=== PATIENT | female | born 1965 | race Caucasian/White ===

== ENCOUNTER 2020-07-30 09:06 | Observation (INO) | payer MEDICAID, SELFPAY ==
[2020-07-30] VITALS (8 sets, daily range): BP systolic 132–158; BP diastolic 55–71; PULSE 69–84; RESP 14–18; TEMP 36.7–36.9; O2SAT 92–98; BMI 31.3; BMI 30.4; BMI 30.5
--- NOTE | 2020-07-30 09:15 | RAD_ITS ---
STUDY: X-RAY - LEFT FOOT CLINICAL: Female, 55 years old. LEFT ANKLE INJURY FROM LAST NIGHT. TECHNIQUE: 3 view(s) of the foot. COMPARISON: None. FINDINGS: Normal talus, calcaneus, and tarsal bones. Normal visualized subtalar, talonavicular, calcaneocuboid, tarsal and tarsometatarsal articulations. Normal metatarsi. Normal metatarsophalangeal joint of the great toe. Normal tibial and fibular sesamoid bones. Normal interphalangeal joint of the great toe. Normal phalanges of the great toe. Normal second through fifth metatarsophalangeal joints. Normal interphalangeal joints and phalanges of the lesser toes. The soft tissue structures are unremarkable. RAD/Foot min 3 Views IMPRESSION: Normal x-ray examination of the foot. Electronically Signed: Esteban Ellison MD at 10:34 EDT Tel , Service support ,
--- NOTE | 2020-07-30 09:15 | RAD_ITS ---
STUDY: X-RAY - LEFT ANKLE REASON FOR EXAM: Female, 55 years old. LEFT ANKLE INJURY FROM LAST NIGHT. TECHNIQUE: 3 view(s) of the ankle. COMPARISON: None. FINDINGS: Acute nondisplaced oblique fracture the distal left fibula the level tibial plafond with surrounding soft tissue swelling. Acute distracted fracture of the medial malleolus the tibia. Normal tibiotalar articulation and ankle mortise. Normal visualized talus and calcaneus. The visualized subtalar, talonavicular, calcaneocuboid and tarsal articulations are normal. The soft tissue structures are unremarkable. RAD/Ankle min 3 Views IMPRESSION: Acute fractures of the distal left fibula the tibial plafond and the medial malleolus the tibia. Electronically Signed: Esteban Ellison MD at 10:35 EDT Tel , Service support ,
--- NOTE | 2020-07-30 10:47 | ED.VISSUMM ---
"- ER Visit Summary Date of Service: 07/30/20 Chief Complaint: [] History of Present Illness: The patient is a 55 F [] Physical Examination: [] Test Results: [] Emergency Department Course and Treatment: [] Treatment Plan: [] Disposition: [] Impression: [] This note was generated with [employer] dictation software. It may contain incorrect words, spelling, and punctuation that were not noted in review of the chart prior to signing ED Disposition - Plan for ED Patient: Referrals: Geovani Mancia MD [Primary Care Provider] -"
[2020-07-30] MEDS: Morphine 4 MG/ML Syringe IV (11:14)
[2020-07-30] MEDS: Ondansetron 4 MG/2 ML Vial IV (11:15)
--- NOTE | 2020-07-30 11:54 | PCM.HP.STD ---
Problem List (1) COPD Status: Chronic (2) Anxiety and depression Status: Chronic (3) Dyslipidemia Status: Chronic (4) Hypertension Status: Chronic (5) Acute left ankle fracture Status: Acute History of Present Illness Date of Admission: 07/30/20 Chief Complaint: Fall and left ankle fracture The patient is a 55 year old F with history of multiple comorbidities as mentioned above was brought in to ER after she fell down last night and had left ankle injury. She felt her legs gave out and she fell down. She does not remember exact position of her leg or ankle at the time of injury. Complained of severe pain and was given 100 mg IV fentanyl by EMS. In ER she had 4 mg of IV morphine. X-ray shows of left ankle shows acute fracture of distal left fibula and the medial malleolus of ankle but ankle mortise and tibiotalar articulation is intact and normal. Normal x-ray of the foot. Triage her blood pressure was noted high 158/65 but heart rate controlled. Blood work in the ED shows hyponatremia 131 which is chronic as per the patient. She is on carbamazepine and Keppra which can likely cause hyponatremia and SIADH. She was also tested negative for COVID-19 recently in [place] ER when she was evaluated for nausea and mild vomiting and hyponatremia. [] Past Medical History Past Medical History (Chronic Problems): Chronic Problems COPD (Chronic) Anxiety and depression (Chronic) Dyslipidemia (Chronic) Hypertension (Chronic) Allergies cefuroxime [From Ceftin] Allergy (Verified 07/30/20 09:11) Hives bupropion [From Wellbutrin] Adverse Reaction (Verified 07/30/20 09:11) NEEDS FOLLOW-UP SEIZURES codeine Adverse Reaction (Verified 07/30/20 09:11) Upset Stomach cyclobenzaprine [From Flexeril] Adverse Reaction (Verified 07/30/20 09:11) NEEDS FOLLOW-UP SEIZURES risperidone [From Risperdal] Adverse Reaction (Verified 07/30/20 09:11) NEEDS FOLLOW-UP SEIZURES Home Medications: Ambulatory Orders Medication Instructions Recorded Albuterol IH (ProAir) [Proair Hfa] 2 puff INHALATION Q6H PRN PRN 07/30/20 Amlodipine [Norvasc] 10 mg PO DAILY 07/30/20 Atorvastatin Calcium [Lipitor] 80 mg PO DAILY 07/30/20 Carbamazepine [Tegretol] 200 mg PO BID 07/30/20 Cyanocobalamin (Vitamin B-12) 1,000 mcg PO DAILY 07/30/20 [Vitamin B-12] Ergocalciferol [Vitamin D] 50,000 unit PO QWEEK 07/30/20 Escitalopram Oxalate [Lexapro] 20 mg PO DAILY 07/30/20 Fluticasone/Salmeterol [Advair 1 puff INHALATION BID 07/30/20 250-50 Diskus] Hydroxyzine Pamoate 25 mg PO DAILY 07/30/20 Ipratropium/Albuterol Sulfate 3 ml INHALATION Q6H PRN PRN 07/30/20 [Duoneb] Levetiracetam [Keppra] 1,000 mg PO BID 07/30/20 Lisinopril [Zestril] 10 mg PO BID 07/30/20 Omeprazole 40 mg PO BID 07/30/20 Perphenazine 2 mg PO QHS 07/30/20 Smoking Status: Current every day smoker - since teen age, 12 years of age. - *Family History Paternal History Items: No pertinent history Review of Systems Constitutional: Denies: Chills, Fever, Weight Change HEENT: Denies: Head Aches, Sinus Congestion, Sinus Drainage Cardiovascular: Denies: Chest Pain, Palpitations Respiratory: Denies: Cough, Shortness of breath at rest, Sputum production Gastrointestinal: Denies: Abdominal Pain, Nausea, Vomiting Genitourinary: Denies: Dysuria Musculoskeletal: Reports: Back Pain, Joint Pain. Denies: Joint Tenderness Skin: Denies: Rash, Wounds Neurological: Reports: Balance problems - Chronic balance problem after back surgery, Incoordination. Denies: Focal weakness, Numbness, Tingling Psychiatric: Denies: Anxiety, Depression, Homicidal Ideations, Suicidal Ideations Hematologic/ Lymphatic: Denies: Easy Bruising, Easy Bleeding VTE Information - Inpt Only VTE Present on Admission: No VTE Mechan Device Prophylaxis: None VTE Pharm Prophylaxis ordered?: Yes Patient Problems: Active and Suspected Problems Acute left ankle fracture (Acute) - Physical Exam Vitals/I&O's: Vital Signs Temp Pulse Resp BP Pulse Ox 98.5 F 73 18 158/65 H 98 07/30/20 09:07 07/30/20 09:07 07/30/20 09:07 07/30/20 09:07 07/30/20 09:07 Weight: 160 lb 7.944 oz Body Mass Index (BMI) 31.3 General: Alert, Oriented x3, Cooperative HEENT: Atraumatic, PERRLA, EOMI, Normocephalic Neck: Supple, No JVD, Negative Carotid Bruits Lungs: Clear to auscultation, Normal air movement Cardiovascular: Regular rate, Regular Rhythm, Normal S1, Normal S2, No murmurs Abdomen: Bowel Sounds Present, Soft, Non Tender, Non-Distended, - - : No suprapubic or bilateral renal angle tenderness. Denies dysuria or new lower urinary tract symptoms. Chronic stress incontinence Extremities: No edema, Capillary Refill Less than 3 Seconds Skin: No rashes, No breakdown Musculoskeletal: Arthritic Changes, Tenderness - Tenderness and swelling of left ankle region. Jimmy wrap bandage applied, - - Status post 3 lumbar spine surgery with a spinal fusion Neurological: Cranial nerves II-XII grossly intact Psych/Mental Status: Normal Affect, Appropriate Assessment/Plan All Active Problems Acute left ankle fracture (Acute) The patient is a 55 year old F with history of multiple comorbidities as mentioned above was brought in to ER after she fell down last night and had left ankle injury and diagnosed acute fracture left distal fibula as per the x-ray. 1. Acute fracture of left distal fibula and medial malleolus of ankle most likely pathological from osteoporosis with trivial fall: Patient is being admitted on MedSurg floor. IV fluid normal saline. Pain control. ER physician talked to Dr. Nelson and he said she will be seen by animal control specialist Dr. Jose Chopra. Further care as per animal control specialist. 2. Hypertension: Blood pressure was elevated in ER probably secondary to pain but currently is controlled at 132/66. Continue lisinopril 3. Dyslipidemia: On atorvastatin 80 mg daily. 4. COPD: Patient never had PFT but carries a diagnosis of COPD from PCP. She is on Advair and DuoNeb nebulization at home. Does not use oxygen or BiPAP machine. 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 5. 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 Fluid restriction to 1500 mL. 6. Chronic seizure disorder, exact type, severity and duration unclear: Continue carbamazepine and Keppra. 7. Anxiety/depression, bipolar disorder: Patient is on perphenazine, hydroxyzine VTE prophylaxis: Lovenox 40 mg subcu daily Living will/advanced directive/end of life care: Patient does not have living will or advanced directive. After discussion of procedures involved with full code, DNR CC arrest and DNR CC, the patient opted for full code. Patient does want artificial life support including intubation, tube feed, ventilator and/chest compression, central venous catheter, vasopressor and DC shock if needed Full code. Total time spent in [id number] encounter in discussion of advanced directive 16 minutes. Clinical Impression(s) from Imaging Studies Ankle X-Ray 07/30/20 09:15 IMPRESSION: Acute fractures of the distal left fibula the tibial plafond and the medial malleolus the tibia. Foot X-Ray 07/30/20 09:15 IMPRESSION: Normal x-ray examination of the foot. Inpatient E&M: 50283 Init Hosp L3 Procedures: 15838 Advncd Care Plan 30 Min
[2020-07-30 12:16] LABS: Absolute Lymphocyte Count 2.37 X10^3/uL (0.83-4.51); Absolute Neutrophil Count 6.4 X10^3/uL (2.0-7.7); Basophil# 0.03 X10^3/uL; Basophil% 0.3 % (0-1); Eosinophil# 0.05 X10^3/uL; Eosinophils% 0.5 % (0-5); Hematocrit 36.1 % (37-47); Hemoglobin 12.4 g/dL (12.0-15.0); Lymphocyte # 2.37 X10^3/ul (4.0); Lymphocyte % 25.1 % (19-41); Mean Corp Hgb Conc 34.3 g/dL (32-36); Mean Corpuscular Hgb 34.4 pg (27.0-32.0); Mean Corpuscular Volume 100.3 fL (81-99); Mean Platelet Vol. 8.9 fl (6.2-12.0); Monocyte# 0.54 X10^3/uL; Monocyte% 5.7 % (0-10); NRBC Flagged by Analyzer 0 % (0-5); Neutrophil # 6.42 X10^3/uL (2.7-7.7); Platelet Count 220 K/mm3 (150-450); RBC Distribution Width CV 11.8 % (11.6-14.6); RBC Distribution Width SD 43.5 fl (35.1-43.9); White Blood Count 9.5 K/mm3 (4.4-11.0)
[2020-07-30 12:30] LABS: Anion Gap 5 (5-15); BUN 8 mg/dL (7-18); BUN/Creat Ratio 16.2 RATIO (10-20); Calcium,Total 8.5 mg/dL (8.5-10.1); Chloride 100 mmol/L (98-107); EST Glomerular Filtration Rate 137 mL/min (>60); Est Glom Filt Rate - Afr Amer 165 mL/min (>60); Estimated Creatinine Clearance 89.17 ml/min; Glucose 87 mg/dL (74-106); Magnesium 1.8 mg/dL (1.6-2.6); Potassium 3.8 mmol/L (3.5-5.1); Sodium Level 131 mmol/L (136-145)
[2020-07-30] MEDS: oxyCODONE 5 MG Tablet PO ×2 (13:09→17:00)
[2020-07-30] MEDS: 0.9% Normal Saline 1,000 ML 75 ML IV (13:39)
[2020-07-30] MEDS: Enoxaparin 40 MG/0.4 ML Syringe SC (13:42)
[2020-07-30] MEDS: 0.9% Saline Lock 10 ML Syringe IV (13:43)
--- NOTE | 2020-07-30 15:11 | CT_ITS ---
CT of the left ankle without contrast INDICATION: Ankle injury, ankle pain, trimalleolar fracture. COMPARISON: X-ray 07/30/2020 TECHNIQUE: Multiple thin section axial CT images of the left ankle were obtained without the ministration of intravenous contrast and filmed in soft tissue and bone windows. Furthermore, multiple sagittal and coronal reconstructions were performed. Dose limiting techniques were utilized. No abnormal soft tissue mass, lymphadenopathy, fluid collection. Lateral soft tissue swelling. Slight lateral subluxation of the tibiotalar joint with an acute slightly laterally displaced oblique fracture of the distal fibula at the level tibial plafond and an acute slightly laterally displaced transverse fractures of the medial malleolus the tibia. Associated nondisplaced oblique fracture through the posterior malleolus the tibia. IMPRESSION: Trimalleolar fracture as described above. Electronically Signed: Esteban Ellison MD at 17:04 EDT Tel , Service support , CT/Extremity Lower without Contra
--- NOTE | 2020-07-30 15:14 | PCM.CONS.GEN ---
Reason for Consult Date of Consultation: 07/30/20 Reason for Consultation: Left ankle trimalleolar fracture History of Present Illness: The patient is a 55 year old F with past medical history significant of COPD, hypertension, hyperlipidemia, anxiety, who was at home on the evening of July 29, 2020. Unfortunately, patient states that she does have a history of losing her balance and falling. Patient did lose her balance and fall, twisting her left ankle. Patient states that while she was on the ground, she did not notice any pain in her left ankle. Patient did not lose consciousness, and did not hit her head. As patient was attempting to get up, she placed weight on her left ankle. At that time, she heard a crack , and felt immediate pain in her left ankle. Patient did not notice a deformity of her left ankle at that time. Patient was unable to bear weight due to the pain. Patient remained nonweightbearing, but stayed home to see if her symptoms would improve. Upon waking up in the morning today, July 30, 2020, patient noticed increased pain of her left ankle, and was unable to bear weight. She was then brought to the emergency department by her . At that time, x-rays were taken, revealing a left ankle fracture. A reduction was performed in the emergency department at that time, patient was placed in a posterior splint. Patient was then admitted for further evaluation. I was then consulted for evaluation of the left ankle and furthering of treatment plan. [] Past Medical History Past Medical History (Chronic Problems): Chronic Problems COPD (Chronic) Anxiety and depression (Chronic) Dyslipidemia (Chronic) Hypertension (Chronic) Allergies cefuroxime [From Ceftin] Allergy (Verified 07/30/20 09:11) Hives bupropion [From Wellbutrin] Adverse Reaction (Verified 07/30/20 09:11) NEEDS FOLLOW-UP SEIZURES codeine Adverse Reaction (Verified 07/30/20 09:11) Upset Stomach cyclobenzaprine [From Flexeril] Adverse Reaction (Verified 07/30/20 09:11) NEEDS FOLLOW-UP SEIZURES risperidone [From Risperdal] Adverse Reaction (Verified 07/30/20 09:11) NEEDS FOLLOW-UP SEIZURES Home Medications: Ambulatory Orders Medication Instructions Recorded Albuterol IH (ProAir) [Proair Hfa] 2 puff INHALATION Q6H PRN PRN 07/30/20 Amlodipine [Norvasc] 10 mg PO DAILY 07/30/20 Atorvastatin Calcium [Lipitor] 80 mg PO DAILY 07/30/20 Carbamazepine [Tegretol] 200 mg PO BID 07/30/20 Cyanocobalamin (Vitamin B-12) 1,000 mcg PO DAILY 07/30/20 [Vitamin B-12] Ergocalciferol [Vitamin D] 50,000 unit PO QWEEK 07/30/20 Escitalopram Oxalate [Lexapro] 20 mg PO DAILY 07/30/20 Fluticasone/Salmeterol [Advair 1 puff INHALATION BID 07/30/20 250-50 Diskus] Hydroxyzine Pamoate 25 mg PO DAILY 07/30/20 Ipratropium/Albuterol Sulfate 3 ml INHALATION Q6H PRN PRN 07/30/20 [Duoneb] Levetiracetam [Keppra] 1,000 mg PO BID 07/30/20 Lisinopril [Zestril] 10 mg PO BID 07/30/20 Omeprazole 40 mg PO BID 07/30/20 Perphenazine 2 mg PO QHS 07/30/20 Psychiatric History: Anxiety Lives: Spouse/ Significant Other Smoking Status: Heavy Smoker (>10/day) - smokes 1 pack per day for 43 years Alcohol: Occasional Drugs: None Review of Systems Constitutional: Denies: Anorexia, Chills, Fever, Night Sweats Eyes: Denies: Blurred vision, Cataracts HEENT: Denies: Difficulty Hearing, Difficulty Swallowing Cardiovascular: Denies: Chest Pain, Chest Pressure Respiratory: Reports: Cough, Shortness of breath upon exertion. Denies: Hemoptysis, Shortness of Breath, Shortness of breath at rest Gastrointestinal: Denies: Abdominal Pain, Constipation Genitourinary: Denies: Dysuria, Frequency Musculoskeletal: Reports: Joint Pain - admits to left ankle pain and swelling Skin: Denies: Dryness, Jaundice Neurological: Reports: Balance problems Psychiatric: Reports: Anxiety Endocrine: Denies: Change in Body Habitus, Heat/ Cold Intolerance, Polydipsia, Polyuria Patient Problems: Active and Suspected Problems Acute left ankle fracture (Acute) Subjective: Patient seen at bedside at this time. Patient admits to pain in left ankle, controlled by medications. Patient denies any other acute complaints at this time. Patient denies any other areas of bodily injury. Currently, patient denies fever, chills, nausea, vomiting, shortness of breath, chest pain. Patient denies left calf pain. Objective: Lower extremity physical exam: Dressing and splint are clean, dry, intact to the left lower extremity. Foot and ankle appear in a rectus position underneath the tibia at this time. Vascular: A weakly palpable dorsalis pedis and posterior tibial pulse was present of the left lower extremity. Capillary fill time is less than 3 seconds all digits of the left foot. Temperature gradient is within normal limits and comparable to the contralateral side. Significant nonpitting edema noted in the medial lateral aspects of the left ankle starting at the level of the ankle joint extending distally to the dorsal aspect of the midfoot. Loss of skin lines noted. No other areas of edema noted. Dermatological: Skin envelope is intact at this time to the left lower extremity. No evidence of open lesions noted. No evidence of fracture blisters noted. Significant nonpitting edema present. Ecchymosis noted on the medial and lateral aspects of the left ankle. Neurological: Gross and protective sensation is intact to the left lower extremity at this time. Musculoskeletal: Muscle strength was deferred at this time. Foot and ankle appear in a rectus position at this time and underneath the tibia. Negative Homans sign of the left lower extremity. Negative Acosta sign of the left lower extremity. Positive tenderness upon palpation and compression of the lateral aspect of the left ankle in the area of the lateral malleolus. Positive tenderness to palpation and compression of the medial aspect the left ankle near the medial malleolus. Positive tenderness upon palpation and compression of the posterior aspect of the left ankle in the area of the posterior malleolus. Achilles tendon feels intact at this time with no evidence of gapping noted. All tendon groups feel intact at this time. No pain upon palpation and compression of the proximal fibular head and neck. Proximal tibia fibular squeeze test does not elicit pain in the left ankle joint. Positive pain upon palpation and compression of the syndesmosis of the left ankle. No pain upon palpation and compression of the tarsometatarsal joint of the left foot. No pain upon palpation or compression of the styloid process of the fifth metatarsal left foot. Metatarsal phalangeal joint range of motion is intact and pain-free. No pain upon palpation or compression of the left calcaneus. Negative lateral squeeze test of the left calcaneus. No other areas of tenderness noted of the left lower extremity besides the left ankle. - Physical Exam Vitals/I&O's: Vital Signs Temp Pulse Resp BP Pulse Ox 98.5 F 70 16 132/66 H 96 07/30/20 12:35 07/30/20 12:35 07/30/20 13:00 07/30/20 12:35 07/30/20 13:00 Oxygen Delivery Method Room Air Weight: 70.8 kg Body Mass Index (BMI) 30.4 General: Alert, Oriented x3, Cooperative HEENT: Atraumatic, PERRLA Oral: Moist Mucosa Neck: Supple, No JVD Lungs: Clear to auscultation, Normal air movement, No rhonchi, No rales, Wheezes Cardiovascular: Regular rate, Regular Rhythm, Normal S1, Normal S2 Abdomen: Bowel Sounds Present, Soft, Non Tender, Non-Distended Extremities: No Calf Tenderness, Diminished Peripheral Pulses Skin: - - Globe is intact at this time the left lower extremity Musculoskeletal: Tenderness - Upon palpation and compression of the left ankle. Neurological: Sensory exam intact to light touch and pain Psych/Mental Status: Alert and oriented to time, place, person, mood and affect Laboratory Results 07/30/20 12:06: WBC 9.5, RBC 3.60 L, Hgb 12.4, Hct 36.1 L, MCV 100.3 H, MCH 34.4 H, MCHC 34.3, RDW Std Deviation 43.5, RDW Coeff of Sanju 11.8, Plt Count 220, MPV 8.9, Immature Gran % (Auto) 0.400, Neut % (Auto) 68.0, Lymph % (Auto) 25.1, [place] % (Auto) 5.7, Eos % (Auto) 0.5, Baso % (Auto) 0.3, Absolute Neuts (auto) 6.4, Absolute Lymphs (auto) 2.37, Nucleated RBC % 0 07/30/20 12:06: Sodium 131 L, Potassium 3.8, Chloride 100, Carbon Dioxide 26.0, Anion Gap 5, BUN 8, Creatinine 0.50 L, Estim Creat Clear Calc 89.17, Est GFR (MDRD) Af Amer 165, Est GFR (MDRD) Non-Af 137, BUN/Creatinine Ratio 16.2, Glucose 87, Calcium 8.5, Magnesium 1.8 TUDY: X-RAY - LEFT FOOT CLINICAL: Female, 55 years old. LEFT ANKLE INJURY FROM LAST NIGHT. TECHNIQUE: 3 view(s) of the foot. COMPARISON: None. FINDINGS: Normal talus, calcaneus, and tarsal bones. Normal visualized subtalar, talonavicular, calcaneocuboid, tarsal and tarsometatarsal articulations. Normal metatarsi. Normal metatarsophalangeal joint of the great toe. Normal tibial and fibular sesamoid bones. Normal interphalangeal joint of the great toe. Normal phalanges of the great toe. Normal second through fifth metatarsophalangeal joints. Normal interphalangeal joints and phalanges of the lesser toes. The soft tissue structures are unremarkable. RAD/Foot min 3 Views IMPRESSION: Normal x-ray examination of the foot. Electronically Signed: Esteban Ellison MD at 10:34 EDT Tel , Service support , STUDY: X-RAY - LEFT ANKLE REASON FOR EXAM: Female, 55 years old. LEFT ANKLE INJURY FROM LAST NIGHT. TECHNIQUE: 3 view(s) of the ankle. COMPARISON: None. FINDINGS: Acute nondisplaced oblique fracture the distal left fibula the level tibial plafond with surrounding soft tissue swelling. Acute distracted fracture of the medial malleolus the tibia. Normal tibiotalar articulation and ankle mortise. Normal visualized talus and calcaneus. The visualized subtalar, talonavicular, calcaneocuboid and tarsal articulations are normal. The soft tissue structures are unremarkable. RAD/Ankle min 3 Views IMPRESSION: Acute fractures of the distal left fibula the tibial plafond and the medial malleolus the tibia. Electronically Signed: Esteban Ellison MD at 10:35 EDT Tel , Service support , Current Medications Acetaminophen (Tylenol) 650 mg PO Q6H PRN PRN PRN Reason: HEADACHE/FEVER (T>102.5) Al Hydroxide/Mg Hydroxide (Mylanta Ii) 30 ml PO Q6H PRN PRN PRN Reason: Gastric Burning Albuterol Sulfate (Ventolin Aerosols) 2.5 mg INHALATION Q2H PRN PRN PRN Reason: Shortness of Breath/Wheezing Atorvastatin Calcium (Lipitor) 80 mg PO QHS [facility] Enoxaparin Sodium (Lovenox) 40 mg SC DAILY [facility] Last Admin: 07/30/20 13:42 Dose: 40 mg Documented by: Famotidine (Pepcid) 20 mg PO BID [facility] Hydromorphone HCl (Dilaudid Inj) 0.5 mg IV Q4H PRN PRN PRN Reason: Pain Score 6-10 Hydroxyzine Pamoate (Vistaril Pamoate Capsule) 25 mg PO DAILY [facility] Sodium Chloride () 1,000 mls @ 75 mls/hr IV .[id number] [facility] Stop: 07/31/20 01:45 Last Admin: 07/30/20 13:39 Dose: 75 mls/hr Documented by: Ibuprofen (Motrin) 400 mg PO Q4H PRN PRN PRN Reason: Pain Score 1-10/Temp > 100.7 F Nitroglycerin (Nitrostat) 0.4 mg SUBLINGUAL Q5M PRN PRN Reason: CARDIAC/CHEST PAIN Ondansetron HCl (Zofran) 4 mg IV Q8H PRN PRN PRN Reason: NAUSEA/VOMITING Oxycodone HCl (Oxyir) 5 mg PO Q4H PRN PRN PRN Reason: Pain Score 4-5 Last Admin: 07/30/20 13:09 Dose: 5 mg Documented by: Perphenazine (Perphenazine) 2 mg PO DAILY [facility] Prochlorperazine Edisylate (Compazine Iv) 5 mg IV Q4H PRN PRN PRN Reason: Breakthrough nausea/vomiting Sodium Chloride () 10 - 40 ml IV UD PRN PRN Reason: SALINE FLUSH Last Admin: 07/30/20 13:43 Dose: 10 ml Documented by: Assessment/Plan All Active Problems Acute left ankle fracture (Acute) This patient is a 55-year-old female with past medical history significant of COPD, hypertension, hyperlipidemia, anxiety, who presents today with a left ankle trimalleolar fracture. Plan: Patient chart reviewed and patient evaluated. Full discussion had with the patient about the patient's current clinical condition. Radiographs described to the patient in detail. I did discuss with the patient that she does have a significant left ankle injury, including a trimalleolar ankle fracture and likely syndesmosis injury. I discussed these terms in detail along with the nature of her condition. I did discuss to treatment options at this time. Conservative therapy would include nonweightbearing and a below the knee cast. The cast would likely be changed every 2 weeks, for a total of 12 weeks. I discussed the risks and benefits of conservative therapy, including but not limited to delayed or nonhealing bone, DVT, malunion, delayed union, decreased function of limb, continued pain, early onset arthritis. I discussed surgical intervention, which would include an open reduction with internal fixation of the left ankle trimalleolar fracture and left ankle syndesmosis. I discussed the risks and benefits of surgical intervention, including but not limited to delayed or nonhealing wounds, delayed or nonhealing bone, DVT, infection, decreased function of limb, continued pain, damage to surrounding structures, loss of limb, loss of life. All the patient's questions were answered to her satisfaction and all of her concerns were addressed. No guarantees were made as to the outcome of either conservative or surgical interventions. Patient understood all aspects of the treatment options. At this time, due to the injury that is present, I do recommend surgical intervention. I did discuss with the patient that since she is a heavy smoker, she will be an even higher risk of postoperative complications. Patient displayed verbal understanding. At this time, patient is agreeable to surgical intervention. I instructed the patient on smoking cessation and discussed this with her in detail. I did discuss with the patient that she does have significant swelling in her left ankle joint. Due to this, we would have to delay any surgical intervention for up to 2 weeks. Patient displayed verbal understanding. At this time, a CT scan was ordered of her left ankle for preoperative planning. After verbal consent was obtained, a multilayer compressive dressing was placed over the left lower extremity. The posterior splint was reapplied to the left lower extremity and was held utilizing Jimmy bandages. Neurovascular status was assessed at the end of the application and deemed intact to left lower extremity. I would recommend that the patient remain nonweightbearing to the left lower extremity. I do recommend a physical therapy evaluation to assist her in using the walker and crutches. I also discussed with the patient that she may purchase a knee scooter to help her ambulate. I do recommend continued pain medications at this time. I do recommend DVT prophylaxis, which is at the hospitalist's discretion. I usually recommend aspirin 81 mg twice a day when the patient leaves the hospital. I recommend that the dressing to the left lower extremity remain clean, dry, intact and the follow-up with me in the office. I recommend that ice be placed around the left knee 30 minutes every hour as needed and that the patient continue to elevate her left foot above the level of heart heart. I do recommend the patient follow-up with me in the [place] office on August 04. Preoperative EKG and chest x-ray were ordered for the patient to assess her ability to tolerate the anesthesia. I would ask if the hospitalist would assess her blood work, preoperative EKG, and preoperative chest xray, and comment on medical clearance for surgical intervention that would be performed in approximately 2 weeks. Thank you very much to the medical team for managing this patient. No immediate operative intervention is planned at this time. Surgery will be planned when patient visits me in the office if she is discharged by then. If patient is still admitted next week, I will assess her left ankle and decide on the date of operative intervention then. I will continue to follow the patient closely and update accordingly. Thank you very much for the consultation and allowing me to take part in the care of your patient. Multi Select Codes - Visit Charges Office Visit/Consults: [id number] IP Consult L3
--- NOTE | 2020-07-30 17:40 | RAD_ITS ---
STUDY: X-RAY CHEST REASON FOR EXAM: Female, 55 years old. preoperative eval, patient has fractured ankle from fall, to have surgery TECHNIQUE: 2 views COMPARISON: None. FINDINGS: The lungs are clear and expanded. There is no demonstrated pleural abnormality. Normal size heart. Normal mediastinum and michelle. Normal visualized pulmonary arteries. Normal visualized aortic arch and descending thoracic aorta. There are diffuse degenerative changes of the visualized thoracic spine. Anterior spinal fusion hardware at the C7-T1 level. There is no demonstrated abnormality of the visualized soft tissue structures of the upper abdomen. RAD/Chest PA and Lateral IMPRESSION: No acute cardiopulmonary findings. Negative for consolidation, focal atelectasis, pleural effusion or cardiomegaly. Electronically Signed: Saundra Stark MD at 17:58 EDT , Service support ,
[2020-07-30] MEDS: Morphine 2 MG/ML Syringe IV (19:25)
--- NOTE | 2020-07-30 21:05 | CCHN_ITS ---
Hospitalist Note Pain uncontrolled per patient report. 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 Given tolerance history, will increase morphine and oxycodone regimen, add scheduled toradol, add scheduled low dose gabapentin.
--- NOTE | 2020-07-30 21:05 | PCM.HOSP.N ---
Hospitalist Note Pain uncontrolled per patient report. 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 Given tolerance history, will increase morphine and oxycodone regimen, add scheduled toradol, add scheduled low dose gabapentin.
[2020-07-30] MEDS: oxyCODONE 5 MG Tablet 10 MG PO (21:21)
[2020-07-30] MEDS: Pantoprazole Sodium 40 MG Tablet PO (22:23)
[2020-07-30] MEDS: Lisinopril 10 MG Tablet PO (22:25)
[2020-07-30] MEDS: carBAMazepine 200 MG Tablet PO (22:25)
[2020-07-30] MEDS: Ketorolac 30 MG/ML Syringe IV (22:25)
[2020-07-30] MEDS: levETIRAcetam 1,000 MG Tablet 1000 MG PO (22:25)
[2020-07-30] MEDS: Budesonide Respules 0.5 MG/2 ML AMPUL.NEB. INHALATION (22:47)
[2020-07-30] MEDS: Albuterol 2.5 MG/3 ML VIAL.NEB. INHALATION (22:47)
[2020-07-30] MEDS: Morphine 2 MG/ML Syringe 4 MG IV (23:10)
[2020-07-31] MEDS: ALPRAZolam 0.5 MG Tablet 1 MG PO (00:35)
[2020-07-31] MEDS: oxyCODONE 5 MG Tablet 10 MG PO ×2 (03:33→09:23)
[2020-07-31 03:40] VITALS: BP 131/55; PULSE 66; RESP 18; TEMP 37.3; O2SAT 95
[2020-07-31] MEDS: Ketorolac 30 MG/ML Syringe IV ×2 (05:24→13:13)
[2020-07-31] MEDS: Morphine 2 MG/ML Syringe 4 MG IV ×2 (05:58→11:05)
--- NOTE | 2020-07-31 06:00 | EKG12_ITS ---
Test Reason : PRE-OP Blood Pressure : / mmHG Vent. Rate : 058 BPM Atrial Rate : 058 BPM P-R Int : 192 ms QRS Dur : 090 ms QT Int : 402 ms P-R-T Axes : 058 035 037 degrees QTc Int : 394 ms Sinus bradycardia Otherwise normal ECG No previous ECGs available Confirmed by ANIBAL KENT, STEPHEN ([id number]), editorial specialist HELADIO MARIN ([id number]) on 08/05/2020 11:42:28 AM Referred By: DR SALGADO Confirmed By:XAVI BARNETT MD
[2020-07-31] MEDS: Albuterol 2.5 MG/3 ML VIAL.NEB. INHALATION (06:56)
[2020-07-31] MEDS: Budesonide Respules 0.5 MG/2 ML AMPUL.NEB. INHALATION (06:57)
[2020-07-31 07:00] VITALS: PULSE 58; RESP 12; O2SAT 90
[2020-07-31 08:59] LABS: Anion Gap 5 (5-15); BUN 7 mg/dL (7-18); BUN/Creat Ratio 16.4 RATIO (10-20); Calcium,Total 8.6 mg/dL (8.5-10.1); Chloride 108 mmol/L (98-107); Creatinine, Serum 0.43 mg/dL (0.55-1.02); EST Glomerular Filtration Rate 162 mL/min (>60); Est Glom Filt Rate - Afr Amer 195 mL/min (>60); Estimated Creatinine Clearance 103.68 ml/min; Glucose 102 mg/dL (74-106); Potassium 3.3 mmol/L (3.5-5.1); Sodium Level 141 mmol/L (136-145)
[2020-07-31 09:15] LABS: Vitamin B12 829 pg/mL (211-911); Vitamin D,25 Hydroxy 74.1 ng/mL
[2020-07-31 09:16] VITALS: BP 135/61; PULSE 78; RESP 18; TEMP 36.6; O2SAT 100
[2020-07-31] MEDS: Famotidine 20 MG Tablet PO (09:24)
[2020-07-31] MEDS: hydrOXYzine PAM 25 MG Capsule PO (09:24)
[2020-07-31] MEDS: Cyanocobalamin 500 MCG Tablet 1000 MCG PO (09:24)
[2020-07-31] MEDS: Enoxaparin 40 MG/0.4 ML Syringe SC (09:24)
[2020-07-31] MEDS: levETIRAcetam 1,000 MG Tablet 1000 MG PO (09:25)
[2020-07-31] MEDS: Escitalopram Oxalate 20 MG Tablet PO (09:25)
[2020-07-31] MEDS: carBAMazepine 200 MG Tablet PO (09:25)
[2020-07-31] MEDS: amLODIPine 10 MG Tablet PO (09:25)
[2020-07-31] MEDS: Lisinopril 10 MG Tablet PO (09:25)
[2020-07-31] MEDS: Pantoprazole Sodium 40 MG Tablet PO (09:31)
[2020-07-31 10:53] LABS: Phosphorus 4.4 mg/dL (2.5-4.9)
[2020-07-31] MEDS: 0.9% Saline Lock 10 ML Syringe IV ×2 (11:05→13:13)
--- NOTE | 2020-07-31 11:30 | DCINST_ITS ---
- Discharge Diagnoses Current Active Problems: Current Active and Chronic Problems COPD (Chronic) Anxiety and depression (Chronic) Dyslipidemia (Chronic) Hypertension (Chronic) Acute left ankle fracture (Acute) You will use the following diet at home:: Cardiac, Fluid restricted (specify 2000 mls, 1500 mls) - 1500 mL, possible SIADH/isovolumic hyponatremia Your food should be the consistency of: Regular Weight Bearing Status: No weight bearing Call your doctor if you observe: Fever of 101 or Higher, Numbness or Tingling, Change in Color, Inability to urinate, Inability to have a bowel movement, Using more than one pad per hour, Shortness of breath, Dizziness, Fainting spells, Swelling in the ankles, Chest pain, Prolonged hiccoughing, Calf discomfort, Uncontrolled pain Allergies/Adverse Reactions: Allergies cefuroxime [From Ceftin] Allergy (Verified 07/30/20 09:11) Hives bupropion [From Wellbutrin] Adverse Reaction (Verified 07/30/20 09:11) NEEDS FOLLOW-UP SEIZURES codeine Adverse Reaction (Verified 07/30/20 09:11) Upset Stomach cyclobenzaprine [From Flexeril] Adverse Reaction (Verified 07/30/20 09:11) NEEDS FOLLOW-UP SEIZURES risperidone [From Risperdal] Adverse Reaction (Verified 07/30/20 09:11) NEEDS FOLLOW-UP SEIZURES Medications to take at Discharge ALPRAZolam [Xanax] 1 mg PO QHS 07/30/20 Amlodipine [Norvasc] 10 mg PO DAILY 07/30/20 Atorvastatin Calcium [Lipitor] 80 mg PO DAILY 07/30/20 Budesonide/Formoterol 160/4.5 [Symbicort 160/4.5 Mcg Inhaler (SP)] 2 puff INHALATION BID 07/30/20 Carbamazepine [Tegretol] 200 mg PO BID 07/30/20 Cyanocobalamin (Vitamin B-12) [Vitamin B-12] 1,000 mcg PO DAILY 07/30/20 Ergocalciferol [Vitamin D] 50,000 unit PO QWEEK 07/30/20 Escitalopram Oxalate [Lexapro] 20 mg PO DAILY 07/30/20 Hydroxyzine Pamoate 25 mg PO TID 07/30/20 Ipratropium/Albuterol Sulfate [Duoneb] 3 ml INHALATION Q6H PRN PRN 07/30/20 Levetiracetam [Keppra] 1,000 mg PO BID 07/30/20 Lisinopril [Zestril] 10 mg PO BID 07/30/20 Omeprazole 40 mg PO BID 07/30/20 Perphenazine 2 mg PO QHS 07/30/20 Alendronate Sodium [Fosamax] 70 mg PO Q7D@0700 #4 tab 07/31/20 The following prescriptions were given: Alendronate Sodium [Fosamax] 70 mg PO Q7D@0700 #4 tab Transmission Status: Pending to [facility] Primary Care Physician: Geovani Mancia MD [Primary Care Provider] - Please follow up with your Primary Care Physician in: in 2 weeks Test Results: Test results from this visit will be discussed in further detail at your follow- up appointment, if applicable. Please Follow Up With: Jose Chopra DPM When: on Aug 04, 2020 FOR Left ankle fracture
--- NOTE | 2020-07-31 11:35 | PCM.DC.SUM ---
Discharge Date and Diagnosis - Problem List Patient Problems: Active and Suspected Problems Acute left ankle fracture (Acute) Date of Admission: 07/30/20 Date of Discharge: 07/31/20 - Primary Discharge Diagnosis Acute Problems: Active Problems Acute left ankle fracture (Acute) - Secondary Discharge Diagnosis Chronic Problems: Chronic Problems COPD (Chronic) Anxiety and depression (Chronic) Dyslipidemia (Chronic) Hypertension (Chronic) Hospital Course and Treatment Summary of Care Provided: [] The patient is a 55 year old F with history of multiple comorbidities as mentioned above was brought in to ER after she fell down last night and had left ankle injury and diagnosed acute fracture left distal fibula as per the x-ray. 1. Preoperative management of acute fracture of left distal fibula and medial malleolus of ankle most likely pathological from osteoporosis with trivial fall: Patient is being admitted on MedSurg floor. Pain was controlled with oxycodone, morphine and Toradol. I also think she has osteoporosis as she fell from her standing height and fall was trivial therefore clinically osteoporosis. Discussed with Dr. Chopra and he agreed to give prescription for oxycodone. I talked to him and he asked to send someone to collect the prescription at the office. I relayed to the patient and her is going to collect the prescription. She might need long duration of oxycodone for pain control. Twelve-lead EKG was done shows sinus bradycardia at 54 bpm. No significant or specific changes of ST?T waves. Chest x-ray preoperative was done is negative for consolidation, focal atelectasis or pleural effusion or cardiomegaly. Patient has history of COPD and needs preop spirometry, quitting smoking/nicotine. It will be ideal if she follows with account contact associate and gets PFT. Prescription for nicotine sent. She agreed to take Fosamax and denies history of pill esophagitis or dysphagia. Advised to take Fosamax once a week with a full glass of water, 240 ounce and remained upright position for half an hour. Patient is at moderate risk for low risk ankle surgery. Continue medications. Follow-up PCP prior to surgery. 2. Hypertension: Blood pressure is controlled. Continue lisinopril 3. Dyslipidemia: On atorvastatin 80 mg daily. 4. COPD: Patient never had PFT but carries a diagnosis of COPD from PCP. She is on Advair and DuoNeb nebulization at home. Does not use oxygen or BiPAP machine. Does not follow account contact associate. She was advised to follow-up with account contact associate for PFT 5. 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 Fluid restriction to 1500 mL. 6. Chronic seizure disorder, exact type, severity and duration unclear: Continue carbamazepine and Keppra. 7. Anxiety/depression, bipolar disorder: Patient is on perphenazine, hydroxyzine VTE prophylaxis: Lovenox 40 mg subcu daily Discharge medication reconciliation done. Discharge follow-up instructions completed. Discharge process discussed with the patient and all questions were answered to patient's satisfaction. Patient was admitted as inpatient but was discharged because of sooner recovery than expected at time of admission. Total time spent, exact 35 minutes on discharge meds reconciliation, examination, coordination of care with nurses and ancillary staff, review of imaging and blood test and discussion with the patient on follow-up instructions Patient Problems: Active and Suspected Problems Acute left ankle fracture (Acute) Objective: Seen and examined. Patient has pain over left ankle. On nonweightbearing. Patient had possible respiratory arrest after Dilaudid therefore it was discontinued yesterday. Patient pain is controlled on oxycodone, morphine and Toradol. Physical exam General: Alert, Oriented x3, Cooperative HEENT: Atraumatic, PERRLA, EOMI, Normocephalic Neck: Supple, No JVD, Negative Carotid Bruits Lungs: Air entry severely diminished in both lungs. No crepitation/rhonchi. No hypoxia or tachypnea. Cardiovascular: Regular rate, Regular Rhythm, Normal S1, Normal S2, No murmurs Abdomen: Bowel Sounds Present, Soft, Non Tender, Non-Distended, : No suprapubic or bilateral renal angle tenderness. Denies dysuria or new lower urinary tract symptoms. Chronic stress incontinence Extremities: No edema, Capillary Refill Less than 3 Seconds Skin: No rashes, No breakdown Musculoskeletal: Arthritic Changes, Tenderness and swelling of left ankle region. Jimmy wrap bandage applied Back: Status post 3 lumbar spine surgery with a spinal fusion Neurological: Cranial nerves II-XII grossly intact Psych/Mental Status: Normal Affect, Appropriate - Physical Exam Vitals/I&O's: Vital Signs Temp Pulse Resp BP Pulse Ox 97.9 F 78 18 135/61 H 100 07/31/20 09:16 07/31/20 09:16 07/31/20 09:16 07/31/20 09:16 07/31/20 09:16 Oxygen Delivery Method Room Air Weight: 156 lb 1.396 oz Body Mass Index (BMI) 30.4 Intake and Output for Last 24 Hours 07/29/20 07/30/20 07/31/20 23:59 23:59 23:59 Intake Total 1550 / 1550 Output Total 500 / 1300 1000 / 1000 Balance -500 / -1000 550 / 550 Laboratory Results 07/30/20 12:06: WBC 9.5, RBC 3.60 L, Hgb 12.4, Hct 36.1 L, MCV 100.3 H, MCH 34.4 H, MCHC 34.3, RDW Std Deviation 43.5, RDW Coeff of Sanju 11.8, Plt Count 220, MPV 8.9, Immature Gran % (Auto) 0.400, Neut % (Auto) 68.0, Lymph % (Auto) 25.1, Wetzel % (Auto) 5.7, Eos % (Auto) 0.5, Baso % (Auto) 0.3, Absolute Neuts (auto) 6.4, Absolute Lymphs (auto) 2.37, Nucleated RBC % 0 07/30/20 12:06: Sodium 131 L, Potassium 3.8, Chloride 100, Carbon Dioxide 26.0, Anion Gap 5, BUN 8, Creatinine 0.50 L, Estim Creat Clear Calc 89.17, Est GFR (MDRD) Af Amer 165, Est GFR (MDRD) Non-Af 137, BUN/Creatinine Ratio 16.2, Glucose 87, Calcium 8.5, Magnesium 1.8 07/31/20 08:18: Sodium 141, Potassium 3.3 L, Chloride 108 H, Carbon Dioxide 28.0, Anion Gap 5, BUN 7, Creatinine 0.43 L, Estim Creat Clear Calc 103.68, Est GFR (MDRD) Af Amer 195, Est GFR (MDRD) Non-Af 162, BUN/Creatinine Ratio 16.4, Glucose 102, Calcium 8.6 07/31/20 08:18: Vitamin B12 829, Vitamin D 25-Hydroxy 74.1 07/31/20 08:18: Phosphorus 4.4 Current Medications Acetaminophen (Tylenol) 650 mg PO Q6H PRN PRN PRN Reason: HEADACHE/FEVER (T>102.5) Al Hydroxide/Mg Hydroxide (Mylanta Ii) 30 ml PO Q6H PRN PRN PRN Reason: Gastric Burning Albuterol Sulfate (Ventolin Aerosols) 2.5 mg INHALATION Q2H PRN PRN PRN Reason: Shortness of Breath/Wheezing Albuterol Sulfate (Ventolin Aerosols) 2.5 mg INHALATION Q6HWA.RT [facility] Last Admin: 07/31/20 06:56 Dose: 2.5 mg Documented by: Alendronate Sodium (Fosamax) 70 mg PO Q7D@0700 [facility] Alprazolam (Xanax) 1 mg PO QHS [facility] Last Admin: 07/31/20 00:35 Dose: 1 mg Documented by: Amlodipine Besylate (Norvasc) 10 mg PO DAILY [facility] Last Admin: 07/31/20 09:25 Dose: 10 mg Documented by: Atorvastatin Calcium (Lipitor) 80 mg PO QHS [facility] Budesonide (Pulmicort Aerosol) 0.5 mg INHALATION Q12H.RT [facility] Last Admin: 07/31/20 06:57 Dose: 0.5 mg Documented by: Carbamazepine (Tegretol) 200 mg PO BID [facility] Last Admin: 07/31/20 09:25 Dose: 200 mg Documented by: Enoxaparin Sodium (Lovenox) 40 mg SC DAILY [facility] Last Admin: 07/31/20 09:24 Dose: 40 mg Documented by: Ergocalciferol (Vitamin D) 50,000 unit PO QWEEK [facility] Escitalopram Oxalate (Lexapro) 20 mg PO DAILY [facility] Last Admin: 07/31/20 09:25 Dose: 20 mg Documented by: Famotidine (Pepcid) 20 mg PO BID [facility] Last Admin: 07/31/20 09:24 Dose: 20 mg Documented by: Hydroxyzine Pamoate (Vistaril Pamoate Capsule) 25 mg PO DAILY [facility] Last Admin: 07/31/20 09:24 Dose: 25 mg Documented by: Ketorolac Tromethamine (Toradol (Bkc)) 30 mg IV Q8 [facility] Stop: 08/01/20 06:01 Last Admin: 07/31/20 05:24 Dose: 30 mg Documented by: Levetiracetam (Keppra Tablet) 1,000 mg PO BID [facility] Last Admin: 07/31/20 09:25 Dose: 1,000 mg Documented by: Lisinopril (Zestril) 10 mg PO BID [facility] Last Admin: 07/31/20 09:25 Dose: 10 mg Documented by: Morphine Sulfate () 4 mg IV Q4H PRN PRN PRN Reason: Pain Score 6-10/10 Last Admin: 07/31/20 11:05 Dose: 4 mg Documented by: Nitroglycerin (Nitrostat) 0.4 mg SUBLINGUAL Q5M PRN PRN Reason: CARDIAC/CHEST PAIN Ondansetron HCl (Zofran) 4 mg IV Q8H PRN PRN PRN Reason: NAUSEA/VOMITING Oxycodone HCl (Oxyir) 10 mg PO Q4H PRN PRN PRN Reason: Pain Score 4-5 Last Admin: 07/31/20 09:23 Dose: 10 mg Documented by: Pantoprazole Sodium (Protonix) 40 mg PO BID [facility] Last Admin: 07/31/20 09:31 Dose: 40 mg Documented by: Perphenazine (Perphenazine) 2 mg PO DAILY [facility] Last Admin: 07/31/20 09:18 Dose: Not Given Documented by: Potassium Chloride (K-Dur) 40 meq PO Q3H [facility] Stop: 07/31/20 12:46 Last Admin: 07/31/20 11:16 Dose: 40 meq Documented by: Potassium [facility] Stop: 08/03/20 08:01 Prochlorperazine Edisylate (Compazine Iv) 5 mg IV Q4H PRN PRN PRN Reason: Breakthrough nausea/vomiting Sodium Chloride () 10 - 40 ml IV UD PRN PRN Reason: SALINE FLUSH Last Admin: 07/31/20 11:05 Dose: 10 ml Documented by: Weight Bearing Status: No weight bearing Call your doctor if you observe: Fever of 101 or Higher, Numbness or Tingling, Change in Color, Inability to urinate, Inability to have a bowel movement, Using more than one pad per hour, Shortness of breath, Dizziness, Fainting spells, Swelling in the ankles, Chest pain, Prolonged hiccoughing, Calf discomfort, Uncontrolled pain Home Medications: Medications to take at Discharge ALPRAZolam [Xanax] 1 mg PO QHS 07/30/20 Amlodipine [Norvasc] 10 mg PO DAILY 07/30/20 Atorvastatin Calcium [Lipitor] 80 mg PO DAILY 07/30/20 Budesonide/Formoterol 160/4.5 [Symbicort 160/4.5 Mcg Inhaler (SP)] 2 puff INHALATION BID 07/30/20 Carbamazepine [Tegretol] 200 mg PO BID 07/30/20 Cyanocobalamin (Vitamin B-12) [Vitamin B-12] 1,000 mcg PO DAILY 07/30/20 Ergocalciferol [Vitamin D] 50,000 unit PO QWEEK 07/30/20 Escitalopram Oxalate [Lexapro] 20 mg PO DAILY 07/30/20 Hydroxyzine Pamoate 25 mg PO TID 07/30/20 Ipratropium/Albuterol Sulfate [Duoneb] 3 ml INHALATION Q6H PRN PRN 07/30/20 Levetiracetam [Keppra] 1,000 mg PO BID 07/30/20 Lisinopril [Zestril] 10 mg PO BID 07/30/20 Omeprazole 40 mg PO BID 07/30/20 Perphenazine 2 mg PO QHS 07/30/20 Alendronate Sodium [Fosamax] 70 mg PO Q7D@0700 #4 tab 07/31/20 Following Prescriptions Were Given to Patient: Alendronate Sodium [Fosamax] 70 mg PO Q7D@0700 #4 tab Transmission Status: Pending to [facility] Primary Care Physician: Geovani Mancia MD [Primary Care Provider] - Please follow up with your Primary Care Physician in: in 2 weeks Please Follow Up With: Jose Chopra DPM When: on Aug 04, 2020 FOR Left ankle fracture Medical Necessity - Tobacco Use Smoking Status: Heavy Smoker (>10/day) - smokes 1 pack per day for 43 years Meaningful Use Info Meaningful Use Diagnoses (Choose all that apply): None applicable Inpatient E&M: [id number] [facility]
--- NOTE | 2020-07-31 12:47 | NURSING ---
RN CM Assessment Introduced role of RN CM to patient and patient at bedside. Patient is alert, oriented and able to participate in RN CM Assessment. Care providers, pharmacy, and demographics verified. Admit Dx: Left Ankle Fx Re-Admit: No Barriers/Issues: PT evaluation done and recommends additional therapy. Discussed HH PT and outpatient PT. Patient declines PT at this time and states that there is no way that she can do any therapy with her current pain. Discussed with patient about speaking with her doctor about appropriate pain control, also discussed importance of moving to keep from muscle wasting on other parts of her body. Discussed to f/u with her provider and if she changes her mind regarding PT to discuss with her provider to place referral. Patient son is going to come over and assist patient's with getting her into the house. States that she will be ok navigating with her Rollator and family assistance. PCP: Geovani Mancia Specialists: Psych- Dr Price Preferred Pharmacy: [facility] if in hospital otherwise [facility] Insurance: [facility] Rx Benefit: Yes LNOK: Alec Ha LW/HPOA: None, declines offered resources or completion on this admission. Aware can return to complete as an outpatient. Living Arrangements: Lives with her in a [facility], 3 steps to enter home with no grab bars. ADL?s: Ambulates with a cane at baseline, Independent with ADLs. Transportation: DME: Rollator, cane, Shower chair HHC: None SNF: None Goal: Home and denies HH PT or Outpatient PT at this time per PT recommendation. Denies any other issues, concerns, or needs with DC planning at this time. Aware RNCM remains available for any emerging needs. DC PLAN: Home. ALBERT Bardales
--- NOTE | 2020-08-01 20:43 | ED.VISSUMM ---
- ER Visit Summary Date of Service: 08/01/20 Chief Complaint: [Fall and left ankle injury] History of Present Illness: The patient is a 55 F [presents to the emergency department after a fall yesterday. Patient states that sometimes her legs give out and she just falls. Patient injured her left ankle and was unable to bear weight afterwards. Patient states that at times she can walk on her own but sometimes uses a cane. Patient denies any other injuries. She has history of hypertension and high cholesterol. Patient had prior back surgery. Patient is a smoker.] Physical Examination: [HEENT-PERRLA, EOMI. Cranial nerves II through XII grossly intact. TMs clear. Mucous membranes moist. No adenopathy. Cardiovascular-regular rate and rhythm without murmur or ectopy Lungs-clear to auscultation, chest wall stable without crepitus or subcu emphysema Abdomen-normoactive bowel sounds, soft, nontender, no rebound or rigidity, no peritoneal signs. Extremities-intact ?4, normal range of motion, normal pulses. Left ankle-patient has diffuse soft tissue swelling about the ankle with ecchymosis and bruising over the area of the lateral malleolus. Patient has tenderness to medial and lateral malleolus. No pain at the proximal fibular head. No pain at the base of the fifth metatarsal. Neurovascularly intact.] Test Results: [X-rays of the left ankle obtained showed a trimalleolar fracture. X-rays of the left foot obtained were negative.] Emergency Department Course and Treatment: [She was medicated with morphine and Zofran.] Treatment Plan: [Patient discussed with hospitalist that she will be unable to ambulate. She was discussed with orthopedic surgeon. Patient will be admitted] Disposition: [Admit] Impression: [Trimalleolar fracture of left ankle Inability to ambulate] This note was generated with Predict[employer] dictation software. It may contain incorrect words, spelling, and punctuation that were not noted in review of the chart prior to signing ED Disposition - Plan for ED Patient: Disposition: Acute Care [facility]
== END 2020-07-31 11:33 | disposition home or self-care (01) ==
LOC: ED 10:35 → PCU 07-31 07:35
PROVIDERS: Admitting Provider Internal Medicine; Emergency Provider Emergency Medicine; PCP Family Medicine; Visit Provider Internal Medicine
DX: S82.852A Displaced trimalleolar fracture of left lower leg, initial encounter for closed fracture (principal); W19.XXXA Unspecified fall, initial encounter; Y93.9 Activity, unspecified; Y92.9 Unspecified place or not applicable; Y99.9 Unspecified external cause status; J44.9 Chronic obstructive pulmonary disease, unspecified; F41.9 Anxiety disorder, unspecified; E78.5 Hyperlipidemia, unspecified; I10 Essential (primary) hypertension; Z79.899 Other long term (current) drug therapy; Z79.51 Long term (current) use of inhaled steroids; E87.1 Hypo-osmolality and hyponatremia; F31.9 Bipolar disorder, unspecified; G40.909 Epilepsy, unspecified, not intractable, without status epilepticus; F17.210 Nicotine dependence, cigarettes, uncomplicated; R00.1 Bradycardia, unspecified
CPT/HCPCS: 36415; 71046; 73610; 73630; 73700; 80048; 82306; 82607; 83735; 84100; 85025; 93005; 94640; 96361; 96372; 96374; 96375; 96376; 97162; 99218; 99251; 99285; 99406; J7030; A4216; G0378; G0463; J2405

== ENCOUNTER 2020-08-06 05:50 | Day surgery (SDC) | payer MEDICAID, SELFPAY ==
[2020-07-30 12:25] VITALS: BMI 30.4
[2020-08-06] VITALS (11 sets, daily range): BP systolic 99–141; BP diastolic 44–65; PULSE 16–82; RESP 14–18; TEMP 36.9–37.4; O2SAT 92–97; BMI 29.2
[2020-08-06 06:19] LABS: International Normalized Ratio 1.1; Prothrombin Time (Protime)PT. 13.3 SECONDS (11.7-14.9)
[2020-08-06 06:20] LABS: Partial Thromboplast Time 31.6 Seconds (24.1-36.2)
[2020-08-06] MEDS: Lactated Ringers 1,000 ML 100 ML IV ×2 (06:45→11:19)
[2020-08-06] MEDS: Vancomycin IV 1,000 MG/200 ML BAG 200 MG IV (07:11)
[2020-08-06 07:15] LABS: AST(SGOT) 37 U/L (15-37); Alanine Aminotransfer ALT/SGPT 32 U/L (13-56); Albumin, Serum 3.1 g/dL (3.2-5.0); Alkaline Phosphatase 134 U/L (45-117); Bilirubin, Direct 0.12 mg/dL (0.00-0.30); Globulin 4.5 g/dL (2.2-4.2); Potassium 3.6 mmol/L (3.5-5.1); Protein, Total 7.6 g/dL (6.4-8.2)
--- NOTE | 2020-08-06 07:35 | RAD_ITS ---
STUDY: X-RAY - LEFT ANKLE REASON FOR EXAM: ORIF left ankle fracture. TECHNIQUE: 13 intraoperative images of the ankle. COMPARISON: Radiographs 07/30/2020. FINDINGS: There is an intramedullary jaida transfixing a distal fibular fracture in anatomical alignment and position. There are 2 orthopedic screws transfixing a medial malleolar fracture in anatomical alignment and position. There is syndesmotic fixation. Electronically Signed: Otis Vargas MD at 14:32 EDT Tel , Service support , RAD/Ankle min 3 Views
--- NOTE | 2020-08-06 10:25 | DCINST_ITS ---
Discharge Diet: Light diet - advance as tolerated Discharge Activity: May Not Drive, May Not Shower, Use Walker, Use Crutches Weight Bearing Status: No weight bearing Keep extremity elevated above heart level: Left Leg Additional Activity Instructions:: 1. Keep dressing to left leg clean, dry, intact. Do not get dressing wet. Do not remove dressing. If get dressing wet, call office for further instruction. I recommend sponge bathing only at this time. Protect dressing when bathing with cast protector or plastic garbage bags and tape. 2. Ice around left knee 30 minutes every hour as needed for pain. 3. Elevate left foot above level of heart as often as possible. The more you elevate and the more you ice, the better you will feel. 4. No walking/standing/placing any pressure or weight on left foot. Use walker/crutches/wheelchair for assistance. 5. Begin taking doxycycline (antibiotic) tomorrow, August 07, 2020 twice a day as instructed. 6. Resume your Eliquis medication tomorrow, August 07, 2020 as previously instructed. 7. Begin taking oxycodone today, August 06, 2020 as instructed. You may supplement the oxycodone pain medication with extra strength Tylenol (acetaminophen). Do not take more than 3000 mg of Tylenol (acetaminophen) in a 24-hour period. 8. Follow-up with Dr. Chopra on July as previously scheduled. Please call office with any questions or concerns. Call your doctor if your incision/area has: Sudden Increased Bleeding, Increased Pain/ Swelling Call your doctor if you observe: Fever of 101 or Higher, Coldness, Increased Pain, Inability to have a bowel movement, Shortness of breath, Chest pain, Increased palpitations (irregular heartbeat), Calf discomfort, Uncontrolled pain Cleanse incision/area with: Do not get Incision Wet, Keep Dressing Clean & Dry Allergies/Adverse Reactions: Allergies cefuroxime [From Ceftin] Allergy (Verified 07/30/20 09:11) Hives bupropion [From Wellbutrin] Adverse Reaction (Verified 08/06/20 06:25) SEIZURES SEIZURES codeine Adverse Reaction (Verified 07/30/20 09:11) Upset Stomach cyclobenzaprine [From Flexeril] Adverse Reaction (Verified 08/06/20 06:25) SEIZURES SEIZURES fluoxetine [From Prozac] Adverse Reaction (Verified 08/06/20 06:25) INCREASED ANXIETY gabapentin Adverse Reaction (Verified 08/06/20 06:25) INCREASED ANXIETY, CONFUSION drowsiness nicotine [From Nicoderm CQ] Adverse Reaction (Verified 08/06/20 06:25) SEIZURES risperidone [From Risperdal] Adverse Reaction (Verified 08/06/20 06:25) SEIZURES SEIZURES TENS unit patch Allergy (Uncoded 08/04/20 12:36) Rash Medications to take at Discharge ALPRAZolam [Xanax] 1 mg PO QHS 07/30/20 Amlodipine [Norvasc] 10 mg PO DAILY 07/30/20 Atorvastatin Calcium [Lipitor] 80 mg PO DAILY 07/30/20 Budesonide/Formoterol 160/4.5 [Symbicort 160/4.5 Mcg Inhaler (SP)] 2 puff INHALATION BID 07/30/20 Carbamazepine [Tegretol] 200 mg PO BID 07/30/20 Cyanocobalamin (Vitamin B-12) [Vitamin B-12] 1,000 mcg PO DAILY 07/30/20 Ergocalciferol [Vitamin D] 50,000 unit PO QWEEK 07/30/20 Escitalopram Oxalate [Lexapro] 20 mg PO DAILY 07/30/20 Hydroxyzine Pamoate 25 mg PO TID 07/30/20 Ipratropium/Albuterol Sulfate [Duoneb] 3 ml INHALATION Q6H PRN PRN 07/30/20 Levetiracetam [Keppra] 1,000 mg PO BID 07/30/20 Lisinopril [Zestril] 10 mg PO BID 07/30/20 Omeprazole 40 mg PO BID 07/30/20 Perphenazine 2 mg PO QHS 07/30/20 Alendronate Sodium [Fosamax] 70 mg PO Q7D@0700 #4 tab 07/31/20 Apixaban [Eliquis] 2.5 mg PO BID #30 tab 07/31/20 Oxycodone [Oxyir] 5 - 10 mg PO Q6H PRN PRN 08/06/20 Primary Care Physician: Geovani Mancia MD [Primary Care Provider] - Test Results: Test results from this visit will be discussed in further detail at your follow- up appointment, if applicable. Please Follow Up With: Jose Chopra DPM When: in one week in [place] Office as previously scheduled Proposed Discharge Date: 08/06/20
--- NOTE | 2020-08-06 10:32 | OP.PCM_ITS ---
Problem List (1) Ankle syndesmosis disruption Status: Acute Qualifiers: Encounter type: initial encounter Laterality: left Qualified Code(s): S93.432A - Sprain of tibiofibular ligament of left ankle, initial encounter (2) Fracture of ankle, trimalleolar, left, closed Status: Acute Qualifiers: Encounter type: initial encounter Qualified Code(s): S82.852A - Displaced trimalleolar fracture of left lower leg, initial encounter for closed fracture Report of Operation Date of Procedure: 08/06/20 Pre-Operative Diagnosis: 1. Left ankle trimalleolar fracture, closed, displaced. 2. Left ankle joint syndesmotic disruption. #3. Nicotine dependence Post-Operative Diagnosis: Same as preoperative Surgery/Procedure Performed:: 1. Left ankle open reduction with internal fixation of trimalleolar fracture. 2. Left open reduction with internal fixation of the syndesmosis Description of Surgical Findings:: Consistent with diagnosis. Reduction of deformity is achieved and held with internal fixation. Patient is a 40+ year pack per day smoker, and her bone was soft. Due to this and the possible complications that could be had with a larger surgical incision, it was determined that the fibular intramedullary nail would be used. Internal fixation of the posterior malleolus fracture with not needed due to adequate reduction and small fragment size practice or student teacher: Julia Evans NP Type of Anesthesia:: General/Regional - With a popliteal and adductor canal block given to the left lower extremity preoperatively Anesthesiologist: Mason Mercedes Special Medications: 1 g of vancomycin given preoperatively Specimen's removed: None Drains: None Estimated Blood Loss (mL): 25 Description of Procedure: Pathology: None Anesthesia: General with a popliteal and adductor canal block in the left lower extremity preoperatively. Hemostasis: Pneumatic thigh tourniquet placed at the level of the left thigh at 120 minutes Estimated blood loss: 25 mL Materials: 1. Arthrex 3.0 mm x 130 mm left fibula lock nail. 2. Arthrex 2.7 x 12 mm cortical screws. 3. Arthrex tight rope XP. 4. Arthrex 4.0 x 40 mm cancellous short thread screw. 5. Arthrex 4.0 x 35 mm cancellous short thread screw. 6. Size 0 Vicryl. 7. Size 2-0 Vicryl. 8. Size 3-0 Vicryl. 9. Size 3-0 nylon Genitals: None Complications: Due to her long history of smoking, her bone was soft. Due to increased postoperative complications with a bigger incision and her bones not holding the internal fixation, it was determined that the intramedullary nail of the fibula would be used. Patient: Stable Indications: Patient is a 55-year-old female with multiple medical problems who suffered a left ankle injury while at home on the evening of July 29, 2020. Patient does have a history of losing her balance and seizures, and states that she did lose her balance at that time. She did fall awkwardly on her left ankle, causing pain. She did hear a crack as well. Patient felt the pain in the ankle, but did not notice a deformity and did not seek medical attention until the next morning, July 30, 2020. At that time, she presented to the [facility] emergency department for further evaluation and with increased pain in her ankle. At that time, x-rays were taken, revealing a left ankle trimalleolar fracture with dislocation. The ankle joint was closed reduced, and patient was placed in a posterior splint. Due to abnormal blood work and her left ankle injury, she was admitted for further evaluation. I was then consulted, and saw the patient on July 30, 2020. I discussed with the patient that she does have a left ankle trimalleolar fracture with ankle joint dislocation and ligamentous injury. I discussed all these terms in detail. I discussed conservative and surgical interventions for this. Conservative therapy would include casting and a below the knee cast. I discussed the risks and benefits of conservative therapy, including but not limited to delayed or nonhealing bone, DVT, early onset arthritis, continued pain, decreased function of limb. I discussed surgical intervention with the patient, which would include an open reduction with internal fixation of the left ankle trimalleolar fracture and the left ankle syndesmosis. I discussed the risks and benefits of surgical intervention, including but not limited to delayed or nonhealing wounds, delayed or nonhealing bone, DVT, infection, decreased function of limb, continued pain, damage to surrounding structures, loss of limb, loss of life. Due to the patient's significant history of smoking, 40+ years at 1 pack/day, I discussed with her that she is an even higher risk of postoperative complications. All the patient questions were answered to her satisfaction and all of her concerns were addressed. No guarantees were made as to the outcome of the procedure. Patient understood all aspects of the procedure. Due to the deformity that was present, I recommended surgical intervention. Patient was agreeable to surgical intervention at that time. After reviewing the soft tissue of the ankle, there was significant swelling with loss of skin lines. No fracture blisters were present. Due to the swelling that was present, I determined that the surgery would need to be delayed. While the patient was an inpatient, a CT scan was ordered of her left ankle for preoperative planning along with preoperative blood work, EKG, chest x-ray. Patient was discharged on Eliquis for DVT prophylaxis. Patient stopped this Eliquis on August 03. Patient was subsequently discharged and followed up with me in the office on August 04. At that time there was a significant reduction in swelling. I then showed the patient her x-rays along with her CT scan. I discussed conservative and surgical interventions for this once again, along with the risks and benefits. Due to the patient's significant history of smoking, 40+ years at 1 pack/day, I discussed with her that she is an even higher risk of postoperative complications. All the patient questions were answered to her satisfaction and all of her concerns were addressed. No guarantees were made as to the outcome of the procedure. Patient understood all aspects of the procedure. Due to the deformity that was present, I recommended surgical intervention. Patient was agreeable to surgical intervention at that time, and consent was then signed by the patient. Surgery was planned for today, August 06, 2020. Operative report: Before the patient was brought to the operating room, I discussed the risks and benefits of surgical intervention once gain. These include but not limited to delayed or nonhealing wounds, delayed or nonhealing bone, DVT, infection, decreased function of limb, continued pain, damage to surrounding structures, loss of limb, loss of life. Due to the patient's significant history of smoking, 40+ years at 1 pack/day, I discussed with her that she is an even higher risk of postoperative complications. All the patient questions were answered to her satisfaction and all of her concerns were addressed. No guarantees were made as to the outcome of the procedure. Patient understood all aspects of the procedure, and was agreeable to proceed with the surgical intervention. Before the patient was brought to the operating room, the anesthesiologist administered a popliteal and adductor canal block to the left lower extremity. Patient was then brought to the operating room and placed on the operating table in supine position. After a timeout, once general anesthesia was obtained and the anesthesiologist took control the airway and the IV access, all pressure points were well padded. A well-padded pneumatic thigh tourniquet was placed the level of the left thigh. The left foot, ankle, leg were then scrubbed, prepped, draped in the usual sterile manner. At this time, radiograph evaluation was used to determine the distal tip of the lateral malleolus, level of the fibular fracture, distal tip of the medial malleolus, ankle joint line, syndesmosis line, and medial malleoli fracture. These were all marked on the patient. Next, the left lower extremity was elevated and exsanguinated via an Esmarch and inflation of the pneumatic thigh tourniquet was performed to 275 mmHg. Attention was then directed to the lateral aspect of the left fibula at the level of the fibular fracture. At this time, a linear longitudinal incision was made starting at the distal aspect of the level of the fibula fracture extending proximally to the proximal aspect of the fibular fracture. This incision was approximately 2 cm in length. This incision was deepened utilizing sharp and blunt dissection. Care was taken to retract all vital neural and vascular structures. All bleeders were cauterized and ligated as necessary. Next, a linear periosteal incision was made in line with the original skin incision. The periosteal and capsular structures were then reflected anteriorly and posteriorly, thus exposing the fibula fracture the operative site. At this time, a curette was used to remove any fibrous tissue contained within the surgical site. Surgical site was irrigated copious amounts of normal sterile saline. Next, a reduction was performed of the fibular fracture and this reduction was held via temporary fixation. Radiograph evaluation was then performed. The fibula fracture was noted to be reduced when compared to preoperative assessment. The fibula was noted to be out to length at this time, and the lateral ankle joint mortise was noted to be intact. Attention was then directed to a portion 2 cm distal to the distal tip of the lateral malleolus. At this time, live radiographic evaluation was used to insert the K wire for the intramedullary nail through the distal tip of the fibula extending through the midshaft of the fibula. Multiple radiographic views were used to determine the level of this K wire. Once adequate positioning of this K wire was had, a stab incision was made at the K-wire/skin junction and the reamer was used to perform reaming of the intramedullary canal of the fibula. Once adequate preparation was had of the medullary canal of the fibula, the Arthrex fibular nail was placed into the surgical site into the medullary canal of the fibula. Multiple radiographic views were used to determine exact positioning of the fibular nail. Once adequate positioning was had, this was held via temporary fixation. Stab incision were made for the distal screws, and the distal portion of the fibular nail was held utilizing the 2-0 cortical screws. Radiographic evaluation was performed to determine exact positioning of the screws and to make sure that they were contained within the fibular nail. The proximal fibular nail was held in place via the tongs that were released in standard fashion. Once adequate positioning of this nail was had, the renae for the nail was removed along with temporary fixation of the fracture. Radiograph evaluation was then performed. The fibular nail was noted to be contained within the intramedullary canal of the fibula. It was noted to not be shifted and noted to hold the fibula fracture in the correct the reduced position. The distal cortical screws noted to be well contained within the fibular nail, and the proximal tongs are noted to be released. The fibula was noted to be out to length at this time. At this time, live radiograph evaluation was used to perform the cotton and hook test to evaluate the syndesmosis. Widening at the distal syndesmosis was noted, and this was deemed to have instability. It was then determined that fixation would be needed. At this time, the K wire for the Arthrex tight rope was placed from lateral to medial through the hole of the fibular nail angle 30 degrees from posterior to anterior. This K wire was inserted into the hole of the fibula nail designed for the syndesmosis fixation. Radiograph evaluation was performed to determine exact positioning of the K wire. Once adequate positioning was had, the Arthrex tight rope was drilled in standard fashion and was inserted in standard fashion. As the Arthrex tight rope was being tightened, the foot was held in a forced dorsiflexed position with the tibia and fibular joint reduced. Once the Arthrex tight rope was sufficiently tightened, radiograph evaluation was then performed. The tibiofibular overlap was noted to be reduced when compared to preoperative assessment. Attention was then directed to the medial aspect of the left ankle near the medial malleolus. At this time, a curvilinear incision was made starting at the level of the medial malleolus fracture extending distally and anteriorly to the distal tip of the medial malleolus. The incision was approximately 1.5 cm in length. This incision was deepened utilizing sharp and blunt dissection. Care was taken to retract all vital neural and vascular structures. All bleeders were cauterized and ligated as necessary. At this time, a portion of the deltoid ligament was incised in a similar fashion to the skin incision. The deltoid ligament was then reflected anteriorly and posteriorly, thus exposing the medial malleolus fracture at the operative site. At this time, reduction of the medial malleolus fracture was had and was held in place utilizing the K wires for the cannulated screw. Radiograph evaluation was then performed. The medial malleolus fracture was noted to be reduced when compared to preoperative assessment and the K wires were noted to be well contained within the medullary canal of the tibia. At this time, both of these K wires were drilled in standard fashion and a 4-0 by 40 mm and a 4-0 by 35 mm cannulated short thread screw was placed over the K wires and inserted in standard fixation. Of note during insertion of the screws was adequate compression of the medial malleolar fracture. Furthermore, no shifting of the medial malleolar fracture occurred during insertion of the screws. Once the screws were fully inserted, the K wire was then removed. Radiograph evaluation was then performed. The medial malleolus fracture was noted to be reduced when compared to preoperative assessment. At this time, radiograph evaluation was used to assess the posterior malleolus fracture. The posterior malleolus was noted to be reduced when compared to preoperative assessment. It was noted to be back in anatomical position. Furthermore, it appeared to be less than 25% of the articulating surface of the ankle. Due to this, it was determined that internal fixation would not be needed. Radiograph evaluation was used to assess the ankle joint once again. The fibula was noted to be out to length at this time and the fracture was noted to be reduced when compared to preoperative assessment. The intramedullary nail was noted to be contained within the fibula. The syndesmosis was noted to be reduced when compared to preoperative assessment, and the Tightrope was noted to be well contained within the fibula and the tibia. The medial malleolus fracture was noted to be reduced when compared to preoperative assessment, and the hardware was noted to hold the medial malleolus fracture in the correct the reduced position. The ankle joint mortise was noted to be intact at this time. The posterior malleolus fracture was reduced. The fibula is noted to be out to length at this time. Each surgical site is irrigated with copious amounts normal sterile saline. The pneumatic thigh tourniquet was then released and a prompt hyperemic response noted to the entirety of the left lower extremity. For the medial surgical incision, the deltoid ligament was reapproximated and coapted utilizing size 0 Vicryl. The subcutaneous tissue was reapproximated and coapted utilizing size 2-0 Vicryl and 3-0 Vicryl. The skin was reapproximated and coapted utilizing size 3-0 nylon in a simple interrupted and horizontal mattress fashion. For the lateral surgical sites, the periosteal and capsular structures were reapproximated and coapted using sixe 0 vicryl and 2-0 vicryl. The subcutaneous tissues were reapproximated and coapted utilizing size 0 Vicryl, 2-0 Vicryl, 3-0 Vicryl. The skin was reapproximated and coapted utilizing size 3-0 nylon in a simple interrupted and horizontal mattress fashion. Each surgical site was then dressed with Betadine soaked gauze, and a dry sterile dressing consisting of 4 x 4 gauze, ABD pads, wrapped with Kerlix. The left foot and ankle were then wrapped with an Jimmy bandage. Next, a stockinette was placed over the left lower extremity. Cast padding was wrapped from the metatarsal heads extending proximally to the level just distal to the tibial tuberosity. A posterior splint was fashioned to the left lower extremity and was adhered to the left lower extremity utilizing Jimmy bandages. Care was taken to make sure the foot and ankle held in neutral position as the posterior splint dried. Neurovascular status was assessed at the end of the application indeed intact the left lower extremity. The patient tolerated anesthesia and procedure well and was transported to the PACU with vital signs stable and neurovascular status intact to left lower extremity. After period of postoperative monitoring, patient will be discharged home with written and oral instructions for wound care and follow-up. The surgical physician assistant, the nurse practitioner, was utilized for the entire procedure. She helped with patient positioning, holding of limb, holding retractors. She helped with exposure throughout. She helped with bandage application, cast application. Without the surgical physician assistant, surgical time would have been increased and surgical outcome could have been less optimal. - Complications Her bone was significantly soft and difficult to hold internal fixation with. Due to this and the potential complications of larger surgical incision, it was determined that a fibular intramedullary nail would be used. - Admit VTE Documentation VTE Present on Admission: No VTE Mechan Device Prophylaxis: SCD's - Patient will resume her Eliquis postoperatively VTE Pharm Prophylaxis ordered?: Yes
--- NOTE | 2020-08-06 11:10 | RAD_ITS ---
STUDY: X-RAY - LEFT ANKLE REASON FOR EXAM: ORIF of left ankle fracture. TECHNIQUE: 3 view(s) of the ankle. COMPARISON: Radiographs 07/30/2020. FINDINGS: There is an intramedullary jaida transfixing a distal fibular fracture in anatomical alignment and position. There are 2 orthopedic screws transfixing a medial malleolar fracture in anatomical alignment and position. There is syndesmotic fixation. There is a nondisplaced posterior malleolar fracture. Normal visualized talus and calcaneus. The visualized subtalar, talonavicular, calcaneocuboid and tarsal articulations are normal. There is an overlying cast. RAD/Ankle min 3 Views IMPRESSION: ORIF of trimalleolar fracture in anatomical alignment and position. Electronically Signed: Otis Vargas MD at 14:32 EDT Tel , Service support ,
--- NOTE | 2020-08-06 11:10 | RAD_ITS ---
STUDY: X-RAY - LEFT TIBIA AND FIBULA REASON FOR EXAM: ORIF of left ankle fracture. TECHNIQUE: 2 view(s) of the tibia and fibula were obtained. COMPARISON: Ankle radiographs 07/30/2020. FINDINGS: There is an orthopedic jaida transfixing a distal fibular in anatomic alignment and position. There are 2 orthopedic screws transfixing a medial malleolar fracture in anatomic alignment and position. There is syndesmotic fixation. There is a nondisplaced posterior malleolar fracture. There is an overlying cast. RAD/Tibia & Fibula 2 Views IMPRESSION: Anatomical alignment and position of trimalleolar fracture. Electronically Signed: Otis Vargas MD at 14:31 EDT Tel , Service support ,
== END 2020-08-06 12:40 | disposition home or self-care (01) ==
LOC: SDC 05:51 → AC 05:53
PROVIDERS: Anesthesiology; PCP Family Medicine; Referring Provider Podiatrist Foot & Ankle Surgery; Visit Provider Podiatrist Foot & Ankle Surgery
PROC: (CPT 27822; principal; 2020-08-06 07:10)
DX: S82.852A Displaced trimalleolar fracture of left lower leg, initial encounter for closed fracture (principal); S93.432A Sprain of tibiofibular ligament of left ankle, initial encounter; W01.0XXA Fall on same level from slipping, tripping and stumbling without subsequent striking against object, initial encounter; Y93.9 Activity, unspecified; Y92.009 Unspecified place in unspecified non-institutional (private) residence as the place of occurrence of the external cause; Y99.9 Unspecified external cause status; I10 Essential (primary) hypertension; E78.00 Pure hypercholesterolemia, unspecified; K21.9 Gastro-esophageal reflux disease without esophagitis; J44.9 Chronic obstructive pulmonary disease, unspecified; M79.7 Fibromyalgia; M19.90 Unspecified osteoarthritis, unspecified site; G40.909 Epilepsy, unspecified, not intractable, without status epilepticus; F32.9 Major depressive disorder, single episode, unspecified; F41.9 Anxiety disorder, unspecified; Z79.01 Long term (current) use of anticoagulants; Z79.899 Other long term (current) drug therapy; Z87.891 Personal history of nicotine dependence
CPT/HCPCS: 27822; 27829; 64445; 64447; 76942 ×2; 73590; 73610; 76000; 80076; 84132; 85610; 85730; C1713; J7120; J2405

== ENCOUNTER 2020-10-22 10:30 | Outpatient (RCR) | payer MEDICAID, SELFPAY ==
[2020-08-06 06:28] VITALS: BMI 29.2
--- NOTE | 2020-09-30 13:51 | HP.PTEVAL_ITS ---
Patient's Visit Information FELIX NETTLES is a 55 year old F referred to Physical Therapy by Dr. Jose Chopra DPM with a diagnosis of Displaced trimalleolar fx L with surgery ORIF mid July. Date of Evaluation: 09/30/20 Physical Therapist: Mason Hendricks DPT, OCS, CSCS - Visit Plan Frequency: 2x /Week Duration: 4-6 Weeks Plan: Pt is PWB until at least 10/05 doctor visit. Work on ankle ROM L, ankle strength, LE strength, gait training in therapy with therex and theract, gait and manual as needed. - Subjective Broke ankle in 3 places, legs gave out when walking and legs gave out due to DDD. H/o 3 back surgeries. That was early July. To ER next morning adn put in soft cast and ortho at the hospital. Sy and screws placed a week later in early to mid July. In hard cast after stitches out NWB. Cast came off 3 weeks ago adn into boot. Still NWB at that time for two weeks. Now PWB for another 5 days and should go FWB. Uses wheelchair or wh walker at home. Pain is not bad 3/10 much of time in back and shoulders adn wrists, ankle feels OK. Sitting around doing nothing a nicholas, dresses self when needed, bathroom self, Has bath stool and needs help to get into tub. Spends time reading and TV. No exercises given. In boot all day adn sleeps with it. Sleep is getting better and getting 8-9 hours. Uses Motrin as needed. PRior to this spent time sitting in chair alot and needed cane. Back and jello legs is normal for her and has used cane. Sees Dr. Chopra.Last surgery was 3 yrs ago. Steps to get outside without railing and does them with walker which fits on each step. Scoots up steps. is with her when she goes out. - Pain ankle Pain Intensity (Out of 10): 0 Pain Intensity Range: 0, 1 - Objective Pushed back to eval room by in wheelchair. Trasnfers I PWB L. Walks with wh walker PWB L easily and I. Up step BW when shown Mod I with walker adn down with walker PWB mod I. Not walking or standing withotu walker today. Pt has pain and hesitation with LB in transitioning but can do so I today. L ankle boot donned and doffed I. L ankle AROM DF -3 and PF 25, eversion 5 adn inversion 12, PROM very similar with stretching contralaterally. Strength L ankle 3/5 in all directions, R ankle 4/5. Sensation to gross light touch WNL in LE. Knee adn hip aROM WFL for mobility and symmetrical B. reflexes 2/3 B patella and achilles. Big toe L stiff vs R and strength 4- vs 4 on R. Metatarsals stiff L vs R. - Goals Goal 1:: Pt vince to stand symmetrical without holding onto walker Goal Time Frame: 2-4 Weeks Goal 2:: Pt pain 0-1/10 and function 75% better overall. Goal Time Frame: 4-6 Weeks Goal 3:: Patient able to ambulate withotu aD (once allowed by doctor) without L ankle gait deviations. Goal Time Frame: 4-6 Weeks Goal 4:: LEFS score of 30 to show improved mobility. Goal Time Frame: 4-6 Weeks Goal 5:: I approp HEP to minimize future problems. Goal Time Frame: 4-6 Weeks - Rehabilitation Potential Physical Therapy Diagnosis: L ankle fx s/p surgery ORIF. Rehabilitation Potential: Fair - Anticipated Interventions Patient/Client Instruction: Educate patient on: Condition, Plan of Care For the Purpose of:: To decrease pain, To increase ROM, To improve muscle performance and motor function, To increase tolerance to activity/condition/position, To improve gait and locomotor functions Therapeutic Exercise to Include: Strength training, Balance training, Postural training, Flexibilty training, Gait and locomotor training, Neuromotor developme nt, Passive ROM, Active ROM For the Purpose of:: To decrease pain, To increase ROM, To improve muscle performance and motor function, To increase tolerance to activity/conditi on/position, To improve ability of physical actions for home/community/work/leisure, To improve gait and locomotor functions Manual Therapy Techniques to Include: Scar massage, Mobilization, Passive ROM For the Purpose of:: To decrease pain, To increase ROM Thank you for the opportunity to evaluate your patient. For Medicare and Medicare HMO plans, please review the plan of care and approve it. It will need to be FAXED BACK to us at [phone] for Medicare purposes. For Medicare only, by signing this I certify the plan of care. Please let me know if there are questions or concerns regarding this plan of care. Physician Signature: Date:
--- NOTE | 2020-11-25 08:32 | HP.PT.NRP ---
FELIX NETTLES was seen in my office for initial evaluation on 09/30/20. The following Plan of Care was established for this patient: Initial Frequency: 2x /Week Initial Duration: 4-6 Weeks Patient/Client Instruction: Educate patient on: Condition, Plan of Care For the Purpose of:: To decrease pain, To increase ROM, To improve muscle performance and motor function, To increase tolerance to activity/condition/position, To improve gait and locomotor functions Therapeutic Exercise to Include: Strength training, Balance training, Postural training, Flexibilty training, Gait and locomotor training, Neuromotor development, Passive ROM, Active ROM For the Purpose of:: To decrease pain, To increase ROM, To improve muscle performance and motor function, To increase tolerance to activity/condition/position, To improve ability of physical actions for home/community/work/leisure, To improve gait and locomotor functions Manual Therapy Techniques to Include: Scar massage, Mobilization, Passive ROM For the Purpose of:: To decrease pain, To increase ROM This patient was last seen in our office 10/22/20. Pertinent comments regarding their Physical therapy will appear below: Pt seen 5 visits of POC nd then cancelled the rest. At this point, it has been over a month adn I will discontinue due to nonattendance. At this point I will be discontinuing this patient from physical therapy. I would be happy to see this patient again in the future if found appropriate by the physician. Thank you! Mason Hendricks, DPT, OCS, CSCS
== END 2020-10-22 19:00 | disposition home or self-care (01) ==
LOC: PT 10:30
PROVIDERS: PCP Family Medicine; Referring Provider Podiatrist Foot & Ankle Surgery; Visit Provider Podiatrist Foot & Ankle Surgery
DX: S82.852D Displaced trimalleolar fracture of left lower leg, subsequent encounter for closed fracture with routine healing (principal); S93.432D Sprain of tibiofibular ligament of left ankle, subsequent encounter
CPT/HCPCS: 97110; 97162

== ENCOUNTER 2021-01-08 12:07 | Outpatient (RCR) | payer MEDICAID, SELFPAY ==
[2020-08-06 06:28] VITALS: BMI 29.2
[2021-01-08] MEDS: COVID-19 VACC, MRNA(PFIZER)/PF 30 MCG/0.3 ML SYRINGE IM (11:11)
[2021-01-29] MEDS: COVID-19 VACC, MRNA(PFIZER)/PF 30 MCG/0.3 ML SYRINGE IM (10:48)
== END 2021-01-08 23:59 ==
LOC: IMMUN 12:07
PROVIDERS: PCP Family Medicine; Visit Provider Family Medicine
DX: Z23 Encounter for immunization (principal)
CPT/HCPCS: 0001A; 0002A; 91300

== ENCOUNTER 2021-05-21 13:44 | Emergency (ER) | payer MEDICAID, SELFPAY ==
[2020-08-06 06:28] VITALS: BMI 29.2
[2021-05-21 13:45] VITALS: BP 165/83; PULSE 87; RESP 20; TEMP 36.6; O2SAT 94; BMI 39.0
--- NOTE | 2021-05-21 14:43 | EDS_ITS ---
HPI History of Present Illness Chief Complaint: Nausea/Vomiting/Diarrhea Informant: patient Narrative Narrative: Patient is a 56-year-old female with a past medical history of COPD, hypertension, hyperlipidemia, seizure disorder who presents to the emergency department nausea/vomiting/diarrhea and cough. She states that her symptoms have been present over the past week. They have not been getting any better. She has been feeling short of breath. She denies any chest pain. No known sick contacts. She has been vaccinated for Covid. She states she only has one episode of vomiting and diarrhea per day. No urinary symptoms. No leg swelling or calf pain. She does have diffuse abdominal discomfort. She denies any fevers or chills. She does continue to smoke cigarettes. [facility] Medical History (Updated 05/21/21 @ 16:[address] Gabino Nieves ) Seizure Home Medications alprazolam 1 mg PO QHS 07/30/20 [History Last Taken 07/29/20] amlodipine 10 mg PO DAILY 07/30/20 [History Last Taken Unknown] atorvastatin 80 mg PO DAILY 07/30/20 [History Last Taken Unknown] budesonide-formoterol 2 puff INHALATION BID 07/30/20 [History Last Taken Unknown] carbamazepine 200 mg PO BID 07/30/20 [History Last Taken Unknown] cyanocobalamin (vitamin B-12) 1,000 mcg PO DAILY 07/30/20 [History Last Taken Unknown] ergocalciferol (vitamin D2) 50,000 unit PO QWEEK 07/30/20 [History Last Taken 07/29/20] escitalopram oxalate 20 mg PO DAILY 07/30/20 [History Last Taken Unknown] hydroxyzine pamoate 25 mg PO TID 07/30/20 [History Last Taken Unknown] ipratropium-albuterol 3 ml INHALATION Q6H PRN PRN 07/30/20 [History Last Taken Unknown] levetiracetam 1,000 mg PO BID 07/30/20 [History Last Taken Unknown] lisinopril 10 mg PO BID 07/30/20 [History Last Taken Unknown] omeprazole 40 mg PO BID 07/30/20 [History Last Taken Unknown] perphenazine 2 mg PO QHS 07/30/20 [History Last Taken 07/29/20] alendronate 70 mg PO Q7D@0700 #4 tab 07/31/20 [Rx Last Taken Unknown] azithromycin [Zithromax Z-Diogo] See Rx Instructions .ROUTE .COMPLEX #6 tab 05/21/21 [Rx Last Taken Unknown] hydrocodone-acetaminophen [[place]] 1 tab PO Q6H PRN 05/21/21 [History Last Taken Unknown] metoprolol tartrate 25 mg PO DAILY 05/21/21 [History Last Taken Unknown] promethazine 25 mg PO TID PRN #10 tab 05/21/21 [Rx Last Taken Unknown] Allergy/AdvReac Type Severity Reaction Status Date / Time cefuroxime [From Ceftin] Allergy Hives Verified 05/21/21 13:48 bupropion [From Wellbutrin] AdvReac SEIZURES Verified 05/21/21 13:48 codeine AdvReac Upset Verified 05/21/21 13:48 Stomach cyclobenzaprine AdvReac SEIZURES Verified 05/21/21 13:48 [From Flexeril] fluoxetine [From Prozac] AdvReac INCREASED Verified 05/21/21 13:48 ANXIETY gabapentin AdvReac INCREASED Verified 05/21/21 13:48 ANXIETY, CONFUSION nicotine [From Nicoderm CQ] AdvReac SEIZURES Verified 05/21/21 13:48 risperidone [From Risperdal] AdvReac SEIZURES Verified 05/21/21 13:48 TENS unit patch Allergy Rash Uncoded 05/21/21 13:48 Social History Smoking Status: Heavy Smoker (>10/day) ROS ROS ED Constitutional Constitutional ED: Denies chills or fever(s) Eyes Eyes: Denies change in vision ENT ENT ED: Denies epistaxis or rhinorrhea Cardiovascular Cardiovascular: Denies chest pain or palpitations Respiratory/Chest Respiratory/Chest: Reports cough, dyspnea and sputum Gastrointestinal Gastrointestinal: Reports abdominal pain, diarrhea, nausea and vomiting; Denies constipation or melena Genitourinary Genitourinary ED: Denies dysuria, hematuria or urinary frequency Musculoskeletal Musculoskeletal: Denies back pain or neck pain Integumentary Denies rash Neurologic Neurologic: Denies dizziness, headache(s) or weakness EXAM Physical Exam Const Vital Signs: 05/21/21 13:45 05/21/21 15:07 05/21/21 15:09 Temperature 98 F Temperature Source Temporal Pulse Rate 87 80 82 Respiratory Rate 20 H 10 L 12 Respiratory Effort Respiratory Depth Respiratory Pattern Normal Blood Pressure 165/83 H 127/66 H Blood Pressure Mean 110 86 Pulse Ox 94 93 Oxygen Delivery Method Room Air Room Air 05/21/21 15:11 05/21/21 15:12 05/21/21 16:26 Temperature 98.0 F Temperature Source Temporal Pulse Rate 82 84 Respiratory Rate 12 16 Respiratory Effort Normal Respiratory Depth Normal Respiratory Pattern Normal Blood Pressure 127/66 H 145/75 H Blood Pressure Mean 86 Pulse Ox 91 93 Oxygen Delivery Method Room Air Room Air Positive well nourished and well developed General Appearance ED: well developed and NAD HEENT Reports normocephalic, head/scalp atraumatic and moist mucous membranes Eyes PERRL and EOMs intact bilaterally Neck no lymphadenopathy and supple General: Negative for tenderness Chest Wall inspection of chest normal Resp normal respiratory effort and clear to auscultation bilaterally Resp Narrative: Expiratory wheezes heard throughout. Auscultation: Negative for rales or rhonchi Cardio regular rate, regular rhythm and no murmurs GI normal to inspection, nondistended, normoactive bowel sounds Palpation: soft; Negative for guarding or rebound tenderness present Extremity normal to inspection General Extremety ED: Negative for edema or tenderness General Extremity: Negative for edema Neuro CN's II-XII intact bilaterally and no sensory deficits noted Sensorium / Orientation: alert Motor Exam: strength 5/5 throughout Psych mental status grossly normal Skin no rashes or lesions noted MDM MDM MDM Narrative Medical decision making narrative: Patient presents the ED for cough, shortness of breath, nausea/vomiting and diarrhea. On arrival to the ED she is mildly hypertensive but otherwise normal vital signs. She is in no acute distress. Will check basic lab work, Covid swab and chest x-ray. She is started on some IV fluids and Zofran for symptomatic treatment. Patient's Covid swab was negative. Her chest x-ray did not reveal any acute cardiopulmonary abnormality. Lab work did not reveal any significant acute abnormality. Her potassium was mildly low. She is not a high white blood cell count. She is not anemic. Given the fact she does have a history of COPD we will write her a prescription for azithromycin of her symptoms have been present over the past week. She otherwise has remained stable throughout ED stay. I do believe she is stable for discharge. Return precautions are reviewed with her including any significant shortness of breath, worsening symptoms. She otherwise is to follow-up with her PCP. She understands and is agreeable with this plan. Lab Data Labs: Laboratory Results - last 24 hr 05/21/21 05/21/21 14:00 14:00 WBC 8.1 RBC 3.84 L Hgb 13.4 Hct 39.3 MCV 102.3 H MCH 34.9 H MCHC 34.1 RDW Std Deviation 50.2 H RDW Coeff of Sanju 13.2 Plt Count 164 MPV 10.3 Immature Gran % (Auto) 0.400 Neut % (Auto) 63.3 Lymph % (Auto) 28.5 [place] % (Auto) 6.4 Eos % (Auto) 0.9 Baso % (Auto) 0.5 Absolute Neuts (auto) 5.1 Absolute Lymphs (auto) 2.30 Nucleated RBC % 0 Sodium 134 L Potassium 3.1 L Chloride 97 L Carbon Dioxide 28.0 Anion Gap 9 BUN 4 L Creatinine 0.56 Estim Creat Clear Calc 78.65 Est GFR (MDRD) Af Amer 143 Est GFR (MDRD) Non-Af 118 BUN/Creatinine Ratio 7.1 L Glucose 107 H Calcium 8.5 Radiography Diagnostic Testing: Radiology Impression Chest X-Ray 05/21/21 15:14 IMPRESSION: No acute pulmonary process Electronically Signed: Raul Hardin MD at 15:31 EDT , Service support , Discharge Plan Triage Chief Complaint: Nausea/Vomiting/Diarrhea ED Provider: Gabino Nieves Dx/Rx/DC Orders Clinical Impression: Cough, Nausea & vomiting, Diarrhea Instructions: Preventing Common Respiratory ..., ED Diet for Vomiting or ... Prescriptions: New azithromycin [Zithromax Z-Diogo] 250 mg tablet See Rx Instructions .ROUTE .COMPLEX Qty: 6 RF: 0 promethazine 25 mg tablet 25 mg PO TID PRN (Reason: nausea and vomiting) Qty: 10 RF: 0 No Action atorvastatin 80 mg tablet 80 mg PO DAILY RF: 0 perphenazine 2 mg tablet 2 mg PO QHS RF: 0 hydroxyzine pamoate 50 MG capsule 25 mg PO TID RF: 0 ipratropium-albuterol 3 ML solution for nebulization 3 ml inhalation Q6H PRN PRN (Reason: shortnes of breath) RF: 0 levetiracetam 500 MG tablet 1,000 mg PO BID RF: 0 omeprazole 40 MG capsule,delayed release(DR/EC) 40 mg PO BID RF: 0 carbamazepine 200 MG tablet 200 mg PO BID RF: 0 amlodipine 10 MG tablet 10 mg PO DAILY RF: 0 lisinopril 10 MG tablet 10 mg PO BID RF: 0 ergocalciferol (vitamin D2) 50,000 UNIT capsule 50,000 unit PO QWEEK RF: 0 escitalopram oxalate 20 MG tablet 20 mg PO DAILY RF: 0 cyanocobalamin (vitamin B-12) 1,000 MCG capsule 1,000 mcg PO DAILY RF: 0 budesonide-formoterol 1 INHALER inhaler 2 puff inhalation BID RF: 0 alprazolam 1 MG tablet 1 mg PO QHS RF: 0 alendronate 70 MG tablet 70 mg PO Q7D@0700 Qty: 4 RF: 0 hydrocodone-acetaminophen [[place]] 5-325 mg Tablet 1 tab PO Q6H PRN (Reason: Pain) RF: 0 metoprolol tartrate 25 mg Tablet 25 mg PO DAILY RF: 0 Primary Care Provider: Geovani Mancia Referrals: Geovani Mancia MD [Primary Care Provider] - 3-5 Days Disposition Disposition: Home, Self Care Discharge Date/Time: 05/21/21 16:26
[2021-05-21 14:53] LABS: Absolute Neutrophil Count 5.1 X10^3/uL (2.0-7.7); Basophil# 0.04 X10^3/uL; Basophil% 0.5 % (0-1); Eosinophil# 0.07 X10^3/uL; Eosinophils% 0.9 % (0-5); Hematocrit 39.3 % (37-47); Hemoglobin 13.4 g/dL (12.0-15.0); Lymphocyte % 28.5 % (19-41); Mean Corp Hgb Conc 34.1 g/dL (32-36); Mean Corpuscular Hgb 34.9 pg (27.0-32.0); Mean Corpuscular Volume 102.3 fL (81-99); Mean Platelet Vol. 10.3 fl (6.2-12.0); Monocyte# 0.52 X10^3/uL; Monocyte% 6.4 % (0-10); NRBC Flagged by Analyzer 0 % (0-5); Neutrophil # 5.12 X10^3/uL (2.7-7.7); Neutrophil % 63.3 % (47-70); Platelet Count 164 K/mm3 (150-450); RBC Distribution Width CV 13.2 % (11.6-14.6); RBC Distribution Width SD 50.2 fl (35.1-43.9); Red Blood Count 3.84 M/mm3 (4.2-5.4); White Blood Count 8.1 K/mm3 (4.4-11.0)
[2021-05-21] MEDS: Ondansetron 4 MG/2 ML Vial IV (15:03)
[2021-05-21 15:04] LABS: Anion Gap 9 (5-15); BUN 4 mg/dL (7-18); BUN/Creat Ratio 7.1 RATIO (10-20); Calcium,Total 8.5 mg/dL (8.5-10.1); Chloride 97 mmol/L (98-107); Creatinine, Serum 0.56 mg/dL (0.55-1.02); EST Glomerular Filtration Rate 118 mL/min (>60); Est Glom Filt Rate - Afr Amer 143 mL/min (>60); Estimated Creatinine Clearance 78.65 ml/min; Glucose 107 mg/dL (74-106); Potassium 3.1 mmol/L (3.5-5.1); Sodium Level 134 mmol/L (136-145)
[2021-05-21] MEDS: Ipratropium/Albuterol Sulfate 3 ML AMPUL.NEB INHALATION (15:04)
[2021-05-21 15:07] VITALS: BP 127/66; PULSE 80; RESP 10; O2SAT 93
[2021-05-21 15:09] VITALS: PULSE 82; RESP 12
[2021-05-21 15:11] VITALS: BP 127/66; PULSE 82; RESP 12; TEMP 36.7; O2SAT 91
[2021-05-21 15:12] VITALS: O2SAT 92
--- NOTE | 2021-05-21 15:14 | RAD_ITS ---
STUDY: X-RAY CHEST REASON FOR EXAM: Female, 56 years old. Cough, SOB TECHNIQUE: Single AP portable view of the chest. COMPARISON: 07/30/2020 FINDINGS: EKG leads overlie the chest The lungs are clear and expanded. There is no demonstrated pleural abnormality. Normal size heart. Normal mediastinum and michelle. Normal visualized pulmonary arteries. Normal visualized aortic arch and descending thoracic aorta. There are diffuse degenerative changes of the visualized thoracic spine. Normal visualized ribs, clavicles, and shoulders. There is no demonstrated abnormality of the visualized soft tissue structures of the upper abdomen. RAD/Chest 1 View (Portable) IMPRESSION: No acute pulmonary process Electronically Signed: Raul Hardin MD at 15:31 EDT , Service support ,
[2021-05-21] MEDS: Potassium Chloride Oral Tablet 20 MEQ 40 MEQ PO (16:19)
[2021-05-21 16:26] VITALS: BP 145/75; PULSE 84; RESP 16; O2SAT 93
== END 2021-05-21 16:26 | disposition home or self-care (01) ==
PROVIDERS: Emergency Provider Emergency Medicine; PCP Family Medicine
DX: R11.2 Nausea with vomiting, unspecified (principal); R19.7 Diarrhea, unspecified; R05 Cough; I10 Essential (primary) hypertension; E78.5 Hyperlipidemia, unspecified; J44.9 Chronic obstructive pulmonary disease, unspecified; G40.909 Epilepsy, unspecified, not intractable, without status epilepticus; F17.210 Nicotine dependence, cigarettes, uncomplicated; Z79.899 Other long term (current) drug therapy
CPT/HCPCS: 71045; 80048; 85025; 87426; 94640; 96361; 96374; 99285; J7040; A4216; J2405

== ENCOUNTER → 2021-06-25 09:39 | Outpatient (CLI) | payer MEDICAID, SELFPAY ==
[2021-06-17 14:23] LABS: Absolute Lymphocyte Count 2.04 X10^3/uL (0.83-4.51); Absolute Neutrophil Count 2.7 X10^3/uL (2.0-7.7); Basophil# 0.03 X10^3/uL; Basophil% 0.6 % (0-1); Eosinophil# 0.05 X10^3/uL; Hematocrit 35.8 % (37-47); Hemoglobin 12.2 g/dL (12.0-15.0); Lymphocyte # 2.04 X10^3/ul (0.83-4.51); Lymphocyte % 39.5 % (19-41); Mean Corp Hgb Conc 34.1 g/dL (32-36); Mean Corpuscular Hgb 34.2 pg (27.0-32.0); Mean Corpuscular Volume 100.3 fL (81-99); Mean Platelet Vol. 9.2 fl (6.2-12.0); Monocyte# 0.32 X10^3/uL; Monocyte% 6.2 % (0-10); NRBC Flagged by Analyzer 0 % (0-5); Neutrophil % 52.3 % (47-70); Platelet Count 178 K/mm3 (150-450); RBC Distribution Width CV 12.7 % (11.6-14.6); RBC Distribution Width SD 47.2 fl (35.1-43.9); Red Blood Count 3.57 M/mm3 (4.2-5.4); White Blood Count 5.2 K/mm3 (4.4-11.0)
[2021-06-17 14:54] LABS: ALB/GLOB Ratio 0.6 RATIO (0.9-2.4); AST(SGOT) 430 U/L (15-37); Alanine Aminotransfer ALT/SGPT 235 U/L (13-56); Alkaline Phosphatase 265 U/L (45-117); Amylase 63 U/L (25-115); Anion Gap 8 (5-15); BUN 6 mg/dL (7-18); BUN/Creat Ratio 11.9 RATIO (10-20); Calcium,Total 8.4 mg/dL (8.5-10.1); Chloride 101 mmol/L (98-107); Creatinine, Serum 0.51 mg/dL (0.55-1.02); EST Glomerular Filtration Rate 133 mL/min (>60); Est Glom Filt Rate - Afr Amer 161 mL/min (>60); Globulin 4.7 g/dL (2.2-4.2); Glucose 128 mg/dL (74-106); Lipase 113 U/L (73-393); Potassium 3.4 mmol/L (3.5-5.1); Protein, Total 7.7 g/dL (6.4-8.2); Sodium Level 134 mmol/L (136-145)
[2021-06-19 08:10] LABS: HEPATITIS B SURFACE AG Negative (Negative); Hepatitis A IgM Antibody Negative (Negative); Hepatitis B Core AB IgM Negative (Negative)
[2021-06-19 10:24] LABS: Hep C Antibodies 0.1 s/co ratio (0.0-0.9)
--- NOTE | 2021-06-25 09:41 | NM_ITS ---
CLINICAL: 56-year-old female with reported history of cholelithiasis. RADIONUCLIDE HEPATOBILIARY SCINTIGRAPHY COMPARISON: None available FINDINGS: Following the intravenous administration of 5.2 mCi of 99m Tc Mebrofenin, hepatobiliary images reveal: 1. Relatively prompt and homogeneous radiopharmaceutical concentration is noted by a normal sized liver. No parenchymal defects are identified. 2. Gallbladder activity is not identified during 60 minutes of sequential imaging. Gallbladder activity is identified at 90 minutes post radiopharmaceutical provision. 3. Small intestinal tract is observed at 30 minutes post radiopharmaceutical administration. 4. Washout of the radiopharmaceutical by the hepatic parenchyma appears qualitatively normal. NM/Hepatobilliary Imaging IMPRESSION: 1. ABNORMAL 99m Tc Mebrofenin hepatobiliary imaging examination. A. Nonvisualization of the gallbladder at 60 minutes post-radiopharmaceutical administration with visualization noted at 90 minutes post tracer provision is most consistent with a component of chronic cholecystitis in patients who have fasted for more than 4 and less than 24 hours, with an intermediate to high pretest probability of hepatobiliary illness and retained normal hepatocellular function. (Silver Regan, J Nucl Med 21: P17, 1980). Electronically Signed: Esteban Rios DO at 23:05 EDT Tel , Service support ,
== END ==
PROVIDERS: PCP Family Medicine; Referring Provider Surgery; Visit Provider Surgery
DX: K80.20 Calculus of gallbladder without cholecystitis without obstruction (principal); R11.2 Nausea with vomiting, unspecified; R74.8 Abnormal levels of other serum enzymes
CPT/HCPCS: 36415; 78226; 80053; 80074; 82150; 83690; 85025; A9537

== ENCOUNTER 2021-07-01 05:13 | Day surgery (SDC) | payer MEDICAID, SELFPAY ==
[2021-07-01] VITALS (7 sets, daily range): BP systolic 104–157; BP diastolic 58–90; PULSE 70–75; RESP 16–18; TEMP 36.1–36.6; O2SAT 91–98; BMI 34.6
--- NOTE | 2021-07-01 | EGD_PTH ---
PATIENT: FELIX NETTLES LOC: [facility] U#:[id number] AGE/SX: 56/F ROOM: RE07/01/[address]: Dr. Manuel Solano MD : 1965 BED: DIS: 07/01/2021 SPEC #: [id number] RECD: 07/01/21 11:31 STATUS: TRISTEN SAVAGECamron #: [id number] SENAIT: 07/01/21 00:[address]: Manuel Solano DEPT: SURGICAL PATHOLOGY RECD BY: Russell Head ENTERED: 07/01/21 11:31 SP TYPE: EGD BIOPSY ABBY DR: Dr. Geovani Mancia MD Tissues: A - Colon Donuts B - Gastric mucous membrane C - Gastric mucous membrane Procedures: Surgery Specimen Level IV HEADER O[place] [place] DIAGNOSIS: Nausea and vomiting TISSUE SUBMITTED: A. Duodenum biopsy, B. Antrum biopsy, C. GE junction MICROSCOPIC DIAGNOSIS A. Duodenum, biopsy: No pathologic change B. Gastric antrum, biopsy: Minimal chronic inflammation. Negative for H. pylori organisms. See Comment. C. GE junction , biopsy: Mild chronic inflammation. No evidence of goblet cell metaplasia. See Comment. FAUZIA:fauzia 07/02/31 COMMENT B. The results of immunohistochemistry for Helicobacter pylori will be reported separately ([id number]). C. AB/PAS with matched control is negative for intestinal metaplasia. MICROSCOPIC DESCRIPTION Slides are reviewed. GROSS DESCRIPTION A. Received is one container labeled with the patient name and designated duodenum. The specimen consists of one irregular fragment of light guadalupe soft tissue that measures 8 x 2 x 1 mm. The specimen is totally submitted in one cassette. B. Received is one container labeled with the patient name and designated antrum. The specimen consists of one irregular fragment of light guadalupe soft tissue that measures 3 x 2 x 1mm. The specimen is totally submitted in one cassette. C. Received is one container labeled with the patient name and designated GE junction. The specimen consists of one irregular fragment of light guadalupe soft tissue that measures 3 x 2 x 1mm. The specimen is totally submitted in one cassette. /AM:am 07/01/21 TC:3 CPT:26202u3,46166
--- NOTE | 2021-07-01 | IMM_PTH ---
PATIENT: FELIX NETTLES LOC: EN U#:[id number] AGE/SX: 56/F ROOM: RE07/01/[address]: Dr. Manuel Solano MD : 1965 BED: DIS: 07/01/2021 SPEC #: [id number] RECD: 07/01/21 14:33 STATUS: TRISTEN RECamron #: [id number] SENAIT: 07/01/21 00:[address]: Manuel Solano DEPT: IMMUNOHISTOCHEMISTRY RECD BY: Sarah Goldman ENTERED: 07/01/21 14:33 SP TYPE: IMMUNO OTHR DR: Dr. Geovani Mancia MD Tissues: Stomach, NOS Procedures: H Pylori (initial) PHYSICIAN & INSTITUTION [place] [id number] SPECIMEN INFORMATION: Tissue Source: Antrum biopsy Clinical Info: Nausea and vomiting Specimen Number:[id number] CPT code: 13300 METHODOLOGY: Deparaffinized sections of prefer/formalin-fixed tissue or PAP/DQ stained slides are incubated with monoclonal/polyclonal antibodies/oligonucleotide probes. Localization is made via biotin free immunoperoxidase method. Appropriate controls are performed and reacted as expected. Results on target cell population are indicated in the following table: RESULTS: ANTIBODY / CLONE RESULT H Pylori (polyclonal) negative These tests were developed and their performance characteristics determined by [facility]. They may not have been cleared or approved by the U.[place]. Food and Drug Administration. The FDA has determined that such clearance or approval is not necessary. The above immunohistochemical/dualISH markers are ordered and reviewed by the Pathologist. INTERPRETATION: B. Gastric antrum, biopsy: -Negative for Helicobacter pylori organisms. AM:tessa 07/02/21
[2021-07-01] MEDS: Lactated Ringers 1,000 ML 100 ML IV (05:30)
--- NOTE | 2021-07-01 05:58 | HP.PCM_ITS ---
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 Is patient in pain?: Yes (upper abd ) Pain scale (1-10): 7 Allergies cefuroxime [From Ceftin] Allergy (Verified 06/17/21 12:51) Hives bupropion [From Wellbutrin] Adverse Reaction (Verified 06/17/21 12:51) SEIZURES codeine Adverse Reaction (Verified 06/17/21 12:51) Upset Stomach cyclobenzaprine [From Flexeril] Adverse Reaction (Verified 06/17/21 12:51) SEIZURES fluoxetine [From Prozac] Adverse Reaction (Verified 06/17/21 12:51) INCREASED ANXIETY gabapentin Adverse Reaction (Verified 06/17/21 12:51) INCREASED ANXIETY, CONFUSION nicotine [From Nicoderm CQ] Adverse Reaction (Verified 06/17/21 12:51) SEIZURES risperidone [From Risperdal] Adverse Reaction (Verified 06/17/21 12:51) SEIZURES TENS unit patch Allergy (Uncoded 05/21/21 13:48) Rash Medications alprazolam 1 mg PO QHS 07/30/20 [History Confirmed 06/17/21] amlodipine 10 mg PO DAILY 07/30/20 [History Confirmed 06/17/21] atorvastatin 80 mg PO DAILY 07/30/20 [History Confirmed 06/17/21] budesonide-formoterol 2 puff INHALATION BID 07/30/20 [History Confirmed 06/17/21] cyanocobalamin (vitamin B-12) 1,000 mcg PO DAILY 07/30/20 [History Confirmed 06/17/21] ergocalciferol (vitamin D2) 50,000 unit PO QWEEK 07/30/20 [History Confirmed 06/17/21] escitalopram oxalate 20 mg PO DAILY 07/30/20 [History Confirmed 06/17/21] hydroxyzine pamoate 25 mg PO TID 07/30/20 [History Confirmed 06/17/21] ipratropium-albuterol 3 ml INHALATION Q6H PRN PRN 07/30/20 [History Confirmed 06/17/21] levetiracetam 1,000 mg PO BID 07/30/20 [History Confirmed 06/17/21] omeprazole 40 mg PO BID 07/30/20 [History Confirmed 06/17/21] perphenazine 2 mg PO QHS 07/30/20 [History Confirmed 06/17/21] alendronate 70 mg PO Q7D@0700 #4 tab 07/31/20 [Rx Confirmed 06/17/21] metoprolol tartrate 25 mg PO DAILY 05/21/21 [History Confirmed 06/17/21] promethazine 25 mg PO TID PRN #10 tab 05/21/21 [Rx Confirmed 06/17/21] albuterol sulfate 90 mcg/actuation aerosol inhaler 2 puff INHALATION Q6H PRN 06/17/21 [History Confirmed 06/17/21] carbamazepine 200 mg tablet 400 mg PO BID tab 06/17/21 [History Confirmed 06/17/21] lisinopril 10 mg tablet 20 mg PO BID tab 06/17/21 [History Confirmed 06/17/21] Is last menstrual period known: No Post menopausal: Yes Patient : No PFSH Medical History (Updated 06/17/21 @ 17:[address] Manuel Solano MD) Anemia Fibromyalgia Seizure Surgical History (Updated 06/17/21 @ 13:17 by Leyda Bardales) History of ankle surgery History of back surgery History of colonoscopy History of neck surgery Social History Smoking Status: Heavy Smoker (>10/day) HPI HPI HPI: FELIX NETTLES, is a 56 F who presents to the office today for surgical consultation regarding nausea vomiting and diarrhea. The patient is referred by Dr. Geovani Jeffrey and a written copy my surgical consult and recommendations will return to him. 56-year-old female. For at least a couple weeks she states she has had problems with nausea and gagging vomiting. She has some nonspecific diarrhea. Apparently she was seen in the [facility] emergency room with a very similar complaints. When she was in the ER she complained of feeling sick vomiting diarrhea coughing. She had no fever. She was tested for COVID-19. Chest x-ray was obtained did not show an abnormality but because of the patient's cough she was initiated on azithromycin. The patient states that she thinks her breathing is somewhat better. She has significant COPD. She continues to be a 1 pack/day cigarette smoker. She has significant dyspnea on exertion. She states that she is not on any inhalers. She states she has not been seen by pulmonology. To help evaluate her abdominal condition on June 15, 2021 she had an right upper quadrant ultrasound. The gallbladder is normally distended. Multiple small nonobstructing stones are seen. The common bile duct is normal at 4.8 mm. The pancreas was normal. There was no pancreatic mass or peripancreatic fluid. No ascites. No Rivera sign. Diagnosis was cholelithiasis. On June 11, 2021 laboratory was remarkable for a glucose of 120. Total protein was 7.9. Bilirubin was 1. Alkaline phosphatase 252. ALT was 373. AST was 1135. This laboratory was repeated on June 16, 2021. Total bilirubin was 0.5. Alkaline phosphatase 373. ALT 270. AST 398. As of June 11 her cholesterol level is 179 with triglycerides of 199 HDL 113 and LDL 26. As of May 21 her white blood cell count was 8.1 with a hemoglobin 13.4 medical 39.3 platelet count 164,000. Renal function was normal with a BUN of 4 and a creatinine of 0.56. The patient also is an avid alcohol drinker. She admits to drinking 8 beers per day. It is likely of more. The patient states that she has chronic neck and back pain. She takes extra strength Tylenol 2 tablets at least 3 times daily. She states that she previously was under the care of a pain specialist. However she will be excused from that practice due to her excessive alcohol intake. ROS General General: Yes fatigue; No weight change, appetite, colon cancer, breast cancer or weakness HEENT HEENT: No difficulty swallowing, eye injury, eye surgery, swollen glands or hoarseness Endo Endocrine: No thyroid disease, diabetes mellitus, thyroid cancer, Hair loss, heat intolerance or cold intolerance Musc Musculoskeletal: Yes back problems and arthritis; No rheumatoid arthritis, gout or joint pain Cardio Cardiovascular: Yes high blood pressure; No murmur, pacemaker, heart disease, atrial fibrillation, heart attack, heart stent, palpitations, shortness of breat with exertion or chest pain Psych Psychiatric: Yes depression and anxiety; No hearing voices Resp Respiratory: No shortness of breath, No sleep apnea, Yes cough, Yes COPD, No asthma, No emphysema and No wheezing Gastro Gastrointestinal: Yes abdominal pain, Yes nausea or vomiting, Yes diarrhea, No constipation, No blood in stool, Yes acid reflux, No hemorrhoids, No ulcers, No gallbladder problem and No black,tarry stools Case Hematologic: No blood thinners, No blood disorders, No bleeding, No anemia and No blood clots Neuro Neurologic: No weakness Exam Const General: cooperative Nutritional Appearance: obese Other: Patient appears much older and more debilitated than stated age [facility] Other: Rounded facies, malacia of skin Eyes General: appearance normal, both eyes and all related structures Neck Other: Carotids are 2-3+. I do not detect a bruit Chest Other: Markedly increased anterior posterior diameter Resp Other: Very poor expiratory excursion. Pronounced rhonchi and wheezes bilaterally Cardio Rate: regular rate Rhythm: regular rhythm GI Other: Obese, no focal tenderness, no right upper quadrant tenderness, bowel sounds present unremarkable Musc Other: Stiff neck Skin Other: Discoloration of bilateral lower extremities with hyperpigmentation erythema. Nonpitting edema Neuro General: patient alert and patient awake Extrem Other: Bilateral lower extremity discoloration Psych Appearance: grossly normal Assessment and Plan Assessment and Plan (1) Elevated liver enzymes: Status: Acute Orders: Orders: Hepatobilliary Imaging Today Comprehensive Metabolic Profil Today CBC W/Diff, Automated Today Amylase Today Lipase Today Hepatitis Panel Acute Today (2) Cholelithiasis: Status: Acute Qualifiers: Cholelithiasis location: gallbladder Cholecystitis presence: without cholecystitis Biliary obstruction: without biliary obstruction Qualified Code(s): K80.20 - Calculus of gallbladder without cholecystitis without obstruction Orders: Orders: Hepatobilliary Imaging Today Comprehensive Metabolic Profil Today CBC W/Diff, Automated Today Amylase Today Lipase Today Hepatitis Panel Acute Today (3) COPD: Status: Chronic (4) Cough: Status: Acute (5) Nausea & vomiting: Status: Acute Qualifiers: Vomiting type: unspecified Vomiting Intractability: unspecified Qualified Code(s): R11.2 - Nausea with vomiting, unspecified Orders: Orders: EGD Today Hepatobilliary Imaging Today Comprehensive Metabolic Profil Today CBC W/Diff, Automated Today Amylase Today Lipase Today Hepatitis Panel Acute Today (6) Diarrhea: Status: Acute Qualifiers: Diarrhea type: unspecified type Qualified Code(s): R19.7 - Diarrhea, unspecified Plan Details Additional Comments: Complex 56-year-old female with a variety of medical issues and comorbidities. The patient has nausea intermittent vomiting. Undetermined etiology. Unfortunately she is a heavy cigarette smoker with significant COPD and shortness of breath. This is complicated by her excessive alcohol use. She also has excessive use of acetaminophen. I would propose for her a esophagogastroduodenoscopy. Great care will need to be taken. I will need to have monitored anesthesia care because of the patient's comorbidities and pulmonary issues. On imaging and presentation it appears as best I can tell that she has cholelithiasis without acute cholecystitis. I am very much concerned that her elevated liver function tests are either an alcoholic hepatitis or drug-induced hepatitis from the acetaminophen or a combination of both. I recommend to her a hepatobiliary scan without cholecystokinin. The examination would simply be done in order to see if the gallbladder fills to help exclude acute cholecystitis. I do not want CCK as to not stimulate a stone in the common duct. I have strongly counseled the patient that I do not believe I will have a surgical option for her unless she is better able to medical maximize her care. I suggested and offered referral to pulmonology as I believe that her pulmonary function is significantly compromised. I do not believe at this point that she would tolerate a general anesthetic and would likely have to maintained on a ventilator. I have cautioned her greatly that I believe that her elevated liver function tests are secondary to combination of alcohol and acetaminophen. The patient states that she is dependent upon the acetaminophen since she was excluded from the pain specialty clinic. I do not have a resolution for her in this regard. I deem her currently a high risk surgical patient. I do not believe that at this point she has acute cholecystitis and unfortunately I do not believe that she is a surgical candidate at this time. I have vigorously encouraged her to work on tobacco use cessation and alcohol cessation and working with her primary care physician in improving her general health and pulmonology referral. We will assist with a hepatobiliary scan to assess for possible acute cholecystitis. We will also perform an upper endoscopy to try to assist with the primary complaint of nausea and vomiting. I appreciate the opportunity of assisting with her surgical care Copy: Dr Geovani Solano M.D., F.A.C.S. Coding Level of Care Code 55714 Diagnoses Elevated liver enzymes R74.8 Cholelithiasis K80.20 Cholelithiasis location: gallbladder Cholecystitis presence: without cholecystitis Biliary obstruction: without biliary obstruction COPD Cough R05 Nausea & vomiting R11.2 Vomiting type: unspecified Vomiting Intractability: unspecified Diarrhea R19.7 Diarrhea type: unspecified type A hepatobiliary scan that was performed for the patient on June 25, 2021 demonstrates prompt filling by a normal size liver. Gallbladder activity was not identified at 60 minutes. It was identified at 90 minutes. Small bowel was identified at 30 minutes. Washout appeared normal. Findings were felt to be consistent with chronic cholecystitis. Manuel Solano M.D., F.A.C.S.
--- NOTE | 2021-07-01 06:42 | OP.EGD_ITS ---
Patient Name: Aisha Ha Procedure Date: 07/01/2021 6:17 AM Date of : 1965 Age: 56 Procedure: Upper GI endoscopy Indications: Epigastric abdominal pain Providers: Manuel Solano MD Medicines: See the Anesthesia note for documentation of the administered medications Complications: No immediate complications. Procedure: Pre-Anesthesia Assessment: - Prior to the procedure, a History and Physical was performed, and patient medications and allergies were reviewed. The patient's tolerance of previous anesthesia was also reviewed. The risks and benefits of the procedure and the sedation options and risks were discussed with the patient. All questions were answered, and informed consent was obtained. Prior Anticoagulants: The patient has taken no previous anticoagulant or antiplatelet agents. ASA Grade Assessment: III - A patient with severe systemic disease. After reviewing the risks and benefits, the patient was deemed in satisfactory condition to undergo the procedure. After obtaining informed consent, the endoscope was passed under direct vision. Throughout the procedure, the patient's blood pressure, pulse, and oxygen saturations were monitored continuously. The Endoscope was introduced through the mouth, and advanced to the second part of duodenum. The upper GI endoscopy was accomplished without difficulty. The patient tolerated the procedure well. Scope In: 6:32:26 AM Scope Out: 6:36:03 AM Total Procedure Duration Time 0 hours 3 minutes 37 seconds Findings: The examined esophagus was normal. The Z-line was variable and was found 38 cm from the incisors. Biopsies were taken with a cold forceps for histology. Diffuse moderate inflammation was found in the gastric antrum. Biopsies were taken with a cold forceps for histology. The examined duodenum was normal. Biopsies were taken with a cold forceps for histology. Impression: - Normal esophagus. - Z-line variable, 38 cm from the incisors. Biopsied. - Chronic gastritis. Biopsied. - Normal examined duodenum. Biopsied. Recommendation: - Discharge patient to home. - Resume previous diet. - Continue present medications. - Return to my office in 2 weeks Chronic gastritis. Will await pathology. Patient is already on proton pump inhibitor therapy. Abnormal hepatobiliary scan. Will consider offering the patient a laparoscopic cholecystectomy with selective cholangiography for suspected chronic cholecystitis cholelithiasis. I am hopeful for maximization of her medical status preoperatively.. - Refer to Lineman Service Or Work Dispatcher. Procedure Code(s): --- Professional --- 07403, Esophagogastroduodenoscopy, flexible, transoral; with biopsy, single or multiple Diagnosis Code(s): --- Professional --- K22.8, Other specified diseases of esophagus K29.50, Unspecified chronic gastritis without bleeding R10.13, Epigastric pain CPT copyright 2017 [employer]. All rights reserved. The codes documented in this report are preliminary and upon media developer review may be revised to meet current compliance requirements. Manuel Solano MD 07/01/2021 6:41:37 AM This report has been signed electronically. Number of Addenda: 0 Note Initiated On: 07/01/2021 6:17 AM
--- NOTE | 2021-07-01 06:42 | OP.CCLET_ITS ---
07/01/2021 Geovani Mancia Re : Upper GI endoscopy procedure for Aisha Ha Dear Gavino This procedure was performed on June. My impressions and recommendations are as follows: Impressions : - Normal esophagus. - Z-line variable, 38 cm from the incisors. Biopsied. - Chronic gastritis. Biopsied. - Normal examined duodenum. Biopsied. Recommendations : - Discharge patient to home. - Resume previous diet. - Continue present medications. - Return to my office in 2 weeks Chronic gastritis. Will await pathology. Patient is already on proton pump inhibitor therapy. Abnormal hepatobiliary scan. Will consider offering the patient a laparoscopic cholecystectomy with selective cholangiography for suspected chronic cholecystitis cholelithiasis. I am hopeful for maximization of her medical status preoperatively.. - Refer to Agency Service Representative. My findings are described in the full procedure note, which is enclosed. If I can be of further assistance, please feel free to contact me at Doctor phone number(s): Work: . Sincerely, Manuel Solano MD 07/01/2021 6:41:37 AM This report has been signed electronically.
== END 2021-07-01 07:15 | disposition home or self-care (01) ==
LOC: EN 05:15 → AC 05:15
PROVIDERS: PCP Family Medicine; Referring Provider Family Medicine; Visit Provider Surgery
PROC: 0DJ08ZZ Inspection of Upper Intestinal Tract, Via Natural or Artificial Opening Endoscopic (ICD-10-PCS; CPT 43235; principal; 2021-07-01 06:25)
DX: K22.8 Other specified diseases of esophagus (principal); K29.50 Unspecified chronic gastritis without bleeding; R10.13 Epigastric pain; R11.2 Nausea with vomiting, unspecified; R94.5 Abnormal results of liver function studies; K21.9 Gastro-esophageal reflux disease without esophagitis; I10 Essential (primary) hypertension; E78.00 Pure hypercholesterolemia, unspecified; J44.9 Chronic obstructive pulmonary disease, unspecified; G40.909 Epilepsy, unspecified, not intractable, without status epilepticus; M79.7 Fibromyalgia; M19.90 Unspecified osteoarthritis, unspecified site; F17.210 Nicotine dependence, cigarettes, uncomplicated; F32.9 Major depressive disorder, single episode, unspecified; F41.9 Anxiety disorder, unspecified; E66.9 Obesity, unspecified; Z68.34 Body mass index [BMI] 34.0-34.9, adult; Z79.899 Other long term (current) drug therapy
CPT/HCPCS: 43239; 88305; 88342; J7120; J2405

== ENCOUNTER → 2021-08-27 09:19 | Outpatient (CLI) | payer MEDICAID, SELFPAY ==
--- NOTE | 2021-08-27 12:52 | PFT ---
INTRODUCTION: The patient is a 56-year-old female that presents for pulmonary function studies secondary to a diagnosis of COPD. Respiratory therapy reported good patient effort. Bronchodilators were used during testing. INTERPRETATION: Forced expiration spirometry demonstrates the presence of a moderate large airways obstructive ventilatory defect. There was a significant response to aerosolized bronchodilators noted. Spirograms are of good quality and plateau gradually indicating slow emptying of the lungs. Body plethysmography was performed and revealed an elevated RV to 191% of predicted, indicative of underlying air trapping. Diffusing capacity by single breath CO was mildly reduced at 66% of predicted. IMPRESSION: Moderate large airways obstructive ventilatory defect with significant bronchodilator response and associated air trapping. Diffusing capacity is mildly reduced.
== END ==
PROVIDERS: PCP Family Medicine; Referring Provider Internal Medicine Critical Care Medicine; Visit Provider Internal Medicine Critical Care Medicine
DX: J44.9 Chronic obstructive pulmonary disease, unspecified (principal)
CPT/HCPCS: 94060; 94726; 94729

== ENCOUNTER → 2021-09-23 13:39 | Outpatient (CLI) | payer MEDICAID, SELFPAY ==
[2021-09-23 14:07] VITALS: PULSE 73; PULSE 75; PULSE 85; PULSE 87; PULSE 88; PULSE 91; O2SAT 90; O2SAT 91; O2SAT 92; O2SAT 93; O2SAT 94
--- NOTE | 2021-09-24 10:14 | WT_ITS ---
PSN 6 Minute Walk Test 6 Minute Walk Test 6 Minute Walk Test: 6 Minute Walk Test PSN:6-Minute Walk Test Start: 09/23/21 14:07 Freq: Status: Active Protocol: [id number] Document 09/23/21 14:07 [facility] (Rec: 09/23/21 14:11 [facility] [id number]) 6 Minute Walk Test Date Performed 09/23/21 Time Performed 13:45 Height 5 ft Weight: 81.647 kg Weight in Pounds 180.[address]: Mo Sanchez Assistive device used: Cane Pre-test Oxygen Delivery Method Room Air Pulse Ox (%) 94 Pulse Rate (60-100 beats/min) 73 Dyspnea Domitila Scale (0-10) 3 Reported Symptoms Increased Work of Breathing 1st minute Oxygen Delivery Method Room Air Pulse Ox (%) 92 Pulse Rate (60-100 beats/min) 88 Dyspnea Domitila Scale (0-10) 4 Number of Rests Taken 0 Reported Symptoms Increased Work of Breathing 2nd minute Oxygen Delivery Method Room Air Pulse Ox (%) 90 Pulse Rate (60-100 beats/min) 91 Dyspnea Domitila Scale (0-10) 5 Number of Rests Taken 0 Reported Symptoms Increased Work of Breathing 3rd minute Oxygen Delivery Method Room Air Pulse Ox (%) 91 Pulse Rate (60-100 beats/min) 91 Dyspnea Domitila Scale (0-10) 5 Number of Rests Taken 1 Reported Symptoms Increased Work of Breathing 4th minute Oxygen Delivery Method Room Air Pulse Ox (%) 90 Pulse Rate (60-100 beats/min) 85 Dyspnea Domitila Scale (0-10) 4 Number of Rests Taken 1 Reported Symptoms Increased Work of Breathing 5th minute Oxygen Delivery Method Room Air Pulse Ox (%) 92 Pulse Rate (60-100 beats/min) 87 Dyspnea Domitila Scale (0-10) 4 Number of Rests Taken 0 Reported Symptoms Increased Work of Breathing 6th minute Oxygen Delivery Method Room Air Pulse Ox (%) 90 Pulse Rate (60-100 beats/min) 91 Dyspnea Domitila Scale (0-10) 5 Number of Rests Taken 0 Reported Symptoms Increased Work of Breathing Post-test Oxygen Delivery Method Room Air Pulse Ox (%) 93 Pulse Rate (60-100 beats/min) 75 Dyspnea Domitila Scale (0-10) 3 Reported Symptoms Increased Work of Breathing Full Laps Walked 6 Partial Lap, Number of Tiles Walked 17 Total Distance Walked (ft) 371 Interpretation Interpretation: The patient ambulated 371 feet over the course of 6 minutes beginning on room air with the use of a cane. Pretesting oxygen saturation was noted to be 94% on room air. With ambulation, the zen oxygen saturation was 90%. This testing indicated the presence of impaired walk distance and significant exertional oxygen desaturation. Recommendations Recommendations: There is no indication for the use of supplemental oxygen at this time. However, close interval follow-up is recommended, given the degree of oxygen desaturation noted during the study.
--- NOTE | 2021-10-28 12:18 | EKG12_ITS ---
Test Reason : PRE-OP Blood Pressure : / mmHG Vent. Rate : 077 BPM Atrial Rate : 077 BPM P-R Int : 162 ms QRS Dur : 086 ms QT Int : 392 ms P-R-T Axes : 078 082 069 degrees QTc Int : 443 ms Normal sinus rhythm Nonspecific ST abnormality Abnormal ECG Confirmed by MILLER KENT, CARLOS ([id number]), story editor SANDRINE PEREZ ([id number]) on 10/29/2021 9:36:05 AM Referred By: Mo Sanchez Confirmed By:CARLOS BHATT MD
== END ==
PROVIDERS: PCP Family Medicine; Referring Provider Internal Medicine Critical Care Medicine; Visit Provider Internal Medicine Critical Care Medicine
DX: J44.9 Chronic obstructive pulmonary disease, unspecified (principal)
CPT/HCPCS: 94618

== ENCOUNTER 2022-01-06 12:52 | Outpatient (CLI) | payer MEDICAID, SELFPAY ==
[2021-10-28 14:25] LABS: Hematocrit 41.1 % (37-47); Hemoglobin 13.4 g/dL (12.0-15.0); Mean Corp Hgb Conc 32.6 g/dL (32-36); Mean Corpuscular Hgb 34.9 pg (27.0-32.0); Mean Platelet Vol. 11.2 fl (6.2-12.0); Platelet Count 227 K/mm3 (150-450); RBC Distribution Width CV 14.4 % (11.6-14.6); RBC Distribution Width SD 57.5 fl (35.1-43.9); Red Blood Count 3.84 M/mm3 (4.2-5.4); White Blood Count 7.5 K/mm3 (4.4-11.0)
[2021-10-28 14:37] LABS: Prothrombin Time (Protime)PT. 12.8 SECONDS (11.7-14.9)
[2021-10-28 14:55] LABS: AST(SGOT) 27 U/L (15-37); Alanine Aminotransfer ALT/SGPT 29 U/L (13-56); Albumin, Serum 3.4 g/dL (3.2-5.0); Alkaline Phosphatase 118 U/L (45-117); Anion Gap 6 (5-15); BUN 4 mg/dL (7-18); BUN/Creat Ratio 8.9 RATIO (10-20); Bilirubin, Direct 0.18 mg/dL (0.00-0.30); Calcium,Total 9.4 mg/dL (8.5-10.1); Chloride 98 mmol/L (98-107); Creatinine, Serum 0.45 mg/dL (0.55-1.02); EST Glomerular Filtration Rate 153 mL/min (>60); Est Glom Filt Rate - Afr Amer 185 mL/min (>60); Globulin 5.2 g/dL (2.2-4.2); Glucose 85 mg/dL (74-106); Protein, Total 8.6 g/dL (6.4-8.2); Sodium Level 134 mmol/L (136-145)
== END 2022-01-06 23:59 | disposition home or self-care (01) ==
LOC: SDC 12:53
PROVIDERS: Anesthesiology; PCP Family Medicine; Referring Provider Surgery; Visit Provider Surgery
DX: Z01.812 Encounter for preprocedural laboratory examination (principal); K80.20 Calculus of gallbladder without cholecystitis without obstruction
CPT/HCPCS: 36415; 80048; 80076; 85027; 85610; 85730; 93005

== ENCOUNTER 2023-01-02 08:46 | Day surgery (SDC) | payer MEDICAID, SELFPAY ==
[2023-01-02] VITALS (7 sets, daily range): BP systolic 98–150; BP diastolic 48–86; PULSE 60–83; RESP 16–18; TEMP 36.5–36.7; O2SAT 92–93; BMI 31.4
--- NOTE | 2023-01-02 09:00 | HP.PCM_ITS ---
History and Physical Date of Admission: 01/02/23 Chief Complaint: wants colonoscopy Details: FELIX NETTLES, is a 57 F who presents to the office today requesting a colonoscopy for hx of colon polyps. She reports hx of numerous polyps, is overdue for colonoscopy. She had EGD in 06/2021 by general surgeon--chronic gastritis, negative Millard's. She has chronic nausea and frequent diarrhea but states she isn't hear today to address those, just interested in scheduling colonoscopy. She states she knows her GI symptoms are probably due to her drinking: I'm an alcoholic. Had cholecystectomy 04/2022 in [place], no change in GI symptoms after surgery. Takes ondansetron for chronic nausea.? No heartburn. On PPI therapy. Has decreased appetite, early satiety. Intermittent diarrhea, 2x per day, yellow balls in her stool. No melena or hematochezia. No abd pain. ROS Const Constitutional: Positive for headache(s); No fatigue ENT ENT: Positive for headache(s); No difficulty swallowing Cardio Cardiology: Positive for leg pain with exertion Gastro GI: No abdominal pain, belching, bloating, change in bowel habits, change in stool character, coffee ground emesis, constipation, cramping, diarrhea, heartburn, difficulty swallowing, feeling full early, excessive flatus, incontinent of stools, Vomiting blood/hematemesis, Blood in stool, loose stools, Black,tarry stools, nausea/dyspepsia, pain with swallowing, vomiting or other Musc Musculoskeletal: Positive for abnormal gait, joint pain, back pain, joint swelling, muscle cramps, muscle weakness, stiffness, Arthritis and leg pain with exertion Skin Skin: No yellowing of the eye or itchy eyes Neuro Neurology: Positive for abnormal gait, dizziness, headache(s), tremor(s) and seizures Psych Psychiatric: Positive for anxiety, Positive for depression and Positive for paranoia Endo Endocrine: No fatigue Aller/Imm Allergy/Immunologic: No itchy eyes Case/Lymp Hematologic/Lymphatic: Positive for easy bruising; No easy bleeding Exam Const General: cooperative and anxious Orientation: alert, awake and oriented x3 Other: in wheelchair Eyes Sclera: sclerae normal Resp Effort & Inspection: normal respiratory effort Skin General: no jaundice Quality Reporting Tobacco Screening ([facility] 138) Smoking Status: Current every day smoker Assessment and Plan Assessment and Plan (1) Colon polyps: ?Status:?Acute ?Plan: 57 yr old female with hx colon polyps, GERD, chronic nausea, and alcoholism will be scheduled for EGD to evaluate for esophagitis, Millard's, varices, gastropathy, peptic ulcer disease and colonoscopy due to history of colon polyps.? She will have follow-up in the office 2 weeks afterwards to review biopsy results.? She states she is not interested in help with quitting alcohol. (2) Nausea: ?Status:?Acute ?Plan: see above (3) Gastric reflux: ?Status:?Acute ?Plan: see above (4) Alcohol use disorder: ?Status:?Acute ?Plan: see above ? ? ? Medications: Discontinued promethazine ?? Discontinued Reason:? Pt no longer taking 25 mg? PO TID PRN 10 tabs 0RF nausea and vomiting ? ? I have examined the patient and the H&P has been reviewed. There are no clinical changes since date of exam. [id number]
[2023-01-02] MEDS: Lactated Ringers 1,000 ML 15 ML IV (09:11)
[2023-01-02] MEDS: Ipratropium/Albuterol Sulfate 3 ML AMPUL.NEB INHALATION (09:24)
--- NOTE | 2023-01-02 10:00 | EGD_PTH ---
PATIENT: FELIX NETTLES LOC: EN U#:[id number] AGE/SX: 57/F ROOM: RE01/02/[address]: Dr. Cal Bahena DO : 1965 BED: DIS: 01/02/2023 SPEC #: [id number] RECD: 01/02/23 13:21 STATUS: TRISTEN SAVAGECamron #: [id number] SENAIT: 01/02/23 10:[address]: Cal Bahena DEPT: SURGICAL PATHOLOGY RECD BY: Araceli Nguyen ENTERED: 01/02/23 13:34 SP TYPE: EGD BIOPSY ZORAIDA DR: Dr. Geovani Mancia MD Tissues: A - Gastric mucous membrane B - Rectum, NOS Procedures: Surgery Specimen Level IV HEADER OPERATION: Colonoscopy, EGD ([facility]), biopsy PRE-OP DIAGNOSIS: Colon polyps, gastric reflux, nausea TISSUE SUBMITTED: A ? Gastric body biopsy, B ? Polyp rectum biopsy MICROSCOPIC DIAGNOSIS A. Gastric body, biopsy: Mild gastritis. See microscopic description and comment. B. Polyp rectum, biopsy: Hyperplastic polyp. LEONEL:carolynn 01/03/2023 COMMENT A. The results of immunohistochemistry for Helicobacter pylori will be reported separately ([id number]). MICROSCOPIC DESCRIPTION Slides are reviewed. A. The specimen shows fragments of gastric mucosa with chronic inflammatory cell infiltrates in the lamina propria consisting of lymphocytes and plasma cells, consistent with mild chronic gastritis. GROSS DESCRIPTION A - Received in fixative is one container labeled with the patient's name and designated biopsy gastric body. The specimen consists of two irregular fragments of light guadalupe soft tissue that in aggregate measure 0.6 x 0.3 x 0.1 cm. The specimen is totally submitted in one cassette. B - Received in fixative is one container labeled with the patient's name and designated biopsy polyp rectum. The specimen consists of one irregular fragment of light guadalupe soft tissue that measures 0.3 x 0.2 x 0.1 cm. The specimen is totally submitted in one cassette. / LEONEL:carolynn 01/02/2023 TC:1 CPT: 39542 x2
--- NOTE | 2023-01-02 10:00 | IMM_PTH ---
PATIENT: FELIX NETTLES LOC: EN U#:[id number] AGE/SX: 57/F ROOM: RE01/02/[address]: Dr. Cal Bahena DO : 1965 BED: DIS: 01/02/2023 SPEC #: [id number] RECD: 01/02/23 14:18 STATUS: TRISTEN REQ #: [id number] SENAIT: 01/02/23 10:[address]: Cal Bahena DEPT: IMMUNOHISTOCHEMISTRY RECD BY: Jenny Oliveira ENTERED: 01/02/23 14:18 SP TYPE: IMMUNO OTHR DR: Dr. Geovani Mancia MD Tissues: A - Stomach, NOS Procedures: H Pylori (initial) PHYSICIAN & INSTITUTION [place] [id number] SPECIMEN INFORMATION: Tissue Source: A - Gastric body biopsy Clinical Info: Colon polyps, gastric reflux, nausea Specimen Number: [id number] CPT code: 00567 METHODOLOGY: Deparaffinized sections of prefer/formalin-fixed tissue or PAP/DQ stained slides are incubated with monoclonal/polyclonal antibodies/oligonucleotide probes. Localization is made via biotin free immunoperoxidase method. Appropriate controls are performed and reacted as expected. Results on target cell population are indicated in the following table: RESULTS: ANTIBODY / CLONE RESULT Block A H Pylori (polyclonal) negative These tests were developed and their performance characteristics determined by [facility]. They may not have been cleared or approved by the U.[place]. Food and Drug Administration. The FDA has determined that such clearance or approval is not necessary. The above immunohistochemical/dualISH markers are ordered and reviewed by the Pathologist. INTERPRETATION: A. Gastric body, biopsy: Negative for Helicobacter pylori organisms. SJ:carolynn 01/03/2023
--- NOTE | 2023-01-02 11:05 | OP.CCLET_ITS ---
01/02/2023 Geovani Mancia Re : Upper GI endoscopy procedure for Aisha Ha Dear Gavino This procedure was performed on Monday, January 02, 2023. My impressions and recommendations are as follows: Impressions : - Grade I esophageal varices. - Portal hypertensive gastropathy. Biopsied. - Type 1 isolated gastric varices (IGV1, varices located in the fundus), without bleeding. - Normal second portion of the duodenum. Recommendations : - Discharge patient to home. - Resume previous diet. - Continue present medications. - Await pathology results. - Repeat upper endoscopy in 6 months for surveillance. My findings are described in the full procedure note, which is enclosed. If I can be of further assistance, please feel free to contact me at . Sincerely, Cal Bahena, 01/02/2023 11:04:35 AM This report has been signed electronically.
--- NOTE | 2023-01-02 11:05 | OP.EGD_ITS ---
Patient Name: Aisha Ha Procedure Date: 01/02/2023 10:24 AM Date of : 1965 Age: 57 Procedure: Upper GI endoscopy Indications: Epigastric abdominal pain Providers: Cal Bahena DO Medicines: Monitored Anesthesia Care Patient Profile: This is a 57 year old female. Refer to note in patient chart for documentation of history and physical. Patient has symptoms of chronic abdominal cramping, acute epigastric abdominal pain and chronic nausea. Complications: No immediate complications. Procedure: Pre-Anesthesia Assessment: - Prior to the procedure, a History and Physical was performed, and patient medications and allergies were reviewed. The risks and benefits of the procedure and the sedation options and risks were discussed with the patient. All questions were answered and informed consent was obtained. Patient identification and proposed procedure were verified by the physician in the pre-procedure area. Mental Status Examination: alert and oriented. Airway Examination: normal oropharyngeal airway and neck mobility. Respiratory Examination: clear to auscultation. CV Examination: normal. Prophylactic Antibiotics: The patient does not require prophylactic antibiotics. Prior Anticoagulants: The patient has taken no previous anticoagulant or antiplatelet agents. After reviewing the risks and benefits, the patient was deemed in satisfactory condition to undergo the procedure. The anesthesia plan was to use monitored anesthesia care (MAC). Immediately prior to administration of medications, the patient was re-assessed for adequacy to receive sedatives. The heart rate, respiratory rate, oxygen saturations, blood pressure, adequacy of pulmonary ventilation, and response to care were monitored throughout the procedure. The physical status of the patient was re-assessed after the procedure. After obtaining informed consent, the endoscope was passed under direct vision. Throughout the procedure, the patient's blood pressure, pulse, and oxygen saturations were monitored continuously. The pediatric colonoscope was introduced through the mouth, and advanced to the second part of duodenum. The upper GI endoscopy was accomplished without difficulty. The patient tolerated the procedure well. Scope In: 10:35:51 AM Scope Out: 10:39:34 AM Total Procedure Duration Time 0 hours 3 minutes 43 seconds Findings: Grade I varices were found in the lower third of the esophagus. They were 5 mm in largest diameter. Moderate portal hypertensive gastropathy was found in the stomach. Biopsies were taken with a cold forceps for histology. Verification of patient identification for the specimen was done. Estimated blood loss was minimal. Type 1 isolated gastric varices (IGV1, varices located in the fundus) with no bleeding were found in the gastric fundus. There were no stigmata of recent bleeding. They were 2 mm in largest diameter. The second portion of the duodenum was normal. Impression: - Grade I esophageal varices. - Portal hypertensive gastropathy. Biopsied. - Type 1 isolated gastric varices (IGV1, varices located in the fundus), without bleeding. - Normal second portion of the duodenum. Recommendation: - Discharge patient to home. - Resume previous diet. - Continue present medications. - Await pathology results. - Repeat upper endoscopy in 6 months for surveillance. Procedure Code(s): --- Professional --- 47099, Esophagogastroduodenoscopy, flexible, transoral; with biopsy, single or multiple CPT copyright 2017 [employer]. All rights reserved. The codes documented in this report are preliminary and upon painting supervisor review may be revised to meet current compliance requirements. Cal Bahena DO 01/02/2023 11:04:35 AM This report has been signed electronically. Number of Addenda: 0 Note Initiated On: 01/02/2023 10:24 AM
--- NOTE | 2023-01-02 11:08 | OP.COLON_ITS ---
Patient Name: Aisha Ha Procedure Date: 01/02/2023 10:40 AM Date of : 1965 Age: 57 Procedure: Colonoscopy Indications: Follow-up for history of adenomatous polyps in the colon Providers: Cal Bahena DO Medicines: Monitored Anesthesia Care Patient Profile: This is a 57 year old female. Refer to note in patient chart for documentation of history and physical. Patient has symptoms of chronic abdominal cramping, acute epigastric abdominal pain and chronic nausea. Last Colonoscopy: 5 years ago. Complications: No immediate complications. Procedure: Pre-Anesthesia Assessment: - Prior to the procedure, a History and Physical was performed, and patient medications and allergies were reviewed. The risks and benefits of the procedure and the sedation options and risks were discussed with the patient. All questions were answered and informed consent was obtained. Patient identification and proposed procedure were verified by the physician in the pre-procedure area. Mental Status Examination: alert and oriented. Airway Examination: normal oropharyngeal airway and neck mobility. Respiratory Examination: clear to auscultation. CV Examination: normal. Prophylactic Antibiotics: The patient does not require prophylactic antibiotics. Prior Anticoagulants: The patient has taken no previous anticoagulant or antiplatelet agents. After reviewing the risks and benefits, the patient was deemed in satisfactory condition to undergo the procedure. The anesthesia plan was to use monitored anesthesia care (MAC). Immediately prior to administration of medications, the patient was re-assessed for adequacy to receive sedatives. The heart rate, respiratory rate, oxygen saturations, blood pressure, adequacy of pulmonary ventilation, and response to care were monitored throughout the procedure. The physical status of the patient was re-assessed after the procedure. After I obtained informed consent, the scope was passed under direct vision. Throughout the procedure, the patient's blood pressure, pulse, and oxygen saturations were monitored continuously. The pediatric colonoscope was introduced through the anus and advanced to the cecum, identified by appendiceal orifice and ileocecal valve. The colonoscopy was performed without difficulty. The patient tolerated the procedure well. The quality of the bowel preparation was fair. Scope In: 10:42:41 AM Scope Withdrawal Time 0 hours 11 minutes 24 seconds Scope Out: 10:58:05 AM Total Procedure Duration Time 0 hours 15 minutes 24 seconds Findings: The perianal exam findings include internal hemorrhoids that prolapse with straining, but require manual replacement into the anal canal (Grade III) and hypertrophied anal papilla(e). Non-bleeding external and internal hemorrhoids were found during retroflexion. The hemorrhoids were Grade III (internal hemorrhoids that prolapse but require manual reduction). A few small-mouthed diverticula were found in the recto-sigmoid colon, sigmoid colon and descending colon. A 5 mm polyp was found in the recto-sigmoid colon. The polyp was sessile. The polyp was removed with a cold snare. Resection and retrieval were complete. Verification of patient identification for the specimen was done. Estimated blood loss was minimal. Impression: - Preparation of the colon was fair. - Internal hemorrhoids that prolapse with straining, but require manual replacement into the anal canal (Grade III) and hypertrophied anal papilla(e) found on perianal exam. - Non-bleeding external and internal hemorrhoids. - Diverticulosis in the recto-sigmoid colon, in the sigmoid colon and in the descending colon. - One 5 mm polyp at the recto-sigmoid colon, removed with a cold snare. Resected and retrieved. Recommendation: - Repeat colonoscopy in 5 years for surveillance. - Continue present medications. Procedure Code(s): --- Professional --- 00901, Colonoscopy, flexible; with removal of tumor(s), polyp(s), or other lesion(s) by snare technique CPT copyright 2017 [employer]. All rights reserved. The codes documented in this report are preliminary and upon senior software qa engineer review may be revised to meet current compliance requirements. Cal Bahena DO 01/02/2023 11:08:23 AM This report has been signed electronically. Number of Addenda: 0 Note Initiated On: 01/02/2023 10:40 AM
--- NOTE | 2023-01-02 11:09 | OP.CCLET_ITS ---
01/02/2023 Geovani Mancia Re : Colonoscopy procedure for Aisha Ha Dear Gavino This procedure was performed on Monday, January 02, 2023. My impressions and recommendations are as follows: Impressions : - Preparation of the colon was fair. - Internal hemorrhoids that prolapse with straining, but require manual replacement into the anal canal (Grade III) and hypertrophied anal papilla(e) found on perianal exam. - Non-bleeding external and internal hemorrhoids. - Diverticulosis in the recto-sigmoid colon, in the sigmoid colon and in the descending colon. - One 5 mm polyp at the recto-sigmoid colon, removed with a cold snare. Resected and retrieved. Recommendations : - Repeat colonoscopy in 5 years for surveillance. - Continue present medications. My findings are described in the full procedure note, which is enclosed. If I can be of further assistance, please feel free to contact me at . Sincerely, Cal Bahena, 01/02/2023 11:08:23 AM This report has been signed electronically.
== END 2023-01-02 11:43 | disposition home or self-care (01) ==
LOC: EN 08:47 → AC 08:49
PROVIDERS: PCP Family Medicine; Referring Provider Family Medicine; Visit Provider Internal Medicine Gastroenterology
PROC: 0DJD8ZZ Inspection of Lower Intestinal Tract, Via Natural or Artificial Opening Endoscopic (ICD-10-PCS; CPT 45378; principal; 2023-01-02 09:55)
DX: K62.1 Rectal polyp (principal); K76.6 Portal hypertension; I85.00 Esophageal varices without bleeding; K29.70 Gastritis, unspecified, without bleeding; I86.4 Gastric varices; K64.4 Residual hemorrhoidal skin tags; K64.2 Third degree hemorrhoids; K21.9 Gastro-esophageal reflux disease without esophagitis; K57.30 Diverticulosis of large intestine without perforation or abscess without bleeding; F17.210 Nicotine dependence, cigarettes, uncomplicated; F41.9 Anxiety disorder, unspecified; J45.909 Unspecified asthma, uncomplicated; F32.A Depression, unspecified; E78.00 Pure hypercholesterolemia, unspecified; I10 Essential (primary) hypertension; Z79.899 Other long term (current) drug therapy; Z86.010 Personal history of colon polyps
CPT/HCPCS: 43239; 45385; 88305; 88342; 94640; J7120; J2405

== ENCOUNTER → 2023-01-16 | Outpatient (CLI) | payer MEDICAID, SELFPAY ==
[2023-01-16 12:34] LABS: International Normalized Ratio 1.1; Prothrombin Time (Protime)PT. 13.9 SECONDS (11.7-14.9)
[2023-01-16 12:40] LABS: Erythrocyte Sedimentation Rate 69 mm/hr (0-30)
[2023-01-16 12:47] LABS: Absolute Lymphocyte Count 1.81 X10^3/uL (0.83-4.51); Absolute Neutrophil Count 3.7 X10^3/uL (2.0-7.7); Basophil# 0.05 X10^3/uL; Basophil% 0.8 % (0-1); Eosinophil# 0.06 X10^3/uL; Hemoglobin 13.1 g/dL (12.0-15.0); Lymphocyte # 1.81 X10^3/ul (0.83-4.51); Lymphocyte % 30.1 % (19-41); Mean Corp Hgb Conc 34.5 g/dL (32-36); Mean Corpuscular Hgb 34.8 pg (27.0-32.0); Mean Corpuscular Volume 101.1 fL (81-99); Mean Platelet Vol. 10.1 fl (6.2-12.0); Monocyte# 0.42 X10^3/uL; NRBC Flagged by Analyzer 0 % (0-5); Neutrophil # 3.66 X10^3/uL (2.7-7.7); Neutrophil % 60.8 % (47-70); Platelet Count 166 K/mm3 (150-450); RBC Distribution Width CV 16.2 % (11.6-14.6); RBC Distribution Width SD 61.1 fl (35.1-43.9); Red Blood Count 3.76 M/mm3 (4.2-5.4)
[2023-01-16 13:20] LABS: ALB/GLOB Ratio 0.6 RATIO (0.9-2.4); AST(SGOT) 268 U/L (15-37); Alanine Aminotransfer ALT/SGPT 65 U/L (13-56); Albumin, Serum 2.9 g/dL (3.2-5.0); Alkaline Phosphatase 228 U/L (45-117); Anion Gap 6 (5-15); BUN 5 mg/dL (7-18); BUN/Creat Ratio 13.6 RATIO (10-20); CRP < 2.90 mg/L (0.0-3.0); Calcium,Total 8.7 mg/dL (8.5-10.1); Chloride 96 mmol/L (98-107); Creatinine, Serum 0.37 mg/dL (0.55-1.02); EST Glomerular Filtration Rate 191 mL/min (>60); Est Glom Filt Rate - Afr Amer 231 mL/min (>60); Ferritin 44 ng/mL (8-252); Globulin 4.8 g/dL (2.2-4.2); Glucose 78 mg/dL (74-106); LDH 304 U/L (84-246); Potassium 3.3 mmol/L (3.5-5.1); Protein, Total 7.7 g/dL (6.4-8.2); Sodium Level 129 mmol/L (136-145)
[2023-01-16 13:38] LABS: HIV - WCH Non-Reactive (Nonreactive)
[2023-01-18 00:07] LABS: Angiotensin Convert Enzyme < 15 U/L (14-82); Ceruloplasmin 30.6 mg/dL (19.0-39.0); Cytoplasmic Ab (C-ANCA) <1:20 titer (Neg:<1:20); HEPATITIS B SURFACE AG Negative (Negative); Hep C Antibodies Non Reactive (Non Reactive); Hepatitis A IgM Antibody Negative (Negative); Hepatitis B Core AB IgM Negative (Negative)
[2023-01-18 10:00] LABS: AFP, Tumor Marker 3.7 ng/mL (0.0-9.2); Anti-Smooth Muscle ABS 24 Units (0-19); Copper, Serum or Plasma 157 ug/dL (80-158); Haptoglobin 117 mg/dL (33-346); Perinuclear Ab (P-ANCA) <1:20 titer (Neg:<1:20)
[2023-01-18 11:09] LABS: Anti-Centromere B Ab <0.2 AI (0.0-0.9); Anti-Chromatin 6.6 AI (0.0-0.9); Anti-Jo <0.2 AI (0.0-0.9); Anti-Scleroderma-70 AB <0.2 AI (0.0-0.9); RNP Ab 0.8 AI (0.0-0.9); SJOGREN'S Anti-SS-A test < 0.2 AI (0.0-0.9); SJOGREN'S Anti-SS-B test < 0.2 AI (0.0-0.9); Smith Ab <0.2 AI (0.0-0.9)
[2023-01-18 11:24] LABS: Anti-Mitochondrial AB <20.0 Units (0.0-20.0); Anti-dsDNA Ab 13 IU/mL (0-9)
== END | disposition home or self-care (01) ==
LOC: LAB 12:01
PROVIDERS: PCP Family Medicine; Referring Provider Nurse Practitioner Adult Health; Visit Provider Nurse Practitioner Adult Health
DX: K74.60 Unspecified cirrhosis of liver (principal)
CPT/HCPCS: 36415; 80053; 80074; 82105; 82140; 82164; 82390; 82525; 82728; 83010; 83036; 83516; 83615; 85025; 85610; 85652; 86140; 86225; 86235; 86256; 86703

== ENCOUNTER → 2023-01-30 | Outpatient (CLI) | payer MEDICAID, SELFPAY ==
--- NOTE | 2023-01-30 09:49 | US_ITS ---
STUDY: ABDOMINAL ULTRASOUND - ELASTOGRAPHY REASON FOR VISIT: Female, 57 years old. Cirrhosis. TECHNIQUE: Liver stiffness measurements were obtained on a Subblime RS 85 ultrasound machine using a CA 1-7 probe following the SRU guidelines. 3 measurements were obtained using a 2-D-SWE method. TheIQR/M was 16% suggesting a quality data set. TECHNICAL QUALITY: Adequate. COMPARISON: Comparison is made with prior study done earlier today. FINDINGS: Liver: Hepatomegaly and fatty infiltration of the liver. Median liver stiffness measured 14 kPa. Abdomen: There is no demonstrated mass lesion. US/Elastography Parenchyma/Organ IMPRESSION: Liver stiffness measures 14 kPa compatible with F3-F4 (Moderate to severe liver fibrosis) Metavir score. Electronically Signed: Dilshad Lozano MD at 9:35 EDT ,
--- NOTE | 2023-01-30 09:49 | US_ITS ---
STUDY: ABDOMINAL ULTRASOUND - RIGHT UPPER QUADRANT REASON FOR VISIT: Female, 57 years old cirrhosis, elastography -- RUQ TECHNIQUE: Ultrasound evaluation of the right upper quadrant was performed with real-time and static houston-scale imaging. TECHNICAL QUALITY: Adequate. COMPARISON: None. FINDINGS: Liver: The liver is enlarged and measures 20.1 cm. There is increased echogenicity consistent with fatty infiltration. The bile ducts are within normal limits. There is hepatic color flow. The direction of portal flow is hepatopetal. There is no demonstrated mass lesion. Gallbladder: The patient is status post cholecystectomy. Common Bile Duct (C.B.D.): The common bile duct measures 4.4 mm. Pancreas: Normal size of the head, body and tail of the pancreas. There is normal echogenicity of the pancreas. There is no demonstrated pancreatic mass or cyst. Right Kidney: Normal size of the right kidney. The right kidney measures 11.1 cm x 5.1 cm x 4 cm. Normal renal cortex. The right cortex measures 1.5 cm. There is no demonstrated renal mass or cyst. There is no right hydronephrosis. US/Abdomen Limited IMPRESSION: Hepatomegaly and fatty infiltration of the liver. Status post cholecystectomy. Electronically Signed: Dilshad Lozano MD at 9:33 EDT ,
== END | disposition home or self-care (01) ==
LOC: US 09:49
PROVIDERS: PCP Family Medicine; Referring Provider Nurse Practitioner Adult Health; Visit Provider Nurse Practitioner Adult Health
DX: K74.60 Unspecified cirrhosis of liver (principal)
CPT/HCPCS: 76705; 76981

== ENCOUNTER 2024-03-23 08:49 | Inpatient (IN) | payer MEDICAID, SELFPAY ==
[2024-03-23] VITALS (14 sets, daily range): BP systolic 109–184; BP diastolic 64–86; PULSE 78–96; RESP 20–24; TEMP 36.6–37.5; O2SAT 92–100; BMI 26.8; BMI 25.4
--- NOTE | 2024-03-23 09:08 | EKG12_ITS ---
Test Reason : WEAKNESS Blood Pressure : / mmHG Vent. Rate : 078 BPM Atrial Rate : 078 BPM P-R Int : 196 ms QRS Dur : 082 ms QT Int : 356 ms P-R-T Axes : 085 079 107 degrees QTc Int : 405 ms Normal sinus rhythm Septal infarct , age undetermined Abnormal ECG Confirmed by MILLER KENT, CARLOS ([id number]), editorial clerk SANDRINE PEREZ ([id number]) on 03/25/2024 6:52:22 AM Referred By: Confirmed By:CARLOS BHATT MD
[2024-03-23 09:28] LABS: Absolute Lymphocyte Count 1.04 X10^3/uL (0.83-4.51); Absolute Neutrophil Count 4.1 X10^3/uL (2.0-7.7); Basophil# 0.02 X10^3/uL; Basophil% 0.4 % (0-1); Eosinophil# 0.01 X10^3/uL; Eosinophils% 0.2 % (0-5); Hematocrit 30.9 % (37-47); Hemoglobin 10.6 g/dL (12.0-15.0); Lymphocyte # 1.04 X10^3/ul (0.83-4.51); Lymphocyte % 18.5 % (19-41); Mean Corp Hgb Conc 34.3 g/dL (32-36); Mean Corpuscular Hgb 33.9 pg (27.0-32.0); Mean Corpuscular Volume 98.7 fL (81-99); Mean Platelet Vol. 9.8 fl (6.2-12.0); Monocyte# 0.45 X10^3/uL; NRBC Flagged by Analyzer 0 % (0-5); Neutrophil # 4.07 X10^3/uL (2.7-7.7); Neutrophil % 72.4 % (47-70); Platelet Count 173 K/mm3 (150-450); RBC Distribution Width CV 13.6 % (11.6-14.6); RBC Distribution Width SD 48.3 fl (35.1-43.9); Red Blood Count 3.13 M/mm3 (4.2-5.4); White Blood Count 5.6 K/mm3 (4.4-11.0)
--- NOTE | 2024-03-23 09:41 | CT_ITS ---
INDICATION: falls EXAMINATION: CT CERVICAL SPINE - CT Spine Cervical W/O Contrast Injection TECHNIQUE: Helically acquired images were obtained of the cervical spine. 2D reformatted images were reviewed. The protocol utilizes one or more of the following dose reduction techniques: automated exposure control, adjustment of mA and/or kV according to patient size,and/or use of iterative reconstruction technique. IV Contrast dosage and agent: None. RADIATION DOSAGE (If Supplied By Facility): CTDIvol = ( 21.65 ) mGy, DLP = ( 371.71 ) mGycm COMPARISON: No relevant prior comparison study available FINDINGS: VERTEBRAE: No fracture or traumatic subluxation. No discrete lytic or blastic abnormality. Straightening of the cervical spine. Alignment of the vertebral bodies unremarkable. Normal craniocervical junction and cervicothoracic junction. DISCS and SPINAL CANAL: Anterior fusion of C6 and C7 with plates and screws. Disc implant at this level. Severe disc space narrowing of C4-C5 and C5-C6. Degenerative changes in the apophyseal joints at multiple levels worse on the left side at the level of C3-C4. Narrowing of the left neural foramina at the level of C5-C6. Otherwise no bony critical stenosis. NECK SOFT TISSUES: No prevertebral soft tissue swelling. Atherosclerotic calcifications of the carotid arteries. Motion artifacts. LUNG APICES: Clear. CT/Spine Cervical without Contras IMPRESSION: 1. No evidence of acute cervical spinal fracture or spondylolisthesis or 2. Postoperative and multilevel degenerative changes. Electronically Signed: Andrea Henderson MD at 12:09 EDT ,
--- NOTE | 2024-03-23 09:41 | CT_ITS ---
INDICATION: head injury EXAMINATION: CT BRAIN - CT Head or Brain W/O Contrast Injection TECHNIQUE: Multiple axial images were obtained of the head without intravenous contrast. The protocol utilizes one or more of the following dose reduction techniques: automated exposure control, adjustment of mA and/or kV according to patient size,and/or use of iterative reconstruction technique. IV Contrast dosage and agent: None. RADIATION DOSAGE (If Supplied By Facility): CTDIvol = ( 44.99 ) mGy, DLP = ( 762.36 ) mGycm COMPARISON: No relevant prior comparison study available FINDINGS: BRAIN PARENCHYMA: No intra- or extra-axial hemorrhage. No evidence of acute infarct. No intracranial mass or mass effect. There is preservation of the [place]ouston/white matter interface. Scattered small calcifications in the left frontal and parietal regions. Posterior fossa structures are unremarkable. CSF SPACES: Appropriate for age. No hydrocephalus. Basal cisterns are patent. CALVARIUM, SKULL BASE, PARANASAL SINUSES AND MASTOID AIR CELLS: Mucosal thickening of the left maxillary sinus. No discrete lytic or blastic abnormalities. ORBITS: Both globes, extraocular muscles, optic nerves and retrobulbar fat appear unremarkable. CT/Brain/Head without Contrast IMPRESSION: 1. No acute intracranial process. 2. 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 3. Left maxillary sinus disease. Electronically Signed: Andrea Henderson MD at 12:03 EDT ,
--- NOTE | 2024-03-23 09:46 | CT_ITS ---
STUDY: CT ABDOMEN AND PELVIS WITH CONTRAST REASON FOR EXAM: Female, 59 years old. falls RADIATION DOSAGE (If Supplied By Facility): CTDIvol = ( 15.06 ) mGy, DLP = ( 1066.43 ) mGycm TECHNIQUE: IV 100mL Isovue-[id number] was administered. Transaxial images were obtained from the dome of the diaphragm to the symphysis pubis. Multiplanar coronal and sagittal images were reformatted. The protocol utilizes one or more of the following dose reduction techniques: automated exposure control, adjustment of mA and/or kV according to patient size,and/or use of iterative reconstruction technique. COMPARISON: No relevant prior comparison study available FINDINGS: The visualized lung bases are unremarkable. The visualized portions of the heart are within normal limits. Irregular liver contour which may reflect cirrhosis. No focal lesion is definitely seen. The portal vein appears to be patent. There is non-visualization of the gallbladder, which may be secondary to either contraction or a prior cholecystectomy. The spleen is normal in size. Few well-defined nodules adjacent to the spleen could represent splenules. The pancreas is not enlarged. Minimal prominence of the pancreatic duct. Normal bilateral adrenal glands. The stomach is grossly unremarkable. Normal in caliber small bowel loops. Limited evaluation due to significant motion artifacts. The transverse and descending colon are not well distended and difficult to evaluate. No evidence of acute diverticulitis. The appendix is not definitely identified. There is diffuse atherosclerotic calcification of the abdominal aorta, without a demonstrated aneurysm. No retroperitoneal adenopathy. Moderate amount of ascites in the abdomen and pelvis. Normal right kidney. Normal left kidney. Normal urinary bladder. No pelvic mass. No discrete abdominal wall hernia. Degenerative changes and fusion of the lower lumbar spine with pedicle screws. Grade 1 anterolisthesis of L3 over L4 with severe narrowing of the disc space. CT/Abdomen/Pelvis W IV Cont ONLY IMPRESSION: 1. Irregular liver suggestive of cirrhosis. 2. Moderate amount of ascites. 3. No focal acute inflammatory process. 4. Somewhat limited examination due to motion. Electronically Signed: Andrea Henderson MD at 11:58 EDT ,
--- NOTE | 2024-03-23 09:48 | EX.ED.DYSGE1 ---
HPI History of Present Illness Chief Complaint: Weakness Narrative Narrative: 59-year-old female with history of EtOH abuse, cirrhosis, portal hypertension, presenting with weakness. Patient has been sick for about a week and a half. She and her report that she has been falling at home. She has hit her head and has bruising all over her arms and legs. She does not know why she is falling. She does not know if it is because she drinks too much or if she has fainting. She states her back hurts from falling. She is supposed to wear 2 L of oxygen all the time but she is turned up because he is more short of breath. She does not know if she has had a fever. She is not vomiting. states that she is confused sometimes. She asked him to put her pills in the ashtray at 1 point and also asked him to bring her the dog bowl. She does not know why she has been saying this. [facility] Medical History Easy bruising Post-menopausal Chronic cough Alcohol use disorder Asthma Chronic cholecystitis Wears glasses Alcohol use Depression Anxiety History of steroid therapy High cholesterol Migraine headache Back pain Arthritis Seizures Nausea Gastric reflux Smoker COPD (chronic obstructive pulmonary disease) Shortness of breath on exertion History of pain when walking History of edema Hypertension Fibromyalgia Anemia Acute left ankle fracture Home Medications ?Medication ?Instructions ?Recorded ?Last Taken ?Type alprazolam 1 mg tablet (Xanax) 1 mg PO QHS PRN anxiety 07/30/20 07/29/20 History amlodipine 10 mg tablet 10 mg PO DAILY blood pressure 07/30/20 03/22/24 History atorvastatin 80 mg tablet 80 mg PO QHS cholesterol 07/30/20 03/22/24 History budesonide-formoterol HFA 160 2 puff inhalation BID COPD 07/30/20 03/22/24 History mcg-4.5 mcg/actuation aerosol inhaler (Symbicort) cyanocobalamin (vitamin B-12) 1,000 mcg PO DAILY vitamin 07/30/20 03/22/24 History 1,000 mcg capsule ergocalciferol (vitamin D2) 1,250 50,000 unit PO MO vitamin 07/30/20 03/20/24 History mcg (50,000 unit) capsule escitalopram oxalate 20 mg tablet 20 mg PO DAILY depression/anxiety 07/30/20 Unknown History (Lexapro) ipratropium 0.5 mg-albuterol 3 mg 3 ml inhalation Q6H PRN PRN 07/30/20 01/02/23 History (2.5 mg base)/3 mL nebulization shortnes of breath soln levetiracetam 500 mg tablet 1,000 mg PO BID seizure 07/30/20 03/22/24 History (Keppra) omeprazole 40 mg capsule,delayed 40 mg PO BID GERD 07/30/20 03/22/24 History release perphenazine 2 mg tablet 2 mg PO QHS mental health 07/30/20 03/22/24 History metoprolol tartrate 25 mg tablet 25 mg PO QHS 05/21/21 Unknown History albuterol sulfate 90 mcg/actuation 2 puff inhalation Q6H PRN COPD 06/17/21 Unknown History aerosol inhaler (Proventil HFA) lisinopril 10 mg tablet 20 mg PO BID blood pressure 06/17/21 03/22/24 History tiotropium bromide 2.5 2 puff inhalation QDAY #1 ea 10/04/21 03/22/24 Rx mcg/actuation mist for inhalation (Spiriva Respimat) ondansetron 8 mg disintegrating 8 mg PO Q12H 10/27/22 Unknown History tablet carbamazepine 200 mg 400 mg PO BID 03/23/24 03/22/24 History tablet,extended release,12 hr duloxetine 30 mg capsule,delayed 30 mg PO BID 03/23/24 03/22/24 History release metoprolol succinate 25 mg 25 mg PO DAILY 03/23/24 03/22/24 History tablet,extended release 24 hr nystatin 100,000 unit/gram topical 1 applic topical TID PRN rash 03/23/24 03/22/24 History powder (Klayesta) ondansetron HCl 4 mg tablet 4 mg PO BID PRN PRN nausea/vomiting 03/23/24 Unknown History Allergy/AdvReac Type Severity Reaction Status Date / Time adhesive Allergy Rash Verified 03/23/24 08:59 cefuroxime (From Ceftin) Allergy Hives Verified 03/23/24 08:59 bupropion (From Wellbutrin) AdvReac SEIZURES Verified 03/23/24 08:59 codeine AdvReac Upset Verified 03/23/24 08:59 Stomach cyclobenzaprine (From AdvReac SEIZURES Verified 03/23/24 08:59 Flexeril) fluoxetine (From Prozac) AdvReac INCREASED Verified 03/23/24 08:59 ANXIETY gabapentin AdvReac INCREASED Verified 03/23/24 08:59 ANXIETY, CONFUSION nicotine (From Nicoderm CQ) AdvReac SEIZURES Verified 03/23/24 08:59 risperidone (From Risperdal) AdvReac SEIZURES Verified 03/23/24 08:59 Surgical History Hx of esophagogastroduodenoscopy Hx laparoscopic cholecystectomy History of esophagogastroduodenoscopy (EGD) Hx of tubal ligation Hx of bilateral cataract extraction History of ankle surgery History of back surgery History of neck surgery History of colonoscopy Social History Smoking Status: Current every day smoker tobacco type: cigarettes EXAM Physical Exam Const Vital Signs: 03/23/24 08:51 03/23/24 08:54 03/23/24 09:26 Temperature 97.9 F 97.9 F Temperature Source Oral Oral Pulse Rate 78 78 Respiratory Rate 22 H 22 H Respiratory Effort Short of Breath Labored Accessory Muscle Use Respiratory Pattern Tachypnea Blood Pressure 184/64 H 184/64 H Blood Pressure Mean 104 104 Pulse Ox 98 95 Oxygen Delivery Method Nasal Cannula Room Air Oxygen Flow Rate (L/min) 2 03/23/24 10:23 03/23/24 10:23 03/23/24 10:59 Temperature Temperature Source Pulse Rate 80 87 Respiratory Rate 24 H 23 H Respiratory Effort Respiratory Pattern Tachypnea Blood Pressure 156/67 H Blood Pressure Mean 96 Pulse Ox 97 95 Oxygen Delivery Method Nasal Cannula Oxygen Flow Rate (L/min) 3 03/23/24 11:01 03/23/24 12:14 Temperature 98.4 F 98.1 F Temperature Source Oral Oral Pulse Rate 87 91 Respiratory Rate 23 H 23 H Respiratory Effort Respiratory Pattern Blood Pressure 146/69 H 181/75 H Blood Pressure Mean 94 110 Pulse Ox 97 94 Oxygen Delivery Method Nasal Cannula Nasal Cannula Oxygen Flow Rate (L/min) 3 3 Positive unkempt General Appearance ED: unkempt HEENT Reports dry mucous membranes HEENT Narrative: Bruising noted around the left orbit and on the face. No hemotympanum. No jaw malocclusion. Mouth ED: Yes dry mucous membranes Mouth: dry mucous membranes Eyes PERRL and EOMs intact bilaterally Neck no lymphadenopathy Resp normal respiratory effort and clear to auscultation bilaterally Auscultation: wheezes expiratory wheezes Cardio regular rate and regular rhythm GI Inspection: abdominal distention Palpation: Negative for guarding Neuro oriented x3 and CN's II-XII intact bilaterally Sensorium / Orientation: alert Motor Exam: general weakness Psych mental status grossly normal Appearance: unkempt Skin Skin Narrative: Multiple bruises on the upper and lower extremities in different stages of healing. MDM MDM MDM Narrative Medical decision making narrative: 59-year-old female presenting with weakness and falls. She has got bruising on her face, extremities, torso. She is complaining of back pain and she is tender to palpation on examination. No midline spinal tenderness however. Patient able to sit up in the bed. She is wheezing on examination. Differential includes EtOH intoxication, electrolyte abnormalities, acute blood loss anemia, GI bleed, dehydration, ACS, dysrhythmia, UTI, intracranial hemorrhage, C-spine fracture, thoracic or lumbar fracture, coagulopathy,hyperammonemia. CBC will be obtained to assess white blood cell count, hemoglobin, platelets. BMP to assess renal function, electrolytes, glucose. LFTs to assess liver function. Lipase to assess for pancreatitis. INR to assess for coagulopathy, urinalysis to assess for UTI. EtOH versus for alcohol use. Morphine and Zofran were ordered for the patient's back pain. CT brain and cervical spine will be obtained to rule out any cranial hemorrhage or C-spine fracture. CT brain and cervical spine were negative. CBC shows a white blood cell count which is normal at 5.6. Hemoglobin is low at 10.6. Patient reports that she does have bloody stools but thinks it is most likely related to her hemorrhoids. Rectal exam shows multiple nonthrombosed hemorrhoids circumferentially around the rectum. There is no blood noted. Occult stool was positive. INR normal at 1.0. Creatinine normal at 0.34. Electrolytes are abnormal and her sodium is 118. Potassium 5.5. Total bilirubin 0.7, direct bilirubin less than 0.05, AST 55, ALT 16, alk phosphatase 232. Ammonia is normal 18. Lipase normal at 12. Urinalysis negative for infection. EtOH negative. Obtain CT of the abdomen pelvis with IV contrast which shows irregular liver suggestive of cirrhosis and moderate amount of ascites. No other focal acute processes found. Discussed the case with Dr. Fernandez who is amenable to keeping the patient here given that she has a GI bleed. It is also his patient. He does think he will likely do paracentesis while she is in the hospital. Discussed the patient with the hospitalist for admission. Impression: 1. Falls 2. Back contusion 3. GI bleed 4. Acute blood loss anemia 5. Hyponatremia 6. Hyperkalemia 7. Closed head injury 8. Debility 9. EtOH abuse Lab Data Labs: Laboratory Results - last 24 hr 03/23/24 03/23/24 03/23/24 09:15 10:00 11:31 WBC 5.6 RBC 3.13 L Hgb 10.6 L Hct 30.9 L MCV 98.7 MCH 33.9 H MCHC 34.3 RDW Std Deviation 48.3 H RDW Coeff of Sanju 13.6 Plt Count 173 MPV 9.8 Immature Gran % (Auto) 0.500 Neut % (Auto) 72.4 H Lymph % (Auto) 18.5 L [place] % (Auto) 8.0 Eos % (Auto) 0.2 Baso % (Auto) 0.4 Absolute Neuts (auto) 4.1 Absolute Lymphs (auto) 1.04 Nucleated RBC % 0 PT 13.3 INR 1.0 Sodium 118 L* Potassium 5.5 H Chloride 80 L Carbon Dioxide 32.0 Anion Gap 6 BUN 5 L Creatinine 0.34 L Estim Creat Clear Calc 143.24 Est GFR (MDRD) Af Amer 251 Est GFR (MDRD) Non-Af 207 BUN/Creatinine Ratio 14.7 Glucose 113 H Calcium 8.7 Total Bilirubin 0.70 Direct Bilirubin < 0.05 AST 55 H ALT 16 Alkaline Phosphatase 232 H Ammonia 18.0 Troponin I High Sens 9 Total Protein 7.8 Albumin 2.4 L Globulin 5.4 H Lipase 12 L Urine Color Yellow Urine Clarity Clear Urine pH 7.0 Ur Specific [place] 1.005 Urine Protein Negative Urine Glucose (UA) Normal Urine Ketones Negative Urine Occult Blood Negative Urine Nitrite Negative Urine Bilirubin Negative Urine Urobilinogen Normal Ur Leukocyte Esterase Negative Urine RBC 0 SEEN Urine WBC 0 SEEN Ur Squamous Epith Cells 0 SEEN Urine Bacteria 0 SEEN Urine Mucus 0 SEEN Ethyl Alcohol < 3.0 Radiography Diagnostic Testing: Clinical Impression(s) from Imaging Studies Brain CT 03/23/24 09:41 IMPRESSION: 1. No acute intracranial process. 2. 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 3. Left maxillary sinus disease. Electronically Signed: Andrea Henderson MD at 12:03 EDT , Cervical Spine CT 03/23/24 09:41 IMPRESSION: 1. No evidence of acute cervical spinal fracture or spondylolisthesis or 2. Postoperative and multilevel degenerative changes. Electronically Signed: Andrea Henderson MD at 12:09 EDT , Abdomen/Pelvis CT 03/23/24 09:46 IMPRESSION: 1. Irregular liver suggestive of cirrhosis. 2. Moderate amount of ascites. 3. No focal acute inflammatory process. 4. Somewhat limited examination due to motion. Electronically Signed: Andrea Henderson MD at 11:58 EDT , Chest X-Ray 03/23/24 10:00 IMPRESSION: Linear atelectatic changes in the right perihilar region. Electronically Signed: Andrea Henderson MD at 11:38 EDT , Discharge Plan Triage Chief Complaint: Weakness ED Provider: Gaurang Mendoza Dx/Rx/DC Orders Prescriptions: No Action albuterol sulfate [Proventil HFA] 90 mcg/actuation HFA aerosol inhaler 2 puff inhalation Q6H PRN (Reason: COPD) ondansetron 8 mg tablet,disintegrating 8 mg PO Q12H atorvastatin 80 mg tablet 80 mg PO QHS Patient Comments: TAKE 1 TABLET BY MOUTH EVERY DAY perphenazine 2 mg tablet 2 mg PO QHS Patient Comments: TAKE 1 TABLET BY MOUTH EVERY DAY ipratropium-albuterol 3 ML solution for nebulization 3 ml inhalation Q6H PRN PRN (Reason: shortnes of breath) levetiracetam [Keppra] 500 MG tablet 1,000 mg PO BID omeprazole 40 MG capsule,delayed release(DR/EC) 40 mg PO BID amlodipine 10 MG tablet 10 mg PO DAILY ergocalciferol (vitamin D2) 50,000 UNIT capsule 50,000 unit PO MO Rx Instructions: Take every monday escitalopram oxalate [Lexapro] 20 MG tablet 20 mg PO DAILY cyanocobalamin (vitamin B-12) 1,000 MCG capsule 1,000 mcg PO DAILY budesonide-formoterol [Symbicort] 1 INHALER inhaler 2 puff inhalation BID alprazolam [Xanax] 1 MG tablet 1 mg PO QHS PRN (Reason: anxiety ) lisinopril 10 mg tablet 20 mg PO BID metoprolol tartrate 25 mg Tablet 25 mg PO QHS ondansetron HCl 4 mg tablet 4 mg PO BID PRN PRN (Reason: nausea/vomiting) carbamazepine 200 mg tablet extended release 12 hr 400 mg PO BID metoprolol succinate 25 mg tablet extended release 24 hr 25 mg PO DAILY duloxetine 30 mg capsule,delayed release(DR/EC) 30 mg PO BID nystatin [Klayesta] 100,000 unit/gram powder 1 applic topical TID PRN (Reason: rash) Patient Comments: APPLIED TO LUIS M-AREA/GROIN Spiriva Respimat 2.5 mcg/actuation mist 2 puff inhalation QDAY Qty: 1 6RF Rx Instructions: administer at approximately the same time(s) each day Primary Care Provider: Geovani Mancia Referrals: Geovani Mancia MD [Primary Care Provider] - Print Language: Mongolian
--- NOTE | 2024-03-23 10:00 | RAD_ITS ---
INDICATION: cough EXAMINATION/TECHNIQUE: X-RAY - XR Chest 1 View COMPARISON: Prior study dated: 05/21/2021. FINDINGS: LINES/DEVICES: None. LUNGS: Linear stranding/atelectasis in the right perihilar region. No focal infiltrate otherwise is seen. No evidence of pleural effusions. MEDIASTINUM AND CARDIOVASCULAR STRUCTURES: Cardiac silhouette not enlarged. Central airways and mediastinal contour are unremarkable. BONES AND SOFT TISSUES: There are soft tissues and osseous structures. RAD/Chest 1 View (Portable) IMPRESSION: Linear atelectatic changes in the right perihilar region. Electronically Signed: Andrea Henderson MD at 11:38 EDT ,
[2024-03-23 10:02] LABS: AST(SGOT) 55 U/L (15-37); Alanine Aminotransfer ALT/SGPT 16 U/L (13-56); Albumin, Serum 2.4 g/dL (3.2-5.0); Alkaline Phosphatase 232 U/L (45-117); Anion Gap 6 (5-15); BUN 5 mg/dL (7-18); BUN/Creat Ratio 14.7 RATIO (10-20); Bilirubin, Direct < 0.05 mg/dL (0.00-0.30); Calcium,Total 8.7 mg/dL (8.5-10.1); Chloride 80 mmol/L (98-107); Creatinine, Serum 0.34 mg/dL (0.55-1.02); EST Glomerular Filtration Rate 207 mL/min (>60); Est Glom Filt Rate - Afr Amer 251 mL/min (>60); Estimated Creatinine Clearance 143.24 ml/min; Globulin 5.4 g/dL (2.2-4.2); Glucose 113 mg/dL (74-106); Lipase 12 U/L (13-75); Potassium 5.5 mmol/L (3.5-5.1); Protein, Total 7.8 g/dL (6.4-8.2); Sodium Level 118 mmol/L (136-145); Troponin-I HS 9 pg/mL (3.0-54.0)
[2024-03-23] MEDS: Ondansetron 4 MG/2 ML Vial IV (10:07)
[2024-03-23] MEDS: Morphine 4 MG/ML Syringe IV (10:07)
[2024-03-23] MEDS: Ipratropium/Albuterol Sulfate 3 ML AMPUL.NEB INHALATION (10:19)
[2024-03-23] MEDS: Albuterol 2.5 MG/3 ML VIAL.NEB. INHALATION ×2 (10:19→19:25)
[2024-03-23 10:31] LABS: Alcohol, Blood (Medical)-Serum < 3.0 mg/dL
[2024-03-23 10:45] LABS: Prothrombin Time (Protime)PT. 13.3 SECONDS (11.7-14.9)
[2024-03-23] MEDS: MethylPREDNISolone 125 MG/2 ML Vial IV (11:07)
[2024-03-23 11:48] LABS: Bacteria 0 SEEN /hpf (None Seen); Mucous, Urine 0 SEEN /hpf (<or=2+); Red Blood Cells-Urine 0 SEEN /hpf (0-5); Squamous Epithelial Cells - UA 0 SEEN /hpf (5-10); White Blood Cells 0 SEEN /hpf (0-5)
[2024-03-23 12:07] LABS: Color, Urine Yellow (Yellow); Glucose, Dipstick Normal (Normal); Ketone-Dipstick Negative (Negative); Leukocyte Esterase-Dipstick Negative /ul (Negative); Nitrite-Dipstick Negative (Negative); Occult Blood-Urine Negative /ul (Negative); Protein-Dipstick Negative (Negative); Specific Gravity, Urine 1.005 (1.002-1.030); Urine Bilirubin Dipstick Negative (Negative); Urine Clarity Clear (Clear); Urine Urobilinogen Normal (Normal)
--- NOTE | 2024-03-23 12:28 | PCM.HP.STD ---
HPI - General General Date of Admission: 03/23/24 Date of Service: 03/23/24 Chief Complaint: Recurrent fall, chronic alcoholic. GI bleed. Hyponatremia, sodium 118 HPI Narrative FELIX NETTLES, is a 59 F with history of chronic alcohol use came to ED for increased weakness and recurrent fall for about 10 days. Patient drinks beer about 12 tall bottles every day since teenage and also smokes a pack per day. She has been feeling very weak and had fallen 4 times in last 1 week. Yesterday she fell forward and hurt left side of forehead in the bathroom. No LOC. Patient also history of GI bleed and had coffee-ground emesis yesterday and brownish/dark red stool today. No abdominal pain but has chronic abdominal swelling and states she has ascites. No fever or chills. No chest pain pressure but in the morning today she increased shortness of breath. Chronically she wears 2 L of oxygen at home. She has bruises all over her extremities and he states he has back pain. As per , she is also confused and talking irrelevant and incoherent unrelated to the context. Her states she is talking nonsense. In ED, her sodium was found 118, potassium 5.5. Twelve-lead EKG normal sinus rhythm 78 bpm. QTc 405 ms. [facility] Medical History Easy bruising Post-menopausal Chronic cough Alcohol use disorder Asthma Chronic cholecystitis Wears glasses Alcohol use Depression Anxiety History of steroid therapy High cholesterol Migraine headache Back pain Arthritis Seizures Nausea Gastric reflux Smoker COPD (chronic obstructive pulmonary disease) Shortness of breath on exertion History of pain when walking History of edema Hypertension Fibromyalgia Anemia Acute left ankle fracture Home Medications ?Medication ?Instructions ?Recorded ?Last Taken ?Type alprazolam 1 mg tablet (Xanax) 1 mg PO QHS PRN anxiety 07/30/20 07/29/20 History amlodipine 10 mg tablet 10 mg PO DAILY blood pressure 07/30/20 03/22/24 History atorvastatin 80 mg tablet 80 mg PO QHS cholesterol 07/30/20 03/22/24 History budesonide-formoterol HFA 160 2 puff inhalation BID COPD 07/30/20 03/22/24 History mcg-4.5 mcg/actuation aerosol inhaler (Symbicort) cyanocobalamin (vitamin B-12) 1,000 mcg PO DAILY vitamin 07/30/20 03/22/24 History 1,000 mcg capsule ergocalciferol (vitamin D2) 1,250 50,000 unit PO MO vitamin 07/30/20 03/20/24 History mcg (50,000 unit) capsule escitalopram oxalate 20 mg tablet 20 mg PO DAILY depression/anxiety 07/30/20 Unknown History (Lexapro) ipratropium 0.5 mg-albuterol 3 mg 3 ml inhalation Q6H PRN PRN 07/30/20 01/02/23 History (2.5 mg base)/3 mL nebulization shortnes of breath soln levetiracetam 500 mg tablet 1,000 mg PO BID seizure 07/30/20 03/22/24 History (Keppra) omeprazole 40 mg capsule,delayed 40 mg PO BID GERD 07/30/20 03/22/24 History release perphenazine 2 mg tablet 2 mg PO QHS mental health 07/30/20 03/22/24 History metoprolol tartrate 25 mg tablet 25 mg PO QHS 05/21/21 Unknown History albuterol sulfate 90 mcg/actuation 2 puff inhalation Q6H PRN COPD 06/17/21 Unknown History aerosol inhaler (Proventil HFA) lisinopril 10 mg tablet 20 mg PO BID blood pressure 06/17/21 03/22/24 History tiotropium bromide 2.5 2 puff inhalation QDAY #1 ea 10/04/21 03/22/24 Rx mcg/actuation mist for inhalation (Spiriva Respimat) ondansetron 8 mg disintegrating 8 mg PO Q12H 10/27/22 Unknown History tablet carbamazepine 200 mg 400 mg PO BID 03/23/24 03/22/24 History tablet,extended release,12 hr duloxetine 30 mg capsule,delayed 30 mg PO BID 03/23/24 03/22/24 History release metoprolol succinate 25 mg 25 mg PO DAILY 03/23/24 03/22/24 History tablet,extended release 24 hr nystatin 100,000 unit/gram topical 1 applic topical TID PRN rash 03/23/24 03/22/24 History powder (Klayesta) ondansetron HCl 4 mg tablet 4 mg PO BID PRN PRN nausea/vomiting 03/23/24 Unknown History Allergy/AdvReac Type Severity Reaction Status Date / Time adhesive Allergy Rash Verified 03/23/24 08:59 cefuroxime (From Ceftin) Allergy Hives Verified 03/23/24 08:59 bupropion (From Wellbutrin) AdvReac SEIZURES Verified 03/23/24 08:59 codeine AdvReac Upset Verified 03/23/24 08:59 Stomach cyclobenzaprine (From AdvReac SEIZURES Verified 03/23/24 08:59 Flexeril) fluoxetine (From Prozac) AdvReac INCREASED Verified 03/23/24 08:59 ANXIETY gabapentin AdvReac INCREASED Verified 03/23/24 08:59 ANXIETY, CONFUSION nicotine (From Nicoderm CQ) AdvReac SEIZURES Verified 03/23/24 08:59 risperidone (From Risperdal) AdvReac SEIZURES Verified 03/23/24 08:59 Surgical History Hx of esophagogastroduodenoscopy Hx laparoscopic cholecystectomy History of esophagogastroduodenoscopy (EGD) Hx of tubal ligation Hx of bilateral cataract extraction History of ankle surgery History of back surgery History of neck surgery History of colonoscopy Social History Smoking Status: Current every day smoker tobacco type: cigarettes ROS ROS Narrative Constitutional: Reports fatigue and weakness. No fever. HEENT: Reports systems reviewed and no addt'l complaints, except as documented Respiratory/Chest: No cough respiratory wheezing but was short of breath in the morning. CVS: No chest pain. Gastrointestinal: Denies coffee ground emesis, hematemesis or vomiting Genitourinary: Denies burning urination or new urinary tract symptoms Musculoskeletal: Denies acute joint pain or limited range of motion. No acute injury Neurologic: Denies seizure-like symptoms. Chronic tremors Psychiatric: Confusion, chronic alcohol use. Denies alcohol withdrawal symptoms. skin: No ulcer. No rash Endocrinology: Reports systems reviewed and no addt'l complaints, except as documented Hematologic/Lymphatic: Reports systems reviewed and no addt'l complaints, except as documented Rest 14 ROS are negative except as mentioned in HPI Vital Signs Vital Signs Vital Signs: 03/23/24 08:51 03/23/24 08:54 03/23/24 09:26 Temperature 97.9 F 97.9 F Temperature Source Oral Oral Pulse Rate 78 78 Respiratory Rate 22 H 22 H Respiratory Effort Short of Breath Labored Accessory Muscle Use Respiratory Pattern Tachypnea Blood Pressure 184/64 H 184/64 H Blood Pressure Mean 104 104 Pulse Ox 98 95 Oxygen Delivery Method Nasal Cannula Room Air Oxygen Flow Rate (L/min) 2 03/23/24 10:23 03/23/24 10:23 03/23/24 10:59 Temperature Temperature Source Pulse Rate 80 87 Respiratory Rate 24 H 23 H Respiratory Effort Respiratory Pattern Tachypnea Blood Pressure 156/67 H Blood Pressure Mean 96 Pulse Ox 97 95 Oxygen Delivery Method Nasal Cannula Oxygen Flow Rate (L/min) 3 03/23/24 11:01 03/23/24 12:14 Temperature 98.4 F 98.1 F Temperature Source Oral Oral Pulse Rate 87 91 Respiratory Rate 23 H 23 H Respiratory Effort Respiratory Pattern Blood Pressure 146/69 H 181/75 H Blood Pressure Mean 94 110 Pulse Ox 97 94 Oxygen Delivery Method Nasal Cannula Nasal Cannula Oxygen Flow Rate (L/min) 3 3 Weight Weight: 137 lb 5.568 oz Body Mass Index (BMI) 26.8 Physical Exam Narrative General: Alert, Oriented x3, Cooperative. HEENT: Atraumatic, PERRLA, EOMI, Normocephalic Oral: Oral mucosa dry. No Gingival or Mucosal Lesions/ Ulcerations Neck: Supple, No JVD, Negative Carotid Bruits Chest wall/Lungs: Air entry diminished in bilateral lung bases. Bilateral expiratory rhonchi Cardiovascular: Regular rate, Regular Rhythm, Normal S1, Normal S2, No M/G/R Abdomen: Bowel Sounds Present, Soft, nondistended, shifting dullness present. No palpable mass. : No dysuria. No renal angle tenderness. No suprapubic tenderness. Extremities: No edema, Capillary Refill Less than 3 Seconds Skin: Bruises all over upper extremities, lower extremity. Bruise over left forehead Musculoskeletal: No Tenderness to Palpation of Joints or Extremities. Paraspinal muscle tenderness. Neurological: Cranial nerves II-XII grossly intact, DTR 2+/4. Muscle strength 4/5 at hips and knee joints. Tremors, chronic and upper extremities. Psych/Mental Status: Normal Affect, Appropriate. Results Lab / Micro Data 03/23/24 09:15 03/23/24 09:15 Labs: Laboratory Results - last 24 hr 03/23/24 09:15: WBC 5.6, RBC 3.13 L, Hgb 10.6 L, Hct 30.9 L, MCV 98.7, MCH 33.9 H, MCHC 34.3, RDW Std Deviation 48.3 H, RDW Coeff of Sanju 13.6, Plt Count 173, MPV 9.8, Immature Gran % (Auto) 0.500, Neut % (Auto) 72.4 H, Lymph % (Auto) 18.5 L, [place] % (Auto) 8.0, Eos % (Auto) 0.2, Baso % (Auto) 0.4, Absolute Neuts (auto) 4.1, Absolute Lymphs (auto) 1.04, Nucleated RBC % 0, Sodium 118 L*, Potassium 5.5 H, Chloride 80 L, Carbon Dioxide 32.0, Anion Gap 6, BUN 5 L, Creatinine 0.34 L, Estim Creat Clear Calc 143.24, Est GFR (MDRD) Af Amer 251, Est GFR (MDRD) Non-Af 207, BUN/Creatinine Ratio 14.7, Glucose 113 H, Calcium 8.7, Total Bilirubin 0.70, Direct Bilirubin < 0.05, AST 55 H, ALT 16, Alkaline Phosphatase 232 H, Troponin I High Sens 9, Total Protein 7.8, Albumin 2.4 L, Globulin 5.4 H, Lipase 12 L 03/23/24 10:00: PT 13.3, INR 1.0, Ammonia 18.0, Ethyl Alcohol < 3.0 03/23/24 11:31: Urine Color Yellow, Urine Clarity Clear, Urine pH 7.0, Ur Specific [place] 1.005, Urine Protein Negative, Urine Glucose (UA) Normal, Urine Ketones Negative, Urine Occult Blood Negative, Urine Nitrite Negative, Urine Bilirubin Negative, Urine Urobilinogen Normal, Ur Leukocyte Esterase Negative Micro: Microbiology 03/23/24 11:25 Stool Stool Occult Blood (NAHOMI) - Final Occult Blood Positive Imaging Radiology Impression Brain CT 03/23/24 09:41 IMPRESSION: 1. No acute intracranial process. 2. 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 3. Left maxillary sinus disease. Electronically Signed: Andrea Henderson MD at 12:03 EDT , Cervical Spine CT 03/23/24 09:41 IMPRESSION: 1. No evidence of acute cervical spinal fracture or spondylolisthesis or 2. Postoperative and multilevel degenerative changes. Electronically Signed: Andrea Henderson MD at 12:09 EDT , Abdomen/Pelvis CT 03/23/24 09:46 IMPRESSION: 1. Irregular liver suggestive of cirrhosis. 2. Moderate amount of ascites. 3. No focal acute inflammatory process. 4. Somewhat limited examination due to motion. Electronically Signed: Andrea Henderson MD at 11:58 EDT Reading Location ID and State: [facility] / MD Tel , Service support , Chest X-Ray 03/23/24 10:00 IMPRESSION: Linear atelectatic changes in the right perihilar region. Electronically Signed: Andrea Henderson MD at 11:38 EDT Reading Location ID and State: [facility] / MD Tel , Service support , Assessment & Plan Assessment/Plan (1) Hyponatremia: (2) Upper GI bleed: PLAN: Plan This is a 59-year-old female came to ED for generalized weakness, recurrent fall for about 10 days along with upper GI bleed and severe hyponatremia 1. Acute severe on chronic hyponatremia, hypotonic hypovolemic probably due to chronic beer potomania along with low solute intake: Patient is being admitted in PCU. [employer] is consulted. Since it is chronic hyponatremia over the past 10 days, increased sodium gradually and no indication for hypertonic saline. IV fluid normal saline 75 mill per hour check sodium every 4 hours. Twelve-lead EKG shows normal sinus rhythm at 78 bpm, QTc 405 ms. Serum osmolality, urine electrolytes, urine osmolarity and urine sodium ordered 2. Upper GI bleed : IV pantoprazole 40 mg every 12 hourly. H&H 10.6/31%, platelet count 173,000. GI is consulted. Stool for occult blood positive. Patient is hypertensive. Last EGD in December 2022 shows grade 1 esophageal varices, PHG, IGV 1 varices located in fundus.Colonoscopy in December 2022 showed nonbleeding external and internal hemorrhoids, diverticulosis in RS, Sigmoid and D colon. 3. Chronic alcoholic cirrhosis decompensated with with chronic ascites and thrombocytopenia: AST and ALT have been elevated in the past since May 2021. AST 55, ALT 16 more than 321 ratio. Alkaline phosphatase is also elevated. INR normal. Hypoalbuminemia. Total bilirubin normal. Monitor liver chemistry. CT abdomen and pelvis with IV contrast individually reviewed shows irregular liver contour, no focal lesion. Portal vein is patent, nonvisualization of gallbladder. Spleen normal in size. Pancreas not enlarged. Moderate amount of ascites in the abdomen and pelvis. 4. Acute encephalopathy probably due to alcohol and hyponatremia/toxic and metabolic encephalopathy: Serum alcohol level is normal but patient drinks heavily. Serum ammonia normal. Lactulose is ordered. 5. Generalized weakness, unable to do ADL with debility and recurrent fall and bruises: PT and OT ordered. 6. Chronic severe malnutrition: BMI 25.5 kg/m? patient has generalized low muscle mass including paravertebral and craniofacial regions. Loss of subcutaneous fat. Easy bruisability. 7. Hypertension: Blood pressure 1 systolic 180s. Clonidine 0.2 mg twice daily. 8. Dyslipidemia: On atorvastatin 80 mg daily. 9. COPD: Patient never had PFT but carries a diagnosis of COPD from PCP. She is on Symbicort and albuterol inhaler at home. On home O2 2 L/min. Symbicort continued. DuoNeb as needed. 10. Chronic seizure disorder, exact type, severity and duration unclear: Continue carbamazepine and Keppra. 11.. Anxiety/depression, bipolar disorder and chronic tremor: Patient is on perphenazine. Patient states she has chronic tremor from perphenazine VTE prophylaxis: Bilateral SCDs. Pharmacological prophylaxis contraindicated because of GI bleed, chronic anemia Living will/advanced directive/end of life care: Patient does not have living will or advanced directive. She does not report any major power of managing attorney for health. is next to kin. After discussion of benefits/risks procedures involved with full code, DNR CC arrest and DNR CC, the patient opted for full code. Patient doesn't want artificial life support including intubation, tube feed, ventilator and/chest compression, and D/C Shock but want central venous catheter, vasopressor if needed Total time spent in [id number] encounter in discussion of advanced directive 17 minutes. Microbiology Past 72 Hours 03/23/24 11:25 Stool Stool Occult Blood (NAHOMI) - Final Occult Blood Positive Laboratory Results 03/23/24 09:15: WBC 5.6, RBC 3.13 L, Hgb 10.6 L, Hct 30.9 L, MCV 98.7, MCH 33.9 H, MCHC 34.3, RDW Std Deviation 48.3 H, RDW Coeff of Sanju 13.6, Plt Count 173, MPV 9.8, Immature Gran % (Auto) 0.500, Neut % (Auto) 72.4 H, Lymph % (Auto) 18.5 L, [place] % (Auto) 8.0, Eos % (Auto) 0.2, Baso % (Auto) 0.4, Absolute Neuts (auto) 4.1, Absolute Lymphs (auto) 1.04, Nucleated RBC % 0, Sodium 118 L*, Potassium 5.5 H, Chloride 80 L, Carbon Dioxide 32.0, Anion Gap 6, BUN 5 L, Creatinine 0.34 L, Estim Creat Clear Calc 143.24, Est GFR (MDRD) Af Amer 251, Est GFR (MDRD) Non-Af 207, BUN/Creatinine Ratio 14.7, Glucose 113 H, Calcium 8.7, Total Bilirubin 0.70, Direct Bilirubin < 0.05, AST 55 H, ALT 16, Alkaline Phosphatase 232 H, Troponin I High Sens 9, Total Protein 7.8, Albumin 2.4 L, Globulin 5.4 H, Lipase 12 L 03/23/24 10:00: PT 13.3, INR 1.0, Ammonia 18.0, Ethyl Alcohol < 3.0 03/23/24 11:31: Urine Color Yellow, Urine Clarity Clear, Urine pH 7.0, Ur Specific [place] 1.005, Urine Protein Negative, Urine Glucose (UA) Normal, Urine Ketones Negative, Urine Occult Blood Negative, Urine Nitrite Negative, Urine Bilirubin Negative, Urine Urobilinogen Normal, Ur Leukocyte Esterase Negative, Urine RBC Pending, Urine WBC Pending, Ur Squamous Epith Cells Pending, Urine Bacteria Pending, Urine Mucus Pending
[2024-03-23 13:57] LABS: Osmolality, Serum 264 mOsm/KG (280-301)
[2024-03-23 14:03] LABS: CPK Total, Creatine Kinase 88 U/L (26-192); Magnesium 1.8 mg/dL (1.6-2.6); Phosphorus 3.7 mg/dL (2.5-4.9)
[2024-03-23] MEDS: 0.9% Normal Saline (1000mL) 1,000 ML 75 ML IV (14:17)
[2024-03-23] MEDS: amLODIPine 10 MG Tablet PO (14:17)
[2024-03-23] MEDS: cloNIDine HCl 0.2 MG Tablet PO ×2 (14:17→20:56)
[2024-03-23] MEDS: Metoprolol(XL)Succ 25 MG Tablet PO (14:35)
[2024-03-23] MEDS: Pantoprazole Sodium 40 MG in 0.9% Normal Saline (100mL MB+) 100 ML 330 MG IV ×2 (14:39→21:00)
[2024-03-23 16:16] LABS: Hematocrit 27.9 % (37-47); Hemoglobin 9.5 g/dL (12.0-15.0)
[2024-03-23 16:29] LABS: Anion Gap 8 (5-15); BUN 5 mg/dL (7-18); BUN/Creat Ratio 21.3 RATIO (10-20); Calcium,Total 8.6 mg/dL (8.5-10.1); Chloride 83 mmol/L (98-107); Creatinine, Serum 0.24 mg/dL (0.55-1.02); EST Glomerular Filtration Rate 319 mL/min (>60); Est Glom Filt Rate - Afr Amer 386 mL/min (>60); Estimated Creatinine Clearance 198.11 ml/min; Glucose 148 mg/dL (74-106); Potassium 3.7 mmol/L (3.5-5.1); Sodium Level 124 mmol/L (136-145)
--- NOTE | 2024-03-23 16:32 | CON.PCM.RE_ITS ---
Assessment & Plan Assessment/Plan (1) Hyponatremia: PLAN: Euvolemic hyponatremia, most likely due to beer potomania. Further studies are needed such as urine osmolality and urine sodium. Based on the low urine specific gravity, I suspect the urine osmolality in the urine sodium going to be quite low as well. She corrected 6 mg/dL within 9 hours, that is a little bit too fast. I suspect that due to IV saline and lack of solute free fluid intake. PLAN: Plan Discontinue normal saline. Start D5W at low rate. Encourage oral protein intake. Continue monitoring sodium every 4 hours. HPI Consult Data Date of Consult: 03/23/24 HPI Narrative Reason for Consultation: Hyponatremia HPI Narrative: FELIX NETTLES, is a 59 F who presents to emergency room with history of frequent falls. Apparently patient has been drinking large amount of beer on a daily basis since age of 14. Lately she has stopped eating as well, and when she came to the emergency room with above complaints, she was found to have sodium level of 118. No seizures. Review of her records revealed that she has got longstanding hyponatremia usually in the range of 1 29-1 30. Urinalysis that was done on admission showed low urine specific gravity of 1005. She has no history of thyroid disease, kidney disease, liver disease or heart disease. She has got no edema, she is euvolemic on exam. [facility] Medical History Easy bruising Post-menopausal Chronic cough Alcohol use disorder Asthma Chronic cholecystitis Wears glasses Alcohol use Depression Anxiety History of steroid therapy High cholesterol Migraine headache Back pain Arthritis Seizures Nausea Gastric reflux Smoker COPD (chronic obstructive pulmonary disease) Shortness of breath on exertion History of pain when walking History of edema Hypertension Fibromyalgia Anemia Acute left ankle fracture Home Medications ?Medication ?Instructions ?Recorded ?Last Taken ?Type alprazolam 1 mg tablet (Xanax) 1 mg PO QHS PRN anxiety 07/30/20 07/29/20 History amlodipine 10 mg tablet 10 mg PO DAILY blood pressure 07/30/20 03/22/24 History atorvastatin 80 mg tablet 80 mg PO QHS cholesterol 07/30/20 03/22/24 History budesonide-formoterol HFA 160 2 puff inhalation BID COPD 07/30/20 03/22/24 History mcg-4.5 mcg/actuation aerosol inhaler (Symbicort) cyanocobalamin (vitamin B-12) 1,000 mcg PO DAILY vitamin 07/30/20 03/22/24 History 1,000 mcg capsule ergocalciferol (vitamin D2) 1,250 50,000 unit PO MO vitamin 07/30/20 03/20/24 History mcg (50,000 unit) capsule escitalopram oxalate 20 mg tablet 20 mg PO DAILY depression/anxiety 07/30/20 Unknown History (Lexapro) ipratropium 0.5 mg-albuterol 3 mg 3 ml inhalation Q6H PRN PRN 07/30/20 01/02/23 History (2.5 mg base)/3 mL nebulization shortnes of breath soln levetiracetam 500 mg tablet 1,000 mg PO BID seizure 07/30/20 03/22/24 History (Keppra) omeprazole 40 mg capsule,delayed 40 mg PO BID GERD 07/30/20 03/22/24 History release perphenazine 2 mg tablet 2 mg PO QHS mental health 07/30/20 03/22/24 History metoprolol tartrate 25 mg tablet 25 mg PO QHS 05/21/21 Unknown History albuterol sulfate 90 mcg/actuation 2 puff inhalation Q6H PRN COPD 06/17/21 Unknown History aerosol inhaler (Proventil HFA) lisinopril 10 mg tablet 20 mg PO BID blood pressure 06/17/21 03/22/24 History tiotropium bromide 2.5 2 puff inhalation QDAY #1 ea 10/04/21 03/22/24 Rx mcg/actuation mist for inhalation (Spiriva Respimat) ondansetron 8 mg disintegrating 8 mg PO Q12H 10/27/22 Unknown History tablet carbamazepine 200 mg 400 mg PO BID 03/23/24 03/22/24 History tablet,extended release,12 hr duloxetine 30 mg capsule,delayed 30 mg PO BID 03/23/24 03/22/24 History release metoprolol succinate 25 mg 25 mg PO DAILY 03/23/24 03/22/24 History tablet,extended release 24 hr nystatin 100,000 unit/gram topical 1 applic topical TID PRN rash 03/23/24 03/22/24 History powder (Klayesta) ondansetron HCl 4 mg tablet 4 mg PO BID PRN PRN nausea/vomiting 03/23/24 Unknown History Allergy/AdvReac Type Severity Reaction Status Date / Time adhesive Allergy Rash Verified 03/23/24 08:59 cefuroxime (From Ceftin) Allergy Hives Verified 03/23/24 08:59 bupropion (From Wellbutrin) AdvReac SEIZURES Verified 03/23/24 08:59 codeine AdvReac Upset Verified 03/23/24 08:59 Stomach cyclobenzaprine (From AdvReac SEIZURES Verified 03/23/24 08:59 Flexeril) fluoxetine (From Prozac) AdvReac INCREASED Verified 03/23/24 08:59 ANXIETY gabapentin AdvReac INCREASED Verified 03/23/24 08:59 ANXIETY, CONFUSION nicotine (From Nicoderm CQ) AdvReac SEIZURES Verified 03/23/24 08:59 risperidone (From Risperdal) AdvReac SEIZURES Verified 03/23/24 08:59 Surgical History Hx of esophagogastroduodenoscopy Hx laparoscopic cholecystectomy History of esophagogastroduodenoscopy (EGD) Hx of tubal ligation Hx of bilateral cataract extraction History of ankle surgery History of back surgery History of neck surgery History of colonoscopy Social History Smoking Status: Current every day smoker tobacco type: cigarettes ROS Constitutional Constitutional: Reports weakness and weight loss Eyes Eyes: Denies blindness, blurry vision, change in vision, discongugate gaze, double vision, dry eyes or loss of vision ENT HEENT: Reports dry mouth Cardiovascular Cardiovascular: Denies chest pain, claudication, diaphoresis, dyspnea on exertion, edema, irregular heart rhythm, leg edema, orthopnea, palpitations or syncope Respiratory/Chest Respiratory/Chest: Reports dyspnea on exertion, portable oxygen @ home and wheezing Gastrointestinal Gastrointestinal: Reports anorexia and weight changes Genitourinary Genitourinary: Denies change in urinary stream, difficulty urinating, dribbling, dysuria, flank pain, hematuria, nocturia, oliguria, post void dribbling, urinary frequency, urinary hesitancy, urinary incontinence or urinary urgency Musculoskeletal Musculoskeletal: Denies abnormal gait, arthralgias, joint stiffness, joint swelling, muscle cramps or myalgias Integumentary Integumentary: Reports dry skin Neurologic Neurologic: Reports weakness Psychiatric Psychiatric: Reports depression Physical Exam Const oriented x3 and no apparent distress General Appearance: frail Orientation / Consciousness: oriented to person, oriented to place and oriented to time HEENT normocephalic Head and Scalp: atraumatic Neck no lymphadenopathy Resp Auscultation: wheezes expiratory wheezes and throughout Cardio regular rate and no rub Peripheral Pulses: pulses 2+ throughout GI non-tender and non-distended Auscultation: normoactive bowel sounds Skin General Skin Exam: ecchymosis Neuro CN's II-XII intact bilaterally Motor Exam: tremor Type: Positive for resting Psych cooperative Lab / Micro Data Attestation: I reviewed the patient's lab results. 03/23/24 16:09 03/23/24 16:09 Labs: Laboratory Results - last 24 hr 03/23/24 09:15: WBC 5.6, RBC 3.13 L, Hgb 10.6 L, Hct 30.9 L, MCV 98.7, MCH 33.9 H, MCHC 34.3, RDW Std Deviation 48.3 H, RDW Coeff of Sanju 13.6, Plt Count 173, MPV 9.8, Immature Gran % (Auto) 0.500, Neut % (Auto) 72.4 H, Lymph % (Auto) 18.5 L, [place] % (Auto) 8.0, Eos % (Auto) 0.2, Baso % (Auto) 0.4, Absolute Neuts (auto) 4.1, Absolute Lymphs (auto) 1.04, Nucleated RBC % 0, Sodium 118 L*, Potassium 5.5 H, Chloride 80 L, Carbon Dioxide 32.0, Anion Gap 6, BUN 5 L, Creatinine 0.34 L, Estim Creat Clear Calc 143.24, Est GFR (MDRD) Af Amer 251, Est GFR (MDRD) Non-Af 207, BUN/Creatinine Ratio 14.7, Glucose 113 H, Calcium 8.7, Total Bilirubin 0.70, Direct Bilirubin < 0.05, AST 55 H, ALT 16, Alkaline Phosphatase 232 H, Troponin I High Sens 9, Total Protein 7.8, Albumin 2.4 L, Globulin 5.4 H, Lipase 12 L 03/23/24 10:00: PT 13.3, INR 1.0, Serum Osmolality 264 L, Ammonia 18.0, Ethyl Alcohol < 3.0 03/23/24 11:31: Urine Color Yellow, Urine Clarity Clear, Urine pH 7.0, Ur Specific [place] 1.005, Urine Protein Negative, Urine Glucose (UA) Normal, Urine Ketones Negative, Urine Occult Blood Negative, Urine Nitrite Negative, Urine Bilirubin Negative, Urine Urobilinogen Normal, Ur Leukocyte Esterase Negative, Urine RBC 0 SEEN, Urine WBC 0 SEEN, Ur Squamous Epith Cells 0 SEEN, Urine Bacteria 0 SEEN, Urine Mucus 0 SEEN 03/23/24 13:31: Phosphorus 3.7, Magnesium 1.8, Total Creatine Kinase 88 03/23/24 16:09: Hgb 9.5 L, Hct 27.9 L, Sodium 124 L, Potassium 3.7, Chloride 83 L, Carbon Dioxide 33.0 H, Anion Gap 8, BUN 5 L, Creatinine 0.24 L, Estim Creat Clear Calc 198.11, Est GFR (MDRD) Af Amer 386, Est GFR (MDRD) Non-Af 319, B UN/Creatinine Ratio 21.3 H, Glucose 148 H, Calcium 8.6 Micro: Microbiology 03/23/24 11:25 Stool Stool Occult Blood (NAHOMI) - Final Occult Blood Positive Imaging Radiology Impression Brain CT 03/23/24 09:41 IMPRESSION: 1. No acute intracranial process. 2. 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 3. Left maxillary sinus disease. Electronically Signed: Andrea Henderson MD at 12:03 EDT Reading Location ID and State: [facility] / [place] Tel , Service support , Cervical Spine CT 03/23/24 09:41 IMPRESSION: 1. No evidence of acute cervical spinal fracture or spondylolisthesis or 2. Postoperative and multilevel degenerative changes. Electronically Signed: Andrea Henderson MD at 12:09 EDT , Abdomen/Pelvis CT 03/23/24 09:46 IMPRESSION: 1. Irregular liver suggestive of cirrhosis. 2. Moderate amount of ascites. 3. No focal acute inflammatory process. 4. Somewhat limited examination due to motion. Electronically Signed: Andrea Henderson MD at 11:58 EDT , Chest X-Ray 03/23/24 10:00 IMPRESSION: Linear atelectatic changes in the right perihilar region. Electronically Signed: Andrea Henderson MD at 11:38 EDT ,
[2024-03-23] MEDS: Dextrose 5%-Water (1000mL Bag) 1,000 ML 75 ML IV (17:19)
[2024-03-23] MEDS: Phenobarbital 32.4 MG Tablet 64.8 MG PO ×2 (17:21→20:58)
[2024-03-23] MEDS: Ipratropium 0.5 MG/2.5 ML SOLUTION INHALATION (19:25)
[2024-03-23] MEDS: Budesonide Respules 0.5 MG/2 ML AMPUL.NEB. INHALATION (19:25)
[2024-03-23 19:34] LABS: Amphetamine Urine NEGATIVE (<1000 ng/mL); Barbiturate Urine NEGATIVE (< 200 ng/mL); Benzodiazepine Urine NEGATIVE (< 200 ng/mL); Cocaine Urine NEGATIVE (< 300 ng/mL); Ecstacy Urine NEGATIVE (< 500 ng/mL); Methadone Urine NEGATIVE (< 300 ng/mL); Opiates Urine NEGATIVE (< 300 ng/mL); PCP Urine NEGATIVE (< 25 ng/mL); THC Urine NEGATIVE (< 50 ng/mL); Vista UDS pH Range 6
[2024-03-23 19:37] LABS: Protein, Urine (Random) 14.6 mg/dL (<11.9); Protein:Creat Ratio 555 mg/g CRE (0-200); Urine Chloride 19 mmol/L (Not Establ.); Urine Sodium 24 mmol/L (Not Establ.)
[2024-03-23 20:23] LABS: Sodium Level 122 mmol/L (136-145)
[2024-03-23 20:25] LABS: Osmolality, Urine 261 mOsm/KG
[2024-03-23] MEDS: carBAMazepine 200 MG CPMP.12HR 400 MG PO (20:57)
[2024-03-23] MEDS: levETIRAcetam 1,000 MG Tablet 1000 MG PO (20:57)
[2024-03-23] MEDS: Atorvastatin Calcium 80 MG Tablet PO (20:58)
[2024-03-23] MEDS: Acetaminophen 325 MG Tablet 650 MG PO (20:58)
[2024-03-23] MEDS: Lactulose 20 GM/30 ML UDC 10 GM PO (20:59)
[2024-03-23] MEDS: DULoxetine Hcl 30 MG Capsule PO (21:00)
[2024-03-23] MEDS: Lisinopril 20 MG Tablet PO (21:01)
[2024-03-23 22:18] LABS: Hematocrit 24.5 % (37-47); Hemoglobin 8.4 g/dL (12.0-15.0)
[2024-03-24] VITALS (14 sets, daily range): BP systolic 123–152; BP diastolic 57–76; PULSE 65–89; RESP 16–22; TEMP 36.2–36.7; O2SAT 96–100
[2024-03-24 00:23] LABS: Sodium Level 121 mmol/L (136-145)
[2024-03-24] MEDS: Phenobarbital 32.4 MG Tablet 64.8 MG PO ×6 (03:11→21:05)
[2024-03-24 04:12] LABS: Absolute Lymphocyte Count 1.66 X10^3/uL (0.83-4.51); Absolute Neutrophil Count 2.7 X10^3/uL (2.0-7.7); Basophil# 0.01 X10^3/uL; Basophil% 0.2 % (0-1); Eosinophil# 0.02 X10^3/uL; Eosinophils% 0.4 % (0-5); Hematocrit 25.1 % (37-47); Hemoglobin 8.4 g/dL (12.0-15.0); Lymphocyte # 1.66 X10^3/ul (0.83-4.51); Lymphocyte % 33.3 % (19-41); Mean Corp Hgb Conc 33.5 g/dL (32-36); Mean Corpuscular Hgb 33.3 pg (27.0-32.0); Mean Corpuscular Volume 99.6 fL (81-99); Mean Platelet Vol. 9.1 fl (6.2-12.0); NRBC Flagged by Analyzer 0 % (0-5); Neutrophil # 2.69 X10^3/uL (2.7-7.7); Neutrophil % 53.9 % (47-70); POSITIVE MORPHOLOGY YES; Platelet Count 154 K/mm3 (150-450); RBC Distribution Width CV 13.4 % (11.6-14.6); RBC Distribution Width SD 48.7 fl (35.1-43.9); Red Blood Count 2.52 M/mm3 (4.2-5.4)
[2024-03-24] MEDS: Acetaminophen 325 MG Tablet 650 MG PO ×3 (04:18→19:17)
[2024-03-24 04:40] LABS: Differential Indicated SCAN CRITERIA MET
[2024-03-24 05:06] LABS: ALB/GLOB Ratio 0.5 RATIO (0.9-2.4); AST(SGOT) 24 U/L (15-37); Alanine Aminotransfer ALT/SGPT 14 U/L (13-56); Albumin, Serum 2.3 g/dL (3.2-5.0); Alkaline Phosphatase 194 U/L (45-117); Anion Gap 9 (5-15); BUN 3 mg/dL (7-18); Calcium,Total 8.6 mg/dL (8.5-10.1); Chloride 81 mmol/L (98-107); Creatinine, Serum 0.37 mg/dL (0.55-1.02); EST Glomerular Filtration Rate 186 mL/min (>60); Est Glom Filt Rate - Afr Amer 226 mL/min (>60); Globulin 4.8 g/dL (2.2-4.2); Glucose 112 mg/dL (74-106); Potassium 3.3 mmol/L (3.5-5.1); Protein, Total 7.1 g/dL (6.4-8.2); Sodium Level 122 mmol/L (136-145)
[2024-03-24 05:33] LABS: Anisocytosis 2+
[2024-03-24 05:34] LABS: Macrocytosis 1+
[2024-03-24] MEDS: Dextrose 5%-Water (1000mL Bag) 1,000 ML 75 ML IV (06:31)
[2024-03-24] MEDS: Budesonide Respules 0.5 MG/2 ML AMPUL.NEB. INHALATION ×2 (08:03→19:30)
[2024-03-24] MEDS: Ipratropium/Albuterol Sulfate 3 ML AMPUL.NEB INHALATION ×2 (08:03→19:30)
[2024-03-24] MEDS: Thiamine Hydrochloride 100 MG Tablet PO (08:59)
[2024-03-24] MEDS: Folic Acid 1 MG Tablet PO (08:59)
[2024-03-24] MEDS: Lactulose 20 GM/30 ML UDC 10 GM PO ×2 (09:00→21:06)
[2024-03-24] MEDS: DULoxetine Hcl 30 MG Capsule PO ×2 (09:00→21:04)
[2024-03-24] MEDS: cloNIDine HCl 0.2 MG Tablet PO ×2 (09:00→21:05)
[2024-03-24] MEDS: carBAMazepine 200 MG CPMP.12HR 400 MG PO ×2 (09:00→21:05)
[2024-03-24] MEDS: amLODIPine 10 MG Tablet PO (09:01)
[2024-03-24] MEDS: levETIRAcetam 1,000 MG Tablet 1000 MG PO ×2 (09:01→21:04)
[2024-03-24] MEDS: Metoprolol(XL)Succ 25 MG Tablet PO (09:01)
[2024-03-24] MEDS: Lisinopril 20 MG Tablet PO ×2 (09:02→21:04)
[2024-03-24] MEDS: Pantoprazole Sodium 40 MG in 0.9% Normal Saline (100mL MB+) 100 ML 330 MG IV ×2 (09:02→21:59)
[2024-03-24] MEDS: Cyanocobalamin 500 MCG Tablet 1000 MCG PO (09:02)
--- NOTE | 2024-03-24 09:28 | PCM.PN.HOSP ---
Reason for Visit Reason for Visit: Diagnoses Hypo-osmolality and hyponatremia (03/23/24) Gastrointestinal hemorrhage, unspecified (03/23/24) Objective Data Objective Data Vital Signs: Vital Signs Temp Pulse Resp BP Pulse Ox O2 Del Method O2 Flow Rate 98.0 F 80 20 H 149/64 H 98 Nasal Cannula 2 03/24/24 08:30 03/24/24 09:01 03/24/24 08:30 03/24/24 09:01 03/24/24 08:30 03/24/24 08:30 03/24/24 08:30 Oxygen Flow Rate (L/min) 2 Oxygen Delivery Method Nasal Cannula Weight: 130 lb 8.218 oz Body Mass Index (BMI) 25.4 Intake & Output: Intake and Output for Last 24 Hours 03/22/24 03/23/24 03/24/24 23:59 23:59 23:59 Intake Total 450 / 810 1710 / 1710 Balance 450 / 810 1710 / 1710 Lab / Micro Data 03/24/24 04:00 03/24/24 04:00 Labs: Laboratory Results - last 24 hr 03/23/24 09:15: WBC 5.6, RBC 3.13 L, Hgb 10.6 L, Hct 30.9 L, MCV 98.7, MCH 33.9 H, MCHC 34.3, RDW Std Deviation 48.3 H, RDW Coeff of Sanju 13.6, Plt Count 173, MPV 9.8, Immature Gran % (Auto) 0.500, Neut % (Auto) 72.4 H, Lymph % (Auto) 18.5 L, [place] % (Auto) 8.0, Eos % (Auto) 0.2, Baso % (Auto) 0.4, Absolute Neuts (auto) 4.1, Absolute Lymphs (auto) 1.04, Nucleated RBC % 0, Sodium 118 L*, Potassium 5.5 H, Chloride 80 L, Carbon Dioxide 32.0, Anion Gap 6, BUN 5 L, Creatinine 0.34 L, Estim Creat Clear Calc 143.24, Est GFR (MDRD) Af Amer 251, Est GFR (MDRD) Non-Af 207, BUN/Creatinine Ratio 14.7, Glucose 113 H, Calcium 8.7, Total Bilirubin 0.70, Direct Bilirubin < 0.05, AST 55 H, ALT 16, Alkaline Phosphatase 232 H, Troponin I High Sens 9, Total Protein 7.8, Albumin 2.4 L, Globulin 5.4 H, Lipase 12 L 03/23/24 10:00: PT 13.3, INR 1.0, Serum Osmolality 264 L, Ammonia 18.0, Ethyl Alcohol < 3.0 03/23/24 11:31: Urine Color Yellow, Urine Clarity Clear, Urine pH 7.0, Ur Specific [place] 1.005, Urine Protein Negative, Urine Glucose (UA) Normal, Urine Ketones Negative, Urine Occult Blood Negative, Urine Nitrite Negative, Urine Bilirubin Negative, Urine Urobilinogen Normal, Ur Leukocyte Esterase Negative, Urine RBC 0 SEEN, Urine WBC 0 SEEN, Ur Squamous Epith Cells 0 SEEN, Urine Bacteria 0 SEEN, Urine Mucus 0 SEEN 03/23/24 13:31: Phosphorus 3.7, Magnesium 1.8, Total Creatine Kinase 88 03/23/24 16:09: Hgb 9.5 L, Hct 27.9 L, Sodium 124 L, Potassium 3.7, Chloride 83 L, Carbon Dioxide 33.0 H, Anion Gap 8, BUN 5 L, Creatinine 0.24 L, Estim Creat Clear Calc 198.11, Est GFR (MDRD) Af Amer 386, Est GFR (MDRD) Non-Af 319, BUN/Creatinine Ratio 21.3 H, Glucose 148 H, Calcium 8.6 03/23/24 18:15: Urine Osmolality 261, U Random Total Protein 14.6 H, Ur Random Sodium 24, Urine Creatinine 26.30, Protein/Creatinin Ratio 555 H, Urine Potassium 12.0, Urine Chloride 19, Urine Opiates Screen NEGATIVE, Urine Methadone Screen NEGATIVE, Ur Barbiturates Screen NEGATIVE, Ur Phencyclidine Scrn NEGATIVE, Ur Amphetamines Screen NEGATIVE, MDMA (Ecstasy) Screen NEGATIVE, U Benzodiazepines Scrn NEGATIVE, Urine Cocaine Screen NEGATIVE, U Cannabinoids Screen NEGATIVE, Ur Drug Screen Comment 03/23/24 20:09: Sodium 122 L 03/23/24 22:00: Hgb 8.4 L, Hct 24.5 L 03/24/24 00:09: Sodium 121 L 03/24/24 04:00: WBC 5.0, RBC 2.52 L, Hgb 8.4 L, Hct 25.1 L, MCV 99.6 H, MCH 33.3 H, MCHC 33.5, RDW Std Deviation 48.7 H, RDW Coeff of Sanju 13.4, Plt Count 154, MPV 9.1, Immature Gran % (Auto) 0.200, Neut % (Auto) 53.9, Lymph % (Auto) 33.3, [place] % (Auto) 12.0 H, Eos % (Auto) 0.4, Baso % (Auto) 0.2, Absolute Neuts (auto) 2.7, Absolute Lymphs (auto) 1.66, Nucleated RBC % 0, Anisocytosis 2+, Macrocytosis 1+, Sodium 122 L, Potassium 3.3 L, Chloride 81 L, Carbon Dioxide 32.0, Anion Gap 9, BUN 3 L, Creatinine 0.37 L, Estim Creat Clear Calc 128.50, Est GFR (MDRD) Af Amer 226, Est GFR (MDRD) Non-Af 186, BUN/Creatinine Ratio 8.0 L, Glucose 112 H, Calcium 8.6, Total Bilirubin 0.40, AST 24, ALT 14, Alkaline Phosphatase 194 H, Total Protein 7.1, Albumin 2.3 L, Globulin 4.8 H, Albumin/Globulin Ratio 0.5 L Micro: Microbiology 03/23/24 11:25 Stool Stool Occult Blood (NAHOMI) - Final Occult Blood Positive Radiography Diagnostic Testing: Radiology Impression Brain CT 03/23/24 09:41 IMPRESSION: 1. No acute intracranial process. 2. 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 3. Left maxillary sinus disease. Electronically Signed: Andrea Henderson MD at 12:03 EDT Reading Location ID and State: [facility] / [place] Tel , Service support , Cervical Spine CT 03/23/24 09:41 IMPRESSION: 1. No evidence of acute cervical spinal fracture or spondylolisthesis or 2. Postoperative and multilevel degenerative changes. Electronically Signed: Andrea Henderson MD at 12:09 EDT , Abdomen/Pelvis CT 03/23/24 09:46 IMPRESSION: 1. Irregular liver suggestive of cirrhosis. 2. Moderate amount of ascites. 3. No focal acute inflammatory process. 4. Somewhat limited examination due to motion. Electronically Signed: Andrea Henderson MD at 11:58 EDT , Chest X-Ray 03/23/24 10:00 IMPRESSION: Linear atelectatic changes in the right perihilar region. Electronically Signed: Andrea Henderson MD at 11:38 EDT , Physical Exam Narrative Seen and examined. Yesterday, CIWA score was 9 therefore started on phenobarb. Patient was agitated but in the morning patient quite and was sleeping. She woke up. She was upset with all the alcohol withdrawal stabilizing medications and phenobarb. Discussed with the patient's daughter near the bedside. Physical exam: General: Alert, Oriented x3, Cooperative. HEENT: Atraumatic, PERRLA, EOMI, Normocephalic Oral: Oral mucosa dry. No Gingival or Mucosal Lesions/ Ulcerations Neck: Supple, No JVD, Negative Carotid Bruits Chest wall/Lungs: Air entry diminished in bilateral lung bases. Bilateral expiratory rhonchi Cardiovascular: Regular rate, Regular Rhythm, Normal S1, Normal S2, No M/G/R Abdomen: Bowel Sounds Present, Soft, nondistended, shifting dullness present. No palpable mass. : No dysuria. No renal angle tenderness. No suprapubic tenderness. Extremities: No edema, Capillary Refill Less than 3 Seconds Skin: Bruises all over upper extremities, lower extremity. Bruise over left forehead Musculoskeletal: No Tenderness to Palpation of Joints or Extremities. Chronic mild paraspinal muscle tenderness. Neurological: Cranial nerves II-XII grossly intact, DTR 2+/4. Muscle strength 4/5 at hips and knee joints. Tremors, chronic and upper extremities. Psych/Mental Status: Flat affect Assessment & Plan Assessment/Plan (1) Hyponatremia: (2) Upper GI bleed: PLAN: Plan This is a 59-year-old female came to ED for generalized weakness, recurrent fall for about 10 days along with upper GI bleed and severe hyponatremia 1. Acute severe on chronic hyponatremia, hypotonic hypovolemic probably due to chronic beer potomania along with low solute intake: Patient is being admitted in PCU. [facility] Loose End Finder is consulted. Since it is chronic hyponatremia over the past 10 days, increased sodium gradually and no indication for hypertonic saline. IV fluid normal saline 75 mill per hour check sodium every 4 hours. Twelve-lead EKG shows normal sinus rhythm at 78 bpm, QTc 405 ms. Serum osmolality, urine electrolytes, urine osmolarity and urine sodium ordered 03/24: Serum osmolality low at 264. CK normal. Urine osmolality 261, sodium 24, specific gravity low therefore most likely low solute intake, beer potomania. Patient was seen by continuous process tanner rotary drum and IV fluid was changed to D5W after increase in sodium from 118 -224 and then sodium dropped to 121. Gradually increasing to 122. Continue monitoring sodium every 4 hourly. 2. Upper GI bleed : IV pantoprazole 40 mg every 12 hourly. H&H 10.6/31%, platelet count 173,000. GI is consulted. Stool for occult blood positive. Patient is hypertensive. Last EGD in December 2022 shows grade 1 esophageal varices, PHG, IGV 1 varices located in fundus.Colonoscopy in December 2022 showed nonbleeding external and internal hemorrhoids, diverticulosis in RS, Sigmoid and D colon. 03/24: H&H dropped to 8.4/25%. IV iron ordered. 3. Chronic alcoholic cirrhosis decompensated with with chronic ascites and thrombocytopenia: AST and ALT have been elevated in the past since May 2021. AST 55, ALT 16 more than 321 ratio. Alkaline phosphatase is also elevated. INR normal. Hypoalbuminemia. Total bilirubin normal. Monitor liver chemistry. CT abdomen and pelvis with IV contrast individually reviewed shows irregular liver contour, no focal lesion. Portal vein is patent, nonvisualization of gallbladder. Spleen normal in size. Pancreas not enlarged. Moderate amount of ascites in the abdomen and pelvis. 4. Acute encephalopathy probably due to alcohol and hyponatremia/toxic and metabolic encephalopathy. Acute alcohol withdrawal syndrome with history of chronic alcohol use dependence and tolerance: Serum alcohol level is normal but patient drinks heavily. Serum ammonia normal. Lactulose is ordered. 03/24: Patient was started on phenobarbital based order set along with other adjunctive medications gabapentin, Bentyl, Vistaril, clonidine, Klonopin as needed for alcohol withdrawal symptom control on 03/23. Patient is on thiamine and folate acid. CIWA monitor. physical therapist center manager 180 consulted. 5. Generalized weakness, unable to do ADL with debility and recurrent fall and bruises: PT and OT ordered. 6. Chronic severe malnutrition: BMI 25.5 kg/m? patient has generalized low muscle mass including paravertebral and craniofacial regions. Loss of subcutaneous fat. Easy bruisability. 7. Hypertension: Blood pressure 1 systolic 180s. Clonidine 0.2 mg twice daily. 8. Dyslipidemia: On atorvastatin 80 mg daily. 9. COPD: Patient never had PFT but carries a diagnosis of COPD from PCP. She is on Symbicort and albuterol inhaler at home. On home O2 2 L/min. Symbicort continued. DuoNeb as needed. 10. Chronic seizure disorder, exact type, severity and duration unclear: Continue carbamazepine and Keppra. 11.. Anxiety/depression, bipolar disorder and chronic tremor: Patient is on perphenazine. Patient states she has chronic tremor from perphenazine VTE prophylaxis: Bilateral SCDs. Pharmacological prophylaxis contraindicated because of GI bleed, chronic anemia I talked to the patient's daughter near the bedside and explained about multiple active medical diagnoses including what has been mentioned above. She admitted that she drinks alcohol heavily at home and wants to go home and drink again. Living will/advanced directive/end of life care: Patient does not have living will or advanced directive. She does not report any major power of real estate associate attorney for health. is next to kin. After discussion of benefits/risks procedures involved with full code, DNR CC arrest and DNR CC, the patient opted for full code. Patient doesn't want artificial life support including intubation, tube feed, ventilator and/chest compression, and D/C Shock but want central venous catheter, vasopressor if needed Charges/Coding Visit Charges Inpatient E&M: 34584 Subs Hosp L2
[2024-03-24] MEDS: KCL 40mEq in 0.9% NS 40 MEQ/1,000 ML IV.SOLN 100 MEQ IV (10:57)
[2024-03-24] MEDS: Potassium Chloride Oral Tablet 20 MEQ 40 MEQ PO (13:28)
[2024-03-24 14:13] LABS: Sodium Level 121 mmol/L (136-145)
--- NOTE | 2024-03-24 16:13 | PN.RENAL_ITS ---
Subjective Subjective Follow-up on acute on chronic hyponatremia. I started D5W and her sodium has stalled. She feels a little bit better today, but currently on clear liquids. Oral intake is marginal. Urine sodium came back low. Objective Data Objective Data Vital Signs: Vital Signs Temp Pulse Resp BP Pulse Ox O2 Del Method O2 Flow Rate 97.5 F L 72 20 H 123/67 H 99 Nasal Cannula 3 03/24/24 12:30 03/24/24 12:30 03/24/24 12:30 03/24/24 12:30 03/24/24 12:30 03/24/24 14:00 03/24/24 14:00 Oxygen Flow Rate (L/min) 3 Oxygen Delivery Method Nasal Cannula Weight: 59.2 kg Body Mass Index (BMI) 25.4 Intake & Output: Intake and Output for Last 24 Hours 03/22/24 03/23/24 03/24/24 23:59 23:59 23:59 Intake Total 450 / 810 2157.5 / 2157.5 Balance 450 / 810 2157.5 / 2157.5 Lab / Micro Data Attestation: I reviewed the patient's lab results. 03/24/24 04:00 03/24/24 14:00 Labs: Laboratory Results - last 24 hr 03/23/24 16:09: Hgb 9.5 L, Hct 27.9 L, Sodium 124 L, Potassium 3.7, Chloride 83 L, Carbon Dioxide 33.0 H, Anion Gap 8, BUN 5 L, Creatinine 0.24 L, Estim Creat Clear Calc 198.11, Est GFR (MDRD) Af Amer 386, Est GFR (MDRD) Non-Af 319, B UN/Creatinine Ratio 21.3 H, Glucose 148 H, Calcium 8.6 03/23/24 18:15: Urine Osmolality 261, U Random Total Protein 14.6 H, Ur Random Sodium 24, Urine Creatinine 26.30, Protein/Creatinin Ratio 555 H, Urine Potassium 12.0, Urine Chloride 19, Urine Opiates Screen NEGATIVE, Urine Methadone Screen NEGATIVE, Ur Barbiturates Screen NEGATIVE, Ur Phencyclidine Scrn NEGATIVE, Ur Amphetamines Screen NEGATIVE, MDMA (Ecstasy) Screen NEGATIVE, U Benzodiazepines Scrn NEGATIVE, Urine Cocaine Screen NEGATIVE, U Cannabinoids Screen NEGATIVE, Ur Drug Screen Comment 03/23/24 20:09: Sodium 122 L 06/01/24 22:00: Hgb 8.4 L, Hct 24.5 L 03/24/24 00:09: Sodium 121 L 03/24/24 04:00: WBC 5.0, RBC 2.52 L, Hgb 8.4 L, Hct 25.1 L, MCV 99.6 H, MCH 33.3 H, MCHC 33.5, RDW Std Deviation 48.7 H, RDW Coeff of Sanju 13.4, Plt Count 154, MPV 9.1, Immature Gran % (Auto) 0.200, Neut % (Auto) 53.9, Lymph % (Auto) 33.3, [place] % (Auto) 12.0 H, Eos % (Auto) 0.4, Baso % (Auto) 0.2, Absolute Neuts (auto) 2.7, Absolute Lymphs (auto) 1.66, Nucleated RBC % 0, Anisocytosis 2+, Macrocytosis 1+, Sodium 122 L, Potassium 3.3 L, Chloride 81 L, Carbon Dioxide 32.0, Anion Gap 9, BUN 3 L, Creatinine 0.37 L, Estim Creat Clear Calc 128.50, Est GFR (MDRD) Af Amer 226, Est GFR (MDRD) Non-Af 186, BUN/Creatinine Ratio 8.0 L, Glucose 112 H, Calcium 8.6, Total Bilirubin 0.40, AST 24, ALT 14, Alkaline Phosphatase 194 H, Total Protein 7.1, Albumin 2.3 L, Globulin 4.8 H, A lbumin/Globulin Ratio 0.5 L 03/24/24 14:00: Sodium 121 L Micro: Microbiology 03/23/24 11:25 Stool Stool Occult Blood (NAHOMI) - Final Occult Blood Positive Physical Exam Const alert and oriented x3 Orientation / Consciousness: oriented to person, oriented to place and oriented to time Nutritional Appearance: cachectic HEENT normocephalic Head and Scalp: atraumatic Resp Auscultation: wheezes GI non-tender Auscultation: normoactive bowel sounds Skin General Skin Exam: petechiae Neuro Sensorium / Orientation: awake and alert Psych cooperative Assessment & Plan Assessment/Plan (1) Hyponatremia: PLAN: Acute hyponatremia, urine sodium is low, urine osmolality is low consistent with beer potomania. Sodium stalled with D5 W, she was recently changed to normal saline with potassium in it, so anticipate her sodium will improve
[2024-03-24] MEDS: Sodium Ferric Gluconat/Sucrose 250 MG in 0.9% Normal Saline (250mL Bag) 250 ML 135 MG IV (18:09)
[2024-03-24 20:23] LABS: Sodium Level 120 mmol/L (136-145)
[2024-03-24] MEDS: Atorvastatin Calcium 80 MG Tablet PO (21:05)
[2024-03-24 23:57] LABS: Internal QC Validated? YES +Cl - CLEAR BKGD; Pregnancy, Urine Negative Negative; Record Kit Lot#,Urine Preg 735774
[2024-03-25] VITALS (17 sets, daily range): BP systolic 116–170; BP diastolic 55–84; PULSE 70–94; RESP 16–22; TEMP 36.1–37.1; O2SAT 93–100
[2024-03-25 04:05] LABS: Absolute Lymphocyte Count 1.14 X10^3/uL (0.83-4.51); Absolute Neutrophil Count 3.3 X10^3/uL (2.0-7.7); Basophil# 0.02 X10^3/uL; Basophil% 0.4 % (0-1); Eosinophil# 0.04 X10^3/uL; Eosinophils% 0.8 % (0-5); Hematocrit 27.7 % (37-47); Hemoglobin 9.2 g/dL (12.0-15.0); Lymphocyte # 1.14 X10^3/ul (0.83-4.51); Lymphocyte % 22.7 % (19-41); Mean Corp Hgb Conc 33.2 g/dL (32-36); Mean Corpuscular Hgb 33.8 pg (27.0-32.0); Mean Corpuscular Volume 101.8 fL (81-99); Mean Platelet Vol. 9.7 fl (6.2-12.0); Monocyte# 0.52 X10^3/uL; Monocyte% 10.3 % (0-10); NRBC Flagged by Analyzer 0 % (0-5); Neutrophil # 3.29 X10^3/uL (2.7-7.7); Neutrophil % 65.4 % (47-70); Platelet Count 130 K/mm3 (150-450); RBC Distribution Width CV 13.8 % (11.6-14.6); RBC Distribution Width SD 51.3 fl (35.1-43.9); Red Blood Count 2.72 M/mm3 (4.2-5.4)
[2024-03-25 04:32] LABS: ALB/GLOB Ratio 0.5 RATIO (0.9-2.4); AST(SGOT) 30 U/L (15-37); Alanine Aminotransfer ALT/SGPT 15 U/L (13-56); Albumin, Serum 2.3 g/dL (3.2-5.0); Alkaline Phosphatase 192 U/L (45-117); Anion Gap 6 (5-15); BUN 3 mg/dL (7-18); BUN/Creat Ratio 11.4 RATIO (10-20); Calcium,Total 8.6 mg/dL (8.5-10.1); Chloride 90 mmol/L (98-107); Creatinine, Serum 0.26 mg/dL (0.55-1.02); EST Glomerular Filtration Rate 279 mL/min (>60); Est Glom Filt Rate - Afr Amer 337 mL/min (>60); Estimated Creatinine Clearance 182.87 ml/min; Globulin 4.8 g/dL (2.2-4.2); Glucose 102 mg/dL (74-106); Potassium 4.1 mmol/L (3.5-5.1); Protein, Total 7.1 g/dL (6.4-8.2); Sodium Level 126 mmol/L (136-145)
[2024-03-25] MEDS: Phenobarbital 32.4 MG Tablet 64.8 MG PO ×5 (05:23→20:51)
[2024-03-25] MEDS: cloNIDine HCl 0.2 MG Tablet PO ×2 (06:16→20:50)
[2024-03-25] MEDS: amLODIPine 10 MG Tablet PO ×2 (06:16→06:17)
[2024-03-25] MEDS: Lisinopril 20 MG Tablet PO ×2 (06:17→20:50)
[2024-03-25] MEDS: Budesonide Respules 0.5 MG/2 ML AMPUL.NEB. INHALATION ×2 (07:15→20:05)
[2024-03-25] MEDS: Ipratropium/Albuterol Sulfate 3 ML AMPUL.NEB INHALATION ×2 (07:15→20:05)
--- NOTE | 2024-03-25 09:23 | PN.HOSP_ITS ---
Reason for Visit Reason for Visit: Diagnoses Hypo-osmolality and hyponatremia (03/23/24) Gastrointestinal hemorrhage, unspecified (03/23/24) Subjective Subjective Feels ok. Does not want SNF. Objective Data Objective Data Vital Signs: Vital Signs Temp Pulse Resp BP Pulse Ox O2 Del Method O2 Flow Rate 36.2 C L 75 22 H 170/84 H 96 Nasal Cannula 2 03/25/24 06:15 03/25/24 07:15 03/25/24 07:15 03/25/24 06:15 03/25/24 07:15 03/25/24 08:00 03/25/24 08:00 Oxygen Flow Rate (L/min) 2 Oxygen Delivery Method Nasal Cannula Weight: 59.2 kg Body Mass Index (BMI) 25.4 Intake & Output: Intake and Output for Last 24 Hours 03/23/24 03/24/24 03/25/24 23:59 23:59 23:59 Intake Total 450 / 810 3387.5 / 3507.5 420 / 420 Balance 450 / 810 3387.5 / 3507.5 420 / 420 Lab / Micro Data 03/25/24 03:45 03/25/24 03:45 Labs: Laboratory Results - last 24 hr 03/24/24 14:00: Sodium 121 L 03/24/24 20:05: Sodium 120 L 03/24/24 23:52: Urine Test Negative 03/25/24 03:45: WBC 5.0, RBC 2.72 L, Hgb 9.2 L, Hct 27.7 L, MCV 101.8 H, MCH 33.8 H, MCHC 33.2, RDW Std Deviation 51.3 H, RDW Coeff of Sanju 13.8, Plt Count 130 L, MPV 9.7, Immature Gran % (Auto) 0.400, Neut % (Auto) 65.4, Lymph % (Auto) 22.7, [place] % (Auto) 10.3 H, Eos % (Auto) 0.8, Baso % (Auto) 0.4, Absolute Neuts (auto) 3.3, Absolute Lymphs (auto) 1.14, Nucleated RBC % 0, Sodium 126 L, Potassium 4.1, Chloride 90 L, Carbon Dioxide 30.0, Anion Gap 6, BUN 3 L, C reatinine 0.26 L, Estim Creat Clear Calc 182.87, Est GFR (MDRD) Af Amer 337, Est GFR (MDRD) Non-Af 279, BUN/Creatinine Ratio 11.4, Glucose 102, Calcium 8.6, Total Bilirubin 0.50, AST 30, ALT 15, Alkaline Phosphatase 192 H, Total Protein 7.1, Albumin 2.3 L, Globulin 4.8 H, Albumin/Globulin Ratio 0.5 L Micro: Microbiology 03/23/24 11:25 Stool Stool Occult Blood (NAHOMI) - Final Occult Blood Positive Physical Exam Const alert and no apparent distress Constitutional Narrative: appears older than stated age. HEENT head/scalp atraumatic and moist oral mucous membranes Resp normal respiratory effort, no retractions and no use of accessory muscles Cardio regular rate, regular rhythm, S1 normal heart sound and S2 normal heart sound GI normal to inspection, nondistended, normoactive bowel sounds and soft to palpation Extremity normal to inspection and full ROM Assessment & Plan Assessment/Plan (1) Hyponatremia: (2) Upper GI bleed: PLAN: Plan Acute severe on chronic hyponatremia, * Improving * likely 2/2 hypotonic hypovolemic probably due to chronic beer potomania along with low solute intake: Upper GI bleed : * Hg stable after initial drop. * Did receive IV iron x1 * on IV PPI * GI consult * EGD on 03/25 showed grade 1 esophageal varices. Portal hypertensive gastropathy which was biopsied. Chronic alcoholic cirrhosis decompensated with with chronic ascites. Complicates care and recovery. Long-term alcohol cessation advised. Acute encephalopathy * likely metabolic possibly due alcohol withdrawal. * Not hepatic encephalopathy given normal ammonia. Not due to alcohol intoxication as level was normal on admission. * Since started on phenobarbital taper. * Family has indicated that patient will likely resume alcohol consumption after discharge. Debility * Secondary to multiple medical comorbidities. PT OT evaluate and treat. * Patient does not want to go to a SNF but is open to going to having home health care. * Daughter was present in the room and discussed with the patient about the concern that the medical staff as well as patient's daughter have in regards to her being able to do her ADLs at home. Patient expressed understanding but insist on going home. Chronic severe malnutrition: * Nutrition consult * BMI 25.5 kg/m? patient has generalized low muscle mass including paravertebral and craniofacial regions. Loss of subcutaneous fat. Easy bruisability. Chronic conditions * Hypertension: Blood pressure 1 systolic 180s. Clonidine 0.2 mg twice daily. * Dyslipidemia: On atorvastatin 80 mg daily. * COPD: Patient never had PFT but carries a diagnosis of COPD from PCP. She is on Symbicort and albuterol inhaler at home. On home O2 2 L/min. Symbicort continued. DuoNeb as needed. * Chronic seizure disorder, exact type, severity and duration unclear: Continue carbamazepine and Keppra. * Anxiety/depression, bipolar disorder and chronic tremor: Patient is on perphenazine. Patient states she has chronic tremor from perphenazine VTE prophylaxis: Bilateral SCDs. Pharmacological prophylaxis contraindicated because of GI bleed, chronic anemia Code status: DNRCCA. Charges/Coding Visit Charges Inpatient E&M: 16831 Subs Hosp L2
[2024-03-25] MEDS: Thiamine Hydrochloride 100 MG Tablet PO (09:27)
[2024-03-25] MEDS: Folic Acid 1 MG Tablet PO (09:27)
[2024-03-25] MEDS: Cyanocobalamin 500 MCG Tablet 1000 MCG PO (09:28)
[2024-03-25] MEDS: DULoxetine Hcl 30 MG Capsule PO ×2 (09:28→20:50)
[2024-03-25] MEDS: carBAMazepine 200 MG CPMP.12HR 400 MG PO ×2 (09:28→20:51)
[2024-03-25] MEDS: Ergocalciferol 1.25 MG (50, 000 UNIT) Capsule PO (09:28)
[2024-03-25] MEDS: Lactulose 20 GM/30 ML UDC 10 GM PO ×2 (09:28→20:50)
[2024-03-25] MEDS: levETIRAcetam 1,000 MG Tablet 1000 MG PO ×2 (09:28→20:50)
[2024-03-25] MEDS: Metoprolol(XL)Succ 25 MG Tablet PO (09:28)
[2024-03-25] MEDS: Pantoprazole Sodium 40 MG in 0.9% Normal Saline (100mL MB+) 100 ML 330 MG IV ×2 (09:29→20:49)
[2024-03-25] MEDS: Potassium Chloride Oral Tablet 20 MEQ 40 MEQ PO (09:37)
--- NOTE | 2024-03-25 09:50 | CASEMGMT ---
RN PONCHO Face to Face with patient for initial transition planning/care coordination assessment. RN CM introduced self and role at [facility]. Patient lying in bed, alert and oriented. Patient willing to participate in assessment and is able to answer all questions appropriately. Care providers, pharmacy, and demographics verified. PCP: Gavino Specialists: psychologist Dee Preferred Pharmacy: [facility] Insurance: [employer] Prescription Benefit: yes Living Will/HPOA: none LNOK: Living Arrangements: Patient lives with in a single story home with 3 steps to enter. Patient states that [employer] is working on building a ramp for patient. Patient states her assists her with her ADLs Transportation: DME/HHC: Patient has cane, walker, rollator, wheelchair, and [facility]. No previous HHC or SNF. Patient states she has passport services but cannot recall family service caseworker at [facility]. Patient wishes to discharge home and is interested in HHC at discharge. CM to provide list of HHC for patient to review. Patient states she has no further needs or concerns at this time. CM to follow for discharge planning needs that may arise. Disposition Plan: Patient to discharge home with HHC, family support, and follow-up plans in place. Rosie HARPER, RN, CM
[2024-03-25] MEDS: 0.9% Normal Saline (1000mL) 1,000 ML 15 ML IV (11:17)
--- NOTE | 2024-03-25 12:00 | IMM_PTH ---
PATIENT: FELIX NETTLES LOC: [facility] U#:[id number] AGE/SX: 59/F ROOM: [facility] RE03/23/[address]: Dr. Mason Loza DO : 1965 BED: 1 DIS: 03/26/2024 SPEC #: [id number] RECD: 03/25/24 13:33 STATUS: TRISTEN REQ #: [id number] SENAIT: 03/25/24 12:[address]: Cal Bahena DEPT: IMMUNOHISTOCHEMISTRY RECD BY: Noah Aguilar ENTERED: 03/25/24 13:34 SP TYPE: IMMUNO OTHR DR: MD Dr. Mason Ramos DO Dr. Olga Voroshilova, MD Dr. Prakash Chand, MD Tissues: Gastric mucous membrane Procedures: H Pylori (initial) PHYSICIAN & INSTITUTION [place] [address] SPECIMEN INFORMATION: Tissue Source: Gastric antrum biopsy Clinical Info: Upper GI bleed Specimen Number: [id number] CPT code: 02486 METHODOLOGY: Deparaffinized sections of prefer/formalin-fixed tissue or PAP/DQ stained slides are incubated with monoclonal/polyclonal antibodies/oligonucleotide probes. Localization is made via biotin free immunoperoxidase method. Appropriate controls are performed and reacted as expected. Results on target cell population are indicated in the following table: RESULTS: ANTIBODY / CLONE RESULT H Pylori (polyclonal) negative These tests were developed and their performance characteristics determined by [facility]. They may not have been cleared or approved by the U.S. Food and Drug Administration. The FDA has determined that such clearance or approval is not necessary. The above immunohistochemical/dualISH markers are ordered and reviewed by the Pathologist. INTERPRETATION: Gastric antrum, biopsy: Negative for Helicobacter pylori organisms. LEONEL/ 03/26/2024
--- NOTE | 2024-03-25 12:00 | EGD_PTH ---
PATIENT: FELIX NETTLES LOC: [facility] U#:[id number] AGE/SX: 59/F ROOM: [facility] RE03/23/[address]: Dr. Mason Loza DO : 1965 BED: 1 DIS: 03/26/2024 SPEC #: [id number] RECD: 03/25/24 13:05 STATUS: TRISTEN SAVAGECamron #: [id number] SENAIT: 03/25/24 12:[address]: Cal Bahena DEPT: SURGICAL PATHOLOGY RECD BY: Sarah Goldman ENTERED: 03/25/24 13:31 SP TYPE: EGD BIOPSY [facility] DR: MD Dr. Mason Ramos DO Dr. Olga Voroshilova, MD Dr. Prakash Chand, MD Tissues: Gastric mucous membrane Procedures: Surgery Specimen Level IV HEADER OPERATION: EGD with biopsy PRE-OP DIAGNOSIS: Upper GI bleed TISSUE SUBMITTED: Gastric antrum biopsy MICROSCOPIC DIAGNOSIS Gastric antrum, biopsy: Mild gastritis. See microscopic description and comment. LEONEL/ 03/26/2024 COMMENT The results of immunohistochemistry for Helicobacter pylori will be reported separately ([id number]). MICROSCOPIC DESCRIPTION Slides are reviewed. The specimen shows fragments of gastric mucosa with chronic inflammatory cell infiltrates in the lamina propria consisting of lymphocytes and plasma cells, consistent with mild chronic gastritis. GROSS DESCRIPTION Received in fixative is one container labeled with the patient's name and designated Gastric antrum biopsy. The specimen consists of one irregular fragment of light guadalupe soft tissue that measures 0.5 x 0.3 x 0.1 cm. The specimen is totally submitted in one cassette. LEONEL/ 03/25/24 TC:3 CPT:10145
--- NOTE | 2024-03-25 13:00 | OP.CCLET_ITS ---
03/25/2024 Geovani Mancia Re : Upper GI endoscopy procedure for Aisha Ha Dear Gavino This procedure was performed on Monday, March 25, 2024. My impressions and recommendations are as follows: Impressions : - Grade I esophageal varices. - Portal hypertensive gastropathy. Biopsied. - Normal first portion of the duodenum. Recommendations : - Await pathology results. - Repeat upper endoscopy in 3 months for surveillance. - Continue present medications. My findings are described in the full procedure note, which is enclosed. If I can be of further assistance, please feel free to contact me at . Sincerely, Cal Bahena, 03/25/2024 1:00:19 PM This report has been signed electronically.
--- NOTE | 2024-03-25 13:00 | OP.EGD_ITS ---
Patient Name: Aisha Ha Procedure Date: 03/25/2024 12:36 PM Date of : 1965 Age: 59 Procedure: Upper GI endoscopy Indications: Iron deficiency anemia, Hematemesis, Cirrhosis with suspected esophageal varices Providers: Cal Bahena DO Medicines: Monitored Anesthesia Care Patient Profile: This is a 59 year old female. Refer to note in patient chart for documentation of history and physical. Patient has symptoms of acute nausea and acute vomiting. Complications: No immediate complications. Procedure: Pre-Anesthesia Assessment: - Prior to the procedure, a History and Physical was performed, and patient medications and allergies were reviewed. The patient is competent. The risks and benefits of the procedure and the sedation options and risks were discussed with the patient. All questions were answered and informed consent was obtained. Patient identification and proposed procedure were verified by the physician in the pre-procedure area. Mental Status Examination: alert and oriented. Airway Examination: normal oropharyngeal airway and neck mobility. Respiratory Examination: clear to auscultation. Prophylactic Antibiotics: The patient does not require prophylactic antibiotics. Prior Anticoagulants: The patient has taken no anticoagulant or antiplatelet agents. ASA Grade Assessment: III - A patient with severe systemic disease. After reviewing the risks and benefits, the patient was deemed in satisfactory condition to undergo the procedure. The anesthesia plan was to use monitored anesthesia care (MAC). Immediately prior to administration of medications, the patient was re-assessed for adequacy to receive sedatives. The heart rate, respiratory rate, oxygen saturations, blood pressure, adequacy of pulmonary ventilation, and response to care were monitored throughout the procedure. The physical status of the patient was re-assessed after the procedure. After obtaining informed consent, the endoscope was passed under direct vision. Throughout the procedure, the patient's blood pressure, pulse, and oxygen saturations were monitored continuously. The gastroscope was introduced through the mouth, and advanced to the second part of duodenum. The upper GI endoscopy was accomplished without difficulty. The patient tolerated the procedure well. Scope In: 12:42:34 PM Scope Out: 12:46:34 PM Total Procedure Duration Time 0 hours 4 minutes 0 seconds Findings: Grade I varices were found in the lower third of the esophagus. They were 5 mm in largest diameter. Severe portal hypertensive gastropathy was found in the stomach. Biopsies were taken with a cold forceps for histology. The first portion of the duodenum was normal. Impression: - Grade I esophageal varices. - Portal hypertensive gastropathy. Biopsied. - Normal first portion of the duodenum. Recommendation: - Await pathology results. - Repeat upper endoscopy in 3 months for surveillance. - Continue present medications. Procedure Code(s): --- Professional --- 65547, Esophagogastroduodenoscopy, flexible, transoral; with biopsy, single or multiple CPT copyright 2021 [employer]. All rights reserved. The codes documented in this report are preliminary and upon hygiene coordinator review may be revised to meet current compliance requirements. Cal Bahena DO 03/25/2024 1:00:19 PM This report has been signed electronically. Number of Addenda: 0 Note Initiated On: 03/25/2024 12:36 PM
[2024-03-25] MEDS: Acetaminophen 325 MG Tablet 650 MG PO ×2 (13:28→18:14)
--- NOTE | 2024-03-25 14:30 | CHAPLAIN ---
Type of Pastoral Visit _x__ Initial Visit ___ Follow-up Visit ___ On-call Visit ___ General Patient Visit ___ Spiritual Assessment ___ Family Conference ___ Bereavement ___ Rapid Response ___ Code Blue ___ Other (describe below) Pastoral Care Referral From _x__ Patient ___ Family ___ Nurse ___ Physician ___ Programming Engineer ___ Regulatory Affairs Internship ___ Other (describe below) Sacrament/Intervention ___ Active listening ___ Anointing ___ Druze ___ Bereavement ___ Communion ___ Kathi exploration ___ ___ Life review _x__ Prayer ___ Reconciliation ___ Sacrament of Sick _x__ Supportive presence ___ Wedding ___ Other (describe below) Pastoral Comments patient is welcoming and engages briefly in a casual conversation; pt welcomes a prayer for support and admits that she is 'foggy from the medicines and wants to sleep
--- NOTE | 2024-03-25 14:39 | CASEMGMT ---
Patient has [facility], but does not know the name of her case operator. JACKIE called [facility] and patient's case operator is Rebekah Epperson. JACKIE left a message for rebekah. Eulalia Bucio MSW LIZBETH
[2024-03-25] MEDS: 0.9% Saline Lock 10 ML Syringe IV (20:49)
[2024-03-25] MEDS: Atorvastatin Calcium 80 MG Tablet PO (20:51)
[2024-03-26] MEDS: Phenobarbital 32.4 MG Tablet 64.8 MG PO ×3 (00:32→13:23)
[2024-03-26 03:00] VITALS: BP 150/80; PULSE 70; RESP 18; TEMP 36.4; O2SAT 96
[2024-03-26 06:39] LABS: Absolute Lymphocyte Count 1.05 X10^3/uL (0.83-4.51); Absolute Neutrophil Count 2.4 X10^3/uL (2.0-7.7); Basophil# 0.04 X10^3/uL; Eosinophil# 0.06 X10^3/uL; Eosinophils% 1.5 % (0-5); Hematocrit 27.4 % (37-47); Hemoglobin 9.1 g/dL (12.0-15.0); Lymphocyte # 1.05 X10^3/ul (0.83-4.51); Lymphocyte % 25.9 % (19-41); Mean Corp Hgb Conc 33.2 g/dL (32-36); Mean Corpuscular Hgb 34.2 pg (27.0-32.0); Mean Platelet Vol. 9.7 fl (6.2-12.0); Monocyte# 0.48 X10^3/uL; Monocyte% 11.8 % (0-10); NRBC Flagged by Analyzer 0 % (0-5); Neutrophil # 2.42 X10^3/uL (2.7-7.7); Neutrophil % 59.6 % (47-70); Platelet Count 122 K/mm3 (150-450); RBC Distribution Width SD 53.7 fl (35.1-43.9); Red Blood Count 2.66 M/mm3 (4.2-5.4); White Blood Count 4.1 K/mm3 (4.4-11.0)
[2024-03-26 07:11] VITALS: O2SAT 94
[2024-03-26 07:24] LABS: ALB/GLOB Ratio 0.5 RATIO (0.9-2.4); AST(SGOT) 29 U/L (15-37); Alanine Aminotransfer ALT/SGPT 14 U/L (13-56); Albumin, Serum 2.4 g/dL (3.2-5.0); Alkaline Phosphatase 195 U/L (45-117); Anion Gap 4 (5-15); BUN 3 mg/dL (7-18); BUN/Creat Ratio 10.2 RATIO (10-20); Calcium,Total 8.8 mg/dL (8.5-10.1); Chloride 91 mmol/L (98-107); Creatinine, Serum 0.29 mg/dL (0.55-1.02); EST Glomerular Filtration Rate 246 mL/min (>60); Est Glom Filt Rate - Afr Amer 298 mL/min (>60); Estimated Creatinine Clearance 163.95 ml/min; Globulin 4.7 g/dL (2.2-4.2); Glucose 88 mg/dL (74-106); Potassium 4.3 mmol/L (3.5-5.1); Protein, Total 7.1 g/dL (6.4-8.2); Sodium Level 126 mmol/L (136-145)
[2024-03-26 08:04] VITALS: BP 173/80; PULSE 71; RESP 16; TEMP 37; O2SAT 100
[2024-03-26] MEDS: Folic Acid 1 MG Tablet PO (08:15)
[2024-03-26] MEDS: Potassium Chloride Oral Tablet 20 MEQ 40 MEQ PO (08:15)
[2024-03-26] MEDS: cloNIDine HCl 0.2 MG Tablet PO (08:16)
[2024-03-26] MEDS: Lactulose 20 GM/30 ML UDC 10 GM PO (08:16)
[2024-03-26] MEDS: Thiamine Hydrochloride 100 MG Tablet PO (08:16)
[2024-03-26] MEDS: carBAMazepine 200 MG CPMP.12HR 400 MG PO (08:16)
[2024-03-26] MEDS: Pantoprazole Sodium 40 MG in 0.9% Normal Saline (100mL MB+) 100 ML 330 MG IV (08:17)
[2024-03-26] MEDS: levETIRAcetam 1,000 MG Tablet 1000 MG PO (08:17)
[2024-03-26] MEDS: DULoxetine Hcl 30 MG Capsule PO (08:17)
[2024-03-26 08:18] VITALS: BP 173/80; PULSE 71
[2024-03-26] MEDS: Cyanocobalamin 500 MCG Tablet 1000 MCG PO (08:18)
[2024-03-26] MEDS: Lisinopril 20 MG Tablet PO (08:18)
[2024-03-26] MEDS: Metoprolol(XL)Succ 25 MG Tablet PO (08:18)
--- NOTE | 2024-03-26 11:37 | CASEMGMT ---
Discharge Planning A list of?HH providers including quality and resource use data and consistent with the patient's preferred geographic region, medical needs, and insurance network was created in [employer] Guide.? This list was provided to the RN PONCHO. Odalis Francis, Discharge Planning Asst.
--- NOTE | 2024-03-26 12:36 | CASEMGMT ---
Addendum entered by Odalis Francis 03/26/24 14:46: All agencies declined referral. MARY CM updated. Odalis Francis DC Planning Asst. Original Note: Discharge Planning HH referral sent to Justina Marques, [facility], [facility], [facility], and [facility] . Odalis Francis DC Planning Asst.
--- NOTE | 2024-03-26 12:59 | DS.PCM_ITS ---
Providers Date of Admission: 03/23/24 Primary Care Physician: Dr. Geovani Mancia MD Consultations 03/23/24 13:41 Consult: Gastroenterology Routine Consulting Provider: [facility] Reason for Consult: Upper GI Bleed, alcholic hepatitis EMERGENT Consult: No Notified: Yes Date Notified: 03/23/24 Time Notified: 13:07 Method of Notification: ED Physician Initiated Consult: Nephrology Routine Consulting Provider: Eveline Underwood Reason for Consult: Hyponatremia severe. Chronic alcoholic EMERGENT Consult: No Notified: Yes Date Notified: 03/23/24 Time Notified: 13:08 Method of Notification: Verbal Reason For Visit: HYPONATREMIA Diagnosis Discharge Diagnosis (1) Hyponatremia: Status: Chronic Code(s): E87.1 - Hypo-osmolality and hyponatremia (2) Upper GI bleed: Status: Acute Code(s): K92.2 - Gastrointestinal hemorrhage, unspecified Plan Acute severe on chronic hyponatremia, * Improved overall. * likely 2/2 hypotonic hypovolemic probably due to chronic beer potomania along with low solute intake: Upper GI bleed : * Hg stable after initial drop. * Did receive IV iron x1 * on IV PPI * GI consult * EGD on 03/25 showed grade 1 esophageal varices. Portal hypertensive gastropathy which was biopsied. Chronic alcoholic cirrhosis decompensated with with chronic ascites. Complicates care and recovery. Long-term alcohol cessation advised. Acute encephalopathy * likely metabolic 2/2 alcohol withdrawal. * Not hepatic encephalopathy given normal ammonia. Not due to alcohol intoxication as level was normal on admission. * Since started on phenobarbital taper. * Family has indicated that patient will likely resume alcohol consumption after discharge. When asked the patient, she said that she is going to quit, that she does not require any additional treatment. She states that she will not get any alcohol because her is not going to give it to her. Then later states that her is a loser who rarely gives her alcohol. I told her that her reasoning for not drinking is unconvincing. Debility * Secondary to multiple medical comorbidities. PT OT evaluate and treat. * Patient does not want to go to a SNF but is open to going to having home health care. * Patient adamantly does not want to go to longterm facility and is open to having home health care. Chronic severe malnutrition: * Nutrition consult * BMI 25.5 kg/m? patient has generalized low muscle mass including paravertebral and craniofacial regions. Loss of subcutaneous fat. Easy bruisability. Alcohol abuse * Multivitamin * Patient declining any outpatient services * I am unconvinced the patient is legitimately going to quit drinking alcohol Chronic conditions * Hypertension: Blood pressure 1 systolic 180s. Clonidine 0.2 mg twice daily. * Dyslipidemia: On atorvastatin 80 mg daily. * COPD: Patient never had PFT but carries a diagnosis of COPD from PCP. She is on Symbicort and albuterol inhaler at home. On home O2 2 L/min. Symbicort continued. DuoNeb as needed. * Chronic seizure disorder, exact type, severity and duration unclear: Continue carbamazepine and Keppra. * Anxiety/depression, bipolar disorder and chronic tremor: Patient is on perphenazine. Patient states she has chronic tremor from perphenazine VTE prophylaxis: Bilateral SCDs. Pharmacological prophylaxis contraindicated because of GI bleed, chronic anemia Code status: DNRCCA. Medications at Discharge Home Medications alprazolam 1 mg tablet (Xanax) 1 mg PO QHS PRN anxiety 07/30/20 amlodipine 10 mg tablet 10 mg PO DAILY blood pressure 07/30/20 atorvastatin 80 mg tablet 80 mg PO QHS cholesterol 07/30/20 budesonide-formoterol HFA 160 mcg-4.5 mcg/actuation aerosol inhaler (Symbicort) 2 puff inhalation BID COPD 07/30/20 cyanocobalamin (vitamin B-12) 1,000 mcg capsule 1,000 mcg PO DAILY vitamin 07/30/20 ergocalciferol (vitamin D2) 1,250 mcg (50,000 unit) capsule 50,000 unit PO MO vitamin 07/30/20 escitalopram oxalate 20 mg tablet (Lexapro) 20 mg PO DAILY depression/anxiety 07/30/20 ipratropium 0.5 mg-albuterol 3 mg (2.5 mg base)/3 mL nebulization soln 3 ml inhalation Q6H PRN PRN shortnes of breath 07/30/20 levetiracetam 500 mg tablet (Keppra) 1,000 mg PO BID seizure 07/30/20 omeprazole 40 mg capsule,delayed release 40 mg PO BID GERD 07/30/20 perphenazine 2 mg tablet 2 mg PO QHS mental health 07/30/20 albuterol sulfate 90 mcg/actuation aerosol inhaler (Proventil HFA) 2 puff inhalation Q6H PRN COPD 06/17/21 lisinopril 10 mg tablet 20 mg PO BID blood pressure 06/17/21 tiotropium bromide 2.5 mcg/actuation mist for inhalation (Spiriva Respimat) 2 puff inhalation QDAY #1 ea 10/04/21 ondansetron 8 mg disintegrating tablet 8 mg PO Q12H 10/27/22 carbamazepine 200 mg tablet,extended release,12 hr 400 mg PO BID 03/23/24 duloxetine 30 mg capsule,delayed release 30 mg PO BID 03/23/24 metoprolol succinate 25 mg tablet,extended release 24 hr 25 mg PO DAILY 03/23/24 ondansetron HCl 4 mg tablet 4 mg PO BID PRN PRN nausea/vomiting 03/23/24 multivitamin (Daily Multi-Vitamin tablet) 1 tab PO DAILY #30 tabs 03/26/24 Hospital Course Operations None Procedures EGD Summary of Care Provided Minutes Spent on Discharge: 32 Hospital Course: Patient presents with falls. Patient also had episode of coffee-ground emesis. Patient was noted to be confused. Presented emergency room where her sodium was noted to be 118. [place] to be related with beer [place] genes[place]. Patient sodium did improve to 126. Patient did undergo an EGD for the coffee-ground emesis that showed grade 1 esophageal varices, portal hypertensive gastropathy. Patient did require iron but no transfusions while she was here. Patient did have some confusion and is felt to be related with alcohol withdrawal more so than the hyponatremia. Patient mental status did improve but she was treated for alcohol withdrawal with phenobarbital taper. With her falls, patient is very weak and debilitated, appears much older than her 59 years of age. Did strongly advise alcohol cessation. Patient states that she is going to do so on her own, did not require any services and states that she will be getting alcohol anymore because her will give it to her though shortly afterwards states that her would give her alcohol because he was a loser. Family is already expressed concern that the patient is likely to resume drinking when she goes back home. Patient did seem to be evasive when asking her questions about how she is going to remain sober and she initially said that they got rid of all the beer in the house and then asked about liquors and she reluctantly said to get rid of that, too. Physical Exam Const alert and no apparent distress Constitutional Narrative: Nontoxic. Afebrile. Appears much older than stated age. Weight / BMI Weight Weight: 59.2 kg Body Mass Index (BMI) 25.4 ABG / Lab / Microbiology Data 03/26/24 05:40 03/26/24 05:40 Laboratory: Laboratory Results - last 24 hr 03/26/24 05:40: WBC 4.1 L, RBC 2.66 L, Hgb 9.1 L, Hct 27.4 L, MCV 103.0 H, MCH 34.2 H, MCHC 33.2, RDW Std Deviation 53.7 H, RDW Coeff of Sanju 14.0, Plt Count 122 L, MPV 9.7, Immature Gran % (Auto) 0.200, Neut % (Auto) 59.6, Lymph % (Auto) 25.9, [place] % (Auto) 11.8 H, Eos % (Auto) 1.5, Baso % (Auto) 1.0, Absolute Neuts (auto) 2.4, Absolute Lymphs (auto) 1.05, Nucleated RBC % 0, Sodium 126 L, Potassium 4.3, Chloride 91 L, Carbon Dioxide 31.0, Anion Gap 4 L, BUN 3 L, C reatinine 0.29 L, Estim Creat Clear Calc 163.95, Est GFR (MDRD) Af Amer 298, Est GFR (MDRD) Non-Af 246, BUN/Creatinine Ratio 10.2, Glucose 88, Calcium 8.8, Total Bilirubin 0.50, AST 29, ALT 14, Alkaline Phosphatase 195 H, Total Protein 7.1, A lbumin 2.4 L, Globulin 4.7 H, Albumin/Globulin Ratio 0.5 L Microbiology: Microbiology 03/23/24 11:25 Stool Stool Occult Blood (NAHOMI) - Final Occult Blood Positive D/C Instructions Discharge Diet: No restrictions Meaningful Use Info Meaningful Use Meaningful Use Diagnoses (Choose all that apply): None applicable Ischemic Stroke Statin Dosing Therapy Reference: STATIN DOSE THERAPY REFERENCE: * Patients > 75 years receive moderate or high dose statin therapy. * Patients 75 years or YOUNGER should receive HIGH intensity statin dose unless contraindicated. You will be required to document reason for non-treatment if statin daily dose does not meet guidelines. HIGH DOSE STATIN THERAPY DAILY Atorvastatin > than or = to 40 mg Rosuvastatin > than or = to 20 mg Amlodipine + Atorvastatin > than or = to 2.5/40 mg Ezetimibe + Simvastatin 10/80 mg Simvastatin 80mg Discharge Plan Admission Admit Date/Time: 03/23/24 12:30 Primary Reason for Your Visit: Debility Attending Provider: Mason Loza Primary Care Provider: Geovani Mancia Consulting Providers: Eveline Underwood; Kirk Thomas Discharge Orders/Prescriptions Prescriptions: New multivitamin [Daily Multi-Vitamin] Tablet 1 tab PO DAILY Qty: 30 0RF Continued albuterol sulfate [Proventil HFA] 90 mcg/actuation HFA aerosol inhaler 2 puff inhalation Q6H PRN (Reason: COPD) ondansetron 8 mg tablet,disintegrating 8 mg PO Q12H atorvastatin 80 mg tablet 80 mg PO QHS Patient Comments: TAKE 1 TABLET BY MOUTH EVERY DAY perphenazine 2 mg tablet 2 mg PO QHS Patient Comments: TAKE 1 TABLET BY MOUTH EVERY DAY ipratropium-albuterol 3 ML solution for nebulization 3 ml inhalation Q6H PRN PRN (Reason: shortnes of breath) levetiracetam [Keppra] 500 MG tablet 1,000 mg PO BID omeprazole 40 MG capsule,delayed release(DR/EC) 40 mg PO BID amlodipine 10 MG tablet 10 mg PO DAILY ergocalciferol (vitamin D2) 50,000 UNIT capsule 50,000 unit PO MO Rx Instructions: Take every monday escitalopram oxalate [Lexapro] 20 MG tablet 20 mg PO DAILY cyanocobalamin (vitamin B-12) 1,000 MCG capsule 1,000 mcg PO DAILY budesonide-formoterol [Symbicort] 1 INHALER inhaler 2 puff inhalation BID alprazolam [Xanax] 1 MG tablet 1 mg PO QHS PRN (Reason: anxiety ) lisinopril 10 mg tablet 20 mg PO BID ondansetron HCl 4 mg tablet 4 mg PO BID PRN PRN (Reason: nausea/vomiting) carbamazepine 200 mg tablet extended release 12 hr 400 mg PO BID metoprolol succinate 25 mg tablet extended release 24 hr 25 mg PO DAILY duloxetine 30 mg capsule,delayed release(DR/EC) 30 mg PO BID Spiriva Respimat 2.5 mcg/actuation mist 2 puff inhalation QDAY Qty: 1 6RF Rx Instructions: administer at approximately the same time(s) each day Discontinued metoprolol tartrate 25 mg Tablet 25 mg PO QHS nystatin [Klayesta] 100,000 unit/gram powder 1 applic topical TID PRN (Reason: rash) Patient Comments: APPLIED TO LUIS M-AREA/GROIN Referrals / Follow Up: Geovani Mancia MD [Primary Care Provider] - Within 2 Weeks Disposition Disposition (needs filled in before D/C Order can be placed): Home Health Service Charges/Coding Visit Charges Inpatient E&M: 75042 Disch Hosp >30min
[2024-03-26 13:25] VITALS: BP 142/62; PULSE 13; RESP 16; TEMP 36.3; O2SAT 99
--- NOTE | 2024-03-26 15:15 | CASEMGMT ---
All HH agencies have declined the pt. MARY CM to pt room at this time. Pt states that she is OK with this and that she feels safe discharging home today with the help of her . Pt states that she is not going to go to OP therapy. Pt denies further needs. Pt brought in the pt portable tank for transition home. Pt denies further questions or concerns.
== END 2024-03-26 16:06 | disposition home or self-care (01) | DRG 775 ==
LOC: ED 09:07 → PCU 12:43
PROVIDERS: Internal Medicine Gastroenterology; Admitting Provider Internal Medicine; Emergency Provider Student in an Organized Health Care Education/Training Program; PCP Family Medicine
PROC: 0DJ08ZZ Inspection of Upper Intestinal Tract, Via Natural or Artificial Opening Endoscopic (ICD-10-PCS; CPT 43235; principal; 2024-03-25 11:55)
DX: F10.230 Alcohol dependence with withdrawal, uncomplicated (principal); I85.11 Secondary esophageal varices with bleeding; E43 Unspecified severe protein-calorie malnutrition; J96.11 Chronic respiratory failure with hypoxia; I85.00 Esophageal varices without bleeding; K70.31 Alcoholic cirrhosis of liver with ascites; K76.6 Portal hypertension; J44.9 Chronic obstructive pulmonary disease, unspecified; F31.9 Bipolar disorder, unspecified; G40.909 Epilepsy, unspecified, not intractable, without status epilepticus; F10.288 Alcohol dependence with other alcohol-induced disorder; E87.1 Hypo-osmolality and hyponatremia; F17.210 Nicotine dependence, cigarettes, uncomplicated; E78.00 Pure hypercholesterolemia, unspecified; K31.89 Other diseases of stomach and duodenum; E86.1 Hypovolemia; F41.9 Anxiety disorder, unspecified; Z99.81 Dependence on supplemental oxygen; Y90.0 Blood alcohol level of less than 20 mg/100 ml; R53.81 Other malaise; R29.6 Repeated falls; Z68.25 Body mass index [BMI] 25.0-25.9, adult; Z79.51 Long term (current) use of inhaled steroids; Z79.899 Other long term (current) drug therapy
CPT/HCPCS: 36415; 70450; 71045; 72125; 74177; 80048; 80053; 80076; 80307; 81001; 81025; 82077; 82140; 82274; 82436; 82550; 82570; 83690; 83735; 83930; 83935; 84100; 84133; 84156; 84295; 84300; 84484; 85014; 85018; 85025; 85610; 88305; 88342; 93005; 94640; 97162; 97166; 99284; Q9967; A4216; J2405; J2916

== ENCOUNTER 2024-04-18 02:17 | Observation (INO) | payer MEDICAID, SELFPAY ==
[2024-04-18] VITALS (20 sets, daily range): BP systolic 110–188; BP diastolic 60–119; PULSE 70–85; RESP 16–24; TEMP 36.7–36.9; O2SAT 95–100; BMI 26.1
--- NOTE | 2024-04-18 02:24 | RAD_ITS ---
EXAM: XR PELVIS, 1 OR 2 VIEWS CLINICAL INDICATION: pain pain TECHNIQUE: Frontal view of the pelvis. COMPARISON: Chest x-ray 04/18/2024. FINDINGS: BONES/JOINTS: There are postsurgical changes in the lumbar spine. No displaced fracture. No destructive or sclerotic lesions. Note that overlapping bowel shadows may however obscure fine detail. Sacroiliac joints are unremarkable. No widening of the pubic symphysis. The articular structures are unremarkable. SOFT TISSUES: Unremarkable. No soft tissue swelling or gas. RAD/Pelvis 1 or 2 Views IMPRESSION: No acute findings in the pelvis. Electronically Signed: Zachary Francis MD at 3:41 EDT Reading Location ID and State: [facility] / [place] , Service support ,
--- NOTE | 2024-04-18 02:24 | RAD_ITS ---
EXAM: XR LEFT SHOULDER COMPLETE, 2 OR MORE VIEWS CLINICAL INDICATION: pain pain TECHNIQUE: Two or more views of the left shoulder. COMPARISON: No relevant prior studies available. FINDINGS: BONES/JOINTS: Unremarkable. No acute fracture. No subluxation. Normal alignment. Preservation of the joint space. No sclerotic or destructive changes observed. SOFT TISSUES: Unremarkable. No soft tissue swelling or gas. No radiopaque foreign body. RAD/Shoulder min 2 Views IMPRESSION: No demonstrated fracture, dislocation, or destructive osseous lesion. Electronically Signed: Zachary Francis MD at 3:38 EDT Reading Location ID and State: [facility] / [place] , Service support ,
--- NOTE | 2024-04-18 02:24 | RAD_ITS ---
EXAM: XR CHEST, 1 VIEW CLINICAL INDICATION: sob sob TECHNIQUE: Frontal view of the chest. COMPARISON: Chest x-ray 03/23/2024. FINDINGS: LUNGS AND PLEURAL SPACES: Unremarkable. No consolidation or edema. No pneumothorax. No effusion. HEART: Unremarkable. Cardiac silhouette not enlarged. MEDIASTINUM: Central airways and mediastinal contour are unremarkable. BONES/JOINTS: There are postsurgical changes in the cervical spine. No acute fracture. SOFT TISSUES: Unremarkable. VASCULATURE: There is atherosclerotic calcification of the aortic arch. RAD/Chest 1 View (Portable) IMPRESSION: No acute findings in the chest. Electronically Signed: Zachary Francis MD at 3:45 EDT Reading Location ID and State: [facility] / [place] , Service support ,
[2024-04-18] MEDS: Ipratropium/Albuterol Sulfate 3 ML AMPUL.NEB INHALATION ×2 (02:31→20:44)
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
--- NOTE | 2024-04-18 12:00 | CM.ED ---
Social Work Received retirement facility as generated via [facility] for patient's geographical region and insurance network. This field underwriter noted that patient does have care source insurance, which will require prior authorization before patient can be admitted into a nursing facility. Patient is also going to require a PASRR screen for nursing facility admission, due to patient's status in the emergency department and admitted to observation status. Met with patient, [facility] [employer] Silvia Cleveland, and patient's son Prem for continued discussion about aftercare planning. Patient gave permission for discussion to include the patient's son. This field underwriter presented nursing facility list to consider, and patient immediately voiced that he is not willing to go to a nursing facility, only if patient's comes along. Much discussion ensued about concerns regarding patient's healthcare needs, assistance needed for basic living, and reports that the call home is currently not fit for habitation (without some work being done). Social workers and patient's son discussed with patient in a gentle way, attempting to help support patient having choice in controlling her decision making, the need for safe discharge planning. This field underwriter let patient know that if patient does not want to go to a nursing facility, this would be okay, but that would anticipate patient with discharge from the emergency department and discharge destination would either be to a hotel or to the homeless fpc. Discussed with need to secure medical equipment and prescriptions for the patient as well. Son presented as supportive to the patient, empowering the patient to make her own decision, while at the same time presenting effects and safety concerns. Son verified there is no family ability to take patient into their home at this time. Son also voiced to patient, and tentatively this would be placement until the patient's home can be addressed and fixed up. After much discussion, patient verbally agreed for short-term nursing facility placement. Patient also admits has been falling at home, which would be another safety factor for this patient at a hotel or homeless fpc. Provided patient with choice list, so as to obtain patient's preferences. Patient's [id number] works at the [employer], so this would be the patient's first choice. Next choices, in this order, as chosen by the patient: [facility], [facility], [facility], and then [facility]. Discussed advance directives and patient still agreeable to wanting to complete forms. Spoke with Dr. Robles, that patient is willing to be admitted to a NF, which really appears to be the safest disposition for the patient. Discussed that due to insurance, would need remain at hospital in trying to sort out an accepting facility and insurance authorization. The alternative would be a hotel or homeless fpc, which would barriers to safety. Plan: Nursing facility for care of basic needs, as well as possible therapy in relation to reported falls at home. Handoff to social work on acute floors. -CARMENCITA Vail
--- NOTE | 2024-04-18 14:09 | CASEMGMT ---
Addendum entered by Odalis Francis 04/18/24 16:24: [facility] declined referral. SW updated. Odalis Francis DC Planning Asst. Original Note: Discharge Planning Referral sent to [facility] via [facility]. Odalis Francis DC Planning Asst.
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
--- NOTE | 2024-04-18 15:22 | WOUNDNOTE ---
wound photo: left arm
--- NOTE | 2024-04-18 15:22 | WOUNDNOTE ---
wound photo: right leg
--- NOTE | 2024-04-18 15:40 | CM.ED ---
Social Work Received call from Hussain at [facility] ([phone]) checking on this patient, as Hussain was notified by someone in the community about this patient and concerns about being in the home. Updated Hussain that patient has currently agreed to a NF placement and this is being worked on. Hussain asks to be notified of discharge disposition. -CARMENCITA Vail, BLANKET WEAVER
[2024-04-18] MEDS: Acetaminophen 325 MG Tablet 650 MG PO ×2 (15:48→22:25)
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
--- NOTE | 2024-04-18 16:28 | CASEMGMT ---
Addendum entered by Odalis Francis 04/19/24 08:56: [facility] declined d/t no bed availability. Odalis Francis DC Planning Asst. Original Note: Discharge Planning Referral sent to [facility]. Odalis Francis DC Planning Asst.
--- NOTE | 2024-04-18 18:04 | CASEMGMT ---
ADVANCE DIRECTIVE Met with patient, along with JIAN Cleveland, for completion of advance directives. Educated patient to [facility] and Living Will. Offered patient opportunity to ask questions, answering all of patient's questions asked (such as can patient revoke or change advance directives in the future). Allowed patient opportunity to reflect on decision making of order for the power of university demonstrator. Copy of completed advance directives placed on the chart, as well as copies made for patient. [facility] in order: Daughter Shonda Alas, Son, Prem Ha, , Alec Ha, -CARMENCITA Vail
--- NOTE | 2024-04-18 18:14 | CASEMGMT ---
Social Work Called and left message for hospital Licensed Final Expense Agents Ray to meet with patient tomorrow. During SW conversation with patient, this speech writer offered visit. Patient reflective about life, meaning of events, and her silvia. When visit offered to patient, patient welcomed opportunity to meet with the Licensed Final Expense Agents. Patient shared that her son Prem preaches at [facility]. Reviewed with patient that referrals are being made to nursing facilities. PASRR screen started in the [employer] system. Plan: SW to follow. Working to find an accepting NF facility. -CARMENCITA Vail
[2024-04-18] MEDS: DULoxetine Hcl 30 MG Capsule PO (20:17)
[2024-04-18] MEDS: ALPRAZolam 0.5 MG Tablet 1 MG PO (20:17)
[2024-04-18] MEDS: Atorvastatin Calcium 80 MG Tablet PO (20:18)
[2024-04-18] MEDS: Ondansetron 8 MG Tablet PO (20:18)
[2024-04-18] MEDS: levETIRAcetam 1,000 MG Tablet 1000 MG PO (20:18)
[2024-04-18] MEDS: Lisinopril 20 MG Tablet PO (20:18)
[2024-04-18] MEDS: carBAMazepine 200 MG CPMP.12HR 400 MG PO (20:19)
[2024-04-18] MEDS: Pantoprazole Sodium 40 MG Tablet PO (20:19)
[2024-04-18] MEDS: Metoprolol(XL)Succ 25 MG Tablet PO (20:20)
[2024-04-18] MEDS: Budesonide Respules 0.5 MG/2 ML AMPUL.NEB. INHALATION (20:44)
[2024-04-19] VITALS (12 sets, daily range): BP systolic 145–178; BP diastolic 66–81; PULSE 75–86; RESP 16–24; TEMP 36.5–36.7; O2SAT 89–99
[2024-04-19] MEDS: amLODIPine 10 MG Tablet PO (05:13)
[2024-04-19] MEDS: Acetaminophen 325 MG Tablet 650 MG PO ×3 (05:14→20:12)
[2024-04-19] MEDS: Ipratropium/Albuterol Sulfate 3 ML AMPUL.NEB INHALATION ×3 (05:21→19:15)
[2024-04-19] MEDS: Budesonide Respules 0.5 MG/2 ML AMPUL.NEB. INHALATION ×2 (07:18→19:16)
[2024-04-19] MEDS: Ondansetron 8 MG Tablet PO ×2 (07:23→20:07)
[2024-04-19] MEDS: DULoxetine Hcl 30 MG Capsule PO ×2 (07:23→20:07)
[2024-04-19] MEDS: Lisinopril 20 MG Tablet PO ×2 (07:23→20:09)
[2024-04-19] MEDS: levETIRAcetam 1,000 MG Tablet 1000 MG PO ×2 (07:23→20:07)
[2024-04-19] MEDS: Pantoprazole Sodium 40 MG Tablet PO ×2 (07:23→20:09)
[2024-04-19] MEDS: Multivitamins,Therapeutic Tablet 1 TABLET PO (07:23)
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
[2024-04-19] MEDS: carBAMazepine 200 MG CPMP.12HR 400 MG PO ×2 (07:24→20:08)
[2024-04-19] MEDS: Cyanocobalamin 500 MCG Tablet 1000 MCG PO (07:24)
[2024-04-19] MEDS: Menthol/Lanolin/Calamine/Znox 113 GM Tube 1 APPLIC TOPICAL ×2 (07:24→20:17)
--- NOTE | 2024-04-19 08:56 | CASEMGMT ---
Addendum entered by Odalis Francis 04/19/24 09:20: [facility] accepted. SW updated. Odalis Francis DC Planning Asst. Original Note: Discharge Planning Referral sent to [facility] via [facility]. Odalis Francis DC Planning Asst.
[2024-04-19 09:13] LABS: Anion Gap 4 (5-15); BUN 4 mg/dL (7-18); BUN/Creat Ratio 11.6 RATIO (10-20); Calcium,Total 8.6 mg/dL (8.5-10.1); Chloride 85 mmol/L (98-107); Creatinine, Serum 0.34 mg/dL (0.55-1.02); EST Glomerular Filtration Rate 205 mL/min (>60); Est Glom Filt Rate - Afr Amer 247 mL/min (>60); Estimated Creatinine Clearance 141.49 ml/min; Glucose 95 mg/dL (74-106); Potassium 2.7 mmol/L (3.5-5.1); Sodium Level 128 mmol/L (136-145)
[2024-04-19] MEDS: Potassium Chloride Oral Tablet 20 MEQ 60 MEQ PO (10:03)
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
[2024-04-19 11:21] LABS: Anion Gap 7 (5-15); BUN 4 mg/dL (7-18); BUN/Creat Ratio 8.7 RATIO (10-20); Calcium,Total 8.4 mg/dL (8.5-10.1); Chloride 85 mmol/L (98-107); Creatinine, Serum 0.46 mg/dL (0.55-1.02); EST Glomerular Filtration Rate 146 mL/min (>60); Est Glom Filt Rate - Afr Amer 177 mL/min (>60); Estimated Creatinine Clearance 104.58 ml/min; Glucose 109 mg/dL (74-106); Magnesium 1.4 mg/dL (1.6-2.6); Potassium 2.8 mmol/L (3.5-5.1); Sodium Level 128 mmol/L (136-145)
[2024-04-19] MEDS: Magnesium Sulfate 2 GM in Dextrose 5%-Water (100mL Bag) 100 ML IV (15:15)
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
[2024-04-19] MEDS: ALPRAZolam 0.5 MG Tablet 1 MG PO (20:06)
[2024-04-19] MEDS: Atorvastatin Calcium 80 MG Tablet PO (20:08)
[2024-04-19] MEDS: 0.9% Saline Lock 10 ML Syringe IV (20:11)
[2024-04-20] VITALS (14 sets, daily range): BP systolic 132–170; BP diastolic 61–82; PULSE 74–100; RESP 18–23; TEMP 36.8–37.2; O2SAT 96–100
[2024-04-20] MEDS: amLODIPine 10 MG Tablet PO (04:27)
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
[2024-04-20] MEDS: Budesonide Respules 0.5 MG/2 ML AMPUL.NEB. INHALATION ×2 (07:45→19:41)
[2024-04-20] MEDS: Ipratropium/Albuterol Sulfate 3 ML AMPUL.NEB INHALATION ×3 (07:45→19:41)
[2024-04-20 08:46] LABS: Anion Gap 4 (5-15); BUN 4 mg/dL (7-18); BUN/Creat Ratio 12.4 RATIO (10-20); Calcium,Total 8.6 mg/dL (8.5-10.1); Chloride 90 mmol/L (98-107); Creatinine, Serum 0.32 mg/dL (0.55-1.02); EST Glomerular Filtration Rate 221 mL/min (>60); Est Glom Filt Rate - Afr Amer 268 mL/min (>60); Estimated Creatinine Clearance 150.33 ml/min; Glucose 95 mg/dL (74-106); Potassium 3.5 mmol/L (3.5-5.1); Sodium Level 128 mmol/L (136-145)
[2024-04-20] MEDS: Acetaminophen 325 MG Tablet 650 MG PO ×3 (09:13→20:40)
[2024-04-20] MEDS: Cyanocobalamin 500 MCG Tablet 1000 MCG PO (09:14)
[2024-04-20] MEDS: DULoxetine Hcl 30 MG Capsule PO ×2 (09:14→20:38)
[2024-04-20] MEDS: Pantoprazole Sodium 40 MG Tablet PO ×2 (09:14→20:39)
[2024-04-20] MEDS: Multivitamins,Therapeutic Tablet 1 TABLET PO (09:14)
[2024-04-20] MEDS: Lisinopril 20 MG Tablet PO ×2 (09:14→20:37)
[2024-04-20] MEDS: Ondansetron 8 MG Tablet PO ×2 (09:15→20:39)
[2024-04-20] MEDS: levETIRAcetam 1,000 MG Tablet 1000 MG PO ×2 (09:15→20:39)
[2024-04-20] MEDS: carBAMazepine 200 MG CPMP.12HR 400 MG PO ×2 (09:16→20:38)
[2024-04-20] MEDS: Menthol/Lanolin/Calamine/Znox 113 GM Tube 1 APPLIC TOPICAL ×2 (09:17→20:37)
[2024-04-20] MEDS: Metoprolol(XL)Succ 50 MG Tablet PO (09:21)
[2024-04-20] MEDS: ALPRAZolam 0.5 MG Tablet 1 MG PO (20:39)
[2024-04-20] MEDS: Atorvastatin Calcium 80 MG Tablet PO (21:38)
[2024-04-21] VITALS (9 sets, daily range): BP systolic 134–152; BP diastolic 68–76; PULSE 67–79; RESP 16–20; TEMP 36.7–37.1; O2SAT 92–99
[2024-04-21] MEDS: Acetaminophen 325 MG Tablet 650 MG PO ×3 (04:52→20:31)
[2024-04-21] MEDS: Ipratropium/Albuterol Sulfate 3 ML AMPUL.NEB INHALATION ×2 (06:30→19:44)
[2024-04-21] MEDS: Budesonide Respules 0.5 MG/2 ML AMPUL.NEB. INHALATION ×2 (06:30→19:44)
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
[2024-04-21] MEDS: Cyanocobalamin 500 MCG Tablet 1000 MCG PO (09:18)
[2024-04-21] MEDS: Ondansetron 8 MG Tablet PO ×2 (09:19→20:54)
[2024-04-21] MEDS: Multivitamins,Therapeutic Tablet 1 TABLET PO (09:19)
[2024-04-21] MEDS: Menthol/Lanolin/Calamine/Znox 113 GM Tube 1 APPLIC TOPICAL ×2 (09:19→20:55)
[2024-04-21] MEDS: DULoxetine Hcl 30 MG Capsule PO ×2 (09:19→20:52)
[2024-04-21] MEDS: carBAMazepine 200 MG CPMP.12HR 400 MG PO ×2 (09:19→20:54)
[2024-04-21] MEDS: levETIRAcetam 1,000 MG Tablet 1000 MG PO ×2 (09:19→20:54)
[2024-04-21] MEDS: Lisinopril 20 MG Tablet PO ×2 (09:20→20:53)
[2024-04-21] MEDS: Pantoprazole Sodium 40 MG Tablet PO ×2 (09:20→20:56)
[2024-04-21] MEDS: amLODIPine 10 MG Tablet PO (09:20)
[2024-04-21] MEDS: Metoprolol(XL)Succ 50 MG Tablet PO (09:20)
[2024-04-21] MEDS: Bisacodyl 5 MG Tablet 10 MG PO (12:28)
[2024-04-21] MEDS: ALPRAZolam 0.5 MG Tablet 1 MG PO (20:50)
[2024-04-21] MEDS: Atorvastatin Calcium 80 MG Tablet PO (20:53)
[2024-04-22] VITALS (10 sets, daily range): BP systolic 144–167; BP diastolic 67–80; PULSE 69–78; RESP 12–20; TEMP 36.6–37.2; O2SAT 93–100
[2024-04-22] MEDS: Budesonide Respules 0.5 MG/2 ML AMPUL.NEB. INHALATION ×2 (06:40→19:24)
[2024-04-22] MEDS: Ipratropium/Albuterol Sulfate 3 ML AMPUL.NEB INHALATION ×3 (06:40→19:24)
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
[2024-04-22] MEDS: levETIRAcetam 1,000 MG Tablet 1000 MG PO ×2 (08:05→21:30)
[2024-04-22] MEDS: Cyanocobalamin 500 MCG Tablet 1000 MCG PO (08:05)
[2024-04-22] MEDS: Multivitamins,Therapeutic Tablet 1 TABLET PO (08:05)
[2024-04-22] MEDS: Metoprolol(XL)Succ 50 MG Tablet PO (08:05)
[2024-04-22] MEDS: Lisinopril 20 MG Tablet PO ×2 (08:07→21:32)
[2024-04-22] MEDS: Pantoprazole Sodium 40 MG Tablet PO ×2 (08:07→21:32)
[2024-04-22] MEDS: amLODIPine 10 MG Tablet PO (08:08)
[2024-04-22] MEDS: DULoxetine Hcl 30 MG Capsule PO ×2 (08:08→21:30)
[2024-04-22] MEDS: Ondansetron 8 MG Tablet PO ×2 (08:09→21:33)
[2024-04-22] MEDS: Acetaminophen 325 MG Tablet 650 MG PO ×2 (08:11→19:57)
[2024-04-22] MEDS: Menthol/Lanolin/Calamine/Znox 113 GM Tube 1 APPLIC TOPICAL ×2 (08:12→21:29)
[2024-04-22] MEDS: carBAMazepine 200 MG CPMP.12HR 400 MG PO ×2 (08:13→21:31)
[2024-04-22 10:29] LABS: Hematocrit 26.5 % (37-47); Mean Corpuscular Hgb 33.5 pg (27.0-32.0); Mean Corpuscular Volume 98.5 fL (81-99); Mean Platelet Vol. 10.2 fl (6.2-12.0); Platelet Count 158 K/mm3 (150-450); RBC Distribution Width SD 46.4 fl (35.1-43.9); Red Blood Count 2.69 M/mm3 (4.2-5.4); White Blood Count 6.4 K/mm3 (4.4-11.0)
[2024-04-22 10:50] LABS: ALB/GLOB Ratio 0.4 RATIO (0.9-2.4); AST(SGOT) 35 U/L (15-37); Alanine Aminotransfer ALT/SGPT 23 U/L (13-56); Albumin, Serum 2.2 g/dL (3.2-5.0); Alkaline Phosphatase 313 U/L (45-117); Anion Gap 6 (5-15); BUN 4 mg/dL (7-18); BUN/Creat Ratio 8.4 RATIO (10-20); Calcium,Total 8.3 mg/dL (8.5-10.1); Chloride 82 mmol/L (98-107); Creatinine, Serum 0.48 mg/dL (0.55-1.02); EST Glomerular Filtration Rate 140 mL/min (>60); Est Glom Filt Rate - Afr Amer 169 mL/min (>60); Estimated Creatinine Clearance 100.22 ml/min; Globulin 5.5 g/dL (2.2-4.2); Glucose 92 mg/dL (74-106); Magnesium 1.4 mg/dL (1.6-2.6); Potassium 3.7 mmol/L (3.5-5.1); Protein, Total 7.7 g/dL (6.4-8.2); Sodium Level 118 mmol/L (136-145)
--- NOTE | 2024-04-22 11:33 | NURSING ---
PER LAB PT SODIUM RESULT CRITICAL AT 118. NOTIFIED.
[2024-04-22] MEDS: Sodium Cl 3% 500 ML 30 ML IV (11:36)
[2024-04-22 11:53] LABS: Osmolality, Serum 263 mOsm/KG (280-301)
[2024-04-22] MEDS: Magnesium Sulfate 2 GM in Dextrose 5%-Water (100mL Bag) 100 ML IV (12:27)
[2024-04-22] MEDS: Magnesium Chloride 64 MG Delay Rel.Tablet 128 MG PO ×2 (12:28→21:31)
--- NOTE | 2024-04-22 13:31 | CASEMGMT ---
Social Work Checked the [employer] system and both MH and DD reviews are showing as referred. Spoke with Mystique, patient's nurse for today, and [facility] cut plug packer called in to check on patient; will be to hospital later today for a face to face assessment. Plan: [facility], pending [facility] approval and then insurance authorization. SW following. -CARMENCITA Vail
--- NOTE | 2024-04-22 14:02 | CON.PCM.RE_ITS ---
Assessment & Plan Assessment/Plan (1) Hyponatremia: PLAN: She has chronic low-grade hyponatremia with sodium around 128 129 in the setting of cirrhosis. Sodium was around 128 about 2 days ago. Sodium dropped to 118 today. During my interview today, she was noted to be drinking large amounts of water. She had about 800 cc fluid container which she says she has had several continuous than yesterday. Most likely drop in sodium related to polydipsia. Added fluid restriction. She is agreeable. Clinically has some ascites on exam. Trace lower extremity edema. Hold off on salt tablets for now. Monitor labs with fluid restriction alone, HPI Consult Data Date of Consult: 04/22/24 HPI Narrative Reason for Consultation: Hyponatremia. HPI Narrative: FELIX NETTLES, is a 59 F who presents to the hospital with generalized weakness. Nephrology on consultation in view of hyponatremia. She was recently admitted here for similar issues. Known history of alcohol-related cirrhosis. Ascites. Required paracentesis. Sodium on admission was around 128. As of 04/20 sodium was around 128. Sodium dropped to 118 today. There is a moderate amount of ascites. No significant lower extremity edema. Appetite is fair. No breathing problems. Urine output has been okay. [facility] Medical History On home oxygen therapy Easy bruising Post-menopausal Chronic cough Alcohol use disorder Asthma Chronic cholecystitis Wears glasses Alcohol use Depression Anxiety History of steroid therapy High cholesterol Migraine headache Back pain Arthritis Seizures Nausea Gastric reflux Smoker COPD (chronic obstructive pulmonary disease) Shortness of breath on exertion History of pain when walking History of edema Hypertension Fibromyalgia Anemia Acute left ankle fracture Home Medications ?Medication ?Instructions ?Recorded ?Last Taken ?Type alprazolam 1 mg tablet (Xanax) 1 mg PO QHS PRN anxiety 07/30/20 07/29/20 History amlodipine 10 mg tablet 10 mg PO DAILY blood pressure 07/30/20 03/22/24 History atorvastatin 80 mg tablet 80 mg PO QHS cholesterol 07/30/20 03/22/24 History budesonide-formoterol HFA 160 2 puff inhalation BID COPD 07/30/20 03/22/24 History mcg-4.5 mcg/actuation aerosol inhaler (Symbicort) cyanocobalamin (vitamin B-12) 1,000 mcg PO DAILY vitamin 07/30/20 03/22/24 History 1,000 mcg capsule ergocalciferol (vitamin D2) 1,250 50,000 unit PO MO vitamin 07/30/20 03/20/24 History mcg (50,000 unit) capsule ipratropium 0.5 mg-albuterol 3 mg 3 ml inhalation Q6H PRN shortnes 07/30/20 01/02/23 History (2.5 mg base)/3 mL nebulization of breath soln levetiracetam 500 mg tablet 1,000 mg PO BID seizure 07/30/20 03/22/24 History (Keppra) omeprazole 40 mg capsule,delayed 40 mg PO BID GERD 07/30/20 03/22/24 History release perphenazine 2 mg tablet 4 mg PO QHS mental health 07/30/20 03/22/24 History albuterol sulfate 90 mcg/actuation 2 puff inhalation Q6H PRN COPD 06/17/21 Unknown History aerosol inhaler (Proventil HFA) lisinopril 10 mg tablet 20 mg PO BID blood pressure 06/17/21 03/22/24 History tiotropium bromide 2.5 2 puff inhalation QDAY #1 ea 10/04/21 03/22/24 Rx mcg/actuation mist for inhalation (Spiriva Respimat) carbamazepine 200 mg 400 mg PO BID 03/23/24 03/22/24 History tablet,extended release,12 hr duloxetine 30 mg capsule,delayed 30 mg PO BID 03/23/24 03/22/24 History release metoprolol succinate 25 mg 25 mg PO DAILY 03/23/24 03/22/24 History tablet,extended release 24 hr ondansetron HCl 4 mg tablet 4 mg PO BID PRN nausea/vomiting 03/23/24 Unknown History multivitamin (Daily Multi-Vitamin 1 tab PO DAILY #30 tabs 03/26/24 Unknown Rx tablet) calcium carb-ergocalciferol (vit 1 tab PO DAILY 04/18/24 Unknown History D2) 250 mg (625 mg)-125 unit tablet furosemide 20 mg tablet 20 mg PO DAILY 04/18/24 Unknown History nystatin 100,000 unit/gram topical 1 applic topical TID 04/18/24 Unknown History powder spironolactone 25 mg tablet 25 mg PO DAILY 04/18/24 Unknown History Allergy/AdvReac Type Severity Reaction Status Date / Time adhesive Allergy Rash Verified 04/18/24 02:24 cefuroxime (From Ceftin) Allergy Hives Verified 04/18/24 02:24 bupropion (From Wellbutrin) AdvReac SEIZURES Verified 04/18/24 02:24 codeine AdvReac Upset Verified 04/18/24 02:24 Stomach cyclobenzaprine (From AdvReac SEIZURES Verified 04/18/24 02:24 Flexeril) fluoxetine (From Prozac) AdvReac INCREASED Verified 04/18/24 02:24 ANXIETY gabapentin AdvReac INCREASED Verified 04/18/24 02:24 ANXIETY, CONFUSION nicotine (From Nicoderm CQ) AdvReac SEIZURES Verified 04/18/24 02:24 risperidone (From Risperdal) AdvReac SEIZURES Verified 04/18/24 02:24 Surgical History Hx of esophagogastroduodenoscopy Hx laparoscopic cholecystectomy History of esophagogastroduodenoscopy (EGD) Hx of tubal ligation Hx of bilateral cataract extraction History of ankle surgery History of back surgery History of neck surgery History of colonoscopy Social History Smoking Status: Current every day smoker tobacco type: cigarettes ROS ROS Narrative Negative except above Physical Exam Narrative Alert awake oriented x 3 no obvious distress no pallor no icterus no JVD s1s2 no murmurs lungs clear abdomen ascites no edema no cyanosis Lab / Micro Data 04/22/24 10:16 04/22/24 10:16 Labs: Laboratory Results - last 24 hr 04/22/24 10:16: WBC 6.4, RBC 2.69 L, Hgb 9.0 L, Hct 26.5 L, MCV 98.5, MCH 33.5 H , MCHC 34.0, RDW Std Deviation 46.4 H, RDW Coeff of Sanju 13.0, Plt Count 158, MPV 10.2, Sodium 118 L*, Potassium 3.7, Chloride 82 L, Carbon Dioxide 30.0, Anion Gap 6, BUN 4 L, Creatinine 0.48 L, Estim Creat Clear Calc 100.22, Est GFR (MDRD) Af Amer 169, Est GFR (MDRD) Non-Af 140, BUN/Creatinine Ratio 8.4 L, Glucose 92, Serum Osmolality 263 L, Calcium 8.3 L, Phosphorus 3.0, Magnesium 1.4 L, Total Bilirubin 0.40, AST 35, ALT 23, Alkaline Phosphatase 313 H, Total Protein 7.7, A lbumin 2.2 L, Globulin 5.5 H, Albumin/Globulin Ratio 0.4 L
[2024-04-22 14:21] LABS: Anion Gap 6 (5-15); BUN 5 mg/dL (7-18); BUN/Creat Ratio 11.3 RATIO (10-20); Calcium,Total 8.2 mg/dL (8.5-10.1); Chloride 83 mmol/L (98-107); Creatinine, Serum 0.44 mg/dL (0.55-1.02); EST Glomerular Filtration Rate 154 mL/min (>60); Est Glom Filt Rate - Afr Amer 186 mL/min (>60); Estimated Creatinine Clearance 109.33 ml/min; Glucose 115 mg/dL (74-106); Potassium 3.6 mmol/L (3.5-5.1); Sodium Level 118 mmol/L (136-145)
[2024-04-22 14:27] LABS: Urine Sodium 41 mmol/L (Not Establ.)
[2024-04-22 14:38] LABS: Osmolality, Urine 213 mOsm/KG
[2024-04-22 18:11] LABS: Anion Gap 8 (5-15); BUN 6 mg/dL (7-18); Calcium,Total 8.2 mg/dL (8.5-10.1); Chloride 86 mmol/L (98-107); Creatinine, Serum 0.35 mg/dL (0.55-1.02); EST Glomerular Filtration Rate 199 mL/min (>60); Est Glom Filt Rate - Afr Amer 241 mL/min (>60); Estimated Creatinine Clearance 137.44 ml/min; Glucose 107 mg/dL (74-106); Potassium 3.7 mmol/L (3.5-5.1); Sodium Level 121 mmol/L (136-145)
[2024-04-22] MEDS: Atorvastatin Calcium 80 MG Tablet PO (21:32)
[2024-04-22 22:10] LABS: Anion Gap 5 (5-15); BUN 5 mg/dL (7-18); BUN/Creat Ratio 13.5 RATIO (10-20); Calcium,Total 8.2 mg/dL (8.5-10.1); Chloride 89 mmol/L (98-107); Creatinine, Serum 0.37 mg/dL (0.55-1.02); EST Glomerular Filtration Rate 189 mL/min (>60); Est Glom Filt Rate - Afr Amer 228 mL/min (>60); Estimated Creatinine Clearance 130.01 ml/min; Glucose 108 mg/dL (74-106); Potassium 3.9 mmol/L (3.5-5.1); Sodium Level 123 mmol/L (136-145)
[2024-04-23] VITALS (9 sets, daily range): BP systolic 142–178; BP diastolic 64–76; PULSE 68–81; RESP 16–18; TEMP 36.6–37.2; O2SAT 95–100
[2024-04-23 02:41] LABS: Anion Gap 5 (5-15); BUN 5 mg/dL (7-18); BUN/Creat Ratio 13.9 RATIO (10-20); Calcium,Total 8.1 mg/dL (8.5-10.1); Chloride 92 mmol/L (98-107); Creatinine, Serum 0.36 mg/dL (0.55-1.02); EST Glomerular Filtration Rate 195 mL/min (>60); Est Glom Filt Rate - Afr Amer 236 mL/min (>60); Estimated Creatinine Clearance 133.63 ml/min; Glucose 100 mg/dL (74-106); Sodium Level 127 mmol/L (136-145)
[2024-04-23 06:47] LABS: Absolute Lymphocyte Count 0.98 X10^3/uL (0.83-4.51); Basophil# 0.03 X10^3/uL; Basophil% 0.6 % (0-1); Eosinophil# 0.12 X10^3/uL; Eosinophils% 2.6 % (0-5); Hematocrit 24.6 % (37-47); Hemoglobin 8.4 g/dL (12.0-15.0); Lymphocyte # 0.98 X10^3/ul (0.83-4.51); Lymphocyte % 21.1 % (19-41); Mean Corp Hgb Conc 34.1 g/dL (32-36); Mean Corpuscular Hgb 34.1 pg (27.0-32.0); Mean Platelet Vol. 10.7 fl (6.2-12.0); Monocyte# 0.51 X10^3/uL; NRBC Flagged by Analyzer 0 % (0-5); Neutrophil # 2.99 X10^3/uL (2.7-7.7); Neutrophil % 64.5 % (47-70); Platelet Count 146 K/mm3 (150-450); RBC Distribution Width CV 13.2 % (11.6-14.6); RBC Distribution Width SD 47.7 fl (35.1-43.9); Red Blood Count 2.46 M/mm3 (4.2-5.4); White Blood Count 4.6 K/mm3 (4.4-11.0)
[2024-04-23 07:24] LABS: Anion Gap 4 (5-15); BUN 5 mg/dL (7-18); BUN/Creat Ratio 13.7 RATIO (10-20); Calcium,Total 8.6 mg/dL (8.5-10.1); Chloride 94 mmol/L (98-107); Creatinine, Serum 0.37 mg/dL (0.55-1.02); EST Glomerular Filtration Rate 191 mL/min (>60); Est Glom Filt Rate - Afr Amer 231 mL/min (>60); Estimated Creatinine Clearance 130.01 ml/min; Glucose 119 mg/dL (74-106); Magnesium 1.7 mg/dL (1.6-2.6); Potassium 3.9 mmol/L (3.5-5.1); Sodium Level 127 mmol/L (136-145)
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
[2024-04-23] MEDS: Budesonide Respules 0.5 MG/2 ML AMPUL.NEB. INHALATION ×2 (07:29→19:43)
[2024-04-23] MEDS: Ipratropium/Albuterol Sulfate 3 ML AMPUL.NEB INHALATION ×3 (07:29→19:43)
[2024-04-23] MEDS: Cyanocobalamin 500 MCG Tablet 1000 MCG PO (08:04)
[2024-04-23] MEDS: Acetaminophen 325 MG Tablet 650 MG PO ×3 (08:04→23:30)
[2024-04-23] MEDS: Pantoprazole Sodium 40 MG Tablet PO ×2 (08:05→22:34)
[2024-04-23] MEDS: Metoprolol(XL)Succ 50 MG Tablet PO (08:05)
[2024-04-23] MEDS: amLODIPine 10 MG Tablet PO (08:05)
[2024-04-23] MEDS: Ondansetron 8 MG Tablet PO ×2 (08:05→22:33)
[2024-04-23] MEDS: Magnesium Chloride 64 MG Delay Rel.Tablet 128 MG PO ×2 (08:05→22:33)
[2024-04-23] MEDS: Lisinopril 20 MG Tablet PO ×2 (08:05→22:33)
[2024-04-23] MEDS: Multivitamins,Therapeutic Tablet 1 TABLET PO (08:05)
[2024-04-23] MEDS: Menthol/Lanolin/Calamine/Znox 113 GM Tube 1 APPLIC TOPICAL ×2 (08:06→22:40)
[2024-04-23] MEDS: levETIRAcetam 1,000 MG Tablet 1000 MG PO ×2 (08:06→22:33)
[2024-04-23] MEDS: DULoxetine Hcl 30 MG Capsule PO ×2 (08:06→22:34)
[2024-04-23] MEDS: carBAMazepine 200 MG CPMP.12HR 400 MG PO ×2 (08:06→22:49)
--- NOTE | 2024-04-23 09:40 | CASEMGMT ---
Social Work A digital sales representative farrah Edwards did come in to see pt on 04/22. Both the [facility] and [facility] further reviews are still listed as referred in the HENS system. SW will continue to follow, waiting for the results so precert can be started to get pt to [facility]. SW let pt know we are just waiting on the results of the further reviews, will let her know as soon as we hear anything. SW explained to pt will be here until we get the results. Pt states understanding. SW will continue to follow. CHA Spears
[2024-04-23] MEDS: Ondansetron ODT 4 MG Tablet PO (11:02)
--- NOTE | 2024-04-23 11:33 | CASEMGMT ---
Discharge Planning [facility] requested updates d/t submitting for precert. Note sent that determinations have not been received and asked if loc was for skilled or intermediate. Awaiting response. Odalis Francis DC Planning Asst.
[2024-04-23] MEDS: oxyCODONE 5 MG Tablet PO ×2 (11:43→20:07)
[2024-04-23] MEDS: Lactulose 20 GM/30 ML UDC PO (12:15)
[2024-04-23] MEDS: Bisacodyl 10 MG Suppository RC (15:25)
[2024-04-23] MEDS: Magnesium Citrate 300 ML PO (15:25)
--- NOTE | 2024-04-23 21:20 | PN.RENAL_ITS ---
Subjective Subjective no new events Objective Data Objective Data Vital Signs: Vital Signs Temp Pulse Resp BP Pulse Ox O2 Del Method O2 Flow Rate 98.9 F 70 18 150/67 H 98 Nasal Cannula 2 04/23/24 19:58 04/23/24 19:58 04/23/24 19:58 04/23/24 19:58 04/23/24 19:58 04/23/24 20:04 04/23/24 20:04 Oxygen Flow Rate (L/min) 2 Oxygen Delivery Method Nasal Cannula Weight: 60.7 kg Body Mass Index (BMI) 26.1 Intake & Output: Intake and Output for Last 24 Hours 04/21/24 04/22/24 04/23/24 23:59 23:59 23:59 Intake Total 1000 / 1300 1181 / 1181 1170 / 1170 Output Total 600 / 600 Balance 1000 / 1300 581 / 581 1170 / 1170 Lab / Micro Data 04/23/24 06:00 04/23/24 06:00 Labs: Laboratory Results - last 24 hr 04/22/24 21:31: Sodium 123 L, Potassium 3.9, Chloride 89 L, Carbon Dioxide 29.0, Anion Gap 5, BUN 5 L, Creatinine 0.37 L, Estim Creat Clear Calc 130.01, Est GFR (MDRD) Af Amer 228, Est GFR (MDRD) Non-Af 189, BUN/Creatinine Ratio 13.5, G lucose 108 H, Calcium 8.2 L 04/23/24 02:00: Sodium 127 L, Potassium 4.0, Chloride 92 L, Carbon Dioxide 30.0, Anion Gap 5, BUN 5 L, Creatinine 0.36 L, Estim Creat Clear Calc 133.63, Est GFR (MDRD) Af Amer 236, Est GFR (MDRD) Non-Af 195, BUN/Creatinine Ratio 13.9, Glucose 100, Calcium 8.1 L 04/23/24 06:00: WBC 4.6, RBC 2.46 L, Hgb 8.4 L, Hct 24.6 L, MCV 100.0 H, MCH 34.1 H, MCHC 34.1, RDW Std Deviation 47.7 H, RDW Coeff of Sanju 13.2, Plt Count 146 L, MPV 10.7, Immature Gran % (Auto) 0.200, Neut % (Auto) 64.5, Lymph % (Auto) 21.1, [place] % (Auto) 11.0 H, Eos % (Auto) 2.6, Baso % (Auto) 0.6, Absolute Neuts (auto) 3.0, Absolute Lymphs (auto) 0.98, Nucleated RBC % 0, Sodium 127 L, Potassium 3.9, Chloride 94 L, Carbon Dioxide 29.0, Anion Gap 4 L, BUN 5 L, C reatinine 0.37 L, Estim Creat Clear Calc 130.01, Est GFR (MDRD) Af Amer 231, Est GFR (MDRD) Non-Af 191, BUN/Creatinine Ratio 13.7, Glucose 119 H, Calcium 8.6, Magnesium 1.7 Physical Exam Narrative Alert awake oriented x 3 no obvious distress no pallor no icterus no JVD s1s2 no murmurs lungs clear abdomen ascites no edema no cyanosis Assessment & Plan Assessment/Plan (1) Hyponatremia: PLAN: She has chronic low-grade hyponatremia with sodium around 128 129 in the setting of cirrhosis. Sodium was around 128 about 3 days ago. Sodium dropped to 118. During my interview today, she was noted to be drinking large amounts of water. She had about 800 cc fluid container which she says she has had several. Most likely drop in sodium related to polydipsia. Added fluid restriction. sodium is better today
[2024-04-23] MEDS: Senna/Docusate Sodium 1 Tablet PO (22:33)
[2024-04-23] MEDS: Atorvastatin Calcium 80 MG Tablet PO (22:33)
[2024-04-24] VITALS (10 sets, daily range): BP systolic 117–166; BP diastolic 56–77; PULSE 67–76; RESP 16–18; TEMP 36.5–37.1; O2SAT 93–100
[2024-04-24] MEDS: Acetaminophen 325 MG Tablet 650 MG PO ×2 (05:31→15:13)
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
[2024-04-24] MEDS: Budesonide Respules 0.5 MG/2 ML AMPUL.NEB. INHALATION ×2 (06:45→19:07)
[2024-04-24] MEDS: Ipratropium/Albuterol Sulfate 3 ML AMPUL.NEB INHALATION ×3 (06:45→19:07)
[2024-04-24 06:51] LABS: Absolute Lymphocyte Count 1.18 X10^3/uL (0.83-4.51); Absolute Neutrophil Count 3.4 X10^3/uL (2.0-7.7); Basophil# 0.04 X10^3/uL; Basophil% 0.8 % (0-1); Eosinophil# 0.12 X10^3/uL; Eosinophils% 2.3 % (0-5); Hematocrit 24.8 % (37-47); Hemoglobin 8.2 g/dL (12.0-15.0); Lymphocyte # 1.18 X10^3/ul (0.83-4.51); Lymphocyte % 22.6 % (19-41); Mean Corp Hgb Conc 33.1 g/dL (32-36); Mean Corpuscular Hgb 33.3 pg (27.0-32.0); Mean Corpuscular Volume 100.8 fL (81-99); Mean Platelet Vol. 10.2 fl (6.2-12.0); Monocyte# 0.52 X10^3/uL; Monocyte% 9.9 % (0-10); NRBC Flagged by Analyzer 0 % (0-5); Neutrophil # 3.36 X10^3/uL (2.7-7.7); Neutrophil % 64.2 % (47-70); Platelet Count 161 K/mm3 (150-450); RBC Distribution Width CV 13.5 % (11.6-14.6); RBC Distribution Width SD 49.8 fl (35.1-43.9); Red Blood Count 2.46 M/mm3 (4.2-5.4); White Blood Count 5.2 K/mm3 (4.4-11.0)
[2024-04-24] MEDS: Multivitamins,Therapeutic Tablet 1 TABLET PO (07:28)
[2024-04-24] MEDS: Cyanocobalamin 500 MCG Tablet 1000 MCG PO (07:28)
[2024-04-24] MEDS: levETIRAcetam 1,000 MG Tablet 1000 MG PO ×2 (07:28→21:22)
[2024-04-24] MEDS: Metoprolol(XL)Succ 50 MG Tablet PO (07:29)
[2024-04-24] MEDS: Ondansetron 8 MG Tablet PO ×2 (07:29→21:23)
[2024-04-24] MEDS: Ergocalciferol 1.25 MG (50, 000 UNIT) Capsule PO (07:29)
[2024-04-24] MEDS: Magnesium Chloride 64 MG Delay Rel.Tablet 128 MG PO ×2 (07:29→21:23)
[2024-04-24] MEDS: Senna/Docusate Sodium 1 Tablet PO ×2 (07:30→21:22)
[2024-04-24] MEDS: Lisinopril 20 MG Tablet PO ×2 (07:31→21:22)
[2024-04-24] MEDS: amLODIPine 10 MG Tablet PO (07:31)
[2024-04-24] MEDS: carBAMazepine 200 MG CPMP.12HR 400 MG PO ×2 (07:31→21:23)
[2024-04-24] MEDS: Pantoprazole Sodium 40 MG Tablet PO ×2 (07:32→21:22)
[2024-04-24] MEDS: DULoxetine Hcl 30 MG Capsule PO ×2 (07:32→21:22)
[2024-04-24] MEDS: Menthol/Lanolin/Calamine/Znox 113 GM Tube 1 APPLIC TOPICAL ×2 (07:34→21:25)
[2024-04-24] MEDS: Magnesium Citrate 300 ML PO (07:37)
[2024-04-24 08:15] LABS: Anion Gap 6 (5-15); BUN 5 mg/dL (7-18); BUN/Creat Ratio 14.9 RATIO (10-20); Calcium,Total 8.9 mg/dL (8.5-10.1); Chloride 93 mmol/L (98-107); Creatinine, Serum 0.34 mg/dL (0.55-1.02); EST Glomerular Filtration Rate 212 mL/min (>60); Est Glom Filt Rate - Afr Amer 256 mL/min (>60); Estimated Creatinine Clearance 141.49 ml/min; Glucose 90 mg/dL (74-106); Potassium 4.1 mmol/L (3.5-5.1); Sodium Level 128 mmol/L (136-145)
--- NOTE | 2024-04-24 09:03 | CASEMGMT ---
Discharge Planning Per Vick Maldonado @ [facility], patient has been approved for snf placement. He will load letter and determination in HENs this morning. SW updated. Odalis Francis DC Planning Asst.
--- NOTE | 2024-04-24 09:03 | CASEMGMT ---
Addendum entered by Komal Patel 04/24/24 09:51: Social Work Board of Developmental Disabilities has completed Level II assessment. Awaiting precert from Insurance before pt can be admitted to [facility]. [facility] updated that Level II has been completed. KENZIE Lugo Original Note: Social Work Board of Mental Health has completed Level II assessment and pt has been approved for admission to SNF. Awaiting level II determination from Board of DD. [facility] has accepted and precert has been started. KENZIE Lugo
[2024-04-24] MEDS: oxyCODONE 5 MG Tablet PO ×3 (11:02→21:23)
--- NOTE | 2024-04-24 16:11 | CASEMGMT ---
Social Work SW met with pt and informed that Level II determinations have been completed, however precert with insurance is still pending. Pt is understanding. Green sheet placed on the chart and CC to call the nursing unit if precert is obtained. Plan: [facility], pending precert KENZIE Lugo
[2024-04-24] MEDS: Atorvastatin Calcium 80 MG Tablet PO (21:22)
[2024-04-24] MEDS: ALPRAZolam 0.5 MG Tablet 1 MG PO (22:20)
[2024-04-25] VITALS (8 sets, daily range): BP systolic 124–147; BP diastolic 57–71; PULSE 64–81; RESP 16–20; TEMP 36.6–36.9; O2SAT 93–98
[2024-04-25] MEDS: Ipratropium/Albuterol Sulfate 3 ML AMPUL.NEB INHALATION ×2 (06:47→13:02)
[2024-04-25] MEDS: Budesonide Respules 0.5 MG/2 ML AMPUL.NEB. INHALATION (06:47)
[2024-04-25] MEDS: oxyCODONE 5 MG Tablet PO ×2 (06:59→15:04)
[2024-04-25 07:20] LABS: Absolute Lymphocyte Count 1.34 X10^3/uL (0.83-4.51); Absolute Neutrophil Count 3.4 X10^3/uL (2.0-7.7); Basophil# 0.05 X10^3/uL; Basophil% 0.9 % (0-1); Eosinophil# 0.11 X10^3/uL; Hematocrit 23.7 % (37-47); Hemoglobin 7.8 g/dL (12.0-15.0); Lymphocyte # 1.34 X10^3/ul (0.83-4.51); Lymphocyte % 23.9 % (19-41); Mean Corp Hgb Conc 32.9 g/dL (32-36); Mean Corpuscular Hgb 33.8 pg (27.0-32.0); Mean Corpuscular Volume 102.6 fL (81-99); Mean Platelet Vol. 10.5 fl (6.2-12.0); Monocyte# 0.65 X10^3/uL; Monocyte% 11.6 % (0-10); NRBC Flagged by Analyzer 0 % (0-5); Neutrophil # 3.43 X10^3/uL (2.7-7.7); Neutrophil % 61.2 % (47-70); Platelet Count 180 K/mm3 (150-450); RBC Distribution Width CV 13.8 % (11.6-14.6); RBC Distribution Width SD 51.5 fl (35.1-43.9); Red Blood Count 2.31 M/mm3 (4.2-5.4); White Blood Count 5.6 K/mm3 (4.4-11.0)
[2024-04-25 07:45] LABS: Anion Gap 6 (5-15); BUN 6 mg/dL (7-18); BUN/Creat Ratio 19.4 RATIO (10-20); Calcium,Total 8.6 mg/dL (8.5-10.1); Chloride 94 mmol/L (98-107); Creatinine, Serum 0.31 mg/dL (0.55-1.02); EST Glomerular Filtration Rate 232 mL/min (>60); Est Glom Filt Rate - Afr Amer 281 mL/min (>60); Estimated Creatinine Clearance 155.18 ml/min; Glucose 91 mg/dL (74-106); Potassium 4.5 mmol/L (3.5-5.1); Sodium Level 128 mmol/L (136-145)
[2024-04-25] MEDS: Cyanocobalamin 500 MCG Tablet 1000 MCG PO (08:10)
[2024-04-25] MEDS: Magnesium Chloride 64 MG Delay Rel.Tablet 128 MG PO (08:10)
[2024-04-25] MEDS: Pantoprazole Sodium 40 MG Tablet PO (08:10)
[2024-04-25] MEDS: Lisinopril 20 MG Tablet PO (08:10)
[2024-04-25] MEDS: amLODIPine 10 MG Tablet PO (08:11)
[2024-04-25] MEDS: carBAMazepine 200 MG CPMP.12HR 400 MG PO (08:11)
[2024-04-25] MEDS: levETIRAcetam 1,000 MG Tablet 1000 MG PO (08:11)
[2024-04-25] MEDS: DULoxetine Hcl 30 MG Capsule PO (08:11)
[2024-04-25] MEDS: Senna/Docusate Sodium 1 Tablet PO (08:11)
[2024-04-25] MEDS: Metoprolol(XL)Succ 50 MG Tablet PO (08:12)
[2024-04-25] MEDS: Multivitamins,Therapeutic Tablet 1 TABLET PO (08:12)
[2024-04-25] MEDS: Ondansetron 8 MG Tablet PO (08:13)
[2024-04-25] MEDS: Menthol/Lanolin/Calamine/Znox 113 GM Tube 1 APPLIC TOPICAL (08:14)
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
[2024-04-25] MEDS: Acetaminophen 325 MG Tablet 650 MG PO (10:18)
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
--- NOTE | 2024-04-26 10:25 | CASEMGMT ---
Social Work Direction Psychology Instructor Rebekah Epperson notified of pt dc to [facility] on 04/25. DC summary faxed. KENZIE Lugo
== END 2024-04-25 17:59 | disposition skilled nursing facility (03) ==
LOC: ED 03:49 → MS3 11:43
PROVIDERS: Internal Medicine; Emergency Provider Emergency Medicine; PCP Family Medicine; Visit Provider Internal Medicine
DX: T59.811A Toxic effect of smoke, accidental (unintentional), initial encounter (principal); K74.60 Unspecified cirrhosis of liver; F31.9 Bipolar disorder, unspecified; J44.9 Chronic obstructive pulmonary disease, unspecified; G40.909 Epilepsy, unspecified, not intractable, without status epilepticus; E87.1 Hypo-osmolality and hyponatremia; Z79.51 Long term (current) use of inhaled steroids; M25.512 Pain in left shoulder; Z59.00 Homelessness unspecified; E78.00 Pure hypercholesterolemia, unspecified; Z99.81 Dependence on supplemental oxygen; G43.909 Migraine, unspecified, not intractable, without status migrainosus; F17.210 Nicotine dependence, cigarettes, uncomplicated; I10 Essential (primary) hypertension; R18.8 Other ascites; E87.6 Hypokalemia; M79.7 Fibromyalgia; Z79.899 Other long term (current) drug therapy; X08.8XXA Exposure to other specified smoke, fire and flames, initial encounter; Y92.009 Unspecified place in unspecified non-institutional (private) residence as the place of occurrence of the external cause; K59.00 Constipation, unspecified; D63.8 Anemia in other chronic diseases classified elsewhere
CPT/HCPCS: 36415; 71045; 72170; 73030; 80048; 80053; 83735; 83930; 83935; 84100; 84300; 85025; 85027; 94640; 97110; 97116; 97150; 97162; 97166; 97530; 97535; 99221; 99283; A4216; G0378

== ENCOUNTER → 2024-04-26 | Outpatient (REF) | payer MEDICAID, SELFPAY ==
[2024-04-26 09:11] LABS: Absolute Lymphocyte Count 1.46 X10^3/uL (0.83-4.51); Basophil# 0.05 X10^3/uL; Basophil% 0.9 % (0-1); Eosinophil# 0.18 X10^3/uL; Eosinophils% 3.4 % (0-5); Hematocrit 26.5 % (37-47); Hemoglobin 8.9 g/dL (12.0-15.0); Lymphocyte # 1.46 X10^3/ul (0.83-4.51); Lymphocyte % 27.4 % (19-41); Mean Corp Hgb Conc 33.6 g/dL (32-36); Mean Corpuscular Hgb 34.8 pg (27.0-32.0); Mean Corpuscular Volume 103.5 fL (81-99); Mean Platelet Vol. 10.7 fl (6.2-12.0); Monocyte# 0.67 X10^3/uL; Monocyte% 12.6 % (0-10); NRBC Flagged by Analyzer 0 % (0-5); Neutrophil # 2.96 X10^3/uL (2.7-7.7); Neutrophil % 55.5 % (47-70); Platelet Count 189 K/mm3 (150-450); RBC Distribution Width CV 13.9 % (11.6-14.6); Red Blood Count 2.56 M/mm3 (4.2-5.4); White Blood Count 5.3 K/mm3 (4.4-11.0)
[2024-04-26 10:28] LABS: Anion Gap 6 (5-15); BUN 6 mg/dL (7-18); BUN/Creat Ratio 14.9 RATIO (10-20); Calcium,Total 8.7 mg/dL (8.5-10.1); Chloride 94 mmol/L (98-107); EST Glomerular Filtration Rate 170 mL/min (>60); Est Glom Filt Rate - Afr Amer 206 mL/min (>60); Glucose 77 mg/dL (74-106); Potassium 4.3 mmol/L (3.5-5.1); Sodium Level 129 mmol/L (136-145)
== END | disposition home or self-care (01) ==
LOC: OLS.SW 05:23
PROVIDERS: PCP Family Medicine; Referring Provider Family Medicine; Visit Provider Family Medicine
DX: I11.0 Hypertensive heart disease with heart failure (principal); I50.9 Heart failure, unspecified; Z02.2 Encounter for examination for admission to residential institution
CPT/HCPCS: 36415; 80048; 85025

== ENCOUNTER → 2024-05-08 | Outpatient (REF) | payer MEDICAID, SELFPAY ==
[2024-05-08 08:16] LABS: Anion Gap 5 (5-15); BUN 9 mg/dL (7-18); BUN/Creat Ratio 21.8 RATIO (10-20); Calcium,Total 8.1 mg/dL (8.5-10.1); Chloride 96 mmol/L (98-107); Creatinine, Serum 0.41 mg/dL (0.55-1.02); EST Glomerular Filtration Rate 167 mL/min (>60); Est Glom Filt Rate - Afr Amer 202 mL/min (>60); Glucose 89 mg/dL (74-106); Potassium 2.9 mmol/L (3.5-5.1); Sodium Level 135 mmol/L (136-145)
== END | disposition home or self-care (01) ==
LOC: OLS.SW 04:00
PROVIDERS: PCP Family Medicine; Referring Provider Family Medicine; Visit Provider Family Medicine
DX: D64.9 Anemia, unspecified (principal); J44.9 Chronic obstructive pulmonary disease, unspecified; E78.5 Hyperlipidemia, unspecified
CPT/HCPCS: 36415; 80048

== ENCOUNTER → 2024-05-14 | Outpatient (CLI) | payer MEDICAID, SELFPAY ==
[2024-05-14 08:08] VITALS: BP 124/62; PULSE 68; RESP 16; O2SAT 95
[2024-05-14] MEDS: Lidocaine 2% (20 ml mdv) 20 ML Vial INFILT (08:11)
[2024-05-14 08:23] VITALS: BP 131/56; PULSE 66; RESP 16; O2SAT 94
[2024-05-14 08:38] VITALS: BP 144/64; PULSE 67; RESP 16; O2SAT 97
--- NOTE | 2024-05-14 14:03 | PRO.PCM_ITS ---
Procedure Report Date of Procedure: 05/14/24 Assessment & Plan Assessment/Plan (1) Ascites: QUALIFIERS: Ascites type: other type Qualified Code(s): R18.8 - Other ascites PLAN: PROCEDURE: Ultrasound guided paracentesis ORDERING PROVIDER: Dr. Crabtree INDICATION: Female, 59 years old. Ascites. PROVIDER: GEORGIANA Patel TECHNIQUE: The risks, benefits, and alternatives to the procedure were explained to the patient. The specific risks of bleeding, infection, and damage to bowel were detailed and accepted. Witnessed informed consent was obtained. The abdomen was ultrasonographically surveyed. An appropriate pocket of fluid was identified in the left lower quadrant. The skin was prepped with chlorhexidine and sterile field established. 2% lidocaine was used for local anesthetic. Using ultrasound guidance, the peritoneal cavity was accessed with a 5-Estonian paracentesis needle/catheter system. The trocar was removed. A total of 6500 ml of clear yellow colored fluid was removed from the peritoneal cavity. The catheter was removed and a sterile dressing was applied. The procedure was well tolerated. IMPRESSION: Successful ultrasound-guided paracentesis with left lower quadrant access site. Procedures Radiology Radiology US Procedures: [id number] Paracentesis
== END | disposition home or self-care (01) ==
PROVIDERS: PCP Family Medicine; Referring Provider Family Medicine; Visit Provider Family Medicine
DX: K74.60 Unspecified cirrhosis of liver (principal)
CPT/HCPCS: 49083

== ENCOUNTER → 2024-05-15 | Outpatient (REF) | payer MEDICAID, SELFPAY ==
[2024-05-15 08:58] LABS: Anion Gap 6 (5-15); BUN 5 mg/dL (7-18); BUN/Creat Ratio 10.5 RATIO (10-20); Calcium,Total 8.6 mg/dL (8.5-10.1); Chloride 96 mmol/L (98-107); Creatinine, Serum 0.48 mg/dL (0.55-1.02); EST Glomerular Filtration Rate 141 mL/min (>60); Est Glom Filt Rate - Afr Amer 171 mL/min (>60); Glucose 83 mg/dL (74-106); Potassium 3.1 mmol/L (3.5-5.1); Sodium Level 135 mmol/L (136-145)
== END | disposition home or self-care (01) ==
LOC: OLS.SW 05:00
PROVIDERS: PCP Family Medicine; Referring Provider Family Medicine; Visit Provider Family Medicine
DX: D64.9 Anemia, unspecified (principal); J44.9 Chronic obstructive pulmonary disease, unspecified; I10 Essential (primary) hypertension; K74.60 Unspecified cirrhosis of liver
CPT/HCPCS: 36415; 80048

== ENCOUNTER → 2024-05-17 | Outpatient (REF) | payer MEDICAID, SELFPAY ==
[2024-05-17 07:41] LABS: Hematocrit 28.1 % (37-47); Hemoglobin 9.2 g/dL (12.0-15.0); Mean Corp Hgb Conc 32.7 g/dL (32-36); Mean Corpuscular Hgb 32.6 pg (27.0-32.0); Mean Corpuscular Volume 99.6 fL (81-99); Mean Platelet Vol. 11.2 fl (6.2-12.0); Platelet Count 206 K/mm3 (150-450); RBC Distribution Width CV 13.3 % (11.6-14.6); RBC Distribution Width SD 48.3 fl (35.1-43.9); Red Blood Count 2.82 M/mm3 (4.2-5.4); White Blood Count 4.1 K/mm3 (4.4-11.0)
[2024-05-17 07:59] LABS: ALB/GLOB Ratio 0.4 RATIO (0.9-2.4); AST(SGOT) 30 U/L (15-37); Alanine Aminotransfer ALT/SGPT 26 U/L (13-56); Albumin, Serum 1.9 g/dL (3.2-5.0); Alkaline Phosphatase 222 U/L (45-117); Anion Gap 2 (5-15); BUN 5 mg/dL (7-18); BUN/Creat Ratio 14.6 RATIO (10-20); Calcium,Total 8.6 mg/dL (8.5-10.1); Chloride 99 mmol/L (98-107); Creatinine, Serum 0.34 mg/dL (0.55-1.02); EST Glomerular Filtration Rate 206 mL/min (>60); Est Glom Filt Rate - Afr Amer 249 mL/min (>60); Globulin 4.3 g/dL (2.2-4.2); Glucose 88 mg/dL (74-106); Potassium 3.4 mmol/L (3.5-5.1); Protein, Total 6.2 g/dL (6.4-8.2); Sodium Level 135 mmol/L (136-145)
[2024-05-17 08:46] LABS: International Normalized Ratio 1.1
== END | disposition home or self-care (01) ==
LOC: OLS.SW 05:00
PROVIDERS: PCP Family Medicine; Visit Provider Family Medicine
DX: J44.9 Chronic obstructive pulmonary disease, unspecified (principal); K74.60 Unspecified cirrhosis of liver
CPT/HCPCS: 36415; 80053; 82140; 85027; 85610

== ENCOUNTER → 2024-05-20 | Outpatient (CLI) | payer MEDICAID, SELFPAY ==
[2024-05-20] MEDS: Lidocaine 2% (20 ml mdv) 20 ML Vial INFILT (10:53)
[2024-05-20 11:24] VITALS: BP 144/58; BP 154/62; PULSE 62; PULSE 63; RESP 18; O2SAT 96; O2SAT 98
[2024-05-20 11:25] VITALS: BP 143/60; PULSE 62; RESP 18; O2SAT 96
--- NOTE | 2024-05-20 13:22 | PCM.OP.PRO ---
Procedure Report Date of Procedure: 05/20/24 Assessment & Plan Assessment/Plan (1) Ascites: QUALIFIERS: Ascites type: other type Qualified Code(s): R18.8 - Other ascites PLAN: PROCEDURE: Ultrasound guided paracentesis ORDERING PROVIDER: Dr. Crabtree INDICATION: Female, 59 years old. Ascites. PROVIDER: GEORGIANA Patel TECHNIQUE: The risks, benefits, and alternatives to the procedure were explained to the patient. The specific risks of bleeding, infection, and damage to bowel were detailed and accepted. Witnessed informed consent was obtained. The abdomen was ultrasonographically surveyed. An appropriate pocket of fluid was identified in the right lower quadrant. The skin was prepped with chlorhexidine and sterile field established. 2% lidocaine was used for local anesthetic. Using ultrasound guidance, the peritoneal cavity was accessed with a 5-Serbian paracentesis needle/catheter system. The trocar was removed. A total of 5100 ml of clear yellow colored fluid was removed from the peritoneal cavity. The catheter was removed and a sterile dressing was applied. The procedure was well tolerated. IMPRESSION: Successful ultrasound-guided paracentesis with right lower quadrant access site. Procedures Radiology Radiology US Procedures: [id number] Paracentesis
== END | disposition home or self-care (01) ==
LOC: US 10:27
PROVIDERS: PCP Family Medicine; Referring Provider Nurse Practitioner Women's Health; Visit Provider Family Medicine
DX: K74.60 Unspecified cirrhosis of liver (principal)
CPT/HCPCS: 49083

== ENCOUNTER → 2024-06-03 | Outpatient (CLI) | payer MEDICAID, SELFPAY ==
[2024-06-03 10:48] VITALS: BP 158/66; PULSE 63; RESP 16; TEMP 36.3; O2SAT 100
[2024-06-03] MEDS: Lidocaine 2% (20 ml mdv) 20 ML Vial INFILT (10:52)
[2024-06-03 11:00] VITALS: BP 168/69; PULSE 71; RESP 16; O2SAT 100
[2024-06-03 11:14] VITALS: BP 168/73; PULSE 67; RESP 16; O2SAT 100
--- NOTE | 2024-06-03 11:26 | PCM.OP.PRO ---
Procedure Report Date of Procedure: 06/03/24 Assessment & Plan Assessment/Plan (1) Ascites: QUALIFIERS: Ascites type: other type Qualified Code(s): R18.8 - Other ascites PLAN: PROCEDURE: Ultrasound guided paracentesis ORDERING PROVIDER: Dr. Crabtree INDICATION: Female, 59 years old. Ascites. PROVIDER: GEORGIANA Patel TECHNIQUE: The risks, benefits, and alternatives to the procedure were explained to the patient. The specific risks of bleeding, infection, and damage to bowel were detailed and accepted. Witnessed informed consent was obtained. The abdomen was ultrasonographically surveyed. An appropriate pocket of fluid was identified in the left lower quadrant. The skin was prepped with chlorhexidine and sterile field established. 2% lidocaine was used for local anesthetic. Using ultrasound guidance, the peritoneal cavity was accessed with a 5-Puerto Rican paracentesis needle/catheter system. The trocar was removed. A total of 4200 ml of clear yellow colored fluid was removed from the peritoneal cavity. The catheter was removed and a sterile dressing was applied. The procedure was well tolerated. IMPRESSION: Successful ultrasound-guided paracentesis with left lower quadrant access site. Procedures Radiology Radiology US Procedures: [id number] Paracentesis
== END | disposition home or self-care (01) ==
PROVIDERS: PCP Family Medicine; Referring Provider Family Medicine; Visit Provider Family Medicine
DX: K74.60 Unspecified cirrhosis of liver (principal)
CPT/HCPCS: 49083

== ENCOUNTER → 2024-06-17 | Outpatient (CLI) | payer MEDICAID, SELFPAY ==
[2024-06-17] MEDS: Lidocaine 2% (20 ml mdv) 20 ML Vial INFILT (09:52)
[2024-06-17 10:25] VITALS: BP 164/70; PULSE 78; RESP 18; O2SAT 97
[2024-06-17 10:26] VITALS: BP 153/65; PULSE 69; RESP 18; O2SAT 100
--- NOTE | 2024-06-17 10:27 | PRO.PCM_ITS ---
Procedure Report Date of Procedure: 06/17/24 Assessment & Plan Assessment/Plan (1) Ascites: QUALIFIERS: Ascites type: other type Qualified Code(s): R18.8 - Other ascites PLAN: PROCEDURE: Ultrasound guided paracentesis ORDERING PROVIDER: Dr. Geovani Mancia INDICATION: Female, 59 years old. Ascites. PROVIDER: GEORGIANA Patel TECHNIQUE: The risks, benefits, and alternatives to the procedure were explained to the patient. The specific risks of bleeding, infection, and damage to bowel were detailed and accepted. Witnessed informed consent was obtained. The abdomen was ultrasonographically surveyed. An appropriate pocket of fluid was identified in the left lower quadrant. The skin was prepped with chlorhexidine and sterile field established. 2% lidocaine was used for local anesthetic. Using ultrasound guidance, the peritoneal cavity was accessed with a 5-Gabonese paracentesis needle/catheter system. The trocar was removed. A total of 2900 ml of clear yellow colored fluid was removed from the peritoneal cavity. The catheter was removed and a sterile dressing was applied. The procedure was well tolerated. IMPRESSION: Successful ultrasound-guided paracentesis with left lower quadrant access site. Procedures Radiology Radiology US Procedures: [id number] Paracentesis
== END | disposition home or self-care (01) ==
LOC: US 09:32
PROVIDERS: PCP Family Medicine; Referring Provider Family Medicine; Visit Provider Family Medicine
DX: K74.60 Unspecified cirrhosis of liver (principal)
CPT/HCPCS: 49083

== ENCOUNTER → 2024-07-02 | Outpatient (CLI) | payer MEDICAID, SELFPAY ==
--- NOTE | 2024-07-02 09:31 | US_ITS ---
STUDY: ABDOMINAL ULTRASOUND - RIGHT UPPER QUADRANT REASON FOR VISIT: Female, 59 years old ASCITES survey. TECHNIQUE: Ultrasound evaluation of the 4 quadrants was performed with real-time and static [place]-scale imaging. TECHNICAL QUALITY: Adequate. COMPARISON: None. FINDINGS: Assessment of the 4 quadrants was obtained for possible paracentesis. Small amount of fluid is seen in the right upper quadrant. Not enough fluid for safe paracentesis. US/Abdomen Limited IMPRESSION: Not enough fluid for a safe paracentesis. Electronically Signed: Dilshad Lozano MD at 14:02 EDT ,
== END | disposition home or self-care (01) ==
PROVIDERS: PCP Family Medicine; Referring Provider Family Medicine; Visit Provider Family Medicine
DX: R18.8 Other ascites (principal)
CPT/HCPCS: 76705

== ENCOUNTER → 2024-07-17 | Outpatient (CLI) | payer MEDICAID, SELFPAY ==
--- NOTE | 2024-07-17 09:50 | US_ITS ---
PROCEDURE: Ultrasound guided paracentesis. DATE OF EXAMINATION: July 17, 2024.. INDICATION: Female, 59 years old. Ascites. PHYSICIAN: Dilshad Lozano M.D. TECHNIQUE: The risks, benefits, and alternatives to the procedure were explained to the patient. The specific risks of bleeding, infection, and damage to bowel were detailed and accepted. Witnessed informed consent was obtained. The abdomen was ultrasonographically surveyed. An appropriate pocket of fluid was identified at the right lower quadrant. The skin were cleaned and prepped in the usual sterile fashion. Using ultrasound guidance, the peritoneal cavity was accessed with a 5-Azeri paracentesis needle/catheter system. The trocar was removed. A total of 4 ml of blood-tinged fluid were removed from the peritoneal cavity. The catheter was removed and a sterile dressing was applied. The procedure was well tolerated. US/Paracentesis with US IMPRESSION: Ultrasound guided paracentesis. Electronically Signed: Dilshad oLzano MD at 10:47 EDT ,
[2024-07-17] MEDS: Lidocaine 2% (20 ml mdv) 20 ML Vial INFILT (10:10)
[2024-07-17 10:24] VITALS: BP 162/69; PULSE 70; RESP 18; TEMP 35.7; O2SAT 100
[2024-07-17 10:26] VITALS: BP 144/59; PULSE 68; RESP 18; O2SAT 100
== END | disposition home or self-care (01) ==
PROVIDERS: PCP Family Medicine; Referring Provider Family Medicine; Visit Provider Family Medicine
DX: R18.8 Other ascites (principal)
CPT/HCPCS: 49083

== ENCOUNTER → 2024-08-07 | Outpatient (CLI) | payer MEDICAID, SELFPAY ==
--- NOTE | 2024-08-07 09:27 | US_ITS ---
INDICATION: ASCITES EXAMINATION: Ultrasound US Abdomen Limited (quadrant) TECHNIQUE: Cheek scale and color doppler imaging was performed of the right upper quadrant. COMPARISON: Prior study dated: 07/02/2024 FINDINGS: Small amount of fluid not enough to safely perform paracentesis. US/Abdomen Limited IMPRESSION: No significant fluid is seen to safely perform paracentesis. Electronically Signed: Andrea Henderson MD at 13:00 EDT ,
== END | disposition home or self-care (01) ==
LOC: US 09:22
PROVIDERS: PCP Family Medicine; Referring Provider Family Medicine; Visit Provider Family Medicine
DX: R18.8 Other ascites (principal)
CPT/HCPCS: 76705

== ENCOUNTER 2025-03-20 17:04 | Inpatient (IN) | payer MEDICAID, SELFPAY ==
[2025-03-20] VITALS (10 sets, daily range): BP systolic 132–162; BP diastolic 49–68; PULSE 85–99; RESP 16–28; TEMP 36.4–38.3; O2SAT 92–95
--- NOTE | 2025-03-20 17:33 | EKG12_ITS ---
Test Reason : SOB Blood Pressure : */* mmHG Vent. Rate : 92 BPM Atrial Rate : 92 BPM P-R Int : 156 ms QRS Dur : 94 ms QT Int : 348 ms P-R-T Axes : 63 36 205 degrees QTcB Int : 430 ms Normal sinus rhythm ST & T wave abnormality, consider inferolateral ischemia Abnormal ECG Confirmed by Luiz Weber ([id number]), editor sound HELADIO MARIN ([id number]) on 03/24/2025 10:40:48 AM Referred By: SELINA/VIVEK Confirmed By: Luiz Weber
[2025-03-20] MEDS: MethylPREDNISolone 125 MG/2 ML Vial IV (17:46)
[2025-03-20] MEDS: Ipratropium/Albuterol Sulfate 3 ML AMPUL.NEB INHALATION ×3 (17:47)
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
[2025-03-20 18:00] LABS: Absolute Neutrophil Count 16.4 X10^3/uL (2.0-7.7); Basophil# 0.04 X10^3/uL; Basophil% 0.2 % (0-1); Eosinophils% 0.5 % (0-5); Hematocrit 23.7 % (37-47); Hemoglobin 7.2 g/dL (12.0-15.0); Lymphocyte % 10.4 % (19-41); Mean Corp Hgb Conc 30.4 g/dL (32-36); Mean Corpuscular Hgb 21.5 pg (27.0-32.0); Mean Corpuscular Volume 70.7 fL (81-99); Mean Platelet Vol. 9.9 fl (6.2-12.0); Monocyte# 1.32 X10^3/uL; Monocyte% 6.6 % (0-10); NRBC Flagged by Analyzer 0.1 % (0-5); Neutrophil # 16.41 X10^3/uL (2.7-7.7); Neutrophil % 81.6 % (47-70); POSITIVE MORPHOLOGY YES; Platelet Count 224 K/mm3 (150-450); RBC Distribution Width CV 20.1 % (11.6-14.6); RBC Distribution Width SD 50.4 fl (35.1-43.9); Red Blood Count 3.35 M/mm3 (4.2-5.4); White Blood Count 20.1 K/mm3 (4.4-11.0)
[2025-03-20 18:05] LABS: Differential Indicated SCAN CRITERIA MET
[2025-03-20 18:10] LABS: International Normalized Ratio 1.3; Prothrombin Time (Protime)PT. 15.9 SECONDS (11.7-14.9)
[2025-03-20 18:11] LABS: Partial Thromboplast Time 42.5 Seconds (24.1-36.2)
[2025-03-20 18:24] LABS: Anisocytosis 2+; Differential Comment SCANNED
[2025-03-20 18:32] LABS: Troponin T High Sensitivity 22 ng/L (<=14)
[2025-03-20 18:35] LABS: Allen Test Positive; Base Excess 12 mmol/L (-2 to +2); Bicarbonate 34.1 mmol/L (22-26); Blood Gas Specimen Type ART; Mode Not entered; O2 Delivery Device Cannula; PO2 58 mmHG (75-100); SITE R Radial; SO2 93 % (95-99); Total Carbon Dioxide 35 mmol/L; pCO2 36.5 mmHg (35-45); pH 7.58 (7.35-7.45)
[2025-03-20 18:38] LABS: ALB/GLOB Ratio 0.7 RATIO (0.9-2.4); AST(SGOT) 49 U/L (<=31); Alanine Aminotransfer ALT/SGPT 21 U/L (<=34); Albumin, Serum 3.3 g/dL (3.4-4.8); Alkaline Phosphatase 163 U/L (35-104); Anion Gap 14 (5-15); BUN 4 mg/dL (4-19); BUN/Creat Ratio 8.6 RATIO (10-20); Calcium,Total 8.2 mg/dL (7.6-11.0); Carbon Dioxide 31.4 mmol/L (21.0-32.0); Chloride 84 mmol/L (98-108); Creatinine, Serum 0.49 mg/dL (0.70-1.20); EST Glomerular Filtration Rate 107 (>60); Globulin 4.6 g/dL (2.2-4.2); Glucose 118 mg/dL (70-99); Lactic Acid 2.4 mmol/L (0.0-2.0); Potassium 2.2 mmol/L (3.3-5.1); Protein, Total 7.9 g/dL (5.9-8.4); Sodium Level 130 mmol/L (133-145); Total Bilirubin 0.72 mg/dL (0.00-1.30)
[2025-03-20] MEDS: 0.9% Normal Saline (500mL Bag) 500 ML 999 ML IV (18:47)
--- NOTE | 2025-03-20 18:47 | RAD_ITS ---
PROCEDURE: CHEST PA AND LATERAL 03/20/2025 REASON FOR EXAM: SOB TECHNIQUE: Frontal and lateral views of the chest. COMPARISON: 04/18/2024. FINDINGS: Hardware: None. Heart: The heart size is normal. Mediastinum: The mediastinal contour is unremarkable. Lungs: Left midlung and basilar consolidative opacities suspicious for pneumonia. Bones: Degenerative changes are identified within the thoracic spine. RAD/Chest PA and Lateral IMPRESSION: Left midlung and basilar consolidative opacities suspicious for pneumonia. Reading Location: [place] [id number]
[2025-03-20 18:52] LABS: Pro- Brain NATRIURETIC PEPTIDE 992 pg/mL (<=900)
[2025-03-20 18:53] LABS: Ammonia 32.4 umol/L (11-51)
[2025-03-20] MEDS: levoFLOXacin IV 750 MG/150 ML BAG 100 MG IV (19:19)
[2025-03-20] MEDS: Acetaminophen 500 MG Tablet 1000 MG PO (20:04)
[2025-03-20 20:07] LABS: Mucous, Urine 0 SEEN /hpf (<or=2+); Red Blood Cells-Urine 0 SEEN /hpf (0-5); White Blood Cells 0 SEEN /hpf (0-5)
[2025-03-20 20:11] LABS: Color, Urine Yellow (Yellow); Glucose, Dipstick Normal (Normal); Ketone-Dipstick Negative (Negative); Leukocyte Esterase-Dipstick 25 /ul (Negative); Nitrite-Dipstick Negative (Negative); Occult Blood-Urine 10 /ul (Negative); Protein-Dipstick 100 mg/dl (Negative); Urine Clarity Clear (Clear); Urine Urobilinogen 8 mg/dl (Normal)
[2025-03-20 20:44] LABS: Troponin T High Sens 2 HR 20 ng/L (<=14)
[2025-03-20] MEDS: Potassium Chloride Oral Tablet 20 MEQ 60 MEQ PO (20:45)
[2025-03-20] MEDS: Potassium Chloride 10mEq/100mL 10 MEQ/100 ML IV.SOLN. 100 MEQ IV BOLUS ×2 (20:56→22:53)
[2025-03-20 21:05] LABS: Magnesium 1.1 mg/dL (1.5-2.2)
[2025-03-20 21:11] LABS: Urine Bilirubin Dipstick 1 mg/dL (Negative)
[2025-03-20] MEDS: Albuterol 2.5 MG/3 ML VIAL.NEB. INHALATION (21:31)
[2025-03-20] MEDS: Magnesium Sulfate 4gm/100mL 4 GM/100 ML IV.SOLN. IV (21:45)
[2025-03-20 21:47] LABS: Ferritin 36 ng/mL (22-378); Iron 12 ug/dL (50-170); Iron Binding Capacity,Total 339 ug/dL (250-450); Iron Binding Capacity,Unsat 327 ug/dL (228-428); Phosphorus 2.1 mg/dL (2.7-4.5)
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
[2025-03-20 21:55] LABS: Reflex Lactate? Y
[2025-03-20 22:43] LABS: Troponin T High Sens 4 HR 16 ng/L (<=14)
[2025-03-20 22:57] LABS: Bacteria RARE /hpf (None Seen); Squamous Epithelial Cells - UA 0-5 SEEN /hpf (5-10)
[2025-03-21] VITALS (18 sets, daily range): BP systolic 104–149; BP diastolic 48–76; PULSE 73–90; RESP 18–22; TEMP 36.6–37; O2SAT 92–98; BMI 30.8
[2025-03-21] MEDS: Potassium Chloride 10mEq/100mL 10 MEQ/100 ML IV.SOLN. 100 MEQ IV BOLUS ×2 (00:26→01:30)
[2025-03-21 00:51] LABS: Lactic Acid 3.8 mmol/L (0.0-2.0)
[2025-03-21] MEDS: Pantoprazole Sodium 40 MG Tablet PO ×3 (01:13→21:06)
[2025-03-21] MEDS: levETIRAcetam 1,000 MG Tablet 1000 MG PO ×3 (01:13→21:07)
[2025-03-21] MEDS: DULoxetine Hcl 30 MG Capsule PO ×2 (01:13→21:07)
[2025-03-21] MEDS: Atorvastatin Calcium 80 MG Tablet PO ×2 (01:14→21:06)
[2025-03-21] MEDS: 0.9% Saline Lock 10 ML Syringe IV ×6 (01:14→21:07)
[2025-03-21] MEDS: Sodium Ferric Gluconat/Sucrose 250 MG in 0.9% Normal Saline (250mL Bag) 250 ML 135 MG IV (02:20)
[2025-03-21] MEDS: Potassium Phosphate 21 MM in 0.9% Normal Saline (250mL Bag) 250 ML 84 MM IV (02:55)
[2025-03-21] MEDS: 0.9% Normal Saline (1000mL) 1,000 ML 100 ML IV ×2 (04:29→14:12)
[2025-03-21] MEDS: busPIRone 5 MG Tablet 10 MG PO ×3 (05:13→21:07)
[2025-03-21] MEDS: Acetaminophen 500 MG Tablet PO ×3 (05:13→17:15)
[2025-03-21 06:34] LABS: Absolute Lymphocyte Count 2.61 X10^3/uL (0.83-4.51); Absolute Neutrophil Count 13.5 X10^3/uL (2.0-7.7); Basophil# 0.02 X10^3/uL; Basophil% 0.1 % (0-1); Eosinophil# 0.01 X10^3/uL; Eosinophils% 0.1 % (0-5); Hematocrit 22.5 % (37-47); Hemoglobin 6.8 g/dL (12.0-15.0); Lymphocyte # 2.61 X10^3/ul (0.83-4.51); Lymphocyte % 14.7 % (19-41); Mean Corp Hgb Conc 30.2 g/dL (32-36); Mean Corpuscular Hgb 21.7 pg (27.0-32.0); Mean Corpuscular Volume 71.9 fL (81-99); Mean Platelet Vol. 10.5 fl (6.2-12.0); Monocyte# 1.58 X10^3/uL; Monocyte% 8.9 % (0-10); NRBC Flagged by Analyzer 0 % (0-5); Neutrophil # 13.46 X10^3/uL (2.7-7.7); Neutrophil % 75.5 % (47-70); POSITIVE DIFFERENTIAL YES; POSITIVE MORPHOLOGY YES; Platelet Count 218 K/mm3 (150-450); RBC Distribution Width CV 20.3 % (11.6-14.6); RBC Distribution Width SD 51.1 fl (35.1-43.9); Red Blood Count 3.13 M/mm3 (4.2-5.4); White Blood Count 17.8 K/mm3 (4.4-11.0)
[2025-03-21 06:45] LABS: Differential Indicated SCAN CRITERIA MET
[2025-03-21 07:20] LABS: Anion Gap 12 (5-15); BUN 8 mg/dL (4-19); BUN/Creat Ratio 16.2 RATIO (10-20); Calcium,Total 7.9 mg/dL (7.6-11.0); Carbon Dioxide 28.8 mmol/L (21.0-32.0); Chloride 90 mmol/L (98-108); Creatinine, Serum 0.51 mg/dL (0.70-1.20); EST Glomerular Filtration Rate 105 (>60); Glucose 90 mg/dL (70-99); Potassium 2.8 mmol/L (3.3-5.1); Sodium Level 131 mmol/L (133-145)
[2025-03-21 07:22] LABS: Magnesium 2.2 mg/dL (1.5-2.2)
[2025-03-21] MEDS: Ipratropium/Albuterol Sulfate 3 ML AMPUL.NEB INHALATION ×4 (07:22→20:10)
[2025-03-21] MEDS: predniSONE 20 MG Tablet 40 MG PO (08:33)
--- NOTE | 2025-03-21 09:06 | PN.HOSP_ITS ---
Reason for Visit Reason for Visit: Diagnoses Hypomagnesemia (03/20/25) Hypokalemia (03/20/25) Pneumonia, unspecified organism (03/20/25) Subjective Subjective Patient is a 60-year-old lady who presented with shortness of breath and progressive generalized weakness with some confusion. An assessment of acute metabolic encephalopathy as well as sepsis made admitted to a monitored bed for further management Objective Data Objective Data Vital Signs: Vital Signs Temp Pulse Resp BP Pulse Ox O2 Del Method O2 Flow Rate 98.2 F 80 20 H 126/49 H 92 Nasal Cannula 3.5 03/21/25 08:19 03/21/25 08:19 03/21/25 08:23 03/21/25 08:19 03/21/25 08:19 03/21/25 08:23 03/21/25 08:23 Oxygen Flow Rate (L/min) 3.5 Oxygen Delivery Method Nasal Cannula Weight: 71.6 kg Body Mass Index (BMI) 30.8 Intake & Output: Intake and Output for Last 24 Hours 03/19/25 03/20/25 03/21/25 23:59 23:59 23:59 Intake Total 350 / 350 1827 / 1827 Balance 350 / 350 1827 / 1827 Lab / Micro Data 03/21/25 06:02 03/21/25 06:02 Labs: Laboratory Results - last 24 hr 03/20/25 16:20: Magnesium 1.1 L, Ammonia 32.4, NT pro BNP II 992 H 03/20/25 17:45: WBC 20.1 H, RBC 3.35 L, Hgb 7.2 L, Hct 23.7 L, MCV 70.7 L, MCH 21.5 L, MCHC 30.4 L, RDW Std Deviation 50.4 H, RDW Coeff of Sanju 20.1 H, Plt Count 224, MPV 9.9, Immature Gran % (Auto) 0.700, Neut % (Auto) 81.6 H, Lymph % (Auto) 10.4 L, [place] % (Auto) 6.6, Eos % (Auto) 0.5, Baso % (Auto) 0.2, Absolute Neuts (auto) 16.4 H, Absolute Lymphs (auto) 2.10, Nucleated RBC % 0.1, Differential Comment SCANNED, Anisocytosis 2+, PT 15.9 H, INR 1.3, APTT 42.5 H, Sodium 130 L, Potassium 2.2 L*, Chloride 84 L, Carbon Dioxide 31.4, Anion Gap 14, BUN 4, Creatinine 0.49 L, Est GFR (MDRD) Non-Af 107, BUN/Creatinine Ratio 8.6 L, Glucose 118 H, Lactic Acid 2.4 H*, Calcium 8.2, Total Bilirubin 0.72, AST 49 H, ALT 21, Alkaline Phosphatase 163 H, Troponin T High Sens 22 H, Total Protein 7.9, Albumin 3.3 L, Globulin 4.6 H, Albumin/Globulin Ratio 0.7 L 03/20/25 19:55: Urine Color Yellow, Urine Clarity Clear, Urine pH 6.0, Ur Specific [place] 1.010, Urine Protein 100 H, Urine Glucose (UA) Normal, Urine Ketones Negative, Urine Occult Blood 10 H, Urine Nitrite Negative, Urine Bilirubin 1 H, Urine Urobilinogen 8 H, Ur Leukocyte Esterase 25 H, Urine RBC 0 SEEN, Urine WBC 0 SEEN, Ur Squamous Epith Cells 0-5 SEEN, Urine Bacteria RARE, Urine Mucus 0 SEEN 03/20/25 20:00: Troponin T Hi Sens 2 Hr 20 H 03/20/25 20:20: Phosphorus 2.1 L, Iron 12 L, TIBC 339, Iron Saturation 3.0 L, Unsaturated IBC 327, Ferritin 36 03/20/25 22:15: Troponin T Hi Sens 4Hr 16 H 03/21/25 00:10: Lactic Acid 3.8 H* 03/21/25 06:02: WBC 17.8 H, RBC 3.13 L, Hgb 6.8 L, Hct 22.5 L, MCV 71.9 L, MCH 21.7 L, MCHC 30.2 L, RDW Std Deviation 51.1 H, RDW Coeff of Sanju 20.3 H, Plt Count 218, MPV 10.5, Immature Gran % (Auto) 0.700, Neut % (Auto) 75.5 H, Lymph % (Auto) 14.7 L, [place] % (Auto) 8.9, Eos % (Auto) 0.1, Baso % (Auto) 0.1, Absolute Neuts (auto) 13.5 H, Absolute Lymphs (auto) 2.61, Nucleated RBC % 0, Sodium 131 L, Potassium 2.8 L, Chloride 90 L, Carbon Dioxide 28.8, Anion Gap 12, BUN 8, C reatinine 0.51 L, Estim Creat Clear Calc 101.00, Est GFR (MDRD) Non-Af 105, BUN/Creatinine Ratio 16.2, Glucose 90, Calcium 7.9, Magnesium 2.2 Micro: Microbiology 03/20/25 17:51 Urine, Random Legionella Antigen - Final 03/20/25 17:51 Urine, Random Streptococcus pneumoniae Antigen (M - Final Streptococcus pneumonia Ag 03/20/25 17:50 Mucosa - Nose SARS-CoV-2, Influenza & RSV (PCR) - Final ABG Data ABG results: ABG 03/20/25 18:32 Specimen Type ART Sample Site R Radial pH 7.58 H Bicarbonate Actual 34.1 H Total CO2 35 Base Excess 12 H O2 Saturation 93 L O2 % 3.0 ABG pCO2 36.5 ABG pO2 58 L Jose Test Positive O2 Delivery Device Cannula Vent Mode Not entered Radiography Diagnostic Testing: Radiology Impression Chest X-Ray 03/20/25 18:47 IMPRESSION: Left midlung and basilar consolidative opacities suspicious for pneumonia. Reading Location: [place] [id number] Physical Exam Narrative GENERAL: cooperative but appears ill looking and dyspneic at rest HEENT: Atraumatic; normocephalic EYES; Anicteric, Normal Conjunctiva NECK; supple, normal thyroid, RESPIRATORY: Diminished to auscultation with bilateral wheezes CARDIOVASCULAR: Regular S1 S2, GI: soft, normoactive bowel sounds, : No Renal angle tenderness; EXTREMITIES: No edema, no clubbing, MUSCULOSKELETAL: no muscle wasting NEURO: Awake; no lateralizing signs. SKIN: No Rash PSYCH; Flat affect Assessment & Plan Assessment/Plan (1) Pneumonia: (2) Hypomagnesemia: (3) Hypokalemia: PLAN: Plan Patient is a 60-year-old lady who presented with shortness of breath and progressive generalized weakness with some confusion. An assessment of acute metabolic encephalopathy as well as sepsis made admitted to a monitored bed for further management 1. Severe sepsis ? Secondary to pneumococcal pneumonia. Patient had a source of infection on admission with elevated WBC count as well as evidence of endorgan dysfunction lactic acidosis. Treatment was initiated per protocol with IV fluid resuscitation broad-spectrum antibiotic therapy after cultures have been sent. Response to therapy monitored with serial lactic acid level 2. Pneumonia - Secondary to streptococcal pneumonia, Strep pneumo Test Urine POSITIVE for pneumococcal pneumonia placed on Levaquin and placed on oxygen titrated to keep Pulse Ox greater than 90 2. Acute metabolic encephalopathy ? Secondary to pneumonia treating underlying etiology 4. Hypokalemia -Corrected per protocol, repeat potassium levels ordered in a.m. for response to therapy 5. Anemia ? Secondary to chronic disorder. As part of patient's evaluation ordered iron studies stool guaiac ferritin B12 level.. With patient hemoglobin being less than 7 an order was given for patient to be transfused 1 unit PRBC. Subsequently monitoring H&H and transfuse if patient becomes symptomatic or hemoglobin falls below 7 6. COPD with acute exacerbation Secondary to above patient was started on bronchodilator treatment systemic steroid as well as antibiotics as discussed above. Placed on supplemental oxygen titrated to keep saturation greater than 90 7. Chronic hypoxic respiratory failure Secondary to COPD patient is on baseline oxygen 3 L continuous 8. Tobacco dependence ? Counseled on cessation, patient has allergy to nicotine nicotine patch was therefore not ordered 9. Hypertension ? Blood pressure controlled, home medications continued with dose adjustment as needed 10. Dyslipidemia ? Patient is on atorvastatin did continue 10. Seizure disorder ? Patient is on camazepam as well as Keppra did continue with home doses 12. Depression with anxiety ? Did continue with home meds 13.DVT prophylaxis ? On enoxaparin Time spent in the patient's overall evaluation,decision-making process, review of diagnostic data, adjustment of management, discussion with other providers, nursing nursing and ancillary staff involved in patient's care documentation, 52 Minutes DVT: Lovenox Charges/Coding Visit Charges Inpatient E&M: 41012 [facility] Hosp L3
--- NOTE | 2025-03-21 09:17 | CASEMGMT ---
MARY ISAAC Assessment Face to Face with patient for initial transition planning/care coordination assessment. MARY ISAAC introduced self and role at [facility], pt voices understanding. Pt is A&Ox4 and is resting comfortably in bed and is calm. Care providers, pharmacy, and demographics verified. Admitting dx: Pneumonia LACE Strata: 2 PCP: Geovani Mancia Specialists: Dee (Psychiatry) Preferred Pharmacy: [facility] Insurance: WILLIAM/[employer] Prescription Benefit: Yes LNOK: Alec (H) Living Arrangements: Pt lives with her in a single story home with a ramp to enter ADLs/IADLs: Pt reports that she is entirely independent and denies concerns. 6-Click score is 20. No PT ordered Transportation: Pt's DME: Home oxygen through [employer]. Verified the pt's current home oxygen order states 3L cont via [place]. Pt has a concentrator, portability that her can bring in at [place], and nebulizer. Pt states that she does not have a pox but can afford one. Pt also has a cane, FWW, Rollator, W/C, and shower chair HHC/SNF: Hx at [facility]. Denies HH hx or needs Smoking/ ETOH/Drugs: Pt states that she smokes 1PPD of cigarettes. Denies ETOH or illicit drug use. Pt?s goal: Home Plan: Home with pt , follow for updated o2 needs. Pt denies the need for HH or OP tx at this time and states that she feels safe returning home with her once medically ready and denies further needs at this time. Lesley Chopra RN, CM
[2025-03-21 09:30] LABS: Anisocytosis 1+; Polychromasia 1+
[2025-03-21 09:31] LABS: Platelet Estimate A (ADEQ)
[2025-03-21] MEDS: Potassium Chloride Oral Tablet 20 MEQ 40 MEQ PO (10:44)
[2025-03-21] MEDS: Potassium Chloride Oral Tablet 20 MEQ PO ×2 (10:44→16:51)
[2025-03-21] MEDS: DULoxetine Hcl 60 MG Capsule PO (10:46)
[2025-03-21] MEDS: Lisinopril 20 MG Tablet PO ×2 (10:46→21:07)
[2025-03-21] MEDS: Enoxaparin 40 MG/0.4 ML Syringe SC (10:46)
[2025-03-21] MEDS: amLODIPine 10 MG Tablet PO (10:46)
[2025-03-21] MEDS: carBAMazepine 200 MG CPMP.12HR 400 MG PO ×2 (11:01→21:07)
[2025-03-21 13:52] LABS: Lactic Acid 2.5 mmol/L (0.0-2.0)
[2025-03-21 17:08] LABS: Reflex Lactate? Y
[2025-03-21 18:44] LABS: Lactic Acid 3.5 mmol/L (0.0-2.0)
[2025-03-21] MEDS: levoFLOXacin IV 750 MG/150 ML BAG 100 MG IV (20:55)
[2025-03-22] VITALS (14 sets, daily range): BP systolic 135–188; BP diastolic 56–82; PULSE 89–99; RESP 20–24; TEMP 36.3–36.8; O2SAT 94–98
[2025-03-22] MEDS: 0.9% Normal Saline (1000mL) 1,000 ML 100 ML IV ×2 (00:26→10:46)
[2025-03-22 05:14] LABS: Absolute Lymphocyte Count 1.93 X10^3/uL (0.83-4.51); Absolute Neutrophil Count 8.4 X10^3/uL (2.0-7.7); Basophil# 0.01 X10^3/uL; Basophil% 0.1 % (0-1); Hematocrit 26.1 % (37-47); Hemoglobin 7.9 g/dL (12.0-15.0); Lymphocyte # 1.93 X10^3/ul (0.83-4.51); Lymphocyte % 17.4 % (19-41); Mean Corp Hgb Conc 30.3 g/dL (32-36); Mean Corpuscular Volume 75.9 fL (81-99); Mean Platelet Vol. 10.6 fl (6.2-12.0); Monocyte# 0.65 X10^3/uL; Monocyte% 5.9 % (0-10); NRBC Flagged by Analyzer 0 % (0-5); Neutrophil # 8.43 X10^3/uL (2.7-7.7); Neutrophil % 76.1 % (47-70); POSITIVE MORPHOLOGY YES; Platelet Count 218 K/mm3 (150-450); RBC Distribution Width CV 20.4 % (11.6-14.6); RBC Distribution Width SD 54.6 fl (35.1-43.9); Red Blood Count 3.44 M/mm3 (4.2-5.4); White Blood Count 11.1 K/mm3 (4.4-11.0)
[2025-03-22 05:48] LABS: Anion Gap 11 (5-15); BUN 4 mg/dL (4-19); BUN/Creat Ratio 11.2 RATIO (10-20); Calcium,Total 8.4 mg/dL (7.6-11.0); Carbon Dioxide 26.8 mmol/L (21.0-32.0); Chloride 98 mmol/L (98-108); EST Glomerular Filtration Rate 112 (>60); Estimated Creatinine Clearance 128.78 ml/min (50-250); Glucose 105 mg/dL (70-99); Magnesium 2.1 mg/dL (1.5-2.2); Phosphorus 2.8 mg/dL (2.7-4.5); Potassium 3.2 mmol/L (3.3-5.1); Sodium Level 136 mmol/L (133-145)
[2025-03-22] MEDS: busPIRone 5 MG Tablet 10 MG PO ×3 (06:51→21:20)
[2025-03-22] MEDS: 0.9% Saline Lock 10 ML Syringe IV ×3 (06:51→21:29)
[2025-03-22] MEDS: Ipratropium/Albuterol Sulfate 3 ML AMPUL.NEB INHALATION ×3 (07:16→19:27)
[2025-03-22 07:21] LABS: Anisocytosis 2+; Differential Comment SCANNED; Differential Indicated SCAN CRITERIA MET; Polychromasia RARE
[2025-03-22] MEDS: Acetaminophen 500 MG Tablet PO ×2 (07:48→16:28)
[2025-03-22] MEDS: Potassium Chloride Oral Tablet 20 MEQ PO ×2 (09:16→16:29)
[2025-03-22] MEDS: carBAMazepine 200 MG CPMP.12HR 400 MG PO ×2 (09:17→21:24)
[2025-03-22] MEDS: levETIRAcetam 1,000 MG Tablet 1000 MG PO ×2 (09:18→21:23)
[2025-03-22] MEDS: DULoxetine Hcl 60 MG Capsule PO (09:18)
[2025-03-22] MEDS: amLODIPine 10 MG Tablet PO (09:19)
[2025-03-22] MEDS: Pantoprazole Sodium 40 MG Tablet PO ×2 (09:20→21:21)
[2025-03-22] MEDS: Lisinopril 20 MG Tablet PO ×2 (09:20→21:21)
--- NOTE | 2025-03-22 09:35 | PN.HOSP_ITS ---
Reason for Visit Reason for Visit: Diagnoses Hypomagnesemia (03/20/25) Hypokalemia (03/20/25) Pneumonia, unspecified organism (03/20/25) Subjective Subjective Patient seen WBC count trending down. Added systemic steroid to her treatment regimen the day prior. Objective Data Objective Data Vital Signs: Vital Signs Temp Pulse Resp BP Pulse Ox O2 Del Method O2 Flow Rate 97.9 F 99 20 H 169/63 H 96 Nasal Cannula 3 03/22/25 09:14 03/22/25 09:14 03/22/25 09:14 03/22/25 09:14 03/22/25 09:14 03/22/25 09:14 03/22/25 09:14 Oxygen Flow Rate (L/min) 3 Oxygen Delivery Method Nasal Cannula Weight: 71.6 kg Body Mass Index (BMI) 30.8 Intake & Output: Intake and Output for Last 24 Hours 03/20/25 03/21/25 03/22/25 23:59 23:59 23:59 Intake Total 350 / 350 4420.34 / 4420.34 601.67 / 601.67 Output Total 300 / 300 Balance 350 / 350 4120.34 / 4120.34 601.67 / 601.67 Lab / Micro Data 03/22/25 04:40 03/22/25 04:40 Labs: Laboratory Results - last 24 hr 03/21/25 13:02: Lactic Acid 2.5 H* 03/21/25 14:18: Blood Type B POSITIVE, Antibody Screen POSITIVE, Antibody Identification ANTI-M, Antigen Identification K ANTIGEN - NEGATIVE 03/21/25 14:18: Antigen Identification M ANTIGEN - NEGATIVE, Crossmatch See Detail 03/21/25 17:33: Lactic Acid 3.5 H* 03/22/25 04:40: WBC 11.1 H, RBC 3.44 L, Hgb 7.9 L, Hct 26.1 L, MCV 75.9 L D, MCH 23.0 L, MCHC 30.3 L, RDW Std Deviation 54.6 H, RDW Coeff of Sanju 20.4 H, Plt Count 218, MPV 10.6, Immature Gran % (Auto) 0.500, Neut % (Auto) 76.1 H, Lymph % (Auto) 17.4 L, [place] % (Auto) 5.9, Eos % (Auto) 0.0, Baso % (Auto) 0.1, Absolute Neuts (auto) 8.4 H, Absolute Lymphs (auto) 1.93, Nucleated RBC % 0, Differential Comment SCANNED, Polychromasia RARE, Anisocytosis 2+, Sodium 136, Potassium 3.2 L, Chloride 98, Carbon Dioxide 26.8, Anion Gap 11, BUN 4, Creatinine 0.40 L, Estim Creat Clear Calc 128.78, Est GFR (MDRD) Non-Af 112, BUN/Creatinine Ratio 11.2, Glucose 105 H, Calcium 8.4, Phosphorus 2.8, Magnesium 2.1 Micro: Microbiology 03/20/25 17:51 Urine, Random Legionella Antigen - Final 03/20/25 17:51 Urine, Random Streptococcus pneumoniae Antigen (M - Final Streptococcus pneumonia Ag 03/21/25 00:38 Sputum, Expectorated/Coughed Gram Stain - Final 03/20/25 17:50 Mucosa - Nose SARS-CoV-2, Influenza & RSV (PCR) - Final Physical Exam Narrative GENERAL: cooperative HEENT: Atraumatic; normocephalic EYES; Anicteric, Normal Conjunctiva NECK; supple, normal thyroid, RESPIRATORY: Diminished to auscultation with bilateral wheezes CARDIOVASCULAR: Regular S1 S2, GI: soft, normoactive bowel sounds, : No Renal angle tenderness; EXTREMITIES: No edema, no clubbing, MUSCULOSKELETAL: no muscle wasting NEURO: Awake; no lateralizing signs. SKIN: No Rash PSYCH; Flat affect Assessment & Plan Assessment/Plan (1) Pneumonia: (2) Hypomagnesemia: (3) Hypokalemia: PLAN: Plan Patient is a 60-year-old lady who presented with shortness of breath and progressive generalized weakness with some confusion. An assessment of acute metabolic encephalopathy as well as sepsis made admitted to a monitored bed for further management 1. Severe sepsis ? Secondary to pneumococcal pneumonia. Patient had a source of infection on admission with elevated WBC count as well as evidence of endorgan dysfunction lactic acidosis. Treatment was initiated per protocol with IV fluid resuscitation broad-spectrum antibiotic therapy after cultures have been sent. Response to therapy monitored with serial lactic acid level ? Patient WBC count trending down 2. Pneumonia - Secondary to streptococcal pneumonia, Strep pneumo Test Urine POSITIVE for pneumococcal pneumonia placed on Levaquin and placed on oxygen titrated to keep Pulse Ox greater than 90 . Acute metabolic encephalopathy ? Secondary to pneumonia treating underlying etiology tachycardia 03/22/2025; patient back to baseline 4. Hypokalemia -Corrected per protocol, repeat potassium levels ordered in a.m. for response to therapy ? Patient potassium still remains low additional potassium given 5. Anemia ? Secondary to chronic disorder. As part of patient's evaluation ordered iron studies stool guaiac ferritin B12 level.. With patient hemoglobin being less than 7 an order was given for patient to be transfused 1 unit PRBC. Subsequently monitoring H&H and transfuse if patient becomes symptomatic or hemoglobin falls below 7 6. COPD with acute exacerbation Secondary to above patient was started on bronchodilator treatment systemic steroid as well as antibiotics as discussed above. Placed on supplemental oxygen titrated to keep saturation greater than 90 ? 03/22/2025; patient still remains dyspneic at rest 7. Chronic hypoxic respiratory failure Secondary to COPD patient is on baseline oxygen 3 L continuous 8. Tobacco dependence ? Counseled on cessation, patient has allergy to nicotine nicotine patch was therefore not ordered 9. Hypertension ? Blood pressure controlled, home medications continued with dose adjustment as needed 10. Dyslipidemia ? Patient is on atorvastatin did continue 10. Seizure disorder ? Patient is on camazepam as well as Keppra did continue with home doses 12. Depression with anxiety ? Did continue with home meds 13.DVT prophylaxis ? On enoxaparin 14. Constipation ? Symptom management initiated Charges/Coding Visit Charges Inpatient E&M: 78323 Subs Hosp L2
[2025-03-22] MEDS: NYSTATIN 500,000 UNIT/5 ML UDC 500000 UNIT PO ×4 (10:41→21:20)
[2025-03-22] MEDS: Polyethylene Glycol 3350 17 GM PACKET PO (10:41)
[2025-03-22] MEDS: Potassium Chloride Oral Tablet 20 MEQ 60 MEQ PO (10:41)
[2025-03-22] MEDS: Senna/Docusate Sodium 1 Tablet PO ×2 (10:42→21:23)
[2025-03-22] MEDS: hydrALAZINE 20 MG/ML Vial 10 MG IV (14:41)
[2025-03-22] MEDS: Furosemide 100 MG/10 ML Vial 60 MG IV (16:29)
[2025-03-22] MEDS: Albuterol 2.5 MG/3 ML VIAL.NEB. INHALATION (16:38)
[2025-03-22] MEDS: levoFLOXacin IV 750 MG/150 ML BAG 100 MG IV (21:20)
[2025-03-22] MEDS: Atorvastatin Calcium 80 MG Tablet PO (21:22)
[2025-03-22] MEDS: DULoxetine Hcl 30 MG Capsule PO (21:24)
[2025-03-23] VITALS (11 sets, daily range): BP systolic 137–216; BP diastolic 55–116; PULSE 88–105; RESP 16–24; TEMP 36.3–36.8; O2SAT 96–98
[2025-03-23 05:24] LABS: Absolute Lymphocyte Count 2.08 X10^3/uL (0.83-4.51); Absolute Neutrophil Count 6.3 X10^3/uL (2.0-7.7); Basophil# 0.01 X10^3/uL; Basophil% 0.1 % (0-1); Eosinophil# 0.01 X10^3/uL; Eosinophils% 0.1 % (0-5); Hematocrit 26.9 % (37-47); Lymphocyte # 2.08 X10^3/ul (0.83-4.51); Mean Corp Hgb Conc 29.7 g/dL (32-36); Mean Corpuscular Hgb 22.9 pg (27.0-32.0); Mean Corpuscular Volume 76.9 fL (81-99); Mean Platelet Vol. 10.4 fl (6.2-12.0); Monocyte# 0.61 X10^3/uL; Monocyte% 6.8 % (0-10); NRBC Flagged by Analyzer 0.4 % (0-5); Neutrophil # 6.25 X10^3/uL (2.7-7.7); Neutrophil % 69.2 % (47-70); POSITIVE MORPHOLOGY YES; Platelet Count 245 K/mm3 (150-450); RBC Distribution Width SD 56.1 fl (35.1-43.9)
[2025-03-23 05:36] LABS: Differential Indicated SCAN CRITERIA MET
[2025-03-23] MEDS: busPIRone 5 MG Tablet 10 MG PO ×3 (05:53→21:18)
[2025-03-23 05:56] LABS: Anion Gap 11 (5-15); BUN 4 mg/dL (4-19); BUN/Creat Ratio 10.7 RATIO (10-20); Calcium,Total 8.8 mg/dL (7.6-11.0); Chloride 100 mmol/L (98-108); EST Glomerular Filtration Rate 112 (>60); Estimated Creatinine Clearance 128.78 ml/min (50-250); Glucose 108 mg/dL (70-99); Potassium 3.8 mmol/L (3.3-5.1); Sodium Level 140 mmol/L (133-145)
[2025-03-23] MEDS: 0.9% Saline Lock 10 ML Syringe IV ×3 (05:56→15:04)
[2025-03-23] MEDS: Acetaminophen 500 MG Tablet PO (06:00)
[2025-03-23 06:35] LABS: Anisocytosis 2+; Microcytosis 2+; Polychromasia RARE
[2025-03-23 06:36] LABS: Differential Comment SCANNED
[2025-03-23] MEDS: Ipratropium/Albuterol Sulfate 3 ML AMPUL.NEB INHALATION ×3 (06:43→14:20)
--- NOTE | 2025-03-23 07:35 | PN.HOSP_ITS ---
Reason for Visit Reason for Visit: Diagnoses Hypomagnesemia (03/20/25) Hypokalemia (03/20/25) Pneumonia, unspecified organism (03/20/25) Subjective Subjective Patient seen complains of pleuritic chest pain. Order D-dimer if positive will proceed to obtain CTA of the chest.. Patient had markedly elevated blood pressure the day prior adjusted medications. Objective Data Objective Data Vital Signs: Vital Signs Temp Pulse Resp BP Pulse Ox O2 Del Method O2 Flow Rate 97.4 F L 92 23 H 148/116 H 96 Nasal Cannula 2.5 03/23/25 03:22 03/23/25 06:43 03/23/25 06:43 03/23/25 03:22 03/23/25 06:43 03/23/25 06:43 03/23/25 06:43 Oxygen Flow Rate (L/min) 2.5 Oxygen Delivery Method Nasal Cannula Weight: 71.6 kg Body Mass Index (BMI) 30.8 Intake & Output: Intake and Output for Last 24 Hours 03/21/25 03/22/25 03/23/25 23:59 23:59 23:59 Intake Total 4420.34 / 4420.34 4146.67 / 4146.67 Output Total 300 / 300 Balance 4120.34 / 4120.34 4146.67 / 4146.67 Lab / Micro Data 03/23/25 04:41 03/23/25 04:41 Labs: Laboratory Results - last 24 hr 03/23/25 04:41: WBC 9.0, RBC 3.50 L, Hgb 8.0 L, Hct 26.9 L, MCV 76.9 L, MCH 22.9 L, MCHC 29.7 L, RDW Std Deviation 56.1 H, RDW Coeff of Sanju 21.0 H, Plt Count 245, MPV 10.4, Immature Gran % (Auto) 0.800, Neut % (Auto) 69.2, Lymph % (Auto) 23.0, [place] % (Auto) 6.8, Eos % (Auto) 0.1, Baso % (Auto) 0.1, Absolute Neuts (auto) 6.3, Absolute Lymphs (auto) 2.08, Nucleated RBC % 0.4, Differential Comment SCANNED, Polychromasia RARE, Anisocytosis 2+, Microcytosis 2+, Sodium 140, Potassium 3.8, Chloride 100, Carbon Dioxide 30.0, Anion Gap 11, BUN 4, C reatinine 0.40 L, Estim Creat Clear Calc 128.78, Est GFR (MDRD) Non-Af 112, BUN/Creatinine Ratio 10.7, Glucose 108 H, Calcium 8.8 Micro: Microbiology 03/20/25 17:55 Urine, Clean Catch Urine Culture - Preliminary Staphylococcus aureus Mixed Gram Positive Organisms 03/20/25 17:51 Urine, Random Legionella Antigen - Final 03/20/25 17:51 Urine, Random Streptococcus pneumoniae Antigen (M - Final Streptococcus pneumonia Ag 03/21/25 00:38 Sputum, Expectorated/Coughed Gram Stain - Final 03/20/25 17:50 Mucosa - Nose SARS-CoV-2, Influenza & RSV (PCR) - Final Physical Exam Narrative GENERAL: cooperative HEENT: Atraumatic; normocephalic EYES; Anicteric, Normal Conjunctiva NECK; supple, normal thyroid, RESPIRATORY: Diminished to auscultation with bilateral wheezes CARDIOVASCULAR: Regular S1 S2, GI: soft, normoactive bowel sounds, : No Renal angle tenderness; EXTREMITIES: No edema, no clubbing, MUSCULOSKELETAL: no muscle wasting NEURO: Awake; no lateralizing signs. SKIN: No Rash PSYCH; Flat affect Assessment & Plan Assessment/Plan (1) Pneumonia: (2) Hypomagnesemia: (3) Hypokalemia: PLAN: Plan Patient is a 60-year-old lady who presented with shortness of breath and progressive generalized weakness with some confusion. An assessment of acute metabolic encephalopathy as well as sepsis made admitted to a monitored bed for further management 1. Severe sepsis ? Secondary to pneumococcal pneumonia. Patient had a source of infection on admission with elevated WBC count as well as evidence of endorgan dysfunction lactic acidosis. Treatment was initiated per protocol with IV fluid resuscitation broad-spectrum antibiotic therapy after cultures have been sent. Response to therapy monitored with serial lactic acid level ?03/22/2025 patient WBC count trending down ? 03/23/2025; WBC count down to 9.0 2. Pneumonia - Secondary to streptococcal pneumonia, Strep pneumo Test Urine POSITIVE for pneumococcal pneumonia placed on Levaquin and placed on oxygen titrated to keep Pulse Ox greater than 90 ? 03/23/2025; patient presents complaint of persistent cough and pleuritic chest pain ordered D-dimer if positive will proceed to obtain CTA of the chest 3. Acute metabolic encephalopathy ? Secondary to pneumonia treating underlying etiology tachycardia 03/22/2025; patient back to baseline 4. Hypokalemia -Corrected per protocol, repeat potassium levels ordered in a.m. for response to therapy ? Patient potassium still remains low additional potassium given 5. Anemia ? Secondary to chronic disorder. As part of patient's evaluation ordered iron studies stool guaiac ferritin B12 level.. With patient hemoglobin being less than 7 an order was given for patient to be transfused 1 unit PRBC. Subsequently monitoring H&H and transfuse if patient becomes symptomatic or hemoglobin falls below 7 6. COPD with acute exacerbation Secondary to above patient was started on bronchodilator treatment systemic steroid as well as antibiotics as discussed above. Placed on supplemental oxygen titrated to keep saturation greater than 90 ? 03/22/2025; patient still remains dyspneic at rest 7. Chronic hypoxic respiratory failure Secondary to COPD patient is on baseline oxygen 3 L continuous 8. Tobacco dependence ? Counseled on cessation, patient has allergy to nicotine nicotine patch was therefore not ordered 9. Hypertension ? Blood pressure controlled, home medications continued with dose adjustment as needed ? 03/23/2025; patient blood pressure was markedly elevated the day prior 188/82 adjusted medications and added hydralazine as needed for systolic blood pressure greater than 160 10. Dyslipidemia ? Patient is on atorvastatin did continue 10. Seizure disorder ? Patient is on camazepam as well as Keppra did continue with home doses 12. Depression with anxiety ? Did continue with home meds 13.DVT prophylaxis ? On enoxaparin 14. Constipation ? Symptom management initiated Charges/Coding Visit Charges Inpatient E&M: 75131 Subs Hosp L2
--- NOTE | 2025-03-23 07:37 | EKG12_ITS ---
Test Reason : CP Blood Pressure : */* mmHG Vent. Rate : 94 BPM Atrial Rate : 94 BPM P-R Int : 170 ms QRS Dur : 90 ms QT Int : 344 ms P-R-T Axes : 58 22 81 degrees QTcB Int : 430 ms Sinus rhythm with Fusion complexes Nonspecific ST and T wave abnormality Abnormal ECG When compared with ECG of 20-Mar-2025 17:19, MANUAL COMPARISON REQUIRED DATA IS UNCONFIRMED Confirmed by Luiz Weber ([id number]), school photograph editor HELADIO MARIN ([id number]) on 03/25/2025 8:01:43 AM Referred By: Confirmed By: Luiz Weber
[2025-03-23 09:48] LABS: D-Dimer Quantitative (DVT/PE) 2.69 FEU/ug/m (0.27-0.49)
--- NOTE | 2025-03-23 09:50 | CT_ITS ---
PROCEDURE: CTA CHEST W/WO CONTRAST 03/23/2025 REASON FOR EXAM: ELEVATED D DIMER TECHNIQUE: CTA axial imaging of the chest with intravenous contrast. Coronal and Sagittal reconstruction series were provided. 3D, 3D post processing, 3D reconstructions, Maximum intensity projection (MIPs) Volume rendering and Shaded surface rendering was provided. PATIENT PREPARATION: Per protocol CONTRAST: Isovue 370 VOLUME: 100mL One or more dose reduction techniques were used (e.g., Automated exposure control, adjustment of the mA and/or kV according to patient size, use of iterative reconstruction technique). RADIATION DOSE SUMMARY: CTDlvol: 40 mGy DLP: 400 mGycm COMPARISON: Chest radiograph 03/20/2025. FINDINGS: Hardware: None. Lymph nodes: Mediastinal nodes, likely reactive. Heart: The heart is normal in size without pericardial effusion. Severe coronary artery and moderate thoracic aortic calcifications. The great vessels are normal in caliber. Pulmonary Vessels: No central filling defect within the segmental or subsegmental pulmonary arteries. Lungs and Airways: The central airways are patent. Small patchy consolidations and ground-glass opacities throughout the superior left lower lobe and left hilar region. Additional patchy ground-glass opacities throughout the right lung. Mild emphysema and scattered areas of scarring. Trace left pleural effusion. No pneumothorax. Upper Abdomen: Nodular contour of the liver. Bones: Prior ACDF and partially visualized spinal fixation of the lumbar spine. Cervical and thoracic spondylosis. CT/CTA Chest W/WO Contrast IMPRESSION: 1. No acute pulmonary embolism. 2. Patchy consolidations and ground-glass opacities, greatest within the left l malu. Findings are most compatible with pneumonitis/pneumonia, however pulmonary neoplasm can not be excluded. Follow- up CT chest in 4-6 weeks is recommended to evaluate for resolution. 3. Nodular contour of the liver, which may represent fibrosis/cirrhosis. Reading Location: [id number]
[2025-03-23] MEDS: Potassium Chloride Oral Tablet 20 MEQ PO ×2 (10:10→18:02)
[2025-03-23] MEDS: Spironolactone 25 MG Tablet PO (10:10)
[2025-03-23] MEDS: carBAMazepine 200 MG CPMP.12HR 400 MG PO ×2 (10:11→21:21)
[2025-03-23] MEDS: levETIRAcetam 1,000 MG Tablet 1000 MG PO ×2 (10:12→21:22)
[2025-03-23] MEDS: amLODIPine 10 MG Tablet PO (10:12)
[2025-03-23] MEDS: Furosemide 40 MG Tablet PO ×2 (10:12→18:02)
[2025-03-23] MEDS: DULoxetine Hcl 60 MG Capsule PO (10:12)
[2025-03-23] MEDS: Lisinopril 20 MG Tablet PO ×2 (10:12→21:18)
[2025-03-23] MEDS: NYSTATIN 500,000 UNIT/5 ML UDC 500000 UNIT PO ×4 (10:13→21:25)
[2025-03-23] MEDS: Pantoprazole Sodium 40 MG Tablet PO ×2 (10:13→21:26)
[2025-03-23] MEDS: hydrALAZINE 20 MG/ML Vial 10 MG IV (11:21)
[2025-03-23] MEDS: Senna/Docusate Sodium 1 Tablet PO (21:21)
[2025-03-23] MEDS: Atorvastatin Calcium 80 MG Tablet PO (21:22)
[2025-03-23] MEDS: levoFLOXacin IV 750 MG/150 ML BAG 100 MG IV (21:29)
[2025-03-23] MEDS: DULoxetine Hcl 30 MG Capsule PO (21:48)
[2025-03-24] VITALS (14 sets, daily range): BP systolic 143–197; BP diastolic 48–89; PULSE 90–101; RESP 16–20; TEMP 36.3–37.1; O2SAT 94–98
[2025-03-24] MEDS: 0.9% Saline Lock 10 ML Syringe IV ×4 (03:22→22:00)
[2025-03-24] MEDS: hydrALAZINE 20 MG/ML Vial 10 MG IV ×3 (03:22→22:12)
[2025-03-24 05:50] LABS: Absolute Lymphocyte Count 2.41 X10^3/uL (0.83-4.51); Absolute Neutrophil Count 7.3 X10^3/uL (2.0-7.7); Basophil# 0.01 X10^3/uL; Basophil% 0.1 % (0-1); Eosinophil# 0.01 X10^3/uL; Eosinophils% 0.1 % (0-5); Hematocrit 30.5 % (37-47); Lymphocyte # 2.41 X10^3/ul (0.83-4.51); Lymphocyte % 22.9 % (19-41); Mean Corp Hgb Conc 29.5 g/dL (32-36); Mean Corpuscular Hgb 23.1 pg (27.0-32.0); Mean Corpuscular Volume 78.2 fL (81-99); Mean Platelet Vol. 10.1 fl (6.2-12.0); Monocyte# 0.68 X10^3/uL; Monocyte% 6.5 % (0-10); NRBC Flagged by Analyzer 0.2 % (0-5); Neutrophil # 7.32 X10^3/uL (2.7-7.7); Neutrophil % 69.6 % (47-70); POSITIVE MORPHOLOGY YES; Platelet Count 283 K/mm3 (150-450); RBC Distribution Width CV 22.3 % (11.6-14.6); RBC Distribution Width SD 58.3 fl (35.1-43.9); White Blood Count 10.5 K/mm3 (4.4-11.0)
[2025-03-24 05:51] LABS: Differential Indicated SCAN CRITERIA MET
[2025-03-24] MEDS: busPIRone 5 MG Tablet 10 MG PO ×3 (06:10→21:52)
[2025-03-24 06:19] LABS: Anion Gap 11 (5-15); BUN 7 mg/dL (4-19); Carbon Dioxide 30.1 mmol/L (21.0-32.0); Chloride 97 mmol/L (98-108); Creatinine, Serum 0.46 mg/dL (0.70-1.20); EST Glomerular Filtration Rate 108 (>60); Estimated Creatinine Clearance 111.98 ml/min (50-250); Glucose 100 mg/dL (70-99); Potassium 4.3 mmol/L (3.3-5.1); Sodium Level 138 mmol/L (133-145)
[2025-03-24 06:30] LABS: Anisocytosis 2+; Differential Comment SCANNED; Hypochromasia 1+; Microcytosis 1+; Ovalocyte 1+; Platelet Estimate ADEQUATE (ADEQ); Polychromasia 1+; Schistocytes RARE; Target Cells 1+; Tear Drop Cell RARE
--- NOTE | 2025-03-24 08:29 | PCM.PN.HOSP ---
Reason for Visit Reason for Visit: Diagnoses Hypomagnesemia (03/20/25) Hypokalemia (03/20/25) Pneumonia, unspecified organism (03/20/25) Subjective Subjective Patient hemoglobin 9.0 this a.m. Given the fact that his stool guaiac came back positive and her hemoglobin having dropped to 6.8 during her hospital stay consult was placed to GI for possible endoscopic evaluation prior to patient being Objective Data Objective Data Vital Signs: Vital Signs Temp Pulse Resp BP Pulse Ox O2 Del Method O2 Flow Rate 98 F 90 16 170/77 H 96 Nasal Cannula 3 03/24/25 03:15 03/24/25 04:22 03/24/25 03:15 03/24/25 04:22 03/24/25 03:15 03/24/25 03:15 03/24/25 03:15 Oxygen Flow Rate (L/min) 3 Oxygen Delivery Method Nasal Cannula Weight: 71.6 kg Body Mass Index (BMI) 30.8 Intake & Output: Intake and Output for Last 24 Hours 03/22/25 03/23/25 03/24/25 23:59 23:59 23:59 Intake Total 4146.67 / 4146.67 1350 / 1450 220 / 220 Balance 4146.67 / 4146.67 1350 / 1450 220 / 220 Lab / Micro Data 03/24/25 04:58 03/24/25 04:58 Labs: Laboratory Results - last 24 hr 03/23/25 09:10: D-Dimer Quant (PE/DVT) 2.69 H* 03/24/25 04:58: WBC 10.5, RBC 3.90 L, Hgb 9.0 L, Hct 30.5 L, MCV 78.2 L, MCH 23.1 L, MCHC 29.5 L, RDW Std Deviation 58.3 H, RDW Coeff of Sanju 22.3 H, Plt Count 283, MPV 10.1, Immature Gran % (Auto) 0.800, Neut % (Auto) 69.6, Lymph % (Auto) 22.9, [place] % (Auto) 6.5, Eos % (Auto) 0.1, Baso % (Auto) 0.1, Absolute Neuts (auto) 7.3, Absolute Lymphs (auto) 2.41, Nucleated RBC % 0.2, Differential Comment SCANNED, Platelet Estimate ADEQUATE, Polychromasia 1+, Hypochromasia 1+, Anisocytosis 2+, Microcytosis 1+, Target Cells 1+, Tear Drop Cells RARE, Ovalocytes 1+, Schistocytes RARE, Sodium 138, Potassium 4.3, Chloride 97 L, Carbon Dioxide 30.1, Anion Gap 11, BUN 7, Creatinine 0.46 L, Estim Creat Clear Calc 111.98, Est GFR (MDRD) Non-Af 108, BUN/Creatinine Ratio 16.0, Glucose 100 H, Calcium 9.0 Micro: Microbiology 03/21/25 00:38 Sputum, Expectorated/Coughed Gram Stain - Final 03/21/25 00:38 Sputum, Expectorated/Coughed Respiratory Culture - Final Presumptive C albicans 03/20/25 17:55 Urine, Clean Catch Urine Culture - Final Meth. resistant Staph. aureus Mixed Gram Positive Organisms 03/20/25 16:20 Blood Culture (Wb) - Right Wrist Blood Culture - Preliminary No growth in 48 hours. 03/20/25 17:45 Blood Culture (Wb) - Left Wrist Blood Culture - Preliminary No growth in 48 hours. 03/20/25 17:51 Urine, Random Legionella Antigen - Final 03/20/25 17:51 Urine, Random Streptococcus pneumoniae Antigen (M - Final Streptococcus pneumonia Ag 03/20/25 17:50 Mucosa - Nose SARS-CoV-2, Influenza & RSV (PCR) - Final Radiography Diagnostic Testing: Radiology Impression Chest CTA 03/23/25 09:50 IMPRESSION: 1. No acute pulmonary embolism. 2. Patchy consolidations and ground-glass opacities, greatest within the left lung. Findings are most compatible with pneumonitis/pneumonia, however pulmonary neoplasm can not be excluded. Follow-up CT chest in 4-6 weeks is recommended to evaluate for resolution. 3. Nodular contour of the liver, which may represent fibrosis/cirrhosis. Reading Location: [facility] Physical Exam Narrative GENERAL: cooperative HEENT: Atraumatic; normocephalic EYES; Anicteric, Normal Conjunctiva NECK; supple, normal thyroid, RESPIRATORY: Diminished to auscultation with bilateral wheezes CARDIOVASCULAR: Regular S1 S2, GI: soft, normoactive bowel sounds, : No Renal angle tenderness; EXTREMITIES: No edema, no clubbing, MUSCULOSKELETAL: no muscle wasting NEURO: Awake; no lateralizing signs. SKIN: No Rash PSYCH; Flat affect Assessment & Plan Assessment/Plan (1) Pneumonia: (2) Hypomagnesemia: (3) Hypokalemia: PLAN: Plan Patient is a 60-year-old lady who presented with shortness of breath and progressive generalized weakness with some confusion. An assessment of acute metabolic encephalopathy as well as sepsis made admitted to a monitored bed for further management 1. Severe sepsis ? Secondary to pneumococcal pneumonia. Patient had a source of infection on admission with elevated WBC count as well as evidence of endorgan dysfunction lactic acidosis. Treatment was initiated per protocol with IV fluid resuscitation broad-spectrum antibiotic therapy after cultures have been sent. Response to therapy monitored with serial lactic acid level ?03/22/2025 patient WBC count trending down ? 03/23/2025; WBC count down to 9.0 2. Pneumonia - Secondary to streptococcal pneumonia, Strep pneumo Test Urine POSITIVE for pneumococcal pneumonia placed on Levaquin and placed on oxygen titrated to keep Pulse Ox greater than 90 ? 03/23/2025; patient presents complaint of persistent cough and pleuritic chest pain ordered D-dimer if positive will proceed to obtain CTA of the chest ? 03/24/2025; CT of the chest obtained on 03/23/2025 did demonstrate 1. No acute pulmonary embolism. 2. Patchy consolidations and ground-glass opacities, greatest within the left lung. Findings are most compatible with pneumonitis/pneumonia, however pulmonary neoplasm can not be excluded. Follow-up CT chest in 4-6 weeks is recommended to evaluate for resolution. 3. Nodular contour of the liver, which may represent fibrosis/cirrhosis. - Findings discussed with patient. 3. Acute metabolic encephalopathy ? Secondary to pneumonia treating underlying etiology tachycardia 03/22/2025; patient back to baseline 4. Hypokalemia -Corrected per protocol, repeat potassium levels ordered in a.m. for response to therapy ? Patient potassium still remains low additional potassium given 5. Anemia ? Secondary to chronic disorder. As part of patient's evaluation ordered iron studies stool guaiac ferritin B12 level.. With patient hemoglobin being less than 7 an order was given for patient to be transfused 1 unit PRBC. Subsequently monitoring H&H and transfuse if patient becomes symptomatic or hemoglobin falls below 7 ? 03/24/2025;Patient hemoglobin 9.0 this a.m. Given the fact that his stool guaiac came back positive and her hemoglobin having dropped to 6.8 during her hospital stay consult was placed to GI for possible endoscopic evaluation prior to patient being 6. COPD with acute exacerbation Secondary to above patient was started on bronchodilator treatment systemic steroid as well as antibiotics as discussed above. Placed on supplemental oxygen titrated to keep saturation greater than 90 ? 03/22/2025; patient still remains dyspneic at rest 7. Chronic hypoxic respiratory failure Secondary to COPD patient is on baseline oxygen 3 L continuous 8. Tobacco dependence ? Counseled on cessation, patient has allergy to nicotine nicotine patch was therefore not ordered 9. Hypertension ? Blood pressure controlled, home medications continued with dose adjustment as needed ? 03/23/2025; patient blood pressure was markedly elevated the day prior 188/82 adjusted medications and added hydralazine as needed for systolic blood pressure greater than 160 10. Dyslipidemia ? Patient is on atorvastatin did continue 10. Seizure disorder ? Patient is on camazepam as well as Keppra did continue with home doses 12. Depression with anxiety ? Did continue with home meds 13.DVT prophylaxis ? On enoxaparin 14. Constipation ? Symptom management initiated Charges/Coding Visit Charges Inpatient E&M: 95568 Subs Hosp L2
[2025-03-24] MEDS: Potassium Chloride Oral Tablet 20 MEQ PO ×2 (09:12→16:26)
[2025-03-24] MEDS: carBAMazepine 200 MG CPMP.12HR 400 MG PO ×2 (09:12→21:56)
[2025-03-24] MEDS: Pantoprazole Sodium 40 MG Tablet PO ×2 (09:12→21:52)
[2025-03-24] MEDS: levETIRAcetam 1,000 MG Tablet 1000 MG PO ×2 (09:12→21:52)
[2025-03-24] MEDS: Furosemide 40 MG Tablet PO ×2 (09:13→18:05)
[2025-03-24] MEDS: Lisinopril 20 MG Tablet PO ×2 (09:14→21:51)
[2025-03-24] MEDS: NYSTATIN 500,000 UNIT/5 ML UDC 500000 UNIT PO ×4 (09:15→21:55)
[2025-03-24] MEDS: amLODIPine 10 MG Tablet PO (09:17)
[2025-03-24] MEDS: DULoxetine Hcl 60 MG Capsule PO (09:18)
[2025-03-24] MEDS: Acetaminophen 500 MG Tablet PO ×2 (10:32→21:54)
[2025-03-24] MEDS: Spironolactone 25 MG Tablet PO (10:33)
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
[2025-03-24] MEDS: Ipratropium/Albuterol Sulfate 3 ML AMPUL.NEB INHALATION (19:50)
[2025-03-24] MEDS: Atorvastatin Calcium 80 MG Tablet PO (21:52)
[2025-03-24] MEDS: DULoxetine Hcl 30 MG Capsule PO (21:52)
[2025-03-24] MEDS: levoFLOXacin IV 750 MG/150 ML BAG 100 MG IV (21:53)
[2025-03-25] VITALS (15 sets, daily range): BP systolic 132–178; BP diastolic 50–107; PULSE 87–106; RESP 16–22; TEMP 36.1–36.8; O2SAT 94–98; BMI 30.9
[2025-03-25] MEDS: Metoprolol Tartrate 5 MG/5 ML Vial IV (00:41)
[2025-03-25] MEDS: hydrALAZINE 20 MG/ML Vial 10 MG IV ×2 (02:11→12:25)
[2025-03-25] MEDS: 0.9% Saline Lock 10 ML Syringe IV ×4 (02:12→12:25)
[2025-03-25] MEDS: Ipratropium/Albuterol Sulfate 3 ML AMPUL.NEB INHALATION (07:43)
--- NOTE | 2025-03-25 09:37 | PCM.PN.HOSP ---
Reason for Visit Reason for Visit: Diagnoses Anemia, unspecified (03/20/25) Hypomagnesemia (03/20/25) Hypokalemia (03/20/25) Pneumonia, unspecified organism (03/20/25) Unspecified cirrhosis of liver (03/20/25) Nausea (03/20/25) Subjective Subjective Patient seen scheduled to undergo endoscopic evaluation as part of management of her significant anemia Objective Data Objective Data Vital Signs: Vital Signs Temp Pulse Resp BP Pulse Ox O2 Del Method O2 Flow Rate 97.0 F L 97 16 144/70 H 95 Nasal Cannula 2.5 03/25/25 08:32 03/25/25 08:32 03/25/25 08:32 03/25/25 08:32 03/25/25 08:35 03/25/25 08:35 03/25/25 08:35 Oxygen Flow Rate (L/min) 2.5 Oxygen Delivery Method Nasal Cannula Weight: 71.6 kg Body Mass Index (BMI) 30.8 Intake & Output: Intake and Output for Last 24 Hours 03/23/25 03/24/25 03/25/25 23:59 23:59 23:59 Intake Total 1350 / 1450 1020 / 1120 100 / 100 Balance 1350 / 1450 1020 / 1120 100 / 100 Lab / Micro Data 03/24/25 04:58 03/24/25 04:58 Labs: Laboratory Results - last 24 hr 03/21/25 14:18: Crossmatch See Detail Micro: Microbiology 03/21/25 00:38 Sputum, Expectorated/Coughed Gram Stain - Final 03/21/25 00:38 Sputum, Expectorated/Coughed Respiratory Culture - Final Presumptive C albicans 03/20/25 17:55 Urine, Clean Catch Urine Culture - Final Meth. resistant Staph. aureus Mixed Gram Positive Organisms 03/20/25 16:20 Blood Culture (Wb) - Right Wrist Blood Culture - Preliminary No growth in 48 hours. 03/20/25 17:45 Blood Culture (Wb) - Left Wrist Blood Culture - Preliminary No growth in 48 hours. 03/20/25 17:51 Urine, Random Legionella Antigen - Final 03/20/25 17:51 Urine, Random Streptococcus pneumoniae Antigen (M - Final Streptococcus pneumonia Ag 03/20/25 17:50 Mucosa - Nose SARS-CoV-2, Influenza & RSV (PCR) - Final Physical Exam Narrative GENERAL: cooperative HEENT: Atraumatic; normocephalic EYES; Anicteric, Normal Conjunctiva NECK; supple, normal thyroid, RESPIRATORY: Diminished to auscultation with bilateral wheezes CARDIOVASCULAR: Regular S1 S2, GI: soft, normoactive bowel sounds, : No Renal angle tenderness; EXTREMITIES: No edema, no clubbing, MUSCULOSKELETAL: no muscle wasting NEURO: Awake; no lateralizing signs. SKIN: No Rash PSYCH; Flat affect Assessment & Plan Assessment/Plan (1) Pneumonia: (2) Hypomagnesemia: (3) Hypokalemia: PLAN: Plan Patient is a 60-year-old lady who presented with shortness of breath and progressive generalized weakness with some confusion. An assessment of acute metabolic encephalopathy as well as sepsis made admitted to a monitored bed for further management 1. Severe sepsis ? Secondary to pneumococcal pneumonia. Patient had a source of infection on admission with elevated WBC count as well as evidence of endorgan dysfunction lactic acidosis. Treatment was initiated per protocol with IV fluid resuscitation broad-spectrum antibiotic therapy after cultures have been sent. Response to therapy monitored with serial lactic acid level ?03/22/2025 patient WBC count trending down ? 03/23/2025; WBC count down to 9.0 2. Pneumonia - Secondary to streptococcal pneumonia, Strep pneumo Test Urine POSITIVE for pneumococcal pneumonia placed on Levaquin and placed on oxygen titrated to keep Pulse Ox greater than 90 ? 03/23/2025; patient presents complaint of persistent cough and pleuritic chest pain ordered D-dimer if positive will proceed to obtain CTA of the chest ? 03/24/2025; CT of the chest obtained on 03/23/2025 did demonstrate 1. No acute pulmonary embolism. 2. Patchy consolidations and ground-glass opacities, greatest within the left lung. Findings are most compatible with pneumonitis/pneumonia, however pulmonary neoplasm can not be excluded. Follow-up CT chest in 4-6 weeks is recommended to evaluate for resolution. 3. Nodular contour of the liver, which may represent fibrosis/cirrhosis. - Findings discussed with patient. 3. Acute metabolic encephalopathy ? Secondary to pneumonia treating underlying etiology tachycardia 03/22/2025; patient back to baseline 4. Hypokalemia -Corrected per protocol, repeat potassium levels ordered in a.m. for response to therapy ? Patient potassium still remains low additional potassium given 5. Anemia ? Secondary to chronic disorder. As part of patient's evaluation ordered iron studies stool guaiac ferritin B12 level.. With patient hemoglobin being less than 7 an order was given for patient to be transfused 1 unit PRBC. Subsequently monitoring H&H and transfuse if patient becomes symptomatic or hemoglobin falls below 7 ? 03/24/2025;Patient hemoglobin 9.0 this a.m. Given the fact that his stool guaiac came back positive and her hemoglobin having dropped to 6.8 during her hospital stay consult was placed to GI for possible endoscopic evaluation prior to patient being ? 03/25/2025;Patient seen scheduled to undergo endoscopic evaluation as part of management of her significant anemia 6. COPD with acute exacerbation Secondary to above patient was started on bronchodilator treatment systemic steroid as well as antibiotics as discussed above. Placed on supplemental oxygen titrated to keep saturation greater than 90 ? 03/22/2025; patient still remains dyspneic at rest ? 03/25/2025; patient breathing status improved 7. Chronic hypoxic respiratory failure Secondary to COPD patient is on baseline oxygen 3 L continuous 8. Tobacco dependence ? Counseled on cessation, patient has allergy to nicotine nicotine patch was therefore not ordered 9. Hypertension ? Blood pressure controlled, home medications continued with dose adjustment as needed ? 03/23/2025; patient blood pressure was markedly elevated the day prior 188/82 adjusted medications and added hydralazine as needed for systolic blood pressure greater than 160 10. Dyslipidemia ? Patient is on atorvastatin did continue 10. Seizure disorder ? Patient is on camazepam as well as Keppra did continue with home doses 12. Depression with anxiety ? Did continue with home meds 13.DVT prophylaxis ? On enoxaparin 14. Constipation ? Symptom management initiated Time spent in the patient's overall evaluation,decision-making process, review of diagnostic data, adjustment of management, discussion with other providers, nursing nursing and ancillary staff involved in patient's care documentation, 36 Minutes Charges/Coding Visit Charges Inpatient E&M: 23330 Subs Hosp L2
--- NOTE | 2025-03-25 10:05 | CASEMGMT ---
MARY ISAAC received call from Marisol Almanzar, P:[phone] F:[phone]. Jenelle is available for discharge planning needs and requested discharge instructions and summary when available.
[2025-03-25 10:38] LABS: Hematocrit 33.2 % (37-47); Mean Corp Hgb Conc 30.1 g/dL (32-36); Mean Corpuscular Hgb 23.4 pg (27.0-32.0); Mean Corpuscular Volume 77.6 fL (81-99); Mean Platelet Vol. 9.5 fl (6.2-12.0); POSITIVE MORPHOLOGY YES; Platelet Count 354 K/mm3 (150-450); RBC Distribution Width CV 23.9 % (11.6-14.6); RBC Distribution Width SD 58.6 fl (35.1-43.9); Red Blood Count 4.28 M/mm3 (4.2-5.4); White Blood Count 11.3 K/mm3 (4.4-11.0)
[2025-03-25 10:40] LABS: Scan Indicated on CBC? Y/N YES- FLAGS NOTED
[2025-03-25 11:07] LABS: Differential Comment SCANNED
[2025-03-25 11:13] LABS: Anion Gap 11 (5-15); BUN 8 mg/dL (4-19); BUN/Creat Ratio 16.3 RATIO (10-20); Carbon Dioxide 29.4 mmol/L (21.0-32.0); Chloride 96 mmol/L (98-108); EST Glomerular Filtration Rate 106 (>60); Estimated Creatinine Clearance 103.02 ml/min (50-250); Glucose 120 mg/dL (70-99); Magnesium 1.5 mg/dL (1.5-2.2); Potassium 4.2 mmol/L (3.3-5.1); Sodium Level 137 mmol/L (133-145)
[2025-03-25 11:34] LABS: Phosphorus 3.3 mg/dL (2.7-4.5)
[2025-03-25] MEDS: Lactated Ringers 1,000 ML 15 ML IV (14:30)
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
--- NOTE | 2025-03-25 15:16 | PCM.PN.BLA ---
Progress Note Patient's hemoglobin is up to 10.0. She denies any abdominal pain, cramping but still complains of some mild nausea Physical Exam Const alert, oriented x3, no apparent distress and healthy appearing General Appearance: cooperative GI normal to inspection, nondistended, normoactive bowel sounds, soft to palpation, non-tender and non-distended Percussion: normal to percussion Rectal Exam: deferred Assessment & Plan Assessment/Plan (1) Nausea: (2) Anemia: (3) Cirrhosis: PLAN: - 60year-old with history of alcoholic cirrhosis complicated by intermittent ascites, encephalopathy presents with worsening anemia and shortness of breath. She should undergo an upper endoscopy to assess for varices. Her current MELD is low at 10. She has a child Hodgson class a to be. She should be on lactulose 30 cc twice a day, Xifaxan 550 mg 2times a day, check alpha-fetoprotein. Ammonia level pending. n.p.o. past midnight 03/25/2025-patient for upper endoscopy today to evaluate upper GI tract for signs of acute blood loss anemia in the setting of cirrhosis. She was explained alternatives, risk and benefits include not withstanding bleeding, infection, sepsis, perforation, need for emergent urgent . She will have an ASA of 3.
--- NOTE | 2025-03-25 16:13 | OP.CCLET_ITS ---
03/26/2025 Geovani Mancia Re : Upper GI endoscopy procedure for Aisha Ha Allier Gavino This procedure was performed on Tuesday, March 25, 2025. My impressions and recommendations are as follows: Impressions : - No gross lesions in the entire esophagus. - Two bleeding angiodysplastic lesions in the stomach. Treated with a heater probe. - Three bleeding angiodysplastic lesions in the duodenum. Treated with a heater probe. - No specimens collected. Recommendations : - [facility]. - Advance diet as tolerated.
--- NOTE | 2025-03-25 16:13 | OP.EGD_ITS ---
Patient Name: Aisha Ha Procedure Date: 03/25/2025 3:46 PM Date of : 1965 Age: 60 Procedure: Upper GI endoscopy Indications: Iron deficiency anemia, Melena, Recent gastrointestinal bleeding, Suspected upper gastrointestinal bleeding Providers: Cal Bahena DO Medicines: Monitored Anesthesia Care Patient Profile: This is a 60 year old female. Refer to note in patient chart for documentation of history and physical. Patient has symptoms of acute dyspepsia and acute nausea. Complications: No immediate complications. Procedure: Pre-Anesthesia Assessment: - Prior to the procedure, a History and Physical was performed, and patient medications and allergies were reviewed. The patient is competent. The risks and benefits of the procedure and the sedation options and risks were discussed with the patient. All questions were answered and informed consent was obtained. Patient identification and proposed procedure were verified by the physician in the pre-procedure area. Mental Status Examination: alert and oriented. Airway Examination: normal oropharyngeal airway and neck mobility. Respiratory Examination: clear to auscultation. CV Examination: normal. ASA Grade Assessment: II - A patient with mild systemic disease. After reviewing the risks and benefits, the patient was deemed in satisfactory condition to undergo the procedure. The anesthesia plan was to use monitored anesthesia care (MAC). Immediately prior to administration of medications, the patient was re-assessed for adequacy to receive sedatives. The heart rate, respiratory rate, oxygen saturations, blood pressure, adequacy of pulmonary ventilation, and response to care were monitored throughout the procedure. The physical status of the patient was re-assessed after the procedure. After obtaining informed consent, the endoscope was passed under direct vision. Throughout the procedure, the patient's blood pressure, pulse, and oxygen saturations were monitored continuously. The gastroscope was introduced through the mouth, and advanced to the fourth part of the duodenum. Small bowel enteroscopy was deemed necessary. The upper GI endoscopy was accomplished without difficulty. The patient tolerated the procedure well. Scope In: 4:00:28 PM Scope Out: 4:06:13 PM Total Procedure Duration Time 0 hours 5 minutes 45 seconds Findings: No gross lesions were noted in the entire esophagus. Two 5 mm angiodysplastic lesions with bleeding were found on the lesser curvature of the stomach. Coagulation for hemostasis using heater probe was successful. Estimated blood loss was minimal. Three 5 mm angiodysplastic lesions with bleeding were found in the third portion of the duodenum. Coagulation for bleeding prevention using heater probe was successful. Estimated blood loss was minimal. Impression: - No gross lesions in the entire esophagus. - Two bleeding angiodysplastic lesions in the stomach. Treated with a heater probe. - Three bleeding angiodysplastic lesions in the duodenum. Treated with a heater probe. - No specimens collected. Recommendation: - [facility]. - Advance diet as tolerated. - Continue present medications. - No NSAIDs for 6 weeks - Carafate 1 g p.o. twice daily x 8 weeks -Protonix 40 mg p.o. twice daily x 8 weeks - Outpatient capsule endoscopy and colonoscopy to look for other angiodysplastic lesions Procedure Code(s): --- Professional --- 05024, Small intestinal endoscopy, enteroscopy beyond second portion of duodenum, not including ileum; with control of bleeding (eg, injection, bipolar cautery, unipolar cautery, laser, heater probe, stapler, plasma scrubbing machine operator) CPT copyright 2021 [employer]. All rights reserved. The codes documented in this report are preliminary and upon bit grinder review may be revised to meet current compliance requirements. Cal Bahena DO 03/25/2025 4:12:45 PM This report has been signed electronically. Number of Addenda: 1 Note Initiated On: 03/25/2025 3:46 PM Addendum Number: 1 Addendum Date: 03/26/2025 10:35:09 AM The patient had a angiodysplastic lesion that was treated in the gastric body. This area was clipped with a [employer] Clip. Cal Bahena DO 03/26/2025 10:35:38 AM This report has been signed electronically.
--- NOTE | 2025-03-25 16:14 | PCM.POST.ANE ---
Anesthesia: Postop Eval I Current Vital Signs Temperature: 97 F Pulse Rate: 106 Blood Pressure: 132/107 Respiratory Rate: 22 Pulse Ox: 94 Oxygen Delivery Method: Nasal Cannula Oxygen Flow Rate (L/min): 2 Assessment Airway patent: Yes Spontaneous unlabored respirations: Yes Mental status: Awake and Calm nausea: No Vomiting: No Anesthesia Complication: No Fluid Hydration Crystalloid volume administer (ml): 300 Total IV fluid infused: 300 Progress Note Anesthesia document: Postop Eval 1 completed: Yes
--- NOTE | 2025-03-25 16:17 | POSTOPAN2_ITS ---
Anesthesia Postop Eval I Sum Postop Eval Completion status Anesthesia document: Postop Eval 1 completed: Yes Anesthesia Postop Eval I Summary Anesthesia Postop Eval I Summary: Anesthesia Postop Eval I: Assessment Summary Airway patent Yes 03/25/25 16:15 SEA [email or web address] Spontaneous unlabored Yes 03/25/25 16:15 SEA [email or web address] respirations Mental status Awake,Calm 03/25/25 16:15 SEA [email or web address] nausea No 03/25/25 16:15 SEA [email or web address] Vomiting No 03/25/25 16:15 SEA [email or web address] Anesthesia Postop Eval I: Fluid Summary Crystalloid volume administer 300 03/25/25 16:15 SEA [email or web address] (ml) Colloids volume administered ( ml) Blood Product volume administered (ml) Total IV fluid infused 300 03/25/25 16:15 SEA [email or web address] Anesthesia Postop Eval I: Summary Notes Anesthesia Complication No 03/25/25 16:15 SEA [email or web address] Anesthesia Complication Comment: Post-operative progress note Anesthesia: Postop Eval II Evaluation Mental status: Awake and Calm Pain Level: 0 nausea: No Vomiting: No Complications Anesthesia Complication: No
--- NOTE | 2025-03-25 16:17 | PCM.POSTANE2 ---
Anesthesia Postop Eval I Sum Postop Eval Completion status Anesthesia document: Postop Eval 1 completed: Yes Anesthesia Postop Eval I Summary Anesthesia Postop Eval I Summary: Anesthesia Postop Eval I: Assessment Summary Airway patent Yes 03/25/25 16:15 MANAGER [email or web address] Spontaneous unlabored Yes 03/25/25 16:15 MANAGER [email or web address] respirations Mental status Awake,Calm 03/25/25 16:15 MANAGER [email or web address] nausea No 03/25/25 16:15 MANAGER [email or web address] Vomiting No 03/25/25 16:15 MANAGER [email or web address] Anesthesia Postop Eval I: Fluid Summary Crystalloid volume administer 300 03/25/25 16:15 MANAGER BENCH.MDOT (ml) Colloids volume administered ( ml) Blood Product volume administered (ml) Total IV fluid infused 300 03/25/25 16:15 MANAGER [email or web address] Anesthesia Postop Eval I: Summary Notes Anesthesia Complication No 03/25/25 16:15 MANAGER [email or web address] Anesthesia Complication Comment: Post-operative progress note Anesthesia: Postop Eval II Evaluation Mental status: Awake and Calm Pain Level: 0 nausea: No Vomiting: No Complications Anesthesia Complication: No
[2025-03-25] MEDS: Potassium Chloride Oral Tablet 20 MEQ PO (16:46)
[2025-03-25] MEDS: NYSTATIN 500,000 UNIT/5 ML UDC 500000 UNIT PO (16:46)
[2025-03-25] MEDS: Furosemide 40 MG Tablet PO (16:46)
--- NOTE | 2025-03-25 16:52 | DS.PCM_ITS ---
Providers Date of Admission: 03/20/25 Date of Discharge: 03/25/25 Primary Care Physician: Dr. Geovani Mancia MD Consultations 03/24/25 08:28 Consult: Gastroenterology Routine Consulting Provider: [facility] Reason for Consult: Anemia with guaiac positive stools EMERGENT Consult: No MD Notified: Yes Date Notified: 03/24/25 Time Notified: 08:34 Method of Notification: Text Reason For Visit: PNEUMONIA Diagnosis Discharge Diagnosis (1) Nausea: Status: Acute Code(s): R11.0 - Nausea (2) Anemia: Status: Acute Code(s): D64.9 - Anemia, unspecified (3) Cirrhosis: Status: Acute Code(s): K74.60 - Unspecified cirrhosis of liver Plan Patient is a 60-year-old lady who presented with shortness of breath and progressive generalized weakness with some confusion. An assessment of acute metabolic encephalopathy as well as sepsis made admitted to a monitored bed for further management 1. Severe sepsis ? Secondary to pneumococcal pneumonia. Patient had a source of infection on admission with elevated WBC count as well as evidence of endorgan dysfunction lactic acidosis. Treatment was initiated per protocol with IV fluid resuscitation broad-spectrum antibiotic therapy after cultures have been sent. Response to therapy monitored with serial lactic acid level ?03/22/2025 patient WBC count trending down ? 03/23/2025; WBC count down to 9.0 2. Pneumonia - Secondary to streptococcal pneumonia, Strep pneumo Test Urine POSITIVE for pneumococcal pneumonia placed on Levaquin and placed on oxygen titrated to keep Pulse Ox greater than 90 ? 03/23/2025; patient presents complaint of persistent cough and pleuritic chest pain ordered D-dimer if positive will proceed to obtain CTA of the chest ? 03/24/2025; CT of the chest obtained on 03/23/2025 did demonstrate 1. No acute pulmonary embolism. 2. Patchy consolidations and ground-glass opacities, greatest within the left lung. Findings are most compatible with pneumonitis/pneumonia, however pulmonary neoplasm can not be excluded. Follow-up CT chest in 4-6 weeks is recommended to evaluate for resolution. 3. Nodular contour of the liver, which may represent fibrosis/cirrhosis. - Findings discussed with patient. 3. Acute metabolic encephalopathy ? Secondary to pneumonia treating underlying etiology tachycardia 03/22/2025; patient back to baseline 4. Hypokalemia -Corrected per protocol, repeat potassium levels ordered in a.m. for response to therapy ? Patient potassium still remains low additional potassium given 5. Anemia ? Secondary to chronic disorder. As part of patient's evaluation ordered iron studies stool guaiac ferritin B12 level.. With patient hemoglobin being less than 7 an order was given for patient to be transfused 1 unit PRBC. Subsequently monitoring H&H and transfuse if patient becomes symptomatic or hemoglobin falls below 7 ? 03/24/2025;Patient hemoglobin 9.0 this a.m. Given the fact that his stool guaiac came back positive and her hemoglobin having dropped to 6.8 during her hospital stay consult was placed to GI for possible endoscopic evaluation prior to patient being ? 03/25/2025;Patient seen scheduled to undergo endoscopic evaluation as part of management of her significant anemia ? 03/25/2025; 2D echo performed by Dr. Bahena findings and recommendations as below - No gross lesions in the entire esophagus. - Two bleeding angiodysplastic lesions in the stomach. Treated with a heater probe. - Three bleeding angiodysplastic lesions in the duodenum. Treated with a heater probe. - No specimens collected. Recommendations : - [facility]. - Advance diet as tolerated. - Continue present medications. - No NSAIDs for 6 weeks - Carafate 1 g p.o. twice daily x 8 weeks -Protonix 40 mg p.o. twice daily x 8 weeks - Outpatient capsule endoscopy and colonoscopy to look for other angiodysplastic lesions 6. COPD with acute exacerbation Secondary to above patient was started on bronchodilator treatment systemic steroid as well as antibiotics as discussed above. Placed on supplemental oxygen titrated to keep saturation greater than 90 ? 03/22/2025; patient still remains dyspneic at rest ? 03/25/2025; patient breathing status improved 7. Chronic hypoxic respiratory failure Secondary to COPD patient is on baseline oxygen 3 L continuous 8. Tobacco dependence ? Counseled on cessation, patient has allergy to nicotine nicotine patch was therefore not ordered 9. Hypertension ? Blood pressure controlled, home medications continued with dose adjustment as needed ? 03/23/2025; patient blood pressure was markedly elevated the day prior 188/82 adjusted medications and added hydralazine as needed for systolic blood pressure greater than 160 10. Dyslipidemia ? Patient is on atorvastatin did continue 10. Seizure disorder ? Patient is on camazepam as well as Keppra did continue with home doses 12. Depression with anxiety ? Did continue with home meds 13.DVT prophylaxis ? On enoxaparin 14. Constipation ? Symptom management initiated Time spent in the patient's overall evaluation,decision-making process, review of diagnostic data, adjustment of management, discussion with other providers, nursing nursing and ancillary staff involved in patient's care documentation, 36 Minutes Medications at Discharge Home Medications alprazolam 1 mg tablet (Xanax) 1 mg PO QHS PRN anxiety 07/30/20 amlodipine 10 mg tablet 10 mg PO DAILY blood pressure 07/30/20 atorvastatin 80 mg tablet 80 mg PO QHS cholesterol 07/30/20 ipratropium 0.5 mg-albuterol 3 mg (2.5 mg base)/3 mL nebulization soln 3 ml inhalation Q6H PRN shortnes of breath 07/30/20 levetiracetam 500 mg tablet (Keppra) 1,000 mg PO BID seizure 07/30/20 albuterol sulfate 90 mcg/actuation aerosol inhaler (Proventil HFA) 2 puff inhalation Q6H PRN COPD 06/17/21 lisinopril 10 mg tablet 20 mg PO BID blood pressure 06/17/21 carbamazepine 200 mg tablet,extended release,12 hr 400 mg PO BID 03/23/24 duloxetine 30 mg capsule,delayed release 30 mg PO QHS 03/23/24 ondansetron HCl 4 mg tablet 4 mg PO BID PRN nausea/vomiting 03/23/24 multivitamin (Daily Multi-Vitamin tablet) 1 tab PO DAILY #30 tabs 03/26/24 calcium carb-ergocalciferol (vit D2) 250 mg (625 mg)-125 unit tablet 1 tab PO DAILY 04/18/24 nystatin 100,000 unit/gram topical powder 1 applic topical TID 04/18/24 spironolactone 25 mg tablet 25 mg PO DAILY 04/18/24 buspirone 10 mg tablet 10 mg PO TID anxiety 03/20/25 duloxetine 60 mg capsule,delayed release 60 mg PO DAILY 03/20/25 ergocalciferol (vitamin D2) 1,250 mcg (50,000 unit) capsule 1,250 mcg PO QWEEK 03/20/25 perphenazine 4 mg tablet 4 mg PO DAILY 03/20/25 tramadol 50 mg tablet 50 mg PO BID PRN PRN severe pain 03/20/25 umeclidinium 62.5 mcg/actuation blister powder for inhalation (Incruse Ellipta) 1 inh inhalation DAILY 03/20/25 budesonide-formoterol HFA 160 mcg-4.5 mcg/actuation aerosol inhaler (Symbicort) 1 inh inhalation BID #10.2 grams 03/25/25 furosemide 20 mg tablet 20 mg PO BID #120 tabs 03/25/25 guaifenesin 600 mg tablet, extended release 12 hr (Mucinex) 1,200 mg (2 x 600 mg) PO BID #20 tabs 03/25/25 levofloxacin 750 mg tablet 750 mg PO DAILY #5 tabs 03/25/25 nystatin 100,000 unit/mL oral suspension 500,000 unit (5 mL) PO 4X/DAY 14 days #280 mL 03/25/25 pantoprazole 40 mg tablet,delayed release 40 mg PO BID 60 days #120 tabs 03/25/25 potassium chloride 20 mEq tablet,extended release(part/cryst) 20 meq PO DAILY #60 tabs 03/25/25 prednisone 20 mg tablet 20 mg PO BID #14 tabs 03/25/25 sennosides 8.6 mg-docusate sodium 50 mg tablet (Stimulant Laxative Plus) 1 tab PO BID #60 tabs 03/25/25 sucralfate 1 gram tablet (Carafate) 1 g PO BID 8 weeks #112 tabs 03/25/25 Physical Exam Narrative GENERAL: cooperative HEENT: Atraumatic; normocephalic EYES; Anicteric, Normal Conjunctiva NECK; supple, normal thyroid, RESPIRATORY: Diminished to auscultation CARDIOVASCULAR: Regular S1 S2, GI: soft, normoactive bowel sounds, : No Renal angle tenderness; EXTREMITIES: No edema, no clubbing, MUSCULOSKELETAL: no muscle wasting NEURO: Awake; no lateralizing signs. SKIN: No Rash PSYCH; Flat affect Weight / BMI Weight Weight: 71.6 kg Body Mass Index (BMI) 30.9 ABG / Lab / Microbiology Data 03/25/25 10:19 03/25/25 10:19 Laboratory: Laboratory Results - last 24 hr 03/25/25 10:19: WBC 11.3 H, RBC 4.28, Hgb 10.0 L, Hct 33.2 L, MCV 77.6 L, MCH 23.4 L, MCHC 30.1 L, RDW Std Deviation 58.6 H, RDW Coeff of Sanju 23.9 H, Plt Count 354, MPV 9.5, Differential Comment SCANNED, Sodium 137, Potassium 4.2, C hloride 96 L, Carbon Dioxide 29.4, Anion Gap 11, BUN 8, Creatinine 0.50 L, Estim Creat Clear Calc 103.02, Est GFR (MDRD) Non-Af 106, BUN/Creatinine Ratio 16.3, G lucose 120 H, Calcium 9.0, Phosphorus 3.3, Magnesium 1.5 Microbiology: Microbiology 03/21/25 00:38 Sputum, Expectorated/Coughed Gram Stain - Final 03/21/25 00:38 Sputum, Expectorated/Coughed Respiratory Culture - Final Presumptive C albicans 03/20/25 17:55 Urine, Clean Catch Urine Culture - Final Meth. resistant Staph. aureus Mixed Gram Positive Organisms 03/20/25 16:20 Blood Culture (Wb) - Right Wrist Blood Culture - Preliminary No growth in 48 hours. 03/20/25 17:45 Blood Culture (Wb) - Left Wrist Blood Culture - Preliminary No growth in 48 hours. 03/20/25 17:51 Urine, Random Legionella Antigen - Final 03/20/25 17:51 Urine, Random Streptococcus pneumoniae Antigen (M - Final Streptococcus pneumonia Ag 03/20/25 17:50 Mucosa - Nose SARS-CoV-2, Influenza & RSV (PCR) - Final D/C Instructions Discharge Diet: No restrictions Discharge Activity: Return to Normal Activity Call your doctor if you observe: Fever of 101 or Higher, Shortness of breath, Fainting spells and Chest pain DC O2, CPAP, BIPAP Needs Home O2 Discharge instructions: Yes Type of respiratory needs?: Oxygen Oxygen frequency: Continuous Continuous oxygen liters per minute: 3 DC home with Oxygen: Yes Home O2 MD Review: I have reviewed the oxygen testing, and the patient qualifies for home oxygen equipment and portability. The patient is mobile in the home and the community. Meaningful Use Info Meaningful Use Meaningful Use Diagnoses (Choose all that apply): None applicable Ischemic Stroke Statin Dosing Therapy Reference: STATIN DOSE THERAPY REFERENCE: * Patients > 75 years receive moderate or high dose statin therapy. * Patients 75 years or YOUNGER should receive HIGH intensity statin dose unless contraindicated. You will be required to document reason for non-treatment if statin daily dose does not meet guidelines. HIGH DOSE STATIN THERAPY DAILY Atorvastatin > than or = to 40 mg Rosuvastatin > than or = to 20 mg Amlodipine + Atorvastatin > than or = to 2.5/40 mg Ezetimibe + Simvastatin 10/80 mg Simvastatin 80mg Discharge Plan Admission Admit Date/Time: 03/20/25 21:36 Attending Provider: Troy Akins Primary Care Provider: Geovani Mancia Consulting Providers: Jose Douglas Discharge Orders/Prescriptions Prescriptions: New nystatin 100,000 unit/mL Suspension 500,000 unit PO 4X/DAY 14 Days Qty: 280 0RF sennosides-docusate sodium [Stimulant Laxative Plus] 8.6-50 mg Tablet 1 tab PO BID Qty: 60 0RF potassium chloride 20 mEq Tablet,Er Particles/Crystals 20 meq PO DAILY Qty: 60 0RF pantoprazole 40 mg Tablet,Delayed Release (Dr/Ec) 40 mg PO BID 60 Days Qty: 120 0RF levofloxacin 750 mg tablet 750 mg PO DAILY Qty: 5 0RF prednisone 20 mg tablet 20 mg PO BID Qty: 14 0RF guaifenesin [Mucinex] 600 mg tablet extended release 12hr 1,200 mg PO BID Qty: 20 0RF sucralfate [Carafate] 1 gram tablet 1 g PO BID 56 Days Qty: 112 0RF budesonide-formoterol [Symbicort] 160-4.5 mcg/actuation HFA aerosol inhaler 1 inh inhalation BID Qty: 10.2 0RF Continued albuterol sulfate [Proventil HFA] 90 mcg/actuation HFA aerosol inhaler 2 puff inhalation Q6H PRN (Reason: COPD) atorvastatin 80 mg tablet 80 mg PO QHS ipratropium-albuterol 3 ML solution for nebulization 3 ml inhalation Q6H PRN (Reason: shortnes of breath) levetiracetam [Keppra] 500 MG tablet 1,000 mg PO BID amlodipine 10 MG tablet 10 mg PO DAILY alprazolam [Xanax] 1 MG tablet 1 mg PO QHS PRN (Reason: anxiety ) lisinopril 10 mg tablet 20 mg PO BID ondansetron HCl 4 mg tablet 4 mg PO BID PRN (Reason: nausea/vomiting) carbamazepine 200 mg tablet extended release 12 hr 400 mg PO BID duloxetine 30 mg capsule,delayed release(DR/EC) 30 mg PO QHS multivitamin [Daily Multi-Vitamin] Tablet 1 tab PO DAILY Qty: 30 0RF nystatin 100,000 unit/gram powder 1 applic topical TID spironolactone 25 mg tablet 25 mg PO DAILY calcium carbonate-vitamin D2 250 (625)-125 mg-unit tablet 1 tab PO DAILY buspirone 10 mg tablet 10 mg PO TID duloxetine 60 mg capsule,delayed release(DR/EC) 60 mg PO DAILY ergocalciferol (vitamin D2) 1,250 mcg (50,000 unit) capsule 1,250 mcg PO QWEEK tramadol 50 mg tablet 50 mg PO BID PRN PRN (Reason: severe pain) perphenazine 4 mg tablet 4 mg PO DAILY Incruse Ellipta 62.5 mcg/actuation blister with device 1 inh inhalation DAILY Changed furosemide 20 mg tablet 20 mg PO BID Qty: 120 0RF Discontinued omeprazole 40 MG capsule,delayed release(DR/EC) 40 mg PO BID Referrals / Follow Up: Geovani Mancia MD [Primary Care Provider] - Within 2 Weeks Cal Bahena DO [Med Staff - Active Staff] - Within 1 Month Disposition Disposition (needs filled in before D/C Order can be placed): Home, Self Care Charges/Coding Visit Charges Inpatient E&M: 89941 Disch Hosp >30min
== END 2025-03-25 17:26 | disposition home or self-care (01) | DRG 139 ==
LOC: ED 21:26 → PCU 22:32
PROVIDERS: Internal Medicine Gastroenterology; Admitting Provider Family Medicine; Emergency Provider Emergency Medicine; PCP Family Medicine; Visit Provider Internal Medicine
PROC: 0DJ08ZZ Inspection of Upper Intestinal Tract, Via Natural or Artificial Opening Endoscopic (ICD-10-PCS; CPT 43235; principal; 2025-03-25 15:25)
DX: J13 Pneumonia due to Streptococcus pneumoniae (principal); A40.3 Sepsis due to Streptococcus pneumoniae; G93.41 Metabolic encephalopathy; R65.20 Severe sepsis without septic shock; J44.0 Chronic obstructive pulmonary disease with (acute) lower respiratory infection; D50.9 Iron deficiency anemia, unspecified; F17.210 Nicotine dependence, cigarettes, uncomplicated; J44.1 Chronic obstructive pulmonary disease with (acute) exacerbation; K74.60 Unspecified cirrhosis of liver; G40.909 Epilepsy, unspecified, not intractable, without status epilepticus; I10 Essential (primary) hypertension; F32.A Depression, unspecified; J96.11 Chronic respiratory failure with hypoxia; E83.42 Hypomagnesemia; E87.6 Hypokalemia; F41.9 Anxiety disorder, unspecified; K59.00 Constipation, unspecified; K31.89 Other diseases of stomach and duodenum; Z79.51 Long term (current) use of inhaled steroids; Z79.899 Other long term (current) drug therapy
CPT/HCPCS: 36415; 36600; 71046; 71275; 80048; 80053; 81001; 82140; 82728; 82803; 83540; 83550; 83605; 83735; 83880; 84100; 84484; 85025; 85027; 85379; 85610; 85730; 86850; 86870; 86900; 86901; 86902; 86905; 86920; 87040; 87070; 87077; 87086; 87088; 87186; 87205; 87449; 87631; 93005; 94640; 94668; 99285; 99406; C1889; P9016; Q9967; A4216; J1938; J2916

== ENCOUNTER → 2025-05-20 | Outpatient (CLI) | payer MEDICAID, SELFPAY ==
[2025-05-20 12:31] LABS: Hematocrit 32.3 % (37-47); Hemoglobin 10.1 g/dL (12.0-15.0); Immature Granulocytes Count 0.020 X10^3/uL (0.0-0.0); Immature Reticulocyte Fraction 16.30 % (3.00-15.90); Mean Corp Hgb Conc 31.3 g/dL (32-36); Mean Corpuscular Volume 84.1 fL (81-99); Mean Platelet Vol. 9.5 fl (6.2-12.0); NRBC Flagged by Analyzer 0 % (0-5); POSITIVE MORPHOLOGY YES; Platelet Count 209 K/mm3 (150-450); RBC Distribution Width CV 21.2 % (11.6-14.6); RBC Distribution Width SD 65.2 fl (35.1-43.9); Red Blood Count 3.84 M/mm3 (4.2-5.4); Reticulocyte Count 1.02 % (0.5-1.5); White Blood Count 6.0 K/mm3 (4.4-11.0)
[2025-05-20 13:04] LABS: Ferritin 17 ng/mL (22-378); Iron 26 ug/dL (50-170); LDH 244 U/L (84-246)
[2025-05-20 13:33] LABS: Differential Indicated SCAN CRITERIA MET
[2025-05-20 13:41] LABS: Anisocytosis 1+
[2025-05-22 11:08] LABS: Albumin 3.2 g/dL (2.9-4.4); Gamma Globulin 2.2 g/dL (0.4-1.8); IMMUNOFIXATION RESULT,S Comment: (.); Immunoglobulin A 184 mg/dL (87-352); Immunoglobulin G 1863 mg/dL (586-1602); Immunoglobulin M 763 mg/dL (26-217); PROEL- TOTAL PROTEIN 7.6 g/dL (6.0-8.5); Transferrin 348 mg/dL (192-364)
== END | disposition home or self-care (01) ==
LOC: LAB 11:51
PROVIDERS: PCP Family Medicine; Referring Provider Internal Medicine Gastroenterology; Visit Provider Internal Medicine Gastroenterology
DX: D64.9 Anemia, unspecified (principal)
CPT/HCPCS: 36415; 82728; 82784; 83540; 83615; 84165; 84466; 85025; 85045; 86334

== ENCOUNTER 2025-07-21 12:39 | Emergency (ER) | payer MEDICAID, SELFPAY ==
[2025-07-21] VITALS (10 sets, daily range): BP systolic 136–159; BP diastolic 49–67; PULSE 66–83; RESP 16–20; TEMP 36.1–36.8; O2SAT 95–98
--- NOTE | 2025-07-21 13:34 | RAD_ITS ---
PROCEDURE: CHEST PA AND LATERAL 07/21/2025 REASON FOR EXAM: COPD TECHNIQUE: Procedure Code: RADCXR Modality: DX Procedure: CHEST PA AND LATERAL COMPARISON: February 2025. FINDINGS: Hardware and support lines: None. Heart: Negative. Lungs: Left lung is now clear. Negative for infiltrates, or pulmonary edema. Pleura: Elevated right hemidiaphragm. No pleural effusion. Mediastinum and aorta: Negative for hilar adenopathy. Mildly tortuous thoracic aorta. Bones: Age-appropriate degenerative changes of the spine. Other: Remainder of the exam negative. RAD/Chest PA and Lateral IMPRESSION: Elevated right hemidiaphragm. Possibly new. Resolution left-sided pneumonia. Reading Location: [place] [id number]
--- NOTE | 2025-07-21 13:34 | EKG12_ITS ---
Test Reason : Blood Pressure : */* mmHG Vent. Rate : 65 BPM Atrial Rate : 65 BPM P-R Int : 182 ms QRS Dur : 84 ms QT Int : 410 ms P-R-T Axes : 71 31 50 degrees QTcB Int : 426 ms Normal sinus rhythm Normal ECG Confirmed by MILLER KENT, CARLOS ([id number]), advertising editor HELADIO MARIN ([id number]) on 07/22/2025 8:07:29 AM Referred By: Confirmed By: CARLOS BHATT MD
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
[2025-07-21 14:05] LABS: Hematocrit 33.3 % (37-47); Hemoglobin 10.5 g/dL (12.0-15.0); Immature Granulocytes Count 0.020 X10^3/uL (0.0-0.0); Mean Corp Hgb Conc 31.5 g/dL (32-36); Mean Corpuscular Volume 87.4 fL (81-99); Mean Platelet Vol. 9.9 fl (6.2-12.0); NRBC Flagged by Analyzer 0 % (0-5); Platelet Count 240 K/mm3 (150-450); RBC Distribution Width CV 18.3 % (11.6-14.6); RBC Distribution Width SD 57.1 fl (35.1-43.9); Red Blood Count 3.81 M/mm3 (4.2-5.4); White Blood Count 6.8 K/mm3 (4.4-11.0)
[2025-07-21 15:09] LABS: Anion Gap 13 (5-15); BUN 8 mg/dL (4-19); BUN/Creat Ratio 11.7 RATIO (10-20); Calcium,Total 8.9 mg/dL (7.6-11.0); Carbon Dioxide 25.7 mmol/L (21.0-32.0); Chloride 96 mmol/L (98-108); Glucose 91 mg/dL (70-99); Potassium 3.8 mmol/L (3.3-5.1); Troponin T High Sensitivity 10 ng/L (<=14)
== END 2025-07-21 17:00 | disposition home or self-care (01) ==
PROVIDERS: Emergency Provider Emergency Medicine; PCP Family Medicine; Visit Provider Emergency Medicine
DX: J44.1 Chronic obstructive pulmonary disease with (acute) exacerbation (principal); I10 Essential (primary) hypertension; F17.210 Nicotine dependence, cigarettes, uncomplicated; Z79.51 Long term (current) use of inhaled steroids; Z99.81 Dependence on supplemental oxygen; Z79.899 Other long term (current) drug therapy
CPT/HCPCS: 71046; 80048; 84484; 85025; 87631; 93005; 94640; 96374; 96375; 99285; A4216; J2405

== ENCOUNTER → 2025-09-04 | Outpatient (CLI) | payer MEDICAID, SELFPAY ==
--- NOTE | 2025-09-04 10:32 | MRI_ITS ---
PROCEDURE: MRI ABD WITH AND W/O CONTRAST 09/04/2025 REASON FOR EXAM: CIRRHOSIS TECHNIQUE: Procedure Code: [id number] Modality: MR Procedure: MRI ABD WITH AND W/O CONTRAST Multiplanar and multisequence images were obtained. CONTRAST: Clariscan VOLUME: 15 mL COMPARISON: CT abdomen and pelvis with IV contrast, 03/23/2024. FINDINGS: Liver: The liver has an irregular margin n/a minimally heterogeneous intensity on all pulse sequences, consistent with cirrhosis. There are no distinct nodules or abnormal contrast enhancement. Biliary: The gallbladder is surgically absent. There is no abnormal intra or extrahepatic biliary ductal dilatation. Pancreas: Normal. Spleen: There is borderline splenomegaly with the spleen measuring 12.3 cm in axial dimension. There is a benign splenule in the splenic hilum. Adrenals: Normal. Kidneys: There is a 5 mm in diameter simple cortical cyst in the upper pole of the left kidney, Bosniak 1. The kidneys are otherwise unremarkable. Peritoneum / Retroperitoneum: There are no abnormal intra or retroperitoneal masses or fluid collections. There is no ascites. Lymph Nodes: There is no significant mesenteric or retroperitoneal lymphadenopathy. Major Vessels: No significant abnormality. Bones: Status post posterior lumbar interbody fusion, L4 through S1. MRI/MRI Abd WITH and W/O Contrast IMPRESSION: 1. Appearance of the liver is consistent with a ascites. There are no abnorma l hepatic nodules or masses. There is no abnormal hepatic contrast enhancement. 2. Borderline splenomegaly. 3. There is no ascites. 4. Other findings as noted. Reading Location: [place] [id number]
== END | disposition home or self-care (01) ==
LOC: MRI 10:15
PROVIDERS: PCP Family Medicine; Referring Provider Internal Medicine Gastroenterology; Visit Provider Internal Medicine Gastroenterology
DX: K74.60 Unspecified cirrhosis of liver (principal)
CPT/HCPCS: 74183; A9575; A4216

== ENCOUNTER 2025-10-13 06:33 | Emergency (ER) | payer MEDICAID, SELFPAY ==
[2025-10-13 06:34] VITALS: BP 106/71; PULSE 93; RESP 17; TEMP 36.9; O2SAT 96; BMI 29.2
--- NOTE | 2025-10-13 06:49 | RAD_ITS ---
PROCEDURE: CHEST 1 VIEW (PORTABLE) 10/13/2025 REASON FOR EXAM: COUGH, SOB, COPD Recent fall TECHNIQUE: Frontal view of the chest. COMPARISON: July 21, 2025, March 23, 2025 FINDINGS: Hardware: Lower cervical spine fusion hardware. Heart: The heart size is normal. Lungs: Left suprahilar atelectasis or scarring. Prior CT from March showed some consolidation associated with bronchiectasis. Otherwise, the lungs are clear. Bones: Degenerative changes are identified within the thoracic spine. No fracture seen. RAD/Chest 1 View (Portable) IMPRESSION: No acute cardiopulmonary process Reading Location: [id number]
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
--- NOTE | 2025-10-13 06:55 | RAD_ITS ---
PROCEDURE: WRIST MIN 3 VIEWS 10/13/2025 REASON FOR EXAM: PAIN/INJURY TECHNIQUE: Procedure Code: RADWR Modality: DX Procedure: WRIST MIN 3 VIEWS Laterality: Left COMPARISON: None FINDINGS: Bones: Decreased bone mineralization. Cortical disruption is seen at the articular surface of the distal radius with some mild impaction. There is also fracture line at the lateral cortex. No significant displacement or angulation Joints: Minimal degenerative change at the lateral wrist. Soft tissues: Soft tissue swelling. Other: No foreign body RAD/Wrist min 3 Views IMPRESSION: Minimally comminuted impacted fracture of the distal radius extending to the ra diocarpal joint. No displacement or angulation. Reading Location: [facility]
--- OUTSIDE RECORDS SUMMARY | 2025-10-13 07:11 | XMS RPT_ITS | CCD ---
Author Organization [facility] Care Team Providers Care [place] Man Name Role Phone Arie Salgado DO Unavailable Jeffrey Correa Primary Care Provider Geovani Gay Primary Care Provider Pcp, No Primary Care Provider UnavailGeovani Alegre MD Primary Care Provider Dr. Geovani Gay Primary Care Provider Dr. Mo Sanchez Attending Provider Dr. Mo Sanchez Referring Provider Dr. Mo Sanchez Other Provider Ephraim OVEN OPERATOR, OVEN OPERATOR-C Vonda Attending Provider Ephraim OVEN OPERATOR, OVEN OPERATOR-C Vonda Referring Provider [phone] Divine HORAN PA-Jeannie Amin Attending Provider Dr. Manuel Solano Referring Provider Dr. Jez Smalls Attending Provider Dr. Geovani Gay Referring Provider Dr. Manuel Solano Attending Provider Geovani Gay MD Primary Care Provider Geovani Gay MD Primary Care Provider PROVIDER, UNKNOWN Referring Unavailable Linda Gonzales Attending Unavailable Geovani Gay Primary Care Unavailable PROVIDER, UNKNOWN Referring Unavailable Linda Gonzales Attending Unavailable Geovani Gay Primary Care Unavailable PROVIDER, UNKNOWN Referring Unavailable Bolivar Larsen Attending Unavailable Geovani Gay Primary Care Unavailable PROVIDER, UNKNOWN Referring Unavailable Bolivar Larsen Attending Unavailable Geovani Gay Primary Care Unavailable PROVIDER, UNKNOWN Referring Unavailable Bolivar Larsen Attending Unavailable Geovani Gay Primary Care Unavailable Geovani Gay Primary Care Unavailable Geovani Gay Attending Unavailable PROVIDER, UNKNOWN Referring Unavailable Dr. Geovani Gay Primary Care Provider Dr. Geovani Gay Referring Provider Ila OVEN OPERATOR, JEAN CARLOSC Elina Sales Attending Provider Dr. Cal Bahena Attending Provider [phone] Dr. Cal Bahena Other Provider Geovani Gay MD Primary Care Provider Geovani Gay MD Primary Care Provider PHYSICIAN, NONE Attending Unavailable PHYSICIAN, NONE Primary Care Unavailable Victor Hugo KENT, Dr. Olivo Primary Care Provider Dr. Bradley Pichardo DO Emergency Provider Misael KENT, Dr. Jose Gamboa Admit Provider Misael KENT, Dr. Jose Gamboa Attending Provider Misael KENT, Dr. Jose Gamboa Other Provider Dr. Troy Akins MD Attending Provider Bianka Douglas MD, Dr. Jose Gamboa Attending Provider Mable KENT, Dr. Simmons Other Provider Unavailable Shruti MANRIQUE, Dr. Mccall Attending Provider Dr. Luiz Weber MD Attending Provider Tia KENT, Dr. Dee Referring Provider Dr. Troy Akins MD Referring Provider Bianka Gay MD, Dr. Olivo Referring Provider Dr. Cal Bahena DO Referring Provider Cale KENT, Dr. Lloyd Attending Provider [phone] Cale KENT, Dr. Lloyd Referring Provider [phone] Victor Hugo KENT, Dr. Olivo Primary Care Physician Dr. Bradley Pichardo DO Emergency Department Physic dante Misael KENT, Dr. Jose Gamboa Admitting Physician Misael KENT, Dr. Jose Gamboa Nurse Practitioner Mable KENT, Dr. Simmons Attending Physician Unavail able Mable KENT, Dr. Simmons Nurse Practitioner Unavailarsenio Akins MD, Dr. Simmons Referring Provider Unavaila claudette Bahena DO, Dr. Mccall Attending Physician [phone] Cale KENT, Dr. Lloyd Attending Physician [phone] Cale KENT, Dr. Lloyd Referring Provider Haris KENT, Dr. Hernandez Emergency Department Physici an VICTOR HUGO, GEOVANI Primary Care Unavailable GENA JONES Attending Unavailable VICTOR HUGO, GEOVANI Attending Unavailable VICTOR HUGO, GEOVANI Primary Care Unavailable VICTOR HUGO, GEOVANI Attending Unavailable VICTOR HUGO, GEOVANI Primary Care Unavailable VICTOR HUGO, GEOVANI Primary Care Unavailable VICTOR HUGO, GEOVANI Attending Unavailable VICTOR HUGO, GEOVANI Referring Unavailable VICTOR HUGO, GEOVANI Primary Care Unavailable LINDA GONZALES Attending Unavailable VICTOR HUGO, GEOVANI Primary Care Unavailable LINDA GONZALES Attending Unavailable VICTOR HUGO, GEOVANI Attending Unavailable VICTOR HUGO, GEOVANI Primary Care Unavailable ELINA EDWARDS Attending Unavailable VICTOR HUGO, GEOVANI Primary Care Unavailable VICTOR HUGO, GEOVANI Attending Unavailable VICTOR HUGO, GEOVANI Primary Care Unavailable Victor Hugo, Geovani Primary Care Unavailable David Carballo Attending Unavailable Victor Hugo, Geovani Referring Unavailable Friend, Cal Attending Unavailable Victor Hugo, Geovani Primary Care Unavailable FriendCal Attending Unavailable Victor Hugo, Geovani Primary Care Unavailable Victor Hugo, Geovani Referring Unavailable Victor Hugo, Geovani Primary Care Unavailable Jose Douglas Admitting Unavailable Jose Douglas Consulting Unavailable Troy Akins Attending Unavailable Troy Akins Consulting Unavailable Cal Bahena Attending Unavailable Troy Akins Referring Unavailable Victor Hugo, Geovani Primary Care Unavailable Luiz Weber Attending Unavailable Luiz Weber Referring Unavailable Victor Hugo, Geovani Primary Care Unavailable Jose Douglas Attending Unavailable Victor Hugo, Geovani Primary Care Unavailable Jose Douglas Admitting Unavailable Jose Douglas Consulting Unavailable Troy Akins Attending Unavailable Geovani Gay Primary Care Unavailable Gabino Madsen Attending Unavailable Geovani Gay Referring Unavailable Geovani Gay Primary Care Unavailable Gabino Madsen Referring Unavailable Gabino Madsen Attending Unavailable Friend, Cal Referring Unavailable Friend, Cal Attending Unavailable Victor HugoGeovani Primary Care Unavailable Friend, Cal Referring Unavailable Friend, Cal Attending Unavailable Victor HugoGeovani Primary Care Unavailable Allergies Allergy Classification Reported Allergen(s) Allergy Type Date of Onset Reaction(s) Facility Adhesive Tape (2 sources) Adhesive Tape Substance Allergy 01-03-20 23 [facility] Adrenergic Agonists (2 sources) Pseudoephedrine Drug Allergy 04-05-20 17 [facility] Aminoketones (2 sources) buPROPion Drug Allergy 09-18-20 16 [facility] Anti-Epileptic Agents (2 sources) gabapentin Drug Allergy 12-04-19 [facility] Cephalosporins (antibiotic) (2 sources) Cefuroxime Drug Allergy 09-18-20 16 Hives [facility] cyclobenzaprine (2 sources) cyclobenzaprine Drug Allergy 09-18-20 16 [facility] Doxepin (2 sources) Doxepin Drug Allergy 09-18-20 16 [facility] Nicotine (2 sources) Nicotine Drug Allergy 12-04-19 [facility] Opioid Agonists (2 sources) Codeine Drug Allergy 09-18-20 16 Nausea And Vomiting [facility] Psyllium (2 sources) Psyllium Drug Allergy 04-10-20 [facility] Serotonin Reuptake Inhibitors (SSRIs) (2 sources) FLUoxetine Drug Allergy 12-04-19 [facility] (1 source) buPROPion Drug Allergy 02-07-20 14 seizures [facility] Work Phone: (1 source) cefuroxime Drug Allergy 02-07-20 14 rash [facility] Work Phone: (1 source) codeine Drug Allergy 02-07-20 14 nausea/vomitin g, stomach pain [facility] Work Phone: (1 source) cyclobenzaprine Drug Allergy 02-07-20 14 seizures [facility] Work Phone: (1 source) FLUoxetine Drug Allergy 02-07-20 14 high anxiety [facility] Work Phone: (20 sources) gabapentin Drug Allergy 02-07-20 14 poor concentration, drowsiness, INCREASED ANXIETY, CONFUSION [facility] Work Phone: Comment on above: drowsiness (1 source) pseudoephedrine Drug Allergy 04-05-20 17 seizures [facility] Work Phone: (1 source) risperiDONE Drug Allergy 02-07-20 14 seizures [facility] Work Phone: (1 source) TENS UNIT PATCHES drug allergy 02-07-20 14 rash [facility] Work Phone: (20 sources) buPROPion Drug Allergy 09-18-20 16 SEIZURES [place] Comment on above: SEIZURES (20 sources) Cefuroxime Drug Allergy 09-18-20 16 H[place] (20 sources) Codeine Drug Allergy 09-18-20 16 Other (See Comments), Nausea And Vomiting [place] (20 sources) cyclobenzaprine Drug Allergy 09-18-20 16 SEIZURES [place] Comment on above: SEIZURES (20 sources) Doxepin Drug Allergy 09-18-20 16 [place] (20 sources) Risperidone And Related Propensity to adverse reactions to drug 09-18-20 16 [place] (20 sources) FLUoxetine Drug Allergy 12-04-19 20 INCREASED ANXIETY [facility] Work Phone: (20 sources) Nicotine Drug Allergy 12-04-19 20 Itching [facility] Work Phone: (20 sources) Pseudoephedrine Drug Allergy 04-05-20 17 [place] (20 sources) Psyllium Drug Allergy 04-10-20 20 [place] (3 sources) Other Propensity to adverse reactions 12-10-19 20 Rash [place] (9 sources) risperiDONE Drug Allergy 11-03-19 SEIZURES [facility] Comment on above: SEIZURES (1 source) TENS unit patch Allergy to substance 11-03-19 [facility] Work Phone: (9 sources) Adhesive agent; Translations: [adhesive] Allergy to substance 01-03-20 [facility] Comment on above: TENS UNIT PATCH (20 sources) Adhesive Tape Drug Allergy 01-03-20 [facility] (20 sources) Wound Dressing Adhesive Drug Allergy 01-03-20 [facility] (6 sources) Risperidone And Paliperidone Drug Intolerance 09-18-20 [facility] (1 source) buPROPion Drug Allergy 07-28-20 [facility] (1 source) Cefuroxime Drug Allergy 07-28-20 [facility] (1 source) Codeine Drug Allergy 07-28-20 [facility] (1 source) cyclobenzaprine Drug Allergy 07-28-20 [facility] (1 source) FLUoxetine Drug Allergy 07-28-20 [facility] (1 source) gabapentin Drug Allergy 07-28-20 [facility] (1 source) Nicotine Drug Allergy 07-28-20 [facility] (1 source) risperiDONE Drug Allergy 07-28-20 [facility] NEGATED: Highlighted row has been ruled out! (6 sources) Other Propensity to adverse reactions 12-10-19 [facility] Medications Current Medications Medication Drug Class(es) Dates Sig (Normalized) Sig (Original) [id number] 200 actuat albuterol 0.09 mg/actuat metered dose inhaler (20 sources) beta2-Adrenergic Agonist Start: 05-23-2025 take 2 puff(s) by inhalation four times daily as needed for wheezing albuterol 108 (90 Base) MCG/ACT inhaler Indications: Chronic obstructive pulmonary disease, unspecified (HCC) INHALE 2 PUFFS 4 TIMES DAILY NEEDED FOR WHEEZING OR SHORTNESS OF BREATH. 18 g 3 05/23/2025 Active Start: 12-18-2023 End: 12-12-2024 take 2 puff(s) by inhalation four times daily as needed for wheezing albuterol 108 (90 Base) MCG/ACT inhaler Indications: Chronic obstructive pulmonary disease, unspecified (HCC) INHALE 2 PUFFS 4 TIMES DAILY NEEDED FOR WHEEZING OR SHORTNESS OF BREATH. 18 each 3 12/12/2024 Active Start: 03-07-2023 End: 12-18-2023 take 2 puff(s) by inhalation four times daily as needed for wheezing Ventolin HFA 108 (90 Base) MCG/ACT inhaler Indications: Chronic obstructive pulmonary disease, unspecified (HCC) INHALE 2 PUFFS INTO THE LUNGS 4 TIMES DAILY NEEDED FOR WHEEZING OR SHORTNESS OF BREATH. 18 each 3 09/11/2023 12/18/2023 Discontinued Start: 07-22-2022 End: 10-27-2022 take 2 puff(s) by inhalation four times daily as needed for wheezing albuterol 108 (90 Base) MCG/ACT inhaler Indications: Chronic obstructive pulmonary disease, unspecified (HCC) INHALE 2 PUFFS INTO THE LUNGS 4 TIMES DAILY NEEDED FOR WHEEZING OR SHORTNESS OF BREATH. 18 each 3 10/27/2022 Active Start: 04-05-2022 take 2 puff(s) by in halation four times daily as needed for wheezing PROAIR HFA 108 (90 Base) MCG/ACT inhaler INHALE 2 PUFFS INTO THE LUNGS 4 TIMES DAILY NEEDED FOR WHEEZING OR SHORTNESS OF BREATH. 8.5 each 3 04/05/2022 Active Start: 06-17-2021 Albuterol Sulf ate (Proventil Hfa) 90 mcg/actuation HFA aerosol inhaler Active 2 NMA INHALATION EVERY 6 HOURS as needed for COPD June 17, 2021 12:00am Complies with drug therapy Start: 06-17-2021 take 1 puff(s) by in halation every six hours Albuterol Sulfate (Proventil Hfa) 90 mcg/actuation HFA aerosol inhaler Active 2 PUFF INHALATION EVERY 6 HOURS June 17, 2021 12:00am Start: 12-04-2019 albuterol (PRO VENTIL) nebulizer solution 2.5 mg Start: 02-06-2014 PROVENTIL HFA 108 (90 Base) MCG/ACT AERS four times daily as needed ALBUTEROL SULFATE [id number] Chantelle Roche Albuterol Sulfat e (PROVENTIL HFA IN) Inhale into the lungs 4 times daily as needed 0 Active albuterol 0.833 mg/ml / ipratropium bromide 0.167 mg/ml inhalation solution (20 sources) Anticholinergic, beta2-Adrenergic Agonist Start: 01-09-2025 End: 01-09-2025 ipratropium-albuterol (Duo-Neb) 0.5-2.5 mg/3 mL nebulizer solution 3 mL Start: 01-09-2025 End: 01-09-2025 3 mL, Nebulization, Once, On Ana Lilia 01/09/25 at 1430, For 1 dose Start: 01-09-2025 End: 01-09-2026 Ipratropium-Albuterol 0.5 mg -3 mg(2.5 mg base)/3 mL solution for nebulization Active 3 mL continuous nebulization 4 TIMES DAILY NEEDED as needed for wheezing/sob July 21, 2025 12:00am Complies with drug therapy Start: 07-30-2020 End: 07-21-2025 take 1 mL by inhalation every six hours as needed Ipratropium-Albuterol 3 ML solution for nebulization Discontinued 3 mL INHALATION EVERY 6 HOURS as needed for shortnes of breath July 30, 2020 12:00am July 21, 2025 12:50pm Start: 07-30-2020 End: 05-29-2024 take 3 mL by inhalation every six hours as needed ipratropium-albuterol (Duo-Neb) 0.5-2.5 mg/3 mL nebulizer solution Indications: Chronic obstructive pulmonary disease, unspecified COPD type (HCC) INHALE 3 MLS INTO THE LUNGS EVERY 6 HOURS NEEDED FOR SHORTNESS OF BREATH 360 mL 1 10/27/2022 Active ALPRAZolam 1 mg oral tablet (20 sources) Benzodiazepine Start: 07-30-2020 take 1 tablet by mouth at bedtime Alprazolam (Xanax) 1 MG tablet Active 1 mg PO AT BEDTIME July 30, 2020 12:00am anxiety Complies with drug therapy Start: 02-06-2014 XANAX 1 MG TAB S three times daily ALPRAZOLAM [id number] Chantelle Roche take 1 tablet by maria a th every twenty-four hours as needed ALPRAZolam (Xanax) 1 MG tablet Take 1 mg by mouth every 24 hours as needed. Active take 1 tablet by maria a th once daily as needed for sleep ALPRAZolam (XANAX) 1 MG tablet Take 1 mg by mouth nightly as needed for Sleep. 0 Active amLODIPine 10 mg oral tablet (20 sources) Dihydropyridine Calcium Channel Nelly Start: 07-30-2020 End: 06-13-2024 take 1 tablet by mouth once daily Amlodipine 10 MG tablet Active 10 mg PO DAILY July 30, 2020 12:00am blood pressure Complies with drug therapy Start: 05-27-2020 take 1 tablet by maria a th once daily amLODIPine (NORVASC) 10 MG tablet Take 1 tablet by mouth daily 90 tablet 1 05/27/2020 Active Start: 12-10-2019 take 1 tablet by maria a th once daily amLODIPine (NORVASC) 10 MG tablet Take 1 tablet by mouth daily 90 tablet 1 12/10/2019 Active Start: 04-05-2017 AMLODIPINE BES YLATE 10 MG TABS 1 tablet daily AMLODIPINE BESYLATE [id number] Maxine Moya LPN amoxicillin 875 mg / clavulanate 125 mg oral tablet (9 sources) Penicillin-class Antibacterial Start: 04-07-2025 End: 04-17-2025 take 1 tablet by mouth twice daily amoxicillin-clavulanate (Augmentin) 875-125 MG tablet Indications: Pneumonia due to infectious organism, unspecified laterality, unspecified part of lung Take 1 tablet by mouth 2 times daily for 10 days. 20 tablet 04/07/2025 04/17/2025 Active Start: 01-09-2025 End: 01-16-2025 take 1 tablet by mouth twice daily amoxicillin-clavulanate (Augmentin) 875-125 MG tablet Indications: Acute non-recurrent frontal sinusitis Take 1 tablet by mouth 2 times daily for 7 days. 14 tablet 01/09/2025 01/16/2025 Active Start: 08-14-2024 End: 08-24-2024 take 1 tablet by mouth twice daily amoxicillin-clavulanate (Augmentin) 875-125 MG tablet Indications: Sinobronchitis Take 1 tablet by mouth 2 times daily for 10 days. 20 tablet 08/14/2024 08/24/2024 Active Start: 10-05-2023 End: 10-15-2023 take 1 tablet by mouth twice daily amoxicillin-clavulanate (Augmentin) 875-125 MG tablet Take 1 tablet by mouth 2 times daily for 10 days. 20 tablet 0 10/05/2023 10/15/2023 Active atorvastatin 80 mg oral tablet (20 sources) HMG-CoA Reductase Inhibitor Start: 07-30-2020 End: 10-21-2024 take 1 tablet by mouth at bedtime Atorvastatin 80 mg tablet Active 80 mg PO AT BEDTIME July 30, 2020 12:00am cholesterol Complies with drug therapy Start: 04-27-2020 take 1 tablet by maria a th once daily atorvastatin (LIPITOR) 80 MG tablet Take 1 tablet by mouth daily 90 tablet 1 04/27/2020 Active Start: 04-05-2017 LIPITOR 80 MG TABS 1 tablet daily ATORVASTATIN CALCIUM [id number] Maxine Stanleyro MERINGUER azithromycin 250 mg oral tablet (14 sources) Macrolide Antimicrobial Start: 07-21-2025 take 2 tablets b y mouth once daily Start: 05-07-2025 End: 05-12-2025 take 1 tablet by mouth once daily azithromycin (Zithromax Z-Joselo) 250 MG tablet Take 1 tablet (250 mg) by mouth daily for 5 days. 6 tablet 05/07/2025 05/12/2025 Active Start: 03-04-2025 End: 04-07-2025 azithromycin (Zithromax Z-Pa k) 250 MG tablet Take as directed 6 tablet 03/04/2025 04/07/2025 Discontinued (Therapy completed) Start: 05-21-2021 End: 06-17-2021 take 2-5 tablets by mouth once daily Azithromycin (Zithromax Z-Joselo) 250 mg tablet Discontinued 0 PO .COMPLEX 6 0 May 21, 2021 12:00am June 17, 2021 12:56pm take 500 mg today (day 1), then 250 mg for 4 days (days 2-5) 60 actuat budesonide 0.16 mg/actuat / formoterol fumarate 0.0045 mg/actuat metered dose inhaler (20 sources) Corticosteroid, beta2-Adrenergic Agonist Start: 03-25-2025 take 1 puff(s) by inhalation twice daily Symbicort 160-4.5 MCG/ACT inhaler Inhale 1 puff 2 times daily. 03/25/2025 Active Start: 03-25-2025 Budesonide-For moterol (Symbicort) 160-4.5 mcg/actuation HFA aerosol inhaler Active 1 NMA INHALATION TWICE A DAY 10.2 0 March 25, 2025 12:00am Complies with drug therapy Start: 03-25-2025 Budesonide-For moterol (Symbicort) 160-4.5 mcg/actuation HFA aerosol inhaler Active 1 NMA INHALATION TWICE A DAY 10.2 0 March 25, 2025 12:00am Start: 03-25-2025 Budesonide-For moterol (Symbicort) 160-4.5 mcg/actuation HFA aerosol inhaler Active 1 NMA INHALATION TWICE A DAY 10.2 March 25, 2025 12:00am Start: 12-22-2022 End: 05-29-2024 take 2 puff(s) by inhalation twice daily Symbicort 160-4.5 MCG/ACT inhaler Indications: Chronic obstructive pulmonary disease, unspecified (HCC) INHALE 2 PUFFS INTO THE LUNGS TWICE A DAY 10.2 each 5 12/18/2023 05/29/2024 Discontinued (Formulary change) Start: 06-22-2022 End: 12-22-2022 take 2 puff(s) by inhalation in the morning budesonide-formoterol (Symbicort) 160-4.5 MCG/ACT inhaler Inhale 2 puffs in the morning and 2 puffs before bedtime. 0 06/22/2022 12/22/2022 Discontinued Start: 06-22-2022 take 2 puff(s) by in halation twice daily SYMBICORT 160-4.5 MCG/ACT AERO Indications: Chronic obstructive pulmonary disease, unspecified COPD type (HCC) INHALE 2 PUFFS INTO THE LUNGS TWICE A DAY 10.2 each 5 06/22/2022 Active Start: 12-13-2021 take 2 puff(s) by in halation twice daily budesonide-formoterol (SYMBICORT) 160-4.5 MCG/ACT AERO Inhale 2 puffs into the lungs 2 times daily 1 each 5 12/13/2021 Active Start: 06-04-2021 take 2 puff(s) by mo [facility] twice daily budesonide-formoterol (SYMBICORT) 160-4.5 MCG/ACT AERO TAKE 2 PUFFS BY MOUTH TWICE DAILY 30.6 Inhaler 1 06/04/2021 Active Start: 07-30-2020 take 1 puff(s) by in halation twice daily Budesonide-Formoterol (Symbicort) 1 INHALER inhaler Active 2 PUFF INHALATION TWICE A DAY July 30, 2020 9:29pm Start: 07-30-2020 End: 03-20-2025 Budesonide-Formoterol (Symbi alessia) 1 INHALER inhaler Discontinued 2 NMA INHALATION TWICE A DAY July 30, 2020 12:00am March 20, 2025 6:06pm COPD Start: 07-30-2020 End: 03-20-2025 Budesonide-Formoterol (Symbi alessia) 1 INHALER inhaler Discontinued 2 NMA INHALATION TWICE A DAY July 30, 2020 12:00am March 20, 2025 6:06pm Start: 07-30-2020 take 1 puff(s) by in halation twice daily Budesonide-Formoterol (Symbicort) 1 INHALER inhaler Active 2 PUFF INHALATION TWICE A DAY July 30, 2020 12:00am Start: 03-19-2020 take 2 puff(s) by [facility] twice daily budesonide-formoterol (SYMBICORT) 160-4.5 MCG/ACT AERO TAKE 2 PUFFS BY MOUTH TWICE A DAY 30.6 Inhaler 2 03/19/2020 Active busPIRone hydrochloride 10 mg oral tablet (20 sources) Start: 03-20-2025 take 2 tablets by mouth three times daily Buspirone 10 mg tablet Active 20 mg PO THREE TIMES A DAY March 20, 2025 12:00am anxiety Complies with drug therapy Start: 03-20-2025 take 1 tablet by maria a three times daily Buspirone 10 mg tablet Active 10 mg PO THREE TIMES A DAY March 20, 2025 12:00am anxiety Start: 10-26-2021 End: 03-23-2024 take 1 tablet by mouth three times daily as needed for anxiety Buspirone (Buspar) 10 mg Tablet Discontinued 10 mg PO THREE TIMES A DAY as needed for Anxiety October 26, 2021 1:00am March 23, 2024 9:22am Start: 09-22-2021 End: 06-15-2023 busPIRone (Buspar) 10 MG tab let Take 20 mg by mouth. 0 09/22/2021 06/15/2023 Discontinued (Med list cleanup) Calcium Carb-Cholecalciferol (CALCIUM CARBONATE+VITAMIN D PO) (20 sources) Calcium Carb-Cholecalciferol (CALCIUM CARBONATE+VITAMIN D PO) Take by mouth. 400-12.5 mg Active calcium carbonate 1500 mg / cholecalciferol 200 unt oral tablet (1 source) Vitamin D Start: 2024 Calcium Carbonate-Vitamin D3 (Calcium 600 + D(3)) 600 mg-5 mcg (200 unit) tablet Active 1 {tbl} PO DAILY July 21, 2025 12:00am Complies with drug therapy calcium chloride 0.0014 meq/ml / potassium chloride 0.004 meq/ml / sodium chloride 0.103 meq/ml / sodium lactate 0.028 meq/ml injectable solution (2 sources) Start: 2021 lactated ringers infusion 12 hr carBAMazepine 200 mg extended release oral tablet (20 sources) Mood Stabilizer, Anti-epilepti c Agent Start: 2024 take 2 tablets by mouth twice daily carBAMazepine XR (TEGretol XR) 200 MG 12 hr tablet Indications: Epilepsy, unspecified, not intractable, without status epilepticus (HCC) TAKE 2 TABLETS (400 MG) BY MOUTH 2 TIMES DAILY. DO NOT CRUSH, CHEW, OR SPLIT. 360 tablet 1 12/30/2024 Active Start: 03-23-2024 take 1 tablet by maira a th twice daily Carbamazepine 200 mg tablet extended release 12 hr Active 400 mg PO TWICE A DAY March 23, 2024 12:00am Complies with drug therapy Start: 09-19-2022 End: 06-13-2024 take 2 tablets by mouth twice daily carBAMazepine XR (TEGretol XR) 200 MG 12 hr tablet Indications: Epilepsy, unspecified, not intractable, without status epilepticus (HCC) Take 2 tablets (400 mg) by mouth 2 times daily. Do not crush, chew, or split. 360 tablet 1 06/13/2024 Active Start: 05-30-2022 take 2 tablets by mo [facility] twice daily carBAMazepine (TEGRETOL XR) 200 MG extended release tablet Indications: Epilepsy, unspecified, not intractable, without status epilepticus (HCC) TAKE 2 TABLETS BY MOUTH TWICE A DAY 120 tablet 5 05/30/2022 Active Start: 11-12-2021 take 2 tablets by [facility] twice daily carBAMazepine (TEGRETOL XR) 200 MG extended release tablet Indications: Epilepsy, unspecified, not intractable, without status epilepticus (HCC) TAKE 2 TABLETS BY MOUTH TWICE A DAY 120 tablet 5 11/12/2021 Active Start: 06-21-2021 take 2 tablets by [facility] twice daily carBAMazepine (TEGRETOL XR) 200 MG extended release tablet Indications: Epilepsy, unspecified, not intractable, without status epilepticus (HCC) TAKE 2 TABLETS BY MOUTH TWICE A DAY 120 tablet 5 06/21/2021 Active Start: 06-17-2021 take 400 mg by mouth twice daily Carbamazepine Active 400 MG PO TWICE A DAY June 17, 2021 12:53pm Start: 12-23-2020 take 2 tablets by [facility] twice daily carBAMazepine (TEGRETOL XR) 200 MG extended release tablet Indications: Epilepsy, unspecified, not intractable, without status epilepticus (HCC) TAKE 2 TABLETS BY MOUTH TWICE A DAY 120 tablet 5 12/23/2020 Active Start: 07-30-2020 End: 06-17-2021 take 1 tablet by mouth twice daily Carbamazepine 200 MG tablet Discontinued 200 mg PO TWICE A DAY July 30, 2020 12:00am June 17, 2021 12:58pm mental health, seizures Start: 06-30-2020 take 2 tablets by [facility] twice daily carBAMazepine (TEGRETOL XR) 200 MG extended release tablet Indications: Epilepsy, unspecified, not intractable, without status epilepticus (HCC) TAKE 2 TABLETS BY MOUTH TWICE A DAY 120 tablet 5 06/30/2020 Active Start: 02-06-2014 TEGRETOL-XR 20 0 MG [id number] 2 tablets twice daily CARBAMAZEPINE [id number] Maxine Stanleyrebekah GUSMANN [facility] carBAMazepine (TEGRETOL) 200 MG tablet Take 200 mg by mouth 2 times daily 0 Active 1 ml diphenhydrAMINE hydrochloride 50 mg/ml cartridge (1 source) Histamine-1 Receptor Antagonist Start: 04-27-2022 End: 04-27-2022 diphenhydrAMINE (BENADRYL) injection 12.5 mg DULoxetine 60 mg delayed release oral capsule (20 sources) Serotonin and Norepinephrine Reuptake Inhibitor Start: 03-20-2025 take 1 capsule by mouth twice daily Duloxetine 60 mg capsule,delayed release(DR/EC) Active 60 mg PO TWICE A DAY March 20, 2025 12:00am Complies with drug therapy Start: 09-11-2024 take 1 capsule by [facility] once daily Duloxetine 60 mg capsule,delayed release(DR/EC) Active 60 mg PO DAILY March 20, 2025 12:00am Start: 05-15-2023 End: 07-21-2025 take 1 capsule by mouth at bedtime Duloxetine 30 mg capsule,delayed release(DR/EC) Discontinued 30 mg PO AT BEDTIME March 23, 2024 12:00am July 21, 2025 12:49pm Start: 05-15-2023 take 1 capsule by [facility] twice daily DULoxetine (Cymbalta) [address] capsule Take 30 mg by mouth 2 times daily. 05/15/2023 Active ergocalciferol 1.25 mg oral capsule (20 sources) Provitamin D2 Compound Start: 01-13-2025 End: 06-26-2025 Ergocalciferol (Vitamin D2) 1,250 mcg (50,000 unit) capsule Active 1250 ug PO EVERY WEEK March 20, 2025 12:00am Complies with drug therapy Start: 06-17-2024 take 1 capsule by [facility] every week ergocalciferol (Vitamin D2) 1.25 MG (06646 UT) capsule Indications: Vitamin D deficiency, unspecified Take 1 capsule (1.25 mg) by mouth 1 (one) time per week. 12 capsule 1 06/17/2024 Active Start: 02-14-2024 End: 06-13-2024 take 1 capsule by mouth every week ergocalciferol (Vitamin D2) 1.25 MG (58959 UT) capsule Indications: Vitamin D deficiency, unspecified Take 1 capsule (1.25 mg) by mouth 1 (one) time per week. 4 capsule 1 06/13/2024 Active Start: 09-30-2022 End: 12-18-2023 take 1 capsule by mouth every week ergocalciferol (Vitamin D2) 1.25 MG (98206 UT) capsule Indications: Vitamin D deficiency, unspecified TAKE 1 CAPSULE BY MOUTH ONE TIME PER WEEK 4 capsule 2 12/14/2022 Active Start: 06-22-2022 take 1 capsule by [facility] every week vitamin D (ERGOCALCIFEROL) 1.25 MG (77433 UT) CAPS capsule Indications: Vitamin D deficiency, unspecified TAKE 1 CAPSULE BY MOUTH ONE TIME PER WEEK 4 capsule 2 06/22/2022 Active Start: 03-09-2022 take 1 capsule by mo [facility] every week vitamin D (ERGOCALCIFEROL) 1.25 MG (96436 UT) CAPS capsule Indications: Vitamin D deficiency, unspecified TAKE 1 CAPSULE BY MOUTH ONE TIME PER WEEK 4 capsule 2 03/09/2022 Active Start: 06-09-2021 take 1 capsule by mo [facility] every week vitamin D (ERGOCALCIFEROL) 1.25 MG (43027 UT) CAPS capsule Indications: Vitamin D deficiency, unspecified TAKE 1 CAPSULE BY MOUTH ONE TIME PER WEEK 4 capsule 2 06/09/2021 Active Start: 07-30-2020 End: 03-20-2025 Ergocalciferol (Vitamin D2) 50,000 UNIT capsule Discontinued 59767 U PO MO July 30, 2020 12:00am March 20, 2025 6:01pm vitamin Take every monday Start: 04-27-2020 take 1 capsule by mo [facility] every week vitamin D (ERGOCALCIFEROL) 1.25 MG (35834 UT) CAPS capsule Indications: Vitamin D deficiency, unspecified Take 1 capsule by mouth once a week 4 capsule 2 04/27/2020 Active take 1.25 mg by mout h every week Ergocalciferol (VITAMIN D2 PO) Take 1.25 mg by mouth once a week 0 Active 72 hr fentaNYL 0.05 mg/hr transdermal system (3 sources) Opioid Agonist fentaNYL (DURAGE SIC) 50 MCG/HR Place 1 patch onto the skin every 48 hours 0 Active furosemide 20 mg oral tablet (20 sources) Loop Diuretic Start: 03-25-2025 take 1 tablet by mouth twice daily Furosemide 20 mg tablet Active 20 mg PO TWICE A DAY 120 0 March 25, 2025 5:01pm Complies with drug therapy Start: 06-13-2024 End: 04-07-2025 furosemide (Lasix) 20 MG tab let TAKE 40 MG (2 TABS) BY MOUTH SUN, TUES, THURS, SAT. TAKE 20 MG (1 TAB) BY MOUTH MON, WEDS, FRI. 141 tablet 1 12/16/2024 04/07/2025 Discontinued Start: 03-28-2024 End: 03-25-2025 take 1 tablet by mouth once daily Furosemide 20 mg tablet Discontinued 20 mg PO DAILY April 18, 2024 12:00am March 25, 2025 5:01pm Handicap Placard MISC (9 sources) Start: 01-08-[address] MISC by Does not apply route Duration: 5 years 2024 1 each 0 01/08/2020 Active 1 ml HYDROmorphone hydrochloride 1 mg/ml cartridge (2 sources) Opioid Agonist Start: 04-27-2022 HYDROmorphone (DILAUDID) injection 0.5 mg Start: 04-27-2022 HYDROmorphone (DILAUDID) injection 0.25 mg hydrOXYzine pamoate 50 mg oral capsule (15 sources) Antihistamine Start: 07-30-2020 Hydroxyzine Pa moate (Vistaril) 50 MG capsule Active 25 MG PO THREE TIMES A DAY July 30, 2020 11:05am End: 12-21-2022 hydrOXYzine pamoate (Vistari l) 25 MG capsule Take 25 mg by mouth. 0 12/21/2022 Discontinued (Med list cleanup) labetalol (NORMODYNE;TRANDATE) injection 5 mg (1 source) Start: 04-27-2022 labetalol (NORMODYNE;TRANDATE) injection 5 mg levETIRAcetam 500 mg oral tablet (20 sources) Anti-epile ptic Agent Start: 07-30-2020 End: 06-13-2024 take 2 tablets by mouth twice daily Levetiracetam (Keppra) 500 MG tablet Active 1000 mg PO TWICE A DAY July 30, 2020 12:00am seizure Complies with drug therapy Start: 06-30-2020 take 2 tablets by mo [facility] twice daily levETIRAcetam (KEPPRA) 500 MG tablet Take 2 tablets by mouth 2 times daily 360 tablet 1 06/30/2020 Active Start: 06-15-2020 levETIRAcetam (KEPPRA) 500 MG tablet 500 mg q.a.m., 1000 mg q.p.m. 270 tablet 0 06/15/2020 Active Start: 04-05-2017 KEPPRA 500 MG TABS 1 tablet every 12 hours LEVETIRACETAM [id number] Maxine Moya MERINGUER Start: 09-23-2016 take 1 tablet by maria a th twice daily levETIRAcetam (KEPPRA) 500 MG tablet Take 1 tablet by mouth 2 times daily 60 tablet 1 09/23/2016 Active 10 ml lidocaine hydrochloride 10 mg/ml injection (1 source) Antiarrhythmic, Amide Local Anesthetic Start: 04-27-2022 End: 04-27-2022 lidocaine PF 1 % injection 1 mL lisinopril 20 mg oral tablet (20 sources) Angiotensin Converting Enzyme Inhibitor Start: 07-21-2025 take 1 tablet by mouth twice daily Lisinopril 20 mg tablet Active 20 mg PO TWICE A DAY July 21, 2025 12:00am Complies with drug therapy Start: 12-30-2024 take 1 tablet by maria a th twice daily lisinopril 20 MG tablet TAKE 1 TABLET BY MOUTH TWICE A DAY 180 tablet 1 12/30/2024 Active Start: 05-30-2022 End: 06-13-2024 take 1 tablet by mouth twice daily lisinopril 20 MG tablet Take 1 tablet (20 mg) by mouth 2 times daily. 180 tablet 1 06/13/2024 Active Start: 12-13-2021 take 1 tablet by maria a th twice daily lisinopril (PRINIVIL;ZESTRIL) 20 MG tablet TAKE 1 TABLET BY MOUTH TWICE A DAY 180 tablet 1 12/13/2021 Active Start: 06-17-2021 End: 07-21-2025 take 2 tablets by mouth twice daily Lisinopril 10 mg tablet Discontinued 20 mg PO TWICE A DAY June 17, 2021 12:52pm July 21, 2025 12:50pm blood pressure Start: 06-17-2021 take 20 mg by mouth twice zachary y Lisinopril Active 20 MG PO TWICE A DAY June 17, 2021 12:52pm Start: 05-10-2021 take 1 tablet by maria a th twice daily lisinopril (PRINIVIL;ZESTRIL) 20 MG tablet TAKE 1 TABLET BY MOUTH TWICE A DAY 180 tablet 1 05/10/2021 Active Start: 07-30-2020 End: 06-17-2021 take 1 tablet by mouth twice daily Lisinopril 10 MG tablet Discontinued 10 mg PO TWICE A DAY July 30, 2020 12:00am June 17, 2021 12:58pm blood pressure Start: 06-03-2020 take 1 tablet by maria a th twice daily lisinopril (PRINIVIL;ZESTRIL) 20 MG tablet TAKE 1 TABLET BY MOUTH TWICE A DAY 180 tablet 1 06/03/2020 Active Start: 12-17-2019 take 1 tablet by maria a th twice daily lisinopril (PRINIVIL;ZESTRIL) 20 MG tablet Take 1 tablet by mouth 2 times daily 60 tablet 5 12/17/2019 Active Start: 04-05-2017 LISINOPRIL 5 M G TABS 1 tablet daily LISINOPRIL [id number] Maxine Moya LPN take 1 tablet by maria a th twice daily lisinopril (PRINIVIL;ZESTRIL) 10 MG tablet Take 10 mg by mouth 2 times daily 0 Active 1 ml meperidine hydrochloride 25 mg/ml cartridge (1 source) Opioid Agonist Start: 04-27-2022 meperidine (DEMEROL) injection 12.5 mg 24 hr metoprolol succinate 25 mg extended release oral tablet (20 sources) beta-Adrenergic Nelly Start: 07-07-2025 take 1 tablet by mouth once daily Metoprolol Succinate 25 mg tablet extended release 24 hr Active 25 mg PO daily July 07, 2025 12:00am Complies with drug therapy Start: 09-19-2022 End: 04-14-2025 take 1 tablet by mouth once daily Metoprolol Succinate 25 mg tablet extended release 24 hr Discontinued 25 mg PO DAILY March 23, 2024 12:00am March 20, 2025 6:04pm Start: 03-08-2022 take 1 tablet by maria a th once daily metoprolol succinate (TOPROL XL) 25 MG extended release tablet TAKE 1 TABLET BY MOUTH EVERY DAY 90 tablet 1 03/08/2022 Active Start: 05-21-2021 End: 03-26-2024 take 1 tablet by mouth at bedtime Metoprolol Tartrate 25 mg Tablet Discontinued 25 mg PO AT BEDTIME May 21, 2021 12:00am March 26, 2024 1:04pm Start: 05-12-2021 take 1 tablet by maria a th once daily metoprolol succinate (TOPROL XL) 25 MG extended release tablet TAKE 1 TABLET BY MOUTH EVERY DAY 30 tablet 2 05/12/2021 Active Multiple Vitamin (MULTIVITAM IN ADULT PO) (20 sources) Multiple Vitamin (MULTIVITAMIN ADULT PO) Take by mouth. Active Multiple Vitamin (MULTIVITAMIN ADULT PO) Take by mouth. 0 Active Multivitamin (Daily Multi-Vitamin) tablet (6 sources) Start: 03-26-2024 Multivitamin ( Daily Multi-Vitamin) tablet Active 1 {tbl} PO DAILY 30 0 March 26, 2024 12:00am Complies with drug therapy Start: 03-26-2024 Multivitamin ( Daily Multi-Vitamin) tablet Active 1 {tbl} PO DAILY 30 0 March 26, 2024 12:00am Start: 03-26-2024 Multivitamin ( Daily Multi-Vitamin) tablet Active 1 {tbl} PO DAILY March 26, 2024 12:00am Nebulizer System All-In-One misc (17 sources) Start: 01-09-2025 Nebulizer Syst em All-In-One misc Indications: Chronic obstructive pulmonary disease, unspecified COPD type (HCC) , Moderate asthma, unspecified whether complicated, unspecified whether persistent 1 each every 6 hours as needed (wheezing, cough,). 1 each 01/09/2025 Active nystatin 283119 unt/ml oral suspension (20 sources) Polyene Antifungal Start: 07-21-2025 take 600946 [IU] by mouth four times daily Nystatin 100,000 unit/mL suspension Active 006178 U PO 4 TIMES DAILY July 21, 2025 12:00am Complies with drug therapy Start: 03-25-2025 End: 07-07-2025 take 031721 [IU] by mouth four times daily Nystatin 100,000 unit/mL Suspension Discontinued 360258 U PO 4 TIMES DAILY 280 14 0 March 25, 2025 12:00am July 07, 2025 4:00pm Start: 01-28-2025 take 5 mL by mouth f our times daily nystatin (Mycostatin) 534564 UNIT/ML suspension Take 5 mL (500,000 Units) by mouth 4 times daily. Swish in mouth and swallow. 280 mL 01/28/2025 Active Start: 04-18-2024 End: 07-21-2025 Nystatin 100,000 unit/gram p owder Discontinued 1 NMA TOPICAL THREE TIMES A DAY April 18, 2024 12:00am July 21, 2025 12:50pm Start: 03-23-2024 End: 03-26-2024 Nystatin (Klayesta) 100,000 unit/gram powder Discontinued 1 NMA TOPICAL THREE TIMES A DAY as needed for rash March 23, 2024 12:00am March 26, 2024 1:04pm Start: 08-27-2020 End: 05-29-2024 nystatin (Mycostatin) 870462 UNIT/GM powder Apply 3 times daily. 08/27/2020 05/29/2024 Discontinued (Med list cleanup) Start: 08-27-2020 nystatin (MYCO STATIN) 067507 UNIT/GM powder Apply 3 times daily. 100 g 0 08/27/2020 Active [place]-3 Fatty Acids (OMEGA 3 PO) (3 sources) take 1 tablet by mouth three times daily [place]-3 Fatty Acids (OMEGA 3 PO) Take 1 tablet by mouth 3 times daily 0 Active omeprazole 40 mg delayed release oral capsule (20 sources) Proton Pump Inhibitor Start: 07-07-2025 take 1 capsule by mouth twice daily Omeprazole 40 mg capsule,delayed release(DR/EC) Active 40 mg PO TWICE A DAY July 07, 2025 12:00am Complies with drug therapy Start: 07-30-2020 End: 04-25-2025 take 1 capsule by mouth twice daily Omeprazole 40 MG capsule,delayed release(DR/EC) Discontinued 40 mg PO TWICE A DAY July 30, 2020 12:00am March 25, 2025 4:57pm GERD Start: 12-10-2019 take 1 capsule by mo [facility] twice daily omeprazole (PRILOSEC) 40 MG delayed release capsule Take 1 capsule by mouth 2 times daily 60 capsule 0 12/10/2019 Active Start: 02-06-2014 take 1 capsule by mo [facility] once daily PRILOSEC 40 MG ORAL CAPSULE DELAYED RELEASE 1 capsule daily OMEPRAZOLE [id number] Chantelle Roche take 1 capsule by mo [facility] once daily omeprazole (PRILOSEC) 40 MG delayed release capsule Take 40 mg by mouth daily 0 Active ondansetron 4 mg oral tablet (20 sources) Serotonin-3 Receptor Antagonist Start: 01-29-2024 End: 06-30-2025 take 1 tablet by mouth twice daily as needed for nausea Ondansetron Hcl 4 mg tablet Active 4 mg PO TWICE A DAY as needed for nausea/vomiting March 23, 2024 12:00am Complies with drug therapy Start: 10-27-2022 End: 04-18-2024 take 1 tablet by mouth every twelve hours Ondansetron 8 mg tablet,disintegrating Discontinued 8 mg PO Q12H October 27, 2022 1:00am April 18, 2024 12:00pm Start: 10-07-2022 End: 01-29-2024 take 1 tablet by mouth once daily as needed for nausea ondansetron (Zofran) 4 MG tablet TAKE 1 TABLET BY MOUTH DAILY NEEDED FOR NAUSEA OR VOMITING 90 tablet 1 11/15/2022 Active Start: 07-05-2022 take 1 tablet by maria a th once daily as needed for nausea ondansetron (ZOFRAN) 4 MG tablet Take 1 tablet by mouth daily as needed for Nausea or Vomiting 30 tablet 0 07/05/2022 Active Start: 04-27-2022 take 1 tablet by maria a th once daily as needed for nausea ondansetron (ZOFRAN) 4 MG tablet Take 1 tablet by mouth daily as needed for Nausea or Vomiting 30 tablet 0 04/27/2022 Active Start: 04-27-2022 End: 04-27-2022 ondansetron (ZOFRAN) injecti on 4 mg Start: 04-10-2020 End: 04-10-2020 ondansetron (ZOFRAN) injecti on 4 mg oxyCODONE hydrochloride 5 mg oral tablet (1 source) Opioid Agonist Start: 04-27-2022 End: 05-02-2022 oxyCODONE (ROXICODONE) 5 MG immediate release tablet Indications: Calculus of gallbladder with acute on chronic cholecystitis without obstruction Take 1 tablet by mouth every 6 hours as needed for Pain for up to 5 days. Intended supply: 5 days. Take lowest dose possible to manage pain 20 tablet 0 04/27/2022 05/02/2022 Active Oxygen (20 sources) oxygen (O2) gas Inhale 2.5 L continuous. via nasal canula Active oxygen (O2) gas Inhale 2.5 L continuous. via nasal canula 0 Active perphenazine 4 mg oral tablet (20 sources) Phenothiazine Start: 08-19-2024 take 1 tablet by mouth once daily Perphenazine 4 mg tablet Active 4 mg PO DAILY March 20, 2025 12:00am Complies with drug therapy Start: 10-03-2023 End: 03-28-2024 perphenazine 4 MG tablet Bryant e 2 mg by mouth. 0 10/03/2023 03/28/2024 Discontinued Start: 10-03-2023 perphenazine 4 MG tablet Start: 04-11-2017 End: 03-20-2025 take 1 tablet by mouth at bedtime Perphenazine 2 mg tablet Discontinued 4 mg PO AT BEDTIME July 30, 2020 12:00am March 20, 2025 6:07pm [facility] microencapsulated potassium chloride 20 meq extended release oral tablet (16 sources) Start: 03-25-2025 End: 05-26-2025 take 1 tablet by mouth once daily Potassium Chloride 20 mEq Tablet,Er Particles/Crystals Active 20 meq PO DAILY 60 0 March 25, 2025 12:00am Complies with drug therapy predniSONE 20 mg oral tablet (9 sources) Start: 07-21-2025 take 2 tablets by mouth once daily Start: 03-25-2025 End: 07-07-2025 take 1 tablet by mouth twice daily Prednisone 20 mg tablet Discontinued 20 mg PO TWICE A DAY 14 March 25, 2025 12:00am July 07, 2025 4:00pm Start: 01-09-2025 End: 01-18-2025 predniSONE (Deltasone) 20 MG tablet Indications: COPD with acute exacerbation (HCC) Take 3 tabs (60mg) daily for 3 days, then take 2 tabs (40mg) daily for 3 days, then take 1 tab (20mg) daily for 3 days. 18 tablet 01/09/2025 01/18/2025 Active Start: 10-05-2023 End: 12-08-2023 predniSONE (Deltasone) 20 MG tablet Take 3 tabs (60mg) daily for 5 days, then take 2 tabs (40mg) daily for 3 days, then take 1 tab (20mg) daily for 2 days. 23 tablet 0 10/05/2023 12/08/2023 Discontinued (Therapy completed) 5 ml sodium chloride 9 mg/ml injection (11 sources) Start: 04-27-2022 0.9 % sodium c hloride bolus Start: 04-27-2022 0.9 % sodium c hloride infusion Start: 04-27-2022 sodium chlorid e flush 0.9 % injection 5-40 mL Start: 04-10-2020 End: 04-10-2020 0.9 % sodium chloride bolus sodium chloride flush 0.9 % injection 3 mL (1 source) Start: 12-04-2019 sodium chloride flush 0.9 % injection 3 mL Spacer/Aero-Holding Chambers (AeroChamber MV) inhaler (8 sources) Start: 04-10-2025 End: 04-10-2026 Spacer/Aero-Holding Chambers (AeroChamber MV) inhaler Use as instructed 1 each 2 04/10/2025 04/10/2026 Active spironolactone 25 mg oral tablet (20 sources) Aldosterone Antagonist Start: 03-28-2024 End: 05-10-2025 take 1 tablet by mouth once daily Spironolactone 25 mg tablet Active 25 mg PO DAILY April 18, 2024 12:00am Complies with drug therapy sucralfate 1000 mg oral tablet (16 sources) Aluminum Complex Start: 03-25-2025 take 1 tablet by mouth twice daily Sucralfate (Carafate) 1 gram tablet Active 1 g PO TWICE A DAY 112 56 0 March 25, 2025 12:00am Complies with drug therapy thiamine 50 mg oral tablet (20 sources) Start: 07-07-2025 take 1 tablet by mouth once daily Thiamine Hcl (Vitamin B1) 50 mg tablet Active 50 mg PO daily July 07, 2025 12:00am Complies with drug therapy take 2 tablets by mouth once everette ly thiamine (Vitamin B-1) 50 MG tablet Take 100 mg by mouth daily. Active 10 actuat tiotropium 0.0025 mg/actuat inhalation spray (20 sources) Anticholinergic Start: 06-27-2022 End: 05-29-2024 take 2 puff(s) by inhalation once daily Spiriva Respimat 2.5 MCG/ACT inhaler INHALE 2 PUFFS AT THE SAME TIME EVERY DAY 4 g 3 10/27/2022 Active Start: 11-02-2021 take 2 puff(s) by in halation once daily SPIRIVA RESPIMAT 2.5 MCG/ACT AERS inhaler INHALE 2 PUFFS AT THE SAME TIME EVERY DAY 0 11/02/2021 Active Start: 09-30-2021 End: 03-20-2025 take 2.5 ug by inhalation once daily Tiotropium Ayden (Spiriva Respimat) 2.5 mcg/actuation mist Discontinued 2 NMA INHALATION daily 10 28October 04, 2021 2:58pm March 20, 2025 6:04pm administer at approximately the same time(s) each day Start: 09-30-2021 End: 10-04-2021 take 1 puff(s) by inhalation once daily Tiotropium Ayden (Spiriva Respimat) 2.5 mcg/actuation mist Active 2 PUFF INHALATION daily October 04, 2021 2:58pm administer at approximately the same time(s) each day traMADol hydrochloride 50 mg oral tablet (20 sources) Opioid Agonist Start: 03-20-2025 End: 07-21-2025 take 1 tablet by mouth twice daily as needed for pain Tramadol 50 mg tablet Active 50 mg PO TWICE A DAY as needed for severe pain 7-10 July 21, 2025 12:00am Complies with drug therapy Start: 05-29-2024 End: 06-06-2024 take 1 tablet by mouth twice daily as needed for pain traMADol (Ultram) 50 MG tablet Indications: Osteoarthritis, unspecified osteoarthritis type, unspecified site Take 1 tablet (50 mg) by mouth 2 times daily as needed for severe pain (7-10). 15 tablet 06/06/2024 Active Umeclidinium (20 sources) Anticholinergic Start: 03-20-2025 take 62.5 ug by inhalation once daily Umeclidinium (Incruse Ellipta) 62.5 mcg/actuation blister with device Active 1 NMA INHALATION DAILY March 20, 2025 12:00am Complies with drug therapy Start: 03-20-2025 take 62.5 ug by inha lation once daily Umeclidinium (Incruse Ellipta) 62.5 mcg/actuation blister with device Active 1 NMA INHALATION DAILY March 20, 2025 12:00am Start: 03-20-2025 take 62.5 ug by inha lation once daily Umeclidinium (Umeclidinium 62.5 Mcg/Actuation Blister Powder For Inhalation) 62.5 mcg/actuation blister with device Active 1 NMA INHALATION DAILY March 20, 2025 12:00am Start: 03-20-2025 End: 03-20-2025 take 62.5 ug by inhalation once daily Umeclidinium (Incruse Ellipta) 62.5 mcg/actuation blister with device Discontinued 1 NMA INHALATION DAILY March 20, 2025 12:00am March 20, 2025 6:07pm Start: 01-09-2025 take 1 puff(s) by in halation once daily umeclidinium (Incruse Ellipta) 62.5 MCG/ACT inhalation Indications: COPD with acute exacerbation (HCC) Inhale 1 puff (62.5 mcg) daily. 30 each 5 01/09/2025 Active Start: 10-22-2024 End: 01-09-2025 take 1 puff(s) by inhalation in the morning Incruse Ellipta 62.5 MCG/ACT inhalation INHALE 1 PUFF IN THE MORNING 30 each 3 10/22/2024 01/09/2025 Discontinued (Reorder) Start: 05-29-2024 End: 10-22-2024 take 1 puff(s) by inhalation in the morning umeclidinium (Incruse Ellipta) 62.5 MCG/ACT inhalation Inhale 1 puff (62.5 mcg) in the morning. 30 each 3 06/13/2024 10/22/2024 Discontinued vitamin b12 0.1 mg oral tablet (20 sources) Vitamin B12 Start: 07-21-2025 take 1 tablet by mouth once daily Cyanocobalamin (Vitamin B-12) (Vitamin B-12) 100 mcg tablet Active 100 ug PO DAILY July 21, 2025 12:00am Complies with drug therapy Start: 07-30-2020 End: 03-20-2025 take 1 capsule by mouth once daily Cyanocobalamin (Vitamin B-12) 1,000 MCG capsule Discontinued 1000 ug PO DAILY July 30, 2020 12:00am March 20, 2025 6:06pm vitamin take 1000 ug by mout h in the morning Cyanocobalamin (VITAMIN B 12 PO) Take 1,000 mcg by mouth in the morning. Active take 1000 ug by mout h in the morning Cyanocobalamin (VITAMIN B 12 PO) Take 1,000 mcg by mouth in the morning. 0 Active take 1000 ug by mout h once daily Cyanocobalamin (VITAMIN B 12 PO) Take 1,000 mcg by mouth daily 0 Active Completed/Discontinued Medications Medication Drug Class(es) Dates Sig (Normalized) Sig (Original) acetaminophen 500 mg oral tablet (1 source) Start: 04-27-2022 End: 04-27-2022 acetaminophen (TYLENOL) tablet 1,000 mg acetaminophen 325 mg / HYDROcodone bitartrate 5 mg oral tablet (15 sources) Opioid Agonist Start: 05-21-2021 End: 06-17-2021 Hydrocodone-Acetamin ophen ([place]tt) 5-325 mg Tablet Discontinued 1 {tbl} PO EVERY 6 HOURS as needed for Pain May 21, 2021 12:00am June 17, 2021 12:57pm Start: 03-12-2020 take 1 tablet by maria a th three times daily as needed for pain, then take 5 tablets by mouth as needed for pain HYDROcodone-acetaminophen (NORCO) 7.5-32 5 MG per tablet TAKE 1 TABLET BY MOUTH 3 TIMES A DAY NEEDED FOR PAIN *DNF 5 21 20 0 03/12/2020 Active Start: 01-14-2020 take 1 tablet by maria a th twice daily as needed for pain HYDROcodone-acetaminophen (NORCO) 5-325 MG per tablet TAKE 1 TABLET BY MOUTH TWICE A DAY NEEDED FOR PAIN 0 01/14/2020 Active Start: 12-12-2017 NORCO 10-325 M G TABS 1 tablet 3-4 times daily HYDROCODONE-ACETAMINOPHEN [id number] Nat Sepulveda [employer] take 1 tablet by maria a th every six hours as needed for pain HYDROcodone-acetaminophen (NORCO) 5-325 MG per tablet Take 1 tablet by mouth every 6 hours as needed for Pain 0 Active alendronic acid 70 mg oral tablet (20 sources) Bisphosphonate Start: 07-31-2020 End: 03-17-2022 Alendronate 70 MG tablet Discontinued 70 mg PO October 26, 2021 11:44am March 17, 2022 11:11am Alum & Mag Hydroxide-Simeth (diphenhydramine/al-mag- sim) 1:1 mouthwash (2 sources) Start: 02-18-2025 End: 03-04-2025 Alum & Mag Hydroxide-Simeth (diphenhydramine/al-mag-si m) 1:1 mouthwash 5 ml swish and swallow q 6 hrs 300 mL 02/18/2025 03/04/2025 Discontinued (Therapy completed) Start: 02-18-2025 Alum & Mag Hyd roxide-Simeth (diphenhydramine/al-mag-sim) 1:1 mouthwash 5 ml swish and swallow q 6 hrs 300 mL 02/18/2025 Active calcium carbonate 625 mg / ergocalciferol 125 unt oral tablet (20 sources) Provitamin D2 Compound End: 05-29-2024 take 1 tablet by mouth once in the morning Calcium Carbonate-Vitamin D (Oyster Shell Calcium/D) 250-125 MG-UNIT tablet Take 1 tablet by mouth in the morning. 05/29/2024 Discontinued (Duplicate order) take 1 tablet by mouth once zachary y calcium-vitamin D (OSCAL) 250-125 MG-UNIT per tablet Take 1 tablet by mouth daily 0 Active Calcium Carbonate-Vitamin D2 250 (625)-125 mg-unit tablet (6 sources) Start: 04-18-2024 End: 07-21-2025 Calcium Carbonate-Vitamin D2 250 (625)-125 mg-unit tablet Discontinued 1 {tbl} PO DAILY April 18, 2024 12:00am July 21, 2025 12:49pm Start: 04-18-2024 Calcium Carbon ate-Vitamin D2 250 (625)-125 mg-unit tablet Active 1 {tbl} PO DAILY April 18, 2024 12:00am cholecalciferol 94161 unt oral tablet (1 source) Vitamin D Start: 04-05-2017 VITAMIN D3 57668 UNIT TABS 1 tablet weekly CHOLECALCIFEROL [id number] Maxine Moya LPN docusate sodium 50 mg / sennosides, senior care 8.6 mg oral tablet (16 sources) Start: 03-25-2025 End: 07-21-2025 Sennosides-Docusat e Sodium (Stimulant Laxative Plus) 8.6-50 mg Tablet Discontinued 1 {tbl} PO TWICE A DAY 60 0 March 25, 2025 12:00am July 21, 2025 2:02pm escitalopram 20 mg oral tablet (20 sources) Serotonin Reuptake Inhibitor Start: 02-06-2014 End: 04-18-2024 take 1 tablet by mouth once daily Escitalopram Oxalate (Lexapro) 20 MG tablet Discontinued 20 mg PO DAILY July 30, 2020 12:00am April 18, 2024 5:29pm depression/anxiety famotidine 20 mg oral tablet (1 source) Histamine-2 Receptor Antagonist Start: 04-27-2022 End: 04-27-2022 famotidine (PEPCID) tablet 20 mg Flucelvax Quad (flu vac qs (6 ms up) CD) 60 mcg (15 mcg x (1 source) Start: 09-30-2021 End: 09-30-2021 inject 15 ug by intramuscular injection once Flucelvax Quad (flu vac qs (6 ms up) CD) 60 mcg (15 mcg x Discontinued 60 MCG IM ONCE 0.5 September 30, 2021 10:13am September 30, 2021 11:04am fluticasone propionate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 300.3900, M200.1000, L503.6005, L100.0100, L501.4021, L300.4310, L500.4050 #### [facility] [address] [place], [address] CL Normal 98-108 [facility] Comment on above: Result Comment: Canc elled via OM: Order cancelled - Patient discharged Performed By: #### L 300.3900, M200.1000, L503.6005, L100.0100, L501.4021, L300.4310, L500.4050 #### [facility] [address] [place], [address] CO2 Normal 21.0-32.0 [facility] Comment on above: Result Comment: Canc elled via OM: Order cancelled - Patient discharged Performed By: #### L 300.3900, M200.1000, L503.6005, L100.0100, L501.4021, L300.4310, L500.4050 #### [facility] [address] [place], [address] CREAT,SERUM Normal 0.70-1.20 [facility] Comment on above: Result Comment: Canc elled via OM: Order cancelled - Patient discharged Performed By: #### L 300.3900, M200.1000, L503.6005, L100.0100, L501.4021, L300.4310, L500.4050 #### [facility] [address] [place], [address] eGFR Normal >60 [facility] Comment on above: Result Comment: Canc elled via OM: Order cancelled - Patient discharged Performed By: #### L 300.3900, M200.1000, L503.6005, L100.0100, L501.4021, L300.4310, L500.4050 #### [facility] [address] [place], [address] GAP Normal 5-15 [facility] Comment on above: Result Comment: Canc elled via OM: Order cancelled - Patient discharged Performed By: #### L 300.3900, M200.1000, L503.6005, L100.0100, L501.4021, L300.4310, L500.4050 #### [facility] [address] [place], [address] GLU Normal 70-99 [facility] Comment on above: Result Comment: Canc elled via OM: Order cancelled - Patient discharged Performed By: #### L 300.3900, M200.1000, L503.6005, L100.0100, L501.4021, L300.4310, L500.4050 #### [facility] [address] [place], [address] Potassium Normal 3.3-5.1 [facility] Comment on above: Result Comment: Canc elled via OM: Order cancelled - Patient discharged Performed By: #### L 300.3900, M200.1000, L503.6005, L100.0100, L501.4021, L300.4310, L500.4050 #### [facility] [address] [place], [address] Basic Metabolic Profile (BMP) Normal 133-145 [facility] Comment on above: Result Comment: Canc elled via OM: Order cancelled - Patient discharged Performed By: #### L 300.3900, M200.1000, L503.6005, L100.0100, L501.4021, L300.4310, L500.4050 #### [facility] [address] [place], [address] CBC W/Diff, Automatedon 06-0 -2024 Absolute Neut Normal 2.0-7.7 [facility] Comment on above: Result Comment: Canc elled via OM: Order cancelled - Patient discharged Performed By: #### L 300.3900, M200.1000, L503.6005, L100.0100, L501.4021, L300.4310, L500.4050 #### [facility] [address] [place], [address] HCT Normal 37-47 [facility] Comment on above: Result Comment: Canc elled via OM: Order cancelled - Patient discharged Performed By: #### L 300.3900, M200.1000, L503.6005, L100.0100, L501.4021, L300.4310, L500.4050 #### [facility] [address] [place], [address] HGB Normal 12.0-15.0 [facility] Comment on above: Result Comment: Canc elled via OM: Order cancelled - Patient discharged Performed By: #### L 300.3900, M200.1000, L503.6005, L100.0100, L501.4021, L300.4310, L500.4050 #### [facility] [address] [place], [address] MCH Normal 27.0-32.0 [facility] Comment on above: Result Comment: Canc elled via OM: Order cancelled - Patient discharged Performed By: #### L 300.3900, M200.1000, L503.6005, L100.0100, L501.4021, L300.4310, L500.4050 #### [facility] [address] [place], [address] MCHC Normal 32-36 [facility] Comment on above: Result Comment: Canc elled via OM: Order cancelled - Patient discharged Performed By: #### L 300.3900, M200.1000, L503.6005, L100.0100, L501.4021, L300.4310, L500.4050 #### [facility] [address] [place], [address] MCV Normal 81-99 [facility] Comment on above: Result Comment: Canc elled via OM: Order cancelled - Patient discharged Performed By: #### L 300.3900, M200.1000, L503.6005, L100.0100, L501.4021, L300.4310, L500.4050 #### [facility] [address] [place], [address] NEUT% Normal 47-70 [facility] Comment on above: Result Comment: Canc elled via OM: Order cancelled - Patient discharged Performed By: #### L 300.3900, M200.1000, L503.6005, L100.0100, L501.4021, L300.4310, L500.4050 #### [facility] [address] [place], [address] PLT Normal 150-450 [facility] Comment on above: Result Comment: Canc elled via OM: Order cancelled - Patient discharged Performed By: #### L 300.3900, M200.1000, L503.6005, L100.0100, L501.4021, L300.4310, L500.4050 #### [facility] [address] [place], [address] RBC Normal 4.2-5.4 [facility] Comment on above: Result Comment: Canc elled via OM: Order cancelled - Patient discharged Performed By: #### L 300.3900, M200.1000, L503.6005, L100.0100, L501.4021, L300.4310, L500.4050 #### [facility] [address] [place], [address] RDW CV Normal 11.6-14.6 [facility] Comment on above: Result Comment: Canc elled via OM: Order cancelled - Patient discharged Performed By: #### L 300.3900, M200.1000, L503.6005, L100.0100, L501.4021, L300.4310, L500.4050 #### [facility] [address] [place], [address] RDW SD Normal 35.1-43.9 [facility] Comment on above: Result Comment: Canc elled via OM: Order cancelled - Patient discharged Performed By: #### L 300.3900, M200.1000, L503.6005, L100.0100, L501.4021, L300.4310, L500.4050 #### [facility] [address] [place], [address] WBC Normal 4.4-11.0 [facility] Comment on above: Result Comment: Canc elled via OM: Order cancelled - Patient discharged Performed By: #### L 300.3900, M200.1000, L503.6005, L100.0100, L501.4021, L300.4310, L500.4050 #### [facility] [address] [place], [place], [id number] 36on 03-27-2025 36 Name of Caller: Nuris fortune Contact Reason for Appointment: Patient is requesting transitional care appointment for recent emergency department visit , patient does not remember date she was admitted, but knows that she stayed for 5 days. Patient was seen for pneumonia , bleeding in stomach. Patient cannot come to office on soonest available dates for Dr Gay, stating that she is going out of town, and her high lift driver being busy. Patient is requesting date sooner that 04/10/25 and 04/16/25. Please advise. Office Name: [facility] Medication Refills need, if any: n/a Medication Name: n/a Normal [facility] Basic Metabolic Profile (BMP )on 03-27-2025 BUN Normal 4-19 [facility] Comment on above: Result Comment: Canc elled via OM: Order cancelled - Patient discharged Performed By: #### L 300.3900, M200.1000, L503.6005, L100.0100, L501.4021, L300.4310, L500.4050 #### [facility] [address] [place], [place], [id number] BUN/CRE Normal 10-20 [facility] Comment on above: Result Comment: Canc elled via OM: Order cancelled - Patient discharged Performed By: #### L 300.3900, M200.1000, L503.6005, L100.0100, L501.4021, L300.4310, L500.4050 #### [facility] [address] [place], [place], [id number] Calcium Normal 7.6-11.0 [facility] Comment on above: Result Comment: Canc elled via OM: Order cancelled - Patient discharged Performed By: #### L 300.3900, M200.1000, L503.6005, L100.0100, L501.4021, L300.4310, L500.4050 #### [facility] [address] [place], [address] CL Normal 98-108 [facility] Comment on above: Result Comment: Canc elled via OM: Order cancelled - Patient discharged Performed By: #### L 300.3900, M200.1000, L503.6005, L100.0100, L501.4021, L300.4310, L500.4050 #### [facility] [address] [place], [address] CO2 Normal 21.0-32.0 [facility] Comment on above: Result Comment: Canc elled via OM: Order cancelled - Patient discharged Performed By: #### L 300.3900, M200.1000, L503.6005, L100.0100, L501.4021, L300.4310, L500.4050 #### [facility] [address] [place], [address] CREAT,SERUM Normal 0.70-1.20 [facility] Comment on above: Result Comment: Canc elled via OM: Order cancelled - Patient discharged Performed By: #### L 300.3900, M200.1000, L503.6005, L100.0100, L501.4021, L300.4310, L500.4050 #### [facility] [address] [place], [address] eGFR Normal >60 [facility] Comment on above: Result Comment: Canc elled via OM: Order cancelled - Patient discharged Performed By: #### L 300.3900, M200.1000, L503.6005, L100.0100, L501.4021, L300.4310, L500.4050 #### [facility] [address] [place], [address] GAP Normal 5-15 [facility] Comment on above: Result Comment: Canc elled via OM: Order cancelled - Patient discharged Performed By: #### L 300.3900, M200.1000, L503.6005, L100.0100, L501.4021, L300.4310, L500.4050 #### [facility] [address] [place], [address] GLU Normal 70-99 [facility] Comment on above: Result Comment: Canc elled via OM: Order cancelled - Patient discharged Performed By: #### L 300.3900, M200.1000, L503.6005, L100.0100, L501.4021, L300.4310, L500.4050 #### [facility] [address] [place], [address] Potassium Normal 3.3-5.1 [facility] Comment on above: Result Comment: Canc elled via OM: Order cancelled - Patient discharged Performed By: #### L 300.3900, M200.1000, L503.6005, L100.0100, L501.4021, L300.4310, L500.4050 #### [facility] [address] [place], [address] Basic Metabolic Profile (BMP) Normal 133-145 [facility] Comment on above: Result Comment: Canc elled via OM: Order cancelled - Patient discharged Performed By: #### L 300.3900, M200.1000, L503.6005, L100.0100, L501.4021, L300.4310, L500.4050 #### [facility] [address] [place], [address] CBC W/Diff, Automatedon 06-0 -2024 Absolute Neut Normal 2.0-7.7 [facility] Comment on above: Result Comment: Canc elled via OM: Order cancelled - Patient discharged Performed By: #### L 300.3900, M200.1000, L503.6005, L100.0100, L501.4021, L300.4310, L500.4050 #### [facility] [address] [place], [address] HCT Normal 37-47 [facility] Comment on above: Result Comment: Canc elled via OM: Order cancelled - Patient discharged Performed By: #### L 300.3900, M200.1000, L503.6005, L100.0100, L501.4021, L300.4310, L500.4050 #### [facility] [address] [place], [address] HGB Normal 12.0-15.0 [facility] Comment on above: Result Comment: Canc elled via OM: Order cancelled - Patient discharged Performed By: #### L 300.3900, M200.1000, L503.6005, L100.0100, L501.4021, L300.4310, L500.4050 #### [facility] [address] [place], [address] MCH Normal 27.0-32.0 [facility] Comment on above: Result Comment: Canc elled via OM: Order cancelled - Patient discharged Performed By: #### L 300.3900, M200.1000, L503.6005, L100.0100, L501.4021, L300.4310, L500.4050 #### [facility] [address] [place], [address] MCHC Normal 32-36 [facility] Comment on above: Result Comment: Canc elled via OM: Order cancelled - Patient discharged Performed By: #### L 300.3900, M200.1000, L503.6005, L100.0100, L501.4021, L300.4310, L500.4050 #### [facility] [address] [place], [address] MCV Normal 81-99 [facility] Comment on above: Result Comment: Canc elled via OM: Order cancelled - Patient discharged Performed By: #### L 300.3900, M200.1000, L503.6005, L100.0100, L501.4021, L300.4310, L500.4050 #### [facility] [address] [place], [address] NEUT% Normal 47-70 [facility] Comment on above: Result Comment: Canc elled via OM: Order cancelled - Patient discharged Performed By: #### L 300.3900, M200.1000, L503.6005, L100.0100, L501.4021, L300.4310, L500.4050 #### [facility] [address] [place], [address] PLT Normal 150-450 [facility] Comment on above: Result Comment: Canc elled via OM: Order cancelled - Patient discharged Performed By: #### L 300.3900, M200.1000, L503.6005, L100.0100, L501.4021, L300.4310, L500.4050 #### [facility] [address] [place], [address] RBC Normal 4.2-5.4 [facility] Comment on above: Result Comment: Canc elled via OM: Order cancelled - Patient discharged Performed By: #### L 300.3900, M200.1000, L503.6005, L100.0100, L501.4021, L300.4310, L500.4050 #### [facility] [address] [place], [address] RDW CV Normal 11.6-14.6 [facility] Comment on above: Result Comment: Canc elled via OM: Order cancelled - Patient discharged Performed By: #### L 300.3900, M200.1000, L503.6005, L100.0100, L501.4021, L300.4310, L500.4050 #### [facility] [address] [place], [address] RDW SD Normal 35.1-43.9 [facility] Comment on above: Result Comment: Canc elled via OM: Order cancelled - Patient discharged Performed By: #### L 300.3900, M200.1000, L503.6005, L100.0100, L501.4021, L300.4310, L500.4050 #### [facility] [address] [place], [address] WBC Normal 4.4-11.0 [facility] Comment on above: Result Comment: Canc elled via OM: Order cancelled - Patient discharged Performed By: #### L 300.3900, M200.1000, L503.6005, L100.0100, L501.4021, L300.4310, L500.4050 #### [facility] [address] [place], [address] Basic Metabolic Profile (BMP )on 03-26-2025 BUN Normal 4-19 [facility] Comment on above: Result Comment: Canc elled via OM: Order cancelled - Patient discharged Performed By: #### L 300.3900, M200.1000, L503.6005, L100.0100, L501.4021, L300.4310, L500.4050 #### [facility] [address] [place], [address] BUN/CRE Normal 10-20 [facility] Comment on above: Result Comment: Canc elled via OM: Order cancelled - Patient discharged Performed By: #### L 300.3900, M200.1000, L503.6005, L100.0100, L501.4021, L300.4310, L500.4050 #### [facility] [address] [place], [address] Calcium Normal 7.6-11.0 [facility] Comment on above: Result Comment: Canc elled via OM: Order cancelled - Patient discharged Performed By: #### L 300.3900, M200.1000, L503.6005, L100.0100, L501.4021, L300.4310, L500.4050 #### [facility] [address] [place], [address] CL Normal 98-108 [facility] Comment on above: Result Comment: Canc elled via OM: Order cancelled - Patient discharged Performed By: #### L 300.3900, M200.1000, L503.6005, L100.0100, L501.4021, L300.4310, L500.4050 #### [facility] [address] [place], [address] CO2 Normal 21.0-32.0 [facility] Comment on above: Result Comment: Canc elled via OM: Order cancelled - Patient discharged Performed By: #### L 300.3900, M200.1000, L503.6005, L100.0100, L501.4021, L300.4310, L500.4050 #### [facility] [address] [place], [address] CREAT,SERUM Normal 0.70-1.20 [facility] Comment on above: Result Comment: Canc elled via OM: Order cancelled - Patient discharged Performed By: #### L 300.3900, M200.1000, L503.6005, L100.0100, L501.4021, L300.4310, L500.4050 #### [facility] [address] [place], [address] eGFR Normal >60 [facility] Comment on above: Result Comment: Canc elled via OM: Order cancelled - Patient discharged Performed By: #### L 300.3900, M200.1000, L503.6005, L100.0100, L501.4021, L300.4310, L500.4050 #### [facility] [address] [place], [address] GAP Normal 5-15 [facility] Comment on above: Result Comment: Canc elled via OM: Order cancelled - Patient discharged Performed By: #### L 300.3900, M200.1000, L503.6005, L100.0100, L501.4021, L300.4310, L500.4050 #### [facility] [address] [place], [address] GLU Normal 70-99 [facility] Comment on above: Result Comment: Canc elled via OM: Order cancelled - Patient discharged Performed By: #### L 300.3900, M200.1000, L503.6005, L100.0100, L501.4021, L300.4310, L500.4050 #### [facility] [address] [place], [address] Potassium Normal 3.3-5.1 [facility] Comment on above: Result Comment: Canc elled via OM: Order cancelled - Patient discharged Performed By: #### L 300.3900, M200.1000, L503.6005, L100.0100, L501.4021, L300.4310, L500.4050 #### [facility] [address] [place], [address] Basic Metabolic Profile (BMP) Normal 133-145 [facility] Comment on above: Result Comment: Canc elled via OM: Order cancelled - Patient discharged Performed By: #### L 300.3900, M200.1000, L503.6005, L100.0100, L501.4021, L300.4310, L500.4050 #### [facility] [address] [place], [address] CBC W/Diff, Automatedon 06-0 -2024 Absolute Neut Normal 2.0-7.7 [facility] Comment on above: Result Comment: Canc elled via OM: Order cancelled - Patient discharged Performed By: #### L 300.3900, M200.1000, L503.6005, L100.0100, L501.4021, L300.4310, L500.4050 #### [facility] [address] [place], [address] HCT Normal 37-47 [facility] Comment on above: Result Comment: Canc elled via OM: Order cancelled - Patient discharged Performed By: #### L 300.3900, M200.1000, L503.6005, L100.0100, L501.4021, L300.4310, L500.4050 #### [facility] [address] [place], [address] HGB Normal 12.0-15.0 [facility] Comment on above: Result Comment: Canc elled via OM: Order cancelled - Patient discharged Performed By: #### L 300.3900, M200.1000, L503.6005, L100.0100, L501.4021, L300.4310, L500.4050 #### [facility] [address] [place], [address] MCH Normal 27.0-32.0 [facility] Comment on above: Result Comment: Canc elled via OM: Order cancelled - Patient discharged Performed By: #### L 300.3900, M200.1000, L503.6005, L100.0100, L501.4021, L300.4310, L500.4050 #### [facility] [address] [place], [address] MCHC Normal 32-36 [facility] Comment on above: Result Comment: Canc elled via OM: Order cancelled - Patient discharged Performed By: #### L 300.3900, M200.1000, L503.6005, L100.0100, L501.4021, L300.4310, L500.4050 #### [facility] [address] [place], [address] MCV Normal 81-99 [facility] Comment on above: Result Comment: Canc elled via OM: Order cancelled - Patient discharged Performed By: #### L 300.3900, M200.1000, L503.6005, L100.0100, L501.4021, L300.4310, L500.4050 #### [facility] [address] [place], [address] NEUT% Normal 47-70 [facility] Comment on above: Result Comment: Canc elled via OM: Order cancelled - Patient discharged Performed By: #### L 300.3900, M200.1000, L503.6005, L100.0100, L501.4021, L300.4310, L500.4050 #### [facility] [address] [place], [address] PLT Normal 150-450 [facility] Comment on above: Result Comment: Canc elled via OM: Order cancelled - Patient discharged Performed By: #### L 300.3900, M200.1000, L503.6005, L100.0100, L501.4021, L300.4310, L500.4050 #### [facility] [address] [place], [address] RBC Normal 4.2-5.4 [facility] Comment on above: Result Comment: Canc elled via OM: Order cancelled - Patient discharged Performed By: #### L 300.3900, M200.1000, L503.6005, L100.0100, L501.4021, L300.4310, L500.4050 #### [facility] [address] [place], [address] RDW CV Normal 11.6-14.6 [facility] Comment on above: Result Comment: Canc elled via OM: Order cancelled - Patient discharged Performed By: #### L 300.3900, M200.1000, L503.6005, L100.0100, L501.4021, L300.4310, L500.4050 #### [facility] [address] [place], [address] RDW SD Normal 35.1-43.9 [facility] Comment on above: Result Comment: Canc elled via OM: Order cancelled - Patient discharged Performed By: #### L 300.3900, M200.1000, L503.6005, L100.0100, L501.4021, L300.4310, L500.4050 #### [facility] [address] [place], [place], [id number] WBC Normal 4.4-11.0 [facility] Comment on above: Result Comment: Canc elled via OM: Order cancelled - Patient discharged Performed By: #### L 300.3900, M200.1000, L503.6005, L100.0100, L501.4021, L300.4310, L500.4050 #### [facility] [address] [place], [place], [id number] [phone] Culture, Blood (WB)on 2024 CUB Blood cultures x2, f rom two different sites No growth in 5 days. Normal [facility] Comment on above: Performed By: #### L 300.3900, M200.1000, L503.6005, L100.0100, L501.4021, L300.4310, L500.4050 ####[facility] [address] [place], [address] Anion gap in Serum or Plasma Ordered By: Troy Akins on 03-25-2025 Anion gap [Moles/Vol] 11 mmol/L 5-15 [facility] BUN/creatinine ratioOrdered By: Troy Akins on 03-25-2025 Urea nitrogen/Creatinine [Mass ratio] 16.3 mg/mg - [facility] Basic Metabolic Profile (BMP )on 03-25-2025 BUN/CRE 16.3 RATIO Normal - [facility] Comment on above: Performed By: #### L 300.3900, M200.1000, L503.6005, L100.0100, L501.4021, L300.4310, L500.4050 #### [facility] [address] [place], [address] Calcium [Mass/Vol] 9.0 mg/dL Normal 7.6-11.0 [facility] Comment on above: Performed By: #### L 300.3900, M200.1000, L503.6005, L100.0100, L501.4021, L300.4310, L500.4050 #### [facility] [address] [place], [address] Chloride [Moles/Vol] 96 mmol/L Low 98-108 [facility] Comment on above: Performed By: #### L 300.3900, M200.1000, L503.6005, L100.0100, L501.4021, L300.4310, L500.4050 #### [facility] [address] [place], [address] CO2 [Moles/Vol] 29.4 mmol/L Normal 21.0-32.0 [facility] Comment on above: Performed By: #### L 300.3900, M200.1000, L503.6005, L100.0100, L501.4021, L300.4310, L500.4050 #### [facility] [address] [place], [address] Creatinine [Mass/Vol] 0.50 mg/dL Low 0.70-1.20 [facility] Comment on above: Performed By: #### L 300.3900, M200.1000, L503.6005, L100.0100, L501.4021, L300.4310, L500.4050 #### [facility] [address] [place], [address] ECRCL 103.02 ml/min Normal 50-250 [facility] Comment on above: Performed By: #### L 300.3900, M200.1000, L503.6005, L100.0100, L501.4021, L300.4310, L500.4050 #### [facility] [address] [place], [address] GAP 11 Normal 5-15 [facility] Comment on above: Performed By: #### L 300.3900, M200.1000, L503.6005, L100.0100, L501.4021, L300.4310, L500.4050 #### [facility] [address] [place], [address] GFR/1.73 sq M.predicted among non-blacks MDRD (S/P/Bld) [Vol rate/Area] 106 mL/min/{1.73_m2} Normal >60 [facility] Comment on above: Result Comment: mL/m in/1.73m2 CKD-EPI Creatinine Equation (2020) Performed By: #### L 300.3900, M200.1000, L503.6005, L100.0100, L501.4021, L300.4310, L500.4050 #### [facility] [address] [place], [address] Glucose [Mass/Vol] 120 mg/dL High 70-99 [facility] Comment on above: Performed By: #### L 300.3900, M200.1000, L503.6005, L100.0100, L501.4021, L300.4310, L500.4050 #### [facility] [address] [place], [address] Potassium [Moles/Vol] 4.2 mmol/L Normal 3.3-5.1 [facility] Comment on above: Performed By: #### L 300.3900, M200.1000, L503.6005, L100.0100, L501.4021, L300.4310, L500.4050 #### [facility] [address] [place], [address] Sodium [Moles/Vol] 137 mmol/L Normal 133-145 [facility] Comment on above: Performed By: #### L 300.3900, M200.1000, L503.6005, L100.0100, L501.4021, L300.4310, L500.4050 #### [facility] [address] [place], [address] Urea nitrogen [Mass/Vol] 8 mg/dL Normal 4-19 [facility] Comment on above: Performed By: #### L 300.3900, M200.1000, L503.6005, L100.0100, L501.4021, L300.4310, L500.4050 #### [facility] [address] [place], [address] Blood manual differential co mment interpretation (narrative result)Ordered By: Troy Akins on 03-25-2025 Manual differential comment Neal (Bld) [Interp] SCANNED [facility] Comment on above: 2+ ANISOCYTOSIS1+ PO LYCHROMASIA CBC-Complete Blood Cnt No Di ffon 03-25-2025 Erythrocyte distribution width (RBC) [Ratio] 23.9 % High 11.6-14.6 [facility] Comment on above: Performed By: #### L 300.3900, M200.1000, L503.6005, L100.0100, L501.4021, L300.4310, L500.4050 #### [facility] [address] [place], [address] Hematocrit (Bld) [Volume fraction] 33.2 % Low 37-47 [facility] Comment on above: Performed By: #### L 300.3900, M200.1000, L503.6005, L100.0100, L501.4021, L300.4310, L500.4050 #### [facility] [address] [place], [address] Hemoglobin (Bld) [Mass/Vol] 10.0 g/dL Low 12.0-15.0 [facility] Comment on above: Performed By: #### L 300.3900, M200.1000, L503.6005, L100.0100, L501.4021, L300.4310, L500.4050 #### [facility] [address] [place], [address] MCH (RBC) [Entitic mass] 23.4 pg Low 27.0-32.0 [facility] Comment on above: Performed By: #### L 300.3900, M200.1000, L503.6005, L100.0100, L501.4021, L300.4310, L500.4050 #### [facility] [address] [place], [address] MCHC (RBC) [Mass/Vol] 30.1 g/dL Low 32-36 [facility] Comment on above: Performed By: #### L 300.3900, M200.1000, L503.6005, L100.0100, L501.4021, L300.4310, L500.4050 #### [facility] [address] [place], [address] MCV (RBC) [Entitic vol] 77.6 fL Low 81-99 [facility] Comment on above: Performed By: #### L 300.3900, M200.1000, L503.6005, L100.0100, L501.4021, L300.4310, L500.4050 #### [facility] [address] [place], [address] Platelet mean volume (Bld) [Entitic vol] 9.5 fL Normal 6.2-12.0 [facility] Comment on above: Performed By: #### L 300.3900, M200.1000, L503.6005, L100.0100, L501.4021, L300.4310, L500.4050 #### [facility] [address] [place], [address] Platelets (Bld) [#/Vol] 354 10*3/uL Normal 150-450 [facility] Comment on above: Performed By: #### L 300.3900, M200.1000, L503.6005, L100.0100, L501.4021, L300.4310, L500.4050 #### [facility] [address] [place], [address] RBC (Bld) [#/Vol] 4.28 10*6/uL Normal 4.2-5.4 [facility] Comment on above: Performed By: #### L 300.3900, M200.1000, L503.6005, L100.0100, L501.4021, L300.4310, L500.4050 #### [facility] [address] [place], [address] RDW SD 58.6 fl High 35.1-43.9 [facility] Comment on above: Performed By: #### L 300.3900, M200.1000, L503.6005, L100.0100, L501.4021,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 RATIO Normal 10-20 [facility] Comment on above: Performed By: #### L 500.2500, L100.0100 ####[facility] [address] [place], [address] Calcium [Mass/Vol] 8.8 mg/dL Normal 7.6-11.0 [facility] Comment on above: Performed By: #### L 500.2500, L100.0100 ####[facility] [address] [place], [address] Chloride [Moles/Vol] 100 mmol/L Normal 98-108 [facility] Comment on above: Performed By: #### L 500.2500, L100.0100 ####[facility] [address] [place], [address] CO2 [Moles/Vol] 30.0 mmol/L Normal 21.0-32.0 [facility] Comment on above: Performed By: #### L 500.2500, L100.0100 ####[facility] [address] [place], [address] Creatinine [Mass/Vol] 0.40 mg/dL Low 0.70-1.20 [facility] Comment on above: Performed By: #### L 500.2500, L100.0100 ####[facility] [address] [place], [address] ECRCL 128.78 ml/min Normal 50-250 [facility] Comment on above: Performed By: #### L 500.2500, L100.0100 ####[facility] [address] [place], [address] GAP 11 Normal 5-15 [facility] Comment on above: Performed By: #### L 500.2500, L100.0100 ####[facility] [address] [place], [address] GFR/1.73 sq M.predicted among non-blacks MDRD (S/P/Bld) [Vol rate/Area] 112 mL/min/{1.73_m2} Normal >60 [facility] Comment on above: Result Comment: mL/m in/1.73m2 CKD-EPI Creatinine Equation (2020) Performed By: #### L 500.2500, L100.0100 ####[facility] [address] [place], [address] Glucose [Mass/Vol] 108 mg/dL High 70-99 [facility] Comment on above: Performed By: #### L 500.2500, L100.0100 ####[facility] [address] [place], [address] Potassium [Moles/Vol] 3.8 mmol/L Normal 3.3-5.1 [facility] Comment on above: Performed By: #### L 500.2500, L100.0100 ####[facility] [address] [place], [address] Sodium [Moles/Vol] 140 mmol/L Normal 133-145 [facility] Comment on above: Performed By: #### L 500.2500, L100.0100 ####[facility] [address] [place], [address] Urea nitrogen [Mass/Vol] 4 mg/dL Normal 4-19 [facility] Comment on above: Performed By: #### L 500.2500, L100.0100 ####[facility] [address] [place], [address] CBC W/Diff, Automatedon 06-0 SMEAR COMMENT SCANNED Normal [facility] Comment on above: Performed By: #### L 500.2500, L100.0100 ####[facility] [address] [place], [address] Anisocytosis Ql (Bld) 2+ Normal [facility] Comment on above: Performed By: #### L 500.2500, L100.0100 ####[facility] [address] [place], [address] MICROCYTIC 2+ Normal [facility] Comment on above: Performed By: #### L 500.2500, L100.0100 ####[facility] [address] [place], [address] POLYCHROMASIA RARE Normal [facility] Comment on above: Performed By: #### L 500.2500, L100.0100 ####[facility] [address] [place], [address] CTA Chest W/WO Contraston CTA Chest W/WO Contrast [facility] Imaging Services [address] [place] [address] CTA Chest W/WO Contrast MR#: [id number] Acct: [id number] Name: AISHA HA Rep #: [id number] : 1965 F 60 From: Irma Lopez nd, MD PCP: Dr. Geovani Gay MD Status: ADM IN Study: CTA Chest W/WO Contrast Date of Exam: 03/23/25 Exam# [id number] Ordering Dr: Troy Akins MD PROCEDURE: CTA CHEST W/WO CONTRAST 03/23/2025 REASON FOR EXAM: ELEVATED D DIMER TECHNIQUE: CTA axial imaging of the chest with intravenous contrast. Coronal and Sagittal reconstruction series were provided. 3D, 3D post processing, 3D reconstructions, Maximum intensity projection (MIPs) Volume rendering and Shaded surface rendering was provided. PATIENT PREPARATION: Per protocol CONTRAST: Isovue 370 VOLUME: 100mL One or more dose reduction techniques were used (e.g., Automated exposure control, adjustment of the mA and/or kV according to patient size, use of iterative reconstruction technique). RADIATION DOSE SUMMARY: CTDlvol: 40 mGy DLP: 400 mGycm COMPARISON: Chest radiograph 03/20/2025. FINDINGS: Hardware: None. Lymph nodes: Mediastinal nodes, likely reactive. Heart: The heart is normal in size without pericardial effusion. Severe coronary artery and moderate thoracic aortic calcifications. The great vessels are normal in caliber. Pulmonary Vessels: No central filling defect within the segmental or subsegmental pulmonary arteries. Lungs and Airways: The central airways are patent. Small patchy consolidations and ground-glass opacities throughout the superior left lower lobe and left hilar region. Additional patchy ground-glass opacities throughout the right lung. Mild emphysema and scattered areas of scarring. Trace left pleural effusion. No pneumothorax. Upper Abdomen: Nodular contour of the liver. Bones: Prior ACDF and partially visualized spinal fixation of the lumbar spine. Cervical and thoracic spondylosis. CT/CTA Chest W/WO Contrast IMPRESSION: 1. No acute pulmonary embolism. 2. Patchy consolidations and ground-glass opacities, greatest within the left lung. Findings are most compatible with pneumonitis/pneumonia, however pulmonary neoplasm can not be excluded. Follow-up CT chest in 4-6 weeks is recommended to evaluate for resolution. 3. Nodular contour of the liver, which may represent fibrosis/cirrhosis. Reading Location: [id number] CC: Dr. Geovani Gay MD; Dr. Troy Akins MD Computer Peripheral Equipment Operator: Signed Normal [facility] D-Dimer Quantitative (DVT/PE )on 03-23-2025 D-DIMER QUANT 2.69 FEU/ug/m Invalid Interpretation Code 0.27-0.49 [facility] Comment on above: Result Comment: D-Di batsheva ELEVATED (>0.49): Additional studies and clinical assessments are indicated to conclude diagnosis of: Deep Vein Thrombosis (DVT) or Pulmonary Embolism (PE) CRITICAL VALUE CALLED TO [facility] 03/23/25 0935 Lillian Duong. RESULTS READ BACK BY SAME. Performed By: #### L 300.8000 ####[facility] [address] [place], [address] Respiratory Cultureon 2024 RESPC List Antibiotics [place] t 48 Hours? levaquin No Streptococcus pneumoniae, beta-hemolytic Streptococcus or Staphylococcus aureus isolated. Presumptive C albicans Amount Growth 3+ Normal [facility] Comment on above: Performed By: #### L 490.5200 #### [facility] [address] [place], [place], [id number] Urine Cultureon 03-23-2025 URC Urine Culture Copy of report sent to Infection Control Printer [id number] 03/23/25 1315 ASNIPES. Meth. resistant Staph. aureus [place] Count <1000 mecA Testing not performed MIXGP [place] Count 11,000-25,000 Mixed Gram Positive Organisms cefOXitin Susc Islt Doxycycline Islt NAHOMI 8 I Clindamycin.induced Susc Islt Gentamicin Islt NAHOMI <=0.5 S Linezolid Islt NAHOMI 2 S Moxifloxacin Islt NAHOMI >=8 R Nitrofurantoin Islt NAHOMI <=16 S Oxacillin Susc Islt >=4 R Tetracycline Islt NAHOMI >=16 R TMP SMX Islt NAHOMI >=320 R Vancomycin Islt NAHOMI <=0.5 S Normal [facility] Comment on above: Performed By: #### L 884.5200 #### [facility] [address] [facility] [address] [place], [place], [id number] Basic Metabolic Profile (BMP )on 03-22-2025 BUN/CRE 11.2 RATIO Normal 10-20 [facility] Comment on above: Performed By: #### L 160.5200 #### [facility] [address], [address] Calcium [Mass/Vol] 8.4 mg/dL Normal 7.6-11.0 [facility] Comment on above: Performed By: #### L 298.5200 #### [facility] [address] [place], [address] Chloride [Moles/Vol] 98 mmol/L Normal 98-108 [facility] Comment on above: Performed By: #### L 678.5200 #### [facility] [address] [place], [address] CO2 [Moles/Vol] 26.8 mmol/L Normal 21.0-32.0 [facility] Comment on above: Performed By: #### L 798.5200 #### [facility] [address] [place], [address] Creatinine [Mass/Vol] 0.40 mg/dL Low 0.70-1.20 [facility] Comment on above: Performed By: #### L 501.5200 #### [facility] [address] [place], [address] ECRCL 128.78 ml/min Normal 50-250 [facility] Comment on above: Performed By: #### L 616.5200 #### [facility] [address] [place], [address] GAP 11 Normal 5-15 [facility] Comment on above: Performed By: #### L 134.5200 #### [facility] [address] [place], [address] GFR/1.73 sq M.predicted among non-blacks MDRD (S/P/Bld) [Vol rate/Area] 112 mL/min/{1.73_m2} Normal >60 [facility] Comment on above: Result Comment: mL/m in/1.73m2 CKD-EPI Creatinine Equation (2020) Performed By: #### L 947.5200 #### [facility] [address] [place], [address] Glucose [Mass/Vol] 105 mg/dL High 70-99 [facility] Comment on above: Performed By: #### L 409.5200 #### [facility] [address] [place], [address] Potassium [Moles/Vol] 3.2 mmol/L Low 3.3-5.1 [facility] Comment on above: Performed By: #### L 725.5200 #### [facility] [address] [place], [address] Sodium [Moles/Vol] 136 mmol/L Normal 133-145 [facility] Comment on above: Performed By: #### L 501.5200 #### [facility] [address] [place], [address] Urea nitrogen [Mass/Vol] 4 mg/dL Normal 4-19 [facility] Comment on above: Performed By: #### L 501.5200 #### [facility] [address] [place], [address] CBC W/Diff, Automatedon 05-3 Anisocytosis Ql (Bld) 2+ Normal [facility] Comment on above: Performed By: #### L 501.0 #### [facility] [facility] [address] [place], [address] POLYCHROMASIA RARE Normal [facility] Comment on above: Performed By: #### L 501.5200 #### [facility] [address] [place], [address] SMEAR COMMENT SCANNED Normal [facility] Comment on above: Performed By: #### L 501.5200 #### [facility] [address] [place], [address] Magnesiumon 03-22-2025 Magnesium [Mass/Vol] 2.1 mg/dL Normal 1.5-2.2 [facility] Comment on above: Performed By: #### L 501.5200 #### [facility] [address] [place], [address] Phosphoruson 03-22-2025 Phosphate [Mass/Vol] 2.8 mg/dL Normal 2.7-4.5 [facility] Comment on above: Performed By: #### L 501.5200 #### [facility] [address] [place], [address] 36on 03-21-2025 36 Noted. Agree with recommendations. Normal [facility] Antigen K (GIOVANNI) Series 2on 03-21-2025 ANTIGEN ID Normal [facility] Comment on above: Result Comment: NEGA TIVE NEGATIVE Performed By: #### B MARIANA, BTS, [id number], BAGK ####[facility] [address] [place], [address] [id number] 03-21-2025 ANTIBODY ID M Normal [facility] Comment on above: Order Comment: CMV N EG? NNumber of units to transfuse: 1Is pt's Hgb is = to 7.0 mg/dl or Hct </= 21%? YReason for Ordering Blood: ChronicAre the blood/blood products to be transfused? YIs the patient having/had surgery? NNWhen ReadyNYA Performed By: #### B MARIANA, BTS, [id number], BAGK ####[facility] [address] [place], [address] BRCon 03-21-2025 RC Normal [facility] Comment on above: Result Comment: [id number] BN RC NOT AVAILABLE [id number] BN RC TRANSFUSED 03/21/252135 Performed By: #### B MARIANA, BTS, [id number], BAGK ####[facility] [address] [place], [address] Basic Metabolic Profile (BMP )on 03-21-2025 BUN/CRE 16.2 RATIO Normal 10-20 [facility] Comment on above: Performed By: #### L 503.5510 #### [facility] [address] [place], [address] Calcium [Mass/Vol] 7.9 mg/dL Normal 7.6-11.0 [facility] Comment on above: Performed By: #### L 503.5510 #### [facility] [address] [place], [address] Chloride [Moles/Vol] 90 mmol/L Low 98-108 [facility] Comment on above: Performed By: #### L 503.5510 #### [facility] [address] [place], [address] CO2 [Moles/Vol] 28.8 mmol/L Normal 21.0-32.0 [facility] Comment on above: Performed By: #### L 503.5510 #### [facility] [address] [place], [address] Creatinine [Mass/Vol] 0.51 mg/dL Low 0.70-1.20 [facility] Comment on above: Performed By: #### L 503.5510 #### [facility] [address] [place], [address] ECRCL 101.00 ml/min Normal 50-250 [facility] Comment on above: Performed By: #### L 503.5510 #### [facility] [address] [place], [address] GAP 12 Normal 5-15 [facility] Comment on above: Performed By: #### L 503.5510 #### [facility] [address] [place], [address] GFR/1.73 sq M.predicted among non-blacks MDRD (S/P/Bld) [Vol rate/Area] 105 mL/min/{1.73_m2} Normal >60 [facility] Comment on above: Result Comment: mL/m in/1.73m2 CKD-EPI Creatinine Equation (2020) Performed By: #### L 503.5510 #### [facility] [address] [place], [address] Glucose [Mass/Vol] 90 mg/dL Normal 70-99 [facility] Comment on above: Performed By: #### L 503.5510 #### [facility] [address] [place], [address] Potassium [Moles/Vol] 2.8 mmol/L Low 3.3-5.1 [facility] Comment on above: Performed By: #### L 503.5510 #### [facility] [address] [place], [address] Sodium [Moles/Vol] 131 mmol/L Low 133-145 [facility] Comment on above: Performed By: #### L 503.5510 #### [facility] [address] [place], [address] Urea nitrogen [Mass/Vol] 8 mg/dL Normal 4-19 [facility] Comment on above: Performed By: #### L 503.5510 #### [facility] [address] [place], [address] CBC W/Diff, Automatedon 05- PLT EST A Normal ADEQ [facility] Comment on above: Performed By: #### L 503.5510 #### [facility] [address] [place], [address] Anisocytosis Ql (Bld) 1+ Normal [facility] Comment on above: Performed By: #### L 503.5510 #### [facility] [address] [place], [address] POLYCHROMASIA 1+ Normal [facility] Comment on above: Performed By: #### L 503.5510 #### [facility] [address] [place], [address] Gram Stainon 03-21-2025 List Antibiotics Las t 48 Hours? levaquin Acceptable Specimen? Yes (<25 Epithelial cells per/lpf) Gram Stain 3+ White Blood Cells 1+ Yeast Like Organisms 1+ Gram positive rods No Epithelial cells Normal [facility] Comment on above: Performed By: #### L 011.5200 #### [facility] [address] [place], [address] Gram stainOrdered By: Rayna Douglas on 03-21-2025 Microscopic observation Gram stain Nom (Unsp spec) [facility] Lactic Acidon 03-21-2025 Lactate [Moles/Vol] 3.5 mmol/L Invalid Interpretation Code 0.0-2.0 [facility] Comment on above: Result Comment: Crit ical Result(s) Called to: Teo HERNANDEZ ([facility]) by: Patricia??Results read back by same. Performed By: #### L 300.3900, M200.1000, L503.6005, L100.0100, L501.4021, L300.4310, L500.4050 #### [facility] [address] [place], [address] Lactate [Moles/Vol] 2.5 mmol/L Invalid Interpretation Code 0.0-2.0 [facility] Comment on above: Order Comment: Y Result Comment: Crit ical Result(s) Called at 1352: by: RUPERTO FAIRBANKS TO YUN. ??Results read back by same. Performed By: #### L 501.5200 #### [facility] [address] [place], [address] Lactate [Moles/Vol] 3.8 mmol/L Invalid Interpretation Code 0.0-2.0 [facility] Comment on above: Result Comment: Crit ical Result(s) Called at:03/21/2025-00:50 by: Dolores Wlicox.??Results read back by same. Performed By: #### L 300.3900, M200.1000, L503.6005, L100.0100, L501.4021, L300.4310, L500.4050 #### [facility] [address] [place], [address] Lactic acid measurementOrder ed By: Troy Akins on 03-21-2025 Lactate [Moles/Vol] 3.5 mmol/L Critically high 0.0-2.0 [facility] Comment on above: Critical Result(s) C alled to: Teo HERNANDEZ (U) by: Patricia Results read back by same. Legionella Antigen Urineon 0 03-21-2025 LEGU Legionella Antigen result interpretation: L pneumo Ag Ur Ql Negative Presumptive negative for Legionella pneumophila serogroup 1 antigen in urine, suggesting no recent or current infection. Legionella Ag, Urine Negative (See interpretation below) Normal [facility] Comment on above: Performed By: #### M 300.4600, M300.4500 ####[facility] [address] [place], [place], [address] Magnesiumon 03-21-2025 Magnesium [Mass/Vol] 2.2 mg/dL Normal 1.5-2.2 [facility] Comment on above: Performed By: #### L 503.5536 #### [facility] [address] [place], [address] Microbial respiratory cultur eOrdered By: Jose Douglas on 03-21-2025 Microorganism identified Cx Nom (Unsp spec) Presumptive C albicans Abnormal [facility] Strep pneumoniae Antig(UR,CS F)on 03-21-2025 STPAG URINE INTERPRETATION Positive Urine Positive for pneumococcal pneumonia. Strep pneumo Test Urine POSITIVE for pneumococcal pneumonia.A Streptococcus pneumonia Ag Normal [facility] Comment on above: Performed By: #### M 300.4600, M300.4500 ####[facility] [address] [place], [place], [id number] Type AND Screenon 03-21-2025 Ab SCREEN GEL Positive Normal [facility] Comment on above: Order Comment: CMV N EG? NNumber of units to transfuse: 1Is pt's Hgb is = to 7.0 mg/dl or Hct </= 21%? YReason for Ordering Blood: ChronicAre the blood/blood products to be transfused? YIs the patient having/had surgery? NWkatya Cordova Performed By: #### B RC, BTS, [id number], BAGK ####[facility] [address] [place], [address] 12 Lead EKGon 03-20-2025 12 Lead EKG [facility] [address] [place] [address] 12 Lead EKG 03/20/25 1719 MR#: [id number] Acct: [id number] Name: AISHA HA Rep #: [id number] : 1965 60 From: Luiz Weber MD Attending Dr: Dr. Troy Akins MD Status: ADM IN Ordering Dr: Bradley Pichardo DO Date: 03/20/25 Location: [facility] Sex: F C Admitted: 03/20/25 Test Reason : SOB Blood Pressure : */* mmHG Vent. Rate : 92 BPM Atrial Rate : 92 BPM P-R Int : 156 ms QRS Dur : 94 ms QT Int : 348 ms P-R-T Axes : 63 36 205 degrees QTcB Int : 430 ms Normal sinus rhythm ST T wave abnormality, consider inferolateral ischemia Abnormal ECG Confirmed by Luiz Weber ([id number]), movie editor HELADIO MARIN ([id number]) on 03/24/2025 10:40:48 AM Referred By: SELINA/VIVEK Confirmed By: Luiz Weber 03/24/25 1040 Date Luiz Weber MD CC: Dr. Geovani Gay MD; Dr. Troy Akins MD; Dr. Bradley Pichardo DO Signed Normal [facility] 36on 03-20-2025 36 S: Patient's nicolas Merchant spoke with [facility] nurse regarding breathing difficulties B: Onset of symptoms/concern today Last OV 03/04/25 Hx of COPD A: Daughter reports mother called her schedule appointment for worsening shortness of breath at rest. Has history of COPD. Reports she is speaking in short phrases. She has only used neubilize once today due to lack of energy. She increased O2 to 3 L . She reports she feels as if she has a fever but is unable to check tempeture. She does not have a pulse ox. Denies wheezing or signs of severe difficulty breathing. R: Advised to report to ED. Daughter is agreeable with need to report to ED. States she will go to her house now to evaluate and check pulse Ox. Advised to take medication list and have another adult drive. Will plan to report to [place] ED. Advised to have her use albuterol and/or Duo neb as ordered IGNACIA. Patient instructed to call back with new or worsening symptoms. Patient understands care advice. Reason for Disposition MODERATE difficulty breathing (e.g., speaks in phrases, SOB even at rest, pulse 100-120) of new-onset or worse than normal Protocols used: Breathing Ocmhprdkfg-[id number]-KA Normal [facility] Absolute lymphocyte countOrd ered By: Bradley Pichardo on 03-20-2025 Lymphocytes Auto (Unsp spec) [#/Vol] 2.10 10*3/uL 0.83-4.51 [facility] Absolute neutrophil countOrd ered By: Bradley Pichardo on 03-20-2025 Neutrophils (Bld) [#/Vol] 16.4 10*3/uL High 2.0-7.7 [facility] Activated partial thrombopla stin time (aPTT) in platelet poor plasma by coagulation aOrdered By: Bradley Pichardo on 03-20-2025 aPTT Coag (PPP) [Time] 42.5 s High 24.1-36.2 [facility] Ammoniaon 03-20-2025 Ammonia (P) [Moles/Vol] 32.4 umol/L Normal - [facility] Comment on above: Performed By: #### L 503.5510 #### [facility] [address] [place], [place], [id number] Anion gap in Serum or Plasma Ordered By: Bradley Pichardo on 03-20-2025 Anion gap [Moles/Vol] 14 mmol/L 5-15 [facility] Assessment of wrist artery p atency prior to arterial punctureOrdered By: Bradley Pichardo on 03-20-2025 Arterial patency Wrist artery --pre arterial puncture Positive [facility] Automated lymphocyte count a s percentage of total leukocytesOrdered By: Bradley Pichardo on 03-20-2025 Lymphocytes/100 WBC Auto (Unsp spec) 10.4 % Low 19-41 [facility] BUN/creatinine ratioOrdered By: Bradley Vivek on 03-20-2025 Urea nitrogen/Creatinine [Mass ratio] 8.6 mg/mg Low 10-20 [facility] Basophil percentageOrdered B y: Bradley Vivek on 03-20-2025 Basophils/100 WBC (Bld) 0.2 % 0-1 [facility] Bilirubin Test strip Ql (U)O rdered By: Bradleysol Pichardo on 03-20-2025 Bilirubin Ql (U) 1 mg/dL High Negative [facility] Comment on above: COLOR OF URINE MAY A FFECT DIPSTICK RESULTS. Bilirubin, totalOrdered By: Bradley Pichardo on 03-20-2025 Bilirubin [Mass/Vol] 0.72 mg/dL 0.00-1.30 [facility] Blood Gases by [facility] MERISSA TEST Positive Normal [facility] Comment on above: Performed By: #### L 503.5510 #### [facility] [address] [place], [address] Base excess Calc (Bld) [Moles/Vol] 12 mmol/L High -2 to +2 [facility] Comment on above: Performed By: #### L 503.5510 #### [facility] [address] [place], [address] Blood Gas Type ART Normal [facility] Comment on above: Performed By: #### L 503.5510 #### [facility] [address] [place], [address] CO2 [Moles/Vol] 35 mmol/L Normal [facility] Comment on above: Performed By: #### L 503.5510 #### [facility] [address] [place], [address] FI02 3.0 Normal [facility] Comment on above: Performed By: #### L 503.5510 #### [facility] [address] [place], [address] HCO3 (Bld) [Moles/Vol] 34.1 mmol/L High 22-26 [facility] Comment on above: Performed By: #### L 503.5510 #### [facility] [address] [place], [address] Mode Not entered Normal [facility] Comment on above: Performed By: #### L 503.5510 #### [facility] [address] [place], [address] O2 Delivery Dev Cannula Normal [facility] Comment on above: Performed By: #### L 503.5510 #### [facility] [address] [place], [address] pCO2 36.5 mmHg Normal 35-45 [facility] Comment on above: Performed By: #### L 503.5510 #### [facility] [address] [place], [address] pH (Bld) 7.58 [pH] High 7.35-7.45 [facility] Comment on above: Performed By: #### L 503.5510 #### [facility] [address] [place], [address] PO2 58 mmHG Low 75-100 [facility] Comment on above: Performed By: #### L 503.5510 #### [facility] [address] [place], [address] SITE R Radial Normal [facility] Comment on above: Performed By: #### L 503.5510 #### [facility] [address] [place], [address] SO2 93 Low 95-99 [facility] Comment on above: Performed By: #### L 503.5510 #### [facility] [address] [place], [address] Blood base excess determinat ionOrdered By: Bradley Pichardo on 03-20-2025 Base excess Calc (BldV) [Moles/Vol] 12 mmol/L High -2-2 [facility] Blood bicarbonate measuremen tOrdered By: Bradley Pichardo on 03-20-2025 HCO3 (Bld) [Moles/Vol] 34.1 mmol/L High 22-26 [facility] Blood cultureOrdered By: Nevin Pichardo on 03-20-2025 Bacteria identified Cx Nom (Bld) No growth in 5 days. [facility] Bacteria identified Cx Nom (Bld) No growth in 5 days. [facility] Blood manual differential co mment interpretation (narrative result)Ordered By: Bradley Pichardo on 03-20-2025 Manual differential comment Neal (Bld) [Interp] SCANNED [facility] CBC W/Diff, Automatedon 02-21 Anisocytosis Ql (Bld) 2+ Normal [facility] Comment on above: Performed By: #### L 300.3900, M200.1000, L503.6005, L100.0100, L501.4021, L300.4310, L500.4050 #### [facility] [address] [place], [address] SMEAR COMMENT SCANNED Normal [facility] Comment on above: Performed By: #### L 300.3900, M200.1000, L503.6005, L100.0100, L501.4021, L300.4310, L500.4050 #### [facility] [address] [place], [place], [address] Carbon dioxide, total [Moles /volume] in Central venous bloodOrdered By: Bradley Pichardo on 03-20-2025 CO2 [Moles/Vol] 31.4 mmol/L 21.0-32.0 [facility] Chest PA and Lateralon 03-20 Chest PA and Lateral [facility] Imaging Services [address] [place], [place] [id number] Chest PA and Lateral MR#: [id number] Acct: [id number] Name: AISHA HA Rep #: [id number] : 1965 F 60 From: Jeffrey Andrew MD PCP: Dr. Geovani Gay MD Status: REG ER Study: Chest PA and Lateral Date of Exam: 03/20/25 Exam# [id number] Ordering Dr: Bradley Pichardo DO PROCEDURE: CHEST PA AND LATERAL 03/20/2025 REASON FOR EXAM: SOB TECHNIQUE: Frontal and lateral views of the chest. COMPARISON: 04/18/2024. FINDINGS: Hardware: None. Heart: The heart size is normal. Mediastinum: The mediastinal contour is unremarkable. Lungs: Left midlung and basilar consolidative opacities suspicious for pneumonia. Bones: Degenerative changes are identified within the thoracic spine. RAD/Chest PA and Lateral IMPRESSION: Left midlung and basilar consolidative opacities suspicious for pneumonia. Reading Location: [place] [address] CC: Dr. Geovani Gay MD; Dr. Bradley Pichardo DO Computer Peripheral Equipment Operator: Signed Normal [facility] Chloride assayOrdered By: Gregory Pichardo on 03-20-2025 Chloride [Moles/Vol] 84 mmol/L Low 98-108 [facility] Comprehensive Metabolic Prof ilon 03-20-2025 Albumin [Mass/Vol] 3.3 g/dL Low 3.4-4.8 [facility] Comment on above: Performed By: #### L 300.3900, M200.1000, L503.6005, L100.0100, L501.4021, L300.4310, L500.4050 ####[facility] [address] [facility] [place], [address] Albumin/Globulin [Mass ratio] 0.7 {ratio} Low 0.9-2.4 [facility] Comment on above: Performed By: #### L 300.3900, M200.1000, L503.6005,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 [facility] Eosinophils/100 WBC (Bld) 1.0 % 0-5 [facility] Glucose [Mass/Vol] 78 mg/dL 74-106 [facility] LDH [Catalytic activity/Vol] 304 U/L 84-246 [facility] Neutrophils (Bld) [#/Vol] 3.7 10*3/uL 2.0-7.7 [facility] Neutrophils/100 WBC (Bld) 60.8 % 47-70 [facility] Potassium [Moles/Vol] 3.3 mmol/L 3.5-5.1 [facility] Protein [Mass/Vol] 7.7 g/dL 6.4-8.2 [facility] Sodium [Moles/Vol] 129 mmol/L 136-145 [facility] WBC (Bld) [#/Vol] 6.0 10*3/uL 4.4-11.0 [facility] Blood erythrocytes count (nu mber/volume)Ordered By: Elina Thorpe on 01-16-2023 RBC (Bld) [#/Vol] 3.76 10*6/uL 4.2-5.4 [facility] Blood hemoglobin measurement (mass/volume)Ordered By: Elina Thorpe on 01-16-2023 Hemoglobin (Bld) [Mass/Vol] 13.1 g/dL 12.0-15.0 [facility] Blood lymphocytes/100 leukoc ytesOrdered By: Elina Thorpe on 01-16-2023 Lymphocytes/100 WBC (Bld) 30.1 % 19-41 [facility] Blood monocytes/100 leukocyt esOrdered By: Elina Thorpe on 01-16-2023 Monocytes/100 WBC (Bld) 7.0 % 0-10 [facility] Blood platelet mean volumeOr dered By: Elina Thorpe on 01-16-2023 Platelet mean volume (Bld) [Entitic vol] 10.1 fL 6.2-12.0 [facility] Determination of erythrocyte mean corpuscular volume (MCV)Ordered By: Elina Thorpe on 01-16-2023 MCV (RBC) [Entitic vol] 101.1 fL 81-99 [facility] Erythrocyte sedimentation ra teOrdered By: Elina Thorpe on 01-16-2023 ESR (Bld) [Velocity] 69 mm/h 0-30 [facility] HIV 1 and HIV-2 antibody ass ay with HIV-1 p24 antigen detectionOrdered By: Elina Thorpe on 01-16-2023 HIV 1+2 Ab+HIV1 p24 Ag IA Ql Non-Reactive Nonreactive [facility] Hematocrit Auto (Bld) [Volum e fraction]Ordered By: Elina Thorpe on 01-16-2023 Hematocrit (Bld) [Volume fraction] 38.0 % 37-47 [facility] INR in Blood by Coagulation assayOrdered By: Elina Thorpe on 01-16-2023 INR Coag (Bld) [Relative time] 1.1 {INR} [facility] Laboratory - Chemistry and C hemistry - challengeOrdered By: Elina Thorpe on 01-16-2023 ALP [Catalytic activity/Vol] 228 U/L 45-117 [facility] ALT [Catalytic activity/Vol] 65 U/L 13-56 [facility] CO2 [Moles/Vol] 27.0 mmol/L 21.0-32.0 [facility] Globulin (S) [Mass/Vol] 4.8 g/dL 2.2-4.2 [facility] Urea nitrogen/Creatinine [Mass ratio] 13.6 mg/mg 10-20 [facility] - CoagulationOrde red By: Elina Thorpe on 01-16-2023 PT Coag (PPP) [Time] 13.9 s 11.7-14.9 [facility] - Hematology and Cell countsOrdered By: Elina Thorpe on 01-16-2023 Erythrocyte distribution width (RBC) [Entitic vol] 61.1 fL 35.1-43.9 [facility] Erythrocyte distribution width (RBC) [Ratio] 16.2 % 11.6-14.6 [facility] Immature granulocytes/100 WBC (Bld) 0.300 % 0.0-0.9 [facility] Comment on above: IG% - Immature Granu locytes (promyelocytes, myelocytes and metamyelocytes) > 1% indicates that a LEFT SHIFT is Present. MCH (RBC) [Entitic mass] 34.8 pg 27.0-32.0 [facility] Nucleated RBC/100 WBC (Bld) [Ratio] 0 % 0-5 [facility] MCHC Auto (RBC) [Mass/Vol]Or dered By: Elina Thorpe on 01-16-2023 MCHC (RBC) [Mass/Vol] 34.5 g/dL 32-36 [facility] No Panel InformationOrdered By: Elina Thorpe on 01-16-2023 Centromere B Antibody <0.2 AI 0.0-0.9 [facility] Ceruloplasmin 30.6 mg/dL 19.0-39.0 [facility] Estimated GFR (MDRD) Amer 231 mL/min >60 [facility] Comment on above: GFR Calc Estimated GFR (MDRD) Non-Af Amer 191 mL/min >60 [facility] Comment on above: Non- GFR Calc Haptoglobin 117 mg/dL 33-346 [facility] Comment on above: Performed at: CB - [address] [id number] Director: Mariano Cheatham PhD, Phone: [phone] at: - Lab[address] [id number] Director: Isha Sandhu MD, Phone: [phone] Hepatitis A IgM Antibody Negative Negative [facility] Hepatitis B Core IgM Antibody Negative Negative [facility] Hepatitis C Antibody (EIA) Non-Reactive Non Reactive [facility] Hepatitis C Antibody Comment Comment . [facility] Comment on above: Not infected with HC V unless early or acute infection issuspected (which may be delayed in an immunocompromisedindividual), or other evidence exists to indicate HCVinfection. 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 Antibody 0.8 AI 0.0-0.9 [facility] Platelets bldOrdered By: Cecilia Thorpe on 01-16-2023 Platelets (Bld) [#/Vol] 166 10*3/uL 150-450 [facility] Serum DNA double strand anti body assay (units/volume)Ordered By: Elina Thorpe on 01-16-2023 DNA double strand Ab Qn (S) 13 [IU]/mL 0-9 [facility] Comment on above: Negative <5 Equivoca l 5 - 9 Positive >9 Serum Ana-1 antibody assay (u nits/volume)Ordered By: Elina Thorpe on 01-16-2023 Ana-1 extractable nuclear Ab Qn (S) <0.2 AI 0.0-0.9 [facility] Serum Scl-70 extractable nuc lear antibody assay (units/volume)Ordered By: Elina Thorpe on 01-16-2023 SCL-70 extractable nuclear Ab Qn (S) <0.2 AI 0.0-0.9 [facility] Serum Irwin extractable nucl ear antibody detectionOrdered By: Elina Thorpe on 01-16-2023 Irwin extractable nuclear Ab Ql (S) <0.2 AI 0.0-0.9 [facility] Serum classic neutrophil cyt oplasmic antibody assay (units/volume)Ordered By: Elina Thorpe on 01-16-2023 Neutrophil cytoplasmic Ab.classic Qn (S) <1:20 titer Neg:<1:20 [facility] Serum mitochondria antibody detectionOrdered By: Elina Thorpe on 01-16-2023 Mitochondria Ab Ql (S) <20.0 Units 0.0-20.0 [facility] Comment on above: Negative 0.0 - 20.0 Equivocal 20.1 - 24.9 Positive >24.9Mitochondrial (M2) Antibodies are found in 90-96% ofpatients with primary biliary cirrhosis.Performed at: [facility] [address] [id number] Director: Mariano Cheatham PhD, Phone: [phone] Serum or plasma C reactive p rotein measurement (mass/volume)Ordered By: Elina Thorpe on 01-16-2023 CRP [Mass/Vol] mg/L 0.0-3.0 [facility] Comment on above: C-Reactive Protein ( CRP) provides useful information for thediagnosis, therapy and monitoring of inflammatory processesand associated diseases. For the evaluation of Relative Riskfor Cardiovascular Disease, a High Sensitivity CRP (HSCRP)should be ordered. Serum or plasma actin IgG an tibody assay (units/volume)Ordered By: Elina Thorpe on 01-16-2023 Actin IgG Qn 24 Units 0-19 [facility] Comment on above: Negative 0 - 19 Weak positive 20 - 30 Moderate to strong positive >30 Actin Antibodies are found in 52-85% of patients with autoimmune hepatitis or chronic active hepatitis and in 22% of patients with primary biliary cirrhosis. Serum or plasma albumin ceasar urement (mass/volume)Ordered By: Elina Thorpe on 01-16-2023 Albumin [Mass/Vol] 2.9 g/dL 3.2-5.0 [facility] Serum or plasma albumin/glob ulin mass ratioOrdered By: Elina Thorpe on 01-16-2023 Albumin/Globulin [Mass ratio] 0.6 {ratio} 0.9-2.4 [facility] Serum or plasma qmebt-3-frcq protein tumor marker measurement (units/volume)Ordered By: Elina Thorpe on 01-16-2023 AFP.tumor marker Qn 3.7 ng/mL 0.0-9.2 [facility] Comment on above: [employer] El ectrochemiluminescence Immunoassay(ECLIA)Values obtained with different assay methods or kits cannotbe used interchangeably. Results cannot be interpreted asabsolute evidence of the presence or absence of malignantdisease.This test is not interpretable in females. Serum or plasma angiotensin converting enzyme measurement (enzymatic activity/volume)Ordered By: Elina Thorpe on 01-16-2023 Angiotensin converting enzyme [Catalytic activity/Vol] U/L 14-82 [facility] Serum or plasma calcium ceasar urement (mass/volume)Ordered By: Elina Thorpe on 01-16-2023 Calcium [Mass/Vol] 8.7 mg/dL 8.5-10.1 [facility] Serum or plasma creatinine m easurement (mass/volume)Ordered By: Elina Thorpe on 01-16-2023 Creatinine [Mass/Vol] 0.37 mg/dL 0.55-1.02 [facility] Comment on above: The validity of the calculated GFR & GFRAA in patients over 70 years has not been determined. Clinical correlation is essential. Serum or plasma ferritin misael surement (mass/volume)Ordered By: Elina Thorpe on 01-16-2023 Ferritin [Mass/Vol] 44 ng/mL 8252 [facility] Serum or plasma hepatitis B virus surface antigen detection by immunoassayOrdered By: Elina Thorpe on 01-16-2023 HBV surface Ag IA Ql Negative Negative [facility] Serum or plasma urea nitroge n measurement (mass/volume)Ordered By: Elina Thorpe on 01-16-2023 Urea nitrogen [Mass/Vol] 5 mg/dL 7-18 [facility] Serum perinuclear neutrophil cytoplasmic antibody titer by immunofluorescenceOrdered By: Elina Thorpe on 01-16-2023 Neutrophil cytoplasmic Ab.perinuclear IF (S) [Titer] <1:20 titer Neg:<1:20 [facility] Comment on above: The presence of posi tive fluorescence exhibiting P-ANCA orC-ANCA patterns alone is not specific for the diagnosis ofWegener's Granulomatosis (WG) or microscopic polyangiitis.Decisions about treatment should not be based solely onANCA IFA results. The International ANCA Group Consensusrecommends follow up testing of positive sera with both AZ-3 and MPO-ANCA enzyme immunoassays. As many as 5% serumsamples are positive only by EIA. Ref. AM J Clin Jstgkv4010;111:507-513. Thin prep Papanicolaou smear with manual screeningOrdered By: Elina Thorpe on 01-16-2023 Thin prep Papanicolaou smear with manual screening 268 U/L 15-37 [facility] Thin prep Papanicolaou smear with manual screening 6 5-15 [facility] Thin prep Papanicolaou smear with manual screening 157 ug/dL 80-158 [facility] Comment on above: Detection Limit = 5 Whole blood hemoglobin A1c/t otal hemoglobin ratio (mass fraction)Ordered By: Elina Thorpe on 01-16-2023 HbA1c (Bld) [Mass fraction] 5.0 % 3.8-5.6 [facility] Comment on above: Normal < 5.7 % Predi abetic 5.7 - 6.4 % Diabetic >or= 6.5 % Please note range changes. CT Chest for screening [facility] 11-16-2022 1. Multiple groundgl ass and mixed attenuating nodules some of which appear new and/or slightly more conspicuous with others demonstrating a stable appearance or diminished conspicuity. Though nonspecific this could be infectious or inflammatory given their waxing and waning appearance on multiple prior studies. Continued surveillance on follow-up imaging is recommended. 2. 5 mm subpleural solid-appearing nodule anterior right middle lobe appears new. While this is probably benign, this requires short-term 6 month follow-up. 3. Atherosclerosis. 4. Unchanged borderline enlarged pretracheal lymph node. ASSESSMENT CATEGORY (): Lung-RADS Category 3 - Probably benign finding(s). Recommend low-dose diagnostic chest CT in 6 months. Report Dictated on Electronically Signed By: Juan Jose Sullivan Electronically Signed Date/Time: 11/16/2022 4:18 PM [facility] [employer] RADIOLOGY SYSTEM Patient Name: AISHA HA Exam Date/Time: 11/16/2022 12:02 Procedure: CT LUNG SCREENING LOW DOSE Ordering Provider: GONZALES HOLLY Reason For Exam: CT CHEST WITHOUT CONTRAST - LOW DOSE DIAGNOSTIC: CLINICAL INDICATION: Six-month follow-up for pulmonary nodules TECHNIQUE: Low dose transaxial sequence through the chest from apices through the bases with low-dose technique with 1 mm reconstruction. Sagittal and coronal reconstructions included. COMPARISON: 05/11/2022 FINDINGS: Limitations: Slight motion and streak artifact. Heart/mediastinum: Heart size is within normal limits. Thoracic aorta is normal in caliber. Pulmonary trunk is upper limits of normal in caliber similar to prior studies. Moderate atherosclerotic calcification with involvement of coronary arteries. Mildly enlarged pretracheal lymph node measuring 11 mm in short access similar to prior studies. Lungs/pleura: On axial series 6 image 108 10 mm mixed solid/groundglass nodule right upper lobe series 6 image 107 fairly similar to prior study. On axial image 102 6 mm groundglass nodule medial right upper lobe similar to slightly more conspicuous. On axial image 120 mixed attenuating 9 mm nodule in the left upper lobe demonstrates a more confluent appearance and demonstrates inferior extension. Additional ill-defined groundglass opacities involving the right upper lobe, series 6 image 126. Additional ill-defined groundglass and centrilobular/branching nodular opacities also present in the right upper lobe series 6 image 158. On series 6 image 205 several poorly defined groundglass nodular opacities measuring up to 10 mm right lower lobe. On image 174 subtle 5 mm nodule is fairly similar to prior studies. Several additional groundglass opacity seen on prior studies are not present or are less conspicuous on the current study. On series 6 image 259 5 mm subpleural nodule anterior right middle lobe appears new. No pleural effusions. Scattered areas of atelectasis/scarring Upper abdomen: There is hepatic steatosis. Atherosclerotic calcifications in the visualized abdominal aorta. No mass or nodule in the visualized portions of the left adrenal gland. Osseous structures/soft tissues: Degenerative spondylosis in the visualized spine with partial visualization of cervical spine fixation hardware. No suspicious axillary adenopathy. [facility] RADIOLOGY SYSTEM Radiology Study observation (narrative) [facility] alth CT Chest for screening WO co ntrastOrdered By: Eloise Sullivan on 11-16-2022 [facility] [employer] Work Phone: MG Breast Tomosynthesis Scr Blon 07-08-2022 MG Breast Tomosynthesis Scr Bl Patient Name: AISHA HA Mammography ACCESSION EXAM DATE/TIME PROCEDURE ORDERING PROVIDER [id number] 07/08/2022 10:48 EDT MG Breast Tomosynthesis MD VICTOR HUGO, GEOVANI BI Scr [place] CPT code 48014 [id number] Reason For Exam (MG Breast Tomosynthesis BI Scr) screening Report TIME SINCE LAST MAMMOGRAM: Last mammogram was performed 1 year ago. REASON FOR EXAM: screening, asymptomatic. PROCEDURE: MG BREAST TOMOSYNTHESIS BL SCR: 2021 - 2D/3D Procedure 3D Bilateral CC and MLO view(s) were taken. 2D Bilateral CC and MLO view(s) were taken. Prior study comparison: July 07, 2021, bilateral MG breast tomosynthesis bl scr performed at [facility]. July 06, 2020, bilateral MG breast tomosynthesis bl scr performed at [facility] at [facility]. July 03, 2019, bilateral MG breast tomosynthesis bl scr performed at [facility] at [facility]. TISSUE DENSITY: BIRADS B - There are scattered fibroglandular densities. . PATIENT CANCER HISTORY: No Personal History of Cancer FAMILY CANCER HISTORY: Mother Cervical Cancer, Liver Cancer age 74, Lung Cancer age 74 Paternal Grandmother Lung Cancer Maternal Aunt Cervical Cancer FINDINGS: No suspicious masses, architectural distortions or suspiciously clustered microcalcifications are identified. There is no evidence of skin thickening or nipple retraction. There are no significant changes when compared with prior studies. No mammographic evidence of malignancy. Markings on images: BB's = Nipples; skin lesions Open cahto = Palpable Line = Scar 2D digital mammography and tomosynthesis imaging were performed and reviewed with CAD. Mammography Report ASSESSMENT: Category 1 Negative RECOMMENDATION: Routine screening mammogram of both breasts in 1 year. . Report Dictated on Cancer Risk Assessment: This risk assessment is based on patient provided information collected in a risk survey taken at the time of this examination. Lifetime breast cancer risk: Average Risk - If greater than or equal to 20%, consider annual mammogram and annual screening Breast MRI or follow up in high risk clinic. A score of Average Risk indicates a score of less than 20%. Is the patient at elevated risk based on the HBOC criteria? No (Hereditary Breast and Ovarian Cancer) - If yes, consider genetic counseling and testing with high risk follow up. Is the patient at elevated risk based on the Jang Syndrome criteria? No - If yes, consider genetic counseling and testing with high risk follow up. Final Signed Date and Time: 07/08/2022 10:55 am Signed by: MD MATHUR ANN C. Normal [facility] Digital Screen [place] 07-08-2022 Patient Name: AISHA HA Mammography ACCESSION EXAM DATE/TIME PROCEDURE ORDERING PROVIDER [id number] 07/08/2022 10:48 EDT MG Breast Tomosynthesis MD VICTOR HUGO, GEOVANI BI Scr [place] CPT code [id number] Reason For Exam (MG Breast Tomosynthesis BI Scr) screening Report TIME SINCE LAST MAMMOGRAM: Last mammogram was performed 1 year ago. REASON FOR EXAM: screening, asymptomatic. PROCEDURE: MG BREAST TOMOSYNTHESIS BL SCR: 2021 - 2D/3D Procedure 3D Bilateral CC and MLO view(s) were taken. 2D Bilateral CC and MLO view(s) were taken. Prior study comparison: July 07, 2021, bilateral MG breast tomosynthesis bl scr performed at [facility] at [facility]. July 06, 2020, bilateral MG breast tomosynthesis bl scr performed at [facility]. July 03, 2019, bilateral MG breast tomosynthesis bl scr performed at [facility] at [facility]. TISSUE DENSITY: BIRADS B - There are scattered fibroglandular densities. . PATIENT CANCER HISTORY: No Personal History of Cancer FAMILY CANCER HISTORY: Mother Cervical Cancer, Liver Cancer age 74, Lung Cancer age 74 Paternal Grandmother Lung Cancer Maternal Aunt Cervical Cancer FINDINGS: No suspicious masses, architectural distortions or suspiciously clustered microcalcifications are identified. There is no evidence of skin thickening or nipple retraction. There are no significant changes when compared with prior studies. No mammographic evidence of malignancy. Markings on images: BB's = Nipples; skin lesions Open cahto = Palpable Line = Scar 2D digital mammography and tomosynthesis imaging were performed and reviewed with CAD. Mammography Report ASSESSMENT: Category 1 Negative RECOMMENDATION: Routine screening mammogram of both breasts in 1 year. . Report Dictated on Cancer Risk Assessment: This risk assessment is based on patient provided information collected in a risk survey taken at the time of this examination. Lifetime breast cancer risk: Average Risk - If greater than or equal to 20%, consider annual mammogram and annual screening Breast MRI or follow up in high risk clinic. A score of Average Risk indicates a score of less than 20%. Is the patient at elevated risk based on the HBOC criteria? No (Hereditary Breast and Ovarian Cancer) - If yes, consider genetic counseling and testing with high risk follow up. Is the patient at elevated risk based on the Jang Syndrome criteria? No - If yes, consider genetic counseling and testing with high risk follow up. --- Final --- Signed Date and Time: 07/08/2022 10:55 am Signed by: MD SUSHMA, MARKEL Linton [facility] Markel Mathur MD - 07/08/2022 Patient Name: AISHA HA Mammography ACCESSION EXAM DATE/TIME PROCEDURE ORDERING PROVIDER [id number] 07/08/2022 10:48 EDT MG Breast Tomosynthesis MD VICTOR HUGO, GEOVANI BI Scr [place] CPT code [id number] Reason For Exam (MG Breast Tomosynthesis BI Scr) screening Report TIME SINCE LAST MAMMOGRAM: Last mammogram was performed 1 year ago. REASON FOR EXAM: screening, asymptomatic. PROCEDURE: MG BREAST TOMOSYNTHESIS BL SCR: 2021 - 2D/3D Procedure 3D Bilateral CC and MLO view(s) were taken. 2D Bilateral CC and MLO view(s) were taken. Prior study comparison: July 07, 2021, bilateral MG breast tomosynthesis bl scr performed at [facility] at [facility]. July 06, 2020, bilateral MG breast tomosynthesis bl scr performed at [facility]. July 03, 2019, bilateral MG breast tomosynthesis bl scr performed at [facility]. TISSUE DENSITY: BIRADS B - There are scattered fibroglandular densities. . PATIENT CANCER HISTORY: No Personal History of Cancer FAMILY CANCER HISTORY: Mother Cervical Cancer, Liver Cancer age 74, Lung Cancer age 74 Paternal Grandmother Lung Cancer Maternal Aunt Cervical Cancer FINDINGS: No suspicious masses, architectural distortions or suspiciously clustered microcalcifications are identified. There is no evidence of skin thickening or nipple retraction. There are no significant changes when compared with prior studies. No mammographic evidence of malignancy. Markings on images: BB's = Nipples; skin lesions Open cahto = Palpable Line = Scar 2D digital mammography and tomosynthesis imaging were performed and reviewed with CAD. Mammography Report ASSESSMENT: Category 1 Negative RECOMMENDATION: Routine screening mammogram of both breasts in 1 year. . Report Dictated on Cancer Risk Assessment: This risk assessment is based on patient provided information collected in a risk survey taken at the time of this examination. Lifetime breast cancer risk: Average Risk - If greater than or equal to 20%, consider annual mammogram and annual screening Breast MRI or follow up in high risk clinic. A score of Average Risk indicates a score of less than 20%. Is the patient at elevated risk based on the HBOC criteria? No (Hereditary Breast and Ovarian Cancer) - If yes, consider genetic counseling and testing with high risk follow up. Is the patient at elevated risk based on the Jang Syndrome criteria? No - If yes, consider genetic counseling and testing with high risk follow up. --- Final --- Signed Date and Time: 07/08/2022 10:55 am Signed by: MD SUSHMA, MARKEL Linton [facility] Work [facility]: Radiology Study observation (narrative) [facility] Work Phone: [facility] Isaac Digital Screen Bila teralOrdered By: Markel Mathur on 07-08-[address] [facility] [address] Low Dose Lung Diagnostico n 05-11-2022 CT Low Dose Lung Diagnostic Patient Name: AISHA HA Computed Tomography ACCESSION EXAM DATE/TIME PROCEDURE ORDERING PROVIDER [id number] 05/11/2022 11:[address] Low Dose Thorax w/o KEMAR GONZALES, LINDA S Cont CPT code 72363 Reason For Exam (CT Low Dose Thorax w/o Cont) 6 month follow up Report Examination: CT chest Clinical Indication: 6 month follow up Comparison: 09/27/2021 Findings: Serial axial 1 mm low-dose CT images were obtained through the chest and upper abdomen without administration of intravenous contrast. Coronal, sagittal and axial images reconstructed. Lungs appear normally inflated. No focal consolidation or effusion. There is linear subsegmental atelectasis in the right middle lobe. There our small foci of now more diffuse scattered groundglass opacity within the upper lobes now without any significant nodularity. These are unchanged to less conspicuous. No axillary lymphadenopathy. There is a solitary enlarged lymph node in the right anterior pretracheal region 1.1 x 1.5 cm not significantly changed. Heart size is normal. Coronary artery calcifications, mild. No pericardial effusion. Aorta is normal in appearance. Limited evaluation of the upper abdomen demonstrates no acute finding. Degenerative changes shoulders and spine. Lower cervical fusion hardware. Impression: Minimal amount of stable to slightly improved subtle upper lobe groundglass interstitial foci. These exhibit less focal nodularity than seen previously. Recommend continued follow-up in six months. Report Dictated on Final Dictating Physician: MD BERRY ANTHONY J Signed Date and Time: 05/13/2022 2:46 pm Signed by: MD BERRY ANTHONY J Transcribed Date and Time: 05/13/2022 2:47 Normal [facility] OPERATIVE REPORTon Ordered by an unspecified provider. [facility] Op Noteon 04-27-2022 Op Note Date: 04/27/2022 PreOp Dx: Chronic cholecystitis, Symptomatic Cholelithiasis PostOp Dx: Same Procedure: Laparoscopic Cholecystectomy Surgical Procedure Classification: Surgical Procedure Classification [x] Elective (EL) [] Urgent (UR) [] Emergent (EM) [] Trauma (TR) Wound Classification: Surgical Wound Classification [] Class I/Clean (CL) [x] Class II/Clean-Contaminated (CC) [] Class III/Contaminated (C) [] ClassIV/Dirty-Infected (D) Complications: None Specimen(s): Gallbladder Notes EBL: 50cc Transfusion: none Fluids: See anesthesia record Drains: none Valenzuela: none Special Meds: 600mg Clindamycin, TAP block Surgeon: Bolivar Larsen MD Assist: Lisandra Neumann SA Anesthesia: General HISTORY: The patient is a 57 y.o. year old female with RUQ pain and imaging and findings consistent with symptomatic cholelithiasis. Risks, benefits and alternatives to surgery were discussed. Risks of laparoscopic cholecystectomy, including, but not limited to injury to the cystic duct or common bile duct, conversion to open, the need for reoperative or endoscopic therapy, prolonged mechanical ventilation, and were discussed. We discussed potential for postcholecystectomy chronic diarrhea, the potential for hemorrhage, infection, incomplete resolution of Her symptoms, as well as cardiac and pulmonary-related complications. The patient understands and wishes to proceed. Non-operative alternatives were discussed with the patient and they wish to proceed with surgical intervention. PROCEDURE: The patient was brought to the operating room and placed in supine position. After initiation of general anesthesia by the Anesthesia Department, a TAP block was performed by anesthesia and is documented elsewhere. The abdomen was then prepped and draped in a sterile fashion with chlorhexidine. A timeout was performed verifying the correct patient, procedure, site and positioning. An incision was made in the left upper quadrant. A Veress needle was placed in the left upper quadrant and the abdomen was insufflated to 15mm Hg. An optical trochar was then placed and the abdomen was entered without difficult under direct visualization. Then, under direct visualization, we placed two 5 mm trocars in the right upper quadrant, and one 10 mm trocar in the supraumbilical position. Upon entering the abdomen, the gallbladder was identified, grasped, and retracted cephalad. The peritoneum overlying the junction of the cystic duct was stripped free. Hook electrocautery was used to detach the lateral peritoneal attachments, the left and right side of the gallbladder up towards the fundus. The liver demonstrated early cirrhotic changes and bled easily. After careful dissection, we isolated the cystic duct and cystic artery and dissected the posterior aspect of the gallbladder from the gallbladder fossa. There were only 2 structures noted, the cystic duct and the cystic artery. We placed three 5mm Hemolock clips on the stay side of the cystic duct and 1 clip on the gallbladder side and the cystic duct was divided. We placed two 5mm Hemolock clips on the stay side of the cystic artery, 1 clip on the gallbladder side and the cystic artery was divided. Hook electrocautery was used to remove the gallbladder from the gallbladder fossa. Prior to amputating the gallbladder, we again re-evaluated our clip structures, there was no evidence of bleeding or bilious extravasation. The gallbladder was amputated and removed using a wound protection device. Multiple sutures of 0 Vicryl was used to close the fascial defect at the gallbladder extraction site. The skin was closed using 4-0 Monocryl. The patient tolerated the procedure well, was extubated, and sent to the recovery room in stable condition. All counts were correct [facility] Surgical Pathologyon 022 Surgical Pathology [id number] [facility] DEPARTMENT [facility] PATHOLOGY AND LABORATORY MEDICINE [address] [facility] [place] [address] Fax - FINAL SURGICAL PATHOLOGY REPORT ___ NAME: AISHA HA Serg [id number] : 1965 57 Y F YING NO.: [id number] LOCATION: [facility] SDS 01 PROCEDURE 04/27/2022 DATE: SURGEON: BOLIVAR LARSEN M.D. RECEIVED 04/27/2022 DATE: ATTENDING: BOLIVAR LARSEN MD REPORT DATE: 04/28/2022 COPIES TO: ___ DIAGNOSIS: GALLBLADDER, CHOLECYSTECTOMY - CHRONIC CHOLECYSTITIS WITH CHOLELITHIASIS LH3/LH3 Signature> MIA ALAS M.D. ___ CLINICAL INFORMATION: Gallstones SPECIMEN: GALLBLADDER ___ GROSS DESCRIPTION: Received in formalin labeled gallbladder per requisition is an intact gallbladder measuring 10 x 4 x 3 cm. The serosal surface of the gallbladder is pink-guadalupe, smooth and intact. Sectioning through the specimen reveals multiple black sand-like gallstone material aggregating to 0.3 x 0.3 x 0.3 cm. The mucosal wall is bile-stained and unremarkable. The gallbladder wall measures 1.0 cm in average thickness. Internist Medical Doctor Md sections are submitted in one cassette. YRS/JAM Disclaimer: The following statement applies to all immunohistochemistry, in situ hybridization, molecular studies, and immunofluorescence testing. The use of one or more reagents in the above tests is regulated as an analyte specific reagent (ASR). These tests were developed and their performance characteristics determined by the clinical laboratories of [facility]. They have not been cleared by the US Food and Drug Administration (FDA). The FDA has determined that such clearance or approval is not necessary. All the above immunostains were performed on paraffin embedded tissue. Appropriate positive and negative controls (where applicable) were run in parallel with the patient's specimen; these controls showed expected staining pattern, with acceptable intensity of staining. Immunohistochemical assays have not been validated on decalcified tissues. Results should be interpreted with caution given the raised possibility of false negativity on decalcified specimens. Case reviewed at [place] [address] [place] [address]. DEPARTMENT OF PATHOLOGY AND LABORATORY MEDICINE [place], [place] [address] [email or web address] [facility] Levetiracetamon 04-20-2022 levETIRAcetam [Mass/Vol] 23 ug/mL Normal 10-40 [facility] Comment on above: Result Comment: INTE RPRETIVE INFORMATION: Keppra (Levetiracetam) Therapeutic Range: 10-40 ug/mL Toxic: Not well Established Pharmacokinetics of levetiracetam are affected by renal function. Adverse effects may include somnolence, weakness, headache and vomiting. This levetiracetam (Keppra) immunoassay uses the [employer] reagents, which has known cross-reactivity with the drug brivaracetam (Briviact) and may report inaccurate results. Patients transitioning from levetiracetam to brivaracetam or those who are using both medications should not monitor drug concentrations with the [employer] assay. These patients should be monitored using a validated chromatographic methodology that distinguishes between drugs to determine drug concentrations. Performed By: [facility] [address] [place] [address] [employer] [employer] Orthodontist: Shonna Ruff MD Performed By: #### L SNOW #### The performing lab is in the report. #### HEMOG, CMP3M, MG3, PT #### [facility] [address] [place] [address] CBCon 04-18-2022 Interpretation and review of laboratory results Abnormal [facility] MCHC (RBC) [Mass/Vol] 34.3 % 32.0 - 36.0 % [facility] Platelet distribution width (Bld) [Ratio] 15.4 % High 11.5 - 14.5 % [facility] Test Performed by [facility], [address] [place], [place] [address] [facility] Comp Panel with Mg Reflexon 04-18-2022 ALP [Catalytic activity/Vol] 217 U/L High 38-126 [facility] Comment on above: Performed By: #### L SNOW #### The performing lab is in the report. #### HEMOG, CMP3M, MG3, PT #### [facility] [address] [place] [address] ALT [Catalytic activity/Vol] 77 U/L High 0-34 [facility] Comment on above: Result Comment: The ALT test is performed by an updated assay method. Please note that the reference intervals have been changed and are now sex specific. Performed By: #### L SNOW #### The performing lab is in the report. #### HEMOG, CMP3M, MG3, PT #### [facility] [address] [place] [address] Anion gap [Moles/Vol] 5 mmol/L Normal 3-13 [facility] Comment on above: Performed By: #### L SNOW #### The performing lab is in the report. #### HEMOG, CMP3M, MG3, PT #### [facility] [address] [place] [address] AST [Catalytic activity/Vol] 119 U/L High 15-46 [facility] Comment on above: Performed By: #### L SNOW #### The performing lab is in the report. #### HEMOG, CMP3M, MG3, PT #### [facility] [address] [place] [address] Bilirubin [Mass/Vol] 0.7 mg/dL Normal 0.2-1.3 [facility] Comment on above: Performed By: #### L SNOW #### The performing lab is in the report. #### HEMOG, CMP3M, MG3, PT #### [facility] [address] [place] [address] Calcium [Mass/Vol] 9.5 mg/dL Normal 8.4-10.4 [facility] Comment on above: Performed By: #### L SNOW #### The performing lab is in the report. #### HEMOG, CMP3M, MG3, PT #### [facility] [address] [place] [address] CO2 [Moles/Vol] 30 mmol/L Normal 22-30 [facility] Comment on above: Performed By: #### L SNOW #### The performing lab is in the report. #### HEMOG, CMP3M, MG3, PT #### [facility] [address] [place] [address] Glucose [Mass/Vol] 114 mg/dL High 70-100 [facility] Comment on above: Performed By: #### L SNOW #### The performing lab is in the report. #### HEMOG, CMP3M, MG3, PT #### [facility] [address] [place] [address] Protein [Mass/Vol] 8.4 g/dL High 6.3-8.2 [facility] Comment on above: Performed By: #### L SNOW #### The performing lab is in the report. #### HEMOG, CMP3M, MG3, PT #### [facility] [address] [place] [address] Urea nitrogen [Mass/Vol] mg/dL Low 9-20 [facility] Comment on above: Performed By: #### L SNOW #### The performing lab is in the report. #### HEMOG CMP3M, MG3, PT #### [facility] [address] [place] [address] Creatinine [Mass/Vol] 0.43 mg/dL Low 0.52-1.25 [facility] Comment on above: Performed By: #### L SNOW #### The performing lab is in the report. #### HEMJAMES CMP3M, MG3, PT #### [facility] [address] [place] [address] eGFR OTHER > 90.0 Normal >60 [facility] Comment on above: Result Comment: KDIG O guidelines provide the following GFR categories: Stage GFR(ml/min/1.73 m2) Terms G1 >=90 Normal or high G2 60-89 Mildly decreased* G3a 45-59 Mildly to moderately decreased G3b 30-44 Moderately to severely decreased G4 15-29 Severely decreased G5 <15 Kidney failure *Relative to young adult level. In the absence of evidence of kidney damage, neither GFR category G1 nor G2 fulfill the criteria for CKD. The CKD-EPI equation is validated in individuals 18 years of age and older. Currently the best equation for estimating glomerular filtration rate (GFR) from serum creatinine in children is the Bedside Brown equation. It is less accurate in patients with extremes of muscle mass, restriction of dietary protein, ingestion of creatine, extra-renal metabolism of creatinine, or treatment with medications that affect renal tubular creatinine secretion. Performed By: #### L SNOW #### The performing lab is in the report. #### HEMOGHATTIE3M, MG3, PT #### [facility] [address] [place] [address] GFR/1.73 sq M.predicted among blacks MDRD (S/P/Bld) [Vol rate/Area] mL/min/{1.73_m2} Normal >60 [facility] Comment on above: Performed By: #### L SNOW #### The performing lab is in the report. #### HEMOG, CMP3M, MG3, PT #### [facility] [address] [place] [address] Albumin [Mass/Vol] 4.3 g/dL Normal 3.5-5.0 [facility] Comment on above: Performed By: #### L SNOW #### The performing lab is in the report. #### HEMOG, CMP3M, MG3, PT #### [facility] [address] [place] [address] Chloride [Moles/Vol] 100 mmol/L Normal 98-107 [facility] Comment on above: Performed By: #### L SNOW #### The performing lab is in the report. #### HEMOG, CMP3M, MG3, PT #### [facility] [address] [place] [address] Potassium [Moles/Vol] 3.3 mmol/L Low 3.5-5.1 [facility] Comment on above: Performed By: #### L SNOW #### The performing lab is in the report. #### HEMOG, CMP3M, MG3, PT #### [facility] [address] [place] [address] Sodium [Moles/Vol] 136 mmol/L Normal 135-145 [facility] Comment on above: Performed By: #### L SNOW #### The performing lab is in the report. #### HEMOG, CMP3M, MG3, PT #### [facility] [address] [place] [address] Comprehensive Metabolic Pane l w/ Reflex to MGon 04-18-2022 Albumin [Mass/Vol] 4.3 g/dL 3.5 - 5.0 g/dL [facility] ALP (Bld) [Catalytic activity/Vol] 217 U/L High 38 - 126 U/L [facility] ALT [Catalytic activity/Vol] 77 U/L High 0 - 34 U/L [facility] Comment on above: The ALT test is perf ormed by an updated assay method. Please note that the reference intervals have been changed and are now sex specific. Anion gap [Moles/Vol] 5 mmol/L 3 - 13 mmol/L [facility] AST [Catalytic activity/Vol] 119 U/L High 15 - 46 U/L [facility] Bilirubin [Mass/Vol] 0.7 mg/dL 0.2 - 1 .3 mg/dL [facility] Calcium [Mass/Vol] 9.5 mg/dL 8.4 - 10. 4 mg/dL [facility] Chloride [Moles/Vol] 100 mmol/L 98 - 10 7 mmol/L [facility] CO2 [Moles/Vol] 30 mmol/L 22 - 30 mmol/L [facility] Creatinine [Mass/Vol] 0.43 mg/dL Low 0.52 - 1.25 mg/dL [facility] EGFR IF NonAfrican [place]ese >90.0 >60 mL/min [facility] Comment on above: KDIGO guidelines pro vide the following GFR categories: Stage GFR(ml/min/1.73 m2) Terms G1 >=90 Normal or high G2 60-89 Mildly decreased* G3a 45-59 Mildly to moderately decreased G3b 30-44 Moderately to severely decreased G4 15-29 Severely decreased G5 <15 Kidney failure *Relative to young adult level. In the absence of evidence of kidney damage, neither GFR category G1 nor G2 fulfill the criteria for CKD. The CKD-EPI equation is validated in individuals 18 years of age and older. Currently the best equation for estimating glomerular filtration rate (GFR) from serum creatinine in children is the Bedside Brown equation. It is less accurate in patients with extremes of muscle mass, restriction of dietary protein, ingestion of creatine, extra-renal metabolism of creatinine, or treatment with medications that affect renal tubular creatinine secretion. Free PSA/Total PSA [Mass fraction] 8.4 g/dL High 6.3 - 8.2 g/dL [facility] GFR/1.73 sq M.predicted among blacks MDRD (S/P/Bld) [Vol rate/Area] mL/min/{1.73_m2} >60 mL/min [facility] Glucose [Mass/Vol] 114 mg/dL High 70 - 100 mg/dL [facility] Interpretation and review of laboratory results Abnormal [facility] Potassium [Moles/Vol] 3.3 mmol/L Low 3.5 - 5.1 mmol/L [facility] Sodium [Moles/Vol] 136 mmol/L 135 - 145 mmol/L [facility] Urea nitrogen (BldV) [Mass/Vol] <2 Low 9 - 20 mg/dL [facility] Test Performed by [facility], [address] [place], [place] [address] [facility]-18-[facility]22 Erythrocyte distribution width (RBC) [Ratio] 15.4 % High 11.5-14.5 [facility] Comment on above: Performed By: #### L SNOW #### The performing lab is in the report. #### HEMOG CMP3M, MG3, PT #### [facility] [address] [place] [address] MCHC 34.3 % Normal 32.0-36.0 [facility] Comment on above: Performed By: #### L SNOW #### The performing lab is in the report. #### HEMJAMES CMP3M, MG3, PT #### [facility] [address] [place] [address] Hematocrit (Bld) [Volume fraction] 37.6 % Normal 35.0-47.0 [facility] Comment on above: Performed By: #### L SNOW #### The performing lab is in the report. #### HEMOG CMP3M, MG3, PT #### [facility] [address] [place] [address] Hemoglobin (Bld) [Mass/Vol] 12.9 g/dL Normal 11.7-16.0 [facility] Comment on above: Performed By: #### L SNOW #### The performing lab is in the report. #### HEMOG CMP3M, MG3, PT #### [facility] [address] [place] [address] MCH (RBC) [Entitic mass] 36.2 pg High 26.0-34.0 [facility] Comment on above: Performed By: #### L SNOW #### The performing lab is in the report. #### HEMOG CMP3M, MG3, PT #### [facility] [address] [place] [address] MCV (RBC) [Entitic vol] 105.7 fL High 79.0-98.0 [facility] Comment on above: Performed By: #### L SNOW #### The performing lab is in the report. #### HEMOG, CMP3M, MG3, PT #### [facility] [address] [place] [address] Platelet mean volume (Bld) [Entitic vol] 7.7 fL Normal 7.4-12.4 [facility] Comment on above: MPV is a calculated measurement using platelet volume ratio. Result Comment: MPV is a calculated measurement using platelet volume ratio. Performed By: #### L SNOW #### The performing lab is in the report. #### HEMOG, CMP3M, MG3, PT #### [facility] [address] [place] [address] Platelets (Bld) [#/Vol] 176 10*3/uL Normal 140-440 [facility] Comment on above: Performed By: #### L SNOW #### The performing lab is in the report. #### HEMOG, CMP3M, MG3, PT #### [facility] [address] [place] [address] RBC (Bld) [#/Vol] 3.56 10*6/uL Low 3.80-5.20 [facility] Comment on above: Performed By: #### L SNOW #### The performing lab is in the report. #### HEMOG, CMP3M, MG3, PT #### [facility] [address] [place] [address] WBC (Bld) [#/Vol] 5.5 10*3/uL Normal 3.6-10.7 [facility] Comment on above: Performed By: #### L SNOW #### The performing lab is in the report. #### HEMOG, CMP3M, MG3, PT #### [facility] [address] [place] [address] Magnesiumon 04-18-2022 Magnesium [Mass/Vol] 1.7 mg/dL Normal 1.6-2.3 [facility] Comment on above: Performed By: #### L SNOW #### The performing lab is in the report. #### HEMOG, CMP3M, MG3, PT #### [facility] [address] [place] [address] Magnesium [Mass/Vol] 1.7 mg/dL 1.6 - 2 .3 mg/dL [facility] Test Performed by [facility], [address] [place], [place], [place] [address] [facility] Prothrombin Timeon INR 1.0 Normal 0.9-1.1 [facility] Comment on above: Result Comment: Stef mmended Anticoagulant Therapy: SEE BELOW ----- INR of 2.0 - 3.0 : - Prophylaxis of Venous Thrombosis (high-risk surgery) - Treatment of Venous Thrombosis - Treatment of Pulmonary Embolism (Includes tissue heart valves, Acute Myocardial Infarction to prevent systemic embolism, Valvular Heart Disease, and Atrial Fibrillation) ----- INR of 2.5 - 3.5 : - Mechanical Prosthetic Valves (high risk) - If oral anticoagulant therapy is used to prevent Myocardial Infarction Performed By: #### L SNOW #### The performing lab is in the report. #### HEMOG, CMP3M, MG3, PT #### [address] [place] [address] PT Coag (PPP) [Time] 11.1 s Normal 9.0-12.0 [facility] Comment on above: Result Comment: . Performed By: #### L SNOW #### The performing lab is in the report. #### HEMOG, CMP3M, MG3, PT #### [address] [place] [address] Protime-INRon 04-18-2022 INR Coag (Bld) [Relative time] 1.0 {INR} [facility] Comment on above: Recommended Anticoag ulant Therapy: SEE BELOW ----- INR of 2.0 - 3.0 : - Prophylaxis of Venous Thrombosis (high-risk surgery) - Treatment of Venous Thrombosis - Treatment of Pulmonary Embolism (Includes tissue heart valves, Acute Myocardial Infarction to prevent systemic embolism, Valvular Heart Disease, and Atrial Fibrillation) ----- INR of 2.5 - 3.5 : - Mechanical Prosthetic Valves (high risk) - If oral anticoagulant therapy is used to prevent Myocardial Infarction PT Coag (PPP) [Time] 11.1 s 9.0 - 12.0 s [facility] Comment on above: . Test Performed by [facility], [address] [place], [place], [place] [id number] [place] [address] [facility] Basophil percentageon 2021 Bilirubin [Mass/Vol] 0.30 mg/dL 0.20-1.00 [facility] Work Phone: Comment on above: For patients on eltr ombopag therapy, use of Dimension [place] TBIL is not recommended. Chloride [Moles/Vol] 98 mmol/L 98-107 [facility] Work Phone: [phone] Glucose [Mass/Vol] 85 mg/dL 74-106 [facility] Work Phone: Comment on above: Please note revised GLUCOSE reference range effective 2017. Potassium [Moles/Vol] 4.0 mmol/L 3.5-5.1 [facility] Work Phone: [phone] Protein [Mass/Vol] 8.6 g/dL 6.4-8.2 [facility] Work Phone: [phone] Sodium [Moles/Vol] 134 mmol/L 136-145 [facility] Work Phone: [phone] WBC (Bld) [#/Vol] 7.5 10*3/uL 4.4-11.0 [facility] Work Phone: [phone] Blood erythrocytes count (nu mber/volume)on 10-28-2021 RBC (Bld) [#/Vol] 3.84 10*6/uL 4.2-5.4 [facility] Work Phone: [phone] Blood hemoglobin measurement (mass/volume)on 10-28-2021 Hemoglobin (Bld) [Mass/Vol] 13.4 g/dL 12.0-15.0 [facility] Work Phone: [phone] Blood platelet mean volumeon 10-28-2021 Platelet mean volume (Bld) [Entitic vol] 11.2 fL 6.2-12.0 [facility] Work Phone: [phone] Determination of erythrocyte mean corpuscular volume (MCV)on 10-28-2021 MCV (RBC) [Entitic vol] 107.0 fL 81-99 [facility] Work Phone: Direct bilirubinon Bilirubin.direct [Mass/Vol] 0.18 mg/dL 0.00-0.30 [facility] Work Phone: Hematocrit Auto (Bld) [Volum e fraction]on 10-28-2021 Hematocrit (Bld) [Volume fraction] 41.1 % 37-47 [facility] Work Phone: INR in Blood by Coagulation assayon 10-28-2021 INR Coag (Bld) [Relative time] 1.0 {INR} [facility] Work Phone: Laboratory - Chemistry and C hemistry - challengeon 10-28-2021 ALP [Catalytic activity/Vol] 118 U/L 45-117 [facility] Work Phone: ALT [Catalytic activity/Vol] 29 U/L 13-56 [facility] Work Phone: CO2 [Moles/Vol] 30.0 mmol/L 21.0-32.0 [facility] Work Phone: Globulin (S) [Mass/Vol] 5.2 g/dL 2.2-4.2 [facility] Work Phone: Urea nitrogen/Creatinine [Mass ratio] 8.9 mg/mg 10-20 [facility] Work Phone: Laboratory - Coagulationon 0 10-28-2021 aPTT Coag (Bld) [Time] 36.0 s 24.1-36.2 [facility] Work Phone: PT Coag (PPP) [Time] 12.8 s 11.7-14.9 [facility] Work Phone: Laboratory - Hematology and Cell countson 10-28-2021 Erythrocyte distribution width (RBC) [Entitic vol] 57.5 fL 35.1-43.9 [facility] Work Phone: Erythrocyte distribution width (RBC) [Ratio] 14.4 % 11.6-14.6 [facility] Work Phone: [phone] MCH (RBC) [Entitic mass] 34.9 pg 27.0-32.0 [facility] Work Phone: [phone] MCHC Auto (RBC) [Mass/Vol]on 10-28-2021 MCHC (RBC) [Mass/Vol] 32.6 g/dL 32-36 [facility] Work Phone: [phone] No Panel Informationon 10-28 Estimated GFR (MDRD) Amer 185 mL/min >60 [facility] Work Phone: Comment on above: GFR Calc Estimated GFR (MDRD) Non-Af Amer 153 mL/min >60 [facility] Work Phone: Comment on above: Non- GFR Calc Platelets bldon 10-28-2021 Platelets (Bld) [#/Vol] 227 10*3/uL 150-450 [facility] Work Phone: [phone] Serum or plasma albumin ceasar urement (mass/volume)on 10-28-2021 Albumin [Mass/Vol] 3.4 g/dL 3.2-5.0 [facility] Work Phone: [phone] Serum or plasma calcium ceasar urement (mass/volume)on 10-28-2021 Calcium [Mass/Vol] 9.4 mg/dL 8.5-10.1 [facility] Work Phone: [phone] Serum or plasma creatinine m easurement (mass/volume)on 10-28-2021 Creatinine [Mass/Vol] 0.45 mg/dL 0.55-1.02 [facility] Work Phone: Comment on above: The validity of the calculated GFR & GFRAA in patients over 70 years has not been determined. Clinical correlation is essential. Serum or plasma urea nitroge n measurement (mass/volume)on 10-28-2021 Urea nitrogen [Mass/Vol] 4 mg/dL 7-18 [facility] Work Phone: [phone] Thin prep Papanicolaou smear with manual screeningon 10-28-2021 Thin prep Papanicolaou smear with manual screening 27 U/L 15-37 [facility] Work Phone: Thin prep Papanicolaou smear with manual screening 6 5-15 [facility] Work Phone: CT Low Dose Lung Diagnostico n 09-27-2021 CT Low Dose Lung Diagnostic Patient Name: AISHA HA Computed Tomography ACCESSION EXAM DATE/TIME PROCEDURE ORDERING PROVIDER [id number] 09/27/2021 14:[address] Low Dose Thorax w/o CHRISTIAN, PUNCH FINISHER, LINDA S Cont CPT code 82766 Reason For Exam (CT Low Dose Thorax w/o Cont) 1 year follow up; lung nodule Report SCREENING CT CHEST WITHOUT CONTRAST: CLINICAL INDICATION: Screening for lung cancer TECHNIQUE: Low dose transaxial sequence through the chest from apices through the bases with low-dose technique with 1 mm reconstruction. Sagittal and coronal reconstructions included. COMPARISON: 06/25/2020 FINDINGS: Limitations: Slight motion and streak artifact. Heart size is within normal limits. Thoracic aorta and pulmonary trunk are normal in caliber. Atherosclerotic calcifications. Trace pericardial effusion. Lower right paratracheal lymph node measures up to 1.0 cm in short access, similar to prior study, and upper limits of normal. No bulky adenopathy on this noncontrast examination. There are multiple groundglass and mixed attenuating nodule/nodular opacities in both lungs which were not definitively seen on prior study though prior examination had motion artifact. On axial series 6 image 130, there is a 10 mm groundglass nodule in the medial right upper lobe. On axial image 113 mixed attenuating 8mm nodule in the left upper lobe is new or more conspicuous on the current examination. On axial image 104 mixed attenuating nodule in the right lung apex measuring about 7 mm. On axial image 173, groundglass nodule in the right middle lobe measures 6 mm. On axial image 165, 5 mm groundglass nodule is noted in the superior aspect of the right upper lobe. Previously seen subtle 3 mm subpleural nodule right upper lobe, image 65 is similar to slightly less conspicuous. On axial image 178 6 mm predominantly groundglass nodule in the left upper lobe is present. There are multiple additional scattered areas of groundglass opacities predominantly in the right middle lobe and lower lobes which are nonspecific but have the appearance of atelectasis. No consolidation, pleural effusions, or pneumothorax. Computed Tomography Report There may be some degree of hepatic steatosis. There are atherosclerotic calcifications in the visualized abdominal aorta and its main branches. Degenerative spondylosis in the visualized spine with partial visualization of fixation hardware in the cervical spine. No significant soft tissue abnormality. IMPRESSION: 1. Multiple groundglass and mixed attenuating nodule/nodular opacities in both lungs, not definitively seen on prior study, though prior study was degraded by motion artifact. Follow-up as below. 2. Atherosclerosis. ASSESSMENT CATEGORY (version 1.1 - 2019): Lung-RADS Category 3 - Probably benign finding(s). Recommend low-dose diagnostic chest CT in 6 months. Lung-RADS Version 1.1 Assessment Categories - for Screening CT Chest Only. Release date: March 14, 2019 Report Dictated on Final Dictating Physician: MD SULLIVAN VLADIMIR Signed Date and Time: 09/29/2021 9:00 am Signed by: MD SULLIVAN VLADIMIR Transcribed Date and Time: 09/29/2021 9:01 Normal [facility] DEMIAN ISAAC DIGITAL SCREEN BILA TERALOrdered By: Geovani Gay on 07-07-2021 Patient Name: AISHA HA Mammography ACCESSION EXAM DATE/TIME PROCEDURE ORDERING PROVIDER [id number] 07/07/2021 10:47 EDT MG Breast Tomosynthesis MD GAY DARRELL BI Scr [place] CPT code 07079 [id number] Reason For Exam (MG Breast Tomosynthesis BI Scr) screening Report TIME SINCE LAST MAMMOGRAM: Last mammogram was performed 1 year ago. REASON FOR EXAM: screening, asymptomatic. PROCEDURE: MG BREAST TOMOSYNTHESIS BL SCR: 2020 - 2D/3D Procedure 3D Bilateral CC and MLO view(s) were taken. 2D Bilateral CC and MLO view(s) were taken. Prior study comparison: July 06, 2020, bilateral MG breast tomosynthesis bl scr performed at [facility] at [facility]. July 03, 2019, bilateral MG breast tomosynthesis bl scr performed at [facility] at [facility]. July 02, 2018, bilateral MG breast tomosynthesis bl scr performed at [facility] at [facility]. TISSUE DENSITY: BIRADS B - There are scattered fibroglandular densities. . PATIENT CANCER HISTORY: No Personal History of Cancer FAMILY CANCER HISTORY: Mother Cervical Cancer, Liver Cancer age 74, Lung Cancer age 74 Paternal Grandmother Lung Cancer Maternal Aunt Cervical Cancer . FINDINGS: No suspicious masses, architectural distortions or suspiciously clustered microcalcifications are identified. There is no evidence of skin thickening or nipple retraction. There are no significant changes when compared with prior studies. No mammographic evidence of malignancy. Markings on images: BB's = Nipples; skin lesions Open cahto = Palpable Line = Scar 2D digital mammography and tomosynthesis imaging were performed and reviewed with CAD. Mammography Report ASSESSMENT: Category 1 Negative RECOMMENDATION: Routine screening mammogram of both breasts in 1 year. . Report Dictated on Cancer Risk Assessment: This risk assessment is based on patient provided information collected in a risk survey taken at the time of this examination. Lifetime breast cancer risk: Low Risk - If greater than or equal to 20%, consider annual mammogram and annual screening Breast MRI or follow up in high risk clinic. A score of Low Risk indicates a score of less than 20%. Is the patient at elevated risk based on the HBOC criteria? No (Hereditary Breast and Ovarian Cancer) - If yes, consider genetic counseling and testing with high risk follow up. Is the patient at elevated risk based on the Jang Syndrome criteria? No - If yes, consider genetic counseling and testing with high risk follow up. --- Final --- Signed Date and Time: 07/07/2021 1:00 pm Signed by: DO TRUJILLO RACHEL [facility] Work Phone: Basia Diaz Incoming Radiology Results From [facility] - 07/07/2021 1:10 PM EDT Patient Name: AISHA HA Mammography ACCESSION EXAM DATE/TIME PROCEDURE ORDERING PROVIDER [id number] 07/07/2021 10:47 EDT MG Breast Tomosynthesis MD VICTOR HUGO, GEOVANI BI Scr [place] CPT code 52128 33614 Reason For Exam (MG Breast Tomosynthesis BI Scr) screening Report TIME SINCE LAST MAMMOGRAM: Last mammogram was performed 1 year ago. REASON FOR EXAM: screening, asymptomatic. PROCEDURE: MG BREAST TOMOSYNTHESIS BL SCR: 2020 - 2D/3D Procedure 3D Bilateral CC and MLO view(s) were taken. 2D Bilateral CC and MLO view(s) were taken. Prior study comparison: July 06, 2020, bilateral MG breast tomosynthesis bl scr performed at [facility] at [facility]. July 03, 2019, bilateral MG breast tomosynthesis bl scr performed at [facility] at [facility]. July 02, 2018, bilateral MG breast tomosynthesis bl scr performed at [facility] at [facility]. TISSUE DENSITY: BIRADS B - There are scattered fibroglandular densities. . PATIENT CANCER HISTORY: No Personal History of Cancer FAMILY CANCER HISTORY: Mother Cervical Cancer, Liver Cancer age 74, Lung Cancer age 74 Paternal Grandmother Lung Cancer Maternal Aunt Cervical Cancer . FINDINGS: No suspicious masses, architectural distortions or suspiciously clustered microcalcifications are identified. There is no evidence of skin thickening or nipple retraction. There are no significant changes when compared with prior studies. No mammographic evidence of malignancy. Markings on images: BB's = Nipples; skin lesions Open cahto = Palpable Line = Scar 2D digital mammography and tomosynthesis imaging were performed and reviewed with CAD. Mammography Report ASSESSMENT: Category 1 Negative RECOMMENDATION: Routine screening mammogram of both breasts in 1 year. . Report Dictated on Cancer Risk Assessment: This risk assessment is based on patient provided information collected in a risk survey taken at the time of this examination. Lifetime breast cancer risk: Low Risk - If greater than or equal to 20%, consider annual mammogram and annual screening Breast MRI or follow up in high risk clinic. A score of Low Risk indicates a score of less than 20%. Is the patient at elevated risk based on the HBOC criteria? No (Hereditary Breast and Ovarian Cancer) - If yes, consider genetic counseling and testing with high risk follow up. Is the patient at elevated risk based on the Jang Syndrome criteria? No - If yes, consider genetic counseling and testing with high risk follow up. --- Final --- Signed Date and Time: 07/07/2021 1:00 pm Signed by: DO TRUJILLO RACHEL [facility] Work Phone: [facility] Work Phone: US ABDOMEN COMPLETEOrdered B y: Geovani Gay on 06-15-2021 [facility]: [id number] ACCESSION EXAM DATE/TIME PROCEDURE ORDERING PROVIDER [id number] 06/15/2021 12:57 EDT US Abdomen Complete MD VICTOR HUGO, GEOVANI GARRETT CPT code 06033 Reason For Exam (US Abdomen Complete) ruq abdominal pain Report ULTRASOUND ABDOMEN: INDICATION: Right upper quadrant pain COMPARISON: None. Sonogram of the abdomen is performed. The liver is increased in echotexture. No hyper or hypo echoic masses are seen. There is no intrahepatic biliary ductal dilatation. The gallbladder is normally distended. Multiple small nonobstructing stones are present The common bile duct diameter of 4.8 mm is within normal limits. The pancreas is normal in echotexture. No obvious pancreatic mass or peripancreatic fluid collection is identified. The spleen is unremarkable and measures 8.6 x 4.6 x 6.2 cm. Cursory examination of the kidneys is performed. The right kidney measures 11.3 x 6.3 x 3.8 cm. The left kidney measures 11.1 x 4.8 x 5.3 cm. There is no hydronephrosis. There is no ascites. The visualized portions of the aorta and inferior vena cava are within normal limits. No sonographic Rivera's sign was elicited during the examination. IMPRESSION: Cholelithiasis. Report Dictated on --- Final --- Dictating Physician: DO CHERY ALFRED Signed Date and Time: 06/15/2021 1:15 pm Signed by: DO CHERY ALFRED Transcribed Date and Time: 06/15/2021 1:16 [facility] Work Phone: Joe, [facility] Incoming Radiology Results From [facility] - 06/15/2021 1:16 PM EDT [facility]: [id number] Ul[facility]ound ACCESSION EXAM DATE/TIME PROCEDURE ORDERING PROVIDER [id number] 06/15/2021 12:57 EDT US Abdomen Complete MD GAY DARRELL L[place] CPT code 78952 Reason For Exam (US Abdomen Complete) ruq abdominal pain Report ULTRASOUND ABDOMEN: INDICATION: Right upper quadrant pain COMPARISON: None. Sonogram of the abdomen is performed. The liver is increased in echotexture. No hyper or hypo echoic masses are seen. There is no intrahepatic biliary ductal dilatation. The gallbladder is normally distended. Multiple small nonobstructing stones are present The common bile duct diameter of 4.8 mm is within normal limits. The pancreas is normal in echotexture. No obvious pancreatic mass or peripancreatic fluid collection is identified. The spleen is unremarkable and measures 8.6 x 4.6 x 6.2 cm. Cursory examination of the kidneys is performed. The right kidney measures 11.3 x 6.3 x 3.8 cm. The left kidney measures 11.1 x 4.8 x 5.3 cm. There is no hydronephrosis. There is no ascites. The visualized portions of the aorta and inferior vena cava are within normal limits. No sonographic Rivera's sign was elicited during the examination. IMPRESSION: Cholelithiasis. Report Dictated on --- Final --- Dictating Physician: DO CHERY ALFRED Signed Date and Time: 06/15/2021 1:15 pm Signed by: DO CHERY ALFRED Transcribed Date and Time: 06/15/2021 1:16 [facility] Work Phone: [facility] Work Phone: [facility] ISAAC DIGITAL SCREEN BILA TERALon 07-06-2020 Patient Name: AISHA HA ---Mammography--- Exam Date/Time 07/06/2020 11:19:46 EDT Exam MG Breast Tomosynthesis BI Scr Ordering Physician MD VICTOR HUGO, GEOVANI GARRETT Accession Number [id number] CPT4 Codes 00422 (MG Breast Tomosynthesis Scr Bl), 44191 (MG MAMMO 2D SCREENING) Reason For Exam SCREENING Report TIME SINCE LAST MAMMOGRAM: Last mammogram was performed 1 year ago. REASON FOR EXAM: screening, asymptomatic. PROCEDURE: MG BREAST TOMOSYNTHESIS BL SCR: 2019 - 2D/3D Procedure 3D Bilateral CC and MLO view(s) were taken. 2D Bilateral CC and MLO view(s) were taken. Prior study comparison: July 03, 2019, bilateral MG breast tomosynthesis bl scr performed at [facility] at [facility]. July 02, 2018, bilateral MG breast tomosynthesis bl scr performed at [facility] at [facility]. April 27, 2016, bilateral screening mammogram performed at [facility] at [facility]. TISSUE DENSITY: BIRADS B - There are scattered fibroglandular densities. FINDINGS: No suspicious masses, architectural distortions or suspiciously clustered microcalcifications are identified. There is no evidence of skin thickening or nipple retraction. There are no significant changes when compared with prior studies. Markings on images: BB's = Nipples; skin lesions Open cahto = Palpable Line = Scar 2D digital mammography and tomosynthesis imaging were performed and reviewed with CAD. ASSESSMENT: Category 1 Negative RECOMMENDATION: Routine screening mammogram of both breasts in 1 year. Report Dictated on Cancer Risk Assessment: This risk assessment is based on patient provided information collected in a risk survey taken at the time of this examination. Lifetime breast cancer risk: 10.34% - If greater than or equal to 20%, consider annual mammogram and annual screening Breast MRI or follow up in high risk clinic. Is the patient at elevated risk based on the HBOC criteria? No (Hereditary Breast and Ovarian Cancer) - If yes, consider genetic counseling and testing with high risk follow up. HNPCC mutation risk (Jang Syndrome): 1% - if greater than or equal to 5%, consider genetic counseling, testing and screening colonoscopy. --- Final --- Signed Date and Time: 07/06/2020 3:42 pm Signed by: MD NICK, SILVIAFull[place], [place] [facility] Incoming Radiology Results From [facility] - 07/06/2020 4:02 PM EDT Patient Name: AISHA HA ---Mammography--- Exam Date/Time 07/06/2020 11:19:46 EDT Exam MG Breast Tomosynthesis BI Scr Ordering Physician MD VICTOR HUGO, GEOVANI GARRETT Accession Number [id number] CPT4 Codes 53143 (MG Breast Tomosynthesis Scr Bl), 48777 (MG MAMMO 2D SCREENING) Reason For Exam SCREENING Report TIME SINCE LAST MAMMOGRAM: Last mammogram was performed 1 year ago. REASON FOR EXAM: screening, asymptomatic. PROCEDURE: MG BREAST TOMOSYNTHESIS BL SCR: 2019 - 2D/3D Procedure 3D Bilateral CC and MLO view(s) were taken. 2D Bilateral CC and MLO view(s) were taken. Prior study comparison: July 03, 2019, bilateral MG breast tomosynthesis bl scr performed at [facility] at [facility]. July 02, 2018, bilateral MG breast tomosynthesis bl scr performed at [facility]. April 27, 2016, bilateral screening mammogram performed at [facility] at [facility]. TISSUE DENSITY: BIRADS B - There are scattered fibroglandular densities. FINDINGS: No suspicious masses, architectural distortions or suspiciously clustered microcalcifications are identified. There is no evidence of skin thickening or nipple retraction. There are no significant changes when compared with prior studies. Markings on images: BB's = Nipples; skin lesions Open cahto = Palpable Line = Scar 2D digital mammography and tomosynthesis imaging were performed and reviewed with CAD. ASSESSMENT: Category 1 Negative RECOMMENDATION: Routine screening mammogram of both breasts in 1 year. Report Dictated on Cancer Risk Assessment: This risk assessment is based on patient provided information collected in a risk survey taken at the time of this examination. Lifetime breast cancer risk: 10.34% - If greater than or equal to 20%, consider annual mammogram and annual screening Breast MRI or follow up in high risk clinic. Is the patient at elevated risk based on the HBOC criteria? No (Hereditary Breast and Ovarian Cancer) - If yes, consider genetic counseling and testing with high risk follow up. HNPCC mutation risk (Jang Syndrome): 1% - if greater than or equal to 5%, consider genetic counseling, testing and screening colonoscopy. --- Final --- Signed Date and Time: 07/06/2020 3:42 pm Signed by: MD NICK, SILVIA Sanches [place], [place] C-Reactive Proteinon 020 CRP [Mass/Vol] 46.3 mg/L High 0 - 6 mg/L [place], [place] Comment on above: . CKon 04-10-2020 Total CK 65 U/L 30 - 170 U/L [place], [place] COVID-19on 04-10-2020 SARS-CoV-2 Not Detected Expected Result: Not Detected _ Real-time, RT-PCR performed on the Relevant e-solution System by the [facility]. Negative results do not preclude SARS-CoV-2 infection and should not be used as the sole basis for treatment or other patient management decisions. This assay was developed by [employer] and distributed under an Emergency Use Authorization (EUA) granted by the FDA for the qualitative detection of SARS-CoV-2 nucleic acid. [place], [place] Test Performed by [facility], [address] [place] [address] Specimen Source Comment:Nasopharyngeal Swab [place], [place] CT Abdomen Pelvis W Contrast on 04-10-2020 Patient Name: AISHA HA ---CT--- Exam Date/Time 04/10/2020 16:11:[address] Abdomen/Pelvis w/ IV Contrast (IV Onl Ordering Physician MD CAIO, MANDEEP Accession Number [id number] CPT4 Codes 92632 (CT Abdomen/Pelvis w/ IV Contrast (IV Onl), Q9967 (CT ISOVUE 370MG/ML&[id number]&ML &1) Reason For Exam Nausea Report CLINICAL INFORMATION: Chronic nausea. CT ABDOMEN AND PELVIS WITH INTRAVENOUS CONTRAST: Contrast: Isovue-370, [address] ABDOMEN: Volume acquisition CT images are obtained from diaphragm to iliac crests following intravenous contrast only with axial, coronal and sagittal 2-D reconstructions. Oral contrast was withheld by request of the ordering physician. The absence of oral contrast reduces the sensitivity of the examination. Images through the upper abdomen which included the lower chest demonstrate patchy groundglass opacities in both lower lobes, left slightly greater than right which are extremely nonspecific but could be seen with viral pneumonitis including Covid-19 pneumonitis. Other differential considerations include hypersensitivity pneumonitis and focal fibrosis. There is additional scarring or atelectasis in the anteromedial aspect of the right middle lobe. The liver, spleen, pancreas and kidneys are unremarkable in size, configuration and density. There is no intrahepatic biliary dilatation. There is no hydronephrosis. The gallbladder is moderately distended. There is linear hyperdensity in the deep ended portion of the proximal gallbladder which could be multiple small dependent gravel like calculi or wall calcification. No wall thickening or adjacent inflammation is seen. There is no common bile duct dilatation. There is no adrenal gland mass or enlargement. There are two small round well-defined soft tissue density nodules in the inferior splenic hilum and caudal to the spleen most likely small accessory spleens/splenules. No ascites or retroperitoneal lymphadenopathy is seen. No focal mass, fluid collection or inflammatory changes are identified. There is atherosclerotic calcification of a normal caliber abdominal aorta extending into the common iliac arteries. There is prior lower lumbar laminectomy with posterior instrumented fusion. There are degenerative changes of the lumbar spine. CT PELVIS: Volume acquisition CT images were obtained from the iliac crests to the symphysis pubis following intravenous contrast only with axial, coronal and sagittal 2-D reconstructions. There is a well distended urinary bladder without visible abnormality. There is no abnormality of the uterus or adnexa. No focal mass or fluid collection is seen. There is no iliac or inguinal lymphadenopathy. No ascites or inflammatory changes are identified. IMPRESSION: 1. Moderately distended gallbladder with dependent linear hyperdensity which could be dependent gravel like calcified calculi or wall thickening. The gallbladder dilatation is nonspecific and may be physiologic. 2. No evidence of mass, lymphadenopathy or inflammatory process. 3. Patchy groundglass opacities in both lower lobes which are nonspecific but can be seen with viral or hypersensitivity pneumonitis including Covid-19 pneumonitis as well as focal fibrosis. Correlate with clinical parameters. Report Dictated on Workstation: [facility] --- Final --- Dictating Physician: MD MOONEY HARLAN Signed Date and Time: 04/10/2020 4:24 pm Signed by: MD MOONEY HARLAN Transcribed Date and Time: 04/10/2020 4:25 [place], [place] Joe, [facility] Incoming Radiology Results From [facility] - 04/10/2020 4:25 PM EDT Patient Name: AISHA HA ---CT--- Exam Date/Time 04/10/2020 16:11:[address] Abdomen/Pelvis w/ IV Contrast (IV Onl Ordering Physician MD CAIO, MANDEEP Accession Number [id number] CPT4 Codes 02481 (CT Abdomen/Pelvis w/ IV Contrast (IV Onl), Q9967 (CT ISOVUE 370MG/ML&[id number]&ML &1) Reason For Exam Nausea Report CLINICAL INFORMATION: Chronic nausea. CT ABDOMEN AND PELVIS WITH INTRAVENOUS CONTRAST: Contrast: Isovue-370, [address] ABDOMEN: Volume acquisition CT images are obtained from diaphragm to iliac crests following intravenous contrast only with axial, coronal and sagittal 2-D reconstructions. Oral contrast was withheld by request of the ordering physician. The absence of oral contrast reduces the sensitivity of the examination. Images through the upper abdomen which included the lower chest demonstrate patchy groundglass opacities in both lower lobes, left slightly greater than right which are extremely nonspecific but could be seen with viral pneumonitis including Covid-19 pneumonitis. Other differential considerations include hypersensitivity pneumonitis and focal fibrosis. There is additional scarring or atelectasis in the anteromedial aspect of the right middle lobe. The liver, spleen, pancreas and kidneys are unremarkable in size, configuration and density. There is no intrahepatic biliary dilatation. There is no hydronephrosis. The gallbladder is moderately distended. There is linear hyperdensity in the deep ended portion of the proximal gallbladder which could be multiple small dependent gravel like calculi or wall calcification. No wall thickening or adjacent inflammation is seen. There is no common bile duct dilatation. There is no adrenal gland mass or enlargement. There are two small round well-defined soft tissue density nodules in the inferior splenic hilum and caudal to the spleen most likely small accessory spleens/splenules. No ascites or retroperitoneal lymphadenopathy is seen. No focal mass, fluid collection or inflammatory changes are identified. There is atherosclerotic calcification of a normal caliber abdominal aorta extending into the common iliac arteries. There is prior lower lumbar laminectomy with posterior instrumented fusion. There are degenerative changes of the lumbar spine. CT PELVIS: Volume acquisition CT images were obtained from the iliac crests to the symphysis pubis following intravenous contrast only with axial, coronal and sagittal 2-D reconstructions. There is a well distended urinary bladder without visible abnormality. There is no abnormality of the uterus or adnexa. No focal mass or fluid collection is seen. There is no iliac or inguinal lymphadenopathy. No ascites or inflammatory changes are identified. IMPRESSION: 1. Moderately distended gallbladder with dependent linear hyperdensity which could be dependent gravel like calcified calculi or wall thickening. The gallbladder dilatation is nonspecific and may be physiologic. 2. No evidence of mass, lymphadenopathy or inflammatory process. 3. Patchy groundglass opacities in both lower lobes which are nonspecific but can be seen with viral or hypersensitivity pneumonitis including Covid-19 pneumonitis as well as focal fibrosis. Correlate with clinical parameters. Report Dictated on Workstation: [email or web address] --- Final --- Dictating Physician: MD MOONEY HARLAN Signed Date and Time: 04/10/2020 4:24 pm Signed by: MD MOONEY HARLAN Transcribed Date and Time: 04/10/2020 4:25 [place], [place] Comprehensive Metabolic Pane [place] 04-10-2020 Albumin [Mass/Vol] 4.2 g/dL 3.5 - 5 g/dL [place] ALP [Catalytic activity/Vol] 165 U/L High 38 - 126 U/L [place] ALT [Catalytic activity/Vol] 40 U/L High 0 - 34 U/L [place] Comment on above: The ALT test is perf ormed by an updated assay method. Please note that the reference intervals have been changed and are now sex specific. Anion gap [Moles/Vol] 13 mmol/L [place], [place] AST [Catalytic activity/Vol] 53 U/L High 15 - 46 U/L [place] Bilirubin Ql (U) 0.4 mg/dL 0.2 - 1.3 mg/dL [place] Calcium [Mass/Vol] 9.1 mg/dL 8.4 - 10. 4 mg/dL [place] Chloride [Moles/Vol] 80 mmol/L Low 98 - 10 7 mmol/L [place] CO2 [Moles/Vol] 26 mmol/L 22 - 30 mmol/L [place] Creatinine [Mass/Vol] 0.39 mg/dL Low 0.52 - 1.25 mg/dL [place] EGFR IF NonAfrican [place] >90.0 >60 mL/min [place] Comment on above: KDIGO guidelines pro vide the following GFR categories: Stage GFR(ml/min/1.73 m2) Terms G1 >=90 Normal or high G2 60-89 Mildly decreased* G3a 45-59 Mildly to moderately decreased G3b 30-44 Moderately to severely decreased G4 15-29 Severely decreased G5 <15 Kidney failure *Relative to young adult level. In the absence of evidence of kidney damage, neither GFR category G1 nor G2 fulfill the criteria for CKD. The CKD-EPI equation is validated in individuals 18 years of age and older. Currently the best equation for estimating glomerular filtration rate (GFR) from serum creatinine in children is the Bedside Brown equation. It is less accurate in patients with extremes of muscle mass, restriction of dietary protein, ingestion of creatine, extra-renal metabolism of creatinine, or treatment with medications that affect renal tubular creatinine secretion. GFR/1.73 sq M predicted among blacks MDRD (S/P/Bld) [Vol rate/Area] mL/min/{1.73_m2} >60 mL/min [place] Glucose [Mass/Vol] 86 mg/dL 70 - 100 mg/dL [place] Potassium [Moles/Vol] 4.3 mmol/L 3.5 - 5.1 mmol/L [place] Protein [Mass/Vol] 7.8 g/dL 6.3 - 8.2 g/dL [place] Sodium [Moles/Vol] 119 mmol/L Critically low 135 - 1 45 mmol/L [place] Urea nitrogen [Mass/Vol] 6 mg/dL Low 7 - 20 mg/dL [place] Hemogram (CBC) w/Auto Diffon 04-10-2020 Absolute Baso # 0.1 10*3/uL 0 - 0.2 10*3/uL [place] Absolute Neut # 5.6 10*3/uL 1.8 - 7 10*3/uL [place] Basophils/100 WBC (Bld) 0.8 % 0 - 2 % [place] Eosinophils (Bld) [#/Vol] 0.1 10*3/uL 0 - 0.5 10*3/uL [place] Eosinophils/100 WBC (Bld) 0.7 % Low 1 - 6 % [place] Erythrocyte distribution width (RBC) [Ratio] 12.4 % 11.5 - 14.5 % [place] Granulocytes/100 WBC (Bld) 70.3 % 40 - 80 % [place] Hematocrit (Bld) [Volume fraction] 37.3 % 35 - 47 % [place] Hemoglobin (Bld) [Mass/Vol] 13.8 g/dL 11.7 - 16 g/dL [place] Interpretation and review of laboratory results Abnormal [place] Lymphocytes (Bld) [#/Vol] 1.8 10*3/uL 1 - 4.3 10*3/uL [place] Lymphocytes/100 WBC (Bld) 22.9 % 20 - 40 % [place] MCH (RBC) [Entitic mass] 34.0 pg 26 - 34 pg [place] MCHC (RBC) [Mass/Vol] 36.9 % High 32 - 36 % [place] MCV (RBC) [Entitic vol] 92.3 fL 79 - 98 fL [place], [place] Monocytes (Bld) [#/Vol] 0.4 10*3/uL 0 - 0.8 10*3/uL [place] Monocytes/100 WBC (Bld) 5.3 % 2 - 10 % [place] Platelet mean volume (Bld) [Entitic vol] 6.7 fL Low 7.4 - 10.4 fL [place] Platelets (Bld) [#/Vol] 311 10*3/uL 140 - 440 10*3/uL [place] RBC (Bld) [#/Vol] 4.04 10*6/uL 3.8 - 5.2 10*6/uL [place] WBC (Bld) [#/Vol] 8.0 10*3/uL 3.6 - 10.7 10*3/uL [place] Test Performed by [facility], [address] , [address] Lactate Dehydrogenaseon 03-23 LD 160 U/L 50 - 170 U/L [place] Lactic Acid, Plasmaon 2019 Lactate [Moles/Vol] 1 mmol/L 0.7 - 2 mmol/L [place] Test Performed by [facility], [address] , [address] Lipaseon 04-10-2020 Lipase [Catalytic activity/Vol] 95 U/L 23 - 300 U/L [place] Otheron 04-10-2020 Interpretation and review of laboratory results Abnormal [place] Test Performed by [facility], [address] , [address] Test Performed by [facility], [address] , [address] Protime-INRon 04-10-2020 INR Coag (PPP) [Relative time] 0.9 {INR} [place] Comment on above: Recommended Anticoag ulant Therapy: SEE BELOW ----- INR of 2.0 - 3.0 : - Prophylaxis of Venous Thrombosis (high-risk surgery) - Treatment of Venous Thrombosis - Treatment of Pulmonary Embolism (Includes tissue heart valves, Acute Myocardial Infarction to prevent systemic embolism, Valvular Heart Disease, and Atrial Fibrillation) ----- INR of 2.5 - 3.5 : - Mechanical Prosthetic Valves (high risk) - If oral anticoagulant therapy is used to prevent Myocardial Infarction PT Coag (PPP) [Time] 10.3 s 9 - 12 s [place] Comment on above: . Sedimentation Rateon 06-19-2 020 Interpretation and review of laboratory results Abnormal [place] Sed Rate 65 mm/h High 0 - 20 mm/h [place] Urinalysison 04-10-2020 Appearance (U) Clear Clear NA [place] Comment on above: . Bilirubin Urine Negative Negative mg/dL [place] Comment on above: . Color (U) COLORLESS Lt. Yellow NA [place] Comment on above: . Glucose, Ur Normal Normal (<70) mg/dL [place] Comment on above: . Interpretation and review of laboratory results Abnormal [place] Ketones Ql (U) Negative Negative mg/dL [place] Comment on above: . LEUKOCYTES, UA Negative Negative Anita/uL [place] Comment on above: . Nitrite, Urine Negative Negative NA [place] Comment on above: . Occult Blood,Urine Negative Negative mg/dL [place] Comment on above: . pH (U) 7.0 [pH] [place] Comment on above: . Protein (U) [Mass/Vol] Negative Negat jessica mg/dL [place] Comment on above: . Specific [place], Urine <1.005 Abnormal M [place] Comment on above: . Urobilinogen, Urine Normal Normal ( 0-1) mg/dL [place] Comment on above: . Test Performed by [facility], [facility] [address] , [address] Basic Metabolic Panelon 11-23 Anion gap [Moles/Vol] 9 mmol/L [facility] Work Phone: Calcium [Mass/Vol] 9.5 mg/dL 8.4 - 10. 4 mg/dL [facility] Work Phone: Chloride [Moles/Vol] 101 mmol/L 98 - 10 7 mmol/L [facility] Work Phone: CO2 [Moles/Vol] 25 mmol/L 22 - 30 mmol/L [facility] Work Phone: Creatinine [Mass/Vol] 0.43 mg/dL Low 0.52 - 1.25 mg/dL [facility] Work Phone: [phone] EGFR IF NonAfrican [place]ese >60.0 >60 mL/min [facility] Work Phone: Comment on above: Source- MDRD equatio n with creatinine calibration to IDMS(NKDEP) eGFR not recommended for drug dose adjustment GFR/1.73 sq M predicted among blacks MDRD (S/P/Bld) [Vol rate/Area] mL/min/{1.73_m2} >60 mL/min [facility] Work Phone: Glucose [Mass/Vol] 115 mg/dL High 70 - 100 mg/dL [facility] Work Phone: [phone] Interpretation and review of laboratory results Abnormal [facility] Work Phone: Potassium [Moles/Vol] 3.3 mmol/L Low 3.5 - 5.1 mmol/L [facility] Work Phone: Sodium [Moles/Vol] 135 mmol/L 135 - 145 mmol/L [facility] Work Phone: Urea nitrogen [Mass/Vol] 4 mg/dL Low 7 - 20 mg/dL [facility] Work Phone: [phone] Test Performed by [facility], [facility] [address] [place] [id number] [facility] Work Phone: [phone] Hemogram (CBC) w/Auto Diffon 12-04-2019 Absolute Baso # 0.1 10*3/uL 0 - 0.2 10*3/uL [facility] Work Phone: [phone] Absolute Neut # 7.3 10*3/uL High 1.8 - 7 10*3/uL [facility] Work Phone: Basophils/100 WBC (Bld) 1.2 % 0 - 2 % S [facility] Work Phone: Eosinophils (Bld) [#/Vol] 0.1 10*3/uL 0 - 0.5 10*3/uL [facility] Work Phone: [phone] Eosinophils/100 WBC (Bld) 0.9 % Low 1 - 6 % [facility] Work Phone: Erythrocyte distribution width (RBC) [Ratio] 13.9 % 11.5 - 14.5 % [facility] Work Phone: 1 Granulocytes/100 WBC (Bld) 75.9 % 40 - 80 % [facility] Work Phone: Hematocrit (Bld) [Volume fraction] 45.6 % 35 - 47 % [facility] Work Phone: Hemoglobin (Bld) [Mass/Vol] 15.9 g/dL 11.7 - 16 g/dL [facility] Work Phone: Interpretation and review of laboratory results Abnormal [facility] Work Phone: Lymphocytes (Bld) [#/Vol] 1.6 10*3/uL 1 - 4.3 10*3/uL [facility] Work Phone: Lymphocytes/100 WBC (Bld) 16.9 % Low 20 - 40 % [facility] Work Phone: MCH (RBC) [Entitic mass] 37.0 pg High 26 - 34 pg [facility] Work Phone: MCHC (RBC) [Mass/Vol] 34.8 % 32 - 36 % [facility] Work Phone: MCV (RBC) [Entitic vol] 106.3 fL High 79 - 98 fL S [facility] Work Phone: Monocytes (Bld) [#/Vol] 0.5 10*3/uL 0 - 0.8 10*3/uL [facility] Work Phone: Monocytes/100 WBC (Bld) 5.1 % 2 - 10 % S [facility] Work Phone: Platelet mean volume (Bld) [Entitic vol] 8.0 fL 7.4 - 10.4 fL [facility] Work Phone: Platelets (Bld) [#/Vol] 258 10*3/uL 140 - 440 10*3/uL [facility] Work Phone: RBC (Bld) [#/Vol] 4.29 10*6/uL 3.8 - 5.2 10*6/uL [facility] Work Phone: WBC (Bld) [#/Vol] 9.6 10*3/uL 3.6 - 10.7 10*3/uL [facility] Work Phone: [phone] Otheron 12-04-2019 Test Performed by [facility], [address] , [place] [id number] [facility] Work Phone: [phone] RBC MORPHOLOGYon 12-04-2019 RBC morphology finding Nom (Bld) ABNORMAL [facility] Work Phone: [phone] Sodium [Moles/Vol] Moderate [facility] Work Phone: [phone] Rapid influenza A/B antigens on 12-04-2019 INFLUENZA A Not Detected Not Detected NA [facility] Work Phone: [phone] INFLUENZA B Not Detected Not Detected NA [facility] Work Phone: [phone] Comment on above: Method: Isothermal n ucleic acid amplification technology. Test Performed by [facility], [address] , [place] [address] [facility] Work Phone: [phone] Troponin x1on 12-04-2019 Troponin I.cardiac [Mass/Vol] 0.013 ng/mL 0 - 0.034 ng/mL [facility] Work Phone: Comment on above: . Test Performed by [facility], [address] [place] [address] [facility] Work Phone: XR CHEST STANDARD (2 VW)on 0 12-04-2019 Joe, [facility] Results From [facility] - 12/04/2019 10:15 AM EST Patient Name: AISHA HA ---Diagnostic Radiology--- Exam Date/Time 12/04/2019 09:56:03 EST Exam CR Chest PA/LAT Ordering Physician MD KEBEDE VIJAY Accession Number [id number] CPT4 Codes 38951 () Reason For Exam cough Report PA AND LATERAL CHEST CLINICAL INDICATION: Cough TECHNIQUE: PA and Lateral chest COMPARISON: 09/21/2016 FINDINGS: The cardiac and mediastinal silhouettes are normal. The lungs are clear. There is no sizable pleural effusion. Postsurgical changes in the lower cervical spine. Degenerative changes are present in the visualized spine. IMPRESSION: No acute process. Report Dictated on --- Final --- Dictating Physician: MD ELIZABETH NICHOLAS Signed Date and Time: 12/04/2019 10:13 am Signed by: MD ELIZABETH NICHOLAS Transcribed Date and Time: 12/04/2019 10:14 [facility] Work Phone: Patient Name: AISHA HA ---Diagnostic Radiology--- Exam Date/Time 12/04/2019 09:56:03 EST Exam CR Chest PA/LAT Ordering Physician MD KEBEDE VIJAY Accession Number [id number] CPT4 Codes 35787 () Reason For Exam cough Report PA AND LATERAL CHEST CLINICAL INDICATION: Cough TECHNIQUE: PA and Lateral chest COMPARISON: 09/21/2016 FINDINGS: The cardiac and mediastinal silhouettes are normal. The lungs are clear. There is no sizable pleural effusion. Postsurgical changes in the lower cervical spine. Degenerative changes are present in the visualized spine. IMPRESSION: No acute process. Report Dictated on --- Final --- Dictating Physician: MD ELIZABETH NICHOLAS Signed Date and Time: 12/04/2019 10:13 am Signed by: MD ELIZABETH NICHOLAS Transcribed Date and Time: 12/04/2019 10:14 [facility] Work Phone: US ABDOMEN COMPLETEon 2018 Patient Name: AISHA HA ---Ultrasound--- Exam Date/Time 05/31/2019 10:41:35 EDT Exam US Abdomen Complete Ordering Physician MD CORREA MATTHEW PATRICK Accession Number [id number] CPT4 Codes 87922 () Reason For Exam ABNORMAL LIVER FUNCTION TESTS Report ULTRASOUND COMPLETE ABDOMEN CLINICAL INDICATION: Elevated LFTs TECHNIQUE: Ultrasound of the complete abdomen COMPARISON: None FINDINGS: Liver: Generalized increased echogenicity corresponding to fatty infiltration. Normal size and contour. No focal lesion identified. Gallbladder: Normal. No pericholecystic inflammatory change. Negative sonographic Rivera sign reported by the robotics technologist. Bile ducts: No intrahepatic and extrahepatic biliary dilatation Common bile duct: 3 mm Pancreas: Visualized portions of the head, body, and tail are normal Right kidney: Normal parenchymal echogenicity without mass or hydronephrosis. Dimensions: 11.4 x 5.7 x 3.8 cm Left kidney: Normal parenchymal echogenicity without mass or hydronephrosis. Dimensions: 10.8 x 5.4 x 5.6 cm Spleen: Normal echogenicity and size. No mass identified. Dimensions: 9.9 x 5.0 x 8.1 cm Aorta and Inferior vena cava: Visualized portions are normal Ascites: None IMPRESSION: Generalized increased hepatic echogenicity corresponding to fatty infiltration. No focal hepatic lesion identified. Report Dictated on Workstation: [employer] --- Final --- Dictating Physician: MD CARMONA JASON Signed Date and Time: 05/31/2019 10:50 am Signed by: MD CARMONA JASON Transcribed Date and Time: 05/31/2019 10:51 [place] Joe, [facility] Incoming Radiology Results From [facility] - 05/31/2019 10:52 AM EDT Patient Name: AISHA HA ---Ultrasound--- Exam Date/Time 05/31/2019 10:41:35 EDT Exam US Abdomen Complete Ordering Physician MD CORREA MATTHEW PATRICK Accession Number [id number] CPT4 Codes 10964 () Reason For Exam ABNORMAL LIVER FUNCTION TESTS Report ULTRASOUND COMPLETE ABDOMEN CLINICAL INDICATION: Elevated LFTs TECHNIQUE: Ultrasound of the complete abdomen COMPARISON: None FINDINGS: Liver: Generalized increased echogenicity corresponding to fatty infiltration. Normal size and contour. No focal lesion identified. Gallbladder: Normal. No pericholecystic inflammatory change. Negative sonographic Rivera sign reported by the robotics technologist. Bile ducts: No intrahepatic and extrahepatic biliary dilatation Common bile duct: 3 mm Pancreas: Visualized portions of the head, body, and tail are normal Right kidney: Normal parenchymal echogenicity without mass or hydronephrosis. Dimensions: 11.4 x 5.7 x 3.8 cm Left kidney: Normal parenchymal echogenicity without mass or hydronephrosis. Dimensions: 10.8 x 5.4 x 5.6 cm Spleen: Normal echogenicity and size. No mass identified. Dimensions: 9.9 x 5.0 x 8.1 cm Aorta and Inferior vena cava: Visualized portions are normal Ascites: None IMPRESSION: Generalized increased hepatic echogenicity corresponding to fatty infiltration. No focal hepatic lesion identified. Report Dictated on Workstation: [id number] --- Final --- Dictating Physician: MD CARMONA JASON Signed Date and Time: 05/31/2019 10:50 am Signed by: MD CARMONA JASON Transcribed Date and Time: 05/31/2019 10:51 [place] Clinical Summary: HMSPatient IDon 04-24-2018 OOP Invalid Interpretation Code [facility] Work Phone: Office Visit: Postop - subse quent visit, Rm: 1on 04-24-2018 NEGATED: Highlighted rowDocumentation of current medications (procedure) Done Invalid Interpretation Code [facility] Work Phone: NEGATED: Highlighted rowSmoking cessation education (procedure) Yes Invalid Interpretation Code [facility] Work Phone: Otheron 01-05-2007 CONVERTED ELECTRONIC SIGNATURE TOM PHILLIPS M.D. (Electronic signature on file) Final Signed Out: 01/05/2007 16:21 [facility] CONVERTED FINAL DIAGNOSIS FIBROCARTILAGE CONSISTENT WITH INTERVERTEBRAL DISC AND STRIATED MUSCLE. (LEFT L5-S1 MICRODISCECTOMY). [facility] CONVERTED ORDERING PROVIDER Ordering Provider: ARIE SALGADO [facility] Vital Signs Date Time Vital Sign Value Performing Clinician Facility 07-21-2025 16:58-0400 Body temperature 98.2 [degF] Dr. Geovani Gay MD Work Phone: [facility] 07-21-2025 16:58-0400 Diastolic blood pressure 57 mm[Hg] Dr. Geovani Gay MD Work Phone: [facility] 07-21-2025 16:58-0400 Heart rate 76 /min Dr. Geovani Gay MD Work Phone: [facility] 07-21-2025 16:58-0400 Respiratory rate 20 /min Dr. Geovani Gay MD Work Phone: [facility] 07-21-2025 16:58-0400 SaO2% (BldA) [Mass fraction] 96 % Dr. Geovani Gay MD Work Phone: [facility] 07-21-2025 16:58-0400 Systolic blood pressure 145 mm[Hg] Dr. Geovani Gay MD Work Phone: [facility] 07-21-2025 16:00-0400 Inhaled oxygen flow rate 3 L/min Dr. Geovani Gay MD Work Phone: [phone] [place] [address] 07-21-2025 12:40-0400 Body height 149.[address] Geovani Gay MD Work Phone: [facility] 07-14-2025 13:54-0400 Body mass index (BMI) [Ratio] 32.3 kg/m2 Dr. Geovani Gay MD Work Phone: [facility] 07-14-2025 13:54-0400 Body temperature 96.8 [degF] Dr. Geovani Gay MD Work Phone: [facility] 07-14-2025 13:54-0400 Body weight 72.[address] Geovani Gay MD Work Phone: [facility] 07-14-2025 13:54-0400 Diastolic blood pressure 61 mm[Hg] Dr. Geovani Gay MD Work Phone: [facility] 07-14-2025 13:54-0400 Heart rate 81 /min Dr. Geovani Gay MD Work Phone: [facility] 07-14-2025 13:54-0400 Inhaled oxygen flow rate 3 L/min Dr. Geovani Gay MD Work Phone: [facility] 07-14-2025 13:54-0400 Respiratory rate 14 /min Dr. Geovani Gay MD Work Phone: [facility] 07-14-2025 13:54-0400 SaO2% (BldA) [Mass fraction] 97 % Dr. eGovani Gay MD Work Phone: [facility] 07-14-2025 13:54-0400 Systolic blood pressure 144 mm[Hg] Dr. Geovani Gay MD Work Phone: [phone] [place] [address] 07-07-2025 16:03-0400 Body height 151.[address] Geovani Gay MD Work Phone: [phone])870-056020 [place] [address] 07-07-2025 16:02-0400 Body mass index (BMI) [Ratio] 31.6 kg/m2 Dr. Geovani Gay MD Work Phone: [phone])[phone] [place] [address] 07-07-2025 16:02-0400 Body temperature 98.8 [degF] Dr. Geovani Gay MD Work Phone: [phone])[phone] [place] [address] 07-07-2025 16:02-0400 Body weight 73.[address] Geovani Gay MD Work Phone: [phone] [place] [address] 07-07-2025 16:02-0400 Diastolic blood pressure 76 mm[Hg] Dr. Geovani Gay MD Work Phone: [phone])650-268820 [place] [address] 07-07-2025 16:02-0400 Heart rate 80 /min Dr. Geovani Gay MD Work Phone: [phone])716-625020 [place] [address] 07-07-2025 16:02-0400 Respiratory rate 18 /min Dr. Geovani Gay MD Work Phone: [facility] 07-07-2025 16:02-0400 SaO2% (BldA) [Mass fraction] 94 % Dr. Geovani Gay MD Work Phone: [facility] 07-07-2025 16:02-0400 Systolic blood pressure 126 mm[Hg] Dr. Geovani Gay MD Work Phone: [facility] 05-07-2025 09:37-0400 Body height 152.4 cm Gena Jones MD Work Phone: [facility] [employer] 05-07-2025 09:37-0400 Body mass index (BMI) [Ratio] 29.88 kg/m2 Gena Jones MD Work Phone: [facility] [employer] 05-07-2025 09:37-0400 Body temperature 96.91 [degF] Gena Jones MD Work Phone: [facility] [employer] 05-07-2025 09:37-0400 Body weight 69.4 kg Gena Jones MD Work Phone: [facility] [employer] 05-07-2025 09:37-0400 Diastolic blood pressure 60 mm[Hg] Gena Jones MD Work Phone: [facility] [employer] 05-07-2025 09:37-0400 Heart rate 81 /min Gena Jones MD Work Phone: [facility] [employer] 05-07-2025 09:37-0400 Respiratory rate 20 /min Gena Jones MD Work Phone: [facility] [employer] 05-07-2025 09:37-0400 SaO2% (BldA) [Mass fraction] 99 % Gena Jones MD Work Phone: [facility] [employer] 05-07-2025 09:37-0400 Systolic blood pressure 168 mm[Hg] Gena Jones MD Work Phone: [facility] [employer] 04-07-2025 10:05-0400 Body height 152.4 cm Linda Gonzales [employer] Work Phone: [facility] [employer] 04-07-2025 10:05-0400 Body mass index (BMI) [Ratio] 30.04 kg/m2 Linda Gonzales [employer] Work Phone: [facility] [employer] 04-07-2025 10:05-0400 Body weight 69.76 kg Linda Gonzales [employer] Work Phone: [facility] [employer] 04-07-2025 10:05-0400 Diastolic blood pressure 61 mm[Hg] Linda Gonzales [employer] - [employer] Work Phone: [facility] 04-07-2025 10:05-0400 Heart rate 79 /min Linda Gonzales [employer] - [employer] Work Phone: [facility] 04-07-2025 10:05-0400 SaO2% (BldA) [Mass fraction] 94 % Linda Gonzales [employer] - [employer] Work Phone: [facility] Comment on above: 3 L 04-07-2025 10:05-0400 Systolic blood pressure 100 mm[Hg] Linda Christian [employer] - [employer] Work Phone: [facility] 03-25-2025 16:44-0400 Body temperature 97 [degF] Dr. Geovani Gay MD Work Phone: [facility] 03-25-2025 16:44-0400 Diastolic blood pressure 75 mm[Hg] Dr. Geovani Gay MD Work Phone: [facility] 03-25-2025 16:44-0400 Heart rate 99 /min Dr. Geovani Gay MD Work Phone: [facility] 03-25-2025 16:44-0400 Inhaled oxygen flow rate 2.5 L/min Dr. Geovani Gay MD Work Phone: [facility] 03-25-2025 16:44-0400 Respiratory rate 16 /min Dr. Geovani Gay MD Work Phone: [facility] 03-25-2025 16:44-0400 SaO2% (BldA) [Mass fraction] 97 % Dr. Geovani Gay MD Work Phone: [facility] 03-25-2025 16:44-0400 Systolic blood pressure 152 mm[Hg] Dr. Geovani Gay MD Work Phone: [facility] 03-25-2025 12:15-0400 Body height 151.[address] Geovani Gay MD Work Phone: [facility] 03-25-2025 12:15-0400 Body mass index (BMI) [Ratio] 30.9 kg/m2 Dr. Geovani Gay MD Work Phone: [facility] 03-25-2025 12:15-0400 Body weight 71.[address] Geovani Gay MD Work Phone: [facility] 03-20-2025 22:10-0400 Diastolic blood pressure 68 mm[Hg] Dr. Geovani Gay MD Work Phone: [facility] 03-20-2025 22:10-0400 Heart rate 85 /min Dr. Geovani Gay MD Work Phone: [facility] 03-20-2025 22:10-0400 Inhaled oxygen flow rate 3 L/min Dr. Geovani Gay MD Work Phone: [facility] 03-20-2025 22:10-0400 Respiratory rate 16 /min Dr. Geovani Gay MD Work Phone: [facility] 03-20-2025 22:10-0400 SaO2% (BldA) [Mass fraction] 95 % Dr. Geovani Gay MD Work Phone: [facility] 03-20-2025 22:10-0400 Systolic blood pressure 162 mm[Hg] Dr. Geovani Gay MD Work Phone: [facility] 03-20-2025 21:25-0400 Body temperature 99.5 [degF] Dr. Geovani Gay MD Work Phone: [facility] 03-20-2025 17:04-0400 Body height 152.[address] Geovani Gay MD Work Phone: [facility] 03-04-2025 11:47-0400 Diastolic blood pressure 70 mm[Hg] Geovani Gay MD Work Phone: [facility] 03-04-2025 11:47-0400 Heart rate 60 /min Geovani Gay MD Work Phone: [facility] 03-04-2025 11:47-0400 Systolic blood pressure 136 mm[Hg] Geovani Gay MD Work Phone: [facility] [employer] 03-04-2025 11:14-0400 Body height 152.4 cm Geovani Gay MD Work Phone: [facility] [employer] 03-04-2025 11:14-0400 Body mass index (BMI) [Ratio] 30.66 kg/m2 Geovani Gay MD Work Phone: [facility] [employer] 03-04-2025 11:14-0400 Body weight 71.22 kg Geovani Gay MD Work Phone: [facility] [employer] 03-04-2025 11:14-0400 SaO2% (BldA) [Mass fraction] 92 % Geovani Gay MD Work Phone: [facility] [employer] 02-18-2025 10:47-0400 Diastolic blood pressure 54 mm[Hg] Geovani Gay MD Work Phone: [facility] [employer] 02-18-2025 10:47-0400 Heart rate 80 /min Geovani Gay MD Work Phone: [facility] [employer] 02-18-2025 10:47-0400 Systolic blood pressure 102 mm[Hg] Geovani Gay MD Work Phone: [facility] [employer] 02-18-2025 10:21-0400 Body height 152.4 cm Geovani Gay MD Work Phone: [facility] [employer] 02-18-2025 10:21-0400 Body mass index (BMI) [Ratio] 30 kg/m2 Geovani Gay MD Work Phone: [facility] [employer] 02-18-2025 10:21-0400 Body temperature 98.2 [degF] Geovani Gay MD Work Phone: [facility] [employer] 02-18-2025 10:21-0400 Body weight 69.67 kg Geovani Gay MD Work Phone: [facility] [employer] 02-18-2025 10:21-0400 SaO2% (BldA) [Mass fraction] 95 % Geovani Gay MD Work Phone: [facility] [employer] 02-06-2025 15:13-0400 Diastolic blood pressure 66 mm[Hg] Geovani Gay MD Work Phone: [facility] [employer] 02-06-2025 15:13-0400 Heart rate 80 /min Geovani Gay MD Work Phone: [facility] [employer] 02-06-2025 15:13-0400 Systolic blood pressure 116 mm[Hg] Geovani Gay MD Work Phone: [facility] [employer] 02-06-2025 14:52-0400 Body height 152.4 cm Geovani Gay MD Work Phone: [facility] [employer] 02-06-2025 14:52-0400 Body mass index (BMI) [Ratio] 30.08 kg/m2 Geovani Gay MD Work Phone: [facility] [employer] 02-06-2025 14:52-0400 Body weight 69.85 kg Geovani Gay MD Work Phone: [facility] [employer] 02-06-2025 14:52-0400 SaO2% (BldA) [Mass fraction] 94 % Geovani Gay MD Work Phone: [facility] [employer] 01-09-2025 14:44-0400 Respiratory rate 18 /min Elina Bridenthal [employer] Work Phone: [facility] [employer] 01-09-2025 14:44-0400 SaO2% (BldA) [Mass fraction] 95 % Elina Bridenthal [employer] Work Phone: [email or web address] Comment on above: 2.5 L, after nebuliz er treatment 01-09-2025 14:20-0400 Diastolic blood pressure 85 mm[Hg] Elina Bridenthal [employer] Work Phone: [facility] [employer] 01-09-2025 14:20-0400 Heart rate 85 /min Elina Bridenthal [employer] Work Phone: [email or web address] Comment on above: apical 01-09-2025 14:20-0400 Systolic blood pressure 138 mm[Hg] Elina Edwards [employer] Work Phone: [facility] [employer] 01-09-2025 13:56-0400 Body height 152.4 cm Elina Crockeral [employer] Work Phone: [facility] [employer] 01-09-2025 13:56-0400 Body mass index (BMI) [Ratio] 29.26 kg/m2 Elina Kimenthal [employer] Work Phone: [facility] [employer] 01-09-2025 13:56-0400 Body temperature 97.81 [degF] Elina Crockeral [employer] Work Phone: [facility] [employer] 01-09-2025 13:56-0400 Body weight 67.95 kg Elina Crockeral [employer] Work Phone: [facility] [employer] 09-12-2024 11:36-0500 Body height 152.4 cm Geovani Gay MD Work Phone: [facility] [employer] 09-12-2024 11:36-0500 Body mass index (BMI) [Ratio] 27.93 kg/m2 Geovani Gay MD Work Phone: [facility] [employer] 09-12-2024 11:36-0500 Body weight 64.86 kg Geovani Gay MD Work Phone: [facility] [employer] 09-12-2024 11:36-0500 Diastolic blood pressure 56 mm[Hg] Geovani Gay MD Work Phone: [facility] [employer] 09-12-2024 11:36-0500 Heart rate 82 /min Geovani Gay MD Work Phone: [facility] [employer] 09-12-2024 11:36-0500 SaO2% (BldA) [Mass fraction] 94 % Geovani Gay MD Work Phone: [facility] [employer] 09-12-2024 11:36-0500 Systolic blood pressure 128 mm[Hg] Geovani Gay MD Work Phone: [facility] [employer] 08-19-2024 11:02-0400 Body height 152.4 cm Geovani Gay MD Work Phone: [facility] [employer] 08-19-2024 11:02-0400 Body mass index (BMI) [Ratio] 26.95 kg/m2 Geovani Gay MD Work Phone: [facility] [employer] 08-19-2024 11:02-0400 Body weight 62.6 kg Geovani Gay MD Work Phone: [facility] [employer] 08-14-2024 14:11-0400 Diastolic blood pressure 58 mm[Hg] Linda Gonzales [employer] Work Phone: [facility] [employer] 08-14-2024 14:11-0400 Systolic blood pressure 132 mm[Hg] Linda Gonzales [employer] Work Phone: [facility] [employer] 08-14-2024 13:55-0400 Body height 152.4 cm Linda Gonzales [employer] Work Phone: [facility] [employer] 08-14-2024 13:55-0400 Body mass index (BMI) [Ratio] 27.03 kg/m2 Linda Gonzales [employer] Work Phone: [facility] [employer] 08-14-2024 13:55-0400 Body temperature 99.39 [degF] Linda Gonzales [employer] Work Phone: [facility] [employer] 08-14-2024 13:55-0400 Body weight 62.78 kg Linda Gonzales [employer] Work Phone: [facility] [employer] 08-14-2024 13:55-0400 Heart rate 72 /min Linda Gonzales [employer] Work Phone: [facility] [employer] 08-14-2024 13:55-0400 SaO2% (BldA) [Mass fraction] 96 % Linda Gonzales [employer] Work Phone: [facility] [employer] 06-13-2024 10:45-0400 Body height 152.4 cm Geovani Gay MD Work Phone: [email or web address] 06-13-2024 10:45-0400 Body mass index (BMI) [Ratio] 27.54 kg/m2 Geovani Gay MD Work Phone: [facility] [employer] 06-13-2024 10:45-0400 Body weight 63.96 kg Geovani Gay MD Work Phone: [email or web address] 06-13-2024 10:45-0400 Diastolic blood pressure 55 mm[Hg] Geovani Gay MD Work Phone: [email or web address] 06-13-2024 10:45-0400 Heart rate 79 /min Geovani Gay MD Work Phone: [facility] [employer] 06-13-2024 10:45-0400 SaO2% (BldA) [Mass fraction] 97 % Geovani Gay MD Work Phone: [facility] [employer] 06-13-2024 10:45-0400 Systolic blood pressure 129 mm[Hg] Geovani Gay MD Work Phone: [facility] [employer] 05-29-2024 10:29-0400 Diastolic blood pressure 64 mm[Hg] Linda Gonzales [employer] Work Phone: [facility] [employer] 05-29-2024 10:29-0400 Systolic blood pressure 132 mm[Hg] Linda Gonzales [employer] Work Phone: [facility] [employer] 05-29-2024 09:54-0400 Body height 152.4 cm Linda Gonzales [employer] Work Phone: [facility] [employer] 05-29-2024 09:54-0400 Body mass index (BMI) [Ratio] 26.44 kg/m2 Linda Gonzales [employer] Work Phone: [facility] [employer] 05-29-2024 09:54-0400 Body weight 61.42 kg Linda Gonzales [employer] Work Phone: [email or web address] 05-29-2024 09:54-0400 Heart rate 62 /min Linda Gonzales [employer] Work Phone: [facility] [employer] 05-29-2024 09:54-0400 SaO2% (BldA) [Mass fraction] 99 % Linda Gonzales [employer] Work Phone: [facility] [employer] 03-28-2024 10:05-0400 Body height 152.4 cm Geovani Gay MD Work Phone: [facility] [employer] 03-28-2024 10:05-0400 Body mass index (BMI) [Ratio] 26.76 kg/m2 Geovani Gay MD Work Phone: [facility] [employer] 03-28-2024 10:05-0400 Body weight 62.14 kg Geovani Gay MD Work Phone: [facility] [employer] 03-28-2024 10:05-0400 Diastolic blood pressure 57 mm[Hg] Geovani Gay MD Work Phone: [facility] [employer] 03-28-2024 10:05-0400 Heart rate 78 /min Geovani Gay MD Work Phone: [facility] [employer] 03-28-2024 10:05-0400 SaO2% (BldA) [Mass fraction] 95 % Geovani Gay MD Work Phone: [facility] [employer] 03-28-2024 10:05-0400 Systolic blood pressure 94 mm[Hg] Geovani Gay MD Work Phone: [email or web address] 12-08-2023 10:29-0500 Diastolic blood pressure 71 mm[Hg] Geovani Gay MD Work Phone: [email or web address] 12-08-2023 10:29-0500 Heart rate 80 /min Geovani Gya MD Work Phone: [email or web address] 12-08-2023 10:29-0500 Systolic blood pressure 138 mm[Hg] Geovani Gay MD Work Phone: [email or web address] 12-08-2023 10:02-0500 Body height 152.4 cm Geovani Gay MD Work Phone: [email or web address] 12-08-2023 10:02-0500 Body mass index (BMI) [Ratio] 28.63 kg/m2 Geovani Gay MD Work Phone: [facility] [employer] 12-08-2023 10:02-0500 Body weight 66.5 kg Geovani Gay MD Work Phone: [facility] [employer] 12-08-2023 10:02-0500 SaO2% (BldA) [Mass fraction] 96 % Geovani Gay MD Work Phone: [facility] [employer] 10-05-2023 10:25-0500 Diastolic blood pressure 83 mm[Hg] Geovani Gay MD Work Phone: [facility] [employer] 10-05-2023 10:25-0500 Heart rate 86 /min Geovani Gay MD Work Phone: [facility] [employer] 10-05-2023 10:25-0500 SaO2% (BldA) [Mass fraction] 96 % Geovani Gay MD Work Phone: [facility] [employer] 10-05-2023 10:25-0500 Systolic blood pressure 152 mm[Hg] Geovani Gay MD Work Phone: [facility] [employer] 10-05-2023 10:01-0500 Body height 152.4 cm Geovani Gay MD Work Phone: [facility] [employer] 10-05-2023 10:01-0500 Body mass index (BMI) [Ratio] 28.71 kg/m2 Geovani Gay MD Work Phone: [facility] [employer] 10-05-2023 10:01-0500 Body temperature 98.29 [degF] Geovani Gay MD Work Phone: [facility] [employer] 10-05-2023 10:01-0500 Body weight 66.68 kg Geovani Gay MD Work Phone: [facility] [employer] 09-08-2023 09:39-0500 Body height 152.4 cm Geovani Gay MD Work Phone: [email or web address] 09-08-2023 09:39-0500 Body mass index (BMI) [Ratio] 28.51 kg/m2 Geovani Gay MD Work Phone: [email or web address] 09-08-2023 09:39-0500 Body weight 66.22 kg Geovani Gay MD Work Phone: [email or web address] 09-08-2023 09:39-0500 Diastolic blood pressure 73 mm[Hg] Geovani Gay MD Work Phone: [email or web address] 09-08-2023 09:39-0500 Heart rate 77 /min Geovani Gay MD Work Phone: [email or web address] 09-08-2023 09:39-0500 SaO2% (BldA) [Mass fraction] 97 % Geovani Gay MD Work Phone: [email or web address] 09-08-2023 09:39-0500 Systolic blood pressure 127 mm[Hg] Geovani Gay MD Work Phone: [email or web address] 08-17-2023 10:46-0400 Body height 152.4 cm Geovani Gay MD Work Phone: [email or web address] 08-17-2023 10:46-0400 Body mass index (BMI) [Ratio] 31.25 kg/m2 Geovani Gay MD Work Phone: [email or web address] 08-17-2023 10:46-0400 Body weight 72.58 kg Geovani Gay MD Work Phone: [email or web address] 06-15-2023 09:57-0400 Diastolic blood pressure 60 mm[Hg] Geovani Gay MD Work Phone: [email or web address] 06-15-2023 09:57-0400 Heart rate 77 /min Geovani Gay MD Work Phone: [email or web address] 06-15-2023 09:57-0400 SaO2% (BldA) [Mass fraction] 90 % Geovani Gay MD Work Phone: [email or web address] Comment on above: at rest on O2 06-15-2023 09:57-0400 Systolic blood pressure 128 mm[Hg] Geovani Gay MD Work Phone: [facility] 06-15-2023 09:19-0400 Body height 152.4 cm Geovani Gay MD Work Phone: [facility] 06-15-2023 09:19-0400 Body mass index (BMI) [Ratio] 29.18 kg/m2 Geovani Gay MD Work Phone: [facility] 06-15-2023 09:19-0400 Body weight 67.77 kg Geovani Gay MD Work Phone: [facility] 01-02-2023 11:20-0400 Body temperature 97.7 [degF] Dr. Geovani Gay Work Phone: [facility] 01-02-2023 11:20-0400 Diastolic blood pressure 50 mm[Hg] Dr. Geovani Gay Work Phone: [facility] 01-02-2023 11:20-0400 Heart rate 71 /min Dr. Geovani Gay Work Phone: [facility] 01-02-2023 11:20-0400 Respiratory rate 16 /min Dr. Geovani Gay Work Phone: [facility] 01-02-2023 11:20-0400 SaO2% (BldA) [Mass fraction] 92 % Dr. Geovani Gay Work Phone: [facility] 01-02-2023 11:20-0400 Systolic blood pressure 98 mm[Hg] Dr. Geovani Gay Work Phone: [facility] 01-02-2023 09:11-0400 Body height 152.[address] Geovani Gay Work Phone: [facility] 01-02-2023 09:11-0400 Body mass index (BMI) [Ratio] 31.4 kg/m2 Dr. Geovani Gay Work Phone: [facility] 01-02-2023 09:11-0400 Body weight [address] Geovani Gay Work Phone: [facility] 12-21-2022 14:23-0500 Body height 152.4 cm Geovani Gay MD Work Phone: [facility] 12-21-2022 14:23-0500 Body mass index (BMI) [Ratio] 32.22 kg/m2 Geovani Gay MD Work Phone: [facility] 12-21-2022 14:23-0500 Body weight 74.84 kg Geovani Gay MD Work Phone: [facility] 12-21-2022 14:23-0500 Diastolic blood pressure 59 mm[Hg] Geovani Gay MD Work Phone: [facility] 12-21-2022 14:23-0500 Heart rate 74 /min Geovani Gay MD Work Phone: [facility] 12-21-2022 14:23-0500 Systolic blood pressure 120 mm[Hg] Geovani Gay MD Work Phone: [facility] 10-27-2022 10:25-0500 Diastolic blood pressure 72 mm[Hg] Dr. Geovani Gay Work Phone: [facility] 10-27-2022 10:25-0500 Heart rate 79 /min Dr. Geovani Gay Work Phone: [facility] 10-27-2022 10:25-0500 Systolic blood pressure 124 mm[Hg] Dr. Geovani Gay Work Phone: [facility] 04-27-2022 13:29-0400 Body temperature 97.81 [degF] Bolivar Larsen MD Work Phone: [facility] 04-27-2022 13:29-0400 Diastolic blood pressure 65 mm[Hg] Bolivar Larsen MD Work Phone: [facility] 04-27-2022 13:29-0400 Heart rate 76 /min Bolivar Larsen MD Work Phone: [facility] 04-27-2022 13:29-0400 Respiratory rate 18 /min Bolivar Larsen MD Work Phone: [facility] 04-27-2022 13:29-0400 SaO2% (BldA) [Mass fraction] 93 % Bolivar Larsen MD Work Phone: [facility] 04-27-2022 13:29-0400 Systolic blood pressure 121 mm[Hg] oBlivar Larsen MD Work Phone: [facility] 04-27-2022 06:33-0400 Body height 152.4 cm Bolivar Larsen MD Work Phone: [facility] 04-27-2022 06:33-0400 Body mass index (BMI) [Ratio] 34.76 kg/m2 Bolivar Larsen MD Work Phone: [facility] 04-27-2022 06:33-0400 Body weight 80.74 kg Bolivar Larsen MD Work Phone: [facility] 04-18-2022 11:01-0400 Diastolic blood pressure 80 mm[Hg] Bolivar Larsen MD Work Phone: [facility] 04-18-2022 11:01-0400 Systolic blood pressure 157 mm[Hg] Bolivar Larsen MD Work Phone: [facility] 04-18-2022 10:14-0400 Body height 152.4 cm Bolivar Larsen MD Work Phone: [facility] 04-18-2022 10:14-0400 Body mass index (BMI) [Ratio] 34.8 kg/m2 Bolivar Larsen MD Work Phone: [facility] 04-18-2022 10:14-0400 Body temperature 97.7 [degF] Bolivar Larsen MD Work Phone: [facility] 04-18-2022 10:14-0400 Body weight 80.83 kg Bolivar Larsen MD Work Phone: [facility] 04-18-2022 10:14-0400 Heart rate 82 /min Bolivar Larsen MD Work Phone: [facility] 04-18-2022 10:14-0400 Respiratory rate 16 /min Bolivar Larsen MD Work Phone: [facility] 04-18-2022 10:14-0400 SaO2% (BldA) [Mass fraction] 93 % Bolivar Larsen MD Work Phone: [facility] 11-03-2021 14:06-0500 Body height 152.[address] Geovani Gay Work Phone: [facility] Work Phone: 11-03-2021 14:06-0500 Body mass index (BMI) [Ratio] 35.7 kg/m2 Dr. Geovani Gay Work Phone: [facility] Work Phone: 11-03-2021 14:06-0500 Body weight [address] Geovani Gay Work Phone: [facility] Work Phone: 11-03-2021 14:06-0500 Diastolic blood pressure 89 mm[Hg] Dr. Geovani Gay Work Phone: [facility] Work Phone: 11-03-2021 14:06-0500 Heart rate 72 /min Dr. Geovani Gay Work Phone: [facility] Work Phone: 11-03-2021 14:06-0500 Respiratory rate 18 /min Dr. Geovani Gay Work Phone: [facility] Work Phone: 11-03-2021 14:06-0500 SaO2% (BldA) [Mass fraction] 92 % Dr. Geovani Gay Work Phone: [facility] Work Phone: 11-03-2021 14:06-0500 Systolic blood pressure 179 mm[Hg] Dr. Geovani Gay Work Phone: [facility] Work Phone: 10-13-2021 07:55-0500 Body temperature 97.6 [degF] Dr. Geovani Gay Work Phone: [facility] Work Phone: 10-13-2021 07:55-0500 Diastolic blood pressure 86 mm[Hg] Dr. Geovani Gay Work Phone: [facility] Work Phone: 10-13-2021 07:55-0500 Heart rate 80 /min Dr. Geovani Gay Work Phone: [facility] Work Phone: 10-13-2021 07:55-0500 Respiratory rate 16 /min Dr. Geovani Gay Work Phone: [facility] Work Phone: 10-13-2021 07:55-0500 SaO2% (BldA) [Mass fraction] 92 % Dr. Geovani Gay Work Phone: [facility] Work Phone: 10-13-2021 07:55-0500 Systolic blood pressure 133 mm[Hg] Dr. Geovani Gay Work Phone: [facility] Work Phone: 09-30-2021 08:17-0500 Body mass index (BMI) [Ratio] 34.7 kg/m2 Dr. Geovani Gay Work Phone: [facility] Work Phone: 09-30-2021 08:17-0500 Body temperature 97.3 [degF] Dr. Geovani Gay Work Phone: [facility] Work Phone: 09-30-2021 08:17-0500 Body weight 80.[address] Geovani Gay Work Phone: [facility] Work Phone: 09-30-2021 08:17-0500 Diastolic blood pressure 68 mm[Hg] Dr. Geovani Gay Work Phone: [facility] Work Phone: 09-30-2021 08:17-0500 Heart rate 67 /min Dr. Geovani Gay Work Phone: [facility] Work Phone: 09-30-2021 08:17-0500 Respiratory rate 16 /min Dr. Geovani Gay Work Phone: [facility] Work Phone: 09-30-2021 08:17-0500 SaO2% (BldA) [Mass fraction] 90 % Dr. Geovani Gay Work Phone: [facility] Work Phone: 09-30-2021 08:17-0500 Systolic blood pressure 120 mm[Hg] Dr. Geovani Gay Work Phone: [facility] Work Phone: 09-23-2021 13:07-0500 Body weight 81.[address] Geovani Gay Work Phone: [facility] Work Phone: 09-23-2021 13:07-0500 Heart rate 73 /min Dr. Geovani Gay Work Phone: [facility] Work Phone: 09-23-2021 13:07-0500 SaO2% (BldA) [Mass fraction] 94 % Dr. Geovani Gay Work Phone: [facility] Work Phone: 04-10-2020 16:27-0400 BP Diastolic 66 mm[Hg] [place] 04-10-2020 16:27-0400 BP Systolic 149 mm[Hg] Mandeep Parra [facility] , [place] 04-10-2020 16:27-0400 Pulse (Heart Rate) 66 /min Mandeep De Souza [facility] [place], [place] 04-10-2020 16:27-0400 Pulse Oximetry 99 % [facility] [place] 04-10-2020 16:27-0400 Respiratory Rate 14 /min Mandeep De Souza [facility] 04-10-2020 14:06-0400 Body Temperature 98.4 [degF] [facility] [place] 12-04-2019 10:53-0500 BP Diastolic 71 mm[Hg] Tripp Adusumilli [facility] Work Phone: 12-04-2019 10:53-0500 BP Systolic 136 mm[Hg] Tripp Adusumilli [facility] Work Phone: 12-04-2019 10:53-0500 Pulse (Heart Rate) 89 /min Tripp Adusumilli [facility] Work Phone: 12-04-2019 10:53-0500 Pulse Oximetry 94 % Tripp Gregoryumilli [facility] Work Phone: 12-04-2019 10:35-0500 Respiratory Rate 14 /min Tripp Vitalyusumilli [facility] Work Phone: 12-04-2019 09:37-0500 Body Temperature 98.6 [degF] Tripp Adusumilli [facility] Work Phone: NEGATED: Highlighted [id number] 13:49-0400 BMI (Body Mass Index) 37.24 kg/m2 [facility] Work Phone: NEGATED: Highlighted [id number] 13:49-0400 BP Diastolic 74 mm[Hg] [facility] Work Phone: NEGATED: Highlighted [id number] 13:49-0400 BP Systolic 115 mm[Hg[facility] Work Phone: NEGATED: Highlighted [id number] 13:49-0400 Height [facility].4 cm [facility] Work Phone: NEGATED: Highlighted [id number] 13:49-0400 Height 152 cm [facility] Work Phone: NEGATED: Highlighted [id number] 13:49-0400 Pulse (Heart Rate) 74 /min [facility] Work Phone: NEGATED: Highlighted [id number] 13:49-0400 Weight 86.18 kg [facility] Work Phone: NEGATED: Highlighted [id number] 13:49-0400 Weight 86 kg [facility] Work Phone: Encounters Encounter Date Encounter Type Care Provider Facility Start: 09-04-2025 ambulatory aCl Bahena Facility :[facility] Start: 08-19-2025 End: 08-19-2025 ambulatory Geovani Victor Hugo Facility:[facility] [place] [place] [facility]: [facility] Start: 07-21-2025 End: 07-21-2025 Emergency department patient visit Dr. Geovani Gay MD Work Phone: -Emergency Department Work Phone: Start: 07-14-[address] Gabino Madsen MD -[facility] Start: 07-07-[address] Gabino Madsen MD -[facility] Start: 07-07-2025 End: 07-07-[address] Gabino Madsen MD -[facility] Work Phone: Start: 07-07-2025 End: 07-07-[address] Geovani Gay MD Work Phone: -[facility] Start: 06-30-2025 End: 06-30-2025 Refill Linda Gonzales [employer] Work Phone: [facility] Start: 06-26-2025 End: 06-26-2025 Refill Linda Gonzales [employer] Work Phone: [facility] Comment on above: Vitamin D deficiency , unspecified Start: 05-26-2025 End: 05-28-2025 Refill Geovani Gay MD Work Phone: [facility] Start: 05-20-2025 End: 05-20-2025 Patient encounter procedure Cal Shruti DO -[facility] Work Phone: Start: 05-20-2025 End: 05-20-[address] Geovani Gay MD Work Phone: -[facility] Start: 05-20-2025 End: 05-20-2025 ambulatory Caljoni Bahena Facility:[facility] Start: 05-07-2025 End: 05-07-2025 Emergency department patient visit Gena Jones MD Work Phone: [facility] Comment on above: Sinus congestion (Pr imary Dx) Start: 04-25-2025 End: 04-25-2025 Refill Linda Gonzales [employer] Work Phone: [facility] Comment on above: Chronic nausea Start: 04-12-2025 End: 04-14-2025 Refill Geovani Gay MD Work Phone: [facility] Comment on above: Primary hypertension Start: 04-08-2025 End: 06-08-2025 Follow-up encounter Linda Gonzales [employer] Work Phone: [facility] Comment on above: Comprehensive metabo lic panel, Magnesium Start: 04-07-2025 End: 04-07-2025 Transitional care manage srvc 14 day discharge Linda Gonzales [employer] Work Phone: [facility] Comment on above: Hospital discharge f ollow-up (Primary Dx); Acute on chronic respiratory failure with hypoxia (HCC); Pneumonia due to infectious organism, unspecified laterality, unspecified part of lung; Hypokalemia; Hypomagnesemia; Alcoholic cirrhosis of liver with ascites (CMS/HCC) (HCC); Dependence on continuous supplemental oxygen; Chronic obstructive pulmonary disease, unspecified COPD type (HCC) Start: 04-07-2025 End: 04-07-2025 Orders Only Linda Dailey Christian [employer] Work Phone: [facility] Start: 03-25-2025 Non-patient / Non-visit Calmelissa Pérez [facility] Start: 03-25-2025 Non-patient / Non-visit Dr. Troy Hu [facility] Work Phone: Start: 03-24-2025 Non-patient / Non-visit Calmelissa Pérez [facility] Start: 03-24-2025 Non-patient / Non-visit Dr. Troy curry MD [facility] Work Phone: Start: 03-23-2025 End: 03-23-2025 [facility]ulatory [facility] Facility:[facility] [place], [place] Start: 03-23-2025 End: 03-23-2025 Non-patient / Non-visit Dr. Troy Akins MD [facility] Work Phone: Start: 03-22-2025 Non-patient / Non-visit Dr. Troy [facility] Work Phone: Start: 03-21-2025 Non-patient / Non-visit Dr. Troy Hu [facility] Work Phone: Start: 03-20-2025 Non-patient / Non-visit Dr. Guerline Douglas MD [facility] Work Phone: Start: 03-20-2025 [facility]ulatory [facility] Start: 03-20-2025 End: 03-25-2025 Evaluation and management of inpatient Dr. Jose Douglas MD -Progressive Care Unit Work Phone: Start: 03-04-2025 End: 03-04-2025 Office outpatient visit 25 minutes Geovani Gay MD Work Phone: [facility] Comment on above: Chronic obstructive pulmonary disease, unspecified COPD type (HCC) (Primary Dx); Chronic respiratory failure with hypoxia (HCC); Nonintractable epilepsy without status epilepticus, unspecified epilepsy type (HCC); Primary hypertension; Chronic nausea; Gastroesophageal reflux disease without esophagitis; Vitamin D deficiency, unspecified; Mixed hyperlipidemia; Current smoker; Anxiety Start: 03-04-2025 End: 03-04-2025 ambulatory [facility] Start: 02-18-2025 End: 02-18-2025 Office outpatient visit 10 minutes Geovani Gay MD Work Phone: [facility] Comment on above: Glossitis (Primary D x) Start: 02-18-2025 End: 02-18-2025 ambulatory [facility] Start: 02-17-2025 End: 02-17-2025 ambulatory Silvia Wren RN [facility] Clinical Communication Start: 02-17-2025 End: 02-17-2025 Patient encounter procedure Silvia Wren RN [facility] Clinical Communication Start: 02-06-2025 End: 02-06-2025 Office outpatient visit 25 minutes Geovani Gay MD Work Phone: [facility] Comment on above: Incontinence overflo w, stress female (Primary Dx); Fecal smearing; Chronic respiratory failure with hypoxia (HCC); Fibromyalgia Start: 02-06-2025 End: 02-06-2025 ambulatory [facility] Start: 01-28-2025 End: 01-28-2025 ambulatory Ruperto Jenkins RN [facility] Clinical Communication Start: 01-28-2025 End: 01-28-2025 Patient encounter procedure Ruperto Jenkins RN [facility] Clinical Communication Start: 01-09-2025 End: 01-09-2025 Office outpatient visit 25 minutes Elina Bridenthal [employer] Work Phone: [facility] Comment on above: COPD with acute exac erbation (HCC) (Primary Dx); Acute non-recurrent frontal sinusitis; Chronic obstructive pulmonary disease, unspecified COPD type (HCC); Moderate asthma, unspecified whether complicated, unspecified whether persistent Start: 01-09-2025 End: 01-09-2025 Patient encounter procedure Leila Dozier RN [facility] Clinical Communication Start: 01-09-2025 End: 01-09-2025 ambulatory Leila Dozier RN [facility] Clinical Communication Start: 12-16-2024 End: 12-16-2024 Refill Geovani Gay MD Work Phone: [facility] Start: 12-12-2024 End: 12-12-2024 Refill Geovani Gay MD Work Phone: [facility] Comment on above: Chronic obstructive pulmonary disease, unspecified (HCC) Start: 11-02-2024 End: 11-04-2024 Refill Elina Bridenthal [employer] Work Phone: [facility] Comment on above: Chronic nausea Start: 10-25-2024 End: 10-28-2024 Refill Elina Bridenthal [employer] - [employer] Work Phone: [facility] Comment on above: Primary hypertension Start: 10-22-2024 End: 10-22-2024 Refill Ge[facility] MD Work Phone: [facility] Start: 10-19-2024 End: 10-21-2024 Refill Geovani Gay MD Work Phone: [facility] Comment on above: Hyperlipidemia, unsp ecified hyperlipidemia type Start: 09-12-2024 End: 09-12-2024 ambulatory [facility] Start: 09-12-2024 End: 09-12-2024 Office outpatient visit 25 minutes Geovani Gay MD Work Phone: [facility] Comment on above: Moderate asthma, uns pecified whether complicated, unspecified whether persistent (Primary Dx); Chronic obstructive pulmonary disease, unspecified COPD type (HCC); Chronic respiratory failure with hypoxia (HCC); Primary hypertension; Nonintractable epilepsy without status epilepticus, unspecified epilepsy type (HCC); Gastroesophageal reflux disease without esophagitis; Mixed hyperlipidemia; Hyponatremia Start: 08-22-2024 End: 08-22-2024 [facility] Start: 08-19-2024 End: 08-19-2024 Subsequent hospital visit by physician Geovani Gay MD Work Phone: [facility] Comment on above: Screening mammogram for breast cancer Start: 08-19-2024 End: 08-19-2024 ambulatory [facility] Start: 08-14-2024 End: 08-14-2024 Office outpatient visit 15 minutes Linda Robin CNP Work Phone: [facility] Comment on above: Sinobronchitis (Prim alida Dx); Malaise and fatigue; Acute cough; Head congestion Start: 08-14-2024 End: 08-14-2024 ambulatory [facility] Start: 07-04-2024 End: 10-03-2024 Transcribe Orders Geovani Gay MD Work Phone: [facility] Central Scheduling Comment on above: Screening mammogram for breast cancer (Primary Dx) Start: 06-13-2024 End: 06-13-2024 Periodic preventive med est patient 40-64yrs Geovani Gay MD Work Phone: [facility] Comment on above: Chronic obstructive pulmonary disease, unspecified (HCC) (Primary Dx); Primary hypertension; Hyperlipidemia, unspecified hyperlipidemia type; Epilepsy, unspecified, not intractable, without status epilepticus (HCC); Vitamin D deficiency, unspecified; Alcoholic cirrhosis of liver with ascites (CMS/HCC) (HCC); Chronic respiratory failure with hypoxia (HCC); Hyponatremia Start: 06-11-2024 End: 06-11-2024 Refill Dania D'Kavitha [facility] Comment on above: Vitamin D deficiency , unspecified Start: 06-06-2024 End: 06-07-2024 Refill Linda Gonzales [employer] Work Phone: [facility] Comment on above: Osteoarthritis, unsp ecified osteoarthritis type, unspecified site Start: 05-29-2024 End: 05-29-2024 Office outpatient visit 25 minutes Linda Gonzales [employer] Work Phone: [facility] Comment on above: Alcoholic cirrhosis of liver with ascites (CMS/HCC) (HCC) (Primary Dx); Abnormal liver function tests; Osteoarthritis, unspecified osteoarthritis type, unspecified site; Chronic respiratory failure with hypoxia (HCC); Chronic obstructive pulmonary disease, unspecified COPD type (HCC); Moderate asthma, unspecified whether complicated, unspecified whether persistent; Current smoker; Hyponatremia; Seizure disorder (CMS/HCC) (HCC); Mixed hyperlipidemia; Chronic nausea; Vitamin D deficiency; Falls frequently; Generalized weakness; Primary hypertension Start: 04-18-2024 End: 04-18-2024 Telephone encounter Geovani Gay MD Work Phone: [facility] Comment on above: Medication List Start: 04-05-2024 Refill Elina melgar [employer] Work Phone: [facility] Comment on above: Primary hypertension ; Chronic obstructive pulmonary disease, unspecified (HCC) Start: 03-30-2024 Refill Linda Gonzales [employer] - [employer] Work Phone: [facility] Comment on above: Vitamin D deficiency , unspecified Start: 03-29-2024 ambulatory Elina Pedroza RN [facility] Clinical Communication Start: 03-29-2024 Patient encounter procedure Elina Pedroza RN [facility] Clinical Communication Start: 03-28-2024 End: 03-28-2024 Office outpatient visit 25 minutes Geovani Gay MD Work Phone: [facility] Comment on above: Chronic obstructive pulmonary disease, unspecified COPD type (HCC) (Primary Dx); Abnormal liver function tests; Hyponatremia; Falls frequently; Ascites due to chronic alcoholic hepatitis; Iron deficiency anemia, unspecified iron deficiency anemia type; Generalized weakness Start: 03-27-2024 ambulatory NONE PHYSICIAN Facility :[facility] Start: 02-17-2024 Refill Elina Briden thal [employer] - [employer] Work Phone: [facility] Clinical Communication Start: 01-29-2024 Refill Geovani Gay MD Work Phone: [facility] Start: 01-27-2024 Refill Elina Briden thal [employer] - [employer] Work Phone: [facility] Comment on above: Primary hypertension ; Chronic nausea Start: 12-18-2023 Refill Elina Briden thal [employer] - [employer] Work Phone: [facility] Comment on above: Vitamin D deficiency , unspecified; Chronic obstructive pulmonary disease, unspecified (HCC) Start: 12-08-2023 End: 12-08-2023 Office outpatient visit 25 minutes Geovani Gay MD Work Phone: [facility] Comment on above: Chronic obstructive pulmonary disease, unspecified COPD type (HCC) (Primary Dx); Seizure disorder (CMS/HCC) (HCC); Primary hypertension; Gastroesophageal reflux disease without esophagitis; Fibromyalgia; Vitamin D deficiency; Current mild episode of major depressive disorder, unspecified whether recurrent (HCC); Anxiety; Current smoker; Mixed hyperlipidemia; Hyponatremia Start: 10-05-2023 End: 10-05-2023 Office outpatient visit 15 minutes Geovani Gay MD Work Phone: [facility] Comment on above: Acute non-recurrent pansinusitis (Primary Dx); Bronchitis; Primary hypertension Start: 10-03-2023 Refill Elina Briden thal [employer] - [employer] Work Phone: [facility] Comment on above: Vitamin D deficiency , unspecified Epilepsy, unspecifie d, not intractable, without status epilepticus (HCC) Start: 09-22-2023 Refill Geovani Gay MD Work Phone: [facility] Clinical Communication Start: 09-10-2023 Refill Elina Morgan talia [employer] - [employer] Work Phone: [facility] Comment on above: Chronic obstructive pulmonary disease, unspecified (HCC) Start: 09-08-2023 End: 09-08-2023 Office outpatient visit 25 minutes Geovani Gay MD Work Phone: [facility] Comment on above: Chronic obstructive pulmonary disease, unspecified COPD type (HCC) (Primary Dx); Primary hypertension; Gastroesophageal reflux disease without esophagitis; Chronic nausea; Current mild episode of major depressive disorder, unspecified whether recurrent (HCC); Anxiety Start: 08-17-2023 Refill Geovani Gay MD Work Phone: [facility] Comment on above: Primary hypertension Start: 08-17-2023 End: 08-17-2023 Subsequent hospital visit by physician Geovani Gay MD Work Phone: [facility] Comment on above: Encounter for screen ing mammogram for malignant neoplasm of breast Start: 07-22-2023 Refill Linda Gonzales APRN - [employer] Work Phone: [facility] Comment on above: Vitamin D deficiency , unspecified Chronic nausea Start: 06-22-2023 Refill Geovani Gay MD Work Phone: [facility] Comment on above: Epilepsy, unspecifie d, not intractable, without status epilepticus (HCC) Start: 06-22-2023 End: 06-22-2023 Subsequent hospital visit by physician Linda Gonzales [employer] - [employer] Work Phone: [facility] Comment on above: Multiple lung nodule s on CT Start: 06-18-2023 Refill Geovani Gay MD Work Phone: [facility] Comment on above: Chronic obstructive pulmonary disease, unspecified (HCC) Start: 06-15-2023 End: 06-15-2023 Patient encounter procedure Geovani Gay MD Work Phone: [facility] Work Phone: Start: 06-15-2023 End: 06-15-2023 Periodic preventive med est patient 40-64yrs Geovani Gay MD Work Phone: [facility] Comment on above: Annual physical exam (Primary Dx); Seizure disorder (CMS/HCC) (HCC); Moderate asthma, unspecified whether complicated, unspecified whether persistent; Chronic obstructive pulmonary disease, unspecified COPD type (HCC); Primary hypertension; Fibromyalgia; Vitamin D deficiency; Anxiety; Current mild episode of major depressive disorder, unspecified whether recurrent (HCC); Mixed hyperlipidemia; Current smoker; Hypoxemia; Screening for diabetes mellitus; Encounter for screening mammogram for malignant neoplasm of breast; Need for pneumococcal vaccination Start: 05-22-2023 Refill Elina Eddie melgar [employer] - [employer] Work Phone: [facility] Start: 05-07-2023 Refill Geovani Gay MD Work Phone: [facility] Start: 04-16-2023 Refill Geovani Gay MD Work Phone: [facility] Comment on above: Vitamin D deficiency , unspecified Start: 02-28-2023 Refill Elina Judyen thal [employer] - [employer] Work Phone: [facility] Comment on above: Epilepsy, unspecifie d, not intractable, without status epilepticus (HCC) Start: 01-30-2023 Refill Elina Judyen talia [employer] - [employer] Work Phone: [facility] Comment on above: Chronic nausea Start: 01-30-2023 End: 01-30-[address] Geovani Gay Work Phone: [facility] Work Phone: Start: 01-30-2023 End: 01-30-[address] Geovani Gay Work Phone: [facility] Start: 01-16-2023 End: 01-16-[address] Geovani Gay Work Phone: [facility] Start: 01-11-2023 Refill Geovani Gay MD Work Phone: [facility] Comment on above: Vitamin D deficiency , unspecified Start: 01-02-2023 Non-patient / Non-visit Dr. Crooks Work Phone: [facility] Start: 01-02-2023 End: 01-02-2023 Admission to same day surgery center Dr. Geovani Gay Work Phone: [facility] Start: 01-02-2023 End: 01-02-[address] Geovani Gay Work Phone: [facility] Work Phone: Start: 12-22-2022 Refill Geovani Gay MD Work Phone: [facility] Comment on above: Hyperlipidemia, unsp ecified hyperlipidemia type; Primary hypertension; Chronic obstructive pulmonary disease, unspecified (HCC) Start: 12-21-2022 End: 12-21-2022 Office outpatient visit 25 minutes Geovani Gay MD Work Phone: [facility] Comment on above: Seizure disorder (CM S/HCC) (HCC) (Primary Dx); Chronic obstructive pulmonary disease, unspecified COPD type (HCC); Primary hypertension; Gastroesophageal reflux disease without esophagitis; Mixed hyperlipidemia; Current mild episode of major depressive disorder, unspecified whether recurrent (HCC); Anxiety Start: 12-12-2022 Refill Geovani Gay MD Work Phone: [facility] Comment on above: Vitamin D deficiency , unspecified Start: 11-16-2022 End: 11-16-2022 Subsequent hospital visit by physician [facility] Exam Room [address] [facility] [address] Comment on above: Solitary pulmonary n odule Start: 10-27-2022 Refill Geovani Gay MD Work Phone: [facility] Start: 10-27-2022 End: 10-27-[address] Geovani Gay Work Phone: [facility] Start: 07-08-2022 ambulatory Geovani Gay [facility] Start: 07-08-2022 End: 07-08-2022 Subsequent hospital visit by physician Geovani Gay MD Work Phone: [facility] Comment on above: Arrived Start: 05-11-2022 ambulatory UNKNOWN PROVIDER [facility] Start: 05-11-2022 End: 05-11-2022 Subsequent hospital visit by physician Linda Gonzales APRN - [employer] Work Phone: [facility] Comment on above: Lung nodule Start: 04-27-2022 End: 04-27-2022 ambulatory UNKNOWN PROVIDER [facility] Start: 04-27-2022 End: 04-27-2022 Subsequent hospital visit by physician Bolivar Larsen MD Work Phone: [facility] Comment on above: Calculus of gallblad afshin with acute on chronic cholecystitis without obstruction (Primary Dx) Start: 04-18-2022 ambulatory UNKNOWN PROVIDER [facility] Start: 04-18-2022 Encounter for other preprocedural examination [facility] Start: 04-18-2022 End: 04-18-2022 Subsequent hospital visit by physician Bolivar Larsen MD Work Phone: [facility] Comment on above: Seizure disorder (HC C) Start: 01-06-2022 End: 01-06-[address] Geovani Gay Work Phone: [facility] Start: 11-03-2021 End: 11-03-[address] Geovani Gay Work Phone: [facility] Start: 10-28-2021 Non-patient / Non-visit Dr. Crooks Work Phone: [facility] Start: 10-13-2021 End: 10-13-[address] Geovani aGy Work Phone: [facility] Start: 09-30-2021 End: 09-30-[address] [facility] Start: 09-27-2021 ambulatory [facility] Start: 09-24-2021 Non-patient / Non-visit Dr. Crooks Work Phone: [facility] Start: 09-23-[address] Geovani Gay Work Phone: [facility] Start: 07-07-2021 End: 07-07-2021 Subsequent hospital visit by physician Geovani Gay MD Work Phone: [facility] Comment on above: Arrived Start: 06-15-2021 End: 06-15-2021 Subsequent hospital visit by physician Geovani Gay MD Work Phone: [facility] Comment on above: Chronic nausea; RUQ abdominal pain Start: 07-06-2020 End: 07-06-2020 Subsequent hospital visit by physician Geovani Gay Work Phone: [facility] Comment on above: Arrived Start: 06-25-2020 End: 06-25-2020 Subsequent hospital visit by physician Geovani Gay Work Phone: [facility] Comment on above: Encounter for screen ing for lung cancer Start: 04-10-2020 End: 04-10-2020 Emergency department patient visit Mandeep Parra Work Phone: [facility] Comment on above: Hyponatremia (Primar y Dx); Dehydration; COVID-19; Acute pneumonitis Start: 12-04-2019 End: 12-04-2019 Emergency department patient visit Tri[facility] Kebede [facility] Comment on above: Hypertensive urgency (Primary Dx); Chest pain, unspecified type Start: 07-03-2019 End: 07-03-2019 Subsequent hospital visit by physician Jeffrey Correa Work Phone: [facility] Comment on above: Arrived Start: 05-31-2019 End: 05-31-2019 Subsequent hospital visit by physician Jeffrey Correa Work Phone: [facility] [facility] Comment on above: Arrived Start: 04-24-2018 End: 04-24-2018 Patient encounter procedure Arie Clarisa Nav MANRIQUE Work Phone: [facility] Work Phone: Start: 01-03-2007 End: 01-03-2007 Patient encounter procedure Arie Salgado Work Phone: [facility] Start: 01-03-2007 Results Only Arie Clarisa Salgado Work Phone: [facility] Procedures Date Procedure Procedure Detail Performing Clinician Start: 07-21-2025 SARS-CoV-2, Influenza & RSV (PCR) Dr. Valeriy KENT Work Phone: Start: 07-21-2025 Radiologic exam chest [address] Kulwinder Gay MD Work Phone: Start: 07-07-2025 Serum inorganic phosphate measurement Dr. Geovani Gay MD Work Phone: Start: 07-07-2025 Total iron binding capacity measurement Dr. Geovani Gay MD Work Phone: Start: 05-20-2025 Albumin/Globulin ratio Dr. Geovani sanches MD Work Phone: Start: 05-20-[address] Francisco Gay MD Work Phone: Start: 05-20-[address] Geovani Gay MD Work Phone: Comment on above: Results confirmed ondilution. Start: 05-20-2025 Lymphocyte percent differential count Dr. Geovani Gay MD Work Phone: Start: 03-25-[address] Geovani winkler MD Work Phone: Start: 03-25-[address] Francisco Gay MD Work Phone: Start: 03-25-2025 Serum inorganic phosphate measurement Dr. Geovani Gay MD Work Phone: Start: 03-24-2025 Blood disorder - initial assessment Dr. Geovani Gay MD Work Phone: Start: 03-23-2025 CT angiography of chest with contrast Dr. Geovani Gay MD Work Phone: Start: 03-23-2025 D-dimer assay, quantitative Dr. Geovani Gay MD Work Phone: Comment on above: D-Dimer ELEVATED (>0.49): Additional deborah dies and clinicalassessments are indicated to conclude diagnosis of:Deep Vein Thrombosis (DVT) or Pulmonary Embolism (PE)CRITICAL VALUE CALLED TO [facility]03/23/25 [id number] Lillian Duong.RESULTS READ BACK BY SAME. Start: 03-21-[address] Geovani Gay MD Work Phone: Start: 03-21-[address] Kulwinder Gay MD Work Phone: Start: 03-20-2025 Serum inorganic phosphate measurement Dr. Geovani Gay MD Work Phone: Start: 03-20-2025 Total iron binding capacity measurement Dr. Geovani Gay MD Work Phone: Start: 03-20-2025 Urnls dip stick/tablet reagent auto microscopy Dr. Geovani Gay MD Work Phone: Start: 03-20-2025 X-ray of chest, PA and lateral views Dr. Geovani Gay MD Work Phone: Start: 03-20-2025 Carbon dioxide measurement, partial pressure Dr. Geovani Gay MD Work Phone: Start: 03-20-2025 Gases blood o2 saturation only direct ceasar Dr. Geovani Gay MD Work Phone: Start: 03-20-2025 Measurement of partial pressure of oxygen in blood Dr. Geovani Gay MD Work Phone: Start: 03-20-[address] Geovani Gay MD Work Phone: Start: 03-20-[address] Geovani Gay MD Work Phone: Start: 03-20-2025 Legionella pneumophila antigen assay Dr. Geovani Gay MD Work Phone: Start: 03-20-2025 SARS-CoV-2, Influenza & RSV (PCR) Dr. Valeriy KENT Work Phone: Start: 03-20-2025 [address]reptococcus [address] antigen assay Dr[address] Geovani Gay MD Work Phone: Start: 03-20-[address] Geovani Gay MD Work Phone: Start: 08-19-2024 End: 08-19-2024 Screening digital breast tomosynthesis bi Geovani Gay MD Work Phone: Start: 08-14-2024 Infectious agent dna/rna influenza 1st 2 types Linda Gonzales [employer] - [employer] Work Phone: Start: 08-14-2024 Sars-cov-2 detection by dna/rna Linda Gonzales [employer] - [employer] Work Phone: Start: 05-29-2024 Lipid 1996 panel - Serum or Plasma Linda Gonzales [employer] - [employer] Work Phone: Start: 08-17-2023 Mammography Geovani Gay MD Work Phone: Start: 06-15-2023 Lipid 1996 panel - Serum or Plasma Francisco Gay MD Work Phone: Start: 01-02-2023 End: 01-02-[address] Geovani Gay Work Phone: Start: 11-16-2022 CT Chest for screening WO contrast Linda Gonzales [employer] - [employer] Work Phone: Start: 07-08-2022 End: 07-08-2022 Screening digital breast tomosynthesis bi Geovani Gay MD Work Phone: Start: 06-13-2022 Lipid 1996 panel - Serum or Plasma Francisco Gay MD Work Phone: Start: 06-13-2022 Microscopic observation [Identifier] in Cervix by Cyto stain Geovani Gay MD Work Phone: Start: 04-27-2022 OPERATIVE REPORT Physician Generic Start: 04-18-2022 Assay of magnesium Bolivar Larsen MD Work Phone: Start: 04-18-2022 Ecg routine ecg w/least 12 lds w/i&r Martin Barnard MD Work Phone: Start: 07-07-2021 Screening digital breast tomosynthesis bi Geovain Gay MD Work Phone: Start: 06-15-2021 Us abdominal real time w/image documentation Geovani Gay MD Work Phone: Start: 07-06-2020 Screening digital breast tomosynthesis bi Geovani Gay Work Phone: Start: 04-10-2020 COVID-19 Mandeep Parra Work Phone: Start: 04-10-2020 CT ABDOMEN PELVIS W CONTRAST Mandeep M Skob eloff Work Phone: Start: 04-10-2020 Assay of lactate Mandeep M Skobeloff Work Phone: Start: 04-10-2020 Assay of lipase Mandeep M Skobeloff Work Phone: Start: 04-10-2020 Blood count complete auto&auto difrntl wbc Mandeep M Skobeloff Work Phone: Start: 04-10-2020 C-reactive protein Mandeep M Skobeloff Work Phone: Start: 04-10-2020 Comprehensive metabolic panel Mandeep M Sko beloff Work Phone: Start: 04-10-2020 Creatine kinase total Mandeep M Skobeloff Work Phone: Start: 04-10-2020 Lactate dehydrogenase ldh Mandeep M Skobelo ff Work Phone: Start: 04-10-2020 Prothrombin time Mandeep M Skobeloff Work Phone: Start: 04-10-2020 Sedimentation rate rbc automated Mandeep M Skobeloff Work Phone: Start: 04-10-2020 Urnls dip stick/tablet rgnt auto w/o microscopy Mandeep M Skobeloff Work Phone: Start: 12-04-2019 Iaadiadoo influenza Tripp Adusumilli Work Phone: Start: 12-04-2019 Radiologic exam chest 2 views Tripp Adus umilli Work Phone: Start: 12-04-2019 Assay of troponin quantitative Tripp Bakari sumilli Work Phone: Start: 12-04-2019 Basic metabolic panel calcium total Tripp Adusumilli Work Phone: Start: 12-04-2019 Blood count complete auto&auto difrntl wbc Tripp Adusumilli Work Phone: Start: 12-04-2019 RBC morphology finding Nom (Bld) Tripp A dusumilli Work Phone: Start: 05-31-2019 Us abdominal real time w/image documentation Jeffrey Correa Work Phone: Start: 04-24-2018 End: 04-24-2018 Blood pressure within normal parameters - no follow-up required Arie Salgado DO Work Phone: Start: 04-24-2018 End: 04-24-2018 BMI documented as above normal parameters - follow-up documented Arie Salgado DO Work Phone: Start: 04-24-2018 End: 04-24-2018 Current medications documented Arie Mckenna Mi ller DO Work Phone: Start: 04-24-2018 End: 04-24-2018 Pain assessment documented as positive - follow-up documented Arie Salgado DO Work Phone: Start: 04-24-2018 End: 04-24-2018 Pt tobacco screen rcvd tlk Arie Salgado DO Work Phone: Start: 01-03-2007 CONVERTED SURGICAL PATHOLOGY Arie Chandler er Work Phone: Laboratory test result abnormal Elevated antibody levels Dr. Geovani Gay Work Phone: Laboratory test result abnormal Abnormal laboratory test result Dr. Geovani Gay MD Work Phone: Plan of Treatment Date Care Activity Detail Author Start: 01-02-2033 Screening for malign ant neoplasm of colon [facility] Start: 05-29-2029 Lipid panel Lipid Panel [facility] Start: 06-15-2028 Lipid panel Lipid Panel [facility] Start: 06-15-2028 Pneumococcal Vaccine : 50+ Years (3 of 3 - PCV20 or PCV21) Pneumococcal Vaccine: 50+ Years (3 of 3 - PCV20 or PCV21) [facility] Start: 06-15-2028 Pneumococcal Vaccine : Pediatrics (0 to 5 Years) and At-Risk Patients (6 to 64 Years) (3 - PPSV23 if available, else PCV20) Pneumococcal Vaccine: Pediatrics (0 to 5 Years) and At-Risk Patients (6 to 64 Years) (3 - PPSV23 if available, else PCV20) [facility] Start: 06-15-2028 Pneumococcal Vaccine : Pediatrics (0 to 5 Years) and At-Risk Patients (6 to 64 Years) (3 - PPSV23 or PCV20) Pneumococcal Vaccine: Pediatrics (0 to 5 Years) and At-Risk Patients (6 to 64 Years) (3 - PPSV23 or PCV20) [facility] Start: 06-15-2028 Pneumococcal Vaccine : Pediatrics (0 to 5 Years) and At-Risk Patients (6 to 64 Years) (3 of 3 - PPSV23 or PCV20) Pneumococcal Vaccine: Pediatrics (0 to 5 Years) and At-Risk Patients (6 to 64 Years) (3 of 3 - PPSV23 or PCV20) [facility] Start: 06-13-2027 Lipid panel Lipid Panel [facility] Start: 10-07-2025 Depression Monitoring Depression [facility] Start: 09-12-2025 COVID-19 Vaccine () COVID-19 Vaccine () [facility] Comment on above: Postponed from 06/23 (Patient Refused) Start: 09-12-2025 Screening for malign ant neoplasm of lung Lung Cancer Screening [facility] Comment on above: Postponed from 06/22 (Patient Refused) Start: 09-10-2025 End: 09-10-2025 Patient encounter procedure 09/10/2025 11:00 AM EST Office Visit [address] [address] Geovani Gay MD [address] [place], [place] [phone] [facility] Start: 09-08-2025 Serum inorganic phos phate measurement [facility] Start: 09-08-2025 Vitamin B12 measurement [facility] Start: 09-04-2025 Depression Monitoring Depression [facility] Start: 08-20-2025 Depression Monitoring Depression [facility] Start: 08-19-2025 Screening for malign ant neoplasm of breast Mammogram [facility] Start: 07-21-2025 [facility] Start: 07-21-2025 [facility] Start: 07-07-2025 [facility] Start: 06-23-2025 COVID-19 Vaccine ( season) COVID-19 Vaccine ( season) [facility] Start: 06-23-2025 Influenza vaccination Influenza Vacc ine (#1) [facility] Start: 06-13-2025 Screening for malign ant neoplasm of cervix [facility] Start: 06-12-2025 COVID-19 Vaccine ( season) COVID-19 Vaccine ( season) [facility] Comment on above: Postponed from 06/23 (Patient Refused) Start: 06-12-2025 DTaP/Tdap/Td Vaccine s (1 - Tdap) DTaP/Tdap/Td Vaccines (1 - Tdap) [facility] Comment on above: Postponed from 02/27 (Patient Refused) Start: 06-12-2025 Hepatitis A Vaccines (1 of 2 - Risk 2-dose series) Hepatitis A Vaccines (1 of 2 - Risk 2-dose series) [facility] Comment on above: Postponed from 02/27 (Patient Refused) Start: 06-12-2025 Hepatitis B Vaccines (1 of 3 - Risk 3-dose series) Hepatitis B Vaccines (1 of 3 - Risk 3-dose series) [facility] Comment on above: Postponed from 02/27 (Patient Refused) Start: 06-12-2025 HIV screening HIV Screening [place] Comment on above: Postponed from 02/27 (Patient Refused) Start: 06-12-2025 RSV Immunization age d 60 or older (1 - 1-dose 60+ series) RSV Immunization aged 60 or older (1 - 1-dose 60+ series) [facility] Comment on above: Postponed from 02/27 (Patient Refused) Start: 06-12-2025 RSV Immunization for Adults (1 - Risk 60-74 years 1-dose series) RSV Immunization for Adults (1 - Risk 60-74 years 1-dose series) [facility] Comment on above: Postponed from 02/27 (Patient Refused) Start: 06-12-2025 Zoster Vaccines (1 of 2) Zoste r Vaccines (1 of 2) [facility] Comment on above: Postponed from 02/27 (Patient Refused) Start: 04-07-2025 End: 04-07-2026 Comprehensive metabolic 1998 panel - Serum or Plasma Comprehensive metabolic panel Lab Routine Hypokalemia Expected: 04/07/2025 (Approximate), Expires: 04/07/2026 [facility] [employer] Work Phone: Comment on above: Expected: 04/07/2025 (Approximate), Expires: 04/07/2026 Start: 04-07-2025 End: 04-07-2026 Magnesium [Mass/volume] in Serum or Plasma Magnesium Lab Routine Hypomagnesemia Expected: 04/07/2025 (Approximate), Expires: 04/07/2026 [facility] Comment on above: Expected: 04/07/2025 (Approximate), Expires: 04/07/2026 Start: 03-25-2025 Patient discharge [facility] Start: 03-24-2025 Measurement of occul t blood in stool specimen using immunoassay [facility] Start: 03-24-2025 Referral to gastroenterology service [facility] Start: 03-23-2025 Application of intermittent pneumatic compression device [facility] Start: 03-21-2025 Administration of bl ood product [facility] Start: 03-21-2025 Oxygen therapy [facility] Start: 03-21-2025 Following clinical pathway protocol [facility] Start: 03-21-2025 Ambulation without limitation [facility] Start: 03-21-2025 Assessment of risk o f venous thromboembolism [facility] Start: 03-21-2025 Inhalation therapy procedure [facility] Start: 03-21-2025 Insertion of cathete r into peripheral vein [facility] Start: 03-21-2025 Providing care accor ding to standard [facility] Start: 03-21-2025 [facility] Start: 03-20-2025 Measurement of occul t blood in stool specimen using immunoassay [facility] Start: 03-20-2025 Verification routine [facility] Start: 03-20-2025 Admission procedure [facility] Start: 03-20-2025 Hospital admission, emergency, from emergency room, medical nature [facility] Start: 03-20-2025 End: 03-20-2025 [facility] Start: 03-20-2025 [facility] Start: 03-20-2025 Bacteria identified in Blood by Culture Blood Culture [facility] Start: 03-20-2025 Bacteria identified in Urine by Culture Urine Culture [facility] Start: 03-20-2025 Blood culture Blood Culture [facility] Start: 03-12-2025 Depression Monitoring Depression [facility] Start: 03-04-2025 End: 03-04-2025 Patient encounter procedure 03/04/2025 11:30 AM EDT Office Visit [address] [address] Geovani Gay MD [address] [place] [id number] [facility] Start: 02-18-2025 End: 02-18-2025 Patient encounter procedure 02/18/2025 10:30 AM EDT Office Visit [address] [address] Geovani Gay MD [address] [place] [id number] [facility] Start: 12-13-2024 Depression Monitoring Depression [facility] Start: 09-12-2024 End: 09-12-2025 Basic metabolic 1998 panel - Serum or Plasma Basic metabolic panel Lab Routine Hyponatremia Expected: 09/12/2024 (Approximate), Expires: 09/12/2025 [facility] Work Phone: Comment on above: Expected: 09/12/2024 (Approximate), Expires: 09/12/2025 Start: 09-12-2024 End: 09-12-2024 Patient encounter procedure [facility] Start: 08-19-2024 End: 08-19-2024 Patient encounter procedure 08/19/2024 11:00 AM EDT Appointment [facility] [address] [place] [phone] Geovani Gay MD [address] [place], [place] [address] [address] [facility] Start: 08-17-2024 Screening for malign ant neoplasm of breast Mammogram [facility] Start: 07-08-2024 Screening for malign ant neoplasm of breast Breast cancer screen [facility] Start: 06-23-2024 COVID-19 Vaccine () COVID-19 Vaccine () [facility] Start: 06-23-2024 Influenza vaccination Influenza Vacc ine (#1) [facility] Start: 06-22-2024 Screening for malign ant neoplasm of lung Lung Cancer Screening [facility] Start: 06-15-2024 Lipid panel Lipid Panel [facility] Start: 06-13-2024 End: 06-13-2025 Comprehensive metabolic 1998 panel - Serum or Plasma Comprehensive metabolic panel Lab Routine Alcoholic cirrhosis of liver with ascites (CMS/HCC) (HCC) Hyponatremia Expected: 06/13/2024 (Approximate), Expires: 06/13/2025 [facility] Work Phone: Comment on above: Expected: 06/13/2024 (Approximate), Expires: 06/13/2025 Start: 06-13-2024 End: 06-13-2024 Patient encounter procedure 06/13/2024 11:00 AM EDT Office Visit [facility] [address] [place], [place] [address], [place] [address] Geovani Gay MD [address] [place] [phone] [facility] Start: 06-06-2024 Depression Monitoring Depression Mon itoring [facility] Start: 06-06-2024 Depresssion Monitoring Depresssion M onitoring [facility] Start: 05-29-2024 End: 05-29-2025 25-hydroxyvitamin D3 [Mass/volume] in Serum or Plasma Vitamin D Deficiency Screening (Vit D 25) Lab Routine Vitamin D deficiency Expected: 05/29/2024 (Approximate), Expires: 05/29/2025 [facility] [employer] Comment on above: Expected: 05/29/2024 (Approximate), Expires: 05/29/2025 Start: 05-29-2024 End: 05-29-2025 Carbamazepine level, total Carbamazepine level, total Lab Routine Seizure disorder (CMS/HCC) (HCC) Expected: 05/29/2024 (Approximate), Expires: 05/29/2025 [facility] [employer] Work Phone: Comment on above: Expected: 05/29/2024 (Approximate), Expires: 05/29/2025 Start: 05-29-2024 End: 05-29-2025 Comprehensive metabolic 1998 panel - Serum or Plasma Comprehensive metabolic panel Lab Routine Alcoholic cirrhosis of liver with ascites (CMS/HCC) (HCC) Abnormal liver function tests Osteoarthritis, unspecified osteoarthritis type, unspecified site Chronic respiratory failure with hypoxia (HCC) Chronic obstructive pulmonary disease, unspecified COPD type (HCC) Moderate asthma, unspecified whether complicated, unspecified whether persistent Current smoker Hyponatremia Seizure disorder (CMS/HCC) (HCC) Mixed hyperlipidemia Chronic nausea Generalized weakness Primary hypertension Expected: 05/29/2024 (Approximate), Expires: 05/29/2025 [facility] [employer] Comment on above: Expected: 05/29/2024 (Approximate), Expires: 05/29/2025 Start: 05-29-2024 End: 05-29-2025 LEVETIRACETAM LEVEL LEVETIRACETAM LEVEL Lab Routine Seizure disorder (CMS/HCC) (HCC) Expected: 05/29/2024 (Approximate), Expires: 05/29/2025 [facility] [employer] Comment on above: Expected: 05/29/2024 (Approximate), Expires: 05/29/2025 Start: 05-29-2024 End: 05-29-2025 Lipid 1996 panel - Serum or Plasma Lipid panel Lab Routine Mixed hyperlipidemia Expected: 05/29/2024 (Approximate), Expires: 05/29/2025 [facility] [employer] Comment on above: Expected: 05/29/2024 (Approximate), Expires: 05/29/2025 Start: 05-10-2024 End: 05-10-2024 Patient encounter procedure 05/10/2024 9:00 AM EDT Office Visit [address] [place] [address] Geovani Gay MD [address] [place] [address] [place] [address] [facility] Start: 04-04-2024 End: 04-04-2024 Clinical Support 04/04/2024 9:30 AM EDT Clinical Support [address] [place] [address] [facility] Start: 03-28-2024 End: 03-28-2025 CBC panel - Blood by Automated count CBC Lab Routine Iron deficiency anemia, unspecified iron deficiency anemia type Expected: 03/28/2024 (Approximate), Expires: 03/28/2025 [facility] Comment on above: Expected: 03/28/2024 (Approximate), Expires: 03/28/2025 Start: 03-28-2024 End: 03-28-2025 Comprehensive metabolic 1998 panel - Serum or Plasma Comprehensive metabolic panel Lab Routine Hyponatremia Expected: 03/28/2024 (Approximate), Expires: 03/28/2025 [facility] Work Phone: Comment on above: Expected: 03/28/2024 (Approximate), Expires: 03/28/2025 Start: 01-17-2024 Diabetes mellitus screening Diabetes Screening [facility] Start: 01-17-2024 Hemoglobin A1c measurement Diabetes: Hemoglobin A1C [facility] Start: 12-15-2023 Depresssion Monitoring Depresssion M onitoring [facility] Start: 12-08-2023 End: 12-08-2023 Patient encounter procedure 12/08/2023 10:30 AM EST Office Visit [address] [place] [address] Geovani Gay MD [address] [place] [address] [place] [address] [facility] Start: 10-05-2023 End: 10-05-2023 Patient encounter procedure 10/05/2023 10:15 AM EST Office Visit [facility] [address] [place] [address] [place] [address] Geovani Gay MD [address] [place] [address] [place] [address] [facility] Start: 09-04-2023 End: 09-04-2023 Patient encounter procedure 09/04/2023 9:45 AM EST Office Visit [address] [place] [address] Geovani Gay MD [address] [place] [address] [place] [address] [facility] Start: 08-17-2023 End: 08-17-2023 Patient encounter procedure 08/17/2023 11:00 AM EDT Appointment [address] [phone] Geovani Gay MD [address] [place] [address] [place] [address] [facility] Start: 07-08-2023 Screening for malign ant neoplasm of breast Mammogram [facility] Start: 07-07-2023 Screening for malign ant neoplasm of breast Breast cancer screen [facility] Start: 06-23-2023 COVID-19 Vaccine () COVID-19 Vaccine () [facility] Start: 06-23-2023 COVID-19 Vaccine () COVID-19 Vaccine () [facility] Start: 06-23-2023 Depresssion Monitoring Depresssion M onitoring [facility] Start: 06-23-2023 Influenza vaccination Influenza Vacc ine (#1) [facility] Start: 06-22-2023 End: 06-22-2023 Patient encounter procedure 06/22/2023 7:45 AM EDT Appointment [facility] [address] [place] [phone] Linda Gonzales, 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 [place], [place] [phone] [facility] Start: 06-22-2023 Subsequent hospital visit by physician 06/22/2023 7:45 AM EDT Hospital Encounter [facility] [address] [place] [address] Linda Gonzales, [employer] - 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 [place], [place] [phone] [facility] Start: 06-15-2023 End: 06-14-2024 Comprehensive metabolic 1998 panel - Serum or Plasma Comprehensive metabolic panel Lab Routine Screening for diabetes mellitus Expected: 06/15/2023 (Approximate), Expires: 06/14/2024 [facility] Comment on above: Expected: 06/15/2023 (Approximate), Expires: 06/14/2024 Start: 06-15-2023 End: 06-14-2024 Lipid 1996 panel - Serum or Plasma Lipid panel Lab Routine Mixed hyperlipidemia Expected: 06/15/2023 (Approximate), Expires: 06/14/2024 [facility] Work Phone: Comment on above: Expected: 06/15/2023 (Approximate), Expires: 06/14/2024 Start: 06-15-2023 End: 08-15-2024 MG Breast - bilateral Screening Bilateral screening mammogram Imaging Routine Encounter for screening mammogram for malignant neoplasm of breast Expected: 06/15/2023, Expires: 08/15/2024 [facility] Comment on above: Expected: 06/15/2023 , Expires: 08/15/2024 Start: 06-15-2023 End: 06-15-2023 Patient encounter procedure [facility] Start: 06-13-[address] [facility] Start: 06-09-[address] HIV [address] HIV screen [facility] Comment on above: Postponed from 02/27 (Patient Refused) Start: 2023 Hepatitis B Vaccines (1 of 3 - Risk 3-dose series) Hepatitis B Vaccines (1 of 3 - Risk 3-dose series) [facility] Start: 2023 RSV Immunization age d 60 or older (1 - 1-dose 60+ series) RSV Immunization aged 60 or older (1 - 1-dose 60+ series) [facility] Start: 2023 RSV Immunization for Adults (1 - Risk 60-74 years 1-dose series) RSV Immunization for Adults (1 - Risk 60-74 years 1-dose series) [facility] Start: 01-30-2023 Ultrasonography of abdomen Abdomen Limited [facility] Start: 01-30-2023 Ultrasound elastography [facility] Start: 01-30-[address] [facility] Start: 01-02-2023 Colsc flx w/rmvl of tumor polyp lesion snare tq COLONOSCOPY W/LESION REMOVAL [facility] Start: 01-02-2023 Egd transoral biopsy single/multiple EGD BIOPSY SINGLE/MULTIPLE [facility] Start: 01-02-2023 Patient discharge [facility] Start: 12-14-2022 End: 12-14-2022 Patient encounter procedure 12/14/2022 Office Visit Family Medicine Geovani Gay MD [address] [place] [address], [place] [address] [facility] Start: 12-10-2022 Depression Monitoring Depression Mon itoring [facility] Start: 12-10-2022 DTaP/Tdap/Td vaccine (1 - Tdap) DTaP/Tdap/Td vaccine (1 - Tdap) [facility] Comment on above: Postponed from 02/27 (Patient Refused) Start: 12-10-2022 Shingles vaccine (1 of 2) Murillo gles vaccine (1 of 2) [facility] Comment on above: Postponed from 02/27 (Patient Refused) Start: 11-16-2022 End: 11-16-2022 Patient encounter procedure 11/16/2022 Appointment Radiology [facility] Start: 09-30-2022 Pneumococcal 0-64 ye ars Vaccine (2 - PPSV23 or PCV20) Pneumococcal 0-64 years Vaccine (2 - PPSV23 or PCV20) [facility] Start: 09-30-2022 Pneumococcal Vaccine : Pediatrics (0 to 5 Years) and At-Risk Patients (6 to 64 Years) (2 - PPSV23 if available, else PCV20) Pneumococcal Vaccine: Pediatrics (0 to 5 Years) and At-Risk Patients (6 to 64 Years) (2 - PPSV23 if available, else PCV20) [facility] Start: 07-06-2022 Screening for malign ant neoplasm of breast Breast cancer screen [facility] Work Phone: Start: 06-23-2022 Influenza vaccination [facility] Start: 06-13-2022 End: 06-13-2022 Patient encounter procedure [facility] Start: 06-11-2022 Creatinine measurement Creatinine mo nitoring [facility] Work Phone: Start: 06-11-2022 Hepatitis C screening Hepatitis C sc reen [facility] Comment on above: Postponed from 02/27 (Patient Refused) Postponed from 02/27 (Patient Refused) Start: 06-11-2022 HIV screening HIV screen [facility] Comment on above: Postponed from 02/27 (Patient Refused) Start: 06-11-[address] [facility] Start: 06-11-2022 Potassium monitoring Potassium monit oring [facility] Work Phone: Start: 05-11-2022 End: 05-11-2022 Patient encounter procedure 05/11/2022 Appointment Radiology Linda Gonzales S, [employer] [address] [place] [address] Start: 04-29-2022 End: 04-29-2022 Nursing evaluation of patient and report 04/29/2022 Nurse Only Family Medicine [facility] Start: 12-13-2021 End: 12-13-2021 Patient encounter procedure 12/13/2021 Office Visit Family Medicine Geovani Gay MD [address] [place] [address] [phone] [facility] Start: 12-09-2021 DTaP/Tdap/Td vaccine (1 - Tdap) DTaP/Tdap/Td vaccine (1 - Tdap) [facility] Work Phone: Comment on above: Postponed from 02/27 (Insurance / Financial) Start: 12-09-2021 Pneumococcal 0-64 ye ars Vaccine (1 of 2 - PPSV23) Pneumococcal 0-64 years Vaccine (1 of 2 - PPSV23) [facility] Work Phone: Comment on above: Postponed from 02/27 (Insurance / Financial) Start: 12-09-2021 Shingles Vaccine (1 of 2) Murillo gles Vaccine (1 of 2) [facility] Work Phone: Comment on above: Postponed from 02/27 (Insurance / Financial) Start: 11-25-2021 Pneumococcal Vaccine : Pediatrics (0 to 5 Years) and At-Risk Patients (6 to 64 Years) (2 - PPSV23 if available, else PCV20) Pneumococcal Vaccine: Pediatrics (0 to 5 Years) and At-Risk Patients (6 to 64 Years) (2 - PPSV23 if available, else PCV20) [facility] Start: 11-03-2021 Patient referral [facility] Work Phone: Start: 09-19-2021 Lipid screen Lipid screen [facility] [place] Start: 07-07-2021 End: 07-07-2021 Patient encounter procedure 07/07/2021 Appointment Radiology [facility] Start: 07-03-2021 Breast cancer screen Breast cancer s silas [facility] Work Phone: Start: 07-03-2021 Screening for malign ant neoplasm of breast Breast cancer screen [facility] [place] Start: 07-01-2021 COVID-19 Vaccine (3 - Booster for Pfizer series) COVID-19 Vaccine (3 - Booster for Pfizer series) [facility] Start: 06-25-2021 Screening for malign ant neoplasm of lung Low dose CT lung screening [facility] Start: 06-23-2021 Influenza vaccination Flu vaccine (# 1) [facility] Work Phone: Start: 06-16-2021 End: 06-16-2021 Patient encounter procedure 06/16/2021 Office Visit Family Medicine Geovani Gay MD [address] [facility] [place] [address] [phone] [facility] Start: 06-11-2021 Creatinine measurement Creatinine mo [place], [place] Start: 06-11-2021 Lipid panel Lipid screen [place], [place] Start: 06-11-2021 Potassium monitoring Potassium monit [place], [place] Start: 03-26-2021 COVID-19 Vaccine (3 - Booster for Pfizer series) COVID-19 Vaccine (3 - Booster for Pfizer series) [facility] Start: 03-26-2021 COVID-19 Vaccine (3 - Pfizer series) COVID-19 Vaccine (3 - Pfizer series) [facility] Start: 12-10-2020 Hepatitis C [place] Comment on above: Postponed from 02/27 (Patient Refused) Start: 12-10-2020 HIV screening HIV screen [place], [place] Comment on above: Postponed from 02/27 (Patient Refused) Start: 12-10-2020 End: 12-10-2020 Office Visit 12/10/2020 Office Visit Family Medicine Geovani Gay MD [facility] [place] [address] [phone] [facility] Start: 12-04-2020 Creatinine measurement Creatinine mo [place], [place] Start: 12-04-2020 Potassium monitoring Potassium monit [place], [place] Start: 07-09-2020 End: 07-09-2020 Nurse Only 07/09/2020 Nurse Only Family Medicine [facility] Start: 07-06-2020 End: 07-06-2020 Appointment 07/06/2020 Appointment Radiology Geovani Gay MD [address] [place] [address] [place] [address] [phone] [facility] Jose Mammo Start: 07-02-2020 Breast cancer screen Breast cancer s creen [place], [place] Start: 06-23-2020 Influenza vaccination Flu vaccine (# 1) [place] Start: 06-09-2020 End: 06-09-2020 Office Visit 06/09/2020 Office Visit Family Medicine Geovani Gay MD [address] [place] [address], [facility] [place] [address] [phone] [facility] Start: 12-27-2019 Screening for malign ant neoplasm of lung Low dose CT lung screening [place], [place] Start: 07-03-2019 End: 07-03-2019 Appointment 07/03/2019 Appointment Radiology Jeffrey Correa MD [address] [place] [address] [phone] [facility] Jose Mammo Start: 06-23-2019 Influenza vaccination Flu vaccine (# 1) [place] Start: 10-09-2018 End: 10-09-2018 Appointment Appointment [facility] Work Phone: Start: 04-24-2018 End: 04-24-2018 Radex spine lumbosacral minimum 4 views XR LUMBAR 4VWS FLEX/EX [facility] Work Phone: Start: 04-24-2018 End: 04-24-2018 Appointment Appointment [facility] Work Phone: Start: 09-19-2017 Lipid panel Lipid screen [place], [place] Start: 09-19-2017 [address] Lipid screen [facility] Work Phone: Start: 2013 Colon cancer screen colonoscopy Colon cancer screen colonoscopy [place], [place] Start: 2013 Screening for malign ant neoplasm of colon Colon cancer screen colonoscopy [place] Start: 2013 Shingles Vaccine (1 of 2) Murillo gles Vaccine (1 of 2) [place] Start: 2013 Zoster Vaccines (1 of 2) Zoste r Vaccines (1 of 2) [facility] Start: 02-28-2008 Screening for malign ant neoplasm of colon [facility] Start: 2003 Diabetes screen Diabetes screen [place], [place] Start: 1998 Diabetes screen Diabetes screen [facility] Start: 1993 Screening for malign ant neoplasm of cervix [facility] Start: 02-28-1984 Cervical cancer screen Cervical canc er screen [place] Start: 02-28-1984 Screening for malign ant neoplasm of cervix [facility] Start: 1982 DTaP/Tdap/Td vaccine (1 - Tdap) DTaP/Tdap/Td vaccine (1 - Tdap) [place] Start: 1982 DTaP/Tdap/Td Vaccine s (1 - Tdap) DTaP/Tdap/Td Vaccines (1 - Tdap) [facility] Start: 1982 Hepatitis A Vaccines (1 of 2 - Risk 2-dose series) Hepatitis A Vaccines (1 of 2 - Risk 2-dose series) [facility] Start: 1981 Diabetes mellitus screening Diabetes Screening [facility] Start: 1978 HIV screen HIV screen [place], [place] Start: 1974 DTaP/Tdap/Td vaccine (1 - Tdap) DTaP/Tdap/Td vaccine (1 - Tdap) [facility] Work Phone: Start: 1973 Diabetic foot examination Diabetes: Foot Exam [facility] Start: 1973 Glaucoma screening Diabetes: R etinopathy Screening [facility] Start: 1973 Preventive dental service Diabetes: Dental Exam [facility] Start: 1969 Pneumococcal 0-64 ye ars Vaccine (1 of 1 - PPSV23) Pneumococcal 0-64 years Vaccine (1 of 1 - PPSV23) [place] Start: 02-28-1964 Hepatitis A Vaccines (1 of 2 - Risk 2-dose series) Hepatitis A Vaccines (1 of 2 - Risk 2-dose series) [facility] Start: 02-28-1964 MMR Vaccines (1 of 1 - Standard series) MMR Vaccines (1 of 1 - Standard series) [facility] Start: 1963 Hepatitis B Vaccines (1 of 3 - 3-dose series) Hepatitis B Vaccines (1 of 3 - 3-dose series) [facility] Start: 1963 Hepatitis C screen Hepatitis C scree n [facility] [place] Start: 1963 HIV screening HIV Screening [facility] Start: 1963 Screening for malign ant neoplasm of colon [facility] Blood glucose - POCT Blood gluco se - POCT Point of Care Testing STAT As Needed until discontinued starting 04/27/2022 [facility] Work Phone: Comment on above: As Needed until disc ontinued starting 04/27/2022 CBC W Auto Different ial panel - Blood [facility] CBC W Auto Different ial panel - Blood [facility] Comprehensive metabo lic 2000 panel - Serum or Plasma [facility] End: 04-27-2022 Creatinine [Mass/volume] in Serum or Plasma Creatinine, serum Lab STAT One Time for 1 Occurrences starting 04/27/2022 until 04/27/2022 [facility] Work Phone: Comment on above: One Time for 1 Occur rences starting 04/27/2022 until 04/27/2022 CT Abdomen and Pelvi s W contrast IV [facility] End: 06-22-2023 CT Chest for screening WO contrast [facility] Work Phone: Comment on above: Once for 1 Occurrenc es starting 06/22/2023 until 06/22/2023 End: 06-25-[address] LUNG SCREENING Imaging Routine Encounter for screening for lung cancer 1 Occurrences starting 06/25/2020 until 06/25/2020 [facility] above: 1 Occurrences starti ng 06/25/2020 until 06/25/[address] LUNG SCREEN ING Imaging Routine Encounter for screening for lung cancer 06/25/2020 12:49 PM EDT [facility] [place] End: 10-26-2023 DBT Breast - bilateral screening [facility] Work Phone: Comment on above: Once for 1 Occurrenc es starting 08/17/2023 until 08/17/2023 EKG 12 Lead EKG 12 Lead ECG Routine 04/18/2022 10:37 AM EDT [facility] Work Phone: Erythrocyte sediment ation rate [facility] Ferritin [Mass/volum e] in Serum or Plasma [facility] Ferritin [Mass/volum e] in Serum or Plasma [facility] Folate [Moles/volume ] in Serum or Plasma [facility] End: 04-27-2022 INITIATE PACU OXYGEN THERAPY PROTOCOL Initiate PACU Oxygen Therapy Protocol Respiratory Care Routine Continuous until discontinued starting 04/27/2022 [facility] Work Phone: Comment on above: Continuous until dis continued starting 04/27/2022 End: 04-27-2022 Intermittent pulse oximetry Pulse Oximetry Spot Check Respiratory Care Routine One Time for 1 Occurrences starting 04/27/2022 until 04/27/2022 [facility] Work Phone: Comment on above: One Time for 1 Occur rences starting 04/27/2022 until 04/27/2022 Iron [Mass/mass] in Unspecified specimen [facility] Iron and Iron bindin g capacity panel - Serum or Plasma [facility] Lactate dehydrogenas e measurement [facility] Lactate dehydrogenas e measurement [facility] Lactic acid measurement [facility] End: 04-18-2022 Levetiracetam Level [facility] Work Phone: Comment on above: 1 Occurrences starti ng 04/18/2022 until 04/18/2022 End: 05-11-[address] -Abnormal Lung Screen Follow up [facility] Work Phone: Comment on above: 1 Occurrences starti ng 05/11/2022 until 05/11/2022 Magnesium measurement [facility] Nasal Cannula Oxygen Nasal Cannu la Oxygen Respiratory Care Routine As Needed until discontinued starting 04/27/2022 [facility] Work Phone: Comment on above: As Needed until disc ontinued starting 04/27/2022 Nasal Cannula Oxygen Nasal Cannu la Oxygen Respiratory Care Routine As Needed until discontinued starting 04/27/2022 [facility] Work Phone: Comment on above: As Needed until disc ontinued starting 04/27/2022 Nonrebreather mask oxygen Nonreb reather mask oxygen Respiratory Care Routine As Needed until discontinued starting 04/27/2022 [facility] Work Phone: Comment on above: As Needed until disc ontinued starting 04/27/2022 Nonrebreather mask oxygen Nonreb reather mask oxygen Respiratory Care Routine As Needed until discontinued starting 04/27/2022 [facility] Work Phone: Comment on above: As Needed until disc ontinued starting 04/27/2022 OUTSIDE PROCEDURE SCAN OUTSIDE P ROCEDURE SCAN Procedures Ordered: 06/21/2023 [facility] Comment on above: Ordered: 06/21/2023 OUTSIDE PROCEDURE SCAN OUTSIDE P ROCEDURE SCAN Procedures Ordered: 11/15/2022 [facility] Comment on above: Ordered: 11/15/2022 Oxygen therapy [[facility] Data Set] [facility] Work Phone: Comment on above: As Needed until disc ontinued starting 04/27/2022 Daily until disconti nued starting 04/27/2022 Patient Education [facility] Work Phone: Patient referral [facility] Work Phone: End: 04-27-2022 Potassium w/ Reflex to Magnesium Potassium w/ Reflex to Magnesium Lab Routine One Time for 1 Occurrences starting 04/27/2022 until 04/27/2022 [facility] Work Phone: Comment on above: One Time for 1 Occur rences starting 04/27/2022 until 04/27/2022 End: 04-27-2022 Protime-INR Protime-INR Lab STAT One Time for 1 Occurrences starting 04/27/2022 until 04/27/2022 [facility] Work Phone: Comment on above: One Time for 1 Occur rences starting 04/27/2022 until 04/27/2022 Reticulocyte count [facility] End: 07-03-2019 Screening digital breast tomosynthesis bi Demian Isaac Digital Screen Bilateral Imaging Routine Once for 1 Occurrences starting 07/03/2019 until 07/03/2019 [facility] [place] Comment on above: Once for 1 Occurrenc es starting 07/03/2019 until 07/03/2019 Screening digital br east tomosynthesis bi Demian Isaac Digital Screen Bilateral Imaging Routine 07/03/2019 10:31 AM EDT [facility] Serum immunofixation [facility] Serum inorganic phos phate measurement [facility] Spirometry panel Incentive alda metry Respiratory Care Routine Q1H PRN until discontinued starting 04/27/2022 [facility] Work Phone: Comment on above: Q1H PRN until discon tinued starting 04/27/2022 End: 04-27-2022 Surgical Pathology [facility] Work Phone: Comment on above: Once for 1 Occurrenc es starting 04/27/2022 until 04/27/2022 Transferrin [Mass/vo lume] in Serum or Plasma [facility] Urine culture [facility] Vitamin B12 measurement 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 Work Phone: [facility] 04-25-2024 tuberculin skin test ; purified protein derivative solution, intradermal Linda Gonzales [employer] - [employer] FINISH[employer] Work Phone: [facility] 09-08-2023 influenza, injectabl e, quadrivalent, preservative free Geovani Gay MD Work Phone: [facility] 09-08-2023 influenza virus vaccine, unspecified formulation Geovani Gay MD Work Phone: [facility] 06-15-2023 pneumococcal polysaccharide vaccine, 23 valent Geovani Gay MD Work Phone: [facility] 07-28-2022 Covid Pfizer Bivalen t Booster Dr. Geovani Gay MD Work Phone: [facility] 07-28-2022 influenza, injectabl e, quadrivalent, preservative free Geovani Gay MD Work Phone: [facility] 07-28-2022 Moderna SARS-CoV-2 Vaccination Linda Gonzales [employer]IED Lobito REINOSO Work Phone: [facility] 07-28-2022 influenza virus vaccine, unspecified formulation Geovani Gay MD Work Phone: [facility] 09-30-2021 pneumococcal conjuga te vaccine, [address] Geovani Gay Work Phone: [facility] 09-30-2021 pneumococcal vaccine , unspecified formulation Dr. Geovani Gay Work Phone: [facility] Work Phone: 01-29-2021 COVID-19, Pfizer, PF , 30mcg/0.3mL Geovani Gay MD Work Phone: [facility] Work Phone: 01-08-2021 COVID-19, Pfizer, PF , 30mcg/0.3mL Geovani Gay MD Work Phone: [facility] Work Phone: 07-14-2020 influenza, injectabl e, quadrivalent, contains preservative Geovani Gay MD Work Phone: [facility] 07-14-2020 influenza, injectabl e, quadrivalent, preservative free Dr. Geovani Gay MD Work Phone: [facility] 12-10-2019 influenza, injectabl e, quadrivalent, contains preservative [place] 12-10-2019 influenza, injectabl e, quadrivalent, preservative free Dr. Geovani Gay MD Work Phone: [facility] 09-05-2018 influenza, injectabl e, quadrivalent, preservative free Mandeep [facility] [place] 07-25-2017 influenza virus vaccine, unspecified formulation [facility], [place] 07-25-2017 influenza, injectabl e, quadrivalent, preservative free Dr. Geovani Gay MD Work Phone: [facility] 09-24-2015 Influenza Vaccine, unspecified formulation Mandeep [facility] [place] 09-24-2015 influenza, injectabl e, quadrivalent, preservative free Dr. Geovani Gay MD Work Phone: [facility] 09-01-2005 influenza virus vaccine, unspecified formulation [facility] No information available. Eloina Rao [facility] Work Phone: Payers Date Payer Category Payer Self-pay [id number] 2023 Medicaid HMO [employer] [facility] Address: [address] [address] [id number] 2023 Unknown [id number] 2022 Medicaid [id number] 2019 Unknown [employer] [facility] MEDICAID xxxxxxxxxxx 2019-Present [phone] CLAIMS DEPARTMENT [address] [place] [address] xxxxxxxxxxx [id number] 2019 Unknown [id number] 2016 Unknown BCBS [place] P PO xxxxxxxxxxxx 2016-Present [address] [place] [address] xxxxxxxxxxxx [id number] 2005 Self-pay SELF PAY HSP/MED ICAL SELF PAY [id number] SELF PAY Indemnity [id number] 1963 Unknown [id number] 1963 Unknown [id number] 1963 Unknown [id number] 12.08.830.1.106211.3.579.2 1963 Unknown [id number] 12.08.830.1.111870.3.579.2 1963 Unknown [id number] 1963 Unknown [id number]. 1963 Unknown [id number] Unknown Unknown [id number] Unknown [id number] Unknown [id number] 2.16.840.1.925833.3.579.2.462 Unknown [id number] 2.16.840.1.721870.3.579.2.462 Unknown [id number] 2.16.840.1.594574.3.579.2.462 Unknown [id number] 2.16.840.1.565175.3.579.2.462 Unknown [id number] 2.16.840.1.855837.3.579.2.462 Unknown [id number] 2.16.840.1.848263.3.579.2.462 Unknown [id number] 2.16.840.1.761593.3.579.2.462 Unknown [id number] 2.16.840.1.484599.3.579.2.462 Unknown [id number] 2.16.840.1.109943.3.579.2.462 Unknown [id number] 2.16.840.1.012401.3.579.2.462 Unknown [id number] 2.16.840.1.107180.3.579.2.462 Unknown [id number] 2.16.840.1.832193.3.579.2.462 Unknown [id number] 2.16.840.1.851692.3.579.2.462 Unknown [id number] [id number] Unknown [id number] Social History Date Type Detail Facility Start: 11-03-2021 End: 01-16-2023 Assertion Unknown if ever smoked [facility] Work Phone: Start: 09-19-2016 End: 07-21-2025 Tobacco smoking status NHIS Current every day sm[place] Start: 09-19-2016 End: 04-17-2025 Alcohol intake No [place] Start: 1965 Sex Assigned At Not on file [place] Start: 04-10-2020 End: 02-06-2025 Cigarettes smoked current (pack per day) - Reported [place] Start: 09-19-2016 End: 04-10-2020 Alcohol intake Current non-drinker of alcohol (finding) [facility] Work Phone: Exposure to SARS-CoV -2 (event) Unable to assess [place] Start: 06-23-2020 End: 08-19-2024 Tobacco use and exposure Never used [place] Start: 06-23-2020 End: 12-21-2022 Alcohol intake Current drinker of alcohol (finding) [place] Start: 06-08-2020 End: 09-07-2022 History SDOH Alcohol Frequency 2 [place] Start: 06-08-2020 End: 09-07-2022 History SDOH Alcohol Binge 1 [place] Start: 06-08-2020 End: 06-10-2021 History SDOH Financial 5 [place] Start: 04-08-2022 End: 06-22-2023 Exposure to SARS-CoV-2 (event) Not sure [place] Start: 07-30-2020 Occasional [facility] Start: 07-30-2020 None [facility] Start: 07-30-2020 Spouse/ Signif icant Other [facility] Start: 08-04-2020 Cigarettes [facility] Start: 1965 Sex Assigned At Female W [facility] History of tobacco use Cigarette Smoker S [facility] Work Phone: Start: 04-18-2022 History SDOH Alcohol Comment 12 pack beer daily [facility] Work Phone: Start: 06-13-2022 History SDOH Financial 3 [facility] Work Phone: Start: 09-07-2022 History SDOH Financial 4 damntheradio How hard is it for y ou to pay for the very basics like food, housing,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 History[1] SURGICAL HISTORY Surgical History[2] CURRENT MEDICATIONS Previous Medications ALBUTEROL 108 (90 BASE) MCG/ACT INHALER INHALE 2 PUFFS 4 TIMES DAILY NEEDED FOR WHEEZING OR SHORTNESS OF BREATH. ALPRAZOLAM (XANAX) 1 MG TABLET Take 1 mg by mouth every 24 hours as needed. AMLODIPINE (NORVASC) 10 MG TABLET TAKE 1 TABLET (10 MG) BY MOUTH DAILY. ATORVASTATIN (LIPITOR) 80 MG TABLET TAKE 1 TABLET BY MOUTH EVERY DAY BUSPIRONE (BUSPAR) 10 MG TABLET Take 10 mg by mouth 3 times daily. CALCIUM CARB-CHOLECALCIFEROL (CALCIUM CARBONATE+VITAMIN D PO) Take by mouth. 400-12.5 mg CARBAMAZEPINE XR (TEGRETOL XR) 200 MG 12 HR TABLET TAKE 2 TABLETS (400 MG) BY MOUTH 2 TIMES DAILY. DO NOT CRUSH, CHEW, OR SPLIT. CYANOCOBALAMIN (VITAMIN B 12 PO) Take 1,000 mcg by mouth in the morning. DULOXETINE (CYMBALTA) [address] CAPSULE Take 30 mg by mouth Nightly. DULOXETINE (CYMBALTA) [address] CAPSULE Take 60 mg by mouth daily. ERGOCALCIFEROL (VITAMIN D2) 1.25 MG (47241 UT) CAPSULE TAKE 1 CAPSULE BY MOUTH ONE TIME PER WEEK FUROSEMIDE (LASIX) 20 MG TABLET Take 1 tablet (20 mg) by mouth 2 times daily. IPRATROPIUM-ALBUTEROL (DUO-NEB) 0.5-2.5 MG/3 ML NEBULIZER SOLUTION Take 3 mL by nebulization 4 times daily as needed for wheezing or shortness of breath. LEVETIRACETAM (KEPPRA) 500 MG TABLET TAKE 2 TABLETS BY MOUTH 2 TIMES DAILY LISINOPRIL 20 MG TABLET TAKE 1 TABLET BY MOUTH TWICE A DAY METOPROLOL SUCCINATE XL (TOPROL-XL) 25 MG 24 HR TABLET TAKE 1 TABLET BY MOUTH EVERY DAY MULTIPLE VITAMIN (MULTIVITAMIN ADULT PO) Take by mouth. NEBULIZER SYSTEM ALL-IN-ONE MISC 1 each every 6 hours as needed (wheezing, cough,). NYSTATIN (MYCOSTATIN) 528019 UNIT/ML SUSPENSION Take 5 mL (500,000 Units) by mouth 4 times daily. Swish in mouth and swallow. OMEPRAZOLE (PRILOSEC) [address] CAPSULE TAKE 1 CAPSULE BY MOUTH TWICE A DAY ONDANSETRON (ZOFRAN) 4 MG TABLET TAKE 1 TABLET BY MOUTH TWICE DAILY NEEDED FOR NAUSEA OR VOMITING OXYGEN (O2) GAS Inhale 2.5 L continuous. via nasal canula PANTOPRAZOLE (PROTONIX) 40 MG EC TABLET Take 40 mg by mouth 2 times daily. PERPHENAZINE 4 MG TABLET Take 4 mg by mouth daily. POTASSIUM CHLORIDE CR (KLOR-CON M20) 20 MEQ ER TABLET Take 1 tablet (20 mEq) by mouth daily. SENEXON-S 8.6-50 MG TABLET Take 1 tablet by mouth 2 times daily. SPACER/AERO-HOLDING CHAMBERS (AEROCHAMBER MV) INHALER Use as instructed SPIRONOLACTONE (ALDACTONE) 25 MG TABLET TAKE 1 TABLET BY MOUTH EVERY DAY SUCRALFATE (CARAFATE) 1 G TABLET Take 1 g by mouth. SYMBICORT 160-4.5 MCG/ACT INHALER Inhale 1 puff 2 times daily. THIAMINE (VITAMIN B-1) 50 MG TABLET Take 100 mg by mouth daily. TRAMADOL (ULTRAM) 50 MG TABLET Take 1 tablet (50 mg) by mouth 2 times daily as needed for severe pain (7-10). UMECLIDINIUM (INCRUSE ELLIPTA) 62.5 MCG/ACT INHALATION Inhale 1 puff (62.5 mcg) daily. ALLERGIES Pseudoephedrine, Bupropion, Cefuroxime, Codeine, Cyclobenzaprine, Doxepin, Fluoxetine, Gabapentin, Nicotine, Psyllium, Risperidone and paliperidone, Tape, and Wound dressing adhesive FAMILY HISTORY Family History[3] SOCIAL HISTORY Social History[4] PHYSICAL EXAM ED Triage Vitals [05/07/25 0937] Temp Heart Rate Resp BP 36.1 C (96.9 F) 81 20 (!) 168/60 SpO2 Temp Source Heart Rate Source Patient Position 99 % Tympanic Monitor -- BP Location FiO2 (%) -- -- Physical Exam Maxillary sinus tenderness to percussion, no lymphadenopathy present DIAGNOSTIC RESULTS RADIOLOGY (Per Emergency Physician): Interpretation per the Radiologist below, if available at the time of this note: No orders to display LABS: Labs Reviewed - No data to display All other labs were within normal range or not returned as of this dictation. EMERGENCY DEPARTMENT COURSE and DIFFERENTIAL DIAGNOSIS/MDM: Vitals: Vitals: 05/07/25 0937 BP: (!) 168/60 Pulse: 81 Resp: 20 Temp: 36.1 C (96.9 F) TempSrc: Tympanic SpO2: 99% Weight: 69.4 kg (153 lb) Height: 1.524 m (5') Medications - No data to display SCREENINGS MDM elements: The patient presented with chief complaint of with sinus congestion and feeling like she is getting an infection with no measured fevers, treating with a Z-Joselo and nasal spray, patient has allergy to pseudoephedrine so could not prescribe her a decongestant. The differential diagnosis associated with this patient's presentation includes sinusitis, sinus congestion. Our workup consisted of ordering/reviewing: No need for imaging or labs treating with antibiotic. The patient will be Discharged. Patient is in agreement with this plan. PROCEDURES: Unless otherwise noted below, none Procedures CRITICAL CARE TIME None FINAL IMPRESSION 1. Sinus congestion DISPOSITION Discharge 05/07/2025 09:41:53 AM PATIENT REFERRED TO: Geovani Gay MD [address] [place] [address], [address] [facility] [address] Schedule an appointment as soon as possible for a visit As needed DISCHARGE MEDICATIONS: New Prescriptions AZITHROMYCIN (ZITHROMAX Z-JOSELO) 250 MG TABLET Take 1 tablet (250 mg) by mouth daily for 5 days. FLUTICASONE (FLONASE) 50 MCG/ACT NASAL SPRAY Administer 2 sprays into each nostril daily for 5 days. Shake gently. Before first use, prime pump. After use, clean tip and replace cap. (Comment: Please note this report has been produced using speech recognition software and may contain errors related to that system including errors in grammar, punctuation, and spelling, as well as words and phrases that may be inappropriate. If there are any questions or concerns please feel freeto contact the dictating provider for clarification.) Gena Jones MD (electronically signed) Emergency Medicine Provider [1] Past Medical History: Diagnosis Date Acid reflux Alcohol abuse 12 PACK /DAY Anemia Anxiety Arthritis Asthma Cholelithiasis SCHEDULED FOR THE SURGERY ON COPD (chronic obstructive pulmonary disease) (HCC) mild Depression Fatty liver Fibromyalgia Hyperlipidemia Hypertension Nicotine dependence Seizures (HCC) last seizure 5 yrs ago [2] Past Surgical History: Procedure Laterality Date ANKLE SURGERY Left BACK SURGERY x3 CHOLECYSTECTOMY 04/27/2022 CHOLECYSTECTOMY 03/2022 COLONOSCOPY EYE SURGERY Bilateral cataracts NECK SURGERY fusion TUBAL LIGATION [3] Family History Problem Relation Name Age of Onset Heart attack Mother Arthritis Mother High Blood Pressure Mother Depression Mother Cervical cancer Mother 30 Substance Abuse Father Arthritis Father High Blood Pressure Father Diabetes Father [4] Social History Socioeconomic History Marital status: Tobacco Use Smoking status: Every Day Current packs/day: 1.00 Average packs/day: 1 pack/day for 40.0 years (40.0 ttl pk-yrs) Types: Cigarettes Passive exposure: Never Smokeless tobacco: Never Vaping Use Vaping status: Never Used Substance and Sexual Activity Alcohol use: Not Currently Comment: none since 03/23/24 Drug use: No Sexual activity: Not Currently Social Drivers of Health Financial Resource Strain: Patient Declined (02/06/2025) Overall Financial Resource Strain (CARDIA) Difficulty of Paying Living Expenses: Patient declined Food Insecurity: Patient Declined (02/06/2025) Hunger Vital Sign Worried About Running Out of Food in the Last Year: Patient declined Ran Out of Food in the Last Year: Patient declined Transportation Needs: Patient Declined (02/06/2025) PRAPARE - Transportation Lack of Transportation (Medical): Patient declined Lack of Transportation (Non-Medical): Patient declined Physical Activity: Patient Declined (02/06/2025) Exercise Vital Sign Days of Exercise per Week: Patient declined Minutes of Exercise per Session: Patient declined Stress: Patient Declined (02/06/2025) [place] [employer] - Occupational Stress Questionnaire Feeling of Stress : Patient declined Social Connections: Patient Declined (02/06/2025) Social Connection and Isolation Panel [NHANES] Frequency of Communication with Friends and Family: Patient declined Frequency of Social Gatherings with Friends and Family: Patient declined Attends Congregational Services: Patient declined Active Member of Clubs or Organizations: Patient declined Attends Club or Organization Meetings: Patient declined Marital Status: Patient declined Intimate Partner Violence: Patient Declined (02/06/2025) Humiliation, Afraid, Rape, and Kick questionnaire Fear of Current or Ex-Partner: Patient declined Emotionally Abused: Patient declined Physically Abused: Patient declined Sexually Abused: Patient declined Housing Stability: Patient Declined (02/06/2025) Housing Stability Vital Sign Unable to Pay for Housing in the Last Year: Patient declined Number of Times Moved in the Last Year: 1 Homeless in the Last Year: Patient declined Gena Jones MD 05/07/25 0947 * Viktoriya Vasquez RN - 05/07/2025 9:25 AM EDT Patient to room 3 with c/o sinus pain for the last 4 days. Patient reports she gets this a couple times a year. V/S obtained, call light within reach. documented in [id number] Emergency department Triage note* Viktoriya Vasquez RN - 05/07/2025 9:25 AM EDT Patient to room 3 with c/o sinus pain for the last 4 days. Patient reports she gets this a couple times a year. V/S obtained, call light within reach. [id number] Phys[facility] Emergency department Note* Gena Jones MD - 05/07/2025 9:25 AM EDT EMERGENCY DEPARTMENT ENCOUNTER Pt Name: Aisha Ha Birthdate 1965 Date of evaluation: 05/07/2025 ED Provider: Gena Jones MD CHIEF COMPLAINT Chief Complaint Patient presents with Facial Pain HISTORY OF PRESENT ILLNESS (Location/Symptom, Timing/Onset, Context/Setting, Quality, Duration, Modifying Factors, Severity) Note limiting factors. I wore appropriate PPE for the entirety of this encounter. HPI Aisha Ha is a 60 y.o. who presents to the emergency department with sinus nausea and, not feeling well, says she gets yearly sinusitis that needs antibiotics, no measured fevers, facial pain andthick nasal drainage Nursing Notes were reviewed. Limitations to history: None Outside historians: Significant other REVIEW OF SYSTEMS Review of Systems Pertinent positives and negatives as per HPI PAST MEDICAL HISTORY Medical History[1] SURGICAL HISTORY Surgical History[2] CURRENT MEDICATIONS Previous Medications ALBUTEROL 108 (90 BASE) MCG/ACT INHALER INHALE 2 PUFFS 4 TIMES DAILY NEEDED FOR WHEEZING OR SHORTNESS OF BREATH. ALPRAZOLAM (XANAX) 1 MG TABLET Take 1 mg by mouth every 24 hours as needed. AMLODIPINE (NORVASC) 10 MG TABLET TAKE 1 TABLET (10 MG) BY MOUTH DAILY. ATORVASTATIN (LIPITOR) 80 MG TABLET TAKE 1 TABLET BY MOUTH EVERY DAY BUSPIRONE (BUSPAR) 10 MG TABLET Take 10 mg by mouth 3 times daily. CALCIUM CARB-CHOLECALCIFEROL (CALCIUM CARBONATE+VITAMIN D PO) Take by mouth. 400-12.5 mg CARBAMAZEPINE XR (TEGRETOL XR) 200 MG 12 HR TABLET TAKE 2 TABLETS (400 MG) BY MOUTH 2 TIMES DAILY. DO NOT CRUSH, CHEW, OR SPLIT. CYANOCOBALAMIN (VITAMIN B 12 PO) Take 1,000 mcg by mouth in the morning. DULOXETINE (CYMBALTA) [address] CAPSULE Take 30 mg by mouth Nightly. DULOXETINE (CYMBALTA) [address] CAPSULE Take 60 mg by mouth daily. ERGOCALCIFEROL (VITAMIN D2) 1.25 MG (36171 UT) CAPSULE TAKE 1 CAPSULE BY MOUTH ONE TIME PER WEEK FUROSEMIDE (LASIX) 20 MG TABLET Take 1 tablet (20 mg) by mouth 2 times daily. IPRATROPIUM-ALBUTEROL (DUO-NEB) 0.5-2.5 MG/3 ML NEBULIZER SOLUTION Take 3 mL by nebulization 4 times daily as needed for wheezing or shortness of breath. LEVETIRACETAM (KEPPRA) 500 MG TABLET TAKE 2 TABLETS BY MOUTH 2 TIMES DAILY LISINOPRIL 20 MG TABLET TAKE 1 TABLET BY MOUTH TWICE A DAY METOPROLOL SUCCINATE XL (TOPROL-XL) 25 MG 24 HR TABLET TAKE 1 TABLET BY MOUTH EVERY DAY MULTIPLE VITAMIN (MULTIVITAMIN ADULT PO) Take by mouth. NEBULIZER SYSTEM ALL-IN-ONE MISC 1 each every 6 hours as needed (wheezing, cough,). NYSTATIN (MYCOSTATIN) 304951 UNIT/ML SUSPENSION Take 5 mL (500,000 Units) by mouth 4 times daily. Swish in mouth and swallow. OMEPRAZOLE (PRILOSEC) [address] CAPSULE TAKE 1 CAPSULE BY MOUTH TWICE A DAY ONDANSETRON (ZOFRAN) 4 MG TABLET TAKE 1 TABLET BY MOUTH TWICE DAILY NEEDED FOR NAUSEA OR VOMITING OXYGEN (O2) GAS Inhale 2.5 L continuous. via nasal canula PANTOPRAZOLE (PROTONIX) 40 MG EC TABLET Take 40 mg by mouth 2 times daily. PERPHENAZINE 4 MG TABLET Take 4 mg by mouth daily. POTASSIUM CHLORIDE CR (KLOR-CON M20) 20 MEQ ER TABLET Take 1 tablet (20 mEq) by mouth daily. SENEXON-S 8.6-50 MG TABLET Take 1 tablet by mouth 2 times daily. SPACER/AERO-HOLDING CHAMBERS (AEROCHAMBER MV) INHALER Use as instructed SPIRONOLACTONE (ALDACTONE) 25 MG TABLET TAKE 1 TABLET BY MOUTH EVERY DAY SUCRALFATE (CARAFATE) 1 G TABLET Take 1 g by mouth. SYMBICORT 160-4.5 MCG/ACT INHALER Inhale 1 puff 2 times daily. THIAMINE (VITAMIN B-1) 50 MG TABLET Take 100 mg by mouth daily. TRAMADOL (ULTRAM) 50 MG TABLET Take 1 tablet (50 mg) by mouth 2 times daily as needed for severe pain (7-10). UMECLIDINIUM (INCRUSE ELLIPTA) 62.5 MCG/ACT INHALATION Inhale 1 puff (62.5 mcg) daily. ALLERGIES Pseudoephedrine, Bupropion, Cefuroxime, Codeine, Cyclobenzaprine, Doxepin, Fluoxetine, Gabapentin, Nicotine, Psyllium, Risperidone and paliperidone, Tape, and Wound dressing adhesive FAMILY HISTORY Family History[3] SOCIAL HISTORY Social History[4] PHYSICAL EXAM ED Triage Vitals [05/07/25 0937] Temp Heart Rate Resp BP 36.1 C (96.9 F) 81 20 (!) 168/60 SpO2 Temp Source Heart Rate Source Patient Position 99 % Tympanic Monitor -- BP Location FiO2 (%) -- -- Physical Exam Maxillary sinus tenderness to percussion, no lymphadenopathy present DIAGNOSTIC RESULTS RADIOLOGY (Per Emergency Physician): Interpretation per the Radiologist below, if available at the time of this note: No orders to display LABS: Labs Reviewed - No data to display All other labs were within normal range or not returned as of this dictation. EMERGENCY DEPARTMENT COURSE and DIFFERENTIAL DIAGNOSIS/MDM: Vitals: Vitals: 05/07/25 0937 BP: (!) 168/60 Pulse: 81 Resp: 20 Temp: 36.1 C (96.9 F) TempSrc: Tympanic SpO2: 99% Weight: 69.4 kg (153 lb) Height: 1.524 m (5') Medications - No data to display SCREENINGS MDM elements: The patient presented with chief complaint of with sinus congestion and feeling like she is getting an infection with no measured fevers, treating with a Z-Joselo and nasal spray, patient has allergy to pseudoephedrine so could not prescribe her a decongestant. The differential diagnosis associated with this patient's presentation includes sinusitis, sinus congestion. Our workup consisted of ordering/reviewing: No need for imaging or labs treating with antibiotic. The patient will be Discharged. Patient is in agreement with this plan. PROCEDURES: Unless otherwise noted below, none Procedures CRITICAL CARE TIME None FINAL IMPRESSION 1. Sinus congestion DISPOSITION Discharge 05/07/2025 09:41:53 AM PATIENT REFERRED TO: Geovani Gay MD [address] [place] [address], [address] [facility] [address] Schedule an appointment as soon as possible for a visit As needed DISCHARGE MEDICATIONS: New Prescriptions AZITHROMYCIN (ZITHROMAX Z-JOSELO) 250 MG TABLET Take 1 tablet (250 mg) by mouth daily for 5 days. FLUTICASONE (FLONASE) 50 MCG/ACT NASAL SPRAY Administer 2 sprays into each nostril daily for 5 days. Shake gently. Before first use, prime pump. After use, clean tip and replace cap. (Comment: Please note this report has been produced using speech recognition software and may contain errors related to that system including errors in grammar, punctuation, and spelling, as well as words and phrases that may be inappropriate. If there are any questions or concerns please feel freeto contact the dictating provider for clarification.) Gena Jones MD (electronically signed) Emergency Medicine Provider [1] Past Medical History: Diagnosis Date Acid reflux Alcohol abuse 12 PACK /DAY Anemia Anxiety Arthritis Asthma Cholelithiasis SCHEDULED FOR THE SURGERY ON COPD (chronic obstructive pulmonary disease) (HCC) mild Depression Fatty liver Fibromyalgia Hyperlipidemia Hypertension Nicotine dependence Seizures (HCC) last seizure 5 yrs ago [2] Past Surgical History: Procedure Laterality Date ANKLE SURGERY Left BACK SURGERY x3 CHOLECYSTECTOMY 04/27/2022 CHOLECYSTECTOMY 03/2022 COLONOSCOPY EYE SURGERY Bilateral cataracts NECK SURGERY fusion TUBAL LIGATION [3] Family History Problem Relation Name Age of Onset Heart attack Mother Arthritis Mother High Blood Pressure Mother Depression Mother Cervical cancer Mother 30 Substance Abuse Father Arthritis Father High Blood Pressure Father Diabetes Father [4] Social History Socioeconomic History Marital status: Tobacco Use Smoking status: Every Day Current packs/day: 1.00 Average packs/day: 1 pack/day for 40.0 years (40.0 ttl pk-yrs) Types: Cigarettes Passive exposure: Never Smokeless tobacco: Never Vaping Use Vaping status: Never Used Substance and Sexual Activity Alcohol use: Not Currently Comment: none since 03/23/24 Drug use: No Sexual activity: Not Currently Social Drivers of Health Financial Resource Strain: Patient Declined (02/06/2025) Overall Financial Resource Strain (CARDIA) Difficulty of Paying Living Expenses: Patient declined Food Insecurity: Patient Declined (02/06/2025) Hunger Vital Sign Worried About Running Out of Food in the Last Year: Patient declined Ran Out of Food in the Last Year: Patient declined Transportation Needs: Patient Declined (02/06/2025) PRAPARE - Transportation Lack of Transportation (Medical): Patient declined Lack of Transportation (Non-Medical): Patient declined Physical Activity: Patient Declined (02/06/2025) Exercise Vital Sign Days of Exercise per Week: Patient declined Minutes of Exercise per Session: Patient declined Stress: Patient Declined (02/06/2025) [place] [employer] - Occupational Stress Questionnaire Feeling of Stress : Patient declined Social Connections: Patient Declined (02/06/2025) Social Connection and Isolation Panel [NHANES] Frequency of Communication with Friends and Family: Patient declined Frequency of Social Gatherings with Friends and Family: Patient declined Attends Congregational Services: Patient declined Active Member of Clubs or Organizations: Patient declined Attends Club or Organization Meetings: Patient declined Marital Status: Patient declined Intimate Partner Violence: Patient Declined (02/06/2025) Humiliation, Afraid, Rape, and Kick questionnaire Fear of Current or Ex-Partner: Patient declined Emotionally Abused: Patient declined Physically Abused: Patient declined Sexually Abused: Patient declined Housing Stability: Patient Declined (02/06/2025) Housing Stability Vital Sign Unable to Pay for Housing in the Last Year: Patient declined Number of Times Moved in the Last Year: 1 Homeless in the Last Year: Patient declined Gena Jones MD 05/07/25 0947 [id number] Telephone encounter Note* Telephone Encounter - GARETH Calloway CNP - 04/25/2025 7:27 AM EDT Reviewed chart. Refill appropriate. RX sent. [id number] Miscellaneous Notes* Telephone Encounter - GARETH Calloway CNP - 04/25/2025 7:27 AM EDT Reviewed chart. Refill appropriate. RX sent. documented in this [facility]07-04-2025 Telephone encounter Note* Telephone Encounter - GARETH Calloway CNP - 04/25/2025 7:26 AM EDT Reviewed chart. Refill appropriate. RX sent. [id number] Miscellaneous Notes* Telephone Encounter - GARETH Calloway CNP - 04/25/2025 7:26 AM EDT Reviewed chart. Refill appropriate. RX sent. documented in this [facility]06-23-2025 Telephone encounter Note* Telephone Encounter - Francy Roper - 04/14/2025 7:32 AM EDT Prescription Request: METOPROLOL SUCC ER 25 MG TAB Last medication check: 03/04/25 Last physical exam: 06/13/24 Next scheduled appointment: 09/10/25 Last date of refill on this medication 10/28/24 ( qty 90 refill 1) [id number] Miscellaneous Notes* Telephone Encounter - Francy Roper - 04/14/2025 7:32 AM EDT Prescription Request: METOPROLOL SUCC ER 25 MG TAB Last medication check: 03/04/25 Last physical exam: 06/13/24 Next scheduled appointment: 09/10/25 Last date of refill on this medication 10/28/24 ( qty 90 refill 1) documented in this [facility]06-16-2025 History of Present illness Narrative* Nia Zuniga MA - 04/07/2025 10:00 AM EDT Patient verified by last name and . * Linda Gonzales APRN - [employer] - 04/07/2025 10:00 AM EDT Images from the original note were not included. [address] [id number] Post-Discharge Transitional Care Follow Up Date of Hospital Admission: 03/20/25 Date of Hospital Discharge: 03/25/25 Readmission Risk Score: Predictive Model Details 7% Factor Value Risk of Hospital Admission or ED Visit Model 48% Is in Relationship Yes 20% Has Medicaid Yes 8% Has COPD Yes 7% Has Anemia Yes 6% Has Depression Yes 5% Has Asthma Yes 4% Has Chronic Liver Disease Yes 2% Has PCP Yes Patient was contacted by care management services within two days of their discharge. This encounter and supporting documentation was reviewed. Date of post-discharge communication contact: 03/28/25 ASSESSMENT/PLAN 1. Hospital discharge follow-up 2. Acute on chronic respiratory failure with hypoxia (HCC) - [facility] [place] Pulmonary/Pulmonology - Chronic, stable - Currently wearing 3 L of oxygen via nasal cannula with a pulse oximeter 94% - Continue oxygen as prescribed and will consult with pulmonology for ongoing management 3. Pneumonia due to infectious organism, unspecified laterality, unspecified part of lung - amoxicillin-clavulanate (Augmentin) 875-125 MG tablet; Take 1 tablet by mouth 2 times daily for 10 days., Starting 04/07/2025, Until Ana Lilia 04/17/2025, Normal - Not improved - Received Levaquin while hospitalized, but does not feel any better - Will do a 10-day regimen of Augmentin - Discussed signs and symptoms warranting immediate attention- verbalized understanding. 4. Hypokalemia - Comprehensive metabolic panel - Symptoms stable, not currently taking any supplementation - Will recheck potassium level today and provide recommendations accordingly 5. Hypomagnesemia - Magnesium - Symptoms stable, not currently taking any supplementation - Will recheck magnesium level today and provide recommendations accordingly 6. 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 Dependence on continuous supplemental oxygen - [facility] [place] Pulmonary/Pulmonology - Oxygen level stable on 3 L via nasal cannula - Will have her consult with pulmonology for ongoing management 8. Chronic obstructive pulmonary disease, unspecified COPD type (HCC) - [facility] [place] Pulmonary/Pulmonology - Chronic, stable - Incruse Ellipta as prescribed - Continuous oxygen as directed Medical Decision Making moderate Follow up in 5 months (on 09/10/2025) for Next scheduled follow-up or sooner if needed. Linda Gonzales APRN - KEMAR 04/07/25 10:04 AM MARYANNE Izaguirre presents today for a hospital discharge follow-up from [facility] from 03/20/2025 through 03/25/2025. She presented to the hospital with concerns of increased confusion and shortness of breath. Per the ER report her family reported that she was more confused than her normal self and notes that for the last 3 to 4 days she had not been feeling well. They stated that if she attempted to walk even a short distance, that she became significantly more short of breath. Had an associated cough as well. Her blood work was significant for leukocytosis of 20,000, hemoglobin was 7.2, platelet count was noted to be 224. Her sodium was also low at 130, potassium was low at 2.2. She was given 40 mill equivalents of IV supplementation as well as 40 mill equivalents orally of potassium. Her magnesium was low at 1.1 and was given 4 g of magnesium supplementation. Her EKG was reviewed which showed sinus rhythm with a rate of [address] depressions in the lateral leads likely secondary to her shortness of breath hypoxia. Her chest x-ray showed a left mid-lung and basilar consolidative opacity suspicious for pneumonia. Was given intravenous Levaquin. Her COVID, flu, and RSV swab was negative. She received albuterol treatments in the ER. Was ultimately admitted for acute on chronic hypoxic respiratory failure in the setting of pneumonia as well as hypokalemia and hypom agnesia. Was not discharged home on any antibiotics. Was not discharged home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 pulmonary embolism. 2. Patchy consolidations and ground-glass opacities, greatest within the left lung. Findings are most compatible with pneumonitis/pneumonia, however pulmonary neoplasm can not be excluded. Follow-up CT chest in 4-6 weeks is recommended to evaluate for resolution. 3. Nodular contour of the liver, which may represent fibrosis/cirrhosis. - Findings discussed with patient. 3. Acute metabolic encephalopathy ? Secondary to pneumonia treating underlying etiology tachycardia 03/22/2025; patient back to baseline 4. Hypokalemia -Corrected per protocol, repeat potassium levels ordered in a.m. for response totherapy ? Patient potassium still remains low additional potassium given 5. Anemia ? Secondary to chronic disorder. As part of patient's evaluation ordered iron studies stool guaiac ferritin B12 level.. With patient hemoglobin being less than 7 an order was given for patient to be transfused 1 unit PRBC. Subsequently monitoring H&H and transfuse if patient becomes symptomaticor hemoglobin falls below 7 ? 03/24/2025;Patient hemoglobin 9.0 this a.m. Given the fact that his stool guaiac came back positiveand her hemoglobin having dropped to 6.8 during her hospital stay consult was placed to GI for possible endoscopic evaluation prior to patient being ? 03/25/2025;Patient seen scheduled to undergo endoscopic evaluation as part of management of her significant anemia ? 03/25/2025; 2D echo performed by Dr. Bahena findings and recommendations as below - No gross lesions in the entire esophagus. - Two bleeding angiodysplastic lesions in the stomach. Treated with a heater probe. - Three bleeding angiodysplastic lesions in the duodenum. Treated with a heater probe. - No specimens collected. Recommendations : - Return patient to [facility] for ongoing care. - Advance diet as tolerated. - Continue present medications. - No NSAIDs for 6 weeks - Carafate 1 g p.o. twice daily x 8 weeks -Protonix 40 mg p.o. twice daily x 8 weeks - Outpatient capsule endoscopy and colonoscopy to look for other angiodysplastic lesions 6. COPD with acute exacerbation Secondary to above patient was started on bronchodilator treatment systemic steroid as well as antibiotics as discussed above. Placed on supplemental oxygen titrated to keep saturation greater than 90 ? 03/22/2025; patient still remains dyspneic at rest ? 03/25/2025; patient breathing status improved 7. Chronic hypoxic respiratory failure Secondary to COPD patient is on baseline oxygen 3 L continuous 8. Tobacco dependence ? Counseled on cessation, patient has allergy to nicotine nicotine patch was therefore not ordered 9. Hypertension ? Blood pressure controlled, home medications continued with dose adjustment as needed ? 03/23/2025; patient blood pressure was markedly elevated the day prior 188/82 adjusted medications and added hydralazine as needed for systolic blood pressuregreater than 160 10. Dyslipidemia ? Patient is on atorvastatin did continue 10. Seizure disorder ? Patient is on camazepam as well as Keppra did continue with home doses 12. Depression with anxiety ? Did continue with home meds 13.DVT prophylaxis ? On enoxaparin 14. Constipation ? Symptom management initiated Time spent in the patient's overall evaluation,decision-making process, review of diagnostic data, adjustment of management, discussion with other providers, nursing nursing and ancillary staff involved in patient's care documentation, 36Minutes Medications at Discharge Home Medications alprazolam 1 mg tablet (Xanax) 1 mg PO QHS PRN anxiety 07/30/20 amlodipine 10 mg tablet 10 mg PO DAILY blood pressure 07/30/20 atorvastatin 80 mg tablet 80 mg PO QHS cholesterol 07/30/20 ipratropium 0.5 mg-albuterol 3 mg (2.5 mg base)/3 mL nebulization soln 3 ml inhalation Q6H PRN shortnes of breath 07/30/20 levetiracetam 500 mg tablet (Keppra) 1,000 mg PO BID seizure 07/30/20 albuterol sulfate 90 mcg/actuation aerosol inhaler (Proventil HFA) 2 puff inhalation Q6H PRN COPD 06/17/21 lisinopril 10 mg tablet 20 mg PO BID blood pressure 06/17/21 carbamazepine 200 mg tablet,extended release,12 hr 400 mg PO BID 03/23/24 duloxetine 30 mg capsule,delayed release 30 mg PO QHS 03/23/24 ondansetron HCl 4 mg tablet 4 mg PO BID PRN nausea/vomiting 03/23/24 multivitamin (Daily Multi-Vitamin tablet) 1 tab PO DAILY #30 tabs 03/26/24 calcium carb-ergocalciferol (vit D2) 250 mg (625 mg)-125 unit tablet 1 tab PO DAILY 04/18/24 nystatin 100,000 unit/gram topical powder 1 applic topical TID 04/18/24 spironolactone 25 mg tablet 25 mg PO DAILY 04/18/24 buspirone 10 mg tablet 10 mg PO TID anxiety 03/20/25 duloxetine 60 mg capsule,delayed release 60 mg PO DAILY 03/20/25 ergocalciferol (vitamin D2) 1,250 mcg (50,000 unit) capsule 1,250 mcg PO QWEEK 03/20/25 perphenazine 4 mg tablet 4 mg PO DAILY 03/20/25 tramadol 50 mg tablet 50 mg PO BID PRN PRN severe pain 03/20/25 umeclidinium 62.5 mcg/actuation blister powder for inhalation (Incruse Ellipta) 1 inh inhalation DAILY 03/20/25 budesonide-formoterol HFA 160 mcg-4.5 mcg/actuation aerosol inhaler (Symbicort) 1 inh inhalation BID #10.2 grams 03/25/25 furosemide 20 mg tablet 20 mg PO BID #120 tabs 03/25/25 guaifenesin 600 mg tablet, extended release 12 hr (Mucinex) 1,200 mg (2 x 600 mg) PO BID #20 tabs 03/25/25 levofloxacin 750 mg tablet 750 mg PO DAILY #5 tabs 03/25/25 nystatin 100,000 unit/mL oral suspension 500,000 unit (5 mL) PO 4X/DAY 14 days #280 mL 03/25/25 pantoprazole 40 mg tablet,delayed release 40 mg PO BID 60 days #120 tabs 03/25/25 potassium chloride 20 mEq tablet,extended release(part/cryst) 20 meq PO DAILY #60 tabs 03/25/25 prednisone 20 mg tablet 20 mg PO BID #14 tabs 03/25/25 sennosides 8.6 mg-docusate sodium 50 mg tablet (Stimulant Laxative Plus) 1 tab PO BID #60 tabs 03/25/25 sucralfate 1 gram tablet (Carafate) 1 g PO BID 8 weeks #112 tabs 03/25/25 Physical Exam Narrative GENERAL: cooperative HEENT: Atraumatic; normocephalic EYES; Anicteric, Normal Conjunctiva NECK; supple, normal thyroid, RESPIRATORY: Diminished to auscultation CARDIOVASCULAR: Regular S1 S2, GI: soft, normoactive bowel sounds, : No Renal angle tenderness; EXTREMITIES: No edema, no clubbing, MUSCULOSKELETAL: no muscle wasting NEURO: Awake; no lateralizing signs. SKIN: No Rash PSYCH; Flat affect Weight / BMI Weight Weight: 71.6 kg Body Mass Index (BMI) 30.9 ABG / Lab / Microbiology Data 03/25/25 10:19 03/25/25 10:19 Laboratory: Laboratory Results - last 24 hr 03/25/25 10:19: WBC 11.3 H, RBC 4.28, Hgb 10.0 L, Hct 33.2 L, MCV 77.6 L, MCH 23.4 L, MCHC 30.1 L, RDW Std Deviation 58.6 H, RDW Coeff of Sanju 23.9 H, Plt Count 354, MPV 9.5, Differential Comment SCANNED, Sodium 137, Potassium 4.2, Chloride 96 L, Carbon Dioxide 29.4, Anion Gap 11, BUN 8, Creatinine 0.50 L, EstimCreat Clear Calc 103.02, Est GFR (MDRD) Non-Af 106, BUN/Creatinine Ratio 16.3, Glucose 120 H, Calcium 9.0, Phosphorus 3.3, Magnesium 1.5 Microbiology: Microbiology 03/21/25 00:38 Sputum, Expectorated/Coughed Gram Stain - Final 03/21/25 00:38 Sputum, Expectorated/Coughed Respiratory Culture - Final Presumptive C albicans 03/20/25 17:55 Urine, Clean Catch Urine Culture - Final Meth. resistant Staph. aureus Mixed Gram Positive Organisms 03/20/25 16:20 Blood Culture (Wb) - Right Wrist Blood Culture - Preliminary No growth in 48 hours. 03/20/25 17:45 Blood Culture (Wb) - Left Wrist Blood Culture - Preliminary No growth in 48 hours. 03/20/25 17:51 Urine, Random Legionella Antigen - Final 03/20/25 17:51 Urine, Random Streptococcus pneumoniae Antigen (M - Final Streptococcus pneumonia Ag 03/20/25 17:50 Mucosa - Nose SARS-CoV-2, Influenza & RSV (PCR) - Final D/C Instructions Discharge Diet: No restrictions Discharge Activity: Return to Normal Activity Call your doctor if you observe: Fever of 101 or Higher, Shortness of breath, Fainting spells and Chest pain DC O2, CPAP, BIPAP Needs Home O2 Discharge instructions: Yes Type of respiratory needs?: Oxygen Oxygen frequency: ContinuousContinuous oxygen liters per minute: 3 DC home with Oxygen: Yes Home O2 MD Review: I have reviewed the oxygen testing, and the patient qualifies for home oxygen equipment and portability. The patient is mobile in the home and the community. Meaningful Use Info Meaningful Use Meaningful Use Diagnoses (Choose all that apply): None applicable Ischemic Stroke Statin Dosing Therapy Reference: STATIN DOSE THERAPY REFERENCE: * Patients > 75 years receive moderate or high dose statin therapy. * Patients 75 years or YOUNGER should receive HIGH intensity statin dose unless contraindicated. You will be required to document reason for non-treatment if statin daily dose does not meet guidelines. HIGH DOSE STATIN THERAPY DAILY Atorvastatin > than or = to 40 mg Rosuvastatin > than or = to 20 mg Amlodipine + Atorvastatin > than or = to 2.5/40 mg Ezetimibe + Simvastatin 10/80 mg Simvastatin 80mg Discharge Plan Admission Admit Date/Time: 03/20/25 21:36 Attending Provider: Troy Akins Primary Care Provider: Geovani Gay Consulting Providers: Jose Douglas Discharge Orders/Prescriptions Prescriptions: New nystatin 100,000 unit/mL Suspension 500,000 unit PO 4X/DAY 14 Days Qty: 280 0RF sennosides-docusate sodium [Stimulant Laxative Plus] 8.6-50 mg Tablet 1 tab PO BID Qty: 60 0RF potassium chloride 20 mEq Tablet,Er Particles/Crystals 20 meq PO DAILY Qty: 60 0RF pantoprazole 40 mg Tablet,Delayed Release (Dr/Ec) 40 mg PO BID 60 Days Qty: 120 0RF levofloxacin 750 mg tablet 750 mg PO DAILY Qty: 5 0RF prednisone 20 mg tablet 20 mg PO BID Qty: 14 0RF guaifenesin [Mucinex] 600 mg tablet extended release 12hr 1,200 mg PO BID Qty: 20 0RF sucralfate [Carafate] 1 gram tablet 1 g PO BID 56 Days Qty: 112 0RF budesonide-formoterol [Symbicort] 160-4.5 mcg/actuation HFA aerosol inhaler 1 inh inhalation BID Qty: 10.2 0RF Continued albuterol sulfate [Proventil HFA] 90 mcg/actuation HFA aerosol inhaler 2 puff inhalation Q6H PRN (Reason: COPD) atorvastatin 80 mg tablet 80 mg PO QHS ipratropium-albuterol 3 ML solution for nebulization 3 ml inhalation Q6H PRN (Reason: shortnes of breath) levetiracetam [Keppra] 500 MG tablet 1,000 mg PO BID amlodipine 10 MG tablet 10 mg PO DAILY alprazolam [Xanax] 1 MG tablet 1 mg PO QHS PRN (Reason: anxiety ) lisinopril 10 mg tablet 20 mg PO BID ondansetron HCl 4 mg tablet 4 mg PO BID PRN (Reason: nausea/vomiting) carbamazepine 200 mg tablet extended release 12 hr 400 mg PO BID duloxetine 30 mg capsule,delayed release(DR/EC) 30 mg PO QHS multivitamin [Daily Multi-Vitamin] Tablet 1 tab PO DAILY Qty: 30 0RF nystatin 100,000 unit/gram powder 1 applic topical TID spironolactone 25 mg tablet 25 mg PO DAILY calcium carbonate-vitamin D2 250 (625)-125 mg-unit tablet 1 tab PO DAILY buspirone 10 mg tablet 10 mg PO TID duloxetine 60 mg capsule,delayed release(DR/EC) 60 mg PO DAILY ergocalciferol (vitamin D2) 1,250 mcg (50,000 unit) capsule 1,250 mcg PO QWEEK tramadol 50 mg tablet 50 mg PO BID PRN PRN (Reason: severe pain) perphenazine 4 mg tablet 4 mg PO DAILY Incruse Ellipta 62.5 mcg/actuation blister with device 1 inh inhalation DAILY Changed furosemide 20 mg tablet 20 mg PO BID Qty: 120 0RF Discontinued omeprazole 40 MG capsule,delayed release(DR/EC) 40 mg PO BID Referrals / Follow Up: Geovani Gay MD [Primary Care Provider] - Within 2 Weeks Cal Bahena DO [Med Staff - Active Staff] - Within 1 Month Disposition Disposition (needs filled in before D/C Order can be placed): Home, Self Care Charges/Coding Visit Charges Inpatient E&M: 27287 Disch Hosp >30min 03/25/25 1704 Cosigner Signature (if applicable): CC: Dr. Geovani Gay MD; Dr. Troy Akins MD~ Signed [facility]06-03-2025 [facility] Medical Records Department [address] [place] [address] Discharge Summary 03/25/25 1652 MR#: [id number] Acct: [id number] Name: AISHA HA Rep #: [id number] : 1965 60 From: Troy Akins MD PCP: Dr. Geovani Gay MD Status:ADM IN Location: [facility] [id number] Providers Date of Admission: 03/20/25 Date of Discharge: 03/25/25 Primary Care Physician: Dr. Geovani Gay MD Consultations 03/24/25 08:28 Consult: Gastroenterology Routine Consulting Provider: [facility] Reason for Consult: Anemia with guaiac positive stools EMERGENT Consult: No MD Notified: Yes Date Notified: 03/24/25 Time Notified: 08:34 Method of Notification: Text Reason For Visit: PNEUMONIA Diagnosis Discharge Diagnosis (1) Nausea: Status: Acute Code(s): R11.0 - Nausea (2) Anemia: Status: Acute Code(s): D64.9 - Anemia, unspecified (3) Cirrhosis: Status: Acute Code(s): K74.60 - Unspecified cirrhosis of liver Plan Patient is a 60-year-old lady who presented with shortness of breath and progressive generalized weakness with some confusion. An assessment of acute metabolic encephalopathy as well as sepsis made admitted to a monitored bed for further management 1. Severe sepsis ??? Secondary to pneumococcal pneumonia. Patient had a source of infection on admission with elevated WBC count as well as evidence of endorgan dysfunction lactic acidosis. Treatment was initiated per protocol with IV fluid resuscitation broad-spectrum antibiotic therapy after cultures have been sent. Response to therapy monitored with serial lactic acid level ???03/22/2025 patient WBC count trending down ??? 03/23/2025; WBC count down to 9.0 2. Pneumonia - Secondary to streptococcal pneumonia, Strep pneumo Test Urine POSITIVE for pneumococcal pneumonia placed on Levaquin and placed on oxygen titrated to keep Pulse Ox greater than 90 ??? 03/23/2025; patient presents complaint of persistent cough and pleuritic chest pain ordered D-dimer if positive will proceed to obtain CTA of the chest ??? 03/24/2025; CT of the chest obtained on 03/23/2025 did demonstrate 1. No acute pulmonary embolism. 2. Patchy consolidations and ground-glass opacities, greatest within the left lung. Findings are most compatible with pneumonitis/pneumonia, however pulmonary neoplasm can not be excluded. Follow- up CT chest in 4-6 weeks is recommended to evaluate for resolution. 3. Nodular contour of the liver, which may represent fibrosis/cirrhosis. - Findings discussed with patient. 3. Acute metabolic encephalopathy ??? Secondary to pneumonia treating underlying etiology tachycardia 03/22/2025; patient back to baseline 4. Hypokalemia -Corrected per protocol, repeat potassium levels ordered in a.m. for response to therapy ??? Patient potassium still remains low additional potassium given 5. Anemia ??? Secondary to chronic disorder. As part of patient's evaluation ordered iron studies stool guaiac ferritin B12 level.. With patient hemoglobin being less than 7 an order was given for patient to be transfused 1 unit PRBC. Subsequently monitoring H H and transfuse if patient becomes symptomatic or hemoglobin falls below 7 ??? 03/24/2025;Patient hemoglobin 9.0 this a.m. Given the fact that his stool guaiac came back positive and her hemoglobin having dropped to 6.8 during her hospital stay consult was placed to GI for possible endoscopic evaluation prior to patient being ??? 03/25/2025;Patient seen scheduled to undergo endoscopic evaluation as part of management of her significant anemia ??? 03/25/2025; 2D echo performed by Dr. Bahena findings and recommendations as below - No gross lesions in the entire esophagus. - Two bleeding angiodysplastic lesions in the stomach. Treated with a heater probe. - Three bleeding angiodysplastic lesions in the duodenum. Treated with a heater probe. - No specimens collected. Recommendations : - [facility] care. - Advance diet as tolerated. - Continue present medications. - No NSAIDs for 6 weeks - Carafate 1 g p.o. twice daily x 8 weeks -Protonix 40 mg p.o. twice daily x 8 weeks - Outpatient capsule endoscopy and colonoscopy to look for other angiodysplastic lesions 6. COPD with acute exacerbation Secondary to above patient was started on bronchodilator treatment systemic steroid as well as antibiotics as discussed above. Placed on supplemental oxygen titrated to keep saturation greater than 90 ??? 03/22/2025; patient still remains dyspneic at rest ??? 03/25/2025; patient breathing status improved 7. Chronic hypoxic respiratory failure Secondary to COPD patient is on baseline oxygen 3 L continuous 8. Tobacco dependence ??? Counseled on cessation, patient has allergy to nicotine nicotine patch was therefore not ordered 9. Hypertension ??? Blood p (more content not included)...[facility]06-03-2025 Consult note [facility] Medical Records Department [address] [place] [address] Anesthesia Postop Eval I 03/25/25 1614 MR#: [id number] Acct: [id number] Name: AISHA HA Emma Rep #:[id number] : 1965 60 From: Jef LOJA PCP: Dr. Geovani Gay MD Status:ADM IN Y Race: C Location: [place] [address] 31 Anesthesia: Postop Eval I Current Vital Signs Temperature: 97 F Pulse Rate: 106 Blood Pressure: 132/107 Respiratory Rate: 22 Pulse Ox: 94 Oxygen Delivery Method: Nasal Cannula Oxygen Flow Rate (L/min): 2 Assessment Airway patent: Yes Spontaneous unlabored respirations: Yes Mental status: Awake and Calm nausea: No Vomiting: No Anesthesia Complication: No Fluid Hydration Crystalloid volume administer (ml): 300 Total IV fluid infused: 300 Progress Note Anesthesia document: Postop Eval 1 completed: Yes 03/25/25 1615 BENCH CHEMIST> Date _ Jef Herman CRNA Cosigner Signature: Date CC: ~ Signed [facility]06-03-2025 Procedure note [facility] Medical Records Department [address] [place] [address] EGD Report MR#: [id number] Acct: [id number] Name: AISHA HA Rep #:[id number] : 1965 60 From: Cal Bahena DO PCP: Dr. Geovani Gay MD Status:ADM IN Patient Name: Aisha Ha Procedure Date: 03/25/2025 3:46 PM Date of : 1965 Age: 60 Procedure: Upper GI endoscopy Indications: Iron deficiency anemia, Melena, Recent gastrointestinal bleeding, Suspected upper gastrointestinal bleeding Providers: Cal Bahena DO Medicines: Monitored Anesthesia Care Patient Profile: This is a 60 year old female. Refer to note in patient chart for documentation of history and physical. Patient has symptoms of acute dyspepsia and acute nausea. Complications: No immediate complications. Procedure: Pre-Anesthesia Assessment: - Prior to the procedure, a History and Physical was performed, and patient medications and allergies were reviewed. The patient is competent. The risks and benefits of the procedure and the sedation options and risks were discussed with the patient. All questions were answered and informed consent was obtained. Patient identification and proposed procedure were verified by the physician in the pre-procedure area. Mental Status Examination: alert and oriented. Airway Examination: normal oropharyngeal airway and neck mobility. Respiratory Examination: clear to auscultation. CV Examination: normal. ASA Grade Assessment: II - A patient with mild systemic disease. After reviewing the risks and benefits, the patient was deemed in satisfactory condition to undergo the procedure. The anesthesia plan was to use monitored anesthesia care (MAC). Immediately prior to administration of medications, the patient was re-assessed for adequacy to receive sedatives. The heart rate, respiratory rate, oxygen saturations, blood pressure, adequacy of pulmonary ventilation, and response to care were monitored throughout the procedure. The physical status of the patient was re-assessed after the procedure. After obtaining informed consent, the endoscope was passed under direct vision. Throughout the procedure, the patient's blood pressure, pulse, and oxygen saturations were monitored continuously. The gastroscope was introduced through the mouth, and advanced to the fourth part of the duodenum. Small bowel enteroscopy was deemed necessary. The upper GI endoscopy was accomplished without difficulty. The patient tolerated the procedure well. Scope In: 4:00:28 PM Scope Out: 4:06:13 PM Total Procedure Duration Time 0 hours 5 minutes 45 seconds Findings: No gross lesions were noted in the entire esophagus. Two 5 mm angiodysplastic lesions with bleeding were found on the lesser curvature of the stomach. Coagulation for hemostasis using heater probe was successful. Estimated blood loss was minimal. Three 5 mm angiodysplastic lesions with bleeding were found in the third portion of the duodenum. Coagulation for bleeding prevention using heater probe was successful. Estimated blood loss was minimal. Impression: - No gross lesions in the entire esophagus. - Two bleeding angiodysplastic lesions in the stomach. Treated with a heater probe. - Three bleeding angiodysplastic lesions in the duodenum. Treated with a heater probe. - No specimens collected. Recommendation: - Return patient to [facility] for ongoing care. - Advance diet as tolerated. - Continue present medications. - No NSAIDs for 6 weeks - Carafate 1 g p.o. twice daily x 8 weeks -Protonix 40 mg p.o. twice daily x 8 weeks - Outpatient capsule endoscopy and colonoscopy to look for other angiodysplastic lesions Procedure Code(s): --- Professional --- 43936, Small intestinal endoscopy, enteroscopy beyond second portion of duodenum, not including ileum; with control of bleeding (eg, injection, bipolar cautery, unipolar cautery, laser, heater probe, stapler, plasma fisher mussel) CPT copyright 2021 [employer]. All rights reserved. The codes documented in this report are preliminary and upon medical coding instructor review may be revised to meet current compliance requirements. Cal Bahena DO 03/25/2025 4:12:45 PM This report has been signed electronically. Number of Addenda: 0 Note Initiated On: 03/25/2025 3:46 PM 03/25/25 1612 Date _ Cal Bahena DO Cosigner Signature: Date (if indicated) CC: Dr. Geovani Gay MD; Cal Bahena DO ~ Date Dictated: 03/25/25 1546 Date Transcribed: Computer Peripheral Equipment Operator: RF Signed [facility]06-03-2025 Procedure note [facility] Medical Records Department [address] [place] [address] Operative Report - CC Letter MR#: [id number] Acct: [id number] Name: AISHA HA Rep #:[id number] : 1965 60 From: Cal Bahena DO PCP: Dr. Geovani Gay MD Status:ADM IN 03/25/2025 Geovani Gay Re : Upper GI endoscopy procedure for Aisha Ha Dear Victor Hugo This procedure was performed on Tuesday, March 25, 2025. My impressions and recommendations are as follows: Impressions : - No gross lesions in the entire esophagus. - Two bleeding angiodysplastic lesions in the stomach. Treated with a heater probe. - Three bleeding angiodysplastic lesions in the duodenum. Treated with a heater probe. - No specimens collected. Recommendations : - [facility] patient to [facility] for ongoing care. - Advance diet as tolerated. - Continue present medications. - No NSAIDs for 6 weeks - Carafate 1 g p.o. twice daily x 8 weeks -Protonix 40 mg p.o. twice daily x 8 weeks - Outpatient capsule endoscopy and colonoscopy to look for other angiodysplastic lesions My findings are described in the full procedure note, which is enclosed. If I can be of further assistance, please feel free to contact me at . Sincerely, Cal Bahena DO 03/25/2025 4:12:45 PM This report has been signed electronically. 03/25/25 1612 Date _ Cal Bahena DO Cosigner Signature: Date (if indicated) CC: Dr. Geovani Gay MD; Dr. Troy Akins MD; Dr. Jose Douglas MD ~ Date Dictated: 03/25/25 1546 Date Transcribed: Computer Peripheral Equipment Operator: RF Signed [facility]06-03-2025 Progress note [facility] Medical Records Department [address] [place] [address] Progress Note 03/25/25 1516 MR#: [id number] Acct: [id number] Name: AISHA HA Rep #:[id number] : 1965 60 From: Cal Bahena DO PCP: Dr. Geovani Gay MD Status:ADM IN Location: [place] [address] Progress Note Patient's hemoglobin is up to 10.0. She denies any abdominal pain, cramping butstill complains of some mild nausea Physical Exam Const alert, oriented x3, no apparent distress and healthy appearing General Appearance: cooperative GI normal to inspection, nondistended, normoactive bowel sounds, soft to palpation,non-tender and non-distended Percussion: normal to percussion Rectal Exam: deferred Assessment & Plan Assessment/Plan (1) Nausea: (2) Anemia: (3) Cirrhosis: PLAN: - 60year-old with history of alcoholic cirrhosis complicated by intermittent ascites, encephalopathy presents with worsening anemia and shortness of breath. She should undergo an upper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 hemoglobin having dropped to 6.8 during her hospital stay consult was placed to GI for possible endoscopic evaluation prior to patient being 6. COPD with acute exacerbation Secondary to above patient was started on bronchodilator treatment systemic steroid as well as antibiotics as discussed above. Placed on supplemental oxygen titrated to keep saturation greater than 90 ? 03/22/2025; patient still remains dyspneic at rest 7. Chronic hypoxic respiratory failure Secondary to COPD patient is on baseline oxygen 3 L continuous 8. Tobacco dependence ? Counseled on cessation, patient has allergy to nicotine nicotine patch was therefore not ordered 9. Hypertension ? Blood pressure controlled, home medications continued with dose adjustment as needed ? 03/23/2025; patient blood pressure was markedly elevated the day prior 188/82 adjusted medications and added hydralazine as needed for systolic blood pressuregreater than 160 10. Dyslipidemia ? Patient is on atorvastatin did continue 10. Seizure disorder ? Patient is on camazepam as well as Keppra did continue with home doses 12. Depression with anxiety ? Did continue with home meds 13.DVT prophylaxis ? On enoxaparin 14. Constipation ? Symptom management initiated Charges/Coding Visit Charges Inpatient E&M: 91064 Subs Hosp L2 03/24/25 0937 <Electronically signed by Troy Akins MD> Cosigner Signature (if applicable): CC: ~ Signed [facility] Work Phone: 1(476) 448-553806-02-2025 Progress note [facility] Medical Records Department [address] [place] [address] Progress Note - Hospitalist 03/24/25828 MR#: [id number] Acct: [id number] Name: AISHA HA Rep #:[id number] : 1965 60 From: Troy Akins MD PCP: Dr. Geovani Gay MD Status:ADM IN Location: [place] [address] Reason for Visit Reason for Visit: Diagnoses Hypomagnesemia (03/20/25) Hypokalemia (03/20/25) Pneumonia, unspecified organism (03/20/25) Subjective Subjective Patient hemoglobin 9.0 this a.m. Given the fact that his stool guaiac came backpositive and her hemoglobin having dropped to 6.8 during her hospital stay consult was placed to GI for possible endoscopic evaluation prior to patient being Objective Data Objective Data Vital Signs: Vital Signs Temp Pulse Resp BP Pulse Ox O2 Del Method O2 Flow Rate 98 F 90 16 170/77 H 96 Nasal Cannula 3 03/24/25 03:15 03/24/25 04:22 03/24/25 03:15 03/24/25 04:22 03/24/25 03:15 03/24/25 03:15 03/24/25 03:15 Oxygen Flow Rate (L/min) 3 Oxygen Delivery Method Nasal Cannula Weight: 71.6 kg Body Mass Index (BMI) 30.8 Intake & Output: Intake and Output for Last 24 Hours 03/22/25 03/23/25 03/24/25 23:59 23:59 23:59 Intake Total 4146.67 / 4146.67 1350 / 1450 220 / 220 Balance 4146.67 / 4146.67 1350 / 1450 220 / 220 Lab / Micro Data 03/24/25 04:58 03/24/25 04:58 Labs: Laboratory Results - last 24 hr 03/23/25 09:10: D-Dimer Quant (PE/DVT) 2.69 H* 03/24/25 04:58: WBC 10.5, RBC 3.90 L, Hgb 9.0 L, Hct 30.5 L, MCV 78.2 L, MCH 23.1 L, MCHC 29.5 L, RDW Std Deviation 58.3 H, RDW Coeff of Sanju 22.3 H, Plt Count 283, MPV 10.1, Immature Gran % (Auto) 0.800, Neut % (Auto) 69.6, Lymph % (Auto) 22.9, [place] % (Auto) 6.5, Eos % (Auto) 0.1, Baso % (Auto) 0.1, Absolute Neuts (auto) 7.3, Absolute Lymphs (auto) 2.41, Nucleated RBC % 0.2, DifferentialComment SCANNED, Platelet Estimate ADEQUATE, Polychromasia 1+, Hypochromasia 1+,Anisocytosis 2+, Microcytosis1+, Target Cells 1+, Tear Drop Cells RARE, Ovalocytes 1+, Schistocytes RARE, Sodium 138, Potassium 4.3, Chloride 97 L, Carbon Dioxide 30.1, Anion Gap 11, BUN 7, Creatinine 0.46 L, Estim Creat Clear Calc 111.98, Est GFR (MDRD) Non-Af 108, BUN/Creatinine Ratio 16.0, Glucose 100 H, Calcium 9.0 Micro: Microbiology 03/21/25 00:38 Sputum, Expectorated/Coughed Gram Stain - Final 03/21/25 00:38 Sputum, Expectorated/Coughed Respiratory Culture - Final Presumptive C albicans 03/20/25 17:55 Urine, Clean Catch Urine Culture - Final Meth. resistant Staph. aureus Mixed Gram Positive Organisms 03/20/25 16:20 Blood Culture (Wb) - Right Wrist Blood Culture - Preliminary No growth in 48 hours. 03/20/25 17:45 Blood Culture (Wb) - Left Wrist Blood Culture - Preliminary No growth in 48 hours. 03/20/25 17:51 Urine, Random Legionella Antigen - Final 03/20/25 17:51 Urine, Random Streptococcus pneumoniae Antigen (M - Final Streptococcus pneumonia Ag 03/20/25 17:50 Mucosa - Nose SARS-CoV-2, Influenza & RSV (PCR) - Final Radiography Diagnostic Testing: Radiology Impression Chest CTA 03/23/25 09:50 IMPRESSION: 1. No acute pulmonary embolism. 2. Patchy consolidations and ground-glass opacities, greatest within the left lung. Findings are most compatible with pneumonitis/pneumonia, however pulmonary neoplasm can not be excluded. Follow-up CT chest in 4-6 weeks is recommended to evaluate for resolution. 3. Nodular contour of the liver, which may represent fibrosis/cirrhosis. Reading Location: [facility] Physical Exam Narrative GENERAL: cooperative HEENT: Atraumatic; normocephalic EYES; Anicteric, Normal Conjunctiva NECK; supple, normal thyroid, RESPIRATORY: Diminished to auscultation with bilateral wheezes CARDIOVASCULAR: Regular S1 S2, GI: soft, normoactive bowel sounds, : No Renal angle tenderness; EXTREMITIES: No edema, no clubbing, MUSCULOSKELETAL: no muscle wasting NEURO: Awake; no lateralizing signs. SKIN: No Rash PSYCH; Flat affect Assessment & Plan Assessment/Plan (1) Pneumonia: (2) Hypomagnesemia: (3) Hypokalemia: PLAN: Plan Patient is a 60-year-old lady who presented with shortness of breath and progressive generalized weakness with some confusion. An assessment of acute metabolic encephalopathy as well as sepsis made admitted to a monitored bed for further management 1. Severe sepsis ? Secondary to pneumococcal pneumonia. Patient had a source of infection on admission with elevatedWBC count as well as evidence of endorgan dysfunction lactic acidosis. Treatment was initiated per protocol with IV fluid resuscitation broad-spectrum antibiotic therapy after cultures have been sent. Response to therapy monitored with serial lactic acid level ?03/22/2025 patient WBC count trending down ? 03/23/2025; WBC count down to 9.0 2. Pneumonia - Secondary to streptococcal pneumonia, Strep pneumo Test Urine POSITIVE for pneumococcal pneumoniaplaced on Levaquin and placed on oxygen titrated to keepPulse Ox greater than 90 ? 03/23/2025; patient presents complaint of persistent cough and pleuritic chest pain ordered D-dimerif positive will proceed to obtain CTA of the chest ? 03/24/2025; CT of the chest obtained on 03/23/2025 did demonstrate 1. No acute pulmonary embolism. 2. Patchy consolidations and ground-glass opacities, greatest within the left lung. Findings are most compatible with pneumonitis/pneumonia, however pulmonary neoplasm can not be excluded. Follow-up CT chest in 4-6 weeks is recommended to evaluate for resolution. 3. Nodular contour of the liver, which may represent fibrosis/cirrhosis. - Findings discussed with patient. 3. Acute metabolic encephalopathy ? Secondary to pneumonia treating underlying etiology tachycardia 03/22/2025; patient back to baseline 4. Hypokalemia -Corrected per protocol, repeat potassium levels ordered in a.m. for response totherapy ? Patient potassium still remains low additional potassium given 5. Anemia ? Secondary to chronic disorder. As part of patient's evaluation ordered iron studies stool guaiac ferritin B12 level.. With patient hemoglobin being less than 7 an order was given for patient to be transfused 1 unit PRBC. Subsequently monitoring H&H and transfuse if patient becomes symptomaticor hemoglobin falls below 7 ? 03/24/2025;Patient hemoglobin 9.0 this a.m. Given the fact that his stool guaiac came back positiveand her hemoglobin having dropped to 6.8 during her hospital stay consult was placed to GI for possible endoscopic evaluation prior to patient being 6. COPD with acute exacerbation Secondary to above patient was started on bronchodilator treatment systemic steroid as well as antibiotics as discussed above. Placed on supplemental oxygen titrated to keep saturation greater than 90 ? 03/22/2025; patient still remains dyspneic at rest 7. Chronic hypoxic respiratory failure Secondary to COPD patient is on baseline oxygen 3 L continuous 8. Tobacco dependence ? Counseled on cessation, patient has allergy to nicotine nicotine patch was therefore not ordered 9. Hypertension ? Blood pressure controlled, home medications continued with dose adjustment as needed ? 03/23/2025; patient blood pressure was markedly elevated the day prior 188/82 adjusted medications and added hydralazine as needed for systolic blood pressuregreater than 160 10. Dyslipidemia ? Patient is on atorvastatin did continue 10. Seizure disorder ? Patient is on camazepam as well as Keppra did continue with home doses 12. Depression with anxiety ? Did continue with home meds 13.DVT prophylaxis ? On enoxaparin 14. Constipation ? Symptom management initiated Charges/Coding Visit Charges Inpatient E&M: 70145 Subs Hosp L2 03/24/25 0937 Cosigner Signature (if applicable): CC: ~ Signed [facility]06-01-2025 Radiology Diagnostic study note [facility] Imaging Services [address] [place], [place] [address] CTA Chest W/WO Contrast MR#: [id number] Acct: [id number] Name: AISHA HA Rep #: [id number] : 1965 F 60 From: Radha Cabral MD PCP: Dr. Geovani Gay MD Status: ADM IN Study:CTA Chest W/WO Contrast Date of Exam: 03/23/25 Exam# [id number] Ordering Dr: Clarisa Akins MD PROCEDURE: CTA CHEST W/WO CONTRAST 03/23/2025 REASON FOR EXAM: ELEVATED D DIMER TECHNIQUE: CTA axial imaging of the chest with intravenous contrast. Coronal and Sagittal reconstruction series were provided. 3D, 3D post processing, 3D reconstructions, Maximum intensity projection (MIPs) Volume rendering and Shaded surface rendering was provided. PATIENT PREPARATION: Per protocol CONTRAST: Isovue 370 VOLUME: 100mL One or more dose reduction techniques were used (e.g., Automated exposure control, adjustment of the mA and/or kV according to patient size, use of iterative reconstruction technique). RADIATION DOSE SUMMARY: CTDlvol: 40 mGy DLP: 400 mGycm COMPARISON: Chest radiograph 03/20/2025. FINDINGS: Hardware: None. Lymph nodes: Mediastinal nodes, likely reactive. Heart: The heart is normal in size without pericardial effusion. Severe coronary artery and moderate thoracic aortic calcifications. The great vessels are normal in caliber. Pulmonary Vessels: No central filling defect within the segmental or subsegmental pulmonary arteries. Lungs and Airways: The central airways are patent. Small patchy consolidations and ground-glass opacities throughout the superior left lower lobe and left hilar region. Additional patchy ground-glass opacities throughoutthe right lung. Mild emphysema and scattered areas of scarring. Trace left pleural effusion. No pneumothorax. Upper Abdomen: Nodular contour of the liver. Bones: Prior ACDF and partially visualized spinal fixation of the lumbar spine. Cervical and thoracic spondylosis. CT/CTA Chest W/WO Contrast IMPRESSION: 1. No acute pulmonary embolism. 2. Patchy consolidations and ground-glass opacities, greatest within the left lung. Findings are most compatible with pneumonitis/pneumonia, however pulmonary neoplasm can not be excluded. Follow-up CT chest in 4-6 weeks is recommended to evaluate for resolution. 3. Nodular contour of the liver, which may represent fibrosis/cirrhosis. Reading Location: [facility] CC: Dr. Geovani Gay MD; Dr. Troy Akins MD ~ Computer Peripheral Equipment Operator: Signed [facility]06-01-2025 Progress note Author Troy Akins [facility] Note Date/Time March 23, 2025 8:51a m [facility] Medical Records Department [address] [place] [address] Progress Note - Hospitalist 03/23/25 0735 MR#: [id number] Acct: [id number] Name: AISHA HA Rep #:[id number] : 1965 60 From: Troy Akins MD PCP: Dr. Geovani Gay MD Status:ADM IN Location: [place] [address] Reason for Visit Reason for Visit: Diagnoses Hypomagnesemia (03/20/25) Hypokalemia (03/20/25) Pneumonia, unspecified organism (03/20/25) Subjective Subjective Patient seen complains of pleuritic chest pain. Order D-dimer if positive will proceed to obtain CTA of the chest.. Patient had markedly elevated blood pressure the day prior adjusted medications. Objective Data Objective Data Vital Signs: Vital Signs Temp Pulse Resp BP Pulse Ox O2 Del Method O2 Flow Rate 97.4 F L 92 23 H 148/116 H 96 Nasal Cannula 2.5 03/23/25 03:22 03/23/25 06:43 03/23/25 06:43 03/23/25 03:22 03/23/25 06:43 03/23/25 06:43 03/23/25 06:43 Oxygen Flow Rate (L/min) 2.5 Oxygen Delivery Method Nasal Cannula Weight: 71.6 kg Body Mass Index (BMI) 30.8 Intake & Output: Intake and Output for Last 24 Hours 03/21/25 03/22/25 03/23/25 23:59 23:59 23:59 Intake Total 4420.34 / 4420.34 4146.67 / 4146.67 Output Total 300 / 300 Balance 4120.34 / 4120.34 4146.67 / 4146.67 Lab / Micro Data 03/23/25 04:41 03/23/25 04:41 Labs: Laboratory Results - last 24 hr 03/23/25 04:41: WBC 9.0, RBC 3.50 L, Hgb 8.0 L, Hct 26.9 L, MCV 76.9 L, MCH 22.9L, MCHC 29.7 L, RDW Std Deviation 56.1 H, RDW Coeff of Sanju 21.0 H, Plt Count 245, MPV 10.4, Immature Gran % (Auto) 0.800, Neut % (Auto) 69.2, Lymph % (Auto) 23.0, [place] % (Auto) 6.8, Eos % (Auto) 0.1, Baso % (Auto) 0.1, Absolute Neuts (auto) 6.3, Absolute Lymphs (auto) 2.08, Nucleated RBC % 0.4, Differential Comment SCANNED, Polychromasia RARE, Anisocytosis 2+, Microcytosis 2+, Sodium 140, Potassium 3.8, Chloride 100, Carbon Dioxide 30.0, Anion Gap 11, BUN 4, Creatinine 0.40 L, Estim Creat Clear Calc 128.78, Est GFR (MDRD) Non-Af 112, BUN/Creatinine Ratio 10.7, Glucose 108 H, Calcium 8.8 Micro: Microbiology 03/20/25 17:55 Urine, Clean Catch Urine Culture - Preliminary Staphylococcus aureus Mixed Gram Positive Organisms 03/20/25 17:51 Urine, Random Legionella Antigen - Final 03/20/25 17:51 Urine, Random Streptococcus pneumoniae Antigen (M - Final Streptococcus pneumonia Ag 03/21/25 00:38 Sputum, Expectorated/Coughed Gram Stain - Final 03/20/25 17:50 Mucosa - Nose SARS-CoV-2, Influenza & RSV (PCR) - Final Physical Exam Narrative GENERAL: cooperative HEENT: Atraumatic; normocephalic EYES; Anicteric, Normal Conjunctiva NECK; supple, normal thyroid, RESPIRATORY: Diminished to auscultation with bilateral wheezes CARDIOVASCULAR: Regular S1 S2, GI: soft, normoactive bowel sounds, : No Renal angle tenderness; EXTREMITIES: No edema, no clubbing, MUSCULOSKELETAL: no muscle wasting NEURO: Awake; no lateralizing signs. SKIN: No Rash PSYCH; Flat affect Assessment & Plan Assessment/Plan (1) Pneumonia: (2) Hypomagnesemia: (3) Hypokalemia: PLAN: Plan Patient is a 60-year-old lady who presented with shortness of breath and progressive generalized weakness with some confusion. An assessment of acute metabolic encephalopathy as well as sepsis made admitted to a monitored bed for further management 1. Severe sepsis ? Secondary to pneumococcal pneumonia. Patient had a source of infection on admission with elevated WBC count as well as evidence of endorgan dysfunction lactic acidosis. Treatment was initiated per protocol with IV fluid resuscitation broad-spectrum antibiotic therapy after cultures have been sent. Response to therapy monitored with serial lactic acid level ?03/22/2025 patient WBC count trending down ? 03/23/2025; WBC count down to 9.0 2. Pneumonia - Secondary to streptococcal pneumonia, Strep pneumo Test Urine POSITIVE for pneumococcal pneumonia placed on Levaquin and placed on oxygen titrated to keepPulse Ox greater than 90 ? 03/23/2025; patient presents complaint of persistent cough and pleuritic chest pain ordered D-dimer if positive will proceed to obtain CTA of the chest 3. Acute metabolic encephalopathy ? Secondary to pneumonia treating underlying etiology tachycardia 03/22/2025; patient back to baseline 4. Hypokalemia -Corrected per protocol, repeat potassium levels ordered in a.m. for response totherapy ? Patient potassium still remains low additional potassium given 5. Anemia ? Secondary to chronic disorder. As part of patient's evaluation ordered iron studies stool guaiac ferritin B12 level.. With patient hemoglobin being less than 7 an order was given for patient to be transfused 1 unit PRBC. Subsequently monitoring H&H and transfuse if patient becomes symptomatic or hemoglobin falls below 7 6. COPD with acute exacerbation Secondary to above patient was started on bronchodilator treatment systemic steroid as well as antibiotics as discussed above. Placed on supplemental oxygen titrated to keep saturation greater than 90 ? 03/22/2025; patient still remains dyspneic at rest 7. Chronic hypoxic respiratory failure Secondary to COPD patient is on baseline oxygen 3 L continuous 8. Tobacco dependence ? Counseled on cessation, patient has allergy to nicotine nicotine patch was therefore not ordered 9. Hypertension ? Blood pressure controlled, home medications continued with dose adjustment as needed ? 03/23/2025; patient blood pressure was markedly elevated the day prior 188/82 adjusted medications and added hydralazine as needed for systolic blood pressuregreater than 160 10. Dyslipidemia ? Patient is on atorvastatin did continue 10. Seizure disorder ? Patient is on camazepam as well as Keppra did continue with home doses 12. Depression with anxiety ? Did continue with home meds 13.DVT prophylaxis ? On enoxaparin 14. Constipation ? Symptom management initiated Charges/Coding Visit Charges Inpatient E&M: 49768 Subs Hosp L2 03/23/25 0851 <Electronically signed by Troy Akins MD> Cosigner Signature (if applicable): CC: ~ Signed [facility] Work Phone: 1(406) 690-602606-01-2025 Progress note [facility] Medical Records Department [address] [place] [address] Progress Note - Hospitalist 03/23/25 0735 MR#: [id number] Acct: [id number] Name: AISHA HA Rep #:[id number] : 1965 60 From: Troy Akins MD PCP: Dr. Geovani Gay MD Status:ADM IN Location: [place] [address] Reason for Visit Reason for Visit: Diagnoses Hypomagnesemia (03/20/25) Hypokalemia (03/20/25) Pneumonia, unspecified organism (03/20/25) Subjective Subjective Patient seen complains of pleuritic chest pain. Order D-dimer if positive will proceed to obtain CTA of the chest.. Patient had markedly elevated blood pressure the day prior adjusted medications. Objective Data Objective Data Vital Signs: Vital Signs Temp Pulse Resp BP Pulse Ox O2 Del Method O2 Flow Rate 97.4 F L 92 23 H 148/116 H 96 Nasal Cannula 2.5 03/23/25 03:22 03/23/25 06:43 03/23/25 06:43 03/23/25 03:22 03/23/25 06:43 03/23/25 06:43 03/23/25 06:43 Oxygen Flow Rate (L/min) 2.5 Oxygen Delivery Method Nasal Cannula Weight: 71.6 kg Body Mass Index (BMI) 30.8 Intake & Output: Intake and Output for Last 24 Hours 03/21/25 03/22/25 03/23/25 23:59 23:59 23:59 Intake Total 4420.34 / 4420.34 4146.67 / 4146.67 Output Total 300 / 300 Balance 4120.34 / 4120.34 4146.67 / 4146.67 Lab / Micro Data 03/23/25 04:41 03/23/25 04:41 Labs: Laboratory Results - last 24 hr 03/23/25 04:41: WBC 9.0, RBC 3.50 L, Hgb 8.0 L, Hct 26.9 L, MCV 76.9 L, MCH 22.9L, MCHC 29.7 L, RDWStd Deviation 56.1 H, RDW Coeff of Sanju 21.0 H, Plt Count 245, MPV 10.4, Immature Gran % (Auto) 0.800, Neut % (Auto) 69.2, Lymph % (Auto) 23.0, [place] % (Auto) 6.8, Eos % (Auto) 0.1, Baso % (Auto) 0.1, Absolute Neuts (auto) 6.3, Absolute Lymphs (auto) 2.08, Nucleated RBC % 0.4, Differential Comment SCANNED, Polychromasia RARE, Anisocytosis 2+, Microcytosis 2+, Sodium 140, Potassium 3.8, Chloride 100, Carbon Dioxide 30.0, Anion Gap 11, BUN 4, Creatinine 0.40 L, Estim Creat Clear Calc 128.78, Est GFR (MDRD) Non-Af 112, BUN/Creatinine Ratio 10.7, Glucose 108 H, Calcium 8.8 Micro: Microbiology 03/20/25 17:55 Urine, Clean Catch Urine Culture - Preliminary Staphylococcus aureus Mixed Gram Positive Organisms 03/20/25 17:51 Urine, Random Legionella Antigen - Final 03/20/25 17:51 Urine, Random Streptococcus pneumoniae Antigen (M - Final Streptococcus pneumonia Ag 03/21/25 00:38 Sputum, Expectorated/Coughed Gram Stain - Final 03/20/25 17:50 Mucosa - Nose SARS-CoV-2, Influenza & RSV (PCR) - Final Physical Exam Narrative GENERAL: cooperative HEENT: Atraumatic; normocephalic EYES; Anicteric, Normal Conjunctiva NECK; supple, normal thyroid, RESPIRATORY: Diminished to auscultation with bilateral wheezes CARDIOVASCULAR: Regular S1 S2, GI: soft, normoactive bowel sounds, : No Renal angle tenderness; EXTREMITIES: No edema, no clubbing, MUSCULOSKELETAL: no muscle wasting NEURO: Awake; no lateralizing signs. SKIN: No Rash PSYCH; Flat affect Assessment & Plan Assessment/Plan (1) Pneumonia: (2) Hypomagnesemia: (3) Hypokalemia: PLAN: Plan Patient is a 60-year-old lady who presented with shortness of breath and progressive generalized weakness with some confusion. An assessment of acute metabolic encephalopathy as well as sepsis made admitted to a monitored bed for further management 1. Severe sepsis ? Secondary to pneumococcal pneumonia. Patient had a source of infection on admission with elevatedWBC count as well as evidence of endorgan dysfunction lactic acidosis. Treatment was initiated per protocol with IV fluid resuscitation broad-spectrum antibiotic therapy after cultures have been sent. Response to therapy monitored with serial lactic acid level ?03/22/2025 patient WBC count trending down ? 03/23/2025; WBC count down to 9.0 2. Pneumonia - Secondary to streptococcal pneumonia, Strep pneumo Test Urine POSITIVE for pneumococcal pneumoniaplaced on Levaquin and placed on oxygen titrated to keepPulse Ox greater than 90 ? 03/23/2025; patient presents complaint of persistent cough and pleuritic chest pain ordered D-dimerif positive will proceed to obtain CTA of the chest 3. Acute metabolic encephalopathy ? Secondary to pneumonia treating underlying etiology tachycardia 03/22/2025; patient back to baseline 4. Hypokalemia -Corrected per protocol, repeat potassium levels ordered in a.m. for response totherapy ? Patient potassium still remains low additional potassium given 5. Anemia ? Secondary to chronic disorder. As part of patient's evaluation ordered iron studies stool guaiac ferritin B12 level.. With patient hemoglobin being less than 7 an order was given for patient to be transfused 1 unit PRBC. Subsequently monitoring H&H and transfuse if patient becomes symptomaticor hemoglobin falls below 7 6. COPD with acute exacerbation Secondary to above patient was started on bronchodilator treatment systemic steroid as well as antibiotics as discussed above. Placed on supplemental oxygen titrated to keep saturation greater than 90 ? 03/22/2025; patient still remains dyspneic at rest 7. Chronic hypoxic respiratory failure Secondary to COPD patient is on baseline oxygen 3 L continuous 8. Tobacco dependence ? Counseled on cessation, patient has allergy to nicotine nicotine patch was therefore not ordered 9. Hypertension ? Blood pressure controlled, home medications continued with dose adjustment as needed ? 03/23/2025; patient blood pressure was markedly elevated the day prior 188/82 adjusted medications and added hydralazine as needed for systolic blood pressuregreater than 160 10. Dyslipidemia ? Patient is on atorvastatin did continue 10. Seizure disorder ? Patient is on camazepam as well as Keppra did continue with home doses 12. Depression with anxiety ? Did continue with home meds 13.DVT prophylaxis ? On enoxaparin 14. Constipation ? Symptom management initiated Charges/Coding Visit Charges Inpatient E&M: 37780 Subs Hosp L2 03/23/25 0851 Cosigner Signature (if applicable): CC: ~ Signed [facility]05-31-2025 Progress note Author Troy Akins [facility] Note Date/Time March 22, 2025 9:40a [facility] Medical Records Department [address] [place] [address] Progress Note - Hospitalist 03/22/25 0935 MR#: [id number] Acct: [id number] Name: AISHA HA Rep #:[id number] : 1965 60 From: Troy Akins MD PCP: Dr. Geovani Gay MD Status:ADM IN Location: [place] [address] Reason for Visit Reason for Visit: Diagnoses Hypomagnesemia (03/20/25) Hypokalemia (03/20/25) Pneumonia, unspecified organism (03/20/25) Subjective Subjective Patient seen WBC count trending down. Added systemic steroid to her treatment regimen the day prior. Objective Data Objective Data Vital Signs: Vital Signs Temp Pulse Resp BP Pulse Ox O2 Del Method O2 Flow Rate 97.9 F 99 20 H 169/63 H 96 Nasal Cannula 3 03/22/25 09:14 03/22/25 09:14 03/22/25 09:14 03/22/25 09:14 03/22/25 09:14 03/22/25 09:14 03/22/25 09:14 Oxygen Flow Rate (L/min) 3 Oxygen Delivery Method Nasal Cannula Weight: 71.6 kg Body Mass Index (BMI) 30.8 Intake & Output: Intake and Output for Last 24 Hours 03/20/25 03/21/25 03/22/25 23:59 23:59 23:59 Intake Total 350 / 350 4420.34 / 4420.34 601.67 / 601.67 Output Total 300 / 300 Balance 350 / 350 4120.34 / 4120.34 601.67 / 601.67 Lab / Micro Data 03/22/25 04:40 03/22/25 04:40 Labs: Laboratory Results - last 24 hr 03/21/25 13:02: Lactic Acid 2.5 H* 03/21/25 14:18: Blood Type B POSITIVE, Antibody Screen POSITIVE, Antibody Identification ANTI-M, Antigen Identification K ANTIGEN - NEGATIVE 03/21/25 14:18: Antigen Identification M ANTIGEN - NEGATIVE, Crossmatch See Detail 03/21/25 17:33: Lactic Acid 3.5 H* 03/22/25 04:40: WBC 11.1 H, RBC 3.44 L, Hgb 7.9 L, Hct 26.1 L, MCV 75.9 L D, MCH23.0 L, MCHC 30.3 L, RDW Std Deviation 54.6 H, RDW Coeff of Sanju 20.4 H, Plt Count 218, MPV 10.6, Immature Gran % (Auto) 0.500, Neut % (Auto) 76.1 H, Lymph %(Auto) 17.4 L, [place] % (Auto) 5.9, Eos % (Auto) 0.0, Baso % (Auto) 0.1, Absolute Neuts (auto) 8.4 H, Absolute Lymphs (auto) 1.93, Nucleated RBC % 0, DifferentialComment SCANNED, Polychromasia RARE, Anisocytosis 2+, Sodium 136, Potassium 3.2 L, Chloride 98, Carbon Dioxide 26.8, Anion Gap 11, BUN 4, Creatinine 0.40 L, Estim Creat Clear Calc 128.78, Est GFR (MDRD) Non-Af 112, BUN/Creatinine Ratio 11.2, Glucose 105 H, Calcium 8.4, Phosphorus 2.8, Magnesium 2.1 Micro: Microbiology 03/20/25 17:51 Urine, Random Legionella Antigen - Final 03/20/25 17:51 Urine, Random Streptococcus pneumoniae Antigen (M - Final Streptococcus pneumonia Ag 03/21/25 00:38 Sputum, Expectorated/Coughed Gram Stain - Final 03/20/25 17:50 Mucosa - Nose SARS-CoV-2, Influenza & RSV (PCR) - Final Physical Exam Narrative GENERAL: cooperative HEENT: Atraumatic; normocephalic EYES; Anicteric, Normal Conjunctiva NECK; supple, normal thyroid, RESPIRATORY: Diminished to auscultation with bilateral wheezes CARDIOVASCULAR: Regular S1 S2, GI: soft, normoactive bowel sounds, : No Renal angle tenderness; EXTREMITIES: No edema, no clubbing, MUSCULOSKELETAL: no muscle wasting NEURO: Awake; no lateralizing signs. SKIN: No Rash PSYCH; Flat affect Assessment & Plan Assessment/Plan (1) Pneumonia: (2) Hypomagnesemia: (3) Hypokalemia: PLAN: Plan Patient is a 60-year-old lady who presented with shortness of breath and progressive generalized weakness with some confusion. An assessment of acute metabolic encephalopathy as well as sepsis made admitted to a monitored bed for further management 1. Severe sepsis ? Secondary to pneumococcal pneumonia. Patient had a source of infection on admission with elevated WBC count as well as evidence of endorgan dysfunction lactic acidosis. Treatment was initiated per protocol with IV fluid resuscitation broad-spectrum antibiotic therapy after cultures have been sent. Response to therapy monitored with serial lactic acid level ? Patient WBC count trending down 2. Pneumonia - Secondary to streptococcal pneumonia, Strep pneumo Test Urine POSITIVE for pneumococcal pneumonia placed on Levaquin and placed on oxygen titrated to keepPulse Ox greater than 90 . Acute metabolic encephalopathy ? Secondary to pneumonia treating underlying etiology tachycardia 03/22/2025; patient back to baseline 4. Hypokalemia -Corrected per protocol, repeat potassium levels ordered in a.m. for response totherapy ? Patient potassium still remains low additional potassium given 5. Anemia ? Secondary to chronic disorder. As part of patient's evaluation ordered iron studies stool guaiac ferritin B12 level.. With patient hemoglobin being less than 7 an order was given for patient to be transfused 1 unit PRBC. Subsequently monitoring H&H and transfuse if patient becomes symptomatic or hemoglobin falls below 7 6. COPD with acute exacerbation Secondary to above patient was started on bronchodilator treatment systemic steroid as well as antibiotics as discussed above. Placed on supplemental oxygen titrated to keep saturation greater than 90 ? 03/22/2025; patient still remains dyspneic at rest 7. Chronic hypoxic respiratory failure Secondary to COPD patient is on baseline oxygen 3 L continuous 8. Tobacco dependence ? Counseled on cessation, patient has allergy to nicotine nicotine patch was therefore not ordered 9. Hypertension ? Blood pressure controlled, home medications continued with dose adjustment as needed 10. Dyslipidemia ? Patient is on atorvastatin did continue 10. Seizure disorder ? Patient is on camazepam as well as Keppra did continue with home doses 12. Depression with anxiety ? Did continue with home meds 13.DVT prophylaxis ? On enoxaparin 14. Constipation ? Symptom management initiated Charges/Coding Visit Charges Inpatient E&M: 40790 Subs Hosp L2 03/22/25939 <Electronically signed by Troy kAins MD> Cosigner Signature (if applicable): CC: ~ Signed [facility] Work Phone: [phone] 675-153105-31-2025 Progress note [facility] Medical Records Department [address] [place] [address] Progress Note - Hospitalist 03/22/25934 MR#: [id number] Acct: [id number] Name: AISHA HA Rep #:[id number] : 1965 60 From: Troy Akins MD PCP: Dr. Geovani Gay MD Status:ADM IN Location: [place] [address] Reason for Visit Reason for Visit: Diagnoses Hypomagnesemia (03/20/25) Hypokalemia (03/20/25) Pneumonia, unspecified organism (03/20/25) Subjective Subjective Patient seen WBC count trending down. Added systemic steroid to her treatment regimen the day prior. Objective Data Objective Data Vital Signs: Vital Signs Temp Pulse Resp BP Pulse Ox O2 Del Method O2 Flow Rate 97.9 F 99 20 H 169/63 H 96 Nasal Cannula 3 03/22/25 09:14 03/22/25 09:14 03/22/25 09:14 03/22/25 09:14 03/22/25 09:14 03/22/25 09:14 03/22/25 09:14 Oxygen Flow Rate (L/min) 3 Oxygen Delivery Method Nasal Cannula Weight: 71.6 kg Body Mass Index (BMI) 30.8 Intake & Output: Intake and Output for Last 24 Hours 03/20/25 03/21/25 03/22/25 23:59 23:59 23:59 Intake Total 350 / 350 4420.34 / 4420.34 601.67 / 601.67 Output Total 300 / 300 Balance 350 / 350 4120.34 / 4120.34 601.67 / 601.67 Lab / Micro Data 03/22/25 04:40 03/22/25 04:40 Labs: Laboratory Results - last 24 hr 03/21/25 13:02: Lactic Acid 2.5 H* 03/21/25 14:18: Blood Type B POSITIVE, Antibody Screen POSITIVE, Antibody Identification ANTI-M, Antigen Identification K ANTIGEN - NEGATIVE 03/21/25 14:18: Antigen Identification M ANTIGEN - NEGATIVE, Crossmatch See Detail 03/21/25 17:33: Lactic Acid 3.5 H* 03/22/25 04:40: WBC 11.1 H, RBC 3.44 L, Hgb 7.9 L, Hct 26.1 L, MCV 75.9 L D, MCH23.0 L, MCHC 30.3 L, RDW Std Deviation 54.6 H, RDW Coeff of Sanju 20.4 H, Plt Count 218, MPV 10.6, Immature Gran % (Auto)0.500, Neut % (Auto) 76.1 H, Lymph %(Auto) 17.4 L, [place] % (Auto) 5.9, Eos % (Auto) 0.0, Baso % (Auto) 0.1, Absolute Neuts (auto) 8.4 H, Absolute Lymphs (auto) 1.93, Nucleated RBC % 0, DifferentialComment SCANNED, Polychromasia RARE, Anisocytosis 2+, Sodium 136, Potassium 3.2 L, Chloride 98, Carbon Dioxide 26.8, Anion Gap 11, BUN 4, Creatinine 0.40 L, Estim Creat Clear Calc 128.78, Est GFR (MDRD) Non-Af 112, BUN/Creatinine Ratio 11.2, Glucose 105 H, Calcium 8.4, Phosphorus 2.8, Magnesium 2.1 Micro: Microbiology 03/20/25 17:51 Urine, Random Legionella Antigen - Final 03/20/25 17:51 Urine, Random Streptococcus pneumoniae Antigen (M - Final Streptococcus pneumonia Ag 03/21/25 00:38 Sputum, Expectorated/Coughed Gram Stain - Final 03/20/25 17:50 Mucosa - Nose SARS-CoV-2, Influenza & RSV (PCR) - Final Physical Exam Narrative GENERAL: cooperative HEENT: Atraumatic; normocephalic EYES; Anicteric, Normal Conjunctiva NECK; supple, normal thyroid, RESPIRATORY: Diminished to auscultation with bilateral wheezes CARDIOVASCULAR: Regular S1 S2, GI: soft, normoactive bowel sounds, : No Renal angle tenderness; EXTREMITIES: No edema, no clubbing, MUSCULOSKELETAL: no muscle wasting NEURO: Awake; no lateralizing signs. SKIN: No Rash PSYCH; Flat affect Assessment & Plan Assessment/Plan (1) Pneumonia: (2) Hypomagnesemia: (3) Hypokalemia: PLAN: Plan Patient is a 60-year-old lady who presented with shortness of breath and progressive generalized weakness with some confusion. An assessment of acute metabolic encephalopathy as well as sepsis made admitted to a monitored bed for further management 1. Severe sepsis ? Secondary to pneumococcal pneumonia. Patient had a source of infection on admission with elevatedWBC count as well as evidence of endorgan dysfunction lactic acidosis. Treatment was initiated per protocol with IV fluid resuscitation broad-spectrum antibiotic therapy after cultures have been sent. Response to therapy monitored with serial lactic acid level ? Patient WBC count trending down 2. Pneumonia - Secondary to streptococcal pneumonia, Strep pneumo Test Urine POSITIVE for pneumococcal pneumoniaplaced on Levaquin and placed on oxygen titrated to keepPulse Ox greater than 90 . Acute metabolic encephalopathy ? Secondary to pneumonia treating underlying etiology tachycardia 03/22/2025; patient back to baseline 4. Hypokalemia -Corrected per protocol, repeat potassium levels ordered in a.m. for response totherapy ? Patient potassium still remains low additional potassium given 5. Anemia ? Secondary to chronic disorder. As part of patient's evaluation ordered iron studies stool guaiac ferritin B12 level.. With patient hemoglobin being less than 7 an order was given for patient to be transfused 1 unit PRBC. Subsequently monitoring H&H and transfuse if patient becomes symptomaticor hemoglobin falls below 7 6. COPD with acute exacerbation Secondary to above patient was started on bronchodilator treatment systemic steroid as well as antibiotics as discussed above. Placed on supplemental oxygen titrated to keep saturation greater than 90 ? 03/22/2025; patient still remains dyspneic at rest 7. Chronic hypoxic respiratory failure Secondary to COPD patient is on baseline oxygen 3 L continuous 8. Tobacco dependence ? Counseled on cessation, patient has allergy to nicotine nicotine patch was therefore not ordered 9. Hypertension ? Blood pressure controlled, home medications continued with dose adjustment as needed 10. Dyslipidemia ? Patient is on atorvastatin did continue 10. Seizure disorder ? Patient is on camazepam as well as Keppra did continue with home doses 12. Depression with anxiety ? Did continue with home meds 13.DVT prophylaxis ? On enoxaparin 14. Constipation ? Symptom management initiated Charges/Coding Visit Charges Inpatient E&M: 71142 Subs Hosp L2 03/22/25 0940 Cosigner Signature (if applicable): CC: ~ Signed [facility]05-30-2025 Progress note Author Troy Akins [facility] Note Date/Time March 21, 2025 12:50 pm [facility] Medical Records Department [address] [place] [address] Progress Note - Hospitalist 03/21/25905 MR#: [id number] Acct: [id number] Name: AISHA HA Rep #:[id number] : 1965 60 From: Troy Akins MD PCP: Dr. Geovani Gay MD Status:ADM IN Location: [place] [address] 1 Reason for Visit Reason for Visit: Diagnoses Hypomagnesemia (03/20/25) Hypokalemia (03/20/25) Pneumonia, unspecified organism (03/20/25) Subjective Subjective Patient is a 60-year-old lady who presented with shortness of breath and progressive generalized weakness with some confusion. An assessment of acute metabolic encephalopathy as well as sepsis made admitted to a monitored bed for further management Objective Data Objective Data Vital Signs: Vital Signs Temp Pulse Resp BP Pulse Ox O2 Del Method O2 Flow Rate 98.2 F 80 20 H 126/49 H 92 Nasal Cannula 3.5 03/21/25 08:19 03/21/25 08:19 03/21/25 08:23 03/21/25 08:19 03/21/25 08:19 03/21/25 08:23 03/21/25 08:23 Oxygen Flow Rate (L/min) 3.5 Oxygen Delivery Method Nasal Cannula Weight: 71.6 kg Body Mass Index (BMI) 30.8 Intake & Output: Intake and Output for Last 24 Hours 03/19/25 03/20/25 03/21/25 23:59 23:59 23:59 Intake Total 350 / 350 1827 / 1827 Balance 350 / 350 1827 / 1827 Lab / Micro Data 03/21/25 06:02 03/21/25 06:02 Labs: Laboratory Results - last 24 hr 03/20/25 16:20: Magnesium 1.1 L, Ammonia 32.4, NT pro BNP II 992 H 03/20/25 17:45: WBC 20.1 H, RBC 3.35 L, Hgb 7.2 L, Hct 23.7 L, MCV 70.7 L, MCH 21.5 L, MCHC 30.4 L, RDW Std Deviation 50.4 H, RDW Coeff of Sanju 20.1 H, Plt Count 224, MPV 9.9, Immature Gran % (Auto) 0.700, Neut % (Auto) 81.6 H, Lymph % (Auto) 10.4 L, [place] % (Auto) 6.6, Eos % (Auto) 0.5, Baso % (Auto) 0.2, Absolute Neuts (auto) 16.4 H, Absolute Lymphs (auto) 2.10, Nucleated RBC % 0.1, Differential Comment SCANNED, Anisocytosis 2+, PT 15.9 H, INR 1.3, APTT 42.5 H, Sodium 130 L, Potassium 2.2 L*, Chloride 84 L, Carbon Dioxide 31.4, Anion Gap 14, BUN 4, Creatinine 0.49 L, Est GFR (MDRD) Non-Af 107, BUN/Creatinine Ratio 8.6 L, Glucose 118 H, Lactic Acid 2.4 H*, Calcium 8.2, Total Bilirubin 0.72, AST49 H, ALT 21, Alkaline Phosphatase 163 H, Troponin T High Sens 22 H, Total Protein 7.9, Albumin 3.3 L, Globulin 4.6 H, Albumin/Globulin Ratio 0.7 L 03/20/25 19:55: Urine Color Yellow, Urine Clarity Clear, Urine pH 6.0, Ur Specific Buckner 1.010, Urine Protein 100 H, Urine Glucose (UA) Normal, Urine Ketones Negative, Urine Occult Blood 10 H, Urine Nitrite Negative, Urine Bilirubin 1 H, Urine Urobilinogen 8 H, Ur Leukocyte Esterase 25 H, Urine RBC 0 SEEN, Urine WBC 0 SEEN, Ur Squamous Epith Cells 0-5 SEEN, Urine Bacteria RARE, Urine Mucus 0 SEEN 03/20/25 20:00: Troponin T Hi Sens 2 Hr 20 H 03/20/25 20:20: Phosphorus 2.1 L, Iron 12 L, TIBC 339, Iron Saturation 3.0 L, Unsaturated IBC 327, Ferritin 36 03/20/25 22:15: Troponin T Hi Sens 4Hr 16 H 03/21/25 00:10: Lactic Acid 3.8 H* 03/21/25 06:02: WBC 17.8 H, RBC 3.13 L, Hgb 6.8 L, Hct 22.5 L, MCV 71.9 L, MCH 21.7 L, MCHC 30.2 L, RDW Std Deviation 51.1 H, RDW Coeff of Sanju 20.3 H, Plt Count 218, MPV 10.5, Immature Gran % (Auto) 0.700, Neut % (Auto) 75.5 H, Lymph %(Auto) 14.7 L, [place] % (Auto) 8.9, Eos % (Auto) 0.1, Baso % (Auto) 0.1, Absolute Neuts (auto) 13.5 H, Absolute Lymphs (auto) 2.61, Nucleated RBC % 0, Sodium 131 L, Potassium 2.8 L, Chloride 90 L, Carbon Dioxide 28.8, Anion Gap 12, BUN 8, Creatinine 0.51 L, Estim Creat Clear Calc 101.00, Est GFR (MDRD) Non-Af 105, BUN/Creatinine Ratio 16.2, Glucose 90, Calcium 7.9, Magnesium 2.2 Micro: Microbiology 03/20/25 17:51 Urine, Random Legionella Antigen - Final 03/20/25 17:51 Urine, Random Streptococcus pneumoniae Antigen (M - Final Streptococcus pneumonia Ag 03/20/25 17:50 Mucosa - Nose SARS-CoV-2, Influenza & RSV (PCR) - Final ABG Data ABG results: ABG 03/20/25 18:32 Specimen Type ART Sample Site R Radial pH 7.58 H Bicarbonate Actual 34.1 H Total CO2 35 Base Excess 12 H O2 Saturation 93 L O2 % 3.0 ABG pCO2 36.5 ABG pO2 58 L Merissa Test Positive O2 Delivery Device Cannula Vent Mode Not entered Radiography Diagnostic Testing: Radiology Impression Chest X-Ray 03/20/25 18:47 IMPRESSION: Left midlung and basilar consolidative opacities suspicious for pneumonia. Reading Location: [place] [address] Physical Exam Narrative GENERAL: cooperative but appears ill looking and dyspneic at rest HEENT: Atraumatic; normocephalic EYES; Anicteric, Normal Conjunctiva NECK; supple, normal thyroid, RESPIRATORY: Diminished to auscultation with bilateral wheezes CARDIOVASCULAR: Regular S1 S2, GI: soft, normoactive bowel sounds, : No Renal angle tenderness; EXTREMITIES: No edema, no clubbing, MUSCULOSKELETAL: no muscle wasting NEURO: Awake; no lateralizing signs. SKIN: No Rash PSYCH; Flat affect Assessment & Plan Assessment/Plan (1) Pneumonia: (2) Hypomagnesemia: (3) Hypokalemia: PLAN: Plan Patient is a 60-year-old lady who presented with shortness of breath and progressive generalized weakness with some confusion. An assessment of acute metabolic encephalopathy as well as sepsis made admitted to a monitored bed for further management 1. Severe sepsis ? Secondary to pneumococcal pneumonia. Patient had a source of infection on admission with elevated WBC count as well as evidence of endorgan dysfunction lactic acidosis. Treatment was initiated per protocol with IV fluid resuscitation broad-spectrum antibiotic therapy after cultures have been sent. Response to therapy monitored with serial lactic acid level 2. Pneumonia - Secondary to streptococcal pneumonia, Strep pneumo Test Urine POSITIVE for pneumococcal pneumonia placed on Levaquin and placed on oxygen titrated to keepPulse Ox greater than 90 2. Acute metabolic encephalopathy ? Secondary to pneumonia treating underlying etiology 4. Hypokalemia -Corrected per protocol, repeat potassium levels ordered in a.m. for response totherapy 5. Anemia ? Secondary to chronic disorder. As part of patient's evaluation ordered iron studies stool guaiac ferritin B12 level.. With patient hemoglobin being less than 7 an order was given for patient to be transfused 1 unit PRBC. Subsequently monitoring H&H and transfuse if patient becomes symptomatic or hemoglobin falls below 7 6. COPD with acute exacerbation Secondary to above patient was started on bronchodilator treatment systemic steroid as well as antibiotics as discussed above. Placed on supplemental oxygen titrated to keep saturation greater than 90 7. Chronic hypoxic respiratory failure Secondary to COPD patient is on baseline oxygen 3 L continuous 8. Tobacco dependence ? Counseled on cessation, patient has allergy to nicotine nicotine patch was therefore not ordered 9. Hypertension ? Blood pressure controlled, home medications continued with dose adjustment as needed 10. Dyslipidemia ? Patient is on atorvastatin did continue 10. Seizure disorder ? Patient is on camazepam as well as Keppra did continue with home doses 12. Depression with anxiety ? Did continue with home meds 13.DVT prophylaxis ? On enoxaparin Time spent in the patient's overall evaluation,decision-making process, review of diagnostic data, adjustment of management, discussion with other providers, nursing nursing and ancillary staff involved in patient's care documentation, 52 Minutes DVT: Lovenox Charges/Coding Visit Charges Inpatient E&M: 53453 Subs Hosp L3 03/21/25 1250 <Electronically signed by Troy Akins MD> Cosigner Signature (if applicable): CC: ~ Signed [facility] Work Phone: 1(195) 382-989005-30-2025 Progress note [facility] Medical Records Department [address] [place] [address] Progress Note - Hospitalist 03/21/25 0906 MR#: [id number] Acct: [id number] Name: AISHA HA Rep #:[id number] : 1965 60 From: Troy Akins MD PCP: Dr. Geovani Gay MD Status:ADM IN Location: [place] [address] Reason for Visit Reason for Visit: Diagnoses Hypomagnesemia (03/20/25) Hypokalemia (03/20/25) Pneumonia, unspecified organism (03/20/25) Subjective Subjective Patient is a 60-year-old lady who presented with shortness of breath and progressive generalized weakness with some confusion. An assessment of acute metabolic encephalopathy as well as sepsis made admitted to a monitored bed for further management Objective Data Objective Data Vital Signs: Vital Signs Temp Pulse Resp BP Pulse Ox O2 Del Method O2 Flow Rate 98.2 F 80 20 H 126/49 H 92 Nasal Cannula 3.5 03/21/25 08:19 03/21/25 08:19 03/21/25 08:23 03/21/25 08:19 03/21/25 08:19 03/21/25 08:23 03/21/25 08:23 Oxygen Flow Rate (L/min) 3.5 Oxygen Delivery Method Nasal Cannula Weight: 71.6 kg Body Mass Index (BMI) 30.8 Intake & Output: Intake and Output for Last 24 Hours 03/19/25 03/20/25 03/21/25 23:59 23:59 23:59 Intake Total 350 / 350 1827 / 1827 Balance 350 / 350 1827 / 1827 Lab / Micro Data 03/21/25 06:02 03/21/25 06:02 Labs: Laboratory Results - last 24 hr 03/20/25 16:20: Magnesium 1.1 L, Ammonia 32.4, NT pro BNP II 992 H 03/20/25 17:45: WBC 20.1 H, RBC 3.35 L, Hgb 7.2 L, Hct 23.7 L, MCV 70.7 L, MCH 21.5 L, MCHC 30.4 L,RDW Std Deviation 50.4 H, RDW Coeff of Sanju 20.1 H, Plt Count 224, MPV 9.9, Immature Gran % (Auto) 0.700, Neut % (Auto) 81.6 H, Lymph % (Auto) 10.4 L, [place] % (Auto) 6.6, Eos % (Auto) 0.5, Baso % (Auto) 0.2, Absolute Neuts (auto) 16.4 H, Absolute Lymphs (auto) 2.10, Nucleated RBC % 0.1, Differential C omment SCANNED, Anisocytosis 2+, PT 15.9 H, INR 1.3, APTT 42.5 H, Sodium 130 L, Potassium 2.2 L*, Chloride 84 L, Carbon Dioxide 31.4, Anion Gap 14, BUN 4, Creatinine 0.49 L, Est GFR (MDRD) Non-Af 107, BUN/Creatinine Ratio 8.6 L, Glucose 118 H, Lactic Acid 2.4 H*, Calcium 8.2, Total Bilirubin 0.72, AST49 H, ALT 21, Alkaline Phosphatase 163 H, Troponin T High Sens 22 H, Total Protein 7.9, Albumin 3.3 L, Globulin 4.6 H, Albumin/Globulin Ratio 0.7 L 03/20/25 19:55: Urine Color Yellow, Urine Clarity Clear, Urine pH 6.0, Ur Specific Buckner 1.010, Urine Protein 100 H, Urine Glucose (UA) Normal, Urine Ketones Negative, Urine Occult Blood 10 H, Urine Nitrite Negative, Urine Bilirubin 1 H, Urine Urobilinogen 8 H, Ur Leukocyte Esterase 25 H, Urine RBC 0 SEEN, Urine WBC 0 SEEN, Ur Squamous Epith Cells 0-5 SEEN, Urine Bacteria RARE, Urine Mucus 0 SEEN 03/20/25 20:00: Troponin T Hi Sens 2 Hr 20 H 03/20/25 20:20: Phosphorus 2.1 L, Iron 12 L, TIBC 339, Iron Saturation 3.0 L, Unsaturated IBC 327, Ferritin 36 03/20/25 22:15: Troponin T Hi Sens 4Hr 16 H 03/21/25 00:10: Lactic Acid 3.8 H* 03/21/25 06:02: WBC 17.8 H, RBC 3.13 L, Hgb 6.8 L, Hct 22.5 L, MCV 71.9 L, MCH 21.7 L, MCHC 30.2 L,RDW Std Deviation 51.1 H, RDW Coeff of Sanju 20.3 H, Plt Count 218, MPV 10.5, Immature Gran % (Auto) 0.700, Neut % (Auto) 75.5 H, Lymph %(Auto) 14.7 L, [place] % (Auto) 8.9, Eos % (Auto) 0.1, Baso % (Auto) 0.1, Absolute Neuts (auto) 13.5 H, Absolute Lymphs (auto) 2.61, Nucleated RBC % 0, Sodium 131 L, Po tassium 2.8 L, Chloride 90 L, Carbon Dioxide 28.8, Anion Gap 12, BUN 8, Creatinine 0.51 L, Estim Creat Clear Calc 101.00, Est GFR (MDRD) Non-Af 105, BUN/Creatinine Ratio 16.2, Glucose 90, Calcium 7.9, Magnesium 2.2 Micro: Microbiology 03/20/25 17:51 Urine, Random Legionella Antigen - Final 03/20/25 17:51 Urine, Random Streptococcus pneumoniae Antigen (M - Final Streptococcus pneumonia Ag 03/20/25 17:50 Mucosa - Nose SARS-CoV-2, Influenza & RSV (PCR) - Final ABG Data ABG results: ABG 03/20/25 18:32 Specimen Type ART Sample Site R Radial pH 7.58 H Bicarbonate Actual 34.1 H Total CO2 35 Base Excess 12 H O2 Saturation 93 L O2 % 3.0 ABG pCO2 36.5 ABG pO2 58 L Merissa Test Positive O2 Delivery Device Cannula Vent Mode Not entered Radiography Diagnostic Testing: Radiology Impression Chest X-Ray 03/20/25 18:47 IMPRESSION: Left midlung and basilar consolidative opacities suspicious for pneumonia. Reading Location: [place] [address] Physical Exam Narrative GENERAL: cooperative but appears ill looking and dyspneic at rest HEENT: Atraumatic; normocephalic EYES; Anicteric, Normal Conjunctiva NECK; supple, normal thyroid, RESPIRATORY: Diminished to auscultation with bilateral wheezes CARDIOVASCULAR: Regular S1 S2, GI: soft, normoactive bowel sounds, : No Renal angle tenderness; EXTREMITIES: No edema, no clubbing, MUSCULOSKELETAL: no muscle wasting NEURO: Awake; no lateralizing signs. SKIN: No Rash PSYCH; Flat affect Assessment & Plan Assessment/Plan (1) Pneumonia: (2) Hypomagnesemia: (3) Hypokalemia: PLAN: Plan Patient is a 60-year-old lady who presented with shortness of breath and progressive generalized weakness with some confusion. An assessment of acute metabolic encephalopathy as well as sepsis made admitted to a monitored bed for further management 1. Severe sepsis ? Secondary to pneumococcal pneumonia. Patient had a source of infection on admission with elevatedWBC count as well as evidence of endorgan dysfunction lactic acidosis. Treatment was initiated per protocol with IV fluid resuscitation broad-spectrum antibiotic therapy after cultures have been sent. Response to therapy monitored with serial lactic acid level 2. Pneumonia - Secondary to streptococcal pneumonia, Strep pneumo Test Urine POSITIVE for pneumococcal pneumoniaplaced on Levaquin and placed on oxygen titrated to keepPulse Ox greater than 90 2. Acute metabolic encephalopathy ? Secondary to pneumonia treating underlying etiology 4. Hypokalemia -Corrected per protocol, repeat potassium levels ordered in a.m. for response totherapy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 03/20/25 17:05 codeine AdvReac Upset Verified 03/20/25 17:05 Stomach cyclobenzaprine (From AdvReac SEIZURES Verified 03/20/25 17:05 Flexeril) fluoxetine (From Prozac) AdvReac INCREASED Verified 03/20/25 17:05 ANXIETY gabapentin AdvReac INCREASED Verified 03/20/25 17:05 ANXIETY, CONFUSION nicotine (From Nicoderm CQ) AdvReac SEIZURES Verified 03/20/25 17:05 risperidone (From Risperdal) AdvReac SEIZURES Verified 03/20/25 17:05 Surgical History Hx of esophagogastroduodenoscopy Hx laparoscopic cholecystectomy History of esophagogastroduodenoscopy (EGD) Hx of tubal ligation Hx of bilateral cataract extraction History of ankle surgery History of back surgery History of neck surgery History of colonoscopy Social History Smoking Status: Current every day smoker tobacco type: cigarettes ROS ROS ED ROS Narrative Constitutional: Denies any fevers, chills, headaches, lightness, dizziness Eyes: Denies change in vision double vision blurry vision Cardiovascular: Denies chest pain or palpitations Respiratory: Claims cough and shortness of breath as noted above Abdomen: Denies abdominal pain nausea vomit diarrhea : Denies any urinary symptoms Neurological: Denies numbness, aches, tingling Musculoskeletal: Denies back pain Skin: Denies any rashes or lesions EXAM Physical Exam Narrative Exam Narrative: General: Patient lying in bed rest comfortably did not appear to be acute distress Head: Atraumatic, normocephalic Eyes: PERRL bilaterally, EOMI bilateral, no conjunctival injection noted Neck: Soft, supple, trachea midline Cardiovascular: Regular rate and rhythm no murmurs gallops rubs noted Respiratory: Patient has diffuse end expiratory wheezing noted bilaterally Abdomen: Soft, nondistended, nontender to palpation Extremities: +4/5 strength noted in the bilateral upper and lower extremities, radial pulses +2/4 in the bilateral extremities, no pedal edema on exam Neurological: Patient following commands knew that she was at [facility] she was confused on what season we are in and the year which states thatshe would normally know Skin: Warm, dry, tact no rashes or lesions noted Const Vital Signs: 03/20/25 17:04 03/20/25 17:41 03/20/25 17:41 Temperature 98.5 F Temperature Source Temporal Pulse Rate 95 97 Respiratory Rate 24 H 28 H Respiratory Effort Respiratory Depth Respiratory Pattern Blood Pressure 148/49 H Blood Pressure Mean 82 Pulse Ox 94 92 Oxygen Delivery Method Nasal Cannula Nasal Cannula Oxygen Flow Rate (L/min) 3 3 03/20/25 17:57 03/20/25 17:57 03/20/25 18:08 Temperature 97.6 F L Temperature Source Temporal Pulse Rate 99 Respiratory Rate 24 H Respiratory Effort Short of Breath Labored Respiratory Depth Shallow Respiratory Pattern Tachypnea Blood Pressure 144/49 H Blood Pressure Mean 80 Pulse Ox 95 Oxygen Delivery Method Nasal Cannula Nasal Cannula Nasal Cannula Oxygen Flow Rate (L/min) 3 3 3 03/20/25 18:59 03/20/25 20:00 03/20/25 20:00 Temperature 100.9 F H 100.1 F H Temperature Source Oral Oral Pulse Rate 97 93 Respiratory Rate 28 H 24 H Respiratory Effort Respiratory Depth Respiratory Pattern Blood Pressure 139/55 H 153/49 H 153/49 H Blood Pressure Mean 83 83 83 Pulse Ox 94 94 Oxygen Delivery Method Nasal Cannula Nasal Cannula Oxygen Flow Rate (L/min) 3 3 03/20/25 21:00 03/20/25 21:00 Temperature 99.5 F H Temperature Source Oral Pulse Rate 90 Respiratory Rate 25 H Respiratory Effort Respiratory Depth Respiratory Pattern Blood Pressure 132/63 H 132/63 H Blood Pressure Mean 86 86 Pulse Ox 95 Oxygen Delivery Method Nasal Cannula Oxygen Flow Rate (L/min) 3 MDM MDM MDM Narrative Medical decision making narrative: Patient is a 60-year-old female who presented to the emergency department with achief complaint of cough, dyspnea on exertion, increased confusion. On the differential diagnosis includes but not limited to acute on chronic hypoxic respiratory failure, hypercapnic respiratory failure, UTI, pneumonia, CHF. Onceworkup is obtained reviewed she will be reevaluated. There is concern for hypervolemic state therefore only 500 cc/kg bolus of IV fluids will be administered. Patient's CBC was significant for leukocytosis of 20,000, hemoglobin was 7.2, platelet count was noted be 224. Patient's arterial blood gas reviewed which showed a pH 7.58 with a CO2 of 36.5 slightlyalkalotic. Patient sodium was noted 130, potassium was low at 2.2 she was given 40 mill equivalentsIV supplementation as well as 40 mill equivalents orally, creatinine was 0.49. Patientlactic acid was 2.4, magnesium low at 1.1 she will be given 4 g of magnesium supplementation as well. Patient ASTand ALT are 49 and 21 respectively. Patient's ammonia level was 32.4, troponin of 22 delta troponin obtained at 20. Patient proBNP was 992. Patient's EKG was reviewed which showed sinus rhythm with arate of [address] depressions in the lateral leads likely secondary to her shortness of breathhypoxia. Patient urinalysis pending. Patient's chest x-ray reviewed by myself and by radiology which showed a left midlung and basilar consolidative opacity suspicious for pneumonia. Patient was given IV antibiotics Levaquin at 1857. Patient's COVID flu RSV swab was negative. Patient did develop fever here in the emergency department she was given a gram of Tylenol. Reevaluated patient and she is having end-expiratory wheezing noted again therefore we will give her another albuterol treatment. Will discuss case with hospitalist for admission for her acute on chronic hypoxic respiratory failure in the setting of pneumonia as well as her hypokalemia and hypomagnesia. Discussed case with hospitalist Dr. Douglas who accept patient for admission. Patient notified as well as significant other bedside agreeable spinal cord concerns answered. Lab Data Labs: Laboratory Results - last 24 hr 03/20/25 03/20/25 03/20/25 16:20 17:45 19:55 WBC 20.1 H RBC 3.35 L Hgb 7.2 L Hct 23.7 L MCV 70.7 L MCH 21.5 L MCHC 30.4 L RDW Std Deviation 50.4 H RDW Coeff of Sanju 20.1 H Plt Count 224 MPV 9.9 Immature Gran % (Auto) 0.700 Neut % (Auto) 81.6 H Lymph % (Auto) 10.4 L [place] % (Auto) 6.6 Eos % (Auto) 0.5 Baso % (Auto) 0.2 Absolute Neuts (auto) 16.4 H Absolute Lymphs (auto) 2.10 Nucleated RBC % 0.1 Differential Comment SCANNED Anisocytosis 2+ PT 15.9 H INR 1.3 APTT 42.5 H Sodium 130 L Potassium 2.2 L* Chloride 84 L Carbon Dioxide 31.4 Anion Gap 14 BUN 4 Creatinine 0.49 L Est GFR (MDRD) Non-Af 107 BUN/Creatinine Ratio 8.6 L Glucose 118 H Lactic Acid 2.4 H* Calcium 8.2 Magnesium 1.1 L Total Bilirubin 0.72 AST 49 H ALT 21 Alkaline Phosphatase 163 H Ammonia 32.4 Troponin T High Sens 22 H Troponin T Hi Sens 2 Hr NT pro BNP II 992 H Total Protein 7.9 Albumin 3.3 L Globulin 4.6 H Albumin/Globulin Ratio 0.7 L Urine Color Yellow Urine Clarity Clear Urine pH 6.0 Ur Specific Buckner 1.010 Urine Protein 100 H Urine Glucose (UA) Normal Urine Ketones Negative Urine Occult Blood 10 H Urine Nitrite Negative Urine Bilirubin 1 H Urine Urobilinogen 8 H Ur Leukocyte Esterase 25 H 03/20/25 20:00 WBC RBC Hgb Hct MCV MCH MCHC RDW Std Deviation RDW Coeff of Sanju Plt Count MPV Immature Gran % (Auto) Neut % (Auto) Lymph % (Auto) [place] % (Auto) Eos % (Auto) Baso % (Auto) Absolute Neuts (auto) Absolute Lymphs (auto) Nucleated RBC % Differential Comment Anisocytosis PT INR APTT Sodium Potassium Chloride Carbon Dioxide Anion Gap BUN Creatinine Est GFR (MDRD) Non-Af BUN/Creatinine Ratio Glucose Lactic Acid Calcium Magnesium Total Bilirubin AST ALT Alkaline Phosphatase Ammonia Troponin T High Sens Troponin T Hi Sens 2 Hr 20 H NT pro BNP II Total Protein Albumin Globulin Albumin/Globulin Ratio Urine Color Urine Clarity Urine pH Ur Specific Buck[place] Urine Protein Urine Glucose (UA) Urine Ketones Urine Occult Blood Urine Nitrite Urine Bilirubin Urine Urobilinogen Ur Leukocyte Esterase ABG Data ABG results: ABG 03/20/25 18:32 Specimen Type ART Sample Site R Radial pH 7.58 H Bicarbonate Actual 34.1 H Total CO2 35 Base Excess 12 H O2 Saturation 93 L O2 % 3.0 ABG pCO2 36.5 ABG pO2 58 L Merissa Test Positive O2 Delivery Device Cannula Vent Mode Not entered Radiography Diagnostic Testing: Clinical Impression(s) from Imaging Studies Chest X-Ray 03/20/25 18:47 IMPRESSION: Left midlung and basilar consolidative opacities suspicious for pneumonia. Reading Location: [place] [address] Discharge Plan Triage Chief Complaint: Shortness of Breath ED Provider: Bradley Pichardo Dx/Rx/DC Orders Clinical Impression: Acute on chronic hypoxic respiratory failure, Hypokalemia, Hypomagnesemia, Pneumonia, Dyspnea on exertion Prescriptions: No Action albuterol sulfate [Proventil HFA] 90 mcg/actuation HFA aerosol inhaler 2 puff inhalation Q6H PRN (Reason: COPD) atorvastatin 80 mg tablet 80 mg PO QHS ipratropium-albuterol 3 ML solution for nebulization 3 ml inhalation Q6H PRN (Reason: shortnes of breath) levetiracetam [Keppra] 500 MG tablet 1,000 mg PO BID omeprazole 40 MG capsule,delayed release(DR/EC) 40 mg PO BID amlodipine 10 MG tablet 10 mg PO DAILY alprazolam [Xanax] 1 MG tablet 1 mg PO QHS PRN (Reason: anxiety ) lisinopril 10 mg tablet 20 mg PO BID ondansetron HCl 4 mg tablet 4 mg PO BID PRN (Reason: nausea/vomiting) carbamazepine 200 mg tablet extended release 12 hr 400 mg PO BID duloxetine 30 mg capsule,delayed release(DR/EC) 30 mg PO QHS multivitamin [Daily Multi-Vitamin] Tablet 1 tab PO DAILY Qty: 30 0RF furosemide 20 mg tablet 20 mg PO DAILY nystatin 100,000 unit/gram powder 1 applic topical TID spironolactone 25 mg tablet 25 mg PO DAILY calcium carbonate-vitamin D2 250 (625)-125 mg-unit tablet 1 tab PO DAILY buspirone 10 mg tablet 10 mg PO TID duloxetine 60 mg capsule,delayed release(DR/EC) 60 mg PO DAILY ergocalciferol (vitamin D2) 1,250 mcg (50,000 unit) capsule 1,250 mcg PO QWEEK tramadol 50 mg tablet 50 mg PO BID PRN PRN (Reason: severe pain) perphenazine 4 mg tablet 4 mg PO DAILY Incruse Ellipta 62.5 mcg/actuation blister with device 1 inh inhalation DAILY Primary Care Provider: Geovani Gay Referrals: Geoavni Gay MD [Primary Care Provider] - Print Language: Citizen Of [place] Disposition Disposition: Acute Care Hospital [facility] What to do if you have Problems For any increased pain, shortness of breath, bleeding, nausea or vomiting, chestpain, or any unexpected problems, contact your Primary Care Provider. Call [facility] ([phone]) or report tothe closest Emergency Room. Call 911 if necessary. 03/20/252125 Cosigner Signature (if applicable): CC: Dr. Geovani Gay MD ~ Signed [facility]05-29-2025 Radiology Diagnostic study note [facility] Imaging Services [address] [place] [address] Chest PA and Lateral MR#: [id number] Acct: [id number] Name: AISHA HA Rep #: [id number] : [id number] F 60 From: Myke Andrew MD PCP: Dr. Geovani Gay MD Status: REG ER Study:Chest PA and Lateral Date of Exam: 03/20/25 Exam# [id number] Ordering Dr: Jovon Pichardo DO PROCEDURE: CHEST PA AND LATERAL 03/20/2025 REASON FOR EXAM: SOB TECHNIQUE: Frontal and lateral views of the chest. COMPARISON: 04/18/2024. FINDINGS: Hardware: None. Heart: The heart size is normal. Mediastinum: The mediastinal contour is unremarkable. Lungs: Left midlung and basilar consolidative opacities suspicious for pneumonia. Bones: Degenerative changes are identified within the thoracic spine. RAD/Chest PA and Lateral IMPRESSION: Left midlung and basilar consolidative opacities suspicious for pneumonia. Reading Location: [id number] CC: Dr. Geovani Gay MD; Dr. Bradley Pichardo DO ~ Computer Peripheral Equipment Operator: Signed [facility]05-13-2025 Evaluation + Plan note* Assessment & Plan Note - Geovani Gay MD - 03/04/2025 3:17 PM EDTAssociated Problem(s): Anxiety Stable, continue BuSpar 10 mg 3 times a day, duloxetine 90 mg daily [id number] Evaluation + Plan note* Assessment & Plan Note - Geovani Gay MD - 03/04/2025 3:17 PM EDTAssociated Problem(s): Hyperlipidemia Controlled, continue atorvastatin 80 mg daily [facility] [id number] Miscellaneous Notes* Assessment & Plan Note - Geovani Gay MD - 03/04/2025 3:17 PM EDTAssociated Problem(s): Anxiety Stable, continue BuSpar 10 mg 3 times a day, duloxetine 90 mg daily * Assessment & Plan Note - Geovani Gay MD - 03/04/2025 3:17 PM EDT Associated Problem(s): Hyperlipidemia Controlled, continue atorvastatin 80 mg daily * Assessment & Plan Note - Geovani Gay MD - 03/04/2025 3:16 PM EDT Associated Problem(s): Current smoker We have discussed smoking cessation multiple times and she gives no indication she is even interested in trying to quit. * Assessment & Plan Note - Geovani Gay MD - 03/04/2025 3:16 PM EDT Associated Problem(s): Vitamin D deficiency, unspecified Stable, continue vitamin D 50,000 units every week * Assessment & Plan Note - Geovani Gay MD - 03/04/2025 3:15 PM EDT Associated Problem(s): GERD (gastroesophageal reflux disease) Controlled, continue omeprazole 40 mg daily * Assessment & Plan Note - Geovani Gay MD - 03/04/2025 3:15 PM EDT Associated Problem(s): Chronic nausea Stable, continue ondansetron 4 mg every 8 hours as needed or perphenazine 4 mg daily as needed. * Assessment & Plan Note - Geovani Gay MD - 03/04/2025 3:14 PM EDT Associated Problem(s): Hypertension Blood pressure was initially elevated, recheck was normal. Continue amlodipine 10 mg daily lisinopril 20 mg twice a day, metoprolol 25 mg daily and spironolactone 25 mg daily * Assessment & Plan Note - Geovani Gay MD - 03/04/2025 3:14 PM EDT Associated Problem(s): COPD (chronic obstructive pulmonary disease) (HCC) Stable, continue Incruse Ellipta 1 puff daily, albuterol 2 puffs 4 times a day as needed, DuoNebs solution every 4 hours as needed. * Assessment & Plan Note - Geovani Gay MD - 03/04/2025 3:13 PM EDT Associated Problem(s): Chronic respiratory failure with hypoxia (HCC) Stable, continue oxygen at current settings. * Assessment & Plan Note - Geovani Gay MD - 03/04/2025 3:13 PM EDT Associated Problem(s): Epilepsy, unspecified, not intractable, without status epilepticus (HCC) Controlled, continue carbamazepine XR 400 mg twice a day and Keppra 500 mg twice a day documented in this [facility]05-13-2025 Evaluation + Plan note* Assessment & Plan Note - Geovani Gay MD - 03/04/2025 3:16 PM EDT Associated Problem(s): Current smoker We have discussed smoking cessation multiple times and she gives no indication she is even interested in trying to quit. [facility] [id number] Evaluation + Plan note* Assessment & Plan Note - Geovani Gay MD - 03/04/2025 3:16 PM EDTAssociated Problem(s): Vitamin D deficiency, unspecified Stable, continue vitamin D 50,000 units every week [facility] [id number] Evaluation + Plan note* Assessment & Plan Note - Geovani Gay MD - 03/04/2025 3:15 PM EDTAssociated Problem(s): GERD (gastroesophageal reflux disease) Controlled, continue omeprazole 40 mg daily [facility] [id number] Evaluation + Plan note* Assessment & Plan Note - Geovani Gay MD - 03/04/2025 3:15 PM EDTAssociated Problem(s): Chronic nausea Stable, continue ondansetron 4 mg every 8 hours as needed or perphenazine 4 mg daily as needed. [facility] [id number] Evaluation + Plan note* Assessment & Plan Note - Geovani Gay MD - 03/04/2025 3:14 PM EDTAssociated Problem(s): Hypertension Blood pressure was initially elevated, recheck was normal. Continue amlodipine 10 mg daily lisinopril 20 mg twice a day, metoprolol 25 mg daily and spironolactone 25 mg daily [facility] [id number] Evaluation + Plan note* Assessment & Plan Note - Geovani Gay MD - 03/04/2025 3:14 PM EDTAssociated Problem(s): COPD (chronic obstructive pulmonary disease) (HCC) Stable, continue Incruse Ellipta 1 puff daily, albuterol 2 puffs 4 times a day as needed, DuoNebs solution every 4 hours as needed. [facility] [id number] Evaluation + Plan note* Assessment & Plan Note - Geovani Gay MD - 03/04/2025 3:13 PM EDTAssociated Problem(s): Chronic respiratory failure with hypoxia (HCC) Stable, continue oxygen at current settings. [facility] [id number] Evaluation + Plan note* Assessment & Plan Note - Geovani Gay MD - 03/04/2025 3:13 PM EDTAssociated Problem(s): Epilepsy, unspecified, not intractable, without status epilepticus (HCC) Controlled, continue carbamazepine XR 400 mg twice a day and Keppra 500 mg twice a day [facility] [id number] History of Present illness Narrative* Karolina Gil MA - 03/04/2025 11:30 AM EDT Patient verified by last name and date of . * Geovani Gay MD - 03/04/2025 11:30 AM EDT Images from the original note were not included. 03/04/2025 Aisha Ha (: 1965) is a 60 y.o. female , Established patient, here for evaluation of thefollowing chief complaint(s): COPD, Hyperlipidemia, Hypertension, Vitamin D Deficiency, Seizures, Cirrhosis, Chronic Kidney Disease, Abnormal Sodium, Urinary Incontinence, and Medication Check (6 month) ASSESSMENT/PLAN: 1. Chronic obstructive pulmonary disease, unspecified COPD type (HCC) Assessment & Plan: Stable, continue Incruse Ellipta 1 puff daily, albuterol 2 puffs 4 times a day as needed, DuoNebs solution every 4 hours as needed. 2. Chronic respiratory failure with hypoxia (HCC) Assessment & Plan: Stable, continue oxygen at current settings. 3. Nonintractable epilepsy without status epilepticus, unspecified epilepsy type (HCC) Assessment & Plan: Controlled, continue carbamazepine XR 400 mg twice a day and Keppra 500 mg twice a day 4. Primary hypertension Assessment & Plan: Blood pressure was initially elevated, recheck was normal. Continue amlodipine 10 mg daily lisinopril 20 mg twice a day, metoprolol 25 mg daily and spironolactone 25 mg daily 5. Chronic nausea Assessment & Plan: Stable, continue ondansetron 4 mg every 8 hours as needed or perphenazine 4 mg daily as needed. 6. Gastroesophageal reflux disease without esophagitis Assessment & Plan: Controlled, continue omeprazole 40 mg daily 7. Vitamin D deficiency, unspecified Assessment & Plan: Stable, continue vitamin D 50,000 units every week 8. Mixed hyperlipidemia Assessment & Plan: Controlled, continue atorvastatin 80 mg daily 9. Current smoker Assessment & Plan: We have discussed smoking cessation multiple times and she gives no indication she is even interested in trying to quit. 10. Anxiety Assessment & Plan: Stable, continue BuSpar 10 mg 3 times a day, duloxetine 90 mg daily Follow up in about 6 months (around 09/04/2025). SUBJECTIVE/OBJECTIVE: THEO Suresh comes in today for a 6-month follow-up on her multiple health issues she has COPD, chronic respiratory failure with hypoxia. She has a history of seizure disorder. She has hypertension which currently is slightly elevated we will recheck prior to discharge. She has a history of GERD and chronic nausea. Vitamin D deficiency and she has a history of hyperlipidemia and hyponatremia. These are both stable at this time. She continues to smoke and gives no indication she is even ready to start quitting. Review of Systems Constitutional: Negative for chills and fever. Respiratory: Negative for shortness of breath. Cardiovascular: Negative for chest pain and palpitations. Gastrointestinal: Negative for abdominal pain, blood in stool, constipation and diarrhea. Genitourinary: Negative for dyspareunia, dysuria, frequency, hematuria and urgency. Neurological: Negative for weakness and numbness. Psychiatric/Behavioral: Negative for dysphoric mood. The patient is not nervous/anxious. Vitals: 03/04/25 1114 03/04/25 1147 BP: (!) 152/82 136/70 BP Location: Left arm Left arm Patient Position: Sitting Sitting Pulse: 85 60 SpO2: 92% Weight: 157 lb (71.2 kg) Height: 5' (1.524 m) Physical Exam Vitals and nursing note reviewed. Constitutional: General: She is not in acute distress. Appearance: Normal appearance. HENT: Head: Normocephalic. Right Ear: Tympanic membrane, ear canal and external ear normal. Left Ear: Tympanic membrane, ear canal and external ear normal. Mouth/Throat: Mouth: Mucous membranes are moist. Pharynx: Oropharynx is clear. Eyes: Extraocular Movements: Extraocular movements intact. Pupils: Pupils are equal, round, and reactive to light. Neck: Vascular: No carotid bruit. Cardiovascular: Rate and Rhythm: Normal rate and regular rhythm. Heart sounds: Normal heart sounds. No murmur heard. Pulmonary: Effort: Pulmonary effort is normal. Breath sounds: Normal breath sounds. Abdominal: General: Bowel sounds are normal. Palpations: Abdomen is soft. Musculoskeletal: General: Normal range of motion. Cervical back: Normal range of motion. Lymphadenopathy: Cervical: No cervical adenopathy. Skin: General: Skin is warm and dry. Neurological: General: No focal deficit present. Mental Status: She is alert and oriented to person, place, and time. Psychiatric: Mood and Affect: Mood normal. An electronic signature was used to authenticate this note. Geovani Gay MD 03/04/2025 3:18 PM documented in this [facility]04-29-2025 Evaluation + Plan note* Assessment & Plan Note - Geovani Gay MD - 02/18/2025 10:46 AM EDT Associated Problem(s): Glossitis Prescription for Magic mouthwash was given to the patient, she is also to get lysine and start taking that along with the Magic mouthwash that she will swish and swallow. [facility] [id number] Miscellaneous Notes* Assessment & Plan Note - Geovani Gay MD - 02/18/2025 10:46 AM EDTAssociated Problem(s): Glossitis Prescription for Magic mouthwash was given to the patient, she is also to get lysine and start taking that along with the Magic mouthwash that she will swish and swallow. documented in this [facility]04-29-2025 History of Present illness Narrative* Karolina Gil MA - 02/18/2025 10:30 AM EDT Patient verified by last name and date of . * Geovani Gay MD - 02/18/2025 10:30 AM EDT Images from the original note were not included. 02/18/2025 Aisha Ha (: 1965) is a 59 y.o. female , Established patient, here for evaluation of thefollowing chief complaint(s): Other (Tongue is very painful for about a week ), Shortness of Breath (Worse this morning ), and Cough ASSESSMENT/PLAN: 1. Glossitis Assessment & Plan: Prescription for Magic mouthwash was given to the patient, she is also to get lysine and start taking that along with the Magic mouthwash that she will swish and swallow. Follow up if symptoms worsen or fail to improve. SUBJECTIVE/OBJECTIVE: HPI -Aisha comes in today stating that her tongue is very red and hurts, she denies any sores on her tongue and she denies any sore throat or trouble swallowing. She also just feels lousy all over. Review of Systems Constitutional: Negative for chills and fever. HENT: Negative for dental problem, drooling, facial swelling, sore throat and trouble swallowing. Vitals: 02/18/25 1021 02/18/25 1047 BP: (!) 143/56 102/54 Pulse: 78 80 Temp: 36.8 C (98.2 F) SpO2: 95% Weight: 153 lb 9.6 oz (69.7 kg) Height: 5' (1.524 m) Physical Exam Vitals and nursing note reviewed. Constitutional: General: She is not in acute distress. Appearance: Normal appearance. HENT: Nose: Nose normal. Mouth/Throat: Mouth: Mucous membranes are moist. Pharynx: Oropharynx is clear. Posterior oropharyngeal erythema present. Comments: Tongue is erythematous, no lesions are noted Musculoskeletal: Cervical back: Neck supple. Lymphadenopathy: Cervical: No cervical adenopathy. Neurological: Mental Status: She is alert. An electronic signature was used to authenticate this note. Geovani Gay MD 02/18/2025 11:12 AM documented in this [facility]04-28-2025 Telephone encounter Note* Telephone Encounter - Silvia Wren RN - 02/17/2025 2:29 PM EDT S: Patient spoke with [facility] nurse regarding tongue symptoms B: Onset of symptoms/concern 7-10 days Last OV 02/06/25 A: Reports her tongue is red and tender. Reports she completed nystatin swish and swallow about 10-12 days ago, prescribed on 01/28/25. The symptoms resolved then the tenderness and redness has been present about 7-10 days. States she is having difficulty eating. Denies fever, oral sores or viral symptoms. States she has rinse with peroxide. R: Appointment scheduled with Dr. Gay for 02/18/25 at 1030 am. Insurance verified with patient asCaresource. Patient denies the following: any signs or symptoms of Covid, exposure to Covid in the last 5 days, or having tested positive for Covid in the last five days. Advised on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 signature was used to authenticate this note. Geovani Gay MD 03/28/2024 2:54 PM documented in this encounterSKettering Health MiamisburgUaiepi57-73-2312 Telephone encounter Note* Telephone Encounter - GARETH Calloway CNP - 02/19/2024 6:41 AM EDT [facility] HospitalLcujep98-54-8217 Miscellaneous Notes* Telephone Encounter - GARETH Calloway CNP - 02/19/2024 6:41 AM EDT documented in this encounterSKettering Health MiamisburgUkkpdr86-65-1016 Telephone encounter Note* Telephone Encounter - GARETH Fragoso CNP - 01/29/2024 4:43 PM EDT Thank you. Rx sent reflecting dosing per note from Dr. Gay. [facility] HospitalIdruqv05-08-0236 Miscellaneous Notes* Telephone Encounter - GARETH Fragoso CNP - 01/29/2024 4:43 PM EDT Thank you. Rx sent reflecting dosing per note from Dr. Gay. * Telephone Encounter - Nia Zuniga MA - 01/29/2024 4:[address] Rodríguez note from 09/08/2023 4. Chronic nausea Assessment & Plan: Uncontrolled, continue Zofran 4 mg twice a day * Telephone Encounter - GARETH Fragoso CNP - 01/29/2024 4:00 PM EDT Are you able to find where Dr. Gay told her she could take two tablets? I am unable to find documentation for this. * Telephone Encounter - Lynn Quan - 01/29/2024 2:45 PM EDT Name of caller: [facility]/pharmacy #[id number] - [place], [place] - [address] [place] [address] STREET Contact phone number: [phone] Relationship to Patient: Pharmacy Provider: Dr. Gay Practice: [facility] Chief Complaint/Reason for Call: Patient recently started taking 2 ondansetron (Zofran) 4 MG tabletand has run out sooner then insurance will allow pharmacy to fill. Patient informed pharmacy that she was told it was okay to take [address] Gay. Pharmacy needs notification. Please advise. Best time of day caller can be reached: any Patient advised that office/PCP has 24-48 business hours to return their call: Yes documented in this encounterSK[facility]tering [id number] Telephone encounter Note* Telephone Encounter - Nia Zuniga MA - 01/29/2024 4:[address] Rodríguez note from 09/08/2023 4. Chronic nausea Assessment & Plan: Uncontrolled, continue Zofran 4 mg twice a day [place] [id number] Telephone encounter Note* Telephone Encounter - GARETH Fragoso CNP - 01/29/2024 4:00 PM EDT Are you able to find where Dr. Gay told her she could take two tablets? I am unable to find documentation for this. [id number] Telephone encounter Note* Telephone Encounter - Lynn Quan - 01/29/2024 2:45 PM EDT Name of caller: [facility]/pharmacy #[id number] - [place], [address] Contact phone number: [phone] Relationship to Patient: Pharmacy Provider: Dr. Gay [facility] Chief Complaint/Reason for Call: Patient recently started taking 2 ondansetron (Zofran) 4 MG tabletand has run out sooner then insurance will allow pharmacy to fill. Patient informed pharmacy that she was told it was okay to take [address] Gay. Pharmacy needs notification. Please advise. Best time of day caller can be reached: any Patient advised that office/PCP has 24-48 business hours to return their call: Yes [facility]nuuyy84-[facility] Telephone encounter Note* Telephone Encounter - GARETH Calloway CNP - 01/29/2024 11:34 AM EDT Reviewed chart. Refill appropriate. RX sent. [facility] [id number] Miscellaneous Notes* Telephone Encounter - GARETH Calloway CNP - 01/29/2024 11:34 AM EDT Reviewed chart. Refill appropriate. RX sent. * Telephone Encounter - Karolina Gil MA - 01/29/2024 10:30 AM EDT Prescription Request: Last medication check: 12/08/23 Last physical exam: 06/15/23 Next scheduled appointment: 06/13/24 Last date of refill on this medication metoprolol 08/17/23 90 day 1 refill Omeprazole 07/24/23 90 day 1 refill documented in this encounterSKettering [facility] [id number] Telephone encounter Note* Telephone Encounter - Karolina Gil MA - 01/29/2024 10:30 AM EDT Prescription Request: Last medication check: 12/08/23 Last physical exam: 06/15/23 Next scheduled appointment: 06/13/24 Last date of refill on this medication metoprolol 08/17/23 90 day 1 refill Omeprazole 07/24/23 90 day 1 refill [facility] [id number] Telephone encounter Note* Telephone Encounter - GARETH Calloway CNP - 12/18/2023 9:10 AM EST Reviewed chart. Refill appropriate. RX sent. [facility] [id number] Miscellaneous Notes* Telephone Encounter - GARETH Calloway CNP - 12/18/2023 9:10 AM EST Reviewed chart. Refill appropriate. RX sent. * Telephone Encounter - Karolina Gil MA - 12/18/2023 8:47 AM EST Prescription Request: Last medication check: 12/21/22 Last physical exam: 06/15/23 Next scheduled appointment: 06/13/24 Last date of refill on this medication Vitamin d 10/03/23 4 capsules 1 refill Albuterol inhaler 03/07/23 1 with 3 refills documented in this encounterSKet[id number] Telephone encounter Note* Telephone Encounter - Karolina Gil MA - 12/18/2023 8:47 AM EST Prescription Request: Last medication check: 12/21/22 Last physical exam: 06/15/23 Next scheduled appointment: 06/13/24 Last date of refill on this medication Vitamin d 10/03/23 4 capsules 1 refill Albuterol inhaler 03/07/23 1 with 3 refills [facility] [id number] Evaluation + Plan note* Assessment & Plan Note - Geovani Gay MD - 12/08/2023 10:34 AM ESTAssociated Problem(s): Hypertension blood pressure was initially elevated, recheck was normal continue amlodipine 10 mg daily metoprolol 25 mg daily [facility] [id number] Miscellaneous Notes* Assessment & Plan Note - Geovani Gay MD - 12/08/2023 10:34 AM ESTAssociated Problem(s): Hypertension blood pressure was initially elevated, recheck was normal continue amlodipine 10 mg daily metoprolol 25 mg daily * Assessment & Plan Note - Geovani Gay MD - 12/08/2023 10:33 AM EST Associated Problem(s): Current smoker We again discussed smoking cessation, her need to get off of this because of her bad lungs and alsocannot smoke because she is on oxygen. * Assessment & Plan Note - Geovani Gay MD - 12/08/2023 10:33 AM EST Associated Problem(s): Anxiety Partial remission, continue Cymbalta 30 mg twice a day and alprazolam 1 mg at bedtime. * Assessment & Plan Note - Geovani Gay MD - 12/08/2023 10:33 AM EST Associated Problem(s): Depression Partial remission, continue Cymbalta 30 mg twice a day * Assessment & Plan Note - Geovani Gay MD - 12/08/2023 10:32 AM EST Associated Problem(s): Hyperlipidemia Controlled, continue atorvastatin 80 mg daily * Assessment & Plan Note - Geovani Gay MD - 12/08/2023 10:32 AM EST Associated Problem(s): Hyponatremia Chronic, recommended that she add a little extra sodium to her diet * Assessment & Plan Note - Geovani Gay MD - 12/08/2023 10:29 AM EST Associated Problem(s): Vitamin D deficiency Stable, continue vitamin D 50,000 units weekly * Assessment & Plan Note - Geovani Gay MD - 12/08/2023 10:29 AM EST Associated Problem(s): Fibromyalgia Stable, continue Cymbalta 30 mg twice a day * Assessment & Plan Note - Geovani Gay MD - 12/08/2023 10:29 AM EST Associated Problem(s): GERD (gastroesophageal reflux disease) Stable, continue omeprazole 40 mg daily and Zofran for nausea. * Assessment & Plan Note - Geovani Gay MD - 12/08/2023 10:28 AM EST Associated Problem(s): COPD (chronic obstructive pulmonary disease) (HCC) COPD stable continue Cymbalta, Spiriva Respimat, albuterol inhaler and DuoNeb solution for her nebulizer. * Assessment & Plan Note - Geovani Gay MD - 12/08/2023 10:27 AM EST Associated Problem(s): Seizure disorder (CMS/HCC) (HCC) Stable, no recent seizures continue Tegretol 100 mg every 1212 hrs. and Keppra 500 mg daily documented in this [facility]02-16-2024 Evaluation + Plan note* Assessment & Plan Note - Geovani Gay MD - 12/08/2023 10:33 AM EST Associated Problem(s): Current smoker We again discussed smoking cessation, her need to get off of this because of her bad lungs and alsocannot smoke because she is on oxygen. [place] [id number] Evaluation + Plan note* Assessment & Plan Note - Geovani Gay MD - 12/08/2023 10:33 AM ESTAssociated Problem(s): Anxiety Partial remission, continue Cymbalta 30 mg twice a day and alprazolam 1 mg at bedtime. [facility] [id number] Evaluation + Plan note* Assessment & Plan Note - Geovani Gay MD - 12/08/2023 10:33 AM ESTAssociated Problem(s): Depression Partial remission, continue Cymbalta 30 mg twice a day [place] [id number] Evaluation + Plan note* Assessment & Plan Note - Geovani Gay MD - 12/08/2023 10:32 AM ESTAssociated Problem(s): Hyperlipidemia Controlled, continue atorvastatin 80 mg daily [place] [id number] Evaluation + Plan note* Assessment & Plan Note - Geovani Gay MD - 12/08/2023 10:32 AM ESTAssociated Problem(s): Hyponatremia Chronic, recommended that she add a little extra sodium to her diet [facility] [id number] Evaluation + Plan note* Assessment & Plan Note - Geovani Gay MD - 12/08/2023 10:29 AM ESTAssociated Problem(s): Vitamin D deficiency Stable, continue vitamin D 50,000 units weekly [place] [id number] Evaluation + Plan note* Assessment & Plan Note - Geovani Gay MD - 12/08/2023 10:29 AM ESTAssociated Problem(s): Fibromyalgia Stable, continue Cymbalta 30 mg twice a day [place] [id number] Evaluation + Plan note* Assessment & Plan Note - Geovani Gay MD - 12/08/2023 10:29 AM ESTAssociated Problem(s): GERD (gastroesophageal reflux disease) Stable, continue omeprazole 40 mg daily and Zofran for nausea. [place] [id number] Evaluation + Plan note* Assessment & Plan Note - Geovani Gay MD - 12/08/2023 10:28 AM ESTAssociated Problem(s): COPD (chronic obstructive pulmonary disease) (HCC) COPD stable continue Cymbalta, Spiriva Respimat, albuterol inhaler and DuoNeb solution for her nebulizer. [place] [id number] Evaluation + Plan note* Assessment & Plan Note - Geovani Gay MD - 12/08/2023 10:27 AM ESTAssociated Problem(s): Seizure disorder (CMS/HCC) (HCC) Stable, no recent seizures continue Tegretol 100 mg every 1212 hrs. and Keppra 500 mg daily [facility] [id number] History of Present illness Narrative* Karolina Gil MA - 12/08/2023 10:15 AM EST Patient verified by last name and date of . * Geovani Gay MD - 12/08/2023 10:15 AM EST Images from the original note were not included. 12/08/2023 Aisha Ha (: 1965) is a 58 y.o. female , Established patient, here for evaluation of thefollowing chief complaint(s): Seizures, Asthma, COPD, Hypertension, Hyperlipidemia, Depression, Anxiety, Medication Check (6 month//Pt is a self pay today), and Health Maintenance (Pt refused- hep c and hiv screening, tdap vaccine, hep a and b vaccine, shingles vaccine, rsv vaccine, 3rd covid vaccine/Mmr vaccine- done as a child) ASSESSMENT/PLAN: 1. Chronic obstructive pulmonary disease, unspecified COPD type (HCC) Assessment & Plan: COPD stable continue Cymbalta, Spiriva Respimat, albuterol inhaler and DuoNeb solution for her nebulizer. 2. Seizure disorder (CMS/HCC) (HCC) Assessment & Plan: Stable, no recent seizures continue Tegretol 100 mg every 1212 hrs. and Keppra 500 mg daily 3. Primary hypertension Assessment & Plan: blood pressure was initially elevated, recheck was normal continue amlodipine 10 mg daily metoprolol 25 mg daily 4. Gastroesophageal reflux disease without esophagitis Assessment & Plan: Stable, continue omeprazole 40 mg daily and Zofran for nausea. 5. Fibromyalgia Assessment & Plan: Stable, continue Cymbalta 30 mg twice a day 6. Vitamin D deficiency Assessment & Plan: Stable, continue vitamin D 50,000 units weekly 7. Current mild episode of major depressive disorder, unspecified whether recurrent (HCC) Assessment & Plan: Partial remission, continue Cymbalta 30 mg twice a day 8. Anxiety Assessment & Plan: Partial remission, continue Cymbalta 30 mg twice a day and alprazolam 1 mg at bedtime. 9. Current smoker Assessment & Plan: We again discussed smoking cessation, her need to get off of this because of her bad lungs and alsocannot smoke because she is on oxygen. 10. Mixed hyperlipidemia Assessment & Plan: Controlled, continue atorvastatin 80 mg daily 11. Hyponatremia Assessment & Plan: Chronic, recommended that she add a little extra sodium to her diet Follow up in about 6 months (around 06/07/2024). SUBJECTIVE/OBJECTIVE: THEO Suresh comes in today for 6-month follow-up on her multiple health issues mainly her COPD for which she wears oxygen she is on multiple inhalers her seizure disorder which seems to be stable at this time as she has had no recent seizures hypertension and her blood pressure is elevated today wewill recheck that prior to discharge, she has GERD fibromyalgia, vitamin D deficiency and hyponatremia. She has depression and anxiety which is partial remission hypercholesterolemia and she continues tosmoke even while on oxygen and multiple inhalers. Review of Systems Constitutional: Negative for chills and fever. HENT: Negative for ear pain, rhinorrhea and sinus pressure. Respiratory: Negative for shortness of breath. Cardiovascular: Negative for chest pain and palpitations. Vitals: 12/08/23 1002 12/08/23 1029 BP: (!) 148/71 138/71 Pulse: 85 80 SpO2: 96% Weight: 146 lb 9.6 oz (66.5 kg) Height: 5' (1.524 m) Physical Exam Vitals and nursing note reviewed. Constitutional: General: She is not in acute distress. Appearance: Normal appearance. HENT: Head: Normocephalic and atraumatic. Mouth/Throat: Mouth: Mucous membranes are moist. Pharynx: Oropharynx is clear. Eyes: Extraocular Movements: Extraocular movements intact. Pupils: Pupils are equal, round, and reactive to light. Cardiovascular: Rate and Rhythm: Normal rate and regular rhythm. Heart sounds: Normal heart sounds. No murmur heard. Pulmonary: Effort: Pulmonary effort is normal. Breath sounds: Normal breath sounds. Musculoskeletal: Cervical back: Neck supple. Lymphadenopathy: Cervical: No cervical adenopathy. Neurological: Mental Status: She is alert. An electronic signature was used to authenticate this note. Geovani Gay MD 12/08/2023 10:35 AM documented in this [facility]12-14-2023 Evaluation + Plan note* Assessment & Plan Note - Geovani Gay MD - 10/05/2023 12:38 PM EST Associated Problem(s): Acute non-recurrent pansinusitis Augmentin 875 twice daily x 10 days. Prednisone take as directed x 10 days. Mucinex, avoid decongestants. [facility] [id number] Miscellaneous Notes* Assessment & Plan Note - Geovani Gay MD - 10/05/2023 12:38 PM ESTAssociated Problem(s): Acute non- recurrent pansinusitis Augmentin 875 twice daily x 10 days. Prednisone take as directed x 10 days. Mucinex, avoid decongestants. * Assessment & Plan Note - Geovani Gay MD - 10/05/2023 12:37 PM EST Associated Problem(s): Hypertension Blood pressure was initially elevated, recheck was still little high we will have her follow-up in 1 to 2 weeks when she is feeling better. * Assessment & Plan Note - Geovani Gay MD - 10/05/2023 12:37 PM EST Associated Problem(s): Bronchitis Augmentin 875 twice daily. Prednisone use as directed. Continue inhalers and nebulizers. * Addendum Note - Geovani Gay MD - 10/05/2023 10:15 AM ESTAddended by: GEOVANI GAY on: 10/06/2023 12:48 PM Modules accepted: Level of Service documented in this [facility]12-14-2023 Evaluation + Plan note* Assessment & Plan Note - Geovani Gay MD - 10/05/2023 12:37 PM EST Associated Problem(s): Hypertension Blood pressure was initially elevated, recheck was still little high we will have her follow-up in 1 to 2 weeks when she is feeling better. [facility] [id number] Evaluation + Plan note* Assessment & Plan Note - Geovani Gay MD - 10/05/2023 12:37 PM ESTAssociated Problem(s): Bronchitis Augmentin 875 twice daily. Prednisone use as directed. Continue inhalers and nebulizers. [facility] [id number] History of Present illness Narrative* Jenelle Garcia MA - 10/05/2023 10:15 AM EST Patient was verified by name and . * Geovani Gay MD - 10/05/2023 10:15 AM EST Images from the original note were not included. 10/05/2023 Aisha Ha (: 1965) is a 58 y.o. female , Established patient, here for evaluation of thefollowing chief complaint(s): Cough (productive), URI, and Headache ASSESSMENT/PLAN: 1. Acute non-recurrent pansinusitis Assessment & Plan: Augmentin 875 twice daily x 10 days. Prednisone take as directed x 10 days. Mucinex, avoid decongestants. 2. Bronchitis Assessment & Plan: Augmentin 875 twice daily. Prednisone use as directed. Continue inhalers and nebulizers. 3. Primary hypertension Assessment & Plan: Blood pressure was initially elevated, recheck was still little high we will have her follow-up in 1 to 2 weeks when she is feeling better. Follow up if symptoms worsen or fail to improve. SUBJECTIVE/OBJECTIVE: THEO Ferreira comes in today complaining of 2-week history of sinus congestion drainage that is greenish-yellow at times, increased shortness of breath and wheezing, she is using her nebulizer and her inhaler. She does have some sinus pressure. She denies any fevers or chills. And her blood pressure is elevated today we will recheck that prior to discharge. Review of Systems Constitutional: Negative for chills and fever. HENT: Positive for congestion, rhinorrhea and sinus pressure. Negative for ear pain. Respiratory: Positive for cough, shortness of breath and wheezing. Cardiovascular: Negative for chest pain and palpitations. Vitals: 10/05/23 1001 10/05/23 1025 BP: (!) 165/78 (!) 152/83 Pulse: 86 86 Temp: 36.8 C (98.3 F) TempSrc: Oral SpO2: 96% 96% Weight: 147 lb (66.7 kg) Height: 5' (1.524 m) Physical Exam Vitals and nursing note reviewed. Constitutional: General: She is not in acute distress. Appearance: Normal appearance. HENT: Head: Normocephalic and atraumatic. Right Ear: Tympanic membrane, ear canal and external ear normal. Left Ear: Tympanic membrane, ear canal and external ear normal. Nose: Congestion and rhinorrhea present. Right Sinus: Maxillary sinus tenderness and frontal sinus tenderness present. Left Sinus: Maxillary sinus tenderness and frontal sinus tenderness present. Mouth/Throat: Mouth: Mucous membranes are moist. Pharynx: Oropharynx is clear. Eyes: Extraocular Movements: Extraocular movements intact. Pupils: Pupils are equal, round, and reactive to light. Cardiovascular: Rate and Rhythm: Normal rate and regular rhythm. Heart sounds: Normal heart sounds. No murmur heard. Pulmonary: Effort: Pulmonary effort is normal. Breath sounds: Wheezing and rhonchi present. No rales. Musculoskeletal: Cervical back: Neck supple. Lymphadenopathy: Cervical: No cervical adenopathy. Neurological: Mental Status: She is alert. An electronic signature was used to authenticate this note. Geovani Gay MD 10/06/2023 12:47 PM documented in this [facility]12-14-2023 Note* Addendum Note - Geovani Gay MD - 10/05/2023 10:15 AM ESTAddended by: GEOVANI GAY on: 10/06/2023 12:48 PM Modules accepted: Level of Service [facility] [id number] Telephone encounter Note* Telephone Encounter - GARETH Calloway CNP - 10/03/2023 12:09 PM EST Reviewed chart. Refill appropriate. RX sent. [id number] Miscellaneous Notes* Telephone Encounter - GARETH Calloway CNP - 10/03/2023 12:09 PM EST Reviewed chart. Refill appropriate. RX sent. * Telephone Encounter - Chasity Valenzuela MA - 10/03/2023 11:08 AM EST Prescription Request: Last medication check: 09/08/23 Last physical exam: 06/15/23 Next scheduled appointment: 12/08/23 Last date of refill on this medication Vitamin D 07/24/23 4 capsules 1 refill Lisinopril 06/22/23 90 days 1 refill documented in this [facility]12-12-2023 Telephone encounter Note* Telephone Encounter - Chasity Valenzuela MA - 10/03/2023 11:08 AM EST Prescription Request: Last medication check: 09/08/23 Last physical exam: 06/15/23 Next scheduled appointment: 12/08/23 Last date of refill on this medication Vitamin D 07/24/23 4 capsules 1 refill Lisinopril 06/22/23 90 days 1 refill [place] [id number] Telephone encounter Note* Telephone Encounter - Chasity Valenzuela MA - 10/03/2023 11:07 AM EST Prescription Request: Last medication check: 09/08/23 Last physical exam: 06/15/23 Next scheduled appointment: 12/08/23 Last date of refill on this medication Keppra 06/22/23 90 days 1 refill Carbamazapine 06/22/23 90 days 1 [id number] Miscellaneous Notes* Telephone Encounter - Chasity Valenzuela MA - 10/03/2023 11:07 AM EST Prescription Request: Last medication check: 09/08/23 Last physical exam: 06/15/23 Next scheduled appointment: 12/08/23 Last date of refill on this medication Keppra 06/22/23 90 days 1 refill Carbamazapine 06/22/23 90 days 1 refill documented in this encounterSKet[id number] Telephone encounter Note* Telephone Encounter - GARETH Calloway CNP - 09/22/2023 10:52 AM EST Reviewed chart. Refill appropriate. RX sent. [id number] Miscellaneous Notes* Telephone Encounter - GARETH Calloway CNP - 09/22/2023 10:52 AM EST Reviewed chart. Refill appropriate. RX sent. * Telephone Encounter - Rhina Anna Barker - 09/22/2023 10:17 AM EST Images from the original note were not included. Medication name: tiotropium (Spiriva Respimat) 2.5 MCG/ACT inhaler 3 ordered Summary: INHALE 2 PUFFS AT THE SAME TIME EVERY DAY, Normal Start: 05/22/2023 Ord/Sold: 05/22/2023 (O) Report Adh: Taking: Long-term: Pharmacy: [facility]/pharmacy #[id number] - [place], [place] - [address] Med Dose History Change Patient Sig: INHALE 2 PUFFS AT THE SAME TIME EVERY DAY Ordered on: 05/22/2023 Authorized by: ELINA EDWARDS Dispense: 1 each Prior Authorization: Request PA If this is a controlled substance do you receive this or any other controlled medication from any other doctor or facility: N/A Date of last office visit: not found Date of next office visit: 12/08/23 Date of last refill: (see medication tab): 05/22/23 Updated/Validated preferred pharmacy: Yes Patient instructed to contact the pharmacy prior to picking up the medication: Yes documented in this [facility]12-01-2023 Telephone encounter Note* Telephone Encounter - Rhina Barker - 09/22/2023 10:17 AM EST Images from the original note were not included. Medication name: tiotropium (Spiriva Respimat) 2.5 MCG/ACT inhaler 3 ordered Summary: INHALE 2 PUFFS AT THE SAME TIME EVERY DAY, Normal Start: 05/22/2023 Ord/Sold: 05/22/2023 (O) Report Adh: Taking: Long-term: Pharmacy: [facility]/pharmacy #[id number] - [place], [place] - [address] Med Dose History Change Patient Sig: INHALE 2 PUFFS AT THE SAME TIME EVERY DAY Ordered on: 05/22/2023 Authorized by: ELINA EDWARDS Dispense: 1 each Prior Authorization: Request PA If this is a controlled substance do you receive this or any other controlled medication from any other doctor or facility: N/A Date of last office visit: not found Date of next office visit: 12/08/23 Date of last refill: (see medication tab): 05/22/23 Updated/Validated preferred pharmacy: Yes Patient instructed to contact the pharmacy prior to picking up the medication: Yes [facility] [id number] Telephone encounter Note* Telephone Encounter - GARETH Calloway CNP - 09/11/2023 12:50 PM EST Reviewed chart. Refill appropriate. RX sent. [facility] [id number] Miscellaneous Notes* Telephone Encounter - GARETH Calloway CNP - 09/11/2023 12:50 PM EST Reviewed chart. Refill appropriate. RX sent. * Telephone Encounter - Jenelle Garcia MA - 09/11/2023 11:30 AM EST Prescription Request: Last medication check: 12-21-22 Last physical exam: 06-15-23 Next scheduled appointment: 12/08/23 Last date of refill on this medication 03/07/23 documented in this [facility]11-20-2023 Telephone encounter Note* Telephone Encounter - Jenelle Garcia MA - 09/11/2023 11:30 AM EST Prescription Request: Last medication check: 12-21-22 Last physical exam: 06-15-23 Next scheduled appointment: 12/08/23 Last date of refill on this medication 03/07/23 [place] [id number] Evaluation + Plan note* Assessment & Plan Note - Geovani Gay MD - 09/08/2023 11:35 AM ESTAssociated Problem(s): Anxiety Partial remission, continue Cymbalta 30 mg twice a day and Xanax as needed. [place] [id number] Evaluation + Plan note* Assessment & Plan Note - Geovani Gay MD - 09/08/2023 11:35 AM ESTAssociated Problem(s): Depression Partial remission, continue Cymbalta 30 mg twice a day [facility] [id number] Miscellaneous Notes* Assessment & Plan Note - Geovani Gay MD - 09/08/2023 11:35 AM ESTAssociated Problem(s): Anxiety Partial remission, continue Cymbalta 30 mg twice a day and Xanax as needed. * Assessment & Plan Note - Geovani Gay MD - 09/08/2023 11:35 AM EST Associated Problem(s): Depression Partial remission, continue Cymbalta 30 mg twice a day * Assessment & Plan Note - Geovani Gay MD - 09/08/2023 11:34 AM EST Associated Problem(s): Chronic nausea Uncontrolled, continue Zofran 4 mg twice a day * Assessment & Plan Note - Geovani Gay MD - 09/08/2023 11:34 AM EST Associated Problem(s): GERD (gastroesophageal reflux disease) Stable, continue omeprazole 40 mg daily * Assessment & Plan Note - Geovani Gay MD - 09/08/2023 11:33 AM EST Associated Problem(s): Hypertension Controlled, continue amlodipine 10 mg and lisinopril 20 mg and metoprolol 25 mg daily. * Assessment & Plan Note - Geovani Gay MD - 09/08/2023 11:32 AM EST Associated Problem(s): COPD (chronic obstructive pulmonary disease) (HCC) Stable, continue current inhalers, Cymbalta and 60 days 4.5, Spiriva Respimat and albuterol and DuoNeb solution for nebulizer. documented in this [facility]11-17-2023 Evaluation + Plan note* Assessment & Plan Note - Geovani Gay MD - 09/08/2023 11:34 AM EST Associated Problem(s): Chronic nausea Uncontrolled, continue Zofran 4 mg twice a day [id number] Evaluation + Plan note* Assessment & Plan Note - Geovani Gay MD - 09/08/2023 11:34 AM ESTAssociated Problem(s): GERD (gastroesophageal reflux disease) Stable, continue omeprazole 40 mg daily [place] [id number] Evaluation + Plan note* Assessment & Plan Note - Geovani Gay MD - 09/08/2023 11:33 AM ESTAssociated Problem(s): Hypertension Controlled, continue amlodipine 10 mg and lisinopril 20 mg and metoprolol 25 mg daily. [id number] Evaluation + Plan note* Assessment & Plan Note - Geovani Gay MD - 09/08/2023 11:32 AM ESTAssociated Problem(s): COPD (chronic obstructive pulmonary disease) (HCC) Stable, continue current inhalers, Cymbalta and 60 days 4.5, Spiriva Respimat and albuterol and DuoNeb solution for nebulizer. [place] [id number] History of Present illness Narrative* Karolina Gil MA - 09/08/2023 9:45 AM EST Patient verified by last name and date of . * Geovani Gay MD - 09/08/2023 9:45 AM EST Images from the original note were not included. 09/08/2023 Aisha Ha (: 1965) is a 58 y.o. female , Established patient, here for evaluation of thefollowing chief complaint(s): COPD, hypoxemia, Follow-up (Started oxygen 2.5L//Pt thinks she has lung cancer ), and Health Maintenance (Flu vaccine- pt requested ) ASSESSMENT/PLAN: 1. Chronic obstructive pulmonary disease, unspecified COPD type (HCC) Assessment & Plan: Stable, continue current inhalers, Cymbalta and 60 days 4.5, Spiriva Respimat and albuterol and DuoNeb solution for nebulizer. 2. Primary hypertension Assessment & Plan: Controlled, continue amlodipine 10 mg and lisinopril 20 mg and metoprolol 25 mg daily. 3. Gastroesophageal reflux disease without esophagitis Assessment & Plan: Stable, continue omeprazole 40 mg daily 4. Chronic nausea Assessment & Plan: Uncontrolled, continue Zofran 4 mg twice a day 5. Current mild episode of major depressive disorder, unspecified whether recurrent ([facility]) Assessment & Plan: Partial remission, continue Cymbalta 30 mg twice a day 6. Anxiety Assessment & Plan: Partial remission, continue Cymbalta 30 mg twice a day and Xanax as needed. Follow up in about 6 months (around 03/08/2024). SUBJECTIVE/OBJECTIVE: THEO Suresh comes in today for 6-month follow-up on her COPD which seems to be stable at this time she continues to use her 3 inhalers and she is on oxygen 2- 1/2 L except when she is active then she increases it to 3-4. Blood pressure looks good today, she continues to have her chronic nausea and her depression and anxiety seem to be fairly well controlled on her current medications. Review of Systems Constitutional: Negative for chills and fever. Respiratory: Negative for shortness of breath. Cardiovascular: Negative for chest pain and palpitations. Gastrointestinal: Negative for abdominal pain, blood in stool, constipation and diarrhea. Genitourinary: Negative for dysuria, frequency, hematuria and urgency. Neurological: Negative for weakness and numbness. Psychiatric/Behavioral: Negative for dysphoric mood. The patient is not nervous/anxious. Vitals: 09/08/23 0939 BP: 127/73 Pulse: 77 SpO2: 97% Weight: 146 lb (66.2 kg) Height: 5' (1.524 m) Physical Exam Vitals and nursing note reviewed. Constitutional: General: She is not in acute distress. Appearance: Normal appearance. HENT: Head: Normocephalic and atraumatic. Mouth/Throat: Mouth: Mucous membranes are moist. Pharynx: Oropharynx is clear. Eyes: Extraocular Movements: Extraocular movements intact. Pupils: Pupils are equal, round, and reactive to light. Cardiovascular: Rate and Rhythm: Normal rate and regular rhythm. Heart sounds: Normal heart sounds. No murmur heard. Pulmonary: Effort: Pulmonary effort is normal. Breath sounds: Wheezing and rhonchi present. Musculoskeletal: Cervical back: Neck supple. Lymphadenopathy: Cervical: No cervical adenopathy. Neurological: Mental Status: She is alert. Psychiatric: Mood and Affect: Mood normal. Behavior: Behavior normal. Thought Content: Thought content normal. Judgment: Judgment normal. An electronic signature was used to authenticate this note. Geovani Gay MD 09/08/2023 11:36 AM * Jenelle Garcia MA - 09/08/2023 9:45 AM EST Patient was verified by name and . After obtaining consent, and per orders of Dr. Gay, injection of flu vaccine given in right deltoid by Jenelle Garcia. Patient instructed to report any adverse reaction immediately. documented in this [facility]10-26-2023 Telephone encounter Note* Telephone Encounter - GARETH Calloway CNP - 08/17/2023 4:48 PM EDT Reviewed chart. Refill appropriate. RX sent. [facility] [id number] Miscellaneous Notes* Telephone Encounter - GARETH Calloway CNP - 08/17/2023 4:48 PM EDT Reviewed chart. Refill appropriate. RX sent. * Telephone Encounter - Jenelle Garcia MA - 08/17/2023 3:02 PM EDT Prescription Request: Last medication check: 12-21-22 Last physical exam: 06-15-23 Next scheduled appointment: 09-04-23 Last date of refill on this medication 12/22/22 documented in this [facility]10-26-2023 Telephone encounter Note* Telephone Encounter - Jenelle Garcia MA - 08/17/2023 3:02 PM EDT Prescription Request: Last medication check: 12-21-22 Last physical exam: 06-15-23 Next scheduled appointment: 09-04-23 Last date of refill on this medication 12/22/22 [id number] Telephone encounter Note* Telephone Encounter - GARETH Calloway CNP - 07/24/2023 3:46 PM EDT Reviewed chart. Refill appropriate. RX sent. [place] [id number] Miscellaneous Notes* Telephone Encounter - GARETH Calloway CNP - 07/24/2023 3:46 PM EDT Reviewed chart. Refill appropriate. RX sent. * Telephone Encounter - Mirella Sanders - 07/24/2023 2:45 PM EDT Prescription Request: Last medication check: 12-21-22 Last physical exam: 06-15-23 Next scheduled appointment: 09-04-23 Last date of refill on this medication 01-30-23 [id number] Telephone encounter Note* Telephone Encounter - GARETH Calloway CNP - 07/24/2023 3:45 PM EDT Reviewed chart. Refill appropriate. RX sent. [place] [id number] Miscellaneous Notes* Telephone Encounter - GARETH Calloway CNP - 07/24/2023 3:45 PM EDT Reviewed chart. Refill appropriate. RX sent. * Telephone Encounter - Mirella Sanders - 07/24/2023 2:49 PM EDT Prescription Request: Last medication check: 12-21-22 Last physical exam: 06-15-23 Next scheduled appointment: 09-04-23 Last date of refill on this medication 04-17-23 documented in this [facility]10-02-2023 Telephone encounter Note* Telephone Encounter - Mirella Sanders - 07/24/2023 2:49 PM EDT Prescription Request: Last medication check: 12-21-22 Last physical exam: 06-15-23 Next scheduled appointment: 09-04-23 Last date of refill on this medication 04-17-23 [id number] Telephone encounter Note* Telephone Encounter - Mirella Sanders - 07/24/2023 2:45 PM EDT Prescription Request: Last medication check: 12-21-22 Last physical exam: 06-15-23 Next scheduled appointment: 09-04-23 Last date of refill on this medication 01-30-23 [id number] Telephone encounter Note* Telephone Encounter - GARETH Calloway CNP - 06/22/2023 11:49 AM EDT Reviewed chart. Refill appropriate. RX sent. [facility] [id number] Miscellaneous Notes* Telephone Encounter - GARETH Calloway CNP - 06/22/2023 11:49 AM EDT Reviewed chart. Refill appropriate. RX sent. * Telephone Encounter - Dania Trinidad - 06/22/2023 10:10 AM EDT Prescription Request: Last medication check: 09/07/22 Last physical exam: 06/15/23 Next scheduled appointment: 09/04/23 documented in this [place] [id number] Telephone encounter Note* Telephone Encounter - Dania Trinidad - 06/22/2023 10:10 AM EDT Prescription Request: Last medication check: 09/07/22 Last physical exam: 06/15/23 Next scheduled appointment: 09/04/23 [place] [id number] Telephone encounter Note* Telephone Encounter - Dania Trinidad - 06/22/2023 10:06 AM EDT Prescription Request: Last medication check: 09/07/22 Last physical exam: 06/15/23 Next scheduled appointment: 09/04/23 [place] [id number] Miscellaneous Notes* Telephone Encounter - Dania Trinidad - 06/22/2023 10:06 AM EDT Prescription Request: Last medication check: 09/07/22 Last physical exam: 06/15/23 Next scheduled appointment: 09/04/23 documented in this [place] [id number] Telephone encounter Note* Telephone Encounter - Chasity Valenzuela MA - 06/19/2023 2:40 PM EDT [address]. [id number] Miscellaneous Notes* Telephone Encounter - Chasity Valenzuela MA - 06/19/2023 2:40 PM EDT Patient scheduled. * Telephone Encounter - GARETH Fragoso CNP - 06/19/2023 12:42 PM EDT Rx sent. Due for follow up in August- please schedule. * Telephone Encounter - Chasity Valenzuela MA - 06/19/2023 11:18 AM EDT Prescription Request: Last medication check: 12/21/22 Last physical exam: 06/15/23 Next scheduled appointment: none Last date of refill on this medication 12/22/22 10.5g 5 refills documented in this [facility]SK[id number] Telephone encounter Note* Telephone Encounter - GARETH Fragoso CNP - 06/19/2023 12:42 PM EDT Rx sent. Due for follow up in August- please schedule. [place] [id number] Telephone encounter Note* Telephone Encounter - Chasity Valenzuela MA - 06/19/2023 11:18 AM EDT Prescription Request: Last medication check: 12/21/22 Last physical exam: 06/15/23 Next scheduled appointment: none Last date of refill on this medication 12/22/22 10.5g 5 refills [place] [id number] Evaluation + Plan note* Assessment & Plan Note - Geovani Gay MD - 06/15/2023 10:42 AM EDTAssociated Problem(s): Hypoxemia Patient was initially 88% on oxygen when she was initially roomed, while we walked her she dropped to 85% we put oxygen on her she went up to 94%. We will contact DME supplier and see if we can get her set up with oxygen [employer] [facility] [id number] Evaluation + Plan note* Assessment & Plan Note - Geovani Gay MD - 06/15/2023 10:42 AM EDTAssociated Problem(s): Hyperlipidemia Controlled, continue a atorvastatin 80 mg daily T [facility] [id number] Evaluation + Plan note* Assessment & Plan Note - Geovani Gay MD - 06/15/2023 10:42 AM EDTAssociated Problem(s): Depression Partial remission, follow-up with psychiatry as scheduled T [place] [id number] Evaluation + Plan note* Assessment & Plan Note - Geovani Gay MD - 06/15/2023 10:42 AM EDTAssociated Problem(s): Current smoker Discussed smoking cessation and especially if she will be on oxygen she cannot smoke. She agrees. [place] [id number] Miscellaneous Notes* Assessment & Plan Note - Geovani Gay MD - 06/15/2023 10:42 AM EDTAssociated Problem(s): Hypoxemia Patient was initially 88% on oxygen when she was initially roomed, while we walked her she dropped to 85% we put oxygen on her she went up to 94%. We will contact DME supplier and see if we can get her set up with oxygen [employer] * Assessment & Plan Note - Geovani Gay MD - 06/15/2023 10:42 AM EDT Associated Problem(s): Hyperlipidemia Controlled, continue a atorvastatin 80 mg daily * Assessment & Plan Note - Geovani Gay MD - 06/15/2023 10:42 AM EDT Associated Problem(s): Depression Partial remission, follow-up with psychiatry as scheduled * Assessment & Plan Note - Geovani Gay MD - 06/15/2023 10:42 AM EDT Associated Problem(s): Current smoker Discussed smoking cessation and especially if she will be on oxygen she cannot smoke. She agrees. * Assessment & Plan Note - Geovani Gay MD - 06/15/2023 10:41 AM EDT Associated Problem(s): Anxiety Stable, currently off of BuSpar continue Xanax as needed follow-up with psychiatry as needed. * Assessment & Plan Note - Geovani Gay MD - 06/15/2023 10:41 AM EDT Associated Problem(s): Vitamin D deficiency Stable, continue vitamin D 50,000 units weekly * Assessment & Plan Note - Geovani Gay MD - 06/15/2023 10:40 AM EDT Associated Problem(s): Fibromyalgia Stable, continue Cymbalta 30 mg twice a day * Assessment & Plan Note - Geovani Gay MD - 06/15/2023 10:40 AM EDT Associated Problem(s): Hypertension Blood pressure was initially elevated, recheck was normal continue metoprolol 25 mg daily and lisinopril 20 mg daily and amlodipine 10 mg daily * Assessment & Plan Note - Geovani Gay MD - 06/15/2023 10:39 AM EDT Associated Problem(s): COPD (chronic obstructive pulmonary disease) (HCC) Stable, continue Symbicort 160/4.5, Spiriva 2.5 mcg and albuterol as needed. We will check her oxygen saturation walking and then with oxygen on to see if she qualifies for oxygen. * Assessment & Plan Note - Geovani Gay MD - 06/15/2023 10:38 AM EDT Associated Problem(s): Asthma Stable, currently using Symbicort 160/4.5, Spiriva 2.5 mcg and albuterol as needed. * Assessment & Plan Note - Geovani Gay MD - 06/15/2023 10:38 AM EDT Associated Problem(s): Seizure disorder (CMS/HCC) (HCC) Stable, continue Keppra and Tegretol at current doses, follow-up with neurology as scheduled. documented in this [facility]08-24-2023 Evaluation + Plan note* Assessment & Plan Note - Geovani Gay MD - 06/15/2023 10:41 AM EDT Associated Problem(s): Anxiety Stable, currently off of BuSpar continue Xanax as needed follow-up with psychiatry as needed. [facility] [id number] Evaluation + Plan note* Assessment & Plan Note - Geovani Gay MD - 06/15/2023 10:41 AM EDTAssociated Problem(s): Vitamin D deficiency Stable, continue vitamin D 50,000 units weekly [facility] [id number] Evaluation + Plan note* Assessment & Plan Note - Geovani Gay MD - 06/15/2023 10:40 AM EDTAssociated Problem(s): Fibromyalgia Stable, continue Cymbalta 30 mg twice a day [facility] [id number] Evaluation + Plan note* Assessment & Plan Note - Geovani Gay MD - 06/15/2023 10:40 AM EDTAssociated Problem(s): Hypertension Blood pressure was initially elevated, recheck was normal continue metoprolol 25 mg daily and lisinopril 20 mg daily and amlodipine 10 mg daily [place] [id number] Evaluation + Plan note* Assessment & Plan Note - Geovani Gay MD - 06/15/2023 10:39 AM EDTAssociated Problem(s): COPD (chronic obstructive pulmonary disease) (HCC) Stable, continue Symbicort 160/4.5, Spiriva 2.5 mcg and albuterol as needed. We will check her oxygen saturation walking and then with oxygen on to see if she qualifies for oxygen. [facility] [id number] Evaluation + Plan note* Assessment & Plan Note - Geovani Gay MD - 06/15/2023 10:38 AM EDTAssociated Problem(s): Asthma Stable, currently using Symbicort 160/4.5, Spiriva 2.5 mcg and albuterol as needed. [facility] [id number] Evaluation + Plan note* Assessment & Plan Note - Geovani Gay MD - 06/15/2023 10:38 AM EDTAssociated Problem(s): Seizure disorder (CMS/HCC) (HCC) Stable, continue Keppra and Tegretol at current doses, follow-up with neurology as scheduled. [facility] [id number] History of Present illness Narrative* Karolina Gil MA - 06/15/2023 9:30 AM EDT Patient verified by last name and date of . * Geovani Gay MD - 06/15/2023 9:30 AM EDT Images from the original note were not included. 06/15/2023 Aisha Ha (: 1965) is a 58 y.o. female , Established patient, here for evaluation of thefollowing chief complaint(s): Gynecologic Exam (Pt not ready for pap today ), Health Maintenance ([employer]- wants this but I am unable to verify coverage on [employer] website/[id number]/Had 3 COVID vaccines/TDAP/TD-declines, doesn't think insurance will pay for it), and Blood Work ASSESSMENT/PLAN: 1. Annual physical exam 2. Seizure disorder (CMS/HCC) (HCC) Assessment & Plan: Stable, continue Keppra and Tegretol at current doses, follow-up with neurology as scheduled. 3. Moderate asthma, unspecified whether complicated, unspecified whether persistent Assessment & Plan: Stable, currently using Symbicort 160/4.5, Spiriva 2.5 mcg and albuterol as needed. 4. Chronic obstructive pulmonary disease, unspecified COPD type (HCC) Assessment & Plan: Stable, continue Symbicort 160/4.5, Spiriva 2.5 mcg and albuterol as needed. We will check her oxygen saturation walking and then with oxygen on to see if she qualifies for oxygen. 5. Primary hypertension Assessment & Plan: Blood pressure was initially elevated, recheck was normal continue metoprolol 25 mg daily and lisinopril 20 mg daily and amlodipine 10 mg daily 6. Fibromyalgia Assessment & Plan: Stable, continue Cymbalta 30 mg twice a day 7. Vitamin D deficiency Assessment & Plan: Stable, continue vitamin D 50,000 units weekly 8. Anxiety Assessment & Plan: Stable, currently off of BuSpar continue Xanax as needed follow-up with psychiatry as needed. 9. Current mild episode of major depressive disorder, unspecified whether recurrent (HCC) Assessment & Plan: Partial remission, follow-up with psychiatry as scheduled 10. Mixed hyperlipidemia Assessment & Plan: Controlled, continue a atorvastatin 80 mg daily Orders: - Lipid panel 11. Current smoker Assessment & Plan: Discussed smoking cessation and especially if she will be on oxygen she cannot smoke. She agrees. 12. Hypoxemia Assessment & Plan: Patient was initially 88% on oxygen when she was initially roomed, while we walked her she dropped to 85% we put oxygen on her she went up to 94%. We will contact DME supplier and see if we can get her set up with oxygen [employer] 13. Screening for diabetes mellitus - Comprehensive metabolic panel 14. Encounter for screening mammogram for malignant neoplasm of breast - Bilateral screening mammogram 15. Need for pneumococcal vaccination - Pneumococcal polysaccharide vaccine 23-valent greater than or equal to 2 years old subcutaneous/IM Follow up in about 3 months (around 09/15/2023). SUBJECTIVE/OBJECTIVE: THEO -Aisha comes in today for her annual exam, she is refusing a Pap test today says she was not expecting it. When she comes in her oxygen level is 88% when she sits down so we will check her oxygen with ambulation and with oxygen on to see how well she qualifies. She is also here for follow-up on her COPD, asthma, hypertension, blood pressure is slightly elevated today we will recheck it prior to discharge.. Also being seen for her anxiety and depression which is being managed by her psychiatrist, her hyperlipidemia her fibromyalgia and her vitamin D deficiency. She continues to smoke on a regular basis and we discussed smoking cessation. Review of Systems Constitutional: Negative for chills and fever. Respiratory: Negative for shortness of breath. Cardiovascular: Negative for chest pain and palpitations. Gastrointestinal: Negative for abdominal pain, blood in stool, constipation and diarrhea. Genitourinary: Negative for dyspareunia, dysuria, frequency, hematuria and urgency. Neurological: Negative for weakness and numbness. Psychiatric/Behavioral: Negative for dysphoric mood. The patient is not nervous/anxious. Vitals: 06/15/23 0919 06/15/23 0957 BP: (!) 151/66 128/60 Pulse: 77 77 SpO2: (!) 88% 90% Weight: 149 lb 6.4 oz (67.8 kg) Height: 5' (1.524 m) Physical Exam Vitals and nursing note reviewed. Constitutional: General: She is not in acute distress. Appearance: Normal appearance. She is obese. HENT: Head: Normocephalic. Right Ear: Tympanic membrane, ear canal and external ear normal. Left Ear: Tympanic membrane, ear canal and external ear normal. Mouth/Throat: Mouth: Mucous membranes are moist. Pharynx: Oropharynx is clear. Eyes: Extraocular Movements: Extraocular movements intact. Pupils: Pupils are equal, round, and reactive to light. Neck: Vascular: No carotid bruit. Cardiovascular: Rate and Rhythm: Normal rate and regular rhythm. Heart sounds: Normal heart sounds. No murmur heard. Pulmonary: Effort: Pulmonary effort is normal. Breath sounds: Normal breath sounds. Abdominal: General: Bowel sounds are normal. Palpations: Abdomen is soft. Musculoskeletal: General: Normal range of motion. Cervical back: Normal range of motion. Lymphadenopathy: Cervical: No cervical adenopathy. Skin: General: Skin is warm and dry. Neurological: General: No focal deficit present. Mental Status: She is alert and oriented to person, place, and time. Psychiatric: Mood and Affect: Mood normal. An electronic signature was used to authenticate this note. Geovani Gay MD 06/15/2023 10:44 AM * Chasity Valenzuela MA - 06/15/2023 9:30 AM EDT Did a walking o2 test: O2 upon arrival 88% 1 minute: 89% 2 minutes: 87% 3 minutes 85% Applied 2 L of oxygen and within 2 minutes O2 was up to 94% without fluctuation * Chasity Valenzuela MA - 06/15/2023 9:30 AM EDT After obtaining consent, and per orders of Dr Gay, injection of 0.5ml pneumovax 23 given in right deltoid by Chasity Valenzuela. Patient instructed to report any adverse reaction immediately. documented in this [facility]SK[facility]burgRiaxzy14-41-0822 Telephone encounter Note* Telephone Encounter - GARETH Calloway CNP - 05/22/2023 2:09 PM EDT Reviewed chart. Refill not appropriate, too soon. RX refused [id number] Miscellaneous Notes* Telephone Encounter - GARETH Calloway CNP - 05/22/2023 2:09 PM EDT Reviewed chart. Refill not appropriate, too soon. RX refused * Telephone Encounter - Dania Trinidad - 05/22/2023 10:54 AM EDT Prescription Request: Last medication check: 12/21/22 Last physical exam: 06/13/22 Next scheduled appointment: 06/15/23 Last date of refill on this medication 12/22/22 documented in this [facility]07-31-2023 Telephone encounter Note* Telephone Encounter - GARETH Calloway CNP - 05/22/2023 11:07 AM EDT Reviewed chart. Refill appropriate. RX sent. [place] [id number] Miscellaneous Notes* Telephone Encounter - GARETH Calloway CNP - 05/22/2023 11:07 AM EDT Reviewed chart. Refill appropriate. RX sent. * Telephone Encounter - Dania Trinidad - 05/22/2023 10:53 AM EDT Prescription Request: Last medication check: 12/21/22 Last physical exam: 06/13/22 Next scheduled appointment: 06/15/23 Last date of refill on this medication 01/30/23 documented in this [place] [id number] Telephone encounter Note* Telephone Encounter - Dania Trinidad - 05/22/2023 10:54 AM EDT Prescription Request: Last medication check: 12/21/22 Last physical exam: 06/13/22 Next scheduled appointment: 06/15/23 Last date of refill on this medication 12/22/22 [place] [id number] Telephone encounter Note* Telephone Encounter - Dania Trinidad - 05/22/2023 10:53 AM EDT Prescription Request: Last medication check: 12/21/22 Last physical exam: 06/13/22 Next scheduled appointment: 06/15/23 Last date of refill on this medication 01/30/23 [facility]dj[facility] Telephone encounter Note* Telephone Encounter - GARETH Fragoso CNP - 05/08/2023 9:45 AM EDT Rx sent for Zofran. Lisinopril should not be due for refill until June. [place] [id number] Miscellaneous Notes* Telephone Encounter - GARETH Fragoso CNP - 05/08/2023 9:45 AM EDT Rx sent for Zofran. Lisinopril should not be due for refill until June. * Telephone Encounter - Mirella Sanders - 05/08/2023 9:29 AM EDT Prescription Request: Last medication check: 12-21-22 Last physical exam: 06-13-22 Next scheduled appointment: 06-15-23 Last date of refill on this medication Zofran 11-15-22 Lisinopril 12-22-22 documented in this encounterSK[facility]burgZpholm45-54-1866 Telephone encounter Note* Telephone Encounter - Mirella Sanders - 05/08/2023 9:29 AM EDT Prescription Request: Last medication check: 12-21-22 Last physical exam: 06-13-22 Next scheduled appointment: 06-15-23 Last date of refill on this medication Zofran 11-15-22 Lisinopril 12-22-22 [id number] Telephone encounter Note* Telephone Encounter - GARETH Fragoso CNP - 04/17/2023 12:59 PM EDT Rx sent. Follow up as scheduled. [id number] Miscellaneous Notes* Telephone Encounter - GARETH Fragoso CNP - 04/17/2023 12:59 PM EDT Rx sent. Follow up as scheduled. * Telephone Encounter - Jenelle Garcia MA - 04/17/2023 11:04 AM EDT Prescription Request: Last medication check: 12/21/22 Last physical exam: 06/13/22 Next scheduled appointment: 06/15/23 Last date of refill on this medication 01/11/23 documented in this encounterSK[facility]burgQkiswj00-85-9589 Telephone encounter Note* Telephone Encounter - Jenelle Garcia MA - 04/17/2023 11:04 AM EDT Prescription Request: Last medication check: 12/21/22 Last physical exam: 06/13/22 Next scheduled appointment: 06/15/23 Last date of refill on this medication 01/11/23 [id number] Telephone encounter Note* Telephone Encounter - GARETH Calloway CNP - 03/01/2023 7:29 AM EDT Reviewed chart. Refill appropriate. RX sent. [facility] HospitalKuigew48-25-1131 Miscellaneous Notes* Telephone Encounter - GARETH Calloway CNP - 03/01/2023 7:29 AM EDT Reviewed chart. Refill appropriate. RX sent. * Telephone Encounter - Karolina Gil MA - 03/01/2023 6:57 AM EDT Prescription Request: Last medication check: 12/21/22 Last physical exam: none Next scheduled appointment: 06/15/23 CSA on file (date): na Last urine drug screen: na Last date of refill on this medication 09/19/22 90 day 1 refill on both meds documented in this encounterSKettering [facility] [id number] Telephone encounter Note* Telephone Encounter - Karolina Gil MA - 03/01/2023 6:57 AM EDT Prescription Request: Last medication check: 12/21/22 Last physical exam: none Next scheduled appointment: 06/15/23 CSA on file (date): na Last urine drug screen: na Last date of refill on this medication 09/19/22 90 day 1 refill on both meds [facility]Ygffrw03-07-8483 Telephone encounter Note* Telephone Encounter - GARETH Calloway CNP - 01/30/2023 10:50 AM EDT Reviewed chart. Refill appropriate. RX sent. [facility] [id number] Miscellaneous Notes* Telephone Encounter - GARETH Calloway CNP - 01/30/2023 10:50 AM EDT Reviewed chart. Refill appropriate. RX sent. * Telephone Encounter - Jenelle Garcia MA - 01/30/2023 9:37 AM EDT Prescription Request: Last medication check: 12/21/22 Last physical exam: 06/13/22 Next scheduled appointment: 06/15/23 Last date of refill on this medication: 10/27/22 documented in this [place] [id number] Telephone encounter Note* Telephone Encounter - GARETH Calloway CNP - 01/30/2023 10:48 AM EDT Reviewed chart. Refill appropriate. RX sent. [facility] HospitalUkdrjd36-12-0904 Miscellaneous Notes* Telephone Encounter - GARETH Calloway CNP - 01/30/2023 10:48 AM EDT Reviewed chart. Refill appropriate. RX sent. * Telephone Encounter - Jenelle Garcia MA - 01/30/2023 9:36 AM EDT Prescription Request: Last medication check: 12/21/22 Last physical exam: 06/13/22 Next scheduled appointment: 06/15/23 Last date of refill on this medication: 09/19/22 documented in this [place] [id number] Telephone encounter Note* Telephone Encounter - Jenelle Garcia MA - 01/30/2023 9:37 AM EDT Prescription Request: Last medication check: 12/21/22 Last physical exam: 06/13/22 Next scheduled appointment: 06/15/23 Last date of refill on this medication: 10/27/22 [facility]Phpsuj25-06-6261 Telephone encounter Note* Telephone Encounter - Jenelle Garcia MA - 01/30/2023 9:36 AM EDT Prescription Request: Last medication check: 12/21/22 Last physical exam: 06/13/22 Next scheduled appointment: 06/15/23 Last date of refill on this medication: 09/19/22 [facility]Fstimc60-43-5296 Telephone encounter Note* Telephone Encounter - Jenelle Garcia MA - 01/11/2023 2:22 PM EDT Prescription Request: Last medication check: yesterday Last physical exam: 06/13/22 Next scheduled appointment: 06/15/22 Last date of refill on this medication 12/14/22 [facility]Ipvdxb58-23-0300 Miscellaneous Notes* Telephone Encounter - Jenelle Garcia MA - 01/11/2023 2:22 PM EDT Prescription Request: Last medication check: yesterday Last physical exam: 06/13/22 Next scheduled appointment: 06/15/22 Last date of refill on this medication 12/14/22 documented in this encounterSKettering Health MiamisburgFswnqu32-35-8951 Procedure [facility]03-13-2023 Procedure [facility]03-13-2023 Procedure [facility]03-13-2023 Procedure [facility]03-13-2023 History and physical note Author Cal Friend [facility] January 02, 2023 9:00am Note Date/Time January 02, 2023 9:0 0[facility] Medical Records Department [address] [place] [address] History & Physical Exam 01/02/23 0900 MR#: [id number] Acct: [id number] Name: AISHA HA Rep #:[id number] : 1965 57 From: Cal Friend PCP: Dr. Geovani Gay MD Status:[facility] Location: [place] [address] History and Physical Date of Admission: 01/02/23 Chief Complaint: wants colonoscopy Details: AISHA HA, is a 57 F who presents to the office today requesting a colonoscopyfor hx of colon polyps. She reports hx of numerous polyps, is overdue for colonoscopy. She had EGD in 06/2021 by general surgeon--chronic gastritis, negative Millard's. She has chronic nausea and frequent diarrhea but states she isn't hear today to address those, just interested in scheduling colonoscopy. She states she knows her GI symptoms are probably due to her drinking: I'm an alcoholic. Had cholecystectomy 04/2022 in [place], no change in GI symptoms after surgery.Takes ondansetron for chronic nausea.? No heartburn. On PPI therapy. Has decreased appetite, early satiety. Intermittent diarrhea, 2x per day, yellow balls in her stool. No melena or hematochezia. No abd pain. ROS Const Constitutional: Positive for headache(s); No fatigue ENT ENT: Positive for headache(s); No difficulty swallowing Cardio Cardiology: Positive for leg pain with exertion Gastro GI: No abdominal pain, belching, bloating, change in bowel habits, change in stool character, coffee ground emesis, constipation, cramping, diarrhea, heartburn, difficulty swallowing, feeling full early, excessive flatus, incontinent of stools, Vomiting blood/hematemesis, Blood in stool, loose stools,Black,tarry stools, nausea/dyspepsia, pain with swallowing, vomiting or other Musc Musculoskeletal: Positive for abnormal gait, joint pain, back pain, joint swelling, muscle cramps, muscle weakness, stiffness, Arthritis and leg pain withexertion Skin Skin: No yellowing of the eye or itchy eyes Neuro Neurology: Positive for abnormal gait, dizziness, headache(s), tremor(s) and seizures Psych Psychiatric: Positive for anxiety, Positive for depression and Positive for paranoia Endo Endocrine: No fatigue Aller/Imm Allergy/Immunologic: No itchy eyes Case/Lymp Hematologic/Lymphatic: Positive for easy bruising; No easy bleeding Exam Const General: cooperative and anxious Orientation: alert, awake and oriented x3 Other: in wheelchair Eyes Sclera: sclerae normal Resp Effort & Inspection: normal respiratory effort Skin General: no jaundice Quality Reporting Tobacco Screening ([facility] 138) Smoking Status: Current every day smoker Assessment and Plan Assessment and Plan (1) Colon polyps: ?Status:?Acute ?Plan: 57 yr old female with hx colon polyps, GERD, chronic nausea, and alcoholism willbe scheduled for EGD to evaluate for esophagitis, Millard's, varices, gastropathy, peptic ulcer disease and colonoscopy due to history of colon polyps.? She will have follow-up in the office 2 weeks afterwards to review biopsy results.? She states she is not interested in help with quitting alcohol. (2) Nausea: ?Status:?Acute ?Plan: see above (3) Gastric reflux: ?Status:?Acute ?Plan: see above (4) Alcohol use disorder: ?Status:?Acute ?Plan: see above ? ? ? Medications: Discontinued promethazine ?? Discontinued Reason:? Pt no longer takingG 25 mg? PO TID PRN 10 tabs 0RF nausea and vomiting ? ? I have examined the patient and the H&P has been reviewed. There are no clinicalchanges since date of exam. 14101/02/23 0900 <Electronically signed by Cal Bahena DO> Cosigner Signature (if applicable): CC: Dr. Geovani Gay MD; Cal Bahena DO~ Signed [facility] Work Phone: 1(300) 457-525803-02-2023 Telephone encounter Note* Telephone Encounter - Dania Trinidad - 12/22/2022 12:02 PM EST Prescription Request: Last medication check: yesterday Last physical exam: 06/13/22 Next scheduled appointment: 06/15/22 Last date of refill on this medication Metoprolol 09/19/22 Symbicort 06/22/22 Norvasc 09/19/22 Lipitor 09/19/22 [facility] HospitalNujird68-07-9498 Miscellaneous Notes* Telephone Encounter - Dania Trinidad - 12/22/2022 12:02 PM EST Prescription Request: Last medication check: yesterday Last physical exam: 06/13/22 Next scheduled appointment: 06/15/22 Last date of refill on this medication Metoprolol 09/19/22 Symbicort 06/22/22 Norvasc 09/19/22 Lipitor 09/19/22 documented in this [facility]03-02-2023 Telephone encounter Note* Telephone Encounter - Dania Trinidad - 12/22/2022 12:01 PM EST Prescription Request: Last medication check: yesterday Last physical exam: 06/13/22 Next scheduled appointment: 06/15/22 Last date of refill on this medication 05/30/22 [place] [id number] Miscellaneous Notes* Telephone Encounter - Dania Trinidad - 12/22/2022 12:01 PM EST Prescription Request: Last medication check: yesterday Last physical exam: 06/13/22 Next scheduled appointment: 06/15/22 Last date of refill on this medication 05/30/22 documented in this [facility]03-01-2023 Evaluation + Plan note* Assessment & Plan Note - Geovani Gay MD - 12/21/2022 5:21 PM EST Associated Problem(s): Hyperlipidemia Controlled, continue atorvastatin 80 mg daily [facility]Ogawfz50-00-1481 Miscellaneous Notes* Assessment & Plan Note - Geovani Gay MD - 12/21/2022 5:21 PM ESTAssociated Problem(s): Hyperlipidemia Controlled, continue atorvastatin 80 mg daily * Assessment & Plan Note - Geovani Gay MD - 12/21/2022 5:20 PM EST Associated Problem(s): Anxiety Stable, continue BuSpar 20 mg 3 times a day and Xanax as needed * Assessment & Plan Note - Geovani Gay MD - 12/21/2022 5:19 PM EST Associated Problem(s): Depression Partial remission, continue Lexapro 20 mg daily * Assessment & Plan Note - Geovani Gay MD - 12/21/2022 5:19 PM EST Associated Problem(s): GERD (gastroesophageal reflux disease) Controlled, continue omeprazole 40 mg daily * Assessment & Plan Note - Geovani Gay MD - 12/21/2022 5:18 PM EST Associated Problem(s): Hypertension Controlled, continue metoprolol 25 mg daily, lisinopril 20 mg twice a day and amlodipine 10 mg daily * Assessment & Plan Note - Geovani Gay MD - 12/21/2022 5:17 PM EST Associated Problem(s): COPD (chronic obstructive pulmonary disease) (HCC) Stable, continue Symbicort, Spiriva Respimat and albuterol and stop smoking. * Assessment & Plan Note - Geovani Gay MD - 12/21/2022 5:17 PM EST Associated Problem(s): Seizure disorder (CMS/HCC) (HCC) Stable, continue Tegretol 200 mg twice a day and Keppra 500 mg daily. documented in this [facility]03-01-2023 Evaluation + Plan note* Assessment & Plan Note - Geovani Gay MD - 12/21/2022 5:20 PM EST Associated Problem(s): Anxiety Stable, continue BuSpar 20 mg 3 times a day and Xanax as needed [facility]Nbowtn21-35-2132 Evaluation + Plan note* Assessment & Plan Note - Geovani Gay MD - 12/21/2022 5:19 PM ESTAssociated Problem(s): Depression Partial remission, continue Lexapro 20 mg daily [facility] HospitalPuaunz39-01-7481 Evaluation + Plan note* Assessment & Plan Note - Geovani Gay MD - 12/21/2022 5:19 PM ESTAssociated Problem(s): GERD (gastroesophageal reflux disease) Controlled, continue omeprazole 40 mg daily [facility] HospitalZmzpeq75-51-8418 Evaluation + Plan note* Assessment & Plan Note - Geovani Gay MD - 12/21/2022 5:18 PM ESTAssociated Problem(s): Hypertension Controlled, continue metoprolol 25 mg daily, lisinopril 20 mg twice a day and amlodipine 10 mg daily [facility] HospitalRzbwzm76-17-4224 Evaluation + Plan note* Assessment & Plan Note - Geovani Gay MD - 12/21/2022 5:17 PM ESTAssociated Problem(s): COPD (chronic obstructive pulmonary disease) (HCC) Stable, continue Symbicort, Spiriva Respimat and albuterol and stop smoking. [facility] HospitalXhuyph56-08-2534 Evaluation + Plan note* Assessment & Plan Note - Geovani Gay MD - 12/21/2022 5:17 PM ESTAssociated Problem(s): Seizure disorder (CMS/HCC) ([facility]) Stable, continue Tegretol 200 mg twice a day and Keppra 500 mg daily. [facility] HospitalTjzcnm04-19-9033 History of Present illness Narrative* Geovani Gay MD - 12/21/2022 2:15 PM EST Images from the original note were not included. 12/21/2022 Aisha Ha (: 1965) is a 57 y.o. female , Established patient, here for evaluation of thefollowing chief complaint(s): Depression, Anxiety, Hyperlipidemia, GERD, Hypertension, Medication Check, Health Maintenance (Colonoscopy referral- sched 01/02/23/Hiv/hep c screening- refuse/Pneumo 23 vaccine- refuse), and Immunizations (Tdap vaccine needed due to skin tear on arm from her dog ) ASSESSMENT/PLAN: 1. Seizure disorder (CMS/HCC) (HCC) Assessment & Plan: Stable, continue Tegretol 200 mg twice a day and Keppra 500 mg daily. 2. Chronic obstructive pulmonary disease, unspecified COPD type (HCC) Assessment & Plan: Stable, continue Symbicort, Spiriva Respimat and albuterol and stop smoking. 3. Primary hypertension Assessment & Plan: Controlled, continue metoprolol 25 mg daily, lisinopril 20 mg twice a day and amlodipine 10 mg daily 4. Gastroesophageal reflux disease without esophagitis Assessment & Plan: Controlled, continue omeprazole 40 mg daily 5. Mixed hyperlipidemia Assessment & Plan: Controlled, continue atorvastatin 80 mg daily 6. Current mild episode of major depressive disorder, unspecified whether recurrent (HCC) Assessment & Plan: Partial remission, continue Lexapro 20 mg daily 7. Anxiety Assessment & Plan: Stable, continue BuSpar 20 mg 3 times a day and Xanax as needed Follow up in about 6 months (around 06/23/2023) for awv. SUBJECTIVE/OBJECTIVE: HPI -Hafsa comes in today for follow-up on multiple health issues which include depression, anxiety, hyperlipidemia, GERD, hypertension and these all seem to be fairly well controlled at this time. She has a skin tear on her left arm from when her dog snagged her with a nail and she has a Tegaderm on it. Review of Systems Constitutional: Negative for chills and fever. Respiratory: Negative for shortness of breath. Cardiovascular: Negative for chest pain and palpitations. Gastrointestinal: Negative for abdominal pain, blood in stool, constipation and diarrhea. Genitourinary: Negative for dyspareunia, dysuria, frequency, hematuria and urgency. Neurological: Negative for weakness and numbness. Psychiatric/Behavioral: Negative for dysphoric mood. The patient is not nervous/anxious. Vitals: 12/21/22 1423 BP: 120/59 Pulse: 74 Weight: 165 lb (74.8 kg) Height: 5' (1.524 m) Physical Exam Vitals and nursing note reviewed. Constitutional: General: She is not in acute distress. Appearance: Normal appearance. HENT: Head: Normocephalic. Right Ear: Tympanic membrane, ear canal and external ear normal. Left Ear: Tympanic membrane, ear canal and external ear normal. Mouth/Throat: Mouth: Mucous membranes are moist. Pharynx: Oropharynx is clear. Eyes: Extraocular Movements: Extraocular movements intact. Pupils: Pupils are equal, round, and reactive to light. Neck: Vascular: No carotid bruit. Cardiovascular: Rate and Rhythm: Normal rate and regular rhythm. Heart sounds: Normal heart sounds. No murmur heard. Pulmonary: Effort: Pulmonary effort is normal. Breath sounds: Normal breath sounds. Abdominal: General: Bowel sounds are normal. Palpations: Abdomen is soft. Musculoskeletal: General: Normal range of motion. Cervical back: Normal range of motion. Lymphadenopathy: Cervical: No cervical adenopathy. Skin: General: Skin is warm and dry. Comments: Wound on left arm is covered with a Tegaderm, there is no erythema Neurological: General: No focal deficit present. Mental Status: She is alert and oriented to person, place, and time. Psychiatric: Mood and Affect: Mood normal. An electronic signature was used to authenticate this note. Geovani Gay MD 12/21/2022 5:21 PM documented in this [facility]02-21-2023 Telephone encounter Note* Telephone Encounter - Chasity Valenzuela - 12/13/2022 4:30 PM EST Prescription Request: Last medication check: 12/13/21 Last physical exam: 06/13/22 Next scheduled appointment: 12/14/22 Last date of refill on this medication 09/30/22 4 capsules 2 refills [facility]Jewwqt02-51-9287 Miscellaneous Notes* Telephone Encounter - Chasity Valenzuela - 12/13/2022 4:30 PM EST Prescription Request: Last medication check: 12/13/21 Last physical exam: 06/13/22 Next scheduled appointment: 12/14/22 Last date of refill on this medication 09/30/22 4 capsules 2 refills documented in this [facility]01-05-2023 Telephone encounter Note* Telephone Encounter - Jenelle Garcia MA - 10/27/2022 3:24 PM EST Prescription Request: Last medication check: 09/07/2022 Last physical exam: 06/13/22 Next scheduled appointment: 11/16/2022 Last date of refill on this medication: spiriva 06/27/22, zofran 10/07/22 [facility]Tktzot34-65-5257 Miscellaneous Notes* Telephone Encounter - Jenelle Garcia MA - 10/27/2022 3:24 PM EST Prescription Request: Last medication check: 09/07/2022 Last physical exam: 06/13/22 Next scheduled appointment: 11/16/2022 Last date of refill on this medication: spiriva 06/27/22, zofran 10/07/22 documented in this [facility]07-06-2022 History of Present illness Narrative* Karolina Roa RN - 04/27/2022 12:58 PM EDT at bedside- resp even, unlabored- O2 d/c'd- using IS * Karolina Roa RN - 04/27/2022 12:04 PM EDT Pulse ox 85-91% RA- using IS- encouraged to deep breathe- O2 reapplied 1L nc * Karolina Roa RN - 04/27/2022 11:49 AM EDT O2 d/c'd * Karolina Roa RN - 04/27/2022 11:41 AM EDT Using IS- O2 decreased to 1L nc * Karolina Roa RN - 04/27/2022 11:19 AM EDT O2 decreased to 2Lnc * Karolina Roa RN - 04/27/2022 11:06 AM EDT Attempted to wean O2 to 2 L pt not josé spo2 88-90%. Instructed on IS using. Will monitor. * Karolina Roa RN - 04/27/2022 10:10 AM EDT Awake and talking- resp even, unlabored- O2 decreased to 3L nc documented in this encounterSUMMA Work Phone: [phone] Hospital Discharge instructions* Instructions* Silvia Santana RN - 04/18/2022 ..PLEASE BE AWARE THAT VISITORS UNDER THE AGE OF 12 AND FOOD/DRINKS ARE NO LONGER PERMITTED IN THE SAME DAY SURGERY DEPARTMENT. IF YOU USE A CPAP MACHINE OR RESCUE INHALER AT HOME PLEASE BRING THESE ITEMS WITH YOU THE DAY OF SURGERY. MEDICATION INSTRUCTIONS PRIOR TO SURGERY PLEASE BRING PROVIDED LIST BACK WITH YOU THE DAY OF SURGERY WITH DATE/TIME LAST DOSE OF MEDICATIONSTAKEN. MEDICATIONS TO HOLD STARTING NOW- vitamis, supplements, aspirin, stop nsaids 24 hours before surgery MEDICATIONS THAT YOU SHOULD NOT TAKE THE MORNING OF SURGERY- as above, lisinopril, nystatin powder MEDICATIONS THAT YOU SHOULD TAKE THE MORNING OF SURGERY- xanax, buspirone, hydroxyzine, inhlaers, nebulizer, tegretol, keppra, lexapro, atorvastatin, perphenazine, metoprolol, amlodipine, omeprazole * Attachments The following attachments cannot be sent through Care Everywhere. * Cholecystectomy: General Info ([place]) * Cholecystectomy: Post-op ([place]) * Cholecystectomy: Pre-op ([place]) documented in this encounterSUMMA Work Phone: Consult note Author Jef Herman [facility] Note Date/Time March 25, 2025 4:15p m [facility] Medical Records Department [address] [place] [address] Anesthesia Postop Eval I 06/03/25 1614 MR#: [id number] Acct: [id number] Name: AISHA HA Rep #:[id number] : 1965 60 From: Jef LOJA PCP: Dr. Geovani Gay MD Status:ADM IN Y Race: C Location: [place] [address] 12-21 Anesthesia: Postop Eval I Current Vital Signs Temperature: 97 F Pulse Rate: 106 Blood Pressure: 132/107 Respiratory Rate: 22 Pulse Ox: 94 Oxygen Delivery Method: Nasal Cannula Oxygen Flow Rate (L/min): 2 Assessment Airway patent: Yes Spontaneous unlabored respirations: Yes Mental status: Awake and Calm nausea: No Vomiting: No Anesthesia Complication: No Fluid Hydration Crystalloid volume administer (ml): 300 Total IV fluid infused: 300 Progress Note Anesthesia document: Postop Eval 1 completed: Yes 03/25/251614 <Electronically signed by Jef Herman CRNA> Date _ Jef Herman CRNA Cosigner Signature: Date CC: ~ Signed [facility] Work Phone: Consult note Author Jef [facility] Note Date/Time March 25, 2025 5:26p [facility] Medical Records Department [address] [place] [address] Anesthesia Postop Eval II 03/25/25 1617 MR#: [id number] Acct: [id number] Name: AISHA HA Rep #:[id number] : 1965 60 From: Jef LOJA PCP: Dr. Geovani Gay MD Status:ADM IN Y Race: C Location: [place] [address] 12-21 Anesthesia Postop Eval I Sum Postop Eval Completion status Anesthesia document: Postop Eval 1 completed: Yes Anesthesia Postop Eval I Summary Anesthesia Postop Eval I Summary: Anesthesia Postop Eval I: Assessment Summary Airway patent Yes 03/25/25 16:15 BENCH CHEMIST.MDOT Spontaneous unlabored Yes 03/25/25 16:15 BENCH CHEMIST.MDOT respirations Mental status Awake,Calm 03/25/25 16:15 BENCH CHEMIST.MDOT nausea No 03/25/25 16:15 BENCH CHEMIST.MDOT Vomiting No 03/25/25 16:15 BENCH CHEMIST.MDOT Anesthesia Postop Eval I: Fluid Summary Crystalloid volume administer 300 03/25/25 16:15 BENCH CHEMIST.MDOT (ml) Colloids volume administered ( ml) Blood Product volume administered (ml) Total IV fluid infused 300 03/25/25 16:15 BENCH CHEMIST.NORBERT Anesthesia Postop Eval I: Summary Notes Anesthesia Complication No 03/25/25 16:15 BENCH CHEMIST.NORBERT Anesthesia Complication Comment: Post-operative progress note Anesthesia: Postop Eval II Evaluation Mental status: Awake and Calm Pain Level: 0 nausea: No Vomiting: No Complications Anesthesia Complication: No 03/25/25 1617 <Electronically signed by Jef Herman CRNA> Date _ Jef Herman CRNA Cosigner Signature: Date CC: ~ Signed [facility] Work Phone: Discharge summary Author Troy Molinalia [facility] Note Date/Time March 25, 2025 5:04p [facility] Medical Records Department [address] [facility] [place] [address] Discharge Summary 03/25/25 1652 MR#: [id number] Acct: [id number] Name: AISHA HA Emma Rep #:[id number] : 1965 60 From: Troy Akins MD PCP: Dr. Geovani Gay MD Status:ADM IN Location: [facility] [id number] Providers Date of Admission: 03/20/25 Date of Discharge: 03/25/25 Primary Care Physician: Dr. Geovani Gay MD Consultations 03/24/25 08:28 Consult: Gastroenterology Routine Consulting Provider: [facility] Reason for Consult: Anemia with guaiac positive stools EMERGENT Consult: No MD Notified: Yes Date Notified: 03/24/25 Time Notified: 08:34 Method of Notification: Text Reason For Visit: PNEUMONIA Diagnosis Discharge Diagnosis (1) Nausea: Status: Acute Code(s): R11.0 - Nausea (2) Anemia: Status: Acute Code(s): D64.9 - Anemia, unspecified (3) Cirrhosis: Status: Acute Code(s): K74.60 - Unspecified cirrhosis of liver Plan Patient is a 60-year-old lady who presented with shortness of breath and progressive generalized weakness with some confusion. An assessment of acute metabolic encephalopathy as well as sepsis made admitted to a monitored bed for further management 1. Severe sepsis ? Secondary to pneumococcal pneumonia. Patient had a source of infection on admission with elevated WBC count as well as evidence of endorgan dysfunction lactic acidosis. Treatment was initiated per protocol with IV fluid resuscitation broad-spectrum antibiotic therapy after cultures have been sent. Response to therapy monitored with serial lactic acid level ?03/22/2025 patient WBC count trending down ? 03/23/2025; WBC count down to 9.0 2. Pneumonia - Secondary to streptococcal pneumonia, Strep pneumo Test Urine POSITIVE for pneumococcal pneumonia placed on Levaquin and placed on oxygen titrated to keepPulse Ox greater than 90 ? 03/23/2025; patient presents complaint of persistent cough and pleuritic chest pain ordered D-dimer if positive will proceed to obtain CTA of the chest ? 03/24/2025; CT of the chest obtained on 03/23/2025 did demonstrate 1. No acute pulmonary embolism. 2. Patchy consolidations and ground-glass opacities, greatest within the left lung. Findings are most compatible with pneumonitis/pneumonia, however pulmonary neoplasm can not be excluded. Follow-up CT chest in 4-6 weeks is recommended to evaluate for resolution. 3. Nodular contour of the liver, which may represent fibrosis/cirrhosis. - Findings discussed with patient. 3. Acute metabolic encephalopathy ? Secondary to pneumonia treating underlying etiology tachycardia 03/22/2025; patient back to baseline 4. Hypokalemia -Corrected per protocol, repeat potassium levels ordered in a.m. for response totherapy ? Patient potassium still remains low additional potassium given 5. Anemia ? Secondary to chronic disorder. As part of patient's evaluation ordered iron studies stool guaiac ferritin B12 level.. With patient hemoglobin being less than 7 an order was given for patient to be transfused 1 unit PRBC. Subsequently monitoring H&H and transfuse if patient becomes symptomatic or hemoglobin falls below 7 ? 03/24/2025;Patient hemoglobin 9.0 this a.m. Given the fact that his stool guaiac came back positive and her hemoglobin having dropped to 6.8 during her hospital stay consult was placed to GI for possible endoscopic evaluation prior to patient being ? 03/25/2025;Patient seen scheduled to undergo endoscopic evaluation as part of management of her significant anemia ? 03/25/2025; 2D echo performed by Dr. Bahena findings and recommendations as below - No gross lesions in the entire esophagus. - Two bleeding angiodysplastic lesions in the stomach. Treated with a heater probe. - Three bleeding angiodysplastic lesions in the duodenum. Treated with a heater probe. - No specimens collected. Recommendations : - [facility]. - Advance diet as tolerated. - Continue present medications. - No NSAIDs for 6 weeks - Carafate 1 g p.o. twice daily x 8 weeks -Protonix 40 mg p.o. twice daily x 8 weeks - Outpatient capsule endoscopy and colonoscopy to look for other angiodysplastic lesions 6. COPD with acute exacerbation Secondary to above patient was started on bronchodilator treatment systemic steroid as well as antibiotics as discussed above. Placed on supplemental oxygen titrated to keep saturation greater than 90 ? 03/22/2025; patient still remains dyspneic at rest ? 03/25/2025; patient breathing status improved 7. Chronic hypoxic respiratory failure Secondary to COPD patient is on baseline oxygen 3 L continuous 8. Tobacco dependence ? Counseled on cessation, patient has allergy to nicotine nicotine patch was therefore not ordered 9. Hypertension ? Blood pressure controlled, home medications continued with dose adjustment as needed ? 03/23/2025; patient blood pressure was markedly elevated the day prior 188/82 adjusted medications and added hydralazine as needed for systolic blood pressuregreater than 160 10. Dyslipidemia ? Patient is on atorvastatin did continue 10. Seizure disorder ? Patient is on camazepam as well as Keppra did continue with home doses 12. Depression with anxiety ? Did continue with home meds 13.DVT prophylaxis ? On enoxaparin 14. Constipation ? Symptom management initiated Time spent in the patient's overall evaluation,decision-making process, review of diagnostic data, adjustment of management, discussion with other providers, nursing nursing and ancillary staff involved in patient's care documentation, 36Minutes Medications at Discharge Home Medications alprazolam 1 mg tablet (Xanax) 1 mg PO QHS PRN anxiety 07/30/20 amlodipine 10 mg tablet 10 mg PO DAILY blood pressure 07/30/20 atorvastatin 80 mg tablet 80 mg PO QHS cholesterol 07/30/20 ipratropium 0.5 mg-albuterol 3 mg (2.5 mg base)/3 mL nebulization soln 3 ml inhalation Q6H PRN shortnes of breath 07/30/20 levetiracetam 500 mg tablet (Keppra) 1,000 mg PO BID seizure 07/30/20 albuterol sulfate 90 mcg/actuation aerosol inhaler (Proventil HFA) 2 puff inhalation Q6H PRN COPD 06/17/21 lisinopril 10 mg tablet 20 mg PO BID blood pressure 06/17/21 carbamazepine 200 mg tablet,extended release,12 hr 400 mg PO BID 03/23/24 duloxetine 30 mg capsule,delayed release 30 mg PO QHS 03/23/24 ondansetron HCl 4 mg tablet 4 mg PO BID PRN nausea/vomiting 03/23/24 multivitamin (Daily Multi-Vitamin tablet) 1 tab PO DAILY #30 tabs 03/26/24 calcium carb-ergocalciferol (vit D2) 250 mg (625 mg)-125 unit tablet 1 tab PO DAILY 04/18/24 nystatin 100,000 unit/gram topical powder 1 applic topical TID 04/18/24 spironolactone 25 mg tablet 25 mg PO DAILY 04/18/24 buspirone 10 mg tablet 10 mg PO TID anxiety 03/20/25 duloxetine 60 mg capsule,delayed release 60 mg PO DAILY 03/20/25 ergocalciferol (vitamin D2) 1,250 mcg (50,000 unit) capsule 1,250 mcg PO QWEEK 03/20/25 perphenazine 4 mg tablet 4 mg PO DAILY 03/20/25 tramadol 50 mg tablet 50 mg PO BID PRN PRN severe pain 03/20/25 umeclidinium 62.5 mcg/actuation blister powder for inhalation (Incruse Ellipta) 1 inh inhalation DAILY 03/20/25 budesonide-formoterol HFA 160 mcg-4.5 mcg/actuation aerosol inhaler (Symbicort) 1 inh inhalation BID #10.2 grams 03/25/25 furosemide 20 mg tablet 20 mg PO BID #120 tabs 03/25/25 guaifenesin 600 mg tablet, extended release 12 hr (Mucinex) 1,200 mg (2 x 600 mg) PO BID #20 tabs 03/25/25 levofloxacin 750 mg tablet 750 mg PO DAILY #5 tabs 03/25/25 nystatin 100,000 unit/mL oral suspension 500,000 unit (5 mL) PO 4X/DAY 14 days #280 mL 03/25/25 pantoprazole 40 mg tablet,delayed release 40 mg PO BID 60 days #120 tabs 03/25/25 potassium chloride 20 mEq tablet,extended release(part/cryst) 20 meq PO DAILY #60 tabs 03/25/25 prednisone 20 mg tablet 20 mg PO BID #14 tabs 03/25/25 sennosides 8.6 mg-docusate sodium 50 mg tablet (Stimulant Laxative Plus) 1 tab PO BID #60 tabs 03/25/25 sucralfate 1 gram tablet (Carafate) 1 g PO BID 8 weeks #112 tabs 03/25/25 Physical Exam Narrative GENERAL: cooperative HEENT: Atraumatic; normocephalic EYES; Anicteric, Normal Conjunctiva NECK; supple, normal thyroid, RESPIRATORY: Diminished to auscultation CARDIOVASCULAR: Regular S1 S2, GI: soft, normoactive bowel sounds, : No Renal angle tenderness; EXTREMITIES: No edema, no clubbing, MUSCULOSKELETAL: no muscle wasting NEURO: Awake; no lateralizing signs. SKIN: No Rash PSYCH; Flat affect Weight / BMI Weight Weight: 71.6 kg Body Mass Index (BMI) 30.9 ABG / Lab / Microbiology Data 03/25/25 10:19 03/25/25 10:19 Laboratory: Laboratory Results - last 24 hr 03/25/25 10:19: WBC 11.3 H, RBC 4.28, Hgb 10.0 L, Hct 33.2 L, MCV 77.6 L, MCH 23.4 L, MCHC 30.1 L, RDW Std Deviation 58.6 H, RDW Coeff of Sanju 23.9 H, Plt Count 354, MPV 9.5, Differential Comment SCANNED, Sodium 137, Potassium 4.2, Chloride 96 L, Carbon Dioxide 29.4, Anion Gap 11, BUN 8, Creatinine 0.50 L, EstimCreat Clear Calc 103.02, Est GFR (MDRD) Non-Af 106, BUN/Creatinine Ratio 16.3, Glucose 120 H, Calcium 9.0, Phosphorus 3.3, Magnesium 1.5 Microbiology: Microbiology 03/21/25 00:38 Sputum, Expectorated/Coughed Gram Stain - Final 03/21/25 00:38 Sputum, Expectorated/Coughed Respiratory Culture - Final Presumptive C albicans 03/20/25 17:55 Urine, Clean Catch Urine Culture - Final Meth. resistant Staph. aureus Mixed Gram Positive Organisms 03/20/25 16:20 Blood Culture (Wb) - Right Wrist Blood Culture - Preliminary No growth in 48 hours. 03/20/25 17:45 Blood Culture (Wb) - Left Wrist Blood Culture - Preliminary No growth in 48 hours. 03/20/25 17:51 Urine, Random Legionella Antigen - Final 03/20/25 17:51 Urine, Random Streptococcus pneumoniae Antigen (M - Final Streptococcus pneumonia Ag 03/20/25 17:50 Mucosa - Nose SARS-CoV-2, Influenza & RSV (PCR) - Final D/C Instructions Discharge Diet: No restrictions Discharge Activity: Return to Normal Activity Call your doctor if you observe: Fever of 101 or Higher, Shortness of breath, Fainting spells and Chest pain DC O2, CPAP, BIPAP Needs Home O2 Discharge instructions: Yes Type of respiratory needs?: Oxygen Oxygen frequency: Continuous Continuous oxygen liters per minute: 3 DC home with Oxygen: Yes Home O2 MD Review: I have reviewed the oxygen testing, and the patient qualifies for home oxygen equipment and portability. The patient is mobile in the home and the community. Meaningful Use Info Meaningful Use Meaningful Use Diagnoses (Choose all that apply): None applicable Ischemic Stroke Statin Dosing Therapy Reference: STATIN DOSE THERAPY REFERENCE: * Patients > 75 years receive moderate or high dose statin therapy. * Patients 75 years or YOUNGER should receive HIGH intensity statin dose unless contraindicated. You will be required to document reason for non-treatment if statin daily dose does not meet guidelines. HIGH DOSE STATIN THERAPY DAILY Atorvastatin > than or = to 40 mg Rosuvastatin > than or = to 20 mg Amlodipine + Atorvastatin > than or = to 2.5/40 mg Ezetimibe + Simvastatin 10/80 mg Simvastatin 80mg Discharge Plan Admission Admit Date/Time: 03/20/25 21:36 Attending Provider: Troy Akins Primary Care Provider: Geovani Gay Consulting Providers: Jose Douglas Discharge Orders/Prescriptions Prescriptions: New nystatin 100,000 unit/mL Suspension 500,000 unit PO 4X/DAY 14 Days Qty: 280 0RF sennosides-docusate sodium [Stimulant Laxative Plus] 8.6-50 mg Tablet 1 tab PO BID Qty: 60 0RF potassium chloride 20 mEq Tablet,Er Particles/Crystals 20 meq PO DAILY Qty: 60 0RF pantoprazole 40 mg Tablet,Delayed Release (Dr/Ec) 40 mg PO BID 60 Days Qty: 120 0RF levofloxacin 750 mg tablet 750 mg PO DAILY Qty: 5 0RF prednisone 20 mg tablet 20 mg PO BID Qty: 14 0RF guaifenesin [Mucinex] 600 mg tablet extended release 12hr 1,200 mg PO BID Qty: 20 0RF sucralfate [Carafate] 1 gram tablet 1 g PO BID 56 Days Qty: 112 0RF budesonide-formoterol [Symbicort] 160-4.5 mcg/actuation HFA aerosol inhaler 1 inh inhalation BID Qty: 10.2 0RF Continued albuterol sulfate [Proventil HFA] 90 mcg/actuation HFA aerosol inhaler 2 puff inhalation Q6H PRN (Reason: COPD) atorvastatin 80 mg tablet 80 mg PO QHS ipratropium-albuterol 3 ML solution for nebulization 3 ml inhalation Q6H PRN (Reason: shortnes of breath) levetiracetam [Keppra] 500 MG tablet 1,000 mg PO BID amlodipine 10 MG tablet 10 mg PO DAILY alprazolam [Xanax] 1 MG tablet 1 mg PO QHS PRN (Reason: anxiety ) lisinopril 10 mg tablet 20 mg PO BID ondansetron HCl 4 mg tablet 4 mg PO BID PRN (Reason: nausea/vomiting) carbamazepine 200 mg tablet extended release 12 hr 400 mg PO BID duloxetine 30 mg capsule,delayed release(DR/EC) 30 mg PO QHS multivitamin [Daily Multi-Vitamin] Tablet 1 tab PO DAILY Qty: 30 0RF nystatin 100,000 unit/gram powder 1 applic topical TID spironolactone 25 mg tablet 25 mg PO DAILY calcium carbonate-vitamin D2 250 (625)-125 mg-unit tablet 1 tab PO DAILY buspirone 10 mg tablet 10 mg PO TID duloxetine 60 mg capsule,delayed release(DR/EC) 60 mg PO DAILY ergocalciferol (vitamin D2) 1,250 mcg (50,000 unit) capsule 1,250 mcg PO QWEEK tramadol 50 mg tablet 50 mg PO BID PRN PRN (Reason: severe pain) perphenazine 4 mg tablet 4 mg PO DAILY Incruse Ellipta 62.5 mcg/actuation blister with device 1 inh inhalation DAILY Changed furosemide 20 mg tablet 20 mg PO BID Qty: 120 0RF Discontinued omeprazole 40 MG capsule,delayed release(DR/EC) 40 mg PO BID Referrals / Follow Up: Geovani Gay MD [Primary Care Provider] - Within 2 Weeks Cal Bahena DO [Med Staff - Active Staff] - Within 1 Month Disposition Disposition (needs filled in before D/C Order can be placed): Home, Self Care Charges/Coding Visit Charges Inpatient E&M: 45565 Disch Hosp >30min 03/25/25 1704 <Electronically signed by Troy Akins MD> Cosigner Signature (if applicable): CC: Dr. Geovani Gay MD; Dr. Troy Akins MD~ Signed [facility] Work Phone: Evaluation note* Diagnosis Chronic nausea Nausea alone RUQ abdominal pain Abdominal pain, right upper quadrant documented in this encounter [employer] Work Phone: Evaluation note* Diagnosis Onset Date Resolution Status Nicotine dependence, cigarettes, uncomplicated acute Asthma-COPD overlap syndrome chronic Chronic cholecystitis chroni c Cholelithiasis acute Nausea acute COPD chronic [facility] Work Phone: Evaluation note* Diagnosis Seizure disorder (HCC) Unspecified epilepsy without mention of intractable epilepsy documented in this encounter [facility] Work Phone: evaluation note* Diagnosis Calculus of gallbladder with acute on chronic cholecystitis without obstruction- Primary documented in this encounter [facility] Work Phone: evaluation note* Diagnosis Lung nodule Solitary pulmonary nodule documented in this encounter [facility] Work Phone: evaluation note* Diagnosis Onset Date Resolution Status Alcohol use disorder acute Colon polyps acute Gastric reflux acute Nausea acute [facility] Work Phone: evaluation note* Diagnosis Vitamin D deficiency, unspecified [facility] [employer]* Diagnosis Chronic nausea Nausea alone [facility] [employer] [facility]* Diagnosis Onset Date Resolution Status Alcohol use disorder acute Colon polyps acute Gastric reflux acute Nausea acute Cirrhosis chronic [facility] Work Phone: evaluation note* Diagnosis Epilepsy, unspecified, not intractable, without status epilepticus (HCC) [facility] [employer] [facility]* Diagnosis Vitamin D deficiency, unspecified [facility] [employer] [facility]* Diagnosis Annual physical exam- Primary Routine general medical examination at a health care facility Seizure disorder (CMS/HCC) (HCC) Unspecified epilepsy without mention of intractable epilepsy Moderate asthma, unspecified whether complicated, unspecified whether persistent Chronic obstructive pulmonary disease, unspecified COPD type (HCC) Primary hypertension Unspecified essential hypertension Fibromyalgia Unspecified myalgia and myositis Vitamin D deficiency Anxiety Anxiety state, unspecified Current mild episode of major depressive disorder, unspecified whether recurrent (HCC) Mixed hyperlipidemia Current smoker Hypoxemia Screening for diabetes mellitus Encounter for screening mammogram for malignant neoplasm of breast Need for pneumococcal vaccination Need for prophylactic vaccination against streptococcus pneumoniae (pneumococcus) [facility]* Diagnosis Chronic obstructive pulmonary disease, unspecified (HCC) documented [facility]* Diagnosis Epilepsy, unspecified, not intractable, without status epilepticus (HCC) documented [facility] [employer] [facility]* Diagnosis Multiple lung nodules on CT documented in [facility] [employer] [facility]* Diagnosis Vitamin D deficiency, unspecified documented in [facility] [employer]* Diagnosis Chronic nausea Nausea alone documented [facility] [employer] [facility]* Diagnosis Primary hypertension Unspecified essential hypertension documented [facility] this encounter [facility]* Diagnosis Encounter for screening mammogram for malignant neoplasm of breast documented [facility]* Diagnosis Chronic obstructive pulmonary disease, unspecified COPD type (HCC)- Primary Primary hypertension Unspecified essential hypertension Gastroesophageal reflux disease without esophagitis Esophageal reflux Chronic nausea Nausea alone Current mild episode of major depressive disorder, unspecified whether recurrent (HCC) Anxiety Anxiety state, unspecified [facility] Diagnosis Chronic obstructive pulmonary disease, unspecified (HCC) [facility]* Diagnosis Vitamin D deficiency, unspecified [facility] Diagnosis Epilepsy, unspecified, not intractable, without status epilepticus (HCC) [facility]* Diagnosis Acute non-recurrent pansinusitis- Primary Bronchitis Bronchitis, not specified as acute or chronic Primary hypertension Unspecified essential hypertension [facility] Diagnosis Chronic obstructive pulmonary disease, unspecified COPD type (HCC)- Primary Seizure disorder (CMS/HCC) (HCC) Unspecified epilepsy without mention of intractable epilepsy Primary hypertension Unspecified essential hypertension Gastroesophageal reflux disease without esophagitis Esophageal reflux Fibromyalgia Unspecified myalgia and myositis Vitamin D deficiency Current mild episode of major depressive disorder, unspecified whether recurrent (HCC) Anxiety Anxiety state, unspecified Current smoker Mixed hyperlipidemia Hyponatremia Hyposmolality and/or hyponatremia documented [facility]* Diagnosis Vitamin D deficiency, unspecified Chronic obstructive pulmonary disease, unspecified (HCC) [facility]* Diagnosis Primary hypertension Unspecified essential hypertension Chronic nausea Nausea alone [facility] Diagnosis Chronic obstructive pulmonary disease, unspecified COPD type (HCC)- Primary Abnormal liver function tests Hyponatremia Hyposmolality and/or hyponatremia Falls frequently Personal history of fall Ascites due to chronic alcoholic hepatitis Iron deficiency anemia, unspecified iron deficiency anemia type Generalized weakness [facility] Diagnosis Primary hypertension Unspecified essential hypertension Chronic obstructive pulmonary disease, unspecified (HCC) [facility]* Diagnosis Vitamin D deficiency, unspecified [facility] Diagnosis Alcoholic cirrhosis of liver with ascites (CMS/HCC) (HCC)- Primary Abnormal liver function tests Osteoarthritis, unspecified osteoarthritis type, unspecified site Chronic respiratory failure with hypoxia (HCC) Chronic obstructive pulmonary disease, unspecified COPD type (HCC) Moderate asthma, unspecified whether complicated, unspecified whether persistent Current smoker Hyponatremia Hyposmolality and/or hyponatremia Seizure disorder (CMS/HCC) (HCC) Unspecified epilepsy without mention of intractable epilepsy Mixed hyperlipidemia Chronic nausea Nausea alone Vitamin D deficiency Falls frequently Personal history of fall Generalized weakness Primary hypertension Unspecified essential hypertension [facility] Diagnosis Osteoarthritis, unspecified osteoarthritis type, unspecified site [facility]* Diagnosis Vitamin D deficiency, unspecified [facility] Diagnosis Chronic obstructive pulmonary disease, unspecified (HCC)- Primary Primary hypertension Unspecified essential hypertension Hyperlipidemia, unspecified hyperlipidemia type Epilepsy, unspecified, not intractable, without status epilepticus (HCC) Vitamin D deficiency, unspecified Alcoholic cirrhosis of liver with ascites (CMS/HCC) (HCC) Chronic respiratory failure with hypoxia (HCC) Hyponatremia Hyposmolality and/or hyponatremia [facility] Diagnosis Acute non-recurrent frontal sinusitis- Primary Primary hypertension Unspecified essential hypertension Seizure disorder (CMS/HCC) (HCC)- Primary Unspecified epilepsy without mention of intractable epilepsy Chronic obstructive pulmonary disease, unspecified COPD type (HCC) Primary hypertension Unspecified essential hypertension Gastroesophageal reflux disease without esophagitis Esophageal reflux Mixed hyperlipidemia Current mild episode of major depressive disorder, unspecified whether recurrent (HCC) Anxiety Anxiety state, unspecified Annual physical exam- Primary Routine general medical examination at a health care facility Seizure disorder (CMS/HCC) (HCC) Unspecified epilepsy without mention of intractable epilepsy Moderate asthma, unspecified whether complicated, unspecified whether persistent Chronic obstructive pulmonary disease, unspecified COPD type (HCC) Primary hypertension Unspecified essential hypertension Fibromyalgia Unspecified myalgia and myositis Vitamin D deficiency Anxiety Anxiety state, unspecified Current mild episode of major depressive disorder, unspecified whether recurrent (HCC) Mixed hyperlipidemia Current smoker Hypoxemia Screening for diabetes mellitus Encounter for screening mammogram for malignant neoplasm of breast Need for pneumococcal vaccination Need for prophylactic vaccination against streptococcus pneumoniae (pneumococcus) Chronic obstructive pulmonary disease, unspecified COPD type (HCC)- Primary Primary hypertension Unspecified essential hypertension Gastroesophageal reflux disease without esophagitis Esophageal reflux Chronic nausea Nausea alone Current mild episode of major depressive disorder, unspecified whether recurrent (HCC) Anxiety Anxiety state, unspecified Acute non-recurrent pansinusitis- Primary Bronchitis Bronchitis, not specified as acute or chronic Primary hypertension Unspecified essential hypertension Chronic obstructive pulmonary disease, unspecified COPD type (HCC)- Primary Seizure disorder (CMS/HCC) (HCC) Unspecified epilepsy without mention of intractable epilepsy Primary hypertension Unspecified essential hypertension Gastroesophageal reflux disease without esophagitis Esophageal reflux Fibromyalgia Unspecified myalgia and myositis Vitamin D deficiency Current mild episode of major depressive disorder, unspecified whether recurrent (HCC) Anxiety Anxiety state, unspecified Current smoker Mixed hyperlipidemia Hyponatremia Hyposmolality and/or hyponatremia Chronic obstructive pulmonary disease, unspecified COPD type (HCC)- Primary Abnormal liver function tests Hyponatremia Hyposmolality and/or hyponatremia Falls frequently Personal history of fall Ascites due to chronic alcoholic hepatitis Iron deficiency anemia, unspecified iron deficiency anemia type Generalized weakness Chronic obstructive pulmonary disease, unspecified (HCC)- Primary Primary hypertension Unspecified essential hypertension Hyperlipidemia, unspecified hyperlipidemia type Epilepsy, unspecified, not intractable, without status epilepticus (HCC) Vitamin D deficiency, unspecified Alcoholic cirrhosis of liver with ascites (CMS/HCC) (HCC) Chronic respiratory failure with hypoxia (HCC) Hyponatremia Hyposmolality and/or hyponatremia Sinobronchitis- Primary Malaise and fatigue Acute cough Head congestion [facility] Diagnosis Acute non-recurrent frontal sinusitis- Primary Primary hypertension Unspecified essential hypertension Seizure disorder (CMS/HCC) (HCC)- Primary Unspecified epilepsy without mention of intractable epilepsy Chronic obstructive pulmonary disease, unspecified COPD type (HCC) Primary hypertension Unspecified essential hypertension Gastroesophageal reflux disease without esophagitis Esophageal reflux Mixed hyperlipidemia Current mild episode of major depressive disorder, unspecified whether recurrent (HCC) Anxiety Anxiety state, unspecified Annual physical exam- Primary Routine general medical examination at a health care facility Seizure disorder (CMS/HCC) (HCC) Unspecified epilepsy without mention of intractable epilepsy Moderate asthma, unspecified whether complicated, unspecified whether persistent Chronic obstructive pulmonary disease, unspecified COPD type (HCC) Primary hypertension Unspecified essential hypertension Fibromyalgia Unspecified myalgia and myositis Vitamin D deficiency Anxiety Anxiety state, unspecified Current mild episode of major depressive disorder, unspecified whether recurrent (HCC) Mixed hyperlipidemia Current smoker Hypoxemia Screening for diabetes mellitus Encounter for screening mammogram for malignant neoplasm of breast Need for pneumococcal vaccination Need for prophylactic vaccination against streptococcus pneumoniae (pneumococcus) Chronic obstructive pulmonary disease, unspecified COPD type (HCC)- Primary Primary hypertension Unspecified essential hypertension Gastroesophageal reflux disease without esophagitis Esophageal reflux Chronic nausea Nausea alone Current mild episode of major depressive disorder, unspecified whether recurrent (HCC) Anxiety Anxiety state, unspecified Acute non-recurrent pansinusitis- Primary Bronchitis Bronchitis, not specified as acute or chronic Primary hypertension Unspecified essential hypertension Chronic obstructive pulmonary disease, unspecified COPD type (HCC)- Primary Seizure disorder (CMS/HCC) (HCC) Unspecified epilepsy without mention of intractable epilepsy Primary hypertension Unspecified essential hypertension Gastroesophageal reflux disease without esophagitis Esophageal reflux Fibromyalgia Unspecified myalgia and myositis Vitamin D deficiency Current mild episode of major depressive disorder, unspecified whether recurrent (HCC) Anxiety Anxiety state, unspecified Current smoker Mixed hyperlipidemia Hyponatremia Hyposmolality and/or hyponatremia Chronic obstructive pulmonary disease, unspecified COPD type (HCC)- Primary Abnormal liver function tests Hyponatremia Hyposmolality and/or hyponatremia Falls frequently Personal history of fall Ascites due to chronic alcoholic hepatitis Iron deficiency anemia, unspecified iron deficiency anemia type Generalized weakness Chronic obstructive pulmonary disease, unspecified (HCC)- Primary Primary hypertension Unspecified essential hypertension Hyperlipidemia, unspecified hyperlipidemia type Epilepsy, unspecified, not intractable, without status epilepticus (HCC) Vitamin D deficiency, unspecified Alcoholic cirrhosis of liver with ascites (CMS/HCC) (HCC) Chronic respiratory failure with hypoxia (HCC) Hyponatremia Hyposmolality and/or hyponatremia Screening mammogram for breast cancer documented [facility]* Diagnosis Acute non-recurrent frontal sinusitis- Primary Primary hypertension Unspecified essential hypertension Seizure disorder (CMS/HCC) (HCC)- Primary Unspecified epilepsy without mention of intractable epilepsy Chronic obstructive pulmonary disease, unspecified COPD type (HCC) Primary hypertension Unspecified essential hypertension Gastroesophageal reflux disease without esophagitis Esophageal reflux Mixed hyperlipidemia Current mild episode of major depressive disorder, unspecified whether recurrent (HCC) Anxiety Anxiety state, unspecified Annual physical exam- Primary Routine general medical examination at a health care facility Seizure disorder (CMS/HCC) (HCC) Unspecified epilepsy without mention of intractable epilepsy Moderate asthma, unspecified whether complicated, unspecified whether persistent Chronic obstructive pulmonary disease, unspecified COPD type (HCC) Primary hypertension Unspecified essential hypertension Fibromyalgia Unspecified myalgia and myositis Vitamin D deficiency Anxiety Anxiety state, unspecified Current mild episode of major depressive disorder, unspecified whether recurrent (HCC) Mixed hyperlipidemia Current smoker Hypoxemia Screening for diabetes mellitus Encounter for screening mammogram for malignant neoplasm of breast Need for pneumococcal vaccination Need for prophylactic vaccination against streptococcus pneumoniae (pneumococcus) Chronic obstructive pulmonary disease, unspecified COPD type (HCC)- Primary Primary hypertension Unspecified essential hypertension Gastroesophageal reflux disease without esophagitis Esophageal reflux Chronic nausea Nausea alone Current mild episode of major depressive disorder, unspecified whether recurrent (HCC) Anxiety Anxiety state, unspecified Acute non-recurrent pansinusitis- Primary Bronchitis Bronchitis, not specified as acute or chronic Primary hypertension Unspecified essential hypertension Chronic obstructive pulmonary disease, unspecified COPD type (HCC)- Primary Seizure disorder (CMS/HCC) (HCC) Unspecified epilepsy without mention of intractable epilepsy Primary hypertension Unspecified essential hypertension Gastroesophageal reflux disease without esophagitis Esophageal reflux Fibromyalgia Unspecified myalgia and myositis Vitamin D deficiency Current mild episode of major depressive disorder, unspecified whether recurrent (HCC) Anxiety Anxiety state, unspecified Current smoker Mixed hyperlipidemia Hyponatremia Hyposmolality and/or hyponatremia Chronic obstructive pulmonary disease, unspecified COPD type (HCC)- Primary Abnormal liver function tests Hyponatremia Hyposmolality and/or hyponatremia Falls frequently Personal history of fall Ascites due to chronic alcoholic hepatitis Iron deficiency anemia, unspecified iron deficiency anemia type Generalized weakness Chronic obstructive pulmonary disease, unspecified (HCC)- Primary Primary hypertension Unspecified essential hypertension Hyperlipidemia, unspecified hyperlipidemia type Epilepsy, unspecified, not intractable, without status epilepticus (HCC) Vitamin D deficiency, unspecified Alcoholic cirrhosis of liver with ascites (CMS/HCC) (HCC) Chronic respiratory failure with hypoxia (HCC) Hyponatremia Hyposmolality and/or hyponatremia Moderate asthma, unspecified whether complicated, unspecified whether persistent- Primary Chronic obstructive pulmonary disease, unspecified COPD type (HCC) Chronic respiratory failure with hypoxia (HCC) Primary hypertension Unspecified essential hypertension Nonintractable epilepsy without status epilepticus, unspecified epilepsy type (HCC) Gastroesophageal reflux disease without esophagitis Esophageal reflux Mixed hyperlipidemia Hyponatremia Hyposmolality and/or hyponatremia documented [facility]* Diagnosis Acute non-recurrent frontal sinusitis- Primary Primary hypertension Unspecified essential hypertension Seizure disorder (CMS/HCC) (HCC)- Primary Unspecified epilepsy without mention of intractable epilepsy Chronic obstructive pulmonary disease, unspecified COPD type (HCC) Primary hypertension Unspecified essential hypertension Gastroesophageal reflux disease without esophagitis Esophageal reflux Mixed hyperlipidemia Current mild episode of major depressive disorder, unspecified whether recurrent (HCC) Anxiety Anxiety state, unspecified Annual physical exam- Primary Routine general medical examination at a health care facility Seizure disorder (CMS/HCC) (HCC) Unspecified epilepsy without mention of intractable epilepsy Moderate asthma, unspecified whether complicated, unspecified whether persistent Chronic obstructive pulmonary disease, unspecified COPD type (HCC) Primary hypertension Unspecified essential hypertension Fibromyalgia Unspecified myalgia and myositis Vitamin D deficiency Anxiety Anxiety state, unspecified Current mild episode of major depressive disorder, unspecified whether recurrent (HCC) Mixed hyperlipidemia Current smoker Hypoxemia Screening for diabetes mellitus Encounter for screening mammogram for malignant neoplasm of breast Need for pneumococcal vaccination Need for prophylactic vaccination against streptococcus pneumoniae (pneumococcus) Chronic obstructive pulmonary disease, unspecified COPD type (HCC)- Primary Primary hypertension Unspecified essential hypertension Gastroesophageal reflux disease without esophagitis Esophageal reflux Chronic nausea Nausea alone Current mild episode of major depressive disorder, unspecified whether recurrent (HCC) Anxiety Anxiety state, unspecified Acute non-recurrent pansinusitis- Primary Bronchitis Bronchitis, not specified as acute or chronic Primary hypertension Unspecified essential hypertension Chronic obstructive pulmonary disease, unspecified COPD type (HCC)- Primary Seizure disorder (CMS/HCC) (HCC) Unspecified epilepsy without mention of intractable epilepsy Primary hypertension Unspecified essential hypertension Gastroesophageal reflux disease without esophagitis Esophageal reflux Fibromyalgia Unspecified myalgia and myositis Vitamin D deficiency Current mild episode of major depressive disorder, unspecified whether recurrent (HCC) Anxiety Anxiety state, unspecified Current smoker Mixed hyperlipidemia Hyponatremia Hyposmolality and/or hyponatremia Chronic obstructive pulmonary disease, unspecified COPD type (HCC)- Primary Abnormal liver function tests Hyponatremia Hyposmolality and/or hyponatremia Falls frequently Personal history of fall Ascites due to chronic alcoholic hepatitis Iron deficiency anemia, unspecified iron deficiency anemia type Generalized weakness Chronic obstructive pulmonary disease, unspecified (HCC)- Primary Primary hypertension Unspecified essential hypertension Hyperlipidemia, unspecified hyperlipidemia type Epilepsy, unspecified, not intractable, without status epilepticus (HCC) Vitamin D deficiency, unspecified Alcoholic cirrhosis of liver with ascites (CMS/HCC) (HCC) Chronic respiratory failure with hypoxia (HCC) Hyponatremia Hyposmolality and/or hyponatremia Screening mammogram for breast cancer- Primary Screening mammogram for breast cancer Moderate asthma, unspecified whether complicated, unspecified whether persistent- Primary Chronic obstructive pulmonary disease, unspecified COPD type (HCC) Chronic respiratory failure with hypoxia (HCC) Primary hypertension Unspecified essential hypertension Nonintractable epilepsy without status epilepticus, unspecified epilepsy type (HCC) Gastroesophageal reflux disease without esophagitis Esophageal reflux Mixed hyperlipidemia Hyponatremia Hyposmolality and/or hyponatremia documented [facility]* Diagnosis Solitary pulmonary nodule documented in this encounter [facility]* Diagnosis Vitamin D deficiency, unspecified documented in this [facility]* Diagnosis Seizure disorder (CMS/HCC) (HCC)- Primary Unspecified epilepsy without mention of intractable epilepsy Chronic obstructive pulmonary disease, unspecified COPD type (HCC) Primary hypertension Unspecified essential hypertension Gastroesophageal reflux disease without esophagitis Esophageal reflux Mixed hyperlipidemia Current mild episode of major depressive disorder, unspecified whether recurrent (HCC) Anxiety Anxiety state, unspecified documented in this encounter [facility]* Diagnosis Hyperlipidemia, unspecified hyperlipidemia type Primary hypertension Unspecified essential hypertension Chronic obstructive pulmonary disease, unspecified (HCC) documented in this encounter [facility]* Diagnosis Acute non-recurrent frontal sinusitis- Primary Primary hypertension Unspecified essential hypertension Seizure disorder (CMS/HCC) (HCC)- Primary Unspecified epilepsy without mention of intractable epilepsy Chronic obstructive pulmonary disease, unspecified COPD type (HCC) Primary hypertension Unspecified essential hypertension Gastroesophageal reflux disease without esophagitis Esophageal reflux Mixed hyperlipidemia Current mild episode of major depressive disorder, unspecified whether recurrent (HCC) Anxiety Anxiety state, unspecified Annual physical exam- Primary Routine general medical examination at a health care facility Seizure disorder (CMS/HCC) (HCC) Unspecified epilepsy without mention of intractable epilepsy Moderate asthma, unspecified whether complicated, unspecified whether persistent Chronic obstructive pulmonary disease, unspecified COPD type (HCC) Primary hypertension Unspecified essential hypertension Fibromyalgia Unspecified myalgia and myositis Vitamin D deficiency Anxiety Anxiety state, unspecified Current mild episode of major depressive disorder, unspecified whether recurrent (HCC) Mixed hyperlipidemia Current smoker Hypoxemia Screening for diabetes mellitus Encounter for screening mammogram for malignant neoplasm of breast Need for pneumococcal vaccination Need for prophylactic vaccination against streptococcus pneumoniae (pneumococcus) Chronic obstructive pulmonary disease, unspecified COPD type (HCC)- Primary Primary hypertension Unspecified essential hypertension Gastroesophageal reflux disease without esophagitis Esophageal reflux Chronic nausea Nausea alone Current mild episode of major depressive disorder, unspecified whether recurrent (HCC) Anxiety Anxiety state, unspecified Acute non-recurrent pansinusitis- Primary Bronchitis Bronchitis, not specified as acute or chronic Primary hypertension Unspecified essential hypertension Chronic obstructive pulmonary disease, unspecified COPD type (HCC)- Primary Seizure disorder (CMS/HCC) (HCC) Unspecified epilepsy without mention of intractable epilepsy Primary hypertension Unspecified essential hypertension Gastroesophageal reflux disease without esophagitis Esophageal reflux Fibromyalgia Unspecified myalgia and myositis Vitamin D deficiency Current mild episode of major depressive disorder, unspecified whether recurrent (HCC) Anxiety Anxiety state, unspecified Current smoker Mixed hyperlipidemia Hyponatremia Hyposmolality and/or hyponatremia Chronic obstructive pulmonary disease, unspecified COPD type (HCC)- Primary Abnormal liver function tests Hyponatremia Hyposmolality and/or hyponatremia Falls frequently Personal history of fall Ascites due to chronic alcoholic hepatitis Iron deficiency anemia, unspecified iron deficiency anemia type Generalized weakness Chronic obstructive pulmonary disease, unspecified (HCC)- Primary Primary hypertension Unspecified essential hypertension Hyperlipidemia, unspecified hyperlipidemia type Epilepsy, unspecified, not intractable, without status epilepticus (HCC) Vitamin D deficiency, unspecified Alcoholic cirrhosis of liver with ascites (CMS/HCC) (HCC) Chronic respiratory failure with hypoxia (HCC) Hyponatremia Hyposmolality and/or hyponatremia Moderate asthma, unspecified whether complicated, unspecified whether persistent- Primary Chronic obstructive pulmonary disease, unspecified COPD type (HCC) Chronic respiratory failure with hypoxia (HCC) Primary hypertension Unspecified essential hypertension Nonintractable epilepsy without status epilepticus, unspecified epilepsy type (HCC) Gastroesophageal reflux disease without esophagitis Esophageal reflux Mixed hyperlipidemia Hyponatremia Hyposmolality and/or hyponatremia Hyperlipidemia, unspecified hyperlipidemia type documented in this encounter [facility]* Diagnosis Acute non-recurrent frontal sinusitis- Primary Primary hypertension Unspecified essential hypertension Seizure disorder (CMS/HCC) (HCC)- Primary Unspecified epilepsy without mention of intractable epilepsy Chronic obstructive pulmonary disease, unspecified COPD type (HCC) Primary hypertension Unspecified essential hypertension Gastroesophageal reflux disease without esophagitis Esophageal reflux Mixed hyperlipidemia Current mild episode of major depressive disorder, unspecified whether recurrent (HCC) Anxiety Anxiety state, unspecified Annual physical exam- Primary Routine general medical examination at a health care facility Seizure disorder (CMS/HCC) (HCC) Unspecified epilepsy without mention of intractable epilepsy Moderate asthma, unspecified whether complicated, unspecified whether persistent Chronic obstructive pulmonary disease, unspecified COPD type (HCC) Primary hypertension Unspecified essential hypertension Fibromyalgia Unspecified myalgia and myositis Vitamin D deficiency Anxiety Anxiety state, unspecified Current mild episode of major depressive disorder, unspecified whether recurrent (HCC) Mixed hyperlipidemia Current smoker Hypoxemia Screening for diabetes mellitus Encounter for screening mammogram for malignant neoplasm of breast Need for pneumococcal vaccination Need for prophylactic vaccination against streptococcus pneumoniae (pneumococcus) Chronic obstructive pulmonary disease, unspecified COPD type (HCC)- Primary Primary hypertension Unspecified essential hypertension Gastroesophageal reflux disease without esophagitis Esophageal reflux Chronic nausea Nausea alone Current mild episode of major depressive disorder, unspecified whether recurrent (HCC) Anxiety Anxiety state, unspecified Acute non-recurrent pansinusitis- Primary Bronchitis Bronchitis, not specified as acute or chronic Primary hypertension Unspecified essential hypertension Chronic obstructive pulmonary disease, unspecified COPD type (HCC)- Primary Seizure disorder (CMS/HCC) (HCC) Unspecified epilepsy without mention of intractable epilepsy Primary hypertension Unspecified essential hypertension Gastroesophageal reflux disease without esophagitis Esophageal reflux Fibromyalgia Unspecified myalgia and myositis Vitamin D deficiency Current mild episode of major depressive disorder, unspecified whether recurrent (HCC) Anxiety Anxiety state, unspecified Current smoker Mixed hyperlipidemia Hyponatremia Hyposmolality and/or hyponatremia Chronic obstructive pulmonary disease, unspecified COPD type (HCC)- Primary Abnormal liver function tests Hyponatremia Hyposmolality and/or hyponatremia Falls frequently Personal history of fall Ascites due to chronic alcoholic hepatitis Iron deficiency anemia, unspecified iron deficiency anemia type Generalized weakness Chronic obstructive pulmonary disease, unspecified (HCC)- Primary Primary hypertension Unspecified essential hypertension Hyperlipidemia, unspecified hyperlipidemia type Epilepsy, unspecified, not intractable, without status epilepticus (HCC) Vitamin D deficiency, unspecified Alcoholic cirrhosis of liver with ascites (CMS/HCC) (HCC) Chronic respiratory failure with hypoxia (HCC) Hyponatremia Hyposmolality and/or hyponatremia Moderate asthma, unspecified whether complicated, unspecified whether persistent- Primary Chronic obstructive pulmonary disease, unspecified COPD type (HCC) Chronic respiratory failure with hypoxia (HCC) Primary hypertension Unspecified essential hypertension Nonintractable epilepsy without status epilepticus, unspecified epilepsy type (HCC) Gastroesophageal reflux disease without esophagitis Esophageal reflux Mixed hyperlipidemia Hyponatremia Hyposmolality and/or hyponatremia Primary hypertension Unspecified essential hypertension documented in [facility]* Diagnosis Acute non-recurrent frontal sinusitis- Primary Primary hypertension Unspecified essential hypertension Seizure disorder (CMS/HCC) (HCC)- Primary Unspecified epilepsy without mention of intractable epilepsy Chronic obstructive pulmonary disease, unspecified COPD type (HCC) Primary hypertension Unspecified essential hypertension Gastroesophageal reflux disease without esophagitis Esophageal reflux Mixed hyperlipidemia Current mild episode of major depressive disorder, unspecified whether recurrent (HCC) Anxiety Anxiety state, unspecified Annual physical exam- Primary Routine general medical examination at a health care facility Seizure disorder (CMS/HCC) (HCC) Unspecified epilepsy without mention of intractable epilepsy Moderate asthma, unspecified whether complicated, unspecified whether persistent Chronic obstructive pulmonary disease, unspecified COPD type (HCC) Primary hypertension Unspecified essential hypertension Fibromyalgia Unspecified myalgia and myositis Vitamin D deficiency Anxiety Anxiety state, unspecified Current mild episode of major depressive disorder, unspecified whether recurrent (HCC) Mixed hyperlipidemia Current smoker Hypoxemia Screening for diabetes mellitus Encounter for screening mammogram for malignant neoplasm of breast Need for pneumococcal vaccination Need for prophylactic vaccination against streptococcus pneumoniae (pneumococcus) Chronic obstructive pulmonary disease, unspecified COPD type (HCC)- Primary Primary hypertension Unspecified essential hypertension Gastroesophageal reflux disease without esophagitis Esophageal reflux Chronic nausea Nausea alone Current mild episode of major depressive disorder, unspecified whether recurrent (HCC) Anxiety Anxiety state, unspecified Acute non-recurrent pansinusitis- Primary Bronchitis Bronchitis, not specified as acute or chronic Primary hypertension Unspecified essential hypertension Chronic obstructive pulmonary disease, unspecified COPD type (HCC)- Primary Seizure disorder (CMS/HCC) (HCC) Unspecified epilepsy without mention of intractable epilepsy Primary hypertension Unspecified essential hypertension Gastroesophageal reflux disease without esophagitis Esophageal reflux Fibromyalgia Unspecified myalgia and myositis Vitamin D deficiency Current mild episode of major depressive disorder, unspecified whether recurrent (HCC) Anxiety Anxiety state, unspecified Current smoker Mixed hyperlipidemia Hyponatremia Hyposmolality and/or hyponatremia Chronic obstructive pulmonary disease, unspecified COPD type (HCC)- Primary Abnormal liver function tests Hyponatremia Hyposmolality and/or hyponatremia Falls frequently Personal history of fall Ascites due to chronic alcoholic hepatitis Iron deficiency anemia, unspecified iron deficiency anemia type Generalized weakness Chronic obstructive pulmonary disease, unspecified (HCC)- Primary Primary hypertension Unspecified essential hypertension Hyperlipidemia, unspecified hyperlipidemia type Epilepsy, unspecified, not intractable, without status epilepticus (HCC) Vitamin D deficiency, unspecified Alcoholic cirrhosis of liver with ascites (CMS/HCC) (HCC) Chronic respiratory failure with hypoxia (HCC) Hyponatremia Hyposmolality and/or hyponatremia Moderate asthma, unspecified whether complicated, unspecified whether persistent- Primary Chronic obstructive pulmonary disease, unspecified COPD type (HCC) Chronic respiratory failure with hypoxia (HCC) Primary hypertension Unspecified essential hypertension Nonintractable epilepsy without status epilepticus, unspecified epilepsy type (HCC) Gastroesophageal reflux disease without esophagitis Esophageal reflux Mixed hyperlipidemia Hyponatremia Hyposmolality and/or hyponatremia Chronic nausea Nausea alone documented in this encounter [facility]* Diagnosis Acute non-recurrent frontal sinusitis- Primary Primary hypertension Unspecified essential hypertension Seizure disorder ([facility]) ([facility])- Primary Unspecified epilepsy without mention of intractable epilepsy Chronic obstructive pulmonary disease, unspecified COPD type (HCC) Primary hypertension Unspecified essential hypertension Gastroesophageal reflux disease without esophagitis Esophageal reflux Mixed hyperlipidemia Current mild episode of major depressive disorder, unspecified whether recurrent (HCC) Anxiety Anxiety state, unspecified Annual physical exam- Primary Routine general medical examination at a health care facility Seizure disorder ([facility]) ([facility]) Unspecified epilepsy without mention of intractable epilepsy Moderate asthma, unspecified whether complicated, unspecified whether persistent Chronic obstructive pulmonary disease, unspecified COPD type ([facility]) Primary hypertension Unspecified essential hypertension Fibromyalgia Unspecified myalgia and myositis Vitamin D deficiency Anxiety Anxiety state, unspecified Current mild episode of major depressive disorder, unspecified whether recurrent (HCC) Mixed hyperlipidemia Current smoker Hypoxemia Screening for diabetes mellitus Encounter for screening mammogram for malignant neoplasm of breast Need for pneumococcal vaccination Need for prophylactic vaccination against streptococcus pneumoniae (pneumococcus) Chronic obstructive pulmonary disease, unspecified COPD type (HCC)- Primary Primary hypertension Unspecified essential hypertension Gastroesophageal reflux disease without esophagitis Esophageal reflux Chronic nausea Nausea alone Current mild episode of major depressive disorder, unspecified whether recurrent (HCC) Anxiety Anxiety state, unspecified Acute non-recurrent pansinusitis- Primary Bronchitis Bronchitis, not specified as acute or chronic Primary hypertension Unspecified essential hypertension Chronic obstructive pulmonary disease, unspecified COPD type (HCC)- Primary Seizure disorder ([facility]) ([facility]) Unspecified epilepsy without mention of intractable epilepsy Primary hypertension Unspecified essential hypertension Gastroesophageal reflux disease without esophagitis Esophageal reflux Fibromyalgia Unspecified myalgia and myositis Vitamin D deficiency Current mild episode of major depressive disorder, unspecified whether recurrent (HCC) Anxiety Anxiety state, unspecified Current smoker Mixed hyperlipidemia Hyponatremia Hyposmolality and/or hyponatremia Chronic obstructive pulmonary disease, unspecified COPD type (HCC)- Primary Abnormal liver function tests Hyponatremia Hyposmolality and/or hyponatremia Falls frequently Personal history of fall Ascites due to chronic alcoholic hepatitis Iron deficiency anemia, unspecified iron deficiency anemia type Generalized weakness Chronic obstructive pulmonary disease, unspecified (HCC)- Primary Primary hypertension Unspecified essential hypertension Hyperlipidemia, unspecified hyperlipidemia type Epilepsy, unspecified, not intractable, without status epilepticus (HCC) Vitamin D deficiency, unspecified Alcoholic cirrhosis of liver with ascites (CMS/HCC) (HCC) Chronic respiratory failure with hypoxia (HCC) Hyponatremia Hyposmolality and/or hyponatremia Moderate asthma, unspecified whether complicated, unspecified whether persistent- Primary Chronic obstructive pulmonary disease, unspecified COPD type (HCC) Chronic respiratory failure with hypoxia (HCC) Primary hypertension Unspecified essential hypertension Nonintractable epilepsy without status epilepticus, unspecified epilepsy type (HCC) Gastroesophageal reflux disease without esophagitis Esophageal reflux Mixed hyperlipidemia Hyponatremia Hyposmolality and/or hyponatremia Chronic obstructive pulmonary disease, unspecified (HCC) [facility] Diagnosis Acute non-recurrent frontal sinusitis- Primary Primary hypertension Unspecified essential hypertension Seizure disorder (CMS/HCC) (HCC)- Primary Unspecified epilepsy without mention of intractable epilepsy Chronic obstructive pulmonary disease, unspecified COPD type (HCC) Primary hypertension Unspecified essential hypertension Gastroesophageal reflux disease without esophagitis Esophageal reflux Mixed hyperlipidemia Current mild episode of major depressive disorder, unspecified whether recurrent (HCC) Anxiety Anxiety state, unspecified Annual physical exam- Primary Routine general medical examination at a health care facility Seizure disorder (CMS/HCC) (HCC) Unspecified epilepsy without mention of intractable epilepsy Moderate asthma, unspecified whether complicated, unspecified whether persistent Chronic obstructive pulmonary disease, unspecified COPD type (HCC) Primary hypertension Unspecified essential hypertension Fibromyalgia Unspecified myalgia and myositis Vitamin D deficiency Anxiety Anxiety state, unspecified Current mild episode of major depressive disorder, unspecified whether recurrent (HCC) Mixed hyperlipidemia Current smoker Hypoxemia Screening for diabetes mellitus Encounter for screening mammogram for malignant neoplasm of breast Need for pneumococcal vaccination Need for prophylactic vaccination against streptococcus pneumoniae (pneumococcus) Chronic obstructive pulmonary disease, unspecified COPD type (HCC)- Primary Primary hypertension Unspecified essential hypertension Gastroesophageal reflux disease without esophagitis Esophageal reflux Chronic nausea Nausea alone Current mild episode of major depressive disorder, unspecified whether recurrent (HCC) Anxiety Anxiety state, unspecified Acute non-recurrent pansinusitis- Primary Bronchitis Bronchitis, not specified as acute or chronic Primary hypertension Unspecified essential hypertension Chronic obstructive pulmonary disease, unspecified COPD type (HCC)- Primary Seizure disorder (CMS/HCC) (HCC) Unspecified epilepsy without mention of intractable epilepsy Primary hypertension Unspecified essential hypertension Gastroesophageal reflux disease without esophagitis Esophageal reflux Fibromyalgia Unspecified myalgia and myositis Vitamin D deficiency Current mild episode of major depressive disorder, unspecified whether recurrent (HCC) Anxiety Anxiety state, unspecified Current smoker Mixed hyperlipidemia Hyponatremia Hyposmolality and/or hyponatremia Chronic obstructive pulmonary disease, unspecified COPD type ([facility])- Primary Abnormal liver function tests Hyponatremia Hyposmolality and/or hyponatremia Falls frequently Personal history of fall Ascites due to chronic alcoholic hepatitis Iron deficiency anemia, unspecified iron deficiency anemia type Generalized weakness Chronic obstructive pulmonary disease, unspecified ([facility])- Primary Primary hypertension Unspecified essential hypertension Hyperlipidemia, unspecified hyperlipidemia type Epilepsy, unspecified, not intractable, without status epilepticus (HCC) Vitamin D deficiency, unspecified Alcoholic cirrhosis of liver with ascites (CMS/HCC) (HCC) Chronic respiratory failure with hypoxia ([facility]) Hyponatremia Hyposmolality and/or hyponatremia Moderate asthma, unspecified whether complicated, unspecified whether persistent- Primary Chronic obstructive pulmonary disease, unspecified COPD type (HCC) Chronic respiratory failure with hypoxia (HCC) Primary hypertension Unspecified essential hypertension Nonintractable epilepsy without status epilepticus, unspecified epilepsy type (HCC) Gastroesophageal reflux disease without esophagitis Esophageal reflux Mixed hyperlipidemia Hyponatremia Hyposmolality and/or hyponatremia COPD with acute exacerbation ([facility])- Primary Acute non-recurrent frontal sinusitis Chronic obstructive pulmonary disease, unspecified COPD type (HCC) Moderate asthma, unspecified whether complicated, unspecified whether persistent [facility] Diagnosis Acute non-recurrent frontal sinusitis- Primary Primary hypertension Unspecified essential hypertension Seizure disorder (CMS/HCC) (HCC)- Primary Unspecified epilepsy without mention of intractable epilepsy Chronic obstructive pulmonary disease, unspecified COPD type (HCC) Primary hypertension Unspecified essential hypertension Gastroesophageal reflux disease without esophagitis Esophageal reflux Mixed hyperlipidemia Current mild episode of major depressive disorder, unspecified whether recurrent (HCC) Anxiety Anxiety state, unspecified Annual physical exam- Primary Routine general medical examination at a health care facility Seizure disorder (CMS/HCC) (HCC) Unspecified epilepsy without mention of intractable epilepsy Moderate asthma, unspecified whether complicated, unspecified whether persistent Chronic obstructive pulmonary disease, unspecified COPD type ([facility]) Primary hypertension Unspecified essential hypertension Fibromyalgia Unspecified myalgia and myositis Vitamin D deficiency Anxiety Anxiety state, unspecified Current mild episode of major depressive disorder, unspecified whether recurrent (HCC) Mixed hyperlipidemia Current smoker Hypoxemia Screening for diabetes mellitus Encounter for screening mammogram for malignant neoplasm of breast Need for pneumococcal vaccination Need for prophylactic vaccination against streptococcus pneumoniae (pneumococcus) Chronic obstructive pulmonary disease, unspecified COPD type (HCC)- Primary Primary hypertension Unspecified essential hypertension Gastroesophageal reflux disease without esophagitis Esophageal reflux Chronic nausea Nausea alone Current mild episode of major depressive disorder, unspecified whether recurrent (HCC) Anxiety Anxiety state, unspecified Acute non-recurrent pansinusitis- Primary Bronchitis Bronchitis, not specified as acute or chronic Primary hypertension Unspecified essential hypertension Chronic obstructive pulmonary disease, unspecified COPD type (HCC)- Primary Seizure disorder (CMS/HCC) (HCC) Unspecified epilepsy without mention of intractable epilepsy Primary hypertension Unspecified essential hypertension Gastroesophageal reflux disease without esophagitis Esophageal reflux Fibromyalgia Unspecified myalgia and myositis Vitamin D deficiency Current mild episode of major depressive disorder, unspecified whether recurrent (HCC) Anxiety Anxiety state, unspecified Current smoker Mixed hyperlipidemia Hyponatremia Hyposmolality and/or hyponatremia Chronic obstructive pulmonary disease, unspecified COPD type (HCC)- Primary Abnormal liver function tests Hyponatremia Hyposmolality and/or hyponatremia Falls frequently Personal history of fall Ascites due to chronic alcoholic hepatitis Iron deficiency anemia, unspecified iron deficiency anemia type Generalized weakness Chronic obstructive pulmonary disease, unspecified (HCC)- Primary Primary hypertension Unspecified essential hypertension Hyperlipidemia, unspecified hyperlipidemia type Epilepsy, unspecified, not intractable, without status epilepticus (HCC) Vitamin D deficiency, unspecified Alcoholic cirrhosis of liver with ascites (CMS/HCC) (HCC) Chronic respiratory failure with hypoxia (HCC) Hyponatremia Hyposmolality and/or hyponatremia Moderate asthma, unspecified whether complicated, unspecified whether persistent- Primary Chronic obstructive pulmonary disease, unspecified COPD type (HCC) Chronic respiratory failure with hypoxia (HCC) Primary hypertension Unspecified essential hypertension Nonintractable epilepsy without status epilepticus, unspecified epilepsy type (HCC) Gastroesophageal reflux disease without esophagitis Esophageal reflux Mixed hyperlipidemia Hyponatremia Hyposmolality and/or hyponatremia COPD with acute exacerbation (HCC)- Primary Acute non-recurrent frontal sinusitis Chronic obstructive pulmonary disease, unspecified COPD type (HCC) Moderate asthma, unspecified whether complicated, unspecified whether persistent Incontinence overflow, stress female- Primary Female stress incontinence Fecal smearing Chronic respiratory failure with hypoxia (HCC) Fibromyalgia Unspecified myalgia and myositis [facility] Acute non-recurrent frontal sinusitis- Primary Primary hypertension Unspecified essential hypertension Seizure disorder ([facility]) ([facility])- Primary Unspecified epilepsy without mention of intractable epilepsy Chronic obstructive pulmonary disease, unspecified COPD type (HCC) Primary hypertension Unspecified essential hypertension Gastroesophageal reflux disease without esophagitis Esophageal reflux Mixed hyperlipidemia Current mild episode of major depressive disorder, unspecified whether recurrent (HCC) Anxiety Anxiety state, unspecified Annual physical exam- Primary Routine general medical examination at a health care facility Seizure disorder ([facility]) ([facility]) Unspecified epilepsy without mention of intractable epilepsy Moderate asthma, unspecified whether complicated, unspecified whether persistent Chronic obstructive pulmonary disease, unspecified COPD type ([facility]) Primary hypertension Unspecified essential hypertension Fibromyalgia Unspecified myalgia and myositis Vitamin D deficiency Anxiety Anxiety state, unspecified Current mild episode of major depressive disorder, unspecified whether recurrent (HCC) Mixed hyperlipidemia Current smoker Hypoxemia Screening for diabetes mellitus Encounter for screening mammogram for malignant neoplasm of breast Need for pneumococcal vaccination Need for prophylactic vaccination against streptococcus pneumoniae (pneumococcus) Chronic obstructive pulmonary disease, unspecified COPD type (HCC)- Primary Primary hypertension Unspecified essential hypertension Gastroesophageal reflux disease without esophagitis Esophageal reflux Chronic nausea Nausea alone Current mild episode of major depressive disorder, unspecified whether recurrent (HCC) Anxiety Anxiety state, unspecified Acute non-recurrent pansinusitis- Primary Bronchitis Bronchitis, not specified as acute or chronic Primary hypertension Unspecified essential hypertension Chronic obstructive pulmonary disease, unspecified COPD type ([facility])- Primary Seizure disorder ([facility]) ([facility]) Unspecified epilepsy without mention of intractable epilepsy Primary hypertension Unspecified essential hypertension Gastroesophageal reflux disease without esophagitis Esophageal reflux Fibromyalgia Unspecified myalgia and myositis Vitamin D deficiency Current mild episode of major depressive disorder, unspecified whether recurrent (HCC) Anxiety Anxiety state, unspecified Current smoker Mixed hyperlipidemia Hyponatremia Hyposmolality and/or hyponatremia Chronic obstructive pulmonary disease, unspecified COPD type (HCC)- Primary Abnormal liver function tests Hyponatremia Hyposmolality and/or hyponatremia Falls frequently Personal history of fall Ascites due to chronic alcoholic hepatitis Iron deficiency anemia, unspecified iron deficiency anemia type Generalized weakness Chronic obstructive pulmonary disease, unspecified (HCC)- Primary Primary hypertension Unspecified essential hypertension Hyperlipidemia, unspecified hyperlipidemia type Epilepsy, unspecified, not intractable, without status epilepticus (HCC) Vitamin D deficiency, unspecified Alcoholic cirrhosis of liver with ascites (CMS/HCC) (HCC) Chronic respiratory failure with hypoxia (HCC) Hyponatremia Hyposmolality and/or hyponatremia Moderate asthma, unspecified whether complicated, unspecified whether persistent- Primary Chronic obstructive pulmonary disease, unspecified COPD type (HCC) Chronic respiratory failure with hypoxia (HCC) Primary hypertension Unspecified essential hypertension Nonintractable epilepsy without status epilepticus, unspecified epilepsy type (HCC) Gastroesophageal reflux disease without esophagitis Esophageal reflux Mixed hyperlipidemia Hyponatremia Hyposmolality and/or hyponatremia COPD with acute exacerbation (HCC)- Primary Acute non-recurrent frontal sinusitis Chronic obstructive pulmonary disease, unspecified COPD type (HCC) Moderate asthma, unspecified whether complicated, unspecified whether persistent Incontinence overflow, stress female- Primary Female stress incontinence Fecal smearing Chronic respiratory failure with hypoxia (HCC) Fibromyalgia Unspecified myalgia and myositis Glossitis- Primary [facility] Diagnosis Acute non-recurrent frontal sinusitis- Primary Primary hypertension Unspecified essential hypertension Seizure disorder (CMS/HCC) (HCC)- Primary Unspecified epilepsy without mention of intractable epilepsy Chronic obstructive pulmonary disease, unspecified COPD type (HCC) Primary hypertension Unspecified essential hypertension Gastroesophageal reflux disease without esophagitis Esophageal reflux Mixed hyperlipidemia Current mild episode of major depressive disorder, unspecified whether recurrent (HCC) Anxiety Anxiety state, unspecified Annual physical exam- Primary Routine general medical examination at a health care facility Seizure disorder (CMS/HCC) (HCC) Unspecified epilepsy without mention of intractable epilepsy Moderate asthma, unspecified whether complicated, unspecified whether persistent Chronic obstructive pulmonary disease, unspecified COPD type (HCC) Primary hypertension Unspecified essential hypertension Fibromyalgia Unspecified myalgia and myositis Vitamin D deficiency Anxiety Anxiety state, unspecified Current mild episode of major depressive disorder, unspecified whether recurrent (HCC) Mixed hyperlipidemia Current smoker Hypoxemia Screening for diabetes mellitus Encounter for screening mammogram for malignant neoplasm of breast Need for pneumococcal vaccination Need for prophylactic vaccination against streptococcus pneumoniae (pneumococcus) Chronic obstructive pulmonary disease, unspecified COPD type (HCC)- Primary Primary hypertension Unspecified essential hypertension Gastroesophageal reflux disease without esophagitis Esophageal reflux Chronic nausea Nausea alone Current mild episode of major depressive disorder, unspecified whether recurrent (HCC) Anxiety Anxiety state, unspecified Acute non-recurrent pansinusitis- Primary Bronchitis Bronchitis, not specified as acute or chronic Primary hypertension Unspecified essential hypertension Chronic obstructive pulmonary disease, unspecified COPD type (HCC)- Primary Seizure disorder (CMS/HCC) (HCC) Unspecified epilepsy without mention of intractable epilepsy Primary hypertension Unspecified essential hypertension Gastroesophageal reflux disease without esophagitis Esophageal reflux Fibromyalgia Unspecified myalgia and myositis Vitamin D deficiency Current mild episode of major depressive disorder, unspecified whether recurrent (HCC) Anxiety Anxiety state, unspecified Current smoker Mixed hyperlipidemia Hyponatremia Hyposmolality and/or hyponatremia Chronic obstructive pulmonary disease, unspecified COPD type (HCC)- Primary Abnormal liver function tests Hyponatremia Hyposmolality and/or hyponatremia Falls frequently Personal history of fall Ascites due to chronic alcoholic hepatitis Iron deficiency anemia, unspecified iron deficiency anemia type Generalized weakness Chronic obstructive pulmonary disease, unspecified (HCC)- Primary Primary hypertension Unspecified essential hypertension Hyperlipidemia, unspecified hyperlipidemia type Epilepsy, unspecified, not intractable, without status epilepticus (HCC) Vitamin D deficiency, unspecified Alcoholic cirrhosis of liver with ascites (CMS/HCC) (HCC) Chronic respiratory failure with hypoxia (HCC) Hyponatremia Hyposmolality and/or hyponatremia Moderate asthma, unspecified whether complicated, unspecified whether persistent- Primary Chronic obstructive pulmonary disease, unspecified COPD type (HCC) Chronic respiratory failure with hypoxia (HCC) Primary hypertension Unspecified essential hypertension Nonintractable epilepsy without status epilepticus, unspecified epilepsy type (HCC) Gastroesophageal reflux disease without esophagitis Esophageal reflux Mixed hyperlipidemia Hyponatremia Hyposmolality and/or hyponatremia COPD with acute exacerbation (HCC)- Primary Acute non-recurrent frontal sinusitis Chronic obstructive pulmonary disease, unspecified COPD type (HCC) Moderate asthma, unspecified whether complicated, unspecified whether persistent Incontinence overflow, stress female- Primary Female stress incontinence Fecal smearing Chronic respiratory failure with hypoxia (HCC) Fibromyalgia Unspecified myalgia and myositis Glossitis- Primary Chronic obstructive pulmonary disease, unspecified COPD type (HCC)- Primary Chronic respiratory failure with hypoxia (HCC) Nonintractable epilepsy without status epilepticus, unspecified epilepsy type (HCC) Primary hypertension Unspecified essential hypertension Chronic nausea Nausea alone Gastroesophageal reflux disease without esophagitis Esophageal reflux Vitamin D deficiency, unspecified Mixed hyperlipidemia Current smoker Anxiety Anxiety state, unspecified [facility] Diagnosis Acute non-recurrent frontal sinusitis- Primary Primary hypertension Unspecified essential hypertension Seizure disorder ([facility]/HCC) ([facility])- Primary Unspecified epilepsy without mention of intractable epilepsy Chronic obstructive pulmonary disease, unspecified COPD type (HCC) Primary hypertension Unspecified essential hypertension Gastroesophageal reflux disease without esophagitis Esophageal reflux Mixed hyperlipidemia Current mild episode of major depressive disorder, unspecified whether recurrent (HCC) Anxiety Anxiety state, unspecified Annual physical exam- Primary Routine general medical examination at a health care facility Seizure disorder ([facility]/HCC) ([facility]) Unspecified epilepsy without mention of intractable epilepsy Moderate asthma, unspecified whether complicated, unspecified whether persistent Chronic obstructive pulmonary disease, unspecified COPD type (HCC) Primary hypertension Unspecified essential hypertension Fibromyalgia Unspecified myalgia and myositis Vitamin D deficiency Anxiety Anxiety state, unspecified Current mild episode of major depressive disorder, unspecified whether recurrent (HCC) Mixed hyperlipidemia Current smoker Hypoxemia Screening for diabetes mellitus Encounter for screening mammogram for malignant neoplasm of breast Need for pneumococcal vaccination Need for prophylactic vaccination against streptococcus pneumoniae (pneumococcus) Chronic obstructive pulmonary disease, unspecified COPD type ([facility])- Primary Primary hypertension Unspecified essential hypertension Gastroesophageal reflux disease without esophagitis Esophageal reflux Chronic nausea Nausea alone Current mild episode of major depressive disorder, unspecified whether recurrent (HCC) Anxiety Anxiety state, unspecified Acute non-recurrent pansinusitis- Primary Bronchitis Bronchitis, not specified as acute or chronic Primary hypertension Unspecified essential hypertension Chronic obstructive pulmonary disease, unspecified COPD type ([facility])- Primary Seizure disorder ([facility]) ([facility]) Unspecified epilepsy without mention of intractable epilepsy Primary hypertension Unspecified essential hypertension Gastroesophageal reflux disease without esophagitis Esophageal reflux Fibromyalgia Unspecified myalgia and myositis Vitamin D deficiency Current mild episode of major depressive disorder, unspecified whether recurrent (HCC) Anxiety Anxiety state, unspecified Current smoker Mixed hyperlipidemia Hyponatremia Hyposmolality and/or hyponatremia Chronic obstructive pulmonary disease, unspecified COPD type (HCC)- Primary Abnormal liver function tests Hyponatremia Hyposmolality and/or hyponatremia Falls frequently Personal history of fall Ascites due to chronic alcoholic hepatitis Iron deficiency anemia, unspecified iron deficiency anemia type Generalized weakness Chronic obstructive pulmonary disease, unspecified ([facility])- Primary Primary hypertension Unspecified essential hypertension Hyperlipidemia, unspecified hyperlipidemia type Epilepsy, unspecified, not intractable, without status epilepticus (HCC) Vitamin D deficiency, unspecified Alcoholic cirrhosis of liver with ascites ([facility]) ([facility]) Chronic respiratory failure with hypoxia ([facility]) Hyponatremia Hyposmolality and/or hyponatremia Moderate asthma, unspecified whether complicated, unspecified whether persistent- Primary Chronic obstructive pulmonary disease, unspecified COPD type (HCC) Chronic respiratory failure with hypoxia (HCC) Primary hypertension Unspecified essential hypertension Nonintractable epilepsy without status epilepticus, unspecified epilepsy type (HCC) Gastroesophageal reflux disease without esophagitis Esophageal reflux Mixed hyperlipidemia Hyponatremia Hyposmolality and/or hyponatremia COPD with acute exacerbation (HCC)- Primary Acute non-recurrent frontal sinusitis Chronic obstructive pulmonary disease, unspecified COPD type (HCC) Moderate asthma, unspecified whether complicated, unspecified whether persistent Incontinence overflow, stress female- Primary Female stress incontinence Fecal smearing Chronic respiratory failure with hypoxia (HCC) Fibromyalgia Unspecified myalgia and myositis Glossitis- Primary Chronic obstructive pulmonary disease, unspecified COPD type (HCC)- Primary Chronic respiratory failure with hypoxia (HCC) Nonintractable epilepsy without status epilepticus, unspecified epilepsy type (HCC) Primary hypertension Unspecified essential hypertension Chronic nausea Nausea alone Gastroesophageal reflux disease without esophagitis Esophageal reflux Vitamin D deficiency, unspecified Mixed hyperlipidemia Current smoker Anxiety Anxiety state, unspecified Hospital discharge follow-up- Primary Other follow-up examination Acute on chronic respiratory failure with hypoxia (HCC) Pneumonia due to infectious organism, unspecified laterality, unspecified part of lung Hypokalemia Hypopotassemia Hypomagnesemia Disorders of magnesium metabolism Alcoholic cirrhosis of liver with ascites (CMS/HCC) (HCC) Dependence on continuous supplemental oxygen Chronic obstructive pulmonary disease, unspecified COPD type (HCC) [facility] Diagnosis Acute non-recurrent frontal sinusitis- Primary Primary hypertension Unspecified essential hypertension Seizure disorder (CMS/HCC) (HCC)- Primary Unspecified epilepsy without mention of intractable epilepsy Chronic obstructive pulmonary disease, unspecified COPD type (HCC) Primary hypertension Unspecified essential hypertension Gastroesophageal reflux disease without esophagitis Esophageal reflux Mixed hyperlipidemia Current mild episode of major depressive disorder, unspecified whether recurrent (HCC) Anxiety Anxiety state, unspecified Annual physical exam- Primary Routine general medical examination at a health care facility Seizure disorder (CMS/HCC) (HCC) Unspecified epilepsy without mention of intractable epilepsy Moderate asthma, unspecified whether complicated, unspecified whether persistent Chronic obstructive pulmonary disease, unspecified COPD type (HCC) Primary hypertension Unspecified essential hypertension Fibromyalgia Unspecified myalgia and myositis Vitamin D deficiency Anxiety Anxiety state, unspecified Current mild episode of major depressive disorder, unspecified whether recurrent (HCC) Mixed hyperlipidemia Current smoker Hypoxemia Screening for diabetes mellitus Encounter for screening mammogram for malignant neoplasm of breast Need for pneumococcal vaccination Need for prophylactic vaccination against streptococcus pneumoniae (pneumococcus) Chronic obstructive pulmonary disease, unspecified COPD type (HCC)- Primary Primary hypertension Unspecified essential hypertension Gastroesophageal reflux disease without esophagitis Esophageal reflux Chronic nausea Nausea alone Current mild episode of major depressive disorder, unspecified whether recurrent (HCC) Anxiety Anxiety state, unspecified Acute non-recurrent pansinusitis- Primary Bronchitis Bronchitis, not specified as acute or chronic Primary hypertension Unspecified essential hypertension Chronic obstructive pulmonary disease, unspecified COPD type (HCC)- Primary Seizure disorder (CMS/HCC) (HCC) Unspecified epilepsy without mention of intractable epilepsy Primary hypertension Unspecified essential hypertension Gastroesophageal reflux disease without esophagitis Esophageal reflux Fibromyalgia Unspecified myalgia and myositis Vitamin D deficiency Current mild episode of major depressive disorder, unspecified whether recurrent (HCC) Anxiety Anxiety state, unspecified Current smoker Mixed hyperlipidemia Hyponatremia Hyposmolality and/or hyponatremia Chronic obstructive pulmonary disease, unspecified COPD type (HCC)- Primary Abnormal liver function tests Hyponatremia Hyposmolality and/or hyponatremia Falls frequently Personal history of fall Ascites due to chronic alcoholic hepatitis Iron deficiency anemia, unspecified iron deficiency anemia type Generalized weakness Chronic obstructive pulmonary disease, unspecified (HCC)- Primary Primary hypertension Unspecified essential hypertension Hyperlipidemia, unspecified hyperlipidemia type Epilepsy, unspecified, not intractable, without status epilepticus (HCC) Vitamin D deficiency, unspecified Alcoholic cirrhosis of liver with ascites (CMS/HCC) (HCC) Chronic respiratory failure with hypoxia (HCC) Hyponatremia Hyposmolality and/or hyponatremia Moderate asthma, unspecified whether complicated, unspecified whether persistent- Primary Chronic obstructive pulmonary disease, unspecified COPD type (HCC) Chronic respiratory failure with hypoxia (HCC) Primary hypertension Unspecified essential hypertension Nonintractable epilepsy without status epilepticus, unspecified epilepsy type (HCC) Gastroesophageal reflux disease without esophagitis Esophageal reflux Mixed hyperlipidemia Hyponatremia Hyposmolality and/or hyponatremia COPD with acute exacerbation (HCC)- Primary Acute non-recurrent frontal sinusitis Chronic obstructive pulmonary disease, unspecified COPD type (HCC) Moderate asthma, unspecified whether complicated, unspecified whether persistent Incontinence overflow, stress female- Primary Female stress incontinence Fecal smearing Chronic respiratory failure with hypoxia ([facility]) Fibromyalgia Unspecified myalgia and myositis Glossitis- Primary Chronic obstructive pulmonary disease, unspecified COPD type (HCC)- Primary Chronic respiratory failure with hypoxia (HCC) Nonintractable epilepsy without status epilepticus, unspecified epilepsy type (HCC) Primary hypertension Unspecified essential hypertension Chronic nausea Nausea alone Gastroesophageal reflux disease without esophagitis Esophageal reflux Vitamin D deficiency, unspecified Mixed hyperlipidemia Current smoker Anxiety Anxiety state, unspecified Primary hypertension Unspecified essential hypertension [facility]* Diagnosis Acute non-recurrent frontal sinusitis- Primary Primary hypertension Unspecified essential hypertension Seizure disorder ([facility]/HCC) (HCC)- Primary Unspecified epilepsy without mention of intractable epilepsy Chronic obstructive pulmonary disease, unspecified COPD type (HCC) Primary hypertension Unspecified essential hypertension Gastroesophageal reflux disease without esophagitis Esophageal reflux Mixed hyperlipidemia Current mild episode of major depressive disorder, unspecified whether recurrent (HCC) Anxiety Anxiety state, unspecified Annual physical exam- Primary Routine general medical examination at a health care facility Seizure disorder (CMS/HCC) (HCC) Unspecified epilepsy without mention of intractable epilepsy Moderate asthma, unspecified whether complicated, unspecified whether persistent Chronic obstructive pulmonary disease, unspecified COPD type (HCC) Primary hypertension Unspecified essential hypertension Fibromyalgia Unspecified myalgia and myositis Vitamin D deficiency Anxiety Anxiety state, unspecified Current mild episode of major depressive disorder, unspecified whether recurrent (HCC) Mixed hyperlipidemia Current smoker Hypoxemia Screening for diabetes mellitus Encounter for screening mammogram for malignant neoplasm of breast Need for pneumococcal vaccination Need for prophylactic vaccination against streptococcus pneumoniae (pneumococcus) Chronic obstructive pulmonary disease, unspecified COPD type (HCC)- Primary Primary hypertension Unspecified essential hypertension Gastroesophageal reflux disease without esophagitis Esophageal reflux Chronic nausea Nausea alone Current mild episode of major depressive disorder, unspecified whether recurrent (HCC) Anxiety Anxiety state, unspecified Acute non-recurrent pansinusitis- Primary Bronchitis Bronchitis, not specified as acute or chronic Primary hypertension Unspecified essential hypertension Chronic obstructive pulmonary disease, unspecified COPD type (HCC)- Primary Seizure disorder (CMS/[facility]) (HCC) Unspecified epilepsy without mention of intractable epilepsy Primary hypertension Unspecified essential hypertension Gastroesophageal reflux disease without esophagitis Esophageal reflux Fibromyalgia Unspecified myalgia and myositis Vitamin D deficiency Current mild episode of major depressive disorder, unspecified whether recurrent (HCC) Anxiety Anxiety state, unspecified Current smoker Mixed hyperlipidemia Hyponatremia Hyposmolality and/or hyponatremia Chronic obstructive pulmonary disease, unspecified COPD type (HCC)- Primary Abnormal liver function tests Hyponatremia Hyposmolality and/or hyponatremia Falls frequently Personal history of fall Ascites due to chronic alcoholic hepatitis Iron deficiency anemia, unspecified iron deficiency anemia type Generalized weakness Chronic obstructive pulmonary disease, unspecified (HCC)- Primary Primary hypertension Unspecified essential hypertension Hyperlipidemia, unspecified hyperlipidemia type Epilepsy, unspecified, not intractable, without status epilepticus (HCC) Vitamin D deficiency, unspecified Alcoholic cirrhosis of liver with ascites (CMS/HCC) (HCC) Chronic respiratory failure with hypoxia (HCC) Hyponatremia Hyposmolality and/or hyponatremia Moderate asthma, unspecified whether complicated, unspecified whether persistent- Primary Chronic obstructive pulmonary disease, unspecified COPD type (HCC) Chronic respiratory failure with hypoxia (HCC) Primary hypertension Unspecified essential hypertension Nonintractable epilepsy without status epilepticus, unspecified epilepsy type (HCC) Gastroesophageal reflux disease without esophagitis Esophageal reflux Mixed hyperlipidemia Hyponatremia Hyposmolality and/or hyponatremia COPD with acute exacerbation (HCC)- Primary Acute non-recurrent frontal sinusitis Chronic obstructive pulmonary disease, unspecified COPD type (HCC) Moderate asthma, unspecified whether complicated, unspecified whether persistent Incontinence overflow, stress female- Primary Female stress incontinence Fecal smearing Chronic respiratory failure with hypoxia (HCC) Fibromyalgia Unspecified myalgia and myositis Glossitis- Primary Chronic obstructive pulmonary disease, unspecified COPD type (HCC)- Primary Chronic respiratory failure with hypoxia (HCC) Nonintractable epilepsy without status epilepticus, unspecified epilepsy type (HCC) Primary hypertension Unspecified essential hypertension Chronic nausea Nausea alone Gastroesophageal reflux disease without esophagitis Esophageal reflux Vitamin D deficiency, unspecified Mixed hyperlipidemia Current smoker Anxiety Anxiety state, unspecified Chronic nausea Nausea alone [facility] Diagnosis Acute non-recurrent frontal sinusitis- Primary Primary hypertension Unspecified essential hypertension Seizure disorder (CMS/HCC) (HCC)- Primary Unspecified epilepsy without mention of intractable epilepsy Chronic obstructive pulmonary disease, unspecified COPD type (HCC) Primary hypertension Unspecified essential hypertension Gastroesophageal reflux disease without esophagitis Esophageal reflux Mixed hyperlipidemia Current mild episode of major depressive disorder, unspecified whether recurrent (HCC) Anxiety Anxiety state, unspecified Annual physical exam- Primary Routine general medical examination at a health care facility Seizure disorder (CMS/HCC) (HCC) Unspecified epilepsy without mention of intractable epilepsy Moderate asthma, unspecified whether complicated, unspecified whether persistent Chronic obstructive pulmonary disease, unspecified COPD type (HCC) Primary hypertension Unspecified essential hypertension Fibromyalgia Unspecified myalgia and myositis Vitamin D deficiency Anxiety Anxiety state, unspecified Current mild episode of major depressive disorder, unspecified whether recurrent (HCC) Mixed hyperlipidemia Current smoker Hypoxemia Screening for diabetes mellitus Encounter for screening mammogram for malignant neoplasm of breast Need for pneumococcal vaccination Need for prophylactic vaccination against streptococcus pneumoniae (pneumococcus) Chronic obstructive pulmonary disease, unspecified COPD type (HCC)- Primary Primary hypertension Unspecified essential hypertension Gastroesophageal reflux disease without esophagitis Esophageal reflux Chronic nausea Nausea alone Current mild episode of major depressive disorder, unspecified whether recurrent (HCC) Anxiety Anxiety state, unspecified Acute non-recurrent pansinusitis- Primary Bronchitis Bronchitis, not specified as acute or chronic Primary hypertension Unspecified essential hypertension Chronic obstructive pulmonary disease, unspecified COPD type (HCC)- Primary Seizure disorder (CMS/HCC) (HCC) Unspecified epilepsy without mention of intractable epilepsy Primary hypertension Unspecified essential hypertension Gastroesophageal reflux disease without esophagitis Esophageal reflux Fibromyalgia Unspecified myalgia and myositis Vitamin D deficiency Current mild episode of major depressive disorder, unspecified whether recurrent (HCC) Anxiety Anxiety state, unspecified Current smoker Mixed hyperlipidemia Hyponatremia Hyposmolality and/or hyponatremia Chronic obstructive pulmonary disease, unspecified COPD type (HCC)- Primary Abnormal liver function tests Hyponatremia Hyposmolality and/or hyponatremia Falls frequently Personal history of fall Ascites due to chronic alcoholic hepatitis Iron deficiency anemia, unspecified iron deficiency anemia type Generalized weakness Chronic obstructive pulmonary disease, unspecified (HCC)- Primary Primary hypertension Unspecified essential hypertension Hyperlipidemia, unspecified hyperlipidemia type Epilepsy, unspecified, not intractable, without status epilepticus (HCC) Vitamin D deficiency, unspecified Alcoholic cirrhosis of liver with ascites (CMS/HCC) (HCC) Chronic respiratory failure with hypoxia (HCC) Hyponatremia Hyposmolality and/or hyponatremia Moderate asthma, unspecified whether complicated, unspecified whether persistent- Primary Chronic obstructive pulmonary disease, unspecified COPD type (HCC) Chronic respiratory failure with hypoxia (HCC) Primary hypertension Unspecified essential hypertension Nonintractable epilepsy without status epilepticus, unspecified epilepsy type (HCC) Gastroesophageal reflux disease without esophagitis Esophageal reflux Mixed hyperlipidemia Hyponatremia Hyposmolality and/or hyponatremia COPD with acute exacerbation (HCC)- Primary Acute non-recurrent frontal sinusitis Chronic obstructive pulmonary disease, unspecified COPD type (HCC) Moderate asthma, unspecified whether complicated, unspecified whether persistent Incontinence overflow, stress female- Primary Female stress incontinence Fecal smearing Chronic respiratory failure with hypoxia (HCC) Fibromyalgia Unspecified myalgia and myositis Glossitis- Primary Chronic obstructive pulmonary disease, unspecified COPD type (HCC)- Primary Chronic respiratory failure with hypoxia (HCC) Nonintractable epilepsy without status epilepticus, unspecified epilepsy type (HCC) Primary hypertension Unspecified essential hypertension Chronic nausea Nausea alone Gastroesophageal reflux disease without esophagitis Esophageal reflux Vitamin D deficiency, unspecified Mixed hyperlipidemia Current smoker Anxiety Anxiety state, unspecified Sinus congestion- Primary Other diseases of nasal cavity and sinuses [facility] Diagnosis Acute non-recurrent frontal sinusitis- Primary Primary hypertension Unspecified essential hypertension Seizure disorder ([facility]/HCC) ([facility])- Primary Unspecified epilepsy without mention of intractable epilepsy Chronic obstructive pulmonary disease, unspecified COPD type ([facility]) Primary hypertension Unspecified essential hypertension Gastroesophageal reflux disease without esophagitis Esophageal reflux Mixed hyperlipidemia Current mild episode of major depressive disorder, unspecified whether recurrent (HCC) Anxiety Anxiety state, unspecified Annual physical exam- Primary Routine general medical examination at a health care facility Seizure disorder ([facility]) ([facility]) Unspecified epilepsy without mention of intractable epilepsy Moderate asthma, unspecified whether complicated, unspecified whether persistent Chronic obstructive pulmonary disease, unspecified COPD type ([facility]) Primary hypertension Unspecified essential hypertension Fibromyalgia Unspecified myalgia and myositis Vitamin D deficiency Anxiety Anxiety state, unspecified Current mild episode of major depressive disorder, unspecified whether recurrent (HCC) Mixed hyperlipidemia Current smoker Hypoxemia Screening for diabetes mellitus Encounter for screening mammogram for malignant neoplasm of breast Need for pneumococcal vaccination Need for prophylactic vaccination against streptococcus pneumoniae (pneumococcus) Chronic obstructive pulmonary disease, unspecified COPD type (HCC)- Primary Primary hypertension Unspecified essential hypertension Gastroesophageal reflux disease without esophagitis Esophageal reflux Chronic nausea Nausea alone Current mild episode of major depressive disorder, unspecified whether recurrent (HCC) Anxiety Anxiety state, unspecified Acute non-recurrent pansinusitis- Primary Bronchitis Bronchitis, not specified as acute or chronic Primary hypertension Unspecified essential hypertension Chronic obstructive pulmonary disease, unspecified COPD type (HCC)- Primary Seizure disorder (CMS/HCC) (HCC) Unspecified epilepsy without mention of intractable epilepsy Primary hypertension Unspecified essential hypertension Gastroesophageal reflux disease without esophagitis Esophageal reflux Fibromyalgia Unspecified myalgia and myositis Vitamin D deficiency Current mild episode of major depressive disorder, unspecified whether recurrent (HCC) Anxiety Anxiety state, unspecified Current smoker Mixed hyperlipidemia Hyponatremia Hyposmolality and/or hyponatremia Chronic obstructive pulmonary disease, unspecified COPD type (HCC)- Primary Abnormal liver function tests Hyponatremia Hyposmolality and/or hyponatremia Falls frequently Personal history of fall Ascites due to chronic alcoholic hepatitis Iron deficiency anemia, unspecified iron deficiency anemia type Generalized weakness Chronic obstructive pulmonary disease, unspecified (HCC)- Primary Primary hypertension Unspecified essential hypertension Hyperlipidemia, unspecified hyperlipidemia type Epilepsy, unspecified, not intractable, without status epilepticus (HCC) Vitamin D deficiency, unspecified Alcoholic cirrhosis of liver with ascites (CMS/HCC) (HCC) Chronic respiratory failure with hypoxia (HCC) Hyponatremia Hyposmolality and/or hyponatremia Moderate asthma, unspecified whether complicated, unspecified whether persistent- Primary Chronic obstructive pulmonary disease, unspecified COPD type (HCC) Chronic respiratory failure with hypoxia (HCC) Primary hypertension Unspecified essential hypertension Nonintractable epilepsy without status epilepticus, unspecified epilepsy type (HCC) Gastroesophageal reflux disease without esophagitis Esophageal reflux Mixed hyperlipidemia Hyponatremia Hyposmolality and/or hyponatremia COPD with acute exacerbation (HCC)- Primary Acute non-recurrent frontal sinusitis Chronic obstructive pulmonary disease, unspecified COPD type (HCC) Moderate asthma, unspecified whether complicated, unspecified whether persistent Incontinence overflow, stress female- Primary Female stress incontinence Fecal smearing Chronic respiratory failure with hypoxia (HCC) Fibromyalgia Unspecified myalgia and myositis Glossitis- Primary Chronic obstructive pulmonary disease, unspecified COPD type (HCC)- Primary Chronic respiratory failure with hypoxia (HCC) Nonintractable epilepsy without status epilepticus, unspecified epilepsy type (HCC) Primary hypertension Unspecified essential hypertension Chronic nausea Nausea alone Gastroesophageal reflux disease without esophagitis Esophageal reflux Vitamin D deficiency, unspecified Mixed hyperlipidemia Current smoker Anxiety Anxiety state, unspecified Vitamin D deficiency, unspecified documented in this encounter [facility] Discharge instructions* Instructions* Bolivar Larsen MD - 04/27/2022 POST-OPERATIVE INSTRUCTIONS LAPAROSCOPIC/ROBOTIC SURGERY Thank you very much for allowing me to participate in your care, it is truly a privilege. Below please see discharge orders that will help you during your recovery. Please do not hesitate to call theoffice at [phone] for any questions. After hours, the same number will allow you to reach the on-call surgeon. ? Call the office to schedule your post-operative appointment with Dr. Larsen or PA/OVEN OPERATOR for 2 weeks if not already scheduled. o (May need to be seen before 2 weeks if stitches and/or drains present) ? Change bandages daily or more frequently if needed. o Keep incisions clean with soap/ water daily. (Peroxide OK as well) o Cover incision(s) as needed. o Please remove the Steri-Strips 5 days after surgery. This includes any clear bandages and gauze placed in the navel, if applicable. o If you have skin glue this will come off on its own ? May place an ice pack over your incisions on and off (15min) at a time for the next 24-48 hours. ? Resume regular diet as tolerated (recommend starting with liquids) ? General guidelines for activity: Avoid strenuous activity or lifting anything heavier than 15 pounds. It is OK to be up and walking around. Going up and down stairs is also OK. Do what is comfortable: stop and rest when you feel tired. It is OK to shower after 24 hours ? You will have pain medicine ordered. Take as directed/needed. ? Some discomfort, mild bruising, and swelling are not unusual; please call my office if you have any severe pain, hemorrhage, or high fever (over 101 F) ? During the laparoscopic procedure that you had, gas is pumped into the abdominal cavity. You may feel abdominal, shoulder, or rib pain for a few days due to this. ? Resume home medications (see medication reconciliation sheet) ? Do NOT drive for one day and while taking your narcotic pain medicine. ? Watch for signs of infection: Excessive warmth or bright redness around your incisions Leakage of bloody or cloudy fluid from you incisions Fever over 100.5 ? If you experience constipation o Increase your water intake. o Increase your activity; walking is best. o An over the counter stool softener or mild laxative may be necessary if you still have not had a bowel movement after several days. Please call the office at [phone] for any questions and too make your post op appointment if needed. Thank you again for allowing me to participate in your care, and get well soon! Bolivar Larsen MD documented in this encounterSUMMA Work Phone: Hospital Discharge instructions* Attachments The following attachments cannot be sent through Care Everywhere. * Sinusitis Discharge Instructions, Adult (Citizen Of [place]) documented in this encounterSHenry County Hospitalital Discharge instructions Ambulatory Orders* Prior Authorization Referral - ONC/HEM Location: None Selected [facility] Work Phone: Hospital Discharge instructionsAdditional Instructions Use your dacia nebulizer as needed. Prednisone 40 mg a day start tomorrow once a day for 7 days. The antibiotic Zithromax 1 pill a day starting tomorrow. Follow-up with your doctor if not improving return to emergency ferment if you are feeling worse. Your labs and chest x-ray today looked good.[facility] Work Phone: Instructions* Attachments The following attachments cannot be sent through Care Everywhere. * Flu Vaccine (Citizen Of [place]) documented in this encounterSKettering Health MiamisburgReason for referral (narrative)No reason for referral information availableWParkview Health [facility] Hospital Work Phone: Instructions Instruction Description Start Date Patient advised to follow-up with Primary Care Physician for BMI management. Advance Directives No Advanced Directives Records FoundDocuments on File Type Date Recorded Patient Internist Medical Doctor Md Expl anation Advance Directives and Living Will Power of Heel Nail Rasper Latest Code Status on File Code Status Date Activated Date Inactivated Comments Full Code 09/19/2016 2:51 AM 09/23/2016 7:57 PM Documents on File Type Date Recorded Patient Internist Medical Doctor Md Expl anation ACP-Advance Directive ACP-Power of Heel Nail Rasper Latest Code Status on File Code Status Date Activated Date Inactivated Comments Full Code 09/19/2016 2:51 AM 09/23/2016 7:57 PM Documents on File Type Date Recorded Patient Internist Medical Doctor Md Expl anation ACP-Advance Directive ACP-Power of Heel Nail Rasper Advance Directive Response Recorded Date/ Time Living Will No May 21, 2021 3:17pm Power of Heel Nail Rasper No May 21 3:17pm Latest Code Status on File Code Status Date Activated Date Inactivated Comments Full Code 04/27/2022 6:17 AM Full Code 09/19/2016 2:51 AM 09/23/2016 7:57 PM Latest Code Status on File Code Status Date Activated Date Inactivated Comments Full Code 04/27/2022 6:17 AM 04/27/2022 3:58 PM Full Code 09/19/2016 2:51 AM 09/23/2016 7:57 PM Latest Code Status on File Code Status Date Activated Date Inactivated Comments Full Code 04/27/2022 6:17 AM 04/27/2022 3:58 PM Advance Directive Response Recorded Date/ Time Living Will No December 27, 2022 11:29am Power of Heel Nail Rasper No December 27 11:29am Advance Directive Response Recorded Date/ Time Do you have a Healthcare Power of Heel Nail Rasper? Yes March 20, 2025 5:56pm Name of Medical Power of Heel Nail Rasper shonda long March 20, 2025 5:56pm Advance Directive Response Recorded Date/ Time Do you have a Healthcare Power of Heel Nail Rasper? Yes March 21, 2025 12:32am Name of Medical Power of Heel Nail Rasper shonda long March 21, 2025 12:32am Advance Directive Response Recorded Date/ Time Do you have a Healthcare Pow er of Heel Nail Rasper? No July 21, 2025 1:00pm Do you have a Healthcare Pow er of Heel Nail Rasper? Yes March 21, 2025 12:32am Name of Medical Power of Heel Nail Rasper shonda long March 21, 2025 12:32am Assessments Diagnosis Hyponatremia Hyposmolality and/or hyponatremia Dehydration COVID-19 Acute pneumonitis Diagnosis Encounter for screening for lung cancer Diagnosis Hypertensive urgency- Primary Unspecified essential hypertension Chest pain, unspecified type Review of System There may be information available, but it has not been provided by the sender. Family History No Family History Records Found Relationship Condition Age at Onset Recorded Date/T mihaela Unknown Family History?No pe rtinent history Unknown July 30, 2020 3:19pm Relationship Condition Age at Onset Recorded Date/T mihaela Not Specified Hypertension Unknown Discharge Instructions * Attachments The following attachments cannot be sent through Care Everywhere. * Hyponatremia (Citizen [place]) * Pneumonia (Citizen [place]) * Coronavirus Disease (COVID-19): General Info (Citizen [place]) * Dehydration (Citizen [place]) documented in this encounter* Attachments The following attachments cannot be sent through Care Everywhere. * Chest Pain (Citizen [place]) documented in this encounter Reason for Referral Status Reason Specialty Diagnoses / Procedures Referre d By Contact Referred To Contact Closed Radiology Diagnoses Encounter for screening for lung cancer Procedures CT LUNG SCREENING Geovani Gay MD [address] [place] [address] Status Reason Specialty Diagnoses / Procedures Referre d By Contact Referred To Contact Open Radiology Diagnoses Chronic nausea RUQ abdominal pain Procedures US ABDOMEN COMPLETE Geovani Gay MD [address] [place] [address] Specialty Diagnoses / Procedures Referred By Contac t Referred To Contact Radiology Diagnoses Lung nodule Procedures Low Dose Chest CT -Abnormal Lung Screen Follow up Linda Gonzales, COMBATANT DIVER QU[employer]IED - [employer] [address] [place] [address] Referral ID Status Reason Start Date Expiration Date Visits Re quested Visits Authorized [id number] Closed 03/30/2022 05/28/2022 1 1 Specialty Diagnoses / Procedures Referred By Contac t Referred To Contact Radiology Diagnoses Multiple lung nodules on CT Procedures CT lung screening follow up low dose Linda Gonzales, COMBATANT DIVER QU[employer]IFIED - [employer] 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 [address] Referral ID Status Reason Start Date Expiration Date Visits Re quested Visits Authorized [id number] Closed 05/23/2023 07/22/2023 1 1 Specialty Diagnoses / Procedures Referred By Contac t Referred To Contact Geovani Gay MD [address] [place] [address] Referral ID Status Reason Start Date Expiration Date Visits Re quested Visits Authorized [id number] Closed 1 1 Specialty Diagnoses / Procedures Referred By Contac t Referred To Contact Radiology Diagnoses Solitary pulmonary nodule Procedures CT lung screening low dose Linda Gonzales, COMB[employer] D[employer] QU[employer]IED - [employer] 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 [address] Referral ID Status Reason Start Date Expiration Date Visits Re quested Visits Authorized [id number] Closed 09/20/2022 03/19/2023 1 1 Chief Complaint and Reason for Visit Chief Complaint Chronic obstructive pulmonary disease, unspecified Chronic obstructive pulmonary disease, unspecified 6 wk FU DISCUSS GALLBLADDER SURGERY LAP MANNY W IOC discuss lap manny LAP MANNY W IOC Reason for Visit Nicotine dependence, cigarettes, uncomplicated Asthma-COPD overlap syndrome Chronic cholecystitis Cholelithiasis Nausea COPD Chief Complaint FU Reason for Visit Alcohol use disorder Colon polyps Gastric reflux Nausea Chief Complaint FU 2wk ov INT LABS CIRRHOSIS Reason for Visit Alcohol use disorder Colon polyps Gastric reflux Nausea Cirrhosis Chief Complaint Admit Date PNEUMONIA March 20, 2025 9:36p m Weakness March 20, 2025 9:47p m Reason for Visit Admit Date Hypokalemia March 20, 2025 9:36p m Hypomagnesemia March 20, 2025 9:36p m Pneumonia March 20, 2025 9:36p m Chief Complaint Admit Date PNEUMONIA March 20, 2025 9:36p m Weakness March 20, 2025 9:47p m Pneumonia March 21, 2025 9:06a m Pneumonia March 22, 2025 9:35a m Pneumonia March 23, 2025 7:35a m Pneumonia March 24, 2025 8:29a m Pneumonia March 24, 2025 7:13p m Pneumonia March 25, 2025 9:37a m Pneumonia March 25, 2025 3:16p m Reason for Visit Admit Date Anemia March 20, 2025 9:36p m Cirrhosis March 20, 2025 9:36p m Hypokalemia March 20, 2025 9:36p m Hypomagnesemia March 20, 2025 9:36p m Nausea March 20, 2025 9:36p m Pneumonia March 20, 2025 9:36p m Chief Complaint Admit Date PNEUMONIA March 20, 2025 9:36p m Weakness March 20, 2025 9:47p m Pneumonia March 21, 2025 9:06a m Pneumonia March 22, 2025 9:35a m CP March 23, 2025 7:32a m Pneumonia March 23, 2025 7:35a m Pneumonia March 24, 2025 8:29a m Pneumonia March 24, 2025 7:13p m Pneumonia March 25, 2025 9:37a m Pneumonia March 25, 2025 3:16p m Test Result May 20, 2025 11:2 6am Reason for Visit Admit Date Anemia March 20, 2025 9:36p m Cirrhosis March 20, 2025 9:36p m Hypokalemia March 20, 2025 9:36p m Hypomagnesemia March 20, 2025 9:36p m Nausea March 20, 2025 9:36p m Pneumonia March 20, 2025 9:36p m Anemia May 20, 2025 11:2 6am Chief Complaint Admit Date PNEUMONIA March 20, 2025 9:36p m Weakness March 20, 2025 9:47p m Pneumonia March 21, 2025 9:06a m Pneumonia March 22, 2025 9:35a m CP March 23, 2025 7:32a m Pneumonia March 23, 2025 7:35a m Pneumonia March 24, 2025 8:29a m Pneumonia March 24, 2025 7:13p m Pneumonia March 25, 2025 9:37a m Pneumonia March 25, 2025 3:16p m Test Result May 20, 2025 11:2 6am INT LAB ORDERS May 20, 2025 11:5 1am Reason for Visit Admit Date Anemia March 20, 2025 9:36p m Cirrhosis March 20, 2025 9:36p m Hypokalemia March 20, 2025 9:36p m Hypomagnesemia March 20, 2025 9:36p m Nausea March 20, 2025 9:36p m Pneumonia March 20, 2025 9:36p m Anemia May 20, 2025 11:2 6am GI bleed May 20, 2025 11:2 6am Chief Complaint Admit Date PNEUMONIA March 20, 2025 9:36p m Weakness March 20, 2025 9:47p m Pneumonia March 21, 2025 9:06a m Pneumonia March 22, 2025 9:35a m CP March 23, 2025 7:32a m Pneumonia March 23, 2025 7:35a m Pneumonia March 24, 2025 8:29a m Pneumonia March 24, 2025 7:13p m Pneumonia March 25, 2025 9:37a m Pneumonia March 25, 2025 3:16p m Test Result May 20, 2025 11:2 6am INT LAB ORDERS May 20, 2025 11:5 1am Anemia July 07, 2025 3:50pm E ORDER July 07, 2025 4:34pm Reason for Visit Admit Date Anemia March 20, 2025 9:36p m Cirrhosis March 20, 2025 9:36p m Hypokalemia March 20, 2025 9:36p m Hypomagnesemia March 20, 2025 9:36p m Nausea March 20, 2025 9:36p m Pneumonia March 20, 2025 9:36p m Anemia May 20, 2025 11:2 6am GI bleed May 20, 2025 11:2 6am Iron deficiency anemia July 07, 2 025 3:50pm Chief Complaint Admit Date PNEUMONIA March 20, 2025 9:36p m Pneumonia March 25, 2025 9:37a m Pneumonia March 25, 2025 3:16p m Test Result May 20, 2025 11:2 6am INT LAB ORDERS May 20, 2025 11:5 1am Anemia July 07, 2025 3:50pm E ORDER July 14, 2025 1:30pm sob July 21, 2025 12:39pm Summary Purpose Additional Source Comments Reason for Visit (unrecogniz ed section and content) Reason Comments Dizziness Reason Comments Chest Pain Hypertension Reason Comments Med Refill Reason Comments Gynecologic Exam Pt not ready for pap today Health Maintenance [employer]-wants this but I am unable to verify coverage on [employer] [id number] COVID vaccinesTDAP/TD-declines, doesn't think insurance will pay for it Blood Work Specialty Diagnoses / Procedures Referred By Contac t Referred To Contact Radiology Diagnoses Multiple lung nodules on CT Procedures CT lung screening follow up low dose Linda Gonzales S, [employer] - 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 [address] Referral ID Status Reason Start Date Expiration Date Visits Re quested Visits Authorized [id number] Closed 05/23/2023 07/22/2023 1 1 Reason Comments COPD hypoxemia Follow-up Started oxygen 2.5LP t thinks she has lung cancer Health Maintenance Flu vaccine- pt requ ested Reason Onset Date Comments Med Refill 09/22/2023 Reason Comments Cough productive URI Headache Reason Comments Seizures Asthma COPD Hypertension Hyperlipidemia Depression Anxiety Medication Check 6 monthPt is a self pay today Health Maintenance Pt refused- hep c an d hiv screening, tdap vaccine, hep a and b vaccine, shingles vaccine, rsv vaccine, 3rd covid vaccineMmr vaccine- done as a child Reason Onset Date Comments Medication Problem 01/29/2024 Reason Comments Transitional Care Management Outreach Hospital Follow[facility] 03/23 -03/26/24 Reason Onset Date Comments Critical lab results 03/29/2024 Reason Onset Date Comments Medication List 04/18/2024 Reason Comments Transitional Care Management Outreach Wa s in a group home for a litter over a month. Blood Work Reason Onset Date Comments Med Refill 06/06/2024 Reason Onset Date Comments Med Refill 06/11/2024 Reason Comments Annual Exam Health Maintenance Pt refused- hep c an d hiv screening, tdap vaccine, hep a and b vaccines, shingles vaccine, rsv vaccine, 4th covid vaccineMmr vaccine- done as child Reason Comments URI Has had nasal conges tion, a cough, dizziness, headache, and SOB. States that she hasn't been coughing as much until now has progressively gotten worse. Unaware if she has had a fever but has been taking tylenol due to her headache, did take a tylenol this morning. Reason Onset Date Comments Med Refill 08/22/2024 Reason Comments COPD Hypertension Hyperlipidemia Cirrhosis Vitamin D Deficiency Seizures Medication Check 3 month Health Maintenance Lung ca screen- refu seFlu vaccine- [id number] covid vaccine- not done Specialty Diagnoses / Procedures Referred By Regina jarrett Referred To Contact Radiology Diagnoses Solitary pulmonary nodule Procedures CT lung screening low dose Linda Gonzales S, [employer] QU[employer] - 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 [address] Referral ID Status Reason Start Date Expiration Date Visits Re quested Visits Authorized [id number] Closed 09/20/2022 03/19/2023 1 1 Reason Comments Depression Anxiety Hyperlipidemia GERD Hypertension Medication Check Health Maintenance Colonoscopy referral - sched 01/02/23Hiv/hep c screening- refusePneumo 23 vaccine- refuse Immunizations Tdap vaccine needed due to skin tear on arm from her dog Reason Onset Date Comments Cough 01/09/2025 Reason Comments Sinusitis Ox Tank 2.5, Face, e yes, nose, coughing productive every time, Sinus symptoms started 2 weeks ago, unknown fever as she takes tylenol for pain in back. Reason Onset Date Comments Oral Pain 01/28/2025 Reason Comments Supplies Need face to face vi sit to order incontinence supplies Orders Need script for park ing placard Reason Onset Date Comments Oral Pain 02/17/2025 Reason Comments Other Tongue is very painf ul for about a week Shortness of Breath Worse this morning Cough Reason Comments COPD Hyperlipidemia Hypertension Vitamin D Deficiency Seizures Cirrhosis Chronic Kidney Disease Abnormal Sodium Urinary Incontinence Medication Check 6 month Reason Comments Hospital Follow-up [facility]- Resp. Failure, PNA, Hypokalemia, Hypomagnesia. States not feeling very well today Reason Comments Facial Pain Reason Onset Date Comments Med Refill 05/26/2025 Source Comments (unrecognize d section and content) In the event this informatio n is protected by the Federal Confidentiality of Alcohol and Drug Abuse Patient Records regulations: The Federal rules restrict any use of the information to criminally investigate or prosecute any alcohol or drug abuse patient.[facility] Goals (unrecognized section and content) Goals may be documented in a n alternate sectionGoals may be documented in an alternate section Care Teams (unrecognized sec tion and content) Team Status: Active Member Role Status Dates Dr. Geovani Gay MD Primary Care Provider Active Team Status: Inactive Member Role Status Dates Dr. Geovani Gay MD Primary Care Provider Active Start: March 20, 2025 End: March 25, 2025 Dr. Bradley Pichardo DO Emergency Provider Active Start: March 20, 2025 End: March 25, 2025 Dr. Jose Douglas MD Admit Provider Active Start: March 20, 2025 End: March 25, 2025 Dr. Jose Douglas MD Other Provider Active Start: March 20, 2025 End: March 25, 2025 Dr. Troy Akins MD Attending Provider Active Start: March 20, 2025 End: March 25, 2025 Team Status: Active Member Role Status Dates Dr. Geovani Gay MD Primary Care Provider Active Start: March 20, 2025 Dr. Bradley Pichardo DO Emergency Provider Active Start: March 20, 2025 Dr. Jose Douglas MD Attending Provider Active Start: March 20, 2025 Team Status: Active Member Role Status Dates Dr. Geovani Gay MD Primary Care Provider Active Start: March 21, 2025 Dr. Bradley Pichardo DO Emergency Provider Active Start: March 21, 2025 Dr. Jose Douglas MD Admit Provider Active Start: March 21, 2025 Dr. Jose Douglas MD Other Provider Active Start: March 21, 2025 Dr. Troy Akins MD Attending Provider Active Start: March 21, 2025 Dr. Troy Akins MD Other Provider Active Star t: March 21, 2025 Team Status: Active Member Role Status Dates Dr. Geovani Gay MD Primary Care Provider Active Start: March 22, 2025 Dr. Bradley Pichardo DO Emergency Provider Active Start: March 22, 2025 Dr. Jose Douglas MD Admit Provider Active Start: March 22, 2025 Dr. Jose Douglas MD Other Provider Active Start: March 22, 2025 Dr. Troy Akins MD Attending Provider Active Start: March 22, 2025 Dr. Troy Akins MD Other Provider Active Star t: March 22, 2025 Team Status: Active Member Role Status Dates Dr. Geovani Gay MD Primary Care Provider Active Start: March 23, 2025 Dr. Bradley Pichardo DO Emergency Provider Active Start: March 23, 2025 Dr. Jose Douglas MD Admit Provider Active Start: March 23, 2025 Dr. Jose Douglas MD Other Provider Active Start: March 23, 2025 Dr. Troy Akins MD Attending Provider Active Start: March 23, 2025 Dr. Troy Akins MD Other Provider Active Star t: March 23, 2025 Team Status: Active Member Role Status Dates Dr. Geovani Gay MD Primary Care Provider Active Start: March 24, 2025 Dr. Bradley Pichardo DO Emergency Provider Active Start: March 24, 2025 Dr. Jose Douglas MD Admit Provider Active Start: March 24, 2025 Dr. Jose Douglas MD Other Provider Active Start: March 24, 2025 Dr. Troy Akins MD Attending Provider Active Start: March 24, 2025 Dr. Troy Akins MD Other Provider Active Star t: March 24, 2025 Team Status: Active Member Role Status Dates Dr. Geovani Gay MD Primary Care Provider Active Start: March 24, 2025 Dr. Bradley Pichardo DO Emergency Provider Active Start: March 24, 2025 Dr. Jose Douglas MD Admit Provider Active Start: March 24, 2025 Dr. Jose Douglas MD Other Provider Active Start: March 24, 2025 Dr. Troy Akins MD Other Provider Active Star t: March 24, 2025 Dr. Cal Bahena DO Attending Provider Active Start: March 24, 2025 Team Status: Active Member Role Status Dates Dr. Geovani Gay MD Primary Care Provider Active Start: March 25, 2025 Dr. Bradley Pichardo DO Emergency Provider Active Start: March 25, 2025 Dr. Jose Douglas MD Admit Provider Active Start: March 25, 2025 Dr. Jose Douglas MD Other Provider Active Start: March 25, 2025 Dr. Troy Akins MD Attending Provider Active Start: March 25, 2025 Dr. Troy Akins MD Other Provider Active Star t: March 25, 2025 Team Status: Active Member Role Status Dates Dr. Geovani Gay MD Primary Care Provider Active Start: March 25, 2025 Dr. Bradley Pichardo DO Emergency Provider Active Start: March 25, 2025 Dr. Jose Douglas MD Admit Provider Active Start: March 25, 2025 Dr. Jose Douglas MD Other Provider Active Start: March 25, 2025 Dr. Troy Akins MD Other Provider Active Star t: March 25, 2025 Dr. Cal Bahena DO Attending Provider Active Start: March 25, 2025 Team Status: Active Member Role Status Dates Dr. Geovani Gay MD Primary Care Provider Active Start: March 20, 2025 Dr. Bradley Pichardo DO Emergency Provider Active Start: March 20, 2025 Dr. Jose Douglas MD Admit Provider Active Start: March 20, 2025 Dr. Jose Douglas MD Attending Provider Active Start: March 20, 2025 [place] Relationship Specialty Start Date End Date Geovani Gay MD [address] [place] [address], [place] [address] PCP - General Family Medicine 12/17/19 [place] Relationship Specialty Start Date [place] [address] PCP - General Family Medicine 12/17/19 [place] Relationship Specialty Start Date End Date Geovani Gay MD [address] [place] [address], [place] [address] PCP - General Family Medicine 12/17/19 [place] Relationship Specialty Start Date End Date Geovani Gay MD [address] [place] [address], [place] [address] PCP - General Family Medicine 12/17/19 Team Status: Inactive Member Role Status Dates Dr. Geovani Gay MD Primary Care Provider, Referri ng Provider Active Elina Thorpe OVEN OPERATOR, OVEN OPERATOR-C Attending Provider Active Team Status: Active Member Role Status Dates Dr. Geovnai Gay MD Primary Care Provider, Referri ng Provider Active Dr. Cal Bahena DO Attending Provider, Other Prov ider Active Team Status: Inactive Member Role Status Dates Dr. Geovani Gay MD Primary Care Provider, Referri ng Provider Active Dr. Cal Bahena DO Attending Provider Active [place] Relationship Specialty Start Date End Date Geovani Gay MD [address] [place], [place] [address], [place] [address] PCP - General 12/17/19 [place] Relationship Specialty Start Date End Date Geovani Gay MD [address] [place] [address] PCP - General 12/17/19 Team Status: Inactive Member Role Status Dates Dr. Geovani Gay MD Primary Care Provider Active Elina Thorpe OVEN OPERATOR, OVEN OPERATOR-C Attending Provider, Chilango dang Provider Active [place] Relationship Specialty Start Date [place] [address] PCP - General 12/17/19 [place] Relationship Specialty Start Date [place] [address] PCP - General 12/17/19 [place] Relationship Specialty Start Date [place] [address] PCP - General 12/17/19 [place] Relationship Specialty Start Date [place] [address] PCP - General 12/17/19 [place] Relationship Specialty Start Date [place] [address] PCP - General 12/17/19 [place] Relationship Specialty Start Date [place] [address] PCP - General 12/17/19 [place] Relationship Specialty Start Date End Date Geovani Gay MD [address] [facility] [place] [address] PCP - General 12/17/19 [place] Relationship Specialty Start Date End Date Geovani Gay MD [address] [facility] [place] [address] PCP - General 12/17/19 [place] Relationship Specialty Start Date End Date Geovani Gay MD [address] [place] [place] [address] PCP - General 12/17/19 [place] Relationship Specialty Start Date End Date Geovani Gay MD [address] [place] [place] [address] PCP - General 12/17/19 [place] Relationship Specialty Start Date End Date Geovani Gay MD [address] [place] [address] PCP - General 12/17/19 [place] Relationship Specialty Start Date End Date Geovani Gay MD [address] [place] [address] PCP - General 12/17/19 [place] Relationship Specialty Start Date End Date Geovani Gay MD [address] [facility] [place] [address] PCP - General 12/17/19 [place] Man Relationship Specialty Start Date End Date Geovani Gay MD [address] [place] [place] [address] PCP - General 12/17/19 [place] Relationship Specialty Start Date End Date Geovani Gay MD [address] [place] [place] [address] PCP - General 12/17/19 [place] Man Relationship Specialty Start Date End Date Geovani Gay MD [address] [place] [place] [address] PCP - General 12/17/19 [place] Man Relationship Specialty Start Date End Date Geovani Gay MD [address] [facility] [place] [address] PCP - General 12/17/19 [place] Man Relationship Specialty Start Date End Date Geovani Gay MD [address] [facility] [place] [address] PCP - General 12/17/19 [place] Relationship Specialty Start Date End Date Geovani Gay MD [address] [facility] [place] [address] PCP - General 12/17/19 [place] Relationship Specialty Start Date End Date Geovani Gay MD [address] [facility] [place] [place] [address] PCP - General 12/17/19 [place] Relationship Specialty Start Date End Date Geovani Gay MD [address] [facility] [place] [address] PCP - General 12/17/19 [place] Relationship Specialty Start Date End Date Geovani Gay MD [address] [facility] [place] [address] PCP - General 12/17/19 [place] Relationship Specialty Start Date End Date Geovani Gay MD [address] [facility] [place] [address] PCP - General 12/17/19 [place] Man Relationship Specialty Start Date End Date Geovani Gay MD [address] [facility] [place] [address] PCP - General 12/17/19 [employer] Man Relationship Specialty Start Date End Date Geovani Gay MD [address] [facility] [place] [address] PCP - General 12/17/19 [place] Man Relationship Specialty Start Date End Date eGovani Gay MD 25 [facility] [place] [address] PCP - General 12/17/19 [place] Man Relationship Specialty Start Date End Date Geovani Gay MD [address] [facility] [place] [address] PCP - General 12/17/19 [place] Man Relationship Specialty Start Date End Date Geovani Gay MD [address] [place] [place] [address] PCP - General 12/17/19 [place] Man Relationship Specialty Start Date End Date Gevoani [place] [address] PCP - General 12/17/19 [place] Man Relationship Specialty Start Date End Date Geovani [place] [address] PCP - General 12/17/19 [place] Man Relationship Specialty Start Date End Date Geovani Gay MD [facility] [place] [address] PCP - General 12/17/19 [place] Man Relationship Specialty Start Date End Date Geovani Gay MD [facility] [place] [address] PCP - General 12/17/19 [place] Man Relationship Specialty Start Date End Date Geovani Gay MD [facility] [place] [address] PCP - General 12/17/19 [place] Man Relationship Specialty Start Date End Date Geovani Gay MD [facility] [place] [address] PCP - General 12/17/19 [place] Man Relationship Specialty Start Date End Date Geovani Gay [place] [address] PCP - General 12/17/19 [place] Man Relationship Specialty Start Date End Date Geovani Gay [place] [address] PCP - General 12/17/19 [place] Man Relationship Specialty Start Date End Date Geovani Gay MD [address] [facility] [place] [address] PCP - General 12/17/19 [place] Man Relationship Specialty Start Date End Date Geovani Gay MD [address] [facility] [place] [address] PCP - General 12/17/19 [place] Man Relationship Specialty Start Date End Date Geovani Gay MD [address] [facility] [place] [address] PCP - General 12/17/19 [place] Man Relationship Specialty Start Date End Date Geovani Gay MD [address] [facility] [place] [address] PCP - General 12/17/19 [place] Man Relationship Specialty Start Date End Date Geovani Gay MD [address] [facility] [place] [address] PCP - General 12/17/19 [place] Man Relationship Specialty Start Date End Date Geovani Gay MD [address] [facility] [place] [address] PCP - General 12/17/19 [place] Man Relationship Specialty Start Date End Date Geovani Gay MD [address] [facility] [place] [address] PCP - General 12/17/19 [place] Man Relationship Specialty Start Date End Date Geovani Gay MD [address] [facility] [place] [address] PCP - General 12/17/19 [place] Man Relationship Specialty Start Date End Date Geovani Gay MD [address] [facility] [place] [address] PCP - General 12/17/19 [place] Man Relationship Specialty Start Date End Date Geovani Gay MD [facility] [place] [address] PCP - General 12/17/19 [place] Man Relationship Specialty Start Date End Date Geovani Gay MD 25 [place] [address] PCP - General 12/17/19 [place] Man Relationship Specialty Start Date End Date Geovani Gay MD 25 [place] [address] PCP - General 12/17/19 [place] Man Relationship Specialty Start Date End Date Geovani Gay MD 25 [place] [address] PCP - General 12/17/19 [place] Man Relationship Specialty Start Date End Date Geovani Gay MD [address] [facility] [place] [address] PCP - General 12/17/19 [place] Man Relationship Specialty Start Date End Date Geovani Gay MD [facility] [place] [place] [address] PCP - General 12/17/19 [place] Man Relationship Specialty Start Date End Date Geovani Gay MD 25 [facility], [place] [address] PCP - General 12/17/19 Team Status: Active Member Role/Relationship Status Dates Dr. Geovani Gay MD Primary Care Provider Active Team Status: Inactive Member Role/Relationship Status Dates Dr. Geovani Gay MD Primary Care Provider Active Start: March 20, 2025 End: March 25, 2025 Dr. Bradley Pichardo DO Emergency Provider Active Start: March 20, 2025 End: March 25, 2025 Dr. Jose Douglas MD Admit Provider Active Start: March 20, 2025 End: March 25, 2025 Dr. Jose Douglas MD Other Provider Active Start: March 20, 2025 End: March 25, 2025 Dr. Troy Akins MD Attending Provider Active Start: March 20, 2025 End: March 25, 2025 Team Status: Active Member Role/Relationship Status Dates Dr. Geovani Gay MD Primary Care Provider Active Start: March 20, 2025 Dr. Bradley Pichardo DO Emergency Provider Active Start: March 20, 2025 Dr. Jose Douglas MD Attending Provider Active Start: March 20, 2025 Team Status: Active Member Role/Relationship Status Dates Dr. Geovani Gay MD Primary Care Provider Active Start: March 21, 2025 Dr. Bradley Pichardo DO Emergency Provider Active Start: March 21, 2025 Dr. Jose Douglas MD Admit Provider Active Start: March 21, 2025 Dr. Jose Douglas MD Other Provider Active Start: March 21, 2025 Dr. Troy Akins MD Attending Provider Active Start: March 21, 2025 Dr. Troy Akins MD Other Provider Active Star t: March 21, 2025 Team Status: Active Member Role/Relationship Status Dates Dr. Geovani Gay MD Primary Care Provider Active Start: March 22, 2025 Dr. Bradley Pichardo DO Emergency Provider Active Start: March 22, 2025 Dr. Jose Douglas MD Admit Provider Active Start: March 22, 2025 Dr. Jose Douglas MD Other Provider Active Start: March 22, 2025 Dr. Troy Akins MD Attending Provider Active Start: March 22, 2025 Dr. Troy Akins MD Other Provider Active Star t: March 22, 2025 Team Status: Active Member Role/Relationship Status Dates Dr. Geovani Gay MD Primary Care Provider Active Start: March 23, 2025 End: March 23, 2025 Dr. Luiz Weber MD Attending Provider Active Start: March 23, 2025 End: March 23, 2025 Dr. Luiz Weber MD Referring Provider Active Start: March 23, 2025 End: March 23, 2025 Team Status: Active Member Role/Relationship Status Dates Dr. Geovani Gay MD Primary Care Provider Active Start: March 23, 2025 Dr. Bradley Pichardo DO Emergency Provider Active Start: March 23, 2025 Dr. Jose Douglas MD Admit Provider Active Start: March 23, 2025 Dr. Jose Douglas MD Other Provider Active Start: March 23, 2025 Dr. Troy Akins MD Attending Provider Active Start: March 23, 2025 Dr. Troy Akins MD Other Provider Active Star t: March 23, 2025 Team Status: Active Member Role/Relationship Status Dates Dr. Geovani Gay MD Primary Care Provider Active Start: March 24, 2025 Dr. Bradley Pichardo DO Emergency Provider Active Start: March 24, 2025 Dr. Jose Douglas MD Admit Provider Active Start: March 24, 2025 Dr. Jose Douglas MD Other Provider Active Start: March 24, 2025 Dr. Troy Akins MD Attending Provider Active Start: March 24, 2025 Dr. Troy Akins MD Other Provider Active Star t: March 24, 2025 Team Status: Active Member Role/Relationship Status Dates Dr. Geovani Gay MD Primary Care Provider Active Start: March 24, 2025 Dr. Bradley Pichardo DO Emergency Provider Active Start: March 24, 2025 Dr. Jose Douglas MD Admit Provider Active Start: March 24, 2025 Dr. Jose Douglas MD Other Provider Active Start: March 24, 2025 Dr. Troy Akins MD Referring Provider Active Start: March 24, 2025 Dr. Troy Akins MD Other Provider Active Star t: March 24, 2025 Dr. Cal Bahena DO Attending Provider Active Start: March 24, 2025 Team Status: Active Member Role/Relationship Status Dates Dr. Geovani Gay MD Primary Care Provider Active Start: March 25, 2025 Dr. Bradley Pichardo DO Emergency Provider Active Start: March 25, 2025 Dr. Jose Douglas MD Admit Provider Active Start: March 25, 2025 Dr. Jose Douglas MD Other Provider Active Start: March 25, 2025 Dr. Troy Akins MD Attending Provider Active Start: March 25, 2025 Dr. Troy Akins MD Other Provider Active Star t: March 25, 2025 Team Status: Active Member Role/Relationship Status Dates Dr. Geovani Gay MD Primary Care Provider Active Start: March 25, 2025 Dr. Bradley Pichardo DO Emergency Provider Active Start: March 25, 2025 Dr. Jose Douglas MD Admit Provider Active Start: March 25, 2025 Dr. Jose Douglas MD Other Provider Active Start: March 25, 2025 Dr. Troy Akins MD Referring Provider Active Start: March 25, 2025 Dr. Troy Akins MD Other Provider Active Star t: March 25, 2025 Dr. Cal Bahena DO Attending Provider Active Start: March 25, 2025 Team Status: Inactive Member Role/Relationship Status Dates Dr. Geovani Gay MD Primary Care Provider Active Start: May 20, 2025 End: May 20, 2025 Dr. Geovani Gay MD Referring Provider Active Start: May 20, 2025 End: May 20, 2025 Dr. Cal Bahena DO Attending Provider Active Start: May 20, 2025 End: May 20, 2025 Team Status: Inactive Member Role/Relationship Status Dates Dr. Geovani Gay MD Primary Care Provider Active Start: May 20, 2025 End: May 20, 2025 Dr. Cal Bahena DO Attending Provider Active Start: May 20, 2025 End: May 20, 2025 Dr. Cal Bahena DO Referring Provider Active Start: May 20, 2025 End: May 20, 2025 [place] Man Relationship Specialty Start Date End Date Geovani Gay MD [address] [place] [id number] PCP - General 12/17/19 [place] [employer] Relationship Specialty Start Date End Date Geovani Gay MD [address] [place] [id number] PCP - General 12/17/19 Team Status: Inactive Member Role/Relationship Status Dates Dr. Geovani Gay MD Primary Care Provider Active Start: July 07, 2025 End: July 07, 2025 Dr. Geovani Gay MD Referring Provider Active Start: July 07, 2025 End: July 07, 2025 Dr. Gabino Madsen MD Attending Provider Active S tart: July 07, 2025 End: July 07, 2025 Team Status: Active Member Role/Relationship Status Dates Dr. Geovani Gay MD Primary Care Provider Active Start: July 07, 2025 Dr. Gabino Madsen MD Attending Provider Active S tart: July 07, 2025 Dr. Gabino Madsen MD Referring Provider Active S tart: July 07, 2025 Team Status: Active Member Role/Relationship Status Dates Dr. Geovani Gay MD Primary care physician Active Team Status: Inactive Member Role/Relationship Status Dates Dr. Geovani Gay MD Primary care physician Active Start: March 20, 2025 End: March 25, 2025 Dr. Bradley Pichardo DO Emergency Department Physician A ctive Start: March 20, 2025 End: March 25, 2025 Dr. Jose Douglas MD Admitting physician Active Start: March 20 End: March 25, 2025 Dr. Jose Douglas MD Nurse Practitioner Active Start: March 20 End: March 25, 2025 Dr. Troy Akins MD Attending physician Active Start: March 20, 2025 End: March 25, 2025 Team Status: Active Member Role/Relationship Status Dates Dr. Geovani Gay MD Primary care physician Active Start: March 25, 2025 Dr. Bradley Pichardo DO Emergency Department Physician A ctive Start: March 25, 2025 Dr. Jose Douglas MD Admitting physician Active Start: March 25 Dr. Jose Douglas MD Nurse Practitioner Active Start: March 25 Dr. Troy Akins MD Attending physician Active Start: March 25, 2025 Dr. Troy Akins MD Nurse Practitioner Active Start: March 25, 2025 Team Status: Active Member Role/Relationship Status Dates Dr. Geovani Gay MD Primary care physician Active Start: March 25, 2025 Dr. Bradley Pichardo DO Emergency Department Physician A ctive Start: March 25, 2025 Dr. Jsoe Douglas MD Admitting physician Active Start: March 25 Dr. Jose Douglas MD Nurse Practitioner Active Start: March 25 Dr. Troy Akins MD Referring Provider Active Start: March 25, 2025 Dr. Troy Akins MD Nurse Practitioner Active Start: March 25, 2025 Dr. Cal Bahena DO Attending physician Active Start: March 25, 2025 Team Status: Inactive Member Role/Relationship Status Dates Dr. Geovani Gay MD Primary care physician Active Start: May 20, 2025 End: May 20, 2025 Dr. Geovani Gay MD Referring Provider Active Start: May 20, 2025 End: May 20, 2025 Dr. Cal Bahena DO Attending physician Active Start: May 20, 2025 End: May 20, 2025 Team Status: Inactive Member Role/Relationship Status Dates Dr. Geovani Gay MD Primary care physician Active Start: May 20, 2025 End: May 20, 2025 Dr. Cal Bahena DO Attending physician Active Start: May 20, 2025 End: May 20, 2025 Dr. Cal Bahena DO Referring Provider Active Start: May 20, 2025 End: May 20, 2025 Team Status: Inactive Member Role/Relationship Status Dates Dr. Geovani Gay MD Primary care physician Active Start: July 07, 2025 End: July 07, 2025 Dr. Geovani Gay MD Referring Provider Active Start: July 07, 2025 End: July 07, 2025 Dr. Gabino Madsen MD Attending physician Active Start: July 07, 2025 End: July 07, 2025 Team Status: Active Member Role/Relationship Status Dates Dr. Geovani Gay MD Primary care physician Active Start: July 14, 2025 Dr. Gabino Madsen MD Attending physician Active Start: July 14, 2025 Dr. Gabino Madsen MD Referring Provider Active S tart: July 14, 2025 Team Status: Inactive Member Role/Relationship Status Dates Dr. Geovani Gay MD Primary care physician Active Start: July 21, 2025 End: July 21, 2025 Dr. David Carballo MD Emergency Departmen t Physician Active Start: July 21, 2025 End: July 21, 2025 Ordered Prescriptions (unrec ognized section and content) Prescription Sig Dispensed Refills Start Date End Da te oxyCODONE (ROXICODONE) 5 MG immediate release tabletIndications:Calcul us of gallbladder with acute on chronic cholecystitis without obstruction Take 1 tablet by mouth every 6 hours as needed for Pain for up to 5 days. Intended supply: 5 days. Take lowest dose possible to manage pain 20 tablet 0 04/27/2022 05/02/2022 ondansetron (ZOFRAN) 4 MG tablet Take 1 tablet by mouth daily as needed for Nausea or Vomiting 30 tablet 0 04/27/2022 Scheduled Active and Recently Administ ered Medications (unrecognized section and content) Medication Order 04/25/2022 04/26/2022 04/27/2022 acetaminophen (TYLENOL) tablet 1,000 mg (COMPLETED) 1,000 mg, Oral, ONCE, 1 dose, On Mon04/27/22 at 0645, Maximum dose of acetaminophen is 4000 mg from all sources in 24 hours. Do not administer if patient has taken tylenol <4 hours earlier. Do not give if contraindicated ie. patient has active liver disease or cirrhosis., Pre-op (day of surgery) 0646 (Given - Provid er: Anisha Pineda RN) ceFAZolin (ANCEF) 2000 mg in dextrose 4 % 100 mL IVPB (premix) 2,000 mg, IntraVENous, SNOWMAKER TO O.R., 1 dose, On Mon04/27/22 at 0645, Antimicrobial Indications: Surgical Prophylaxis, Administer within 1 hour prior to incision. Recommend to repeat in 3-4 hours after initial dose if still intra-op., Pre-op (day of surgery) 0645 (Due) celecoxib (CELEBREX) capsule 200 mg 200 mg, Oral, ONCE, 1 dose, On Mon04/27/22 at 0645, Pre-op (day of surgery) 0658 (Not Given - Pr ovider: Anisha Pineda RN - Reason: Other - Comment: pt states anti-inflammatories give GI upset) famotidine (PEPCID) tablet 20 mg (COMPLETED) 20 mg, Oral, ONCE, 1 dose, On Mon04/27/22 at 0645, Pre-op (day of surgery) 0646 (Given - Provid er: Anisha Pineda RN) LORazepam (ATIVAN) injection 0.5 mg (COMPLETED) 0.5 mg, IntraVENous, ONCE, 1 dose, On Mon04/27/22 at 1030, PACU only 1023 (Given - Provid er: Karolina Roa RN) sodium chloride flush 0.9 % injection 5-40 mL 5-40 mL, IntraVENous, EVERY 12 HOURS SCHEDULED (2 times per day), First dose on Mon04/27/22 at 0900, Until Discontinued, For Line Patency: Peripheral IV = 5 mL; Midline or Central Line = 10 mL/lumen. If following IV push medication, administer flush at same rate as the IV push. Flush volume is determined by type of infusion therapy being given. For non-viscous solutions use: Peripheral IV = 5 mL Midline or Central Line = 10 mL/lumen For viscous solutions (i.e. blood components, parenteral nutrition, contrast media, or after obtaining blood sample) use: Peripheral IV = 10 mL Midline or Central Line = 20 mL/lumen, Pre-op (day of surgery) 0900 (Due)2100 (Due) sodium chloride flush 0.9 % injection 5-40 mL 5-40 mL, IntraVENous, EVERY 12 HOURS SCHEDULED (2 times per day), First dose on Mon04/27/22 at 1030, Until Discontinued, For Line Patency: Peripheral IV = 5 mL; Midline or Central Line = 10 mL/lumen. If following IV push medication, administer flush at same rate as the IV push. Flush volume is determined by type of infusion therapy being given. For non-viscous solutions use: Peripheral IV = 5 mL Midline or Central Line = 10 mL/lumen For viscous solutions (i.e. blood components, parenteral nutrition, contrast media, or after obtaining blood sample) use: Peripheral IV = 10 mL Midline or Central Line = 20 mL/lumen, PACU only 1030 (Due)2100 (Due) Continuous Medication Order 04/25/2022 04/26/2022 04/27/2022 lactated ringers infusion IntraVENous, at 50 mL/hr, CONTINUOUS, Starting on Mon04/27/22 at 0645, Upon admission to sameday - please start iv if patient does not have iv access. Use 500ml NS for patients on dialysis., Pre-op (day of surgery) 0645 (Due) lactated ringers infusion IntraVENous, at 50 mL/hr, CONTINUOUS, Starting on Mon04/27/22 at 1030, PACU only 1030 (Due) PRN Medication Order 04/25/2022 04/26/2022 04/27/2022 0.9 % sodium chloride bolus 500 mL (6.2 mL/kg), IntraVENous, at 1,000 mL/hr, Administer over 0.5 Hours, PRN, Anti-nausea, Starting on Mon04/27/22 at 1006, PACU only 0.9 % sodium chloride infusion IntraVENous, at 5-250 mL/hr, PRN, if patient receiving piggyback infusions and maintenance fluids are not ordered OR KVO fluids to protect IV site / prevent frequent line interruptions/ long duration, Starting on Mon04/27/22 at 0616, For piggyback infusion, administer at same rate as piggyback for a total of 25 mL. Enter 25 mL into dose field and piggyback rate into rate field of order. If piggyback is infusing at a rate less than 100 mL/hr, enter 25 mL into dose field and 100 mL/hr into rate field of order. For KVO fluids, enter rate of 20 mL/hr or less into rate field of order., Pre-op (day of surgery) 0.9 % sodium chloride infusion IntraVENous, at 5-250 mL/hr, PRN, if patient receiving piggyback infusions and maintenance fluids are not ordered OR KVO fluids to protect IV site / prevent frequent line interruptions/ long duration, Starting on Mon04/27/22 at 0617, For piggyback infusion, administer at same rate as piggyback for a total of 25 mL. Enter 25 mL into dose field and piggyback rate into rate field of order. If piggyback is infusing at a rate less than 100 mL/hr, enter 25 mL into dose field and 100 mL/hr into rate field of order. For KVO fluids, enter rate of 20 mL/hr or less into rate field of order., Pre-op (day of surgery) diphenhydrAMINE (BENADRYL) injection 12.5 mg 12.5 mg, IntraVENous, ONCE PRN, 1 dose, Starting on Mon04/27/22 at 1006, Until Mon04/27/22 at 2359, Itching, PACU only hydrALAZINE (APRESOLINE) injection 5 mg(Linked Group 1) 5 mg, IntraVENous, EVERY 10 MIN PRN, 2 doses, Starting on Mon04/27/22 at 1006, Until Discontinued, High Blood Pressure, for SBP greater than 160 mmHg for 2 consecutive measurements taken from different sites, PRN for SBP > 160 for 2 consecutive measurements, and if one of the following conditions is met: 1) If IV labetolol is ineffective. 2) If HR is under 60. 3) If patient has heart block, COPD or asthma. If both labetalol and hydralazine ineffective, notify anesthesiologist. for use Sameday and, PACU only HYDROmorphone (DILAUDID) injection 0.25 mg HYDROmorphone (DILAUDID) 1.5mg IV is equivalent to morphine 10mg IV, 0.25 mg, IntraVENous, EVERY 5 MIN PRN, 4 doses, Starting on Mon04/27/22 at 1006, Until Discontinued, Pain Moderate (4-6), Phase I and Phase II- Initial therapy for moderate pain (4-6). Restricted to a 90 minute time frame starting when the patient can verbally state their pain score. If oral meds are utilized, do not return to initial therapy medications. SDS and, PACU only HYDROmorphone (DILAUDID) injection 0.5 mg HYDROmorphone (DILAUDID) 1.5mg IV is equivalent to morphine 10mg IV, 0.5 mg, IntraVENous, EVERY 5 MIN PRN, 4 doses, Starting on Mon04/27/22 at 1006, Until Discontinued, Pain Severe (7-10), Phase I or Phase II- Initial therapy for severe pain (7-10). Restricted to a 90 minute time frame starting when the patient can verbally state their pain score. If oral meds are utilized, do not return to initial therapy medications. SDS and, PACU only labetalol (NORMODYNE;TRANDATE) injection 5 mg(Linked Group 1) 5 mg, IntraVENous, EVERY 10 MIN PRN, 2 doses, Starting on Mon04/27/22 at 1006, Until Discontinued, High Blood Pressure, for SBP greater than 160 mmHg for 2 consecutive measurements taken from different sites., PRN for SBP >160 for 2 consecutive measurements, if HR is 60 or greater. If beta nelly is contraindicated (HR less than 60, heart block, COPD or asthma) use hydralazine IV order. for use Sameday and, PACU only lidocaine PF 1 % injection 1 mL 1 mL, IntraDERmal, ONCE PRN, 1 dose, Starting on Mon04/27/22 at 0616, Until Mon04/27/22 at 2359, IV start, Pre-op (day of surgery) meperidine (DEMEROL) injection 12.5 mg 12.5 mg, IntraVENous, EVERY 5 MIN PRN, 4 doses, Starting on Mon04/27/22 at 1006, Until Discontinued, Shivering, , May give every 5 minutes to max of 50mg., PACU only ondansetron (ZOFRAN) injection 4 mg 4 mg, IntraVENous, ONCE PRN, 1 dose, Starting on Mon04/27/22 at 1006, Until Mon04/27/22 at 2359, Nausea, Initial antiemetic therapy., PACU only oxyCODONE (ROXICODONE) immediate release tablet 5 mg (COMPLETED) 5 mg, Oral, PRN, 1 dose, Starting on Mon04/27/22 at 1006, Until Mon04/27/22 at 1253, Pain Moderate (4-6), PHASE II, PACU only 1253 (Given - Provid er: Karolina Roa RN) sodium chloride flush 0.9 % injection 5-40 mL 5-40 mL, IntraVENous, PRN, Starting on Mon04/27/22 at 0616, Until Discontinued, Line Care, After every IV line use, For Line Patency: Peripheral IV = 5 mL; Midline or Central Line = 10 mL/lumen. If following IV push medication, administer flush at same rate as the IV push. Flush volume is determined by type of infusion therapy being given. For non-viscous solutions use: Peripheral IV = 5 mL Midline or Central Line = 10 mL/lumen For viscous solutions (i.e. blood components, parenteral nutrition, contrast media, or after obtaining blood sample) use: Peripheral IV = 10 mL Midline or Central Line = 20 mL/lumen, Pre-op (day of surgery) sodium chloride flush 0.9 % injection 5-40 mL 5-40 mL, IntraVENous, PRN, Starting on Mon04/27/22 at 0617, Until Discontinued, Line Care, After every IV line use, For Line Patency: Peripheral IV = 5 mL; Midline or Central Line = 10 mL/lumen. If following IV push medication, administer flush at same rate as the IV push. Flush volume is determined by type of infusion therapy being given. For non-viscous solutions use: Peripheral IV = 5 mL Midline or Central Line = 10 mL/lumen For viscous solutions (i.e. blood components, parenteral nutrition, contrast media, or after obtaining blood sample) use: Peripheral IV = 10 mL Midline or Central Line = 20 mL/lumen, Pre-op (day of surgery) sodium chloride flush 0.9 % injection 5-40 mL 5-40 mL, IntraVENous, PRN, Starting on Mon04/27/22 at 1006, Until Discontinued, Line Care, After every IV line use, For Line Patency: Peripheral IV = 5 mL; Midline or Central Line = 10 mL/lumen. If following IV push medication, administer flush at same rate as the IV push. Flush volume is determined by type of infusion therapy being given. For non-viscous solutions use: Peripheral IV = 5 mL Midline or Central Line = 10 mL/lumen For viscous solutions (i.e. blood components, parenteral nutrition, contrast media, or after obtaining blood sample) use: Peripheral IV = 10 mL Midline or Central Line = 20 mL/lumen, PACU only Linked Groups Order Group 1: labetalol (NORMODYNE;TRANDATE) injection 5 mgJump to med 5 mg, IntraVENous, EVERY 10 MIN PRN, 2 doses, Starting on Mon04/27/22 at 1006, Until Discontinued, High Blood Pressure, for SBP greater than 160 mmHg for 2 consecutive measurements taken from different sites.
PRN for SBP >160 for 2 consecutive measurements, if HR is 60 or greater. If beta nelly is contraindicated (HR less than 60, heart block, COPD or asthma) use hydralazine IV order. for use [employer] and
PACU only Or hydrALAZINE (APRESOLINE) injection 5 mgJump to med 5 mg, IntraVENous, EVERY 10 MIN PRN, 2 doses, Starting on Mon04/27/22 at 1006, Until Discontinued, High Blood Pressure, for SBP greater than 160 mmHg for 2 consecutive measurements taken from different sites
PRN for SBP > 160 for 2 consecutive measurements, and if one of the following conditions is met: 1) If IV labetolol is ineffective. 2) If HR is under 60. 3) If patient has heart block, COPD or asthma. If both labetalol and hydralazine ineffective, notify anesthesiologist. for use [employer] and
PACU only INFORMATION SOURCE (unrecogn ized section and content) DATE CREATED AUTHOR 07/22/2022 [facility] [employer] [facility] DATE CREATED AUTHOR AUTHOR'S ORGANIZ ATION 03/28/2024 [facility] ([place]) DATE CREATED AUTHOR AUTHOR'S ORGANIZ ATION 07/30/2025 [facility] DATE CREATED AUTHOR AUTHOR'S ORGANIZ ATION 08/29/2025 [facility] FOR RECORDS PERTAINING TO PATIENTS WHO ARE OR HAVE BEEN ENROLLED IN A CHEMICAL DEPENDENCY/SUBSTANCEABUSE PROGRAM, SOME INFORMATION MAY BE OMITTED. This clinical summary was aggregated from multiple sources. Caution should be exercised in using it in the provision of clinical care. This summary normalizes information from multiple sources, and as a consequence, information in this document may materially change the coding, format and clinical context of patient data. In addition, data may be omitted in some cases. CLINICAL DECISIONS SHOULD BE BASED ON THE PRIMARY CLINICAL RECORDS. [facility]. provides no warranty or guarantee of the accuracy or completeness of information in this document.
[2025-10-13 07:13] VITALS: PULSE 91; RESP 14
[2025-10-13 08:18] VITALS: BP 132/70; PULSE 93; RESP 18; TEMP 36.8; O2SAT 93
== END 2025-10-13 08:31 | disposition home or self-care (01) ==
PROVIDERS: Emergency Provider Emergency Medicine; PCP Family Medicine; Visit Provider Emergency Medicine
DX: S52.502A Unspecified fracture of the lower end of left radius, initial encounter for closed fracture (principal); J44.1 Chronic obstructive pulmonary disease with (acute) exacerbation; J44.0 Chronic obstructive pulmonary disease with (acute) lower respiratory infection; I10 Essential (primary) hypertension; J20.9 Acute bronchitis, unspecified; Z79.51 Long term (current) use of inhaled steroids; Z79.899 Other long term (current) drug therapy; W19.XXXA Unspecified fall, initial encounter
CPT/HCPCS: 71045; 73110; 96374; 96375; 99285; A4216; J2405

== ENCOUNTER 2025-10-14 20:06 | Inpatient (IN) | payer MEDICAID, SELFPAY ==
[2025-10-14] VITALS (27 sets, daily range): BP systolic 59–120; BP diastolic 35–101; PULSE 113–148; RESP 14–43; TEMP 36.5–36.6; O2SAT 63–92; BMI 30.5
--- NOTE | 2025-10-14 20:10 | ED.RN ---
RT and Dr Moraes called to bedside, patient placed on Bipap.
--- NOTE | 2025-10-14 20:16 | RAD_ITS ---
PROCEDURE: CHEST 1 VIEW (PORTABLE) 10/14/2025 REASON FOR EXAM: DYSPNEA TECHNIQUE: Frontal view of the chest. COMPARISON: 10/13/2025 FINDINGS: New extensive hazy airspace consolidation in the left lung likely reflecting pneumonia. No focal consolidation on the right. No pneumothorax or sizable pleural effusion. Normal-sized cardiac silhouette. Mild degenerative changes of the visualized spine. RAD/Chest 1 View (Portable) IMPRESSION: New hazy airspace consolidation in the left lung, likely pneumonia. Reading Location: [id number]
--- NOTE | 2025-10-14 20:16 | EKG12_ITS ---
Test Reason : DYSRHYTHMIA Blood Pressure : */* mmHG Vent. Rate : 117 BPM Atrial Rate : 117 BPM P-R Int : 166 ms QRS Dur : 86 ms QT Int : 322 ms P-R-T Axes : 72 48 100 degrees QTcB Int : [address] & T wave abnormality, consider lateral ischemia Abnormal ECG Confirmed by Edu Reddy ([id number]), senior editor SANDRINE PEREZ ([id number]) on 10/17/2025 8:08:01 AM Referred By: Confirmed By: Edu Reddy
--- OUTSIDE RECORDS SUMMARY | 2025-10-14 20:16 | XMS RPT_ITS | CCD ---
Author Organization [facility] CliniSyid Care Team Providers Care Stock Lifter Name Role Phone Arie Salgado DO Unavailable Jeffrey Correa Primary Care Provider Geovani Gay Primary Care Provider Pcp, No Primary Care Provider UnavailGeovani Alegre MD Primary Care Provider Dr. Geovani Gay Primary Care Provider Dr. Mo Sanchez Attending Provider [phone] Mo Sanchez Referring Provider [phone] Mo Sanchez Other Provider Ephraim DERMATOLOGICAL SURGEON, DERMATOLOGICAL SURGEON-C Vonda Attending Provider Ephraim DERMATOLOGICAL SURGEON, DERMATOLOGICAL SURGEON-C Vonda Referring Provider Divine HORAN PA-Jeannie Amin Attending Provider Dr. [...] Provider Dr. Geovani Gay Referring Provider Ila DERMATOLOGICAL SURGEON, JEAN CARLOSC Elina Sales Attending Provider Dr. Cal Bahena Attending Provider [phone] Dr. Cal Bahena Other Provider Geovani Gay MD Primary Care Provider Geovani Gay MD Primary Care Provider PHYSICIAN, NONE Attending Unavailable PHYSICIAN, NONE Primary Care Unavailable Victor Hugo KENT, Dr. Olivo Primary Care Provider [phone] Dr. Bradley Pichardo DO Emergency Provider Misael KENT, Dr. Jose Gamboa Admit Provider Misael KENT, Dr. Jose Gamboa Attending Provider Misael KENT, Dr. Jose Gamboa Other Provider Dr. Troy Akins MD Attending Provider Bianka Douglas MD, Dr. Jose Gamboa Attending Provider Mable KENT, Dr. Smimons Other Provider Unavailable Shruti MANRIQUE, Dr. Mccall [...] claudette Bahena DO, Dr. Mccall Attending Physician Cale KENT, Dr. Lloyd Attending Physician Cale KENT, Dr. Lloyd Referring Provider Haris [...] sources) Adhesive Tape Substance Allergy 01-03-20 23 [facility] Adrenergic Agonists (2 sources) Pseudoephedrine Drug Allergy 04-05-20 17 [facility] Aminoketones (2 sources) buPROPion Drug Allergy 09-18-20 16 [facility] Anti-Epileptic Agents (2 sources) gabapentin Drug Allergy 12-04-19 [facility] Cephalosporins (antibiotic) (2 sources) Cefuroxime Drug Allergy 09-18-20 16 Hives [facility] cyclobenzaprine (2 sources) cyclobenzaprine Drug Allergy 09-18-20 16 [facility] Doxepin (2 sources) Doxepin Drug Allergy 09-18-20 16 [facility] Nicotine (2 sources) Nicotine Drug Allergy 12-04-19 [facility] Opioid Agonists (2 sources) Codeine Drug Allergy 09-18-20 16 Nausea And Vomiting [facility] Psyllium (2 sources) Psyllium Drug Allergy 04-10-20 [facility] Serotonin Reuptake Inhibitors (SSRIs) (2 sources) FLUoxetine Drug Allergy 12-04-19 [facility] (1 source) buPROPion Drug Allergy 02-07-20 14 seizures [facility] Work Phone: (1 source) cefuroxime Drug Allergy 02-07-20 14 rash [facility] Work Phone: (1 source) codeine Drug Allergy 02-07-20 14 nausea/vomitin g, stomach pain [facility] Work Phone: (1 source) cyclobenzaprine Drug Allergy 02-07-20 14 seizures [facility] Work Phone: (1 source) FLUoxetine Drug Allergy 02-07-20 14 high anxiety [facility] Work Phone: (20 sources) gabapentin Drug Allergy 02-07-20 14 poor concentration, drowsiness, INCREASED ANXIETY, CONFUSION [facility] Work Phone: Comment on above: drowsiness (1 source) pseudoephedrine Drug Allergy 04-05-20 17 seizures [facility] Work Phone: (1 source) risperiDONE Drug Allergy 02-07-20 14 seizures [facility] Work Phone: (1 source) TENS UNIT PATCHES drug allergy 02-07-20 14 rash [facility] Work Phone: (20 sources) buPROPion Drug Allergy 09-18-20 16 SEIZURES [place] Comment on above: SEIZURES (20 sources) Cefuroxime Drug Allergy 09-18-20 16 Hives [place] (20 sources) Codeine Drug Allergy 09-18-20 16 Other (See Comments), Nausea And Vomiting [place] (20 sources) cyclobenzaprine Drug Allergy 09-18-20 16 SE[place] Comment on above: SEIZURES (20 sources) Doxepin Drug Allergy 09-18-20 16 [place] (20 sources) Risperidone And Related Propensity to adverse reactions to drug 09-18-20 16 [place] (20 sources) FLUoxetine Drug Allergy 12-04-19 20 INCREASED ANXIETY [facility] Work Phone: (20 sources) Nicotine Drug Allergy 12-04-19 20 Itching [facility] Work Phone: (20 sources) Pseudoephedrine Drug Allergy 04-05-20 17 [place] (20 sources) Psyllium Drug Allergy 04-10-20 20 [place] (3 sources) Other Propensity to adverse reactions 12-10-19 20 Rash [place] (9 sources) risperiDONE Drug Allergy 11-03-19 SEIZURES [facility] Comment on above: SEIZURES (1 source) TENS unit patch Allergy to substance 11-03-19 [facility] Work Phone: (9 sources) Adhesive agent; Translations: [adhesive] Allergy to substance 01-03-20 [facility] Comment on above: TENS UNIT PATCH (20 sources) Adhesive Tape Drug Allergy 01-03-20 [facility] (20 sources) Wound Dressing Adhesive Drug Allergy 01-03-20 [facility] (6 sources) Risperidone And Paliperidone Drug Intolerance 09-18-20 [facility] (1 source) buPROPion Drug Allergy 07-28-20 [facility] (1 source) Cefuroxime Drug Allergy 07-28-20 [facility] (1 source) Codeine Drug Allergy 07-28-20 [facility] (1 source) cyclobenzaprine Drug Allergy 07-28-20 [facility] (1 source) FLUoxetine Drug Allergy 07-28-20 [facility] (1 source) gabapentin Drug Allergy 07-28-20 [facility] (1 source) Nicotine Drug Allergy 07-28-20 [facility] (1 source) risperiDONE Drug Allergy 07-28-20 [facility] NEGATED: Highlighted row has been ruled out! (6 sources) Other Propensity to adverse reactions 12-10-19 [facility] Medications Current Medications Medication Drug Class(es) Dates Sig (Normalized) Sig (Original) [id number] 200 actuat albuterol 0.09 mg/actuat metered dose [...] four times daily as needed ALBUTEROL SULFATE [id number] Chantelle Roche Albuterol Sulfat e (PROVENTIL HFA [...] MG TAB S three times daily ALPRAZOLAM [id number] Chantelle Roche take 1 tablet by maria [...] MG TABS 1 tablet daily AMLODIPINE BESYLATE 75191987419 Maxine Moya LPN amoxicillin 875 mg / [...] MG TABS 1 tablet daily ATORVASTATIN CALCIUM 20952271034 Maxine Stanleyro FABRIC SOURCER azithromycin 250 mg oral tablet (14 sources) [...] Start: 03-19-2020 take 2 puff(s) by mo [facility] twice daily budesonide-formoterol (SYMBICORT) 160-4.5 MCG/ACT AERO [...] Active Start: 03-23-2024 take 1 tablet by maria a th twice daily Carbamazepine 200 mg [...] Active Start: 11-12-2021 take 2 tablets by [facility] twice daily carBAMazepine (TEGRETOL XR) 200 MG extended release tablet Indications: Epilepsy, unspecified, not intractable, without status epilepticus (HCC) TAKE 2 TABLETS BY MOUTH TWICE A DAY 120 tablet 5 11/12/2021 Active Start: 06-21-2021 take 2 tablets by [facility] twice daily carBAMazepine (TEGRETOL XR) 200 MG extended release tablet Indications: Epilepsy, unspecified, not intractable, without status epilepticus (HCC) TAKE 2 TABLETS BY MOUTH TWICE A DAY 120 tablet 5 06/21/2021 Active Start: 06-17-2021 take 400 mg by mouth twice daily Carbamazepine Active 400 MG PO TWICE A DAY June 17, 2021 12:53pm Start: 12-23-2020 take 2 tablets by [facility] twice daily carBAMazepine (TEGRETOL XR) 200 MG [...] seizures Start: 06-30-2020 take 2 tablets by [facility] twice daily carBAMazepine (TEGRETOL XR) 200 MG extended release tablet Indications: Epilepsy, unspecified, not intractable, without status epilepticus (HCC) TAKE 2 TABLETS BY MOUTH TWICE A DAY 120 tablet 5 06/30/2020 Active Start: 02-06-2014 TEGRETOL-XR 20 0 MG [id number] 2 tablets twice daily CARBAMAZEPINE [id number] Maxine Stanleyrebekah GUSMANN [facility] carBAMazepine (TEGRETOL) 200 MG tablet [...] Start: 09-11-2024 take 1 capsule by mo [facility] once daily Duloxetine 60 mg capsule,delayed release(DR/EC) Active 60 mg PO DAILY March 20, 2025 12:00am Start: 05-15-2023 End: 07-21-2025 take 1 capsule by mouth at bedtime Duloxetine 30 mg capsule,delayed release(DR/EC) Discontinued 30 mg PO AT BEDTIME March 23, 2024 12:00am July 21, 2025 12:49pm Start: 05-15-2023 take 1 capsule by [facility] twice daily DULoxetine (Cymbalta) [address] capsule Take 30 mg by mouth 2 times daily. 05/15/2023 Active ergocalciferol 1.25 mg oral capsule (20 sources) Provitamin D2 Compound Start: 01-13-2025 End: 06-26-2025 Ergocalciferol (Vitamin D2) 1,250 mcg (50,000 unit) capsule Active 1250 ug PO EVERY WEEK March 20, 2025 12:00am Complies with drug therapy Start: 06-17-2024 take 1 capsule by [facility] every week ergocalciferol (Vitamin D2) 1.25 MG (70502 UT) capsule Indications: Vitamin D deficiency, unspecified Take 1 capsule (1.25 mg) by mouth 1 (one) time per week. 12 capsule 1 06/17/2024 Active Start: 02-14-2024 End: 06-13-2024 take 1 capsule by mouth every week ergocalciferol (Vitamin D2) 1.25 MG (75720 UT) capsule Indications: Vitamin D deficiency, unspecified Take 1 capsule (1.25 mg) by mouth 1 (one) time per week. 4 capsule 1 06/13/2024 Active Start: 09-30-2022 End: 12-18-2023 take 1 capsule by mouth every week ergocalciferol (Vitamin D2) 1.25 MG (15562 UT) capsule Indications: Vitamin D deficiency, unspecified TAKE 1 CAPSULE BY MOUTH ONE TIME PER WEEK 4 capsule 2 12/14/2022 Active Start: 06-22-2022 take 1 capsule by mo [facility] every week vitamin D (ERGOCALCIFEROL) 1.25 MG (56625 UT) CAPS capsule Indications: Vitamin D deficiency, unspecified TAKE 1 CAPSULE BY MOUTH ONE TIME PER WEEK 4 capsule 2 06/22/2022 Active Start: 03-09-2022 take 1 capsule by mo [facility] every week vitamin D (ERGOCALCIFEROL) 1.25 MG (49187 UT) CAPS capsule Indications: Vitamin D deficiency, unspecified TAKE 1 CAPSULE BY MOUTH ONE TIME PER WEEK 4 capsule 2 03/09/2022 Active Start: 06-09-2021 take 1 capsule by mo [facility] every week vitamin D (ERGOCALCIFEROL) 1.25 MG (47642 UT) CAPS capsule Indications: Vitamin D deficiency, unspecified TAKE 1 CAPSULE BY MOUTH ONE TIME PER WEEK 4 capsule 2 06/09/2021 Active Start: 07-30-2020 End: 03-20-2025 Ergocalciferol (Vitamin D2) 50,000 UNIT capsule Discontinued 91601 U PO MO July 30, 2020 12:00am March 20, 2025 6:01pm vitamin Take every monday Start: 04-27-2020 take 1 capsule by mo [facility] every week vitamin D (ERGOCALCIFEROL) 1.25 MG (56002 UT) CAPS capsule Indications: Vitamin D deficiency, [...] TABS 1 tablet every 12 hours LEVETIRACETAM 00870458427 Maxine Moya FABRIC SOURCER Start: 09-23-2016 take 1 tablet by maria [...] M G TABS 1 tablet daily LISINOPRIL 26554441145 aMxine Moya LPN take 1 tablet by maria [...] (wheezing, cough,). 1 each 01/09/2025 Active nystatin 413005 unt/ml oral suspension (20 sources) Polyene Antifungal Start: 07-21-2025 take 968046 [IU] by mouth four times daily Nystatin 100,000 unit/mL suspension Active 977146 U PO 4 TIMES DAILY July 21, 2025 12:00am Complies with drug therapy Start: 03-25-2025 End: 07-07-2025 take 534938 [IU] by mouth four times daily Nystatin 100,000 unit/mL Suspension Discontinued 948049 U PO 4 TIMES DAILY 280 14 0 March 25, 2025 12:00am July 07, 2025 4:00pm Start: 01-28-2025 take 5 mL by mouth f our times daily nystatin (Mycostatin) 456717 UNIT/ML suspension Take 5 mL (500,000 Units) [...] 1:04pm Start: 08-27-2020 End: 05-29-2024 nystatin (Mycostatin) 166546 UNIT/GM powder Apply 3 times daily. 08/27/2020 05/29/2024 Discontinued (Med list cleanup) Start: 08-27-2020 nystatin (MYCO STATIN) 486890 UNIT/GM powder Apply 3 times daily. 100 g 0 08/27/2020 Active [place]-3 Fatty Acids (OMEGA 3 PO) (3 sources) take 1 tablet by mouth three times daily [place]-3 Fatty Acids (OMEGA 3 PO) Take 1 [...] CAPSULE DELAYED RELEASE 1 capsule daily OMEPRAZOLE 51918055866 Chantelle Roche take 1 capsule by mo [...] 30, 2020 12:00am March 20, 2025 6:07pm [facility] microencapsulated potassium chloride 20 meq extended release [...] 2.5 ug by inhalation once daily Tiotropium [place] (Spiriva Respimat) 2.5 mcg/actuation mist Discontinued 2 NMA INHALATION daily 10 28October 04, 2021 2:58pm March 20, 2025 6:04pm administer at approximately the same time(s) each day Start: 09-30-2021 End: 10-04-2021 take 1 puff(s) by inhalation once daily Tiotropium [place] (Spiriva Respimat) 2.5 mcg/actuation mist Active 2 [...] Agonist Start: 05-21-2021 End: 06-17-2021 Hydrocodone-Acetamin ophen ([place]) 5-325 mg Tablet Discontinued 1 {tbl} PO [...] TABS 1 tablet 3-4 times daily HYDROCODONE-ACETAMINOPHEN 32208508888 Nat Sepulveda ADAPTIVE PHYSICAL EDUCATOR-RIDING TEACHER take 1 tablet by maria a th [...] PO DAILY April 18, 2024 12:00am cholecalciferol 56466 unt oral tablet (1 source) Vitamin D Start: 04-05-2017 VITAMIN D3 76793 UNIT TABS 1 tablet weekly CHOLECALCIFEROL 38026783687 Maxine Moay LPN docusate sodium 50 mg / sennosides, longterm 8.6 mg oral tablet (16 sources) Start: [...] AEPB inhale 1 puff twice daily FLUTICASONE-SALMETEROL 57357375484 Chantelle Roche take 1 puff(s) by in [...] NEBULIZER 4 times daily as needed NEBULIZERS 77888014112 Maxine Moya LPN pantoprazole 40 mg delayed [...] tablet twice daily as needed RAMIPRIL CAPS 75640766115 Nat Sepulveda ADAPTIVE PHYSICAL EDUCATOR-RIDING TEACHER 72 hr scopolamine 0.0139 mg/hr transdermal system [...] 04-11-2017 Chronic Other aftercare (2 sources) Other nursing home (current) drug therapy; Translations: [Other long term care phlebotomist (current) drug therapy] Onset: 2 Episodic Other [...] Visit Repor ton 08-19-2025 Gastroenterology Visit Report [facility] Gastroenterology [address] [place] [address] OFFICE VISIT Date of Service: 08/19/25 MR#: [id number] Acct: [id number] Name: AISHA HA Rep #: [id number] : 1965 Provider: Cal Bahena DO Age/Sex: 60/F Location: [place] Status: Signed Intake Vital Signs 03/25/25 12:15 [...] mg 25 mg PO QDAY 07/07/25 08/19/25 Videregen tablet,extended release 24 hr omeprazole 40 mg capsule,delayed 40 mg PO BID 07/07/25 08/19/25 His tory release thiamine HCl (vitamin B1) 50 mg 50 mg PO QDAY 07/07/25 08/19/25 Videregen tablet calcium 600 mg (as 1 tab [...] of esophagogastrod (more content not included)... Normal [facility] 36on 07-28-2025 36 Rx sent. Recommend checking her level at her upcoming appointment on 09/10/2025. Normal [facility] 36 Prescription Request : CARBAMAZEPINE ER 200 MG TABLET Last medication check: 03/04/25 Last physical exam: 06/13/24 Next scheduled appointment: 09/10/25 Last date of refill on this medication 12/30/24 ( qty 360 refill 1) [facility] 12 Lead EKGon 07-21-2025 12 Lead EKG [facility] Cardiovascular Services [address] [place] [address] 12 Lead EKG 07/21/25 1352 MR#: [id number] Acct: [id number] Name: AISHA HA Rep #: [id number] : 1965 60 From: Jez Smalls MD [...] Normal ECG Confirmed by MILLER KENT, JEZ ([id number]), city editor HELADIO MARIN ([id number]) on 07/22/2025 8:07:29 AM Referred By: Confirmed By: JEZ SMALLS MD 07/22/25 0807 Date Jez Smalls MD CC: Dr. Geovani Gay MD; Dr. David Carballo MD Signed Normal [facility] Absolute lymphocyte countOrd ered By: David Carballo on 07-21-2025 Lymphocytes Auto (Unsp spec) [#/Vol] 2.71 10*3/uL 0.83-4.51 [facility] Absolute neutrophil countOrd ered By: David Carballo on 07-21-2025 Neutrophils (Bld) [#/Vol] 3.5 10*3/uL 2.0-7.7 [facility] Anion gap in Serum or Plasma Ordered By: David Carballo on 07-21-2025 Anion gap [Moles/Vol] 13 mmol/L 03-06 [facility] Automated lymphocyte count a s percentage of total leukocytesOrdered By: David Carballo on 07-21-2025 Lymphocytes/100 WBC Auto (Unsp spec) 39.7 % [facility] BUN/creatinine ratioOrdered By: David Carballo on 07-21-2025 Urea nitrogen/Creatinine [Mass ratio] 11.7 mg/mg 08-11 [facility] Basic Metabolic Profile (BMP )on 07-21-2025 BUN/CRE 11.7 RATIO Normal 08-11 [facility] Comment on above: Performed By: #### L 100.0100, L500.2500 ####[facility] [address] [place], [address] Calcium [Mass/Vol] 8.9 mg/dL Normal 7.6-11.0 [facility] Comment on above: Performed By: #### L 100.0100, L500.2500 ####[facility] [address] [place], [address] Chloride [Moles/Vol] 96 mmol/L Low 98-108 [facility] Comment on above: Performed By: #### L 100.0100, L500.2500 ####[facility] [address] [place], [address] CO2 [Moles/Vol] 25.7 mmol/L Normal 21.0-32.0 [facility] Comment on above: Performed By: #### L 100.0100, L500.2500 ####[facility] [address] [place], [address] Creatinine [Mass/Vol] 0.67 mg/dL Low 0.70-1.20 [facility] Comment on above: Performed By: #### L 100.0100, L500.2500 ####[facility] [address] [place], [address] GAP 13 Normal 5-15 [facility] Comment on above: Performed By: #### L 100.0100, L500.2500 ####[facility] [address] [place], [address] GFR/1.73 sq M.predicted among non-blacks MDRD (S/P/Bld) [Vol rate/Area] 99 mL/min/{1.73_m2} Normal >60 [facility] Comment on above: Result Comment: mL/m in/1.73m2 CKD-EPI Creatinine Equation (2020) Performed By: #### L 100.0100, L500.2500 ####[facility] [address] [place], [address] Glucose [Mass/Vol] 91 mg/dL Normal 70-99 [facility] Comment on above: Performed By: #### L 100.0100, L500.2500 ####[facility] [address] [place], [address] Potassium [Moles/Vol] 3.8 mmol/L Normal 3.3-5.1 [facility] Comment on above: Performed By: #### L 100.0100, L500.2500 ####[facility] [address] [place], [address] Sodium [Moles/Vol] 134 mmol/L Normal 133-145 [facility] Comment on above: Performed By: #### L 100.0100, L500.2500 ####[facility] [address] [place], [address] Urea nitrogen [Mass/Vol] 8 mg/dL Normal 4-19 [facility] Comment on above: Performed By: #### L 100.0100, L500.2500 ####[facility] [address] [place], [address] Basophil percentageOrdered B y: David Carballo on 07-21-2025 Basophils/100 WBC (Bld) 0.4 % 0-1 [facility] CBC W/Diff, Automatedon 06-24 Absolute Lymph 2.71 X10 3/uL Normal 0.83-4.51 [facility] Comment on above: Performed By: #### L 100.0100, L500.2500 ####[facility] [address] [place], [address] Absolute Neut 3.5 X10 3/uL Normal 2.0-7.7 [facility] Comment on above: Performed By: #### L 100.0100, L500.2500 ####[facility] [address] [place], [address] Basophils/100 WBC (Bld) 0.4 % Normal 0-1 [facility] Comment on above: Performed By: #### L 100.0100, L500.2500 ####[facility] [address] [place], [address] Eosinophils/100 WBC (Bld) 1.2 % Normal 0-5 [facility] Comment on above: Performed By: #### L 100.0100, L500.2500 ####[facility] [address] [place], [address] Erythrocyte distribution width (RBC) [Ratio] 18.3 % High 11.6-14.6 [facility] Comment on above: Performed By: #### L 100.0100, L500.2500 ####[facility] [address] [place], [address] Hematocrit (Bld) [Volume fraction] 33.3 % Low 37-47 [facility] Comment on above: Performed By: #### L 100.0100, L500.2500 ####[facility] [address] [place], [address] Hemoglobin (Bld) [Mass/Vol] 10.5 g/dL Low 12.0-15.0 [facility] Comment on above: Performed By: #### L 100.0100, L500.2500 ####[facility] [address] [place], [address] IG% 0.300 Normal 0.0-0.9 [facility] Comment on above: Result Comment: IG% - Immature Granulocytes (promyelocytes, myelocytes and metamyelocytes) > 1% indicates that a LEFT SHIFT is Present. Performed By: #### L 100.0100, L500.2500 ####[facility] [address] [place], [address] Lymphocytes/100 WBC (Bld) 39.7 % Normal 19-41 [facility] Comment on above: Performed By: #### L 100.0100, L500.2500 ####[facility] [address] [place], [address] MCH (RBC) [Entitic mass] 27.6 pg Normal 27.0-32.0 [facility] Comment on above: Performed By: #### L 100.0100, L500.2500 ####[facility] [address] [place], [address] MCHC (RBC) [Mass/Vol] 31.5 g/dL Low 32-36 [facility] Comment on above: Performed By: #### L 100.0100, L500.2500 ####[facility] [address] [place], [address] MCV (RBC) [Entitic vol] 87.4 fL Normal 81-99 [facility] Comment on above: Performed By: #### L 100.0100, L500.2500 ####[facility] [address] [place], [address] Monocytes/100 WBC (Bld) 7.3 % Normal 0-10 [facility] Comment on above: Performed By: #### L 100.0100, L500.2500 ####[facility] [address] [place], [address] Neutrophils/100 WBC (Bld) 51.1 % Normal 47-70 [facility] Comment on above: Performed By: #### L 100.0100, L500.2500 ####[facility] [address] [place], [address] Nucleated RBC (Bld) [#/Vol] 0 10*3/uL Normal 0-5 [facility] Comment on above: Performed By: #### L 100.0100, L500.2500 ####[facility] [address] [place], [address] Platelet mean volume (Bld) [Entitic vol] 9.9 fL Normal 6.2-12.0 [facility] Comment on above: Performed By: #### L 100.0100, L500.2500 ####[facility] [address] [place], [address] Platelets (Bld) [#/Vol] 240 10*3/uL Normal 150-450 [facility] Comment on above: Performed By: #### L 100.0100, L500.2500 ####[facility] [address] [place], [address] RBC (Bld) [#/Vol] 3.81 10*6/uL Low 4.2-5.4 [facility] Comment on above: Performed By: #### L 100.0100, L500.2500 ####[facility] [address] [place], [address] RDW SD 57.1 fl High 35.1-43.9 [facility] Comment on above: Performed By: #### L 100.0100, L500.2500 ####[facility] [address] [place], [address] WBC (Bld) [#/Vol] 6.8 10*3/uL Normal 4.4-11.0 [facility] Comment on above: Performed By: #### L 100.0100, L500.2500 ####[facility] [address] [place], [address] Carbon dioxide, total [Moles /volume] in Central venous bloodOrdered By: David Carballo on 07-21-2025 CO2 [Moles/Vol] 25.7 mmol/L 21.0-32.0 [facility] Chest PA and Lateralon 07-21 Chest PA and Lateral [facility] Imaging Services [address] [place] [address] Chest PA and Lateral MR#: [id number] Acct: [id number] Name: AISHA HA Rep #: [id number] : 1965 F 60 From: Luiz Herzog MD PCP: Dr. Geovani Gay MD Status: REG ER Study: Chest PA and Lateral Date of Exam: 07/21/25 Exam# [id number] Ordering Dr: David Carballo MD PROCEDURE: CHEST [...] Possibly new. Resolution left-sided pneumonia. Reading Location: [place] [address] CC: Dr. Geovani Gay MD; Dr. David Carballo MD [facility] Attendant: Signed [facility] Chloride assayOrdered By: Long Carballo on 07-21-2025 Chloride [Moles/Vol] 96 mmol/L Low 98-108 [facility] Electrocardiogram reportOrde red By: Jez Smalls on 07-21-2025 EKG study [facility] Services [address] [place] [address] 12 Lead EKG 07/21/25 1352 MR#: [id number] Acct: [id number] Name: AISHA HA Rep #:[id number] : 1965 60 From: Jez Smalls MD [...] ECG Confirmed by MILLER KENT, JEZ ([id number]), city editor HELADIO MARIN ([id number]) on 58:07:29 AM Referred By: Confirmed By: JEZ SMALLS MD 07/22/2507 Date _ Jez Smalls MD CC: Dr. Geovani Gay MD; Dr. David Carballo MD ~ Signed [facility] Other Phone: Emergency Department Summary on 07-21-2025 Emergency Department Summary [facility] Medical Records Department [address] [place] [address] Emergency Department Summary 07/21/25 MR#: [id number] Acct: [id number] Name: AISHA HA Rep #: [id number] : 1965 60 From: David Carballo MD [...] mg PO (more content not included)... [facility] Eosinophil percentageOrdered By: David Carballo on 07-21-2025 Eosinophils/100 WBC (Bld) 1.2 % 0-5 [facility] Erythrocyte distribution wid th ratioOrdered By: David Carballo on 07-21-2025 Erythrocyte distribution width (RBC) [Ratio] 18.3 % High 11.6-14.6 [facility] Erythrocyte distribution wid th standard deviationOrdered By: David Carballo on 07-21-2025 Erythrocyte distribution width (RBC) [Ratio] 57.1 fl High 35.1-43.9 [facility] Glomerular filtration rate ( GFR) estimation/1.73 sq m using serum, plasma, or whole bOrdered By: David Carballo on 07-21-2025 GFR/1.73 sq M.predicted among non-blacks MDRD (S/P/Bld) [Vol rate/Area] 99 mL/min/{1.73_m2} >60 [facility] Comment on above: mL/min/1.73m2 CKD-EP I Creatinine Equation (2020) Hematocrit Auto (Bld) [Volum e fraction]Ordered By: David Carballo on 07-21-2025 Hematocrit (Bld) [Volume fraction] 33.3 % Low 37-47 [facility] Hemoglobin measurementOrdere d By: Daivd Carballo on 07-21-2025 Hemoglobin (Bld) [Mass/Vol] 10.5 g/dL Low 12.0-15.0 [facility] Immature granulocytes/100 WB C Auto (Bld)Ordered By: David Carballo on 07-21-2025 Immature granulocytes/100 WBC (Bld) 0.300 % 0.0-0.9 [facility] Comment on above: IG% - Immature Granu locytes (promyelocytes, myelocytes and metamyelocytes) > 1% indicates that a LEFT SHIFT is Present. Influenza virus A and B and SARS-CoV-2 (COVID-19) and Respiratory syncytial virus RNAOrdered By: David Carballo on 07-21-2025 SARS-CoV-2 (COVID-19) RNA SRAVANI+probe Ql (Unsp spec) [facility] L501.4021on 07-21-2025 Trop T High Sen 10 ng/L Normal <=14 [facility] Comment on above: Performed By: #### L 503.5586 #### [facility] [address] [place], [address] M100.678on 07-21-2025 M100.678 Pending SARS-CoV-2 (COVID 19) Negative INFLUENZA A Negative INFLUENZA B Negative RSV PCR Negative [facility] Comment on above: Performed By: #### M 100.678 ####[facility] [address] [place], [address] MCV (mean corpuscular volume ) determinationOrdered By: David Carballo on 07-21-2025 MCV (RBC) [Entitic vol] 87.4 fL 81-99 [facility] Mean corpuscular hemoglobin (MCH) determinationOrdered By: David Carballo on 07-21-2025 MCH (RBC) [Entitic mass] 27.6 pg 27.0-32.0 [facility] Mean corpuscular hemoglobin concentration (MCHC) determinationOrdered By: David Carballo on 07-21-2025 MCHC (RBC) [Mass/Vol] 31.5 g/dL Low 32-36 [facility] Mean platelet volume determi nationOrdered By: David Carballo on 07-21-2025 Platelet mean volume (Bld) [Entitic vol] 9.9 fL 6.2-12.0 [facility] Monocyte percentageOrdered B y: David Carballo on 07-21-2025 Monocytes/100 WBC (Bld) 7.3 % 0-10 [facility] Neutrophil percentageOrdered By: David Carballo on 07-21-2025 Neutrophils/100 WBC (Bld) 51.1 % 47-70 [facility] Nucleated red blood cell per centageOrdered By: David Carballo on 07-21-2025 Nucleated RBC/100 WBC (Bld) [Ratio] 0 % 0-5 [facility] Platelet countOrdered By: Long Carballo on 07-21-2025 Platelets (Bld) [#/Vol] 240 10*3/uL 150-450 [facility] Potassium measurement (mass/ volume)Ordered By: David Carballo on 07-21-2025 Potassium (Unsp spec) [Mass/Vol] 3.8 mmol/L 3.3-5.1 [facility] RBC Auto (Bld) [#/Vol]Ordere d By: David Carballo on 07-21-2025 RBC (Bld) [#/Vol] 3.81 10*6/uL Low 4.2-5.4 [facility] Serum creatinine measurement (mass/volume)Ordered By: David Carballo on 07-21-2025 Creatinine [Mass/Vol] 0.67 mg/dL Low 0.70-1.20 [facility] Serum glucose measurement (m ass/volume)Ordered By: David Carballo on 07-21-2025 Glucose [Mass/Vol] 91 mg/dL 70-99 [facility] Serum or plasma calcium ceasar urement (mass/volume)Ordered By: David Carballo on 07-21-2025 Calcium [Mass/Vol] 8.9 mg/dL 7.6-11.0 [facility] Serum or plasma urea nitroge n measurement (mass/volume)Ordered By: David Carballo on 07-21-2025 Urea nitrogen [Mass/Vol] 8 mg/dL 4-19 [facility] Sodium levelOrdered By: David aCrballo on 07-21-2025 Sodium [Moles/Vol] 134 mmol/L 133-145 [facility] Troponin T.cardiac [Mass/vol ume] in Serum or Plasma by High sensitivity methodOrdered By: David Carballo on 07-21-2025 Troponin T.cardiac High sensitivity method [Mass/Vol] 10 ng/L Invalid Interpretation Code <14 [facility] Comment on above: Delta: 22 on White blood cell (WBC) count Ordered By: David Carballo on 07-21-2025 WBC (Bld) [#/Vol] 6.8 10*3/uL 4.4-11.0 [facility] Absolute lymphocyte countOrd ered By: Gabino Madsen on 07-07-2025 Lymphocytes Auto (Unsp spec) [#/Vol] 2.45 10*3/uL 0.83-4.51 [facility] Absolute neutrophil countOrd ered By: Gabino Madsen on 07-07-2025 Neutrophils (Bld) [#/Vol] 6.0 10*3/uL 2.0-7.7 [facility] Anion gap in Serum or Plasma Ordered By: Gabino Madsen on 07-07-2025 Anion gap [Moles/Vol] 11 mmol/L 03-06 [facility] Automated lymphocyte count a s percentage of total leukocytesOrdered By: aGbino Madsen on 07-07-2025 Lymphocytes/100 WBC Auto (Unsp spec) 26.0 % 19-41 [facility] BUN/creatinine ratioOrdered By: Gabino Madsen on 07-07-2025 Urea nitrogen/Creatinine [Mass ratio] 11.7 mg/mg 10-20 [facility] Basophil percentageOrdered B y: Gabino Madsen on 07-07-2025 Basophils/100 WBC (Bld) 0.5 % 0-1 [facility] Bilirubin, totalOrdered By: Gabino Madsen on 07-07-2025 Bilirubin [Mass/Vol] 0.19 mg/dL 0.00-1.30 [facility] CBC W/Diff, Automatedon 06-23 Absolute Lymph 2.45 X10 3/uL Normal 0.83-4.51 [facility] Comment on above: Performed By: #### L 300.3900, M200.1000, L503.6005, L100.0100, L501.4021, L300.4310, L500.4050 #### [facility] [address] [place], [address] Absolute Neut 6.0 X10 3/uL Normal 2.0-7.7 [facility] Comment on above: Performed By: #### L 300.3900, M200.1000, L503.6005, L100.0100, L501.4021, L300.4310, L500.4050 #### [facility] [address] [place], [address] Basophils/100 WBC (Bld) 0.5 % Normal 0-1 [facility] Comment on above: Performed By: #### L 300.3900, M200.1000, L503.6005, L100.0100, L501.4021, L300.4310, L500.4050 #### [facility] [address] [place], [address] Eosinophils/100 WBC (Bld) 1.8 % Normal 0-5 [facility] Comment on above: Performed By: #### L 300.3900, M200.1000, L503.6005, L100.0100, L501.4021, L300.4310, L500.4050 #### [facility] [address] [place], [address] Erythrocyte distribution width (RBC) [Ratio] 17.2 % High 11.6-14.6 [facility] Comment on above: Performed By: #### L 300.3900, M200.1000, L503.6005, L100.0100, L501.4021, L300.4310, L500.4050 #### [facility] [address] [place], [address] Hematocrit (Bld) [Volume fraction] 30.8 % Low 37-47 [facility] Comment on above: Performed By: #### L 300.3900, M200.1000, L503.6005, L100.0100, L501.4021, L300.4310, L500.4050 #### [facility] [address] [place], [address] Hemoglobin (Bld) [Mass/Vol] 9.6 g/dL Low 12.0-15.0 [facility] Comment on above: Performed By: #### L 300.3900, M200.1000, L503.6005, L100.0100, L501.4021, L300.4310, L500.4050 #### [facility] [address] [place], [address] IG% 0.300 Normal 0.0-0.9 [facility] Comment on above: Result Comment: IG% - Immature Granulocytes (promyelocytes, myelocytes and metamyelocytes) > 1% indicates that a LEFT SHIFT is Present. Performed By: #### L 300.3900, M200.1000, L503.6005, L100.0100, L501.4021, L300.4310, L500.4050 #### [facility] [address] [place], [address] Lymphocytes/100 WBC (Bld) 26.0 % Normal 19-41 [facility] Comment on above: Performed By: #### L 300.3900, M200.1000, L503.6005, L100.0100, L501.4021, L300.4310, L500.4050 #### [facility] [address] [place], [address] MCH (RBC) [Entitic mass] 27.0 pg Normal 27.0-32.0 [facility] Comment on above: Performed By: #### L 300.3900, M200.1000, L503.6005, L100.0100, L501.4021, L300.4310, L500.4050 #### [facility] [address] [place], [address] MCHC (RBC) [Mass/Vol] 31.2 g/dL Low 32-36 [facility] Comment on above: Performed By: #### L 300.3900, M200.1000, L503.6005, L100.0100, L501.4021, L300.4310, L500.4050 #### [facility] [address] [place], [address] MCV (RBC) [Entitic vol] 86.8 fL Normal 81-99 [facility] Comment on above: Performed By: #### L 300.3900, M200.1000, L503.6005, L100.0100, L501.4021, L300.4310, L500.4050 #### [facility] [address] [place], [address] Monocytes/100 WBC (Bld) 7.4 % Normal 0-10 [facility] Comment on above: Performed By: #### L 300.3900, M200.1000, L503.6005, L100.0100, L501.4021, L300.4310, L500.4050 #### [facility] [address] [place], [address] Neutrophils/100 WBC (Bld) 64.0 % Normal 47-70 [facility] Comment on above: Performed By: #### L 300.3900, M200.1000, L503.6005, L100.0100, L501.4021, L300.4310, L500.4050 #### [facility] [address] [place], [address] Nucleated RBC (Bld) [#/Vol] 0 10*3/uL Normal 0-5 [facility] Comment on above: Performed By: #### L 300.3900, M200.1000, L503.6005, L100.0100, L501.4021, L300.4310, L500.4050 #### [facility] [address] [place], [address] Platelet mean volume (Bld) [Entitic vol] 9.9 fL Normal 6.2-12.0 [facility] Comment on above: Performed By: #### L 300.3900, M200.1000, L503.6005, L100.0100, L501.4021, L300.4310, L500.4050 #### [facility] [address] [place], [address] Platelets (Bld) [#/Vol] 208 10*3/uL Normal 150-450 [facility] Comment on above: Performed By: #### L 300.3900, M200.1000, L503.6005, L100.0100, L501.4021, L300.4310, L500.4050 #### [facility] [address] [place], [address] RBC (Bld) [#/Vol] 3.55 10*6/uL Low 4.2-5.4 [facility] Comment on above: Performed By: #### L 300.3900, M200.1000, L503.6005, L100.0100, L501.4021, L300.4310, L500.4050 #### [facility] [address] [place], [address] RDW SD 54.6 fl High 35.1-43.9 [facility] Comment on above: Performed By: #### L 300.3900, M200.1000, L503.6005, L100.0100, L501.4021, L300.4310, L500.4050 #### [facility] [address] [place], [address] WBC (Bld) [#/Vol] 9.4 10*3/uL Normal 4.4-11.0 [facility] Comment on above: Performed By: #### L 300.3900, M200.1000, L503.6005, L100.0100, L501.4021, L300.4310, L500.4050 #### [facility] [address] [place], [address] Carbon dioxide, total [Moles /volume] in Central venous bloodOrdered By: Gabino Madsen on 07-07-2025 CO2 [Moles/Vol] 29.8 mmol/L 21.0-32.0 [facility] Chloride assayOrdered By: Ana Madsen on 07-07-2025 Chloride [Moles/Vol] 97 mmol/L Low 98-108 [facility] Comprehensive Metabolic Prof ilon 07-07-2025 Albumin [Mass/Vol] 3.5 g/dL Normal 3.4-4.8 [facility] Comment on above: Performed By: #### L 503.5510 #### [facility] [address] [place], [address] Albumin/Globulin [Mass ratio] 0.9 {ratio} Normal 0.9-2.4 [facility] Comment on above: Performed By: #### L 503.5510 #### [facility] [address] [place], [address] ALK PHOS 224 U/L High 35-104 [facility] Comment on above: Performed By: #### L 119.5510 #### [facility] [address] [place], [address] ALT [Catalytic activity/Vol] 36 U/L High <=34 [facility] Comment on above: Performed By: #### L [id number] #### [facility] [address] [place], [address] AST [Catalytic activity/Vol] 41 U/L High <=31 [facility] Comment on above: Performed By: #### L 503.5510 #### [facility] [address] [place], [address] Bilirubin [Mass/Vol] 0.19 mg/dL Normal 0.00-1.30 [facility] Comment on above: Performed By: #### L 5035510 #### [facility] [address] [place], [address] BUN/CRE 11.7 RATIO Normal 10-20 [facility] Comment on above: Performed By: #### L 503.0010 #### [facility] [address] [place], [address] Calcium [Mass/Vol] 9.0 mg/dL Normal 7.6-11.0 [facility] Comment on above: Performed By: #### L 348.5510 #### [facility] [address] [place], [address] Chloride [Moles/Vol] 97 mmol/L Low 98-108 [facility] Comment on above: Performed By: #### L 922.9810 #### [facility] [address] [place], [address] CO2 [Moles/Vol] 29.8 mmol/L Normal 21.0-32.0 [facility] Comment on above: Performed By: #### L 273.5210 #### [facility] [address] [place], [address] Creatinine [Mass/Vol] 0.53 mg/dL Low 0.70-1.20 [facility] Comment on above: Performed By: #### L 503.5510 #### [facility] [address] [place], [address] GAP 11 Normal 5-15 [facility] Comment on above: Performed By: #### L 503.5510 #### [facility] [address] [place], [address] GFR/1.73 sq M.predicted among non-blacks MDRD (S/P/Bld) [Vol rate/Area] 105 mL/min/{1.73_m2} Normal >60 [facility] Comment on above: Result Comment: mL/m in/1.73m2 CKD-EPI Creatinine Equation (2020) Performed By: #### L 503.5510 #### [facility] [address] [place], [address] Globulin (S) [Mass/Vol] 4.1 g/dL Normal 2.2-4.2 [facility] Comment on above: Performed By: #### L 503.5510 #### [facility] [address] [place], [address] Glucose [Mass/Vol] 103 mg/dL High 70-99 [facility] Comment on above: Performed By: #### L 503.5510 #### [facility] [address] [place], [address] Potassium [Moles/Vol] 3.6 mmol/L Normal 3.3-5.1 [facility] Comment on above: Performed By: #### L 503.5510 #### [facility] [address] [place], [address] Sodium [Moles/Vol] 138 mmol/L Normal 133-145 [facility] Comment on above: Performed By: #### L 503.5510 #### [facility] [address] [place], [address] T PROT 7.6 g/dL Normal 5.9-8.4 [facility] Comment on above: Performed By: #### L 503.5510 #### [facility] [address] [place], [address] Urea nitrogen [Mass/Vol] 6 mg/dL Normal 4-19 [facility] Comment on above: Performed By: #### L 503.5510 #### [facility] [address] [place], [address] Eosinophil percentageOrdered By: Gabino Madsen on 07-07-2025 Eosinophils/100 WBC (Bld) 1.8 % 0-5 [facility] Erythrocyte Sed Rateon 07-07 SED RATE 78 mm/hr High 0-30 [facility] Comment on above: Performed By: #### L 300.3900, M200.1000, L503.6005, L100.0100, L501.4021, L300.4310, L500.4050 #### [facility] [address] [place], [place], [address] Erythrocyte distribution wid th ratioOrdered By: Gabino Madsen on 07-07-2025 Erythrocyte distribution width (RBC) [Ratio] 17.2 % High 11.6-14.6 [facility] Erythrocyte distribution wid th standard deviationOrdered By: Gabino Madsen on 07-07-2025 Erythrocyte distribution width (RBC) [Ratio] 54.6 fl High 35.1-43.9 [facility] Erythrocyte sedimentation ra teOrdered By: Gabino Madsen on 07-07-2025 ESR (Bld) [Velocity] 78 mm/h High 0-30 [facility] Ferritinon 07-07-2025 Ferritin [Mass/Vol] 19 ng/mL Low 22-378 [facility] Comment on above: Performed By: #### L 300.3900, M200.1000, L503.6005, L100.0100, L501.4021, L300.4310, L500.4050 #### [facility] [address] [facility] [place], [address] Glomerular filtration rate ( GFR) estimation/1.73 sq m using serum, plasma, or whole bOrdered By: Gabino Madsen on 07-07-2025 GFR/1.73 sq M.predicted among non-blacks MDRD (S/P/Bld) [Vol rate/Area] 105 mL/min/{1.73_m2} >60 [facility] Comment on above: mL/min/1.73m2 CKD-EP I Creatinine Equation (2020) Hematocrit Auto (Bld) [Volum e fraction]Ordered By: Gabino Madsen on 07-07-2025 Hematocrit (Bld) [Volume fraction] 30.8 % Low 37-47 [facility] Hemoglobin measurementOrdere d By: Gabino Madsen on 07-07-2025 Hemoglobin (Bld) [Mass/Vol] 9.6 g/dL Low 12.0-15.0 [facility] Immature granulocytes/100 WB C Auto (Bld)Ordered By: [facility] on 07-07-2025 Immature granulocytes/100 WBC (Bld) 0.300 % 0.0-0.9 [facility] Comment on above: IG% - Immature Granu locytes (promyelocytes, myelocytes and metamyelocytes) > 1% indicates that a LEFT SHIFT is Present. Iron measurement (mass/mass) Ordered By: Gabino Madsen on 07-07-2025 Iron (Unsp spec) [Mass/Mass] 19 ug/dL Low 50-170 [facility] Iron+Iron Binding Capacityon 07-07-2025 Iron [Mass/Vol] 19 ug/dL Low 50-170 [facility] Comment on above: Performed By: #### L 503.5510 #### [facility] [address] [place], [address] IRON SATURATION 5.7 Low 13-59 [facility] Comment on above: Performed By: #### L 503.5510 #### [facility] [address] [place], [address] TIBC 332 ug/dL Normal 250-450 [facility] Comment on above: Performed By: #### L 503.5510 #### [facility] [address] [place], [address] UIBC 313 ug/dL Normal 228-428 [facility] Comment on above: Performed By: #### L 503.5510 #### [facility] [address] [place], [address] LDHon 07-07-2025 LDH 180 U/L Normal 84-246 [facility] Comment on above: Order Comment: 1 Performed By: #### L 300.3900, M200.1000, L503.6005, L100.0100, L501.4021, L300.4310, L500.4050 #### [facility] [address] [place], [place], [address] Laboratory - Chemistry and C hemistry - challengeOrdered By: Gabino Madsen on 07-07-2025 AST [Catalytic activity/Vol] 41 U/L High <32 [facility] Lactate dehydrogenase (LDH) measurementOrdered By: Gabino Madsen on 07-07-2025 LDH [Catalytic activity/Vol] 180 U/L 84-246 [facility] MCV (mean corpuscular volume ) determinationOrdered By: Gabino Madsen on 07-07-2025 MCV (RBC) [Entitic vol] 86.8 fL 81-99 [facility] Magnesiumon 07-07-2025 Magnesium [Mass/Vol] 1.6 mg/dL Normal 1.5-2.2 [facility] Comment on above: Performed By: #### L 503.5510 #### [facility] [address] [place], [address] Magnesium measurement (mass/ volume)Ordered By: Gabino Madsen on 07-07-2025 Magnesium (Unsp spec) [Mass/Vol] 1.6 mg/dL 1.5-2.2 [facility] Mean corpuscular hemoglobin (MCH) determinationOrdered By: Gabino Madsen on 07-07-2025 MCH (RBC) [Entitic mass] 27.0 pg 27.0-32.0 [facility] Mean corpuscular hemoglobin concentration (MCHC) determinationOrdered By: Gabino Madsen on 07-07-2025 MCHC (RBC) [Mass/Vol] 31.2 g/dL Low 32-36 [facility] Mean platelet volume determi nationOrdered By: Gabino Madsen on 07-07-2025 Platelet mean volume (Bld) [Entitic vol] 9.9 fL 6.2-12.0 [facility] Monocyte percentageOrdered B y: Gabino Madsen on 07-07-2025 Monocytes/100 WBC (Bld) 7.4 % 0-10 [facility] Neutrophil percentageOrdered By: Gabino Madsen on 07-07-2025 Neutrophils/100 WBC (Bld) 64.0 % 47-70 [facility] No Panel InformationOrdered By: Gabino Madsen on 07-07-2025 Unsaturated Iron Binding Capacity 313 ug/dL 228-428 [facility] Nucleated red blood cell per centageOrdered By: Gabino Madsen on 07-07-2025 Nucleated RBC/100 WBC (Bld) [Ratio] 0 % 0-5 [facility] Oncology Visit Reporton 06-23 Oncology Visit Report [facility] [address] [place], [place] [address] [address] OFFICE VISIT Date of Service: 07/07/25 1554 MR#: [id number] Acct: [id number] Name: THOAISHA Emma Rep #: [id number] : 1965 From: Gabino Madsen MD Age/Sex: 60/F Location: [facility] Status: Signed HPI Subjective Date [...] She has COPD and requires home oxygen. [facility] Medical History Anemia Cirrhosis MRSA (methicillin resistant [...] (Verified 06/23 (more content not included)... Normal [facility] Phosphoruson 07-07-2025 Phosphate [Mass/Vol] 3.3 mg/dL Normal 2.7-4.5 [facility] Comment on above: Performed By: #### L 300.3900, M200.1000, L503.6005, L100.0100, L501.4021, L300.4310, L500.4050 #### [facility] [address] [place], [address] Platelet countOrdered By: Ana Madsen on 07-07-2025 Platelets (Bld) [#/Vol] 208 10*3/uL 150-450 [facility] Potassium measurement (mass/ volume)Ordered By: Gabino Madsen on 07-07-2025 Potassium (Unsp spec) [Mass/Vol] 3.6 mmol/L 3.3-5.1 [facility] RBC Auto (Bld) [#/Vol]Ordere d By: Gabino Madsen on 07-07-2025 RBC (Bld) [#/Vol] 3.55 10*6/uL Low 4.2-5.4 [facility] Serum creatinine measurement (mass/volume)Ordered By: Gabino Madsen on 07-07-2025 Creatinine [Mass/Vol] 0.53 mg/dL Low 0.70-1.20 [facility] Serum globulin measurementOr dered By: Gabino Madsen on 07-07-2025 Globulin (S) [Mass/Vol] 4.1 g/dL 2.2-4.2 [facility] Serum glucose measurement (m ass/volume)Ordered By: Gabino Madsen on 07-07-2025 Glucose [Mass/Vol] 103 mg/dL High 70-99 [facility] Serum or plasma alanine yoder otransferase (ALT) measurementOrdered By: Gabino Madsen on 07-07-2025 ALT [Catalytic activity/Vol] 36 U/L High <35 [facility] Serum or plasma albumin ceasar urement (mass/volume)Ordered By: Gabino Madsen on 07-07-2025 Albumin [Mass/Vol] 3.5 g/dL 3.4-4.8 [facility] Serum or plasma albumin/glob ulin mass ratioOrdered By: Gabino Madsen on 07-07-2025 Albumin/Globulin [Mass ratio] 0.9 {ratio} 0.9-2.4 [facility] Serum or plasma alkaline letty sphatase measurementOrdered By: Gabino Madsen on 07-07-2025 ALP [Catalytic activity/Vol] 224 U/L High 35-104 [facility] Serum or plasma calcium ceasar urement (mass/volume)Ordered By: Gabino Madsen on 07-07-2025 Calcium [Mass/Vol] 9.0 mg/dL 7.6-11.0 [facility] Serum or plasma ferritin misael surement (mass/volume)Ordered By: Gabino Madsen on 07-07-2025 Ferritin [Mass/Vol] 19 ng/mL Low 22-378 [facility] Serum or plasma iron saturat ion measurement (mass fraction)Ordered By: Gabino Madsen on 07-07-2025 Iron saturation [Mass fraction] 5.7 % Low 13-59 [facility] Serum or plasma urea nitroge n measurement (mass/volume)Ordered By: Gabino Madsen on 07-07-2025 Urea nitrogen [Mass/Vol] 6 mg/dL 4-19 [facility] Sodium levelOrdered By: Khurram Madsen on 07-07-2025 Sodium [Moles/Vol] 138 mmol/L 133-145 [facility] Total proteinOrdered By: Raphael Madsen on 07-07-2025 Protein [Mass/Vol] 7.6 g/dL 5.9-8.4 [facility] Vitamin B12on 07-07-2025 Cobalamin (Vitamin B12) [Mass/Vol] 1181 pg/mL High 180-914 [facility] Comment on above: Performed By: #### L 503.5510 #### [facility] [address] [place], [address] Vitamin B12 ser/plasOrdered By: Gabino Madsen on 07-07-2025 Cobalamin (Vitamin B12) [Mass/Vol] 1181 pg/mL High 180-914 [facility] White blood cell (WBC) count Ordered By: Gabino Madsen on 07-07-2025 WBC (Bld) [#/Vol] 9.4 10*3/uL 4.4-11.0 [facility] 36on 06-30-2025 36 Reviewed chart. Refi ll appropriate. RX sent. [facility] 36 Prescription Request : ONDANSETRON HCL 4 MG TABLET Last medication check: 03/04/25 Last physical exam: none Next scheduled appointment: 09/10/25 Last date of refill on this medication 05/29/24 ( qty 180 refill 1) [facility] 36on 06-26-2025 36 Prescription Request : VITAMIN D2 1.25MG(50,000 UNIT) Last medication check: 03/04/25 Last physical exam: 06/13/24 Next scheduled appointment: 09/10/25 Last date of refill on this medication 01/13/25 ( qty 12 refill 1) [facility] 36on 05-26-2025 36 Rx sent. Follow up a s scheduled. [facility] 36 Medication name: potassium chloride CR (Klor-Con [...] medication tab): 04/07/2025 Updated/Validated preferred pharmacy: Yes [facility]/pharmacy #[id number] - [place], [place] - [address] [place] [address] Patient instructed to contact the pharmacy prior to picking up the medication: no [place] [address]on 05-23-2025 36 Rx sent. Follow up a s scheduled. [facility] 36 Rx sent. Follow up a s scheduled. [facility] PETR + Protein Elect, Serumon 05-22-2025 Albumin [Mass/Vol] 3.2 g/dL Normal 2.9-4.4 [facility] Comment on above: Order Comment: N Performed By: #### L 300.3900, M200.1000, L503.6005, L100.0100, L501.4021, L300.4310, L500.4050 #### [facility] [address] [place], [place], [id number] Albumin/Globulin [Mass ratio] 0.8 {ratio} Normal 0.7-1.7 [facility] Comment on above: Order Comment: N Performed By: #### L 300.3900, M200.1000, L503.6005, L100.0100, L501.4021, L300.4310, L500.4050 #### [facility] [address] [place], [address] [id number]-[id number] 0.3 g/dL Normal 0.0-0.4 [facility] Comment on above: Order Comment: N Performed By: #### L 300.3900, M200.1000, L503.6005, L100.0100, L501.4021, L300.4310, L500.4050 #### [facility] [address] [place], [address] XHDUK-[id number] 0.8 g/dL Normal 0.4-1.0 [facility] Comment on above: Order Comment: N Performed By: #### L 300.3900, M200.1000, L503.6005, L100.0100, L501.4021, L300.4310, L500.4050 #### [facility] [address] [place], [address] BETA GLOBULIN 1.1 g/dL Normal 0.7-1.3 [facility] Comment on above: Order Comment: N Performed By: #### L 300.3900, M200.1000, L503.6005, L100.0100, L501.4021, L300.4310, L500.4050 #### [facility] [address] [place], [address] GAMMA GLOBULIN 2.2 g/dL High 0.4-1.8 [facility] Comment on above: Order Comment: N Performed By: #### L 300.3900, M200.1000, L503.6005, L100.0100, L501.4021, L300.4310, L500.4050 #### [facility] [address] [place], [address] Globulin (S) [Mass/Vol] 4.4 g/dL Abnormal 2.2-3.9 [facility] Comment on above: Order Comment: N Performed By: #### L 300.3900, M200.1000, L503.6005, L100.0100, L501.4021, L300.4310, L500.4050 #### [facility] [address] [place], [address] PETR RESULT,S Comment: Normal . [facility] Comment on above: Order Comment: N Result Comment: Pres ence of monoclonal protein is unclear at this time. Suggest repeat in 3 to 6 months if clinically indicated. Performed By: #### L 300.3900, M200.1000, L503.6005, L100.0100, L501.4021, L300.4310, L500.4050 #### [facility] [address] [place], [address] IMMUNOGLOB A QN 184 mg/dL Normal 87-352 [facility] Comment on above: Order Comment: N Performed By: #### L 300.3900, M200.1000, L503.6005, L100.0100, L501.4021, L300.4310, L500.4050 #### [facility] [address] [place], [address] IMMUNOGLOB G QN 1863 mg/dL High 586-1602 [facility] Comment on above: Order Comment: N Performed By: #### L 300.3900, M200.1000, L503.6005, L100.0100, L501.4021, L300.4310, L500.4050 #### [facility] [address] [place], [address] IMMUNOGLOB M QN 763 mg/dL High 26-217 [facility] Comment on above: Order Comment: N Result Comment: Resu lts confirmed on dilution. Performed By: #### L 300.3900, M200.1000, L503.6005, L100.0100, L501.4021, L300.4310, L500.4050 #### [facility] [address] [place], [address] M-Fabricio Not Observed Normal Not Observed [facility] Comment on above: Order Comment: N Performed By: #### L 300.3900, M200.1000, L503.6005, L100.0100, L501.4021, L300.4310, L500.4050 #### [facility] [address] [place], [address] NOTE: Comment Normal . [facility] Comment on above: Order Comment: N Result Comment: Prot ein electrophoresis scan will follow via computer, mail, or in class special education teacher delivery. Performed By: #### L 300.3900, M200.1000, L503.6005, L100.0100, L501.4021, L300.4310, L500.4050 #### [facility] [address] [place], [address] Protein [Mass/Vol] 7.6 g/dL Normal 6.0-8.5 [facility] Comment on above: Order Comment: N Performed By: #### L 300.3900, M200.1000, L503.6005, L100.0100, L501.4021, L300.4310, L500.4050 #### [facility] [address] [place], [address] Transferrinon 05-22-2025 Transferrin [Mass/Vol] 348 mg/dL Normal 192-364 [facility] Comment on above: Result Comment: Perf ormed at: - [facility] [address] [id number] Comb Setter: Mariano Cheatham PhD, Phone: [phone] Performed By: #### L 300.3900, M200.1000, L503.6005, L100.0100, L501.4021, L300.4310, L500.4050 #### [facility] [address] [place], [address] Absolute lymphocyte countOrd ered By: Cal Bahena on 07-29-2025 Lymphocytes Auto (Unsp spec) [#/Vol] 2.34 10*3/uL 0.83-4.51 [facility] Absolute neutrophil countOrd ered By: Cal Bahena on 05-20-2025 Neutrophils (Bld) [#/Vol] 2.9 10*3/uL 2.0-7.7 [facility] Albumin Elph [Mass/Vol]Order ed By: Cal Bahena on 05-20-2025 Albumin [Mass/Vol] 3.2 g/dL 2.9-4.4 [facility] Automated lymphocyte count a s percentage of total leukocytesOrdered By: Cal Bahena on 05-20-2025 Lymphocytes/100 WBC Auto (Unsp spec) 39.3 % 19-41 [facility] Basophil percentageOrdered B y: Cal Bahena on 05-20-2025 Basophils/100 WBC (Bld) 0.7 % 0-1 [facility] CBC W/Diff, Automatedon 04-23 Absolute Lymph 2.34 X10 3/uL Normal 0.83-4.51 [facility] Comment on above: Performed By: #### L 300.3900, M200.1000, L503.6005, L100.0100, L501.4021, L300.4310, L500.4050 #### [facility] [address] [place], [address] Absolute Neut 2.9 X10 3/uL Normal 2.0-7.7 [facility] Comment on above: Performed By: #### L 300.3900, M200.1000, L503.6005, L100.0100, L501.4021, L300.4310, L500.4050 #### [facility] [address] [place], [address] Basophils/100 WBC (Bld) 0.7 % Normal 0-1 [facility] Comment on above: Performed By: #### L 300.3900, M200.1000, L503.6005, L100.0100, L501.4021, L300.4310, L500.4050 #### [facility] [address] [place], [address] Eosinophils/100 WBC (Bld) 2.9 % Normal 0-5 [facility] Comment on above: Performed By: #### L 300.3900, M200.1000, L503.6005, L100.0100, L501.4021, L300.4310, L500.4050 #### [facility] [address] [place], [address] Erythrocyte distribution width (RBC) [Ratio] 21.2 % High 11.6-14.6 [facility] Comment on above: Performed By: #### L 300.3900, M200.1000, L503.6005, L100.0100, L501.4021, L300.4310, L500.4050 #### [facility] [address] [place], [address] Hematocrit (Bld) [Volume fraction] 32.3 % Low 37-47 [facility] Comment on above: Performed By: #### L 300.3900, M200.1000, L503.6005, L100.0100, L501.4021, L300.4310, L500.4050 #### [facility] [address] [place], [address] Hemoglobin (Bld) [Mass/Vol] 10.1 g/dL Low 12.0-15.0 [facility] Comment on above: Performed By: #### L 300.3900, M200.1000, L503.6005, L100.0100, L501.4021, L300.4310, L500.4050 #### [facility] [address] [place], [address] IG% 0.300 Normal 0.0-0.9 [facility] Comment on above: Result Comment: IG% - Immature Granulocytes (promyelocytes, myelocytes and metamyelocytes) > 1% indicates that a LEFT SHIFT is Present. Performed By: #### L 300.3900, M200.1000, L503.6005, L100.0100, L501.4021, L300.4310, L500.4050 #### [facility] [address] [place], [address] Lymphocytes/100 WBC (Bld) 39.3 % Normal 19-41 [facility] Comment on above: Performed By: #### L 300.3900, M200.1000, L503.6005, L100.0100, L501.4021, L300.4310, L500.4050 #### [facility] [address] [place], [address] MCH (RBC) [Entitic mass] 26.3 pg Low 27.0-32.0 [facility] Comment on above: Performed By: #### L 300.3900, M200.1000, L503.6005, L100.0100, L501.4021, L300.4310, L500.4050 #### [facility] [address] [place], [address] MCHC (RBC) [Mass/Vol] 31.3 g/dL Low 32-36 [facility] Comment on above: Performed By: #### L 300.3900, M200.1000, L503.6005, L100.0100, L501.4021, L300.4310, L500.4050 #### [facility] [address] [place], [address] MCV (RBC) [Entitic vol] 84.1 fL Normal 81-99 [facility] Comment on above: Performed By: #### L 300.3900, M200.1000, L503.6005, L100.0100, L501.4021, L300.4310, L500.4050 #### [facility] [address] [place], [address] Monocytes/100 WBC (Bld) 7.7 % Normal 0-10 [facility] Comment on above: Performed By: #### L 300.3900, M200.1000, L503.6005, L100.0100, L501.4021, L300.4310, L500.4050 #### [facility] [address] [place], [address] Neutrophils/100 WBC (Bld) 49.1 % Normal 47-70 [facility] Comment on above: Performed By: #### L 300.3900, M200.1000, L503.6005, L100.0100, L501.4021, L300.4310, L500.4050 #### [facility] [address] [place], [address] Nucleated RBC (Bld) [#/Vol] 0 10*3/uL Normal 0-5 [facility] Comment on above: Performed By: #### L 300.3900, M200.1000, L503.6005, L100.0100, L501.4021, L300.4310, L500.4050 #### [facility] [address] [place], [address] Platelet mean volume (Bld) [Entitic vol] 9.5 fL Normal 6.2-12.0 [facility] Comment on above: Performed By: #### L 300.3900, M200.1000, L503.6005, L100.0100, L501.4021, L300.4310, L500.4050 #### [facility] [address] [place], [address] Platelets (Bld) [#/Vol] 209 10*3/uL Normal 150-450 [facility] Comment on above: Performed By: #### L 300.3900, M200.1000, L503.6005, L100.0100, L501.4021, L300.4310, L500.4050 #### [facility] [address] [place], [address] RBC (Bld) [#/Vol] 3.84 10*6/uL Low 4.2-5.4 [facility] Comment on above: Performed By: #### L 300.3900, M200.1000, L503.6005, L100.0100, L501.4021, L300.4310, L500.4050 #### [facility] [address] [place], [address] RDW SD 65.2 fl High 35.1-43.9 [facility] Comment on above: Performed By: #### L 300.3900, M200.1000, L503.6005, L100.0100, L501.4021, L300.4310, L500.4050 #### [facility] [address] [place], [address] WBC (Bld) [#/Vol] 6.0 10*3/uL Normal 4.4-11.0 [facility] Comment on above: Performed By: #### L 300.3900, M200.1000, L503.6005, L100.0100, L501.4021, L300.4310, L500.4050 #### [facility] [address] [place], [address] Eosinophil percentageOrdered By: Cal Friend on 05-20-2025 Eosinophils/100 WBC (Bld) 2.9 % 0-5 [facility] Erythrocyte distribution wid th ratioOrdered By: Cal Friend on 05-20-2025 Erythrocyte distribution width (RBC) [Ratio] 21.2 % High 11.6-14.6 [facility] Erythrocyte distribution wid th standard deviationOrdered By: Cal Friend on 05-20-2025 Erythrocyte distribution width (RBC) [Ratio] 65.2 fl High 35.1-43.9 [facility] Ferritinon 05-20-2025 Ferritin [Mass/Vol] 17 ng/mL Low 22-378 [facility] Comment on above: Performed By: #### L 300.3900, M200.1000, L503.6005, L100.0100, L501.4021, L300.4310, L500.4050 #### [facility] [address] [place], [address] Gastroenterology Visit Repor ton 05-20-2025 Gastroenterology Visit Report [facility] [address] [place] [address] OFFICE VISIT Date of Service: 05/20/25 MR#: [id number] Acct: [id number] Name: AISHA HA Emma Rep #: [id number] : 1965 Provider: Cal Bahena DO Age/Sex: 60/F Location: [place] Status: Signed Intake Vital Signs 03/25/25 12:15 [...] BID 8 weeks #112 tabs 05/20/25 Rx [facility] Medical History (Updated 05/20/25 @ 17:46 by [...] Seizures Na (more content not included)... Normal [facility] Hematocrit Auto (Bld) [Volum e fraction]Ordered By: Cal Bahena on 05-20-2025 Hematocrit (Bld) [Volume fraction] 32.3 % Low 37-47 [facility] Hemoglobin measurementOrdere d By: Cal Bahena on 05-20-2025 Hemoglobin (Bld) [Mass/Vol] 10.1 g/dL Low 12.0-15.0 [facility] Immature granulocytes/100 WB C Auto (Bld)Ordered By: Cal Bahena on 05-20-2025 Immature granulocytes/100 WBC (Bld) 0.300 % 0.0-0.9 [facility] Comment on above: IG% - Immature Granu locytes (promyelocytes, myelocytes and metamyelocytes) > 1% indicates that a LEFT SHIFT is Present. Interpretation of serum or p lasma protein pattern by immunofixation (narrative resultOrdered By: Cal Bahena on 05-20-2025 Protein Fractions Immunofixation Neal [Interp] Not Observed g/dL Not Observed [facility] Ironon 05-20-2025 Iron [Mass/Vol] 26 ug/dL Low 50-170 [facility] Comment on above: Performed By: #### L 300.3900, M200.1000, L503.6005, L100.0100, L501.4021, L300.4310, L500.4050 #### [facility] [address] [place], [address] Iron measurement (mass/mass) Ordered By: Cal Bahena on 05-20-2025 Iron (Unsp spec) [Mass/Mass] 26 ug/dL Low 50-170 [facility] LDHon 05-20-2025 LDH 244 U/L Normal 84-246 [facility] Comment on above: Order Comment: 1 Performed By: #### L 300.3900, M200.1000, L503.6005, L100.0100, L501.4021, L300.4310, L500.4050 #### [facility] [address] [place], [address] Laboratory - Hematology and Cell countsOrdered By: Cal Bahena on 05-20-2025 Anisocytosis Ql (Bld) 1+ [facility] Lactate dehydrogenase (LDH) measurementOrdered By: Cal Bahena on 05-20-2025 LDH [Catalytic activity/Vol] 244 U/L 84-246 [facility] MCV (mean corpuscular volume ) determinationOrdered By: Cal Bahena on 05-20-2025 MCV (RBC) [Entitic vol] 84.1 fL 81-99 [facility] Mean corpuscular hemoglobin (MCH) determinationOrdered By: Cal Bahena on 05-20-2025 MCH (RBC) [Entitic mass] 26.3 pg Low 27.0-32.0 [facility] Mean corpuscular hemoglobin concentration (MCHC) determinationOrdered By: Cal Bahena on 05-20-2025 MCHC (RBC) [Mass/Vol] 31.3 g/dL Low 32-36 [facility] Mean platelet volume determi nationOrdered By: Cal Bahena on 05-20-2025 Platelet mean volume (Bld) [Entitic vol] 9.5 fL 6.2-12.0 [facility] Monocyte percentageOrdered B y: Cal Bahena on 05-20-2025 Monocytes/100 WBC (Bld) 7.7 % 0-10 [facility] Neutrophil percentageOrdered By: Cal Bahena on 05-20-2025 Neutrophils/100 WBC (Bld) 49.1 % 47-70 [facility] No Panel InformationOrdered By: Cal Bahena on 05-20-2025 Addendum Document Comment . [facility] Comment on above: Protein electrophore sis scan will follow via computer,mail, or in class special education teacher delivery. Nucleated red blood cell per centageOrdered By: Cal Bahena on 05-20-2025 Nucleated RBC/100 WBC (Bld) [Ratio] 0 % 0-5 [facility] Platelet countOrdered By: Ra joni Bahena on 05-20-2025 Platelets (Bld) [#/Vol] 209 10*3/uL 150-450 [facility] Platelet estimateOrdered By: Cal Bahena on 05-20-2025 Platelets LM Ql (Bld) A ADEQ [facility] RBC Auto (Bld) [#/Vol]Ordere d By: Cal Bahena on 05-20-2025 RBC (Bld) [#/Vol] 3.84 10*6/uL Low 4.2-5.4 [facility] Retic Panelon 05-20-2025 IM RET FRACTION 16.30 High 3.00-15.90 [facility] Comment on above: Performed By: #### L 300.3900, M200.1000, L503.6005, L100.0100, L501.4021, L300.4310, L500.4050 #### [facility] [address] [place], [place], [id number] RET-HE 25.4 pg Low 30- [facility] Comment on above: Performed By: #### L 300.3900, M200.1000, L503.6005, L100.0100, L501.4021, L300.4310, L500.4050 #### [facility] [address] [place], [place], [id number] Retic Count 1.02 Normal 0.5-1.5 [facility] Comment on above: Performed By: #### L 300.3900, M200.1000, L503.6005, L100.0100, L501.4021, L300.4310, L500.4050 #### [facility] [address] [place], [place], [id number] Reticulocyte hemoglobin equi valent (RET-He) measurementOrdered By: Calmelissa Bahena on 05-20-2025 Hemoglobin (Reticulocytes) [Entitic mass] 25.4 pg Low 30-35 [facility] Reticulocytes Auto (Bld) [#/ Vol]Ordered By: Calmelissa Bahena on 05-20-2025 Reticulocytes/100 RBC (Bld) 1.02 % 0.5-1.5 [facility] Serum globulin measurement ( mass/volume)Ordered By: Calmelissa Bahena on 05-20-2025 Globulin (S) [Mass/Vol] 4.4 g/dL High 2.2-3.9 [facility] Serum or plasma IgA measurem ent (mass/volume)Ordered By: Cal Bahena on 05-20-2025 IgA [Mass/Vol] 184 mg/dL 87-352 [facility] Serum or plasma IgG measurem ent (mass/volume)Ordered By: Cal Bahena on 05-20-2025 IgG [Mass/Vol] 1863 mg/dL High 586-1602 [facility] Serum or plasma alpha 1 glob ulin measurement by electrophoresis (mass/volume)Ordered By: Cal Bahena on 05-20-2025 Alpha 1 globulin Elph [Mass/Vol] 0.3 g/dL 0.0-0.4 [facility] Alpha 1 globulin Elph [Mass/Vol] 0.8 g/dL 0.4-1.0 [facility] Serum or plasma beta globuli n measurement by electrophoresis (mass/volume)Ordered By: Cal Bahena on 05-20-2025 Beta globulin Elph [Mass/Vol] 1.1 g/dL 0.7-1.3 [facility] Serum or plasma ferritin misael surement (mass/volume)Ordered By: Cal Bahena on 05-20-2025 Ferritin [Mass/Vol] 17 ng/mL Low 22-378 [facility] Serum or plasma gamma globul in measurement by electrophoresis (mass/volume)Ordered By: Cal Bahena on 05-20-2025 Gamma globulin Elph [Mass/Vol] 2.2 g/dL High 0.4-1.8 [facility] Serum or plasma immunoelectr ophoresis interpretation (nominal result)Ordered By: Cal Bahena on 05-20-2025 Interpretation IEP [Interp] Comment: . [facility] Comment on above: Presence of monoclon al protein is unclear at this time. Suggestrepeat in 3 to 6 months if clinically indicated. Serum or plasma protein ceasar urement (mass/volume)Ordered By: Cal Bahena on 05-20-2025 Protein [Mass/Vol] 7.6 g/dL 6.0-8.5 [facility] TransferrinOrdered By: Aayush Bahena on 05-20-2025 Transferrin [Mass/Vol] 348 mg/dL 192-364 [facility] Comment on above: Performed at: [facility] [address] [id number] Director: Mariano Cheatham PhD, Phone: [phone] White blood cell (WBC) count Ordered By: Cal Friend on 05-20-2025 WBC (Bld) [#/Vol] 6.0 10*3/uL 4.4-11.0 [facility] 36on 05-07-2025 36 Okay, thank you [facility] 36 S: Patient spoke wit h [facility] nurse regarding nasal congestion B: Onset of [...] Severe headache Protocols used: Sinus Pain or [id number] [facility] ED Nursing Noteon 05-07-2025 ED Nursing Note Patient to room 3 wi th c/o sinus pain for the last 4 days. Patient reports she gets this a couple times a year. V/S obtained, call light within reach. [facility] ED Provider Noteon ED Provider Note EMERGENCY [...] mouth daily. ERGOCALCIFEROL (VITAMIN D2) 1.25 MG (60773 UT) CAPSULE TAKE 1 CAPSULE BY MOUTH [...] hours as needed (wheezing, cough,). NYSTATIN (MYCOSTATIN) 735024 UNIT/ML SUSPENSION Take 5 mL (500,000 Units) [...] presented with chief (more content not included)... [address] 04-25-2025 36 Reviewed chart. Refi ll appropriate. RX sent. [place] [address] Reviewed chart. Refi ll appropriate. RX sent. [address] 04-14-2025 36 Prescription Request : METOPROLOL SUCC ER 25 MG TAB Last medication check: 03/04/25 Last physical exam: 06/13/24 Next scheduled appointment: 09/10/25 Last date of refill on this medication 10/28/24 ( qty 90 refill 1) [address] 04-10-2025 [address] [facility] 36 Rx for spacer sent t o the pharmacy, she needs to make sure she is rinsing her mouth out really well after she uses Symbicort. [address] 04-09-2025 36 Name of caller: Rebekah Contact phone number: [phone] Relationship to Patient: Direction Home Provider: Victor [...] business hours to return their call: No [facility] 36on 04-07-2025 36 Returned call per request. Reviewed medications with her daughter and she states she was discharged on Lasix 20 mg twice a day and potassium 20 mEq once daily. Medication list updated to reflect current dosing of medications. [facility] 36 Name of caller: Russell Long Contact phone number: [phone] Relationship to Patient: family member patient and [...] business hours to return their call: Yes [facility] Office Visiton 04-07-2025 Follow-up visit [id number] Aisha Ha 1965 F Date Provider Department Center 04/07/2025 [id number] GONZALES [facility] [place], [place] Family History Problem Relation Age of Onset Heart attack Mother Arthritis Mother High Blood Pressure Mother Depression Mother Cervical cancer Mother 30 Substance Abuse Father Arthritis Father High Blood Pressure Father Diabetes Father Family Status - Relation Status Age at Mother Father Level of Service:18002 CA TRANSJ CARE MGMT MOD MDM F2F 14 CIARA D DISCHARGE Reason for Visit and Comments: Hospital Follow-up [832] - [facility]- Resp. Failure, PNA, Hypokalemia, Hypomagnesia. States not feeling very well today [facility] Progress Noteon 04-07-2025 Progress Note [address] [id number] Post-Discharge Transitional Care Follow Up Date of [...] chronic respiratory failure with hypoxia [place] [facility] [place] - Chronic, stable - Currently wearing [...] States she does not follow-up with a mule spinner - Ammonia level stable while hospitalized - Will check liver enzymes today with blood work 7. Dependence on continuous supplemental oxygen - [facility] [place] - Oxygen level stable on 3 L via nasal cannula - Will have her consult with pulmonology for ongoing management 8. Chronic obstructive pulmonary disease, unspecified COPD type (HCC) [place] [facility] [place]ulmon[place] - Chronic, stable - Incruse Ellipta as prescribed - Continuous oxygen as directed Medical Decision Making moderate Follow up in 5 months (on 09/10/2025) for Next scheduled follow-up or sooner if needed. Linda Gonzales APRN - KEMAR 04/07/25 10:04 AM MARYANNE Izaguirre presents today for a hospital discharge follow-up from [facility] from 03/20/2025 through 03/25/2025. She presented to [...] States she does not follow-up with a enrollment manager currently. Inpatient course: Discharge summary reviewed Interval History Admitted on 03/20/2025 and discharged on 03/25/2025 I have performed a medication reconciliation during this visit and have r (more content not included)... [facility] Progress Note Patient verified by last name and . [facility] 36on 03-28-2025 36 Noted. Will see as scheduled. [facility] 36 Called patient to schedule her EMMIE visit from the hospital stay at [facility] admitted 03-20-25 and discharged 03-25-25 Dx: Nausea Anemia Cirrhosis EMMIE Followup questions 1. Did you get medications filled and taking them as instructed from discharge? Yes 2. Are you following your discharge instructions from your hospital stay? Yes 3. Please confirm patient is scheduled for a follow up appointment within the above time frame. Patient is scheduled with Linda Gonzales on 04-07-25 Normal [facility] Basic Metabolic Profile (BMP )on 03-28-2025 BUN Normal 4-19 [facility] Comment on above: Result Comment: Canc elled via OM: Order cancelled - Patient discharged Performed By: #### L 300.3900, M200.1000, L503.6005, L100.0100, L501.4021, L300.4310, L500.4050 #### [facility] [address] [place], [address] BUN/CRE Normal 10-20 [facility] Comment on above: Result Comment: Canc elled via OM: Order cancelled - Patient discharged Performed By: #### L 300.3900, M200.1000, L503.6005, L100.0100, L501.4021, L300.4310, L500.4050 #### [facility] [address] [place], [address] Calcium Normal 7.6-11.0 [facility] Comment on above: Result Comment: Canc elled via OM: Order cancelled - Patient discharged Performed By: #### L 300.3900, M200.1000, L503.6005, L100.0100, L501.4021, L300.4310, L500.4050 #### [facility] [address] [place], [address] CL Normal 98-108 [facility] Comment on above: Result Comment: Canc elled via OM: Order cancelled - Patient discharged Performed By: #### L 300.3900, M200.1000, L503.6005, L100.0100, L501.4021, L300.4310, L500.4050 #### [facility] [address] [place], [address] CO2 Normal 21.0-32.0 [facility] Comment on above: Result Comment: Canc elled via OM: Order cancelled - Patient discharged Performed By: #### L 300.3900, M200.1000, L503.6005, L100.0100, L501.4021, L300.4310, L500.4050 #### [facility] [address] [place], [address] CREAT,SERUM Normal 0.70-1.20 [facility] Comment on above: Result Comment: Canc elled via OM: Order cancelled - Patient discharged Performed By: #### L 300.3900, M200.1000, L503.6005, L100.0100, L501.4021, L300.4310, L500.4050 #### [facility] [address] [place], [address] eGFR Normal >60 [facility] Comment on above: Result Comment: Canc elled via OM: Order cancelled - Patient discharged Performed By: #### L 300.3900, M200.1000, L503.6005, L100.0100, L501.4021, L300.4310, L500.4050 #### [facility] [address] [place], [address] GAP Normal 5-15 [facility] Comment on above: Result Comment: Canc elled via OM: Order cancelled - Patient discharged Performed By: #### L 300.3900, M200.1000, L503.6005, L100.0100, L501.4021, L300.4310, L500.4050 #### [facility] [address] [place], [address] GLU Normal 70-99 [facility] Comment on above: Result Comment: Canc elled via OM: Order cancelled - Patient discharged Performed By: #### L 300.3900, M200.1000, L503.6005, L100.0100, L501.4021, L300.4310, L500.4050 #### [facility] [address] [place], [address] Potassium Normal 3.3-5.1 [facility] Comment on above: Result Comment: Canc elled via OM: Order cancelled - Patient discharged Performed By: #### L 300.3900, M200.1000, L503.6005, L100.0100, L501.4021, L300.4310, L500.4050 #### [facility] [address] [place], [address] Basic Metabolic Profile (BMP) Normal 133-145 [facility] Comment on above: Result Comment: Canc elled via OM: Order cancelled - Patient discharged Performed By: #### L 300.3900, M200.1000, L503.6005, L100.0100, L501.4021, L300.4310, L500.4050 #### [facility] [address] [place], [address] CBC W/Diff, Automatedon 06-0 -2024 Absolute Neut Normal 2.0-7.7 [facility] Comment on above: Result Comment: Canc elled via OM: Order cancelled - Patient discharged Performed By: #### L 300.3900, M200.1000, L503.6005, L100.0100, L501.4021, L300.4310, L500.4050 #### [facility] [address] [place], [address] HCT Normal 37-47 [facility] Comment on above: Result Comment: Canc elled via OM: Order cancelled - Patient discharged Performed By: #### L 300.3900, M200.1000, L503.6005, L100.0100, L501.4021, L300.4310, L500.4050 #### [facility] [address] [place], [address] HGB Normal 12.0-15.0 [facility] Comment on above: Result Comment: Canc elled via OM: Order cancelled - Patient discharged Performed By: #### L 300.3900, M200.1000, L503.6005, L100.0100, L501.4021, L300.4310, L500.4050 #### [facility] [address] [place], [address] MCH Normal 27.0-32.0 [facility] Comment on above: Result Comment: Canc elled via OM: Order cancelled - Patient discharged Performed By: #### L 300.3900, M200.1000, L503.6005, L100.0100, L501.4021, L300.4310, L500.4050 #### [facility] [address] [place], [address] MCHC Normal 32-36 [facility] Comment on above: Result Comment: Canc elled via OM: Order cancelled - Patient discharged Performed By: #### L 300.3900, M200.1000, L503.6005, L100.0100, L501.4021, L300.4310, L500.4050 #### [facility] [address] [place], [address] MCV Normal 81-99 [facility] Comment on above: Result Comment: Canc elled via OM: Order cancelled - Patient discharged Performed By: #### L 300.3900, M200.1000, L503.6005, L100.0100, L501.4021, L300.4310, L500.4050 #### [facility] [address] [place], [address] NEUT% Normal 47-70 [facility] Comment on above: Result Comment: Canc elled via OM: Order cancelled - Patient discharged Performed By: #### L 300.3900, M200.1000, L503.6005, L100.0100, L501.4021, L300.4310, L500.4050 #### [facility] [address] [place], [address] PLT Normal 150-450 [facility] Comment on above: Result Comment: Canc elled via OM: Order cancelled - Patient discharged Performed By: #### L 300.3900, M200.1000, L503.6005, L100.0100, L501.4021, L300.4310, L500.4050 #### [facility] [address] [place], [address] RBC Normal 4.2-5.4 [facility] Comment on above: Result Comment: Canc elled via OM: Order cancelled - Patient discharged Performed By: #### L 300.3900, M200.1000, L503.6005, L100.0100, L501.4021, L300.4310, L500.4050 #### [facility] [address] [place], [address] RDW CV Normal 11.6-14.6 [facility] Comment on above: Result Comment: Canc elled via OM: Order cancelled - Patient discharged Performed By: #### L 300.3900, M200.1000, L503.6005, L100.0100, L501.4021, L300.4310, L500.4050 #### [facility] [address] [place], [address] RDW SD Normal 35.1-43.9 [facility] Comment on above: Result Comment: Canc elled via OM: Order cancelled - Patient discharged Performed By: #### L 300.3900, M200.1000, L503.6005, L100.0100, L501.4021, L300.4310, L500.4050 #### [facility] [address] [place], [address] WBC Normal 4.4-11.0 [facility] Comment on above: Result Comment: Canc elled via OM: Order cancelled - Patient discharged Performed By: #### L 300.3900, M200.1000, L503.6005, L100.0100, L501.4021, L300.4310, L500.4050 #### [facility] [address] [place], [place], [id number] 36on 03-27-2025 36 Name of Caller: Nuris [...] is going out of town, and her passenger coach driver being busy. Patient is requesting date sooner that 04/10/25 and 04/16/25. Please advise. Office Name: [facility] Medication Refills need, if any: n/a Medication Name: n/a Normal [facility] Basic Metabolic Profile (BMP )on 03-27-2025 BUN Normal 4-19 [facility] Comment on above: Result Comment: Canc elled via OM: Order cancelled - Patient discharged Performed By: #### L 300.3900, M200.1000, L503.6005, L100.0100, L501.4021, L300.4310, L500.4050 #### [facility] [address] [place], [place], [id number] BUN/CRE Normal 10-20 [facility] Comment on above: Result Comment: Canc elled via OM: Order cancelled - Patient discharged Performed By: #### L 300.3900, M200.1000, L503.6005, L100.0100, L501.4021, L300.4310, L500.4050 #### [facility] [address] [place], [place], [id number] Calcium Normal 7.6-11.0 [facility] Comment on above: Result Comment: Canc elled via OM: Order cancelled - Patient discharged Performed By: #### L 300.3900, M200.1000, L503.6005, L100.0100, L501.4021, L300.4310, L500.4050 #### [facility] [address] [place], [address] CL Normal 98-108 [facility] Comment on above: Result Comment: Canc elled via OM: Order cancelled - Patient discharged Performed By: #### L 300.3900, M200.1000, L503.6005, L100.0100, L501.4021, L300.4310, L500.4050 #### [facility] [address] [place], [address] CO2 Normal 21.0-32.0 [facility] Comment on above: Result Comment: Canc elled via OM: Order cancelled - Patient discharged Performed By: #### L 300.3900, M200.1000, L503.6005, L100.0100, L501.4021, L300.4310, L500.4050 #### [facility] [address] [place], [address] CREAT,SERUM Normal 0.70-1.20 [facility] Comment on above: Result Comment: Canc elled via OM: Order cancelled - Patient discharged Performed By: #### L 300.3900, M200.1000, L503.6005, L100.0100, L501.4021, L300.4310, L500.4050 #### [facility] [address] [place], [address] eGFR Normal >60 [facility] Comment on above: Result Comment: Canc elled via OM: Order cancelled - Patient discharged Performed By: #### L 300.3900, M200.1000, L503.6005, L100.0100, L501.4021, L300.4310, L500.4050 #### [facility] [address] [place], [address] GAP Normal 5-15 [facility] Comment on above: Result Comment: Canc elled via OM: Order cancelled - Patient discharged Performed By: #### L 300.3900, M200.1000, L503.6005, L100.0100, L501.4021, L300.4310, L500.4050 #### [facility] [address] [place], [address] GLU Normal 70-99 [facility] Comment on above: Result Comment: Canc elled via OM: Order cancelled - Patient discharged Performed By: #### L 300.3900, M200.1000, L503.6005, L100.0100, L501.4021, L300.4310, L500.4050 #### [facility] [address] [place], [address] Potassium Normal 3.3-5.1 [facility] Comment on above: Result Comment: Canc elled via OM: Order cancelled - Patient discharged Performed By: #### L 300.3900, M200.1000, L503.6005, L100.0100, L501.4021, L300.4310, L500.4050 #### [facility] [address] [place], [address] Basic Metabolic Profile (BMP) Normal 133-145 [facility] Comment on above: Result Comment: Canc elled via OM: Order cancelled - Patient discharged Performed By: #### L 300.3900, M200.1000, L503.6005, L100.0100, L501.4021, L300.4310, L500.4050 #### [facility] [address] [place], [address] CBC W/Diff, Automatedon 06-0 -2024 Absolute Neut Normal 2.0-7.7 [facility] Comment on above: Result Comment: Canc elled via OM: Order cancelled - Patient discharged Performed By: #### L 300.3900, M200.1000, L503.6005, L100.0100, L501.4021, L300.4310, L500.4050 #### [facility] [address] [place], [address] HCT Normal 37-47 [facility] Comment on above: Result Comment: Canc elled via OM: Order cancelled - Patient discharged Performed By: #### L 300.3900, M200.1000, L503.6005, L100.0100, L501.4021, L300.4310, L500.4050 #### [facility] [address] [place], [address] HGB Normal 12.0-15.0 [facility] Comment on above: Result Comment: Canc elled via OM: Order cancelled - Patient discharged Performed By: #### L 300.3900, M200.1000, L503.6005, L100.0100, L501.4021, L300.4310, L500.4050 #### [facility] [address] [place], [address] MCH Normal 27.0-32.0 [facility] Comment on above: Result Comment: Canc elled via OM: Order cancelled - Patient discharged Performed By: #### L 300.3900, M200.1000, L503.6005, L100.0100, L501.4021, L300.4310, L500.4050 #### [facility] [address] [place], [address] MCHC Normal 32-36 [facility] Comment on above: Result Comment: Canc elled via OM: Order cancelled - Patient discharged Performed By: #### L 300.3900, M200.1000, L503.6005, L100.0100, L501.4021, L300.4310, L500.4050 #### [facility] [address] [place], [address] MCV Normal 81-99 [facility] Comment on above: Result Comment: Canc elled via OM: Order cancelled - Patient discharged Performed By: #### L 300.3900, M200.1000, L503.6005, L100.0100, L501.4021, L300.4310, L500.4050 #### [facility] [address] [place], [address] NEUT% Normal 47-70 [facility] Comment on above: Result Comment: Canc elled via OM: Order cancelled - Patient discharged Performed By: #### L 300.3900, M200.1000, L503.6005, L100.0100, L501.4021, L300.4310, L500.4050 #### [facility] [address] [place], [address] PLT Normal 150-450 [facility] Comment on above: Result Comment: Canc elled via OM: Order cancelled - Patient discharged Performed By: #### L 300.3900, M200.1000, L503.6005, L100.0100, L501.4021, L300.4310, L500.4050 #### [facility] [address] [place], [address] RBC Normal 4.2-5.4 [facility] Comment on above: Result Comment: Canc elled via OM: Order cancelled - Patient discharged Performed By: #### L 300.3900, M200.1000, L503.6005, L100.0100, L501.4021, L300.4310, L500.4050 #### [facility] [address] [place], [address] RDW CV Normal 11.6-14.6 [facility] Comment on above: Result Comment: Canc elled via OM: Order cancelled - Patient discharged Performed By: #### L 300.3900, M200.1000, L503.6005, L100.0100, L501.4021, L300.4310, L500.4050 #### [facility] [address] [place], [address] RDW SD Normal 35.1-43.9 [facility] Comment on above: Result Comment: Canc elled via OM: Order cancelled - Patient discharged Performed By: #### L 300.3900, M200.1000, L503.6005, L100.0100, L501.4021, L300.4310, L500.4050 #### [facility] [address] [place], [address] WBC Normal 4.4-11.0 [facility] Comment on above: Result Comment: Canc elled via OM: Order cancelled - Patient discharged Performed By: #### L 300.3900, M200.1000, L503.6005, L100.0100, L501.4021, L300.4310, L500.4050 #### [facility] [address] [place], [address] Basic Metabolic Profile (BMP )on 03-26-2025 BUN Normal 4-19 [facility] Comment on above: Result Comment: Canc elled via OM: Order cancelled - Patient discharged Performed By: #### L 300.3900, M200.1000, L503.6005, L100.0100, L501.4021, L300.4310, L500.4050 #### [facility] [address] [place], [address] BUN/CRE Normal 10-20 [facility] Comment on above: Result Comment: Canc elled via OM: Order cancelled - Patient discharged Performed By: #### L 300.3900, M200.1000, L503.6005, L100.0100, L501.4021, L300.4310, L500.4050 #### [facility] [address] [place], [address] Calcium Normal 7.6-11.0 [facility] Comment on above: Result Comment: Canc elled via OM: Order cancelled - Patient discharged Performed By: #### L 300.3900, M200.1000, L503.6005, L100.0100, L501.4021, L300.4310, L500.4050 #### [facility] [address] [place], [address] CL Normal 98-108 [facility] Comment on above: Result Comment: Canc elled via OM: Order cancelled - Patient discharged Performed By: #### L 300.3900, M200.1000, L503.6005, L100.0100, L501.4021, L300.4310, L500.4050 #### [facility] [address] [place], [address] CO2 Normal 21.0-32.0 [facility] Comment on above: Result Comment: Canc elled via OM: Order cancelled - Patient discharged Performed By: #### L 300.3900, M200.1000, L503.6005, L100.0100, L501.4021, L300.4310, L500.4050 #### [facility] [address] [place], [address] CREAT,SERUM Normal 0.70-1.20 [facility] Comment on above: Result Comment: Canc elled via OM: Order cancelled - Patient discharged Performed By: #### L 300.3900, M200.1000, L503.6005, L100.0100, L501.4021, L300.4310, L500.4050 #### [facility] [address] [place], [address] eGFR Normal >60 [facility] Comment on above: Result Comment: Canc elled via OM: Order cancelled - Patient discharged Performed By: #### L 300.3900, M200.1000, L503.6005, L100.0100, L501.4021, L300.4310, L500.4050 #### [facility] [address] [place], [address] GAP Normal 5-15 [facility] Comment on above: Result Comment: Canc elled via OM: Order cancelled - Patient discharged Performed By: #### L 300.3900, M200.1000, L503.6005, L100.0100, L501.4021, L300.4310, L500.4050 #### [facility] [address] [place], [address] GLU Normal 70-99 [facility] Comment on above: Result Comment: Canc elled via OM: Order cancelled - Patient discharged Performed By: #### L 300.3900, M200.1000, L503.6005, L100.0100, L501.4021, L300.4310, L500.4050 #### [facility] [address] [place], [address] Potassium Normal 3.3-5.1 [facility] Comment on above: Result Comment: Canc elled via OM: Order cancelled - Patient discharged Performed By: #### L 300.3900, M200.1000, L503.6005, L100.0100, L501.4021, L300.4310, L500.4050 #### [facility] [address] [place], [address] Basic Metabolic Profile (BMP) Normal 133-145 [facility] Comment on above: Result Comment: Canc elled via OM: Order cancelled - Patient discharged Performed By: #### L 300.3900, M200.1000, L503.6005, L100.0100, L501.4021, L300.4310, L500.4050 #### [facility] [address] [place], [address] CBC W/Diff, Automatedon 06-0 -2024 Absolute Neut Normal 2.0-7.7 [facility] Comment on above: Result Comment: Canc elled via OM: Order cancelled - Patient discharged Performed By: #### L 300.3900, M200.1000, L503.6005, L100.0100, L501.4021, L300.4310, L500.4050 #### [facility] [address] [place], [address] HCT Normal 37-47 [facility] Comment on above: Result Comment: Canc elled via OM: Order cancelled - Patient discharged Performed By: #### L 300.3900, M200.1000, L503.6005, L100.0100, L501.4021, L300.4310, L500.4050 #### [facility] [address] [place], [address] HGB Normal 12.0-15.0 [facility] Comment on above: Result Comment: Canc elled via OM: Order cancelled - Patient discharged Performed By: #### L 300.3900, M200.1000, L503.6005, L100.0100, L501.4021, L300.4310, L500.4050 #### [facility] [address] [place], [address] MCH Normal 27.0-32.0 [facility] Comment on above: Result Comment: Canc elled via OM: Order cancelled - Patient discharged Performed By: #### L 300.3900, M200.1000, L503.6005, L100.0100, L501.4021, L300.4310, L500.4050 #### [facility] [address] [place], [address] MCHC Normal 32-36 [facility] Comment on above: Result Comment: Canc elled via OM: Order cancelled - Patient discharged Performed By: #### L 300.3900, M200.1000, L503.6005, L100.0100, L501.4021, L300.4310, L500.4050 #### [facility] [address] [place], [address] MCV Normal 81-99 [facility] Comment on above: Result Comment: Canc elled via OM: Order cancelled - Patient discharged Performed By: #### L 300.3900, M200.1000, L503.6005, L100.0100, L501.4021, L300.4310, L500.4050 #### [facility] [address] [place], [address] NEUT% Normal 47-70 [facility] Comment on above: Result Comment: Canc elled via OM: Order cancelled - Patient discharged Performed By: #### L 300.3900, M200.1000, L503.6005, L100.0100, L501.4021, L300.4310, L500.4050 #### [facility] [address] [place], [address] PLT Normal 150-450 [facility] Comment on above: Result Comment: Canc elled via OM: Order cancelled - Patient discharged Performed By: #### L 300.3900, M200.1000, L503.6005, L100.0100, L501.4021, L300.4310, L500.4050 #### [facility] [address] [place], [address] RBC Normal 4.2-5.4 [facility] Comment on above: Result Comment: Canc elled via OM: Order cancelled - Patient discharged Performed By: #### L 300.3900, M200.1000, L503.6005, L100.0100, L501.4021, L300.4310, L500.4050 #### [facility] [address] [place], [address] RDW CV Normal 11.6-14.6 [facility] Comment on above: Result Comment: Canc elled via OM: Order cancelled - Patient discharged Performed By: #### L 300.3900, M200.1000, L503.6005, L100.0100, L501.4021, L300.4310, L500.4050 #### [facility] [address] [place], [address] RDW SD Normal 35.1-43.9 [facility] Comment on above: Result Comment: Canc elled via OM: Order cancelled - Patient discharged Performed By: #### L 300.3900, M200.1000, L503.6005, L100.0100, L501.4021, L300.4310, L500.4050 #### [facility] [address] [place], [place], [id number] WBC Normal 4.4-11.0 [facility] Comment on above: Result Comment: Canc elled via OM: Order cancelled - Patient discharged Performed By: #### L 300.3900, M200.1000, L503.6005, L100.0100, L501.4021, L300.4310, L500.4050 #### [facility] [address] [place], [place], [id number] [phone], Blood (WB)on 2024 CUB Blood cultures x2, f rom two different sites No growth in 5 days. Normal [facility] Comment on above: Performed By: #### L 300.3900, M200.1000, L503.6005, L100.0100, L501.4021, L300.4310, L500.4050 ####[facility] [address] [place], [address] Anion gap in Serum or Plasma Ordered By: Troy Akins on 03-25-2025 Anion gap [Moles/Vol] 11 mmol/L 5-15 [facility] BUN/creatinine ratioOrdered By: Troy Akins on 03-25-2025 Urea nitrogen/Creatinine [Mass ratio] 16.3 mg/mg - [facility] Basic Metabolic Profile (BMP )on 03-25-2025 BUN/CRE 16.3 RATIO Normal - [facility] Comment on above: Performed By: #### L 300.3900, M200.1000, L503.6005, L100.0100, L501.4021, L300.4310, L500.4050 #### [facility] [address] [place], [address] Calcium [Mass/Vol] 9.0 mg/dL Normal 7.6-11.0 [facility] Comment on above: Performed By: #### L 300.3900, M200.1000, L503.6005, L100.0100, L501.4021, L300.4310, L500.4050 #### [facility] [address] [place], [address] Chloride [Moles/Vol] 96 mmol/L Low 98-108 [facility] Comment on above: Performed By: #### L 300.3900, M200.1000, L503.6005, L100.0100, L501.4021, L300.4310, L500.4050 #### [facility] [address] [place], [address] CO2 [Moles/Vol] 29.4 mmol/L Normal 21.0-32.0 [facility] Comment on above: Performed By: #### L 300.3900, M200.1000, L503.6005, L100.0100, L501.4021, L300.4310, L500.4050 #### [facility] [address] [place], [address] Creatinine [Mass/Vol] 0.50 mg/dL Low 0.70-1.20 [facility] Comment on above: Performed By: #### L 300.3900, M200.1000, L503.6005, L100.0100, L501.4021, L300.4310, L500.4050 #### [facility] [address] [place], [address] ECRCL 103.02 ml/min Normal 50-250 [facility] Comment on above: Performed By: #### L 300.3900, M200.1000, L503.6005, L100.0100, L501.4021, L300.4310, L500.4050 #### [facility] [address] [place], [address] GAP 11 Normal 5-15 [facility] Comment on above: Performed By: #### L 300.3900, M200.1000, L503.6005, L100.0100, L501.4021, L300.4310, L500.4050 #### [facility] [address] [place], [address] GFR/1.73 sq M.predicted among non-blacks MDRD (S/P/Bld) [Vol rate/Area] 106 mL/min/{1.73_m2} Normal >60 [facility] Comment on above: Result Comment: mL/m in/1.73m2 CKD-EPI Creatinine Equation (2020) Performed By: #### L 300.3900, M200.1000, L503.6005, L100.0100, L501.4021, L300.4310, L500.4050 #### [facility] [address] [place], [address] Glucose [Mass/Vol] 120 mg/dL High 70-99 [facility] Comment on above: Performed By: #### L 300.3900, M200.1000, L503.6005, L100.0100, L501.4021, L300.4310, L500.4050 #### [facility] [address] [place], [address] Potassium [Moles/Vol] 4.2 mmol/L Normal 3.3-5.1 [facility] Comment on above: Performed By: #### L 300.3900, M200.1000, L503.6005, L100.0100, L501.4021, L300.4310, L500.4050 #### [facility] [address] [place], [address] Sodium [Moles/Vol] 137 mmol/L Normal 133-145 [facility] Comment on above: Performed By: #### L 300.3900, M200.1000, L503.6005, L100.0100, L501.4021, L300.4310, L500.4050 #### [facility] [address] [place], [address] Urea nitrogen [Mass/Vol] 8 mg/dL Normal 4-19 [facility] Comment on above: Performed By: #### L 300.3900, M200.1000, L503.6005, L100.0100, L501.4021, L300.4310, L500.4050 #### [facility] [address] [place], [address] Blood manual differential co mment interpretation (narrative result)Ordered By: Troy Akins on 03-25-2025 Manual differential comment Neal (Bld) [Interp] SCANNED [facility] Comment on above: 2+ ANISOCYTOSIS1+ PO LYCHROMASIA CBC-Complete Blood Cnt No Di ffon 03-25-2025 Erythrocyte distribution width (RBC) [Ratio] 23.9 % High 11.6-14.6 [facility] Comment on above: Performed By: #### L 300.3900, M200.1000, L503.6005, L100.0100, L501.4021, L300.4310, L500.4050 #### [facility] [address] [place], [address] Hematocrit (Bld) [Volume fraction] 33.2 % Low 37-47 [facility] Comment on above: Performed By: #### L 300.3900, M200.1000, L503.6005, L100.0100, L501.4021, L300.4310, L500.4050 #### [facility] [address] [place], [address] Hemoglobin (Bld) [Mass/Vol] 10.0 g/dL Low 12.0-15.0 [facility] Comment on above: Performed By: #### L 300.3900, M200.1000, L503.6005, L100.0100, L501.4021, L300.4310, L500.4050 #### [facility] [address] [place], [address] MCH (RBC) [Entitic mass] 23.4 pg Low 27.0-32.0 [facility] Comment on above: Performed By: #### L 300.3900, M200.1000, L503.6005, L100.0100, L501.4021, L300.4310, L500.4050 #### [facility] [address] [place], [address] MCHC (RBC) [Mass/Vol] 30.1 g/dL Low 32-36 [facility] Comment on above: Performed By: #### L 300.3900, M200.1000, L503.6005, L100.0100, L501.4021, L300.4310, L500.4050 #### [facility] [address] [place] [place], [address] MCV (RBC) [Entitic vol] 77.6 fL Low 81-99 [facility] Comment on above: Performed By: #### L 300.3900, M200.1000, L503.6005, L100.0100, L501.4021, L300.4310, L500.4050 #### [facility] [address] [place], [address] Platelet mean volume (Bld) [Entitic vol] 9.5 fL Normal 6.2-12.0 [facility] Comment on above: Performed By: #### L 300.3900, M200.1000, L503.6005, L100.0100, L501.4021, L300.4310, L500.4050 #### [facility] [address] [place], [address] Platelets (Bld) [#/Vol] 354 10*3/uL Normal 150-450 [facility] Comment on above: Performed By: #### L 300.3900, M200.1000, L503.6005, L100.0100, L501.4021, L300.4310, L500.4050 #### [facility] [address] [place], [address] RBC (Bld) [#/Vol] 4.28 10*6/uL Normal 4.2-5.4 [facility] Comment on above: Performed By: #### L 300.3900, M200.1000, L503.6005, L100.0100, L501.4021, L300.4310, L500.4050 #### [facility] [address] [place], [address] RDW SD 58.6 fl High 35.1-43.9 [facility] Comment on above: Performed By: #### L 300.3900, M200.1000, L503.6005, L100.0100, L501.4021, L300.4310, L500.4050 #### [facility] [address] [place], [address] WBC (Bld) [#/Vol] 11.3 10*3/uL High 4.4-11.0 [facility] Comment on above: Performed By: #### L 300.3900, M200.1000, L503.6005, L100.0100, L501.4021, L300.4310, L500.4050 #### [facility] [address] [place], [address] Carbon dioxide, total [Moles /volume] in Central venous bloodOrdered By: Troy Akins on 03-25-2025 CO2 [Moles/Vol] 29.4 mmol/L 21.0-32.0 [facility] Chloride assayOrdered By: aSm Akins on 03-25-2025 Chloride [Moles/Vol] 96 mmol/L Low 98-108 [facility] Differential Commenton 03-25 SMEAR COMMENT SCANNED Normal [facility] Comment on above: Result Comment: 2+ A NISOCYTOSIS 1+ POLYCHROMASIA Performed By: #### L 300.3900, M200.1000, L503.6005, L100.0100, L501.4021, L300.4310, L500.4050 #### [facility] [address] [place], [address] EGD Reporton 03-25-2025 EGD Report [facility] Medical Records Department [address] [place] [address] EGD Report MR#: [id number] Acct: [id number] Name: AISHA HA Rep #: [id number] : 1965 60 From: Cal Bahena DO [...] angiodysplastic lesions Procedure Code(s): --- Professional --- 62871, Small intestinal endoscopy, enteroscopy beyond second portion of duodenum, not including ileum; with control of bleeding (eg, injection, bipolar cautery, unipolar cautery, laser, heater probe, stapler, plasma branch library clerk) CPT copyright 2021 [employer]. All rights reserved. The codes documented in this report are preliminary and upon medical biller coder review may be revised to meet current compliance requirements. Cal Bahena DO 03/25/2025 4:12:45 PM This report has been signed electronically. Number of Addenda: 1 Note Initiated On: 03/25/2025 3:46 PM Addendum Number: 1 Addendum Date: 03/26/2025 10:35:09 AM The patient had a angiodysplastic lesion that was treated in the gastric body. This area was clipped with a [employer] Clip. Cal Bahena DO 03/26/2025 10:35:38 AM This report has been signed electronically. 03/26/25 1035 Date Cal Uriostegui Signature: Date (if indicated) CC: Mónica Ramos (more content not included)... Normal [facility] Electrocardiogram reportOrde red By: Luiz Weber on 03-25-2025 EKG study [facility] Cardiovascular Services [address] [place] [address] 12 Lead EKG 03/23/25 0732 MR#: [id number] Acct: [id number] Name: AISHA HA Rep #:[id number] : 1965 60 From: Luiz conde MD Attending Dr: Dr. Troy Akins MD Status: ADM IN Ordering Dr: Troy Akins MD Date: Location: [facility] Sex: F C Admitted: 03/20/25 Test Reason [...] DATA IS UNCONFIRMED Confirmed by Luiz Weber ([id number]), city editor HELADIO MARIN ([id number]) on 03/25/2025 8:01:43 AM Referred By: Confirmed By: Luiz Weber 03/25/25 0801 Date _ Luiz Weber MD CC: Dr. Geovani Gay MD; Dr. Troy Akins MD ~ Signed [facility] Other Phone: Erythrocyte distribution wid th ratioOrdered By: Troy Akins on 03-25-2025 Erythrocyte distribution width (RBC) [Ratio] 23.9 % High 11.6-14.6 [facility] Erythrocyte distribution wid th standard deviationOrdered By: Troy Akins on 03-25-2025 Erythrocyte distribution width (RBC) [Ratio] 58.6 fl High 35.1-43.9 [facility] Glomerular filtration rate ( GFR) estimation/1.73 sq m using serum, plasma, or whole bOrdered By: Troy Akins on 03-25-2025 GFR/1.73 sq M.predicted among non-blacks MDRD (S/P/Bld) [Vol rate/Area] 106 mL/min/{1.73_m2} >60 [facility] Comment on above: mL/min/1.73m2 CKD-EP I Creatinine Equation (2021) Hematocrit Auto (Bld) [Volum e fraction]Ordered By: Troy Akins on 03-25-2025 Hematocrit (Bld) [Volume fraction] 33.2 % Low 37-47 [facility] Hemoglobin measurementOrdere d By: Troy Akins on 03-25-2025 Hemoglobin (Bld) [Mass/Vol] 10.0 g/dL Low 12.0-15.0 [facility] MCV (mean corpuscular volume ) determinationOrdered By: Troy Akins on 03-25-2025 MCV (RBC) [Entitic vol] 77.6 fL Low 81-99 [facility] MR/POSTOP.ANEon 03-25-2025 MR/POSTOP.ANE [facility] Medical Records Department [address] [place] [address] Anesthesia Postop Eval I 03/25/25 1614 MR#: [id number] Acct: [id number] Name: AISHA HA Emma Rep #: [id number] : 1965 60 From: Jef Herman CRNA PCP: Dr. Geovani Gay MD Status:ADM IN Y Race: C Location: [place] [address] Anesthesia: Postop Eval I Current Vital Signs [...] CRNA Cosigner Signature: Date CC: Signed Normal [facility] MR/RVCNLOYK3og 03-25-2025 MR/POSTOPAN2 [facility] Medical Records Department [address] [place] [address] Anesthesia Postop Eval II 03/25/25 1617 MR#: [id number] Acct: [id number] Name: AISHA HA Rep #: [id number] : 1965 60 From: Jef Herman [employer] SITE MANAGER PCP: Dr. Geovani Gay MD Status:ADM IN Y Race: C Location: [place] [address] Anesthesia Postop Eval I Sum Postop Eval Completion status Anesthesia document: Postop Eval 1 completed: Yes Anesthesia Postop Eval I Summary Anesthesia Postop Eval I Summary: Anesthesia Postop Eval I: Assessment Summary Airway patent Yes 03/25/25 16:15 [employer]EV[employer] SITE MANAGER.MDOT Spontaneous unlabored Yes 03/25/25 16:15 [employer]EVEL[employer] SITE MANAGER.MDOT respirations Mental status Awake,Calm 03/25/25 16:15 [employer]EVEL[employer] SITE MANAGER.MDOT nausea No 03/25/25 16:15 [employer]EVELOP[employer] SITE MANAGER.MDOT Vomiting No 03/25/25 16:15 [employer]EVELOPMENT SITE MANAGER.MDOT Anesthesia Postop Eval I: Fluid Summary Crystalloid volume administer 300 03/25/25 16:15 [employer] REDEVELOPMENT SITE MANAGER.MDOT (ml) Colloids volume administered ( ml) Blood Product volume administered (ml) Total IV fluid infused 300 03/25/25 16:15 [employer] REDEVELOPMENT SITE MANAGER.MDOT Anesthesia Postop Eval I: Summary Notes Anesthesia Complication No 03/25/25 16:15 [employer] REDEVELOPMENT SITE MANAGER.MDOT Anesthesia Complication Comment: Post-operative progress note Anesthesia: Postop Eval II Evaluation Mental status: Awake and Calm Pain Level: 0 nausea: No Vomiting: No Complications Anesthesia Complication: No 03/25/25 1617 Date Jef Herman [employer]EVELOPMENT SITE MANAGER Cosigner Signature: Date CC: Signed Normal [facility] Magnesiumon 03-25-2025 Magnesium [Mass/Vol] 1.5 mg/dL Normal 1.5-2.2 [facility] Comment on above: Performed By: #### L 300.3900, M200.1000, L503.6005, L100.0100, L501.4021, L300.4310, L500.4050 #### [facility] [address] [place], [address] Magnesium measurement (mass/ volume)Ordered By: Troy Akins on 03-25-2025 Magnesium (Unsp spec) [Mass/Vol] 1.5 mg/dL 1.5-2.2 [facility] Mean corpuscular hemoglobin (MCH) determinationOrdered By: Troy Akins on 03-25-2025 MCH (RBC) [Entitic mass] 23.4 pg Low 27.0-32.0 [facility] Mean corpuscular hemoglobin concentration (MCHC) determinationOrdered By: Troy Akins on 03-25-2025 MCHC (RBC) [Mass/Vol] 30.1 g/dL Low 32-36 [facility] Mean platelet volume determi nationOrdered By: Troy Akins on 03-25-2025 Platelet mean volume (Bld) [Entitic vol] 9.5 fL 6.2-12.0 [facility] Phosphoruson 03-25-2025 Phosphate [Mass/Vol] 3.3 mg/dL Normal 2.7-4.5 [facility] Comment on above: Performed By: #### L 300.3900, M200.1000, L503.6005, L100.0100, L501.4021, L300.4310, L500.4050 #### [facility] [address] [place], [address] Platelet countOrdered By: Sam Akins on 03-25-2025 Platelets (Bld) [#/Vol] 354 10*3/uL 150-450 [facility] Potassium measurement (mass/ volume)Ordered By: Troy Akins on 03-25-2025 Potassium (Unsp spec) [Mass/Vol] 4.2 mmol/L 3.3-5.1 [facility] RBC Auto (Bld) [#/Vol]Ordere d By: Troy Akins on 03-25-2025 RBC (Bld) [#/Vol] 4.28 10*6/uL 4.2-5.4 [facility] Serum creatinine measurement (mass/volume)Ordered By: Troy Akins on 03-25-2025 Creatinine [Mass/Vol] 0.50 mg/dL Low 0.70-1.20 [facility] Serum glucose measurement (m ass/volume)Ordered By: Troy Akins on 03-25-2025 Glucose [Mass/Vol] 120 mg/dL High 70-99 [facility] Serum or plasma calcium ceasar urement (mass/volume)Ordered By: Troy Akins on 03-25-2025 Calcium [Mass/Vol] 9.0 mg/dL 7.6-11.0 [facility] Serum or plasma urea nitroge n measurement (mass/volume)Ordered By: Troy Akins on 03-25-2025 Urea nitrogen [Mass/Vol] 8 mg/dL 4-19 [facility] Sodium levelOrdered By: Michel Akins on 03-25-2025 Sodium [Moles/Vol] 137 mmol/L 133-145 [facility] White blood cell (WBC) count Ordered By: Troy Akins on 03-25-2025 WBC (Bld) [#/Vol] 11.3 10*3/uL High 4.4-11.0 [facility] Absolute lymphocyte countOrd ered By: Troy Akins on 03-24-2025 Lymphocytes Auto (Unsp spec) [#/Vol] 2.41 10*3/uL 0.83-4.51 [facility] Absolute neutrophil countOrd ered By: Troy Akins on 03-24-2025 Neutrophils (Bld) [#/Vol] 7.3 10*3/uL 2.0-7.7 [facility] Automated lymphocyte count a s percentage of total leukocytesOrdered By: Troy Akins on 03-24-2025 Lymphocytes/100 WBC Auto (Unsp spec) 22.9 % 19-41 [facility] Basic Metabolic Profile (BMP )on 03-24-2025 BUN/CRE 16.0 RATIO Normal 10-20 [facility] Comment on above: Performed By: #### L 100.0100, L500.2500 ####[facility] [address] [place], [address] Calcium [Mass/Vol] 9.0 mg/dL Normal 7.6-11.0 [facility] Comment on above: Performed By: #### L 100.0100, L500.2500 ####[facility] [address] [place], [address] Chloride [Moles/Vol] 97 mmol/L Low 98-108 [facility] Comment on above: Performed By: #### L 100.0100, L500.2500 ####[facility] [address] [place], [address] CO2 [Moles/Vol] 30.1 mmol/L Normal 21.0-32.0 [facility] Comment on above: Performed By: #### L 100.0100, L500.2500 ####[facility] [address] [place], [address] Creatinine [Mass/Vol] 0.46 mg/dL Low 0.70-1.20 [facility] Comment on above: Performed By: #### L 100.0100, L500.2500 ####[facility] [address] [place], [address] ECRCL 111.98 ml/min Normal 50-250 [facility] Comment on above: Performed By: #### L 100.0100, L500.2500 ####[facility] [address] [place], [address] GAP 11 Normal 5-15 [facility] Comment on above: Performed By: #### L 100.0100, L500.2500 ####[facility] [address] [place], [address] GFR/1.73 sq M.predicted among non-blacks MDRD (S/P/Bld) [Vol rate/Area] 108 mL/min/{1.73_m2} Normal >60 [facility] Comment on above: Result Comment: mL/m in/1.73m2 CKD-EPI Creatinine Equation (2020) Performed By: #### L 100.0100, L500.2500 ####[facility] [address] [place], [address] Glucose [Mass/Vol] 100 mg/dL High 70-99 [facility] Comment on above: Performed By: #### L 100.0100, L500.2500 ####[facility] [address] [place], [address] Potassium [Moles/Vol] 4.3 mmol/L Normal 3.3-5.1 [facility] Comment on above: Performed By: #### L 100.0100, L500.2500 ####[facility] [address] [place], [address] Sodium [Moles/Vol] 138 mmol/L Normal 133-145 [facility] Comment on above: Performed By: #### L 100.0100, L500.2500 ####[facility] [address] [place], [address] Urea nitrogen [Mass/Vol] 7 mg/dL Normal 4-19 [facility] Comment on above: Performed By: #### L 100.0100, L500.2500 ####[facility] [address] [place], [address] Basophil percentageOrdered B y: Troy Akins on 03-24-2025 Basophils/100 WBC (Bld) 0.1 % 0-1 [facility] Blood polychromasia detectio n by light microscopyOrdered By: Troy Akins on 03-24-2025 Polychromasia LM Ql (Bld) 1+ [facility] Blood schistocyte detection by light microscopyOrdered By: Troy Akins on 03-24-2025 Schistocytes LM Ql (Bld) RARE [facility] CBC W/Diff, Automatedon Anisocytosis Ql (Bld) 2+ Normal [facility] Comment on above: Performed By: #### L 100.0100, L500.2500 ####[facility] [address] [place], [address] HYPOCHROMASIA 1+ Normal [facility] Comment on above: Performed By: #### L 100.0100, L500.2500 ####[facility] [address] [place], [address] MICROCYTIC 1+ Normal [facility] Comment on above: Performed By: #### L 100.0100, L500.2500 ####[facility] [address] [place], [address] OVALOCYTE 1+ Normal [facility] Comment on above: Performed By: #### L 100.0100, L500.2500 ####[facility] [address] [place], [address] PLT EST ADEQUATE Normal ADEQ [facility] Comment on above: Performed By: #### L 100.0100, L500.2500 ####[facility] [address] [place], [address] POLYCHROMASIA 1+ Normal [facility] Comment on above: Performed By: #### L 100.0100, L500.2500 ####[facility] [address] [place], [address] SCHISTOCYTES RARE Normal [facility] Comment on above: Performed By: #### L 100.0100, L500.2500 ####[facility] [address] [place], [address] SMEAR COMMENT SCANNED Normal [facility] Comment on above: Performed By: #### L 100.0100, L500.2500 ####[facility] [address], [address] TARGET CELLS 1+ Normal [facility] Comment on above: Performed By: #### L 100.0100, L500.2500 ####[facility] [address] [place], [address] TEAR DROP RARE Normal [facility] Comment on above: Performed By: #### L 100.0100, L500.2500 ####[facility] [address] [place], [address] Electrocardiogram reportOrde red By: Luiz Weber on 03-24-2025 EKG study [facility] Cardiovascular Services [address] [place] [address] 12 Lead EKG 03/20/25 1719 MR#: [id number] Acct: [id number] Name: AISHA HA Rep #:[id number] : 1965 60 From: Luiz conde MD Attending Dr: Dr. Troy Akins MD Status: ADM IN Ordering Dr: Bradley Pichardo DO Date: Location: [facility] Sex: F C Admitted: 03/20/25 Test Reason [...] ischemia Abnormal ECG Confirmed by Luiz Weber ([id number]), city editor HELADIO MARIN ([id number]) on 03/24/2025 10:40:48 AM Referred By: SELINA/VIVEK Confirmed By: Luiz Weber 03/24/25 1040 Date _ Luiz Weber MD CC: Dr. Geovani Gay MD; Dr. Troy Akins MD; Dr. Bradley Pichardo, DO ~ Signed [facility] Other Phone: Eosinophil percentageOrdered By: Troy Akins on 03-24-2025 Eosinophils/100 WBC (Bld) 0.1 % 0-5 [facility] Hypochromatic red blood cell detectionOrdered By: Troy Akins on 03-24-2025 Hypochromia Ql (Bld) 1+ [facility] Immature granulocytes/100 WB C Auto (Bld)Ordered By: Troy Akins on 03-24-2025 Immature granulocytes/100 WBC (Bld) 0.800 % 0.0-0.9 [facility] Comment on above: IG% - Immature Granu locytes (promyelocytes, myelocytes and metamyelocytes) > 1% indicates that a LEFT SHIFT is Present. Laboratory - Hematology and Cell countsOrdered By: Troy Akins on 03-24-2025 Anisocytosis Ql (Bld) 2+ [facility] MR/CON.PCM.GIon 03-24-2025 MR/CON.PCM.GI [facility] Medical Records Department [address] [place] [address] Consultation - GI 03/24/25 1913 MR#: [id number] Acct: [id number] Name: AISHA HA Rep #: [id number] : 1965 60 From: Cal Bahena DO PCP: Dr. Geovani Gay MD Status:ADM IN Location: [place] [address] HPI Consult Data Date of Consult: 03/24/25 [...] of the liver, which may represent fibrosis/cirrhosis. [facility] Medical History (Updated 03/24/25 @ 19:17 by [...] Verified 03/20 (more content not included)... Normal [facility] Monocyte percentageOrdered B y: Troy Akins on 03-24-2025 Monocytes/100 WBC (Bld) 6.5 % 0-10 [facility] Neutrophil percentageOrdered By: Troy Akins on 03-24-2025 Neutrophils/100 WBC (Bld) 69.6 % 47-70 [facility] Nucleated red blood cell per centageOrdered By: Troy Akins on 03-24-2025 Nucleated RBC/100 WBC (Bld) [Ratio] 0.2 % 0-5 [facility] Ovalocyte detectionOrdered B y: Troy Akins on 03-24-2025 Ovalocytes LM Ql (Bld) 1+ [facility] Platelet estimateOrdered By: Troy Akins on 03-24-2025 Platelets LM Ql (Bld) ADEQUATE ADEQ [facility] Target cell detectionOrdered By: Troy Akins on 03-24-2025 Target cells LM Ql (Bld) 1+ [facility] Teardrop cell detectionOrder ed By: Troy Akins on 03-24-2025 Dacrocytes LM Ql (Bld) RARE [facility] 12 Lead EKGon 03-23-2025 12 Lead EKG [facility] Cardiovascular Services [address] [place] [address] 12 Lead EKG 03/23/25 0732 MR#: [id number] Acct: [id number] Name: AISHA HA Rep #: [id number] : 1965 60 From: Luiz Weber MD Attending Dr: Dr. Troy Akins MD Status: ADM IN Ordering Dr: Troy Akins MD Date: 03/23/25 Location: [facility] Sex: F C Admitted: 03/20/25 Test Reason [...] IS UNCONFIRMED Confirmed by Luiz Weber ([id number]), city editor HELADIO MARIN ([id number]) on 03/25/2025 8:01:43 AM Referred By: Confirmed By: Luiz Weber 03/25/25 0801 Date Luiz Weber MD CC: Dr. Geovani Gay MD; Dr. Troy Akins MD Signed Normal [facility] Basic Metabolic Profile (BMP )on 03-23-2025 BUN/CRE 10.7 RATIO Normal 10-20 [facility] Comment on above: Performed By: #### L 500.2500, L100.0100 ####[facility] [address] [place], [address] Calcium [Mass/Vol] 8.8 mg/dL Normal 7.6-11.0 [facility] Comment on above: Performed By: #### L 500.2500, L100.0100 ####[facility] [address] [place], [address] Chloride [Moles/Vol] 100 mmol/L Normal 98-108 [facility] Comment on above: Performed By: #### L 500.2500, L100.0100 ####[facility] [address] [place], [address] CO2 [Moles/Vol] 30.0 mmol/L Normal 21.0-32.0 [facility] Comment on above: Performed By: #### L 500.2500, L100.0100 ####[facility] [address] [place], [address] Creatinine [Mass/Vol] 0.40 mg/dL Low 0.70-1.20 [facility] Comment on above: Performed By: #### L 500.2500, L100.0100 ####[facility] [address] [place], [address] ECRCL 128.78 ml/min Normal 50-250 [facility] Comment on above: Performed By: #### L 500.2500, L100.0100 ####[facility] [address] [place], [address] GAP 11 Normal 5-15 [facility] Comment on above: Performed By: #### L 500.2500, L100.0100 ####[facility] [address], [address] GFR/1.73 sq M.predicted among non-blacks MDRD (S/P/Bld) [Vol rate/Area] 112 mL/min/{1.73_m2} Normal >60 [facility] Comment on above: Result Comment: mL/m in/1.73m2 CKD-EPI Creatinine Equation (2020) Performed By: #### L 500.2500, L100.0100 ####[facility] [address] [place], [address] Glucose [Mass/Vol] 108 mg/dL High 70-99 [facility] Comment on above: Performed By: #### L 500.2500, L100.0100 ####[facility] [address] [place], [address] Potassium [Moles/Vol] 3.8 mmol/L Normal 3.3-5.1 [facility] Comment on above: Performed By: #### L 500.2500, L100.0100 ####[facility] [address] [place], [address] Sodium [Moles/Vol] 140 mmol/L Normal 133-145 [facility] Comment on above: Performed By: #### L 500.2500, L100.0100 ####[facility] [address] [place], [address] Urea nitrogen [Mass/Vol] 4 mg/dL Normal 4-19 [facility] Comment on above: Performed By: #### L 500.2500, L100.0100 ####[facility] [address] [place], [address] CBC W/Diff, Automatedon 06-0 SMEAR COMMENT SCANNED Normal [facility] Comment on above: Performed By: #### L 500.2500, L100.0100 ####[facility] [address] [place], [address] Anisocytosis Ql (Bld) 2+ Normal [facility] Comment on above: Performed By: #### L 500.2500, L100.0100 ####[facility] [address] [place], [address] MICROCYTIC 2+ Normal [facility] Comment on above: Performed By: #### L 500.2500, L100.0100 ####[facility] [address] [place], [address] POLYCHROMASIA RARE Normal [facility] Comment on above: Performed By: #### L 500.2500, L100.0100 ####[facility] [address] [place], [address] CTA Chest W/WO Contraston CTA Chest W/WO Contrast [facility] Imaging Services [address] [place] [address] CTA Chest W/WO Contrast MR#: [id number] Acct: [id number] Name: AISHA HA Rep #: [id number] : 1965 F 60 From: Irma Lopez nd, MD PCP: Dr. Geovani Gay MD Status: ADM IN Study: CTA Chest W/WO Contrast Date of Exam: 03/23/25 Exam# [id number] Ordering Dr: Troy Akins MD PROCEDURE: CTA [...] liver, which may represent fibrosis/cirrhosis. Reading Location: [id number] CC: Dr. Geovani Gay MD; Dr. Troy Akins MD [facility] Attendant: Signed Normal [facility] D-Dimer Quantitative (DVT/PE )on 03-23-2025 D-DIMER QUANT 2.69 FEU/ug/m Invalid Interpretation Code 0.27-0.49 [facility] Comment on above: Result Comment: D-Di batsheva ELEVATED (>0.49): Additional studies and clinical assessments are indicated to conclude diagnosis of: Deep Vein Thrombosis (DVT) or Pulmonary Embolism (PE) CRITICAL VALUE CALLED TO [facility] 03/23/25 0923 Lillian Duong. RESULTS READ BACK BY SAME. Performed By: #### L 300.8000 ####[facility] [address] [place], [address] Respiratory Cultureon 2024 RESPC List Antibiotics Las t 48 Hours? levaquin No Streptococcus pneumoniae, beta-hemolytic Streptococcus or Staphylococcus aureus isolated. Presumptive C albicans Amount Growth 3+ Normal [facility] Comment on above: Performed By: #### L 213.5200 #### [facility] [address] [place], [place], [id number] Urine Cultureon 03-23-2025 [facility] Urine Culture Copy of report sent to Infection Control Printer [id number] 03/23/25 1315 ASNIPES. Meth. resistant Staph. aureus Cornell Count <1000 mecA Testing not performed MIXGP Cornell Count 11,000-25,000 Mixed Gram Positive Organisms cefOXitin Susc Islt Doxycycline Islt NAHOMI 8 I Clindamycin.induced Susc Islt Gentamicin Islt NAHOMI <=0.5 S Linezolid Islt NAHOMI 2 S Moxifloxacin Islt NAHOMI >=8 R Nitrofurantoin Islt NAHOMI <=16 S Oxacillin Susc Islt >=4 R Tetracycline Islt NAHOMI >=16 R TMP SMX Islt NAHOMI >=320 R Vancomycin Islt NAHOMI <=0.5 S Normal [facility] Comment on above: Performed By: #### L 377.5200 #### [facility] [address] [facility] [address] [place], [place], [id number] Basic Metabolic Profile (BMP )on 03-22-2025 BUN/CRE 11.2 RATIO Normal 10-20 [facility] Comment on above: Performed By: #### L 597.5200 #### [facility] [address] [place], [address] Calcium [Mass/Vol] 8.4 mg/dL Normal 7.6-11.0 [facility] Comment on above: Performed By: #### L 968.5200 #### [facility] [address] [place], [address] Chloride [Moles/Vol] 98 mmol/L Normal 98-108 [facility] Comment on above: Performed By: #### L 186.5200 #### [facility] [address] [place], [address] CO2 [Moles/Vol] 26.8 mmol/L Normal 21.0-32.0 [facility] Comment on above: Performed By: #### L 669.5200 #### [facility] [address] [place], [address] Creatinine [Mass/Vol] 0.40 mg/dL Low 0.70-1.20 [facility] Comment on above: Performed By: #### L 501.5200 #### [facility] [address] [place], [address] ECRCL 128.78 ml/min Normal 50-250 [facility] Comment on above: Performed By: #### L 043.5200 #### [facility] [address] [place], [address] GAP 11 Normal 5-15 [facility] Comment on above: Performed By: #### L 493.5200 #### [facility] [address] [place], [address] GFR/1.73 sq M.predicted among non-blacks MDRD (S/P/Bld) [Vol rate/Area] 112 mL/min/{1.73_m2} Normal >60 [facility] Comment on above: Result Comment: mL/m in/1.73m2 CKD-EPI Creatinine Equation (2020) Performed By: #### L 881.5200 #### [facility] [address] [place], [address] Glucose [Mass/Vol] 105 mg/dL High 70-99 [facility] Comment on above: Performed By: #### L 100.5200 #### [facility] [address] [place], [address] Potassium [Moles/Vol] 3.2 mmol/L Low 3.3-5.1 [facility] Comment on above: Performed By: #### L 960.5200 #### [facility] [address] [place], [address] Sodium [Moles/Vol] 136 mmol/L Normal 133-145 [facility] Comment on above: Performed By: #### L 501.5200 #### [facility] [address] [place], [address] Urea nitrogen [Mass/Vol] 4 mg/dL Normal 4-19 [facility] Comment on above: Performed By: #### L 501.5200 #### [facility] [address] [place], [address] CBC W/Diff, Automatedon 05-3 Anisocytosis Ql (Bld) 2+ Normal [facility] Comment on above: Performed By: #### L 501.0 #### [facility] [address] [place], [address] POLYCHROMASIA RARE Normal [facility] Comment on above: Performed By: #### L 501.5200 #### [facility] [address] [place], [address] SMEAR COMMENT SCANNED Normal [facility] Comment on above: Performed By: #### L 501.5200 #### [facility] [address] [place], [address] Magnesiumon 03-22-2025 Magnesium [Mass/Vol] 2.1 mg/dL Normal 1.5-2.2 [facility] Comment on above: Performed By: #### L 501.5200 #### [facility] [address] [place], [address] Phosphoruson 03-22-2025 Phosphate [Mass/Vol] 2.8 mg/dL Normal 2.7-4.5 [facility] Comment on above: Performed By: #### L 501.5200 #### [facility] [address] [place], [address] 36on 03-21-2025 36 Noted. Agree with recommendations. Normal [facility] SHS Antigen K (GIOVANNI) Series 2on 03-21-2025 ANTIGEN ID Normal [facility] Comment on above: Result Comment: NEGA TIVE NEGATIVE Performed By: #### B MARIANA, BTS, [id number], BAGK ####[facility] [address] [place], [address] [id number] 03-21-2025 ANTIBODY ID M Normal [facility] Comment on above: Order Comment: CMV N EG? NNumber of units to transfuse: 1Is pt's Hgb is = to 7.0 mg/dl or Hct </= 21%? YReason for Ordering Blood: ChronicAre the blood/blood products to be transfused? YIs the patient having/had surgery? NNWhen ReadyNYA Performed By: #### B MARIANA, BTS, [id number], BAGK ####[facility] [address], [address] BRCon 03-21-2025 RC Normal [facility] Comment on above: Result Comment: [id number] BN RC NOT AVAILABLE [id number] BN RC TRANSFUSED 03/21/252135 Performed By: #### B MARIANA, BTS, SCNP8903, BAGK ####[facility] [address] [place], [address] Basic Metabolic Profile (BMP )on 03-21-2025 BUN/CRE 16.2 RATIO Normal 10-20 [facility] Comment on above: Performed By: #### L 503.5510 #### [facility] [address] [place], [address] Calcium [Mass/Vol] 7.9 mg/dL Normal 7.6-11.0 [facility] Comment on above: Performed By: #### L 503.5510 #### [facility] [address] [place], [address] Chloride [Moles/Vol] 90 mmol/L Low 98-108 [facility] Comment on above: Performed By: #### L 503.5510 #### [facility] [address] [place], [address] CO2 [Moles/Vol] 28.8 mmol/L Normal 21.0-32.0 [facility] Comment on above: Performed By: #### L 503.5510 #### [facility] [address] [place], [address] Creatinine [Mass/Vol] 0.51 mg/dL Low 0.70-1.20 [facility] Comment on above: Performed By: #### L 503.5510 #### [facility] [address] [place], [address] ECRCL 101.00 ml/min Normal 50-250 [facility] Comment on above: Performed By: #### L 503.5510 #### [facility] [address] [place], [address] GAP 12 Normal 5-15 [facility] Comment on above: Performed By: #### L 503.5510 #### [facility] [address] [place], [address] GFR/1.73 sq M.predicted among non-blacks MDRD (S/P/Bld) [Vol rate/Area] 105 mL/min/{1.73_m2} Normal >60 [facility] Comment on above: Result Comment: mL/m in/1.73m2 CKD-EPI Creatinine Equation (2020) Performed By: #### L 503.5510 #### [facility] [address] [place], [address] Glucose [Mass/Vol] 90 mg/dL Normal 70-99 [facility] Comment on above: Performed By: #### L 503.5510 #### [facility] [address] [place], [address] Potassium [Moles/Vol] 2.8 mmol/L Low 3.3-5.1 [facility] Comment on above: Performed By: #### L 503.5510 #### [facility] [address] [place], [address] Sodium [Moles/Vol] 131 mmol/L Low 133-145 [facility] Comment on above: Performed By: #### L 503.5510 #### [facility] [address] [place], [address] Urea nitrogen [Mass/Vol] 8 mg/dL Normal 4-19 [facility] Comment on above: Performed By: #### L 503.5510 #### [facility] [address] [place], [address] CBC W/Diff, Automatedon 05- PLT EST A Normal ADEQ [facility] Comment on above: Performed By: #### L 503.5510 #### [facility] [address] [place], [address] Anisocytosis Ql (Bld) 1+ Normal [facility] Comment on above: Performed By: #### L 503.5510 #### [facility] [address] [place], [address] POLYCHROMASIA 1+ Normal [facility] Comment on above: Performed By: #### L 503.5510 #### [facility] [address] [place], [address] Gram Stainon 03-21-2025 List Antibiotics Las t 48 Hours? levaquin Acceptable Specimen? Yes (<25 Epithelial cells per/lpf) Gram Stain 3+ White Blood Cells 1+ Yeast Like Organisms 1+ Gram positive rods No Epithelial cells Normal [facility] Comment on above: Performed By: #### L 438.5200 #### [facility] [address] [place], [address] Gram stainOrdered By: Rayna Douglas on 03-21-2025 Microscopic observation Gram stain Nom (Unsp spec) [facility] Lactic Acidon 03-21-2025 Lactate [Moles/Vol] 3.5 mmol/L Invalid Interpretation Code 0.0-2.0 [facility] Comment on above: Result Comment: Crit ical Result(s) Called to: Teo HERNANDEZ ([facility]) by: Patricia??Results read back by same. Performed By: #### L 300.3900, M200.1000, L503.6005, L100.0100, L501.4021, L300.4310, L500.4050 #### [facility] [address] [place], [address] Lactate [Moles/Vol] 2.5 mmol/L Invalid Interpretation Code 0.0-2.0 [facility] Comment on above: Order Comment: Y Result Comment: Crit ical Result(s) Called at 1352: by: RUPERTO FAIRBANKS TO YUN. ??Results read back by same. Performed By: #### L 501.5200 #### [facility] [address] [place], [address] Lactate [Moles/Vol] 3.8 mmol/L Invalid Interpretation Code 0.0-2.0 [facility] Comment on above: Result Comment: Crit ical Result(s) Called at:03/21/2025-00:50 by: Dolores Wilcox.??Results read back by same. Performed By: #### L 300.3900, M200.1000, L503.6005, L100.0100, L501.4021, L300.4310, L500.4050 #### [facility] [address] [place], [address] Lactic acid measurementOrder ed By: Troy Akins on 03-21-2025 Lactate [Moles/Vol] 3.5 mmol/L Critically high 0.0-2.0 [facility] Comment on above: Critical Result(s) C alled to: Teo HERNANDEZ (U) by: Patricia Results read back by same. Legionella Antigen Urineon 0 03-21-2025 LEGU Legionella Antigen result interpretation: L pneumo Ag Ur Ql Negative Presumptive negative for Legionella pneumophila serogroup 1 antigen in urine, suggesting no recent or current infection. Legionella Ag, Urine Negative (See interpretation below) Normal [facility] Comment on above: Performed By: #### M 300.4600, M300.4500 ####[facility] [address] [place], [place], [address] Magnesiumon 03-21-2025 Magnesium [Mass/Vol] 2.2 mg/dL Normal 1.5-2.2 [facility] Comment on above: Performed By: #### L 503.5501 #### [facility] [address] [place], [address] Microbial respiratory cultur eOrdered By: Jose Douglas on 03-21-2025 Microorganism identified Cx Nom (Unsp spec) Presumptive C albicans Abnormal [facility] Strep pneumoniae Antig(UR,CS F)on 03-21-2025 STPAG URINE INTERPRETATION Positive Urine Positive for pneumococcal pneumonia. Strep pneumo Test Urine POSITIVE for pneumococcal pneumonia.A Streptococcus pneumonia Ag Normal [facility] Comment on above: Performed By: #### M 300.4600, M300.4500 ####[facility] [address] [place], [place], [id number] Type AND Screenon 03-21-2025 Ab SCREEN GEL Positive Normal [facility] Comment on above: Order Comment: CMV N EG? NNumber of units to transfuse: 1Is pt's Hgb is = to 7.0 mg/dl or Hct </= 21%? YReason for Ordering Blood: ChronicAre the blood/blood products to be transfused? YIs the patient having/had surgery? NWkatya Cordova Performed By: #### B RC, BTS, OUQT5826, BAGK ####[facility] [address] [place], [address] 12 Lead EKGon 03-20-2025 12 Lead EKG [facility] Cardiovascular Services [address] [place] [address] 12 Lead EKG 03/20/25 1719 MR#: [id number] Acct: [id number] Name: AISHA HA Rep #: [id number] : 1965 60 From: Luiz Weber MD Attending Dr: Dr. Troy Akins MD Status: ADM IN Ordering Dr: Bradley Pichardo DO Date: 03/20/25 Location: [facility] Sex: F C Admitted: 03/20/25 Test Reason [...] ischemia Abnormal ECG Confirmed by Luiz Weber ([id number]), city editor HELDAIO MARIN ([id number]) on 03/24/2025 10:40:48 AM Referred By: SELINA/VIVEK Confirmed By: Luiz Weber 03/24/25 1040 Date uLiz Weber MD CC: Dr. Geovani Gay MD; Dr. Troy Akins MD; Dr. Bradley Pichardo DO Signed Normal [facility] 36on 03-20-2025 36 S: Patient's nicolas Merchant [...] adult drive. Will plan to report to [place] ED. Advised to have her use albuterol and/or Duo neb as ordered IGNACIA. Patient instructed to call back with new or worsening symptoms. Patient understands care advice. Reason for Disposition MODERATE difficulty breathing (e.g., speaks in phrases, SOB even at rest, pulse 100-120) of new-onset or worse than normal Protocols used: Breathing Tnbgeglafg-XATCW-HK Normal [facility] Absolute lymphocyte countOrd ered By: Bradley Pichardo on 03-20-2025 Lymphocytes Auto (Unsp spec) [#/Vol] 2.10 10*3/uL 0.83-4.51 [facility] Absolute neutrophil countOrd ered By: Bradley Pichardo on 03-20-2025 Neutrophils (Bld) [#/Vol] 16.4 10*3/uL High 2.0-7.7 [facility] Activated partial thrombopla stin time (aPTT) in platelet poor plasma by coagulation aOrdered By: Bradley Pichardo on 03-20-2025 aPTT Coag (PPP) [Time] 42.5 s High 24.1-36.2 [facility] Ammoniaon 03-20-2025 Ammonia (P) [Moles/Vol] 32.4 umol/L Normal - [facility] Comment on above: Performed By: #### L 503.5510 #### [facility] [address] [place], [place], [id number] Anion gap in Serum or Plasma Ordered By: Bradley Pichardo on 03-20-2025 Anion gap [Moles/Vol] 14 mmol/L 5-15 [facility] Assessment of wrist artery p atency prior to arterial punctureOrdered By: Bradley Pichardo on 03-20-2025 Arterial patency Wrist artery --pre arterial puncture Positive [facility] Automated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 count Ordered By: Bradley Pichardo on 03-20-2025 WBC (Bld) [#/Vol] 20.1 10*3/uL High 4.4-11.0 [facility] White blood cell countOrdere d By: Bradley Pichardo on 03-20-2025 White blood cell count 0 SEEN /hpf 0-5 [facility] Office Visiton 03-04-2025 Follow-up visit [id number] Aisha Ha 1965 F Date Provider Department Center 03/04/2025 [id number]-EJRFTUGEOVANI GAYRASHELOneida FELIX [facility] Family History Problem Relation Age of Onset Heart attack Mother Arthritis Mother High Blood Pressure Mother Depression Mother Cervical cancer Mother 30 Substance Abuse Father Arthritis Father High Blood Pressure Father Diabetes Father Family Status - Relation Status Age at Mother Father Level of Service:13287 [place] OFFICE/OUTPATIENT ESTABLISHED MOD MDM 30 MIN Reason for Visit and Comments: COPD [313] Hyperlipidemia [182] Hypertension [201238] Vitamin D Deficiency [413] Seizures [97] Cirrhosis [239] Chronic Kidney Disease [176] Abnormal Sodium [590] Urinary Incontinence [349] Medication Check [3503445948] - 6 month Normal [facility] Progress Noteon 03-04-2025 Progress Note Stable, continue BuS par 10 mg 3 times a day, duloxetine 90 mg daily Normal [facility] Progress Note Controlled, continue atorvastatin 80 mg daily Normal [facility] Progress Note We have discussed smoking cessation multiple times and she gives no indication she is even interested in trying to quit. Normal [facility] Progress Note Stable, continue vitamin D 50,000 units every week Normal [facility] Progress Note Controlled, continue omeprazole 40 mg daily Normal [facility] Progress Note Stable, continue ondansetron 4 mg every 8 hours as needed or perphenazine 4 mg daily as needed. Normal [facility] Progress Note Blood pressure was initially elevated, recheck was normal. Continue amlodipine 10 mg daily lisinopril 20 mg twice a day, metoprolol 25 mg daily and spironolactone 25 mg daily Normal [facility] Progress Note Stable, continue Incruse Ellipta 1 puff daily, albuterol 2 puffs 4 times a day as needed, DuoNebs solution every 4 hours as needed. Normal [facility] Progress Note Stable, continue oxy gen at current settings. Normal [facility] Progress Note Controlled, continue carbamazepine XR 400 mg twice a day and Keppra 500 mg twice a day Normal [facility] Progress Note Patient verified by last name and date of . Normal [facility] Progress Note 03/04/2025 Aisha Ha (: [...] Geovani Gay MD 03/04/2025 3:18 PM Normal [facility] Office Visiton 02-18-2025 Follow-up visit [id number] Aisha Ha 1965 [facility] Provider Department [place] 02/18/2025 [id number]-ZMEMXSGEOVANI MIJARES [facility] Family History Problem Relation Age of Onset Heart attack Mother Arthritis Mother High Blood Pressure Mother Depression Mother Cervical cancer Mother 30 Substance Abuse Father Arthritis Father High Blood Pressure Father Diabetes Father Family Status - Relation Status Age at Mother Father Level of Service:89450 [place] OFFICE/OUTPATIENT ESTABLISHED [facility] 10 MIN Reason for Visit and Comments: Other [0] - Tongue is very painful for about a week Shortness of Breath [077252] - Worse this morning Cough [28] Normal [facility] Progress Noteon 02-18-2025 Progress Note Prescription for Mag ic mouthwash was given to the patient, she is also to get lysine and start taking that along with the Magic mouthwash that she will swish and swallow. Normal [facility] Progress Note Patient verified by last name and date of . Normal [facility] Progress Note 02/18/2025 Aisha Ha (: [...] Geovani Gay MD 02/18/2025 11:12 AM Normal [facility] 36on 02-17-2025 36 S: Patient spoke wit h [facility] nurse regarding tongue symptoms B: Onset of [...] present > 3 days Protocols used: Mouth Ohysgltd-RGYLP-CY, Mouth Epby-CFIKZ-BG Normal [facility] Office Visiton 02-06-2025 Follow-up visit [id number] Aisha Ha 1965 F Date Provider Department Center 02/06/2025 [id number]-YKGSBRGEOVANI GAY [facility] Family History Problem Relation Age of Onset Heart attack Mother Arthritis Mother High Blood Pressure Mother Depression Mother Cervical cancer Mother 30 Substance Abuse Father Arthritis Father High Blood Pressure Father Diabetes Father Family Status - Relation Status Age at Mother Father Level of Service:65561 [place] OFFICE/OUTPATIENT ESTABLISHED MOD MDM 30 MIN Reason for Visit and Comments: Supplies [707] - Need face to face visit to order incontinence supplies Orders [459] - Need script for parking placard [facility] Progress Noteon 02-06-2025 Progress Note Stable, fill out paperwork for incontinence supplies. [facility] Progress Note Stable, continue tramadol as needed. [facility] Progress Note Active, we will fill out paperwork that she can get incontinence supplies through her insurance. [facility] Progress Note Currently stable, continue albuterol, Incruse 1 puff daily and nebulizer with DuoNeb solution as needed. Continue oxygen at current level. [facility] Progress Note 02/06/2025 Aisha Ha (: 1965) [...] note. Geovani Gay MD 02/06/2025 3:[address] [facility] Progress Note Patient verified by last name and date of . [facility] 36on 01-28-2025 36 Prescription sent fo r nystatin swish and swallow follow directions [facility] 36 S: Patient spoke wit h [facility] nurse regarding tongue problem B: Onset of [...] mouth or on tongue Protocols used: Mouth Xcbmtpnk-WWMYA-JY [place] [address]on 01-22-2025 36 Notified patients who is someone we can speak to. [place] [address] Rx sent [place] [address] S: Patient spoke dao ORDOÑEZ nurse regarding [...] school, work, or sleep) Protocols used: Vaginal Xtlngtfh-[id number] 01-15-2025 36 Notified, no further questions. [place] [address] Rx sent [place] [address] Spoke to rojelio Leonard she is getting worse, and states she needs something else. She does not think that this is viral and is adamantly requesting Levaquin [address] 01-14-2025 36 If she took a full course of Augmentin without significant benefit that is a good indication that this is probably viral and needs to run its course. [place] [address] S: patient calling C AC d/t cough [...] present > 10 days Protocols used: Common Urxk[place] [address]on 01-13-2025 36 Rx sent. Follow up a s scheduled. [facility] 36 Prescription Request : Last medication check: 01/09/25 Last physical exam: 06/15/23 Next scheduled appointment: 03/04/25 Last date of refill on this medication 06/17/[address] [facility] 36on 01-10-2025 36 Faxed OV and demographics [facility] 36 Okay to send. [facility] 36 Ok to send? [facility] 36 Name of caller: Rajani guevara Contact phone number: [phone] Relationship to Patient: Roly Provider: Dr. Gay Practice: [facility] Chief Complaint/Reason for Call: Ara called and stated they received the nebulizer RX and they need chart notes and an updated demographic sheet faxed to [phone] [facility] please. Best time of day caller can be reached: any Patient advised that office/PCP has 24-48 business hours to return their call: Yes [address] 01-09-2025 36 S: Patient spoke wit h [facility] nurse regarding Cough and not feeling well [...] for Disposition Wheezing is present Protocols used: Fvqnf-NSTNV-PM [facility] Office Visiton 01-09-2025 Follow-up visit [id number] Aisha Ha 1965 F Date Provider Department Center 01/09/2025 [id number] [facility]ERMA [facility] Family History Problem Relation Age of Onset Heart attack Mother Arthritis Mother High Blood Pressure Mother Depression Mother Cervical cancer Mother 30 Substance Abuse Father Arthritis Father High Blood Pressure Father Diabetes Father Family Status - Relation Status Age at Mother Father Level of Service:01417 [place] OFFICE/OUTPATIENT ESTABLISHED MOD MDM 30 MIN Reason for Visit and Comments: Sinusitis [587037] - Ox Tank 2.5, Face, eyes, nose, coughing productive every time, Sinus symptoms started 2 weeks ago, unknown fever as she takes tylenol for pain in back. Normal [facility] Progress Noteon 01-09-2025 Progress Note Will treat for acute exacerbation with prednisone burst and taper. No acute distress. Normal [facility] Progress Note Will treat with antibiotics for bacterial sinusitis due to severity of symptoms and length of illness >7 days, not improving. Normal [facility] Progress Note Will treat for COPD exacerbation. DuoNeb given in office with improved symptoms. Pulse ox 95% on 2.5 L nasal cannula after treatment. Continue Incruse Ellipta and albuterol MDI as directed. Will send for new prescription for nebulizer and supplies. Normal [facility] Progress Note 01/09/2025 Aisha Ha (: [...] Inhale 1 puff (62.5 mcg) daily., Starting [facility] 01/09/2025, Normal - predniSONE (Deltasone) 20 [...] Historical Provider, ergocalciferol (Vitamin D2) 1.25 MG (55257 UT) capsule Take 1 capsule (1.25 mg) by mouth 1 (one) time per week. 06/17/24 Yes Geovani Gay MD furosemide (Lasix) 20 MG tablet TAKE 40 MG (2 TABS) BY MOUTH SUN, , TH, SAT. TAKE 20 MG (1 TAB) BY MOUTH MON, , 12/16/24 Yes Elina Edwards, GARETH - KEMAR [place] Ellipta 62.5 M (more content not included)... [address] 12-30-2024 36 No longer using this inhaler per her chart. [place] [address] Rx sent. Follow up a s scheduled. [place] [address] Prescription Request : Last medication check: 09/12/24 Last physical exam: 06/13/24 Next scheduled appointment: 03/04/25 Last date of refill on this medication 06/13/24 90 and 1 refill [place] [address] This was discontinue d 05/29/[address] 12-16-2024 36 Reviewed chart. Refi ll appropriate. RX sent. [place] [address] Prescription Request : Last medication check: 09/12/24 Last physical exam: 06/13/24 Next scheduled appointment: 03/04/25 Last date of refill on this medication 08/22/[address] 12-12-2024 36 Reviewed chart. Refi ll appropriate. RX sent. [place] [address] Prescription Request : Last medication check: 09/12/24 Last physical exam: 06/13/24 Next scheduled appointment: 03/04/25 Last date of refill on this medication 06/13/24 18g [address] 11-29-2024 36 Rx sent. Follow up a s scheduled. [place] [address] Prescription Request : Last medication check: 09/12/24 Last physical exam: 06/13/24 Next scheduled appointment: 03/04/25 Last date of refill on this medication 06/13/24 90 and [address] 11-11-2024 36 Rx sent. Follow up a s scheduled. [address] 11-08-2024 36 Medication name: spironolactone (Aldactone) [...] prior to picking up the medication: Yes [address] 11-04-2024 Reviewed chart. Refi ll appropriate. RX sent. [place] [address] Prescription Request : Last medication check: 09-12-24 Last physical exam: 06-15-23 Next scheduled appointment: 03-04-25 Last date of refill on this medication 01/29/[address] 10-28-2024 Prescription Request : Last medication check: 09-12-24 Last physical exam: 06-15-23 Next scheduled appointment: 03-04-25 Last date of refill on this medication 01-29-[address] 10-22-2024 Reviewed chart. Refi ll appropriate. RX sent. [place] [address] Prescription Request : Last medication check: 09/12/24 Last physical exam: 06/15/23 Next scheduled appointment: 03/04/25 Last date of refill on this medication 06/13/24 30each and [address] 10-21-2024 Reviewed chart. Refi ll appropriate. RX sent. [place] [address] Prescription Request : Last medication check: 09/12/24 Last physical exam: 06/13/24 Next scheduled appointment: 03/04/25 Last date of refill on this medication 06/13/24 90 and [address] 10-10-2024 36 Spoke to Nataly from [facility]. Relayed patients phone number. [place] [address] Okay, thank you [address] 10-09-2024 36 Name of Caller: Nataly from [facility] Contact Reason: Nataly was calling to request an updated demographics page for Aisha, she states the last phone number that she had for the patient was in a half-way. She is requesting a call back. Office Name: [facility] 36on 09-16-20[address] [facility] 36on 09-13-2024 36 ----- Message from Geovani Gay MD sent at 09/13/2024 6:52 AM EST ----- Blood sugar is good, chemistry shows good kidney function sodium is significantly improved although still low. Left a message to return call. [facility] Office Visiton 09-12-2024 Follow-up visit [id number] Aisha Ha Emma 1965 F Date Provider Department Center 09/12/2024 [id number] GAY [facility] Family History Problem Relation Age of Onset Heart attack Mother Arthritis Mother High Blood Pressure Mother Depression Mother Cervical cancer Mother 30 Substance Abuse Father Arthritis Father High Blood Pressure Father Diabetes Father Family Status - Relation Status Age at Mother Father Level of Service:60294 [place] OFFICE/OUTPATIENT ESTABLISHED MOD MDM 30 MIN Reason for Visit and Comments: COPD [313] Hypertension [062025] Hyperlipidemia [182] Cirrhosis [239] Vitamin D Deficiency [413] Seizures [97] Medication Check [4429084013] - 3 month Health Maintenance [872] - Lung ca screen- refuse Flu vaccine- agree 4th covid vaccine- not done [facility] Progress Noteon 09-12-2024 Progress Note Stable, recheck jodie vazquez today. [facility] Progress Note Controlled, continue atorvastatin [address] [facility] Progress Note Controlled, continue omeprazole [address] [facility] Progress Note Controlled, continue amlodipine 10 mg daily and metoprolol [address] [facility] Progress Note Stable on 2 L of oxygen [facility] Progress Note Stable, continue oxy gen and continue Incruse Ellipta 1 puff daily and albuterol as needed. [facility] Progress Note Stable, currently no wheezing. [facility] Progress Note Stable, continue Kep pra 500 mg 2 twice a day and Tegretol 200 mg 2 twice a day. [facility] Progress Note Patient was verified by name and . After obtaining consent, and per orders of Dr. Gay, injection of Influenza given in right deltoid by Jenelle Garcia after cleansing site with alcohol pad. Patient tolerated well. [facility] Progress Note Patient verified by last name and date of . [facility] Progress Note 09/12/2024 Aisha Ha (: 1965) [...] note. Geovani Gay MD 09/12/2024 12:[address] [facility] 36on 08-22-2024 36 Prescription Request : Last medication check: 08/14/24 Last physical exam: 06/15/23 Next scheduled appointment: 09/12/24 Last date of refill on this medication 06/13/24 Pharmacy requesting [address] [facility] DBT Breast - bilateral scree carlos 08-19-2024 [...] Electronically Signed Date/Time: 08/19/2024 11:55 AM EDT [facility] [employer] Patient Name: AISHA HA : 1965 Exam Date/Time: 08/19/2024 10:56 Procedure: BI MAMMOGRAM SCREENING TOMOSYNTHESIS BILATERAL Ordering Provider: GAY DARRELL Reason For Exam: This exam was performed at: [place] [address] PATIENT CANCER HISTORY: No Personal History of Cancer FAMILY CANCER HISTORY: No Family History of Cancer Image views: 2D Bilateral CC and MLO views were acquired. 3D Bilateral CC and MLO views were acquired. Images were reviewed with CAD. Markings on images: BB's = Nipples; skin lesions [place] = Palpable Line = Scar COMPARISON: 07/08/2022, 08/17/2023 TISSUE DENSITY: BIRADS B - There are scattered areas of fibroglandular density. FINDINGS: No suspicious masses, architectural distortions or suspiciously clustered microcalcifications are identified. There is no evidence of skin thickening or nipple retraction. There are no significant changes when compared with prior studies. [facility] [employer] Kelsey Santacruz MD - 08/19/2024 Patient Name: AISHA HA : 1965 Exam Date/Time: 08/19/2024 10:56 Procedure: BI MAMMOGRAM SCREENING TOMOSYNTHESIS BILATERAL Ordering Provider: GAY DARRELL Reason For Exam: This exam was performed at: [facility] [address] [place] [address] PATIENT CANCER HISTORY: No Personal History of Cancer FAMILY CANCER HISTORY: No Family History of Cancer Image views: 2D Bilateral CC and MLO views were acquired. 3D Bilateral CC and MLO views were acquired. Images were reviewed with CAD. Markings on images: BB's = Nipples; skin lesions [place] = Palpable Line = Scar COMPARISON: 07/08/2022, [...] Electronically Signed Date/Time: 08/19/2024 11:55 AM EDT [facility] [employer] Radiology Study observation (narrative) [facility] DBT Breast - bilateral scree ningOrdered By: Kelsey Santacruz on 08-19-2024 [employer] Work Phone: AMB POC COVID-19 COVon 08-14 SARS-CoV-2 (COVID-19) RNA SRAVANI+non-probe Ql (Nph) Negative Negative [facility] AMB POC RAPID INFLUENZA DNA/ RNAon 08-14-2024 [facility] Office Visiton 08-14-2024 Follow-up visit [id number] Aisha Ha 1965 F Date Provider Department Center 08/14/2024 [id number]-LWERBLINDA GONZALES [facility] [place] [place] Family History Problem Relation Age of Onset Heart attack Mother Arthritis Mother High Blood Pressure Mother Depression Mother Cervical cancer Mother 30 Substance Abuse Father Arthritis Father High Blood Pressure Father Diabetes Father Family Status - Relation Status Age at Mother Father Level of Service:94330 [place] OFFICE/OUTPATIENT ESTABLISHED LOW MDM 20 MIN Reason for Visit and Comments: URI [115] - Has had nasal congestion, a cough, dizziness, headache, and SOB. States that she hasn't been coughing as much until now has progressively gotten worse. Unaware if she has had a fever but has been taking tylenol due to her headache, did take a tylenol this morning. Normal [facility] Progress Noteon 08-14-2024 Progress Note Patient verified by last name and . Normal [facility] Progress Note 08/14/2024 Aisha Ha (: [...] Turbinates: Swollen. Left Turbinates: Swollen. Mouth/Throat: Lips: [place]. Mouth: Mucous membranes are moist. Pharynx: Oropharynx [...] APRN - KEMAR 08/14/2024 2:50 PM Normal [facility] Absolute lymphocyte countOrd ered By: Elina Thorpe on 01-16-2023 Lymphocytes Auto (Unsp spec) [#/Vol] 1.81 10*3/uL 0.83-4.51 [facility] Atypical perinuclear antineu trophil cytoplasmic antibodies measurementOrdered By: Elina Thorpe on 01-16-2023 Neutrophil cytoplasmic Ab.perinuclear.atypical IF (S) [Titer] <1:20 titer Neg:<1:20 [facility] Comment on above: The atypical pANCA p attern has been observed in asignificant percentage of patients with ulcerative colitis,primary sclerosing cholangitis and autoimmune hepatitis. Basophil percentageOrdered B y: Elina Thorpe on 01-16-2023 Ammonia (P) [Moles/Vol] 40.0 umol/L 11-32 [facility] Basophil percentage < 0.2 AI 0.0-0.9 [facility] Basophils/100 WBC (Bld) 0.8 % 0-1 [facility] Bilirubin [Mass/Vol] 0.50 mg/dL 0.20-1.00 [facility] Comment on above: For patients on eltr ombopag therapy, use of Dimension [place] TBIL is not recommended. Chloride [Moles/Vol] 96 mmol/L 98-107 [facility] Eosinophils/100 WBC (Bld) 1.0 % 0-5 [facility] Glucose [Mass/Vol] 78 mg/dL 74-106 [facility] LDH [Catalytic activity/Vol] 304 U/L 84-246 [facility] Neutrophils (Bld) [#/Vol] 3.7 10*3/uL 2.0-7.7 [facility] Neutrophils/100 WBC (Bld) 60.8 % 47-70 [facility] Potassium [Moles/Vol] 3.3 mmol/L 3.5-5.1 [facility] Protein [Mass/Vol] 7.7 g/dL 6.4-8.2 [facility] Sodium [Moles/Vol] 129 mmol/L 136-145 [facility] WBC (Bld) [#/Vol] 6.0 10*3/uL 4.4-11.0 [facility] Blood erythrocytes count (nu mber/volume)Ordered By: Elina Thorpe on 01-16-2023 RBC (Bld) [#/Vol] 3.76 10*6/uL 4.2-5.4 [facility] Blood hemoglobin measurement (mass/volume)Ordered By: Elina Thorpe on 01-16-2023 Hemoglobin (Bld) [Mass/Vol] 13.1 g/dL 12.0-15.0 [facility] Blood lymphocytes/100 leukoc ytesOrdered By: Elina Thorpe on 01-16-2023 Lymphocytes/100 WBC (Bld) 30.1 % 19-41 [facility] Blood monocytes/100 leukocyt esOrdered By: Elina Thorpe on 01-16-2023 Monocytes/100 WBC (Bld) 7.0 % 0-10 [facility] Blood platelet mean volumeOr dered By: Elina Thorpe on 01-16-2023 Platelet mean volume (Bld) [Entitic vol] 10.1 fL 6.2-12.0 [facility] Determination of erythrocyte mean corpuscular volume (MCV)Ordered By: Elina Thorpe on 01-16-2023 MCV (RBC) [Entitic vol] 101.1 fL 81-99 [facility] Erythrocyte sedimentation ra teOrdered By: Elina Thorpe on 01-16-2023 ESR (Bld) [Velocity] 69 mm/h 0-30 [facility] HIV 1 and HIV-2 antibody ass ay with HIV-1 p24 antigen detectionOrdered By: Elina Thorpe on 01-16-2023 HIV 1+2 Ab+HIV1 p24 Ag IA Ql Non-Reactive Nonreactive [facility] Hematocrit Auto (Bld) [Volum e fraction]Ordered By: Elina Thorpe on 01-16-2023 Hematocrit (Bld) [Volume fraction] 38.0 % 37-47 [facility] INR in Blood by Coagulation assayOrdered By: Elina Thorpe on 01-16-2023 INR Coag (Bld) [Relative time] 1.1 {INR} [facility] Laboratory - Chemistry and C hemistry - challengeOrdered By: Elina Thorpe on 01-16-2023 ALP [Catalytic activity/Vol] 228 U/L 45-117 [facility] ALT [Catalytic activity/Vol] 65 U/L 13-56 [facility] CO2 [Moles/Vol] 27.0 mmol/L 21.0-32.0 [facility] Globulin (S) [Mass/Vol] 4.8 g/dL 2.2-4.2 [facility] Urea nitrogen/Creatinine [Mass ratio] 13.6 mg/mg 10-20 [facility] Laboratory - CoagulationOrde red By: lEina Thorpe on 01-16-2023 PT Coag (PPP) [Time] 13.9 s 11.7-14.9 [facility] Laboratory - Hematology and Cell countsOrdered By: Elina Thorpe on 01-16-2023 Erythrocyte distribution width (RBC) [Entitic vol] 61.1 fL 35.1-43.9 [facility] Erythrocyte distribution width (RBC) [Ratio] 16.2 % 11.6-14.6 [facility] Immature granulocytes/100 WBC (Bld) 0.300 % 0.0-0.9 [facility] Comment on above: IG% - Immature Granu locytes (promyelocytes, myelocytes and metamyelocytes) > 1% indicates that a LEFT SHIFT is Present. MCH (RBC) [Entitic mass] 34.8 pg 27.0-32.0 [facility] Nucleated RBC/100 WBC (Bld) [Ratio] 0 % 0-5 [facility] MCHC Auto (RBC) [Mass/Vol]Or dered By: Elina Thorpe on 01-16-2023 MCHC (RBC) [Mass/Vol] 34.5 g/dL 32-36 [facility] No Panel InformationOrdered By: Elina Thorpe on 01-16-2023 Centromere B Antibody <0.2 AI 0.0-0.9 [facility] Ceruloplasmin 30.6 mg/dL 19.0-39.0 [facility] Estimated GFR (MDRD) Amer 231 mL/min >60 [facility] Comment on above: GFR Calc Estimated GFR (MDRD) Non-Af Amer 191 mL/min >60 [facility] Comment on above: Non- GFR Calc Haptoglobin 117 mg/dL 33-346 [facility] Comment on above: Performed at: CB - [address] [id number] Director: Mariano Cheatham PhD, Phone: [phone] at: - Lab[address] [id number] Director: Isha Sandhu MD, Phone: [phone] Hepatitis A IgM Antibody Negative Negative [facility] Hepatitis B Core IgM Antibody Negative Negative [facility] Hepatitis C Antibody (EIA) Non-Reactive Non Reactive [facility] Hepatitis C Antibody Comment Comment . [facility] Comment on above: Not infected with HC V unless early or acute infection issuspected (which may be delayed in an immunocompromisedindividual), or other evidence exists to indicate HCVinfection. [employer] [employer] Antibody 0.8 AI 0.0-0.9 [facility] Platelets bldOrdered By: Cecilia Thorpe on 01-16-2023 Platelets (Bld) [#/Vol] 166 10*3/uL 150-450 [facility] Serum DNA double strand anti body assay (units/volume)Ordered By: Elina Thorpe on 01-16-2023 DNA double strand Ab Qn (S) 13 [IU]/mL 0-9 [facility] Comment on above: Negative <5 Equivoca l 5 - 9 Positive >9 Serum Ana-1 antibody assay (u nits/volume)Ordered By: Elina Thorpe on 01-16-2023 Ana-1 extractable nuclear Ab Qn (S) <0.2 AI 0.0-0.9 [facility] Serum Scl-70 extractable nuc lear antibody assay (units/volume)Ordered By: Elina Thorpe on 01-16-2023 SCL-70 extractable nuclear Ab Qn (S) <0.2 AI 0.0-0.9 [facility] Serum Irwin extractable nucl ear antibody detectionOrdered By: Elina Thorpe on 01-16-2023 Irwin extractable nuclear Ab Ql (S) <0.2 AI 0.0-0.9 [facility] Serum classic neutrophil cyt oplasmic antibody assay (units/volume)Ordered By: Elina Thorpe on 01-16-2023 Neutrophil cytoplasmic Ab.classic Qn (S) <1:20 titer Neg:<1:20 [facility] Serum mitochondria antibody detectionOrdered By: Elina Thorpe on 01-16-2023 Mitochondria Ab Ql (S) <20.0 Units 0.0-20.0 [facility] Comment on above: Negative 0.0 - 20.0 Equivocal 20.1 - 24.9 Positive >24.9Mitochondrial (M2) Antibodies are found in 90-96% ofpatients with primary biliary cirrhosis.Performed at: [facility] [address] [id number] Director: Mariano Cheatham PhD, Phone: [phone] Serum or plasma C reactive p rotein measurement (mass/volume)Ordered By: Elina Thorpe on 01-16-2023 CRP [Mass/Vol] mg/L 0.0-3.0 [facility] Comment on above: C-Reactive Protein ( CRP) provides useful information for thediagnosis, therapy and monitoring of inflammatory processesand associated diseases. For the evaluation of Relative Riskfor Cardiovascular Disease, a High Sensitivity CRP (HSCRP)should be ordered. Serum or plasma actin IgG an tibody assay (units/volume)Ordered By: Elina Thorpe on 01-16-2023 Actin IgG Qn 24 Units 0-19 [facility] Comment on above: Negative 0 - 19 Weak positive 20 - 30 Moderate to strong positive >30 Actin Antibodies are found in 52-85% of patients with autoimmune hepatitis or chronic active hepatitis and in 22% of patients with primary biliary cirrhosis. Serum or plasma albumin ceasar urement (mass/volume)Ordered By: Elina Thorpe on 01-16-2023 Albumin [Mass/Vol] 2.9 g/dL 3.2-5.0 [facility] Serum or plasma albumin/glob ulin mass ratioOrdered By: Elina Thorpe on 01-16-2023 Albumin/Globulin [Mass ratio] 0.6 {ratio} 0.9-2.4 [facility] Serum or plasma [id number]-2-[id number] protein tumor marker measurement (units/volume)Ordered By: Elina Thorpe on 01-16-2023 AFP.tumor marker Qn 3.7 ng/mL 0.0-9.2 [facility] Comment on above: [employer] El ectrochemiluminescence Immunoassay(ECLIA)Values obtained with different assay methods or kits cannotbe used interchangeably. Results cannot be interpreted asabsolute evidence of the presence or absence of malignantdisease.This test is not interpretable in females. Serum or plasma angiotensin converting enzyme measurement (enzymatic activity/volume)Ordered By: Elina Thorpe on 01-16-2023 Angiotensin converting enzyme [Catalytic activity/Vol] U/L 14-82 [facility] Serum or plasma calcium ceasar urement (mass/volume)Ordered By: Elina Thorpe on 01-16-2023 Calcium [Mass/Vol] 8.7 mg/dL 8.5-10.1 [facility] Serum or plasma creatinine m easurement (mass/volume)Ordered By: Elina Thorpe on 01-16-2023 Creatinine [Mass/Vol] 0.37 mg/dL 0.55-1.02 [facility] Comment on above: The validity of the calculated GFR & GFRAA in patients over 70 years has not been determined. Clinical correlation is essential. Serum or plasma ferritin misael surement (mass/volume)Ordered By: Elina Thorpe on 01-16-2023 Ferritin [Mass/Vol] 44 ng/mL 8252 [facility] Serum or plasma hepatitis B virus surface antigen detection by immunoassayOrdered By: Elina Thorpe on 01-16-2023 HBV surface Ag IA Ql Negative Negative [facility] Serum or plasma urea nitroge n measurement (mass/volume)Ordered By: Elina Thorpe on 01-16-2023 Urea nitrogen [Mass/Vol] 5 mg/dL 7-18 [facility] Serum perinuclear neutrophil cytoplasmic antibody titer by immunofluorescenceOrdered By: Elina Thorpe on 01-16-2023 Neutrophil cytoplasmic Ab.perinuclear IF (S) [Titer] <1:20 titer Neg:<1:20 [facility] Comment on above: The presence of posi tive fluorescence exhibiting P-ANCA orC-ANCA patterns alone is not specific for the diagnosis ofWegener's Granulomatosis (WG) or microscopic polyangiitis.Decisions about treatment should not be based solely onANCA IFA results. The [employer] ANCA Group Consensusrecommends follow up testing of positive sera with both CA-3 and MPO-ANCA enzyme immunoassays. As many as 5% serumsamples are positive only by EIA. Ref. AM J Clin Txutgq3689;111:507-513. Thin prep Papanicolaou smear with manual screeningOrdered By: Elina Thorpe on 01-16-2023 Thin prep Papanicolaou smear with manual screening 268 U/L 15-37 [facility] Thin prep Papanicolaou smear with manual screening 6 5-15 [facility] Thin prep Papanicolaou smear with manual screening 157 ug/dL 80-158 [facility] Comment on above: Detection Limit = 5 Whole blood hemoglobin A1c/t otal hemoglobin ratio (mass fraction)Ordered By: Elina Thorpe on 01-16-2023 HbA1c (Bld) [Mass fraction] 5.0 % 3.8-5.6 [facility] Comment on above: Normal < 5.7 % Predi abetic 5.7 - 6.4 % Diabetic >or= 6.5 % Please note range changes. CT Chest for screening [facility] ntraston 11-16-2022 1. Multiple groundgl ass and [...] Sullivan Electronically Signed Date/Time: 11/16/2022 4:18 PM [facility] Band Digital RADIOLOGY SYSTEM Patient Name: AISHA HA Exam [...] spine fixation hardware. No suspicious axillary adenopathy. [facility] RADIOLOGY SYSTEM Radiology Study observation (narrative) [facility] alth CT Chest for screening WO co ntrastOrdered By: Eloise Sullivan on 11-16-2022 [facility] [employer] Work Phone: MG Breast Tomosynthesis Scr Blon 07-08-2022 MG Breast Tomosynthesis Scr Bl Patient Name: AISHA HA Mammography ACCESSION EXAM DATE/TIME PROCEDURE ORDERING PROVIDER [id number] 07/08/2022 10:48 EDT MG Breast Tomosynthesis MD VICTOR HUGO, GEOVANI BI Scr [employer] CPT code 47431 [id number] Reason For Exam (MG Breast Tomosynthesis BI [...] MG breast tomosynthesis bl scr performed at [facility]. July 06, 2020, bilateral MG breast tomosynthesis bl scr performed at [facility]. July 03, 2019, bilateral MG breast tomosynthesis bl scr performed at [facility]. TISSUE DENSITY: BIRADS [...] images: BB's = Nipples; skin lesions [place] = Palpable Line = Scar 2D digital [...] Signed by: MD MATHUR ANN C. Normal [facility] Isaac Digital Screen Chio larios 07-08-2022 Patient Name: AISHA HA Mammography ACCESSION EXAM DATE/TIME PROCEDURE ORDERING PROVIDER [id number] 07/08/2022 10:48 EDT MG Breast Tomosynthesis MD VICTOR HUGO, GEOVANI BI Scr GERRY CPT code 30400 [id number] Reason For Exam (MG Breast Tomosynthesis BI [...] MG breast tomosynthesis bl scr performed at [facility]. July 06, 2020, bilateral MG breast tomosynthesis bl scr performed at [facility]. July 03, 2019, bilateral MG breast tomosynthesis bl scr performed at [facility]. TISSUE DENSITY: BIRADS [...] images: BB's = Nipples; skin lesions [place] = Palpable Line = Scar 2D digital [...] am Signed by: MD SUSHMA, MARKEL Linton [facility] Markel Mathur MD - 07/08/2022 Patient Name: AISHA HA Mammography ACCESSION EXAM DATE/TIME PROCEDURE ORDERING PROVIDER [id number] 07/08/2022 10:48 EDT MG Breast Tomosynthesis MD VICTOR HUGO, GEOVANI BI Scr [employer] CPT code 82973 [id number] Reason For Exam (MG Breast Tomosynthesis BI [...] MG breast tomosynthesis bl scr performed at [facility]. July 06, 2020, bilateral MG breast tomosynthesis bl scr performed at [facility]. July 03, 2019, bilateral MG breast tomosynthesis bl scr performed at [facility]. TISSUE DENSITY: BIRADS B - [...] images: BB's = Nipples; skin lesions [place] = Palpable Line = Scar 2D digital [...] am Signed by: MD SUSHMA, MARKEL Linton [facility] Work Phone: Radiology Study observation (narrative) [facility] Work Phone: [facility] Isaac Digital Screen Bila teralOrdered By: Markel Mathur on 07-08-[address] [facility] [address] Low Dose Lung Diagnostico n 05-11-2022 CT Low Dose Lung Diagnostic Patient Name: AISHA HA Computed Tomography ACCESSION EXAM DATE/TIME PROCEDURE ORDERING PROVIDER [id number] 05/11/2022 11:[address] Low Dose Thorax w/o KEMAR GONZALES, LINDA S Cont CPT code 82846 Reason For Exam (CT Low Dose Thorax [...] Transcribed Date and Time: 05/13/2022 2:47 Normal [facility] OPERATIVE REPORTon Ordered by an unspecified provider. [facility] Op Noteon 04-27-2022 Op Note Date: [...] in stable condition. All counts were correct [facility] Surgical Pathologyon 022 Surgical Pathology [id number] [facility] DEPARTMENT [facility] PATHOLOGY AND LABORATORY MEDICINE [address] [facility] [place] [address] Fax - FINAL SURGICAL PATHOLOGY REPORT ___ NAME: AISHA HA Serg [id number] : 1965 57 Y F YING NO.: [id number] LOCATION: [facility] SDS 01 PROCEDURE 04/27/2022 DATE: [...] wall measures 1.0 cm in average thickness. Director Pediatric sections are submitted in one cassette. YRS/JAM Disclaimer: The following statement applies to all immunohistochemistry, in situ hybridization, molecular studies, and immunofluorescence testing. The use of one or more reagents in the above tests is regulated as an analyte specific reagent (ASR). These tests were developed and their performance characteristics determined by the clinical laboratories of [facility]. They have not been cleared by the [...] negativity on decalcified specimens. Case reviewed at [place] [address] [place] [address]. DEPARTMENT OF PATHOLOGY AND LABORATORY MEDICINE [place], [place] [address] [email or web address] Normal [facility] Levetiracetamon 04-20-2022 levETIRAcetam [Mass/Vol] 23 ug/mL Normal 10-40 [facility] Comment on above: Result Comment: INTE RPRETIVE INFORMATION: Keppra (Levetiracetam) Therapeutic Range: 10-40 ug/mL Toxic: Not well Established Pharmacokinetics of levetiracetam are affected by renal function. Adverse effects may include somnolence, weakness, headache and vomiting. This levetiracetam (Keppra) immunoassay uses the [employer] reagents, which has known cross-reactivity with the drug brivaracetam (Briviact) and may report inaccurate results. Patients transitioning from levetiracetam to brivaracetam or those who are using both medications should not monitor drug concentrations with the [employer] assay. These patients should be monitored using a validated chromatographic methodology that distinguishes between drugs to determine drug concentrations. Performed By: [facility] [address] [place] [address] Anesthesiology Physician: Shonna Ruff MD Performed By: #### L SNOW #### The performing lab is in the report. #### HEMOG, CMP3M, MG3, PT #### [facility] [address] [place] [address] CBCon 04-18-2022 Interpretation and review of laboratory results Abnormal [facility] MCHC (RBC) [Mass/Vol] 34.3 % 32.0 - 36.0 % [facility] Platelet distribution width (Bld) [Ratio] 15.4 % High 11.5 - 14.5 % [facility] Test Performed by [facility], [address] [place], [place] [address] [facility] Comp Panel with Mg Reflexon 04-18-2022 ALP [Catalytic activity/Vol] 217 U/L High 38-126 [facility] Comment on above: Performed By: #### L SNOW #### The performing lab is in the report. #### HEMOG, CMP3M, MG3, PT #### [facility] [address] [place] [address] ALT [Catalytic activity/Vol] 77 U/L High 0-34 [facility] Comment on above: Result Comment: The ALT test is performed by an updated assay method. Please note that the reference intervals have been changed and are now sex specific. Performed By: #### L SNOW #### The performing lab is in the report. #### HEMOG, CMP3M, MG3, PT #### [facility] [address] [place] [address] Anion gap [Moles/Vol] 5 mmol/L Normal 3-13 [facility] Comment on above: Performed By: #### L SNOW #### The performing lab is in the report. #### HEMOG, CMP3M, MG3, PT #### [facility] [address] [place] [address] AST [Catalytic activity/Vol] 119 U/L High 15-46 [facility] Comment on above: Performed By: #### L SNOW #### The performing lab is in the report. #### HEMOG, CMP3M, MG3, PT #### [facility] [address] [place] [address] Bilirubin [Mass/Vol] 0.7 mg/dL Normal 0.2-1.3 [facility] Comment on above: Performed By: #### L SNOW #### The performing lab is in the report. #### HEMOG, CMP3M, MG3, PT #### [facility] [address] [place] [address] Calcium [Mass/Vol] 9.5 mg/dL Normal 8.4-10.4 [facility] Comment on above: Performed By: #### L SNOW #### The performing lab is in the report. #### HEMOG, CMP3M, MG3, PT #### [facility] [address] [place] [address] CO2 [Moles/Vol] 30 mmol/L Normal 22-30 [facility] Comment on above: Performed By: #### L SNOW #### The performing lab is in the report. #### HEMOG, CMP3M, MG3, PT #### [facility] [address] [place] [address] Glucose [Mass/Vol] 114 mg/dL High 70-100 [facility] Comment on above: Performed By: #### L SNOW #### The performing lab is in the report. #### HEMOG, CMP3M, MG3, PT #### [facility] [address] [place] [address] Protein [Mass/Vol] 8.4 g/dL High 6.3-8.2 [facility] Comment on above: Performed By: #### L SNOW #### The performing lab is in the report. #### HEMOG, CMP3M, MG3, PT #### [facility] [address] [place] [address] Urea nitrogen [Mass/Vol] mg/dL Low 9-20 [facility] Comment on above: Performed By: #### L SNOW #### The performing lab is in the report. #### HEMOG CMP3M, MG3, PT #### [facility] [address] [place] [address] Creatinine [Mass/Vol] 0.43 mg/dL Low 0.52-1.25 [facility] Comment on above: Performed By: #### L SNOW #### The performing lab is in the report. #### HEMJAMES CMP3M, MG3, PT #### [facility] [address] [place] [address] eGFR OTHER > 90.0 Normal >60 [facility] Comment on above: Result Comment: KDIG O [...] the report. #### HEMOGHATTIE3M, MG3, PT #### [facility] [address] [place] [address] GFR/1.73 sq M.predicted among blacks MDRD (S/P/Bld) [Vol rate/Area] mL/min/{1.73_m2} Normal >60 [facility] Comment on above: Performed By: #### L SNOW #### The performing lab is in the report. #### HEMOG, CMP3M, MG3, PT #### [facility] [address] [place] [address] Albumin [Mass/Vol] 4.3 g/dL Normal 3.5-5.0 [facility] Comment on above: Performed By: #### L SNOW #### The performing lab is in the report. #### HEMOG, CMP3M, MG3, PT #### [facility] [address] [place] [address] Chloride [Moles/Vol] 100 mmol/L Normal 98-107 [facility] Comment on above: Performed By: #### L SNOW #### The performing lab is in the report. #### HEMOG, CMP3M, MG3, PT #### [facility] [address] [place] [address] Potassium [Moles/Vol] 3.3 mmol/L Low 3.5-5.1 [facility] Comment on above: Performed By: #### L SNOW #### The performing lab is in the report. #### HEMOG, CMP3M, MG3, PT #### [facility] [address] [place] [address] Sodium [Moles/Vol] 136 mmol/L Normal 135-145 [facility] Comment on above: Performed By: #### L SNOW #### The performing lab is in the report. #### HEMOG, CMP3M, MG3, PT #### [facility] [address] [place] [address] Comprehensive Metabolic Pane l w/ Reflex to MGon 04-18-2022 Albumin [Mass/Vol] 4.3 g/dL 3.5 - 5.0 g/dL [facility]P (Bld) [Catalytic activity/Vol] 217 U/L High 38 - 126 U/L [facility] ALT [Catalytic activity/Vol] 77 U/L High 0 - 34 U/L [facility] Comment on above: The ALT test [...] - 1.25 mg/dL [facility] EGFR IF NonAfrican Swiss >90.0 >60 mL/min [facility] Comment on above: [...] - 20 mg/dL [facility] Test Performed by [facility], [address] [place], [place] [address] [facility] Hem[facility]on 04-18-2022 Erythrocyte distribution width (RBC) [Ratio] 15.4 % High 11.5-14.5 [facility] Comment on above: Performed By: #### L SNOW #### The performing lab is in the report. #### HEMOG CMP3M, MG3, PT #### [facility] [address] [place] [address] MCHC 34.3 % Normal 32.0-36.0 [facility] Comment on above: Performed By: #### L SNOW #### The performing lab is in the report. #### HEMJAMES CMP3M, MG3, PT #### [facility] [address] [place] [address] Hematocrit (Bld) [Volume fraction] 37.6 % Normal 35.0-47.0 [facility] Comment on above: Performed By: #### L SNOW #### The performing lab is in the report. #### HEMOG CMP3M, MG3, PT #### [facility] [address] [place] [address] Hemoglobin (Bld) [Mass/Vol] 12.9 g/dL Normal 11.7-16.0 [facility] Comment on above: Performed By: #### L SNOW #### The performing lab is in the report. #### HEMOG CMP3M, MG3, PT #### [facility] [address] [place] [address] MCH (RBC) [Entitic mass] 36.2 pg High 26.0-34.0 [facility] Comment on above: Performed By: #### L SNOW #### The performing lab is in the report. #### HEMOG CMP3M, MG3, PT #### [facility] [address] [place] [address] MCV (RBC) [Entitic vol] 105.7 fL High 79.0-98.0 [facility] Comment on above: Performed By: #### L SNOW #### The performing lab is in the report. #### HEMOG, CMP3M, MG3, PT #### [facility] [address] [place] [address] Platelet mean volume (Bld) [Entitic vol] 7.7 fL Normal 7.4-12.4 [facility] Comment on above: MPV is a calculated measurement using platelet volume ratio. Result Comment: MPV is a calculated measurement using platelet volume ratio. Performed By: #### L SNOW #### The performing lab is in the report. #### HEMOG, CMP3M, MG3, PT #### [facility] [address] [place] [address] Platelets (Bld) [#/Vol] 176 10*3/uL Normal 140-440 [facility] Comment on above: Performed By: #### L SNOW #### The performing lab is in the report. #### HEMOG, CMP3M, MG3, PT #### [facility] [facility] [address] [place] [address] RBC (Bld) [#/Vol] 3.56 10*6/uL Low 3.80-5.20 [facility] Comment on above: Performed By: #### L SNOW #### The performing lab is in the report. #### HEMOG, CMP3M, MG3, PT #### [facility] [address] [place] [address] WBC (Bld) [#/Vol] 5.5 10*3/uL Normal 3.6-10.7 [facility] Comment on above: Performed By: #### L SNOW #### The performing lab is in the report. #### HEMOG, CMP3M, MG3, PT #### [facility] [address] [place] [address] Magnesiumon 04-18-2022 Magnesium [Mass/Vol] 1.7 mg/dL Normal 1.6-2.3 [facility] Comment on above: Performed By: #### L SNOW #### The performing lab is in the report. #### HEMOG, CMP3M, MG3, PT #### [facility] [address] [place] [address] Magnesium [Mass/Vol] 1.7 mg/dL 1.6 - 2 .3 mg/dL [facility] Test Performed by [facility], [address] [place], [place], [place] [address] [facility] Prothrombin Timeon INR 1.0 Normal 0.9-1.1 [facility] Comment on above: Result Comment: Stef mmended [...] report. #### HEMOG, CMP3M, MG3, PT #### [address] [place] [address] PT Coag (PPP) [Time] 11.1 s Normal 9.0-12.0 [facility] Comment on above: Result Comment: . Performed By: #### L SNOW #### The performing lab is in the report. #### HEMOG, CMP3M, MG3, PT #### [address] [place] [address] Protime-INRon 04-18-2022 INR Coag (Bld) [Relative time] 1.0 {INR} [facility] Comment on above: Recommended Anticoag ulant [...] s [facility] Comment on above: . Test Performed by [facility], [address] [place], [place], [place] [id number] [place] [address] LAB BASIA Basophil percentageon 2021 Bilirubin [Mass/Vol] 0.30 mg/dL 0.20-1.00 [facility] Work Phone: Comment on above: For patients on eltr ombopag therapy, use of Dimension [place] TBIL is not recommended. Chloride [Moles/Vol] 98 mmol/L 98-107 [facility] Work Phone: [phone] Glucose [Mass/Vol] 85 mg/dL 74-106 [facility] Work Phone: Comment on above: Please note revised GLUCOSE reference range effective 2017. Potassium [Moles/Vol] 4.0 mmol/L 3.5-5.1 [facility] Work Phone: [phone] Protein [Mass/Vol] 8.6 g/dL 6.4-8.2 [facility] Work Phone: [phone] Sodium [Moles/Vol] 134 mmol/L 136-145 [facility] Work Phone: [phone] WBC (Bld) [#/Vol] 7.5 10*3/uL 4.4-11.0 [facility] Work Phone: [phone] Blood erythrocytes count (nu mber/volume)on 10-28-2021 RBC (Bld) [#/Vol] 3.84 10*6/uL 4.2-5.4 [facility] Work Phone: [phone] Blood hemoglobin measurement (mass/volume)on 10-28-2021 Hemoglobin (Bld) [Mass/Vol] 13.4 g/dL 12.0-15.0 [facility] Work Phone: [phone] Blood platelet mean volumeon 10-28-2021 Platelet mean volume (Bld) [Entitic vol] 11.2 fL 6.2-12.0 [facility] Work Phone: [phone] Determination of erythrocyte mean corpuscular volume (MCV)on 10-28-2021 MCV (RBC) [Entitic vol] 107.0 fL 81-99 [facility] Work Phone: Direct bilirubinon Bilirubin.direct [Mass/Vol] 0.18 mg/dL 0.00-0.30 [facility] Work Phone: Hematocrit Auto (Bld) [Volum e fraction]on 10-28-2021 Hematocrit (Bld) [Volume fraction] 41.1 % 37-47 [facility] Work Phone: INR in Blood by Coagulation assayon 10-28-2021 INR Coag (Bld) [Relative time] 1.0 {INR} [facility] Work Phone: Laboratory - Chemistry and C hemistry - challengeon 10-28-2021 ALP [Catalytic activity/Vol] 118 U/L 45-117 [facility] Work Phone: ALT [Catalytic activity/Vol] 29 U/L 13-56 [facility] Work Phone: CO2 [Moles/Vol] 30.0 mmol/L 21.0-32.0 [facility] Work Phone: Globulin (S) [Mass/Vol] 5.2 g/dL 2.2-4.2 [facility] Work Phone: Urea nitrogen/Creatinine [Mass ratio] 8.9 mg/mg 10-20 [facility] Work Phone: Laboratory - Coagulationon 0 10-28-2021 aPTT Coag (Bld) [Time] 36.0 s 24.1-36.2 [facility] Work Phone: PT Coag (PPP) [Time] 12.8 s 11.7-14.9 [facility] Work Phone: Laboratory - Hematology and Cell countson 10-28-2021 Erythrocyte distribution width (RBC) [Entitic vol] 57.5 fL 35.1-43.9 [facility] Work Phone: Erythrocyte distribution width (RBC) [Ratio] 14.4 % 11.6-14.6 [facility] Work Phone: [phone] MCH (RBC) [Entitic mass] 34.9 pg 27.0-32.0 [facility] Work Phone: [phone] MCHC Auto (RBC) [Mass/Vol]on 10-28-2021 MCHC (RBC) [Mass/Vol] 32.6 g/dL 32-36 [facility] Work Phone: [phone] Panel Informationon 10-28 Estimated GFR (MDRD) Amer 185 mL/min >60 [facility] Work Phone: Comment on above: GFR Calc Estimated GFR (MDRD) Non-Af Amer 153 mL/min >60 [facility] Work Phone: Comment on above: Non- GFR Calc Platelets bldon 10-28-2021 Platelets (Bld) [#/Vol] 227 10*3/uL 150-450 [facility] Work Phone: [phone] Serum or plasma albumin ceasar urement (mass/volume)on 10-28-2021 Albumin [Mass/Vol] 3.4 g/dL 3.2-5.0 [facility] Work Phone: [phone] Serum or plasma calcium ceasar urement (mass/volume)on 10-28-2021 Calcium [Mass/Vol] 9.4 mg/dL 8.5-10.1 [facility] Work Phone: [phone] Serum or plasma creatinine m easurement (mass/volume)on 10-28-2021 Creatinine [Mass/Vol] 0.45 mg/dL 0.55-1.02 [facility] Work Phone: Comment on above: The validity of the calculated GFR & GFRAA in patients over 70 years has not been determined. Clinical correlation is essential. Serum or plasma urea nitroge n measurement (mass/volume)on 10-28-2021 Urea nitrogen [Mass/Vol] 4 mg/dL 7-18 [facility] Work Phone: [phone] Thin prep Papanicolaou smear with manual screeningon 10-28-2021 Thin prep Papanicolaou smear with manual screening 27 U/L 15-37 [facility] Work Phone: Thin prep Papanicolaou smear with manual screening 6 5-15 [facility] Work Phone: CT Low Dose Lung Diagnostico n 09-27-2021 CT Low Dose Lung Diagnostic Patient Name: AISHA HA Computed Tomography ACCESSION EXAM DATE/TIME PROCEDURE ORDERING PROVIDER [id number] 09/27/2021 14:[address] Low Dose Thorax w/o CHRISTIAN, RIDING TEACHER, LINDA S Cont CPT code 94512 Reason For Exam (CT Low Dose Thorax [...] Transcribed Date and Time: 09/29/2021 9:01 Normal [facility] DEMIAN ISAAC DIGITAL SCREEN BILA TERALOrdered By: Geovani Gay on 07-07-2021 Patient Name: AISHA HA Mammography ACCESSION EXAM DATE/TIME PROCEDURE ORDERING PROVIDER [id number] 07/07/2021 10:47 EDT MG Breast Tomosynthesis MD GAY DARRELL BI Scr THOROFARE CPT code 17752 39298 Reason For Exam (MG Breast Tomosynthesis BI [...] MG breast tomosynthesis bl scr performed at [facility]. July 03, 2019, bilateral MG breast tomosynthesis bl scr performed at [facility]. July 02, 2018, bilateral MG breast tomosynthesis bl scr performed at [facility]. TISSUE DENSITY: BIRADS [...] images: BB's = Nipples; skin lesions [place] = Palpable Line = Scar 2D digital [...] Mammography ACCESSION EXAM DATE/TIME PROCEDURE ORDERING PROVIDER [id number] 07/07/2021 10:47 EDT MG Breast Tomosynthesis MD VICTOR HUGO, GEOVANI BI Scr GERRY CPT code 70590 07754 Reason For Exam (MG Breast Tomosynthesis BI [...] MG breast tomosynthesis bl scr performed at [facility]. July 03, 2019, bilateral MG breast tomosynthesis bl scr performed at [facility]. July 02, 2018, bilateral MG breast tomosynthesis bl scr performed at [facility]. TISSUE DENSITY: BIRADS [...] images: BB's = Nipples; skin lesions [place] = Palpable Line = Scar 2D digital [...] Gay on 06-15-2021 [facility]: [id number]ound ACCESSION EXAM DATE/TIME PROCEDURE ORDERING PROVIDER [id number] 06/15/2021 12:57 EDT US Abdomen Complete MD VICTOR HUGO, GEOVANI GARRETT CPT code 35558 Reason For Exam (US Abdomen Complete) ruq [...] Phone: Joe, [facility] Incoming Radiology [facility] From [facility] - 06/15/2021 1:16 PM EDT [facility]: [id number] Ultrasound ACCESSION EXAM DATE/TIME PROCEDURE ORDERING PROVIDER [id number] 06/15/2021 12:57 EDT US Abdomen Complete MD GAY DARRELL LEROY CPT code 07544 Reason For Exam (US Abdomen Complete) ruq [...] and Time: 06/15/2021 1:16 [facility] Work Phone: [facility] Work [facility]: [facility] ISAAC DIGITAL SCREEN BILA TERALon 07-06-2020 Patient Name: AISHA HA ---Mammography--- Exam Date/Time 07/06/2020 11:19:46 EDT Exam MG Breast Tomosynthesis BI Scr Ordering Physician MD VICTOR HUGO, GEOVANI GARRETT Accession Number [id number] CPT4 Codes 99522 (MG Breast Tomosynthesis Scr Bl), 18673 (MG MAMMO 2D SCREENING) Reason For Exam [...] MG breast tomosynthesis bl scr performed at [facility]. July 02, 2018, bilateral MG breast tomosynthesis bl scr performed at [facility]. April 27, 2016, bilateral screening mammogram performed at [facility]. TISSUE DENSITY: BIRADS B - There are scattered fibroglandular densities. FINDINGS: No suspicious masses, architectural distortions or suspiciously clustered microcalcifications are identified. There is no evidence of skin thickening or nipple retraction. There are no significant changes when compared with prior studies. Markings on images: BB's = Nipples; skin lesions [place] = Palpable Line = Scar 2D digital [...] 07/06/2020 3:42 pm Signed by: MD NICK, [place], [place] [facility] Incoming Radiology Results From [facility] - 07/06/2020 4:02 PM EDT Patient Name: AISHA HA ---Mammography--- Exam Date/Time 07/06/2020 11:19:46 EDT Exam MG Breast Tomosynthesis BI Scr Ordering Physician MD VICTOR HUGO, GEOVANI GARRETT Accession Number [id number] CPT4 Codes 61903 (MG Breast Tomosynthesis Scr Bl), 17490 (MG MAMMO 2D SCREENING) Reason For Exam [...] MG breast tomosynthesis bl scr performed at [facility]. July 02, 2018, bilateral MG breast tomosynthesis bl scr performed at [facility]. April 27, 2016, bilateral screening mammogram performed at [facility]. TISSUE DENSITY: BIRADS B - There are scattered fibroglandular densities. FINDINGS: No suspicious masses, architectural distortions or suspiciously clustered microcalcifications are identified. There is no evidence of skin thickening or nipple retraction. There are no significant changes when compared with prior studies. Markings on images: BB's = Nipples; skin lesions [place] = Palpable Line = Scar 2D digital [...] pm Signed by: MD NICK, SILVIA [place], [place] C-Reactive Proteinon 020 CRP [Mass/Vol] 46.3 mg/L High 0 - 6 mg/L [place] Comment on above: . CKon 04-10-2020 Total CK 65 U/L 30 - 170 U/L [place] COVID-19on 04-10-2020 SARS-CoV-2 Not Detected Expected Result: Not Detected _ Real-time, RT-PCR performed on the [employer] System by the [facility]. Negative results do not preclude SARS-CoV-2 infection and should not be used as the sole basis for treatment or other patient management decisions. This assay was developed by [employer] and distributed under an Emergency Use Authorization (EUA) granted by the FDA for the qualitative detection of SARS-CoV-2 nucleic acid. [place], [place] Test Performed by [facility], [address] [place] [address] Specimen Source Comment:Nasopharyngeal Swab [place], [place] CT Abdomen Pelvis W Contrast on 04-10-2020 Patient Name: AISHA HA ---CT--- Exam Date/Time 04/10/2020 16:11:[address] Abdomen/Pelvis w/ IV Contrast (IV Onl Ordering Physician MD CAIO, MANDEEP Accession Number [id number] CPT4 Codes 91176 (CT Abdomen/Pelvis w/ IV Contrast (IV Onl), Q9967 (CT ISOVUE 370MG/ML&[id number] &1) Reason For Exam Nausea Report CLINICAL [...] with clinical parameters. Report Dictated on Workstation: [facility] --- Final --- Dictating Physician: MD MOONEY HARLAN Signed Date and Time: 04/10/2020 4:24 pm Signed by: MD MOONEY HARLAN Transcribed Date and Time: 04/10/2020 4:25 [place], [place] Joe, [facility] Incoming Radiology Results From [facility] - 04/10/2020 4:25 PM EDT Patient Name: AISHA HA ---CT--- Exam Date/Time 04/10/2020 16:11:[address] Abdomen/Pelvis w/ IV Contrast (IV Onl Ordering Physician MD CAIO, MANDEEP Accession Number [id number] CPT4 Codes 26611 (CT Abdomen/Pelvis w/ IV Contrast (IV Onl), Q9967 (CT ISOVUE 370MG/ML&[id number] &1) Reason For Exam Nausea Report CLINICAL [...] with clinical parameters. Report Dictated on Workstation: [facility] --- Final --- Dictating Physician: MD MOONEY HARLAN Signed Date and Time: 04/10/2020 4:24 pm Signed by: MD MOONEY HARLAN Transcribed Date and Time: 04/10/2020 4:25 [place] Comprehensive Metabolic Pane modesta 04-10-2020 Albumin [Mass/Vol] 4.2 g/dL 3.5 - 5 g/dL [place] ALP [Catalytic activity/Vol] 165 U/L High 38 - 126 U/L [place] ALT [Catalytic activity/Vol] 40 U/L High 0 - 34 U/L [place] Comment on above: The ALT test is perf ormed by an updated assay method. Please note that the reference intervals have been changed and are now sex specific. Anion gap [Moles/Vol] 13 mmol/L [place], [place] AST [Catalytic activity/Vol] 53 U/L High 15 - 46 U/L [place] Bilirubin Ql (U) 0.4 mg/dL 0.2 - 1.3 mg/dL [place] Calcium [Mass/Vol] 9.1 mg/dL 8.4 - 10. 4 mg/dL [place] Chloride [Moles/Vol] 80 mmol/L Low 98 - 10 7 mmol/L [place] CO2 [Moles/Vol] 26 mmol/L 22 - 30 mmol/L [place] Creatinine [Mass/Vol] 0.39 mg/dL Low 0.52 - 1.25 mg/dL [place] EGFR IF NonAfrican Swiss >90.0 >60 mL/min [place] Comment on above: KDIGO guidelines pro [...] MDRD (S/P/Bld) [Vol rate/Area] mL/min/{1.73_m2} >60 mL/min [place] Glucose [Mass/Vol] 86 mg/dL 70 - 100 mg/dL [place] Potassium [Moles/Vol] 4.3 mmol/L 3.5 - 5.1 mmol/L [place] Protein [Mass/Vol] 7.8 g/dL 6.3 - 8.2 g/dL [place] Sodium [Moles/Vol] 119 mmol/L Critically low 135 - 1 45 mmol/L [place] Urea nitrogen [Mass/Vol] 6 mg/dL Low 7 - 20 mg/dL [place] Hemogram (CBC) w/Auto Diffon 04-10-2020 Absolute Baso # 0.1 10*3/uL 0 - 0.2 10*3/uL [place] Absolute Neut # 5.6 10*3/uL 1.8 - 7 10*3/uL [place] Basophils/100 WBC (Bld) 0.8 % 0 - 2 % [place], [place] Eosinophils (Bld) [#/Vol] 0.1 10*3/uL 0 - 0.5 10*3/uL [place] Eosinophils/100 WBC (Bld) 0.7 % Low 1 - 6 % [place] Erythrocyte distribution width (RBC) [Ratio] 12.4 % 11.5 - 14.5 % [place] Granulocytes/100 WBC (Bld) 70.3 % 40 - 80 % [place] Hematocrit (Bld) [Volume fraction] 37.3 % 35 - 47 % [place] Hemoglobin (Bld) [Mass/Vol] 13.8 g/dL 11.7 - 16 g/dL [place] Interpretation and review of laboratory results Abnormal [place] Lymphocytes (Bld) [#/Vol] 1.8 10*3/uL 1 - 4.3 10*3/uL [place] Lymphocytes/100 WBC (Bld) 22.9 % 20 - 40 % [place] MCH (RBC) [Entitic mass] 34.0 pg 26 - 34 pg [place] MCHC (RBC) [Mass/Vol] 36.9 % High 32 - 36 % [place], [place] MCV (RBC) [Entitic vol] 92.3 fL 79 - 98 fL [place], [place] Monocytes (Bld) [#/Vol] 0.4 10*3/uL 0 - 0.8 10*3/uL [place], [place] Monocytes/100 WBC (Bld) 5.3 % 2 - 10 % [place], [place] Platelet mean volume (Bld) [Entitic vol] 6.7 fL Low 7.4 - 10.4 fL [place] Platelets (Bld) [#/Vol] 311 10*3/uL 140 - 440 10*3/uL [place] RBC (Bld) [#/Vol] 4.04 10*6/uL 3.8 - 5.2 10*6/uL [place] WBC (Bld) [#/Vol] 8.0 10*3/uL 3.6 - 10.7 10*3/uL [place] Test Performed by [facility], [address] , [address] Lactate Dehydrogenaseon 03-23 LD 160 U/L 50 - 170 U/L [place] Lactic Acid, Plasmaon 2019 Lactate [Moles/Vol] 1 mmol/L 0.7 - 2 mmol/L [place] Test Performed by [facility], [address] , [address] Lipaseon 04-10-2020 Lipase [Catalytic activity/Vol] 95 U/L 23 - 300 U/L [place] Otheron 04-10-2020 Interpretation and review of laboratory results Abnormal [place] Test Performed by [facility], [address] , [address] Test Performed by [facility], [address] , [address] Protime-INRon 04-10-2020 INR Coag (PPP) [Relative time] 0.9 {INR} [place] Comment on above: Recommended Anticoag ulant [...] [Time] 10.3 s 9 - 12 s [place] Comment on above: . Sedimentation Rateon 06-19-2 020 Interpretation and review of laboratory results Abnormal [place], [place] Sed Rate 65 mm/h High 0 - 20 mm/h [place] Urinalysison 04-10-2020 Appearance (U) Clear Clear NA [place] Comment on above: . Bilirubin Urine Negative Negative mg/dL [place] Comment on above: . Color (U) COLORLESS Lt. Yellow NA [place] Comment on above: . Glucose, Ur Normal Normal (<70) mg/dL [place] Comment on above: . Interpretation and review of laboratory results Abnormal [place] Ketones Ql (U) Negative Negative mg/dL [place] Comment on above: . LEUKOCYTES, UA Negative Negative Anita/uL [place] Comment on above: . Nitrite, Urine Negative Negative NA [place] Comment on above: . Occult Blood,Urine Negative Negative mg/dL [place] Comment on above: . pH (U) 7.0 [pH] [place] Comment on above: . Protein (U) [Mass/Vol] Negative Negat jessica mg/dL [place] Comment on above: . Specific Borup, Urine <1.005 Abnormal M [place], [place] Comment on above: . Urobilinogen, Urine Normal Normal ( 0-1) mg/dL [place] Comment on above: . Test Performed by [facility], [facility] [address] , [address] Basic Metabolic Panelon 11-23 Anion gap [Moles/Vol] 9 mmol/L [facility] Work Phone: Calcium [Mass/Vol] 9.5 mg/dL 8.4 - 10. 4 mg/dL [facility] Work Phone: Chloride [Moles/Vol] 101 mmol/L 98 - 10 7 mmol/L [facility] Work Phone: CO2 [Moles/Vol] 25 mmol/L 22 - 30 mmol/L [facility] Work Phone: Creatinine [Mass/Vol] 0.43 mg/dL Low 0.52 - 1.25 mg/dL [facility] Work Phone: [phone] IF NonAfrican Swiss >60.0 >60 mL/min [facility] Work Phone: Comment on above: Source- MDRD equatio n with creatinine calibration to IDMS(NKDEP) eGFR not recommended for drug dose adjustment GFR/1.73 sq M predicted among blacks MDRD (S/P/Bld) [Vol rate/Area] mL/min/{1.73_m2} >60 mL/min [facility] Work Phone: Glucose [Mass/Vol] 115 mg/dL High 70 - 100 mg/dL [facility] Work Phone: [phone] Interpretation and review of laboratory results Abnormal [employer] Work Phone: Potassium [Moles/Vol] 3.3 mmol/L Low 3.5 - 5.1 mmol/L [facility] Work Phone: Sodium [Moles/Vol] 135 mmol/L 135 - 145 mmol/L [facility] Work Phone: Urea nitrogen [Mass/Vol] 4 mg/dL Low 7 - 20 mg/dL [facility] Work Phone: [phone] Test Performed by [facility], [facility] [address] [place] [id number] [employer] Work Phone: [phone] Hemogram (CBC) w/Auto Diffon 12-04-2019 Absolute Baso # 0.1 10*3/uL 0 - 0.2 10*3/uL [facility] Work Phone: [phone] Absolute Neut # 7.3 10*3/uL High 1.8 - 7 10*3/uL [facility] Work Phone: Basophils/100 WBC (Bld) 1.2 % 0 - 2 % S [facility] Work Phone: Eosinophils (Bld) [#/Vol] 0.1 10*3/uL 0 - 0.5 10*3/uL [facility] Work Phone: [phone] Eosinophils/100 WBC (Bld) 0.9 % Low 1 - 6 % [facility] Work Phone: Erythrocyte distribution width (RBC) [Ratio] 13.9 % 11.5 - 14.5 % [facility] Work Phone: [phone] Granulocytes/100 WBC (Bld) 75.9 % 40 - 80 % [facility] Work Phone: Hematocrit (Bld) [Volume fraction] 45.6 % 35 - 47 % [facility] Work Phone: Hemoglobin (Bld) [Mass/Vol] 15.9 g/dL 11.7 - 16 g/dL [facility] Work Phone: Interpretation and review of laboratory results Abnormal [facility] Work Phone: Lymphocytes (Bld) [#/Vol] 1.6 10*3/uL 1 - 4.3 10*3/uL [facility] Work Phone: Lymphocytes/100 WBC (Bld) 16.9 % Low 20 - 40 % [facility] Work Phone: MCH (RBC) [Entitic mass] 37.0 pg High 26 - 34 pg [facility] Work Phone: MCHC (RBC) [Mass/Vol] 34.8 % 32 - 36 % [facility] Work Phone: MCV (RBC) [Entitic vol] 106.3 fL High 79 - 98 fL S [facility] Work Phone: Monocytes (Bld) [#/Vol] 0.5 10*3/uL 0 - 0.8 10*3/uL [facility] Work Phone: Monocytes/100 WBC (Bld) 5.1 % 2 - 10 % [facility] Work Phone: Platelet mean volume (Bld) [Entitic vol] 8.0 fL 7.4 - 10.4 fL [facility] Work Phone: Platelets (Bld) [#/Vol] 258 10*3/uL 140 - 440 10*3/uL [facility] Work Phone: RBC (Bld) [#/Vol] 4.29 10*6/uL 3.8 - 5.2 10*6/uL [facility] Work Phone: WBC (Bld) [#/Vol] 9.6 10*3/uL 3.6 - 10.7 10*3/uL [facility] Work Phone: [phone] Otheron 12-04-2019 Test Performed by [facility], [address] , [place] [id number] [employer] Work Phone: [phone] MORPHOLOGYon 12-04-2019 RBC morphology finding Nom (Bld) ABNORMAL [facility] Work Phone: [phone] Sodium [Moles/Vol] Moderate [facility] Work Phone: [phone] Rapid influenza A/B antigens on 12-04-2019 INFLUENZA A Not Detected Not Detected NA [employer] Work Phone: [phone] INFLUENZA B Not Detected Not Detected NA [employer] Work Phone: [phone] Comment on above: Method: Isothermal n ucleic acid amplification technology. Test Performed by [facility], [address] , [place] [address] [employer] Work Phone: [phone] Troponin x1on 12-04-2019 Troponin I.cardiac [Mass/Vol] 0.013 ng/mL 0 - 0.034 ng/mL [facility] Work Phone: Comment on above: . Test Performed by [facility], [address] [place] [address] [employer] Work Phone: XR CHEST STANDARD (2 VW)on 0 12-04-2019 [facility] - 12/04/2019 10:15 AM EST Patient Name: AISHA HA ---Diagnostic Radiology--- Exam Date/Time 12/04/2019 09:56:03 EST Exam CR Chest PA/LAT Ordering Physician MD KEBEDE VIJAY Accession Number [id number] CPT4 Codes 99697 () Reason For Exam cough Report PA [...] Ordering Physician MD KEBEDE VIJAY Accession Number [id number] CPT4 Codes 39105 () Reason For Exam cough Report PA [...] Physician MD CORREA MATTHEW PATRICK Accession Number [id number] CPT4 Codes 51482 () Reason For Exam ABNORMAL LIVER FUNCTION TESTS Report ULTRASOUND COMPLETE ABDOMEN CLINICAL INDICATION: Elevated LFTs TECHNIQUE: Ultrasound of the complete abdomen COMPARISON: None FINDINGS: Liver: Generalized increased echogenicity corresponding to fatty infiltration. Normal size and contour. No focal lesion identified. Gallbladder: Normal. No pericholecystic inflammatory change. Negative sonographic Rivera sign reported by the medical technologist prn. Bile ducts: No intrahepatic and extrahepatic biliary [...] hepatic lesion identified. Report Dictated on Workstation: [employer] --- Final --- Dictating Physician: MD CARMONA JASON Signed Date and Time: 05/31/2019 10:50 am Signed by: MD CARMONA JASON Transcribed Date and Time: 05/31/2019 10:51 [place] Joe, [facility] Incoming Radiology Results From [facility] - 05/31/2019 10:52 AM EDT Patient Name: AISHA HA ---Ultrasound--- Exam Date/Time 05/31/2019 10:41:35 EDT Exam US Abdomen Complete Ordering Physician MD CORREA MATTHEW PATRICK Accession Number [id number] CPT4 Codes 17336 () Reason For Exam ABNORMAL LIVER FUNCTION TESTS Report ULTRASOUND COMPLETE ABDOMEN CLINICAL INDICATION: Elevated LFTs TECHNIQUE: Ultrasound of the complete abdomen COMPARISON: None FINDINGS: Liver: Generalized increased echogenicity corresponding to fatty infiltration. Normal size and contour. No focal lesion identified. Gallbladder: Normal. No pericholecystic inflammatory change. Negative sonographic Rivera sign reported by the medical technologist prn. Bile ducts: No intrahepatic and extrahepatic biliary [...] JASON Transcribed Date and Time: 05/31/2019 10:51 [place], [place] Clinical Summary: HMSPatient IDon [id number] OOP Invalid Interpretation Code [facility] Work Phone: Office Visit: Postop - subse quent visit, Rm: 1on 04-24-2018 NEGATED: Highlighted rowDocumentation of current medications (procedure) Done Invalid Interpretation Code [facility] Work Phone: NEGATED: Highlighted rowSmoking cessation education (procedure) Yes Invalid Interpretation Code [facility] Work Phone: Otheron 01-05-2007 CONVERTED ELECTRONIC SIGNATURE TOM PHILLIPS M.D. (Electronic signature on file) Final Signed Out: 01/05/2007 16:21 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 (LEFT L5-S1 MICRODISCECTOMY). [facility] CONVERTED ORDERING PROVIDER Ordering Provider: ARIE SALGADO [facility] Vital Signs Date Time Vital Sign Value Performing Clinician Facility 07-21-2025 16:58-0400 Body temperature 98.2 [degF] Dr. Geovani Gay MD Work Phone: [facility] 07-21-2025 16:58-0400 Diastolic blood pressure 57 mm[Hg] Dr. Geovani Gay MD Work Phone: [facility] 07-21-2025 16:58-0400 Heart rate 76 /min Dr. Geovani Gay MD Work Phone: [facility] 07-21-2025 16:58-0400 Respiratory rate 20 /min Dr. Geovani Gay MD Work Phone: [facility] 07-21-2025 16:58-0400 SaO2% (BldA) [Mass fraction] 96 % Dr. Geovani Gay MD Work Phone: [facility] 07-21-2025 16:58-0400 Systolic blood pressure 145 mm[Hg] Dr. Geovani Gay MD Work Phone: [facility] 07-21-2025 16:00-0400 Inhaled oxygen flow rate 3 L/min Dr. Geovani Gay MD Work Phone: 1(633)178-332882 [place] [address] 07-21-2025 12:40-0400 Body height 149.[address] Geovani Gay MD Work Phone: [facility] 07-14-2025 13:54-0400 Body mass index (BMI) [Ratio] 32.3 kg/m2 Dr. Geovani Gya MD Work Phone: [facility] 07-14-2025 13:54-0400 Body temperature 96.8 [degF] Dr. Geovani Gay MD Work Phone: [facility] 07-14-2025 13:54-0400 Body weight 72.[address] Geovani Gay MD Work Phone: [facility] 07-14-2025 13:54-0400 Diastolic blood pressure 61 mm[Hg] Dr. Geovani Gay MD Work Phone: [facility] 07-14-2025 13:54-0400 Heart rate 81 /min Dr. Geovani Gay MD Work Phone: [facility] 07-14-2025 13:54-0400 Inhaled oxygen flow rate 3 L/min Dr. Geovani Gay MD Work Phone: [facility] 07-14-2025 13:54-0400 Respiratory rate 14 /min Dr. Geovani Gay MD Work Phone: [facility] 07-14-2025 13:54-0400 SaO2% (BldA) [Mass fraction] 97 % Dr. Geovani Gay MD Work Phone: [facility] 07-14-2025 13:54-0400 Systolic blood pressure 144 mm[Hg] Dr. Geovani Gay MD Work Phone: 6(845)228-012582 [place] [address] 07-07-2025 16:03-0400 Body height 151.[address] Geovani Gay MD Work Phone: 8(950)997-021182 [place] [address] 07-07-2025 16:02-0400 Body mass index (BMI) [Ratio] 31.6 kg/m2 Dr. Geovani Gay MD Work Phone: 6(341)448-610482 [place] [address] 07-07-2025 16:02-0400 Body temperature 98.8 [degF] Dr. Geovani Gay MD Work Phone: 0(950)270-834082 [place] [address] 07-07-2025 16:02-0400 Body weight 73.[address] Geovani Gay MD Work Phone: 4(572)335-800982 [place] [address] 07-07-2025 16:02-0400 Diastolic blood pressure 76 mm[Hg] Dr. Geovani Gay MD Work Phone: 5(444)080-158782 [place] [address] 07-07-2025 16:02-0400 Heart rate 80 /min Dr. Geovani Gay MD Work Phone: 4(850)496-316482 [place] [address] 07-07-2025 16:02-0400 Respiratory rate 18 /min Dr. Geovani Gay MD Work Phone: [facility] 07-07-2025 16:02-0400 SaO2% (BldA) [Mass fraction] 94 % Dr. Geovani Gay MD Work Phone: [facility] 07-07-2025 16:02-0400 Systolic blood pressure 126 mm[Hg] Dr. Geovani Gay MD Work Phone: [facility] 05-07-2025 09:37-0400 Body height 152.4 cm Gena Jones MD Work Phone: [facility] 05-07-2025 09:37-0400 Body mass index (BMI) [Ratio] 29.88 kg/m2 Gena Jones MD Work Phone: [facility] 05-07-2025 09:37-0400 Body temperature 96.91 [degF] Gena Jones MD Work Phone: [facility] 05-07-2025 09:37-0400 Body weight 69.4 kg Gena Jones MD Work Phone: [facility] 05-07-2025 09:37-0400 Diastolic blood pressure 60 mm[Hg] Gena Jones MD Work Phone: [facility] 05-07-2025 09:37-0400 Heart rate 81 /min Gena Jones MD Work Phone: [facility] 05-07-2025 09:37-0400 Respiratory rate 20 /min Gena Jones MD Work Phone: [facility] 05-07-2025 09:37-0400 SaO2% (BldA) [Mass fraction] 99 % Gena Jones MD Work Phone: [facility] 05-07-2025 09:37-0400 Systolic blood pressure 168 mm[Hg] Gena Jones MD Work Phone: [facility] 04-07-2025 10:05-0400 Body height 152.4 cm Linda Gonzales ADAPTIVE PHYSICAL EDUCATOR - RIDING TEACHER Work Phone: [facility] 04-07-2025 10:05-0400 Body mass index (BMI) [Ratio] 30.04 kg/m2 Linda Gonzales ADAPTIVE PHYSICAL EDUCATOR - RIDING TEACHER Work Phone: [facility] 04-07-2025 10:05-0400 Body weight 69.76 kg Linda Gonzales ADAPTIVE PHYSICAL EDUCATOR - RIDING TEACHER Work Phone: [facility] 04-07-2025 10:05-0400 Diastolic blood pressure 61 mm[Hg] Linda Gonzales ADAPTIVE PHYSICAL EDUCATOR - RIDING TEACHER Work Phone: [facility] 04-07-2025 10:05-0400 Heart rate 79 /min Linda Gonzales ADAPTIVE PHYSICAL EDUCATOR - RIDING TEACHER Work Phone: [facility] 04-07-2025 10:05-0400 SaO2% (BldA) [Mass fraction] 94 % Linda Gonzales ADAPTIVE PHYSICAL EDUCATOR - RIDING TEACHER Work Phone: [facility] Comment on above: 3 L 04-07-2025 10:05-0400 Systolic blood pressure 100 mm[Hg] Linda Christian ADAPTIVE PHYSICAL EDUCATOR - RIDING TEACHER Work Phone: [facility] 03-25-2025 16:44-0400 Body temperature 97 [degF] Dr. Geovani Gay MD Work Phone: [facility] 03-25-2025 16:44-0400 Diastolic blood pressure 75 mm[Hg] Dr. Geovani Gay MD Work Phone: [facility] 03-25-2025 16:44-0400 Heart rate 99 /min Dr. Geovani Gay MD Work Phone: [facility] 03-25-2025 16:44-0400 Inhaled oxygen flow rate 2.5 L/min Dr. Geovani Gay MD Work Phone: [facility] 03-25-2025 16:44-0400 Respiratory rate 16 /min Dr. Geovani Gay MD Work Phone: [facility] 03-25-2025 16:44-0400 SaO2% (BldA) [Mass fraction] 97 % Dr. Geovani Gay MD Work Phone: [facility] 03-25-2025 16:44-0400 Systolic blood pressure 152 mm[Hg] Dr. Geovani Gay MD Work Phone: [facility] 03-25-2025 12:15-0400 Body height 151.[address] Geovani Gay MD Work Phone: [facility] 03-25-2025 12:15-0400 Body mass index (BMI) [Ratio] 30.9 kg/m2 Dr. Geovani Gay MD Work Phone: [facility] 03-25-2025 12:15-0400 Body weight 71.[address] Geovani Gay MD Work Phone: [facility] 03-20-2025 22:10-0400 Diastolic blood pressure 68 mm[Hg] Dr. Geovani Gay MD Work Phone: [facility] 03-20-2025 22:10-0400 Heart rate 85 /min Dr. Geovani Gay MD Work Phone: [facility] 03-20-2025 22:10-0400 Inhaled oxygen flow rate 3 L/min Dr. Geovani Gay MD Work Phone: [facility] 03-20-2025 22:10-0400 Respiratory rate 16 /min Dr. Geovani Gay MD Work Phone: [facility] 03-20-2025 22:10-0400 SaO2% (BldA) [Mass fraction] 95 % Dr. Geovani Gay MD Work Phone: [facility] 03-20-2025 22:10-0400 Systolic blood pressure 162 mm[Hg] Dr. Geovani Gay MD Work Phone: [facility] 03-20-2025 21:25-0400 Body temperature 99.5 [degF] Dr. Geovani Gay MD Work Phone: [facility] 03-20-2025 17:04-0400 Body height 152.[address] Geovani Gay MD Work Phone: [facility] 03-04-2025 11:47-0400 Diastolic blood pressure 70 mm[Hg] Geovani Gay MD Work Phone: [facility] 03-04-2025 11:47-0400 Heart rate 60 /min Geovani Gay MD Work Phone: [facility] 03-04-2025 11:47-0400 Systolic blood pressure 136 mm[Hg] Geovani Gay MD Work Phone: [facility] 03-04-2025 11:14-0400 Body height 152.4 cm Geovani Gay MD Work Phone: [facility] 03-04-2025 11:14-0400 Body mass index (BMI) [Ratio] 30.66 kg/m2 Geovani Gay MD Work Phone: [facility] 03-04-2025 11:14-0400 Body weight 71.22 kg Geovani Gay MD Work Phone: [facility] 03-04-2025 11:14-0400 SaO2% (BldA) [Mass fraction] 92 % Geovani Gay MD Work Phone: [facility] 02-18-2025 10:47-0400 Diastolic blood pressure 54 mm[Hg] Geovani Gay MD Work Phone: [facility] 02-18-2025 10:47-0400 Heart rate 80 /min Geovani Gay MD Work Phone: [facility] 02-18-2025 10:47-0400 Systolic blood pressure 102 mm[Hg] Geovani Gay MD Work Phone: [facility] 02-18-2025 10:21-0400 Body height 152.4 cm Geovani Gay MD Work Phone: [facility] 02-18-2025 10:21-0400 Body mass index (BMI) [Ratio] 30 kg/m2 Geovani Gay MD Work Phone: [facility] 02-18-2025 10:21-0400 Body temperature 98.2 [degF] Geovani Gay MD Work Phone: [facility] 02-18-2025 10:21-0400 Body weight 69.67 kg Geovani Gay MD Work Phone: [facility] 02-18-2025 10:21-0400 SaO2% (BldA) [Mass fraction] 95 % Geovani Gay MD Work Phone: [facility] 02-06-2025 15:13-0400 Diastolic blood pressure 66 mm[Hg] Geovani Gay MD Work Phone: [facility] 02-06-2025 15:13-0400 Heart rate 80 /min Geovani Gay MD Work Phone: [facility] 02-06-2025 15:13-0400 Systolic blood pressure 116 mm[Hg] Geovani Gay MD Work Phone: [facility] 02-06-2025 14:52-0400 Body height 152.4 cm Geovani Gay MD Work Phone: [facility] 02-06-2025 14:52-0400 Body mass index (BMI) [Ratio] 30.08 kg/m2 Geovani Gay MD Work Phone: [facility] 02-06-2025 14:52-0400 Body weight 69.85 kg Geovani Gay MD Work Phone: [facility] 02-06-2025 14:52-0400 SaO2% (BldA) [Mass fraction] 94 % Geovani Gay MD Work Phone: [facility] 01-09-2025 14:44-0400 Respiratory rate 18 /min Elina Bridenthal ADAPTIVE PHYSICAL EDUCATOR - RIDING TEACHER Work Phone: [facility] 01-09-2025 14:44-0400 SaO2% (BldA) [Mass fraction] 95 % Elina Bridenthal ADAPTIVE PHYSICAL EDUCATOR - RIDING TEACHER Work Phone: [facility] Comment on above: 2.5 L, after nebuliz er treatment 01-09-2025 14:20-0400 Diastolic blood pressure 85 mm[Hg] Elina Bridenthal ADAPTIVE PHYSICAL EDUCATOR - RIDING TEACHER Work Phone: [facility] 01-09-2025 14:20-0400 Heart rate 85 /min Elina Bridenthal ADAPTIVE PHYSICAL EDUCATOR - RIDING TEACHER Work Phone: [facility] Comment on above: apical 01-09-2025 14:20-0400 Systolic blood pressure 138 mm[Hg] Elina Edwards ADAPTIVE PHYSICAL EDUCATOR - RIDING TEACHER Work Phone: [facility] 01-09-2025 13:56-0400 Body height 152.4 cm Elina Crockeral ADAPTIVE PHYSICAL EDUCATOR - RIDING TEACHER Work Phone: [facility] 01-09-2025 13:56-0400 Body mass index (BMI) [Ratio] 29.26 kg/m2 Elina Kimenthal ADAPTIVE PHYSICAL EDUCATOR - RIDING TEACHER Work Phone: [facility] 01-09-2025 13:56-0400 Body temperature 97.81 [degF] Elina Crockeral ADAPTIVE PHYSICAL EDUCATOR - RIDING TEACHER Work Phone: [facility] 01-09-2025 13:56-0400 Body weight 67.95 kg Elina Crockeral ADAPTIVE PHYSICAL EDUCATOR - RIDING TEACHER Work Phone: [facility] 09-12-2024 11:36-0500 Body height 152.4 cm Geovani Gay MD Work Phone: [facility] 09-12-2024 11:36-0500 Body mass index (BMI) [Ratio] 27.93 kg/m2 Geovani Gay MD Work Phone: [facility] 09-12-2024 11:36-0500 Body weight 64.86 kg Geovani Gay MD Work Phone: [facility] 09-12-2024 11:36-0500 Diastolic blood pressure 56 mm[Hg] Geovani Gay MD Work Phone: [facility] 09-12-2024 11:36-0500 Heart rate 82 /min Geovani Gay MD Work Phone: [facility] 09-12-2024 11:36-0500 SaO2% (BldA) [Mass fraction] 94 % Geovani Gay MD Work Phone: [facility] 09-12-2024 11:36-0500 Systolic blood pressure 128 mm[Hg] Geovani Gay MD Work Phone: [facility] 08-19-2024 11:02-0400 Body height 152.4 cm Geovani Gay MD Work Phone: [facility] 08-19-2024 11:02-0400 Body mass index (BMI) [Ratio] 26.95 kg/m2 Geovani Gay MD Work Phone: [facility] 08-19-2024 11:02-0400 Body weight 62.6 kg Geovani Gay MD Work Phone: [facility] 08-14-2024 14:11-0400 Diastolic blood pressure 58 mm[Hg] Linda Gonzales ADAPTIVE PHYSICAL EDUCATOR - RIDING TEACHER Work Phone: [facility] 08-14-2024 14:11-0400 Systolic blood pressure 132 mm[Hg] Linda Gonzales ADAPTIVE PHYSICAL EDUCATOR - RIDING TEACHER Work Phone: [facility] 08-14-2024 13:55-0400 Body height 152.4 cm Linda Gonzales ADAPTIVE PHYSICAL EDUCATOR - RIDING TEACHER Work Phone: [facility] 08-14-2024 13:55-0400 Body mass index (BMI) [Ratio] 27.03 kg/m2 Linda Gonzales ADAPTIVE PHYSICAL EDUCATOR - RIDING TEACHER Work Phone: [facility] 08-14-2024 13:55-0400 Body temperature 99.39 [degF] Linda Gonzales ADAPTIVE PHYSICAL EDUCATOR - RIDING TEACHER Work Phone: [facility] 08-14-2024 13:55-0400 Body weight 62.78 kg Linda Gonzales ADAPTIVE PHYSICAL EDUCATOR - RIDING TEACHER Work Phone: [facility] 08-14-2024 13:55-0400 Heart rate 72 /min Linda Gonzales ADAPTIVE PHYSICAL EDUCATOR - RIDING TEACHER Work Phone: [facility] 08-14-2024 13:55-0400 SaO2% (BldA) [Mass fraction] 96 % Linda Gonzales ADAPTIVE PHYSICAL EDUCATOR - RIDING TEACHER Work Phone: [facility] 06-13-2024 10:45-0400 Body height 152.4 cm Geovani Gay MD Work Phone: [facility] 06-13-2024 10:45-0400 Body mass index (BMI) [Ratio] 27.54 kg/m2 Geovani Gay MD Work Phone: [facility] 06-13-2024 10:45-0400 Body weight 63.96 kg Geovani Gay MD Work Phone: [facility] 06-13-2024 10:45-0400 Diastolic blood pressure 55 mm[Hg] Geovani Gay MD Work Phone: [facility] 06-13-2024 10:45-0400 Heart rate 79 /min Geovani Gay MD Work Phone: [facility] 06-13-2024 10:45-0400 SaO2% (BldA) [Mass fraction] 97 % Geovani Gay MD Work Phone: [facility] 06-13-2024 10:45-0400 Systolic blood pressure 129 mm[Hg] Geovani Gay MD Work Phone: [facility] 05-29-2024 10:29-0400 Diastolic blood pressure 64 mm[Hg] Linda Gonzales ADAPTIVE PHYSICAL EDUCATOR - RIDING TEACHER Work Phone: [facility] 05-29-2024 10:29-0400 Systolic blood pressure 132 mm[Hg] Linda Gonzales ADAPTIVE PHYSICAL EDUCATOR - RIDING TEACHER Work Phone: [facility] 05-29-2024 09:54-0400 Body height 152.4 cm Linda Gonzales ADAPTIVE PHYSICAL EDUCATOR - RIDING TEACHER Work Phone: [facility] 05-29-2024 09:54-0400 Body mass index (BMI) [Ratio] 26.44 kg/m2 Linda Gonzales ADAPTIVE PHYSICAL EDUCATOR - RIDING TEACHER Work Phone: [facility] 05-29-2024 09:54-0400 Body weight 61.42 kg Linda Gonzales ADAPTIVE PHYSICAL EDUCATOR - RIDING TEACHER Work Phone: [facility] 05-29-2024 09:54-0400 Heart rate 62 /min Linda Gonzales ADAPTIVE PHYSICAL EDUCATOR - RIDING TEACHER Work Phone: [facility] 05-29-2024 09:54-0400 SaO2% (BldA) [Mass fraction] 99 % Linda Gonzales ADAPTIVE PHYSICAL EDUCATOR - RIDING TEACHER Work Phone: [facility] 03-28-2024 10:05-0400 Body height 152.4 cm Geovani Gay MD Work Phone: [facility] 03-28-2024 10:05-0400 Body mass index (BMI) [Ratio] 26.76 kg/m2 Geovani Gay MD Work Phone: [facility] 03-28-2024 10:05-0400 Body weight 62.14 kg Geovani Gay MD Work Phone: [facility] 03-28-2024 10:05-0400 Diastolic blood pressure 57 mm[Hg] Geovani Gay MD Work Phone: [facility] 03-28-2024 10:05-0400 Heart rate 78 /min Geovani Gay MD Work Phone: [facility] 03-28-2024 10:05-0400 SaO2% (BldA) [Mass fraction] 95 % Geovani Gay MD Work Phone: [facility] 03-28-2024 10:05-0400 Systolic blood pressure 94 mm[Hg] Geovani Gay MD Work Phone: [facility] 12-08-2023 10:29-0500 Diastolic blood pressure 71 mm[Hg] Geovani Gay MD Work Phone: [facility] 12-08-2023 10:29-0500 Heart rate 80 /min Geovani Gay MD Work Phone: [facility] 12-08-2023 10:29-0500 Systolic blood pressure 138 mm[Hg] Geovani Gay MD Work Phone: [facility] 12-08-2023 10:02-0500 Body height 152.4 cm Geovani Gay MD Work Phone: [facility] 12-08-2023 10:02-0500 Body mass index (BMI) [Ratio] 28.63 kg/m2 Geovani Gay MD Work Phone: [facility] 12-08-2023 10:02-0500 Body weight 66.5 kg Geovani Gay MD Work Phone: [facility] 12-08-2023 10:02-0500 SaO2% (BldA) [Mass fraction] 96 % Geovani Gay MD Work Phone: [facility] 10-05-2023 10:25-0500 Diastolic blood pressure 83 mm[Hg] Geovani Gay MD Work Phone: [facility] 10-05-2023 10:25-0500 Heart rate 86 /min Geovani Gay MD Work Phone: [facility] 10-05-2023 10:25-0500 SaO2% (BldA) [Mass fraction] 96 % Geovani Gay MD Work Phone: [facility] 10-05-2023 10:25-0500 Systolic blood pressure 152 mm[Hg] Geovani Gay MD Work Phone: [facility] 10-05-2023 10:01-0500 Body height 152.4 cm Geovani Gay MD Work Phone: [facility] 10-05-2023 10:01-0500 Body mass index (BMI) [Ratio] 28.71 kg/m2 Geovani Gay MD Work Phone: [facility] 10-05-2023 10:01-0500 Body temperature 98.29 [degF] Geovani Gay MD Work Phone: [facility] 10-05-2023 10:01-0500 Body weight 66.68 kg Geovani Gay MD Work Phone: [facility] 09-08-2023 09:39-0500 Body height 152.4 cm Geovani Gay MD Work Phone: [facility] 09-08-2023 09:39-0500 Body mass index (BMI) [Ratio] 28.51 kg/m2 Geovani Gay MD Work Phone: [facility] 09-08-2023 09:39-0500 Body weight 66.22 kg Geovani Gay MD Work Phone: [facility] 09-08-2023 09:39-0500 Diastolic blood pressure 73 mm[Hg] Geovani Gay MD Work Phone: [facility] 09-08-2023 09:39-0500 Heart rate 77 /min Geovani Gay MD Work Phone: [facility] 09-08-2023 09:39-0500 SaO2% (BldA) [Mass fraction] 97 % Geovani Gay MD Work Phone: [facility] 09-08-2023 09:39-0500 Systolic blood pressure 127 mm[Hg] Geovani Gay MD Work Phone: [facility] 08-17-2023 10:46-0400 Body height 152.4 cm Geovani Gay MD Work Phone: [facility] 08-17-2023 10:46-0400 Body mass index (BMI) [Ratio] 31.25 kg/m2 Geovani Gay MD Work Phone: [facility] 08-17-2023 10:46-0400 Body weight 72.58 kg Geovani Gay MD Work Phone: [facility] 06-15-2023 09:57-0400 Diastolic blood pressure 60 mm[Hg] Geovani Gay MD Work Phone: [facility] 06-15-2023 09:57-0400 Heart rate 77 /min Geovani Gay MD Work Phone: [facility] 06-15-2023 09:57-0400 SaO2% (BldA) [Mass fraction] 90 % Geovani Gay MD Work Phone: [facility] Comment on above: at rest on O2 06-15-2023 09:57-0400 Systolic blood pressure 128 mm[Hg] Geovani Gay MD Work Phone: [facility] 06-15-2023 09:19-0400 Body height 152.4 cm Geovani Gay MD Work Phone: [facility] 06-15-2023 09:19-0400 Body mass index (BMI) [Ratio] 29.18 kg/m2 Geovani Gay MD Work Phone: [facility] 06-15-2023 09:19-0400 Body weight 67.77 kg Geovani Gay MD Work Phone: [facility] 01-02-2023 11:20-0400 Body temperature 97.7 [degF] Dr. Geovani Gay Work Phone: [facility] 01-02-2023 11:20-0400 Diastolic blood pressure 50 mm[Hg] Dr. Geovani Gay Work Phone: [facility] 01-02-2023 11:20-0400 Heart rate 71 /min Dr. Geovani Gay Work Phone: [facility] 01-02-2023 11:20-0400 Respiratory rate 16 /min Dr. Geovani Gay Work Phone: [facility] 01-02-2023 11:20-0400 SaO2% (BldA) [Mass fraction] 92 % Dr. Geovani Gay Work Phone: [facility] 01-02-2023 11:20-0400 Systolic blood pressure 98 mm[Hg] Dr. Geovani Gay Work Phone: [facility] 01-02-2023 09:11-0400 Body height 152.[address] Geovani Gay Work Phone: [facility] 01-02-2023 09:11-0400 Body mass index (BMI) [Ratio] 31.4 kg/m2 Dr. Geovani Gay Work Phone: [facility] 01-02-2023 09:11-0400 Body weight [address] Geovani Gay Work Phone: [facility] 12-21-2022 14:23-0500 Body height 152.4 cm Geovani Gay MD Work Phone: [facility] 12-21-2022 14:23-0500 Body mass index (BMI) [Ratio] 32.22 kg/m2 Geovani Gay MD Work Phone: [facility] 12-21-2022 14:23-0500 Body weight 74.84 kg Geovani Gay MD Work Phone: [facility] 12-21-2022 14:23-0500 Diastolic blood pressure 59 mm[Hg] Geovani Gay MD Work Phone: [facility] 12-21-2022 14:23-0500 Heart rate 74 /min Geovani Gay MD Work Phone: [facility] 12-21-2022 14:23-0500 Systolic blood pressure 120 mm[Hg] Geovani Gay MD Work Phone: [facility] 10-27-2022 10:25-0500 Diastolic blood pressure 72 mm[Hg] Dr. Geovani Gay Work Phone: [facility] 10-27-2022 10:25-0500 Heart rate 79 /min Dr. Geovani Gay Work Phone: [facility] 10-27-2022 10:25-0500 Systolic blood pressure 124 mm[Hg] Dr. Geovani Gay Work Phone: [facility] 04-27-2022 13:29-0400 Body temperature 97.81 [degF] Bolivar Larsen MD Work Phone: [facility] 04-27-2022 13:29-0400 Diastolic blood pressure 65 mm[Hg] Bolivar Larsen MD Work Phone: [facility] 04-27-2022 13:29-0400 Heart rate 76 /min Bolivar Larsen MD Work Phone: [facility] 04-27-2022 13:29-0400 Respiratory rate 18 /min Bolivar Larsen MD Work Phone: [facility] 04-27-2022 13:29-0400 SaO2% (BldA) [Mass fraction] 93 % Bolivar Larsen MD Work Phone: [facility] 04-27-2022 13:29-0400 Systolic blood pressure 121 mm[Hg] Bolivar Larsen MD Work Phone: [facility] 04-27-2022 06:33-0400 Body height 152.4 cm Bolivar Larsen MD Work Phone: [facility] 04-27-2022 06:33-0400 Body mass index (BMI) [Ratio] 34.76 kg/m2 Bolivar Larsen MD Work Phone: [facility] 04-27-2022 06:33-0400 Body weight 80.74 kg Bolivar Larsen MD Work Phone: [facility] 04-18-2022 11:01-0400 Diastolic blood pressure 80 mm[Hg] Bolivar Larsen MD Work Phone: [facility] 04-18-2022 11:01-0400 Systolic blood pressure 157 mm[Hg] Bolivar Larsen MD Work Phone: [facility] 04-18-2022 10:14-0400 Body height 152.4 cm Bolivar Larsen MD Work Phone: [facility] 04-18-2022 10:14-0400 Body mass index (BMI) [Ratio] 34.8 kg/m2 Bolivar Larsen MD Work Phone: [facility] 04-18-2022 10:14-0400 Body temperature 97.7 [degF] Bolivar Larsen MD Work Phone: [facility] 04-18-2022 10:14-0400 Body weight 80.83 kg Bolivar Larsen MD Work Phone: [facility] 04-18-2022 10:14-0400 Heart rate 82 /min Bolivar Larsen MD Work Phone: [facility] 04-18-2022 10:14-0400 Respiratory rate 16 /min Bolivar Larsen MD Work Phone: [facility] 04-18-2022 10:14-0400 SaO2% (BldA) [Mass fraction] 93 % Bolivar Larsen MD Work Phone: [facility] 11-03-2021 14:06-0500 Body height 152.[address] Geovani Gay Work Phone: [facility] Work Phone: 11-03-2021 14:06-0500 Body mass index (BMI) [Ratio] 35.7 kg/m2 Dr. Geovani Gay Work Phone: [facility] Work Phone: 11-03-2021 14:06-0500 Body weight [address] Geovani Gay Work Phone: [facility] Work Phone: 11-03-2021 14:06-0500 Diastolic blood pressure 89 mm[Hg] Dr. Geovani Gay Work Phone: [facility] Work Phone: 11-03-2021 14:06-0500 Heart rate 72 /min Dr. Geovani Gay Work Phone: [facility] Work Phone: 11-03-2021 14:06-0500 Respiratory rate 18 /min Dr. Geovani Gay Work Phone: [facility] Work Phone: 11-03-2021 14:06-0500 SaO2% (BldA) [Mass fraction] 92 % Dr. Geovani Gay Work Phone: [facility] Work Phone: 11-03-2021 14:06-0500 Systolic blood pressure 179 mm[Hg] Dr. Geovani Gay Work Phone: [facility] Work Phone: 10-13-2021 07:55-0500 Body temperature 97.6 [degF] Dr. Geovani Gay Work Phone: [facility] Work Phone: 10-13-2021 07:55-0500 Diastolic blood pressure 86 mm[Hg] Dr. Geovani Gay Work Phone: [facility] Work Phone: 10-13-2021 07:55-0500 Heart rate 80 /min Dr. Geovani Gay Work Phone: [facility] Work Phone: 10-13-2021 07:55-0500 Respiratory rate 16 /min Dr. Geovani Gay Work Phone: [facility] Work Phone: 10-13-2021 07:55-0500 SaO2% (BldA) [Mass fraction] 92 % Dr. Geovani Gay Work Phone: [facility] Work Phone: 10-13-2021 07:55-0500 Systolic blood pressure 133 mm[Hg] Dr. Geovani Gay Work Phone: [facility] Work Phone: 09-30-2021 08:17-0500 Body mass index (BMI) [Ratio] 34.7 kg/m2 Dr. Geovani Gay Work Phone: [facility] Work Phone: 09-30-2021 08:17-0500 Body temperature 97.3 [degF] Dr. Geovani Gay Work Phone: [facility] Work Phone: 09-30-2021 08:17-0500 Body weight 80.[address] Geovani Gay Work Phone: [facility] Work Phone: 09-30-2021 08:17-0500 Diastolic blood pressure 68 mm[Hg] Dr. Geovani Gay Work Phone: [facility] Work Phone: 09-30-2021 08:17-0500 Heart rate 67 /min Dr. Geovani Gay Work Phone: [facility] Work Phone: 09-30-2021 08:17-0500 Respiratory rate 16 /min Dr. Geovani Gay Work Phone: [facility] Work Phone: 09-30-2021 08:17-0500 SaO2% (BldA) [Mass fraction] 90 % Dr. Geovani Gay Work Phone: [facility] Work Phone: 09-30-2021 08:17-0500 Systolic blood pressure 120 mm[Hg] Dr. Geovani Gay Work Phone: [facility] Work Phone: 09-23-2021 13:07-0500 Body weight 81.[address] Geovani Gay Work Phone: [facility] Work Phone: 09-23-2021 13:07-0500 Heart rate 73 /min Dr. Geovani Gay Work Phone: [facility] Work Phone: 09-23-2021 13:07-0500 SaO2% (BldA) [Mass fraction] 94 % Dr. Geovani Gay Work Phone: [facility] Work Phone: 04-10-2020 16:27-0400 BP Diastolic 66 mm[Hg] [place], [place] 04-10-2020 16:27-0400 BP Systolic 149 mm[Hg] Mandeep Parra [facility] , [place] 04-10-2020 16:27-0400 Pulse (Heart Rate) 66 /min Mandeep De Souza [facility], [place] 04-10-2020 16:27-0400 Pulse Oximetry 99 % [facility] [place] 04-10-2020 16:27-0400 Respiratory Rate 14 /min Mandeep De Souza [facility], [place] 04-10-2020 14:06-0400 Body Temperature 98.4 [degF] [facility] [place] 12-04-2019 10:53-0500 BP Diastolic 71 mm[Hg] Tripp Adusumilli [facility] Work Phone: 12-04-2019 10:53-0500 BP Systolic 136 mm[Hg] Rtipp Adusumilli [facility] Work Phone: 12-04-2019 10:53-0500 Pulse (Heart Rate) 89 /min Tripp Adusumilli [facility] Work Phone: 12-04-2019 10:53-0500 Pulse Oximetry 94 % Tripp Gregoryumilli [facility] Work Phone: 12-04-2019 10:35-0500 Respiratory Rate 14 /min Tripp Vitalyusumilli [facility] Work Phone: 12-04-2019 09:37-0500 Body Temperature 98.6 [degF] Tripp Adusumilli [facility] Work Phone: NEGATED: Highlighted [id number] 13:49-0400 BMI (Body Mass Index) 37.24 kg/m2 [facility] Work Phone: NEGATED: Highlighted [id number] 13:49-0400 BP Diastolic 74 mm[Hg] [facility] Work Phone: NEGATED: Highlighted [id number] 13:49-0400 BP Systolic 115 mm[Hg] [facility] Work Phone: NEGATED: Highlighted [id number] 13:49-0400 Height [facility].4 cm [facility] Work Phone: NEGATED: Highlighted [id number] 13:49-0400 Height 152 cm [facility] Work Phone: NEGATED: Highlighted [id number] 13:49-0400 Pulse (Heart Rate) 74 /min [facility] Work Phone: NEGATED: Highlighted [id number] 13:49-0400 Weight 86.18 kg [facility] Work Phone: NEGATED: Highlighted [id number] 13:49-0400 Weight 86 kg [facility] Work Phone: Encounters Encounter Date Encounter Type Care Provider Facility Start: 09-04-2025 ambulatory Cal Bahena Facility [facility] Start: 08-19-2025 End: 08-19-2025 ambulatory Geovani Victor Hugo Facility:[place] [facility]: [facility]05[facility] Start: 07-21-2025 End: 07-21-2025 Emergency department patient visit Dr. Geovani Gay MD Work Phone: -Emergency Department Work Phone: Start: 07-14-[address] Gabino Madsen MD -[facility] Start: 07-07-[address] Gabino Madsen MD -[facility] Start: 07-07-2025 End: 07-07-[address] Gabino Madsen MD -[facility] Work Phone: Start: 07-07-2025 End: 07-07-[address] Geovani Gay MD Work Phone: -[facility] Start: 06-30-2025 End: 06-30-2025 Refill Linda Gonzales ADAPTIVE PHYSICAL EDUCATOR - RIDING TEACHER Work Phone: [facility] Start: 06-26-2025 End: 06-26-2025 Refill Linda Gonzales ADAPTIVE PHYSICAL EDUCATOR - RIDING TEACHER Work Phone: [facility] Comment on above: Vitamin D deficiency , unspecified Start: 05-26-2025 End: 05-28-2025 Refill Geovani Gay MD Work Phone: [facility] Start: 05-20-2025 End: 05-20-2025 Patient encounter procedure Cal Shruti DO -[facility] Work Phone: Start: 05-20-2025 End: 05-20-[address] Geovani Gay MD Work Phone: -[facility] Start: 05-20-2025 End: 05-20-2025 ambulatory Caljoni Bahena Facility:[facility] Start: 05-07-2025 End: 05-07-2025 Emergency department patient visit Gena Jones MD Work Phone: [facility] Comment on above: Sinus congestion (Pr imary Dx) Start: 04-25-2025 End: 04-25-2025 Refill Linda Gonzales ADAPTIVE PHYSICAL EDUCATOR - RIDING TEACHER Work Phone: [facility] Comment on above: Chronic nausea Start: 04-12-2025 End: 04-14-2025 Refill Geovani Gay MD Work Phone: [facility] Comment on above: Primary hypertension Start: 04-08-2025 End: 06-08-2025 Follow-up encounter Linda Gonzales ADAPTIVE PHYSICAL EDUCATOR - RIDING TEACHER Work Phone: [facility] Comment on above: Comprehensive metabo lic panel, Magnesium Start: 04-07-2025 End: 04-07-2025 Transitional care manage srvc 14 day discharge Linda Gonzales ADAPTIVE PHYSICAL EDUCATOR - RIDING TEACHER Work Phone: [facility] Comment on above: Hospital discharge f ollow-up (Primary Dx); Acute on chronic respiratory failure with hypoxia (HCC); Pneumonia due to infectious organism, unspecified laterality, unspecified part of lung; Hypokalemia; Hypomagnesemia; Alcoholic cirrhosis of liver with ascites (CMS/HCC) (HCC); Dependence on continuous supplemental oxygen; Chronic obstructive pulmonary disease, unspecified COPD type (HCC) Start: 04-07-2025 End: 04-07-2025 Orders Only Linda Dailey Christian ADAPTIVE PHYSICAL EDUCATOR - RIDING TEACHER Work Phone: [facility] Start: 03-25-2025 Non-patient / Non-visit [facility] Start: 03-25-2025 Non-patient / Non-visit Dr. Troy Hu [facility] Work Phone: Start: 03-24-2025 Non-patient / Non-visit Calmelissa Pérez [facility] Start: 03-24-2025 Non-patient / Non-visit Dr. Troy curry MD [facility] Work Phone: Start: 03-23-2025 End: 03-23-2025 ambulatory [facility] Facility:[place] Start: 03-23-2025 End: 03-23-2025 Non-patient / Non-visit [facility] Work [facility]: Start: 03-22-2025 Non-patient / Non-visit Dr. Troy [facility] Work Phone: Start: 03-21-2025 Non-patient / Non-visit Dr. Troy Hu [facility] Work Phone: Start: 03-20-2025 Non-patient / Non-visit Dr. Guerline Douglas MD [facility] Work Phone: Start: 03-20-2025 ambulatory [facility] Facility :[facility] Start: 03-20-2025 End: 03-25-2025 Evaluation and management of inpatient Dr. Jose Douglas MD -[facility] Work Phone: Start: 03-04-2025 End: 03-04-2025 Office outpatient visit 25 minutes Geovani Gay MD Work Phone: [facility] Comment on above: Chronic obstructive pulmonary disease, unspecified COPD type (HCC) (Primary Dx); Chronic respiratory failure with hypoxia (HCC); Nonintractable epilepsy without status epilepticus, unspecified epilepsy type (HCC); Primary hypertension; Chronic nausea; Gastroesophageal reflux disease without esophagitis; Vitamin D deficiency, unspecified; Mixed hyperlipidemia; Current smoker; Anxiety Start: 03-04-2025 End: 03-04-2025 ambulatory [facility] Start: 02-18-2025 End: 02-18-2025 Office outpatient visit 10 minutes Geovani Gay MD Work Phone: [facility] Comment on above: Glossitis (Primary D x) Start: 02-18-2025 End: 02-18-2025 ambulatory [facility] Start: 02-17-2025 End: 02-17-2025 ambulatory Silvia Wren RN [facility] Start: 02-17-2025 End: 02-17-2025 Patient encounter procedure Silvia Wren RN [facility] Start: 02-06-2025 End: 02-06-2025 Office outpatient visit 25 minutes Geovani Gay MD Work Phone: [facility] Comment on above: Incontinence overflo w, stress female (Primary Dx); Fecal smearing; Chronic respiratory failure with hypoxia (HCC); Fibromyalgia Start: 02-06-2025 End: 02-06-2025 ambulatory [facility] Start: 01-28-2025 End: 01-28-2025 ambulatory Ruperto Jenkins RN [facility] Start: 01-28-2025 End: 01-28-2025 Patient encounter procedure Ruperto Jenkins RN [facility] Start: 01-09-2025 End: 01-09-2025 Office outpatient visit 25 minutes Elina Bridenthal ADAPTIVE PHYSICAL EDUCATOR - RIDING TEACHER Work Phone: [facility] Comment on above: COPD with acute exac erbation (HCC) (Primary Dx); Acute non-recurrent frontal sinusitis; Chronic obstructive pulmonary disease, unspecified COPD type (HCC); Moderate asthma, unspecified whether complicated, unspecified whether persistent Start: 01-09-2025 End: 01-09-2025 Patient encounter procedure Leila Dozier RN [facility] Start: 01-09-2025 End: 01-09-2025 ambulatory Leial Dozier RN [facility] Start: 12-16-2024 End: 12-16-2024 Refill Geovani Gay MD Work Phone: [facility] Start: 12-12-2024 End: 12-12-2024 Refill Geovani Gay MD Work Phone: [facility] Comment on above: Chronic obstructive pulmonary disease, unspecified (HCC) Start: 11-02-2024 End: 11-04-2024 Refill Elina Bridenthal ADAPTIVE PHYSICAL EDUCATOR - RIDING TEACHER Work Phone: [facility] Comment on above: Chronic nausea Start: 10-25-2024 End: 10-28-2024 Refill Elina Bridenthal ADAPTIVE PHYSICAL EDUCATOR - RIDING TEACHER Work Phone: [facility] Comment on above: Primary hypertension Start: 10-22-2024 End: 10-22-2024 Refill [facility] Start: 10-19-2024 End: 10-21-2024 Refill Geovani Gay MD Work Phone: [facility] Comment on above: Hyperlipidemia, unsp ecified hyperlipidemia type Start: 09-12-2024 End: 09-12-2024 ambulatory [facility] Start: 09-12-2024 End: 09-12-2024 Office outpatient visit 25 minutes Geovani Gay MD Work Phone: [facility] Comment on above: Moderate asthma, uns pecified whether complicated, unspecified whether persistent (Primary Dx); Chronic obstructive pulmonary disease, unspecified COPD type (HCC); Chronic respiratory failure with hypoxia (HCC); Primary hypertension; Nonintractable epilepsy without status epilepticus, unspecified epilepsy type (HCC); Gastroesophageal reflux disease without esophagitis; Mixed hyperlipidemia; Hyponatremia Start: 08-22-2024 End: 08-22-2024 [facility] Start: 08-19-2024 End: 08-19-2024 Subsequent hospital visit by physician Geovani Gay MD Work Phone: [facility] Comment on above: Screening mammogram for breast cancer Start: 08-19-2024 End: 08-19-2024 ambulatory [facility] Start: 08-14-2024 End: 08-14-2024 Office outpatient visit 15 minutes Linda Robin CNP Work Phone: [facility] Comment on above: Sinobronchitis (Prim alida Dx); Malaise and fatigue; Acute cough; Head congestion Start: 08-14-2024 End: 08-14-2024 ambulatory [facility] Start: 07-04-2024 End: 10-03-2024 Transcribe Orders Geovani Gay MD Work Phone: [facility] Comment on above: Screening mammogram for breast cancer (Primary Dx) Start: 06-13-2024 End: 06-13-2024 Periodic preventive med est patient 40-64yrs Geovani Gay MD Work Phone: [facility] Comment on above: Chronic obstructive pulmonary disease, unspecified (HCC) (Primary Dx); Primary hypertension; Hyperlipidemia, unspecified hyperlipidemia type; Epilepsy, unspecified, not intractable, without status epilepticus (HCC); Vitamin D deficiency, unspecified; Alcoholic cirrhosis of liver with ascites (CMS/HCC) (HCC); Chronic respiratory failure with hypoxia (HCC); Hyponatremia Start: 06-11-2024 End: 06-11-2024 Refill Dania D'Kavitha [facility] Comment on above: Vitamin D deficiency , unspecified Start: 06-06-2024 End: 06-07-2024 Refill Linda Gonzales ADAPTIVE PHYSICAL EDUCATOR - RIDING TEACHER Work Phone: [facility] Comment on above: Osteoarthritis, unsp ecified osteoarthritis type, unspecified site Start: 05-29-2024 End: 05-29-2024 Office outpatient visit 25 minutes Linda Gonzales ADAPTIVE PHYSICAL EDUCATOR - RIDING TEACHER Work Phone: [facility] Comment on above: Alcoholic cirrhosis of liver [...] Telephone encounter Geovani Gay MD Work Phone: [facility] Comment on above: Medication List Start: 04-05-2024 Refill Elina melgar ADAPTIVE PHYSICAL EDUCATOR - RIDING TEACHER Work Phone: [facility] Comment on above: Primary hypertension ; Chronic obstructive pulmonary disease, unspecified (HCC) Start: 03-30-2024 Refill Linda Gonzales ADAPTIVE PHYSICAL EDUCATOR - RIDING TEACHER Work Phone: [facility] Comment on above: Vitamin D deficiency , unspecified Start: 03-29-2024 ambulatory Elina Pedroza RN [facility] Start: 03-29-2024 Patient encounter procedure Elina Pedroza RN [facility] Start: 03-28-2024 End: 03-28-2024 Office outpatient visit 25 minutes Geovani Gay MD Work Phone: [facility] Comment on above: Chronic obstructive pulmonary disease, unspecified COPD type (HCC) (Primary Dx); Abnormal liver function tests; Hyponatremia; Falls frequently; Ascites due to chronic alcoholic hepatitis; Iron deficiency anemia, unspecified iron deficiency anemia type; Generalized weakness Start: 03-27-2024 ambulatory NONE PHYSICIAN Facility :[facility] Start: 02-17-2024 Refill Elina Briden thal ADAPTIVE PHYSICAL EDUCATOR - RIDING TEACHER Work Phone: [facility] Start: 01-29-2024 Refill Geovani Gay MD Work Phone: [facility] Start: 01-27-2024 Refill Elina Briden thal ADAPTIVE PHYSICAL EDUCATOR - RIDING TEACHER Work Phone: [facility] Comment on above: Primary hypertension ; Chronic nausea Start: 12-18-2023 Refill Elina Briden thal ADAPTIVE PHYSICAL EDUCATOR - RIDING TEACHER Work Phone: [facility] Comment on above: Vitamin D deficiency , unspecified; Chronic obstructive pulmonary disease, unspecified (HCC) Start: 12-08-2023 End: 12-08-2023 Office outpatient visit 25 minutes Geovani Gay MD Work Phone: [facility] Comment on above: Chronic obstructive pulmonary disease, unspecified COPD type (HCC) (Primary Dx); Seizure disorder (CMS/HCC) (HCC); Primary hypertension; Gastroesophageal reflux disease without esophagitis; Fibromyalgia; Vitamin D deficiency; Current mild episode of major depressive disorder, unspecified whether recurrent (HCC); Anxiety; Current smoker; Mixed hyperlipidemia; Hyponatremia Start: 10-05-2023 End: 10-05-2023 Office outpatient visit 15 minutes Geovani Gay MD Work Phone: [facility] Comment on above: Acute non-recurrent pansinusitis (Primary Dx); Bronchitis; Primary hypertension Start: 10-03-2023 Refill Elina Briden thal ADAPTIVE PHYSICAL EDUCATOR - RIDING TEACHER Work Phone: [facility] Comment on above: Vitamin D deficiency , unspecified Epilepsy, unspecifie d, not intractable, without status epilepticus (HCC) Start: 09-22-2023 Refill Geovani Gay MD Work Phone: [facility] Start: 09-10-2023 Refill Elina Morgan talia ADAPTIVE PHYSICAL EDUCATOR - RIDING TEACHER Work Phone: [facility] Comment on above: Chronic obstructive pulmonary disease, unspecified (HCC) Start: 09-08-2023 End: 09-08-2023 Office outpatient visit 25 minutes Geovani Gay MD Work Phone: [facility] Comment on above: Chronic obstructive pulmonary disease, unspecified COPD type (HCC) (Primary Dx); Primary hypertension; Gastroesophageal reflux disease without esophagitis; Chronic nausea; Current mild episode of major depressive disorder, unspecified whether recurrent (HCC); Anxiety Start: 08-17-2023 Refill Geovani Gay MD Work Phone: [facility] Comment on above: Primary hypertension Start: 08-17-2023 End: 08-17-2023 Subsequent hospital visit by physician Geovani Gay MD Work Phone: [facility] Comment on above: Encounter for screen ing mammogram for malignant neoplasm of breast Start: 07-22-2023 Refill Linda Gonzales APRN - RIDING TEACHER Work Phone: [facility] Comment on above: Vitamin D deficiency , unspecified Chronic nausea Start: 06-22-2023 Refill Geovani Gay MD Work Phone: [facility] Comment on above: Epilepsy, unspecifie d, not intractable, without status epilepticus (HCC) Start: 06-22-2023 End: 06-22-2023 Subsequent hospital visit by physician Linda Gonzales ADAPTIVE PHYSICAL EDUCATOR - RIDING TEACHER Work Phone: [facility] Comment on above: Multiple lung nodule s on CT Start: 06-18-2023 Refill Geovani Gay MD Work Phone: [facility] Comment on above: Chronic obstructive pulmonary disease, unspecified (HCC) Start: 06-15-2023 End: 06-15-2023 Patient encounter procedure Geovani Gay MD Work Phone: [facility] Work Phone: Start: 06-15-2023 End: 06-15-2023 Periodic preventive med est patient 40-64yrs Geovani Gay MD Work Phone: [facility] Comment on above: Annual physical exam [...] vaccination Start: 05-22-2023 Refill Elina Eddie melgar ADAPTIVE PHYSICAL EDUCATOR - RIDING TEACHER Work Phone: [facility] Start: 05-07-2023 Refill Geovani Gay MD Work Phone: [facility] Start: 04-16-2023 Refill Geovani Gay MD Work Phone: [facility] Comment on above: Vitamin D deficiency , unspecified Start: 02-28-2023 Refill Elina Judyen thal ADAPTIVE PHYSICAL EDUCATOR - RIDING TEACHER Work Phone: [facility] Comment on above: Epilepsy, unspecifie d, not intractable, without status epilepticus (HCC) Start: 01-30-2023 Refill Elina Judyen talia ADAPTIVE PHYSICAL EDUCATOR - RIDING TEACHER Work Phone: [facility] Comment on above: Chronic nausea Start: 01-30-2023 End: 01-30-[address] Geovani Gay Work Phone: [facility] Work Phone: Start: 01-30-2023 End: 01-30-[address] Geovani Gay Work Phone: [facility], [facility] Start: 01-16-2023 End: 01-16-[address] Geovani Gay Work Phone: [facility] Start: 01-11-2023 Refill Geovani Gay MD Work Phone: [facility] Comment on above: Vitamin D deficiency , unspecified Start: 01-02-2023 Non-patient / Non-visit Dr. Crooks Work Phone: [facility] Start: 01-02-2023 End: 01-02-2023 Admission to same day surgery center Dr. Geovani Gay Work Phone: [facility] Start: 01-02-2023 End: 01-02-[address] Geovani Gay Work Phone: [facility] Work Phone: Start: 12-22-2022 Refill Geovani Gay MD Work Phone: [facility] Comment on above: Hyperlipidemia, unsp ecified hyperlipidemia type; Primary hypertension; Chronic obstructive pulmonary disease, unspecified (HCC) Start: 12-21-2022 End: 12-21-2022 Office outpatient visit 25 minutes Geovani Gay MD Work Phone: [facility] Comment on above: Seizure disorder (CM S/HCC) (HCC) (Primary Dx); Chronic obstructive pulmonary disease, unspecified COPD type (HCC); Primary hypertension; Gastroesophageal reflux disease without esophagitis; Mixed hyperlipidemia; Current mild episode of major depressive disorder, unspecified whether recurrent (HCC); Anxiety Start: 12-12-2022 Refill Geovani Gay MD Work Phone: [facility] Comment on above: Vitamin D deficiency , unspecified Start: 11-16-2022 End: 11-16-2022 Subsequent hospital visit by physician [facility] Exam Room [address] [facility] [address] Comment on above: Solitary pulmonary n odule Start: 10-27-2022 Refill Geovani Gay MD Work Phone: [facility] Start: 10-27-2022 End: 10-27-[address] Geovani Gay Work Phone: [facility] Start: 07-08-2022 ambulatory Geovani Gay [facility] Start: 07-08-2022 End: 07-08-2022 Subsequent hospital visit by physician Geovani Gay MD Work Phone: [facility] Comment on above: Arrived Start: 05-11-2022 ambulatory UNKNOWN PROVIDER [facility] Start: 05-11-2022 End: 05-11-2022 Subsequent hospital visit by physician Linda Gonzales APRN - RIDING TEACHER Work Phone: [facility] Comment on above: Lung nodule Start: 04-27-2022 End: 04-27-2022 ambulatory UNKNOWN PROVIDER [facility] Start: 04-27-2022 End: 04-27-2022 Subsequent hospital visit by physician Bolivar Larsen MD Work Phone: [facility] Comment on above: Calculus of gallblad afshin with acute on chronic cholecystitis without obstruction (Primary Dx) Start: 04-18-2022 ambulatory UNKNOWN PROVIDER [facility] Start: 04-18-2022 Encounter for other preprocedural examination [facility] Start: 04-18-2022 End: 04-18-2022 Subsequent hospital visit by physician Bolivar Larsen MD Work Phone: [facility]Admit [facility] Comment on above: Seizure disorder (HC C) Start: 01-06-2022 End: 01-06-[address] Geovani Gay Work Phone: [facility] Start: 11-03-2021 End: 11-03-[address] Geovani Gay Work Phone: [facility] Start: 10-28-2021 Non-patient / Non-visit Dr. Crooks Work Phone: [facility] Start: 10-13-2021 End: 10-13-[address] Geovani Gay Work Phone: [facility] Start: 09-30-2021 End: 09-30-[address] [facility] Start: 09-27-2021 ambulatory [facility] PROVIDER [facility] Start: 09-24-2021 Non-patient / Non-visit Dr. Crooks Work Phone: [facility] Start: 09-23-[address] Geovani Gay Work Phone: [facility] Start: 07-07-2021 End: 07-07-2021 Subsequent hospital [...] department patient visit Mandeep Parra Work Phone: [facility] Comment on above: Hyponatremia (Primar y Dx); Dehydration; COVID-19; Acute pneumonitis Start: 12-04-2019 End: 12-04-2019 Emergency department patient visit Tripp [facility]ebede [facility] Comment on above: Hypertensive urgency (Primary Dx); Chest pain, unspecified type Start: 07-03-2019 End: 07-03-2019 Subsequent hospital visit by physician Jeffrey Correa Work Phone: [facility] [place] Comment on above: Arrived Start: 05-31-2019 End: 05-31-2019 Subsequent hospital visit by physician Jeffrey Correa Work Phone: [employer] [facility] Comment on above: Arrived Start: 04-24-2018 End: 04-24-2018 Patient encounter procedure Arie Clarisa Nav MANRIQUE Work Phone: [facility] Work Phone: Start: 01-03-2007 End: 01-03-2007 Patient encounter procedure Arie Salgado Work Phone: [facility] Start: 01-03-2007 Results Only Arie Clarisa Salgado Work Phone: [facility] [place] [place] Procedures Date Procedure Procedure Detail Performing Clinician [...] or Pulmonary Embolism (PE)CRITICAL VALUE CALLED TO [facility]03/23/25 0947 Lillian Duong.RESULTS READ BACK BY SAME. [...] dna/rna influenza 1st 2 types Linda Gonzales ADAPTIVE PHYSICAL EDUCATOR - RIDING TEACHER Work Phone: Start: 08-14-2024 Sars-cov-2 detection by dna/rna Linda Gonzales ADAPTIVE PHYSICAL EDUCATOR - RIDING TEACHER Work Phone: Start: 05-29-2024 Lipid 1996 panel - Serum or Plasma Linda Gonzales ADAPTIVE PHYSICAL EDUCATOR - RIDING TEACHER Work Phone: Start: 08-17-2023 Mammography Geovani Gay MD Work Phone: Start: 06-15-2023 Lipid 1996 panel - Serum or Plasma Francisco Gay MD Work Phone: Start: 01-02-2023 End: 01-02-[address] Geovani Gay Work Phone: Start: 11-16-2022 CT Chest for screening WO contrast Linda Gonzales ADAPTIVE PHYSICAL EDUCATOR - RIDING TEACHER Work Phone: Start: 07-08-2022 End: 07-08-2022 Screening [...] Start: 07-07-2021 Screening digital breast tomosynthesis bi Geovani Gay MD Work Phone: Start: 06-15-2021 Us [...] 04-10-2020 Blood count complete auto&auto difrntl wbc Mnadeep M Skobeloff Work Phone: Start: 04-10-2020 C-reactive [...] Screening for malign ant neoplasm of colon [facility] Start: 05-29-2029 Lipid panel [facility] Start: 06-15-2028 Lipid panel Lipid Panel [facility] Start: 06-15-2028 Pneumococcal Vaccine : 50+ Years (3 of 3 - PCV20 or PCV21) Pneumococcal Vaccine: 50+ Years (3 of 3 - PCV20 or PCV21) [facility] Start: 06-15-2028 Pneumococcal Vaccine : Pediatrics (0 to 5 Years) and At-Risk Patients (6 to 64 Years) (3 - PPSV23 if available, else PCV20) Pneumococcal Vaccine: Pediatrics (0 to 5 Years) and At-Risk Patients (6 to 64 Years) (3 - PPSV23 if available, else PCV20) [facility] Start: 06-15-2028 Pneumococcal Vaccine : Pediatrics (0 to 5 Years) and At-Risk Patients (6 to 64 Years) (3 - PPSV23 or PCV20) Pneumococcal Vaccine: Pediatrics (0 to 5 Years) and At-Risk Patients (6 to 64 Years) (3 - PPSV23 or PCV20) [facility] Start: 06-15-2028 Pneumococcal Vaccine : Pediatrics (0 to 5 Years) and At-Risk Patients (6 to 64 Years) (3 of 3 - PPSV23 or PCV20) Pneumococcal Vaccine: Pediatrics (0 to 5 Years) and At-Risk Patients (6 to 64 Years) (3 of 3 - PPSV23 or PCV20) [facility] Start: 06-13-2027 Lipid panel Lipid Panel [facility] Start: 10-07-2025 Depression Monitoring Depression [facility] Start: 09-12-2025 COVID-19 Vaccine () COVID-19 Vaccine () [facility] Comment on above: Postponed from 06/23 (Patient Refused) Start: 09-12-2025 Screening for malign ant neoplasm of lung Lung Cancer Screening [facility] Comment on above: Postponed from 06/22 (Patient Refused) Start: 09-10-2025 End: 09-10-2025 Patient encounter procedure 09/10/2025 11:00 AM EST Office Visit [address] [address] Geovani Gay MD [address] [place], [place] [phone] [facility] Start: 09-08-2025 Serum inorganic phos phate measurement [facility] Start: 09-08-2025 Vitamin B12 measurement [facility] Start: 09-04-2025 Depression Monitoring Depression [facility] Start: 08-20-2025 Depression Monitoring Depression [facility] Start: 08-19-2025 Screening for malign ant neoplasm of breast Mammogram [facility] Start: 07-21-2025 [facility] Start: 07-21-2025 [facility] Start: 07-07-2025 [facility] Start: 06-23-2025 COVID-19 Vaccine ( season) COVID-19 Vaccine ( season) [facility] Start: 06-23-2025 Influenza vaccination Influenza Vacc ine (#1) [facility] Start: 06-13-2025 Screening for malign ant neoplasm of cervix [facility] Start: 06-12-2025 COVID-19 Vaccine ( season) COVID-19 Vaccine ( season) [facility] Comment on above: Postponed from 06/23 (Patient Refused) Start: 06-12-2025 DTaP/Tdap/Td Vaccine s (1 - Tdap) DTaP/Tdap/Td Vaccines (1 - Tdap) [facility] Comment on above: Postponed from 02/27 (Patient Refused) Start: 06-12-2025 Hepatitis A Vaccines (1 of 2 - Risk 2-dose series) Hepatitis A Vaccines (1 of 2 - Risk 2-dose series) [facility] Comment on above: Postponed from 02/27 (Patient Refused) Start: 06-12-2025 Hepatitis B Vaccines (1 of 3 - Risk 3-dose series) Hepatitis B Vaccines (1 of 3 - Risk 3-dose series) [facility] Comment on above: Postponed from 02/27 (Patient Refused) Start: 06-12-2025 HIV screening HIV Screening [facility] Comment on above: Postponed from 02/27 (Patient Refused) Start: 06-12-2025 RSV Immunization age d 60 or older (1 - 1-dose 60+ series) RSV Immunization aged 60 or older (1 - 1-dose 60+ series) [facility] Comment on above: Postponed from 02/27 (Patient Refused) Start: 06-12-2025 RSV Immunization for Adults (1 - Risk 60-74 years 1-dose series) RSV Immunization for Adults (1 - Risk 60-74 years 1-dose series) [facility] Comment on above: Postponed from 02/27 (Patient Refused) Start: 06-12-2025 Zoster Vaccines (1 of 2) Zoste r Vaccines (1 of 2) [facility] Comment on above: Postponed from 02/27 (Patient Refused) Start: 04-07-2025 End: 04-07-2026 Comprehensive metabolic 1998 panel - Serum or Plasma Comprehensive metabolic panel Lab Routine Hypokalemia Expected: 04/07/2025 (Approximate), Expires: 04/07/2026 [facility] [employer] [facility] Work Phone: Comment on above: Expected: 04/07/2025 (Approximate), Expires: 04/07/2026 Start: 04-07-2025 End: 04-07-2026 Magnesium [Mass/volume] in Serum or Plasma Magnesium Lab Routine Hypomagnesemia Expected: 04/07/2025 (Approximate), Expires: 04/07/2026 [facility] Comment on above: Expected: 04/07/2025 (Approximate), Expires: 04/07/2026 Start: 03-25-2025 Patient discharge [facility] Start: 03-24-2025 Measurement of occul t blood in stool specimen using immunoassay [facility] Start: 03-24-2025 Referral to gastroenterology service [facility] Start: 03-23-2025 Application of intermittent pneumatic compression device [facility] Start: 03-21-2025 Administration of bl ood product [facility] Start: 03-21-2025 Oxygen therapy [facility] Start: 03-21-2025 Following clinical pathway protocol [facility] Start: 03-21-2025 Ambulation without limitation [facility] Start: 03-21-2025 Assessment of risk o f venous thromboembolism [facility] Start: 03-21-2025 Inhalation therapy procedure [facility] Start: 03-21-2025 Insertion of cathete r into peripheral vein [facility] Start: 03-21-2025 Providing care accor ding to standard [facility] Start: 03-21-2025 [facility] Start: 03-20-2025 Measurement of occul t blood in stool specimen using immunoassay [facility] Start: 03-20-2025 Verification routine [facility] Start: 03-20-2025 Admission procedure [facility] Start: 03-20-2025 Hospital admission, emergency, from emergency room, medical nature [facility] Start: 03-20-2025 End: 03-20-2025 [facility] Start: 03-20-2025 [facility] Start: 03-20-2025 Bacteria identified in Blood by Culture Blood Culture [facility] Start: 03-20-2025 Bacteria identified in Urine by Culture Urine Culture [facility] Start: 03-20-2025 Blood culture Blood Culture [facility] Start: 03-12-2025 Depression Monitoring Depression [facility] Start: 03-04-2025 End: 03-04-2025 Patient encounter procedure 03/04/2025 11:30 AM EDT Office Visit [address] [address] Geovani Gay MD [address] [place] [id number] [facility] Start: 02-18-2025 End: 02-18-2025 Patient encounter procedure 02/18/2025 10:30 AM EDT Office Visit [address] [address] Geovani Gay MD [address] [place] [address] [facility] Start: 12-13-2024 Depression Monitoring Depression [facility] Start: 09-12-2024 End: 09-12-2025 Basic metabolic 1998 panel - Serum or Plasma Basic metabolic panel Lab Routine Hyponatremia Expected: 09/12/2024 (Approximate), Expires: 09/12/2025 [facility] Work Phone: Comment on above: Expected: 09/12/2024 (Approximate), Expires: 09/12/2025 Start: 09-12-2024 End: 09-12-2024 Patient encounter procedure [facility] Start: 08-19-2024 End: 08-19-2024 Patient encounter procedure 08/19/2024 11:00 AM EDT Appointment [facility] [address] [place] [phone] Geovani Gay MD [address] [place], [place] [address] [address] [facility] Start: 08-17-2024 Screening for malign ant neoplasm of breast Mammogram [facility] Start: 07-08-2024 Screening for malign ant neoplasm of breast Breast cancer screen [facility] Start: 06-23-2024 COVID-19 Vaccine () COVID-19 Vaccine () [facility] Start: 06-23-2024 Influenza vaccination Influenza Vacc ine (#1) [facility] Start: 06-22-2024 Screening for malign ant neoplasm of lung Lung Cancer Screening [facility] Start: 06-15-2024 Lipid panel Lip[facility] Start: 06-13-2024 End: 06-13-2025 Comprehensive metabolic 1998 panel - Serum or Plasma Comprehensive metabolic panel Lab Routine Alcoholic cirrhosis of liver with ascites (CMS/HCC) (HCC) Hyponatremia Expected: 06/13/2024 (Approximate), Expires: 06/13/2025 [facility] Work Phone: Comment on above: Expected: 06/13/2024 (Approximate), Expires: 06/13/2025 Start: 06-13-2024 End: 06-13-2024 Patient encounter procedure 06/13/2024 11:00 AM EDT Office Visit [facility] [address] [place], [place] [address] [address] Geovani Gay MD [address] [place] [phone] [facility] Start: 06-06-2024 Depression Monitoring Depression Mon itoring [facility] Start: 06-06-2024 Depresssion Monitoring Depresssion M onitoring [facility] Start: 05-29-2024 End: 05-29-2025 25-hydroxyvitamin D3 [Mass/volume] in Serum or Plasma Vitamin D Deficiency Screening (Vit D 25) Lab Routine Vitamin D deficiency Expected: 05/29/2024 (Approximate), Expires: 05/29/2025 [facility] [employer] Comment on above: Expected: 05/29/2024 (Approximate), Expires: 05/29/2025 Start: 05-29-2024 End: 05-29-2025 Carbamazepine level, total Carbamazepine level, total Lab Routine Seizure disorder (CMS/HCC) (HCC) Expected: 05/29/2024 (Approximate), Expires: 05/29/2025 [facility] [employer] [facility] Work Phone: Comment on above: Expected: [...] Primary hypertension Expected: 05/29/2024 (Approximate), Expires: 05/29/2025 [facility] Comment on above: Expected: 05/29/2024 (Approximate), Expires: 05/29/2025 Start: 05-29-2024 End: 05-29-2025 LEVETIRACETAM LEVEL LEVETIRACETAM LEVEL Lab Routine Seizure disorder (CMS/HCC) (HCC) Expected: 05/29/2024 (Approximate), Expires: 05/29/2025 [facility] [employer] Comment on above: Expected: 05/29/2024 (Approximate), Expires: 05/29/2025 Start: 05-29-2024 End: 05-29-2025 Lipid 1996 panel - Serum or Plasma Lipid panel Lab Routine Mixed hyperlipidemia Expected: 05/29/2024 (Approximate), Expires: 05/29/2025 [employer] Comment on above: Expected: 05/29/2024 (Approximate), Expires: 05/29/2025 Start: 05-10-2024 End: 05-10-2024 Patient encounter procedure 05/10/2024 9:00 AM EDT Office Visit [address] [place] [address] Geovani Gay MD [address] [place] [address] [place] [address] [facility] Start: 04-04-2024 End: 04-04-2024 Clinical Support 04/04/2024 9:30 AM EDT Clinical Support [address] [place] [address] [facility] Start: 03-28-2024 End: 03-28-2025 CBC panel - Blood by Automated count CBC Lab Routine Iron deficiency anemia, unspecified iron deficiency anemia type Expected: 03/28/2024 (Approximate), Expires: 03/28/2025 [facility] Comment on above: Expected: 03/28/2024 (Approximate), Expires: 03/28/2025 Start: 03-28-2024 End: 03-28-2025 Comprehensive metabolic 1998 panel - Serum or Plasma Comprehensive metabolic panel Lab Routine Hyponatremia Expected: 03/28/2024 (Approximate), Expires: 03/28/2025 [facility] Work Phone: Comment on above: Expected: 03/28/2024 (Approximate), Expires: 03/28/2025 Start: 01-17-2024 Diabetes mellitus screening Diabetes Screening [facility] Start: 01-17-2024 Hemoglobin A1c measurement Diabetes: Hemoglobin A1C [facility] Start: 12-15-2023 Depresssion Monitoring Depresssion M onitoring [facility] Start: 12-08-2023 End: 12-08-2023 Patient encounter procedure 12/08/2023 10:30 AM EST Office Visit [address] [place] [address] Geovani Gay MD [address] [place] [address] [place] [address] [facility] Start: 10-05-2023 End: 10-05-2023 Patient encounter procedure 10/05/2023 10:15 AM EST Office Visit [facility] [address] [place] [address] [place] [address] Geovani Gay MD [address] [place] [address] [place] [address] [facility] Start: 09-04-2023 End: 09-04-2023 Patient encounter procedure 09/04/2023 9:45 AM EST Office Visit [address] [place] [address] Geovani Gay MD [address] [place] [address] [place] [address] [facility] Start: 08-17-2023 End: 08-17-2023 Patient encounter procedure 08/17/2023 11:00 AM EDT Appointment [address] [phone] Geovani Gay MD [address] [place] [address] [place] [address] [facility] Start: 07-08-2023 Screening for malign ant neoplasm of breast Mammogram [facility] Start: 07-07-2023 Screening for malign ant neoplasm of breast Breast cancer screen [facility] Start: 06-23-2023 COVID-19 Vaccine () COVID-19 Vaccine () [facility] Start: 06-23-2023 COVID-19 Vaccine () COVID-19 Vaccine () [facility] Start: 06-23-2023 Depresssion Monitoring Depresssion M onitoring [facility] Start: 06-23-2023 Influenza vaccination Influenza Vacc ine (#1) [facility] Start: 06-22-2023 End: 06-22-2023 Patient encounter procedure 06/22/2023 7:45 AM EDT Appointment [facility] [address] [place] [phone] Linda Gonzales, ADAPTIVE PHYSICAL EDUCATOR - RIDING TEACHER [address] [place], [place] [phone] [facility] Start: 06-22-2023 Subsequent hospital visit by physician 06/22/2023 7:45 AM EDT Hospital Encounter [facility] [address] [place] [address] Linda Gonzales, ADAPTIVE PHYSICAL EDUCATOR - RIDING TEACHER [address] [place], [place] [phone] [facility] Start: 06-15-2023 End: 06-14-2024 Comprehensive metabolic 1998 panel - Serum or Plasma Comprehensive metabolic panel Lab Routine Screening for diabetes mellitus Expected: 06/15/2023 (Approximate), Expires: 06/14/2024 [facility] Comment on above: Expected: 06/15/2023 (Approximate), Expires: 06/14/2024 Start: 06-15-2023 End: 06-14-2024 Lipid 1996 panel - Serum or Plasma Lipid panel Lab Routine Mixed hyperlipidemia Expected: 06/15/2023 (Approximate), Expires: 06/14/2024 [facility] Work Phone: Comment on above: Expected: 06/15/2023 (Approximate), Expires: 06/14/2024 Start: 06-15-2023 End: 08-15-2024 MG Breast - bilateral Screening Bilateral screening mammogram Imaging Routine Encounter for screening mammogram for malignant neoplasm of breast Expected: 06/15/2023, Expires: 08/15/2024 [facility] Comment on above: Expected: 06/15/2023 , Expires: 08/15/2024 Start: 06-15-2023 End: 06-15-2023 Patient encounter procedure [facility] Start: 06-13-2023 Lipid panel Lipids [facility] Start: 06-09-2023 HIV screening HIV screen [facility] Comment on above: Postponed from 02/27 (Patient Refused) Start: 2023 Hepatitis B Vaccines (1 of 3 - Risk 3-dose series) Hepatitis B Vaccines (1 of 3 - Risk 3-dose series) [facility] Start: 2023 RSV Immunization age d 60 or older (1 - 1-dose 60+ series) RSV Immunization aged 60 or older (1 - 1-dose 60+ series) [facility] Start: 2023 RSV Immunization for Adults (1 - Risk 60-74 years 1-dose series) RSV Immunization for Adults (1 - Risk 60-74 years 1-dose series) [facility] Start: 01-30-2023 Ultrasonography of abdomen Abdomen Limited [facility] Start: 01-30-2023 Ultrasound elastography [facility] Start: 01-30-2023 US Abdomen limited [facility] Start: 01-02-2023 Colsc flx w/rmvl of tumor polyp lesion snare tq COLONOSCOPY W/LESION REMOVAL [facility] Start: 01-02-2023 Egd transoral biopsy single/multiple EGD BIOPSY SINGLE/MULTIPLE [facility] Start: 01-02-2023 Patient discharge [facility] Start: 12-14-2022 End: 12-14-2022 Patient encounter procedure 12/14/2022 Office Visit Family Medicine Geovani Gay MD [address] [place] [address], [place] [address] [facility] Start: 12-10-2022 Depression Monitoring Depression Mon itoring [facility] Start: 12-10-2022 DTaP/Tdap/Td vaccine (1 - Tdap) DTaP/Tdap/Td vaccine (1 - Tdap) [facility] Comment on above: Postponed from 02/27 (Patient Refused) Start: 12-10-2022 Shingles vaccine (1 of 2) Murillo gles vaccine (1 of 2) [facility] Comment on above: Postponed from 02/27 (Patient Refused) Start: 11-16-2022 End: 11-16-2022 Patient encounter procedure 11/16/2022 [address]ointment [address] [facility] Start: 09-30-2022 Pneumococcal 0-64 ye ars Vaccine (2 - PPSV23 or PCV20) Pneumococcal 0-64 years Vaccine (2 - PPSV23 or PCV20) [facility] Start: 09-30-2022 Pneumococcal Vaccine : Pediatrics (0 to 5 Years) and At-Risk Patients (6 to 64 Years) (2 - PPSV23 if available, else PCV20) Pneumococcal Vaccine: Pediatrics (0 to 5 Years) and At-Risk Patients (6 to 64 Years) (2 - PPSV23 if available, else PCV20) [facility] Start: 07-06-2022 Screening for malign ant neoplasm of breast Breast cancer screen [facility] Work Phone: Start: 06-23-2022 Influenza vaccination [facility] Start: 06-13-2022 End: 06-13-2022 Patient encounter procedure [facility] Start: 06-11-2022 Creatinine measurement Creatinine mo nitoring [facility] Work Phone: Start: 06-11-2022 Hepatitis C screening Hepatitis C sc reen [facility] Comment on above: Postponed from 02/27 (Patient Refused) Postponed from 02/27 (Patient Refused) Start: 06-11-2022 HIV screening [facility] screen [facility] Comment on above: Postponed from 02/27 (Patient Refused) Start: 06-11-2022 Lipid panel [facility] Start: 06-11-2022 Potassium monitoring Potassium monit oring [facility] Work Phone: Start: 05-11-2022 End: 05-11-2022 Patient encounter procedure 05/11/2022 Appointment Radiology Linda Gonzales S, ADAPTIVE PHYSICAL EDUCATOR - RIDING TEACHER [address] [place] [address] Start: 04-29-2022 End: 04-29-2022 Nursing evaluation of patient and report 04/29/2022 Nurse Only Family Medicine [facility] Start: 12-13-2021 End: 12-13-2021 Patient encounter procedure 12/13/2021 Office Visit Family Medicine [facility]ovani Gay MD [address] [facility] [place] [place] [address] [phone] [facility] Start: 12-09-2021 DTaP/Tdap/Td vaccine (1 - Tdap) DTaP/Tdap/Td vaccine (1 - Tdap) [facility] Work Phone: Comment on above: Postponed from 02/27 (Insurance / Financial) Start: 12-09-2021 Pneumococcal 0-64 ye ars Vaccine (1 of 2 - PPSV23) Pneumococcal 0-64 years Vaccine (1 of 2 - PPSV23) [facility] Work Phone: Comment on above: Postponed from 02/27 (Insurance / Financial) Start: 12-09-2021 Shingles Vaccine (1 of 2) Murillo gles Vaccine (1 of 2) [facility] Work Phone: Comment on above: Postponed from 02/27 (Insurance / Financial) Start: 11-25-2021 Pneumococcal Vaccine : Pediatrics (0 to 5 Years) and At-Risk Patients (6 to 64 Years) (2 - PPSV23 if available, else PCV20) Pneumococcal Vaccine: Pediatrics (0 to 5 Years) and At-Risk Patients (6 to 64 Years) (2 - PPSV23 if available, else PCV20) [facility] Start: 11-03-2021 Patient referral [facility] Work Phone: Start: 09-19-2021 Lipid screen Lipid screen [facility] [place] Start: 07-07-2021 End: 07-07-2021 Patient encounter procedure 07/07/2021 Appointment Radiology [facility] Start: 07-03-2021 Breast cancer screen Breast cancer s silas [facility] Work Phone: Start: 07-03-2021 Screening for malign ant neoplasm of breast Breast cancer screen [facility] [place] Start: 07-01-2021 COVID-19 Vaccine (3 - Booster for Pfizer series) COVID-19 Vaccine (3 - Booster for Pfizer series) [facility] Start: 06-25-2021 Screening for malign ant neoplasm of lung Low dose CT lung screening [facility] Start: 06-23-2021 Influenza vaccination Flu vaccine (# 1) [facility] Work Phone: Start: 06-16-2021 End: 06-16-2021 Patient encounter procedure 06/16/2021 Office Visit Family Medicine Geovani Gay MD [address] [facility] [place], [facility] [place] [address] [phone] [facility] Start: 06-11-2021 Creatinine measurement Creatinine mo [place], [place] Start: 06-11-2021 Lipid panel Lipid screen [place], [place] Start: 06-11-2021 Potassium monitoring Potassium monit [place], [place] Start: 03-26-2021 COVID-19 Vaccine (3 - Booster for Pfizer series) COVID-19 Vaccine (3 - Booster for Pfizer series) [facility] Start: 03-26-2021 COVID-19 Vaccine (3 - Pfizer series) COVID-19 Vaccine (3 - Pfizer series) [facility] Start: 12-10-2020 Hepatitis C screening [place] Comment on above: Postponed from 02/27 (Patient Refused) Start: 12-10-2020 HIV screening HIV screen [place], [place] Comment on above: Postponed from 02/27 (Patient Refused) Start: 12-10-2020 End: 12-10-2020 Office Visit 12/10/2020 Office [facility] [place] [address] [phone] [facility] Start: 12-04-2020 Creatinine measurement Creatinine mo [place], [place] Start: 12-04-2020 Potassium monitoring Potassium monit [place], [place] Start: 07-09-2020 End: 07-09-2020 Nurse Only 07/09/2020 Nurse Only Family Medicine [facility] Start: 07-06-2020 End: 07-06-2020 Appointment 07/06/2020 Appointment Radiology Geovani Gay MD [address] [place] [address] [place] [address] [phone] [facility] Jose Mammo Start: 07-02-2020 Breast cancer screen Breast cancer s creen [place], [place] Start: 06-23-2020 Influenza vaccination Flu vaccine (# 1) [place] Start: 06-09-2020 End: 06-09-2020 Office Visit 06/09/2020 Office Visit Family Medicine Geovani Gay MD [address] [place] [address], [facility] [place] [address] [phone] [facility] Start: 12-27-2019 Screening for malign ant neoplasm of lung Low dose CT lung screening [place], [place] Start: 07-03-2019 End: 07-03-2019 Appointment 07/03/2019 Appointment Radiology Jeffrey Correa MD [address] [place] [address] [phone] [facility] Jose Mammo Start: 06-23-2019 Influenza vaccination Flu vaccine (# 1) [place] Start: 10-09-2018 End: 10-09-2018 Appointment Appointment [facility] Work Phone: Start: 04-24-2018 End: 04-24-2018 Radex spine lumbosacral minimum 4 views XR LUMBAR 4VWS FLEX/EX [facility] [place] [facility] Work Phone: Start: 04-24-2018 End: 04-24-2018 Appointment Appointment [facility] Work Phone: Start: 09-19-2017 Lipid panel Lipid screen [place], [place] Start: 09-19-2017 Lipid screen Lipid screen [facility] Work Phone: Start: 2013 Colon cancer screen colonoscopy Colon cancer screen colonoscopy [place], [place] Start: 2013 Screening for malign ant neoplasm of colon Colon cancer screen colonoscopy [place] Start: 2013 Shingles Vaccine (1 of 2) Murillo gles Vaccine (1 of 2) [place] Start: 2013 Zoster Vaccines (1 of 2) Zoste r Vaccines (1 of 2) [facility] Start: 02-28-2008 Screening for malign ant neoplasm of colon [facility] Start: 2003 Diabetes screen Diabetes screen [place] Start: 1998 Diabetes screen Diabetes screen [facility] Start: 1993 Screening for malign ant neoplasm of cervix [facility] Start: 02-28-1984 Cervical cancer screen Cervical canc er screen [place] Start: 02-28-1984 Screening for malign ant neoplasm of cervix [facility] Start: 1982 DTaP/Tdap/Td vaccine (1 - Tdap) DTaP/Tdap/Td vaccine (1 - Tdap) [place] Start: 1982 DTaP/Tdap/Td Vaccine s (1 - Tdap) DTaP/Tdap/Td Vaccines (1 - Tdap) [facility] Start: 1982 Hepatitis A Vaccines (1 of 2 - Risk 2-dose series) Hepatitis A Vaccines (1 of 2 - Risk 2-dose series) [facility] Start: 1981 Diabetes mellitus screening Diabetes Screening [facility] Start: 1978 HIV screen HIV screen [place], [place] Start: 1974 DTaP/Tdap/Td vaccine (1 - Tdap) DTaP/Tdap/Td vaccine (1 - Tdap) [facility] Work Phone: Start: 1973 Diabetic foot examination Diabetes: Foot Exam [facility] Start: 1973 Glaucoma screening Diabetes: R etinopathy Screening [facility] Start: 1973 Preventive dental service Diabetes: Dental Exam [facility] Start: 1969 Pneumococcal 0-64 ye ars Vaccine (1 of 1 - PPSV23) Pneumococcal 0-64 years Vaccine (1 of 1 - PPSV23) [place] Start: 02-28-1964 Hepatitis A Vaccines (1 of 2 - Risk 2-dose series) Hepatitis A Vaccines (1 of 2 - Risk 2-dose series) [facility] Start: 02-28-1964 MMR Vaccines (1 of 1 - Standard series) MMR Vaccines (1 of 1 - Standard series) [facility] Start: 1963 Hepatitis B Vaccines (1 of 3 - 3-dose series) Hepatitis B Vaccines (1 of 3 - 3-dose series) [facility] Start: 1963 Hepatitis C screen Hepatitis C scree n [facility] [place] Start: 1963 HIV screening HIV Screening [facility] Start: 1963 Screening for malign ant neoplasm of colon [facility] Blood glucose - POCT Blood gluco se - POCT Point of Care Testing STAT As Needed until discontinued starting 04/27/2022 [facility] Work Phone: Comment on above: As Needed until disc ontinued starting 04/27/2022 CBC W Auto Different ial panel - Blood [facility] CBC W Auto Different ial panel - Blood [facility] Comprehensive metabo lic 2000 panel - Serum or Plasma [facility] End: 04-27-2022 Creatinine [Mass/volume] in Serum or Plasma Creatinine, serum Lab STAT One Time for 1 Occurrences starting 04/27/2022 until 04/27/2022 [facility] Work Phone: Comment on above: One Time for 1 Occur rences starting 04/27/2022 until 04/27/2022 CT Abdomen and Pelvi s W contrast IV [facility] End: 06-22-2023 CT Chest for screening WO contrast [facility] Work Phone: Comment on above: Once for 1 Occurrenc es starting 06/22/2023 until 06/22/2023 End: 06-25-[address] LUNG SCREENING Imaging Routine Encounter for screening for lung cancer 1 Occurrences starting 06/25/2020 until 06/25/2020 [facility] Comment on above: 1 Occurrences starti ng 06/25/2020 until 06/25/[address] LUNG SCREEN ING Imaging Routine Encounter for screening for lung cancer 06/25/2020 12:49 PM EDT [facility] [place] End: 10-26-2023 DBT Breast - bilateral screening [facility] Work Phone: Comment on above: Once for 1 Occurrenc es starting 08/17/2023 until 08/17/2023 EKG 12 Lead EKG 12 Lead ECG Routine 04/18/2022 10:37 AM EDT [facility] Work Phone: Erythrocyte sediment ation rate [facility] Ferritin [Mass/volum e] in Serum or Plasma [facility] Ferritin [Mass/volum e] in Serum or Plasma [facility] Folate [Moles/volume ] in Serum or Plasma [facility] End: 04-27-2022 INITIATE PACU OXYGEN THERAPY PROTOCOL Initiate PACU Oxygen Therapy Protocol Respiratory Care Routine Continuous until discontinued starting 04/27/2022 [employer] Work Phone: Comment on above: Continuous until dis continued starting 04/27/2022 End: 04-27-2022 Intermittent pulse oximetry Pulse Oximetry Spot Check Respiratory Care Routine One Time for 1 Occurrences starting 04/27/2022 until 04/27/2022 [employer] Work Phone: Comment on above: One Time for 1 Occur rences starting 04/27/2022 until 04/27/2022 Iron [Mass/mass] in Unspecified specimen [facility] Iron and Iron bindin g capacity panel - Serum or Plasma [facility] Lactate dehydrogenas e measurement [facility] Lactate dehydrogenas e measurement [facility] Lactic acid measurement [facility] End: 04-18-2022 Levetiracetam Level [employer] Work Phone: Comment on above: 1 Occurrences starti ng 04/18/2022 until 04/18/2022 End: 05-11-[address] -Abnormal Lung Screen Follow up [employer] Work Phone: Comment on above: 1 Occurrences starti ng 05/11/2022 until 05/11/2022 Magnesium measurement [facility] Nasal Cannula Oxygen Nasal Cannu la Oxygen Respiratory Care Routine As Needed until discontinued starting 04/27/2022 [employer] Work Phone: Comment on above: As Needed until disc ontinued starting 04/27/2022 Nasal Cannula Oxygen Nasal Cannu la Oxygen Respiratory Care Routine As Needed until discontinued starting 04/27/2022 [facility] Work Phone: Comment on above: As Needed until disc ontinued starting 04/27/2022 Nonrebreather mask oxygen Nonreb reather mask oxygen Respiratory Care Routine As Needed until discontinued starting 04/27/2022 [facility] Work Phone: Comment on above: As Needed until disc ontinued starting 04/27/2022 Nonrebreather mask oxygen Nonreb reather mask oxygen Respiratory Care Routine As Needed until discontinued starting 04/27/2022 [facility] Work Phone: Comment on above: As Needed until disc ontinued starting 04/27/2022 OUTSIDE PROCEDURE SCAN OUTSIDE P ROCEDURE SCAN Procedures Ordered: 06/21/2023 [facility] Comment on above: Ordered: 06/21/2023 OUTSIDE PROCEDURE SCAN OUTSIDE P ROCEDURE SCAN Procedures Ordered: 11/15/2022 [facility] Comment on above: Ordered: 11/15/2022 Oxygen therapy [[facility] Data Set] [facility] Work Phone: Comment on above: As Needed until disc ontinued starting 04/27/2022 Daily until disconti nued starting 04/27/2022 Patient Education [facility] Work Phone: Patient referral [facility] Work Phone: End: 04-27-2022 Potassium w/ Reflex to Magnesium Potassium w/ Reflex to Magnesium Lab Routine One Time for 1 Occurrences starting 04/27/2022 until 04/27/2022 [facility] Work Phone: Comment on above: One Time for 1 Occur rences starting 04/27/2022 until 04/27/2022 End: 04-27-2022 Protime-INR Protime-INR Lab STAT One Time for 1 Occurrences starting 04/27/2022 until 04/27/2022 [facility] Work Phone: Comment on above: One Time for 1 Occur rences starting 04/27/2022 until 04/27/2022 Reticulocyte count [facility] End: 07-03-2019 Screening digital breast tomosynthesis bi Demian Isaac Digital Screen Bilateral Imaging Routine Once for 1 Occurrences starting 07/03/2019 until 07/03/2019 [facility] [place] Comment on above: Once for 1 Occurrenc es starting 07/03/2019 until 07/03/2019 Screening digital br east tomosynthesis bi Demian Isaac Digital Screen Bilateral Imaging Routine 07/03/2019 10:31 AM EDT [facility] Serum immunofixation [facility] Serum inorganic phos phate measurement [facility] Spirometry panel Incentive alda metry Respiratory Care Routine Q1H PRN until discontinued starting 04/27/2022 [facility] Work Phone: Comment on above: Q1H PRN until discon tinued starting 04/27/2022 End: 04-27-2022 Surgical Pathology [facility] Work Phone: Comment on above: Once for 1 Occurrenc es starting 04/27/2022 until 04/27/2022 Transferrin [Mass/vo lume] in Serum or Plasma [facility] Urine culture [facility] Vitamin B12 measurement [facility] Immunizations Immunization Date Immunization Notes Care Provider [facility] 09-12-2024 influenza, seasonal, injectable, preservative free Geovani Gay MD Work Phone: [facility] 09-12-2024 influenza virus vaccine, unspecified formulation Linda Gonzales ADAPTIVE PHYSICAL EDUCATOR - RIDING TEACHER Work Phone: [facility] 05-02-2024 tuberculin skin test ; purified protein derivative solution, intradermal Linda Gonzales ADAPTIVE PHYSICAL EDUCATOR - RIDING TEACHER Work Phone: [facility] 04-25-2024 tuberculin skin test ; purified protein derivative solution, intradermal Linda Gonzales ADAPTIVE PHYSICAL EDUCATOR - RIDING TEACHER Work Phone: [facility] 09-08-2023 influenza, injectabl e, quadrivalent, preservative free Geovani Gay MD Work Phone: [facility] 09-08-2023 influenza virus vaccine, unspecified formulation Geovani Gay MD Work Phone: [facility] 06-15-2023 pneumococcal polysaccharide vaccine, 23 valent Geovani Gay MD Work Phone: [facility] 07-28-2022 Covid Pfizer Bivalen t Booster Dr. Geovani Gay MD Work Phone: [facility] 07-28-2022 influenza, injectabl e, quadrivalent, preservative free Geovani Gay MD Work Phone: [facility] 07-28-2022 Moderna SARS-CoV-2 Vaccination Linda Gonzales ADAPTIVE PHYSICAL EDUCATOR Lobito REINOSO Work Phone: [facility] 07-28-2022 influenza virus vaccine, unspecified formulation Geovani Gay MD Work Phone: [facility] 09-30-2021 pneumococcal conjuga te vaccine, [address] Geovani Gay Work Phone: [facility] 09-30-2021 pneumococcal vaccine , unspecified formulation Dr. Geovani Gay Work Phone: [facility] Work Phone: 01-29-2021 COVID-19, Pfizer, PF , 30mcg/0.3mL Geovani Gay MD Work Phone: [facility] Work Phone: 01-08-2021 COVID-19, Pfizer, PF , 30mcg/0.3mL Geovani Gay MD Work Phone: [facility] Work Phone: 07-14-2020 influenza, injectabl e, quadrivalent, contains preservative Geovani Gay MD Work Phone: [facility] 07-14-2020 influenza, injectabl e, quadrivalent, preservative free Dr. Geovani Gay MD Work Phone: [facility] 12-10-2019 influenza, injectabl e, quadrivalent, contains preservative [place] 12-10-2019 influenza, injectabl e, quadrivalent, preservative free Dr. Geovani Gay MD Work Phone: [facility] 09-05-2018 influenza, injectabl e, quadrivalent, preservative free Mandeep [facility], [place] 07-25-2017 influenza virus vaccine, unspecified formulation [facility], [place] 07-25-2017 influenza, injectabl e, quadrivalent, preservative free Dr. Geovani Gay MD Work Phone: [facility] 09-24-2015 Influenza Vaccine, unspecified formulation Mandeep [facility] , [place] 09-24-2015 influenza, injectabl e, quadrivalent, preservative free Dr. Geovani Gay MD Work Phone: [facility] 09-01-2005 influenza virus vaccine, unspecified formulation [facility] No information available. Eloina Rao [facility] [place] [facility] Work Phone: Payers Date Payer Category Payer Self-pay [id number] 2023 Medicaid HMO [employer] [facility] Address: [address] [address] [id number] 2023 Unknown [id number] 2022 Medicaid [id number] 2019 Unknown [employer] [facility] MEDICAID xxxxxxxxxxx 2019-Present [phone] CLAIMS DEPARTMENT [address] [place] [id number] xxxxxxxxxxx [id number] 2019 Unknown [id number] .[id number] 2016 Unknown BCBS [place] - [place] P PO xxxxxxxxxxxx 2016-Present [address] [place] [address] xxxxxxxxxxxx [id number] .[id number] 2005 Self-pay SELF PAY HSP/MED ICAL SELF PAY [id number] SELF PAY Indemnity [id number] .[id number] 1963 Unknown [id number] 20.1.621876.3.579.2 1963 Unknown [id number] 12.08.830.1.038014.3.579.2 1963 Unknown [id number] 12.08.830.1.630083.3.579.2 1963 Unknown [id number] 12.08.830.1.061895.3.579.2 1963 Unknown [id number] 840.1.831068.3.579.2 1963 Unknown [id number] 840.1.456578.3.579.2. 1963 Unknown [id number] Unknown Unknown [id number] 840.1.379610.3.579.2.462 Unknown [id number] 840.1.115600.3.579.2.462 Unknown [id number] 2.16.840.1.813137.3.579.2.462 Unknown [id number] 2.16.840.1.291098.3.579.2.462 Unknown [id number] 2.16.840.1.993765.3.579.2.462 Unknown [id number] 2.16.840.1.603122.3.579.2.462 Unknown [id number] 2.16.840.1.443385.3.579.2.462 Unknown [id number] 2.16.840.1.683404.3.579.2.462 Unknown [id number] 2.16.840.1.321649.3.579.2.462 Unknown [id number] 2.16.840.1.648351.3.579.2.462 Unknown [id number] 2.16.840.1.446702.3.579.2.462 Unknown [id number] 2.16.840.1.290622.3.579.2.462 Unknown [id number] 2.16.840.1.431914.3.579.2.462 Unknown [id number] 2.16.840.1.701370.3.579.2.462 Unknown [id number] 2.16.840.1.921678.3.579.2.462 Unknown [id number] 2.16.840.1.718568.3.579.2.462 Unknown [id number] 2.16.840.1.941183.3.579.2.462 Social History Date Type Detail Facility Start: 11-03-2021 End: 01-16-2023 Assertion Unknown if ever smoked [facility] [place] Work Phone: Start: 09-19-2016 End: 07-21-2025 Tobacco smoking status NHIS Current every day smoker [place] Start: 09-19-2016 End: 04-17-2025 Alcohol intake No [place] Start: 1965 Sex Assigned At Not on file M [place], [place] Start: 04-10-2020 End: 02-06-2025 Cigarettes smoked current (pack per day) - Reported [place] Start: 09-19-2016 End: 04-10-2020 Alcohol intake Current non-drinker of alcohol (finding) [employer] Work Phone: Exposure to SARS-CoV -2 (event) Unable to assess [place] Start: 06-23-2020 End: 08-19-2024 Tobacco use and exposure Never used [place] Start: 06-23-2020 End: 12-21-2022 Alcohol intake Current drinker of alcohol (finding) [place] Start: 06-08-2020 End: 09-07-2022 History SDOH Alcohol Frequency 2 [place] Start: 06-08-2020 End: 09-07-2022 History SDOH Alcohol Binge 1 [place] Start: 06-08-2020 End: 06-10-2021 History SDOH Financial 5 [place] Start: 04-08-2022 End: 06-22-2023 Exposure to SARS-CoV-2 (event) Not sure [place] Start: 07-30-2020 Occasional [facility] Start: 07-30-2020 None [facility] Start: 07-30-2020 Spouse/ Signif icant Other [facility] Start: 08-04-2020 Cigarettes [facility] Start: 1965 Sex Assigned At Female [facility] History of tobacco use Cigarette Smoker S [facility] Work Phone: Start: 04-18-2022 History SDOH Alcohol Comment 12 pack beer daily [facility] Work Phone: Start: 06-13-2022 History SDOH Financial 3 [facility] Work Phone: Start: 09-07-2022 History SDOH Financial 4 [employer] How hard is it for y ou to pay for the very basics like food, housing, medical care, and heating Not very hard [employer] (I/We) worried adry er (my/our) food would [...] Start: 03-28-2024 Alcohol Comment none since 03/23/24 [facility] Start: 05-23-2022 Sex Female (finding) [facility] Are you now , , , , never or living with a partner? [facility] How often to you hav e a drink containing alcohol? Never [facility] How hard is it for y ou to pay for the very basics like food, housing, medical care, and heating Hard [facility] Do you feel stress - tense, restless, nervous, or anxious, or unable to sleep at night because your mind is troubled all the time - these days [OSQ] Very much [facility] NEGATED: Highlighted rowStart: 04-24-2018 End: 04-24-2018 Tobacco use and exposure Unknown if ever smoked [facility] Work Phone: NEGATED: Highlighted rowStart: NINF History of tobacco use Passive smoker [facility] NEGATED: Highlighted row Not [facility] Medical Equipment Procedure Code Equipment Code Equipment [...] anesthesia care Gastrointestinal endoscopic clip, long-term, non-bioabsorbable [id number] FDA Start: 03-25-2025 Goals Date Patient Goal Desired Activity /State Functional Status Date Assessment Result Facility 05-07-2025 Total score [AUDIT-C] 0 05/07/20 25 9:43 AM Viktoriya Malagon RN [facility] 04-07-2025 Patient Health Questionnaire 2 item (PHQ-2) [Reported] [facility] 04-07-2025 PHQ-9 quick depressi on assessment panel [Reported.PHQ] [facility] 04-07-2025 Generalized anxiety disorder 7 item (MAURISIO-7) [facility] 03-25-2025 Functional status Ambulates;Bath room Privilege [facility] Work Phone: 03-25-2025 Functional status Ambulates;Bath room Privilege [facility] Work Phone: 03-04-2025 Patient Health Questionnaire 2 item (PHQ-2) [Reported] [facility] 03-04-2025 PHQ-9 quick depressi on assessment panel [Reported.PHQ] [facility] 03-04-2025 Generalized anxiety disorder 7 item (MAURISIO-7) [facility] Mental Status Date Assessment Result Facility 07-14-2025 Cognitive function Voice/Name [facility] Work Phone: 03-25-2025 Cognitive function Level Of Cons ciousness Awake;Alert [facility] Work Phone: 03-25-2025 Cognitive function Voice/Name [facility] Work Phone: 01-02-2023 Cognitive function Voice/Name [facility] Work Phone: Clinical Notes 04-18-2022 to 07-21-2025 Note Date & Type Note Facility 07-21-2025 Discharge summary [facility] 07-21-2025 Radiology Diagnostic study note [facility] Imaging Services [address] [place], [place] [id number] Chest PA and Lateral MR#: [id number] Acct: [id number] Name: AISHA HA Rep #: [id number] : 1965 F 60 From: Nahomi Herzog MD PCP: Dr. Geovani Gay MD Status: REG ER Study:Chest PA and Lateral Date of Exam: 07/21/25 Exam# [id number] Ordering Dr: Jo Ann Carballo MD PROCEDURE: [...] Possibly new. Resolution left-sided pneumonia. Reading Location: [place] [address] CC: Dr. Geovani Gay MD; Dr. David Carballo MD ~ [facility] Attendant: Signed [facility] 07-21-2025 Discharge summary Note Date/Time July 21, 2025 4:43pm [facility] Medical Records Department [address] [place] [address] Emergency Department Summary 07/21/25 MR#: [id number] Acct: [id number] Name: AISHA HA Rep #:[id number] : 1965 60 From: David Carballo MD [...] extremities. Nontender no edema no cords. Normal behavioral services tech strength. Normal dorsi plantarflexion. Back nontender. Neurologically [...] dose given here. Outpatient follow-up with her enrollment manager. Patient and are comfortable with the plan. [...] % (Auto) 51.1 Lymph % (Auto) 39.7 [place] % (Auto) 7.3 Eos % (Auto) 1.2 [...] Possibly new. Resolution left-sided pneumonia. Reading Location: [place] [address] Chest x-ray, 2 views, AP and lateral, [...] rate of 65 no acute signs of [place] or ischemia. Discharge Plan Triage Chief Complaint: [...] your Primary Care Provider. Call [facility] ([phone]) or report to the closest Emergency Room. Call 911 if necessary. 07/21/25 1643 <Electronically signed by David Carballo MD> Cosigner Signature (if applicable): CC: Dr. Geovani Gay MD ~ Signed [facility] Work Phone: 1(501) 655-954709-15-2025 Progress note Author Gabino Madsen [facility] Note Date/Time July 07, 2025 4:34pm [facility] [address] [place] [address] OFFICE VISIT Date of Service: 07/07/25 1554 MR#: [id number] Acct: [id number] Name: AISHA HA Rep #: [id number] : 1965 From: Gabino Madsen MD Age/Sex: 60/F Location: [facility] Status: Signed HPI Subjective Date [...] She has COPD and requires home oxygen. [facility] Medical History Anemia Cirrhosis MRSA (methicillin resistant [...] Physical Exam Narrative On home O2 by ME Const alert, oriented x3 and no apparent [...] Geovani Gay MD; Cal Friend, DO ~ [facility] Work Phone: 1(871) 498-487209-15-2025 Progress [facility] [address] [address] OFFICE VISIT Date of Service: 07/07/25 1554 MR#: [id number] Acct: [id number] Name: AISHA HA Rep #: [id number] : 1965 From: Gabino Madsen MD Age/Sex: 60/F [place] [facility] [place]: Signed HPI Subjective Date of Service [...] She has COPD and requires home oxygen. [facility] Medical History Anemia Cirrhosis MRSA (methicillin resistant [...] Physical Exam Narrative On home O2 by ME Const alert, oriented x3 and no apparent [...] Dr. Geovani Gay MD; Cal Friend, ~ [facility]09-08-2025 Telephone encounter Note* Telephone Encounter - GARETH Calloway CNP - 06/30/2025 4:26 PM EDT Reviewed chart. Refill appropriate. RX sent. [id number] Miscellaneous Notes* Telephone Encounter - GARETH Calloway [...] qty 180 refill 1) documented in this encounterSCleveland Clinic Children's Hospital for [id number] Telephone encounter Note* Telephone Encounter - Francy Roper - 06/30/2025 1:18 PM EDT Prescription Request: ONDANSETRON HCL 4 MG TABLET Last medication check: 03/04/25 Last physical exam: none Next scheduled appointment: 09/10/25 Last date of refill on this medication 05/29/24 ( qty 180 refill 1) [id number] Telephone encounter Note* Telephone Encounter - Francy Roper - 06/26/2025 7:45 AM EDT Prescription Request: VITAMIN D2 1.25MG(50,000 UNIT) Last medication check: 03/04/25 Last physical exam: 06/13/24 Next scheduled appointment: 09/10/25 Last date of refill on this medication 01/13/25 ( qty 12 refill 1) [id number] Miscellaneous Notes* Telephone Encounter - Francy Roper - 06/26/2025 7:45 AM EDT Prescription Request: VITAMIN D2 1.25MG(50,000 UNIT) Last medication check: 03/04/25 Last physical exam: 06/13/24 Next scheduled appointment: 09/10/25 Last date of refill on this medication 01/13/25 ( qty 12 refill 1) documented in this [facility]08-04-2025 Telephone encounter Note* Telephone Encounter - GARETH Fragoso CNP - 05/26/2025 3:16 PM EDT Rx sent. Follow up as scheduled. [id number] Miscellaneous Notes* Telephone Encounter - GARETH Fragoso [...] medication tab): 04/07/2025 Updated/Validated preferred pharmacy: Yes [facility]/pharmacy #[id number] - [place], [place] - [address] [place] [address] Patient instructed to contact the pharmacy prior to picking up the medication: no documented in this [facility]08-04-2025 Telephone encounter Note* Telephone Encounter - Elina [...] medication tab): 04/07/2025 Updated/Validated preferred pharmacy: Yes [facility]/pharmacy #[id number] - [place], [place] - [address] [place] [address] Patient instructed to contact the pharmacy prior to picking up the medication: no [facility] [id number] Emergency department Note* Gena Jones MD - [...] mouth daily. ERGOCALCIFEROL (VITAMIN D2) 1.25 MG (10082 UT) CAPSULE TAKE 1 CAPSULE BY MOUTH [...] hours as needed (wheezing, cough,). NYSTATIN (MYCOSTATIN) 962964 UNIT/ML SUSPENSION Take 5 mL (500,000 Units) [...] AM PATIENT REFERRED TO: Geovani Gay MD [address] [place] [address], [address] [facility] [address] Schedule an appointment as soon as possible [...] Session: Patient declined Stress: Patient Declined (02/06/2025) [employer] - Occupational Stress Questionnaire Feeling of Stress : Patient declined Social Connections: Patient Declined (02/06/2025) Social Connection and Isolation Panel [NHANES] Frequency of Communication with Friends and Family: Patient declined Frequency of Social Gatherings with Friends and Family: Patient declined Attends Islam Services: Patient declined Active Member of Clubs [...] call light within reach. documented in this encounterSCleveland Clinic Children's Hospital for [id number] Emergency department Triage note* Viktoriya Vasquez RN - 05/07/2025 9:25 AM EDT Patient to room 3 with c/o sinus pain for the last 4 days. Patient reports she gets this a couple times a year. V/S obtained, call light within reach. [facility] [id number] Physician Emergency department Note* Gena Jones MD [...] mouth daily. ERGOCALCIFEROL (VITAMIN D2) 1.25 MG (65112 UT) CAPSULE TAKE 1 CAPSULE BY MOUTH [...] hours as needed (wheezing, cough,). NYSTATIN (MYCOSTATIN) 251744 UNIT/ML SUSPENSION Take 5 mL (500,000 Units) [...] AM PATIENT REFERRED TO: Geovani Gay MD [address] [place] [address], [address] [facility] [address] Schedule an appointment as soon as possible [...] Session: Patient declined Stress: Patient Declined (02/06/2025) [employer] - Occupational Stress Questionnaire Feeling of Stress : Patient declined Social Connections: Patient Declined (02/06/2025) Social Connection and Isolation Panel [NHANES] Frequency of Communication with Friends and Family: Patient declined Frequency of Social Gatherings with Friends and Family: Patient declined Attends Islam Services: Patient declined Active Member of Clubs [...] Patient declined Gena Jones MD 05/07/25 0947 [facility] [id number] Telephone encounter Note* Telephone Encounter - GARETH Calloway CNP - 04/25/2025 7:27 AM EDT Reviewed chart. Refill appropriate. RX sent. [facility] [id number] Miscellaneous Notes* Telephone Encounter - GARETH Calloway CNP - 04/25/2025 7:27 AM EDT Reviewed chart. Refill appropriate. RX sent. documented in this [facility]07-04-2025 Telephone encounter Note* Telephone Encounter - GARETH Calloway CNP - 04/25/2025 7:26 AM EDT Reviewed chart. Refill appropriate. RX sent. [facility] [id number] Miscellaneous Notes* Telephone Encounter - GARETH Calloway CNP - 04/25/2025 7:26 AM EDT Reviewed chart. Refill appropriate. RX sent. documented in this [facility]06-23-2025 Telephone encounter Note* Telephone Encounter - Francy Roper - 04/14/2025 7:32 AM EDT Prescription Request: METOPROLOL SUCC ER 25 MG TAB Last medication check: 03/04/25 Last physical exam: 06/13/24 Next scheduled appointment: 09/10/25 Last date of refill on this medication 10/28/24 ( qty 90 refill 1) [facility] [id number] Miscellaneous Notes* Telephone Encounter - Francy Roper - 04/14/2025 7:32 AM EDT Prescription Request: METOPROLOL SUCC ER 25 MG TAB Last medication check: 03/04/25 Last physical exam: 06/13/24 Next scheduled appointment: 09/10/25 Last date of refill on this medication 10/28/24 ( qty 90 refill 1) documented in this [facility]06-16-2025 History of Present illness Narrative* Nia Zuniga MA - 04/07/2025 10:00 AM EDT Patient verified by last name and . * Lidna Gonzales APRN - RIDING TEACHER - 04/07/2025 10:00 AM EDT Images from the original note were not included. [address] [id number] Post-Discharge Transitional Care Follow Up Date of [...] [place] with [place] [facility] [place] - Chronic, stable - Currently wearing [...] States she does not follow-up with a mule spinner - Ammonia level stable while hospitalized - Will check liver enzymes today with blood work 7. Dependence on continuous supplemental oxygen [place] [facility] [place] - Oxygen level stable on 3 L via nasal cannula - Will have her consult with pulmonology for ongoing management 8. Chronic obstructive pulmonary disease, unspecified COPD type (HCC) [place] [facility] [place] - Chronic, stable - Incruse Ellipta as prescribed - Continuous oxygen as directed Medical Decision Making moderate Follow up in 5 months (on 09/10/2025) for Next scheduled follow-up or sooner if needed. Linda Gonzales APRN - KEMAR 04/07/25 10:04 AM MARYANNE Izaguirre presents today for a hospital discharge follow[facility] from [facility] from 03/20/2025 through 03/25/2025. She presented to [...] States she does not follow-up with a enrollment manager currently. Inpatient course: Discharge summary reviewed Interval [...] , Rfl: ergocalciferol (Vitamin D2) 1.25 MG (85687 UT) capsule, TAKE 1 CAPSULE BY MOUTH [...] cough,)., Disp: 1 each,Rfl: 0 nystatin (Mycostatin) 490296 UNIT/ML suspension, Take 5 mL (500,000 Units) [...] normal. Judgment: Judgment normal. documented in this [facility]06-03-2025 Consult note [facility] Medical Records Department [address] [place] [address] Anesthesia Postop Eval II 03/25/25 1617 MR#: [id number] Acct: [id number] Name: AISHA HA Rep #:[id number] : 1965 60 From: Jef Dennis RNA PCP: Dr. Geovani Gay MD Status:ADM IN Y Race: C Location: [place] [address] 3-1 Anesthesia Postop Eval I Sum Postop Eval Completion status Anesthesia document: Postop Eval 1 completed: Yes Anesthesia Postop Eval I Summary Anesthesia Postop Eval I Summary: Anesthesia Postop Eval I: Assessment Summary Airway patent Yes 03/25/25 16:15 BROWNFIELD REDEVELOPMENT SITE MANAGER.MDOT Spontaneous unlabored Yes 03/25/25 16:15 BROWNFIELD REDEVELOPMENT SITE MANAGER.MDOT respirations Mental status Awake,Calm 03/25/25 16:15 BROWNFIELD REDEVELOPMENT SITE MANAGER.MDOT nausea No 03/25/25 16:15 BROWNFIELD REDEVELOPMENT SITE MANAGER.MDOT Vomiting No 03/25/25 16:15 BROWNFIELD REDEVELOPMENT SITE MANAGER.MDOT Anesthesia Postop Eval I: Fluid Summary Crystalloid volume administer 300 03/25/25 16:15 BROWNFIELD REDEVELOPMENT SITE MANAGER.MDOT (ml) Colloids volume administered ( ml) Blood Product volume administered (ml) Total IV fluid infused 300 03/25/25 16:15 BROWNFIELD REDEVELOPMENT SITE MANAGER.MDOT Anesthesia Postop Eval I: Summary Notes Anesthesia Complication No 03/25/25 16:15 BROWNFIELD REDEVELOPMENT SITE MANAGER.MDOT Anesthesia Complication Comment: Post-operative progress note Anesthesia: Postop Eval II Evaluation Mental status: Awake and Calm Pain Level: 0 nausea: No Vomiting: No Complications Anesthesia Complication: No 03/25/25 1617 BROWNFIELD REDEVELOPMENT SITE MANAGER> Date _ Jef Melton Signature: Date CC: ~ Signed [facility]06-03-2025 Progress note Author Cal Friend [facility] Note Date/Time March 25, 2025 3:18p m [facility] Medical Records Department [address] [place] [address] Progress Note 03/25/25 1516 MR#: [id number] Acct: [id number] Name: AISHA HA Rep #:[id number] : 1965 60 From: Cal Bahena DO PCP: Dr. Geovani Gay MD Status:ADM IN Location: [place] [address] Progress Note Patient's hemoglobin is up to [...] Multi Select Codes Visit Charges Visit Charges: 46067 Subs Hosp L2 03/25/25 1518 <Electronically signed by Cal mckenna DO> Date _ Cal Bahena DO Cosigner Signature (if applicable): Date cc: ~* Signed [facility] Work Phone: 1(861) 434-236206-03-2025 Consult note Author [facility] Note Date/Time March 25, 2025 3:16p [facility] Medical Records Department [address] [place] [address] Pre-Anesthesia Evaluation 03/25/25 1507 MR#: [id number] Acct: [id number] Name: AIHSA HA Rep #:[id number] : 1965 60 From: Ag Harrison MD PCP: Dr. Geovani Gay MD Status:ADM IN Y Race: C Location: [place] [address] 3-1 ASA Classification* ASA Classification ASA Classification: [...] injection therapy Anesthesia History Anesthesia History - director of industrial relations: Anesthesia History - director of industrial relations Hx Hospitalization No 12/27/22 10:29 Any Problems [...] take am of surgery PONV PONV - director of industrial relations: PONV - director of industrial relations Female HX of Motion Sickness HX of N/V After Surgery Non-Smoker Duration of Surgery greater than 60 minutes Number of Risk Factors PONV Score Height & Weight Height & Weight: Anesthesia: Height & Weight Height 4 ft 11.84 in 03/25/25 12:15 Weight: 71.6 kg 03/25/25 12:15 Body Mass Index (BMI) 30.9 03/25/25 12:15 Respiratory Assessment Respiratory Assessment - director of industrial relations: Respiratory Tract Infection Hx - director of industrial relations Hx Respiratory Tract Infection Yes 03/24/25 22:56 Any additional information?: Yes Hx Respiratory Tract Infection: Yes History of Anesthesia Respiratory Infection details: Patient have presented with pneumonia 4 days ago. Currently being treated. Patient feels much better. STOP Sleep Apnea STOP Sleep Apnea - director of industrial relations: STOP Sleep Apnea - director of industrial relations Hx Hypertension Yes 03/21/25 00:32 Hx Sleep [...] Tobacco Use History Tobacco Use History - director of industrial relations: Tobacco Use History - director of industrial relations Tobacco Use Smoking Status Current every day smoker 03/21/25 07:22 Hx Tobacco Use Yes 03/21/25 00:32 Years Smoking Packs Smoked per Day Smoking Cessation Date was within the last 15 years Hx Smoking Cessation Date Hx Smoking Cessation No 03/21/25 00:32 Counseling Hematologic Medial History Hematologic Hx - director of industrial relations: Hematologic Medical Hx - drier helper Hx of Blood Transfusion No 03/21/25 00:32 [...] confused, unrespo /Reproduction History /Reproductive History - director of industrial relations: /Reproductive Hx- director of industrial relations Hx Now No 03/24/25 22:56 Gestational Age [...] mls @ 15 mls/hr 03/21/25 00:24 IV .[id number] PRN Saline Flush Sodium Chloride 250 mls @ 15 mls/hr 03/21/25 00:24 IV .[id number] PRN Additional IVPB Infusion Lactated Ringer's 1,000 mls @ 15 mls/hr 03/25/25 14:30 03/25/25 14:30 IV 15 mls/hr .Q48H KASH Administration Levetiracetam 1,000 mg 03/21/25 00:21 03/25/25 08:54 Levetiracetam 1,000 Mg Tablet PO Not Given BID [facility] Lisinopril 20 mg 03/21/25 00:21 03/25/25 08:54 Lisinopril 20 Mg Tablet PO Not Given BID [facility] Protocol Methylprednisolone 40 mg 03/21/25 14:00 03/25/25 12:27 Methylprednisolone 40 Mg/Ml Vial IV 40 mg Q8 KASH Administration Nystatin 500,000 unit 03/22/25 10:00 03/25/25 12:26 Nystatin 500,000 Unit/5 Ml Udc PO Not Given 4X/DAY [facility] Pantoprazole Sodium 40 mg 03/21/25 00:21 03/25/25 08:54 Pantoprazole Sodium 40 Mg Tablet PO Not Given BID [facility] Perphenazine 4 mg 03/21/25 17:00 03/25/25 09:36 Perphenazine 4 Mg Tablet PO Not Given DAILY [facility] Polyethylene Glycol 17 gm 03/22/25 10:00 03/25/25 08:54 Polyethylene Glycol 3350 17 Gm Packet PO Not Given DAILY [facility] Potassium Chloride 20 meq 03/21/25 09:10 03/25/25 08:53 Potassium Chloride Oral Tablet 20 [facility] Senna/Docusate Sodium 1 tablet 03/22/25 10:00 03/25/25 08:54 Senna/Docusate Sodium 1 Tablet PO Not Given BID [facility] Sodium Chloride 10 - 40 ml 03/21/25 00:24 03/25/25 12:25 0.9% Saline Lock 10 Ml Syringe IV 10 ml UD PRN Administration SALINE FLUSH Spironolactone 25 mg 03/23/25 10:00 03/25/25 08:53 Spironolactone 25 Mg Tablet PO Not Given DAILY [facility] Protocol [facility] Medical History Cirrhosis MRSA (methicillin resistant staph [...] no additional complaints, except as documented. 03/25/25 5208 <Electronically signed by Ag fortune MD> Date _ Ag Randleignsol Signature: Date CC: ~ Signed [facility] Work Phone: 1(427) 726-536606-03-2025 Discharge summary [facility] Medical Records Department [address] [place] [address] Discharge Summary 03/25/25 1652 MR#: [id number] Acct: [id number] Name: AISHA HA Rep #:[id number] : 1965 60 From: Troy Akins MD PCP: Dr. Geovani Gay MD Status:ADM IN Location: [place] [address] Providers Date of Admission: 03/20/25 Date of Discharge: 03/25/25 Primary Care Physician: Dr. Geovani Gay MD Consultations 03/24/25 08:28 Consult: Gastroenterology Routine Consulting Provider: [facility] Reason for Consult: Anemia with guaiac [...] Self Care Charges/Coding Visit Charges Inpatient E&M: 84133 Disch Hosp >30min 03/25/25 1704 Cosigner Signature (if applicable): CC: Dr. Geovani Gay MD; Dr. Troy Akins MD~ Signed [facility]06-03-2025 [facility] Medical Records Department [address] [address] Discharge Summary 03/25/25 1652 MR#: [id number] Acct: [id number] Name: AISHA HA Rep #: [id number] : 1965 60 From: Troy Akins MD PCP: Dr. Geovani Gay MD Status:ADM IN Location: [facility] [id number] Providers Date of Admission: 03/20/25 Date of Discharge: 03/25/25 Primary Care Physician: Dr. Geovani Gay MD Consultations 03/24/25 08:28 Consult: Gastroenterology Routine Consulting Provider: [facility] Reason for Consult: Anemia with guaiac [...] Hypertension ??? Blood p (more content not included)...[facility]06-03-2025 Consult note [facility] Medical Records Department [address] [place] [address] Anesthesia Postop Eval I 03/25/25 1614 MR#: [id number] Acct: [id number] Name: AISHA HA Emma Rep #:[id number] : 1965 60 From: Jef LOJA PCP: Dr. Geovani Gay MD Status:ADM IN Y Race: C Location: [place] [address] 31 Anesthesia: Postop Eval I Current Vital [...] Postop Eval 1 completed: Yes 03/25/25 1615 BROWNFIELD REDEVELOPMENT SITE MANAGER> Date _ Jef Herman CRNA Cosigner Signature: Date CC: ~ Signed [facility]06-03-2025 Procedure note [facility] Medical Records Department [address] [place] [address] EGD Report MR#: [id number] Acct: [id number] Name: AISHA HA Rep #:[id number] : 1965 60 From: Cal Baehna DO PCP: Dr. Geovani Gay MD Status:ADM [...] angiodysplastic lesions Procedure Code(s): --- Professional --- 79366, Small intestinal endoscopy, enteroscopy beyond second portion of duodenum, not including ileum; with control of bleeding (eg, injection, bipolar cautery, unipolar cautery, laser, heater probe, stapler, plasma branch library clerk) CPT copyright 2021 [employer]. All rights reserved. The codes documented in this report are preliminary and upon medical biller coder review may be revised to meet current compliance requirements. Cal Bahena DO 03/25/2025 4:12:45 PM This report has been signed electronically. Number of Addenda: 0 Note Initiated On: 03/25/2025 3:46 PM 03/25/25 1612 Date _ Cal Bahena DO Cosigner Signature: Date (if indicated) CC: Dr. Geovani Gay MD; Cal Bahena DO ~ Date Dictated: 03/25/25 1546 Date Transcribed: [facility] Attendant: RF Signed [facility]06-03-2025 Procedure note [facility] Medical Records Department [address] [place] [address] Operative Report - CC Letter MR#: [id number] Acct: [id number] Name: AISHA HA Rep #:[id number] : 1965 60 From: Cal Bahena DO [...] ~ Date Dictated: 03/25/25 1546 Date Transcribed: [facility] Attendant: RF Signed [facility]06-03-2025 Progress note [facility] Medical Records Department [address] [address] Progress Note 03/25/25 1516 MR#: [id number] Acct: [id number] Name: AISHA HA Rep #:[id number] : 1965 60 From: Cal Bahena DO PCP: Dr. Geovani Gay MD Status:ADM IN Location: [place] [address] Progress Note Patient's hemoglobin is up to [...] Multi Select Codes Visit Charges Visit Charges: 11393 Subs Hosp L2 03/25/25 1518 d DO> Date _ Cal Bahena DO Cosigner Signature (if applicable): Date cc: ~* Signed [facility]06-03-2025 Consult note [facility] Medical Records Department [address] [facility] [place] [place] [address] Pre-Anesthesia Evaluation 03/25/25 1507 MR#: [id number] Acct: [id number] Name: AISHA HA Rep #:[id number] : 1965 60 From: Ag Harrison MD PCP: Dr. Geovani Gay MD Status:ADM IN Y Race: C Location: [place] [address] 3-1 ASA Classification* ASA Classification ASA Classification: [...] injection therapy Anesthesia History Anesthesia History - director of industrial relations: Anesthesia History - director of industrial relations Hx Hospitalization No 12/27/22 10:29 Any Problems [...] take am of surgery PONV PONV - director of industrial relations: PONV - director of industrial relations Female HX of Motion Sickness HX of N/V After Surgery Non-Smoker Duration of Surgery greater than 60 minutes Number of Risk Factors PONV Score Height & Weight Height & Weight: Anesthesia: Height & Weight Height 4 ft 11.84 in 03/25/25 12:15 Weight: 71.6 kg 03/25/25 12:15 Body Mass Index (BMI) 30.9 03/25/25 12:15 Respiratory Assessment Respiratory Assessment - director of industrial relations: Respiratory Tract Infection Hx - director of industrial relations Hx Respiratory Tract Infection Yes 03/24/25 22:56 Any additional information?: Yes Hx Respiratory Tract Infection: Yes History of Anesthesia Respiratory Infection details: Patient have presented with pneumonia 4 days ago. Currently being treated. Patient feels much better. STOP Sleep Apnea STOP Sleep Apnea - director of industrial relations: STOP Sleep Apnea - director of industrial relations Hx Hypertension Yes 03/21/25 00:32 Hx Sleep [...] Tobacco Use History Tobacco Use History - director of industrial relations: Tobacco Use History - director of industrial relations Tobacco Use Smoking Status Current every day smoker 03/21/25 07:22 Hx Tobacco Use Yes 03/21/25 00:32 Years Smoking Packs Smoked per Day Smoking Cessation Date was within the last 15 years Hx Smoking Cessation Date Hx Smoking Cessation No 03/21/25 00:32 Counseling Hematologic Medial History Hematologic Hx - director of industrial relations: Hematologic Medical Hx - drier helper Hx of Blood Transfusion No 03/21/25 00:32 [...] confused, unrespo /Reproduction History /Reproductive History - director of industrial relations: /Reproductive Hx- director of industrial relations Hx Now No 03/24/25 22:56 Gestational Age [...] mls @ 15 mls/hr 03/21/25 00:24 IV .[id number] PRN Saline Flush Sodium Chloride 250 mls @ 15 mls/hr 03/21/25 00:24 IV .[id number] PRN Additional IVPB Infusion Lactated Ringer's 1,000 [...] Oral Tablet 20 [facility]eq [facility] Senna/Docusate Sodium 1 tablet 03/22/25 10:00 03/25/25 08:54 Senna/Docusate Sodium 1 Tablet PO Not Given BID KASH Sodium Chloride 10 - 40 ml 03/21/25 00:24 03/25/25 12:25 0.9% Saline Lock 10 Ml Syringe IV 10 ml UD PRN Administration SALINE FLUSH Spironolactone 25 mg 03/23/25 10:00 03/25/25 08:53 Spironolactone 25 Mg Tablet PO Not Given DAILY [facility] Protocol [facility] Medical History Cirrhosis MRSA (methicillin resistant staph [...] MD Cosigner Signature: Date CC: ~ Signed [facility]06-03-2025 Progress note Author Troy Akins [facility] Note Date/Time March 25, 2025 9:38a [facility] Medical Records Department [address] [place] [address] Progress Note - Hospitalist 03/25/25 0937 MR#: [id number] Acct: [id number] Name: AISHA HA Rep #:[id number] : 1965 60 From: Troy Akins MD PCP: Dr. Geovani Gay MD Status:ADM IN Location: [place] [address] Reason for Visit Reason for Visit: Diagnoses [...] documentation, 36Minutes Charges/Coding Visit Charges Inpatient E&M: 21753 Subs Hosp L2 03/25/25 0938 <Electronically signed by Troy Akins MD> Cosigner Signature (if applicable): CC: ~ Signed [facility] Work Phone: 1(444) 195-723006-03-2025 Progress note [facility] Medical Records Department [address] [address] Progress Note - Hospitalist 03/25/25 0937 MR#: [id number] Acct: [id number] Name: AISHA HA Rep #:[id number] : 1965 60 From: Troy Akins MD PCP: Dr. Geovani Gay MD Status:ADM IN Location: [place] [address] Reason for Visit Reason for Visit: Diagnoses [...] documentation, 36Minutes Charges/Coding Visit Charges Inpatient E&M: 82302 Subs Hosp L2 03/25/25 0938 Cosigner Signature (if applicable): CC: ~ Signed [facility]06-02-2025 Consult note Author Cal Bahena [facility] Note Date/Time March 24, 2025 7:19p m [facility] Medical Records Department [address] [place] [address] Consultation - GI 03/24/251912 MR#: [id number] Acct: [id number] Name: AISHA HA Rep #:[id number] : 1965 60 From: Cal Bahena DO PCP: Dr. Geovani Gay MD Status:ADM IN Location: [place] [address] HPI Consult Data Date of Consult: 03/24/25 [...] of the liver, which may represent fibrosis/cirrhosis. [facility] Medical History (Updated 03/24/25 @ 19:17 by [...] % (Auto) 69.6, Lymph % (Auto) 22.9, [place] % (Auto) 6.5, Eos % (Auto) 0.1, [...] past midnight Charges/Coding Visit Charges Inpatient E&M: 63368 Init Hosp L3 03/24/251918 <Electronically signed by Cal Bahena DO> Cosigner Signature (if applicable): CC: Dr. Geovani Gay MD~ [facility] Work Phone: 1(279) 498-602506-02-2025 Consult note [facility] Medical Records Department [address] [place] [address] Consultation - GI 03/24/251912 MR#: [id number] Acct: [id number] Name: AISHA HA Rep #:[id number] : 1965 60 From: Cal Bahena DO PCP: Dr. Geovani Gay MD Status:ADM IN Location: [place] [address] HPI Consult Data Date of Consult: 03/24/25 [...] of the liver, which may represent fibrosis/cirrhosis. [facility] Medical History (Updated 03/24/25 @ 19:17 by [...] % (Auto) 69.6, Lymph % (Auto) 22.9, [place] % (Auto) 6.5, Eos % (Auto) 0.1, [...] past midnight Charges/Coding Visit Charges Inpatient E&M: 56738 Init Hosp L3 03/24/251918 Cosigner Signature (if applicable): CC: Dr. Geovani Gay MD~ [facility]06-02-2025 Progress note Author Troy Akins [facility] Note Date/Time March 24, 2025 9:37a m [facility] Medical Records Department [address] [place] [address] Progress Note - Hospitalist 03/24/25 0829 MR#: [id number] Acct: [id number] Name: AISHA HA Rep #:[id number] : 1965 60 From: Troy Akins MD PCP: Dr. Geovani Gay MD Status:ADM IN Location: [place] [address] Reason for Visit Reason for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 business hours to return their call: Yes [facility] HospitalRcpvcn13-89-5065 Telephone encounter Note* Telephone Encounter - GARETH Calloway CNP - 01/29/2024 11:34 AM EDT Reviewed chart. Refill appropriate. RX sent. [facility] HospitalOxywbh83-20-2615 Miscellaneous Notes* Telephone Encounter - GARETH Calloway [...] 90 day 1 refill documented in this encounterSCleveland Clinic Children's Hospital for RehabilitationWhepye75-28-8345 Telephone encounter Note* Telephone Encounter - Karolina Gil MA - 01/29/2024 10:30 AM EDT Prescription Request: Last medication check: 12/08/23 Last physical exam: 06/15/23 Next scheduled appointment: 06/13/24 Last date of refill on this medication metoprolol 08/17/23 90 day 1 refill Omeprazole 07/24/23 90 day 1 refill [facility] HospitalZfhiif52-22-5166 Telephone encounter Note* Telephone Encounter - GARETH Calloway CNP - 12/18/2023 9:10 AM EST Reviewed chart. Refill appropriate. RX sent. [facility] HospitalCypdnk31-32-3279 Miscellaneous Notes* Telephone Encounter - GARETH Calloway [...] 1 with 3 refills documented in this encounterSCleveland Clinic Children's Hospital for RehabilitationVczniy89-88-4543 Telephone encounter Note* Telephone Encounter - Karolina Gil MA - 12/18/2023 8:47 AM EST Prescription Request: Last medication check: 12/21/22 Last physical exam: 06/15/23 Next scheduled appointment: 06/13/24 Last date of refill on this medication Vitamin d 10/03/23 4 capsules 1 refill Albuterol inhaler 03/07/23 1 with 3 refills [facility] HospitalItqwan35-03-1147 Evaluation + Plan note* Assessment & Plan Note - Geovani Gay MD - 12/08/2023 10:34 AM ESTAssociated Problem(s): Hypertension blood pressure was initially elevated, recheck was normal continue amlodipine 10 mg daily metoprolol 25 mg daily [facility] HospitalSrjufw16-74-6050 Miscellaneous Notes* Assessment & Plan Note - [...] Keppra 500 mg daily documented in this [facility]02-16-2024 Evaluation + Plan note* Assessment & Plan Note - Geovani Gay MD - 12/08/2023 10:33 AM EST Associated Problem(s): Current smoker We again discussed smoking cessation, her need to get off of this because of her bad lungs and alsocannot smoke because she is on oxygen. [place] [address]Tkbasj20-97-5794 Evaluation + Plan note* Assessment & Plan Note - Geovani Gay MD - 12/08/2023 10:33 AM ESTAssociated Problem(s): Anxiety Partial remission, continue Cymbalta 30 mg twice a day and alprazolam 1 mg at bedtime. [facility] HospitalQahvpe37-35-9443 Evaluation + Plan note* Assessment & Plan Note - Geovani Gay MD - 12/08/2023 10:33 AM ESTAssociated Problem(s): Depression Partial remission, continue Cymbalta 30 mg twice a day [place] [address]Upxszr23-41-8326 Evaluation + Plan note* Assessment & Plan Note - Geovani Gay MD - 12/08/2023 10:32 AM ESTAssociated Problem(s): Hyperlipidemia Controlled, continue atorvastatin 80 mg daily [place] [address]Ehiivf55-91-8449 Evaluation + Plan note* Assessment & Plan Note - Geovani Gay MD - 12/08/2023 10:32 AM ESTAssociated Problem(s): Hyponatremia Chronic, recommended that she add a little extra sodium to her diet [facility] HospitalUihdfw51-11-6243 Evaluation + Plan note* Assessment & Plan Note - Geovani Gay MD - 12/08/2023 10:29 AM ESTAssociated Problem(s): Vitamin D deficiency Stable, continue vitamin D 50,000 units weekly [place] [address]Ffxvuz26-76-3524 Evaluation + Plan note* Assessment & Plan Note - Geovani Gay MD - 12/08/2023 10:29 AM ESTAssociated Problem(s): Fibromyalgia Stable, continue Cymbalta 30 mg twice a day [place] [address]Lplloe98-61-0113 Evaluation + Plan note* Assessment & Plan Note - Geovani Gay MD - 12/08/2023 10:29 AM ESTAssociated Problem(s): GERD (gastroesophageal reflux disease) Stable, continue omeprazole 40 mg daily and Zofran for nausea. [place] [id number] Evaluation + Plan note* Assessment & Plan Note - Geovani Gay MD - 12/08/2023 10:28 AM ESTAssociated Problem(s): COPD (chronic obstructive pulmonary disease) (HCC) COPD stable continue Cymbalta, Spiriva Respimat, albuterol inhaler and DuoNeb solution for her nebulizer. [place] [id number] Evaluation + Plan note* Assessment & Plan Note - Geovani Gay MD - 12/08/2023 10:27 AM ESTAssociated Problem(s): Seizure disorder (CMS/HCC) (HCC) Stable, no recent seizures continue Tegretol 100 mg every 1212 hrs. and Keppra 500 mg daily [facility] Nktdfy57-19-8729 History of Present illness Narrative* Karolina Gil [...] MD 12/08/2023 10:35 AM documented in this [facility]12-14-2023 Evaluation + Plan note* Assessment & Plan Note - Geovani Gay MD - 10/05/2023 12:38 PM EST Associated Problem(s): Acute non-recurrent pansinusitis Augmentin 875 twice daily x 10 days. Prednisone take as directed x 10 days. Mucinex, avoid decongestants. [facility] HospitalOjqpdh78-15-7571 Miscellaneous Notes* Assessment & Plan Note - [...] accepted: Level of Service documented in this [facility]12-14-2023 Evaluation + Plan note* Assessment & Plan Note - Geovani Gay MD - 10/05/2023 12:37 PM EST Associated Problem(s): Hypertension Blood pressure was initially elevated, recheck was still little high we will have her follow-up in 1 to 2 weeks when she is feeling better. [facility] HospitalHeemwd26-15-1859 Evaluation + Plan note* Assessment & Plan Note - Geovani Gay MD - 10/05/2023 12:37 PM ESTAssociated Problem(s): Bronchitis Augmentin 875 twice daily. Prednisone use as directed. Continue inhalers and nebulizers. [facility] HospitalMrmrob22-07-8628 History of Present illness Narrative* Jenelle Garcia [...] MD 10/06/2023 12:47 PM documented in this [facility]12-14-2023 Note* Addendum Note - Geovani Gay MD - 10/05/2023 10:15 AM ESTAddended by: GEOVANI GAY on: 10/06/2023 12:48 PM Modules accepted: Level of Service [facility] HospitalSgegyw81-03-8684 Telephone encounter Note* Telephone Encounter - GARETH Calloway CNP - 10/03/2023 12:09 PM EST Reviewed chart. Refill appropriate. RX sent. [address]Lktvhz60-44-1945 Miscellaneous Notes* Telephone Encounter - GARETH Calloway [...] 90 days 1 refill documented in this [facility]12-12-2023 Telephone encounter Note* Telephone Encounter - Chasity Valenzuela MA - 10/03/2023 11:08 AM EST Prescription Request: Last medication check: 09/08/23 Last physical exam: 06/15/23 Next scheduled appointment: 12/08/23 Last date of refill on this medication Vitamin D 07/24/23 4 capsules 1 refill Lisinopril 06/22/23 90 days 1 refill [place] [id number] Telephone encounter Note* Telephone Encounter - Chasity Valenzuela MA - 10/03/2023 11:07 AM EST Prescription Request: Last medication check: 09/08/23 Last physical exam: 06/15/23 Next scheduled appointment: 12/08/23 Last date of refill on this medication Keppra 06/22/23 90 days 1 refill Carbamazapine 06/22/23 90 days 1 [address]ill [address]Vzqpyc47-57-0073 Miscellaneous Notes* Telephone Encounter - Chasity Valenzuela MA - 10/03/2023 11:07 AM EST Prescription Request: Last medication check: 09/08/23 Last physical exam: 06/15/23 Next scheduled appointment: 12/08/23 Last date of refill on this medication Keppra 06/22/23 90 days 1 refill Carbamazapine 06/22/23 90 days 1 refill documented in this encounterSCleveland Clinic Children's Hospital for RehabilitationDzmndf04-16-1367 Telephone encounter Note* Telephone Encounter - GARETH Calloway CNP - 09/22/2023 10:52 AM EST Reviewed chart. Refill appropriate. RX sent. [address]Bldsvl85-96-0797 Miscellaneous Notes* Telephone Encounter - GARETH Calloway [...] 05/22/2023 (O) Report Adh: Taking: Long-term: Pharmacy: [facility]/pharmacy #[id number] - [place], [place] - [address] [...] up the medication: Yes documented in this [facility]12-01-2023 Telephone encounter Note* Telephone Encounter - Rhina Barker - 09/22/2023 10:17 AM EST Images from the original note were not included. Medication name: tiotropium (Spiriva Respimat) 2.5 MCG/ACT inhaler 3 ordered Summary: INHALE 2 PUFFS AT THE SAME TIME EVERY DAY, Normal Start: 05/22/2023 Ord/Sold: 05/22/2023 (O) Report Adh: Taking: Long-term: Pharmacy: [facility]/pharmacy #[id number] - [place], [place] - [address] [...] prior to picking up the medication: Yes [facility] HospitalWbvtge95-28-4749 Telephone encounter Note* Telephone Encounter - GARETH Calloway CNP - 09/11/2023 12:50 PM EST Reviewed chart. Refill appropriate. RX sent. [facility] HospitalAhaych28-27-9967 Miscellaneous Notes* Telephone Encounter - GARETH Calloway CNP - 09/11/2023 12:50 PM EST Reviewed chart. Refill appropriate. RX sent. * Telephone Encounter - Jenelle Garcia MA - 09/11/2023 11:30 AM EST Prescription Request: Last medication check: 12-21-22 Last physical exam: 06-15-23 Next scheduled appointment: 12/08/23 Last date of refill on this medication 03/07/23 documented in this [facility]11-20-2023 Telephone encounter Note* Telephone Encounter - Jenelle Garcia MA - 09/11/2023 11:30 AM EST Prescription Request: Last medication check: 12-21-22 Last physical exam: 06-15-23 Next scheduled appointment: 12/08/23 Last date of refill on this medication 03/07/23 [place] [id number] Evaluation + Plan note* Assessment & Plan Note - Geovani Gay MD - 09/08/2023 11:35 AM ESTAssociated Problem(s): Anxiety Partial remission, continue Cymbalta 30 mg twice a day and Xanax as needed. [place] [address]Hsfbiv95-55-0429 Evaluation + Plan note* Assessment & Plan Note - Geovani Gay MD - 09/08/2023 11:35 AM ESTAssociated Problem(s): Depression Partial remission, continue Cymbalta 30 mg twice a day [facility] HospitalCsdivy55-22-1519 Miscellaneous Notes* Assessment & Plan Note - [...] * Assessment & Plan Note - Geovani Gya MD - 09/08/2023 11:32 AM EST Associated Problem(s): COPD (chronic obstructive pulmonary disease) (HCC) Stable, continue current inhalers, Cymbalta and 60 days 4.5, Spiriva Respimat and albuterol and DuoNeb solution for nebulizer. documented in this [facility]11-17-2023 Evaluation + Plan note* Assessment & Plan Note - Geovani Gay MD - 09/08/2023 11:34 AM EST Associated Problem(s): Chronic nausea Uncontrolled, continue Zofran 4 mg twice a day [facility] HospitalSnfqwu76-90-6579 Evaluation + Plan note* Assessment & Plan Note - Geovani Gay MD - 09/08/2023 11:34 AM ESTAssociated Problem(s): GERD (gastroesophageal reflux disease) Stable, continue omeprazole 40 mg daily [place] [address]Lgsirn06-74-7903 Evaluation + Plan note* Assessment & Plan Note - Geovani Gay MD - 09/08/2023 11:33 AM ESTAssociated Problem(s): Hypertension Controlled, continue amlodipine 10 mg and lisinopril 20 mg and metoprolol 25 mg daily. [facility] HospitalMmzazf37-72-7794 Evaluation + Plan note* Assessment & Plan Note - Geovani Gay MD - 09/08/2023 11:32 AM ESTAssociated Problem(s): COPD (chronic obstructive pulmonary disease) (HCC) Stable, continue current inhalers, Cymbalta and 60 days 4.5, Spiriva Respimat and albuterol and DuoNeb solution for nebulizer. [place] [address]Suiwiy06-88-8745 History of Present illness Narrative* Karolina Gil [...] of major depressive disorder, unspecified whether recurrent ([facility]) Assessment & Plan: Partial remission, continue Cymbalta [...] any adverse reaction immediately. documented in this [facility]10-26-2023 Telephone encounter Note* Telephone Encounter - GARETH Calloway CNP - 08/17/2023 4:48 PM EDT Reviewed chart. Refill appropriate. RX sent. [facility] HospitalOcoyhq88-80-4054 Miscellaneous Notes* Telephone Encounter - GARETH Calloway CNP - 08/17/2023 4:48 PM EDT Reviewed chart. Refill appropriate. RX sent. * Telephone Encounter - Jenelle Garcia MA - 08/17/2023 3:02 PM EDT Prescription Request: Last medication check: 12-21-22 Last physical exam: 06-15-23 Next scheduled appointment: 09-04-23 Last date of refill on this medication 12/22/22 documented in this [facility]10-26-2023 Telephone encounter Note* Telephone Encounter - Jenelle Garcia MA - 08/17/2023 3:02 PM EDT Prescription Request: Last medication check: 12-21-22 Last physical exam: 06-15-23 Next scheduled appointment: 09-04-23 Last date of refill on this medication 12/22/22 [facility] HospitalNhpdwh68-02-5778 Telephone encounter Note* Telephone Encounter - GARETH Calloway CNP - 07/24/2023 3:46 PM EDT Reviewed chart. Refill appropriate. RX sent. [place] [address]Lvdwzw73-58-3422 Miscellaneous Notes* Telephone Encounter - GARETH Calloway CNP - 07/24/2023 3:46 PM EDT Reviewed chart. Refill appropriate. RX sent. * Telephone Encounter - Mirella Sanders - 07/24/2023 2:45 PM EDT Prescription Request: Last medication check: 12-21-22 Last physical exam: 06-15-23 Next scheduled appointment: 09-04-23 Last date of refill on this medication 01-30-23 documented in this encounterSCleveland Clinic Children's Hospital for RehabilitationNxnsft95-06-1603 Telephone encounter Note* Telephone Encounter - GARETH Calloway CNP - 07/24/2023 3:45 PM EDT Reviewed chart. Refill appropriate. RX sent. [place] [address]Exybsz18-91-0664 Miscellaneous Notes* Telephone Encounter - GARETH Calloway CNP - 07/24/2023 3:45 PM EDT Reviewed chart. Refill appropriate. RX sent. * Telephone Encounter - Mirella Sanders - 07/24/2023 2:49 PM EDT Prescription Request: Last medication check: 12-21-22 Last physical exam: 06-15-23 Next scheduled appointment: 09-04-23 Last date of refill on this medication 04-17-23 documented in this [facility]10-02-2023 Telephone encounter Note* Telephone Encounter - Mirella Sanders - 07/24/2023 2:49 PM EDT Prescription Request: Last medication check: 12-21-22 Last physical exam: 06-15-23 Next scheduled appointment: 09-04-23 Last date of refill on this medication 04-17-23 [facility] HospitalEzmlpy72-71-8083 Telephone encounter Note* Telephone Encounter - Mirella Sanders - 07/24/2023 2:45 PM EDT Prescription Request: Last medication check: 12-21-22 Last physical exam: 06-15-23 Next scheduled appointment: 09-04-23 Last date of refill on this medication 01-30-23 [facility] HospitalHdgojw58-45-6557 Telephone encounter Note* Telephone Encounter - GARETH Calloway CNP - 06/22/2023 11:49 AM EDT Reviewed chart. Refill appropriate. RX sent. [facility] HospitalHpvdua81-43-4239 Miscellaneous Notes* Telephone Encounter - GARETH Calloway CNP - 06/22/2023 11:49 AM EDT Reviewed chart. Refill appropriate. RX sent. * Telephone Encounter - Dania Trinidad - 06/22/2023 10:10 AM EDT Prescription Request: Last medication check: 09/07/22 Last physical exam: 06/15/23 Next scheduled appointment: 09/04/23 documented in this [place] [id number] Telephone encounter Note* Telephone Encounter - Dania Trinidad - 06/22/2023 10:10 AM EDT Prescription Request: Last medication check: 09/07/22 Last physical exam: 06/15/23 Next scheduled appointment: 09/04/23 [place] [id number] Telephone encounter Note* Telephone Encounter - Dania Trinidad - 06/22/2023 10:06 AM EDT Prescription Request: Last medication check: 09/07/22 Last physical exam: 06/15/23 Next scheduled appointment: 09/04/23 [place] [id number] Miscellaneous Notes* Telephone Encounter - Dania Trinidad - 06/22/2023 10:06 AM EDT Prescription Request: Last medication check: 09/07/22 Last physical exam: 06/15/23 Next scheduled appointment: 09/04/23 documented in this [place] [address]-28-2023 Telephone encounter Note* Telephone Encounter - Chasity Valenzuela MA - 06/19/2023 2:40 PM EDT [address]. [address]Qlnqpo46-20-1367 Miscellaneous Notes* Telephone Encounter - Chasity Valenzuela [...] 12/22/22 10.5g 5 refills documented in this encounterSCleveland Clinic Children's Hospital for RehabilitationSicmsj10-08-6486 Telephone encounter Note* Telephone Encounter - GARETH Fragoso CNP - 06/19/2023 12:42 PM EDT Rx sent. Due for follow up in August- please schedule. [place] [id number] Telephone encounter Note* Telephone Encounter - Chasity Valenzuela MA - 06/19/2023 11:18 AM EDT Prescription Request: Last medication check: 12/21/22 Last physical exam: 06/15/23 Next scheduled appointment: none Last date of refill on this medication 12/22/22 10.5g 5 refills [place] [address]Dfompj96-09-7641 Evaluation + Plan note* Assessment & Plan [...] get her set up with oxygen IGNACIA [facility] HospitalSdltxn78-02-4975 Evaluation + Plan note* Assessment & Plan Note - Geovani Gay MD - 06/15/2023 10:42 AM EDTAssociated Problem(s): Hyperlipidemia Controlled, continue a atorvastatin 80 mg daily T [facility] HospitalTpucgq57-47-1240 Evaluation + Plan note* Assessment & Plan Note - Geovani Gay MD - 06/15/2023 10:42 AM EDTAssociated Problem(s): Depression Partial remission, follow-up with psychiatry as scheduled T [place] [id number] Evaluation + Plan note* Assessment & Plan Note - Geovani Gay MD - 06/15/2023 10:42 AM EDTAssociated Problem(s): Current smoker Discussed smoking cessation and especially if she will be on oxygen she cannot smoke. She agrees. [place] [address]-24-2023 Miscellaneous Notes* Assessment & Plan Note - [...] with neurology as scheduled. documented in this [facility]08-24-2023 Evaluation + Plan note* Assessment & Plan Note - Geovani Gay MD - 06/15/2023 10:41 AM EDT Associated Problem(s): Anxiety Stable, currently off of BuSpar continue Xanax as needed follow-up with psychiatry as needed. [facility] HospitalDmqwcu63-02-2282 Evaluation + Plan note* Assessment & Plan Note - Geovani Gay MD - 06/15/2023 10:41 AM EDTAssociated Problem(s): Vitamin D deficiency Stable, continue vitamin D 50,000 units weekly [facility] HospitalFsphjl18-59-8754 Evaluation + Plan note* Assessment & Plan Note - Geovani Gay MD - 06/15/2023 10:40 AM EDTAssociated Problem(s): Fibromyalgia Stable, continue Cymbalta 30 mg twice a day [facility] HospitalZimqyd87-83-0827 Evaluation + Plan note* Assessment & Plan Note - Geovani Gay MD - 06/15/2023 10:40 AM EDTAssociated Problem(s): Hypertension Blood pressure was initially elevated, recheck was normal continue metoprolol 25 mg daily and lisinopril 20 mg daily and amlodipine 10 mg daily [place] [id number] Evaluation + Plan note* Assessment & Plan Note - Geovani Gay MD - 06/15/2023 10:39 AM EDTAssociated Problem(s): COPD (chronic obstructive pulmonary disease) (HCC) Stable, continue Symbicort 160/4.5, Spiriva 2.5 mcg and albuterol as needed. We will check her oxygen saturation walking and then with oxygen on to see if she qualifies for oxygen. [facility] HospitalZlwlyh37-53-6367 Evaluation + Plan note* Assessment & Plan Note - Geovani Gay MD - 06/15/2023 10:38 AM EDTAssociated Problem(s): Asthma Stable, currently using Symbicort 160/4.5, Spiriva 2.5 mcg and albuterol as needed. [facility] HospitalXjcttd24-46-4949 Evaluation + Plan note* Assessment & Plan Note - Geovani Gay MD - 06/15/2023 10:38 AM EDTAssociated Problem(s): Seizure disorder (CMS/HCC) (HCC) Stable, continue Keppra and Tegretol at current doses, follow-up with neurology as scheduled. [facility] HospitalHjzicg27-80-6184 History of Present illness Narrative* Karolina Gil [...] I am unable to verify coverage on Whi website/GZU37-rqyquw/Had 3 COVID vaccines/TDAP/TD-declines, doesn't think insurance will [...] any adverse reaction immediately. documented in this encounterSCleveland Clinic Children's Hospital for [id number] Telephone encounter Note* Telephone Encounter - GARETH Calloway CNP - 05/22/2023 2:09 PM EDT Reviewed chart. Refill not appropriate, too soon. RX refused [id number] Miscellaneous Notes* Telephone Encounter - GARETH Calloway CNP - 05/22/2023 2:09 PM EDT Reviewed chart. Refill not appropriate, too soon. RX refused * Telephone Encounter - Dania Trinidad - 05/22/2023 10:54 AM EDT Prescription Request: Last medication check: 12/21/22 Last physical exam: 06/13/22 Next scheduled appointment: 06/15/23 Last date of refill on this medication 12/22/22 documented in this [facility]07-31-2023 Telephone encounter Note* Telephone Encounter - GARETH Calloway CNP - 05/22/2023 11:07 AM EDT Reviewed chart. Refill appropriate. RX sent. [place] [id number] Miscellaneous Notes* Telephone Encounter - GARETH Calloway CNP - 05/22/2023 11:07 AM EDT Reviewed chart. Refill appropriate. RX sent. * Telephone Encounter - Dania Trinidad - 05/22/2023 10:53 AM EDT Prescription Request: Last medication check: 12/21/22 Last physical exam: 06/13/22 Next scheduled appointment: 06/15/23 Last date of refill on this medication 01/30/23 documented in this [place] [id number] Telephone encounter Note* Telephone Encounter - Dania Trinidad - 05/22/2023 10:54 AM EDT Prescription Request: Last medication check: 12/21/22 Last physical exam: 06/13/22 Next scheduled appointment: 06/15/23 Last date of refill on this medication 12/22/22 [place] [id number] Telephone encounter Note* Telephone Encounter - Dania Trinidad - 05/22/2023 10:53 AM EDT Prescription Request: Last medication check: 12/21/22 Last physical exam: 06/13/22 Next scheduled appointment: 06/15/23 Last date of refill on this medication 01/30/23 [id number]phone encounter Note* Telephone Encounter - GARETH Fragoso CNP - 05/08/2023 9:45 AM EDT Rx sent for Zofran. Lisinopril should not be due for refill until June. [place] [id number] Miscellaneous Notes* Telephone Encounter - GARETH Fragoso [...] Zofran 11-15-22 Lisinopril 12-22-22 documented in this encounterSCleveland Clinic Children's Hospital for [id number] Telephone encounter Note* Telephone Encounter - Mirella Sanders - 05/08/2023 9:29 AM EDT Prescription Request: Last medication check: 12-21-22 Last physical exam: 06-13-22 Next scheduled appointment: 06-15-23 Last date of refill on this medication Zofran 11-15-22 Lisinopril 12-22-22 [id number] Telephone encounter Note* Telephone Encounter - GARETH Fragoso CNP - 04/17/2023 12:59 PM EDT Rx sent. Follow up as scheduled. [id number] Miscellaneous Notes* Telephone Encounter - GARETH Fragoso CNP - 04/17/2023 12:59 PM EDT Rx sent. Follow up as scheduled. * Telephone Encounter - Jenelle Garcia MA - 04/17/2023 11:04 AM EDT Prescription Request: Last medication check: 12/21/22 Last physical exam: 06/13/22 Next scheduled appointment: 06/15/23 Last date of refill on this medication 01/11/23 documented in this encounterSCleveland Clinic Children's Hospital for [id number] Telephone encounter Note* Telephone Encounter - Jenelle Garcia MA - 04/17/2023 11:04 AM EDT Prescription Request: Last medication check: 12/21/22 Last physical exam: 06/13/22 Next scheduled appointment: 06/15/23 Last date of refill on this medication 01/11/23 [id number] Telephone encounter Note* Telephone Encounter - GARETH Calloway CNP - 03/01/2023 7:29 AM EDT Reviewed chart. Refill appropriate. RX sent. [facility] [id number] Miscellaneous Notes* Telephone Encounter - GARETH Calloway [...] refill on both meds documented in this encounterSCleveland Clinic Children's Hospital for [id number] Telephone encounter Note* Telephone Encounter - Karolina Gil MA - 03/01/2023 6:57 AM EDT Prescription Request: Last medication check: 12/21/22 Last physical exam: none Next scheduled appointment: 06/15/23 CSA on file (date): na Last urine drug screen: na Last date of refill on this medication 09/19/22 90 day 1 refill on both meds [id number] Telephone encounter Note* Telephone Encounter - GARETH Calloway CNP - 01/30/2023 10:50 AM EDT Reviewed chart. Refill appropriate. RX sent. [facility] [id number] Miscellaneous Notes* Telephone Encounter - GARETH Calloway CNP - 01/30/2023 10:50 AM EDT Reviewed chart. Refill appropriate. RX sent. * Telephone Encounter - Jenelle Garcia MA - 01/30/2023 9:37 AM EDT Prescription Request: Last medication check: 12/21/22 Last physical exam: 06/13/22 Next scheduled appointment: 06/15/23 Last date of refill on this medication: 10/27/22 documented in this [place] [id number] Telephone encounter Note* Telephone Encounter - GARETH Calloway CNP - 01/30/2023 10:48 AM EDT Reviewed chart. Refill appropriate. RX sent. [facility] [id number] Miscellaneous Notes* Telephone Encounter - GARETH Calloway CNP - 01/30/2023 10:48 AM EDT Reviewed chart. Refill appropriate. RX sent. * Telephone Encounter - Jenelle Garcia MA - 01/30/2023 9:36 AM EDT Prescription Request: Last medication check: 12/21/22 Last physical exam: 06/13/22 Next scheduled appointment: 06/15/23 Last date of refill on this medication: 09/19/22 documented in this [place] [id number] Telephone encounter Note* Telephone Encounter - Jenelle Garcia MA - 01/30/2023 9:37 AM EDT Prescription Request: Last medication check: 12/21/22 Last physical exam: 06/13/22 Next scheduled appointment: 06/15/23 Last date of refill on this medication: 10/27/22 [id number] Telephone encounter Note* Telephone Encounter - Jenelle Garcia MA - 01/30/2023 9:36 AM EDT Prescription Request: Last medication check: 12/21/22 Last physical exam: 06/13/22 Next scheduled appointment: 06/15/23 Last date of refill on this medication: 09/19/22 [facility] [id number] Telephone encounter Note* Telephone Encounter - Jenelle Garcia MA - 01/11/2023 2:22 PM EDT Prescription Request: Last medication check: yesterday Last physical exam: 06/13/22 Next scheduled appointment: 06/15/22 Last date of refill on this medication 12/14/22 [facility] HospitalItbqro13-70-2396 Miscellaneous Notes* Telephone Encounter - Jenelle Garcia MA - 01/11/2023 2:22 PM EDT Prescription Request: Last medication check: yesterday Last physical exam: 06/13/22 Next scheduled appointment: 06/15/22 Last date of refill on this medication 12/14/22 documented in this encounterSCleveland Clinic Children's Hospital for RehabilitationHumpnb21-42-1335 Procedure [facility]03-13-2023 Procedure [facility]03-13-2023 Procedure [facility]03-13-2023 Procedure [facility]03-13-2023 History and physical note Author Cal Friend [facility] January 02, 2023 9:00am Note Date/Time January 02, 2023 9:0 0[facility] Medical Records Department [address] [place] [address] History & Physical Exam 01/02/23 0900 MR#: [id number] Acct: [id number] Name: AISHA HA Rep #:[id number] : 1965 57 From: Cal Friend PCP: Dr. Geovani Gay MD Status:[facility] Location: [place] [address] History and Physical Date of Admission: 01/02/23 [...] I'm an alcoholic. Had cholecystectomy 04/2022 in [place], no change in GI symptoms after surgery.Takes [...] General: no jaundice Quality Reporting Tobacco Screening ([facility]) Smoking Status: Current every day smoker [...] Geovani Gay MD; Cal Bahena DO~ Signed [facility] Work Phone: 1(625) 892-439403-02-2023 Telephone encounter Note* Telephone Encounter - Dania Trinidad - 12/22/2022 12:02 PM EST Prescription Request: Last medication check: yesterday Last physical exam: 06/13/22 Next scheduled appointment: 06/15/22 Last date of refill on this medication Metoprolol 09/19/22 Symbicort 06/22/22 Norvasc 09/19/22 Lipitor 09/19/22 [facility] [id number] Miscellaneous Notes* Telephone Encounter - Dania Trinidad - 12/22/2022 12:02 PM EST Prescription Request: Last medication check: yesterday Last physical exam: 06/13/22 Next scheduled appointment: 06/15/22 Last date of refill on this medication Metoprolol 09/19/22 Symbicort 06/22/22 Norvasc 09/19/22 Lipitor 09/19/22 documented in this [facility]03-[facility]-2023 Telephone encounter Note* Telephone Encounter - Dania Trinidad - 12/22/2022 12:01 PM EST Prescription Request: Last medication check: yesterday Last physical exam: 06/13/22 Next scheduled appointment: 06/15/22 Last date of refill on this medication 05/30/22 [place] [id number] Miscellaneous Notes* Telephone Encounter - Dania Trinidad - 12/22/2022 12:01 PM EST Prescription Request: Last medication check: yesterday Last physical exam: 06/13/22 Next scheduled appointment: 06/15/22 Last date of refill on this medication 05/30/22 documented in this [facility]03-[facility]23 Evaluation + Plan note* Assessment & Plan Note - Geovani Gay MD - 12/21/2022 5:21 PM EST Associated Problem(s): Hyperlipidemia Controlled, continue atorvastatin 80 mg daily [facility] HospitalFlcvyz04-84-2923 Miscellaneous Notes* Assessment & Plan Note - [...] Keppra 500 mg daily. documented in this [facility]03-01-2023 Evaluation + Plan note* Assessment & Plan Note - Geovani Gay MD - 12/21/2022 5:20 PM EST Associated Problem(s): Anxiety Stable, continue BuSpar 20 mg 3 times a day and Xanax as needed [facility] [id number] Evaluation + Plan note* Assessment & Plan Note - Geovani Gay MD - 12/21/2022 5:19 PM ESTAssociated Problem(s): Depression Partial remission, continue Lexapro 20 mg daily [facility] [id number] Evaluation + Plan note* Assessment & Plan Note - Geovani Gay MD - 12/21/2022 5:19 PM ESTAssociated Problem(s): GERD (gastroesophageal reflux disease) Controlled, continue omeprazole 40 mg daily [facility] HospitalMlsrnj93-71-7938 Evaluation + Plan note* Assessment & Plan Note - Geovani Gay MD - 12/21/2022 5:18 PM ESTAssociated Problem(s): Hypertension Controlled, continue metoprolol 25 mg daily, lisinopril 20 mg twice a day and amlodipine 10 mg daily [facility] HospitalYrynfo98-71-0414 Evaluation + Plan note* Assessment & Plan Note - Geovani Gay MD - 12/21/2022 5:17 PM ESTAssociated Problem(s): COPD (chronic obstructive pulmonary disease) (HCC) Stable, continue Symbicort, Spiriva Respimat and albuterol and stop smoking. [facility] [id number] Evaluation + Plan note* Assessment & Plan Note - Geovani Gay MD - 12/21/2022 5:17 PM ESTAssociated Problem(s): Seizure disorder (CMS/HCC) ([facility]) Stable, continue Tegretol 200 mg twice a day and Keppra 500 mg daily. [facility] HospitalZznutc26-36-2736 History of Present illness Narrative* Geovani Gay [...] MD 12/21/2022 5:21 PM documented in this [facility]02-21-2023 Telephone encounter Note* Telephone Encounter - Chasity Valenzuela - 12/13/2022 4:30 PM EST Prescription Request: Last medication check: 12/13/21 Last physical exam: 06/13/22 Next scheduled appointment: 12/14/22 Last date of refill on this medication 09/30/22 4 capsules 2 refills [facility] HospitalGsckfr84-74-2075 Miscellaneous Notes* Telephone Encounter - Chasity Valenzuela - 12/13/2022 4:30 PM EST Prescription Request: Last medication check: 12/13/21 Last physical exam: 06/13/22 Next scheduled appointment: 12/14/22 Last date of refill on this medication 09/30/22 4 capsules 2 refills documented in this [facility]01-05-2023 Telephone encounter Note* Telephone Encounter - Jenelle Garcia MA - 10/27/2022 3:24 PM EST Prescription Request: Last medication check: 09/07/2022 Last physical exam: 06/13/22 Next scheduled appointment: 11/16/2022 Last date of refill on this medication: spiriva 06/27/22, zofran 10/07/22 [facility] [id number] Miscellaneous Notes* Telephone Encounter - Jenelle Garcia MA - 10/27/2022 3:24 PM EST Prescription Request: Last medication check: 09/07/2022 Last physical exam: 06/13/22 Next scheduled appointment: 11/16/2022 Last date of refill on this medication: spiriva 06/27/22, zofran 10/07/22 documented in this [facility]07-06-2022 History of Present illness Narrative* Karolina Roa [...] nc [facility] Work Phone: [phone]) 802-218406-27-2022 Hospital Discharge instructions* Instructions* Silvia Santana RN [...] Work Phone: Consult note Author Jef Herman [facility] Note Date/Time March 25, 2025 4:15p [facility] Medical Records Department [address] [place] [address] Anesthesia Postop Eval I 06/03/25 1614 MR#: [id number] Acct: [id number] Name: AISAH HA Rep #:[id number] : 1965 60 From: Jef LOJA PCP: Dr. Geovani Gay MD Status:ADM IN Y Race: C Location: [place] [address] 12-21 Anesthesia: Postop Eval I Current Vital [...] CRNA Cosigner Signature: Date CC: ~ Signed [facility] Work Phone: Consult note Author Jef [facility] Note Date/Time March 25, 2025 5:26p [facility] Medical Records Department [address] [place] [address] Anesthesia Postop Eval II 03/25/25 1617 MR#: [id number] Acct: [id number] Name: AISHA HA Rep #:[id number] : 1965 60 From: Jef LOJA PCP: Dr. Geovani Gay MD Status:ADM IN Y Race: C Location: [place] [address] 12-21 Anesthesia Postop Eval I Sum Postop Eval Completion status Anesthesia document: Postop Eval 1 completed: Yes Anesthesia Postop Eval I Summary Anesthesia Postop Eval I Summary: Anesthesia Postop Eval I: Assessment Summary Airway patent Yes 03/25/25 16:15 [employer]EV[employer]OPMENT SITE MANAGER.MDOT Spontaneous unlabored Yes 03/25/25 16:15 [employer] REDEVELOPMENT SITE MANAGER.MDOT respirations Mental status Awake,Calm 03/25/25 16:15 [employer]EV[employer] SITE MANAGER.MDOT nausea No 03/25/25 16:15 [employer]EVEL[employer] SITE MANAGER.MDOT Vomiting No 03/25/25 16:15 [employer] REDEVELOPMENT SITE MANAGER.MDOT Anesthesia Postop Eval I: Fluid Summary Crystalloid volume administer 300 03/25/25 16:15 [employer]OWN[employer] REDEVELOPMENT SITE MANAGER.MDOT (ml) Colloids volume administered ( ml) Blood Product volume administered (ml) Total IV fluid infused 300 03/25/25 16:15 [employer]OWN[employer] REDEVELOPMENT SITE MANAGER.NORBERT Anesthesia Postop Eval I: Summary Notes Anesthesia Complication No 03/25/25 16:15 [employer]EVELOPMENT SITE MANAGER.NORBERT Anesthesia Complication Comment: Post-operative progress note Anesthesia: Postop Eval II Evaluation Mental status: Awake and Calm Pain Level: 0 nausea: No Vomiting: No Complications Anesthesia Complication: No 03/25/25 1617 <Electronically signed by Jef Herman CRNA> Date _ Jef Herman CRNA Cosigner Signature: Date CC: ~ Signed [facility] Work Phone: Discharge summary Author Troy Molinalia [facility] Note Date/Time March 25, 2025 5:04p [facility] Medical Records Department [address] [facility] [place] [address] Discharge Summary 03/25/25 1652 MR#: [id number] Acct: [id number] Name: AISHA HA Emma Rep #:[id number] : 1965 60 From: Troy Akins MD PCP: Dr. Geovani Gay MD Status:ADM IN Location: [facility] [id number] Providers Date of Admission: 03/20/25 Date [...] Self Care Charges/Coding Visit Charges Inpatient E&M: 09753 Disch Hosp >30min 03/25/25 1704 <Electronically signed by Troy Akins MD> Cosigner Signature (if applicable): CC: Dr. Geovani Gay MD; Dr. Troy Akins MD~ Signed [facility] Work Phone: Evaluation note* Diagnosis Chronic nausea Nausea alone RUQ abdominal pain Abdominal pain, right upper quadrant documented in this encounter [employer] Work Phone: Evaluation note* Diagnosis Onset Date Resolution Status Nicotine dependence, cigarettes, uncomplicated acute Asthma-COPD overlap syndrome chronic Chronic cholecystitis chroni c Cholelithiasis acute Nausea acute COPD chronic [facility] Work Phone: Evaluation note* Diagnosis Seizure disorder (HCC) Unspecified epilepsy without mention of intractable epilepsy documented in this encounter [facility] Work Phone: evaluation note* Diagnosis Calculus of gallbladder with acute on chronic cholecystitis without obstruction- Primary [facility]* Diagnosis Lung nodule Solitary pulmonary nodule documented in this encounter [facility] Work Phone: evaluation note* Diagnosis Onset Date Resolution Status Alcohol use disorder acute Colon polyps acute Gastric reflux acute Nausea acute [facility] Work Phone: evaluation note* Diagnosis Vitamin D deficiency, unspecified [facility] Diagnosis Chronic nausea Nausea alone [facility]* Diagnosis Onset Date Resolution Status Alcohol use disorder acute Colon polyps acute Gastric reflux acute Nausea acute Cirrhosis chronic [facility] Work Phone: evaluation note* Diagnosis Epilepsy, unspecified, not intractable, without status epilepticus (HCC) [facility]* Diagnosis Vitamin D deficiency, unspecified [facility]* Diagnosis Annual physical exam- Primary Routine [...] streptococcus pneumoniae (pneumococcus) [facility]* Diagnosis Chronic obstructive pulmonary disease, unspecified (HCC) [facility]* Diagnosis Epilepsy, unspecified, not intractable, without status epilepticus (HCC) [facility]* Diagnosis Multiple lung nodules on CT [facility]* Diagnosis Vitamin D deficiency, unspecified [facility]* Diagnosis Chronic nausea Nausea alone [facility]* Diagnosis Primary hypertension Unspecified essential hypertension [...] Hyposmolality and/or hyponatremia [facility]* Diagnosis Acute non-recurrent frontal sinusitis- [...] nausea Nausea alone [facility]* Diagnosis Acute non-recurrent frontal sinusitis- Primary Primary hypertension Unspecified essential hypertension Seizure disorder ([facility]) ([facility])- Primary Unspecified epilepsy without mention of intractable epilepsy Chronic obstructive pulmonary disease, unspecified COPD type (HCC) Primary hypertension Unspecified essential hypertension Gastroesophageal reflux disease without esophagitis Esophageal reflux Mixed hyperlipidemia Current mild episode of major depressive disorder, unspecified whether recurrent (HCC) Anxiety Anxiety state, unspecified Annual physical exam- Primary Routine general medical examination at a health care facility Seizure disorder ([facility]) ([facility]) Unspecified epilepsy without mention of intractable epilepsy Moderate asthma, unspecified whether complicated, unspecified whether persistent Chronic obstructive pulmonary disease, unspecified COPD type ([facility]) Primary hypertension Unspecified essential hypertension Fibromyalgia Unspecified [...] unspecified COPD type (HCC)- Primary Seizure disorder ([facility]) ([facility]) Unspecified epilepsy without mention of intractable epilepsy [...] Chronic obstructive pulmonary disease, unspecified COPD type ([facility])- Primary Abnormal liver function tests Hyponatremia Hyposmolality and/or hyponatremia Falls frequently Personal history of fall Ascites due to chronic alcoholic hepatitis Iron deficiency anemia, unspecified iron deficiency anemia type Generalized weakness Chronic obstructive pulmonary disease, unspecified ([facility])- Primary Primary hypertension Unspecified essential hypertension Hyperlipidemia, unspecified hyperlipidemia type Epilepsy, unspecified, not intractable, without status epilepticus (HCC) Vitamin D deficiency, unspecified Alcoholic cirrhosis of liver with ascites (CMS/HCC) (HCC) Chronic respiratory failure with hypoxia ([facility]) Hyponatremia Hyposmolality and/or hyponatremia Moderate asthma, unspecified whether complicated, unspecified whether persistent- Primary Chronic obstructive pulmonary disease, unspecified COPD type (HCC) Chronic respiratory failure with hypoxia (HCC) Primary hypertension Unspecified essential hypertension Nonintractable epilepsy without status epilepticus, unspecified epilepsy type (HCC) Gastroesophageal reflux disease without esophagitis Esophageal reflux Mixed hyperlipidemia Hyponatremia Hyposmolality and/or hyponatremia COPD with acute exacerbation ([facility])- Primary Acute non-recurrent frontal sinusitis Chronic obstructive [...] Chronic obstructive pulmonary disease, unspecified COPD type ([facility]) Primary hypertension Unspecified essential hypertension Fibromyalgia Unspecified [...] myalgia and myositis [facility] Diagnosis Acute non-recurrent frontal sinusitis- Primary Primary hypertension Unspecified essential hypertension Seizure disorder ([facility]) ([facility])- Primary Unspecified epilepsy without mention of intractable epilepsy Chronic obstructive pulmonary disease, unspecified COPD type (HCC) Primary hypertension Unspecified essential hypertension Gastroesophageal reflux disease without esophagitis Esophageal reflux Mixed hyperlipidemia Current mild episode of major depressive disorder, unspecified whether recurrent (HCC) Anxiety Anxiety state, unspecified Annual physical exam- Primary Routine general medical examination at a health care facility Seizure disorder ([facility]) ([facility]) Unspecified epilepsy without mention of intractable epilepsy Moderate asthma, unspecified whether complicated, unspecified whether persistent Chronic obstructive pulmonary disease, unspecified COPD type ([facility]) Primary hypertension Unspecified essential hypertension Fibromyalgia Unspecified [...] Chronic obstructive pulmonary disease, unspecified COPD type ([facility])- Primary Seizure disorder ([facility]) ([facility]) Unspecified epilepsy without mention of intractable epilepsy [...] Primary hypertension Unspecified essential hypertension Seizure disorder ([facility]/HCC) ([facility])- Primary Unspecified epilepsy without mention of intractable epilepsy Chronic obstructive pulmonary disease, unspecified COPD type (HCC) Primary hypertension Unspecified essential hypertension Gastroesophageal reflux disease without esophagitis Esophageal reflux Mixed hyperlipidemia Current mild episode of major depressive disorder, unspecified whether recurrent (HCC) Anxiety Anxiety state, unspecified Annual physical exam- Primary Routine general medical examination at a health care facility Seizure disorder ([facility]/HCC) ([facility]) Unspecified epilepsy without mention of intractable epilepsy [...] Chronic obstructive pulmonary disease, unspecified COPD type ([facility])- Primary Primary hypertension Unspecified essential hypertension Gastroesophageal reflux disease without esophagitis Esophageal reflux Chronic nausea Nausea alone Current mild episode of major depressive disorder, unspecified whether recurrent (HCC) Anxiety Anxiety state, unspecified Acute non-recurrent pansinusitis- Primary Bronchitis Bronchitis, not specified as acute or chronic Primary hypertension Unspecified essential hypertension Chronic obstructive pulmonary disease, unspecified COPD type ([facility])- Primary Seizure disorder ([facility]) ([facility]) Unspecified epilepsy without mention of intractable epilepsy [...] Generalized weakness Chronic obstructive pulmonary disease, unspecified ([facility])- Primary Primary hypertension Unspecified essential hypertension Hyperlipidemia, unspecified hyperlipidemia type Epilepsy, unspecified, not intractable, without status epilepticus (HCC) Vitamin D deficiency, unspecified Alcoholic cirrhosis of liver with ascites ([facility]) ([facility]) Chronic respiratory failure with hypoxia ([facility]) Hyponatremia Hyposmolality and/or hyponatremia Moderate asthma, unspecified [...] Fecal smearing Chronic respiratory failure with hypoxia ([facility]) Fibromyalgia Unspecified myalgia and myositis Glossitis- Primary [...] Unspecified essential hypertension documented in [facility]* Diagnosis Acute non-recurrent frontal sinusitis- Primary Primary hypertension Unspecified essential hypertension Seizure disorder ([facility]) (HCC)- Primary Unspecified epilepsy without mention of [...] unspecified COPD type (HCC)- Primary Seizure disorder ([facility]) (HCC) Unspecified epilepsy without mention of intractable [...] Primary hypertension Unspecified essential hypertension Seizure disorder ([facility]) ([facility])- Primary Unspecified epilepsy without mention of intractable epilepsy Chronic obstructive pulmonary disease, unspecified COPD type ([facility]) Primary hypertension Unspecified essential hypertension Gastroesophageal reflux disease without esophagitis Esophageal reflux Mixed hyperlipidemia Current mild episode of major depressive disorder, unspecified whether recurrent (HCC) Anxiety Anxiety state, unspecified Annual physical exam- Primary Routine general medical examination at a health care facility Seizure disorder ([facility]) ([facility]) Unspecified epilepsy without mention of intractable epilepsy Moderate asthma, unspecified whether complicated, unspecified whether persistent Chronic obstructive pulmonary disease, unspecified COPD type ([facility]) Primary hypertension Unspecified essential hypertension Fibromyalgia Unspecified [...] D deficiency, unspecified documented in this encounter [facility] Discharge instructions* Instructions* Bolivar Larsen MD - 04/27/2022 POST-OPERATIVE INSTRUCTIONS LAPAROSCOPIC/ROBOTIC SURGERY Thank you very much for allowing me to participate in your care, it is truly a privilege. Below please see discharge orders that will help you during your recovery. Please do not hesitate to call theoffice at [phone] for any questions. After hours, the same number will allow you to reach the on-call surgeon. ? Call the office to schedule your post-operative appointment with Dr. Larsen or PA/DERMATOLOGICAL SURGEON for 2 weeks if not already scheduled. [...] several days. Please call the office at [phone] for any questions and too make your post op appointment if needed. Thank you again for allowing me to participate in your care, and get well soon! Bolivar Larsen MD documented in this encounterSUMMA Work Phone: Hospital Discharge instructions* Attachments The following attachments cannot be sent through Care Everywhere. * Sinusitis Discharge Instructions, Adult ([place]) documented in this encounterS[facility] Discharge instructions Ambulatory Orders* Prior Authorization Referral - ONC/HEM Location: None Selected [facility] Work Phone: Hospital Discharge instructionsAdditional Instructions Use your dacia nebulizer as needed. Prednisone 40 mg a day start tomorrow once a day for 7 days. The antibiotic Zithromax 1 pill a day starting tomorrow. Follow-up with your doctor if not improving return to emergency ferment if you are feeling worse. Your labs and chest x-ray today looked good.[facility] Work Phone: Instructions* Attachments The following attachments cannot be sent through Care Everywhere. * Flu Vaccine ([place]) documented in this encounterSCleveland Clinic Children[facility] for RehabilitationReason for referral (narrative)No reason for referral information availableWPike Community Hospital Work Phone: Instructions Instruction Description Start Date Patient advised to follow-up with Primary Care Physician for BMI management. Advance Directives No Advanced Directives Records FoundDocuments on File Type Date Recorded Patient Director Pediatric Expl anation Advance Directives and Living Will Power of Service Delivery Consultant Latest Code Status on File Code Status Date Activated Date Inactivated Comments Full Code 09/19/2016 2:51 AM 09/23/2016 7:57 PM Documents on File Type Date Recorded Patient Director Pediatric Expl anation ACP-Advance Directive ACP-Power of Service Delivery Consultant Latest Code Status on File Code Status Date Activated Date Inactivated Comments Full Code 09/19/2016 2:51 AM 09/23/2016 7:57 PM Documents on File Type Date Recorded Patient Director Pediatric Expl anation ACP-Advance Directive ACP-Power of Service Delivery Consultant Advance Directive Response Recorded Date/ Time Living Will No May 21, 2021 3:17pm Power of Service Delivery Consultant No May 21 3:17pm Latest Code Status [...] No December 27, 2022 11:29am Power of Service Delivery Consultant No December 27 11:29am Advance Directive Response Recorded Date/ Time Do you have a Healthcare Power of Service Delivery Consultant? Yes March 20, 2025 5:56pm Name of Medical Power of Service Delivery Consultant shonda long March 20, 2025 5:56pm Advance Directive Response Recorded Date/ Time Do you have a Healthcare Power of Service Delivery Consultant? Yes March 21, 2025 12:32am Name of Medical Power of Service Delivery Consultant shonda long March 21, 2025 12:32am Advance Directive Response Recorded Date/ Time Do you have a Healthcare Pow er of Service Delivery Consultant? No July 21, 2025 1:00pm Do you have a Healthcare Pow er of Service Delivery Consultant? Yes March 21, 2025 12:32am Name of Medical Power of Service Delivery Consultant shonda long March 21, 2025 12:32am Assessments [...] LUNG SCREENING Geovani Gay MD [address] [place] [address] Status Reason Specialty Diagnoses / Procedures Referre d By Contact Referred To Contact Open Radiology Diagnoses Chronic nausea RUQ abdominal pain Procedures US ABDOMEN COMPLETE Geovani Gay MD [address] [place] [address] Specialty Diagnoses / Procedures Referred By Contac t Referred To Contact Radiology Diagnoses Lung nodule Procedures Low Dose Chest CT -Abnormal Lung Screen Follow up Linda Gonzales, ADAPTIVE PHYSICAL EDUCATOR - RIDING TEACHER [address] [place] [address] Referral ID Status Reason Start Date Expiration Date Visits Re quested Visits Authorized [id number] Closed 03/30/2022 05/28/2022 1 1 Specialty Diagnoses / Procedures Referred By Contac t Referred To Contact Radiology Diagnoses Multiple lung nodules on CT Procedures CT lung screening follow up low dose Linda Gonzales, ADAPTIVE PHYSICAL EDUCATOR - RIDING TEACHER [address] [place] [address] Referral ID Status Reason Start Date Expiration Date Visits Re quested Visits Authorized [id number] Closed 05/23/2023 07/22/2023 1 1 Specialty Diagnoses / Procedures Referred By Contac t Referred To Contact Geovani Gay MD [address] [place] [address] Referral ID Status Reason Start Date Expiration Date Visits Re quested Visits Authorized [id number] Closed 1 1 Specialty Diagnoses / Procedures Referred By Contac t Referred To Contact Radiology Diagnoses Solitary pulmonary nodule Procedures CT lung screening low dose Linda Gonzales, ADAPTIVE PHYSICAL EDUCATOR - RIDING TEACHER [address] [place] [address] Referral ID Status Reason Start Date Expiration Date Visits Re quested Visits Authorized [id number] Closed 09/20/2022 03/19/2023 1 1 Chief Complaint [...] I am unable to verify coverage on Whi [id number] COVID vaccinesTDAP/TD-declines, doesn't think insurance will pay for it Blood Work Specialty Diagnoses / Procedures Referred By Contac t Referred To Contact Radiology Diagnoses Multiple lung nodules on CT Procedures CT lung screening follow up low dose Linda Gonzales S, ADAPTIVE PHYSICAL EDUCATOR - RIDING TEACHER [address] [place] [address] Referral ID Status Reason Start Date Expiration Date Visits Re quested Visits Authorized [id number] Closed 05/23/2023 07/22/2023 1 1 Reason Comments [...] Comments Transitional [facility] Management Outreach Hospital Follow-up [facility] 03/23 -03/26/24 Reason Onset Date Comments Critical lab results 03/29/2024 Reason Onset Date Comments Medication List 04/18/2024 Reason Comments Transitional Care Management Outreach Wa s in a half-way for a litter over a month. Blood [...] Maintenance Lung ca screen- refu seFlu vaccine- [id number] covid vaccine- not done Specialty Diagnoses / Procedures Referred By Regina jarrett Referred To Contact Radiology Diagnoses Solitary pulmonary nodule Procedures CT lung screening low dose Linda Gonzales S, ADAPTIVE PHYSICAL EDUCATOR - RIDING TEACHER [address] [place] [address] Referral ID Status Reason Start Date Expiration Date Visits Re quested Visits Authorized [id number] Closed 09/20/2022 03/19/2023 1 1 Reason Comments [...] or prosecute any alcohol or drug abuse patient.[facility] Goals (unrecognized section and content) Goals may [...] Attending Provider Active Start: March 20, 2025 Stock Lifter Relationship Specialty Start Date End Date Geovani Gay MD [address] [place] [address], [place] [address] PCP - General Family Medicine 12/17/19 Stock Lifter Relationship Specialty Start Date End [place] [address] PCP - General Family Medicine 12/17/19 Stock Lifter Relationship Specialty Start Date End Date Geovani Gay MD [address] [place] [address], [place] [address] PCP - General Family Medicine 12/17/19 Stock Lifter Relationship Specialty Start Date End Date Geovani Gay MD [address] [place] [address], [place] [address] PCP - General Family Medicine 12/17/19 Team Status: Inactive Member Role Status Dates Dr. Geovani Gay MD Primary Care Provider, Referri ng Provider Active Elina Thorpe DERMATOLOGICAL SURGEON, DERMATOLOGICAL SURGEON-C Attending Provider Active Team Status: Active Member Role Status Dates Dr. Geovani Gay MD Primary Care Provider, Referri ng Provider Active Dr. Cal Bahena DO Attending Provider, Other Prov ider Active Team Status: Inactive Member Role Status Dates Dr. Geovani Gay MD Primary Care Provider, Referri ng Provider Active Dr. Cal Bahena DO Attending Provider Active Stock Lifter Relationship Specialty Start Date End Date Geovani Gay MD [address] [place], [place] [address], [place] [address] PCP - General 12/17/19 Stock Lifter Relationship Specialty Start Date End Date Geovani Gay MD [address] [place] [address] PCP - General 12/17/19 Team Status: Inactive Member Role Status Dates Dr. Geovani Gay MD Primary Care Provider Active Elina Thorpe DERMATOLOGICAL SURGEON, DERMATOLOGICAL SURGEON-C Attending Provider, Chilango dang Provider Active Stock Lifter Relationship Specialty Start Date End [place] [address] PCP - General 12/17/19 Stock Lifter Relationship Specialty Start Date End [place] [address] PCP - General 12/17/19 Stock Lifter Relationship Specialty Start Date End [place] [address] PCP - General 12/17/19 Stock Lifter Relationship Specialty Start Date End [place] [address] PCP - General 12/17/19 Stock Lifter Relationship Specialty Start Date End [place] [address] PCP - General 12/17/19 Stock Lifter Relationship Specialty Start Date End [place] [address] PCP - General 12/17/19 Stock Lifter Relationship Specialty Start Date End Date Geovani Gay MD [address] [facility] [place] [address] PCP - General 12/17/19 Stock Lifter Relationship Specialty Start Date End Date Geovani Gay MD [address] [facility] [place] [address] PCP - General 12/17/19 Stock Lifter Relationship Specialty Start Date End Date Geovani Gay MD [address] [facility] [place] [address] PCP - General 12/17/19 Stock Lifter Relationship Specialty Start Date End Date Geovani Gay MD [address] [facility] [place] [address] PCP - General 12/17/19 Stock Lifter Relationship Specialty Start Date End Date Geovani Gay MD [address] [facility] [place] [address] PCP - General 12/17/19 Stock Lifter Relationship Specialty Start Date End Date Geovani Gay MD [address] [facility] [place] [address] PCP - General 12/17/19 Stock Lifter Relationship Specialty Start Date End Date Geovani Gay MD [address] [facility] [place] [address] PCP - General 12/17/19 Stock Lifter Relationship Specialty Start Date End Date Geovani Gay MD [address] [facility] [place] [address] PCP - General 12/17/19 Stock Lifter Relationship Specialty Start Date End Date Geovani Gay MD [address] [facility] [place] [address] PCP - General 12/17/19 Stock Lifter Relationship Specialty Start Date End Date Geovani Gay MD [address] [place] [address] PCP - General 12/17/19 Stock Lifter Relationship Specialty Start Date End Date Geovani Gay MD [address] [facility] [place] [address] PCP - General 12/17/19 Stock Lifter Relationship Specialty Start Date End Date Geovani Gay MD [address] [facility] [address] PCP - General 12/17/19 Stock Lifter Relationship Specialty Start Date End Date Geovani Gay MD [address] [facility] [address] PCP - General 12/17/19 Stock Lifter Relationship Specialty Start Date End Date Geovani Gay MD [address] [facility] [place] [address] PCP - General 12/17/19 Stock Lifter Relationship Specialty Start Date End Date Geovani Gay MD [address] [facility] [place] [address] PCP - General 12/17/19 Stock Lifter Relationship Specialty Start Date End Date Geovani Gay MD [facility] [place] [address] PCP - General 12/17/19 Stock Lifter Relationship Specialty Start Date End Date Geovani Gay MD [address] [facility] [place] [address] PCP - General 12/17/19 Stock Lifter Relationship Specialty Start Date End Date Geovani Gay MD [address] [facility] [address] PCP - General 12/17/19 Stock Lifter Relationship Specialty Start Date End Date Geovani Gay MD [address] [facility] [address] PCP - General 12/17/19 Stock Lifter Relationship Specialty Start Date End Date Geovani Gay MD [address] [facility] [place] [address] PCP - General 12/17/19 Stock Lifter Relationship Specialty Start Date End Date Geovani Gay MD [address] [facility] [place] [address] PCP - General 12/17/19 Stock Lifter Relationship Specialty Start Date End Date Geovani Gay MD [address] [facility] [place] [address] PCP - General 12/17/19 Stock Lifter Relationship Specialty Start Date End Date Geov[place] [address] PCP - General 12/17/19 Stock Lifter Relationship Specialty Start Date End Date Geov[place] [address] PCP - General 12/17/19 Stock Lifter Relationship Specialty Start Date End Date Geovani Gay MD [facility] [place] [address] PCP - General 12/17/19 Stock Lifter Relationship Specialty Start Date End Date Geovani Gay MD [facility] [address] PCP - General 12/17/19 Stock Lifter Relationship Specialty Start Date End Date Geovani Gay [place] [address] PCP - General 12/17/19 Stock Lifter Relationship Specialty Start Date End Date Geovani Gay MD [facility] [address] PCP - General 12/17/19 Stock Lifter Relationship Specialty Start Date End Date Geov[place] [address] PCP - General 12/17/19 Stock Lifter Relationship Specialty Start Date End Date Geovani Gay [place] [address] PCP - General 12/17/19 Stock Lifter Relationship Specialty Start Date End Date Geovani Gay MD [address] [facility] [place] [address] PCP - General 12/17/19 Stock Lifter Relationship Specialty Start Date End Date Geovani Gay MD [address] [facility] [place] [address] PCP - General 12/17/19 Stock Lifter Relationship Specialty Start Date End Date Geovani Gay MD [address] [facility] [place] [address] PCP - General 12/17/19 Stock Lifter Relationship Specialty Start Date End Date Geovani Gay MD [address] [facility] [place] [address] PCP - General 12/17/19 Stock Lifter Relationship Specialty Start Date End Date Geovani Gay MD [address] [facility] [place] [address] PCP - General 12/17/19 Stock Lifter Relationship Specialty Start Date End Date Geovani Gay MD [address] [facility] [place] [address] PCP - General 12/17/19 Stock Lifter Relationship Specialty Start Date End Date Geovani Gay MD [address] [facility] [place] [address] PCP - General 12/17/19 Stock Lifter Relationship Specialty Start Date End Date Geovani Gay MD [address] [facility] [place] [address] PCP - General 12/17/19 Stock Lifter Relationship Specialty Start Date End Date Geovani Gay MD [address] [facility] [address] PCP - General 12/17/19 Stock Lifter Relationship Specialty Start Date End Date Geovani Gay MD [facility] [place] [address] PCP - General 12/17/19 Stock Lifter Relationship Specialty Start Date End Date Geovani Gay MD [address] [place] [address] PCP - General 12/17/19 Stock Lifter Relationship Specialty Start Date End Date Geovani Gay MD [address] [place] [address] PCP - General 12/17/19 Stock Lifter Relationship Specialty Start Date End Date Geovani Gay MD [address] [place] [address] PCP - General 12/17/19 Stock Lifter Relationship Specialty Start Date End Date Geovani Gay MD [address] [facility] [address] PCP - General 12/17/19 Stock Lifter Relationship Specialty Start Date End Date Geovani Gay MD [address] [facility] [place] [address] PCP - General 12/17/19 Stock Lifter Relationship Specialty Start Date End Date Geovani Gay MD [address] [facility] [place] [address] PCP - General 12/17/19 Team Status: Active [...] May 20, 2025 End: May 20, 2025 Stock Lifter Relationship Specialty Start Date End Date Geovani Gay MD [address] [place] [address] PCP - General 12/17/19 Stock Lifter Relationship Specialty Start Date End Date Geovani Gay MD [address] [place] [address] PCP - General 12/17/19 Team Status: Inactive [...] 2025 End: May 20, 2025 Dr. Geovani Gya MD Referring Provider Active Start: May 20, [...] 100 mL IVPB (premix) 2,000 mg, IntraVENous, SAUSAGE COOKER TO O.R., 1 dose, On Mon04/27/22 at [...] section and content) DATE CREATED AUTHOR 07/22/2022 [facility] [employer] [facility] DATE CREATED AUTHOR AUTHOR'S ORGANIZ ATION 03/28/2024 [facility] DATE CREATED AUTHOR AUTHOR'S ORGANIZ ATION 07/30/2025 [facility] DATE CREATED AUTHOR AUTHOR'S ORGANIZ ATION 08/29/2025 [facility] FOR RECORDS PERTAINING TO PATIENTS WHO ARE [...] BE BASED ON THE PRIMARY CLINICAL RECORDS. [employer] [facility]. provides no warranty or guarantee of the accuracy or completeness of information in this document.
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
[2025-10-14 20:48] LABS: Hematocrit 37.2 % (37-47); Hemoglobin 12.2 g/dL (12.0-15.0); Immature Granulocytes Count 0.050 X10^3/uL (0.0-0.0); Mean Corp Hgb Conc 32.8 g/dL (32-36); Mean Corpuscular Volume 101.6 fL (81-99); Mean Platelet Vol. 10.7 fl (6.2-12.0); NRBC Flagged by Analyzer 0 % (0-5); POSITIVE MORPHOLOGY YES; Platelet Count 258 K/mm3 (150-450); RBC Distribution Width CV 13.4 % (11.6-14.6); RBC Distribution Width SD 50.0 fl (35.1-43.9); Red Blood Count 3.66 M/mm3 (4.2-5.4); White Blood Count 8.8 K/mm3 (4.4-11.0)
--- NOTE | 2025-10-14 20:48 | CM.ED ---
Social work Advance directives consult received in error. Patient's HCPOAs are as follows: daughter Shonda Alas (primary), son Prem Ha (secondary), and Alec Ha (tertiary). Margaret Maradiaga, PLAYERS ASSISTANT, SELLING MANAGER
[2025-10-14 20:58] LABS: Anion Gap 25 (7-18); BUN 31 mg/dL (4-19); BUN/Creat Ratio 13.2 RATIO (10-20); Calcium,Total 8.6 mg/dL (7.6-11.0); Carbon Dioxide 14.9 mmol/L (20.0-29.0); Chloride 89 mmol/L (96-106); Estimated Creatinine Clearance 21.54 ml/min (50-250); Glucose 95 mg/dL (70-99); Potassium 4.4 mmol/L (3.5-5.1)
[2025-10-14 21:10] LABS: Base Excess -10 mmol/L (-2 to +2); FI02 100.0; PO2 121 mmHG (75-100); SITE R Brach; SO2 98 % (94-98)
--- NOTE | 2025-10-14 21:20 | ED.RN ---
The patient oxygen saturation is decreasing despite being 100% Fi02 on BiPAP. Dr. Moraes aware of patient's increasing confusion and decreasing oxygen saturation.
[2025-10-14 21:21] LABS: Pro- Brain NATRIURETIC PEPTIDE 3748 pg/mL (<=900); Troponin T High Sensitivity 43 ng/L (<=14)
[2025-10-14 21:43] LABS: D-Dimer Quantitative (DVT/PE) 3.30 FEU/ug/m (0.27-0.49)
--- NOTE | 2025-10-14 21:48 | ED.RN ---
Patient is very confused, trying to pull bipap mask off and asking to smoke. This RN calls patients daughter Shonda who is POA, updates her on patients status and inability to keep her oxygen up. DNR CCA on file, daughter confirms this is still patients wishes, daughter also states patient would not want to be intubated if it came down to that. Dr Moraes made aware.
[2025-10-14 21:55] LABS: Differential Indicated SCAN CRITERIA MET
[2025-10-14 21:57] LABS: Differential Comment SCANNED
[2025-10-14] MEDS: 0.9% Normal Saline (1000mL) 1,000 ML 999 ML IV (22:00)
--- NOTE | 2025-10-14 22:00 | ED.RN ---
This RN has made both Dr. Moraes and the hospitalist aware that the patient oxygenation is continuing to drop despite the patient being on 100% Fi02 on BiPAP. The patient is a DNRCC-A, no intubation. The patient and family is aware of the patient's condition. The patient continues to unplug her Bi-PAP and pull at equipment. The patient has been instructed to not pull at equipment. The hospitalist at bedside to see decreasing blood pressure. Dr. Moraes aware.
[2025-10-14] MEDS: Albuterol 2.5 MG/3 ML VIAL.NEB. INHALATION ×2 (22:11)
[2025-10-14] MEDS: Piperacil/Tazobactam 4.5 GM in 0.9% Normal Saline (100mL MB+) 100 ML IV (22:15)
--- NOTE | 2025-10-14 22:37 | CPS ---
[2211] x2 Albuterol given to pt. in ER
[2025-10-14 22:41] LABS: Ammonia 37.5 umol/L (11-51)
--- NOTE | 2025-10-14 23:02 | ED.RN ---
Both Dr. Moraes and Hospitalist aware of the patient's decreasing oxygen saturation.
--- OUTSIDE RECORDS SUMMARY | 2025-10-14 23:11 | XMS RPT_ITS | CCD ---
Author Organization [facility] CliniSymi Care Team Providers Care Echo Technologist Name Role Phone Arie Salgado DO Unavailable Jeffrey Correa Primary Care Provider Geovani Gay Primary Care Provider [phone] Pcp, No Primary Care Provider UnavailGeovani Alegre MD Primary Care Provider Dr. Geovani Gay Primary Care Provider Dr. Mo Sanchez Attending Provider Dr. Mo Sanchez Referring Provider Dr. Mo Sanchez Other Provider Ephraim EXHAUST WORKER, EXHAUST WORKER-C Vonda Attending Provider Ephraim EXHAUST WORKER, EXHAUST WORKER-C Vonda Referring Provider [phone] Divine HORAN PA-Jeannie Amin Attending Provider Dr. Manuel Solano Referring Provider Dr. Jez Smalls Attending Provider Dr. Geovani Gay Referring Provider Dr. Manuel Solano Attending Provider [phone] Geovani Gay MD Primary Care Provider Geovani [...] Provider Dr. Geovani Gay Referring Provider Ila EXHAUST WORKER, JEAN CARLOSC Elina Sales Attending Provider Dr. Cal Bahena Attending Provider [phone] Dr. Cal Bahena Other Provider Geovani Gay MD Primary Care Provider Geovani Gay MD Primary Care Provider PHYSICIAN, NONE Attending Unavailable PHYSICIAN, NONE Primary Care Unavailable Victor Hugo KENT, Dr. Olivo Primary Care Provider [phone] Dr. Bradley Pichardo DO Emergency Provider Misael [...] Physician Cale KENT, Dr. Lloyd Referring Provider [phone] Haris KENT, Dr. Hernandez Emergency Department Physici [...] sources) Adhesive Tape Substance Allergy 01-03-20 23 [facility] Adrenergic Agonists (2 sources) Pseudoephedrine Drug Allergy 04-05-20 17 [facility] Aminoketones (2 sources) buPROPion Drug Allergy 09-18-20 16 [facility] Anti-Epileptic Agents (2 sources) gabapentin Drug Allergy 12-04-19 [facility] Cephalosporins (antibiotic) (2 sources) Cefuroxime Drug Allergy 09-18-20 16 Hives [facility] cyclobenzaprine (2 sources) cyclobenzaprine Drug Allergy 09-18-20 16 [facility] Doxepin (2 sources) Doxepin Drug Allergy 09-18-20 16 [facility] Nicotine (2 sources) Nicotine Drug Allergy 12-04-19 [facility] Opioid Agonists (2 sources) Codeine Drug Allergy 09-18-20 16 Nausea And Vomiting [facility] Psyllium (2 sources) Psyllium Drug Allergy 04-10-20 [facility] Serotonin Reuptake Inhibitors (SSRIs) (2 sources) FLUoxetine Drug Allergy 12-04-19 [facility] (1 source) buPROPion Drug Allergy 02-07-20 14 seizures [facility] Work Phone: (1 source) cefuroxime Drug Allergy 02-07-20 14 rash [facility] Work Phone: (1 source) codeine Drug Allergy 02-07-20 14 nausea/vomitin g, stomach pain [facility] Work Phone: (1 source) cyclobenzaprine Drug Allergy 02-07-20 14 seizures [facility] Work Phone: (1 source) FLUoxetine Drug Allergy 02-07-20 14 high anxiety [facility] Work Phone: (20 sources) gabapentin Drug Allergy 02-07-20 14 poor concentration, drowsiness, INCREASED ANXIETY, CONFUSION [facility] Work Phone: Comment on above: drowsiness (1 source) pseudoephedrine Drug Allergy 04-05-20 17 seizures [facility] Work Phone: (1 source) risperiDONE Drug Allergy 02-07-20 14 seizures [facility] Work Phone: (1 source) TENS UNIT PATCHES drug allergy 02-07-20 14 rash [facility] Work Phone: (20 sources) buPROPion Drug Allergy 09-18-20 16 SEIZURES [place] Comment on above: SEIZURES (20 sources) Cefuroxime Drug Allergy 09-18-20 16 H[place] (20 sources) Codeine Drug Allergy 09-18-20 16 Other (See Comments), Nausea And Vomiting [place] (20 sources) cyclobenzaprine Drug Allergy 09-18-20 16 [place] Comment on above: SEIZURES (20 sources) Doxepin Drug Allergy 09-18-20 16 [place] (20 sources) Risperidone And Related Propensity to adverse reactions to drug 09-18-20 16 [place] (20 sources) FLUoxetine Drug Allergy 12-04-19 20 INCREASED ANXIETY [facility] Work Phone: (20 sources) Nicotine Drug Allergy 12-04-19 20 Itching [facility] Work Phone: (20 sources) Pseudoephedrine Drug Allergy 04-05-20 17 [place] (20 sources) Psyllium Drug Allergy 04-10-20 20 [place] (3 sources) Other Propensity to adverse reactions 12-10-19 20 Rash [place] (9 sources) risperiDONE Drug Allergy 11-03-19 SEIZURES [facility] Comment on above: SEIZURES (1 source) TENS unit patch Allergy to substance 11-03-19 [facility] Work Phone: (9 sources) Adhesive agent; Translations: [adhesive] Allergy to substance 01-03-20 [facility] Comment on above: TENS UNIT PATCH (20 sources) Adhesive Tape Drug Allergy 01-03-20 [facility] (20 sources) Wound Dressing Adhesive Drug Allergy 01-03-20 [facility] (6 sources) Risperidone And Paliperidone Drug Intolerance 09-18-20 [facility] (1 source) buPROPion Drug Allergy 07-28-20 [facility] Rep[facility] (1 source) Cefuroxime Drug Allergy 07-28-20 [facility] (1 source) Codeine Drug Allergy 07-28-20 [facility] (1 source) cyclobenzaprine Drug Allergy 07-28-20 [facility] (1 source) FLUoxetine Drug Allergy 07-28-20 [facility] (1 source) gabapentin Drug Allergy 07-28-20 [facility] (1 source) Nicotine Drug Allergy 07-28-20 [facility] (1 source) risperiDONE Drug Allergy 07-28-20 [facility] Repository NEGATED: Highlighted row has been ruled out! (6 sources) Other Propensity to adverse reactions 12-10-19 [facility] Medications Current Medications Medication Drug Class(es) Dates Sig (Normalized) Sig (Original) [id number] 200 actuat albuterol 0.09 mg/actuat metered dose [...] four times daily as needed ALBUTEROL SULFATE [id number] Chantelle Roche Albuterol Sulfat e (PROVENTIL HFA [...] MG TAB S three times daily ALPRAZOLAM [id number] Chantelle Roche take 1 tablet by maria [...] MG TABS 1 tablet daily AMLODIPINE BESYLATE 95506241851 Maxine Moya LPN amoxicillin 875 mg / [...] therapy Start: 04-27-2020 take 1 tablet by amria a th once daily atorvastatin (LIPITOR) 80 MG tablet Take 1 tablet by mouth daily 90 tablet 1 04/27/2020 Active Start: 04-05-2017 LIPITOR 80 MG TABS 1 tablet daily ATORVASTATIN CALCIUM 83603996664 Maxine Stanleyro GRANT SPECIALIST azithromycin 250 mg oral tablet (14 sources) [...] Start: 03-19-2020 take 2 puff(s) by mo [facility] twice daily budesonide-formoterol (SYMBICORT) 160-4.5 MCG/ACT [...] Active Start: 11-12-2021 take 2 tablets by [facility] twice daily carBAMazepine (TEGRETOL XR) 200 MG extended release tablet Indications: Epilepsy, unspecified, not intractable, without status epilepticus (HCC) TAKE 2 TABLETS BY MOUTH TWICE A DAY 120 tablet 5 11/12/2021 Active Start: 06-21-2021 take 2 tablets by [facility] twice daily carBAMazepine (TEGRETOL XR) 200 MG extended release tablet Indications: Epilepsy, unspecified, not intractable, without status epilepticus (HCC) TAKE 2 TABLETS BY MOUTH TWICE A DAY 120 tablet 5 06/21/2021 Active Start: 06-17-2021 take 400 mg by mouth twice daily Carbamazepine Active 400 MG PO TWICE A DAY June 17, 2021 12:53pm Start: 12-23-2020 take 2 tablets by [facility] twice daily carBAMazepine (TEGRETOL XR) 200 MG [...] seizures Start: 06-30-2020 take 2 tablets by [facility] twice daily carBAMazepine (TEGRETOL XR) 200 MG extended release tablet Indications: Epilepsy, unspecified, not intractable, without status epilepticus (HCC) TAKE 2 TABLETS BY MOUTH TWICE A DAY 120 tablet 5 06/30/2020 Active Start: 02-06-2014 TEGRETOL-XR 20 0 MG [id number] 2 tablets twice daily CARBAMAZEPINE [id number] Maxine Stanleyrebekah GUSMANN take 1 tablet by [facility] daily carBAMazepine (TEGRETOL) 200 MG tablet [...] Start: 09-11-2024 take 1 capsule by mo [facility] once daily Duloxetine 60 mg capsule,delayed release(DR/EC) Active 60 mg PO DAILY March 20, 2025 12:00am Start: 05-15-2023 End: 07-21-2025 take 1 capsule by mouth at bedtime Duloxetine 30 mg capsule,delayed release(DR/EC) Discontinued 30 mg PO AT BEDTIME March 23, 2024 12:00am July 21, 2025 12:49pm Start: 05-15-2023 take 1 capsule by [facility] twice daily DULoxetine (Cymbalta) [address] capsule Take 30 mg by mouth 2 times daily. 05/15/2023 Active ergocalciferol 1.25 mg oral capsule (20 sources) Provitamin D2 Compound Start: 01-13-2025 End: 06-26-2025 Ergocalciferol (Vitamin D2) 1,250 mcg (50,000 unit) capsule Active 1250 ug PO EVERY WEEK March 20, 2025 12:00am Complies with drug therapy Start: 06-17-2024 take 1 capsule by [facility] every week ergocalciferol (Vitamin D2) 1.25 MG (12482 UT) capsule Indications: Vitamin D deficiency, unspecified Take 1 capsule (1.25 mg) by mouth 1 (one) time per week. 12 capsule 1 06/17/2024 Active Start: 02-14-2024 End: 06-13-2024 take 1 capsule by mouth every week ergocalciferol (Vitamin D2) 1.25 MG (72051 UT) capsule Indications: Vitamin D deficiency, unspecified Take 1 capsule (1.25 mg) by mouth 1 (one) time per week. 4 capsule 1 06/13/2024 Active Start: 09-30-2022 End: 12-18-2023 take 1 capsule by mouth every week ergocalciferol (Vitamin D2) 1.25 MG (05175 UT) capsule Indications: Vitamin D deficiency, unspecified TAKE 1 CAPSULE BY MOUTH ONE TIME PER WEEK 4 capsule 2 12/14/2022 Active Start: 06-22-2022 take 1 capsule by mo ut[facility] every week vitamin D (ERGOCALCIFEROL) 1.25 MG (73861 UT) CAPS capsule Indications: Vitamin D deficiency, unspecified TAKE 1 CAPSULE BY MOUTH ONE TIME PER WEEK 4 capsule 2 06/22/2022 Active Start: 03-09-2022 take 1 capsule by mo uth every week vitamin D (ERGOCALCIFEROL) 1.25 MG (70491 UT) CAPS capsule Indications: Vitamin D deficiency, unspecified TAKE 1 CAPSULE BY MOUTH ONE TIME PER WEEK 4 capsule 2 03/09/2022 Active Start: 06-09-2021 take 1 capsule by mo uth every week vitamin D (ERGOCALCIFEROL) 1.25 MG (08846 UT) CAPS capsule Indications: Vitamin D deficiency, unspecified TAKE 1 CAPSULE BY MOUTH ONE TIME PER WEEK 4 capsule 2 06/09/2021 Active Start: 07-30-2020 End: 03-20-2025 Ergocalciferol (Vitamin D2) 50,000 UNIT capsule Discontinued 09935 U PO MO July 30, 2020 12:00am March 20, 2025 6:01pm vitamin Take every monday Start: 04-27-2020 take 1 capsule by mo uth every week vitamin D (ERGOCALCIFEROL) 1.25 MG (71938 UT) CAPS capsule Indications: Vitamin D deficiency, [...] TABS 1 tablet every 12 hours LEVETIRACETAM [id number] Maxine Moya GRANT SPECIALIST Start: 09-23-2016 take 1 tablet by maria [...] M G TABS 1 tablet daily LISINOPRIL 14159465340 Maxine Moya LPN take 1 tablet by [...] (wheezing, cough,). 1 each 01/09/2025 Active nystatin 535038 unt/ml oral suspension (20 sources) Polyene Antifungal Start: 07-21-2025 take 704896 [IU] by mouth four times daily Nystatin 100,000 unit/mL suspension Active 166049 U PO 4 TIMES DAILY July 21, 2025 12:00am Complies with drug therapy Start: 03-25-2025 End: 07-07-2025 take 918419 [IU] by mouth four times daily Nystatin 100,000 unit/mL Suspension Discontinued 038388 U PO 4 TIMES DAILY 280 14 0 March 25, 2025 12:00am July 07, 2025 4:00pm Start: 01-28-2025 take 5 mL by mouth f our times daily nystatin (Mycostatin) 597382 UNIT/ML suspension Take 5 mL (500,000 Units) [...] 1:04pm Start: 08-27-2020 End: 05-29-2024 nystatin (Mycostatin) 659865 UNIT/GM powder Apply 3 times daily. 08/27/2020 05/29/2024 Discontinued (Med list cleanup) Start: 08-27-2020 nystatin (MYCO STATIN) 342036 UNIT/GM powder Apply 3 times daily. 100 g 0 08/27/2020 Active [place]-3 Fatty Acids (OMEGA 3 PO) (3 sources) take 1 tablet by mouth three times daily [place]-3 Fatty Acids (OMEGA 3 PO) Take 1 [...] CAPSULE DELAYED RELEASE 1 capsule daily OMEPRAZOLE 54342163738 Chantelle Roche take 1 capsule by mo [...] 30, 2020 12:00am March 20, 2025 6:07pm [facility] microencapsulated potassium chloride 20 meq extended release [...] 2.5 ug by inhalation once daily Tiotropium [place] (Spiriva Respimat) 2.5 mcg/actuation mist Discontinued 2 NMA INHALATION daily 10 28October 04, 2021 2:58pm March 20, 2025 6:04pm administer at approximately the same time(s) each day Start: 09-30-2021 End: 10-04-2021 take 1 puff(s) by inhalation once daily Tiotropium [place] (Spiriva Respimat) 2.5 mcg/actuation mist Active 2 [...] Agonist Start: 05-21-2021 End: 06-17-2021 Hydrocodone-Acetamin ophen (Luna) 5-325 mg Tablet Discontinued 1 {tbl} PO [...] TABS 1 tablet 3-4 times daily HYDROCODONE-ACETAMINOPHEN [id number] Nat Sepulveda 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 [employer] COMM[employer]ICATIONS take 1 tablet by maria a th [...] PO DAILY April 18, 2024 12:00am cholecalciferol 13658 unt oral tablet (1 source) Vitamin D Start: 04-05-2017 VITAMIN D3 59867 UNIT TABS 1 tablet weekly CHOLECALCIFEROL 68017316230 Maxine Moya LPN docusate sodium 50 mg / sennosides, fci 8.6 mg oral tablet (16 sources) Start: [...] AEPB inhale 1 puff twice daily FLUTICASONE-SALMETEROL 84391178959 Chantelle Roche take 1 puff(s) by in [...] NEBULIZER 4 times daily as needed NEBULIZERS 69820732715 Maxine Moya LPN pantoprazole 40 mg delayed [...] tablet twice daily as needed RAMIPRIL CAPS 98620270655 Nat Sepulveda ADJUSTO 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 HR COMMUNICATIONS 72 hr scopolamine 0.0139 mg/hr transdermal system [...] 04-11-2017 Chronic Other aftercare (2 sources) Other [facility] (current) drug therapy; Translations: [Other [employer] (current) drug therapy] Onset: 2 Episodic Other [...] Visit Repor ton 08-19-2025 Gastroenterology Visit Report [facility] Gastroenterology [address] [place] [address] OFFICE VISIT Date of Service: 08/19/25 MR#: [id number] Acct: [id number] Name: AISHA HA Rep #: [id number] : 1965 Provider: Cal Bahena DO Age/Sex: 60/F Location: [facility] Status: Signed Intake Vital Signs 03/25/25 12:15 [...] mg 25 mg PO QDAY 07/07/25 08/19/25 [employer] tablet,extended release 24 hr omeprazole 40 mg capsule,delayed 40 mg PO BID 07/07/25 08/19/25 His tory release thiamine HCl (vitamin B1) 50 mg 50 mg PO QDAY 07/07/25 08/19/25 [employer] tablet calcium 600 mg (as 1 tab [...] of esophagogastrod (more content not included)... Normal [facility] 36on 07-28-2025 36 Rx sent. Recommend checking her level at her upcoming appointment on 09/10/2025. Normal [facility] 36 Prescription Request : CARBAMAZEPINE ER 200 MG TABLET Last medication check: 03/04/25 Last physical exam: 06/13/24 Next scheduled appointment: 09/10/25 Last date of refill on this medication 12/30/24 ( qty 360 refill 1) [facility] 12 Lead EKGon 07-21-2025 12 Lead EKG [facility] Cardiovascular Services [address] [place] [address] 12 Lead EKG 07/21/25 1352 MR#: [id number] Acct: [id number] Name: AISHA HA Rep #: [id number] : 1965 60 From: Jez Smalls MD [...] Normal ECG Confirmed by MILLER KENT, JEZ ([id number]), assistant production editor HELADIO MARIN ([id number]) on 07/22/2025 8:07:29 AM Referred By: Confirmed By: JEZ SMALLS MD 07/22/25 0807 Date Jez Smalls MD CC: Dr. Geovani Gay MD; Dr. David Carballo MD Signed Normal [facility] Absolute lymphocyte countOrd ered By: David Carballo on 07-21-2025 Lymphocytes Auto (Unsp spec) [#/Vol] 2.71 10*3/uL 0.83-4.51 [facility] Absolute neutrophil countOrd ered By: David Carballo on 07-21-2025 Neutrophils (Bld) [#/Vol] 3.5 10*3/uL 2.0-7.7 [facility] Anion gap in Serum or Plasma Ordered By: David Carballo on 07-21-2025 Anion gap [Moles/Vol] 13 mmol/L 03-[address] [facility] Automated lymphocyte count a s percentage of total leukocytesOrdered By: David Carballo on 07-21-2025 Lymphocytes/100 WBC Auto (Unsp spec) 39.7 % [facility] BUN/creatinine ratioOrdered By: David Carballo on 07-21-2025 Urea nitrogen/Creatinine [Mass ratio] 11.7 mg/mg 08-11 [facility] Basic Metabolic Profile (BMP )on 07-21-2025 BUN/CRE 11.7 RATIO Normal 08-11 [facility] Comment on above: Performed By: #### L 100.0100, L500.2500 ####[facility] [address] [place], [address] Calcium [Mass/Vol] 8.9 mg/dL Normal 7.6-11.0 [facility] Comment on above: Performed By: #### L 100.0100, L500.2500 ####[facility] [address] [place], [address] Chloride [Moles/Vol] 96 mmol/L Low 98-108 [facility] Comment on above: Performed By: #### L 100.0100, L500.2500 ####[facility] [address] [place], [address] CO2 [Moles/Vol] 25.7 mmol/L Normal 21.0-32.0 [facility] Comment on above: Performed By: #### L 100.0100, L500.2500 ####[facility] [address] [place], [address] Creatinine [Mass/Vol] 0.67 mg/dL Low 0.70-1.[address] [facility] Comment on above: Performed By: #### L 100.0100, L500.2500 ####[facility] [address] [place], [address] GAP 13 Normal 5-15 [facility] Comment on above: Performed By: #### L 100.0100, L500.2500 ####[facility] [address] [place], [address] GFR/1.73 sq M.predicted among non-blacks MDRD (S/P/Bld) [Vol rate/Area] 99 mL/min/{1.73_m2} Normal >60 [facility] Comment on above: Result Comment: mL/m in/1.73m2 CKD-EPI Creatinine Equation (2020) Performed By: #### L 100.0100, L500.2500 ####[facility] [address] [place], [address] Glucose [Mass/Vol] 91 mg/dL Normal 70-99 [facility] Comment on above: Performed By: #### L 100.0100, L500.2500 ####[facility] [address] [place], [address] Potassium [Moles/Vol] 3.8 mmol/L Normal 3.3-5.[address] [facility] Comment on above: Performed By: #### L 100.0100, L500.2500 ####[facility] [address] [place], [address] Sodium [Moles/Vol] 134 mmol/L Normal 133-145 [facility] Comment on above: Performed By: #### L 100.0100, L500.2500 ####[facility] [address] [place], [address] Urea nitrogen [Mass/Vol] 8 mg/dL Normal 4-19 [facility] Comment on above: Performed By: #### L 100.0100, L500.2500 ####[facility] [address] [place], [address] Basophil percentageOrdered B y: David Carballo on 07-21-2025 Basophils/100 WBC (Bld) 0.4 % 0-1 [facility] CBC W/Diff, Automatedon 06-24 Absolute Lymph 2.71 X10 3/uL Normal 0.83-4.51 [facility] Comment on above: Performed By: #### L 100.0100, L500.2500 ####[facility] [address] [place], [address] Absolute Neut 3.5 X10 3/uL Normal 2.0-7.7 [facility] Comment on above: Performed By: #### L 100.0100, L500.2500 ####[facility] [address] [place], [address] Basophils/100 WBC (Bld) 0.4 % Normal 0-1 [facility] Comment on above: Performed By: #### L 100.0100, L500.2500 ####[facility] [address] [place], [address] Eosinophils/100 WBC (Bld) 1.2 % Normal 0-5 [facility] Comment on above: Performed By: #### L 100.0100, L500.2500 ####[facility] [address] [place], [address] Erythrocyte distribution width (RBC) [Ratio] 18.3 % High 11.6-14.6 [facility] Comment on above: Performed By: #### L 100.0100, L500.2500 ####[facility] [address] [place], [address] Hematocrit (Bld) [Volume fraction] 33.3 % Low 37-47 [facility] Comment on above: Performed By: #### L 100.0100, L500.2500 ####[facility] [address] [place], [address] Hemoglobin (Bld) [Mass/Vol] 10.5 g/dL Low 12.0-15.0 [facility] Comment on above: Performed By: #### L 100.0100, L500.2500 ####[facility] [address] [place], [address] IG% 0.300 Normal 0.0-0.9 [facility] Comment on above: Result Comment: IG% - Immature Granulocytes (promyelocytes, myelocytes and metamyelocytes) > 1% indicates that a LEFT SHIFT is Present. Performed By: #### L 100.0100, L500.2500 ####[facility] [address] [place], [address] Lymphocytes/100 WBC (Bld) 39.7 % Normal 19-41 [facility] Comment on above: Performed By: #### L 100.0100, L500.2500 ####[facility] [address] [place], [address] MCH (RBC) [Entitic mass] 27.6 pg Normal 27.0-32.0 [facility] Comment on above: Performed By: #### L 100.0100, L500.2500 ####[facility] [address] [place], [address] MCHC (RBC) [Mass/Vol] 31.5 g/dL Low 32-[address] [facility] Comment on above: Performed By: #### L 100.0100, L500.2500 ####[facility] [address] [place], [address] MCV (RBC) [Entitic vol] 87.4 fL Normal 81-99 [facility] Comment on above: Performed By: #### L 100.0100, L500.2500 ####[facility] [address] [place], [address] Monocytes/100 WBC (Bld) 7.3 % Normal 0-10 [facility] Comment on above: Performed By: #### L 100.0100, L500.2500 ####[facility] [address] [place], [address] Neutrophils/100 WBC (Bld) 51.1 % Normal 47-70 [facility] Comment on above: Performed By: #### L 100.0100, L500.2500 ####[facility] [address] [place], [address] Nucleated RBC (Bld) [#/Vol] 0 10*3/uL Normal 0-5 [facility] Comment on above: Performed By: #### L 100.0100, L500.2500 ####[facility] [address] [place], [address] Platelet mean volume (Bld) [Entitic vol] 9.9 fL Normal 6.2-12.0 [facility] Comment on above: Performed By: #### L 100.0100, L500.2500 ####[facility] [address] [place], [address] Platelets (Bld) [#/Vol] 240 10*3/uL Normal 150-450 [facility] Comment on above: Performed By: #### L 100.0100, L500.2500 ####[facility] [address] [place], [address] RBC (Bld) [#/Vol] 3.81 10*6/uL Low 4.2-5.4 [facility] Comment on above: Performed By: #### L 100.0100, L500.2500 ####[facility] [address] [place], [address] RDW SD 57.1 fl High 35.1-43.9 [facility] Comment on above: Performed By: #### L 100.0100, L500.2500 ####[facility] [address] [place], [address] WBC (Bld) [#/Vol] 6.8 10*3/uL Normal 4.4-11.0 [facility] Comment on above: Performed By: #### L 100.0100, L500.2500 ####[facility] [address] [place], [address] Carbon dioxide, total [Moles /volume] in Central venous bloodOrdered By: David Carballo on 07-21-2025 CO2 [Moles/Vol] 25.7 mmol/L 21.0-32.0 [facility] Chest PA and Lateralon 07-21 Chest PA and Lateral [facility] Imaging Services [address] [place] [address] Chest PA and Lateral MR#: [id number] Acct: [id number] Name: AISHA HA Rep #: [id number] : 1965 F 60 From: Luiz Herzog MD PCP: Dr. Geovani Gay MD Status: REG ER Study: Chest PA and Lateral Date of Exam: 07/21/25 Exam# [id number] Ordering Dr: David Carballo MD PROCEDURE: CHEST [...] Possibly new. Resolution left-sided pneumonia. Reading Location: [place] [address] CC: Dr. Geovani Gay MD; Dr. David Carballo MD Sterile Processing Technician: Signed Normal [facility] Chloride assayOrdered By: Long Carballo on 07-21-2025 Chloride [Moles/Vol] 96 mmol/L Low 98-108 [facility] Electrocardiogram reportOrde red By: Jez Smalls on 07-21-2025 EKG study [facility] Cardiovascular Services [address] [place] [address] 12 Lead EKG 07/21/25 1352 MR#: [id number] Acct: [id number] Name: AISHA HA Rep #:[id number] : 1965 60 From: Jez Smalls MD [...] ECG Confirmed by MILLER KENT, JEZ ([id number]), assistant production editor HELADIO MARIN ([id number]) on 58:07:29 AM Referred By: Confirmed By: JEZ SMALLS MD 07/22/2507 Date _ Jez Smalls MD CC: Dr. Geovani Gay MD; Dr. David Carballo MD ~ Signed [facility] Other Phone: Emergency Department Summary on 07-21-2025 Emergency Department Summary [facility] Medical Records Department [address] [place] [address] Emergency Department Summary 07/21/25 MR#: [id number] Acct: [id number] Name: AISHA HA Rep #: [id number] : 1965 60 From: David Carballo MD [...] mg PO (more content not included)... Normal [facility] Eosinophil percentageOrdered By: David Carballo on 07-21-2025 Eosinophils/100 WBC (Bld) 1.2 % 0-5 [facility] Erythrocyte distribution wid th ratioOrdered By: David Carballo on 07-21-2025 Erythrocyte distribution width (RBC) [Ratio] 18.3 % High 11.6-14.6 [facility] Erythrocyte distribution wid th standard deviationOrdered By: David Carballo on 07-21-2025 Erythrocyte distribution width (RBC) [Ratio] 57.1 fl High 35.1-43.9 [facility] Glomerular filtration rate ( GFR) estimation/1.73 sq m using serum, plasma, or whole bOrdered By: David Carballo on 07-21-2025 GFR/1.73 sq M.predicted among non-blacks MDRD (S/P/Bld) [Vol rate/Area] 99 mL/min/{1.73_m2} >60 [facility] Comment on above: mL/min/1.73m2 CKD-EP I Creatinine Equation (2020) Hematocrit Auto (Bld) [Volum e fraction]Ordered By: David Carballo on 07-21-2025 Hematocrit (Bld) [Volume fraction] 33.3 % Low 37-47 [facility] Hemoglobin measurementOrdere d By: David Carballo on 07-21-2025 Hemoglobin (Bld) [Mass/Vol] 10.5 g/dL Low 12.0-15.0 [facility] Immature granulocytes/100 WB C Auto (Bld)Ordered By: David Carballo on 07-21-2025 Immature granulocytes/100 WBC (Bld) 0.300 % 0.0-0.9 [facility] Comment on above: IG% - Immature Granu locytes (promyelocytes, myelocytes and metamyelocytes) > 1% indicates that a LEFT SHIFT is Present. Influenza virus A and B and SARS-CoV-2 (COVID-19) and Respiratory syncytial virus RNAOrdered By: David Carballo on 07-21-2025 SARS-CoV-2 (COVID-19) RNA SRAVANI+probe Ql (Unsp spec) [facility] L501.4021on 07-21-2025 Trop T High Sen 10 ng/L Normal <=14 [facility] Comment on above: Performed By: #### L 503.5519 #### [facility] Laboratory [address] [place], [address] M100.678on 07-21-2025 M100.678 Pending SARS-CoV-2 (COVID 19) Negative INFLUENZA A Negative INFLUENZA B Negative RSV PCR Negative Normal [facility] Comment on above: Performed By: #### M 100.678 ####[facility] [address] [place], [address] MCV (mean corpuscular volume ) determinationOrdered By: David Carballo on 07-21-2025 MCV (RBC) [Entitic vol] 87.4 fL 81-99 [facility] Mean corpuscular hemoglobin (MCH) determinationOrdered By: David Carballo on 07-21-2025 MCH (RBC) [Entitic mass] 27.6 pg 27.0-32.0 [facility] Mean corpuscular hemoglobin concentration (MCHC) determinationOrdered By: David Carballo on 07-21-2025 MCHC (RBC) [Mass/Vol] 31.5 g/dL Low 32-[address] [facility] Mean platelet volume determi nationOrdered By: David Carballo on 07-21-2025 Platelet mean volume (Bld) [Entitic vol] 9.9 fL 6.2-12.0 [facility] Monocyte percentageOrdered B y: David Carballo on 07-21-2025 Monocytes/100 WBC (Bld) 7.3 % 0-10 [facility] Neutrophil percentageOrdered By: David Carballo on 07-21-2025 Neutrophils/100 WBC (Bld) 51.1 % 47-70 [facility] Nucleated red blood cell per centageOrdered By: David Carballo on 07-21-2025 Nucleated RBC/100 WBC (Bld) [Ratio] 0 % 0-5 [facility] Platelet countOrdered By: Long Carballo on 07-21-2025 Platelets (Bld) [#/Vol] 240 10*3/uL 150-450 [facility] Potassium measurement (mass/ volume)Ordered By: David Carballo on 07-21-2025 Potassium (Unsp spec) [Mass/Vol] 3.8 mmol/L 3.3-5.1 [facility] RBC Auto (Bld) [#/Vol]Ordere d By: David Carballo on 07-21-2025 RBC (Bld) [#/Vol] 3.81 10*6/uL Low 4.2-5.4 [facility] Serum creatinine measurement (mass/volume)Ordered By: David Carballo on 07-21-2025 Creatinine [Mass/Vol] 0.67 mg/dL Low 0.70-1.[address] [facility] Serum glucose measurement (m ass/volume)Ordered By: David Carballo on 07-21-2025 Glucose [Mass/Vol] 91 mg/dL 70-99 [facility] Serum or plasma calcium ceasar urement (mass/volume)Ordered By: David Carballo on 07-21-2025 Calcium [Mass/Vol] 8.9 mg/dL 7.6-11.0 [facility] Serum or plasma urea nitroge n measurement (mass/volume)Ordered By: David Carballo on 07-21-2025 Urea nitrogen [Mass/Vol] 8 mg/dL 4-19 [facility] Sodium levelOrdered By: David Carballo on 07-21-2025 Sodium [Moles/Vol] 134 mmol/L 133-145 [facility] Troponin T.cardiac [Mass/vol ume] in Serum or Plasma by High sensitivity methodOrdered By: David Carballo on 07-21-2025 Troponin T.cardiac High sensitivity method [Mass/Vol] 10 ng/L Invalid Interpretation Code <14 [facility] Comment on above: Delta: 22 on White blood cell (WBC) count Ordered By: David Carballo on 07-21-2025 WBC (Bld) [#/Vol] 6.8 10*3/uL 4.4-11.0 [facility] Absolute lymphocyte countOrd ered By: Gabino Madsen on 07-07-2025 Lymphocytes Auto (Unsp spec) [#/Vol] 2.45 10*3/uL 0.83-4.51 [facility] Absolute neutrophil countOrd ered By: Gabino Madsen on 07-07-2025 Neutrophils (Bld) [#/Vol] 6.0 10*3/uL 2.0-7.7 [facility] Anion gap in Serum or Plasma Ordered By: Gabino Madsen on 07-07-2025 Anion gap [Moles/Vol] 11 mmol/L 03-[address] [facility] Automated lymphocyte count a s percentage of total leukocytesOrdered By: Gabino Madsen on 07-07-2025 Lymphocytes/100 WBC Auto (Unsp spec) 26.0 % 19-41 [facility] BUN/creatinine ratioOrdered By: Gabino Madsen on 07-07-2025 Urea nitrogen/Creatinine [Mass ratio] 11.7 mg/mg 10-20 [facility] Basophil percentageOrdered B y: Gabino Madsen on 07-07-2025 Basophils/100 WBC (Bld) 0.5 % 0-1 [facility] Bilirubin, totalOrdered By: Gabino Madsen on 07-07-2025 Bilirubin [Mass/Vol] 0.19 mg/dL 0.00-1.30 [facility] CBC W/Diff, Automatedon 06-23 Absolute Lymph 2.45 X10 3/uL Normal 0.83-4.51 [facility] Comment on above: Performed By: #### L 300.3900, M200.1000, L503.6005, L100.0100, L501.4021, L300.4310, L500.4050 #### [facility] Laboratory [address] [place], [address] Absolute Neut 6.0 X10 3/uL Normal 2.0-7.7 [facility] Comment on above: Performed By: #### L 300.3900, M200.1000, L503.6005, L100.0100, L501.4021, L300.4310, L500.4050 #### [facility] [address] [place], [address] Basophils/100 WBC (Bld) 0.5 % Normal 0-1 [facility] Comment on above: Performed By: #### L 300.3900, M200.1000, L503.6005, L100.0100, L501.4021, L300.4310, L500.4050 #### [facility] [address] [place], [address] Eosinophils/100 WBC (Bld) 1.8 % Normal 0-5 [facility] Comment on above: Performed By: #### L 300.3900, M200.1000, L503.6005, L100.0100, L501.4021, L300.4310, L500.4050 #### [facility] [address] [place], [address] Erythrocyte distribution width (RBC) [Ratio] 17.2 % High 11.6-14.6 [facility] Comment on above: Performed By: #### L 300.3900, M200.1000, L503.6005, L100.0100, L501.4021, L300.4310, L500.4050 #### [facility] [address] [place], [address] Hematocrit (Bld) [Volume fraction] 30.8 % Low 37-47 [facility] Comment on above: Performed By: #### L 300.3900, M200.1000, L503.6005, L100.0100, L501.4021, L300.4310, L500.4050 #### [facility] [address], [address] Hemoglobin (Bld) [Mass/Vol] 9.6 g/dL Low 12.0-15.0 [facility] Comment on above: Performed By: #### L 300.3900, M200.1000, L503.6005, L100.0100, L501.4021, L300.4310, L500.4050 #### [facility] [address] [place], [address] IG% 0.300 Normal 0.0-0.9 [facility] Comment on above: Result Comment: IG% - Immature Granulocytes (promyelocytes, myelocytes and metamyelocytes) > 1% indicates that a LEFT SHIFT is Present. Performed By: #### L 300.3900, M200.1000, L503.6005, L100.0100, L501.4021, L300.4310, L500.4050 #### [facility] [address] [place], [address] Lymphocytes/100 WBC (Bld) 26.0 % Normal 19-41 [facility] Comment on above: Performed By: #### L 300.3900, M200.1000, L503.6005, L100.0100, L501.4021, L300.4310, L500.4050 #### [facility] [address] [place], [address] MCH (RBC) [Entitic mass] 27.0 pg Normal 27.0-32.0 [facility] Comment on above: Performed By: #### L 300.3900, M200.1000, L503.6005, L100.0100, L501.4021, L300.4310, L500.4050 #### [facility] [address] [place], [address] MCHC (RBC) [Mass/Vol] 31.2 g/dL Low 32-[address] [facility] Comment on above: Performed By: #### L 300.3900, M200.1000, L503.6005, L100.0100, L501.4021, L300.4310, L500.4050 #### [facility] [address] [place], [address] MCV (RBC) [Entitic vol] 86.8 fL Normal 81-99 [facility] Comment on above: Performed By: #### L 300.3900, M200.1000, L503.6005, L100.0100, L501.4021, L300.4310, L500.4050 #### [facility] [address] [place], [address] Monocytes/100 WBC (Bld) 7.4 % Normal 0-10 [facility] Comment on above: Performed By: #### L 300.3900, M200.1000, L503.6005, L100.0100, L501.4021, L300.4310, L500.4050 #### [facility] [address] [place], [address] Neutrophils/100 WBC (Bld) 64.0 % Normal 47-70 [facility] Comment on above: Performed By: #### L 300.3900, M200.1000, L503.6005, L100.0100, L501.4021, L300.4310, L500.4050 #### [facility] [address] [place], [address] Nucleated RBC (Bld) [#/Vol] 0 10*3/uL Normal 0-5 [facility] Comment on above: Performed By: #### L 300.3900, M200.1000, L503.6005, L100.0100, L501.4021, L300.4310, L500.4050 #### [facility] [address] [place], [address] Platelet mean volume (Bld) [Entitic vol] 9.9 fL Normal 6.2-12.0 [facility] Comment on above: Performed By: #### L 300.3900, M200.1000, L503.6005, L100.0100, L501.4021, L300.4310, L500.4050 #### [facility] [address] [place], [address] Platelets (Bld) [#/Vol] 208 10*3/uL Normal 150-450 [facility] Comment on above: Performed By: #### L 300.3900, M200.1000, L503.6005, L100.0100, L501.4021, L300.4310, L500.4050 #### [facility] [address] [place], [address] RBC (Bld) [#/Vol] 3.55 10*6/uL Low 4.2-5.4 [facility] Comment on above: Performed By: #### L 300.3900, M200.1000, L503.6005, L100.0100, L501.4021, L300.4310, L500.4050 #### [facility] [address] [place], [address] RDW SD 54.6 fl High 35.1-43.9 [facility] Comment on above: Performed By: #### L 300.3900, M200.1000, L503.6005, L100.0100, L501.4021, L300.4310, L500.4050 #### [facility] [address] [place], [address] WBC (Bld) [#/Vol] 9.4 10*3/uL Normal 4.4-11.0 [facility] Comment on above: Performed By: #### L 300.3900, M200.1000, L503.6005, L100.0100, L501.4021, L300.4310, L500.4050 #### [facility] [address] [place], [address] Carbon dioxide, total [Moles /volume] in Central venous bloodOrdered By: Gabino Madsen on 07-07-2025 CO2 [Moles/Vol] 29.8 mmol/L 21.0-32.0 [facility] Chloride assayOrdered By: Ana Madsen on 07-07-2025 Chloride [Moles/Vol] 97 mmol/L Low 98-108 [facility] Comprehensive Metabolic Prof ilon 07-07-2025 Albumin [Mass/Vol] 3.5 g/dL Normal 3.4-4.8 [facility] Comment on above: Performed By: #### L 503.5510 #### [facility] [address] [place], [address] Albumin/Globulin [Mass ratio] 0.9 {ratio} Normal 0.9-2.4 [facility] Comment on above: Performed By: #### L 503.5510 #### [facility] [address] [place], [address] ALK PHOS 224 U/L High 35-104 [facility] Comment on above: Performed By: #### L 331.5510 #### [facility] [address] [place], [address] ALT [Catalytic activity/Vol] 36 U/L High <=34 [facility] Comment on above: Performed By: #### L 5035510 #### [facility] [address] [place], [address] AST [Catalytic activity/Vol] 41 U/L High <=31 [facility] Comment on above: Performed By: #### L 503.5510 #### [facility] [address] [place], [address] Bilirubin [Mass/Vol] 0.19 mg/dL Normal 0.00-1.30 [facility] Comment on above: Performed By: #### L 5035510 #### [facility] [address] [place], [address] BUN/CRE 11.7 RATIO Normal 10-20 [facility] Comment on above: Performed By: #### L 503.2210 #### [facility] [address] [place], [address] Calcium [Mass/Vol] 9.0 mg/dL Normal 7.6-11.0 [facility] Comment on above: Performed By: #### L 676.5510 #### [facility] [address] [place], [address] Chloride [Moles/Vol] 97 mmol/L Low 98-108 [facility] Comment on above: Performed By: #### L 031.6510 #### [facility] [address] [place], [address] CO2 [Moles/Vol] 29.8 mmol/L Normal 21.0-32.0 [facility] Comment on above: Performed By: #### L 721.8610 #### [facility] [address] [place], [address] Creatinine [Mass/Vol] 0.53 mg/dL Low 0.70-1.[address] [facility] Comment on above: Performed By: #### L 503.5510 #### [facility] [address] [place], [address] GAP 11 Normal 5-15 [facility] Comment on above: Performed By: #### L 503.5510 #### [facility] [address] [place], [address] GFR/1.73 sq M.predicted among non-blacks MDRD (S/P/Bld) [Vol rate/Area] 105 mL/min/{1.73_m2} Normal >60 [facility] Comment on above: Result Comment: mL/m in/1.73m2 CKD-EPI Creatinine Equation (2020) Performed By: #### L 503.5510 #### [facility] [address] [place], [address] Globulin (S) [Mass/Vol] 4.1 g/dL Normal 2.2-4.2 [facility] Comment on above: Performed By: #### L 503.5510 #### [facility] [address] [place], [address] Glucose [Mass/Vol] 103 mg/dL High 70-99 [facility] Comment on above: Performed By: #### L 503.5510 #### [facility] [address] [place], [address] Potassium [Moles/Vol] 3.6 mmol/L Normal 3.3-5.[address] [facility] Comment on above: Performed By: #### L 503.5510 #### [facility] [address] [place], [address] Sodium [Moles/Vol] 138 mmol/L Normal 133-145 [facility] Comment on above: Performed By: #### L 503.5510 #### [facility] [address] [place], [address] T PROT 7.6 g/dL Normal 5.9-8.4 [facility] Comment on above: Performed By: #### L 503.5510 #### [facility] [address] [place], [address] Urea nitrogen [Mass/Vol] 6 mg/dL Normal 4-19 [facility] Comment on above: Performed By: #### L 503.5510 #### [facility] [address] [place], [address] Eosinophil percentageOrdered By: Gabino Madsen on 07-07-2025 Eosinophils/100 WBC (Bld) 1.8 % 0-5 [facility] Erythrocyte Sed Rateon 07-07 SED RATE 78 mm/hr High 0-30 [facility] Comment on above: Performed By: #### L 300.3900, M200.1000, L503.6005, L100.0100, L501.4021, L300.4310, L500.4050 #### [facility] [address] [place], [place], [address] Erythrocyte distribution wid th ratioOrdered By: Gabino Madsen on 07-07-2025 Erythrocyte distribution width (RBC) [Ratio] 17.2 % High 11.6-14.6 [facility] Erythrocyte distribution wid th standard deviationOrdered By: Gabino Madsen on 07-07-2025 Erythrocyte distribution width (RBC) [Ratio] 54.6 fl High 35.1-43.9 [facility] Erythrocyte sedimentation ra teOrdered By: Gabino Madsen on 07-07-2025 ESR (Bld) [Velocity] 78 mm/h High 0-30 [facility] Ferritinon 07-07-2025 Ferritin [Mass/Vol] 19 ng/mL Low 22-378 [facility] Comment on above: Performed By: #### L 300.3900, M200.1000, L503.6005, L100.0100, L501.4021, L300.4310, L500.4050 #### [facility] [address] [facility] [place], [address] Glomerular filtration rate ( GFR) estimation/1.73 sq m using serum, plasma, or whole bOrdered By: Gabino Madsen on 07-07-2025 GFR/1.73 sq M.predicted among non-blacks MDRD (S/P/Bld) [Vol rate/Area] 105 mL/min/{1.73_m2} >60 [facility] Comment on above: mL/min/1.73m2 CKD-EP I Creatinine Equation (2020) Hematocrit Auto (Bld) [Volum e fraction]Ordered By: Gabino Madsen on 07-07-2025 Hematocrit (Bld) [Volume fraction] 30.8 % Low 37-47 [facility] Hemoglobin measurementOrdere d By: Gabino Madsen on 07-07-2025 Hemoglobin (Bld) [Mass/Vol] 9.6 g/dL Low 12.0-15.0 [facility] Immature granulocytes/100 WB C Auto (Bld)Ordered By: [facility] on 07-07-2025 Immature granulocytes/100 WBC (Bld) 0.300 % 0.0-0.9 [facility] Comment on above: IG% - Immature Granu locytes (promyelocytes, myelocytes and metamyelocytes) > 1% indicates that a LEFT SHIFT is Present. Iron measurement (mass/mass) Ordered By: Gabino Madsen on 07-07-2025 Iron (Unsp spec) [Mass/Mass] 19 ug/dL Low 50-170 [facility] Iron+Iron Binding Capacityon 07-07-2025 Iron [Mass/Vol] 19 ug/dL Low 50-170 [facility] Comment on above: Performed By: #### L 503.5510 #### [facility] [address] [facility] [place], [address] IRON SATURATION 5.7 Low 13-59 [facility] Comment on above: Performed By: #### L 503.5510 #### [facility] [address] [facility] [place], [address] TIBC 332 ug/dL Normal 250-450 [facility] Comment on above: Performed By: #### L 503.5510 #### [facility] [address] [place], [address] UIBC 313 ug/dL Normal 228-428 [facility] Comment on above: Performed By: #### L 503.5510 #### [facility] [address] [place], [address] LDHon 07-07-2025 LDH 180 U/L Normal 84-246 [facility] Comment on above: Order Comment: 1 Performed By: #### L 300.3900, M200.1000, L503.6005, L100.0100, L501.4021, L300.4310, L500.4050 #### [facility] [address] [place], [place], [address] Laboratory - Chemistry and C hemistry - challengeOrdered By: Gabino Madsen on 07-07-2025 AST [Catalytic activity/Vol] 41 U/L High <32 [facility] Lactate dehydrogenase (LDH) measurementOrdered By: Gabino Madsen on 07-07-2025 LDH [Catalytic activity/Vol] 180 U/L 84-246 [facility] MCV (mean corpuscular volume ) determinationOrdered By: Gabino Madsen on 07-07-2025 MCV (RBC) [Entitic vol] 86.8 fL 81-99 [facility] Magnesiumon 07-07-2025 Magnesium [Mass/Vol] 1.6 mg/dL Normal 1.5-2.2 [facility] Comment on above: Performed By: #### L 503.5510 #### [facility] [address] [place], [address] Magnesium measurement (mass/ volume)Ordered By: Gabino Madsen on 07-07-2025 Magnesium (Unsp spec) [Mass/Vol] 1.6 mg/dL 1.5-2.2 [facility] Mean corpuscular hemoglobin (MCH) determinationOrdered By: Gabino Madsen on 07-07-2025 MCH (RBC) [Entitic mass] 27.0 pg 27.0-32.0 [facility] Mean corpuscular hemoglobin concentration (MCHC) determinationOrdered By: Gabino Madsen on 07-07-2025 MCHC (RBC) [Mass/Vol] 31.2 g/dL Low 32-[address] [facility] Mean platelet volume determi nationOrdered By: Gabino Madsen on 07-07-2025 Platelet mean volume (Bld) [Entitic vol] 9.9 fL 6.2-12.0 [facility] Monocyte percentageOrdered B y: Gabino Madsen on 07-07-2025 Monocytes/100 WBC (Bld) 7.4 % 0-10 [facility] Neutrophil percentageOrdered By: Gabino Madsen on 07-07-2025 Neutrophils/100 WBC (Bld) 64.0 % 47-70 [facility] No Panel InformationOrdered By: Gabino Madsen on 07-07-2025 Unsaturated Iron Binding Capacity 313 ug/dL 228-428 [facility] Nucleated red blood cell per centageOrdered By: Gabino Madsen on 07-07-2025 Nucleated RBC/100 WBC (Bld) [Ratio] 0 % 0-5 [facility] Oncology Visit Reporton 06-23 Oncology Visit Report [facility] [place] [facility] [address] [place], [place] [address] [address] OFFICE VISIT Date of Service: 07/07/25 1554 MR#: [id number] Acct: [id number] Name: THOAISHA Emma Rep #: [id number] : 1965 From: Gabino Madsen MD Age/Sex: 60/F [place] [facility] [place] Status: Signed HPI Subjective Date of Service [...] COPD and requires home oxygen. [facility] Medical History Anemia Cirrhosis MRSA (methicillin resistant [...] (Verified 06/23 (more content not included)... Normal [facility] Phosphoruson 07-07-2025 Phosphate [Mass/Vol] 3.3 mg/dL Normal 2.7-4.5 [facility] Comment on above: Performed By: #### L 300.3900, M200.1000, L503.6005, L100.0100, L501.4021, L300.4310, L500.4050 #### [facility] [address] [place], [address] Platelet countOrdered By: Ana Madsen on 07-07-2025 Platelets (Bld) [#/Vol] 208 10*3/uL 150-450 [facility] Potassium measurement (mass/ volume)Ordered By: Gabino Madsen on 07-07-2025 Potassium (Unsp spec) [Mass/Vol] 3.6 mmol/L 3.3-5.1 [facility] RBC Auto (Bld) [#/Vol]Ordere d By: Gabino Madsen on 07-07-2025 RBC (Bld) [#/Vol] 3.55 10*6/uL Low 4.2-5.4 [facility] Serum creatinine measurement (mass/volume)Ordered By: Gabino Madsen on 07-07-2025 Creatinine [Mass/Vol] 0.53 mg/dL Low 0.70-1.[address] [facility] Serum globulin measurementOr dered By: Gabino Madsen on 07-07-2025 Globulin (S) [Mass/Vol] 4.1 g/dL 2.2-4.2 [facility] Serum glucose measurement (m ass/volume)Ordered By: Gabino Madsen on 07-07-2025 Glucose [Mass/Vol] 103 mg/dL High 70-99 [facility] Serum or plasma alanine yoder otransferase (ALT) measurementOrdered By: Gabino Madsen on 07-07-2025 ALT [Catalytic activity/Vol] 36 U/L High <35 [facility] Serum or plasma albumin ceasar urement (mass/volume)Ordered By: Gabnio Madsen on 07-07-2025 Albumin [Mass/Vol] 3.5 g/dL 3.4-4.8 [facility] Serum or plasma albumin/glob ulin mass ratioOrdered By: Gabino Madsen on 07-07-2025 Albumin/Globulin [Mass ratio] 0.9 {ratio} 0.9-2.4 [facility] Serum or plasma alkaline letty sphatase measurementOrdered By: Gabino Madsen on 07-07-2025 ALP [Catalytic activity/Vol] 224 U/L High 35-104 [facility] Serum or plasma calcium ceasar urement (mass/volume)Ordered By: Gabino Madsen on 07-07-2025 Calcium [Mass/Vol] 9.0 mg/dL 7.6-11.0 [facility] Serum or plasma ferritin misael surement (mass/volume)Ordered By: Gabino Madsen on 07-07-2025 Ferritin [Mass/Vol] 19 ng/mL Low 22-378 [facility] Serum or plasma iron saturat ion measurement (mass fraction)Ordered By: Gabino Madsen on 07-07-2025 Iron saturation [Mass fraction] 5.7 % Low 13-59 [facility] Serum or plasma urea nitroge n measurement (mass/volume)Ordered By: Gabino Madsen on 07-07-2025 Urea nitrogen [Mass/Vol] 6 mg/dL 4-19 [facility] Sodium levelOrdered By: Khurram Madsen on 07-07-2025 Sodium [Moles/Vol] 138 mmol/L 133-145 [facility] Total proteinOrdered By: Raphael Madsen on 07-07-2025 Protein [Mass/Vol] 7.6 g/dL 5.9-8.4 [facility] Vitamin B12on 07-07-2025 Cobalamin (Vitamin B12) [Mass/Vol] 1181 pg/mL High 180-914 [facility] Comment on above: Performed By: #### L 503.5510 #### [facility] [address] [place], [address] Vitamin B12 ser/plasOrdered By: Gabino Madsen on 07-07-2025 Cobalamin (Vitamin B12) [Mass/Vol] 1181 pg/mL High 180-914 [facility] White blood cell (WBC) count Ordered By: Gabino Madsen on 07-07-2025 WBC (Bld) [#/Vol] 9.4 10*3/uL 4.4-11.0 [facility] 36on 06-30-2025 36 Reviewed chart. Refi ll appropriate. RX sent. [facility] 36 Prescription Request : ONDANSETRON HCL 4 MG TABLET Last medication check: 03/04/25 Last physical exam: none Next scheduled appointment: 09/10/25 Last date of refill on this medication 05/29/24 ( qty 180 refill 1) [facility] 36on 06-26-2025 36 Prescription Request : VITAMIN D2 1.25MG(50,000 UNIT) Last medication check: 03/04/25 Last physical exam: 06/13/24 Next scheduled appointment: 09/10/25 Last date of refill on this medication 01/13/25 ( qty 12 refill 1) [facility] 36on 05-26-2025 36 Rx sent. Follow up a s scheduled. [facility] 36 Medication name: potassium chloride CR (Klor-Con [...] medication tab): 04/07/2025 Updated/Validated preferred pharmacy: Yes [facility]/pharmacy #[id number] - [place], [place] - [address] [place] [address] Patient instructed to contact the pharmacy prior to picking up the medication: no [place] [address]on 05-23-2025 36 Rx sent. Follow up a s scheduled. [facility] 36 Rx sent. Follow up a s scheduled. [facility] PETR + Protein Elect, Serumon 05-22-2025 Albumin [Mass/Vol] 3.2 g/dL Normal 2.9-4.4 [facility] Comment on above: Order Comment: N Performed By: #### L 300.3900, M200.1000, L503.6005, L100.0100, L501.4021, L300.4310, L500.4050 #### [facility] [address] [place], [place], [id number] Albumin/Globulin [Mass ratio] 0.8 {ratio} Normal 0.7-1.7 [facility] Comment on above: Order Comment: N Performed By: #### L 300.3900, M200.1000, L503.6005, L100.0100, L501.4021, L300.4310, L500.4050 #### [facility] [address] [place], [address] [id number] 0.3 g/dL Normal 0.0-0.4 [facility] Comment on above: Order Comment: N Performed By: #### L 300.3900, M200.1000, L503.6005, L100.0100, L501.4021, L300.4310, L500.4050 #### [facility] [address] [place], [address] [id number] 0.8 g/dL Normal 0.4-1.0 [facility] Comment on above: Order Comment: N Performed By: #### L 300.3900, M200.1000, L503.6005, L100.0100, L501.4021, L300.4310, L500.4050 #### [facility] [address] [place], [address] BETA GLOBULIN 1.1 g/dL Normal 0.7-1.3 [facility] Comment on above: Order Comment: N Performed By: #### L 300.3900, M200.1000, L503.6005, L100.0100, L501.4021, L300.4310, L500.4050 #### [facility] [address] [place], [address] GAMMA GLOBULIN 2.2 g/dL High 0.4-1.8 [facility] Comment on above: Order Comment: N Performed By: #### L 300.3900, M200.1000, L503.6005, L100.0100, L501.4021, L300.4310, L500.4050 #### [facility] [address] [place], [address] Globulin (S) [Mass/Vol] 4.4 g/dL Abnormal 2.2-3.9 [facility] Comment on above: Order Comment: N Performed By: #### L 300.3900, M200.1000, L503.6005, L100.0100, L501.4021, L300.4310, L500.4050 #### [facility] [address] [place], [address] PETR RESULT,S Comment: Normal . [facility] Comment on above: Order Comment: N Result Comment: Pres ence of monoclonal protein is unclear at this time. Suggest repeat in 3 to 6 months if clinically indicated. Performed By: #### L 300.3900, M200.1000, L503.6005, L100.0100, L501.4021, L300.4310, L500.4050 #### [facility] [address] [place], [address] IMMUNOGLOB A QN 184 mg/dL Normal 87-352 [facility] Comment on above: Order Comment: N Performed By: #### L 300.3900, M200.1000, L503.6005, L100.0100, L501.4021, L300.4310, L500.4050 #### [facility] [address] [place], [address] IMMUNOGLOB G QN 1863 mg/dL High 586-1602 [facility] Comment on above: Order Comment: N Performed By: #### L 300.3900, M200.1000, L503.6005, L100.0100, L501.4021, L300.4310, L500.4050 #### [facility] [address] [place], [address] IMMUNOGLOB M QN 763 mg/dL High 26-217 [facility] Comment on above: Order Comment: N Result Comment: Resu lts confirmed on dilution. Performed By: #### L 300.3900, M200.1000, L503.6005, L100.0100, L501.4021, L300.4310, L500.4050 #### [facility] [address] [place], [address] M-Fabricio Not Observed Normal Not Observed [facility] Comment on above: Order Comment: N Performed By: #### L 300.3900, M200.1000, L503.6005, L100.0100, L501.4021, L300.4310, L500.4050 #### [facility] [address] [place], [address] NOTE: Comment Normal . [facility] Comment on above: Order Comment: N Result Comment: Prot ein electrophoresis scan will follow via computer, mail, or button sewer hand delivery. Performed By: #### L 300.3900, M200.1000, L503.6005, L100.0100, L501.4021, L300.4310, L500.4050 #### [facility] [address] [place], [address] Protein [Mass/Vol] 7.6 g/dL Normal 6.0-8.5 [facility] Comment on above: Order Comment: N Performed By: #### L 300.3900, M200.1000, L503.6005, L100.0100, L501.4021, L300.4310, L500.4050 #### [facility] [address] [place], [address] Transferrinon 05-22-2025 Transferrin [Mass/Vol] 348 mg/dL Normal 192-364 [facility] Comment on above: Result Comment: Perf ormed at: - [facility] [address] [id number] Director Of Healthcare Systems: Mariano Cheatham PhD, Phone: [phone] Performed By: #### L 300.3900, M200.1000, L503.6005, L100.0100, L501.4021, L300.4310, L500.4050 #### [facility] [address] [place], [address] Absolute lymphocyte countOrd ered By: Cal Bahena on 07-29-2025 Lymphocytes Auto (Unsp spec) [#/Vol] 2.34 10*3/uL 0.83-4.51 [facility] Absolute neutrophil countOrd ered By: Cal Bahena on 05-20-2025 Neutrophils (Bld) [#/Vol] 2.9 10*3/uL 2.0-7.7 [facility] Albumin Elph [Mass/Vol]Order ed By: Cal Bahena on 05-20-2025 Albumin [Mass/Vol] 3.2 g/dL 2.9-4.4 [facility] Automated lymphocyte count a s percentage of total leukocytesOrdered By: Cal Bahena on 05-20-2025 Lymphocytes/100 WBC Auto (Unsp spec) 39.3 % 19-41 [facility] Basophil percentageOrdered B y: Cal Bahena on 05-20-2025 Basophils/100 WBC (Bld) 0.7 % 0-1 [facility] CBC W/Diff, Automatedon 04-23 Absolute Lymph 2.34 X10 3/uL Normal 0.83-4.51 [facility] Comment on above: Performed By: #### L 300.3900, M200.1000, L503.6005, L100.0100, L501.4021, L300.4310, L500.4050 #### [facility] [address] [place], [address] Absolute Neut 2.9 X10 3/uL Normal 2.0-7.7 [facility] Comment on above: Performed By: #### L 300.3900, M200.1000, L503.6005, L100.0100, L501.4021, L300.4310, L500.4050 #### [facility] [address] [place], [address] Basophils/100 WBC (Bld) 0.7 % Normal 0-1 [facility] Comment on above: Performed By: #### L 300.3900, M200.1000, L503.6005, L100.0100, L501.4021, L300.4310, L500.4050 #### [facility] [address] [place], [address] Eosinophils/100 WBC (Bld) 2.9 % Normal 0-5 [facility] Comment on above: Performed By: #### L 300.3900, M200.1000, L503.6005, L100.0100, L501.4021, L300.4310, L500.4050 #### [facility] [address] [place], [address] Erythrocyte distribution width (RBC) [Ratio] 21.2 % High 11.6-14.6 [facility] Comment on above: Performed By: #### L 300.3900, M200.1000, L503.6005, L100.0100, L501.4021, L300.4310, L500.4050 #### [facility] [address] [place], [address] Hematocrit (Bld) [Volume fraction] 32.3 % Low 37-47 [facility] Comment on above: Performed By: #### L 300.3900, M200.1000, L503.6005, L100.0100, L501.4021, L300.4310, L500.4050 #### [facility] [address] [place], [address] Hemoglobin (Bld) [Mass/Vol] 10.1 g/dL Low 12.0-15.0 [facility] Comment on above: Performed By: #### L 300.3900, M200.1000, L503.6005, L100.0100, L501.4021, L300.4310, L500.4050 #### [facility] [address] [place], [address] IG% 0.300 Normal 0.0-0.9 [facility] Comment on above: Result Comment: IG% - Immature Granulocytes (promyelocytes, myelocytes and metamyelocytes) > 1% indicates that a LEFT SHIFT is Present. Performed By: #### L 300.3900, M200.1000, L503.6005, L100.0100, L501.4021, L300.4310, L500.4050 #### [facility] [address] [place], [address] Lymphocytes/100 WBC (Bld) 39.3 % Normal 19-41 [facility] Comment on above: Performed By: #### L 300.3900, M200.1000, L503.6005, L100.0100, L501.4021, L300.4310, L500.4050 #### [facility] [address] [place], [address] MCH (RBC) [Entitic mass] 26.3 pg Low 27.0-32.0 [facility] Comment on above: Performed By: #### L 300.3900, M200.1000, L503.6005, L100.0100, L501.4021, L300.4310, L500.4050 #### [facility] [address] [place], [address] MCHC (RBC) [Mass/Vol] 31.3 g/dL Low 32-[address] [facility] Comment on above: Performed By: #### L 300.3900, M200.1000, L503.6005, L100.0100, L501.4021, L300.4310, L500.4050 #### [facility] [address] [place], [address] MCV (RBC) [Entitic vol] 84.1 fL Normal 81-99 [facility] Comment on above: Performed By: #### L 300.3900, M200.1000, L503.6005, L100.0100, L501.4021, L300.4310, L500.4050 #### [facility] [address] [place], [address] Monocytes/100 WBC (Bld) 7.7 % Normal 0-10 [facility] Comment on above: Performed By: #### L 300.3900, M200.1000, L503.6005, L100.0100, L501.4021, L300.4310, L500.4050 #### [facility] [address] [place], [address] Neutrophils/100 WBC (Bld) 49.1 % Normal 47-70 [facility] Comment on above: Performed By: #### L 300.3900, M200.1000, L503.6005, L100.0100, L501.4021, L300.4310, L500.4050 #### [facility] [address] [place], [address] Nucleated RBC (Bld) [#/Vol] 0 10*3/uL Normal 0-5 [facility] Comment on above: Performed By: #### L 300.3900, M200.1000, L503.6005, L100.0100, L501.4021, L300.4310, L500.4050 #### [facility] [address] [place], [address] Platelet mean volume (Bld) [Entitic vol] 9.5 fL Normal 6.2-12.0 [facility] Comment on above: Performed By: #### L 300.3900, M200.1000, L503.6005, L100.0100, L501.4021, L300.4310, L500.4050 #### [facility] [address] [place], [address] Platelets (Bld) [#/Vol] 209 10*3/uL Normal 150-450 [facility] Comment on above: Performed By: #### L 300.3900, M200.1000, L503.6005, L100.0100, L501.4021, L300.4310, L500.4050 #### [facility] [address] [place], [address] RBC (Bld) [#/Vol] 3.84 10*6/uL Low 4.2-5.4 [facility] Comment on above: Performed By: #### L 300.3900, M200.1000, L503.6005, L100.0100, L501.4021, L300.4310, L500.4050 #### [facility] [address] [place], [address] RDW SD 65.2 fl High 35.1-43.9 [facility] Comment on above: Performed By: #### L 300.3900, M200.1000, L503.6005, L100.0100, L501.4021, L300.4310, L500.4050 #### [facility] [address] [place], [address] WBC (Bld) [#/Vol] 6.0 10*3/uL Normal 4.4-11.0 [facility] Comment on above: Performed By: #### L 300.3900, M200.1000, L503.6005, L100.0100, L501.4021, L300.4310, L500.4050 #### [facility] [address] [place], [address] Eosinophil percentageOrdered By: Cal Friend on 05-20-2025 Eosinophils/100 WBC (Bld) 2.9 % 0-5 [facility] Erythrocyte distribution wid th ratioOrdered By: Cal Friend on 05-20-2025 Erythrocyte distribution width (RBC) [Ratio] 21.2 % High 11.6-14.6 [facility] Erythrocyte distribution wid th standard deviationOrdered By: Cal Friend on 05-20-2025 Erythrocyte distribution width (RBC) [Ratio] 65.2 fl High 35.1-43.9 [facility] Ferritinon 05-20-2025 Ferritin [Mass/Vol] 17 ng/mL Low 22-378 [facility] Comment on above: Performed By: #### L 300.3900, M200.1000, L503.6005, L100.0100, L501.4021, L300.4310, L500.4050 #### [facility] [address] [place], [address] Gastroenterology Visit Repor ton 05-20-2025 Gastroenterology Visit Report [facility] [address] [place] [address] OFFICE VISIT Date of Service: 05/20/25 MR#: [id number] Acct: [id number] Name: AISHA HA Emma Rep #: [id number] : 1965 Provider: Cal Bahena DO Age/Sex: 60/F [place] [facility] [place] Status: Signed Intake Vital Signs 03/25/25 12:15 [...] weeks #112 tabs 05/20/25 Rx [facility] Medical History (Updated 05/20/25 @ 17:46 by [...] Seizures Na (more content not included)... Normal [facility] Hematocrit Auto (Bld) [Volum e fraction]Ordered By: Cal Bahena on 05-20-2025 Hematocrit (Bld) [Volume fraction] 32.3 % Low 37-47 [facility] Hemoglobin measurementOrdere d By: Cal Bahena on 05-20-2025 Hemoglobin (Bld) [Mass/Vol] 10.1 g/dL Low 12.0-15.0 [facility] Immature granulocytes/100 WB C Auto (Bld)Ordered By: Cal Bahena on 05-20-2025 Immature granulocytes/100 WBC (Bld) 0.300 % 0.0-0.9 [facility] Comment on above: IG% - Immature Granu locytes (promyelocytes, myelocytes and metamyelocytes) > 1% indicates that a LEFT SHIFT is Present. Interpretation of serum or p lasma protein pattern by immunofixation (narrative resultOrdered By: Cal Bahena on 05-20-2025 Protein Fractions Immunofixation Neal [Interp] Not Observed g/dL Not Observed [facility] Ironon 05-20-2025 Iron [Mass/Vol] 26 ug/dL Low 50-170 [facility] Comment on above: Performed By: #### L 300.3900, M200.1000, L503.6005, L100.0100, L501.4021, L300.4310, L500.4050 #### [facility] [address] [place], [address] Iron measurement (mass/mass) Ordered By: Cal Bahena on 05-20-2025 Iron (Unsp spec) [Mass/Mass] 26 ug/dL Low 50-170 [facility] LDHon 05-20-2025 LDH 244 U/L Normal 84-246 [facility] Comment on above: Order Comment: 1 Performed By: #### L 300.3900, M200.1000, L503.6005, L100.0100, L501.4021, L300.4310, L500.4050 #### [facility] [address] [place], [address] Laboratory - Hematology and Cell countsOrdered By: Cal Bahena on 05-20-2025 Anisocytosis Ql (Bld) 1+ [facility] Lactate dehydrogenase (LDH) measurementOrdered By: Cal Bahena on 05-20-2025 LDH [Catalytic activity/Vol] 244 U/L 84-246 [facility] MCV (mean corpuscular volume ) determinationOrdered By: Cal Bahena on 05-20-2025 MCV (RBC) [Entitic vol] 84.1 fL 81-99 [facility] Mean corpuscular hemoglobin (MCH) determinationOrdered By: Cal Bahena on 05-20-2025 MCH (RBC) [Entitic mass] 26.3 pg Low 27.0-32.0 [facility] Mean corpuscular hemoglobin concentration (MCHC) determinationOrdered By: Cal Bahena on 05-20-2025 MCHC (RBC) [Mass/Vol] 31.3 g/dL Low 32-[address] [facility] Mean platelet volume determi nationOrdered By: Cal Bahena on 05-20-2025 Platelet mean volume (Bld) [Entitic vol] 9.5 fL 6.2-12.0 [facility] Monocyte percentageOrdered B y: Cal Bahena on 05-20-2025 Monocytes/100 WBC (Bld) 7.7 % 0-10 [facility] Neutrophil percentageOrdered By: Cal Bahena on 05-20-2025 Neutrophils/100 WBC (Bld) 49.1 % 47-70 [facility] No Panel InformationOrdered By: Cal Bahena on 05-20-2025 Addendum Document Comment . [facility] Comment on above: Protein electrophore sis scan will follow via computer,mail, or button sewer hand delivery. Nucleated red blood cell per centageOrdered By: Cal Bahena on 05-20-2025 Nucleated RBC/100 WBC (Bld) [Ratio] 0 % 0-5 [facility] Platelet countOrdered By: Ra joni Bahena on 05-20-2025 Platelets (Bld) [#/Vol] 209 10*3/uL 150-450 [facility] Platelet estimateOrdered By: Cal Bahena on 05-20-2025 Platelets LM Ql (Bld) A ADEQ [facility] RBC Auto (Bld) [#/Vol]Ordere d By: Cal Bahena on 05-20-2025 RBC (Bld) [#/Vol] 3.84 10*6/uL Low 4.2-5.4 [facility] Retic Panelon 05-20-2025 IM RET FRACTION 16.30 High 3.00-15.90 [facility] Comment on above: Performed By: #### L 300.3900, M200.1000, L503.6005, L100.0100, L501.4021, L300.4310, L500.4050 #### [facility] [address] [place], [place], [id number] RET-HE 25.4 pg Low 30- [facility] Comment on above: Performed By: #### L 300.3900, M200.1000, L503.6005, L100.0100, L501.4021, L300.4310, L500.4050 #### [facility] [address] [place], [place], [id number] Retic Count 1.02 Normal 0.5-1.5 [facility] Comment on above: Performed By: #### L 300.3900, M200.1000, L503.6005, L100.0100, L501.4021, L300.4310, L500.4050 #### [facility] [address] [place], [place], [id number] Reticulocyte hemoglobin equi valent (RET-He) measurementOrdered By: Calmelissa Bahena on 05-20-2025 Hemoglobin (Reticulocytes) [Entitic mass] 25.4 pg Low 30-35 [facility] Reticulocytes Auto (Bld) [#/ Vol]Ordered By: Calmelissa Bahena on 05-20-2025 Reticulocytes/100 RBC (Bld) 1.02 % 0.5-1.5 [facility] Serum globulin measurement ( mass/volume)Ordered By: Calmelissa Bahena on 05-20-2025 Globulin (S) [Mass/Vol] 4.4 g/dL High 2.2-3.9 [facility] Serum or plasma IgA measurem ent (mass/volume)Ordered By: Cal Bahena on 05-20-2025 IgA [Mass/Vol] 184 mg/dL 87-352 [facility] Serum or plasma IgG measurem ent (mass/volume)Ordered By: Cal Bahena on 05-20-2025 IgG [Mass/Vol] 1863 mg/dL High 586-1602 [facility] Serum or plasma alpha 1 glob ulin measurement by electrophoresis (mass/volume)Ordered By: Cal Bahena on 05-20-2025 Alpha 1 globulin Elph [Mass/Vol] 0.3 g/dL 0.0-0.4 [facility] Alpha 1 globulin Elph [Mass/Vol] 0.8 g/dL 0.4-1.0 [facility] Serum or plasma beta globuli n measurement by electrophoresis (mass/volume)Ordered By: Cal Bahena on 05-20-2025 Beta globulin Elph [Mass/Vol] 1.1 g/dL 0.7-1.3 [facility] Serum or plasma ferritin misael surement (mass/volume)Ordered By: Cal Bahena on 05-20-2025 Ferritin [Mass/Vol] 17 ng/mL Low 22-378 [facility] Serum or plasma gamma globul in measurement by electrophoresis (mass/volume)Ordered By: Cal Bahena on 05-20-2025 Gamma globulin Elph [Mass/Vol] 2.2 g/dL High 0.4-1.8 [facility] [facility] or plasma immunoelectr ophoresis interpretation (nominal result)Ordered By: Cal Bahena on 05-20-2025 Interpretation IEP [Interp] Comment: . [facility] Comment on above: Presence of monoclon al protein is unclear at this time. Suggestrepeat in 3 to 6 months if clinically indicated. Serum or plasma protein ceasar urement (mass/volume)Ordered By: Cal Bahena on 05-20-2025 Protein [Mass/Vol] 7.6 g/dL 6.0-8.5 [facility] TransferrinOrdered By: Aayush Bahena on 05-20-2025 Transferrin [Mass/Vol] 348 mg/dL 192-364 [facility] Comment on above: Performed at: [facility] [address] [id number] Director: Mariano Cheatham PhD, Phone: [phone] White blood cell (WBC) count Ordered By: Cal Friend on 05-20-2025 WBC (Bld) [#/Vol] 6.0 10*3/uL 4.4-11.0 [facility] 36on 05-07-2025 36 Okay, thank you [facility] 36 S: Patient spoke wit h [facility] nurse regarding nasal congestion B: Onset of [...] Severe headache Protocols used: Sinus Pain or Vkzqividrs-[id number] [facility] ED Nursing Noteon 05-07-2025 ED Nursing Note Patient to room 3 wi th c/o sinus pain for the last 4 days. Patient reports she gets this a couple times a year. V/S obtained, call light within reach. [facility] ED Provider Noteon ED Provider Note EMERGENCY [...] mouth daily. ERGOCALCIFEROL (VITAMIN D2) 1.25 MG (30064 UT) CAPSULE TAKE 1 CAPSULE BY MOUTH [...] hours as needed (wheezing, cough,). NYSTATIN (MYCOSTATIN) 056407 UNIT/ML SUSPENSION Take 5 mL (500,000 Units) [...] presented with chief (more content not included)... [address] 04-25-2025 36 Reviewed chart. Refi ll appropriate. RX sent. [place] [address] Reviewed chart. Refi ll appropriate. RX sent. [address] 04-14-2025 36 Prescription Request : METOPROLOL SUCC ER 25 MG TAB Last medication check: 03/04/25 Last physical exam: 06/13/24 Next scheduled appointment: 09/10/25 Last date of refill on this medication 10/28/24 ( qty 90 refill 1) [address] 04-10-2025 36 Pt notified [facility] 36 Rx for spacer sent t o the pharmacy, she needs to make sure she is rinsing her mouth out really well after she uses Symbicort. [address] 04-09-2025 36 Name of caller: Rebekah Contact phone number: [phone] Relationship to Patient: Direction Home Provider: Victor [...] business hours to return their call: No [facility] 36on 04-07-2025 36 Returned call per request. Reviewed medications with her daughter and she states she was discharged on Lasix 20 mg twice a day and potassium 20 mEq once daily. Medication list updated to reflect current dosing of medications. [facility] 36 Name of caller: Russell Long Contact phone number: [phone] Relationship to Patient: family member patient and [...] business hours to return their call: Yes [facility] Office Visiton 04-07-2025 Follow-up visit [id number] Aisha Ha 1965 F Date Provider Department Center 04/07/2025 [id number] GONZALES [facility] Family History Problem Relation Age of Onset Heart attack Mother Arthritis Mother High Blood Pressure Mother Depression Mother Cervical cancer Mother 30 Substance Abuse Father Arthritis Father High Blood Pressure Father Diabetes Father Family Status - Relation Status Age at Mother Father Level of Service:47750 MS TRANSJ CARE MGMT MOD MDM F2F 14 CIARA D DISCHARGE Reason for Visit and Comments: Hospital Follow-up [832] - [facility]- Resp. Failure, PNA, Hypokalemia, Hypomagnesia. States not feeling very well today [facility] Progress Noteon 04-07-2025 Progress Note [address] [id number] Post-Discharge Transitional Care Follow Up Date of [...] chronic respiratory failure with hypoxia (HCC) - [facility] Pulmonary/Pulmonology - Chronic, stable - Currently wearing [...] States she does not follow-up with a preventive medicine specialist - Ammonia level stable while hospitalized - Will check liver enzymes today with blood work 7. Dependence on continuous supplemental oxygen - [facility] Pulmonary/Pulmonology - Oxygen level stable on 3 L via nasal cannula - Will have her consult with pulmonology for ongoing management 8. Chronic obstructive pulmonary disease, unspecified COPD type (HCC) - [facility] Pulmonary/Pulmonology - Chronic, stable - Incruse Ellipta as prescribed - Continuous oxygen as directed Medical Decision Making moderate Follow up in 5 months (on 09/10/2025) for Next scheduled follow-up or sooner if needed. Linda Gonzales APRN - KEMAR 04/07/25 10:04 AM MARYANNE Izaguirre presents today for a hospital discharge follow-up from [facility] from 03/20/2025 through 03/25/2025. [...] States she does not follow-up with a mail technician currently. Inpatient course: Discharge summary reviewed Interval History Admitted on 03/20/2025 and discharged on 03/25/2025 I have performed a medication reconciliation during this visit and have r (more content not included)... [facility] Progress Note Patient verified by last name and . [facility] 36on 03-28-2025 36 Noted. Will see as scheduled. [facility] 36 Called patient to schedule her EMMIE visit from the hospital stay at [facility] admitted 03-20-25 and discharged [...] scheduled with Linda Gonzales on 04-07-25 Normal [facility] Basic Metabolic Profile (BMP )on 03-28-2025 BUN Normal 4-19 [facility] Comment on above: Result Comment: Canc elled via OM: Order cancelled - Patient discharged Performed By: #### L 300.3900, M200.1000, L503.6005, L100.0100, L501.4021, L300.4310, L500.4050 #### [facility] [address] [place], [address] BUN/CRE Normal 10-20 [facility] Comment on above: Result Comment: Canc elled via OM: Order cancelled - Patient discharged Performed By: #### L 300.3900, M200.1000, L503.6005, L100.0100, L501.4021, L300.4310, L500.4050 #### [facility] [address] [place], [address] Calcium Normal 7.6-11.0 [facility] Comment on above: Result Comment: Canc elled via OM: Order cancelled - Patient discharged Performed By: #### L 300.3900, M200.1000, L503.6005, L100.0100, L501.4021, L300.4310, L500.4050 #### [facility] [address] [place], [address] CL Normal 98-108 [facility] Comment on above: Result Comment: Canc elled via OM: Order cancelled - Patient discharged Performed By: #### L 300.3900, M200.1000, L503.6005, L100.0100, L501.4021, L300.4310, L500.4050 #### [facility] [address] [place], [address] CO2 Normal 21.0-32.0 [facility] Comment on above: Result Comment: Canc elled via OM: Order cancelled - Patient discharged Performed By: #### L 300.3900, M200.1000, L503.6005, L100.0100, L501.4021, L300.4310, L500.4050 #### [facility] [address] [place], [address] CREAT,SERUM Normal 0.70-1.20 [facility] Comment on above: Result Comment: Canc elled via OM: Order cancelled - Patient discharged Performed By: #### L 300.3900, M200.1000, L503.6005, L100.0100, L501.4021, L300.4310, L500.4050 #### [facility] [address] [place], [address] eGFR Normal >60 [facility] Comment on above: Result Comment: Canc elled via OM: Order cancelled - Patient discharged Performed By: #### L 300.3900, M200.1000, L503.6005, L100.0100, L501.4021, L300.4310, L500.4050 #### [facility] [address] [place], [address] GAP Normal 5-15 [facility] Comment on above: Result Comment: Canc elled via OM: Order cancelled - Patient discharged Performed By: #### L 300.3900, M200.1000, L503.6005, L100.0100, L501.4021, L300.4310, L500.4050 #### [facility] [address] [place], [address] GLU Normal 70-99 [facility] Comment on above: Result Comment: Canc elled via OM: Order cancelled - Patient discharged Performed By: #### L 300.3900, M200.1000, L503.6005, L100.0100, L501.4021, L300.4310, L500.4050 #### [facility] [address] [place], [address] Potassium Normal 3.3-5.1 [facility] Comment on above: Result Comment: Canc elled via OM: Order cancelled - Patient discharged Performed By: #### L 300.3900, M200.1000, L503.6005, L100.0100, L501.4021, L300.4310, L500.4050 #### [facility] [address] [place], [address] Basic Metabolic Profile (BMP) Normal 133-145 [facility] Comment on above: Result Comment: Canc elled via OM: Order cancelled - Patient discharged Performed By: #### L 300.3900, M200.1000, L503.6005, L100.0100, L501.4021, L300.4310, L500.4050 #### [facility] [address] [place], [address] CBC W/Diff, Automatedon 06-0 -2024 Absolute Neut Normal 2.0-7.7 [facility] Comment on above: Result Comment: Canc elled via OM: Order cancelled - Patient discharged Performed By: #### L 300.3900, M200.1000, L503.6005, L100.0100, L501.4021, L300.4310, L500.4050 #### [facility] [address] [place], [address] HCT Normal 37-47 [facility] Comment on above: Result Comment: Canc elled via OM: Order cancelled - Patient discharged Performed By: #### L 300.3900, M200.1000, L503.6005, L100.0100, L501.4021, L300.4310, L500.4050 #### [facility] [address] [place], [address] HGB Normal 12.0-15.0 [facility] Comment on above: Result Comment: Canc elled via OM: Order cancelled - Patient discharged Performed By: #### L 300.3900, M200.1000, L503.6005, L100.0100, L501.4021, L300.4310, L500.4050 #### [facility] [address] [place], [address] MCH Normal 27.0-32.0 [facility] Comment on above: Result Comment: Canc elled via OM: Order cancelled - Patient discharged Performed By: #### L 300.3900, M200.1000, L503.6005, L100.0100, L501.4021, L300.4310, L500.4050 #### [facility] [address] [place], [address] MCHC Normal 32-36 [facility] Comment on above: Result Comment: Canc elled via OM: Order cancelled - Patient discharged Performed By: #### L 300.3900, M200.1000, L503.6005, L100.0100, L501.4021, L300.4310, L500.4050 #### [facility] [address] [place], [address] MCV Normal 81-99 [facility] Comment on above: Result Comment: Canc elled via OM: Order cancelled - Patient discharged Performed By: #### L 300.3900, M200.1000, L503.6005, L100.0100, L501.4021, L300.4310, L500.4050 #### [facility] [address] [place], [address] NEUT% Normal 47-70 [facility] Comment on above: Result Comment: Canc elled via OM: Order cancelled - Patient discharged Performed By: #### L 300.3900, M200.1000, L503.6005, L100.0100, L501.4021, L300.4310, L500.4050 #### [facility] [address] [place], [address] PLT Normal 150-450 [facility] Comment on above: Result Comment: Canc elled via OM: Order cancelled - Patient discharged Performed By: #### L 300.3900, M200.1000, L503.6005, L100.0100, L501.4021, L300.4310, L500.4050 #### [facility] [address] [place], [address] RBC Normal 4.2-5.4 [facility] Comment on above: Result Comment: Canc elled via OM: Order cancelled - Patient discharged Performed By: #### L 300.3900, M200.1000, L503.6005, L100.0100, L501.4021, L300.4310, L500.4050 #### [facility] [address] [place], [address] RDW CV Normal 11.6-14.6 [facility] Comment on above: Result Comment: Canc elled via OM: Order cancelled - Patient discharged Performed By: #### L 300.3900, M200.1000, L503.6005, L100.0100, L501.4021, L300.4310, L500.4050 #### [facility] [address] [place], [address] RDW SD Normal 35.1-43.9 [facility] Comment on above: Result Comment: Canc elled via OM: Order cancelled - Patient discharged Performed By: #### L 300.3900, M200.1000, L503.6005, L100.0100, L501.4021, L300.4310, L500.4050 #### [facility] [address] [place], [address] WBC Normal 4.4-11.0 [facility] Comment on above: Result Comment: Canc elled via OM: Order cancelled - Patient discharged Performed By: #### L 300.3900, M200.1000, L503.6005, L100.0100, L501.4021, L300.4310, L500.4050 #### [facility] [address] 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 Patient is requesting date sooner that 04/10/25 and 04/16/25. Please advise. Office Name: [facility] Medication Refills need, if any: n/a Medication Name: n/a Normal [facility] Basic Metabolic Profile (BMP )on 03-27-2025 BUN Normal 4-19 [facility] Comment on above: Result Comment: Canc elled via OM: Order cancelled - Patient discharged Performed By: #### L 300.3900, M200.1000, L503.6005, L100.0100, L501.4021, L300.4310, L500.4050 #### [facility] [address] [place], [place], [id number] BUN/CRE Normal 10-20 [facility] Comment on above: Result Comment: Canc elled via OM: Order cancelled - Patient discharged Performed By: #### L 300.3900, M200.1000, L503.6005, L100.0100, L501.4021, L300.4310, L500.4050 #### [facility] [address] [place], [place], [id number] Calcium Normal 7.6-11.0 [facility] Comment on above: Result Comment: Canc elled via OM: Order cancelled - Patient discharged Performed By: #### L 300.3900, M200.1000, L503.6005, L100.0100, L501.4021, L300.4310, L500.4050 #### [facility] [address] [place], [address] CL Normal 98-108 [facility] Comment on above: Result Comment: Canc elled via OM: Order cancelled - Patient discharged Performed By: #### L 300.3900, M200.1000, L503.6005, L100.0100, L501.4021, L300.4310, L500.4050 #### [facility] [address] [place], [address] CO2 Normal 21.0-32.0 [facility] Comment on above: Result Comment: Canc elled via OM: Order cancelled - Patient discharged Performed By: #### L 300.3900, M200.1000, L503.6005, L100.0100, L501.4021, L300.4310, L500.4050 #### [facility] [address] [place], [address] CREAT,SERUM Normal 0.70-1.20 [facility] Comment on above: Result Comment: Canc elled via OM: Order cancelled - Patient discharged Performed By: #### L 300.3900, M200.1000, L503.6005, L100.0100, L501.4021, L300.4310, L500.4050 #### [facility] [address] [place], [address] eGFR Normal >60 [facility] Comment on above: Result Comment: Canc elled via OM: Order cancelled - Patient discharged Performed By: #### L 300.3900, M200.1000, L503.6005, L100.0100, L501.4021, L300.4310, L500.4050 #### [facility] [address] [place], [address] GAP Normal 5-15 [facility] Comment on above: Result Comment: Canc elled via OM: Order cancelled - Patient discharged Performed By: #### L 300.3900, M200.1000, L503.6005, L100.0100, L501.4021, L300.4310, L500.4050 #### [facility] [address] [place], [address] GLU Normal 70-99 [facility] Comment on above: Result Comment: Canc elled via OM: Order cancelled - Patient discharged Performed By: #### L 300.3900, M200.1000, L503.6005, L100.0100, L501.4021, L300.4310, L500.4050 #### [facility] [address] [place], [address] Potassium Normal 3.3-5.1 [facility] Comment on above: Result Comment: Canc elled via OM: Order cancelled - Patient discharged Performed By: #### L 300.3900, M200.1000, L503.6005, L100.0100, L501.4021, L300.4310, L500.4050 #### [facility] [address] [place], [address] Basic Metabolic Profile (BMP) Normal 133-145 [facility] Comment on above: Result Comment: Canc elled via OM: Order cancelled - Patient discharged Performed By: #### L 300.3900, M200.1000, L503.6005, L100.0100, L501.4021, L300.4310, L500.4050 #### [facility] [address] [place], [address] CBC W/Diff, Automatedon 06-0 -2024 Absolute Neut Normal 2.0-7.7 [facility] Comment on above: Result Comment: Canc elled via OM: Order cancelled - Patient discharged Performed By: #### L 300.3900, M200.1000, L503.6005, L100.0100, L501.4021, L300.4310, L500.4050 #### [facility] [address] [place], [address] HCT Normal 37-47 [facility] Comment on above: Result Comment: Canc elled via OM: Order cancelled - Patient discharged Performed By: #### L 300.3900, M200.1000, L503.6005, L100.0100, L501.4021, L300.4310, L500.4050 #### [facility] [address] [place], [address] HGB Normal 12.0-15.0 [facility] Comment on above: Result Comment: Canc elled via OM: Order cancelled - Patient discharged Performed By: #### L 300.3900, M200.1000, L503.6005, L100.0100, L501.4021, L300.4310, L500.4050 #### [facility] [address] [place], [address] MCH Normal 27.0-32.0 [facility] Comment on above: Result Comment: Canc elled via OM: Order cancelled - Patient discharged Performed By: #### L 300.3900, M200.1000, L503.6005, L100.0100, L501.4021, L300.4310, L500.4050 #### [facility] [address] [place], [address] MCHC Normal 32-36 [facility] Comment on above: Result Comment: Canc elled via OM: Order cancelled - Patient discharged Performed By: #### L 300.3900, M200.1000, L503.6005, L100.0100, L501.4021, L300.4310, L500.4050 #### [facility] [address] [place], [address] MCV Normal 81-99 [facility] Comment on above: Result Comment: Canc elled via OM: Order cancelled - Patient discharged Performed By: #### L 300.3900, M200.1000, L503.6005, L100.0100, L501.4021, L300.4310, L500.4050 #### [facility] [address] [place], [address] NEUT% Normal 47-70 [facility] Comment on above: Result Comment: Canc elled via OM: Order cancelled - Patient discharged Performed By: #### L 300.3900, M200.1000, L503.6005, L100.0100, L501.4021, L300.4310, L500.4050 #### [facility] [address] [place], [address] PLT Normal 150-450 [facility] Comment on above: Result Comment: Canc elled via OM: Order cancelled - Patient discharged Performed By: #### L 300.3900, M200.1000, L503.6005, L100.0100, L501.4021, L300.4310, L500.4050 #### [facility] [address] [place], [address] RBC Normal 4.2-5.4 [facility] Comment on above: Result Comment: Canc elled via OM: Order cancelled - Patient discharged Performed By: #### L 300.3900, M200.1000, L503.6005, L100.0100, L501.4021, L300.4310, L500.4050 #### [facility] [address] [place], [address] RDW CV Normal 11.6-14.6 [facility] Comment on above: Result Comment: Canc elled via OM: Order cancelled - Patient discharged Performed By: #### L 300.3900, M200.1000, L503.6005, L100.0100, L501.4021, L300.4310, L500.4050 #### [facility] [address] [place], [address] RDW SD Normal 35.1-43.9 [facility] Comment on above: Result Comment: Canc elled via OM: Order cancelled - Patient discharged Performed By: #### L 300.3900, M200.1000, L503.6005, L100.0100, L501.4021, L300.4310, L500.4050 #### [facility] [address] [place], [address] WBC Normal 4.4-11.0 [facility] Comment on above: Result Comment: Canc elled via OM: Order cancelled - Patient discharged Performed By: #### L 300.3900, M200.1000, L503.6005, L100.0100, L501.4021, L300.4310, L500.4050 #### [facility] [address] [place], [address] Basic Metabolic Profile (BMP )on 03-26-2025 BUN Normal 4-19 [facility] Comment on above: Result Comment: Canc elled via OM: Order cancelled - Patient discharged Performed By: #### L 300.3900, M200.1000, L503.6005, L100.0100, L501.4021, L300.4310, L500.4050 #### [facility] [address] [place], [address] BUN/CRE Normal 10-20 [facility] Comment on above: Result Comment: Canc elled via OM: Order cancelled - Patient discharged Performed By: #### L 300.3900, M200.1000, L503.6005, L100.0100, L501.4021, L300.4310, L500.4050 #### [facility] [address] [place], [address] Calcium Normal 7.6-11.0 [facility] Comment on above: Result Comment: Canc elled via OM: Order cancelled - Patient discharged Performed By: #### L 300.3900, M200.1000, L503.6005, L100.0100, L501.4021, L300.4310, L500.4050 #### [facility] [address] [place], [address] CL Normal 98-108 [facility] Comment on above: Result Comment: Canc elled via OM: Order cancelled - Patient discharged Performed By: #### L 300.3900, M200.1000, L503.6005, L100.0100, L501.4021, L300.4310, L500.4050 #### [facility] [address] [place], [address] CO2 Normal 21.0-32.0 [facility] Comment on above: Result Comment: Canc elled via OM: Order cancelled - Patient discharged Performed By: #### L 300.3900, M200.1000, L503.6005, L100.0100, L501.4021, L300.4310, L500.4050 #### [facility] [address] [place], [address] CREAT,SERUM Normal 0.70-1.20 [facility] Comment on above: Result Comment: Canc elled via OM: Order cancelled - Patient discharged Performed By: #### L 300.3900, M200.1000, L503.6005, L100.0100, L501.4021, L300.4310, L500.4050 #### [facility] [address] [place], [address] eGFR Normal >60 [facility] Comment on above: Result Comment: Canc elled via OM: Order cancelled - Patient discharged Performed By: #### L 300.3900, M200.1000, L503.6005, L100.0100, L501.4021, L300.4310, L500.4050 #### [facility] [address] [place], [address] GAP Normal 5-15 [facility] Comment on above: Result Comment: Canc elled via OM: Order cancelled - Patient discharged Performed By: #### L 300.3900, M200.1000, L503.6005, L100.0100, L501.4021, L300.4310, L500.4050 #### [facility] [address] [place], [address] GLU Normal 70-99 [facility] Comment on above: Result Comment: Canc elled via OM: Order cancelled - Patient discharged Performed By: #### L 300.3900, M200.1000, L503.6005, L100.0100, L501.4021, L300.4310, L500.4050 #### [facility] [address] [place], [address] Potassium Normal 3.3-5.1 [facility] Comment on above: Result Comment: Canc elled via OM: Order cancelled - Patient discharged Performed By: #### L 300.3900, M200.1000, L503.6005, L100.0100, L501.4021, L300.4310, L500.4050 #### [facility] [address] [place], [address] Basic Metabolic Profile (BMP) Normal 133-145 [facility] Comment on above: Result Comment: Canc elled via OM: Order cancelled - Patient discharged Performed By: #### L 300.3900, M200.1000, L503.6005, L100.0100, L501.4021, L300.4310, L500.4050 #### [facility] [address] [place], [address] CBC W/Diff, Automatedon 06-0 -2024 Absolute Neut Normal 2.0-7.7 [facility] Comment on above: Result Comment: Canc elled via OM: Order cancelled - Patient discharged Performed By: #### L 300.3900, M200.1000, L503.6005, L100.0100, L501.4021, L300.4310, L500.4050 #### [facility] [address] [place], [address] HCT Normal 37-47 [facility] Comment on above: Result Comment: Canc elled via OM: Order cancelled - Patient discharged Performed By: #### L 300.3900, M200.1000, L503.6005, L100.0100, L501.4021, L300.4310, L500.4050 #### [facility] [address] [place], [address] HGB Normal 12.0-15.0 [facility] Comment on above: Result Comment: Canc elled via OM: Order cancelled - Patient discharged Performed By: #### L 300.3900, M200.1000, L503.6005, L100.0100, L501.4021, L300.4310, L500.4050 #### [facility] [address] [place], [address] MCH Normal 27.0-32.0 [facility] Comment on above: Result Comment: Canc elled via OM: Order cancelled - Patient discharged Performed By: #### L 300.3900, M200.1000, L503.6005, L100.0100, L501.4021, L300.4310, L500.4050 #### [facility] [address] [place], [address] MCHC Normal 32-36 [facility] Comment on above: Result Comment: Canc elled via OM: Order cancelled - Patient discharged Performed By: #### L 300.3900, M200.1000, L503.6005, L100.0100, L501.4021, L300.4310, L500.4050 #### [facility] [address] [place], [address] MCV Normal 81-99 [facility] Comment on above: Result Comment: Canc elled via OM: Order cancelled - Patient discharged Performed By: #### L 300.3900, M200.1000, L503.6005, L100.0100, L501.4021, L300.4310, L500.4050 #### [facility] [address] [place], [address] NEUT% Normal 47-70 [facility] Comment on above: Result Comment: Canc elled via OM: Order cancelled - Patient discharged Performed By: #### L 300.3900, M200.1000, L503.6005, L100.0100, L501.4021, L300.4310, L500.4050 #### [facility] [address] [place], [address] PLT Normal 150-450 [facility] Comment on above: Result Comment: Canc elled via OM: Order cancelled - Patient discharged Performed By: #### L 300.3900, M200.1000, L503.6005, L100.0100, L501.4021, L300.4310, L500.4050 #### [facility] [address] [place], [address] RBC Normal 4.2-5.4 [facility] Comment on above: Result Comment: Canc elled via OM: Order cancelled - Patient discharged Performed By: #### L 300.3900, M200.1000, L503.6005, L100.0100, L501.4021, L300.4310, L500.4050 #### [facility] [address] [place], [address] RDW CV Normal 11.6-14.6 [facility] Comment on above: Result Comment: Canc elled via OM: Order cancelled - Patient discharged Performed By: #### L 300.3900, M200.1000, L503.6005, L100.0100, L501.4021, L300.4310, L500.4050 #### [facility] [address] [place], [address] RDW SD Normal 35.1-43.9 [facility] Comment on above: Result Comment: Canc elled via OM: Order cancelled - Patient discharged Performed By: #### L 300.3900, M200.1000, L503.6005, L100.0100, L501.4021, L300.4310, L500.4050 #### [facility] [address] [place], [place], [id number] WBC Normal 4.4-11.0 [facility] Comment on above: Result Comment: Canc elled via OM: Order cancelled - Patient discharged Performed By: #### L 300.3900, M200.1000, L503.6005, L100.0100, L501.4021, L300.4310, L500.4050 #### [facility] [address] [place], [place], [id number] [phone], Blood (WB)on 2024 CUB Blood cultures x2, f rom two different sites No growth in 5 days. Normal [facility] Comment on above: Performed By: #### L 300.3900, M200.1000, L503.6005, L100.0100, L501.4021, L300.4310, L500.4050 ####[facility] [address] [place], [address] Anion gap in Serum or Plasma Ordered By: Troy Akins on 03-25-2025 Anion gap [Moles/Vol] 11 mmol/L 5-[address] [facility] BUN/creatinine ratioOrdered By: Troy Akins on 03-25-2025 Urea nitrogen/Creatinine [Mass ratio] 16.3 mg/mg - [facility] Basic Metabolic Profile (BMP )on 03-25-2025 BUN/CRE 16.3 RATIO Normal - [facility] Comment on above: Performed By: #### L 300.3900, M200.1000, L503.6005, L100.0100, L501.4021, L300.4310, L500.4050 #### [facility] [address] [place], [address] Calcium [Mass/Vol] 9.0 mg/dL Normal 7.6-11.0 [facility] Comment on above: Performed By: #### L 300.3900, M200.1000, L503.6005, L100.0100, L501.4021, L300.4310, L500.4050 #### [facility] [address] [place], [address] Chloride [Moles/Vol] 96 mmol/L Low 98-108 [facility] Comment on above: Performed By: #### L 300.3900, M200.1000, L503.6005, L100.0100, L501.4021, L300.4310, L500.4050 #### [facility] [address] [place], [address] CO2 [Moles/Vol] 29.4 mmol/L Normal 21.0-32.0 [facility] Comment on above: Performed By: #### L 300.3900, M200.1000, L503.6005, L100.0100, L501.4021, L300.4310, L500.4050 #### [facility] [address] [place], [address] Creatinine [Mass/Vol] 0.50 mg/dL Low 0.70-1.[address] [facility] Comment on above: Performed By: #### L 300.3900, M200.1000, L503.6005, L100.0100, L501.4021, L300.4310, L500.4050 #### [facility] [address] [place], [address] ECRCL 103.02 ml/min Normal 50-250 [facility] Comment on above: Performed By: #### L 300.3900, M200.1000, L503.6005, L100.0100, L501.4021, L300.4310, L500.4050 #### [facility] [address] [place], [address] GAP 11 Normal 5-15 [facility] Comment on above: Performed By: #### L 300.3900, M200.1000, L503.6005, L100.0100, L501.4021, L300.4310, L500.4050 #### [facility] [address] [place], [address] GFR/1.73 sq M.predicted among non-blacks MDRD (S/P/Bld) [Vol rate/Area] 106 mL/min/{1.73_m2} Normal >60 [facility] Comment on above: Result Comment: mL/m in/1.73m2 CKD-EPI Creatinine Equation (2020) Performed By: #### L 300.3900, M200.1000, L503.6005, L100.0100, L501.4021, L300.4310, L500.4050 #### [facility] [address] [place], [address] Glucose [Mass/Vol] 120 mg/dL High 70-99 [facility] Comment on above: Performed By: #### L 300.3900, M200.1000, L503.6005, L100.0100, L501.4021, L300.4310, L500.4050 #### [facility] [address] [place], [address] Potassium [Moles/Vol] 4.2 mmol/L Normal 3.3-5.[address] [facility] Comment on above: Performed By: #### L 300.3900, M200.1000, L503.6005, L100.0100, L501.4021, L300.4310, L500.4050 #### [facility] [address] [place], [address] Sodium [Moles/Vol] 137 mmol/L Normal 133-145 [facility] Comment on above: Performed By: #### L 300.3900, M200.1000, L503.6005, L100.0100, L501.4021, L300.4310, L500.4050 #### [facility] [address] [place], [address] Urea nitrogen [Mass/Vol] 8 mg/dL Normal 4-19 [facility] Comment on above: Performed By: #### L 300.3900, M200.1000, L503.6005, L100.0100, L501.4021, L300.4310, L500.4050 #### [facility] [address] [place], [address] Blood manual differential co mment interpretation (narrative result)Ordered By: Troy Akins on 03-25-2025 Manual differential comment Neal (Bld) [Interp] SCANNED [facility] Comment on above: 2+ ANISOCYTOSIS1+ PO LYCHROMASIA CBC-Complete Blood Cnt No Di ffon 03-25-2025 Erythrocyte distribution width (RBC) [Ratio] 23.9 % High 11.6-14.6 [facility] Comment on above: Performed By: #### L 300.3900, M200.1000, L503.6005, L100.0100, L501.4021, L300.4310, L500.4050 #### [facility] [address] [place], [address] Hematocrit (Bld) [Volume fraction] 33.2 % Low 37-47 [facility] Comment on above: Performed By: #### L 300.3900, M200.1000, L503.6005, L100.0100, L501.4021, L300.4310, L500.4050 #### [facility] [address] [place], [address] Hemoglobin (Bld) [Mass/Vol] 10.0 g/dL Low 12.0-15.0 [facility] Comment on above: Performed By: #### L 300.3900, M200.1000, L503.6005, L100.0100, L501.4021, L300.4310, L500.4050 #### [facility] [address] [place], [address] MCH (RBC) [Entitic mass] 23.4 pg Low 27.0-32.0 [facility] Comment on above: Performed By: #### L 300.3900, M200.1000, L503.6005, L100.0100, L501.4021, L300.4310, L500.4050 #### [facility] [address] [place], [address] MCHC (RBC) [Mass/Vol] 30.1 g/dL Low 32-[address] [facility] Comment on above: Performed By: #### L 300.3900, M200.1000, L503.6005, L100.0100, L501.4021, L300.4310, L500.4050 #### [facility] [address] [place], [address] MCV (RBC) [Entitic vol] 77.6 fL Low 81-99 [facility] Comment on above: Performed By: #### L 300.3900, M200.1000, L503.6005, L100.0100, L501.4021, L300.4310, L500.4050 #### [facility] [address] [place], [address] Platelet mean volume (Bld) [Entitic vol] 9.5 fL Normal 6.2-12.0 [facility] Comment on above: Performed By: #### L 300.3900, M200.1000, L503.6005, L100.0100, L501.4021, L300.4310, L500.4050 #### [facility] [address] [place], [address] Platelets (Bld) [#/Vol] 354 10*3/uL Normal 150-450 [facility] Comment on above: Performed By: #### L 300.3900, M200.1000, L503.6005, L100.0100, L501.4021, L300.4310, L500.4050 #### [facility] [address] [place], [address] RBC (Bld) [#/Vol] 4.28 10*6/uL Normal 4.2-5.4 [facility] Comment on above: Performed By: #### L 300.3900, M200.1000, L503.6005, L100.0100, L501.4021, L300.4310, L500.4050 #### [facility] [address] [place], [address] RDW SD 58.6 fl High 35.1-43.9 [facility] Comment on above: Performed By: #### L 300.3900, M200.1000, L503.6005, L100.0100, L501.4021, L300.4310, L500.4050 #### [facility] [address] [place], [address] WBC (Bld) [#/Vol] 11.3 10*3/uL High 4.4-11.0 [facility] Comment on above: Performed By: #### L 300.3900, M200.1000, L503.6005, L100.0100, L501.4021, L300.4310, L500.4050 #### [facility] [address] [place], [address] Carbon dioxide, total [Moles /volume] in Central venous bloodOrdered By: Troy Akins on 03-25-2025 CO2 [Moles/Vol] 29.4 mmol/L 21.0-32.0 [facility] Chloride assayOrdered By: Sam Akins on 03-25-2025 Chloride [Moles/Vol] 96 mmol/L Low 98-108 [facility] Differential Commenton 03-25 SMEAR COMMENT SCANNED Normal [facility] Comment on above: Result Comment: 2+ A NISOCYTOSIS 1+ POLYCHROMASIA Performed By: #### L 300.3900, M200.1000, L503.6005, L100.0100, L501.4021, L300.4310, L500.4050 #### [facility] [address] [place], [address] EGD Reporton 03-25-2025 EGD Report [facility] Medical Records Department [address] [place] [place] [address] EGD Report MR#: [id number] Acct: [id number] Name: AISHA HA Rep #: [id number] : 1965 60 From: Cal Bahena DO [...] angiodysplastic lesions Procedure Code(s): --- Professional --- 62052, Small intestinal endoscopy, enteroscopy beyond second portion of duodenum, not including ileum; with control of bleeding (eg, injection, bipolar cautery, unipolar cautery, laser, heater probe, stapler, plasma commercial mortgage broker) CPT copyright 2021 [employer]. All rights reserved. The codes documented in this report are preliminary and upon supervisor coremaker review may be revised to meet current compliance requirements. Cal Bahena DO 03/25/2025 4:12:45 PM This report has been signed electronically. Number of Addenda: 1 Note Initiated On: 03/25/2025 3:46 PM Addendum Number: 1 Addendum Date: 03/26/2025 10:35:09 AM The patient had a angiodysplastic lesion that was treated in the gastric body. This area was clipped with a [employer] End[employer] Clip. Cal Bahena DO 03/26/2025 10:35:38 AM This report has been signed electronically. 03/26/25 1035 Date Cal Uriostegui Signature: Date (if indicated) CC: Mónica Ramos (more content not included)... Normal [facility] Electrocardiogram reportOrde red By: Luiz Weber on 03-25-2025 EKG study [facility] Cardiovascular Services [address] [place] [address] 12 Lead EKG 03/23/25 0732 MR#: [id number] Acct: [id number] Name: AISHA HA Rep #:[id number] : 1965 60 From: Luiz conde MD Attending Dr: Dr. Troy Akins MD Status: ADM IN Ordering Dr: Troy Akins MD Date: Location: [facility] Sex: F C Admitted: 03/20/25 Test [...] DATA IS UNCONFIRMED Confirmed by Luiz Weber ([id number]), assistant production editor HELADIO MARIN ([id number]) on 03/25/2025 8:01:43 AM Referred By: Confirmed By: Luiz Weber 03/25/25 0801 Date _ Luiz Weber MD CC: Dr. Geovani Gay MD; Dr. Troy Akins MD ~ Signed [facility] Other Phone: Erythrocyte distribution wid th ratioOrdered By: Troy Akins on 03-25-2025 Erythrocyte distribution width (RBC) [Ratio] 23.9 % High 11.6-14.6 [facility] Erythrocyte distribution wid th standard deviationOrdered By: Troy Akins on 03-25-2025 Erythrocyte distribution width (RBC) [Ratio] 58.6 fl High 35.1-43.9 [facility] Glomerular filtration rate ( GFR) estimation/1.73 sq m using serum, plasma, or whole bOrdered By: Troy Akins on 03-25-2025 GFR/1.73 sq M.predicted among non-blacks MDRD (S/P/Bld) [Vol rate/Area] 106 mL/min/{1.73_m2} >60 [facility] Comment on above: mL/min/1.73m2 CKD-EP I Creatinine Equation (2021) Hematocrit Auto (Bld) [Volum e fraction]Ordered By: Troy Akins on 03-25-2025 Hematocrit (Bld) [Volume fraction] 33.2 % Low 37-47 [facility] Hemoglobin measurementOrdere d By: Troy Akins on 03-25-2025 Hemoglobin (Bld) [Mass/Vol] 10.0 g/dL Low 12.0-15.0 [facility] MCV (mean corpuscular volume ) determinationOrdered By: Troy Akins on 03-25-2025 MCV (RBC) [Entitic vol] 77.6 fL Low 81-99 [facility] MR/POSTOP.ANEon 03-25-2025 MR/POSTOP.ANE [facility] Medical Records Department [address] [place] [address] Anesthesia Postop Eval I 03/25/25 1614 MR#: [id number] Acct: [id number] Name: AISHA HA Emma Rep #: [id number] : 1965 60 From: Jef Herman CRNA PCP: Dr. Geovani Gay MD Status:ADM IN Y Race: C Location: [place] [address] Anesthesia: Postop Eval I Current Vital Signs [...] CRNA Cosigner Signature: Date CC: Signed Normal [facility] [id number] 03-25-2025 MR/POSTOPAN2 [facility] Medical Records Department [address] [place] [place] [address] Anesthesia Postop Eval II 03/25/25 1617 MR#: [id number] Acct: [id number] Name: AISHA HA Rep #: [id number] : 1965 60 From: Jef Herman WIRE TEMPERER PCP: Dr. Geovani Gay MD Status:ADM IN Y Race: C Location: [place] [address] Anesthesia Postop Eval I Sum Postop Eval Completion status Anesthesia document: Postop Eval 1 completed: Yes Anesthesia Postop Eval I Summary Anesthesia Postop Eval I Summary: Anesthesia Postop Eval I: Assessment Summary Airway patent Yes 03/25/25 16:15 WIRE [email or web address].MDOT Spontaneous unlabored Yes 03/25/25 16:15 WIRE TEMPERER.MDOT respirations Mental status Awake,Calm 03/25/25 16:15 W[employer] TEMPERER.MDOT nausea No 03/25/25 16:15 WIRE TEMPERER.MDOT Vomiting No 03/25/25 16:15 WIRE TEMPERER.MDOT Anesthesia Postop Eval I: Fluid Summary Crystalloid volume administer 300 03/25/25 16:15 WIRE TEMPERER.MDOT (ml) Colloids volume administered ( ml) Blood Product volume administered (ml) Total IV fluid infused 300 03/25/25 16:15 WIRE TEMPERER.MDOT Anesthesia Postop Eval I: Summary Notes Anesthesia Complication No 03/25/25 16:15 WIRE TEMPERER.MDOT Anesthesia Complication Comment: Post-operative progress note Anesthesia: Postop Eval II Evaluation Mental status: Awake and Calm Pain Level: 0 nausea: No Vomiting: No Complications Anesthesia Complication: No 03/25/25 1617 Date Jef Herman WIRE TEMPERER Cosigner Signature: Date CC: Signed Normal [facility] Magnesiumon 03-25-2025 Magnesium [Mass/Vol] 1.5 mg/dL Normal 1.5-2.2 [facility] Comment on above: Performed By: #### L 300.3900, M200.1000, L503.6005, L100.0100, L501.4021, L300.4310, L500.4050 #### [facility] [address] [place], [address] Magnesium measurement (mass/ volume)Ordered By: Troy Akins on 03-25-2025 Magnesium (Unsp spec) [Mass/Vol] 1.5 mg/dL 1.5-2.2 [facility] Mean corpuscular hemoglobin (MCH) determinationOrdered By: Troy Akins on 03-25-2025 MCH (RBC) [Entitic mass] 23.4 pg Low 27.0-32.0 [facility] Mean corpuscular hemoglobin concentration (MCHC) determinationOrdered By: Troy Akins on 03-25-2025 MCHC (RBC) [Mass/Vol] 30.1 g/dL Low 32-[address] [facility] Mean platelet volume determi nationOrdered By: Troy Akins on 03-25-2025 Platelet mean volume (Bld) [Entitic vol] 9.5 fL 6.2-12.0 [facility] Phosphoruson 03-25-2025 Phosphate [Mass/Vol] 3.3 mg/dL Normal 2.7-4.5 [facility] Comment on above: Performed By: #### L 300.3900, M200.1000, L503.6005, L100.0100, L501.4021, L300.4310, L500.4050 #### [facility] [address] [place], [address] Platelet countOrdered By: Sam Akins on 03-25-2025 Platelets (Bld) [#/Vol] 354 10*3/uL 150-450 [facility] Potassium measurement (mass/ volume)Ordered By: Troy Akins on 03-25-2025 Potassium (Unsp spec) [Mass/Vol] 4.2 mmol/L 3.3-5.1 [facility] RBC Auto (Bld) [#/Vol]Ordere d By: Troy Akins on 03-25-2025 RBC (Bld) [#/Vol] 4.28 10*6/uL 4.2-5.4 [facility] Serum creatinine measurement (mass/volume)Ordered By: Troy Akins on 03-25-2025 Creatinine [Mass/Vol] 0.50 mg/dL Low 0.70-1.[address] [facility] Serum glucose measurement (m ass/volume)Ordered By: Troy Akins on 03-25-2025 Glucose [Mass/Vol] 120 mg/dL High 70-99 [facility] Serum or plasma calcium ceasar urement (mass/volume)Ordered By: Troy Akins on 03-25-2025 Calcium [Mass/Vol] 9.0 mg/dL 7.6-11.0 [facility] Serum or plasma urea nitroge n measurement (mass/volume)Ordered By: Troy Akins on 03-25-2025 Urea nitrogen [Mass/Vol] 8 mg/dL 4-19 [facility] Sodium levelOrdered By: Michel Akins on 03-25-2025 Sodium [Moles/Vol] 137 mmol/L 133-145 [facility] White blood cell (WBC) count Ordered By: Troy Akins on 03-25-2025 WBC (Bld) [#/Vol] 11.3 10*3/uL High 4.4-11.0 [facility] Absolute lymphocyte countOrd ered By: Troy Akins on 03-24-2025 Lymphocytes Auto (Unsp spec) [#/Vol] 2.41 10*3/uL 0.83-4.51 [facility] Absolute neutrophil countOrd ered By: Troy Akins on 03-24-2025 Neutrophils (Bld) [#/Vol] 7.3 10*3/uL 2.0-7.7 [facility] Automated lymphocyte count a s percentage of total leukocytesOrdered By: Troy Akins on 03-24-2025 Lymphocytes/100 WBC Auto (Unsp spec) 22.9 % 19-41 [facility] Basic Metabolic Profile (BMP )on 03-24-2025 BUN/CRE 16.0 RATIO Normal 10-20 [facility] Comment on above: Performed By: #### L 100.0100, L500.2500 ####[facility] [address] [place], [address] Calcium [Mass/Vol] 9.0 mg/dL Normal 7.6-11.0 [facility] Comment on above: Performed By: #### L 100.0100, L500.2500 ####[facility] [address] [place], [address] Chloride [Moles/Vol] 97 mmol/L Low 98-108 [facility] Comment on above: Performed By: #### L 100.0100, L500.2500 ####[facility] [address] [place], [address] CO2 [Moles/Vol] 30.1 mmol/L Normal 21.0-32.0 [facility] Comment on above: Performed By: #### L 100.0100, L500.2500 ####[facility] [address] [place], [address] Creatinine [Mass/Vol] 0.46 mg/dL Low 0.70-1.[address] [facility] Comment on above: Performed By: #### L 100.0100, L500.2500 ####[facility] [address] [place], [address] ECRCL 111.98 ml/min Normal 50-250 [facility] Comment on above: Performed By: #### L 100.0100, L500.2500 ####[facility] [address] [place], [address] GAP 11 Normal 5-15 [facility] Comment on above: Performed By: #### L 100.0100, L500.2500 ####[facility] [address] [place], [address] GFR/1.73 sq M.predicted among non-blacks MDRD (S/P/Bld) [Vol rate/Area] 108 mL/min/{1.73_m2} Normal >60 [facility] Comment on above: Result Comment: mL/m in/1.73m2 CKD-EPI Creatinine Equation (2020) Performed By: #### L 100.0100, L500.2500 ####[facility] [address] [place], [address] Glucose [Mass/Vol] 100 mg/dL High 70-99 [facility] Comment on above: Performed By: #### L 100.0100, L500.2500 ####[facility] [address] [place], [address] Potassium [Moles/Vol] 4.3 mmol/L Normal 3.3-5.[address] [facility] Comment on above: Performed By: #### L 100.0100, L500.2500 ####[facility] [address] [place], [place], [address] Sodium [Moles/Vol] 138 mmol/L Normal 133-145 [facility] Comment on above: Performed By: #### L 100.0100, L500.2500 ####[facility] [address] [place], [address] Urea nitrogen [Mass/Vol] 7 mg/dL Normal 4-19 [facility] Comment on above: Performed By: #### L 100.0100, L500.2500 ####[facility] [address] [place], [address] Basophil percentageOrdered B y: Troy Akins on 03-24-2025 Basophils/100 WBC (Bld) 0.1 % 0-1 [facility] Blood polychromasia detectio n by light microscopyOrdered By: Troy Akins on 03-24-2025 Polychromasia LM Ql (Bld) 1+ [facility] Blood schistocyte detection by light microscopyOrdered By: Troy Akins on 03-24-2025 Schistocytes LM Ql (Bld) RARE [facility] CBC W/Diff, Automatedon Anisocytosis Ql (Bld) 2+ Normal [facility] Comment on above: Performed By: #### L 100.0100, L500.2500 ####[facility] [address] [place], [address] HYPOCHROMASIA 1+ Normal [facility] Comment on above: Performed By: #### L 100.0100, L500.2500 ####[facility] [address] [place], [address] MICROCYTIC 1+ Normal [facility] Comment on above: Performed By: #### L 100.0100, L500.2500 ####[facility] [address] [place], [address] OVALOCYTE 1+ Normal [facility] Comment on above: Performed By: #### L 100.0100, L500.2500 ####[facility] [address] [place], [address] PLT EST ADEQUATE Normal ADEQ [facility] Comment on above: Performed By: #### L 100.0100, L500.2500 ####[facility] [address] [place], [address] POLYCHROMASIA 1+ Normal [facility] Comment on above: Performed By: #### L 100.0100, L500.2500 ####[facility] [address] [place], [address] SCHISTOCYTES RARE Normal [facility] Comment on above: Performed By: #### L 100.0100, L500.2500 ####[facility] [address] [place], [address] SMEAR COMMENT SCANNED Normal [facility] Comment on above: Performed By: #### L 100.0100, L500.2500 ####[facility] [address] [place], [address] TARGET CELLS 1+ Normal [facility] Comment on above: Performed By: #### L 100.0100, L500.2500 ####[facility] [address] [place], [address] TEAR DROP RARE Normal [facility] Comment on above: Performed By: #### L 100.0100, L500.2500 ####[facility] [address] [place], [address] Electrocardiogram reportOrde red By: Luiz Weber on 03-24-2025 EKG study [facility] Cardiovascular Services [address] [place] [address] 12 Lead EKG 03/20/25 1719 MR#: [id number] Acct: [id number] Name: AISHA HA Rep #:[id number] : 1965 60 From: Luiz conde MD Attending Dr: Dr. Troy Akins MD Status: ADM IN Ordering Dr: Bradley Pichardo DO Date: Location: [facility] Sex: F C Admitted: 03/20/25 Test [...] ischemia Abnormal ECG Confirmed by Luiz Weber ([id number]), assistant production editor HELADIO MARIN ([id number]) on 03/24/2025 10:40:48 AM Referred By: SELINA/VIVEK Confirmed By: Luiz Weber 03/24/25 1040 Date _ Luiz Weber MD CC: Dr. Geovani Gay MD; Dr. Troy Akins MD; Dr. Bradley Pichardo, DO ~ Signed [facility] Other Phone: Eosinophil percentageOrdered By: Troy Akins on 03-24-2025 Eosinophils/100 WBC (Bld) 0.1 % 0-5 [facility] Hypochromatic red blood cell detectionOrdered By: Troy Akins on 03-24-2025 Hypochromia Ql (Bld) 1+ [facility] Immature granulocytes/100 WB C Auto (Bld)Ordered By: Troy Akins on 03-24-2025 Immature granulocytes/100 WBC (Bld) 0.800 % 0.0-0.9 [facility] Comment on above: IG% - Immature Granu locytes (promyelocytes, myelocytes and metamyelocytes) > 1% indicates that a LEFT SHIFT is Present. Laboratory - Hematology and Cell countsOrdered By: Troy Akins on 03-24-2025 Anisocytosis Ql (Bld) 2+ [facility] MR/CON.PCM.GIon 03-24-2025 MR/CON.PCM.GI [facility] Medical Records Department [address] [place] [address] Consultation - GI 03/24/25 1913 MR#: [id number] Acct: [id number] Name: AISHA HA Rep #: [id number] : 1965 60 From: Cal Bahena DO PCP: Dr. Geovani Gay MD Status:ADM IN Location: [place] [address] HPI Consult Data Date of Consult: 03/24/25 [...] liver, which may represent fibrosis/cirrhosis. [facility] Medical History (Updated 03/24/25 @ 19:17 by [...] Verified 03/20 (more content not included)... Normal [facility] Monocyte percentageOrdered B y: Troy Akins on 03-24-2025 Monocytes/100 WBC (Bld) 6.5 % 0-10 [facility] Neutrophil percentageOrdered By: Troy Akins on 03-24-2025 Neutrophils/100 WBC (Bld) 69.6 % 47-70 [facility] Nucleated red blood cell per centageOrdered By: Troy Akins on 03-24-2025 Nucleated RBC/100 WBC (Bld) [Ratio] 0.2 % 0-5 [facility] Ovalocyte detectionOrdered B y: Troy Akins on 03-24-2025 Ovalocytes LM Ql (Bld) 1+ [facility] Platelet estimateOrdered By: Troy Akins on 03-24-2025 Platelets LM Ql (Bld) ADEQUATE ADEQ [facility] Target cell detectionOrdered By: Troy Akins on 03-24-2025 Target cells LM Ql (Bld) 1+ [facility] Teardrop cell detectionOrder ed By: Troy Akins on 03-24-2025 Dacrocytes LM Ql (Bld) RARE [facility] 12 Lead EKGon 03-23-2025 12 Lead EKG [facility] Cardiovascular Services [address] [place] [address] 12 Lead EKG 03/23/25 0732 MR#: [id number] Acct: [id number] Name: AISHA HA Rep #: [id number] : 1965 60 From: Luiz Weber MD Attending Dr: Dr. Troy Akins MD Status: ADM IN Ordering Dr: Troy Akins MD Date: 03/23/25 Location: [facility] Sex: F C Admitted: 03/20/25 Test [...] IS UNCONFIRMED Confirmed by Luiz Weber ([id number]), assistant production editor HELADIO MARIN ([id number]) on 03/25/2025 8:01:43 AM Referred By: Confirmed By: Luiz Weber 03/25/25 0801 Date Luiz Weber MD CC: Dr. Geovani Gay MD; Dr. Troy Akins MD Signed Normal [facility] Basic Metabolic Profile (BMP )on 03-23-2025 BUN/CRE 10.7 RATIO Normal 10-20 [facility] Comment on above: Performed By: #### L 500.2500, L100.0100 ####[facility] [address] [place], [address] Calcium [Mass/Vol] 8.8 mg/dL Normal 7.6-11.0 [facility] Comment on above: Performed By: #### L 500.2500, L100.0100 ####[facility] [address] [place], [address] Chloride [Moles/Vol] 100 mmol/L Normal 98-108 [facility] Comment on above: Performed By: #### L 500.2500, L100.0100 ####[facility] [address] [place], [address] CO2 [Moles/Vol] 30.0 mmol/L Normal 21.0-32.0 [facility] Comment on above: Performed By: #### L 500.2500, L100.0100 ####[facility] [address] [place], [address] Creatinine [Mass/Vol] 0.40 mg/dL Low 0.70-1.[address] [facility] Comment on above: Performed By: #### L 500.2500, L100.0100 ####[facility] [address] [place], [address] ECRCL 128.78 ml/min Normal 50-250 [facility] Comment on above: Performed By: #### L 500.2500, L100.0100 ####[facility] [address] [place], [address] GAP 11 Normal 5-15 [facility] Comment on above: Performed By: #### L 500.2500, L100.0100 ####[facility] [address] [place], [address] GFR/1.73 sq M.predicted among non-blacks MDRD (S/P/Bld) [Vol rate/Area] 112 mL/min/{1.73_m2} Normal >60 [facility] Comment on above: Result Comment: mL/m in/1.73m2 CKD-EPI Creatinine Equation (2020) Performed By: #### L 500.2500, L100.0100 ####[facility] [address] [place], [address] Glucose [Mass/Vol] 108 mg/dL High 70-99 [facility] Comment on above: Performed By: #### L 500.2500, L100.0100 ####[facility] [address] [place], [address] Potassium [Moles/Vol] 3.8 mmol/L Normal 3.3-5.[address] [facility] Comment on above: Performed By: #### L 500.2500, L100.0100 ####[facility] [address] [place], [address] Sodium [Moles/Vol] 140 mmol/L Normal 133-145 [facility] Comment on above: Performed By: #### L 500.2500, L100.0100 ####[facility] [address] [place], [address] Urea nitrogen [Mass/Vol] 4 mg/dL Normal 4-19 [facility] Comment on above: Performed By: #### L 500.2500, L100.0100 ####[facility] [address] [place], [address] CBC W/Diff, Automatedon 06-0 SMEAR COMMENT SCANNED Normal [facility] Comment on above: Performed By: #### L 500.2500, L100.0100 ####[facility] [address] [place], [address] Anisocytosis Ql (Bld) 2+ Normal [facility] Comment on above: Performed By: #### L 500.2500, L100.0100 ####[facility] [address] [place], [address] MICROCYTIC 2+ Normal [facility] Comment on above: Performed By: #### L 500.2500, L100.0100 ####[facility] [address] [place], [address] POLYCHROMASIA RARE Normal [facility] Comment on above: Performed By: #### L 500.2500, L100.0100 ####[facility] [address] [place], [address] CTA Chest W/WO Contraston CTA Chest W/WO Contrast [facility] Imaging Services [address] [place] [address] CTA Chest W/WO Contrast MR#: [id number] Acct: [id number] Name: AISHA HA Rep #: [id number] : 1965 F 60 From: Irma Lopez nd, MD PCP: Dr. Geovani Gay MD Status: ADM IN Study: CTA Chest W/WO Contrast Date of Exam: 03/23/25 Exam# [id number] Ordering Dr: Troy Akins MD PROCEDURE: CTA [...] liver, which may represent fibrosis/cirrhosis. Reading Location: LIT-PDOVRDNI-GK CC: Dr. Geovani Gay MD; Dr. Troy Akins MD Sterile Processing Technician: Signed Normal [facility] D-Dimer Quantitative (DVT/PE )on 03-23-2025 D-DIMER QUANT 2.69 FEU/ug/m Invalid Interpretation Code 0.27-0.49 [facility] Comment on above: Result Comment: D-Di batsheva ELEVATED (>0.49): Additional studies and clinical assessments are indicated to conclude diagnosis of: Deep Vein Thrombosis (DVT) or Pulmonary Embolism (PE) CRITICAL VALUE CALLED TO [facility] 03/23/25 0978 Lillian Duong. RESULTS READ BACK BY SAME. Performed By: #### L 300.8000 ####[facility] [address] [place], [address] Respiratory Cultureon 2024 RESPC List Antibiotics Las t 48 Hours? levaquin No Streptococcus pneumoniae, beta-hemolytic Streptococcus or Staphylococcus aureus isolated. Presumptive C albicans Amount Growth 3+ Normal [facility] Comment on above: Performed By: #### L 363.5200 #### [facility] Laboratory [address] [place], [place], [address] Urine Cultureon 03-23-2025 [facility] Urine Culture Copy of report sent to Infection Control Printer [id number] 03/23/25 1315 ASNIPES. Meth. resistant Staph. aureus Linden Count <1000 mecA Testing not performed MIXGP Linden Count 11,000-25,000 Mixed Gram Positive Organisms cefOXitin Susc Islt Doxycycline Islt NAHOMI 8 I Clindamycin.induced Susc Islt Gentamicin Islt NAHOMI <=0.5 S Linezolid Islt NAHOMI 2 S Moxifloxacin Islt NAHOMI >=8 R Nitrofurantoin Islt NAHOMI <=16 S Oxacillin Susc Islt >=4 R Tetracycline Islt NAHOMI >=16 R TMP SMX Islt NAHOMI >=320 R Vancomycin Islt NAHOMI <=0.5 S Normal [facility] Comment on above: Performed By: #### L 650.5200 #### [facility] [address] [facility] [address] [place], [place], [address] Basic Metabolic Profile (BMP )on 03-22-2025 BUN/CRE 11.2 RATIO Normal 10-20 [facility] Comment on above: Performed By: #### L 673.5200 #### [facility] [address], [address] Calcium [Mass/Vol] 8.4 mg/dL Normal 7.6-11.0 [facility] Comment on above: Performed By: #### L 970.5200 #### [facility] [address] [place], [address] Chloride [Moles/Vol] 98 mmol/L Normal 98-108 [facility] Comment on above: Performed By: #### L 559.5200 #### [facility] [address] [place], [address] CO2 [Moles/Vol] 26.8 mmol/L Normal 21.0-32.0 [facility] Comment on above: Performed By: #### L 200.5200 #### [facility] [address] [place], [address] Creatinine [Mass/Vol] 0.40 mg/dL Low 0.70-1.[address] [facility] Comment on above: Performed By: #### L 501.5200 #### [facility] [address] [place], [address] ECRCL 128.78 ml/min Normal 50-250 [facility] Comment on above: Performed By: #### L 942.5200 #### [facility] [address] [place], [address] GAP 11 Normal 5-15 [facility] Comment on above: Performed By: #### L 809.5200 #### [facility] [address] [place], [address] GFR/1.73 sq M.predicted among non-blacks MDRD (S/P/Bld) [Vol rate/Area] 112 mL/min/{1.73_m2} Normal >60 [facility] Comment on above: Result Comment: mL/m in/1.73m2 CKD-EPI Creatinine Equation (2020) Performed By: #### L 680.5200 #### [facility] [address] [place], [address] Glucose [Mass/Vol] 105 mg/dL High 70-99 [facility] Comment on above: Performed By: #### L 700.5200 #### [facility] [address] [place], [address] Potassium [Moles/Vol] 3.2 mmol/L Low 3.3-5.[address] [facility] Comment on above: Performed By: #### L 123.5200 #### [facility] [address] [place], [address] Sodium [Moles/Vol] 136 mmol/L Normal 133-145 [facility] Comment on above: Performed By: #### L 501.5200 #### [facility] [address] [place], [address] Urea nitrogen [Mass/Vol] 4 mg/dL Normal 4-19 [facility] Comment on above: Performed By: #### L 501.5200 #### [facility] [address] [place], [address] CBC W/Diff, Automatedon 05-3 Anisocytosis Ql (Bld) 2+ Normal [facility] Comment on above: Performed By: #### L 501.0 #### [facility] [address] [place], [address] POLYCHROMASIA RARE Normal [facility] Comment on above: Performed By: #### L 501.5200 #### [facility] [address] [place], [address] SMEAR COMMENT SCANNED Normal [facility] Comment on above: Performed By: #### L 501.5200 #### [facility] [address] [place], [address] Magnesiumon 03-22-2025 Magnesium [Mass/Vol] 2.1 mg/dL Normal 1.5-2.2 [facility] Comment on above: Performed By: #### L 501.5200 #### [facility] [address] [place], [address] Phosphoruson 03-22-2025 Phosphate [Mass/Vol] 2.8 mg/dL Normal 2.7-4.5 [facility] Comment on above: Performed By: #### L 501.5200 #### [facility] [address] [place], [address] 36on 03-21-2025 36 Noted. Agree with recommendations. Normal [facility] Antigen K (GIOVANNI) Series 2on 03-21-2025 ANTIGEN ID Normal [facility] Comment on above: Result Comment: NEGA TIVE NEGATIVE Performed By: #### B MARIANA, BTS, [id number], BAGK ####[facility] [address] [place], [address] [id number] 03-21-2025 ANTIBODY ID M Normal [facility] Comment on above: Order Comment: CMV N EG? NNumber of units to transfuse: 1Is pt's Hgb is = to 7.0 mg/dl or Hct </= 21%? YReason for Ordering Blood: ChronicAre the blood/blood products to be transfused? YIs the patient having/had surgery? NNWhen ReadyNYA Performed By: #### B MARIANA, BTS, [id number], BAGK ####[facility] [address] [place], [address] BRCon 03-21-2025 RC Normal [facility] Comment on above: Result Comment: [id number] BN RC NOT AVAILABLE [id number] BN RC TRANSFUSED 03/21/252135 Performed By: #### B MARIANA, BTS, [id number], BAGK ####[facility] [address] [place], [address] Basic Metabolic Profile (BMP )on 03-21-2025 BUN/CRE 16.2 RATIO Normal 10-20 [facility] Comment on above: Performed By: #### L 503.5510 #### [facility] [address] [place], [address] Calcium [Mass/Vol] 7.9 mg/dL Normal 7.6-11.0 [facility] Comment on above: Performed By: #### L 503.5510 #### [facility] [address] [place] [place], [address] Chloride [Moles/Vol] 90 mmol/L Low 98-108 [facility] Comment on above: Performed By: #### L 503.5510 #### [facility] [address] [place], [address] CO2 [Moles/Vol] 28.8 mmol/L Normal 21.0-32.0 [facility] Comment on above: Performed By: #### L 503.5510 #### [facility] [address] [place], [address] Creatinine [Mass/Vol] 0.51 mg/dL Low 0.70-1.[address] [facility] Comment on above: Performed By: #### L 503.5510 #### [facility] [address] [place], [address] ECRCL 101.00 ml/min Normal 50-250 [facility] Comment on above: Performed By: #### L 503.5510 #### [facility] [address] [place], [address] GAP 12 Normal 5-15 [facility] Comment on above: Performed By: #### L 503.5510 #### [facility] [address] [place], [address] GFR/1.73 sq M.predicted among non-blacks MDRD (S/P/Bld) [Vol rate/Area] 105 mL/min/{1.73_m2} Normal >60 [facility] Comment on above: Result Comment: mL/m in/1.73m2 CKD-EPI Creatinine Equation (2020) Performed By: #### L 503.5510 #### [facility] [address] [place], [address] Glucose [Mass/Vol] 90 mg/dL Normal 70-99 [facility] Comment on above: Performed By: #### L 503.5510 #### [facility] [address] [place], [address] Potassium [Moles/Vol] 2.8 mmol/L Low 3.3-5.[address] [facility] Comment on above: Performed By: #### L 503.5510 #### [facility] [address] [place], [address] Sodium [Moles/Vol] 131 mmol/L Low 133-145 [facility] Comment on above: Performed By: #### L 503.5510 #### [facility] [address] [place], [address] Urea nitrogen [Mass/Vol] 8 mg/dL Normal 4-19 [facility] Comment on above: Performed By: #### L 503.5510 #### [facility] [address] [place], [address] CBC W/Diff, Automatedon 05- PLT EST A Normal ADEQ [facility] Comment on above: Performed By: #### L 503.5510 #### [facility] [address] [place], [address] Anisocytosis Ql (Bld) 1+ Normal [facility] Comment on above: Performed By: #### L 503.5510 #### [facility] [address] [place], [address] POLYCHROMASIA 1+ Normal [facility] Comment on above: Performed By: #### L 503.5510 #### [facility] [address] [place], [address] Gram Stainon 03-21-2025 List Antibiotics Las t 48 Hours? levaquin Acceptable Specimen? Yes (<25 Epithelial cells per/lpf) Gram Stain 3+ White Blood Cells 1+ Yeast Like Organisms 1+ Gram positive rods No Epithelial cells Normal [facility] Comment on above: Performed By: #### L 529.5200 #### [facility] [address] [place], [address] Gram stainOrdered By: Rayna oDuglas on 03-21-2025 Microscopic observation Gram stain Nom (Unsp spec) [facility] Lactic Acidon 03-21-2025 Lactate [Moles/Vol] 3.5 mmol/L Invalid Interpretation Code 0.0-2.0 [facility] Comment on above: Result Comment: Crit ical Result(s) Called to: Teo HERNANDEZ ([facility]) by: Patricia??Results read back by same. Performed By: #### L 300.3900, M200.1000, L503.6005, L100.0100, L501.4021, L300.4310, L500.4050 #### [facility] [address] [place], [address] Lactate [Moles/Vol] 2.5 mmol/L Invalid Interpretation Code 0.0-2.0 [facility] Comment on above: Order Comment: Y Result Comment: Crit ical Result(s) Called at 1352: by: RUPERTO FAIRBANKS TO YUN. ??Results read back by same. Performed By: #### L 501.5200 #### [facility] [address] [place], [address] Lactate [Moles/Vol] 3.8 mmol/L Invalid Interpretation Code 0.0-2.0 [facility] Comment on above: Result Comment: Crit ical Result(s) Called at:03/21/2025-00:50 by: Dolores Wilcox.??Results read back by same. Performed By: #### L 300.3900, M200.1000, L503.6005, L100.0100, L501.4021, L300.4310, L500.4050 #### [facility] [address] [place], [address] Lactic acid measurementOrder ed By: Troy Akins on 03-21-2025 Lactate [Moles/Vol] 3.5 mmol/L Critically high 0.0-2.0 [facility] Comment on above: Critical Result(s) C alled to: Teo HERNANDEZ (U) by: Patricia Results read back by same. Legionella Antigen Urineon 0 03-21-2025 LEGU Legionella Antigen result interpretation: L pneumo Ag Ur Ql Negative Presumptive negative for Legionella pneumophila serogroup 1 antigen in urine, suggesting no recent or current infection. Legionella Ag, Urine Negative (See interpretation below) Normal [facility] Comment on above: Performed By: #### M 300.4600, M300.4500 ####[facility] [address] [place], [place], [address] Magnesiumon 03-21-2025 Magnesium [Mass/Vol] 2.2 mg/dL Normal 1.5-2.2 [facility] Comment on above: Performed By: #### L 503.5580 #### [facility] [address] [place], [address] Microbial respiratory cultur eOrdered By: Jose Douglas on 03-21-2025 Microorganism identified Cx Nom (Unsp spec) Presumptive C albicans Abnormal [facility] Strep pneumoniae Antig(UR,CS F)on 03-21-2025 STPAG URINE INTERPRETATION Positive Urine Positive for pneumococcal pneumonia. Strep pneumo Test Urine POSITIVE for pneumococcal pneumonia.A Streptococcus pneumonia Ag Normal [facility] Comment on above: Performed By: #### M 300.4600, M300.4500 ####[facility] [address] [place], [place], [id number] Type AND Screenon 03-21-2025 Ab SCREEN GEL Positive Normal [facility] Comment on above: Order Comment: CMV N EG? NNumber of units to transfuse: 1Is pt's Hgb is = to 7.0 mg/dl or Hct </= 21%? YReason for Ordering Blood: ChronicAre the blood/blood products to be transfused? YIs the patient having/had surgery? NWkatya Cordova Performed By: #### B RC, BTS, [id number], BAGK ####[facility] [address] [place], [address] 12 Lead EKGon 03-20-2025 12 Lead EKG [facility] Cardiovascular Services [address] [place] [address] 12 Lead EKG 03/20/25 1719 MR#: [id number] Acct: [id number] Name: AISHA HA Rep #: [id number] : 1965 60 From: Luiz Weber MD Attending Dr: Dr. Troy Akins MD Status: ADM IN Ordering Dr: Bradley Pichardo DO Date: 03/20/25 Location: [facility] Sex: F C Admitted: 03/20/25 Test [...] ischemia Abnormal ECG Confirmed by Luiz Weber ([id number]), assistant production editor HELADIO MARIN ([id number]) on 03/24/2025 10:40:48 AM Referred By: SELINA/VIVEK Confirmed By: Luiz Weber 03/24/25 1040 Date Luiz Weber MD CC: Dr. Geovani Gay MD; Dr. Troy Akins MD; Dr. Bradley Pichardo DO Signed Normal [facility] 36on 03-20-2025 36 S: [...] adult drive. Will plan to report to [place] ED. Advised to have her use albuterol and/or Duo neb as ordered IGNACIA. Patient instructed to call back with new or worsening symptoms. Patient understands care advice. Reason for Disposition MODERATE difficulty breathing (e.g., speaks in phrases, SOB even at rest, pulse 100-120) of new-onset or worse than normal Protocols used: Breathing Agdzsdnfaj-OXYMT-PM Normal [facility] Absolute lymphocyte countOrd ered By: Bradley Pichardo on 03-20-2025 Lymphocytes Auto (Unsp spec) [#/Vol] 2.10 10*3/uL 0.83-4.51 [facility] Absolute neutrophil countOrd ered By: Bradley Pichardo on 03-20-2025 Neutrophils (Bld) [#/Vol] 16.4 10*3/uL High 2.0-7.7 [facility] Activated partial thrombopla stin time (aPTT) in platelet poor plasma by coagulation aOrdered By: Bradley Pichardo on 03-20-2025 aPTT Coag (PPP) [Time] 42.5 s High 24.1-36.2 [facility] Ammoniaon 03-20-2025 Ammonia (P) [Moles/Vol] 32.4 umol/L Normal - [facility] Comment on above: Performed By: #### L 503.5510 #### [facility] Laboratory [address] [place], [place], [id number] Anion gap in Serum or Plasma Ordered By: Bradley Pichardo on 03-20-2025 Anion gap [Moles/Vol] 14 mmol/L 5-[address] [facility] Assessment of wrist artery p atency prior to arterial punctureOrdered By: Bradley Pichardo on 03-20-2025 Arterial patency Wrist artery --pre arterial puncture Positive [facility] Automated lymphocyte count a s percentage of total leukocytesOrdered By: Bradley Pichardo on 03-20-2025 Lymphocytes/100 WBC Auto (Unsp spec) 10.4 % Low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 White blood cell countOrdere d By: Bradley Pichardo on 03-20-2025 White blood cell count 0 SEEN /hpf 0-5 [facility] Office Visiton 03-04-2025 Follow-up visit [id number] Aisha Ha 1965 F Date Provider Department Center 03/04/2025 [id number] GAYRASHELOneida FELIX [facility] Family History Problem Relation Age of Onset Heart attack Mother Arthritis Mother High Blood Pressure Mother Depression Mother Cervical cancer Mother 30 Substance Abuse Father Arthritis Father High Blood Pressure Father Diabetes Father Family Status - Relation Status Age at Mother Father Level of Service:77658 MS OFFICE/OUTPATIENT ESTABLISHED MOD MDM 30 MIN Reason for Visit and Comments: COPD [313] Hyperlipidemia [182] Hypertension [292336] Vitamin D Deficiency [413] Seizures [97] Cirrhosis [239] Chronic Kidney Disease [176] Abnormal Sodium [590] Urinary Incontinence [349] Medication Check [9262530662] - 6 month Normal [facility] [...] [facility] 02-18-2025 Follow-up visit [id number] Aisha Ha 1965 [facility] Provider Department [place] 02/18/2025 [id number] MIJARES [facility] Family History Problem Relation Age of Onset Heart attack Mother Arthritis Mother High Blood Pressure Mother Depression Mother Cervical cancer Mother 30 Substance Abuse Father Arthritis Father High Blood Pressure Father Diabetes Father Family Status - Relation Status Age at Mother Father Level of Service:17213 MS OFFICE/OUTPATIENT ESTABLISHED [facility] 10 MIN Reason for Visit and Comments: Other [0] - Tongue is very painful for about a week Shortness of Breath [378942] - Worse this morning Cough [28] Normal [...] 02-17-2025 36 S: Patient spoke wit h [facility] nurse regarding tongue symptoms B: Onset of [...] present > 3 days Protocols used: Mouth Dachxuuc-JLFZH-BZ, Mouth Qeeq-JOJIR-HL Normal [facility] Office Visiton 02-06-2025 Follow-up visit [id number] Aisha Ha 1965 F Date Provider Department Center 02/06/2025 [id number] GAY [facility] Family History Problem Relation Age of Onset Heart attack Mother Arthritis Mother High Blood Pressure Mother Depression Mother Cervical cancer Mother 30 Substance Abuse Father Arthritis Father High Blood Pressure Father Diabetes Father Family Status - Relation Status Age at Mother Father Level of Service:99093 MS OFFICE/OUTPATIENT ESTABLISHED MOD MDM 30 MIN Reason for Visit and Comments: Supplies [707] - Need face to face visit to order incontinence supplies Orders [239] - Need script for parking placard [facility] Progress Noteon 02-06-2025 Progress Note Stable, fill out paperwork for incontinence supplies. [facility] Progress Note Stable, continue tramadol as needed. [facility] Progress Note Active, we will fill out paperwork that she can get incontinence supplies through her insurance. [facility] Progress Note Currently stable, continue albuterol, Incruse 1 puff daily and nebulizer with DuoNeb solution as needed. Continue oxygen at current level. [facility] Progress Note 02/06/2025 Aisha Ha (: 1965) [...] note. Geovani Gay MD 02/06/2025 3:41 PM [facility] Progress Note Patient verified by last name and date of . [facility] 36on 01-28-2025 36 Prescription sent fo r nystatin swish and swallow follow directions [facility] 36 S: Patient spoke wit h [facility] nurse regarding tongue problem B: Onset of [...] mouth or on tongue Protocols used: Mouth Xmtwjmiz-EAUEQ-HO [place] [address]on 01-22-2025 36 Notified patients who is someone we can speak to. [place] [address] Rx sent [place] [address] S: Patient spoke dao ORDOÑEZ nurse regarding [...] school, work, or sleep) Protocols used: Vaginal [id number] 01-15-2025 36 Notified, no further questions. [place] [address] Rx sent [place] [address] Spoke to rojelio Leonard she is getting worse, and states she needs something else. She does not think that this is viral and is adamantly requesting Levaquin [address] 01-14-2025 36 If she took a full course of Augmentin without significant benefit that is a good indication that this is probably viral and needs to run its course. [place] [address] S: patient calling C AC d/t cough [...] present > 10 days Protocols used: Common Chfx[place] [address] 01-13-2025 36 Rx sent. Follow up a s scheduled. [facility] 36 Prescription Request : Last medication check: 01/09/25 Last physical exam: 06/15/23 Next scheduled appointment: 03/04/25 Last date of refill on this medication 06/17/24 [facility] 36on 01-10-2025 36 Faxed OV and demographics [facility] 36 Okay to send. [facility] 36 Ok to send? [facility] 36 Name of caller: Rajani guevara Contact phone number: [phone] Relationship to Patient: Roly Provider: Dr. Gay Practice: [facility] Chief Complaint/Reason for Call: Ara called and stated they received the nebulizer RX and they need chart notes and an updated demographic sheet faxed to [phone] [facility] please. Best time of day caller can be reached: any Patient advised that office/PCP has 24-48 business hours to return their call: Yes [address] 01-09-2025 36 S: Patient spoke wit h [facility] nurse regarding Cough and not feeling well [...] for Disposition Wheezing is present Protocols used: Ypzzu-JOCKF-QM [facility] Office Visiton 01-09-2025 Follow-up visit [id number] Aisha Ha 1965 F Date Provider Department Center 01/09/2025 [id number] LERMA [facility] FELIX [facility] Family History Problem Relation Age of Onset Heart attack Mother Arthritis Mother High Blood Pressure Mother Depression Mother Cervical cancer Mother 30 Substance Abuse Father Arthritis Father High Blood Pressure Father Diabetes Father Family Status - Relation Status Age at Mother Father Level of Service:17001 MS OFFICE/OUTPATIENT ESTABLISHED MOD MDM 30 MIN Reason for Visit and Comments: Sinusitis [128654] - Ox Tank 2.5, Face, eyes, nose, [...] Inhale 1 puff (62.5 mcg) daily., [facility] 01/09/2025, Normal - predniSONE (Deltasone) 20 MG [...] Historical Provider, ergocalciferol (Vitamin D2) 1.25 MG (65599 UT) capsule Take 1 capsule (1.25 mg) by mouth 1 (one) time per week. 06/17/24 Yes Geovani Gay MD furosemide (Lasix) 20 MG tablet TAKE 40 MG (2 TABS) BY MOUTH SUN, , TH, SAT. TAKE 20 MG (1 TAB) BY MOUTH MON, , 12/16/24 Yes Elina Edwards, GARETH - KEMAR [place] Ellipta 62.5 M (more content not included)... [address] 12-30-2024 36 No longer using this inhaler per her chart. [place] [address] Rx sent. Follow up a s scheduled. [place] [address] Prescription Request : Last medication check: 09/12/24 Last physical exam: 06/13/24 Next scheduled appointment: 03/04/25 Last date of refill on this medication 06/13/24 90 and 1 refill [place] [address] This was discontinue d 05/29/[address] 12-16-2024 36 Reviewed chart. Refi ll appropriate. RX sent. [place] [address] Prescription Request : Last medication check: 09/12/24 Last physical exam: 06/13/24 Next scheduled appointment: 03/04/25 Last date of refill on this medication 08/22/[address] 12-12-2024 36 Reviewed chart. Refi ll appropriate. RX sent. [place] [address] Prescription Request : Last medication check: 09/12/24 Last physical exam: 06/13/24 Next scheduled appointment: 03/04/25 Last date of refill on this medication 06/13/24 18g [address] 11-29-2024 36 Rx sent. Follow up a s scheduled. [place] [address] Prescription Request : Last medication check: 09/12/24 Last physical exam: 06/13/24 Next scheduled appointment: 03/04/25 Last date of refill on this medication 06/13/24 90 and [address] 11-11-2024 36 Rx sent. Follow up a s scheduled. [address] 11-08-2024 36 Medication name: spironolactone (Aldactone) [...] prior to picking up the medication: Yes [address] 11-04-2024 Reviewed chart. Refi ll appropriate. RX sent. [place] [address] Prescription Request : Last medication check: 09-12-24 Last physical exam: 06-15-23 Next scheduled appointment: 03-04-25 Last date of refill on this medication 01/29/[address] 10-28-2024 Prescription Request : Last medication check: 09-12-24 Last physical exam: 06-15-23 Next scheduled appointment: 03-04-25 Last date of refill on this medication 01-29-[address] 10-22-2024 Reviewed chart. Refi ll appropriate. RX sent. [place] [address] Prescription Request : Last medication check: 09/12/24 Last physical exam: 06/15/23 Next scheduled appointment: 03/04/25 Last date of refill on this medication 06/13/24 30each and [address] 10-21-2024 Reviewed chart. Refi ll appropriate. RX sent. [place] [address] Prescription Request : Last medication check: 09/12/24 Last physical exam: 06/13/24 Next scheduled appointment: 03/04/25 Last date of refill on this medication 06/13/24 90 and [address] 10-10-2024 36 Spoke to Nataly from [facility]. Relayed patients phone number. [place] [address] Okay, thank you [address] 10-09-2024 36 Name of Caller: Nataly from [facility] Contact Reason: Nataly was calling to request an updated demographics page for Aisha, she states the last phone number that she had for the patient was in a senior care. She is requesting a call back. Office Name: [place] [facility] 36on 09-16-2024 36 Notified. [facility] 36on 09-13-2024 36 ----- Message from Geovani Gay MD sent at 09/13/2024 6:52 AM EST ----- Blood sugar is good, chemistry shows good kidney function sodium is significantly improved although still low. Left a message to return call. [facility] Office Visiton 09-12-2024 Follow-up visit [id number] Aisha Ha Emma 1965 F Date Provider Department Center 09/12/2024 [id number] GAY [facility] Family History Problem Relation Age of Onset Heart attack Mother Arthritis Mother High Blood Pressure Mother Depression Mother Cervical cancer Mother 30 Substance Abuse Father Arthritis Father High Blood Pressure Father Diabetes Father Family Status - Relation Status Age at Mother Father Level of Service:51428 MS OFFICE/OUTPATIENT ESTABLISHED MOD MDM 30 MIN Reason for Visit and Comments: COPD [313] Hypertension [541926] Hyperlipidemia [182] Cirrhosis [239] Vitamin D Deficiency [413] Seizures [97] Medication Check [8870864226] - 3 month Health Maintenance [872] - Lung ca screen- refuse Flu vaccine- agree 4th covid vaccine- not done [facility] Progress Noteon 09-12-2024 Progress Note Stable, recheck jodie vazquez today. [facility] Progress Note Controlled, continue atorvastatin 80 mg daily [facility] Progress Note Controlled, continue omeprazole 40 mg daily [facility] Progress Note Controlled, continue amlodipine 10 mg daily and metoprolol 25 mg daily [facility] Progress Note Stable on 2 L of oxygen [facility] Progress Note Stable, continue oxy gen and continue Incruse Ellipta 1 puff daily and albuterol as needed. [facility] Progress Note Stable, currently no wheezing. [facility] Progress Note Stable, continue Kep pra 500 mg 2 twice a day and Tegretol 200 mg 2 twice a day. [facility] Progress Note Patient was verified by name and . After obtaining consent, and per orders of Dr. Gay, injection of Influenza given in right deltoid by Jenelle Garcia after cleansing site with alcohol pad. Patient tolerated well. [facility] Progress Note Patient verified by last name and date of . [facility] Progress Note 09/12/2024 Aisha Ha (: 1965) [...] note. Geovani Gay MD 09/12/2024 12:52 PM [facility] 36on 08-22-2024 36 Prescription Request : Last medication check: 08/14/24 Last physical exam: 06/15/23 Next scheduled appointment: 09/12/24 Last date of refill on this medication 06/13/24 Pharmacy requesting 90 day supply [facility] DBT Breast - bilateral scree carlos 08-19-2024 [...] Signed Date/Time: 08/19/2024 11:55 AM EDT [facility] [employer] Patient Name: AISHA HA : 1965 Exam Date/Time: 08/19/2024 10:56 Procedure: BI MAMMOGRAM SCREENING TOMOSYNTHESIS BILATERAL Ordering Provider: GAY DARRELL Reason For Exam: This exam was performed at: [place] [address] PATIENT CANCER HISTORY: No Personal History of Cancer FAMILY CANCER HISTORY: No Family History of Cancer Image views: 2D Bilateral CC and MLO views were acquired. 3D Bilateral CC and MLO views were acquired. Images were reviewed with CAD. Markings on images: BB's = Nipples; skin lesions Open [place] = Palpable Line = Scar COMPARISON: 07/08/2022, 08/17/2023 TISSUE DENSITY: BIRADS B - There are scattered areas of fibroglandular density. FINDINGS: No suspicious masses, architectural distortions or suspiciously clustered microcalcifications are identified. There is no evidence of skin thickening or nipple retraction. There are no significant changes when compared with prior studies. [facility] [employer] Kelsey Santacruz MD - 08/19/2024 Patient Name: AISHA HA : 1965 Exam Date/Time: 08/19/2024 10:56 Procedure: BI MAMMOGRAM SCREENING TOMOSYNTHESIS BILATERAL Ordering Provider: GAY DARRELL Reason For Exam: This exam was performed at: [facility] [address] [place] [address] PATIENT CANCER HISTORY: No Personal History of Cancer FAMILY CANCER HISTORY: No Family History of Cancer Image views: 2D Bilateral CC and MLO views were acquired. 3D Bilateral CC and MLO views were acquired. Images were reviewed with CAD. Markings on images: BB's = Nipples; skin lesions [place] = Palpable Line = Scar COMPARISON: 07/08/2022, [...] Electronically Signed Date/Time: 08/19/2024 11:55 AM EDT [facility] [employer] Radiology Study observation (narrative) [facility]th DBT Breast - bilateral scree ningOrdered By: Kelsey Santacruz on 08-19-2024 [employer] Work Phone: AMB POC COVID-19 COVon 08-14 SARS-CoV-2 (COVID-19) RNA SRAVANI+non-probe Ql (Nph) Negative Negative [facility] [facility] AMB POC RAPID INFLUENZA DNA/ RNAon 08-14-2024 Inflenza A Ag [facility] Ag Negative [facility] th [facility] Visiton 08-14-2024 Follow-up visit [id number] Aisha Ha 1965 F Date Provider Department Center 08/14/2024 [id number] GONZALES [facility] Family History Problem Relation Age of Onset Heart attack Mother Arthritis Mother High Blood Pressure Mother Depression Mother Cervical cancer Mother 30 Substance Abuse Father Arthritis Father High Blood Pressure Father Diabetes Father Family Status - Relation Status Age at Mother Father Level of Service:37649 MS OFFICE/OUTPATIENT ESTABLISHED LOW MDM 20 MIN Reason [...] Turbinates: Swollen. Left Turbinates: Swollen. Mouth/Throat: Lips: [place]. Mouth: Mucous membranes are moist. Pharynx: Oropharynx [...] Auto (Unsp spec) [#/Vol] 1.81 10*3/uL 0.83-4.51 [facility] Atypical perinuclear antineu trophil cytoplasmic antibodies measurementOrdered By: Elina Thorpe on 01-16-2023 Neutrophil cytoplasmic Ab.perinuclear.atypical IF (S) [Titer] <1:20 titer Neg:<1:20 [facility] Comment on above: The atypical pANCA p attern has been observed in asignificant percentage of patients with ulcerative colitis,primary sclerosing cholangitis and autoimmune hepatitis. Basophil percentageOrdered B y: Elina Thorpe on 01-16-2023 Ammonia (P) [Moles/Vol] 40.0 umol/L 11-32 [facility] Basophil percentage < 0.2 AI 0.0-0.9 [facility] Basophils/100 WBC (Bld) 0.8 % 0-1 [facility] Bilirubin [Mass/Vol] 0.50 mg/dL 0.20-1.00 [facility] Comment on above: For patients on eltr ombopag therapy, use of Dimension [place]ao TBIL is not recommended. Chloride [Moles/Vol] 96 mmol/L 98-107 [facility] Eosinophils/100 WBC (Bld) 1.0 % 0-5 [facility] Glucose [Mass/Vol] 78 mg/dL 74-106 [facility] LDH [Catalytic activity/Vol] 304 U/L 84-246 [facility] Neutrophils (Bld) [#/Vol] 3.7 10*3/uL 2.0-7.7 [facility] Neutrophils/100 WBC (Bld) 60.8 % 47-70 [facility] Potassium [Moles/Vol] 3.3 mmol/L 3.5-5.[address] [facility] Protein [Mass/Vol] 7.7 g/dL 6.4-8.2 [facility] Sodium [Moles/Vol] 129 mmol/L 136-145 [facility] WBC (Bld) [#/Vol] 6.0 10*3/uL 4.4-11.0 [facility] Blood erythrocytes count (nu mber/volume)Ordered By: Elina Thorpe on 01-16-2023 RBC (Bld) [#/Vol] 3.76 10*6/uL 4.2-5.4 [facility] Blood hemoglobin measurement (mass/volume)Ordered By: Elina Thorpe on 01-16-2023 Hemoglobin (Bld) [Mass/Vol] 13.1 g/dL 12.0-15.0 [facility] Blood lymphocytes/100 leukoc ytesOrdered By: Elina Thorpe on 01-16-2023 Lymphocytes/100 WBC (Bld) 30.1 % 19-41 [facility] Blood monocytes/100 leukocyt esOrdered By: Elina Thorpe on 01-16-2023 Monocytes/100 WBC (Bld) 7.0 % 0-10 [facility] Blood platelet mean volumeOr dered By: Elina Thorpe on 01-16-2023 Platelet mean volume (Bld) [Entitic vol] 10.1 fL 6.2-12.0 [facility] Determination of erythrocyte mean corpuscular volume (MCV)Ordered By: Elina Thorpe on 01-16-2023 MCV (RBC) [Entitic vol] 101.1 fL 81-99 [facility] Erythrocyte sedimentation ra teOrdered By: Elina Thorpe on 01-16-2023 ESR (Bld) [Velocity] 69 mm/h 0-30 [facility] HIV 1 and HIV-2 antibody ass ay with HIV-1 p24 antigen detectionOrdered By: Elina Thorpe on 01-16-2023 HIV 1+2 Ab+HIV1 p24 Ag IA Ql Non-Reactive Nonreactive [facility] Hematocrit Auto (Bld) [Volum e fraction]Ordered By: Elina Thorpe on 01-16-2023 Hematocrit (Bld) [Volume fraction] 38.0 % 37-47 [facility] INR in Blood by Coagulation assayOrdered By: Elina Thorpe on 01-16-2023 INR Coag (Bld) [Relative time] 1.1 {INR} [facility] Laboratory - Chemistry and C hemistry - challengeOrdered By: Elina Thorpe on 01-16-2023 ALP [Catalytic activity/Vol] 228 U/L 45-117 [facility] ALT [Catalytic activity/Vol] 65 U/L 13-56 [facility] CO2 [Moles/Vol] 27.0 mmol/L 21.0-32.0 [facility] Globulin (S) [Mass/Vol] 4.8 g/dL 2.2-4.2 [facility] Urea nitrogen/Creatinine [Mass ratio] 13.6 mg/mg 10-20 [facility] Laboratory - CoagulationOrde red By: Elina Thorpe on 01-16-2023 PT Coag (PPP) [Time] 13.9 s 11.7-14.9 [facility] Laboratory - Hematology and Cell countsOrdered By: Elina Thorpe on 01-16-2023 Erythrocyte distribution width (RBC) [Entitic vol] 61.1 fL 35.1-43.9 [facility] Erythrocyte distribution width (RBC) [Ratio] 16.2 % 11.6-14.6 [facility] Immature granulocytes/100 WBC (Bld) 0.300 % 0.0-0.9 [facility] Comment on above: IG% - Immature Granu locytes (promyelocytes, myelocytes and metamyelocytes) > 1% indicates that a LEFT SHIFT is Present. MCH (RBC) [Entitic mass] 34.8 pg 27.0-32.0 [facility] Nucleated RBC/100 WBC (Bld) [Ratio] 0 % 0-5 [facility] MCHC Auto (RBC) [Mass/Vol]Or dered By: Elina Thorpe on 01-16-2023 MCHC (RBC) [Mass/Vol] 34.5 g/dL 32-[address] [facility] No Panel InformationOrdered By: Elina Thorpe on 01-16-2023 Centromere B Antibody <0.2 AI 0.0-0.[address] [facility] Ceruloplasmin 30.6 mg/dL 19.0-39.0 [facility] Estimated GFR (MDRD) Amer 231 mL/min >60 [facility] Comment on above: GFR Calc Estimated GFR (MDRD) Non-Af Amer 191 mL/min >60 [facility] Comment on above: Non- GFR Calc Haptoglobin 117 mg/dL 33-346 [facility] Comment on above: Performed at: CB - [address] [id number] Director: Mariano Cheatham PhD, Phone: [phone] at: - [address] [id number] Director: Isha Sandhu MD, Phone: [phone] Hepatitis A IgM Antibody Negative Negative [facility] Hepatitis B Core IgM Antibody Negative Negative [facility] Hepatitis C Antibody (EIA) Non-Reactive Non Reactive [facility] Hepatitis C Antibody Comment Comment . [facility] Comment on above: Not infected with HC V unless early or acute infection issuspected (which may be delayed in an immunocompromisedindividual), or other evidence exists to indicate HCVinfection. COMMODITY [employer]AD Antibody 0.8 AI 0.0-0.9 [facility] Platelets bldOrdered By: Cecilia Thorpe on 01-16-2023 Platelets (Bld) [#/Vol] 166 10*3/uL 150-450 [facility] Serum DNA double strand anti body assay (units/volume)Ordered By: Elina Thorpe on 01-16-2023 DNA double strand Ab Qn (S) 13 [IU]/mL 0-9 [facility] Comment on above: Negative <5 Equivoca l 5 - 9 Positive >9 Serum Ana-1 antibody assay (u nits/volume)Ordered By: Elina Thorpe on 01-16-2023 Ana-1 extractable nuclear Ab Qn (S) <0.2 AI 0.0-0.9 [facility] Serum Scl-70 extractable nuc lear antibody assay (units/volume)Ordered By: Elina Thorpe on 01-16-2023 SCL-70 extractable nuclear Ab Qn (S) <0.2 AI 0.0-0.9 [facility] Serum Irwin extractable nucl ear antibody detectionOrdered By: Elina Thorpe on 01-16-2023 Irwin extractable nuclear Ab Ql (S) <0.2 AI 0.0-0.9 [facility] Serum classic neutrophil cyt oplasmic antibody assay (units/volume)Ordered By: Elina Thorpe on 01-16-2023 Neutrophil cytoplasmic Ab.classic Qn (S) <1:20 titer Neg:<1:20 [facility] Serum mitochondria antibody detectionOrdered By: Elina Thorpe on 01-16-2023 Mitochondria Ab Ql (S) <20.0 Units 0.0-20.0 [facility] Comment on above: Negative 0.0 - 20.0 Equivocal 20.1 - 24.9 Positive >24.9Mitochondrial (M2) Antibodies are found in 90-96% ofpatients with primary biliary cirrhosis.Performed at: [facility] [address] [id number] Director: Mariano Cheatahm PhD, Phone: [phone] Serum or plasma C reactive p rotein measurement (mass/volume)Ordered By: Elina Thorpe on 01-16-2023 CRP [Mass/Vol] mg/L 0.0-3.0 [facility] Comment on above: C-Reactive Protein ( CRP) provides useful information for thediagnosis, therapy and monitoring of inflammatory processesand associated diseases. For the evaluation of Relative Riskfor Cardiovascular Disease, a High Sensitivity CRP (HSCRP)should be ordered. Serum or plasma actin IgG an tibody assay (units/volume)Ordered By: Elina Thorpe on 01-16-2023 Actin IgG Qn 24 Units 0-19 [facility] Comment on above: Negative 0 - 19 Weak positive 20 - 30 Moderate to strong positive >30 Actin Antibodies are found in 52-85% of patients with autoimmune hepatitis or chronic active hepatitis and in 22% of patients with primary biliary cirrhosis. Serum or plasma albumin ceasar urement (mass/volume)Ordered By: Elina Thorpe on 01-16-2023 Albumin [Mass/Vol] 2.9 g/dL 3.2-5.0 [facility] Serum or plasma albumin/glob ulin mass ratioOrdered By: Elina Thorpe on 01-16-2023 Albumin/Globulin [Mass ratio] 0.6 {ratio} 0.9-2.4 [facility] Serum or plasma [id number] protein tumor marker measurement (units/volume)Ordered By: Elina Thorpe on 01-16-2023 AFP.tumor marker Qn 3.7 ng/mL 0.0-9.2 [facility] Comment on above: [employer] El ectrochemiluminescence Immunoassay(ECLIA)Values obtained with different assay methods or kits cannotbe used interchangeably. Results cannot be interpreted asabsolute evidence of the presence or absence of malignantdisease.This test is not interpretable in females. Serum or plasma angiotensin converting enzyme measurement (enzymatic activity/volume)Ordered By: Elina Thorpe on 01-16-2023 Angiotensin converting enzyme [Catalytic activity/Vol] U/L 14-82 [facility] Serum or plasma calcium ceasar urement (mass/volume)Ordered By: Elina Thorpe on 01-16-2023 Calcium [Mass/Vol] 8.7 mg/dL 8.5-10.1 [facility] Serum or plasma creatinine m easurement (mass/volume)Ordered By: Elina Thorpe on 01-16-2023 Creatinine [Mass/Vol] 0.37 mg/dL 0.55-1.[address] [facility] Comment on above: The validity of the calculated GFR & GFRAA in patients over 70 years has not been determined. Clinical correlation is essential. Serum or plasma ferritin misael surement (mass/volume)Ordered By: Elina Thorpe on 01-16-2023 Ferritin [Mass/Vol] 44 ng/mL 8252 [facility] Serum or plasma hepatitis B virus surface antigen detection by immunoassayOrdered By: Elina Thorpe on 01-16-2023 HBV surface Ag IA Ql Negative Negative [facility] Serum or plasma urea nitroge n measurement (mass/volume)Ordered By: Elina Thorpe on 01-16-2023 Urea nitrogen [Mass/Vol] 5 mg/dL 7-18 [facility] Serum perinuclear neutrophil cytoplasmic antibody titer by immunofluorescenceOrdered By: Elina Thorpe on 01-16-2023 Neutrophil cytoplasmic Ab.perinuclear IF (S) [Titer] <1:20 titer Neg:<1:20 [facility] Comment on above: The presence of posi tive fluorescence exhibiting P-ANCA orC-ANCA patterns alone is not specific for the diagnosis ofWegener's Granulomatosis (WG) or microscopic polyangiitis.Decisions about treatment should not be based solely onANCA IFA results. The [employer] ANCA [employer] Consensusrecommends follow up testing of positive sera with both MS-3 and MPO-ANCA enzyme immunoassays. As many as 5% serumsamples are positive only by EIA. Ref. AM J Clin [id number];111:507-513. Thin prep Papanicolaou smear with manual screeningOrdered By: Elina Thorpe on 01-16-2023 Thin prep Papanicolaou smear with manual screening 268 U/L 15-37 [facility] Thin prep Papanicolaou smear with manual screening 6 5-15 [facility] Thin prep Papanicolaou smear with manual screening 157 ug/dL 80-158 [facility] Comment on above: Detection Limit = 5 Whole blood hemoglobin A1c/t otal hemoglobin ratio (mass fraction)Ordered By: Elina Thorpe on 01-16-2023 HbA1c (Bld) [Mass fraction] 5.0 % 3.8-5.6 [facility] Comment on above: Normal < 5.7 % Predi abetic 5.7 - 6.4 % Diabetic >or= 6.5 % Please note range changes. CT Chest for screening [facility] ntraston 11-16-2022 1. Multiple groundgl ass [...] Sullivan Electronically Signed Date/Time: 11/16/2022 4:18 PM [facility] [employer] RADIOLOGY SYSTEM Patient Name: AISHA HA Exam [...] fixation hardware. No suspicious axillary adenopathy. [facility] RADIOLOGY SYSTEM Radiology Study observation (narrative) [facility] alth CT Chest for screening WO co ntrastOrdered By: Eloise Sullivan on 11-16-2022 [facility] [employer] Work Phone: MG Breast Tomosynthesis Scr Blon 07-08-2022 MG Breast Tomosynthesis Scr Bl Patient Name: AISHA HA Mammography ACCESSION EXAM DATE/TIME PROCEDURE ORDERING PROVIDER [id number] 07/08/2022 10:48 EDT MG Breast Tomosynthesis MD VICTOR HUGO, GEOVANI BI Scr [place] CPT code 95626 16712 Reason For Exam (MG Breast Tomosynthesis BI [...] MG breast tomosynthesis bl scr performed at [facility]. July 06, 2020, bilateral MG breast tomosynthesis bl scr performed at [facility]. July 03, 2019, bilateral MG breast tomosynthesis bl scr performed at [facility]. TISSUE DENSITY: BIRADS B - There are [...] images: BB's = Nipples; skin lesions Open [place] = Palpable Line = Scar 2D digital [...] Signed by: MD MATHUR ANN C. Normal [facility] Isaac Digital Screen Chio larios 07-08-2022 Patient Name: AISHA HA Mammography ACCESSION EXAM DATE/TIME PROCEDURE ORDERING PROVIDER [id number] 07/08/2022 10:48 EDT MG Breast Tomosynthesis MD VICTOR HUGO, GEOVANI BI Scr [place] CPT code 99609 [id number] Reason For Exam (MG Breast Tomosynthesis BI [...] MG breast tomosynthesis bl scr performed at [facility]. July 06, 2020, bilateral MG breast tomosynthesis bl scr performed at [facility]. July 03, 2019, bilateral MG breast tomosynthesis bl scr performed at [facility]. TISSUE DENSITY: BIRADS B - There are [...] images: BB's = Nipples; skin lesions [place] = Palpable Line = Scar 2D digital [...] am Signed by: MD SUSHMA, MARKEL Linton [facility] Markel Mathur MD - 07/08/2022 Patient Name: AISHA HA Mammography ACCESSION EXAM DATE/TIME PROCEDURE ORDERING PROVIDER [id number] 07/08/2022 10:48 EDT MG Breast Tomosynthesis MD VICTOR HUGO, GEOVANI BI Scr [place] CPT code [id number] Reason For Exam (MG Breast Tomosynthesis BI [...] MG breast tomosynthesis bl scr performed at [facility]. July 06, 2020, bilateral MG breast tomosynthesis bl scr performed at [facility]. July 03, 2019, bilateral MG breast tomosynthesis bl scr performed at [facility]. TISSUE DENSITY: BIRADS B - There [...] images: BB's = Nipples; skin lesions [place] = Palpable Line = Scar 2D digital [...] am Signed by: MD SUSHMA, MARKEL Linton [facility] Work Phone: Radiology Study observation (narrative) [facility] Work Phone: [facility] Isaac Digital Screen Bila teralOrdered By: Markel Mathur on 07-08-[address] [facility] [address] Low Dose Lung Diagnostico n 05-11-2022 CT Low Dose Lung Diagnostic Patient Name: AISHA HA Computed Tomography ACCESSION EXAM DATE/TIME PROCEDURE ORDERING PROVIDER [id number] 05/11/2022 11:[address] Low Dose Thorax w/o KEMAR GONZALES, LINDA S Cont CPT code 30922 Reason For Exam (CT Low Dose Thorax [...] Transcribed Date and Time: 05/13/2022 2:47 Normal [facility] OPERATIVE REPORTon Ordered by an unspecified provider. [facility] Op Noteon 04-27-2022 Op Note Date: 04/27/2022 [...] in stable condition. All counts were correct [facility] Surgical Pathologyon 022 Surgical Pathology [id number] [facility] DEPARTMENT [facility] PATHOLOGY AND LABORATORY MEDICINE [address] [facility] [place] [address] Fax - FINAL SURGICAL PATHOLOGY REPORT ___ NAME: AISHA HA Serg [id number] : 1965 57 Y F YING NO.: [id number] LOCATION: [facility] SDS 01 PROCEDURE 04/27/2022 DATE: [...] wall measures 1.0 cm in average thickness. [place] Fancier sections are submitted in one cassette. YRS/JAM Disclaimer: The following statement applies to all immunohistochemistry, in situ hybridization, molecular studies, and immunofluorescence testing. The use of one or more reagents in the above tests is regulated as an analyte specific reagent (ASR). These tests were developed and their performance characteristics determined by the clinical laboratories of [facility]. They have not been cleared by [...] negativity on decalcified specimens. Case reviewed at [place] [address] [place] [address]. DEPARTMENT OF PATHOLOGY AND LABORATORY MEDICINE [place], [place] [address] [email or web address] Normal [facility] Levetiracetamon 04-20-2022 levETIRAcetam [Mass/Vol] 23 ug/mL Normal 10-40 [facility] Comment on above: Result Comment: INTE RPRETIVE INFORMATION: Keppra (Levetiracetam) Therapeutic Range: 10-40 ug/mL Toxic: Not well Established Pharmacokinetics of levetiracetam are affected by renal function. Adverse effects may include somnolence, weakness, headache and vomiting. This levetiracetam (Keppra) immunoassay uses the [employer] reagents, which has known cross-reactivity with the drug brivaracetam (Briviact) and may report inaccurate results. Patients transitioning from levetiracetam to brivaracetam or those who are using both medications should not monitor drug concentrations with the [employer] assay. These patients should be monitored using a validated chromatographic methodology that distinguishes between drugs to determine drug concentrations. Performed By: [facility] [address] [place] [address] Coil Inspector: Shonna Ruff MD Performed By: #### L SNOW #### The performing lab is in the report. #### HEMOG, CMP3M, MG3, PT #### [facility] [address] [place] [address] CBCon 04-18-2022 Interpretation and review of laboratory results Abnormal [facility] MCHC (RBC) [Mass/Vol] 34.3 % 32.0 - 36.0 % [facility] Platelet distribution width (Bld) [Ratio] 15.4 % High 11.5 - 14.5 % [facility] Test Performed by [facility], [address] [place], [place] [address] [facility] Comp Panel with Mg Reflexon 04-18-2022 ALP [Catalytic activity/Vol] 217 U/L High 38-126 [facility] Comment on above: Performed By: #### L SNOW #### The performing lab is in the report. #### HEMOG, CMP3M, MG3, PT #### [facility] [address] [place] [address] ALT [Catalytic activity/Vol] 77 U/L High 0-34 [facility] Comment on above: Result Comment: The ALT test is performed by an updated assay method. Please note that the reference intervals have been changed and are now sex specific. Performed By: #### L SNOW #### The performing lab is in the report. #### HEMOG, CMP3M, MG3, PT #### [facility] [address] [place] [address] Anion gap [Moles/Vol] 5 mmol/L Normal 3-13 [facility] Comment on above: Performed By: #### L SNOW #### The performing lab is in the report. #### HEMOG, CMP3M, MG3, PT #### [facility] [address] [place] [address] AST [Catalytic activity/Vol] 119 U/L High 15-46 [facility] Comment on above: Performed By: #### L SNOW #### The performing lab is in the report. #### HEMOG, CMP3M, MG3, PT #### [facility] [address] [place] [address] Bilirubin [Mass/Vol] 0.7 mg/dL Normal 0.2-1.3 [facility] Comment on above: Performed By: #### L SNOW #### The performing lab is in the report. #### HEMOG, CMP3M, MG3, PT #### [facility] [address] [place] [address] Calcium [Mass/Vol] 9.5 mg/dL Normal 8.4-10.4 [facility] Comment on above: Performed By: #### L SNOW #### The performing lab is in the report. #### HEMOG, CMP3M, MG3, PT #### [facility] [address] [place] [address] CO2 [Moles/Vol] 30 mmol/L Normal 22-30 [facility] Comment on above: Performed By: #### L SNOW #### The performing lab is in the report. #### HEMOG, CMP3M, MG3, PT #### [facility] [address] [place] [address] Glucose [Mass/Vol] 114 mg/dL High 70-100 [facility] Comment on above: Performed By: #### L SNOW #### The performing lab is in the report. #### HEMOG, CMP3M, MG3, PT #### [facility] [address] [place] [address] Protein [Mass/Vol] 8.4 g/dL High 6.3-8.2 [facility] Comment on above: Performed By: #### L SNOW #### The performing lab is in the report. #### HEMOG, CMP3M, MG3, PT #### [facility] [address] [place] [address] Urea nitrogen [Mass/Vol] mg/dL Low 9-20 [facility] Comment on above: Performed By: #### L SNOW #### The performing lab is in the report. #### HEMOG CMP3M, MG3, PT #### [facility] [address] [place] [address] Creatinine [Mass/Vol] 0.43 mg/dL Low 0.52-1.25 [facility] Comment on above: Performed By: #### L SNOW #### The performing lab is in the report. #### HEMJAMES CMP3M, MG3, PT #### [facility] [address] [place] [address] eGFR OTHER > 90.0 Normal >60 [facility] Comment on above: Result Comment: KDIG [...] the report. #### HEMOGHATTIE3M, MG3, PT #### [facility] [address] [place] [address] GFR/1.73 sq M.predicted among blacks MDRD (S/P/Bld) [Vol rate/Area] mL/min/{1.73_m2} Normal >60 [facility] Comment on above: Performed By: #### L SNOW #### The performing lab is in the report. #### HEMOG, CMP3M, MG3, PT #### [facility] [address] [place] [address] Albumin [Mass/Vol] 4.3 g/dL Normal 3.5-5.0 [facility] Comment on above: Performed By: #### L SNOW #### The performing lab is in the report. #### HEMOG, CMP3M, MG3, PT #### [facility] [address] [place] [address] Chloride [Moles/Vol] 100 mmol/L Normal 98-107 [facility] Comment on above: Performed By: #### L SNOW #### The performing lab is in the report. #### HEMOG, CMP3M, MG3, PT #### [facility] [address] [place] [address] Potassium [Moles/Vol] 3.3 mmol/L Low 3.5-5.1 [facility] Comment on above: Performed By: #### L SNOW #### The performing lab is in the report. #### HEMOG, CMP3M, MG3, PT #### [facility] [address] [place] [address] Sodium [Moles/Vol] 136 mmol/L Normal 135-145 [facility] Comment on above: Performed By: #### L SNOW #### The performing lab is in the report. #### HEMOG, CMP3M, MG3, PT #### [facility] [address] [place] [address] Comprehensive Metabolic Pane l w/ Reflex to MGon 04-18-2022 Albumin [Mass/Vol] 4.3 g/dL 3.5 - 5.0 g/dL [facility] ALP (Bld) [Catalytic activity/Vol] 217 U/L High 38 - 126 U/L [facility] ALT [Catalytic activity/Vol] 77 U/L High 0 - 34 U/L [facility] Comment on above: The ALT test is [...] - 1.25 mg/dL [facility] EGFR IF NonAfrican Portuguese >90.0 >60 mL/min [facility] Comment on above: [...] - 20 mg/dL [facility] Test Performed by [facility], [address] [place], [place] [address] [facility] Hemogramon 04-18-2022 Erythrocyte distribution width (RBC) [Ratio] 15.4 % High 11.5-14.5 [facility] Comment on above: Performed By: #### L SNOW #### The performing lab is in the report. #### HEMOG CMP3M, MG3, PT #### [facility] [address] [place] [address] MCHC 34.3 % Normal 32.0-36.0 [facility] Comment on above: Performed By: #### L SNOW #### The performing lab is in the report. #### HEMJAMES CMP3M, MG3, PT #### [facility] [address] [place] [address] Hematocrit (Bld) [Volume fraction] 37.6 % Normal 35.0-47.0 [facility] Comment on above: Performed By: #### L SNOW #### The performing lab is in the report. #### HEMOG CMP3M, MG3, PT #### [facility] [address] [place] [address] Hemoglobin (Bld) [Mass/Vol] 12.9 g/dL Normal 11.7-16.0 [facility] Comment on above: Performed By: #### L SNOW #### The performing lab is in the report. #### HEMOG CMP3M, MG3, PT #### [facility] [address] [place] [address] MCH (RBC) [Entitic mass] 36.2 pg High 26.0-34.0 [facility] Comment on above: Performed By: #### L SNOW #### The performing lab is in the report. #### HEMOG CMP3M, MG3, PT #### [facility] [address] [place] [place] [address] MCV (RBC) [Entitic vol] 105.7 fL High 79.0-98.0 [facility] Comment on above: Performed By: #### L SNOW #### The performing lab is in the report. #### HEMOG, CMP3M, MG3, PT #### [facility] [address] [place] [address] Platelet mean volume (Bld) [Entitic vol] 7.7 fL Normal 7.4-12.4 [facility] Comment on above: MPV is a calculated measurement using platelet volume ratio. Result Comment: MPV is a calculated measurement using platelet volume ratio. Performed By: #### L SNOW #### The performing lab is in the report. #### HEMOG, CMP3M, MG3, PT #### [facility] [address] [place] [address] Platelets (Bld) [#/Vol] 176 10*3/uL Normal 140-440 [facility] Comment on above: Performed By: #### L SNOW #### The performing lab is in the report. #### HEMOG, CMP3M, MG3, PT #### [facility] [address] [place] [address] RBC (Bld) [#/Vol] 3.56 10*6/uL Low 3.80-5.20 [facility] Comment on above: Performed By: #### L SNOW #### The performing lab is in the report. #### HEMOG, CMP3M, MG3, PT #### [facility] [address] [place] [address] WBC (Bld) [#/Vol] 5.5 10*3/uL Normal 3.6-10.7 [facility] Comment on above: Performed By: #### L SNOW #### The performing lab is in the report. #### HEMOG, CMP3M, MG3, PT #### [facility] [address] [place] [address] Magnesiumon 04-18-2022 Magnesium [Mass/Vol] 1.7 mg/dL Normal 1.6-2.3 [facility] Comment on above: Performed By: #### L SNOW #### The performing lab is in the report. #### HEMOG, CMP3M, MG3, PT #### [facility] [address] [place] [address] Magnesium [Mass/Vol] 1.7 mg/dL 1.6 - 2 .3 mg/dL [facility] Test Performed by [facility], [address] [place], [place], [place] [address] [facility] Prothrombin Timeon INR 1.0 Normal 0.9-1.1 [facility] Comment on above: Result Comment: Stef [...] report. #### HEMOG, CMP3M, MG3, PT #### [address] [place] [address] PT Coag (PPP) [Time] 11.1 s Normal 9.0-12.0 [facility] Comment on above: Result Comment: . Performed By: #### L SNOW #### The performing lab is in the report. #### HEMOG, CMP3M, MG3, PT #### [address] [place] [address] Protime-INRon 04-18-2022 INR Coag (Bld) [Relative time] 1.0 {INR} [facility] Comment on above: Recommended Anticoag ulant Therapy: [...] [Time] 11.1 s 9.0 - 12.0 s [facility] Comment on above: . Test Performed by [facility], [address] [place], [place], [place] [id number] [place] [address] LAB [facility] Basophil percentageon 2021 Bilirubin [Mass/Vol] 0.30 mg/dL 0.20-1.00 [facility] Work Phone: Comment on above: For patients on eltr ombopag therapy, use of Dimension [place] TBIL is not recommended. Chloride [Moles/Vol] 98 mmol/L 98-107 [facility] Work Phone: [phone] Glucose [Mass/Vol] 85 mg/dL 74-106 [facility] Work Phone: Comment on above: Please note revised GLUCOSE reference range effective 2017. Potassium [Moles/Vol] 4.0 mmol/L 3.5-5.[address] [facility] Work Phone: [phone] Protein [Mass/Vol] 8.6 g/dL 6.4-8.2 [facility] Work Phone: [phone] Sodium [Moles/Vol] 134 mmol/L 136-145 [facility] Work Phone: [phone] WBC (Bld) [#/Vol] 7.5 10*3/uL 4.4-11.0 [facility] Work Phone: [phone] Blood erythrocytes count (nu mber/volume)on 10-28-2021 RBC (Bld) [#/Vol] 3.84 10*6/uL 4.2-5.4 [facility] Work Phone: [phone] Blood hemoglobin measurement (mass/volume)on 10-28-2021 Hemoglobin (Bld) [Mass/Vol] 13.4 g/dL 12.0-15.0 [facility] Work Phone: [phone] Blood platelet mean volumeon 10-28-2021 Platelet mean volume (Bld) [Entitic vol] 11.2 fL 6.2-12.0 [facility] Work Phone: [phone] Determination of erythrocyte mean corpuscular volume (MCV)on 10-28-2021 MCV (RBC) [Entitic vol] 107.0 fL 81-99 [facility] Work Phone: Direct bilirubinon Bilirubin.direct [Mass/Vol] 0.18 mg/dL 0.00-0.30 [facility] Work Phone: Hematocrit Auto (Bld) [Volum e fraction]on 10-28-2021 Hematocrit (Bld) [Volume fraction] 41.1 % 37-47 [facility] Work Phone: INR in Blood by Coagulation assayon 10-28-2021 INR Coag (Bld) [Relative time] 1.0 {INR} [facility] Work Phone: Laboratory - Chemistry and C hemistry - challengeon 10-28-2021 ALP [Catalytic activity/Vol] 118 U/L 45-117 [facility] Work Phone: ALT [Catalytic activity/Vol] 29 U/L 13-56 [facility] Work Phone: CO2 [Moles/Vol] 30.0 mmol/L 21.0-32.0 [facility] Work Phone: Globulin (S) [Mass/Vol] 5.2 g/dL 2.2-4.2 [facility] Work Phone: Urea nitrogen/Creatinine [Mass ratio] 8.9 mg/mg 10-20 [facility] Work Phone: Laboratory - Coagulationon 0 10-28-2021 aPTT Coag (Bld) [Time] 36.0 s 24.1-36.2 [facility] Work Phone: PT Coag (PPP) [Time] 12.8 s 11.7-14.9 [facility] Work Phone: Laboratory - Hematology and Cell countson 10-28-2021 Erythrocyte distribution width (RBC) [Entitic vol] 57.5 fL 35.1-43.9 [facility] Work Phone: Erythrocyte distribution width (RBC) [Ratio] 14.4 % 11.6-14.6 [facility] Work Phone: [phone] MCH (RBC) [Entitic mass] 34.9 pg 27.0-32.0 [facility] Work Phone: [phone] MCHC Auto (RBC) [Mass/Vol]on 10-28-2021 MCHC (RBC) [Mass/Vol] 32.6 g/dL 32-[address] [facility] Work Phone: [phone] No Panel Informationon 10-28 Estimated GFR (MDRD) Amer 185 mL/min >60 [facility] Work Phone: Comment on above: GFR Calc Estimated GFR (MDRD) Non-Af Amer 153 mL/min >60 [facility] Work Phone: Comment on above: Non- GFR Calc Platelets bldon 10-28-2021 Platelets (Bld) [#/Vol] 227 10*3/uL 150-450 [facility] Work Phone: [phone] Serum or plasma albumin ceasar urement (mass/volume)on 10-28-2021 Albumin [Mass/Vol] 3.4 g/dL 3.2-5.0 [facility] Work Phone: [phone] Serum or plasma calcium ceasar urement (mass/volume)on 10-28-2021 Calcium [Mass/Vol] 9.4 mg/dL 8.5-10.1 [facility] Work Phone: [phone] Serum or plasma creatinine m easurement (mass/volume)on 10-28-2021 Creatinine [Mass/Vol] 0.45 mg/dL 0.55-1.[address] [facility] Work Phone: Comment on above: The validity of the calculated GFR & GFRAA in patients over 70 years has not been determined. Clinical correlation is essential. Serum or plasma urea nitroge n measurement (mass/volume)on 10-28-2021 Urea nitrogen [Mass/Vol] 4 mg/dL 7-18 [facility] Work Phone: [phone] Thin prep Papanicolaou smear with manual screeningon 10-28-2021 Thin prep Papanicolaou smear with manual screening 27 U/L 15-37 [facility] Work Phone: Thin prep Papanicolaou smear with manual screening 6 5-15 [facility] Work Phone: CT Low Dose Lung Diagnostico n 09-27-2021 CT Low Dose Lung Diagnostic Patient Name: AISHA HA Computed Tomography ACCESSION EXAM DATE/TIME PROCEDURE ORDERING PROVIDER [id number] 09/27/2021 14:[address] Low Dose Thorax w/o CHRISTIAN, DIRECTOR HR COMMUNICATIONS, LINDA S Cont CPT code 17918 Reason For Exam (CT Low Dose Thorax [...] Transcribed Date and Time: 09/29/2021 9:01 Normal [facility] DEMIAN ISAAC DIGITAL SCREEN BILA TERALOrdered By: Geovani Gay on 07-07-2021 Patient Name: AISHA HA Mammography ACCESSION EXAM DATE/TIME PROCEDURE ORDERING PROVIDER [id number] 07/07/2021 10:47 EDT MG Breast Tomosynthesis MD GAY DARRELL BI Scr [place] CPT code 05320 57386 Reason For Exam (MG Breast Tomosynthesis BI [...] MG breast tomosynthesis bl scr performed at [facility]. July 03, 2019, bilateral MG breast tomosynthesis bl scr performed at [facility]. July 02, 2018, bilateral MG breast tomosynthesis bl scr performed at [facility]. TISSUE DENSITY: BIRADS B - There are [...] images: BB's = Nipples; skin lesions Open [place] = Palpable Line = Scar 2D digital [...] Mammography ACCESSION EXAM DATE/TIME PROCEDURE ORDERING PROVIDER [id number] 07/07/2021 10:47 EDT MG Breast Tomosynthesis MD VICTOR HUGO, GEOVANI BI Scr [place] CPT code 11617 82262 Reason For Exam (MG Breast Tomosynthesis BI [...] MG breast tomosynthesis bl scr performed at [facility]. July 03, 2019, bilateral MG breast tomosynthesis bl scr performed at [facility]. July 02, 2018, bilateral MG breast tomosynthesis bl scr performed at [facility]. TISSUE DENSITY: BIRADS B - There are [...] images: BB's = Nipples; skin lesions Open [place] = Palpable Line = Scar 2D digital [...] Gay on 06-15-2021 [facility]: [id number] ACCESSION EXAM DATE/TIME PROCEDURE ORDERING PROVIDER [id number] 06/15/2021 12:57 EDT US Abdomen Complete MD VICTOR HUGO, GEOVANI GARRETT CPT code 07243 Reason For Exam (US Abdomen Complete) ruq [...] [facility] Incoming Radiology Results From [facility] - 06/15/2021 1:16 PM EDT [facility]: [id number] Ultrasound ACCESSION EXAM DATE/TIME PROCEDURE ORDERING PROVIDER [id number] 06/15/2021 12:57 EDT US Abdomen Complete MD GAY DARRELL [place] CPT code 07566 Reason For Exam (US Abdomen Complete) ruq [...] and Time: 06/15/2021 1:16 [facility] Work Phone: [facility] Work Phone: [facility] ISAAC DIGITAL SCREEN BILA TERALon 07-06-2020 Patient Name: AISHA HA ---Mammography--- Exam Date/Time 07/06/2020 11:19:46 EDT Exam MG Breast Tomosynthesis BI Scr Ordering Physician MD VICTOR HUGO, GEOVANI GARRETT Accession Number [id number] CPT4 Codes 84262 (MG Breast Tomosynthesis Scr Bl), 36374 (MG MAMMO 2D SCREENING) Reason For Exam [...] MG breast tomosynthesis bl scr performed at [facility]. July 02, 2018, bilateral MG breast tomosynthesis bl scr performed at [facility]. April 27, 2016, bilateral screening mammogram performed at [facility]. TISSUE DENSITY: BIRADS B - There are scattered fibroglandular densities. FINDINGS: No suspicious masses, architectural distortions or suspiciously clustered microcalcifications are identified. There is no evidence of skin thickening or nipple retraction. There are no significant changes when compared with prior studies. Markings on images: BB's = Nipples; skin lesions Open [place] = Palpable Line = Scar 2D digital [...] 07/06/2020 3:42 pm Signed by: MD NICK, [place]ANew [place], [place] [facility] [place] Incoming Radiology Results From [facility] - 07/06/2020 4:02 PM EDT Patient Name: AISHA HA ---Mammography--- Exam Date/Time 07/06/2020 11:19:46 EDT Exam MG Breast Tomosynthesis BI Scr Ordering Physician MD VICTOR HUGO, GEOVANI GARRETT Accession Number [id number] CPT4 Codes 34646 (MG Breast Tomosynthesis Scr Bl), 70093 (MG MAMMO 2D SCREENING) Reason For Exam [...] MG breast tomosynthesis bl scr performed at [facility]. July 02, 2018, bilateral MG breast tomosynthesis bl scr performed at [facility]. April 27, 2016, bilateral screening mammogram performed at [facility]. TISSUE DENSITY: BIRADS B - There are scattered fibroglandular densities. FINDINGS: No suspicious masses, architectural distortions or suspiciously clustered microcalcifications are identified. There is no evidence of skin thickening or nipple retraction. There are no significant changes when compared with prior studies. Markings on images: BB's = Nipples; skin lesions Open [place] = Palpable Line = Scar 2D digital [...] pm Signed by: MD NICK, SILVIA [place], [place] C-Reactive Proteinon 020 CRP [Mass/Vol] 46.3 mg/L High 0 - 6 mg/L [place], [place] Comment on above: . CKon 04-10-2020 Total CK 65 U/L 30 - 170 U/L [place] COVID-19on 04-10-2020 SARS-CoV-2 Not Detected Expected Result: Not Detected _ Real-time, RT-PCR performed on the [employer] System by the [facility]. Negative results do not preclude SARS-CoV-2 infection and should not be used as the sole basis for treatment or other patient management decisions. This assay was developed by [employer] and distributed under an Emergency Use Authorization (EUA) granted by the FDA for the qualitative detection of SARS-CoV-2 nucleic acid. [place], [place] Test Performed by [facility], [address] [place] [address] Specimen Source Comment:Nasopharyngeal Swab [place], [place] CT Abdomen Pelvis W Contrast on 04-10-2020 Patient Name: AISHA HA ---CT--- Exam Date/Time 04/10/2020 16:11:[address] Abdomen/Pelvis w/ IV Contrast (IV Onl Ordering Physician MD CAIO, MANDEEP Accession Number [id number] CPT4 Codes 28326 (CT Abdomen/Pelvis w/ IV Contrast (IV Onl), Q9967 (CT ISOVUE 370MG/ML&[id number] &1) Reason For Exam Nausea Report CLINICAL [...] with clinical parameters. Report Dictated on Workstation: [facility] --- Final --- Dictating Physician: MD MOONEY HARLAN Signed Date and Time: 04/10/2020 4:24 pm Signed by: MD MOONEY HARLAN Transcribed Date and Time: 04/10/2020 4:25 [place], [place] Joe, [facility] Incoming Radiology Results From [facility] - 04/10/2020 4:25 PM EDT Patient Name: AISHA HA ---CT--- Exam Date/Time 04/10/2020 16:11:[address] Abdomen/Pelvis w/ IV Contrast (IV Onl Ordering Physician MD CAIO, MANDEEP Accession Number [id number] CPT4 Codes 69349 (CT Abdomen/Pelvis w/ IV Contrast (IV Onl), Q9967 (CT ISOVUE 370MG/ML&[id number] &1) Reason For Exam Nausea Report CLINICAL [...] parameters. Report Dictated on Workstation: [facility] --- Final --- Dictating Physician: MD MOONEY HARLAN Signed Date and Time: 04/10/2020 4:24 pm Signed by: MD MOONEY HARLAN Transcribed Date and Time: 04/10/2020 4:25 [place] Comprehensive Metabolic Pane [place] 04-10-2020 Albumin [Mass/Vol] 4.2 g/dL 3.5 - 5 g/dL [place], [place] ALP [Catalytic activity/Vol] 165 U/L High 38 - 126 U/L [place] ALT [Catalytic activity/Vol] 40 U/L High 0 - 34 U/L [place] Comment on above: The ALT test is perf ormed by an updated assay method. Please note that the reference intervals have been changed and are now sex specific. Anion gap [Moles/Vol] 13 mmol/L [place], [place] AST [Catalytic activity/Vol] 53 U/L High 15 - 46 U/L [place] Bilirubin Ql (U) 0.4 mg/dL 0.2 - 1.3 mg/dL [place] Calcium [Mass/Vol] 9.1 mg/dL 8.4 - 10. 4 mg/dL [place] Chloride [Moles/Vol] 80 mmol/L Low 98 - 10 7 mmol/L [place] CO2 [Moles/Vol] 26 mmol/L 22 - 30 mmol/L [place] Creatinine [Mass/Vol] 0.39 mg/dL Low 0.52 - 1.25 mg/dL [place] EGFR IF NonAfrican Portuguese >90.0 >60 mL/min [place] Comment on above: KDIGO guidelines pro [...] MDRD (S/P/Bld) [Vol rate/Area] mL/min/{1.73_m2} >60 mL/min [place] Glucose [Mass/Vol] 86 mg/dL 70 - 100 mg/dL [place] Potassium [Moles/Vol] 4.3 mmol/L 3.5 - 5.1 mmol/L [place] Protein [Mass/Vol] 7.8 g/dL 6.3 - 8.2 g/dL [place] Sodium [Moles/Vol] 119 mmol/L Critically low 135 - 1 45 mmol/L [place] Urea nitrogen [Mass/Vol] 6 mg/dL Low 7 - 20 mg/dL [place] Hemogram (CBC) w/Auto Diffon 04-10-2020 Absolute Baso # 0.1 10*3/uL 0 - 0.2 10*3/uL [place] Absolute Neut # 5.6 10*3/uL 1.8 - 7 10*3/uL [place] Basophils/100 WBC (Bld) 0.8 % 0 - 2 % [place], [place] Eosinophils (Bld) [#/Vol] 0.1 10*3/uL 0 - 0.5 10*3/uL [place] Eosinophils/100 WBC (Bld) 0.7 % Low 1 - 6 % [place] Erythrocyte distribution width (RBC) [Ratio] 12.4 % 11.5 - 14.5 % [place] Granulocytes/100 WBC (Bld) 70.3 % 40 - 80 % [place] Hematocrit (Bld) [Volume fraction] 37.3 % 35 - 47 % [place] Hemoglobin (Bld) [Mass/Vol] 13.8 g/dL 11.7 - 16 g/dL [place] Interpretation and review of laboratory results Abnormal [place] Lymphocytes (Bld) [#/Vol] 1.8 10*3/uL 1 - 4.3 10*3/uL [place] Lymphocytes/100 WBC (Bld) 22.9 % 20 - 40 % [place] MCH (RBC) [Entitic mass] 34.0 pg 26 - 34 pg [place] MCHC (RBC) [Mass/Vol] 36.9 % High 32 - 36 % [place], [place] MCV (RBC) [Entitic vol] 92.3 fL 79 - 98 fL [place], [place] Monocytes (Bld) [#/Vol] 0.4 10*3/uL 0 - 0.8 10*3/uL [place] Monocytes/100 WBC (Bld) 5.3 % 2 - 10 % [place] Platelet mean volume (Bld) [Entitic vol] 6.7 fL Low 7.4 - 10.4 fL [place] Platelets (Bld) [#/Vol] 311 10*3/uL 140 - 440 10*3/uL [place] RBC (Bld) [#/Vol] 4.04 10*6/uL 3.8 - 5.2 10*6/uL [place] WBC (Bld) [#/Vol] 8.0 10*3/uL 3.6 - 10.7 10*3/uL [place] Test Performed by [facility], [address] , [address] Lactate Dehydrogenaseon 03-23 LD 160 U/L 50 - 170 U/L [place], [place] Lactic Acid, Plasmaon 2019 Lactate [Moles/Vol] 1 mmol/L 0.7 - 2 mmol/L [place] Test Performed by [facility], [address] , [address] Lipaseon 04-10-2020 Lipase [Catalytic activity/Vol] 95 U/L 23 - 300 U/L [place] Otheron 04-10-2020 Interpretation and review of laboratory results Abnormal [place] Test Performed by [facility], [address] , [address] Test Performed by [facility], [address] , [address] Protime-INRon 04-10-2020 INR Coag (PPP) [Relative time] 0.9 {INR} [place] Comment on above: Recommended Anticoag ulant [...] [Time] 10.3 s 9 - 12 s [place], [place] Comment on above: . Sedimentation Rateon 06-19-2 020 Interpretation and review of laboratory results Abnormal [place] Sed Rate 65 mm/h High 0 - 20 mm/h [place] Urinalysison 04-10-2020 Appearance (U) Clear Clear NA [place] Comment on above: . Bilirubin Urine Negative Negative mg/dL [place] Comment on above: . Color (U) COLORLESS Lt. Yellow NA [place] Comment on above: . Glucose, Ur Normal Normal (<70) mg/dL [place] Comment on above: . Interpretation and review of laboratory results Abnormal [place] Ketones Ql (U) Negative Negative mg/dL [place] Comment on above: . LEUKOCYTES, UA Negative Negative Anita/uL [place] Comment on above: . Nitrite, Urine Negative Negative NA [place] Comment on above: . Occult Blood,Urine Negative Negative mg/dL [place] Comment on above: . pH (U) 7.0 [pH] [place] Comment on above: . Protein (U) [Mass/Vol] Negative Negat jessica mg/dL [place] Comment on above: . Specific [place], Urine <1.005 Abnormal [place] Comment on above: . Urobilinogen, Urine Normal Normal ( 0-1) mg/dL [place] Comment on above: . Test Performed by [facility], [facility] [address] , [address] Basic Metabolic Panelon 11-23 Anion gap [Moles/Vol] 9 mmol/L [facility] Work Phone: Calcium [Mass/Vol] 9.5 mg/dL 8.4 - 10. 4 mg/dL [facility] Work Phone: Chloride [Moles/Vol] 101 mmol/L 98 - 10 7 mmol/L [facility] Work Phone: CO2 [Moles/Vol] 25 mmol/L 22 - 30 mmol/L [facility] Work Phone: Creatinine [Mass/Vol] 0.43 mg/dL Low 0.52 - 1.25 mg/dL [facility] Work Phone: [phone] IF NonAfrican Portuguese >60.0 >60 mL/min [facility] Work Phone: Comment on above: Source- MDRD equatio n with creatinine calibration to IDMS(NKDEP) eGFR not recommended for drug dose adjustment GFR/1.73 sq M predicted among blacks MDRD (S/P/Bld) [Vol rate/Area] mL/min/{1.73_m2} >60 mL/min [facility] Work Phone: Glucose [Mass/Vol] 115 mg/dL High 70 - 100 mg/dL [facility] Work Phone: [phone] Interpretation and review of laboratory results Abnormal [facility] Work Phone: Potassium [Moles/Vol] 3.3 mmol/L Low 3.5 - 5.1 mmol/L [facility] Work Phone: Sodium [Moles/Vol] 135 mmol/L 135 - 145 mmol/L [facility] Work Phone: Urea nitrogen [Mass/Vol] 4 mg/dL Low 7 - 20 mg/dL [facility] Work Phone: [phone] Test Performed by [facility], [facility] [address] [place] [id number] [facility] Work Phone: [phone] Hemogram (CBC) w/Auto Diffon 12-04-2019 Absolute Baso # 0.1 10*3/uL 0 - 0.2 10*3/uL [facility] Work Phone: [phone] Absolute Neut # 7.3 10*3/uL High 1.8 - 7 10*3/uL [facility] Work Phone: Basophils/100 WBC (Bld) 1.2 % 0 - 2 % S [facility] Work Phone: Eosinophils (Bld) [#/Vol] 0.1 10*3/uL 0 - 0.5 10*3/uL [facility] Work Phone: [phone] Eosinophils/100 WBC (Bld) 0.9 % Low 1 - 6 % [facility] Work Phone: Erythrocyte distribution width (RBC) [Ratio] 13.9 % 11.5 - 14.5 % [facility] Work Phone: [phone] Granulocytes/100 WBC (Bld) 75.9 % 40 - 80 % [facility] Work Phone: Hematocrit (Bld) [Volume fraction] 45.6 % 35 - 47 % [facility] Work Phone: Hemoglobin (Bld) [Mass/Vol] 15.9 g/dL 11.7 - 16 g/dL [facility] Work Phone: Interpretation and review of laboratory results Abnormal [facility] Work Phone: Lymphocytes (Bld) [#/Vol] 1.6 10*3/uL 1 - 4.3 10*3/uL [facility] Work Phone: Lymphocytes/100 WBC (Bld) 16.9 % Low 20 - 40 % [facility] Work Phone: MCH (RBC) [Entitic mass] 37.0 pg High 26 - 34 pg [facility] Work Phone: MCHC (RBC) [Mass/Vol] 34.8 % 32 - 36 % [facility] Work Phone: MCV (RBC) [Entitic vol] 106.3 fL High 79 - 98 fL [facility] Work Phone: Monocytes (Bld) [#/Vol] 0.5 10*3/uL 0 - 0.8 10*3/uL [facility] Work Phone: Monocytes/100 WBC (Bld) 5.1 % 2 - 10 % [facility] Work Phone: Platelet mean volume (Bld) [Entitic vol] 8.0 fL 7.4 - 10.4 fL [facility] Work Phone: Platelets (Bld) [#/Vol] 258 10*3/uL 140 - 440 10*3/uL [facility] Work Phone: RBC (Bld) [#/Vol] 4.29 10*6/uL 3.8 - 5.2 10*6/uL [facility] Work Phone: WBC (Bld) [#/Vol] 9.6 10*3/uL 3.6 - 10.7 10*3/uL [facility] Work Phone: [phone] Otheron 12-04-2019 Test Performed by [facility], [address] , [place] [id number] [facility] Work Phone: [phone] RBC MORPHOLOGYon 12-04-2019 RBC morphology finding Nom (Bld) ABNORMAL [facility] Work Phone: [phone] Sodium [Moles/Vol] Moderate [facility] Work Phone: [phone] Rapid influenza A/B antigens on 12-04-2019 INFLUENZA A Not Detected Not Detected NA [facility] Work Phone: [phone] INFLUENZA B Not Detected Not Detected NA [facility] Work Phone: [phone] Comment on above: Method: Isothermal n ucleic acid amplification technology. Test Performed by [facility], [address] , [place] [address] [facility] Work Phone: [phone] Troponin x1on 12-04-2019 Troponin I.cardiac [Mass/Vol] 0.013 ng/mL 0 - 0.034 ng/mL [facility] Work Phone: Comment on above: . Test Performed by [facility], [address] [place] [address] [facility] Work Phone: XR CHEST STANDARD (2 VW)on 0 12-04-2019 [facility], [facility] In[facility] Results From [facility] - 12/04/2019 10:15 AM EST Patient Name: AISHA HA ---Diagnostic Radiology--- Exam Date/Time 12/04/2019 09:56:03 EST Exam CR Chest PA/LAT Ordering Physician MD KEBEDE VIJAY Accession Number [id number] CPT4 Codes 39227 () Reason For Exam cough Report PA [...] Ordering Physician MD KEBEDE VIJAY Accession Number [id number] CPT4 Codes 14009 () Reason For Exam cough Report PA [...] Physician MD CORREA MATTHEW PATRICK Accession Number [id number] CPT4 Codes 31296 () Reason For Exam ABNORMAL LIVER FUNCTION TESTS Report ULTRASOUND COMPLETE ABDOMEN CLINICAL INDICATION: Elevated LFTs TECHNIQUE: Ultrasound of the complete abdomen COMPARISON: None FINDINGS: Liver: Generalized increased echogenicity corresponding to fatty infiltration. Normal size and contour. No focal lesion identified. Gallbladder: Normal. No pericholecystic inflammatory change. Negative sonographic Rivera sign reported by the echo technologist. Bile ducts: No intrahepatic and extrahepatic [...] hepatic lesion identified. Report Dictated on Workstation: [email or web address] --- Final --- Dictating Physician: MD CARMONA JASON Signed Date and Time: 05/31/2019 10:50 am Signed by: MD CARMONA JASON Transcribed Date and Time: 05/31/2019 10:51 [place], [place] Joe, [facility] Incoming Radiology Results From [facility] - 05/31/2019 10:52 AM EDT Patient Name: AISHA HA ---Ultrasound--- Exam Date/Time 05/31/2019 10:41:35 EDT Exam US Abdomen Complete Ordering Physician MD CORREA MATTHEW PATRICK Accession Number [id number] CPT4 Codes 76674 () Reason For Exam ABNORMAL LIVER FUNCTION TESTS Report ULTRASOUND COMPLETE ABDOMEN CLINICAL INDICATION: Elevated LFTs TECHNIQUE: Ultrasound of the complete abdomen COMPARISON: None FINDINGS: Liver: Generalized increased echogenicity corresponding to fatty infiltration. Normal size and contour. No focal lesion identified. Gallbladder: Normal. No pericholecystic inflammatory change. Negative sonographic Rivera sign reported by the echo technologist. Bile ducts: No intrahepatic and extrahepatic [...] JASON Transcribed Date and Time: 05/31/2019 10:51 [place], [place] Clinical Summary: HMSPatient IDon 04-24-2018 OOP Invalid Interpretation Code [facility] Work Phone: Office Visit: Postop - subse quent visit, Rm: 1on 04-24-2018 NEGATED: Highlighted rowDocumentation of current medications (procedure) Done Invalid Interpretation Code [facility] Work Phone: NEGATED: Highlighted rowSmoking cessation education (procedure) Yes Invalid Interpretation Code [facility] Work Phone: Otheron 01-05-2007 CONVERTED ELECTRONIC SIGNATURE TOM PHILLIPS M.D. 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 (LEFT L5-S1 MICRODISCECTOMY). CONVERTED ORDERING PROVIDER Ordering Provider: ARIE SALGADO Vital Signs Date Time Vital Sign Value Performing Clinician Facility 07-21-2025 16:58-0400 Body temperature 98.2 [degF] Dr. Geovani Gay MD Work Phone: [facility] 07-21-2025 16:58-0400 Diastolic blood pressure 57 mm[Hg] Dr. Geovani Gay MD Work Phone: [facility] 07-21-2025 16:58-0400 Heart rate 76 /min Dr. Geovani Gay MD Work Phone: [facility] 07-21-2025 16:58-0400 Respiratory rate 20 /min Dr. Geovani Gay MD Work Phone: [facility] 07-21-2025 16:58-0400 SaO2% (BldA) [Mass fraction] 96 % Dr. Geovani Gay MD Work Phone: [facility] 07-21-2025 16:58-0400 Systolic blood pressure 145 mm[Hg] Dr. Geovani Gay MD Work Phone: [facility] 07-21-2025 16:00-0400 Inhaled oxygen flow rate 3 L/min Dr. Geovani Gay MD Work Phone: [phone] [place] [address] 07-21-2025 12:40-0400 Body height 149.[address] Geovani Gay MD Work Phone: [facility] 07-14-2025 13:54-0400 Body mass index (BMI) [Ratio] 32.3 kg/m2 Dr. Geovani Gay MD Work Phone: [facility] 07-14-2025 13:54-0400 Body temperature 96.8 [degF] Dr. Geovani Gay MD Work Phone: [facility] 07-14-2025 13:54-0400 Body weight 72.[address] Geovani Gay MD Work Phone: [facility] 07-14-2025 13:54-0400 Diastolic blood pressure 61 mm[Hg] Dr. Geovani Gay MD Work Phone: [facility] 07-14-2025 13:54-0400 Heart rate 81 /min Dr. Geovani Gay MD Work Phone: [facility] 07-14-2025 13:54-0400 Inhaled oxygen flow rate 3 L/min Dr. Geovani Gay MD Work Phone: [facility] 07-14-2025 13:54-0400 Respiratory rate 14 /min Dr. Geovani Gay MD Work Phone: [facility] 07-14-2025 13:54-0400 SaO2% (BldA) [Mass fraction] 97 % Dr. Geovani Gay MD Work Phone: [facility] 07-14-2025 13:54-0400 Systolic blood pressure 144 mm[Hg] Dr. Geovani Gay MD Work Phone: [phone])973-197437 [place] [address] 07-07-2025 16:03-0400 Body height 151.[address] Geovani Gay MD Work Phone: [phone] [place] [address] 07-07-2025 16:02-0400 Body mass index (BMI) [Ratio] 31.6 kg/m2 Dr. Geovani Gay MD Work Phone: [phone])998-610137 [place] [address] 07-07-2025 16:02-0400 Body temperature 98.8 [degF] Dr. Geovani Gay MD Work Phone: [phone])746-677537 [place] [address] 07-07-2025 16:02-0400 Body weight 73.[address] Geovani Gay MD Work Phone: 0(752)213-727437 [place] [address] 07-07-2025 16:02-0400 Diastolic blood pressure 76 mm[Hg] Dr. Geovani Gay MD Work Phone: 0(555)[phone] [place] [address] 07-07-2025 16:02-0400 Heart rate 80 /min Dr. Geovani Gay MD Work Phone: 1(794)887-171637 [place] [address] 07-07-2025 16:02-0400 Respiratory rate 18 /min Dr. Geovani Gay MD Work Phone: [facility] 07-07-2025 16:02-0400 SaO2% (BldA) [Mass fraction] 94 % Dr. Geovani Gay MD Work Phone: [facility] 07-07-2025 16:02-0400 Systolic blood pressure 126 mm[Hg] Dr. Geovani Gay MD Work Phone: [facility] 05-07-2025 09:37-0400 Body height 152.4 cm Gena Jones MD Work Phone: [facility] 05-07-2025 09:37-0400 Body mass index (BMI) [Ratio] 29.88 kg/m2 Gena Jones MD Work Phone: [facility] 05-07-2025 09:37-0400 Body temperature 96.91 [degF] Gena Jones MD Work Phone: [facility] 05-07-2025 09:37-0400 Body weight 69.4 kg Gena Jones MD Work Phone: [facility] 05-07-2025 09:37-0400 Diastolic blood pressure 60 mm[Hg] Gena Jones MD Work Phone: [facility] 05-07-2025 09:37-0400 Heart rate 81 /min Gena Jones MD Work Phone: [facility] 05-07-2025 09:37-0400 Respiratory rate 20 /min Gena Jones MD Work Phone: [facility] 05-07-2025 09:37-0400 SaO2% (BldA) [Mass fraction] 99 % Gena Jones MD Work Phone: [facility] 05-07-2025 09:37-0400 Systolic blood pressure 168 mm[Hg] Gena Jones MD Work Phone: [facility] 04-07-2025 10:05-0400 Body height 152.4 cm Linda Gonzales ADJUSTO WRITER OPERATOR - DIRECTOR HR COMMUNICATIONS Work Phone: [facility] 04-07-2025 10:05-0400 Body mass index (BMI) [Ratio] 30.04 kg/m2 Linda Gonzales ADJUSTO WRITER OPERATOR - DIRECTOR HR COMMUNICATIONS Work Phone: [facility] 04-07-2025 10:05-0400 Body weight 69.76 kg Linda Gonzales ADJUSTO WRITER OPERATOR - DIRECTOR HR COMMUNICATIONS Work Phone: [facility] 04-07-2025 10:05-0400 Diastolic blood pressure 61 mm[Hg] Linda Gonzales ADJUSTO WRITER OPERATOR - DIRECTOR HR COMMUNICATIONS Work Phone: [facility] 04-07-2025 10:05-0400 Heart rate 79 /min Linda Gonzales ADJUSTO WRITER OPERATOR - DIRECTOR HR COMMUNICATIONS Work Phone: [facility] 04-07-2025 10:05-0400 SaO2% (BldA) [Mass fraction] 94 % Linda Gonzales ADJUSTO WRITER OPERATOR - DIRECTOR HR COMMUNICATIONS Work Phone: [facility] Comment on above: 3 L 04-07-2025 10:05-0400 Systolic blood pressure 100 mm[Hg] Linda Christian ADJUSTO WRITER OPERATOR - DIRECTOR HR COMMUNICATIONS Work Phone: [facility] 03-25-2025 16:44-0400 Body temperature 97 [degF] Dr. Geovani Gay MD Work Phone: [facility] 03-25-2025 16:44-0400 Diastolic blood pressure 75 mm[Hg] Dr. Geovani Gay MD Work Phone: [facility] 03-25-2025 16:44-0400 Heart rate 99 /min Dr. Geovani Gay MD Work Phone: [facility] 03-25-2025 16:44-0400 Inhaled oxygen flow rate 2.5 L/min Dr. Geovani Gay MD Work Phone: [facility] 03-25-2025 16:44-0400 Respiratory rate 16 /min Dr. Geovani Gay MD Work Phone: [facility] 03-25-2025 16:44-0400 SaO2% (BldA) [Mass fraction] 97 % Dr. Geovani Gay MD Work Phone: [facility] 03-25-2025 16:44-0400 Systolic blood pressure 152 mm[Hg] Dr. Geovani Gay MD Work Phone: [facility] 03-25-2025 12:15-0400 Body height 151.[address] Geovani Gay MD Work Phone: [facility] 03-25-2025 12:15-0400 Body mass index (BMI) [Ratio] 30.9 kg/m2 Dr. Geovani Gay MD Work Phone: [facility] 03-25-2025 12:15-0400 Body weight 71.[address] Geovani Gay MD Work Phone: [facility] 03-20-2025 22:10-0400 Diastolic blood pressure 68 mm[Hg] Dr. Geovani Gay MD Work Phone: [facility] 03-20-2025 22:10-0400 Heart rate 85 /min Dr. Geovani Gay MD Work Phone: [facility] 03-20-2025 22:10-0400 Inhaled oxygen flow rate 3 L/min Dr. Geovani Gay MD Work Phone: [facility] 03-20-2025 22:10-0400 Respiratory rate 16 /min Dr. Geovani Gay MD Work Phone: [facility] 03-20-2025 22:10-0400 SaO2% (BldA) [Mass fraction] 95 % Dr. Geovani Gay MD Work Phone: [facility] 03-20-2025 22:10-0400 Systolic blood pressure 162 mm[Hg] Dr. Geovani Gay MD Work Phone: [facility] 03-20-2025 21:25-0400 Body temperature 99.5 [degF] Dr. Geovani Gay MD Work Phone: [facility] 03-20-2025 17:04-0400 Body height 152.[address] Geovani Gay MD Work Phone: [facility] 03-04-2025 11:47-0400 Diastolic blood pressure 70 mm[Hg] Geovani Gay MD Work Phone: [facility] 03-04-2025 11:47-0400 Heart rate 60 /min Geovani Gay MD Work Phone: [facility] 03-04-2025 11:47-0400 Systolic blood pressure 136 mm[Hg] Geovani Gay MD Work Phone: [facility] 03-04-2025 11:14-0400 Body height 152.4 cm Geovani Gay MD Work Phone: [facility] 03-04-2025 11:14-0400 Body mass index (BMI) [Ratio] 30.66 kg/m2 Geovani Gay MD Work Phone: [facility] 03-04-2025 11:14-0400 Body weight 71.22 kg Geovani Gay MD Work Phone: [facility] 03-04-2025 11:14-0400 SaO2% (BldA) [Mass fraction] 92 % Geovani Gay MD Work Phone: [facility] 02-18-2025 10:47-0400 Diastolic blood pressure 54 mm[Hg] Geovani Gay MD Work Phone: [facility] 02-18-2025 10:47-0400 Heart rate 80 /min Geovani Gay MD Work Phone: [facility] 02-18-2025 10:47-0400 Systolic blood pressure 102 mm[Hg] Geovani Gay MD Work Phone: [facility] 02-18-2025 10:21-0400 Body height 152.4 cm Geovani Gay MD Work Phone: [facility] 02-18-2025 10:21-0400 Body mass index (BMI) [Ratio] 30 kg/m2 Geovani Gay MD Work Phone: [facility] 02-18-2025 10:21-0400 Body temperature 98.2 [degF] Geovani Gay MD Work Phone: [facility] 02-18-2025 10:21-0400 Body weight 69.67 kg Geovani Gay MD Work Phone: [facility] 02-18-2025 10:21-0400 SaO2% (BldA) [Mass fraction] 95 % Geovani Gay MD Work Phone: [facility] 02-06-2025 15:13-0400 Diastolic blood pressure 66 mm[Hg] Geovani Gay MD Work Phone: [facility] 02-06-2025 15:13-0400 Heart rate 80 /min Geovani Gay MD Work Phone: [facility] 02-06-2025 15:13-0400 Systolic blood pressure 116 mm[Hg] Geovani Gay MD Work Phone: [facility] 02-06-2025 14:52-0400 Body height 152.4 cm Geovani Gay MD Work Phone: [facility] 02-06-2025 14:52-0400 Body mass index (BMI) [Ratio] 30.08 kg/m2 Geovani Gay MD Work Phone: [facility] 02-06-2025 14:52-0400 Body weight 69.85 kg Geovani Gay MD Work Phone: [facility] 02-06-2025 14:52-0400 SaO2% (BldA) [Mass fraction] 94 % Geovani Gay MD Work Phone: [facility] 01-09-2025 14:44-0400 Respiratory rate 18 /min Elina Bridenthal ADJUSTO WRITER OPERATOR - DIRECTOR HR COMMUNICATIONS Work Phone: [facility] 01-09-2025 14:44-0400 SaO2% (BldA) [Mass fraction] 95 % Elina Bridenthal ADJUSTO WRITER OPERATOR - DIRECTOR HR COMMUNICATIONS Work Phone: [facility] Comment on above: 2.5 L, after nebuliz er treatment 01-09-2025 14:20-0400 Diastolic blood pressure 85 mm[Hg] Elina Bridenthal ADJUSTO WRITER OPERATOR - DIRECTOR HR COMMUNICATIONS Work Phone: [facility] 01-09-2025 14:20-0400 Heart rate 85 /min Elina Bridenthal ADJUSTO WRITER OPERATOR - DIRECTOR HR COMMUNICATIONS Work Phone: [facility] Comment on above: apical 01-09-2025 14:20-0400 Systolic blood pressure 138 mm[Hg] Elina Edwards ADJUSTO WRITER OPERATOR - DIRECTOR HR COMMUNICATIONS Work Phone: [facility] 01-09-2025 13:56-0400 Body height 152.4 cm Elina Crockeral ADJUSTO WRITER OPERATOR - DIRECTOR HR COMMUNICATIONS Work Phone: [facility] 01-09-2025 13:56-0400 Body mass index (BMI) [Ratio] 29.26 kg/m2 Elina Kimenthal ADJUSTO WRITER OPERATOR - DIRECTOR HR COMMUNICATIONS Work Phone: [facility] 01-09-2025 13:56-0400 Body temperature 97.81 [degF] Elina Crockeral ADJUSTO WRITER OPERATOR - DIRECTOR HR COMMUNICATIONS Work Phone: [facility] 01-09-2025 13:56-0400 Body weight 67.95 kg Elina Crockeral ADJUSTO WRITER OPERATOR - DIRECTOR HR COMMUNICATIONS Work Phone: [facility] 09-12-2024 11:36-0500 Body height 152.4 cm Geovani Gay MD Work Phone: [facility] 09-12-2024 11:36-0500 Body mass index (BMI) [Ratio] 27.93 kg/m2 Geovani Gay MD Work Phone: [facility] 09-12-2024 11:36-0500 Body weight 64.86 kg Geovani Gay MD Work Phone: [facility] 09-12-2024 11:36-0500 Diastolic blood pressure 56 mm[Hg] Geovani Gay MD Work Phone: [facility] 09-12-2024 11:36-0500 Heart rate 82 /min Geovani Gay MD Work Phone: [facility] 09-12-2024 11:36-0500 SaO2% (BldA) [Mass fraction] 94 % Geovani Gay MD Work Phone: [facility] 09-12-2024 11:36-0500 Systolic blood pressure 128 mm[Hg] Geovani Gay MD Work Phone: [facility] 08-19-2024 11:02-0400 Body height 152.4 cm Geovani Gay MD Work Phone: [facility] 08-19-2024 11:02-0400 Body mass index (BMI) [Ratio] 26.95 kg/m2 Geovani Gay MD Work Phone: [facility] 08-19-2024 11:02-0400 Body weight 62.6 kg Geovani Gay MD Work Phone: [facility] 08-14-2024 14:11-0400 Diastolic blood pressure 58 mm[Hg] Linda Gonzales ADJUSTO WRITER OPERATOR - DIRECTOR HR COMMUNICATIONS Work Phone: [facility] 08-14-2024 14:11-0400 Systolic blood pressure 132 mm[Hg] Linda Gonzales ADJUSTO WRITER OPERATOR - DIRECTOR HR COMMUNICATIONS Work Phone: [facility] 08-14-2024 13:55-0400 Body height 152.4 cm Linda Gonzales ADJUSTO WRITER OPERATOR - DIRECTOR HR COMMUNICATIONS Work Phone: [facility] 08-14-2024 13:55-0400 Body mass index (BMI) [Ratio] 27.03 kg/m2 Linda Gonzales ADJUSTO WRITER OPERATOR - DIRECTOR HR COMMUNICATIONS Work Phone: [facility] 08-14-2024 13:55-0400 Body temperature 99.39 [degF] Linda Gonzales ADJUSTO WRITER OPERATOR - DIRECTOR HR COMMUNICATIONS Work Phone: [facility] 08-14-2024 13:55-0400 Body weight 62.78 kg Linda Gonzales ADJUSTO WRITER OPERATOR - DIRECTOR HR COMMUNICATIONS Work Phone: [facility] 08-14-2024 13:55-0400 Heart rate 72 /min Linda Gonzales ADJUSTO WRITER OPERATOR - DIRECTOR HR COMMUNICATIONS Work Phone: [facility] 08-14-2024 13:55-0400 SaO2% (BldA) [Mass fraction] 96 % Linda Gonzales ADJUSTO WRITER OPERATOR - DIRECTOR HR COMMUNICATIONS Work Phone: [facility] 06-13-2024 10:45-0400 Body height 152.4 cm Geovani Gay MD Work Phone: [facility] 06-13-2024 10:45-0400 Body mass index (BMI) [Ratio] 27.54 kg/m2 Geovani Gay MD Work Phone: [facility] 06-13-2024 10:45-0400 Body weight 63.96 kg Geovani Gay MD Work Phone: [facility] 06-13-2024 10:45-0400 Diastolic blood pressure 55 mm[Hg] Geovani Gay MD Work Phone: [facility] 06-13-2024 10:45-0400 Heart rate 79 /min Geovani Gay MD Work Phone: [facility] 06-13-2024 10:45-0400 SaO2% (BldA) [Mass fraction] 97 % Geovani Gay MD Work Phone: [facility] 06-13-2024 10:45-0400 Systolic blood pressure 129 mm[Hg] Geovani Gay MD Work Phone: [facility] 05-29-2024 10:29-0400 Diastolic blood pressure 64 mm[Hg] Linda Gonzales ADJUSTO WRITER OPERATOR - DIRECTOR HR COMMUNICATIONS Work Phone: [facility] 05-29-2024 10:29-0400 Systolic blood pressure 132 mm[Hg] Linda Gonzales ADJUSTO WRITER OPERATOR - DIRECTOR HR COMMUNICATIONS Work Phone: [facility] 05-29-2024 09:54-0400 Body height 152.4 cm Linda Gonzales ADJUSTO WRITER OPERATOR - DIRECTOR HR COMMUNICATIONS Work Phone: [facility] 05-29-2024 09:54-0400 Body mass index (BMI) [Ratio] 26.44 kg/m2 Linda Gonzales ADJUSTO WRITER OPERATOR - DIRECTOR HR COMMUNICATIONS Work Phone: [facility] 05-29-2024 09:54-0400 Body weight 61.42 kg Linda Gonzales ADJUSTO WRITER OPERATOR - DIRECTOR HR COMMUNICATIONS Work Phone: [facility] 05-29-2024 09:54-0400 Heart rate 62 /min Linda oGnzales ADJUSTO WRITER OPERATOR - DIRECTOR HR COMMUNICATIONS Work Phone: [facility] 05-29-2024 09:54-0400 SaO2% (BldA) [Mass fraction] 99 % Linda Gonzales ADJUSTO WRITER OPERATOR - DIRECTOR HR COMMUNICATIONS Work Phone: [facility] 03-28-2024 10:05-0400 Body height 152.4 cm Geovani Gay MD Work Phone: [facility] 03-28-2024 10:05-0400 Body mass index (BMI) [Ratio] 26.76 kg/m2 Geovani Gay MD Work Phone: [facility] 03-28-2024 10:05-0400 Body weight 62.14 kg Geovani Gay MD Work Phone: [facility] 03-28-2024 10:05-0400 Diastolic blood pressure 57 mm[Hg] Geovani Gay MD Work Phone: [facility] 03-28-2024 10:05-0400 Heart rate 78 /min Geovani Gay MD Work Phone: [facility] 03-28-2024 10:05-0400 SaO2% (BldA) [Mass fraction] 95 % Geovani Gay MD Work Phone: [facility] 03-28-2024 10:05-0400 Systolic blood pressure 94 mm[Hg] Geovani Gay MD Work Phone: [facility] 12-08-2023 10:29-0500 Diastolic blood pressure 71 mm[Hg] Geovani Gay MD Work Phone: [facility] 12-08-2023 10:29-0500 Heart rate 80 /min Geovani Gay MD Work Phone: [facility] 12-08-2023 10:29-0500 Systolic blood pressure 138 mm[Hg] Geovani Gay MD Work Phone: [facility] 12-08-2023 10:02-0500 Body height 152.4 cm Geovani Gay MD Work Phone: [facility] 12-08-2023 10:02-0500 Body mass index (BMI) [Ratio] 28.63 kg/m2 Geovani Gay MD Work Phone: [facility] 12-08-2023 10:02-0500 Body weight 66.5 kg Geovani Gay MD Work Phone: [facility] 12-08-2023 10:02-0500 SaO2% (BldA) [Mass fraction] 96 % Geovani Gay MD Work Phone: [facility] 10-05-2023 10:25-0500 Diastolic blood pressure 83 mm[Hg] Geovani Gay MD Work Phone: [facility] 10-05-2023 10:25-0500 Heart rate 86 /min Geovani Gay MD Work Phone: [facility] 10-05-2023 10:25-0500 SaO2% (BldA) [Mass fraction] 96 % Geovani Gay MD Work Phone: [facility] 10-05-2023 10:25-0500 Systolic blood pressure 152 mm[Hg] Geovani Gay MD Work Phone: [facility] 10-05-2023 10:01-0500 Body height 152.4 cm Geovani Gay MD Work Phone: [facility] 10-05-2023 10:01-0500 Body mass index (BMI) [Ratio] 28.71 kg/m2 Geovani Gay MD Work Phone: [facility] 10-05-2023 10:01-0500 Body temperature 98.29 [degF] Geovani Gay MD Work Phone: [facility] 10-05-2023 10:01-0500 Body weight 66.68 kg Geovani Gay MD Work Phone: [facility] 09-08-2023 09:39-0500 Body height 152.4 cm Geovani Gay MD Work Phone: [facility] 09-08-2023 09:39-0500 Body mass index (BMI) [Ratio] 28.51 kg/m2 Geovani Gay MD Work Phone: [facility] 09-08-2023 09:39-0500 Body weight 66.22 kg Geovani Gay MD Work Phone: [facility] 09-08-2023 09:39-0500 Diastolic blood pressure 73 mm[Hg] Geovani Gay MD Work Phone: [facility] 09-08-2023 09:39-0500 Heart rate 77 /min Geovani Gay MD Work Phone: [facility] 09-08-2023 09:39-0500 SaO2% (BldA) [Mass fraction] 97 % Geovani Gay MD Work Phone: [facility] 09-08-2023 09:39-0500 Systolic blood pressure 127 mm[Hg] Geovani Gay MD Work Phone: [facility] 08-17-2023 10:46-0400 Body height 152.4 cm Geovani Gay MD Work Phone: [facility] 08-17-2023 10:46-0400 Body mass index (BMI) [Ratio] 31.25 kg/m2 Geovani Gay MD Work Phone: [facility] 08-17-2023 10:46-0400 Body weight 72.58 kg Geovani Gay MD Work Phone: [facility] 06-15-2023 09:57-0400 Diastolic blood pressure 60 mm[Hg] Geovani Gay MD Work Phone: [facility] 06-15-2023 09:57-0400 Heart rate 77 /min Geovani Gay MD Work Phone: [facility] 06-15-2023 09:57-0400 SaO2% (BldA) [Mass fraction] 90 % Geovani Gay MD Work Phone: [facility] Comment on above: at rest on O2 06-15-2023 09:57-0400 Systolic blood pressure 128 mm[Hg] Geovani Gay MD Work Phone: [facility] 06-15-2023 09:19-0400 Body height 152.4 cm Geovani Gay MD Work Phone: [facility] 06-15-2023 09:19-0400 Body mass index (BMI) [Ratio] 29.18 kg/m2 Geovani Gay MD Work Phone: [facility] 06-15-2023 09:19-0400 Body weight 67.77 kg Geovani Gay MD Work Phone: [facility] 01-02-2023 11:20-0400 Body temperature 97.7 [degF] Dr. Geovani Gay Work Phone: [facility] 01-02-2023 11:20-0400 Diastolic blood pressure 50 mm[Hg] Dr. Geovani Gay Work Phone: [facility] 01-02-2023 11:20-0400 Heart rate 71 /min Dr. Geovani Gay Work Phone: [facility] 01-02-2023 11:20-0400 Respiratory rate 16 /min Dr. Geovani Gay Work Phone: [facility] 01-02-2023 11:20-0400 SaO2% (BldA) [Mass fraction] 92 % Dr. Geovani Gay Work Phone: [facility] 01-02-2023 11:20-0400 Systolic blood pressure 98 mm[Hg] Dr. Geovani Gay Work Phone: [facility] 01-02-2023 09:11-0400 Body height 152.[address] Geovani Gay Work Phone: [facility] 01-02-2023 09:11-0400 Body mass index (BMI) [Ratio] 31.4 kg/m2 Dr. Geovani Gay Work Phone: [facility] 01-02-2023 09:11-0400 Body weight [address] Geovani Gay Work Phone: [facility] 12-21-2022 14:23-0500 Body height 152.4 cm Geovani Gay MD Work Phone: [facility] 12-21-2022 14:23-0500 Body mass index (BMI) [Ratio] 32.22 kg/m2 Geovani Gay MD Work Phone: [facility] 12-21-2022 14:23-0500 Body weight 74.84 kg Geovani Gay MD Work Phone: [facility] 12-21-2022 14:23-0500 Diastolic blood pressure 59 mm[Hg] Geovani Gay MD Work Phone: [facility] 12-21-2022 14:23-0500 Heart rate 74 /min Geovani Gay MD Work Phone: [facility] 12-21-2022 14:23-0500 Systolic blood pressure 120 mm[Hg] Geovani Gay MD Work Phone: [facility] 10-27-2022 10:25-0500 Diastolic blood pressure 72 mm[Hg] Dr. Geovani Gay Work Phone: [facility] 10-27-2022 10:25-0500 Heart rate 79 /min Dr. Geovani Gay Work Phone: [facility] 10-27-2022 10:25-0500 Systolic blood pressure 124 mm[Hg] Dr. Geovani Gay Work Phone: [facility] 04-27-2022 13:29-0400 Body temperature 97.81 [degF] Bolivar Larsen MD Work Phone: [facility] 04-27-2022 13:29-0400 Diastolic blood pressure 65 mm[Hg] Bolivar Larsen MD Work Phone: [facility] 04-27-2022 13:29-0400 Heart rate 76 /min Bolivar Larsen MD Work Phone: [facility] 04-27-2022 13:29-0400 Respiratory rate 18 /min Bolivar Larsen MD Work Phone: [facility] 04-27-2022 13:29-0400 SaO2% (BldA) [Mass fraction] 93 % Bolivar Larsen MD Work Phone: [facility] 04-27-2022 13:29-0400 Systolic blood pressure 121 mm[Hg] Bolivar Larsen MD Work Phone: [facility] 04-27-2022 06:33-0400 Body height 152.4 cm Bolivar Larsen MD Work Phone: [facility] 04-27-2022 06:33-0400 Body mass index (BMI) [Ratio] 34.76 kg/m2 Bolivar Larsen MD Work Phone: [facility] 04-27-2022 06:33-0400 Body weight 80.74 kg Bolivar Larsen MD Work Phone: [facility] 04-18-2022 11:01-0400 Diastolic blood pressure 80 mm[Hg] Bolivar Larsen MD Work Phone: [facility] 04-18-2022 11:01-0400 Systolic blood pressure 157 mm[Hg] Bolivar Larsen MD Work Phone: [facility] 04-18-2022 10:14-0400 Body height 152.4 cm Bolivar Larsen MD Work Phone: [facility] 04-18-2022 10:14-0400 Body mass index (BMI) [Ratio] 34.8 kg/m2 Bolivar Larsen MD Work Phone: [facility] 04-18-2022 10:14-0400 Body temperature 97.7 [degF] Bolivar Larsen MD Work Phone: [facility] 04-18-2022 10:14-0400 Body weight 80.83 kg Bolivar Larsen MD Work Phone: [facility] 04-18-2022 10:14-0400 Heart rate 82 /min Bolivar Larsen MD Work Phone: [facility] 04-18-2022 10:14-0400 Respiratory rate 16 /min Bolivar Larsen MD Work Phone: [facility] 04-18-2022 10:14-0400 SaO2% (BldA) [Mass fraction] 93 % Bolivar Larsen MD Work Phone: [facility] 11-03-2021 14:06-0500 Body height 152.[address] Geovani Gay Work Phone: [facility] Work Phone: 11-03-2021 14:06-0500 Body mass index (BMI) [Ratio] 35.7 kg/m2 Dr. Geovani Gay Work Phone: [facility] Work Phone: 11-03-2021 14:06-0500 Body weight [address] Geovani Gay Work Phone: [facility] Work Phone: 11-03-2021 14:06-0500 Diastolic blood pressure 89 mm[Hg] Dr. Geovani Gay Work Phone: [facility] Work Phone: 11-03-2021 14:06-0500 Heart rate 72 /min Dr. Geovani Gay Work Phone: [facility] Work Phone: 11-03-2021 14:06-0500 Respiratory rate 18 /min Dr. Geovani Gay Work Phone: [facility] Work Phone: 11-03-2021 14:06-0500 SaO2% (BldA) [Mass fraction] 92 % Dr. Geovani Gay Work Phone: [facility] Work Phone: 11-03-2021 14:06-0500 Systolic blood pressure 179 mm[Hg] Dr. Geovani Gay Work Phone: [facility] Work Phone: 10-13-2021 07:55-0500 Body temperature 97.6 [degF] Dr. Geovani Gay Work Phone: [facility] Work Phone: 10-13-2021 07:55-0500 Diastolic blood pressure 86 mm[Hg] Dr. Geovani Gay Work Phone: [facility] Work Phone: 10-13-2021 07:55-0500 Heart rate 80 /min Dr. Geovani Gay Work Phone: [facility] Work Phone: 10-13-2021 07:55-0500 Respiratory rate 16 /min Dr. Geovani Gay Work Phone: [facility] Work Phone: 10-13-2021 07:55-0500 SaO2% (BldA) [Mass fraction] 92 % Dr. Geovani Gay Work Phone: [facility] Work Phone: 10-13-2021 07:55-0500 Systolic blood pressure 133 mm[Hg] Dr. Geovani Gay Work Phone: [facility] Work Phone: 09-30-2021 08:17-0500 Body mass index (BMI) [Ratio] 34.7 kg/m2 Dr. Geovani Gay Work Phone: [facility] Work Phone: 09-30-2021 08:17-0500 Body temperature 97.3 [degF] Dr. Geovani Gay Work Phone: [facility] Work Phone: 09-30-2021 08:17-0500 Body weight 80.[address] Geovani Gay Work Phone: [facility] Work Phone: 09-30-2021 08:17-0500 Diastolic blood pressure 68 mm[Hg] Dr. Geovani Gay Work Phone: [facility] Work Phone: 09-30-2021 08:17-0500 Heart rate 67 /min Dr. Geovani Gay Work Phone: [facility] Work Phone: 09-30-2021 08:17-0500 Respiratory rate 16 /min Dr. Geovani Gay Work Phone: [facility] Work Phone: 09-30-2021 08:17-0500 SaO2% (BldA) [Mass fraction] 90 % Dr. Geovani Gay Work Phone: [facility] Work Phone: 09-30-2021 08:17-0500 Systolic blood pressure 120 mm[Hg] Dr. Geovani Gay Work Phone: [facility] Work Phone: 09-23-2021 13:07-0500 Body weight 81.[address] Geovani Gay Work Phone: [facility] Work Phone: 09-23-2021 13:07-0500 Heart rate 73 /min Dr. Geovani Gay Work Phone: [facility] Work Phone: 09-23-2021 13:07-0500 SaO2% (BldA) [Mass fraction] 94 % Dr. Geovani Gay Work Phone: [facility] Work Phone: 04-10-2020 16:27-0400 BP Diastolic 66 mm[Hg] [place], [place] 04-10-2020 16:27-0400 BP Systolic 149 mm[Hg] Mandeep Parra [facility] , [place] 04-10-2020 16:27-0400 Pulse (Heart Rate) 66 /min Mandeep De Souza [facility] [place], [place] 04-10-2020 16:27-0400 Pulse Oximetry 99 % [facility] [place] 04-10-2020 16:27-0400 Respiratory Rate 14 /min Mandeep De Souza [facility] [place] 04-10-2020 14:06-0400 Body Temperature 98.4 [degF] [facility] [place] 12-04-2019 10:53-0500 BP Diastolic 71 mm[Hg] Tripp [...] Tripp Adusumilli [facility] Work Phone: NEGATED: Highlighted [id number] 13:49-0400 BMI (Body Mass Index) 37.24 kg/m2 [facility] Work Phone: NEGATED: Highlighted [id number] 13:49-0400 BP Diastolic 74 mm[Hg] [facility] Work Phone: NEGATED: Highlighted [id number] 13:49-0400 BP Systolic 115 mm[Hg] [facility] Work Phone: NEGATED: Highlighted [id number] 13:49-0400 Height [facility].4 cm [facility] Work Phone: NEGATED: Highlighted [id number] 13:49-0400 Height 152 cm [facility] Work Phone: NEGATED: Highlighted [id number] 13:49-0400 Pulse (Heart Rate) 74 /min [facility] Work Phone: NEGATED: Highlighted [id number] 13:49-0400 Weight 86.18 kg [facility] Work Phone: NEGATED: Highlighted [id number] 13:49-0400 Weight 86 kg [facility] Work Phone: Encounters Encounter Date Encounter Type Care Provider Facility Start: 09-04-2025 ambulatory Cal Bahena Facility :[facility] Start: 08-19-2025 End: 08-19-2025 ambulatory Geovani Victor Hugo Facility:[facility] Start: [facility]05[facility] Start: 07-21-2025 End: 07-21-2025 Emergency department patient visit Dr. Geovani Gay MD Work Phone: -Emergency Department Work Phone: Start: 07-14-[address] Gabino Madsen MD -[facility] Start: 07-07-[address] Gabino Madsen MD -[facility] Start: 07-07-2025 End: 07-07-[address] Gabino Madsen MD -[facility] Work Phone: Start: 07-07-2025 End: 07-07-[address] Geovani Gay MD Work Phone: -[facility] Start: 06-30-2025 End: 06-30-2025 Refill Linda Gonzales ADJUSTO WRITER OPERATOR - DIRECTOR HR COMMUNICATIONS Work Phone: [facility] Start: 06-26-2025 End: 06-26-2025 Refill Linda Gonzales ADJUSTO WRITER OPERATOR - DIRECTOR HR COMMUNICATIONS Work Phone: [facility] Comment on above: Vitamin D deficiency , unspecified Start: 05-26-2025 End: 05-28-2025 Refill Geovani Gay MD Work Phone: [facility] Start: 05-20-2025 End: 05-20-2025 Patient encounter procedure Cal Shruti DO -[facility] Work Phone: Start: 05-20-2025 End: 05-20-[address] Geovani Gay MD Work Phone: -[facility] Start: 05-20-2025 End: 05-20-2025 ambulatory Caljoni Bahena Facility:[facility] Start: 05-07-2025 End: 05-07-2025 Emergency department patient visit Gena Jones MD Work Phone: [facility] Comment on above: Sinus congestion (Pr imary Dx) Start: 04-25-2025 End: 04-25-2025 Refill Linda Gonzales ADJUSTO WRITER OPERATOR - DIRECTOR HR COMMUNICATIONS Work Phone: [facility] Comment on above: Chronic nausea Start: 04-12-2025 End: 04-14-2025 Refill Geovani Gay MD Work Phone: [facility] Comment on above: Primary hypertension Start: 04-08-2025 End: 06-08-2025 Follow-up encounter Linda Gonzales ADJUSTO WRITER OPERATOR - DIRECTOR HR COMMUNICATIONS Work Phone: [facility] Comment on above: Comprehensive metabo lic panel, Magnesium Start: 04-07-2025 End: 04-07-2025 Transitional care manage srvc 14 day discharge Linda Gonzales ADJUSTO WRITER OPERATOR - DIRECTOR HR COMMUNICATIONS Work Phone: [facility] Comment on above: Hospital discharge f ollow-up (Primary Dx); Acute on chronic respiratory failure with hypoxia (HCC); Pneumonia due to infectious organism, unspecified laterality, unspecified part of lung; Hypokalemia; Hypomagnesemia; Alcoholic cirrhosis of liver with ascites (CMS/HCC) (HCC); Dependence on continuous supplemental oxygen; Chronic obstructive pulmonary disease, unspecified COPD type (HCC) Start: 04-07-2025 End: 04-07-2025 Orders Only Linda Dailey Christian ADJUSTO WRITER OPERATOR - DIRECTOR HR COMMUNICATIONS Work Phone: [facility] Start: 03-25-2025 Non-patient / Non-visit Calmelissa Pérez [facility] Start: 03-25-2025 Non-patient / Non-visit Dr. Troy Hu [facility] Work Phone: Start: 03-24-2025 Non-patient / Non-visit Calmelissa [facility] Start: 03-24-2025 Non-patient / Non-visit Dr. Troy curry MD [facility] Work Phone: Start: 03-23-2025 End: 03-23-2025 ambulatory [facility] Start: 03-23-2025 End: 03-23-2025 Non-patient / Non-visit [facility] Work Phone: Start: 03-22-2025 Non-patient / Non-visit Dr. Troy [facility] Work Phone: Start: 03-21-2025 Non-patient / Non-visit Dr. Troy Hu [facility] Work Phone: Start: 03-20-2025 Non-patient / Non-visit Dr. Guerline Douglas MD [facility] Work Phone: Start: 03-20-2025 ambulatory [facility] Start: 03-20-2025 End: 03-25-2025 Evaluation and management of inpatient Dr. Jose Douglas MD -Pro[facility] Care Unit Work Phone: Start: 03-04-2025 End: 03-04-2025 Office outpatient visit 25 minutes Geovani Gay MD Work Phone: [facility] Comment on above: Chronic obstructive pulmonary disease, unspecified COPD type (HCC) (Primary Dx); Chronic respiratory failure with hypoxia (HCC); Nonintractable epilepsy without status epilepticus, unspecified epilepsy type (HCC); Primary hypertension; Chronic nausea; Gastroesophageal reflux disease without esophagitis; Vitamin D deficiency, unspecified; Mixed hyperlipidemia; Current smoker; Anxiety Start: 03-04-2025 End: 03-04-2025 ambulatory [facility] Start: 02-18-2025 End: 02-18-2025 Office outpatient visit 10 minutes Geovani Gay MD Work Phone: [facility] Comment on above: Glossitis (Primary D x) Start: 02-18-2025 End: 02-18-2025 ambulatory [facility] Start: 02-17-2025 End: 02-17-2025 ambulatory Silvia Wren RN [facility] Start: 02-17-2025 End: 02-17-2025 Patient encounter procedure Silvia Wren RN [facility] Start: 02-06-2025 End: 02-06-2025 Office outpatient visit 25 minutes Geovani Gay MD Work Phone: [facility] Comment on above: Incontinence overflo w, stress female (Primary Dx); Fecal smearing; Chronic respiratory failure with hypoxia (HCC); Fibromyalgia Start: 02-06-2025 End: 02-06-2025 ambulatory [facility] Start: 01-28-2025 End: 01-28-2025 ambulatory Ruperto Jenkins RN [facility] Start: 01-28-2025 End: 01-28-2025 Patient encounter procedure Ruperto Jenkins RN [facility] Start: 01-09-2025 End: 01-09-2025 Office outpatient visit 25 minutes Elina Bridenthal ADJUSTO WRITER OPERATOR - DIRECTOR HR COMMUNICATIONS Work Phone: [facility] Comment on above: COPD with acute exac erbation (HCC) (Primary Dx); Acute non-recurrent frontal sinusitis; Chronic obstructive pulmonary disease, unspecified COPD type (HCC); Moderate asthma, unspecified whether complicated, unspecified whether persistent Start: 01-09-2025 End: 01-09-2025 Patient encounter procedure Leila Dozier RN [facility] Start: 01-09-2025 End: 01-09-2025 ambulatory Leila Dozier RN [facility] Start: 12-16-2024 End: 12-16-2024 Refill Geovani Gay MD Work Phone: [facility] Start: 12-12-2024 End: 12-12-2024 Refill Geovani Gay MD Work Phone: [facility] Comment on above: Chronic obstructive pulmonary disease, unspecified (HCC) Start: 11-02-2024 End: 11-04-2024 Refill Elina Bridenthal ADJUSTO WRITER OPERATOR - DIRECTOR HR COMMUNICATIONS Work Phone: [facility] Comment on above: Chronic nausea Start: 10-25-2024 End: 10-28-2024 Refill Elina Bridenthal ADJUSTO WRITER OPERATOR - DIRECTOR HR COMMUNICATIONS Work Phone: [facility] Comment on above: Primary hypertension Start: 10-22-2024 End: 10-22-2024 Refill Geovani Gay MD [facility] Start: 10-19-2024 End: 10-21-2024 Refill Geovani Gay MD Work Phone: [facility] Comment on above: Hyperlipidemia, unsp ecified hyperlipidemia type Start: 09-12-2024 End: 09-12-2024 ambulatory [facility] Start: 09-12-2024 End: 09-12-2024 Office outpatient visit 25 minutes Geovani Gay MD Work Phone: [facility] Comment on above: Moderate asthma, uns pecified whether complicated, unspecified whether persistent (Primary Dx); Chronic obstructive pulmonary disease, unspecified COPD type (HCC); Chronic respiratory failure with hypoxia (HCC); Primary hypertension; Nonintractable epilepsy without status epilepticus, unspecified epilepsy type (HCC); Gastroesophageal reflux disease without esophagitis; Mixed hyperlipidemia; Hyponatremia Start: 08-22-2024 End: 08-22-2024 [facility] Start: 08-19-2024 End: 08-19-2024 Subsequent hospital visit by physician Geovani Gay MD Work Phone: [facility] Comment on above: Screening mammogram for breast cancer Start: 08-19-2024 End: 08-19-2024 ambulatory [facility] Start: 08-14-2024 End: 08-14-2024 Office outpatient visit 15 minutes Linda Robin CNP Work Phone: [facility] Comment on above: Sinobronchitis (Prim alida Dx); Malaise and fatigue; Acute cough; Head congestion Start: 08-14-2024 End: 08-14-2024 ambulatory [facility] Start: 07-04-2024 End: 10-03-2024 Transcribe Orders Geovani Gay MD Work Phone: [facility] Comment on above: Screening mammogram for breast cancer (Primary Dx) Start: 06-13-2024 End: 06-13-2024 Periodic preventive med est patient 40-64yrs Geovani Gay MD Work Phone: [facility] Comment on above: Chronic obstructive pulmonary disease, unspecified (HCC) (Primary Dx); Primary hypertension; Hyperlipidemia, unspecified hyperlipidemia type; Epilepsy, unspecified, not intractable, without status epilepticus (HCC); Vitamin D deficiency, unspecified; Alcoholic cirrhosis of liver with ascites (CMS/HCC) (HCC); Chronic respiratory failure with hypoxia (HCC); Hyponatremia Start: 06-11-2024 End: 06-11-2024 Refill Dania D[facility]Kav[facility] Comment on above: Vitamin D deficiency , unspecified Start: 06-06-2024 End: 06-07-2024 Refill Linda Gonzales ADJUSTO WRITER OPERATOR - DIRECTOR HR COMMUNICATIONS Work Phone: [facility] Comment on above: Osteoarthritis, unsp ecified osteoarthritis type, unspecified site Start: 05-29-2024 End: 05-29-2024 Office outpatient visit 25 minutes Linda Gonzales ADJUSTO WRITER OPERATOR - DIRECTOR HR COMMUNICATIONS Work Phone: [facility] Comment on above: Alcoholic cirrhosis of liver [...] Telephone encounter Geovani Gay MD Work Phone: [facility] Comment on above: Medication List Start: 04-05-2024 Refill Elina melgar ADJUSTO WRITER OPERATOR - DIRECTOR HR COMMUNICATIONS Work Phone: [facility] Comment on above: Primary hypertension ; Chronic obstructive pulmonary disease, unspecified (HCC) Start: 03-30-2024 Refill Linda Gonzales ADJUSTO WRITER OPERATOR - DIRECTOR HR COMMUNICATIONS Work Phone: [facility] Comment on above: Vitamin D deficiency , unspecified Start: 03-29-2024 ambulatory Elina Pedroza RN [facility] Start: 03-29-2024 Patient encounter procedure Elina Pedroza RN [facility] Start: 03-28-2024 End: 03-28-2024 Office outpatient visit 25 minutes Geovani Gay MD Work Phone: [facility] Comment on above: Chronic obstructive pulmonary disease, unspecified COPD type (HCC) (Primary Dx); Abnormal liver function tests; Hyponatremia; Falls frequently; Ascites due to chronic alcoholic hepatitis; Iron deficiency anemia, unspecified iron deficiency anemia type; Generalized weakness Start: 03-27-2024 ambulatory NONE PHYSICIAN Facility :[facility] Start: 02-17-2024 Refill Elina Briden thal ADJUSTO WRITER OPERATOR - DIRECTOR HR COMMUNICATIONS Work Phone: [facility] Start: 01-29-2024 Refill Geovani Gay MD Work Phone: [facility] Start: 01-27-2024 Refill Elina Briden thal ADJUSTO WRITER OPERATOR - DIRECTOR HR COMMUNICATIONS Work Phone: [facility] Comment on above: Primary hypertension ; Chronic nausea Start: 12-18-2023 Refill Elina Briden thal ADJUSTO WRITER OPERATOR - DIRECTOR HR COMMUNICATIONS Work Phone: [facility] Comment on above: Vitamin D deficiency , unspecified; Chronic obstructive pulmonary disease, unspecified (HCC) Start: 12-08-2023 End: 12-08-2023 Office outpatient visit 25 minutes Geovani Gay MD Work Phone: [facility] Comment on above: Chronic obstructive pulmonary disease, unspecified COPD type (HCC) (Primary Dx); Seizure disorder (CMS/HCC) (HCC); Primary hypertension; Gastroesophageal reflux disease without esophagitis; Fibromyalgia; Vitamin D deficiency; Current mild episode of major depressive disorder, unspecified whether recurrent (HCC); Anxiety; Current smoker; Mixed hyperlipidemia; Hyponatremia Start: 10-05-2023 End: 10-05-2023 Office outpatient visit 15 minutes Geovani Gay MD Work Phone: [facility] Comment on above: Acute non-recurrent pansinusitis (Primary Dx); Bronchitis; Primary hypertension Start: 10-03-2023 Refill Elina Briden thal ADJUSTO WRITER OPERATOR - DIRECTOR HR COMMUNICATIONS Work Phone: [facility] Comment on above: Vitamin D deficiency , unspecified Epilepsy, unspecifie d, not intractable, without status epilepticus (HCC) Start: 09-22-2023 Refill Geovani Gay MD Work Phone: [facility] Start: 09-10-2023 Refill Elina Morgan talia ADJUSTO WRITER OPERATOR - DIRECTOR HR COMMUNICATIONS Work Phone: [facility] Comment on above: Chronic obstructive pulmonary disease, unspecified (HCC) Start: 09-08-2023 End: 09-08-2023 Office outpatient visit 25 minutes Geovani Gay MD Work Phone: [facility] Comment on above: Chronic obstructive pulmonary disease, unspecified COPD type (HCC) (Primary Dx); Primary hypertension; Gastroesophageal reflux disease without esophagitis; Chronic nausea; Current mild episode of major depressive disorder, unspecified whether recurrent (HCC); Anxiety Start: 08-17-2023 Refill Geovani Gay MD Work Phone: [facility] Comment on above: Primary hypertension Start: 08-17-2023 End: 08-17-2023 Subsequent hospital visit by physician Geovani Gay MD Work Phone: [facility] Comment on above: Encounter for screen ing mammogram for malignant neoplasm of breast Start: 07-22-2023 Refill Linda Gonzales APRN - DIRECTOR HR COMMUNICATIONS Work Phone: [facility] Comment on above: Vitamin D deficiency , unspecified Chronic nausea Start: 06-22-2023 Refill Geovani Gay MD Work Phone: [facility] Comment on above: Epilepsy, unspecifie d, not intractable, without status epilepticus (HCC) Start: 06-22-2023 End: 06-22-2023 Subsequent hospital visit by physician Linda Gonzales ADJUSTO WRITER OPERATOR - DIRECTOR HR COMMUNICATIONS Work Phone: [facility] Comment on above: Multiple lung nodule s on CT Start: 06-18-2023 Refill Geovani Gay MD Work Phone: [facility] Comment on above: Chronic obstructive pulmonary disease, unspecified (HCC) Start: 06-15-2023 End: 06-15-2023 Patient encounter procedure Geovani Gay MD Work Phone: [facility] Work Phone: Start: 06-15-2023 End: 06-15-2023 Periodic preventive med est patient 40-64yrs Geovani Gay MD Work Phone: [facility] Comment on above: Annual physical exam [...] vaccination Start: 05-22-2023 Refill Elina Eddie melgar ADJUSTO WRITER OPERATOR - DIRECTOR HR COMMUNICATIONS Work Phone: [facility] Start: 05-07-2023 Refill Geovani Gay MD Work Phone: [facility] Start: 04-16-2023 Refill Geovani Gay MD Work Phone: [facility] Comment on above: Vitamin D deficiency , unspecified Start: 02-28-2023 Refill Elina Judyen thal ADJUSTO WRITER OPERATOR - DIRECTOR HR COMMUNICATIONS Work Phone: [facility] Comment on above: Epilepsy, unspecifie d, not intractable, without status epilepticus (HCC) Start: 01-30-2023 Refill Elina Judyen talia ADJUSTO WRITER OPERATOR - DIRECTOR HR COMMUNICATIONS Work Phone: [facility] Comment on above: Chronic nausea Start: 01-30-2023 End: 01-30-[address] Geovani Gay Work Phone: [facility] Work Phone: Start: 01-30-2023 End: 01-30-[address] Geovani Gay Work Phone: [facility], [facility] Start: 01-16-2023 End: 01-16-[address] Geovani Gay Work Phone: [facility] Start: 01-11-2023 Refill Geovani Gay MD Work Phone: [facility] Comment on above: Vitamin D deficiency , unspecified Start: 01-02-2023 Non-patient / Non-visit Dr. Crooks Work Phone: [facility] Start: 01-02-2023 End: 01-02-2023 Admission to same day surgery center Dr. Geovani Gay Work Phone: [facility] Start: 01-02-2023 End: 01-02-[address] Geovani Gay Work Phone: [facility] Work Phone: Start: 12-22-2022 Refill Geovani Gay MD Work Phone: [facility] Comment on above: Hyperlipidemia, unsp ecified hyperlipidemia type; Primary hypertension; Chronic obstructive pulmonary disease, unspecified (HCC) Start: 12-21-2022 End: 12-21-2022 Office outpatient visit 25 minutes Geovani Gay MD Work Phone: [facility] Comment on above: Seizure disorder (CM S/HCC) (HCC) (Primary Dx); Chronic obstructive pulmonary disease, unspecified COPD type (HCC); Primary hypertension; Gastroesophageal reflux disease without esophagitis; Mixed hyperlipidemia; Current mild episode of major depressive disorder, unspecified whether recurrent (HCC); Anxiety Start: 12-12-2022 Refill Geovani Gay MD Work Phone: [facility] Comment on above: Vitamin D deficiency , unspecified Start: 11-16-2022 End: 11-16-2022 Subsequent hospital visit by physician [facility] Exam Room [address] [facility] [address] Comment on above: Solitary pulmonary n odule Start: 10-27-2022 Refill Geovani Gay MD Work Phone: [facility] Start: 10-27-2022 End: 10-27-[address] Geovani Gay Work Phone: [facility] Start: 07-08-2022 ambulatory Geovani Gay [facility] Start: 07-08-2022 End: 07-08-2022 Subsequent hospital visit by physician Geovani Gay MD Work Phone: [facility] Comment on above: Arrived Start: 05-11-2022 ambulatory UNKNOWN PROVIDER [facility] Start: 05-11-2022 End: 05-11-2022 Subsequent hospital visit by physician Linda Gonzales APRN - DIRECTOR HR COMMUNICATIONS Work Phone: [facility] Comment on above: Lung nodule Start: 04-27-2022 End: 04-27-2022 ambulatory UNKNOWN PROVIDER [facility] Start: 04-27-2022 End: 04-27-2022 Subsequent hospital visit by physician Bolivar Larsen MD Work Phone: [facility] Comment on above: Calculus of gallblad afshin with acute on chronic cholecystitis without obstruction (Primary Dx) Start: 04-18-2022 ambulatory UNKNOWN PROVIDER [facility] Start: 04-18-2022 [facility] other [facility]ced[facility] Start: 04-18-2022 End: 04-18-2022 Subsequent hospital visit by physician Bolivar Larsen MD Work Phone: [facility] Pre-Admit [facility] Comment on above: Seizure disorder (HC C) Start: 01-06-2022 End: 01-06-[address] Geovani Gay Work Phone: [facility] Start: 11-03-2021 End: 11-03-[address] Geovani Gay Work Phone: [facility] Start: 10-28-2021 Non-patient / Non-visit Dr. Crooks Work Phone: [facility] Start: 10-13-2021 End: 10-13-[address] Geovani Gay Work Phone: [facility] Start: 09-30-2021 End: 09-30-[address] [facility] Start: 09-27-2021 ambulatory [facility] PROVIDER [facility] Start: 09-24-2021 Non-patient / Non-visit Dr. Crooks Work Phone: [facility] Start: 09-23-[address] Geovani Gay Work Phone: [facility] Start: 07-07-2021 End: [...] department patient visit Mandeep Parra Work Phone: [facility] Comment on above: Hyponatremia (Primar y Dx); Dehydration; COVID-19; Acute pneumonitis Start: 12-04-2019 End: 12-04-2019 Emergency department patient visit Tri[facility]ebede [facility] Comment on above: Hypertensive urgency (Primary Dx); Chest pain, unspecified type Start: 07-03-2019 End: 07-03-2019 Subsequent hospital visit by physician Jeffrey Correa Work Phone: [facility] [place] Comment on above: Arrived Start: 05-31-2019 End: 05-31-2019 Subsequent hospital visit by physician Jeffrey Correa Work Phone: [facility] Comment on above: Arrived Start: 04-24-2018 End: 04-24-2018 Patient encounter procedure Arie Clarisa Nav MANRIQUE Work Phone: [facility] Work Phone: Start: 01-03-2007 End: 01-03-2007 Patient encounter procedure Arie Salgado Work Phone: Start: 01-03-2007 Results Only Arie Clarisa Salgado Work Phone: [facility] Procedures Date Procedure Procedure Detail Performing [...] Phone: Start: 03-25-[address] Farncisco Gay MD Work Phone: Start: 03-25-2025 Serum [...] or Pulmonary Embolism (PE)[facility] 0947 Lillian Duong.RESULTS READ BACK BY SAME. [...] 08-19-2024 Screening digital breast tomosynthesis bi Geovani Gya MD Work Phone: Start: 08-14-2024 Infectious agent dna/rna influenza 1st 2 types Linda Gonzales ADJUSTO WRITER OPERATOR - DIRECTOR HR COMMUNICATIONS Work Phone: Start: 08-14-2024 Sars-cov-2 detection by dna/rna Linda Gonzales ADJUSTO WRITER OPERATOR - DIRECTOR HR COMMUNICATIONS Work Phone: Start: 05-29-2024 Lipid 1996 panel - Serum or Plasma Linda Gonzales ADJUSTO WRITER OPERATOR - DIRECTOR HR COMMUNICATIONS Work Phone: Start: 08-17-2023 Mammography Geovani Gay MD Work Phone: Start: 06-15-2023 Lipid 1996 panel - Serum or Plasma Francisco Gay MD Work Phone: Start: 01-02-2023 End: 01-02-[address] Geovani Gay Work Phone: Start: 11-16-2022 CT Chest for screening WO contrast Linda Gonzales ADJUSTO WRITER OPERATOR - DIRECTOR HR COMMUNICATIONS Work Phone: Start: 07-08-2022 End: 07-08-2022 Screening [...] Screening for malign ant neoplasm of colon [facility] Start: 05-29-2029 Lipid panel Lipid Panel [facility] Start: 06-15-2028 Lipid panel Lipid Panel [facility] Start: 06-15-2028 Pneumococcal Vaccine : 50+ Years (3 of 3 - PCV20 or PCV21) Pneumococcal Vaccine: 50+ Years (3 of 3 - PCV20 or PCV21) [facility] Start: 06-15-2028 Pneumococcal Vaccine : Pediatrics (0 to 5 Years) and At-Risk Patients (6 to 64 Years) (3 - PPSV23 if available, else PCV20) Pneumococcal Vaccine: Pediatrics (0 to 5 Years) and At-Risk Patients (6 to 64 Years) (3 - PPSV23 if available, else PCV20) [facility] Start: 06-15-2028 Pneumococcal Vaccine : Pediatrics (0 to 5 Years) and At-Risk Patients (6 to 64 Years) (3 - PPSV23 or PCV20) Pneumococcal Vaccine: Pediatrics (0 to 5 Years) and At-Risk Patients (6 to 64 Years) (3 - PPSV23 or PCV20) [facility] Start: 06-15-2028 Pneumococcal Vaccine : Pediatrics (0 to 5 Years) and At-Risk Patients (6 to 64 Years) (3 of 3 - PPSV23 or PCV20) Pneumococcal Vaccine: Pediatrics (0 to 5 Years) and At-Risk Patients (6 to 64 Years) (3 of 3 - PPSV23 or PCV20) [facility] Start: 06-13-2027 Lipid panel Lipid Panel [facility] Start: 10-07-2025 Depression Monitoring Depression [facility] Start: 09-12-2025 COVID-19 Vaccine () COVID-19 Vaccine () [facility] Comment on above: Postponed from 06/23 (Patient Refused) Start: 09-12-2025 Screening for malign ant neoplasm of lung Lung Cancer Screening [facility] Comment on above: Postponed from 06/22 (Patient Refused) Start: 09-10-2025 End: 09-10-2025 Patient encounter procedure 09/10/2025 11:00 AM EST Office Visit [address] [address] Geovani Gay MD [address] [place], [place] [phone] [facility] Start: 09-08-2025 Serum inorganic phos phate measurement [facility] Start: 09-08-2025 Vitamin B12 measurement [facility] Start: 09-04-2025 Depression Monitoring Depression Mon [facility] Start: 08-20-2025 Depression Monitoring Depression Mon [facility] Start: 08-19-2025 Screening for malign ant neoplasm of breast Mammogram [facility] Start: 07-21-2025 [facility] Start: 07-21-2025 [facility] Start: 07-07-2025 [facility] Start: 06-23-2025 COVID-19 Vaccine ( season) COVID-19 Vaccine ( season) [facility] Start: 06-23-2025 Influenza vaccination Influenza Vacc ine (#1) [facility] Start: 06-13-2025 Screening for malign ant neoplasm of cervix [facility] Start: 06-12-2025 COVID-19 Vaccine ( season) COVID-19 Vaccine ( season) [facility] Comment on above: Postponed from 06/23 (Patient Refused) Start: 06-12-2025 DTaP/Tdap/Td Vaccine s (1 - Tdap) DTaP/Tdap/Td Vaccines (1 - Tdap) [facility] Comment on above: Postponed from 02/27 (Patient Refused) Start: 06-12-2025 Hepatitis A Vaccines (1 of 2 - Risk 2-dose series) Hepatitis A Vaccines (1 of 2 - Risk 2-dose series) [facility] Comment on above: Postponed from 02/27 (Patient Refused) Start: 06-12-2025 Hepatitis B Vaccines (1 of 3 - Risk 3-dose series) Hepatitis B Vaccines (1 of 3 - Risk 3-dose series) [facility] Comment on above: Postponed from 02/27 (Patient Refused) Start: 06-12-2025 HIV screening HIV Screening [facility] Comment on above: Postponed from 02/27 (Patient Refused) Start: 06-12-2025 RSV Immunization age d 60 or older (1 - 1-dose 60+ series) RSV Immunization aged 60 or older (1 - 1-dose 60+ series) [facility] Comment on above: Postponed from 02/27 (Patient Refused) Start: 06-12-2025 RSV Immunization for Adults (1 - Risk 60-74 years 1-dose series) RSV Immunization for Adults (1 - Risk 60-74 years 1-dose series) [facility] Comment on above: Postponed from 02/27 (Patient Refused) Start: 06-12-2025 Zoster Vaccines (1 of 2) Zoste r Vaccines (1 of 2) [facility] Comment on above: Postponed from 02/27 (Patient Refused) Start: 04-07-2025 End: 04-07-2026 Comprehensive metabolic 1998 panel - Serum or Plasma Comprehensive metabolic panel Lab Routine Hypokalemia Expected: 04/07/2025 (Approximate), Expires: 04/07/2026 [facility] [employer] [facility] Work Phone: Comment on above: Expected: 04/07/2025 (Approximate), Expires: 04/07/2026 Start: 04-07-2025 End: 04-07-2026 Magnesium [Mass/volume] in Serum or Plasma Magnesium Lab Routine Hypomagnesemia Expected: 04/07/2025 (Approximate), Expires: 04/07/2026 [facility] Comment on above: Expected: 04/07/2025 (Approximate), Expires: 04/07/2026 Start: 03-25-2025 Patient discharge [facility] Start: 03-24-2025 Measurement of occul t blood in stool specimen using immunoassay [facility] Start: 03-24-2025 Referral to gastroenterology service [facility] Start: 03-23-2025 Application of intermittent pneumatic compression device [facility] Start: 03-21-2025 Administration of bl ood product [facility] Start: 03-21-2025 Oxygen therapy [facility] Start: 03-21-2025 Following clinical pathway protocol [facility] Start: 03-21-2025 Ambulation without limitation [facility] Start: 03-21-2025 Assessment of risk o f venous thromboembolism [facility] Start: 03-21-2025 Inhalation therapy procedure [facility] Start: 03-21-2025 Insertion of cathete r into peripheral vein [facility] Start: 03-21-2025 Providing care accor ding to standard [facility] Start: 03-21-2025 [facility] Start: 03-20-2025 Measurement of occul t blood in stool specimen using immunoassay [facility] Start: 03-20-[address] [facility] Start: 03-20-2025 Admission procedure [facility] Start: 03-20-2025 Hospital admission, emergency, from emergency room, medical nature [facility] Start: 03-20-2025 End: 03-20-2025 [facility] Start: 03-20-2025 [facility] Start: 03-20-2025 Bacteria identified in Blood by Culture Blood Culture [facility] Start: 03-20-2025 Bacteria identified in Urine by Culture Urine Culture [facility] Start: 03-20-2025 Blood culture Blood Culture [facility] Start: 03-12-2025 Depression Monitoring Depression [facility] Start: 03-04-2025 End: 03-04-2025 Patient encounter procedure 03/04/2025 11:30 AM EDT Office Visit [address] [address] Geovani Gay MD [address] [place] [id number] [facility] Start: 02-18-2025 End: 02-18-2025 Patient encounter procedure 02/18/2025 10:30 AM EDT Office Visit [address] [address] Geovani Gay MD [address] [place] [address] [facility] Start: 12-13-2024 Depression Monitoring Depression [facility] Start: 09-12-2024 End: 09-12-2025 Basic metabolic 1998 panel - Serum or Plasma Basic metabolic panel Lab Routine Hyponatremia Expected: 09/12/2024 (Approximate), Expires: 09/12/2025 [facility] Work Phone: Comment on above: Expected: 09/12/2024 (Approximate), Expires: 09/12/2025 Start: 09-12-2024 End: 09-12-2024 Patient encounter procedure [facility] Start: 08-19-2024 End: 08-19-2024 Patient encounter procedure 08/19/2024 11:00 AM EDT Appointment [facility] [address] [place] [phone] Geovani Gay MD [address] [place], [place] [address] [address] [facility] Start: 08-17-2024 Screening for malign ant neoplasm of breast Mammogram [facility] Start: 07-08-2024 Screening for malign ant neoplasm of breast Breast cancer screen [facility] Start: 06-23-2024 COVID-19 Vaccine () COVID-19 Vaccine () [facility] Start: 06-23-2024 Influenza vaccination Influenza Vacc ine (#1) [facility] Start: 06-22-2024 Screening for malign ant neoplasm of lung Lung Cancer Screening [facility] Start: 06-15-2024 Lipid panel Lipid Panel [facility] Start: 06-13-2024 End: 06-13-2025 Comprehensive metabolic 1998 panel - Serum or Plasma Comprehensive metabolic panel Lab Routine Alcoholic cirrhosis of liver with ascites (CMS/HCC) (HCC) Hyponatremia Expected: 06/13/2024 (Approximate), Expires: 06/13/2025 [facility] Work Phone: Comment on above: Expected: 06/13/2024 (Approximate), Expires: 06/13/2025 Start: 06-13-2024 End: 06-13-2024 Patient encounter procedure 06/13/2024 11:00 AM EDT Office Visit [facility] [address] [place], [place] [address] [address] Geovani Gay MD [address] [place] [phone] [facility] Start: 06-06-2024 Depression Monitoring Depression Mon itoring [facility] Start: 06-06-2024 Depresssion Monitoring Depresssion M onitoring [facility] Start: 05-29-2024 End: 05-29-2025 25-hydroxyvitamin D3 [Mass/volume] in Serum or Plasma Vitamin D Deficiency Screening (Vit D 25) Lab Routine Vitamin D deficiency Expected: 05/29/2024 (Approximate), Expires: 05/29/2025 [facility] [employer] Comment on above: Expected: 05/29/2024 (Approximate), Expires: 05/29/2025 Start: 05-29-2024 End: 05-29-2025 Carbamazepine level, total Carbamazepine level, total Lab Routine Seizure disorder (CMS/HCC) (HCC) Expected: 05/29/2024 (Approximate), Expires: 05/29/2025 [facility] [employer] [facility] Work Phone: Comment on above: Expected: [...] Primary hypertension Expected: 05/29/2024 (Approximate), Expires: 05/29/2025 [facility] [employer] Comment on above: Expected: 05/29/2024 (Approximate), Expires: 05/29/2025 Start: 05-29-2024 End: 05-29-2025 LEVETIRACETAM LEVEL LEVETIRACETAM LEVEL Lab Routine Seizure disorder (CMS/HCC) (HCC) Expected: 05/29/2024 (Approximate), Expires: 05/29/2025 [facility] [employer] Comment on above: Expected: 05/29/2024 (Approximate), Expires: 05/29/2025 Start: 05-29-2024 End: 05-29-2025 Lipid 1996 panel - Serum or Plasma Lipid panel Lab Routine Mixed hyperlipidemia Expected: 05/29/2024 (Approximate), Expires: 05/29/2025 [employer] Comment on above: Expected: 05/29/2024 (Approximate), Expires: 05/29/2025 Start: 05-10-2024 End: 05-10-2024 Patient encounter procedure 05/10/2024 9:00 AM EDT Office Visit [address] [place] [address] Geovani Gay MD [address] [place] [address] [place] [address] [facility] Start: 04-04-2024 End: 04-04-2024 Clinical Support 04/04/2024 9:30 AM EDT Clinical Support [address] [place] [address] [facility] Start: 03-28-2024 End: 03-28-2025 CBC panel - Blood by Automated count CBC Lab Routine Iron deficiency anemia, unspecified iron deficiency anemia type Expected: 03/28/2024 (Approximate), Expires: 03/28/2025 [facility] Comment on above: Expected: 03/28/2024 (Approximate), Expires: 03/28/2025 Start: 03-28-2024 End: 03-28-2025 Comprehensive metabolic 1998 panel - Serum or Plasma Comprehensive metabolic panel Lab Routine Hyponatremia Expected: 03/28/2024 (Approximate), Expires: 03/28/2025 [facility] Work Phone: Comment on above: Expected: 03/28/2024 (Approximate), Expires: 03/28/2025 Start: 01-17-2024 Diabetes mellitus screening Diabetes Screening [facility] Start: 01-17-2024 Hemoglobin A1c measurement Diabetes: Hemoglobin A1C [facility] Start: 12-15-2023 Depresssion Monitoring Depresssion M onitoring [facility] Start: 12-08-2023 End: 12-08-2023 Patient encounter procedure 12/08/2023 10:30 AM EST Office Visit [address] [place] [address] Geovani Gay MD [address] [place] [address] [place] [address] [facility] Start: 10-05-2023 End: 10-05-2023 Patient encounter procedure 10/05/2023 10:15 AM EST Office Visit [facility] [address] [place] [address] [place] [address] Geovani Gay MD [address] [place] [address] [place] [address] [facility] Start: 09-04-2023 End: 09-04-2023 Patient encounter procedure 09/04/2023 9:45 AM EST Office Visit [address] [place] [address] Geovani Gay MD [address] [place] [address] [place] [address] [facility] Start: 08-17-2023 End: 08-17-2023 Patient encounter procedure 08/17/2023 11:00 AM EDT Appointment [address] [phone] Geovani Gay MD [address] [place] [address] [place] [address] [facility] Start: 07-08-2023 Screening for malign ant neoplasm of breast Mammogram [facility] Start: 07-07-2023 Screening for malign ant neoplasm of breast Breast cancer screen [facility] Start: 06-23-2023 COVID-19 Vaccine () COVID-19 Vaccine () [facility] Start: 06-23-2023 COVID-19 Vaccine () COVID-19 Vaccine () [facility] Start: 06-23-2023 Depresssion Monitoring Depresssion M onitoring [facility] Start: 06-23-2023 Influenza vaccination Influenza Vacc ine (#1) [facility] Start: 06-22-2023 End: 06-22-2023 Patient encounter procedure 06/22/2023 7:45 AM EDT Appointment [facility] [address] [place] [phone] Linda Gonzales, ADJUSTO WRITER OPERATOR - DIRECTOR HR COMMUNICATIONS [address] [place], [place] [phone] [facility] [address] Start: 06-22-2023 Subsequent hospital visit by physician 06/22/2023 7:45 AM EDT Hospital Encounter [facility] [address] [place] [address] Linda Gonzales, ADJUSTO WRITER OPERATOR - DIRECTOR HR COMMUNICATIONS [address] [place], [place] [phone] [facility] Start: 06-15-2023 End: 06-14-2024 Comprehensive metabolic 1998 panel - Serum or Plasma Comprehensive metabolic panel Lab Routine Screening for diabetes mellitus Expected: 06/15/2023 (Approximate), Expires: 06/14/2024 [facility] Comment on above: Expected: 06/15/2023 (Approximate), Expires: 06/14/2024 Start: 06-15-2023 End: 06-14-2024 Lipid 1996 panel - Serum or Plasma Lipid panel Lab Routine Mixed hyperlipidemia Expected: 06/15/2023 (Approximate), Expires: 06/14/2024 [facility] Work Phone: Comment on above: Expected: 06/15/2023 (Approximate), Expires: 06/14/2024 Start: 06-15-2023 End: 08-15-2024 MG Breast - bilateral Screening Bilateral screening mammogram Imaging Routine Encounter for screening mammogram for malignant neoplasm of breast Expected: 06/15/2023, Expires: 08/15/2024 [facility] Comment on above: Expected: 06/15/2023 , Expires: 08/15/2024 Start: 06-15-2023 End: 06-15-2023 [facility] Start: 06-13-2023 Lipid panel Lipids [facility] Start: 06-09-2023 HIV screening HIV screen [facility] Comment on above: Postponed from 02/27 (Patient Refused) Start: 2023 Hepatitis B Vaccines (1 of 3 - Risk 3-dose series) Hepatitis B Vaccines (1 of 3 - Risk 3-dose series) [facility] Start: 2023 RSV Immunization age d 60 or older (1 - 1-dose 60+ series) RSV Immunization aged 60 or older (1 - 1-dose 60+ series) [facility] Start: 2023 RSV Immunization for Adults (1 - Risk 60-74 years 1-dose series) RSV Immunization for Adults (1 - Risk 60-74 years 1-dose series) [facility] Start: 01-30-2023 Ultrasonography of abdomen Abdomen Limited [facility] Start: 01-30-2023 Ultrasound elastography [facility] Start: 01-30-2023 US Abdomen limited [facility] Start: 01-02-2023 Colsc flx w/rmvl of tumor polyp lesion snare tq COLONOSCOPY W/LESION REMOVAL [facility] Start: 01-02-2023 Egd transoral biopsy single/multiple EGD BIOPSY SINGLE/MULTIPLE [facility] Start: 01-02-2023 Patient discharge [facility] Start: 12-14-2022 End: 12-14-2022 Patient encounter procedure 12/14/2022 Office Visit Family Medicine Geovani Gay MD [address] [place] [address], [place] [address] [facility] Start: 12-10-2022 Depression Monitoring Depression Mon itoring [facility] Start: 12-10-2022 DTaP/Tdap/Td vaccine (1 - Tdap) DTaP/Tdap/Td vaccine (1 - Tdap) [facility] Comment on above: Postponed from 02/27 (Patient Refused) Start: 12-10-2022 Shingles vaccine (1 of 2) Murillo gles vaccine (1 of 2) [facility] Comment on above: Postponed from 02/27 (Patient Refused) Start: 11-16-2022 End: 11-16-2022 Patient encounter procedure 11/16/2022 Appointment Radiology [facility] Start: 09-30-2022 Pneumococcal 0-64 ye ars Vaccine (2 - PPSV23 or PCV20) Pneumococcal 0-64 years Vaccine (2 - PPSV23 or PCV20) [facility] Start: 09-30-2022 Pneumococcal Vaccine : Pediatrics (0 to 5 Years) and At-Risk Patients (6 to 64 Years) (2 - PPSV23 if available, else PCV20) Pneumococcal Vaccine: Pediatrics (0 to 5 Years) and At-Risk Patients (6 to 64 Years) (2 - PPSV23 if available, else PCV20) [facility] Start: 07-06-2022 Screening for malign ant neoplasm of breast Breast cancer screen [facility] Work Phone: Start: 06-23-2022 Influenza vaccination [facility] Start: 06-13-2022 End: 06-13-2022 Patient encounter procedure [facility] Start: 06-11-2022 Creatinine measurement Creatinine mo nitoring [facility] Work Phone: Start: 06-11-2022 Hepatitis C screening Hepatitis C sc reen [facility] Comment on above: Postponed from 02/27 (Patient Refused) Postponed from 02/27 (Patient Refused) Start: 06-11-2022 HIV screening HIV screen [facility] Comment on above: Postponed from 02/27 (Patient Refused) Start: 06-11-2022 Lipid panel [facility] Start: 06-11-2022 Potassium monitoring Potassium monit oring [facility] Work Phone: Start: 05-11-2022 End: 05-11-2022 Patient encounter procedure 05/11/2022 Appointment Radiology Linda Gonzales S, ADJUSTO WRITER OPERATOR - DIRECTOR HR COMMUNICATIONS [address] [place] [address] Start: 04-29-2022 End: 04-29-2022 Nursing evaluation of patient and report 04/29/2022 Nurse Only [facility] Start: 12-13-2021 End: 12-13-2021 Patient encounter procedure 12/13/2021 Office Visit Family Medicine Geovani Gay MD [address] [facility] [facility], [place] [address] [phone] [facility] Start: 12-09-2021 DTaP/Tdap/Td vaccine (1 - Tdap) DTaP/Tdap/Td vaccine (1 - Tdap) [facility] Work Phone: Comment on above: Postponed from 02/27 (Insurance / Financial) Start: 12-09-2021 Pneumococcal 0-64 ye ars Vaccine (1 of 2 - PPSV23) Pneumococcal 0-64 years Vaccine (1 of 2 - PPSV23) [facility] Work Phone: Comment on above: Postponed from 02/27 (Insurance / Financial) Start: 12-09-2021 Shingles Vaccine (1 of 2) Murillo gles Vaccine (1 of 2) [facility] Work Phone: Comment on above: Postponed from 02/27 (Insurance / Financial) Start: 11-25-2021 Pneumococcal Vaccine : Pediatrics (0 to 5 Years) and At-Risk Patients (6 to 64 Years) (2 - PPSV23 if available, else PCV20) Pneumococcal Vaccine: Pediatrics (0 to 5 Years) and At-Risk Patients (6 to 64 Years) (2 - PPSV23 if available, else PCV20) [facility] Start: 11-03-2021 Patient referral [facility] Work Phone: Start: 09-19-2021 Lipid screen Lipid screen [facility], [place] Start: 07-07-2021 End: 07-07-2021 Patient encounter procedure 07/07/2021 Appointment Radiology SHLesley Garcia Mammo Start: 07-03-2021 Breast cancer screen Breast cancer s silas [facility] Work Phone: Start: 07-03-2021 Screening for malign ant neoplasm of breast Breast cancer screen [facility], [place] Start: 07-01-2021 COVID-19 Vaccine (3 - Booster for Pfizer series) COVID-19 Vaccine (3 - Booster for Pfizer series) [facility] Start: 06-25-2021 Screening for malign ant neoplasm of lung Low dose CT lung screening [facility] Start: 06-23-2021 Influenza vaccination Flu vaccine (# 1) [facility] Work Phone: Start: 06-16-2021 End: 06-16-2021 Patient encounter procedure 06/16/2021 Office Visit Family Medicine Geovani Gay MD [address] [facility] [place] [address] [phone] [facility] Start: 06-11-2021 Creatinine measurement Creatinine mo [place], [place] Start: 06-11-2021 Lipid panel Lipid screen [place], [place] Start: 06-11-2021 Potassium monitoring Potassium monit [place], [place] Start: 03-26-2021 COVID-19 Vaccine (3 - Booster for Pfizer series) COVID-19 Vaccine (3 - Booster for Pfizer series) [facility] Start: 03-26-2021 COVID-19 Vaccine (3 - Pfizer series) COVID-19 Vaccine (3 - Pfizer series) [facility] Start: 12-10-2020 Hepatitis C screening [place] Comment on above: Postponed from 02/27 (Patient Refused) Start: 12-10-2020 HIV screening HIV screen [place], [place] Comment on above: Postponed from 02/27 (Patient Refused) Start: 12-10-2020 End: 12-10-2020 Office Visit 12/10/2020 Office Visit Family [facility] [place] [address] [phone] [facility] Start: 12-04-2020 Creatinine measurement Creatinine mo [place] Start: 12-04-2020 Potassium monitoring Potassium monit [place], [place] Start: 07-09-2020 End: 07-09-2020 Nurse Only 07/09/2020 Nurse Only [facility] Start: 07-06-2020 End: 07-06-2020 Appointment 07/06/2020 Appointment Radiology Geovani Gay MD [address] [place] [address] [place] [address] [phone] [facility] Jose Mammo Start: 07-02-2020 Breast cancer screen Breast cancer s creen [place], [place] Start: 06-23-2020 Influenza vaccination Flu vaccine (# 1) [place] Start: 06-09-2020 End: 06-09-2020 Office Visit 06/09/2020 Office Visit Family Medicine Geovani Gay MD [address] [place] [address], [place] [address] [phone] [facility] Start: 12-27-2019 Screening for malign ant neoplasm of lung Low dose CT lung screening [place], [place] Start: 07-03-2019 End: 07-03-2019 Appointment 07/03/2019 Appointment Radiology Jeffrey Correa MD [address] [place] [address] [phone] [facility] Jose Mammo Start: 06-23-2019 Influenza vaccination Flu vaccine (# 1) [place] Start: 10-09-2018 End: 10-09-2018 Appointment Appointment [facility] Work Phone: Start: 04-24-2018 End: 04-24-2018 Radex spine lumbosacral minimum 4 views XR LUMBAR 4VWS FLEX/EX [facility] Work Phone: Start: 04-24-2018 End: 04-24-2018 Appointment Appointment [facility] Work Phone: Start: 09-19-2017 Lipid panel Lipid screen [place], [place] Start: 09-19-2017 Lipid screen Lipid screen [facility] Work Phone: Start: 2013 Colon cancer screen colonoscopy Colon cancer screen colonoscopy [place], [place] Start: 2013 Screening for malign ant neoplasm of colon Colon cancer screen colonoscopy [place] Start: 2013 Shingles Vaccine (1 of 2) Murillo gles Vaccine (1 of 2) [place] Start: 2013 Zoster Vaccines (1 of 2) Zoste r Vaccines (1 of 2) [facility] Start: 02-28-2008 Screening for malign ant neoplasm of colon [facility] Start: 2003 Diabetes screen Diabetes screen [place], [place] Start: 1998 Diabetes screen Diabetes screen [facility] Start: 1993 Screening for malign ant neoplasm of cervix [facility] Start: 02-28-1984 Cervical cancer screen Cervical canc er screen [place] Start: 02-28-1984 Screening for malign ant neoplasm of cervix [facility] Start: 1982 DTaP/Tdap/Td vaccine (1 - Tdap) DTaP/Tdap/Td vaccine (1 - Tdap) [place] Start: 1982 DTaP/Tdap/Td Vaccine s (1 - Tdap) DTaP/Tdap/Td Vaccines (1 - Tdap) [facility] Start: 1982 Hepatitis A Vaccines (1 of 2 - Risk 2-dose series) Hepatitis A Vaccines (1 of 2 - Risk 2-dose series) [facility] Start: 1981 Diabetes mellitus screening Diabetes Screening [facility] Start: 1978 HIV screen HIV screen [place], [place] Start: 1974 DTaP/Tdap/Td vaccine (1 - Tdap) DTaP/Tdap/Td vaccine (1 - Tdap) [facility] Work Phone: Start: 1973 Diabetic foot examination Diabetes: Foot Exam [facility] Start: 1973 Glaucoma screening Diabetes: R etinopathy Screening [facility] Start: 1973 Preventive dental service Diabetes: Dental Exam [facility] Start: 1969 Pneumococcal 0-64 ye ars Vaccine (1 of 1 - PPSV23) Pneumococcal 0-64 years Vaccine (1 of 1 - PPSV23) [place] Start: 02-28-1964 Hepatitis A Vaccines (1 of 2 - Risk 2-dose series) Hepatitis A Vaccines (1 of 2 - Risk 2-dose series) [facility] Start: 02-28-1964 MMR Vaccines (1 of 1 - Standard series) MMR Vaccines (1 of 1 - Standard series) [facility] Start: 1963 Hepatitis B Vaccines (1 of 3 - 3-dose series) Hepatitis B Vaccines (1 of 3 - 3-dose series) [facility] Start: 1963 Hepatitis C screen Hepatitis C scree n [facility] [place] Start: 1963 HIV screening HIV Screening [facility] Start: 1963 Screening for malign ant neoplasm of colon [facility] Blood glucose - POCT Blood gluco se - POCT Point of Care Testing STAT As Needed until discontinued starting 04/27/2022 [facility] Work Phone: Comment on above: As Needed until disc ontinued starting 04/27/2022 CBC W Auto Different ial panel - Blood [facility] CBC W Auto Different ial panel - Blood [facility] Comprehensive metabo lic 2000 panel - Serum or Plasma [facility] End: 04-27-2022 Creatinine [Mass/volume] in Serum or Plasma Creatinine, serum Lab STAT One Time for 1 Occurrences starting 04/27/2022 until 04/27/2022 [facility] Work Phone: Comment on above: One Time for 1 Occur rences starting 04/27/2022 until 04/27/2022 CT Abdomen and Pelvi s W contrast IV [facility] End: 06-22-2023 CT Chest for screening WO contrast [facility] Work Phone: Comment on above: Once for 1 Occurrenc es starting 06/22/2023 until 06/22/2023 End: 06-25-[address] LUNG SCREENING Imaging Routine Encounter for screening for lung cancer 1 Occurrences starting 06/25/2020 until 06/25/2020 [facility] Comment on above: 1 Occurrences starti ng 06/25/2020 until 06/25/[address] LUNG SCREEN ING Imaging Routine Encounter for screening for lung cancer 06/25/2020 12:49 PM EDT [facility] [place] End: 10-26-2023 DBT Breast - bilateral screening [facility] Work Phone: Comment on above: Once for 1 Occurrenc es starting 08/17/2023 until 08/17/2023 EKG 12 Lead EKG 12 Lead ECG Routine 04/18/2022 10:37 AM EDT [facility] Work Phone: Erythrocyte sediment ation rate [facility] Ferritin [Mass/volum e] in Serum or Plasma [facility] Ferritin [Mass/volum e] in Serum or Plasma [facility] Folate [Moles/volume ] in Serum or Plasma [facility] End: 04-27-2022 INITIATE PACU OXYGEN THERAPY PROTOCOL Initiate PACU Oxygen Therapy Protocol Respiratory Care Routine Continuous until discontinued starting 04/27/2022 [facility] Work Phone: Comment on above: Continuous until dis continued starting 04/27/2022 End: 04-27-2022 Intermittent pulse oximetry Pulse Oximetry Spot Check Respiratory Care Routine One Time for 1 Occurrences starting 04/27/2022 until 04/27/2022 [facility] Work Phone: Comment on above: One Time for 1 Occur rences starting 04/27/2022 until 04/27/2022 Iron [Mass/mass] in Unspecified specimen [facility] Iron and Iron bindin g capacity panel - Serum or Plasma [facility] Lactate dehydrogenas e measurement [facility] Lactate dehydrogenas e measurement [facility] Lactic acid measurement [facility] End: 04-18-2022 Levetiracetam Level [facility] Work Phone: Comment on above: 1 Occurrences starti ng 04/18/2022 until 04/18/2022 End: 05-11-[address] -Abnormal Lung Screen Follow up [facility] Work Phone: Comment on above: 1 Occurrences starti ng 05/11/2022 until 05/11/2022 Magnesium measurement [facility] Nasal Cannula Oxygen Nasal Cannu la Oxygen Respiratory Care Routine As Needed until discontinued starting 04/27/2022 [facility] Work Phone: Comment on above: As Needed until disc ontinued starting 04/27/2022 Nasal Cannula Oxygen Nasal Cannu la Oxygen Respiratory Care Routine As Needed until discontinued starting 04/27/2022 [facility] Work Phone: Comment on above: As Needed until disc ontinued starting 04/27/2022 Nonrebreather mask oxygen Nonreb reather mask oxygen Respiratory Care Routine As Needed until discontinued starting 04/27/2022 [facility] Work Phone: Comment on above: As Needed until disc ontinued starting 04/27/2022 Nonrebreather mask oxygen Nonreb reather mask oxygen Respiratory Care Routine As Needed until discontinued starting 04/27/2022 [facility] Work Phone: Comment on above: As Needed until disc ontinued starting 04/27/2022 OUTSIDE PROCEDURE SCAN OUTSIDE P ROCEDURE SCAN Procedures Ordered: 06/21/2023 [facility] Comment on above: Ordered: 06/21/2023 OUTSIDE PROCEDURE SCAN OUTSIDE P ROCEDURE SCAN Procedures Ordered: 11/15/2022 [facility] Comment on above: Ordered: 11/15/2022 Oxygen therapy [[facility] Data Set] [facility] Work Phone: Comment on above: As Needed until disc ontinued starting 04/27/2022 Daily until disconti nued starting 04/27/[address] [facility] Work Phone: Patient referral [facility] Work Phone: End: 04-27-2022 Potassium w/ Reflex to Magnesium Potassium w/ Reflex to Magnesium Lab Routine One Time for 1 Occurrences starting 04/27/2022 until 04/27/2022 [facility] Work Phone: Comment on above: One Time for 1 Occur rences starting 04/27/2022 until 04/27/2022 End: 04-27-2022 Protime-INR Protime-INR Lab STAT One Time for 1 Occurrences starting 04/27/2022 until 04/27/2022 [facility] Work Phone: Comment on above: One Time for 1 Occur rences starting 04/27/2022 until 04/27/2022 Reticulocyte count [facility] End: 07-03-2019 Screening digital breast tomosynthesis bi Demian Isaac Digital Screen Bilateral Imaging Routine Once for 1 Occurrences starting 07/03/2019 until 07/03/2019 [facility] [place] Comment on above: Once for 1 Occurrenc es starting 07/03/2019 until 07/03/2019 Screening digital br east tomosynthesis bi Demian Isaac Digital Screen Bilateral Imaging Routine 07/03/2019 10:31 AM EDT [facility] [place] Serum immunofixation [facility] Serum inorganic phos phate measurement [facility] Spirometry panel Incentive alda metry Respiratory Care Routine Q1H PRN until discontinued starting 04/27/2022 [facility] Work Phone: Comment on above: Q1H PRN until discon tinued starting 04/27/2022 End: 04-27-2022 Surgical Pathology [facility] Work Phone: Comment on above: Once for 1 Occurrenc es starting 04/27/2022 until 04/27/2022 Transferrin [Mass/vo lume] in Serum or Plasma [facility] Urine culture [facility] Vitamin B12 measurement [facility] Immunizations Immunization Date Immunization Notes Care Provider Fa [facility] 09-12-2024 influenza, seasonal, injectable, preservative free Geovani Gay MD Work Phone: [facility] 09-12-2024 influenza virus vaccine, unspecified formulation Linda Gonzales ADJUSTO WRITER OPERATOR - DIRECTOR HR COMMUNICATIONS Work Phone: [facility] 05-02-2024 tuberculin skin test ; purified protein derivative solution, intradermal Linda Gonzales ADJUSTO WRITER OPERATOR - DIRECTOR HR COMMUNICATIONS Work Phone: [facility] 04-25-2024 tuberculin skin test ; purified protein derivative solution, intradermal Linda Gonzales ADJUSTO WRITER OPERATOR - DIRECTOR HR COMMUNICATIONS Work Phone: [facility] 09-08-2023 influenza, injectabl e, quadrivalent, preservative free Geovani Gay MD Work Phone: [facility] 09-08-2023 influenza virus vaccine, unspecified formulation Geovani Gay MD Work Phone: [facility] 06-15-2023 pneumococcal polysaccharide vaccine, 23 valent Geovani Gay MD Work Phone: [facility] 07-28-2022 Covid Pfizer Bivalen t Booster Dr. Geovani Gay MD Work Phone: [facility] 07-28-2022 influenza, injectabl e, quadrivalent, preservative free Geovani Gay MD Work Phone: [facility] 07-28-2022 Moderna SARS-CoV-2 Vaccination Linda Gonzales ADJUSTO WRITER OPERATOR Lobito REINOSO Work Phone: [facility] 07-28-2022 influenza virus vaccine, unspecified formulation Geovani Gay MD Work Phone: [facility] 09-30-2021 pneumococcal conjuga te vaccine, [address] Geovani Gay Work Phone: [facility] 09-30-2021 pneumococcal vaccine , unspecified formulation Dr. Geovani Gay Work Phone: [facility] Work Phone: 01-29-2021 COVID-19, Pfizer, PF , 30mcg/0.3mL Geovani Gay MD Work Phone: [facility] Work Phone: 01-08-2021 COVID-19, Pfizer, PF , 30mcg/0.3mL Geovani Gay MD Work Phone: [facility] Work Phone: 07-14-2020 influenza, injectabl e, quadrivalent, contains preservative Geovani Gay MD Work Phone: [facility] 07-14-2020 influenza, injectabl e, quadrivalent, preservative free Dr. Geovani Gay MD Work Phone: [facility] 12-10-2019 influenza, injectabl e, quadrivalent, contains preservative [place] 12-10-2019 influenza, injectabl e, quadrivalent, preservative free Dr. Geovani Gay MD Work Phone: [facility] 09-05-2018 influenza, injectabl e, quadrivalent, preservative free [facility], [place] 07-25-2017 influenza virus vaccine, unspecified formulation [facility], [place] 07-25-2017 influenza, injectabl e, quadrivalent, preservative free Dr. Geovani Gay MD Work Phone: [facility] 09-24-2015 Influenza Vaccine, unspecified formulation Mande[facility] , [place] 09-24-2015 influenza, injectabl e, quadrivalent, preservative free Dr. Geovani Gay MD Work Phone: [facility] 09-01-2005 influenza virus vaccine, unspecified formulation [facility] No information available. Eloina Rao [facility] Work Phone: Payers Date Payer Category Payer Self-pay [id number] 2023 Medicaid HMO [employer] [facility] Address: [address] [address] [id number] 2023 Unknown [id number] 2022 Medicaid [id number] 2019 Unknown [employer] [facility] MEDICAID xxxxxxxxxxx 2019-Present [phone] CLAIMS DEPARTMENT [address] [place] [address] xxxxxxxxxxx [id number] 2019 Unknown [id number] 2016 Unknown BCBS [place] P PO xxxxxxxxxxxx 2016-Present [address] [place] [address] xxxxxxxxxxxx [id number] 2005 Self-pay SELF PAY HSP/MED ICAL SELF PAY [id number] SELF PAY Indemnity [id number] 1963 Unknown [id number] 1963 Unknown [id number] 1963 Unknown [id number] 1963 Unknown [id number] 12.08.830.1.756972.3.579.2 1963 Unknown [id number] 1963 Unknown [id number]. 1963 Unknown [id number] Unknown Unknown [id number] Unknown [id number] Unknown [id number] 2.16.840.1.401981.3.579.2.462 Unknown [id number] 2.16.840.1.573611.3.579.2.462 Unknown [id number] 2.16.840.1.045377.3.579.2.462 Unknown [id number] 2.16.840.1.189598.3.579.2.462 Unknown [id number] 2.16.840.1.387856.3.579.2.462 Unknown [id number] 2.16.840.1.568392.3.579.2.462 Unknown [id number] 2.16.840.1.291355.3.579.2.462 Unknown [id number] 2.16.840.1.771262.3.579.2.462 Unknown [id number] 2.16.840.1.803910.3.579.2.462 Unknown [id number] 2.16.840.1.800649.3.579.2.462 Unknown [id number] 2.16.840.1.630731.3.579.2.462 Unknown [id number] 2.16.840.1.939289.3.579.2.462 Unknown [id number] 2.16.840.1.164519.3.579.2.462 Unknown [id number] [id number] Unknown [id number] Social History Date Type Detail Facility Start: 11-03-2021 End: 01-16-2023 Assertion Unknown if ever smoked [facility] Work Phone: Start: 09-19-2016 End: 07-21-2025 Tobacco smoking status NHIS Current every day smoker [place] Start: 09-19-2016 End: 04-17-2025 Alcohol intake No [place], [place] Start: 1965 Sex Assigned At Not on file [place] Start: 04-10-2020 End: 02-06-2025 Cigarettes smoked current (pack per day) - Reported [place] Start: 09-19-2016 End: 04-10-2020 Alcohol intake Current non-drinker of alcohol (finding) [facility] Work Phone: Exposure to SARS-CoV -2 (event) Unable to assess [place] Start: 06-23-2020 End: 08-19-2024 Tobacco use and exposure Never used [place] Start: 06-23-2020 End: 12-21-2022 Alcohol intake Current drinker of alcohol (finding) [place] Start: 06-08-2020 End: 09-07-2022 History SDOH Alcohol Frequency 2 [place] Start: 06-08-2020 End: 09-07-2022 History SDOH Alcohol Binge 1 [place] Start: 06-08-2020 End: 06-10-2021 History SDOH Financial 5 [place] Start: 04-08-2022 End: 06-22-2023 Exposure to SARS-CoV-2 (event) Not sure [place] Start: 07-30-2020 Occasional [facility] Start: 07-30-2020 None [facility] Start: 07-30-2020 Spouse/ Signif icant Other [facility] Start: 08-04-2020 Cigarettes [facility] Start: 1965 Sex Assigned At Female [facility] History of tobacco use Cigarette Smoker S [facility] Work Phone: Start: 04-18-2022 History SDOH Alcohol Comment 12 pack beer daily [facility] Work Phone: Start: 06-13-2022 History SDOH Financial 3 [facility] Work Phone: Start: 09-07-2022 History SDOH Financial 4 [facility] How hard is it for y ou to pay for the very basics like food, housing, medical care, and heating Not very hard [facility] (I/We) worried adry er (my/our) food would [...] Start: 03-28-2024 Alcohol Comment none since 03/23/24 [facility] Start: 05-23-2022 Sex Female (finding) [facility] Are you now , , , , never or living with a partner? [facility] How often to you hav e a drink containing alcohol? Never [facility] How hard is it for y ou to pay for the very basics like food, housing, medical care, and heating Hard [facility] Do you feel stress - tense, restless, nervous, or anxious, or unable to sleep at night because your mind is troubled all the time - these days [OSQ] Very much [facility] NEGATED: Highlighted rowStart: 04-24-2018 End: 04-24-2018 Tobacco use and exposure Unknown if ever smoked [facility] Work Phone: NEGATED: Highlighted rowStart: NINF History of tobacco use Passive smoker [facility] NEGATED: Highlighted row Not [facility] Medical Equipment Procedure Code [...] anesthesia care Gastrointestinal endoscopic clip, long-term, non-bioabsorbable [id number] FDA Start: 03-25-2025 Goals Date Patient Goal Desired Activity /State Functional Status Date Assessment Result Facility 05-07-2025 Total score [AUDIT-C] 0 05/07/20 25 9:43 AM Viktoriya Malagon RN [facility] 04-07-2025 Patient Health Questionnaire 2 item (PHQ-2) [Reported] [facility] 04-07-2025 PHQ-9 quick depressi on assessment panel [Reported.PHQ] [facility] 04-07-2025 Generalized anxiety disorder 7 item (MAURISIO-7) [facility] 03-25-2025 Functional status Ambulates;Bath room Privilege [facility] Work Phone: 03-25-2025 Functional status Ambulates;Bath room Privilege [facility] Work Phone: 03-04-2025 Patient Health Questionnaire 2 item (PHQ-2) [Reported] [facility] 03-04-2025 PHQ-9 quick depressi on assessment panel [Reported.PHQ] [facility] 03-04-2025 Generalized anxiety disorder 7 item (MAURISIO-7) [facility] Mental Status Date Assessment Result Facility 07-14-2025 Cognitive function Voice/Name [facility] Work Phone: 03-25-2025 Cognitive function Level Of Cons ciousness Awake;Alert [facility] Work Phone: 03-25-2025 Cognitive function Voice/Name [facility] Work Phone: 01-02-2023 Cognitive function Voice/Name [facility] Work Phone: Clinical Notes 04-18-2022 to 07-21-2025 Note Date & Type Note Facility 07-21-2025 Discharge summary [facility] 07-21-2025 Radiology Diagnostic study note [facility] Imaging Services [address] [place], [place] [id number] Chest PA and Lateral MR#: [id number] Acct: [id number] Name: AISHA HA Rep #: [id number] : 1965 F 60 From: Nahomi Herzog MD PCP: Dr. Geovani Gay MD Status: REG ER Study:Chest PA and Lateral Date of Exam: 07/21/25 Exam# [id number] Ordering Dr: Jo Ann Carballo MD PROCEDURE: [...] Possibly new. Resolution left-sided pneumonia. Reading Location: [place] [address] CC: Dr. Geovani Gay MD; Dr. David Carballo MD ~ Sterile Processing Technician: Signed [facility] 07-21-2025 Discharge summary Note Date/Time July 21, 2025 4:43pm [facility] Medical Records Department [address] [place] [address] Emergency Department Summary 07/21/25 MR#: [id number] Acct: [id number] Name: AISHA HA Rep #:[id number] : 1965 60 From: David Carballo MD [...] extremities. Nontender no edema no cords. 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 Normal dorsi plantarflexion. Back nontender. Neurologically [...] dose given here. Outpatient follow-up with her mail technician. Patient and are comfortable with the plan. [...] % (Auto) 51.1 Lymph % (Auto) 39.7 [place] % (Auto) 7.3 Eos % (Auto) 1.2 [...] Possibly new. Resolution left-sided pneumonia. Reading Location: [place] [address] Chest x-ray, 2 views, AP and lateral, [...] rate of 65 no acute signs of SC or ischemia. Discharge Plan Triage Chief Complaint: [...] chest x-ray today looked good. Print Language: Burundian Disposition Disposition: Home, Self Care What to do if you have Problems For any increased pain, shortness of breath, bleeding, nausea or vomiting, chestpain, or any unexpected problems, contact your Primary Care Provider. Call [facility] ([phone]) or report to the closest Emergency Room. Call 911 if necessary. 07/21/25 1643 <Electronically signed by David Carballo MD> Cosigner Signature (if applicable): CC: Dr. Geovani Gay MD ~ Signed [facility] Work Phone: [phone]) 439-760109-15-2025 Progress note Author Gabino Madsen [facility] Note Date/Time July 07, 2025 4:34pm [facility] [address] [place] [address] OFFICE VISIT Date of Service: 07/07/25 1554 MR#: [id number] Acct: [id number] Name: AISHA HA Rep #: [id number] : 1965 From: Gabino Madsen MD Age/Sex: 60/F Location: [facility] Status: Signed HPI Subjective Date of Service [...] COPD and requires home oxygen. [facility] Medical History Anemia Cirrhosis MRSA (methicillin resistant [...] Physical Exam Narrative On home O2 by SD Const alert, oriented x3 and no apparent [...] Geovani Gay MD; Cal Friend, DO ~ [facility] Services Work Phone: 1(253) 230-147009-15-2025 Progress [facility] [address] [address] OFFICE VISIT Date of Service: 07/07/25 1554 MR#: [id number] Acct: [id number] Name: AISHA HA Rep #: [id number] : 1965 From: Gaibno Madsen MD Age/Sex: 60/F Location: [facility] Status: Signed HPI Subjective Date of Service [...] COPD and requires home oxygen. [facility] Medical History Anemia Cirrhosis MRSA (methicillin resistant [...] Physical Exam Narrative On home O2 by SD Const alert, oriented x3 and no apparent [...] Dr. Geovani Gay MD; Cal Friend, ~ [facility]09-08-2025 Telephone encounter Note* Telephone Encounter - GARETH Calloway CNP - 06/30/2025 4:26 PM EDT Reviewed chart. Refill appropriate. RX sent. [id number] Miscellaneous Notes* Telephone Encounter - GARETH Calloway [...] qty 180 refill 1) documented in this [facility]SAs[facility] CenterXerjup01-08-2711 Telephone encounter Note* Telephone Encounter - Francy Roper - 06/30/2025 1:18 PM EDT Prescription Request: ONDANSETRON HCL 4 MG TABLET Last medication check: 03/04/25 Last physical exam: none Next scheduled appointment: 09/10/25 Last date of refill on this medication 05/29/24 ( qty 180 refill 1) [id number] Telephone encounter Note* Telephone Encounter - Francy Roper - 06/26/2025 7:45 AM EDT Prescription Request: VITAMIN D2 1.25MG(50,000 UNIT) Last medication check: 03/04/25 Last physical exam: 06/13/24 Next scheduled appointment: 09/10/25 Last date of refill on this medication 01/13/25 ( qty 12 refill 1) [facility]Yuffwf38-38-0428 Miscellaneous Notes* Telephone Encounter - Francy Roper - 06/26/2025 7:45 AM EDT Prescription Request: VITAMIN D2 1.25MG(50,000 UNIT) Last medication check: 03/04/25 Last physical exam: 06/13/24 Next scheduled appointment: 09/10/25 Last date of refill on this medication 01/13/25 ( qty 12 refill 1) documented in this [facility]08-04-2025 Telephone encounter Note* Telephone Encounter - GARETH Fragoso CNP - 05/26/2025 3:16 PM EDT Rx sent. Follow up as scheduled. [id number] Miscellaneous Notes* Telephone Encounter - GARETH Fragoso [...] medication tab): 04/07/2025 Updated/Validated preferred pharmacy: Yes [facility]/pharmacy #[id number] - [place] - [address] [place] [address] Patient instructed to contact the pharmacy prior to picking up the medication: no documented in this [facility]08-04-2025 Telephone encounter Note* Telephone Encounter - Elina [...] medication tab): 04/07/2025 Updated/Validated preferred pharmacy: Yes [facility]/pharmacy #[id number] - [place], [place] - [address] [place] [address] Patient instructed to contact the pharmacy prior to picking up the medication: no [facility]Lzbzqq81-30-7514 Emergency department Note* Gena Jones MD - [...] mouth daily. ERGOCALCIFEROL (VITAMIN D2) 1.25 MG (80904 UT) CAPSULE TAKE 1 CAPSULE BY MOUTH [...] hours as needed (wheezing, cough,). NYSTATIN (MYCOSTATIN) 594916 UNIT/ML SUSPENSION Take 5 mL (500,000 Units) [...] 05/07/2025 09:41:53 AM PATIENT REFERRED TO: Geovani aGy MD [address] [place] [address], [address] [facility] [address] Schedule an appointment as soon as possible [...] Session: Patient declined Stress: Patient Declined (02/06/2025) [employer] - Occupational Stress Questionnaire Feeling of Stress : Patient declined Social Connections: Patient Declined (02/06/2025) Social Connection and Isolation Panel [NHANES] Frequency of Communication with Friends and Family: Patient declined Frequency of Social Gatherings with Friends and Family: Patient declined Attends Gnosticism Services: Patient declined Active Member of Clubs [...] call light within reach. documented in this encounterSAshtabula County Medical CenterZqnxgr18-38-5522 Emergency department Triage note* Viktoriya Vasquez RN - 05/07/2025 9:25 AM EDT Patient to room 3 with c/o sinus pain for the last 4 days. Patient reports she gets this a couple times a year. V/S obtained, call light within reach. [facility] HealthIqyyjf84-11-9417 Physician Emergency department Note* Gena Jones MD [...] mouth daily. ERGOCALCIFEROL (VITAMIN D2) 1.25 MG (74388 UT) CAPSULE TAKE 1 CAPSULE BY MOUTH [...] hours as needed (wheezing, cough,). NYSTATIN (MYCOSTATIN) 055152 UNIT/ML SUSPENSION Take 5 mL (500,000 Units) [...] AM PATIENT REFERRED TO: Geovani Gay MD [address] [place] [address], [address] [facility] [address] Schedule an appointment as soon as possible [...] Session: Patient declined Stress: Patient Declined (02/06/2025) [employer] - Occupational Stress Questionnaire Feeling of Stress : Patient declined Social Connections: Patient Declined (02/06/2025) Social Connection and Isolation Panel [NHANES] Frequency of Communication with Friends and Family: Patient declined Frequency of Social Gatherings with Friends and Family: Patient declined Attends Gnosticism Services: Patient declined Active Member of Clubs [...] Patient declined Gena Jones MD 05/07/25 0947 [id number] Telephone encounter Note* Telephone Encounter - GARETH Calloway CNP - 04/25/2025 7:27 AM EDT Reviewed chart. Refill appropriate. RX sent. [facility] [id number] Miscellaneous Notes* Telephone Encounter - GARETH Calloway CNP - 04/25/2025 7:27 AM EDT Reviewed chart. Refill appropriate. RX sent. documented in this [facility]07-04-2025 Telephone encounter Note* Telephone Encounter - GARETH Calloway CNP - 04/25/2025 7:26 AM EDT Reviewed chart. Refill appropriate. RX sent. [facility] HealthAinpdu48-66-0039 Miscellaneous Notes* Telephone Encounter - GARETH Calloway CNP - 04/25/2025 7:26 AM EDT Reviewed chart. Refill appropriate. RX sent. documented in this [facility]06-23-2025 Telephone encounter Note* Telephone Encounter - Francy Roper - 04/14/2025 7:32 AM EDT Prescription Request: METOPROLOL SUCC ER 25 MG TAB Last medication check: 03/04/25 Last physical exam: 06/13/24 Next scheduled appointment: 09/10/25 Last date of refill on this medication 10/28/24 ( qty 90 refill 1) [facility] [id number] Miscellaneous Notes* Telephone Encounter - Francy Roper - 04/14/2025 7:32 AM EDT Prescription Request: METOPROLOL SUCC ER 25 MG TAB Last medication check: 03/04/25 Last physical exam: 06/13/24 Next scheduled appointment: 09/10/25 Last date of refill on this medication 10/28/24 ( qty 90 refill 1) documented in this [facility]06-16-2025 History of Present illness Narrative* Nia Zuniga MA - 04/07/2025 10:00 AM EDT Patient verified by last name and . * Linda Gonzales APRN - DIRECTOR HR COMMUNICATIONS - 04/07/2025 10:00 AM EDT Images from the original note were not included. [address] [id number] Post-Discharge Transitional Care Follow Up Date of [...] chronic respiratory failure with hypoxia (HCC) - [facility] Pulmonary/Pulmonology - Chronic, stable - Currently wearing [...] States she does not follow-up with a preventive medicine specialist - Ammonia level stable while hospitalized - Will check liver enzymes today with blood work 7. Dependence on continuous supplemental oxygen - [facility] Pulmonary/Pulmonology - Oxygen level stable on 3 L via nasal cannula - Will have her consult with pulmonology for ongoing management 8. Chronic obstructive pulmonary disease, unspecified COPD type (HCC) - [facility] Pulmonary/Pulmonology - Chronic, stable - Incruse Ellipta as prescribed - Continuous oxygen as directed Medical Decision Making moderate Follow up in 5 months (on 09/10/2025) for Next scheduled follow-up or sooner if needed. Linda Gonzales APRN - KEMAR 04/07/25 10:04 AM MARYANNE Izaguirre presents today for a hospital discharge follow-up from [facility] from 03/20/2025 through 03/25/2025. [...] States she does not follow-up with a mail technician currently. Inpatient course: Discharge summary reviewed Interval [...] , Rfl: ergocalciferol (Vitamin D2) 1.25 MG (69119 UT) capsule, TAKE 1 CAPSULE BY MOUTH [...] cough,)., Disp: 1 each,Rfl: 0 nystatin (Mycostatin) 566811 UNIT/ML suspension, Take 5 mL (500,000 Units) [...] normal. Judgment: Judgment normal. documented in this [facility]06-03-2025 Consult note [facility] Medical Records Department [address] [place] [address] Anesthesia Postop Eval II 03/25/25 1617 MR#: [id number] Acct: [id number] Name: AISHA HA Rep #:[id number] : 1965 60 From: Jef Dennis RNA PCP: Dr. Geovani Gay MD Status:ADM IN Y Race: C Location: [place] [address] 3-1 Anesthesia Postop Eval I Sum Postop Eval Completion status Anesthesia document: Postop Eval 1 completed: Yes Anesthesia Postop Eval I Summary Anesthesia Postop Eval I Summary: Anesthesia Postop Eval I: Assessment Summary Airway patent Yes 03/25/25 16:15 WIRE TEMPERER.MDOT Spontaneous unlabored Yes 03/25/25 16:15 WIRE TEMPERER.MDOT respirations Mental status Awake,Calm 03/25/25 16:15 WIRE TEMPERER.MDOT nausea No 03/25/25 16:15 WIRE TEMPERER.MDOT Vomiting No 03/25/25 16:15 WIRE TEMPERER.MDOT Anesthesia Postop Eval I: Fluid Summary Crystalloid volume administer 300 03/25/25 16:15 WIRE TEMPERER.MDOT (ml) Colloids volume administered ( ml) Blood Product volume administered (ml) Total IV fluid infused 300 03/25/25 16:15 WIRE TEMPERER.MDOT Anesthesia Postop Eval I: Summary Notes Anesthesia Complication No 03/25/25 16:15 WIRE TEMPERER.MDOT Anesthesia Complication Comment: Post-operative progress note Anesthesia: Postop Eval II Evaluation Mental status: Awake and Calm Pain Level: 0 nausea: No Vomiting: No Complications Anesthesia Complication: No 03/25/25 1617 WIRE TEMPERER> Date _ Jef Melton Signature: Date CC: ~ Signed [facility]06-03-2025 Progress note Author Cal Friend [facility] Note Date/Time March 25, 2025 3:18p m [facility] Medical Records Department [address] [place] [address] Progress Note 03/25/25 1516 MR#: [id number] Acct: [id number] Name: AISHA HA Rep #:[id number] : 1965 60 From: Cal Bahena DO PCP: Dr. Geovani Gay MD Status:ADM IN Location: [place] [address] Progress Note Patient's hemoglobin is up to [...] Multi Select Codes Visit Charges Visit Charges: 23402 Subs Hosp L2 03/25/25 1518 <Electronically signed by Cal mckenna DO> Date _ Cal Bahena DO Cosigner Signature (if applicable): Date cc: ~* Signed [facility] Work Phone: 1(662) 873-506106-03-2025 Consult note [facility] Note Date/Time March 25, 2025 3:16p [facility] Medical Records Department [address] [place] [address] Pre-Anesthesia Evaluation 03/25/25 1507 MR#: [id number] Acct: [id number] Name: AISHA HA Rep #:[id number] : 1965 60 From: Ag Harrison MD PCP: Dr. 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 Hx Hospitalization No 12/27/22 10:29 Any Problems [...] take am of surgery PONV PONV - timber incisor operator: PONV - timber incisor operator Female HX of Motion Sickness HX of N/V After Surgery Non-Smoker Duration of Surgery greater than 60 minutes Number of Risk Factors PONV Score Height & Weight Height & Weight: Anesthesia: Height & Weight Height 4 ft 11.84 in 03/25/25 12:15 Weight: 71.6 kg 03/25/25 12:15 Body Mass Index (BMI) 30.9 03/25/25 12:15 Respiratory Assessment Respiratory Assessment - timber incisor operator: Respiratory Tract Infection Hx - timber incisor operator Hx Respiratory Tract Infection Yes 03/24/25 22:56 Any additional information?: Yes Hx Respiratory Tract Infection: Yes History of Anesthesia Respiratory Infection details: Patient have presented with pneumonia 4 days ago. Currently being treated. Patient feels much better. 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: Hematologic 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 Hx of Blood Transfusion No 03/21/25 00:32 [...] confused, unrespo /Reproduction History /Reproductive History - timber incisor operator: /Reproductive Hx- timber incisor operator Hx Now No 03/24/25 22:56 Gestational Age [...] mls @ 15 mls/hr 03/21/25 00:24 IV .[id number] PRN Saline Flush Sodium Chloride 250 mls @ 15 mls/hr 03/21/25 00:24 IV .[id number] PRN Additional IVPB Infusion Lactated Ringer's 1,000 mls @ 15 mls/hr 03/25/25 14:30 03/25/25 14:30 IV 15 mls/hr .Q48H KASH Administration Levetiracetam 1,000 mg 03/21/25 00:21 03/25/25 08:54 Levetiracetam 1,000 Mg Tablet PO Not Given BID [facility] Lisinopril 20 mg 03/21/25 00:21 03/25/25 08:54 Lisinopril 20 Mg Tablet PO Not Given BID [facility] Protocol Methylprednisolone 40 mg 03/21/25 14:00 03/25/25 12:27 Methylprednisolone 40 Mg/Ml Vial IV 40 mg Q8 KASH Administration Nystatin 500,000 unit 03/22/25 10:00 03/25/25 12:26 Nystatin 500,000 Unit/5 Ml Udc PO Not Given 4X/DAY [facility] Pantoprazole Sodium 40 mg 03/21/25 00:21 03/25/25 08:54 Pantoprazole Sodium 40 Mg Tablet PO Not Given BID [facility] Perphenazine 4 mg 03/21/25 17:00 03/25/25 09:36 Perphenazine 4 Mg Tablet PO Not Given DAILY [facility] Polyethylene Glycol 17 gm 03/22/25 10:00 03/25/25 08:54 Polyethylene Glycol 3350 17 Gm Packet PO Not Given DAILY [facility] Potassium Chloride 20 meq 03/21/25 09:10 03/25/25 08:53 Potassium Chloride Oral Tablet 20 [facility]eq [facility] Senna/Docusate Sodium 1 tablet 03/22/25 10:00 03/25/25 08:54 Senna/Docusate Sodium 1 Tablet PO Not Given BID [facility] Sodium Chloride 10 - 40 ml 03/21/25 00:24 03/25/25 12:25 0.9% Saline Lock 10 Ml Syringe IV 10 ml UD PRN Administration SALINE FLUSH Spironolactone 25 mg 03/23/25 10:00 03/25/25 08:53 Spironolactone 25 Mg Tablet PO Not Given DAILY [facility] Protocol [facility] Medical History Cirrhosis MRSA (methicillin resistant staph [...] no additional complaints, except as documented. 03/25/25 0336 <Electronically signed by Ag fortune MD> Date _ Ag Randleignsol Signature: Date CC: ~ Signed [facility] Work Phone: [phone]) 209-806406-03-2025 Discharge summary [facility] Medical Records Department [address] [place] [address] Discharge Summary 03/25/25 1652 MR#: [id number] Acct: [id number] Name: AISHA HA Rep #:[id number] : 1965 60 From: Troy Akins MD PCP: Dr. Geovani Gay MD Status:ADM IN Location: [place] [address] Providers Date of Admission: 03/20/25 Date of Discharge: 03/25/25 Primary Care Physician: Dr. Geovani Gay MD Consultations 03/24/25 08:28 Consult: Gastroenterology Routine Consulting Provider: [facility] Reason for Consult: Anemia with guaiac [...] Self Care Charges/Coding Visit Charges Inpatient E&M: 59786 Disch Hosp >30min 03/25/25 1704 Cosigner Signature (if applicable): CC: Dr. Geovani Gay MD; Dr. Troy Akins MD~ Signed [facility]06-03-2025 [facility] Medical Records Department [address] [place] [address] Discharge Summary 03/25/25 1652 MR#: [id number] Acct: [id number] Name: AISHA HA Rep #: [id number] : 1965 60 From: Troy Akins MD PCP: Dr. Geovani Gay MD Status:ADM IN Location: [facility] [id number] Providers Date of Admission: 03/20/25 Date of Discharge: 03/25/25 Primary Care Physician: Dr. Geovani Gay MD Consultations 03/24/25 08:28 Consult: Gastroenterology Routine Consulting Provider: [facility] Reason for Consult: Anemia with guaiac [...] Hypertension ??? Blood p (more content not included)...[facility]06-03-2025 Consult note [facility] Medical Records Department [address] [place] [address] Anesthesia Postop Eval I 03/25/25 1614 MR#: [id number] Acct: [id number] Name: AISHA HA Emma Rep #:[id number] : 1965 60 From: Jef LOJA PCP: Dr. Geovani Gay MD Status:ADM IN Y Race: C Location: [place] [address] 31 Anesthesia: Postop Eval I Current Vital [...] Postop Eval 1 completed: Yes 03/25/25 1615 WIRE TEMPERER> Date _ Jef Herman CRNA Cosigner Signature: Date CC: ~ Signed [facility]06-03-2025 Procedure note [facility] Medical Records Department [address] [place] [address] EGD Report MR#: [id number] Acct: [id number] Name: AISHA HA Rep #:[id number] : 1965 60 From: Cal Bahena DO [...] angiodysplastic lesions Procedure Code(s): --- Professional --- 65056, Small intestinal endoscopy, enteroscopy beyond second portion of duodenum, not including ileum; with control of bleeding (eg, injection, bipolar cautery, unipolar cautery, laser, heater probe, stapler, plasma commercial mortgage broker) CPT copyright 2021 [employer]. All rights reserved. The codes documented in this report are preliminary and upon supervisor coremaker review may be revised to meet current compliance requirements. Cal Bahena DO 03/25/2025 4:12:45 PM This report has been signed electronically. Number of Addenda: 0 Note Initiated On: 03/25/2025 3:46 PM 03/25/25 1612 Date _ Cal Bahena DO Cosigner Signature: Date (if indicated) CC: Dr. Geovani Gay MD; Cal Bahena DO ~ Date Dictated: 03/25/25 1546 Date Transcribed: Sterile Processing Technician: RF Signed [facility]06-03-2025 Procedure note [facility] Medical Records Department [address] [place] [address] Operative Report - CC Letter MR#: [id number] Acct: [id number] Name: AISHA HA Rep #:[id number] : 1965 60 From: Cal Bahena DO [...] ~ Date Dictated: 03/25/25 1546 Date Transcribed: Sterile Processing Technician: RF Signed [facility]06-03-2025 Progress note [facility] Medical Records Department [address] [place] [address] Progress Note 03/25/25 1516 MR#: [id number] Acct: [id number] Name: AISHA HA Rep #:[id number] : 1965 60 From: Cal Bahena DO PCP: Dr. Geovani Gay MD Status:ADM IN Location: [place] [address] Progress Note Patient's hemoglobin is up to [...] Multi Select Codes Visit Charges Visit Charges: 79747 Subs Hosp L2 03/25/25 1518 d DO> Date _ Cal Bahena DO Cosigner Signature (if applicable): Date cc: ~* Signed [facility]06-03-2025 Consult note [facility] Medical Records Department [address] [facility] [place] [address] Pre-Anesthesia Evaluation 03/25/25 1507 MR#: [id number] Acct: [id number] Name: AISHA HA Rep #:[id number] : 1965 60 From: Ag Harrison MD PCP: Dr. 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 Hx Hospitalization No 12/27/22 10:29 Any Problems [...] take am of surgery PONV PONV - timber incisor operator: PONV - timber incisor operator Female HX of Motion Sickness HX of N/V After Surgery Non-Smoker Duration of Surgery greater than 60 minutes Number of Risk Factors PONV Score Height & Weight Height & Weight: Anesthesia: Height & Weight Height 4 ft 11.84 in 03/25/25 12:15 Weight: 71.6 kg 03/25/25 12:15 Body Mass Index (BMI) 30.9 03/25/25 12:15 Respiratory Assessment Respiratory Assessment - timber incisor operator: Respiratory Tract Infection Hx - timber incisor operator Hx Respiratory Tract Infection Yes 03/24/25 22:56 Any additional information?: Yes Hx Respiratory Tract Infection: Yes History of Anesthesia Respiratory Infection details: Patient have presented with pneumonia 4 days ago. Currently being treated. Patient feels much better. 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: Hematologic 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 Hx of Blood Transfusion No 03/21/25 00:32 [...] confused, unrespo /Reproduction History /Reproductive History - timber incisor operator: /Reproductive Hx- timber incisor operator Hx Now No 03/24/25 22:56 Gestational Age [...] mls @ 15 mls/hr 03/21/25 00:24 IV .[id number] PRN Saline Flush Sodium Chloride 250 mls @ 15 mls/hr 03/21/25 00:24 IV .[id number] PRN Additional IVPB Infusion Lactated Ringer's 1,000 [...] Oral Tablet 20 Meq PO Not [facility] Senna/Docusate Sodium 1 tablet 03/22/25 10:00 03/25/25 08:54 Senna/Docusate Sodium 1 Tablet PO Not Given BID KASH Sodium Chloride 10 - 40 ml 03/21/25 00:24 03/25/25 12:25 0.9% Saline Lock 10 Ml Syringe IV 10 ml UD PRN Administration SALINE FLUSH Spironolactone 25 mg 03/23/25 10:00 03/25/25 08:53 Spironolactone 25 Mg Tablet PO Not Given DAILY [facility] Protocol [facility] Medical History Cirrhosis MRSA (methicillin resistant staph [...] MD Cosigner Signature: Date CC: ~ Signed [facility]06-03-2025 Progress note Author Troy Akins [facility] Note Date/Time March 25, 2025 9:38a [facility] Medical Records Department [address] [place] [address] Progress Note - Hospitalist 03/25/25 0937 MR#: [id number] Acct: [id number] Name: AISHA HA Rep #:[id number] : 1965 60 From: Troy Akins MD PCP: Dr. Geovani Gay MD Status:ADM IN Location: [place] [address] Reason for Visit Reason for Visit: Diagnoses [...] documentation, 36Minutes Charges/Coding Visit Charges Inpatient E&M: 57612 Subs Hosp L2 03/25/25 0938 <Electronically signed by Troy Akins MD> Cosigner Signature (if applicable): CC: ~ Signed [facility] Work Phone: 1(941) 529-940706-03-2025 Progress note [facility] Medical Records Department [address] [place] [address] Progress Note - Hospitalist 03/25/25 0937 MR#: [id number] Acct: [id number] Name: AISHA HA Rep #:[id number] : 1965 60 From: Troy Akins MD PCP: Dr. Geovani Gay MD Status:ADM IN Location: [place] [address] Reason for Visit Reason for Visit: Diagnoses [...] documentation, 36Minutes Charges/Coding Visit Charges Inpatient E&M: 48821 Subs Hosp L2 03/25/25 0938 Cosigner Signature (if applicable): CC: ~ Signed [facility]06-02-2025 Consult note Author Cal Bahena [facility] Note Date/Time March 24, 2025 7:19p m [facility] Medical Records Department [address] [place] [address] Consultation - GI 03/24/251912 MR#: [id number] Acct: [id number] Name: AISHA HA Rep #:[id number] : 1965 60 From: Cal Bahena DO PCP: Dr. Geovani Gay MD Status:ADM IN Location: [place] [address] HPI Consult Data Date of Consult: 03/24/25 [...] liver, which may represent fibrosis/cirrhosis. [facility] Medical History (Updated 03/24/25 @ 19:17 by [...] % (Auto) 69.6, Lymph % (Auto) 22.9, [place] % (Auto) 6.5, Eos % (Auto) 0.1, [...] past midnight Charges/Coding Visit Charges Inpatient E&M: 07236 Init Hosp L3 03/24/251918 <Electronically signed by Cal Bahena DO> Cosigner Signature (if applicable): CC: Dr. Geovani Gay MD~ Signed [facility] Work Phone: 1(969) 213-232406-02-2025 Consult note [facility] Medical Records Department [address] [place] [address] Consultation - GI 03/24/251912 MR#: [id number] Acct: [id number] Name: AISHA HA Rep #:[id number] : 1965 60 From: Cal Bahena DO PCP: Dr. Geovani Gay MD Status:ADM IN Location: [place] [address] HPI Consult Data Date of Consult: 03/24/25 [...] liver, which may represent fibrosis/cirrhosis. [facility] Medical History (Updated 03/24/25 @ 19:17 by [...] % (Auto) 69.6, Lymph % (Auto) 22.9, [place] % (Auto) 6.5, Eos % (Auto) 0.1, [...] past midnight Charges/Coding Visit Charges Inpatient E&M: 05715 Init Hosp L3 03/24/251918 Cosigner Signature (if applicable): CC: Dr. Geovani Gay MD~ Signed [facility]06-02-2025 Progress note Author Troy Akins [facility] Note Date/Time March 24, 2025 9:37a m [facility] Medical Records Department [address] [place] [address] Progress Note - Hospitalist 03/24/25 0829 MR#: [id number] Acct: [id number] Name: AISHA HA Rep #:[id number] : 1965 60 From: Troy Akins MD PCP: Dr. Geovani Gay MD Status:ADM IN Location: [place] [address] Reason for Visit Reason for Visit: Diagnoses [...] % (Auto) 69.6, Lymph % (Auto) 22.9, [place] % (Auto) 6.5, Eos % (Auto) 0.1, [...] liver, which may represent fibrosis/cirrhosis. Reading Location: [facility] Physical Exam Narrative GENERAL: cooperative [...] management initiated Charges/Coding Visit Charges Inpatient E&M: 07471 Subs Hosp L2 03/24/25 0937 <Electronically signed by Troy Akins MD> Cosigner Signature (if applicable): CC: ~ Signed [facility] Work Phone: 1(475) 158-769506-02-2025 Progress note [facility] Medical Records Department [address] [place] [address] Progress Note - Hospitalist 03/24/25828 MR#: [id number] Acct: [id number] Name: AISHA HA Rep #:[id number] : 1965 60 From: Troy Akins MD PCP: Dr. Geovani Gay MD Status:ADM IN Location: [place] [address] Reason for Visit Reason for Visit: Diagnoses [...] % (Auto) 69.6, Lymph % (Auto) 22.9, [place] % (Auto) 6.5, Eos % (Auto) 0.1, [...] liver, which may represent fibrosis/cirrhosis. Reading Location: [facility] Physical Exam Narrative GENERAL: cooperative [...] management initiated Charges/Coding Visit Charges Inpatient E&M: 51787 Subs Hosp L2 03/24/25 0937 Cosigner Signature (if applicable): CC: ~ Signed [facility]06-01-2025 Radiology Diagnostic study note [facility] Imaging Services [address] [place], [place] [address] CTA Chest W/WO Contrast MR#: [id number] Acct: [id number] Name: AISHA HA Rep #: [id number] : 1965 F 60 From: Radha Cabral MD PCP: Dr. Geovani Gay MD Status: ADM IN Study:CTA Chest W/WO Contrast Date of Exam: 03/23/25 Exam# [id number] Ordering Dr: Clarisa Akins MD PROCEDURE: CTA [...] liver, which may represent fibrosis/cirrhosis. Reading Location: [facility] CC: Dr. Geovani Gay MD; Dr. Troy Akins MD ~ Sterile Processing Technician: Signed [facility]06-01-2025 Progress note Author Troy Akins [facility] Note Date/Time March 23, 2025 8:51a m [facility] Medical Records Department [address] [place] [address] Progress Note - Hospitalist 03/23/25 0735 MR#: [id number] Acct: [id number] Name: AISHA HA Rep #:[id number] : 1965 60 From: Troy Akins MD PCP: Dr. Geovani Gay MD Status:ADM IN Location: [place] [address] Reason for Visit Reason for Visit: Diagnoses [...] % (Auto) 69.2, Lymph % (Auto) 23.0, [place] % (Auto) 6.8, Eos % (Auto) 0.1, [...] management initiated Charges/Coding Visit Charges Inpatient E&M: 82717 Subs Hosp L2 03/23/25 0851 <Electronically signed by Troy Akins MD> Cosigner Signature (if applicable): CC: ~ Signed [facility] Work Phone: 1([phone]) 619-359706-01-2025 Progress note [facility] Medical Records Department [address] [place] [address] Progress Note - Hospitalist 03/23/25 0735 MR#: [id number] Acct: [id number] Name: AISHA HA Rep #:[id number] : 1965 60 From: Troy Akins MD PCP: Dr. Geovani Gay MD Status:ADM IN Location: [place] [address] Reason for Visit Reason for Visit: Diagnoses [...] % (Auto) 69.2, Lymph % (Auto) 23.0, [place] % (Auto) 6.8, Eos % (Auto) 0.1, [...] management initiated Charges/Coding Visit Charges Inpatient E&M: 18115 Subs Hosp L2 03/23/25 0851 Cosigner Signature (if applicable): CC: ~ Signed [facility]05-31-2025 Progress note Author Troy Akins [facility] Note Date/Time March 22, 2025 9:40a [facility] Medical Records Department [address] [place] [address] Progress Note - Hospitalist 03/22/25 0935 MR#: [id number] Acct: [id number] Name: AISHA HA Rep #:[id number] : 1965 60 From: Troy Akins MD PCP: Dr. Geovani Gay MD Status:ADM IN Location: [place] [address]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 [id number] Evaluation + Plan note* Assessment & Plan Note - Geovani Gay MD - 12/08/2023 10:28 AM ESTAssociated Problem(s): COPD (chronic obstructive pulmonary disease) (HCC) COPD stable continue Cymbalta, Spiriva Respimat, albuterol inhaler and DuoNeb solution for her nebulizer. [place] [id number] Evaluation + Plan note* Assessment & Plan Note - Geovani Gay MD - 12/08/2023 10:27 AM ESTAssociated Problem(s): Seizure disorder (CMS/HCC) (HCC) Stable, no recent seizures continue Tegretol 100 mg every 1212 hrs. and Keppra 500 mg daily [facility] Xfytzj07-24-4450 History of Present illness Narrative* Karolina Gil [...] MD 12/08/2023 10:35 AM documented in this [facility]12-14-2023 Evaluation + Plan note* Assessment & Plan Note - Geovani Gay MD - 10/05/2023 12:38 PM EST Associated Problem(s): Acute non-recurrent pansinusitis Augmentin 875 twice daily x 10 days. Prednisone take as directed x 10 days. Mucinex, avoid decongestants. [facility] HealthFdvime80-15-5011 Miscellaneous Notes* Assessment & Plan Note - [...] accepted: Level of Service documented in this [facility]12-14-2023 Evaluation + Plan note* Assessment & Plan Note - Geovani Gay MD - 10/05/2023 12:37 PM EST Associated Problem(s): Hypertension Blood pressure was initially elevated, recheck was still little high we will have her follow-up in 1 to 2 weeks when she is feeling better. [facility] HealthXnwudh32-40-0468 Evaluation + Plan note* Assessment & Plan Note - Geovani Gay MD - 10/05/2023 12:37 PM ESTAssociated Problem(s): Bronchitis Augmentin 875 twice daily. Prednisone use as directed. Continue inhalers and nebulizers. [facility] HealthPdejkj69-30-6312 History of Present illness Narrative* Jenelle Garcia [...] MD 10/06/2023 12:47 PM documented in this [facility]12-14-2023 Note* Addendum Note - Geovani Gay MD - 10/05/2023 10:15 AM ESTAddended by: GEOVANI GAY on: 10/06/2023 12:48 PM Modules accepted: Level of Service [facility] HealthNzrjsh06-18-5917 Telephone encounter Note* Telephone Encounter - GARETH Calloway CNP - 10/03/2023 12:09 PM EST Reviewed chart. Refill appropriate. RX sent. [address]Mswwvz59-24-3240 Miscellaneous Notes* Telephone Encounter - GARETH Calloway [...] 90 days 1 refill documented in this [facility]12-12-2023 Telephone encounter Note* Telephone Encounter - Chasity Valenzuela MA - 10/03/2023 11:08 AM EST Prescription Request: Last medication check: 09/08/23 Last physical exam: 06/15/23 Next scheduled appointment: 12/08/23 Last date of refill on this medication Vitamin D 07/24/23 4 capsules 1 refill Lisinopril 06/22/23 90 days 1 refill [place] [id number] Telephone encounter Note* Telephone Encounter - Chasity Valenzuela MA - 10/03/2023 11:07 AM EST Prescription Request: Last medication check: 09/08/23 Last physical exam: 06/15/23 Next scheduled appointment: 12/08/23 Last date of refill on this medication Keppra 06/22/23 90 days 1 refill Carbamazapine 06/22/23 90 days 1 [address]ill [address]Drhsrn54-11-5343 Miscellaneous Notes* Telephone Encounter - Chasity Valenzuela MA - 10/03/2023 11:07 AM EST Prescription Request: Last medication check: 09/08/23 Last physical exam: 06/15/23 Next scheduled appointment: 12/08/23 Last date of refill on this medication Keppra 06/22/23 90 days 1 refill Carbamazapine 06/22/23 90 days 1 refill documented in this encounterSAshtabula County Medical CenterOcumxo54-57-2490 Telephone encounter Note* Telephone Encounter - GARETH Calloway CNP - 09/22/2023 10:52 AM EST Reviewed chart. Refill appropriate. RX sent. [address]Yedypp39-18-2061 Miscellaneous Notes* Telephone Encounter - GARETH Calloway [...] 05/22/2023 (O) Report Adh: Taking: Long-term: Pharmacy: [facility]/pharmacy #[id number] - [place], [place] - [...] up the medication: Yes documented in this [facility]12-01-2023 Telephone encounter Note* Telephone Encounter - Rhina Barker - 09/22/2023 10:17 AM EST Images from the original note were not included. Medication name: tiotropium (Spiriva Respimat) 2.5 MCG/ACT inhaler 3 ordered Summary: INHALE 2 PUFFS AT THE SAME TIME EVERY DAY, Normal Start: 05/22/2023 Ord/Sold: 05/22/2023 (O) Report Adh: Taking: Long-term: Pharmacy: [facility]/pharmacy #[id number] - [place], [place] - [...] prior to picking up the medication: Yes [facility] HealthCkghut32-68-2239 Telephone encounter Note* Telephone Encounter - GARETH Calloway CNP - 09/11/2023 12:50 PM EST Reviewed chart. Refill appropriate. RX sent. [facility] HealthKmfooe45-31-6763 Miscellaneous Notes* Telephone Encounter - GARETH Calloway CNP - 09/11/2023 12:50 PM EST Reviewed chart. Refill appropriate. RX sent. * Telephone Encounter - Jenelle Garcia MA - 09/11/2023 11:30 AM EST Prescription Request: Last medication check: 12-21-22 Last physical exam: 06-15-23 Next scheduled appointment: 12/08/23 Last date of refill on this medication 03/07/23 documented in this [facility]11-20-2023 Telephone encounter Note* Telephone Encounter - Jeenlle Garcia MA - 09/11/2023 11:30 AM EST Prescription Request: Last medication check: 12-21-22 Last physical exam: 06-15-23 Next scheduled appointment: 12/08/23 Last date of refill on this medication 03/07/23 [place] [id number] Evaluation + Plan note* Assessment & Plan Note - Geovani Gay MD - 09/08/2023 11:35 AM ESTAssociated Problem(s): Anxiety Partial remission, continue Cymbalta 30 mg twice a day and Xanax as needed. [place] [id number] Evaluation + Plan note* Assessment & Plan Note - Geovani Gay MD - 09/08/2023 11:35 AM ESTAssociated Problem(s): Depression Partial remission, continue Cymbalta 30 mg twice a day [facility] HealthUjxzes18-85-5829 Miscellaneous Notes* Assessment & Plan Note - [...] DuoNeb solution for nebulizer. documented in this [facility]11-17-2023 Evaluation + Plan note* Assessment & Plan Note - Geovani Gay MD - 09/08/2023 11:34 AM EST Associated Problem(s): Chronic nausea Uncontrolled, continue Zofran 4 mg twice a day [facility] HealthBppcen84-17-7756 Evaluation + Plan note* Assessment & Plan Note - Geovani Gay MD - 09/08/2023 11:34 AM ESTAssociated Problem(s): GERD (gastroesophageal reflux disease) Stable, continue omeprazole 40 mg daily [place] [id number] Evaluation + Plan note* Assessment & Plan Note - Geovani Gay MD - 09/08/2023 11:33 AM ESTAssociated Problem(s): Hypertension Controlled, continue amlodipine 10 mg and lisinopril 20 mg and metoprolol 25 mg daily. [facility] HealthXsknpi82-32-1733 Evaluation + Plan note* Assessment & Plan Note - Geovani Gay MD - 09/08/2023 11:32 AM ESTAssociated Problem(s): COPD (chronic obstructive pulmonary disease) (HCC) Stable, continue current inhalers, Cymbalta and 60 days 4.5, Spiriva Respimat and albuterol and DuoNeb solution for nebulizer. [place] [id number] History of Present illness Narrative* Karolina Gil [...] of major depressive disorder, unspecified whether recurrent ([facility]) Assessment & Plan: Partial remission, continue Cymbalta [...] any adverse reaction immediately. documented in this [facility]10-26-2023 Telephone encounter Note* Telephone Encounter - GARETH Calloway CNP - 08/17/2023 4:48 PM EDT Reviewed chart. Refill appropriate. RX sent. [facility] HealthRnzksb34-86-3764 Miscellaneous Notes* Telephone Encounter - GARETH Calloway CNP - 08/17/2023 4:48 PM EDT Reviewed chart. Refill appropriate. RX sent. * Telephone Encounter - Jenelle Garcia MA - 08/17/2023 3:02 PM EDT Prescription Request: Last medication check: 12-21-22 Last physical exam: 06-15-23 Next scheduled appointment: 09-04-23 Last date of refill on this medication 12/22/22 documented in this [facility]10-26-2023 Telephone encounter Note* Telephone Encounter - Jenelle Garcia MA - 08/17/2023 3:02 PM EDT Prescription Request: Last medication check: 12-21-22 Last physical exam: 06-15-23 Next scheduled appointment: 09-04-23 Last date of refill on this medication 12/22/22 [facility] HealthEovodc97-02-0007 Telephone encounter Note* Telephone Encounter - GARETH Calloway CNP - 07/24/2023 3:46 PM EDT Reviewed chart. Refill appropriate. RX sent. [place] [id number] Miscellaneous Notes* Telephone Encounter - GARETH Calloway CNP - 07/24/2023 3:46 PM EDT Reviewed chart. Refill appropriate. RX sent. * Telephone Encounter - Mirella Sanders - 07/24/2023 2:45 PM EDT Prescription Request: Last medication check: 12-21-22 Last physical exam: 06-15-23 Next scheduled appointment: 09-04-23 Last date of refill on this medication 01-30-23 documented in this encounterSAshtabula County Medical CenterEuviwz14-00-0791 Telephone encounter Note* Telephone Encounter - GARETH Calloway CNP - 07/24/2023 3:45 PM EDT Reviewed chart. Refill appropriate. RX sent. [place] [id number] Miscellaneous Notes* Telephone Encounter - GARETH Calloway CNP - 07/24/2023 3:45 PM EDT Reviewed chart. Refill appropriate. RX sent. * Telephone Encounter - Mirella Sanders - 07/24/2023 2:49 PM EDT Prescription Request: Last medication check: 12-21-22 Last physical exam: 06-15-23 Next scheduled appointment: 09-04-23 Last date of refill on this medication 04-17-23 documented in this [facility]10-02-2023 Telephone encounter Note* Telephone Encounter - Mirella Sanders - 07/24/2023 2:49 PM EDT Prescription Request: Last medication check: 12-21-22 Last physical exam: 06-15-23 Next scheduled appointment: 09-04-23 Last date of refill on this medication 04-17-23 [facility] HealthAlhopr80-61-7220 Telephone encounter Note* Telephone Encounter - Mirella Sanders - 07/24/2023 2:45 PM EDT Prescription Request: Last medication check: 12-21-22 Last physical exam: 06-15-23 Next scheduled appointment: 09-04-23 Last date of refill on this medication 01-30-23 [facility] HealthZhyshz21-53-4862 Telephone encounter Note* Telephone Encounter - GARETH Calloway CNP - 06/22/2023 11:49 AM EDT Reviewed chart. Refill appropriate. RX sent. [facility] HealthSrqleq93-15-7782 Miscellaneous Notes* Telephone Encounter - GARETH Calloway CNP - 06/22/2023 11:49 AM EDT Reviewed chart. Refill appropriate. RX sent. * Telephone Encounter - Dania Triindad - 06/22/2023 10:10 AM EDT Prescription Request: Last medication check: 09/07/22 Last physical exam: 06/15/23 Next scheduled appointment: 09/04/23 documented in this [place] [address]-31-2023 Telephone encounter Note* Telephone Encounter - Dania Trinidad - 06/22/2023 10:10 AM EDT Prescription Request: Last medication check: 09/07/22 Last physical exam: 06/15/23 Next scheduled appointment: 09/04/23 [place] [id number] Telephone encounter Note* Telephone Encounter - Dania Trinidad - 06/22/2023 10:06 AM EDT Prescription Request: Last medication check: 09/07/22 Last physical exam: 06/15/23 Next scheduled appointment: 09/04/23 [place] [id number] Miscellaneous Notes* Telephone Encounter - Dania Trinidad - 06/22/2023 10:06 AM EDT Prescription Request: Last medication check: 09/07/22 Last physical exam: 06/15/23 Next scheduled appointment: 09/04/23 documented in this [place] [address]-28-2023 Telephone encounter Note* Telephone Encounter - Chasity Valenzuela MA - 06/19/2023 2:40 PM EDT Patient [address]. [address]Tohtym79-01-2885 Miscellaneous Notes* Telephone Encounter - Chasity Valenzuela [...] 12/22/22 10.5g 5 refills documented in this encounterSAshtabula County Medical CenterArqqti96-00-5844 Telephone encounter Note* Telephone Encounter - GARETH Fragoso CNP - 06/19/2023 12:42 PM EDT Rx sent. Due for follow up in August- please schedule. [place] [id number] Telephone encounter Note* Telephone Encounter - Chasity Valenzuela MA - 06/19/2023 11:18 AM EDT Prescription Request: Last medication check: 12/21/22 Last physical exam: 06/15/23 Next scheduled appointment: none Last date of refill on this medication 12/22/22 10.5g 5 refills [place] [id number] Evaluation + Plan note* Assessment & Plan [...] get her set up with oxygen IGNACIA [facility] HealthAdlajf96-40-4525 Evaluation + Plan note* Assessment & Plan Note - Geovani Gay MD - 06/15/2023 10:42 AM EDTAssociated Problem(s): Hyperlipidemia Controlled, continue a atorvastatin 80 mg daily T [facility] HealthWgpawf65-66-5357 Evaluation + Plan note* Assessment & Plan Note - Geovani Gay MD - 06/15/2023 10:42 AM EDTAssociated Problem(s): Depression Partial remission, follow-up with psychiatry as scheduled T [place] [id number] Evaluation + Plan note* Assessment & Plan Note - Geovani Gay MD - 06/15/2023 10:42 AM EDTAssociated Problem(s): Current smoker Discussed smoking cessation and especially if she will be on oxygen she cannot smoke. She agrees. [place] [id number] Miscellaneous Notes* Assessment & Plan Note - [...] * Assessment & Plan Note - Geovani aGy MD - 06/15/2023 10:42 AM EDT Associated [...] with neurology as scheduled. documented in this [facility]08-24-2023 Evaluation + Plan note* Assessment & Plan Note - Geovani Gay MD - 06/15/2023 10:41 AM EDT Associated Problem(s): Anxiety Stable, currently off of BuSpar continue Xanax as needed follow-up with psychiatry as needed. [facility] HealthOmgvgg27-92-5159 Evaluation + Plan note* Assessment & Plan Note - Geovani Gay MD - 06/15/2023 10:41 AM EDTAssociated Problem(s): Vitamin D deficiency Stable, continue vitamin D 50,000 units weekly [facility] HealthDytahw92-10-0752 Evaluation + Plan note* Assessment & Plan Note - Geovani Gay MD - 06/15/2023 10:40 AM EDTAssociated Problem(s): Fibromyalgia Stable, continue Cymbalta 30 mg twice a day [facility] HealthDmcaxr18-09-9145 Evaluation + Plan note* Assessment & Plan Note - Geovani Gay MD - 06/15/2023 10:40 AM EDTAssociated Problem(s): Hypertension Blood pressure was initially elevated, recheck was normal continue metoprolol 25 mg daily and lisinopril 20 mg daily and amlodipine 10 mg daily [place] [id number] Evaluation + Plan note* Assessment & Plan Note - Geovani Gay MD - 06/15/2023 10:39 AM EDTAssociated Problem(s): COPD (chronic obstructive pulmonary disease) (HCC) Stable, continue Symbicort 160/4.5, Spiriva 2.5 mcg and albuterol as needed. We will check her oxygen saturation walking and then with oxygen on to see if she qualifies for oxygen. [facility] [id number] Evaluation + Plan note* Assessment & Plan Note - Geovani Gay MD - 06/15/2023 10:38 AM EDTAssociated Problem(s): Asthma Stable, currently using Symbicort 160/4.5, Spiriva 2.5 mcg and albuterol as needed. [facility] [id number] Evaluation + Plan note* Assessment & Plan Note - Geovani Gay MD - 06/15/2023 10:38 AM EDTAssociated Problem(s): Seizure disorder (CMS/HCC) (HCC) Stable, continue Keppra and Tegretol at current doses, follow-up with neurology as scheduled. [facility] [id number] History of Present illness Narrative* Karolina Gil [...] I am unable to verify coverage on [employer] website/LUF68-xucpwa/Had 3 COVID vaccines/TDAP/TD-declines, doesn't think insurance will [...] any adverse reaction immediately. documented in this encounterSAshtabula County Medical CenterWfqhwd74-77-9369 Telephone encounter Note* Telephone Encounter - GARETH Calloway CNP - 05/22/2023 2:09 PM EDT Reviewed chart. Refill not appropriate, too soon. RX refused [facility] [id number] Miscellaneous Notes* Telephone Encounter - GARETH Calloway CNP - 05/22/2023 2:09 PM EDT Reviewed chart. Refill not appropriate, too soon. RX refused * Telephone Encounter - Dania Trinidad - 05/22/2023 10:54 AM EDT Prescription Request: Last medication check: 12/21/22 Last physical exam: 06/13/22 Next scheduled appointment: 06/15/23 Last date of refill on this medication 12/22/22 documented in this [facility]07-31-2023 Telephone encounter Note* Telephone Encounter - GARETH Calloway CNP - 05/22/2023 11:07 AM EDT Reviewed chart. Refill appropriate. RX sent. [place] [id number] Miscellaneous Notes* Telephone Encounter - GARETH Calloway CNP - 05/22/2023 11:07 AM EDT Reviewed chart. Refill appropriate. RX sent. * Telephone Encounter - Dania Trinidad - 05/22/2023 10:53 AM EDT Prescription Request: Last medication check: 12/21/22 Last physical exam: 06/13/22 Next scheduled appointment: 06/15/23 Last date of refill on this medication 01/30/23 documented in this [place] [id number] Telephone encounter Note* Telephone Encounter - Dania Trinidad - 05/22/2023 10:54 AM EDT Prescription Request: Last medication check: 12/21/22 Last physical exam: 06/13/22 Next scheduled appointment: 06/15/23 Last date of refill on this medication 12/22/22 [place] [id number] Telephone encounter Note* Telephone Encounter - Dania Trinidad - 05/22/2023 10:53 AM EDT Prescription Request: Last medication check: 12/21/22 Last physical exam: 06/13/22 Next scheduled appointment: 06/15/23 Last date of refill on this medication 01/30/23 [facility] HealthPhpgqo21-29-1843 Telephone encounter Note* Telephone Encounter - GARETH Fragoso CNP - 05/08/2023 9:45 AM EDT Rx sent for Zofran. Lisinopril should not be due for refill until June. [place] [id number] Miscellaneous Notes* Telephone Encounter - GARETH Fragoso [...] Zofran 11-15-22 Lisinopril 12-22-22 documented in this encounterSAshtabula County Medical CenterVjpydb52-35-0610 Telephone encounter Note* Telephone Encounter - Mirella Sanders - 05/08/2023 9:29 AM EDT Prescription Request: Last medication check: 12-21-22 Last physical exam: 06-13-22 Next scheduled appointment: 06-15-23 Last date of refill on this medication Zofran 11-15-22 Lisinopril 12-22-22 [facility] HealthSxtwen45-44-4118 Telephone encounter Note* Telephone Encounter - GARETH Fragoso CNP - 04/17/2023 12:59 PM EDT Rx sent. Follow up as scheduled. [facility] [id number] Miscellaneous Notes* Telephone Encounter - GARETH Fragoso CNP - 04/17/2023 12:59 PM EDT Rx sent. Follow up as scheduled. * Telephone Encounter - Jenelle Garcia MA - 04/17/2023 11:04 AM EDT Prescription Request: Last medication check: 12/21/22 Last physical exam: 06/13/22 Next scheduled appointment: 06/15/23 Last date of refill on this medication 01/11/23 documented in this encounterSAshtabula County Medical CenterUwblay12-22-8110 Telephone encounter Note* Telephone Encounter - Jenelle Garcia MA - 04/17/2023 11:04 AM EDT Prescription Request: Last medication check: 12/21/22 Last physical exam: 06/13/22 Next scheduled appointment: 06/15/23 Last date of refill on this medication 01/11/23 [facility] [id number] Telephone encounter Note* Telephone Encounter - GARETH Calloway CNP - 03/01/2023 7:29 AM EDT Reviewed chart. Refill appropriate. RX sent. [facility] [id number] Miscellaneous Notes* Telephone Encounter - GARETH Calloway [...] refill on both meds documented in this encounterSAshtabula County Medical CenterNgmwya92-66-2389 Telephone encounter Note* Telephone Encounter - Karolina Gil MA - 03/01/2023 6:57 AM EDT Prescription Request: Last medication check: 12/21/22 Last physical exam: none Next scheduled appointment: 06/15/23 CSA on file (date): na Last urine drug screen: na Last date of refill on this medication 09/19/22 90 day 1 refill on both meds [facility] [id number] Telephone encounter Note* Telephone Encounter - GARETH Calloway CNP - 01/30/2023 10:50 AM EDT Reviewed chart. Refill appropriate. RX sent. [facility] [id number] Miscellaneous Notes* Telephone Encounter - GARETH Calloway CNP - 01/30/2023 10:50 AM EDT Reviewed chart. Refill appropriate. RX sent. * Telephone Encounter - Jenelle Garcia MA - 01/30/2023 9:37 AM EDT Prescription Request: Last medication check: 12/21/22 Last physical exam: 06/13/22 Next scheduled appointment: 06/15/23 Last date of refill on this medication: 10/27/22 documented in this [place] [id number] Telephone encounter Note* Telephone Encounter - GARETH Calloway CNP - 01/30/2023 10:48 AM EDT Reviewed chart. Refill appropriate. RX sent. [facility] HealthFqqgqv61-59-4743 Miscellaneous Notes* Telephone Encounter - GARETH Calloway CNP - 01/30/2023 10:48 AM EDT Reviewed chart. Refill appropriate. RX sent. * Telephone Encounter - Jenelle Garcia MA - 01/30/2023 9:36 AM EDT Prescription Request: Last medication check: 12/21/22 Last physical exam: 06/13/22 Next scheduled appointment: 06/15/23 Last date of refill on this medication: 09/19/22 documented in this [place] [id number] Telephone encounter Note* Telephone Encounter - Jenelle Garcia MA - 01/30/2023 9:37 AM EDT Prescription Request: Last medication check: 12/21/22 Last physical exam: 06/13/22 Next scheduled appointment: 06/15/23 Last date of refill on this medication: 10/27/22 [facility] HealthLzrsci93-04-0789 Telephone encounter Note* Telephone Encounter - Jenelle Garcia MA - 01/30/2023 9:36 AM EDT Prescription Request: Last medication check: 12/21/22 Last physical exam: 06/13/22 Next scheduled appointment: 06/15/23 Last date of refill on this medication: 09/19/22 [facility] HealthLwyset19-90-5262 Telephone encounter Note* Telephone Encounter - Jenelle Garcia MA - 01/11/2023 2:22 PM EDT Prescription Request: Last medication check: yesterday Last physical exam: 06/13/22 Next scheduled appointment: 06/15/22 Last date of refill on this medication 12/14/22 [facility] HealthEzvejt85-38-1491 Miscellaneous Notes* Telephone Encounter - Jenelle Garcia MA - 01/11/2023 2:22 PM EDT Prescription Request: Last medication check: yesterday Last physical exam: 06/13/22 Next scheduled appointment: 06/15/22 Last date of refill on this medication 12/14/22 documented in this encounterSAshtabula County Medical CenterQbguib45-49-1039 Procedure [facility]03-13-2023 Procedure [facility]03-13-2023 Procedure [facility]03-13-2023 Procedure [facility]03-13-2023 History and physical note Author Cal Friend [facility] January 02, 2023 9:00am Note Date/Time January 02, 2023 9:0 0[facility] Medical Records Department [address] [place] [address] History & Physical Exam 01/02/23 0900 MR#: [id number] Acct: [id number] Name: AISHA HA Rep #:[id number] : 1965 57 From: Cal Friend PCP: Dr. Geovani Gay MD Status:[facility] Location: [place] [address] History and Physical Date of Admission: 01/02/23 [...] I'm an alcoholic. Had cholecystectomy 04/2022 in [place], no change in GI symptoms after surgery.Takes [...] General: no jaundice Quality Reporting Tobacco Screening ([facility] 138) Smoking Status: Current every day smoker [...] Geovani Gay MD; Cal Bahena DO~ Signed [facility] Work Phone: 1(185) 665-183803-02-2023 Telephone encounter Note* Telephone Encounter - Dania Trinidad - 12/22/2022 12:02 PM EST Prescription Request: Last medication check: yesterday Last physical exam: 06/13/22 Next scheduled appointment: 06/15/22 Last date of refill on this medication Metoprolol 09/19/22 Symbicort 06/22/22 Norvasc 09/19/22 Lipitor 09/19/22 [facility] [id number] Miscellaneous Notes* Telephone Encounter - Dania Trinidad - 12/22/2022 12:02 PM EST Prescription Request: Last medication check: yesterday Last physical exam: 06/13/22 Next scheduled appointment: 06/15/22 Last date of refill on this medication Metoprolol 09/19/22 Symbicort 06/22/22 Norvasc 09/19/22 Lipitor 09/19/22 documented in this [facility]03-02-2023 Telephone encounter Note* Telephone Encounter - Dania Trinidad - 12/22/2022 12:01 PM EST Prescription Request: Last medication check: yesterday Last physical exam: 06/13/22 Next scheduled appointment: 06/15/22 Last date of refill on this medication 05/30/22 [place] [id number] Miscellaneous Notes* Telephone Encounter - Dania Trinidad - 12/22/2022 12:01 PM EST Prescription Request: Last medication check: yesterday Last physical exam: 06/13/22 Next scheduled appointment: 06/15/22 Last date of refill on this medication 05/30/22 documented in this [facility]03-01-2023 Evaluation + Plan note* Assessment & Plan Note - Geovani Gay MD - 12/21/2022 5:21 PM EST Associated Problem(s): Hyperlipidemia Controlled, continue atorvastatin 80 mg daily [facility] HealthSzrlsa07-72-0733 Miscellaneous Notes* Assessment & Plan Note - [...] Keppra 500 mg daily. documented in this [facility]03-01-2023 Evaluation + Plan note* Assessment & Plan Note - Geovani Gay MD - 12/21/2022 5:20 PM EST Associated Problem(s): Anxiety Stable, continue BuSpar 20 mg 3 times a day and Xanax as needed [facility] [id number] Evaluation + Plan note* Assessment & Plan Note - Geovani Gay MD - 12/21/2022 5:19 PM ESTAssociated Problem(s): Depression Partial remission, continue Lexapro 20 mg daily [facility] [id number] Evaluation + Plan note* Assessment & Plan Note - Geovani Gay MD - 12/21/2022 5:19 PM ESTAssociated Problem(s): GERD (gastroesophageal reflux disease) Controlled, continue omeprazole 40 mg daily [facility] [id number] Evaluation + Plan note* Assessment & Plan Note - Geovani Gay MD - 12/21/2022 5:18 PM ESTAssociated Problem(s): Hypertension Controlled, continue metoprolol 25 mg daily, lisinopril 20 mg twice a day and amlodipine 10 mg daily [facility] HealthQzupgn03-53-3323 Evaluation + Plan note* Assessment & Plan Note - Geovani Gay MD - 12/21/2022 5:17 PM ESTAssociated Problem(s): COPD (chronic obstructive pulmonary disease) (HCC) Stable, continue Symbicort, Spiriva Respimat and albuterol and stop smoking. [facility] [id number] Evaluation + Plan note* Assessment & Plan Note - Geovani Gay MD - 12/21/2022 5:17 PM ESTAssociated Problem(s): Seizure disorder (CMS/HCC) ([facility]) Stable, continue Tegretol 200 mg twice a day and Keppra 500 mg daily. [facility] HealthYrljsg13-48-9754 History of Present illness Narrative* Geovani Gay [...] MD 12/21/2022 5:21 PM documented in this [facility]02-21-2023 Telephone encounter Note* Telephone Encounter - Chasity Valenzuela - 12/13/2022 4:30 PM EST Prescription Request: Last medication check: 12/13/21 Last physical exam: 06/13/22 Next scheduled appointment: 12/14/22 Last date of refill on this medication 09/30/22 4 capsules 2 refills [facility] HealthPhjabf82-75-4484 Miscellaneous Notes* Telephone Encounter - Chasity Valenzuela - 12/13/2022 4:30 PM EST Prescription Request: Last medication check: 12/13/21 Last physical exam: 06/13/22 Next scheduled appointment: 12/14/22 Last date of refill on this medication 09/30/22 4 capsules 2 refills documented in this [facility]01-05-2023 Telephone encounter Note* Telephone Encounter - Jenelle Garcia MA - 10/27/2022 3:24 PM EST Prescription Request: Last medication check: 09/07/2022 Last physical exam: 06/13/22 Next scheduled appointment: 11/16/2022 Last date of refill on this medication: spiriva 06/27/22, zofran 10/07/22 [facility] HealthWvonzo13-70-4346 Miscellaneous Notes* Telephone Encounter - Jenelle Garcia MA - 10/27/2022 3:24 PM EST Prescription Request: Last medication check: 09/07/2022 Last physical exam: 06/13/22 Next scheduled appointment: 11/16/2022 Last date of refill on this medication: spiriva 06/27/22, zofran 10/07/22 documented in this [facility]07-06-2022 History of Present illness Narrative* Karolina Roa [...] nc [facility] Work Phone: 1(128) 291-842306-27-2022 Hospital Discharge instructions* Instructions* Silvia Santana RN [...] through Care Everywhere. * Cholecystectomy: General Info ([place]ian) * Cholecystectomy: Post-op ([place]ian) * Cholecystectomy: Pre-op ([place]) documented in this encounterSUMMA Work Phone: Consult note Author Jef Herman [facility] Note Date/Time March 25, 2025 4:15p m [facility] Medical Records Department [address] [place] [address] Anesthesia Postop Eval I 06/03/25 1614 MR#: [id number] Acct: [id number] Name: AISHA AH Rep #:[id number] : 1965 60 From: Jef LOJA PCP: Dr. Geovani Gay MD Status:ADM IN Y Race: C Location: [place] [address] 12-21 Anesthesia: Postop Eval I Current Vital [...] CRNA Cosigner Signature: Date CC: ~ Signed [facility] Work Phone: Consult note Author Jef [facility] Note Date/Time March 25, 2025 5:26p [facility] Medical Records Department [address] [place] [address] Anesthesia Postop Eval II 03/25/25 1617 MR#: [id number] Acct: [id number] Name: AISHA HA Rep #:[id number] : 1965 60 From: Jef LOJA PCP: Dr. Geovani Gay MD Status:ADM IN Y Race: C Location: [place] [address] 12-21 Anesthesia Postop Eval I Sum Postop Eval Completion status Anesthesia document: Postop Eval 1 completed: Yes Anesthesia Postop Eval I Summary Anesthesia Postop Eval I Summary: Anesthesia Postop Eval I: Assessment Summary Airway patent Yes 03/25/25 16:15 WIRE TEMPERER.MDOT Spontaneous unlabored Yes 03/25/25 16:15 WIRE TEMPERER.MDOT respirations Mental status Awake,Calm 03/25/25 16:15 WIRE TEMPERER.MDOT nausea No 03/25/25 16:15 WIRE TEMPERER.MDOT Vomiting No 03/25/25 16:15 WIRE TEMPERER.MDOT Anesthesia Postop Eval I: Fluid Summary Crystalloid volume administer 300 03/25/25 16:15 WIRE TEMPERER.MDOT (ml) Colloids volume administered ( ml) Blood Product volume administered (ml) Total IV fluid infused 300 03/25/25 16:15 WIRE TEMPERER.NORBERT Anesthesia Postop Eval I: Summary Notes Anesthesia Complication No 03/25/25 16:15 WIRE TEMPERER.NORBERT Anesthesia Complication Comment: Post-operative progress note Anesthesia: Postop Eval II Evaluation Mental status: Awake and Calm Pain Level: 0 nausea: No Vomiting: No Complications Anesthesia Complication: No 03/25/25 1617 <Electronically signed by Jef Herman CRNA> Date _ Jef Herman CRNA Cosigner Signature: Date CC: ~ Signed [facility] Work Phone: Discharge summary Author Troy Molinalia [facility] Note Date/Time March 25, 2025 5:04p [facility] Medical Records Department [address] [facility] [place] [address] Discharge Summary 03/25/25 1652 MR#: [id number] Acct: [id number] Name: AISHA HA Emma Rep #:[id number] : 1965 60 From: Troy Akins MD PCP: Dr. Geovani Gay MD Status:ADM IN Location: [facility] [id number] Providers Date of Admission: 03/20/25 Date [...] Self Care Charges/Coding Visit Charges Inpatient E&M: 46314 Disch Hosp >30min 03/25/25 1704 <Electronically signed by Troy Akins MD> Cosigner Signature (if applicable): CC: Dr. Geovani Gay MD; Dr. Troy Akins MD~ Signed [facility] Work Phone: Evaluation note* Diagnosis Chronic nausea Nausea alone RUQ abdominal pain Abdominal pain, right upper quadrant documented in this encounter [employer] Work Phone: Evaluation note* Diagnosis Onset Date Resolution Status Nicotine dependence, cigarettes, uncomplicated acute Asthma-COPD overlap syndrome chronic Chronic cholecystitis chroni c Cholelithiasis acute Nausea acute COPD chronic [facility] Work Phone: Evaluation note* Diagnosis Seizure disorder (HCC) Unspecified epilepsy without mention of intractable epilepsy documented in this encounter [facility] Work Phone: evaluation note* Diagnosis Calculus of gallbladder with acute on chronic cholecystitis without obstruction- Primary [facility] Work Phone: evaluation note* Diagnosis Lung nodule Solitary pulmonary nodule documented in this encounter [facility] Work Phone: evaluation note* Diagnosis Onset Date Resolution Status Alcohol use disorder acute Colon polyps acute Gastric reflux acute Nausea acute [facility] Work Phone: evaluation note* Diagnosis Vitamin D deficiency, unspecified [facility]* Diagnosis Chronic nausea Nausea alone [facility]* Diagnosis Onset Date Resolution Status Alcohol use disorder acute Colon polyps acute Gastric reflux acute Nausea acute Cirrhosis chronic [facility] Work Phone: evaluation note* Diagnosis Epilepsy, unspecified, not intractable, without status epilepticus (HCC) [facility]* Diagnosis Vitamin D deficiency, unspecified [facility]* Diagnosis Annual physical exam- Primary Routine [...] streptococcus pneumoniae (pneumococcus) [facility]* Diagnosis Chronic obstructive pulmonary disease, unspecified (HCC) [facility]* Diagnosis Epilepsy, unspecified, not intractable, without status epilepticus (HCC) [facility]* Diagnosis Multiple lung nodules on CT documented [facility]* Diagnosis Vitamin D deficiency, unspecified [facility]* Diagnosis Chronic nausea Nausea alone [facility]* Diagnosis Primary hypertension Unspecified essential hypertension [...] Hyposmolality and/or hyponatremia [facility]* Diagnosis Acute non-recurrent frontal sinusitis- [...] nausea Nausea alone [facility] Diagnosis Acute non-recurrent frontal sinusitis- Primary Primary hypertension Unspecified essential hypertension Seizure disorder ([facility]) ([facility])- Primary Unspecified epilepsy without mention of intractable epilepsy Chronic obstructive pulmonary disease, unspecified COPD type (HCC) Primary hypertension Unspecified essential hypertension Gastroesophageal reflux disease without esophagitis Esophageal reflux Mixed hyperlipidemia Current mild episode of major depressive disorder, unspecified whether recurrent (HCC) Anxiety Anxiety state, unspecified Annual physical exam- Primary Routine general medical examination at a health care facility Seizure disorder ([facility]) ([facility]) Unspecified epilepsy without mention of intractable epilepsy Moderate asthma, unspecified whether complicated, unspecified whether persistent Chronic obstructive pulmonary disease, unspecified COPD type ([facility]) Primary hypertension Unspecified essential hypertension Fibromyalgia Unspecified [...] unspecified COPD type (HCC)- Primary Seizure disorder ([facility]) ([facility]) Unspecified epilepsy without mention of intractable epilepsy [...] Chronic obstructive pulmonary disease, unspecified COPD type ([facility])- Primary Abnormal liver function tests Hyponatremia Hyposmolality and/or hyponatremia Falls frequently Personal history of fall Ascites due to chronic alcoholic hepatitis Iron deficiency anemia, unspecified iron deficiency anemia type Generalized weakness Chronic obstructive pulmonary disease, unspecified ([facility])- Primary Primary hypertension Unspecified essential hypertension Hyperlipidemia, unspecified hyperlipidemia type Epilepsy, unspecified, not intractable, without status epilepticus (HCC) Vitamin D deficiency, unspecified Alcoholic cirrhosis of liver with ascites (CMS/HCC) (HCC) Chronic respiratory failure with hypoxia ([facility]) Hyponatremia Hyposmolality and/or hyponatremia Moderate asthma, unspecified whether complicated, unspecified whether persistent- Primary Chronic obstructive pulmonary disease, unspecified COPD type (HCC) Chronic respiratory failure with hypoxia (HCC) Primary hypertension Unspecified essential hypertension Nonintractable epilepsy without status epilepticus, unspecified epilepsy type (HCC) Gastroesophageal reflux disease without esophagitis Esophageal reflux Mixed hyperlipidemia Hyponatremia Hyposmolality and/or hyponatremia COPD with acute exacerbation ([facility])- Primary Acute non-recurrent frontal sinusitis Chronic obstructive [...] Chronic obstructive pulmonary disease, unspecified COPD type ([facility]) Primary hypertension Unspecified essential hypertension Fibromyalgia Unspecified [...] myalgia and myositis documented in this encounter [facility]* Diagnosis Acute non-recurrent frontal sinusitis- Primary Primary hypertension Unspecified essential hypertension Seizure disorder ([facility]) ([facility])- Primary Unspecified epilepsy without mention of intractable epilepsy Chronic obstructive pulmonary disease, unspecified COPD type (HCC) Primary hypertension Unspecified essential hypertension Gastroesophageal reflux disease without esophagitis Esophageal reflux Mixed hyperlipidemia Current mild episode of major depressive disorder, unspecified whether recurrent (HCC) Anxiety Anxiety state, unspecified Annual physical exam- Primary Routine general medical examination at a health care facility Seizure disorder ([facility]) ([facility]) Unspecified epilepsy without mention of intractable epilepsy Moderate asthma, unspecified whether complicated, unspecified whether persistent Chronic obstructive pulmonary disease, unspecified COPD type ([facility]) Primary hypertension Unspecified essential hypertension Fibromyalgia Unspecified [...] Chronic obstructive pulmonary disease, unspecified COPD type ([facility])- Primary Seizure disorder ([facility]) ([facility]) Unspecified epilepsy without mention of intractable epilepsy [...] Primary hypertension Unspecified essential hypertension Seizure disorder ([facility]) ([facility])- Primary Unspecified epilepsy without mention of intractable epilepsy Chronic obstructive pulmonary disease, unspecified COPD type (HCC) Primary hypertension Unspecified essential hypertension Gastroesophageal reflux disease without esophagitis Esophageal reflux Mixed hyperlipidemia Current mild episode of major depressive disorder, unspecified whether recurrent (HCC) Anxiety Anxiety state, unspecified Annual physical exam- Primary Routine general medical examination at a health care facility Seizure disorder ([facility]) ([facility]) Unspecified epilepsy without mention of intractable epilepsy [...] Chronic obstructive pulmonary disease, unspecified COPD type ([facility])- Primary Primary hypertension Unspecified essential hypertension Gastroesophageal reflux disease without esophagitis Esophageal reflux Chronic nausea Nausea alone Current mild episode of major depressive disorder, unspecified whether recurrent (HCC) Anxiety Anxiety state, unspecified Acute non-recurrent pansinusitis- Primary Bronchitis Bronchitis, not specified as acute or chronic Primary hypertension Unspecified essential hypertension Chronic obstructive pulmonary disease, unspecified COPD type ([facility])- Primary Seizure disorder ([facility]) ([facility]) Unspecified epilepsy without mention of intractable epilepsy [...] Generalized weakness Chronic obstructive pulmonary disease, unspecified ([facility])- Primary Primary hypertension Unspecified essential hypertension Hyperlipidemia, unspecified hyperlipidemia type Epilepsy, unspecified, not intractable, without status epilepticus (HCC) Vitamin D deficiency, unspecified Alcoholic cirrhosis of liver with ascites ([facility]) ([facility]) Chronic respiratory failure with hypoxia ([facility]) Hyponatremia Hyposmolality and/or hyponatremia Moderate asthma, unspecified [...] Fecal smearing Chronic respiratory failure with hypoxia ([facility]) Fibromyalgia Unspecified myalgia and myositis Glossitis- Primary [...] Unspecified essential hypertension [facility] Diagnosis Acute non-recurrent frontal sinusitis- Primary Primary hypertension Unspecified essential hypertension Seizure disorder ([facility]/HCC) (HCC)- Primary Unspecified epilepsy without mention of [...] unspecified COPD type (HCC)- Primary Seizure disorder ([facility]) (HCC) Unspecified epilepsy without mention of intractable [...] Primary hypertension Unspecified essential hypertension Seizure disorder ([facility]) ([facility])- Primary Unspecified epilepsy without mention of intractable epilepsy Chronic obstructive pulmonary disease, unspecified COPD type ([facility]) Primary hypertension Unspecified essential hypertension Gastroesophageal reflux disease without esophagitis Esophageal reflux Mixed hyperlipidemia Current mild episode of major depressive disorder, unspecified whether recurrent (HCC) Anxiety Anxiety state, unspecified Annual physical exam- Primary Routine general medical examination at a health care facility Seizure disorder ([facility]) ([facility]) Unspecified epilepsy without mention of intractable epilepsy Moderate asthma, unspecified whether complicated, unspecified whether persistent Chronic obstructive pulmonary disease, unspecified COPD type ([facility]) Primary hypertension Unspecified essential hypertension Fibromyalgia Unspecified [...] D deficiency, unspecified documented in this encounter [facility] Discharge instructions* Instructions* Bolivar Larsen MD - 04/27/2022 POST-OPERATIVE INSTRUCTIONS LAPAROSCOPIC/ROBOTIC SURGERY Thank you very much for allowing me to participate in your care, it is truly a privilege. Below please see discharge orders that will help you during your recovery. Please do not hesitate to call theoffice at [phone] for any questions. After hours, the same number will allow you to reach the on-call surgeon. ? Call the office to schedule your post-operative appointment with Dr. Larsen or PA/EXHAUST WORKER for 2 weeks if not already scheduled. [...] several days. Please call the office at [phone] for any questions and too make your post op appointment if needed. Thank you again for allowing me to participate in your care, and get well soon! Bolivar Larsen MD documented in this encounterSUMMA Work Phone: Hospital Discharge instructions* Attachments The following attachments cannot be sent through Care Everywhere. * Sinusitis Discharge Instructions, Adult ([place]) documented in this encounterSFisher-Titus [facility] Centerital Discharge instructions Ambulatory Orders* Prior Authorization Referral - ONC/HEM Location: None Selected [facility] Work Phone: Hospital Discharge instructionsAdditional Instructions Use your dacia nebulizer as needed. Prednisone 40 mg a day start tomorrow once a day for 7 days. The antibiotic Zithromax 1 pill a day starting tomorrow. Follow-up with your doctor if not improving return to emergency ferment if you are feeling worse. Your labs and chest x-ray today looked good.[facility] Work Phone: Instructions* Attachments The following attachments cannot be sent through Care Everywhere. * Flu Vaccine ([place]) documented in this encounterSAshtabula County Medical CenterReason for referral (narrative)No reason for referral information availableWHolzer Medical Center [facility] Work Phone: Instructions Instruction Description Start Date Patient advised to follow-up with Primary Care Physician for BMI management. Advance Directives No Advanced Directives Records FoundDocuments on File Type Date Recorded Patient Pigeon Fancier Expl anation Advance Directives and Living Will Power of Appeals Officer Latest Code Status on File Code Status Date Activated Date Inactivated Comments Full Code 09/19/2016 2:51 AM 09/23/2016 7:57 PM Documents on File Type Date Recorded Patient Pigeon Fancier Expl anation ACP-Advance Directive ACP-Power of Appeals Officer Latest Code Status on File Code Status Date Activated Date Inactivated Comments Full Code 09/19/2016 2:51 AM 09/23/2016 7:57 PM Documents on File Type Date Recorded Patient Pigeon Fancier Expl anation ACP-Advance Directive ACP-Power of Appeals Officer Advance Directive Response Recorded Date/ Time Living Will No May 21, 2021 3:17pm Power of Appeals Officer No May 21 3:17pm Latest Code Status [...] No December 27, 2022 11:29am Power of Appeals Officer No December 27 11:29am Advance Directive Response Recorded Date/ Time Do you have a Healthcare Power of Appeals Officer? Yes March 20, 2025 5:56pm Name of Medical Power of Appeals Officer shonda long March 20, 2025 5:56pm Advance Directive Response Recorded Date/ Time Do you have a Healthcare Power of Appeals Officer? Yes March 21, 2025 12:32am Name of Medical Power of Appeals Officer shonda long March 21, 2025 12:32am Advance Directive Response Recorded Date/ Time Do you have a Healthcare Pow er of Appeals Officer? No July 21, 2025 1:00pm Do you have a Healthcare Pow er of Appeals Officer? Yes March 21, 2025 12:32am Name of Medical Power of Appeals Officer shonda long March 21, 2025 12:32am Assessments [...] be sent through Care Everywhere. * Hyponatremia ([place]ian) * Pneumonia ([place]ian) * Coronavirus Disease (COVID-19): General Info ([place]ian) * Dehydration ([place]ian) documented in this encounter* Attachments The following attachments cannot be sent through Care Everywhere. * Chest Pain ([place]ian) documented in this encounter Reason for Referral Status Reason Specialty Diagnoses / Procedures Referre d By Contact Referred To Contact Closed Radiology Diagnoses Encounter for screening for lung cancer Procedures CT LUNG SCREENING Geovani Gay MD [address] [place] [address] Status Reason Specialty Diagnoses / Procedures Referre d By Contact Referred To Contact Open Radiology Diagnoses Chronic nausea RUQ abdominal pain Procedures US ABDOMEN COMPLETE Geovani Gay MD [address] [place] [address] Specialty Diagnoses / Procedures Referred By Contac t Referred To Contact Radiology Diagnoses Lung nodule Procedures Low Dose Chest CT -Abnormal Lung Screen Follow up Linda Gonzales, ADJUSTO WRITER OPERATOR - DIRECTOR HR COMMUNICATIONS [address] [place] [address] Referral ID Status Reason Start Date Expiration Date Visits Re quested Visits Authorized [id number] Closed 03/30/2022 05/28/2022 1 1 Specialty Diagnoses / Procedures Referred By Contac t Referred To Contact Radiology Diagnoses Multiple lung nodules on CT Procedures CT lung screening follow up low dose Linda Gonzales, ADJUSTO WRITER OPERATOR - DIRECTOR HR COMMUNICATIONS [address] [place] [address] Referral ID Status Reason Start Date Expiration Date Visits Re quested Visits Authorized [id number] Closed 05/23/2023 07/22/2023 1 1 Specialty Diagnoses / Procedures Referred By Contac t Referred To Contact Geovani Gay MD [address] [place] [address] Referral ID Status Reason Start Date Expiration Date Visits Re quested Visits Authorized [id number] Closed 1 1 Specialty Diagnoses / Procedures Referred By Contac t Referred To Contact Radiology Diagnoses Solitary pulmonary nodule Procedures CT lung screening low dose Linda Gonzales, ADJUSTO WRITER OPERATOR - DIRECTOR HR COMMUNICATIONS [address] [place] [address] Referral ID Status Reason Start Date Expiration Date Visits Re quested Visits Authorized [id number] Closed 09/20/2022 03/19/2023 1 1 Chief Complaint [...] I am unable to verify coverage on [employer] [id number] COVID vaccinesTDAP/TD-declines, doesn't think insurance will pay for it Blood Work Specialty Diagnoses / Procedures Referred By Contac t Referred To Contact Radiology Diagnoses Multiple lung nodules on CT Procedures CT lung screening follow up low dose Linda Gonzales S, ADJUSTO WRITER OPERATOR - DIRECTOR HR COMMUNICATIONS [address] [place] [address] Referral ID Status Reason Start Date Expiration Date Visits Re quested Visits Authorized [id number] Closed 05/23/2023 07/22/2023 1 1 Reason Comments [...] Comments Transitional Care Management Outreach Hospital Follow-up [facility] 03/23 -03/26/24 Reason Onset Date Comments Critical lab results 03/29/2024 Reason Onset Date Comments Medication List 04/18/2024 Reason Comments Transitional Care Management Outreach [place] s in a senior care for a litter over a month. Blood [...] Maintenance Lung ca screen- refu seFlu vaccine- [id number] covid vaccine- not done Specialty Diagnoses / Procedures Referred By Regina jarrett Referred To Contact Radiology Diagnoses Solitary pulmonary nodule Procedures CT lung screening low dose Linda Gonzales S, ADJUSTO WRITER OPERATOR - DIRECTOR HR COMMUNICATIONS [address] [place] [address] Referral ID Status Reason Start Date Expiration Date Visits Re quested Visits Authorized [id number] Closed 09/20/2022 03/19/2023 1 1 Reason Comments [...] or prosecute any alcohol or drug abuse patient. Goals (unrecognized section and content) Goals may [...] 2025 End: March 25, 2025 Dr. Troy Aknis MD Attending Provider Active Start: March 20, [...] Attending Provider Active Start: March 20, 2025 Echo Technologist Relationship Specialty Start Date End Date Geovani Gay MD [address] [place] [address], [place] [address] PCP - General Family Medicine 12/17/19 Echo Technologist Relationship Specialty Start Date [place] [address] PCP - General Family Medicine 12/17/19 Echo Technologist Relationship Specialty Start Date End Date Geovani Gay MD [address] [place] [address], [place] [address] PCP - General Family Medicine 12/17/19 Echo Technologist Relationship Specialty Start Date End Date Geovani Gay MD [address] [place] [address], [place] [address] PCP - General Family Medicine 12/17/19 Team Status: Inactive Member Role Status Dates Dr. Geovani Gay MD Primary Care Provider, Referri ng Provider Active Elina Thorpe EXHAUST WORKER, EXHAUST WORKER-C Attending Provider Active Team Status: Active Member Role Status Dates Dr. Geovani Gay MD Primary Care Provider, Referri ng Provider Active Dr. Cal Bahena DO Attending Provider, Other Prov ider Active Team Status: Inactive Member Role Status Dates Dr. Geovani Gay MD Primary Care Provider, Referri ng Provider Active Dr. Cal Bahena DO Attending Provider Active Echo Technologist Relationship Specialty Start Date End Date Geovani Gay MD [address] [place], [place] [address], [place] [address] PCP - General 12/17/19 Echo Technologist Relationship Specialty Start Date End Date Geovani Gay MD [address] [place] [address] PCP - General 12/17/19 Team Status: Inactive Member Role Status Dates Dr. Geovani Gay MD Primary Care Provider Active Elina Thorpe EXHAUST WORKER, EXHAUST WORKER-C Attending Provider, Chilango dang Provider Active Echo Technologist Relationship Specialty Start Date [place] [address] PCP - General 12/17/19 Echo Technologist Relationship Specialty Start Date [place] [address] PCP - General 12/17/19 Echo Technologist Relationship Specialty Start Date [place] [address] PCP - General 12/17/19 Echo Technologist Relationship Specialty Start Date [place] [address] PCP - General 12/17/19 Echo Technologist Relationship Specialty Start Date [place] [address] PCP - General 12/17/19 Echo Technologist Relationship Specialty Start Date [place] [address] PCP - General 12/17/19 Echo Technologist Relationship Specialty Start Date End Date Geovani Gay MD [address] [place] [address] PCP - General 12/17/19 Echo Technologist Relationship Specialty Start Date End Date Geovani Gay MD [address] [facility] [place] [address] PCP - General 12/17/19 Echo Technologist Relationship Specialty Start Date End Date Geovani Gay MD [address] [facility] [place] [address] PCP - General 12/17/19 Echo Technologist Relationship Specialty Start Date End Date Geovani Gay MD [address] [facility] [place] [address] PCP - General 12/17/19 Echo Technologist Relationship Specialty Start Date End Date Geovani Gay MD [address] [facility] [place] [address] PCP - General 12/17/19 Echo Technologist Relationship Specialty Start Date End Date Geovani Gay MD [address] [facility] [place] [address] PCP - General 12/17/19 Echo Technologist Relationship Specialty Start Date End Date Geovani Gay MD [address] [facility] [place] [address] PCP - General 12/17/19 Echo Technologist Relationship Specialty Start Date End Date Geovani Gay MD [address] [facility] [place] [address] PCP - General 12/17/19 Echo Technologist Relationship Specialty Start Date End Date Geovani Gay MD [address] [place] [address] PCP - General 12/17/19 Echo Technologist Relationship Specialty Start Date End Date Geovani Gay MD [address] [facility] [place] [address] PCP - General 12/17/19 Echo Technologist Relationship Specialty Start Date End Date Geovani Gay MD [address] [facility] [place] [address] PCP - General 12/17/19 Echo Technologist Relationship Specialty Start Date End Date Geovani Gay MD [address] [facility] [place] [address] PCP - General 12/17/19 Echo Technologist Relationship Specialty Start Date End Date Geovani Gay MD [address] [facility] [place] [address] PCP - General 12/17/19 Echo Technologist Relationship Specialty Start Date End Date Geovani Gay MD [address] [facility] [address] PCP - General 12/17/19 Echo Technologist Relationship Specialty Start Date End Date Geovani Gay MD [address] [facility] [place] [address] PCP - General 12/17/19 Echo Technologist Relationship Specialty Start Date End Date Geovani Gay MD [address] [facility] [place] [address] PCP - General 12/17/19 Echo Technologist Relationship Specialty Start Date End Date Geovani Gay MD [address] [facility] [place] [address] PCP - General 12/17/19 Echo Technologist Relationship Specialty Start Date End Date Geovani Gay MD [address] [facility] [place] [address] PCP - General 12/17/19 Echo Technologist Relationship Specialty Start Date End Date Geovani Gay MD [address] [facility] [place] [address] PCP - General 12/17/19 Echo Technologist Relationship Specialty Start Date End Date Geovani Gay MD [address] [facility] [place] [address] PCP - General 12/17/19 Echo Technologist Relationship Specialty Start Date End Date Geovani Gay MD [address] [facility] [place] [address] PCP - General 12/17/19 Echo Technologist Relationship Specialty Start Date End Date Geovani Gay MD [address] [facility] [place] [address] PCP - General 12/17/19 Echo Technologist Relationship Specialty Start Date End Date Geovani Gay [place] [facility] [place] [address] PCP - General 12/17/19 Echo Technologist Relationship Specialty Start Date End Date Geovani Gay [place] [address] PCP - General 12/17/19 Echo Technologist Relationship Specialty Start Date End Date Geovani Gay MD [facility] [place] [address] PCP - General 12/17/19 Echo Technologist Relationship Specialty Start Date End Date Geovani Gay MD [facility] [place] [address] PCP - General 12/17/19 Echo Technologist Relationship Specialty Start Date End Date Geovani Gay [place] [address] PCP - General 12/17/19 Echo Technologist Relationship Specialty Start Date End Date Geovani Gay MD [facility] [place] [address] PCP - General 12/17/19 Echo Technologist Relationship Specialty Start Date End Date Geovani Gay [place] [address] PCP - General 12/17/19 Echo Technologist Relationship Specialty Start Date End Date Geovani Gay MD [facility] [place] [address] PCP - General 12/17/19 Echo Technologist Relationship Specialty Start Date End Date Geovani Gay MD [address] [facility] [place] [address] PCP - General 12/17/19 Echo Technologist Relationship Specialty Start Date End Date Geovani Gay MD [address] [facility] [place] [address] PCP - General 12/17/19 Echo Technologist Relationship Specialty Start Date End Date Geovani Gay MD [address] [facility] [place] [address] PCP - General 12/17/19 Echo Technologist Relationship Specialty Start Date End Date Geovani Gay MD [address] [facility] [place] [address] PCP - General 12/17/19 Echo Technologist Relationship Specialty Start Date End Date Geovani Gay MD [address] [facility] [place] [address] PCP - General 12/17/19 Echo Technologist Relationship Specialty Start Date End Date Geovani Gay MD [address] [facility] [place] [address] PCP - General 12/17/19 Echo Technologist Relationship Specialty Start Date End Date Geovani Gay MD [address] [facility] [place] [address] PCP - General 12/17/19 Echo Technologist Relationship Specialty Start Date End Date Geovani Gay MD [address] [facility] [place] [address] PCP - General 12/17/19 Echo Technologist Relationship Specialty Start Date End Date Geovani Gay MD [address] [facility] [place] [address] PCP - General 12/17/19 Echo Technologist Relationship Specialty Start Date End Date Geovani Gay MD [address] [place] [address] PCP - General 12/17/19 Echo Technologist Relationship Specialty Start Date End Date Geovani Gay MD [address] [place] [address] PCP - General 12/17/19 Echo Technologist Relationship Specialty Start Date End Date Geovani Gay MD [address] [place] [address] PCP - General 12/17/19 Echo Technologist Relationship Specialty Start Date End Date Geovani Gay MD [address] [place] [address] PCP - General 12/17/19 Echo Technologist Relationship Specialty Start Date End Date Geovani Gay MD [address] [facility] [place] [address] PCP - General 12/17/19 Echo Technologist Relationship Specialty Start Date End Date Geovani Gay MD [address] [facility] [address] PCP - General 12/17/19 Echo Technologist Relationship Specialty Start Date End Date Geovani Gay MD [address] [facility], [place] [address] PCP - General 12/17/19 Team Status: Active [...] May 20, 2025 End: May 20, 2025 Echo Technologist Relationship Specialty Start Date End Date Geovani Gay MD [address] [place] [address] PCP - General 12/17/19 Echo Technologist Relationship Specialty Start Date End Date Geovani Gay MD [address] [place] [address] PCP - General 12/17/19 Team Status: Inactive [...] 100 mL IVPB (premix) 2,000 mg, IntraVENous, CARPENTER SUPERVISOR WOODEN SHIP TO O.R., 1 dose, On Mon04/27/22 at [...] section and content) DATE CREATED AUTHOR 07/22/2022 [facility] [facility] DATE CREATED AUTHOR AUTHOR'S ORGANIZ ATION 03/28/2024 [facility] ([place]) DATE CREATED AUTHOR AUTHOR'S ORGANIZ ATION 07/30/[address] [facility] DATE CREATED AUTHOR AUTHOR'S ORGANIZ ATION [...] BE BASED ON THE PRIMARY CLINICAL RECORDS. [facility]. provides no warranty or guarantee of the accuracy or completeness of information in this document.
[2025-10-14 23:24] LABS: Troponin T High Sens 2 HR 49 ng/L (<=14)
--- NOTE | 2025-10-14 23:24 | ED.RN ---
This RN called to inform the patient's daughter of the patient's condition and plan of care to admit to the ICU. All questions answered at this time and the patient's daughter is requesting to be informed of any worsening changes to the patient's condition throughout the night.
[2025-10-14 23:36] LABS: AST(SGOT) 59 U/L (<=31); Alanine Aminotransfer ALT/SGPT 46 U/L (<=34); Albumin, Serum 2.9 g/dL (3.4-4.8); Alkaline Phosphatase 123 U/L (35-104); Bilirubin, Direct 0.50 mg/dL (0.00-0.30); Globulin 3.5 g/dL (2.2-4.2)
[2025-10-15] VITALS (49 sets, daily range): BP systolic 70–143; BP diastolic 34–122; PULSE 97–135; RESP 14–35; TEMP 36–40; O2SAT 63–100; BMI 31.4
[2025-10-15 00:27] LABS: Reflex Lactate? Y
--- NOTE | 2025-10-15 00:33 | NURSING ---
0030- this RN called patients daughter and medical POA, Shonda christiansen, for consent for PICC insertion. Consent given by Shonda over the phone to this RN and Justin Chopra RN
[2025-10-15] MEDS: 0.9% Normal Saline (1000mL) 1,000 ML 999 ML IV (00:50)
[2025-10-15] MEDS: 0.9% Saline Lock 10 ML Syringe IV ×2 (00:50→04:44)
[2025-10-15 01:12] LABS: Troponin T High Sens 4 HR 50 ng/L (<=14)
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
[2025-10-15] MEDS: Remdesivir 200 MG in 0.9% Normal Saline (250mL Bag) 210 ML 250 MG IV (03:48)
[2025-10-15] MEDS: 0.9% Normal Saline (250mL Bag) 250 ML 15 ML IV (03:48)
[2025-10-15 04:54] LABS: Hematocrit 29.3 % (37-47); Hemoglobin 9.9 g/dL (12.0-15.0); Immature Granulocytes Count 0.100 X10^3/uL (0.0-0.0); Mean Corp Hgb Conc 33.8 g/dL (32-36); Mean Corpuscular Volume 100.0 fL (81-99); Mean Platelet Vol. 10.4 fl (6.2-12.0); NRBC Flagged by Analyzer 0 % (0-5); POSITIVE MORPHOLOGY YES; Platelet Count 180 K/mm3 (150-450); RBC Distribution Width CV 13.3 % (11.6-14.6); RBC Distribution Width SD 48.4 fl (35.1-43.9); Red Blood Count 2.93 M/mm3 (4.2-5.4); White Blood Count 8.8 K/mm3 (4.4-11.0)
[2025-10-15 05:15] LABS: AST(SGOT) 93 U/L (<=31); Alanine Aminotransfer ALT/SGPT 47 U/L (<=34); Albumin, Serum 2.8 g/dL (3.4-4.8); Alkaline Phosphatase 108 U/L (35-104); BUN 41 mg/dL (4-19); BUN/Creat Ratio 14.1 RATIO (10-20); Bilirubin, Direct 0.46 mg/dL (0.00-0.30); Calcium,Total 7.3 mg/dL (7.6-11.0); Carbon Dioxide 16.0 mmol/L (20.0-29.0); Estimated Creatinine Clearance 17.88 ml/min (50-250); Globulin 3.9 g/dL (2.2-4.2); Glucose 122 mg/dL (70-99); Magnesium 1.7 mg/dL (1.5-2.2)
[2025-10-15 05:20] LABS: Anion Gap 21 (7-18); Chloride 99 mmol/L (96-106); Potassium 3.1 mmol/L (3.5-5.1)
[2025-10-15 05:21] LABS: Differential Indicated SCAN CRITERIA MET
[2025-10-15 05:33] LABS: Prothrombin Time (Protime)PT. 17.9 SECONDS (11.7-14.9)
[2025-10-15 05:37] LABS: Procalcitonin 34.60 ng/mL (<=0.10)
--- NOTE | 2025-10-15 05:40 | CPS ---
pt having procedure done at this time
[2025-10-15] MEDS: Piperacil/Tazobactam 3.375 GM in 0.9% Normal Saline (50mL MB+) 50 ML IV ×3 (05:53→23:21)
[2025-10-15] MEDS: Heparin Injection (Vial) 5,000 UNIT/ML VIAL 5000 UNIT SC (05:57)
--- NOTE | 2025-10-15 07:16 | PN.HOSP_ITS ---
Reason for Visit Chief Complaint: Shortness of breath Subjective Subjective Confused. Still on BiPAP. Objective Data Objective Data Vital Signs: Vital Signs Temp Pulse Resp BP Pulse Ox O2 Del Method O2 Flow Rate 36.5 C L 109 H 25 H 80/43 L 68 Bi-pap 15 10/15/25 07:00 10/15/25 07:00 10/15/25 07:00 10/15/25 07:00 10/15/25 07:00 10/15/25 07:00 10/14/25 20:07 FiO2 80 10/15/25 07:00 Oxygen Flow Rate (L/min) 15 Oxygen Delivery Method Bi-pap Weight: 73 kg Body Mass Index (BMI) 31.4 Intake & Output: Intake and Output for Last 24 Hours 10/13/25 10/14/25 10/15/25 23:59 23:59 23:59 Intake Total 1200 / 1200 1250 / 1250 Output Total 200 / 200 Balance 1200 / 1200 1050 / 1050 Lab / Micro Data 10/15/25 07:50 10/15/25 04:41 Labs: Laboratory Results - last 24 hr 10/14/25 20:15: WBC 8.8, RBC 3.66 L, Hgb 12.2, Hct 37.2, MCV 101.6 H, MCH 33.3 H , MCHC 32.8, RDW Std Deviation 50.0 H, RDW Coeff of Sanju 13.4, Plt Count 258, MPV 10.7, Immature Gran % (Auto) 0.600, Neut % (Auto) 77.0 H, Lymph % (Auto) 18.1 L, Rogers % (Auto) 3.9, Eos % (Auto) 0.1, Baso % (Auto) 0.3, Absolute Neuts (auto) 6.7, Absolute Lymphs (auto) 1.58, Nucleated RBC % 0, Differential Comment SCANNED, Platelet Estimate ADEQUATE, D-Dimer Quant (PE/DVT) 3.30 H*, Sodium 129 L, Potassium 4.4, Chloride 89 L, Carbon Dioxide 14.9 L, Anion Gap 25 H, BUN 31 H , Creatinine 2.38 H, Estim Creat Clear Calc 21.54 L, Est GFR (MDRD) Non-Af 23 L, BUN/Creatinine Ratio 13.2, Glucose 95, Lactic Acid 8.5 H*, Calcium 8.6, Troponin T High Sens 43 H D, NT pro BNP II 3748 H 10/14/25 22:05: Ammonia 37.5 10/14/25 22:57: Total Bilirubin 0.66, Direct Bilirubin 0.50 H, AST 59 H, ALT 46 H, Alkaline Phosphatase 123 H, Troponin T Hi Sens 2 Hr 49 H, Total Protein 6.4, Albumin 2.9 L, Globulin 3.5 10/15/25 00:22: Troponin T Hi Sens 4Hr 50 H 10/15/25 00:41: Lactic Acid 5.9 H* 10/15/25 04:41: PT 17.9 H, INR 1.4, Sodium 135, Potassium 3.1 L, Chloride 99, C arbon Dioxide 16.0 L, Anion Gap 21 H, BUN 41 H, Creatinine 2.91 H, Estim Creat Clear Calc 17.88 L, Est GFR (MDRD) Non-Af 18 L, BUN/Creatinine Ratio 14.1, G lucose 122 H, Lactic Acid 4.1 H*, Calcium 7.3 L, Phosphorus 5.1 H, Magnesium 1.7, Total Bilirubin 0.61, Direct Bilirubin 0.46 H, AST 93 H, ALT 47 H, Alkaline Phosphatase 108 H, Total Protein 6.6, Albumin 2.8 L, Globulin 3.9, Procalcitonin 34.60 H 10/15/25 04:45: WBC 8.8, RBC 2.93 L, Hgb 9.9 L, Hct 29.3 L, MCV 100.0 H, MCH 33.8 H, MCHC 33.8, RDW Std Deviation 48.4 H, RDW Coeff of Sanju 13.3, Plt Count 180, MPV 10.4, Immature Gran % (Auto) 1.100 H, Neut % (Auto) 83.1 H, Lymph % (Auto) 8.0 L, Rogers % (Auto) 4.0, Eos % (Auto) 3.0, Baso % (Auto) 0.8, Absolute Neuts (auto) 7.3, Absolute Lymphs (auto) 0.70 L, Nucleated RBC % 0 Micro: Microbiology 10/15/25 04:33 Nasal Secretion MRSA (PCR) - Final 10/14/25 00:22 Urine Catheter - Valenzuela Legionella Antigen - Final 10/14/25 00:22 Urine Catheter - Valenzuela Streptococcus pneumoniae Antigen (M - Final 10/14/25 20:24 Mucosa - Nose SARS-CoV-2, Influenza & RSV (PCR) - Final SARS-CoV-2 (COVID 19 PCR) ABG Data ABG results: ABG 10/14/25 21:07 Specimen Type ART Sample Site R Brach pH 7.31 L Bicarbonate Actual 16.7 L Total CO2 18 Base Excess -10 L O2 Saturation 98 O2 % 100.0 ABG pCO2 33.3 L ABG pO2 121 H O2 Delivery Device BiPAP Vent Mode Not entered Clinical Comments 20. 8. Radiography Diagnostic Testing: Radiology Impression Chest X-Ray 10/14/25 20:16 IMPRESSION: New hazy airspace consolidation in the left lung, likely pneumonia. Reading Location: [id number] Patient's Goals Of Care - F/U Goals Reviewed Goals of care reviewed with patient: Unable to assess Physical Exam Narrative POCUS: Indication is for shock and respiratory failure. IVC was identified and was about 2 cm in diameter with minimal respiratory variation as it was not collapsible. And LV was grossly imaged and appear to be hypokinetic. Const Constitutional Narrative: Confused. On BiPAP. Afebrile. Resp Resp Narrative: Coarse breath sounds bilaterally Cardio regular rate and regular rhythm GI normal to inspection, nondistended, normoactive bowel sounds, soft to palpation, non-tender and non-distended Extremity Extremity Narrative: Nonpitting lower extremity edema Neuro Sensorium / Orientation: awake Assessment & Plan Assessment/Plan (1) Acute on chronic hypoxic respiratory failure: (2) Sepsis: QUALIFIERS: Acute respiratory failure type: with hypoxia Sepsis acute organ dysfunction status: with acute organ dysfunction Sepsis type: s epsis due to unspecified organism Severe sepsis acute organ dysfunction type: a cute respiratory failure Severe sepsis shock status: without septic shock Q ualified Code(s): A41.9 - Sepsis, unspecified organism; R65.20 - Severe sepsis without septic shock; J96.01 - Acute respiratory failure with hypoxia (3) Community acquired pneumonia: QUALIFIERS: Laterality: left Lung location: lower lobe of lung Q ualified Code(s): J18.9 - Pneumonia, unspecified organism (4) COVID-19: (5) Acidosis, lactic: PLAN: Plan Sepsis with shock. * refer to H+P for criteria * as patient has at least 2 organ dysfunction (RICH and hypotension) due to infection which is pneumonia. * Has not required pressor yet responded to 2 L normal saline given in ED so we cannot call it septic shock despite the lactate of 9. Limited fluid resuscitation because of potential risk of worsening respiratory status and she is a DO NOT INTUBATE. * worsening hypotension. * consult CCM. Patient has been started on norepinephrine. Suspected pneumococcal pneumonia * Complicated by COVID-19 * abx w pip/tazo and vancomycin * MRSA negative, strep and legionella antigens negative. BCx pending. SCx yet to be collected. Acute hypoxic respiratory failure * 2/2 pneumonia and COVID. Elevated D-dimer (3.3). Cannot rule VTE. RICH limits use of contrast, VQ of low yield given pneumonia at this time. Will start heparin gtt. RICH * Creatinine from 09/08/2025 was 0.59, now up to 2.9 * Avoid nephoroxic medications * Check urine studies, check US COVID 19, acute, severe * on remdesivir. start dexamethasone. Elevated troponins * likely demand ischemia from shock * check echo Chronic conditions: * HTN: furosemide, lisinopril, spironolactone held given RICH and shock. Amlodipine held given shock. * mood disorder: duloxetine * seizure d/o: continue levetiracetam, * obesity class I: complicates care and recovery VTE prophylaxis: not indicated while on heparin gtt. Charges/Coding Visit Charges Inpatient E&M: 43379 [facility] Hosp L3
--- NOTE | 2025-10-15 07:27 | US_ITS ---
PROCEDURE: KIDNEY AND BLADDER 10/15/2025 REASON FOR EXAM: RICH TECHNIQUE: Procedure Code: USKI Modality: US Procedure: KIDNEY AND BLADDER FINDINGS: Right kidney measures 11.9 Cm and left kidney measures 11.7 Cm. Normal echotexture of bilateral kidneys. No hydronephrosis. No renal stones. Urinary bladder contains gorman catheter. US/Kidney and Bladder IMPRESSION: No hydronephrosis. Reading Location: [id number]
--- NOTE | 2025-10-15 07:36 | ECHOD_ITS ---
Reason For Study Reason For Study: ELEVATED TROPONIN Procedure This was a limited 2D transthoracic echocardiogram. Exam performed portable in ICU/CCU. The exam was abbreviated due to the COVID 19 protocol. Left Ventricle Normal LV size. Mild concentric left ventricular hypertrophy. Hyperdynamic LV function with ejection fraction estimated at greater than 75%. Diastolic function is indeterminate. Right Ventricle Normal RV size. Normal systolic function. Atria The left and right atria are normal. Mitral Valve Mild diffuse mitral valve thickening. Mild mitral annular calcification. There is no mitral valve stenosis. Trivial mitral valve insufficiency. Tricuspid Valve The tricuspid valve is not well visualized. There is no tricuspid stenosis. Trivial tricuspid valve insufficiency. Aortic Valve Trisinus/trileaflet aortic valve. Mild diffuse aortic valve thickening. Mild diffuse aortic valve calcification. There is no aortic valve stenosis. No aortic valve insufficiency. Pulmonic Valve The pulmonic valve is not well visualized. Trivial pulmonic valve insufficiency. Great Vessels Normal sized IVC that collapses with respiration/sniff. Pericardium/Pleural No pericardial effusion. MMode/2D Measurements & Calculations LVIDd: 3.6 cm IVSd: 1.1 cm LAV(MOD-sp2): 34.7 ml LVIDs: 2.2 cm LVPWd: 1.2 cm FS: 39.4 % LVAd ap4: 19.8 cm2 LVAd ap2: 25.0 cm2 LVLd ap4: 7.2 cm LVLd ap2: 7.7 cm EDV(MOD-bp): 56.9 ml EDV(MOD-sp4): 45.0 ml EDV(MOD-sp2): 66.7 ml ESV(MOD-bp): 13.1 ml EDV(sp4-el): 46.3 ml EDV(sp2-el): 69.2 ml EF(MOD-bp): 77.0 % LVAs ap4: 8.2 cm2 LVAs ap2: 10.0 cm2 LVLs ap4: 5.5 cm LVLs ap2: 6.1 cm ESV(MOD-sp4): 11.3 ml ESV(MOD-sp2): 14.0 ml ESV(sp4-el): 10.3 ml ESV(sp2-el): 14.0 ml EF(MOD-sp4): 74.9 % EF(MOD-sp2): 79.0 % EF(sp4-el): 77.7 % SV(MOD-sp4): 33.7 ml SV(MOD-sp2): 52.7 ml SV(sp4-el): 36.0 ml SI(MOD-sp4): 19.8 ml/m2 SI(MOD-sp2): 31.0 ml/m2 ECHO/Echo Complete Interpretation Summary Hyperdynamic LV function with ejection fraction estimated at greater than 75%. Mild concentric left ventricular hypertrophy. Diastolic function is indeterminate. Degenerative changes otherwise no significant valvular heart disease appreciate d. Ordering Physician: Mason Loza Referring Physician: Geovani Mancia Performed By: Beatriz Herzog RDCS
--- NOTE | 2025-10-15 07:38 | VDLE_ITS ---
Reason For Study Reason For Study: Elevated D Dimer RIGHT LEFT GSV is normal. GSV is normal. CFV is compressible, spontaneous, phasic, competent CFV is compressible, spontaneous, phasic, competent, and demonstrates normal augmentation. and demonstrates normal augmentation. FV is compressible, spontaneous, phasic, competent FV is compressible, spontaneous, phasic, competent and demonstrates normal augmentation. and demonstrates normal augmentation. POP V is compressible, spontaneous, phasic, competent POP V is compressible, spontaneous, phasic, competent and demonstrates normal augmentation. and demonstrates normal augmentation. T/P Trunk is compressible. T/P Trunk is compressible. PTV is compressible. PTV is compressible. RT PerV is compressible. LT PerV is compressible. Procedure This is a venous duplex using B-mode, color flow and spectral Doppler. Exam performed portable in ICU/CCU. The exam was diagnostic. A preliminary report was called and/or faxed to [facility]. VL/Venous Duplex US - Wang Extrem Interpretation Summary Deep veins of the bilateral lower extremities are patent and compressible segme ntally. There is no evidence of bilateral lower extremity deep vein thrombosis. The bilateral great saphenous veins appea r patent and compressible segmentally. Ordering Physician: Mason Loza Referring Physician: Geovani Mancia Performed By: Jef Parmar RVT
[2025-10-15 07:57] LABS: Hematocrit 29.2 % (37-47); Hemoglobin 9.7 g/dL (12.0-15.0); Immature Granulocytes Count 0.170 X10^3/uL (0.0-0.0); Mean Corp Hgb Conc 33.2 g/dL (32-36); Mean Corpuscular Volume 100.7 fL (81-99); Mean Platelet Vol. 9.7 fl (6.2-12.0); NRBC Flagged by Analyzer 0.2 % (0-5); POSITIVE MORPHOLOGY YES; Platelet Count 172 K/mm3 (150-450); RBC Distribution Width CV 13.2 % (11.6-14.6); RBC Distribution Width SD 48.7 fl (35.1-43.9); Red Blood Count 2.90 M/mm3 (4.2-5.4); White Blood Count 12.7 K/mm3 (4.4-11.0)
[2025-10-15 08:05] LABS: Prothrombin Time (Protime)PT. 17.9 SECONDS (11.7-14.9)
[2025-10-15 08:06] LABS: Partial Thromboplast Time 45.5 Seconds (24.1-36.2)
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
[2025-10-15] MEDS: Norepinephrine 8 MG in 0.9% Normal Saline (250mL Bag) 242 ML 9.4 MG CONT INF (08:23)
[2025-10-15] MEDS: Heparin Injection (Vial) 5,000 UNIT/ML VIAL 5000 UNIT IV (08:27)
[2025-10-15] MEDS: HEPARIN/D5w 25,000 UNITS 25,000 UNITS/250 ML IV.SOLN. 11 UNITS CONT INF (08:27)
[2025-10-15 08:28] LABS: Differential Indicated SCAN CRITERIA MET
[2025-10-15 08:50] LABS: Mucous, Urine 0 SEEN /hpf (<or=2+); Squamous Epithelial Cells - UA 0 SEEN /hpf (5-10)
[2025-10-15 08:50] LABS: Reflex Lactate? Y
[2025-10-15 08:53] LABS: Color, Urine Yellow (Yellow); Glucose, Dipstick Normal (Normal); Ketone-Dipstick Negative (Negative); Leukocyte Esterase-Dipstick 25 /ul (Negative); Nitrite-Dipstick Negative (Negative); Occult Blood-Urine 250 /ul (Negative); Protein-Dipstick 100 mg/dl (Negative); Specific Gravity, Urine 1.010 (1.002-1.030); Urine Bilirubin Dipstick Negative (Negative)
[2025-10-15 09:00] LABS: Red Blood Cells-Urine 5-10 SEEN /hpf (0-5)
[2025-10-15 09:50] LABS: Urea Nitrogen, Urine 94 mg/dL (NO RANGE EST.)
[2025-10-15] MEDS: Potassium Chloride 20mEq/100mL 20 MEQ/100 ML IV.SOLN. 100 MEQ IV BOLUS ×2 (10:07→11:30)
--- NOTE | 2025-10-15 10:25 | CASEMGMT ---
RN CM Assessment Face to Face with patient for initial transition planning/care coordination assessment. Pt is currently disoriented and the pt's Dtr and primary HCPOA is at the bedside and is agreeable to answering this RN CM questions for assessment. Care providers, pharmacy, and demographics verified. Admitting dx: Acute RF, Shock, COVID LACE Strata: 3 PCP: Geovani Mancia Specialists: Leigh (Psychiatry), Soy VIDAL Preferred Pharmacy: [facility] Insurance: [employer]. Dtr states that the pt has a CM through [facility] (Rebekah Epperson @ [phone]). TC to the CM, no answer. VM states that she will back 10/17. VM left informing of admission. Prescription Benefit: Yes LNOK: Alec (), Shonda (Dtr), Prem (Son). See SW note regarding HCPOA order Living Arrangements: Pt lives with her in a single story home with a ramp ADLs/IADLs: Dtr states pt is mainly indep at baseline but that the helps with the pt getting in and out of the shower Transportation: DME: Home oxygen through [employer]. Unable to verify current orders due to [employer] being closed until 10/17. Dtr states that the pt wears 2-3 L at home and has a concentrator, portable tanks (Family can bring in at DC if needed), and nebulizer. Dtr states that she has a pulse ox that she brings to the pt's home to check her o2 levels with. Pt also has a cane, FWW, Rollator, W/C, and shower chair. HHC/SNF: Reports hx @ [facility] x2 years ago EtOH/Smoking/ Illicit Drug use: Dtr states that the pt smokes 1-1.5 PPD. Denies illicit drug use. Dtr states that the pt has been drinking 3-6 beers per day and requires SW follow up regarding the matter. SW notified. Pt?s goal: TBD Plan: TBD. Per ICU rounds, pt is on Levo and PT is to be held. At this time, the Dtr agrees that it is too early to tell what the pt will need or want at the time of DC. Dtr denies further questions or concerns at this time. Care Management to follow. Lesley Chopra RN, CM
--- NOTE | 2025-10-15 11:21 | CASEMGMT ---
Social Work SW called the daughter Shonda and spoke with her regarding substance abuse counseling. The daughter wanted resources for her mother. SW suggested [facility] and [facility]. The daughter reported her mother is already going to [facility] for psychiatry. LIZBETH Owens
[2025-10-15] MEDS: Pantoprazole Sodium 40 MG in 0.9% Normal Saline (100mL MB+) 100 ML 300 MG IV (13:29)
[2025-10-15] MEDS: Norepinephrine 8 MG in 0.9% Normal Saline (250mL Bag) 242 ML 28.1 MG CONT INF (16:55)
[2025-10-15 17:14] LABS: Partial Thromboplast Time > 250.0 Seconds (24.1-36.2)
[2025-10-15] MEDS: Remdesivir 100 MG in 0.9% Normal Saline (250mL Bag) 230 ML 250 MG IV (22:10)
--- NOTE | 2025-10-15 23:43 | NURSING ---
When receiving patient, it was stated in report the patient's heparin drip was restarted at 1914. However it was not restarted in the MAR. I did restart it in the MAR. At 2199 when I looked back at the past titration, I found a miscalculation in the titration. the drip had been restarted at 11 units/kg/hr and should be 12 units/kg/hr. upon discovery, I changed the titration dose on the pump and in the MAR.
[2025-10-16] VITALS (45 sets, daily range): BP systolic 93–161; BP diastolic 32–112; PULSE 84–107; RESP 14–30; TEMP 36.9–37.6; O2SAT 85–99
[2025-10-16] MEDS: Norepinephrine 8 MG in 0.9% Normal Saline (250mL Bag) 242 ML 28.1 MG CONT INF (01:56)
[2025-10-16] MEDS: 0.9% Saline Lock 10 ML Syringe IV (02:30)
[2025-10-16 02:56] LABS: Partial Thromboplast Time 207.5 Seconds (24.1-36.2)
[2025-10-16 06:12] LABS: Hematocrit 27.4 % (37-47); Hemoglobin 9.5 g/dL (12.0-15.0); Mean Corp Hgb Conc 34.7 g/dL (32-36); Mean Corpuscular Volume 96.1 fL (81-99); Mean Platelet Vol. 9.7 fl (6.2-12.0); POSITIVE COUNT YES; POSITIVE MORPHOLOGY YES; Platelet Count 148 K/mm3 (150-450); RBC Distribution Width CV 13.2 % (11.6-14.6); RBC Distribution Width SD 46.7 fl (35.1-43.9); Red Blood Count 2.85 M/mm3 (4.2-5.4); White Blood Count 22.0 K/mm3 (4.4-11.0)
[2025-10-16] MEDS: 0.9% Normal Saline (250mL Bag) 250 ML 15 ML IV (06:26)
[2025-10-16] MEDS: Piperacil/Tazobactam 3.375 GM in 0.9% Normal Saline (50mL MB+) 50 ML IV ×2 (06:26→22:07)
[2025-10-16 06:47] LABS: AST(SGOT) 146 U/L (<=31); Alanine Aminotransfer ALT/SGPT 56 U/L (<=34); Albumin, Serum 2.8 g/dL (3.4-4.8); Alkaline Phosphatase 130 U/L (35-104); Anion Gap 19 (7-18); BUN 62 mg/dL (4-19); BUN/Creat Ratio 19.6 RATIO (10-20); Calcium,Total 6.7 mg/dL (7.6-11.0); Carbon Dioxide 15.4 mmol/L (20.0-29.0); Chloride 105 mmol/L (96-106); Estimated Creatinine Clearance 16.46 ml/min (50-250); Globulin 3.9 g/dL (2.2-4.2); Glucose 102 mg/dL (70-99); Potassium 4.3 mmol/L (3.5-5.1)
[2025-10-16 06:54] LABS: Differential Indicated MANUAL DIFF
--- NOTE | 2025-10-16 06:59 | NURSING ---
daily weight not recorded for this morning due to the bed scaled reading inaccurately.
[2025-10-16 07:01] LABS: Total Cells Counted 100 (MANUAL DIFF)
[2025-10-16 07:03] LABS: Reactive Lymphocyte RARE
--- NOTE | 2025-10-16 07:06 | PN.HOSP_ITS ---
Reason for Visit Chief Complaint: Shortness of breath Subjective Subjective More alert, but still confused. Objective Data Objective Data Vital Signs: Vital Signs Temp Pulse Resp BP Pulse Ox O2 Del Method O2 Flow Rate 37.4 C H 102 H 25 H 134/63 H 90 Bi-pap 15 10/16/25 06:00 10/16/25 06:00 10/16/25 06:00 10/16/25 06:00 10/16/25 05:46 10/16/25 06:00 10/14/25 20:07 FiO2 40 10/16/25 06:00 Oxygen Flow Rate (L/min) 15 Oxygen Delivery Method Bi-pap Weight: 73 kg Body Mass Index (BMI) 31.4 Intake & Output: Intake and Output for Last 24 Hours 10/14/25 10/15/25 10/16/25 23:59 23:59 23:59 Intake Total 1200 / 1200 2441.09 / 2719.19 649.16 / 649.16 Output Total 450 / 450 200 / 200 Balance 1200 / 1200 1991.09 / 2269.19 449.16 / 449.16 Lab / Micro Data 10/16/25 06:00 10/16/25 06:00 Labs: Laboratory Results - last 24 hr 10/15/25 07:50: WBC 12.7 H, RBC 2.90 L, Hgb 9.7 L, Hct 29.2 L, MCV 100.7 H, MCH 33.4 H, MCHC 33.2, RDW Std Deviation 48.7 H, RDW Coeff of Sanju 13.2, Plt Count 172, MPV 9.7, Immature Gran % (Auto) 1.300 H, Neut % (Auto) 83.5 H, Lymph % (Auto) 6.9 L, [place] % (Auto) 5.3, Eos % (Auto) 2.9, Baso % (Auto) 0.1, Absolute Neuts (auto) 10.6 H, Absolute Lymphs (auto) 0.88, Nucleated RBC % 0.2, PT 17.9 H , INR 1.4, APTT 45.5 H 10/15/25 08:30: Urine Color Yellow, Urine Clarity Cloudy, Urine pH 5.0, Ur Specific [place] 1.010, Urine Protein 100 H, Urine Glucose (UA) Normal, Urine Ketones Negative, Urine Occult Blood 250 H, Urine Nitrite Negative, Urine Bilirubin Negative, Urine Urobilinogen 4 H, Ur Leukocyte Esterase 25 H, Urine RBC 5-10 SEEN, Urine WBC 0-5 SEEN, Ur Squamous Epith Cells 0 SEEN, Amorphous Sediment 2+ URATE, Urine Bacteria 0 SEEN, Urine Mucus 0 SEEN, Ur Random Sodium 75, Urine Urea Nitrogen 94 10/15/25 14:30: APTT Cancelled 10/15/25 16:20: APTT > 250.0 H* 10/16/25 02:27: APTT 207.5 H* 10/16/25 06:00: WBC 22.0 H, RBC 2.85 L, Hgb 9.5 L, Hct 27.4 L, MCV 96.1, MCH 33.3 H, MCHC 34.7, RDW Std Deviation 46.7 H, RDW Coeff of Sanju 13.2, Plt Count 148 L, MPV 9.7, Neut % (Auto) Not Reportable, Absolute Neuts (auto) 19.1 H, Absolute Lymphs (auto) 1.98, Total Counted 100, Neutrophils % (Manual) 87 H, L ymphocytes % (Manual) 9 L, Monocytes % (Manual) 2, Metamyelocytes % 2 H, Diff Path Review May foll, Reactive Lymphocytes RARE, Sodium 139, Potassium 4.3, Chloride 105, Carbon Dioxide 15.4 L, Anion Gap 19 H, BUN 62 H, Creatinine 3.16 H , Estim Creat Clear Calc 16.46 L, Est GFR (MDRD) Non-Af 16 L, BUN/Creatinine Ratio 19.6, Glucose 102 H, Calcium 6.7 L, Total Bilirubin 0.62, AST 146 H, ALT 56 H, Alkaline Phosphatase 130 H, Total Protein 6.7, Albumin 2.8 L, Globulin 3.9, Albumin/Globulin Ratio 0.7 L Micro: Microbiology 10/14/25 21:29 Blood Culture (Wb) - Right Forearm Blood Culture - Preliminary 10/14/25 20:15 Blood Culture (Wb) - Venous Blood Culture - Preliminary 10/15/25 04:33 Nasal Secretion MRSA (PCR) - Final 10/14/25 00:22 Urine Catheter - Valenzuela Legionella Antigen - Final 10/14/25 00:22 Urine Catheter - Valenzuela Streptococcus pneumoniae Antigen (M - Final 10/14/25 20:24 Mucosa - Nose SARS-CoV-2, Influenza & RSV (PCR) - Final SARS-CoV-2 (COVID 19 PCR) Radiography Diagnostic Testing: Radiology Impression Renal Ultrasound 10/15/25 07:27 IMPRESSION: No hydronephrosis. Reading Location: [facility] Echocardiogram 10/15/25 07:36 Interpretation Summary Hyperdynamic LV function with ejection fraction estimated at greater than 75%. Mild concentric left ventricular hypertrophy. Diastolic function is indeterminate. Degenerative changes otherwise no significant valvular heart disease appreciated. Ordering Physician: Mason Loza Referring Physician: Geovani Mancia Performed By: Beatriz Herzog RDCS Venous Doppler Study 10/15/25 07:38 Interpretation Summary Deep veins of the bilateral lower extremities are patent and compressible segmentally. There is no evidence of bilateral lower extremity deep vein thrombosis. The bilateral great saphenous veins appear patent and compressible segmentally. Ordering Physician: Mason Loza Referring Physician: Geovani Mancia Performed By: Jef Parmar RVT Physical Exam Narrative POCUS: Indication for resp failure and shock. IVC visualized and using the SmartIVC filter, then IVC measure 2cm with minimal respiratory variation (on BiPAP). Heart grossly normal. B-lines in bases on pulmonary exam. Const Constitutional Narrative: awake. afebrile. HEENT head/scalp atraumatic and moist oral mucous membranes Resp Resp Narrative: coarse breath sounds bilaterally. Cardio regular rate, regular rhythm, S1 normal heart sound and S2 normal heart sound GI normal to inspection, nondistended, normoactive bowel sounds, soft to palpation, non-tender and non-distended Neuro Sensorium / Orientation: awake and alert Assessment & Plan Assessment/Plan (1) Acute on chronic hypoxic respiratory failure: (2) Sepsis: QUALIFIERS: Acute respiratory failure type: with hypoxia Sepsis acute organ dysfunction status: with acute organ dysfunction Sepsis type: s epsis due to unspecified organism Severe sepsis acute organ dysfunction type: a cute respiratory failure Severe sepsis shock status: without septic shock Q ualified Code(s): A41.9 - Sepsis, unspecified organism; R65.20 - Severe sepsis without septic shock; J96.01 - Acute respiratory failure with hypoxia (3) Community acquired pneumonia: QUALIFIERS: Laterality: left Lung location: lower lobe of lung Q ualified Code(s): J18.9 - Pneumonia, unspecified organism (4) COVID-19: (5) Acidosis, lactic: PLAN: Plan Sepsis with shock. * refer to H+P for criteria * as patient has at least 2 organ dysfunction (RICH and hypotension) due to infection which is pneumonia. * Has not required pressor yet responded to 2 L normal saline given in ED so we cannot call it septic shock despite the lactate of 9. Limited fluid resuscitation because of potential risk of worsening respiratory status and she is a DO NOT INTUBATE. * worsening hypotension. * CCM following.Still on norepinephrine. Avoid aggressive IVF as may worsen respiratory status. Suspected pneumococcal pneumonia * Complicated by COVID-19 * abx w pip/tazo and vancomycin * MRSA negative, strep and legionella antigens negative. BCx pending. SCx yet to be collected. Bacteremia * Gram negative cocco bacilli * follow up culture for further identification. * abx as above. Acute hypoxic respiratory failure * 2/2 pneumonia and COVID. Elevated D-dimer (3.3). Cannot rule VTE. RICH limits use of contrast, VQ of low yield given pneumonia at this time. Will start heparin gtt. * Duplex LE negative. RICH * Creatinine from 09/08/2025 was 0.59, now up to 3.16 * Avoid nephoroxic medications * US showed no hydronephrosis * Check urine studies. * Dilated IVC on POCUS with minimal collapsibility suggesting a component of volume overload, therefore aggresive IVF may worsen respiratory status. * FEUrea 22.25% consistent with prerenal azotemia. Will try 500cc IVF infusion. COVID 19, acute, severe * on remdesivir. start dexamethasone. Elevated troponins * likely demand ischemia from shock * Echo shows an EF of 75%. Chronic conditions: * HTN: furosemide, lisinopril, spironolactone held given RICH and shock. Amlodipine held given shock. * mood disorder: duloxetine * seizure d/o: continue levetiracetam, * obesity class I: complicates care and recovery VTE prophylaxis: not indicated while on heparin gtt. Charges/Coding Visit Charges Inpatient E&M: 35654 Subs Hosp L3
[2025-10-16 08:49] LABS: Urea Nitrogen, Urine 374 mg/dL (NO RANGE EST.)
--- NOTE | 2025-10-16 09:04 | PCM.PN.TICU ---
Objective Data Objective Data Vital Signs: Vital Signs Last response Temperature 37.4 C H 10/16/25 08:00 Temperature Source Core 10/16/25 08:00 Pulse Rate 94 10/16/25 08:00 Pulse Strength Weak (1+) 10/16/25 08:09 Respiratory Rate 21 H 10/16/25 08:00 Respiratory Effort Labored, Accessory Muscle Use 10/16/25 08:00 Respiratory Depth Deep 10/16/25 08:00 Respiratory Pattern Tachypnea 10/16/25 08:00 Blood Pressure 99/62 10/16/25 08:45 Blood Pressure Mean 74 10/16/25 08:45 Blood Pressure Source Monitor 10/16/25 08:45 Blood Pressure Position Semi-Fowlers 10/15/25 22:00 Blood Pressure Location Left Arm 10/15/25 22:00 Pulse Ox 85 10/16/25 08:05 Oxygen Delivery Method Nasal Cannula 10/16/25 08:05 Oxygen Flow Rate (L/min) 6 10/16/25 08:05 Fraction of Inspired Oxygen (FIO2) 40 10/16/25 08:00 I&O: I&O Last 24 Hours 10/15/25 10/15/25 10/16/25 11:59 23:59 11:59 Intake Total 1502.05 / 2719.19 939.04 / 2719.19 717.11 / 717.11 Output Total 250 / 450 200 / 450 200 / 200 Balance 1252.05 / 2269.19 739.04 / 2269.19 517.11 / 517.11 I&O: Total Stay 10/14/25 20:06 thru 10/16/25 08:45 Intake Total 4358.20 Output Total 650 Balance 3708.20 Current Meds Ordered / Administered: Current meds ordered / Administered Generic Name Dose Route Start Last Admin Trade Name Freq PRN Reason Stop Dose Admin Acetaminophen 650 mg 10/16/25 08:54 Acetaminophen 325 Mg Tablet PO Q6H PRN PRN Pain 1-10 or Fever Albuterol Sulfate 2.5 mg 10/15/25 04:17 Albuterol 2.5 Mg/3 Ml Vial.Neb. INHALATION Q2H PRN PRN SOB &/OR WHEEZING Albuterol/Ipratropium 3 ml 10/15/25 06:00 10/16/25 07:55 Ipratropium/Albuterol Sulfate 3 Ml Ampul.Neb INHALATION 3 ml Q6HWA.RT KASH Administration Buspirone HCl 20 mg 10/15/25 06:00 10/16/25 06:33 Buspirone 5 Mg Tablet PO 20 mg TID KASH Administration Carbamazepine 400 mg 10/15/25 10:00 10/16/25 08:00 Carbamazepine 200 Mg Tablet PO 400 mg BID KASH Administration Dexamethasone Sodium Phosphate 6 mg 10/15/25 10:00 10/15/25 10:02 Dexamethasone 10 Mg/Ml Vial IV 6 mg DAILY KASH Administration Duloxetine HCl 60 mg 10/15/25 10:00 10/16/25 08:00 Duloxetine Hcl 60 Mg Capsule PO 60 mg DAILY KASH Administration Heparin Sodium (Porcine) 0 unit 10/15/25 07:31 Heparin Nomogram Adjustment 5,000 Unit/Ml Vial IV UD PRN Dose Adjustment Protocol Pantoprazole Sodium 40 mg/ 100 mls @ 300 mls/hr 10/15/25 10:00 10/15/25 14:01 Sodium Chloride IV Infused Q24 KASH Infusion Sodium Chloride 250 mls @ 15 mls/hr 10/15/25 00:20 10/16/25 06:26 IV 15 mls/hr .[id number] PRN Administration Saline Flush Sodium Chloride 250 mls @ 15 mls/hr 10/15/25 00:20 IV .[id number] PRN Additional IVPB Infusion Remdesivir 100 mg/ Sodium 250 mls @ 250 mls/hr 10/15/25 22:00 10/16/25 00:00 Chloride IV 10/18/25 22:59 Infused 2200 KASH Infusion Protocol Piperacillin Sod/Tazobactam 50 mls @ 12.5 mls/hr 10/15/25 06:00 10/16/25 06:26 Sod 3.375 gm/ Sodium Chloride IV 10/16/25 10:30 12.5 mls/hr Q8 KASH Administration Heparin Sodium/Dextrose 25,000 units in 250 mls @ 10.95 mls/hr 10/15/25 07:35 10/16/25 07:34 CONT INF Not Given .[id number] KASH Protocol 15 UNIT/KG/HR Norepinephrine Bitartrate 8 mg 250 mls @ 9.375 mls/hr 10/15/25 08:00 10/16/25 08:45 / Sodium Chloride CONT INF 5 mcg/min .[id number] KASH 9.4 mls/hr Protocol Titration 5 MCG/MIN Piperacillin Sod/Tazobactam 50 mls @ 12.5 mls/hr 10/16/25 22:00 Sod 3.375 gm/ Sodium Chloride IV Q12 KASH Levetiracetam 500 mg 10/15/25 10:00 10/16/25 08:00 Levetiracetam 500 Mg Tablet PO 500 mg BID KASH Administration Ondansetron HCl 4 mg 10/14/25 22:36 Ondansetron 4 Mg/2 Ml Vial IV Q8H PRN PRN NAUSEA/VOMITING Sodium Chloride 10 - 40 ml 10/15/25 00:20 10/16/25 02:30 0.9% Saline Lock 10 Ml Syringe IV 10 ml UD PRN Administration SALINE FLUSH Lab / Micro Data 10/16/25 06:00 10/16/25 06:00 Labs: Laboratory Results - last 24 hr 10/15/25 08:30: Ur Random Sodium 75, Urine Urea Nitrogen 94 10/15/25 14:30: APTT Cancelled 10/15/25 16:20: APTT > 250.0 H* 10/16/25 02:27: APTT 207.5 H* 10/16/25 06:00: WBC 22.0 H, RBC 2.85 L, Hgb 9.5 L, Hct 27.4 L, MCV 96.1, MCH 33.3 H, MCHC 34.7, RDW Std Deviation 46.7 H, RDW Coeff of Sanju 13.2, Plt Count 148 L, MPV 9.7, Neut % (Auto) Not Reportable, Absolute Neuts (auto) 19.1 H, Absolute Lymphs (auto) 1.98, Total Counted 100, Neutrophils % (Manual) 87 H, Lymphocytes % (Manual) 9 L, Monocytes % (Manual) 2, Metamyelocytes % 2 H, Diff Path Review May foll, Reactive Lymphocytes RARE, Sodium 139, Potassium 4.3, Chloride 105, Carbon Dioxide 15.4 L, Anion Gap 19 H, BUN 62 H, Creatinine 3.16 H, Estim Creat Clear Calc 16.46 L, Est GFR (MDRD) Non-Af 16 L, BUN/Creatinine Ratio 19.6, Glucose 102 H, Calcium 6.7 L, Total Bilirubin 0.62, AST 146 H, ALT 56 H, Alkaline Phosphatase 130 H, Total Protein 6.7, Albumin 2.8 L, Globulin 3.9, Albumin/Globulin Ratio 0.7 L 10/16/25 08:12: Urine Creatinine 93.80, Urine Urea Nitrogen 374 Micro: Microbiology 10/14/25 21:29 Blood Culture (Wb) - Right Forearm Blood Culture - Preliminary 10/14/25 20:15 Blood Culture (Wb) - Venous Blood Culture - Preliminary 10/15/25 04:33 Nasal Secretion MRSA (PCR) - Final Imaging Radiology Impression Renal Ultrasound 10/15/25 07:27 IMPRESSION: No hydronephrosis. Reading Location: [facility] Echocardiogram 10/15/25 07:36 Interpretation Summary Hyperdynamic LV function with ejection fraction estimated at greater than 75%. Mild concentric left ventricular hypertrophy. Diastolic function is indeterminate. Degenerative changes otherwise no significant valvular heart disease appreciated. Ordering Physician: Mason Loza Referring Physician: Geovani Mancia Performed By: Beatriz Herzog RDCS Venous Doppler Study 10/15/25 07:38 Interpretation Summary Deep veins of the bilateral lower extremities are patent and compressible segmentally. There is no evidence of bilateral lower extremity deep vein thrombosis. The bilateral great saphenous veins appear patent and compressible segmentally. Ordering Physician: Mason Loza Referring Physician: Geovani Mancia Performed By: Jef Parmar RVT Assessment and Plan . Assessment and plan: Critical Care Time: The entirety of this encounter was done via Telemedicine Subjective Subjective S: Pt seen and examined. On NIV. Attempted short break to 6L NC but did not tolerate due to increased WOB/accessory muscle use. Low grade temp. ~275cc UOP overnight. Nepi @ 5 Hep gtt NIV 20/10 40% PE: General: obese acute on chronically ill appearing female; +NIV HEENT: anicteric Sclera, nl nose; supple neck, no masses Cardiovascular: S1/S2; No rubs, gallops; no displaced PM Respiratory: diminished with scattered wheezes/rhonchi; no crackles Abdominal: Non-tender; Non distended; hypoBS x 4; No Hepatosplenomegaly Extremities: Warm, well perfused; No clubbing, cyanosis; capillary refill < 2 sec Skin: intact, no rashes Neurological: lethargic/fatigued; A&Ox3; no gross deficits motor appreciated A/P: #Acute on chronic hypoxemic hypercapnic respiratory failure #Septic shock #COVID19 PNA with ?secondary bacterial PNA #Elevated troponin/NSTEMI type II #Tobacco abuse #Seizure disorder #Anxiety/depression #Hx AVM #Iron-deficiency anemia -Cont NIV; can attempt breaks on HHFNC as tolerated; titrate FiO2 to keep sats ~90-92% -SP sepsis fluids; cont NEPi to keep MAP > 65; will consider adding PO midodrine -Cont emp IV ABx- Zosyn; F/U Cx -Cont remdes; monitor renal function/LFTs -Switch dexameth to methylpred; cont nebs -Cont emp hep gtt x48h; LE dopplers neg for DVT; unable to get CTA to exclude PE due to RICH; VQ scan likely unhelpful given concurrent lung disease -Cont home AEDs PO diet as tolerated by resp status Hep gtt Very guarded prognosis DNR/DNI Gianluca Barry MD CCT: 50 min Entirety of encounter done via telemedicine Vitals, labs, diagnostics reviewed in EMR. This patients illness acutely impairs one or more vital organ systems such that there is a high probability of imminent or life threatening deterioration in the patient?s condition. I have used high-complexity decision making to assess, manipulate, & support vital systems to treat single or multiple vital organ system failure &/or prevent further life threatening deterioration of the patient?s condition. Time of note does not reflect time of service.
[2025-10-16] MEDS: Pantoprazole Sodium 40 MG in 0.9% Normal Saline (100mL MB+) 100 ML 300 MG IV (09:54)
[2025-10-16] MEDS: 0.9% Normal Saline (1000mL) 1,000 ML 100 ML IV (10:58)
[2025-10-16] MEDS: Vancomycin HCl 1,750 MG in 0.9% Normal Saline (500mL Bag) 500 ML 250 MG IV (11:27)
--- NOTE | 2025-10-16 11:59 | PCM.RX.CS ---
Consult Antibiotic Management Pharmacy has been consulted to manage selected antibiotic: Vancomycin Type of Intervention Type of Consult: New start Labs Labs: Sodium 139 mmol/L (135-145) 10/16/25 06:00 Potassium 4.3 mmol/L (3.5-5.1) 10/16/25 06:00 Chloride 105 mmol/L (96-106) 10/16/25 06:00 Carbon Dioxide 15.4 mmol/L (20.0-29.0) L 10/16/25 06:00 Anion Gap 19 (7-18) H 10/16/25 06:00 BUN 62 mg/dL (4-19) H 10/16/25 06:00 Creatinine 3.16 mg/dL (0.70-1.20) H 10/16/25 06:00 Est GFR (MDRD) Non-Af 16 (>60) L 10/16/25 06:00 BUN/Creatinine Ratio 19.6 RATIO (10-20) 10/16/25 06:00 Glucose 102 mg/dL (70-99) H 10/16/25 06:00 Microbiology Microbiology: Microbiology 10/15/25 08:30 Urine Catheter - Catheter Urine Culture - Preliminary Culture exhibits no growth. 10/14/25 21:29 Blood Culture (Wb) - Right Forearm Blood Culture - Preliminary 10/14/25 20:15 Blood Culture (Wb) - Venous Blood Culture - Preliminary 10/15/25 04:33 Nasal Secretion MRSA (PCR) - Final 10/14/25 00:22 Urine Catheter - Valenzuela Legionella Antigen - Final 10/14/25 00:22 Urine Catheter - Valenzuela Streptococcus pneumoniae Antigen (M - Final 10/14/25 20:24 Mucosa - Nose SARS-CoV-2, Influenza & RSV (PCR) - Final SARS-CoV-2 (COVID 19 PCR) Pharmacy Plan for Drug Dosing Pharmacy Plan for Drug Dosing: NEW START IV VANCOMYCIN Consulting Physician: Gianluca Barry Indication: sepsis, pneumonia Goal Trough: 15-20 mg/dL SrCr: 3.16 mg/dL CrCl: 16.4 mL/min Comments: loading dose of 1750mg given 10/16 @ 1137 Vancomycin Dose: Pt's CrCl is <20mL/min, not on HD, so will hold further doses and get a level 12 hour after the dose to assess further dosing. Pending Level: 10/17/25 @ 1200 - random Pharmacy Service will continue to monitor and adjust dosing as required.
[2025-10-16 12:02] LABS: Partial Thromboplast Time 91.8 Seconds (24.1-36.2)
--- NOTE | 2025-10-16 14:15 | CPS ---
Pt tore bipap mask off, RN is going to observe how she tolerates 4-6lpm O2 via NC.
--- NOTE | 2025-10-16 16:15 | CPS ---
Pt keeps pulling mask off face, RN placed her on NC which patient will wear. will wean as tolerated to her home oxygen of 2.5lpm.
--- NOTE | 2025-10-16 16:40 | CPS ---
Turned O2 down to 2.5lpm which is how much oxygen patient wears at home. pt tolerating this change well.
[2025-10-16] MEDS: HEPARIN/D5w 25,000 UNITS 25,000 UNITS/250 ML IV.SOLN. 5.8 UNITS CONT INF (16:54)
[2025-10-16 18:30] LABS: Partial Thromboplast Time 77.4 Seconds (24.1-36.2)
[2025-10-16] MEDS: Remdesivir 100 MG in 0.9% Normal Saline (250mL Bag) 230 ML 250 MG IV (20:54)
[2025-10-17] VITALS (29 sets, daily range): BP systolic 84–172; BP diastolic 51–79; PULSE 77–106; RESP 14–29; TEMP 36.3–37.3; O2SAT 95–100
[2025-10-17 01:54] LABS: Partial Thromboplast Time 90.7 Seconds (24.1-36.2)
[2025-10-17 05:17] LABS: Hematocrit 25.3 % (37-47); Hemoglobin 8.8 g/dL (12.0-15.0); Immature Granulocytes Count 0.560 X10^3/uL (0.0-0.0); Mean Corp Hgb Conc 34.8 g/dL (32-36); Mean Corpuscular Volume 95.5 fL (81-99); Mean Platelet Vol. 10.6 fl (6.2-12.0); NRBC Flagged by Analyzer 0.1 % (0-5); POSITIVE COUNT YES; POSITIVE MORPHOLOGY YES; Platelet Count 93 K/mm3 (150-450); RBC Distribution Width CV 13.5 % (11.6-14.6); RBC Distribution Width SD 47.1 fl (35.1-43.9); Red Blood Count 2.65 M/mm3 (4.2-5.4); White Blood Count 15.9 K/mm3 (4.4-11.0)
[2025-10-17 05:20] LABS: Differential Indicated SCAN CRITERIA MET
[2025-10-17 05:36] LABS: AST(SGOT) 130 U/L (<=31); Alanine Aminotransfer ALT/SGPT 63 U/L (<=34); Albumin, Serum 2.8 g/dL (3.4-4.8); Alkaline Phosphatase 189 U/L (35-104); Anion Gap 12 (7-18); BUN 63 mg/dL (4-19); BUN/Creat Ratio 22.5 RATIO (10-20); Calcium,Total 6.9 mg/dL (7.6-11.0); Carbon Dioxide 15.1 mmol/L (20.0-29.0); Chloride 107 mmol/L (96-106); Estimated Creatinine Clearance 18.71 ml/min (50-250); Globulin 3.8 g/dL (2.2-4.2); Glucose 115 mg/dL (70-99); Potassium 4.0 mmol/L (3.5-5.1)
[2025-10-17 05:39] LABS: Differential Comment SCANNED
--- NOTE | 2025-10-17 07:12 | PN.HOSP_ITS ---
Reason for Visit Chief Complaint: Shortness of breath Subjective Subjective Taken off of BIPAP and tolerating nasal canula. Patient denies shortness of breath. Objective Data Objective Data Vital Signs: Vital Signs Temp Pulse Resp BP Pulse Ox O2 Del Method O2 Flow Rate 36.8 C 95 16 118/64 100 Bi-pap 2.5 10/17/25 05:43 10/17/25 06:28 10/17/25 06:28 10/17/25 06:28 10/17/25 06:28 10/17/25 06:28 10/17/25 04:00 FiO2 30 10/16/25 20:35 Oxygen Flow Rate (L/min) 2.5 Oxygen Delivery Method Bi-pap Weight: 73 kg Body Mass Index (BMI) 31.4 Intake & Output: Intake and Output for Last 24 Hours 10/15/25 10/16/25 10/17/25 23:59 23:59 23:59 Intake Total 2441.09 / 2719.19 2940.93 / 2940.93 92.82 / 92.82 Output Total 450 / 450 450 / 600 1225 / 1225 Balance 1990.09 / 2269.19 2490.93 / 2340.93 -1132.18 / -1132.18 Lab / Micro Data 10/17/25 04:58 10/17/25 04:58 Labs: Laboratory Results - last 24 hr 10/16/25 08:12: Urine Creatinine 93.80, Urine Urea Nitrogen 374 10/16/25 11:10: APTT 91.8 H* 10/16/25 18:04: APTT 77.4 H 10/17/25 00:05: APTT Cancelled 10/17/25 01:25: APTT 90.7 H* 10/17/25 04:58: WBC 15.9 H, RBC 2.65 L, Hgb 8.8 L, Hct 25.3 L, MCV 95.5, MCH 33.2 H, MCHC 34.8, RDW Std Deviation 47.1 H, RDW Coeff of Sanju 13.5, Plt Count 93 L, MPV 10.6, Immature Gran % (Auto) 3.500 H, Neut % (Auto) 87.1 H, Lymph % (Auto) 4.3 L, [place] % (Auto) 5.0, Eos % (Auto) 0.1, Baso % (Auto) 0.0, Absolute Neuts (auto) 13.8 H, Absolute Lymphs (auto) 0.68 L, Nucleated RBC % 0.1, Differential Comment SCANNED, Platelet Estimate MOD DEC, Sodium 134 L, Potassium 4.0, Chloride 107 H, Carbon Dioxide 15.1 L, Anion Gap 12, BUN 63 H, Creatinine 2.78 H, Estim Creat Clear Calc 18.71 L, Est GFR (MDRD) Non-Af 19 L, B UN/Creatinine Ratio 22.5 H, Glucose 115 H, Calcium 6.9 L, Total Bilirubin 0.42, AST 130 H, ALT 63 H, Alkaline Phosphatase 189 H, Total Protein 6.6, Albumin 2.8 L, Globulin 3.8, Albumin/Globulin Ratio 0.7 L Micro: Microbiology 10/14/25 20:15 Blood Culture (Wb) - Venous Blood Culture - Final Haemophilus influenzae 10/14/25 21:29 Blood Culture (Wb) - Right Forearm Blood Culture - Preliminary Haemophilus influenzae 10/15/25 08:30 Urine Catheter - Catheter Urine Culture - Preliminary Culture exhibits no growth. 10/15/25 04:33 Nasal Secretion MRSA (PCR) - Final 10/14/25 00:22 Urine Catheter - Valenzuela Legionella Antigen - Final 10/14/25 00:22 Urine Catheter - Valenzuela Streptococcus pneumoniae Antigen (M - Final 10/14/25 20:24 Mucosa - Nose SARS-CoV-2, Influenza & RSV (PCR) - Final SARS-CoV-2 (COVID 19 PCR) Physical Exam Const alert and no apparent distress Constitutional Narrative: on nasal canula. no respiratory distress. no conversational dyspnea. HEENT head/scalp atraumatic and moist oral mucous membranes Resp normal respiratory effort and no retractions Resp Narrative: coarse breath sounds bilaterally. Cardio regular rate, regular rhythm, S1 normal heart sound and S2 normal heart sound GI normal to inspection, nondistended, normoactive bowel sounds, soft to palpation, non-tender and non-distended Neuro Sensorium / Orientation: awake and alert Assessment & Plan Assessment/Plan (1) Acute on chronic hypoxic respiratory failure: (2) Sepsis: QUALIFIERS: Acute respiratory failure type: with hypoxia Sepsis acute organ dysfunction status: with acute organ dysfunction Sepsis type: s epsis due to unspecified organism Severe sepsis acute organ dysfunction type: a cute respiratory failure Severe sepsis shock status: without septic shock Q ualified Code(s): A41.9 - Sepsis, unspecified organism; R65.20 - Severe sepsis without septic shock; J96.01 - Acute respiratory failure with hypoxia (3) Community acquired pneumonia: QUALIFIERS: Laterality: left Lung location: lower lobe of lung Q ualified Code(s): J18.9 - Pneumonia, unspecified organism (4) COVID-19: (5) Acidosis, lactic: PLAN: Plan Sepsis with shock. * refer to H+P for criteria * as patient has at least 2 organ dysfunction (RICH and hypotension) due to infection which is pneumonia. * Has not required pressor yet responded to 2 L normal saline given in ED so we cannot call it septic shock despite the lactate of 9. Limited fluid resuscitation because of potential risk of worsening respiratory status and she is a DO NOT INTUBATE. * worsening hypotension. * CCM following. Norepinephrine weaned off. Avoid aggressive IVF as may worsen respiratory status. Pneumonia * Complicated by COVID-19 * abx w pip/tazo (cefalosporin allergy) * MRSA negative, strep and legionella antigens negative. BCx pending. SCx yet to be collected. * likely H flu given positive blood cultures. Bacteremia * H. flu * continue pip/tazo. dc vanc Acute hypoxic respiratory failure * 2/2 pneumonia and COVID. Elevated D-dimer (3.3). Cannot rule VTE. RICH limits use of contrast, * VQ ordered. * On heparin gtt. * Duplex LE negative. RICH * Creatinine from 09/08/2025 was 0.59, down slightly to 2.78 * Avoid nephrotoxic medications * US showed no hydronephrosis * Check urine studies. * Dilated IVC on POCUS with minimal collapsibility suggesting a component of volume overload, therefore aggresive IVF may worsen respiratory status. * FEUrea 22.25% consistent with prerenal azotemia. Patient received 500cc IVF infusion 10/16. COVID 19, acute, severe * on remdesivir. started dexamethasone (switched to methylpred by [facility]) Elevated troponins * likely demand ischemia from shock * Echo shows an EF of 75%. Left wrist fracture * sustained on the and splint placed on the (separate ED visit) * xray showed minimally comminuted impacted fracture of the distal radius extending to the radiocarpal joint. * [place]. Follow up with orthopaedics as outpt. Chronic conditions: * HTN: furosemide, lisinopril, spironolactone held given RICH and shock. Amlodipine held given shock. * mood disorder: duloxetine * seizure d/o: continue levetiracetam, * obesity class I: complicates care and recovery * alcohol abuse: expectant mgmt. VTE prophylaxis: not indicated while on heparin gtt. Charges/Coding Visit Charges Inpatient E&M: 51500 Subs Hosp L2
[2025-10-17] MEDS: 0.9% Saline Lock 10 ML Syringe IV ×3 (08:17→21:45)
[2025-10-17 09:04] LABS: Partial Thromboplast Time 179.1 Seconds (24.1-36.2)
--- NOTE | 2025-10-17 09:15 | CASEMGMT ---
MARY ISAAC called [facility] to verify current O2 orders, Pt currently on 3L continuous.
--- NOTE | 2025-10-17 09:42 | PN.CC_ITS ---
Objective Data Objective Data Vital Signs: Vital Signs Last response 3 Temperature 37.1 C 10/17/25 08:19 Temperature Source Oral 10/17/25 08:19 Pulse Rate 100 10/17/25 08:38 Pulse Strength Weak (1+) 10/16/25 20:19 Respiratory Rate 24 H 10/17/25 08:38 Respiratory Effort Non-Labored, Short of Breath 10/17/25 04:00 Respiratory Depth Normal 10/17/25 04:00 Respiratory Pattern Tachypnea 10/17/25 08:00 Blood Pressure 156/68 H 10/17/25 08:19 Blood Pressure Mean 97 10/17/25 08:19 Blood Pressure Source Monitor 10/17/25 08:19 Blood Pressure Position Semi-Fowlers 10/17/25 08:19 Blood Pressure Location Left Arm 10/17/25 08:19 Pulse Ox 95 10/17/25 08:38 Oxygen Delivery Method Nasal Cannula 10/17/25 08:38 Oxygen Flow Rate (L/min) 2 10/17/25 08:38 Fraction of Inspired Oxygen (FIO2) 30 10/16/25 20:35 I&O: I&O Last 24 Hours 3 10/16/25 10/16/25 10/17/25 11:59 23:59 11:59 Intake Total 948.51 / 2940.93 1992.42 / 2940.93 127.22 / 127.22 Output Total 350 / 600 100 / 600 1225 / 1225 Balance 598.51 / 2340.93 1892.42 / 2340.93 -1097.78 / -1097.78 I&O: Total Stay 3 10/14/25 20:06 thru 10/17/25 09:29 Intake Total 6709.24 Output Total 2125 Balance 4584.24 Current Meds Ordered / Administered: Current meds ordered / Administered 3 Generic Name Dose Route Start Last Admin Trade Name Freq PRN Reason Stop Dose Admin Acetaminophen 650 mg 10/16/25 08:54 10/16/25 09:54 Acetaminophen 325 Mg Tablet PO 650 mg Q6H PRN PRN Administration Pain 1-10 or Fever Albuterol Sulfate 2.5 mg 10/15/25 04:17 Albuterol 2.5 Mg/3 Ml Vial.Neb. INHALATION Q2H PRN PRN SOB &/OR WHEEZING Albuterol/Ipratropium 3 ml 10/15/25 06:00 10/17/25 08:38 Ipratropium/Albuterol Sulfate 3 Ml Ampul.Neb INHALATION 3 ml Q6HWA.RT KASH Administration Buspirone HCl 20 mg 10/15/25 06:00 10/17/25 05:02 Buspirone 5 Mg Tablet PO 20 mg TID KASH Administration Carbamazepine 400 mg 10/15/25 10:00 10/16/25 22:07 Carbamazepine 200 Mg Tablet PO 400 mg BID KASH Administration Duloxetine HCl 60 mg 10/15/25 10:00 10/16/25 08:00 Duloxetine Hcl 60 Mg Capsule PO 60 mg DAILY KASH Administration Heparin Sodium (Porcine) 0 unit 10/15/25 07:31 Heparin Nomogram Adjustment 5,000 Unit/Ml Vial IV UD PRN Dose Adjustment Protocol Pantoprazole Sodium 40 mg/ 100 mls @ 300 mls/hr 10/15/25 10:00 10/16/25 10:35 Sodium Chloride IV Infused Q24 KASH Infusion Sodium Chloride 250 mls @ 15 mls/hr 10/15/25 00:20 10/16/25 11:14 IV 0 mls/hr .[id number] PRN Infusion Saline Flush Sodium Chloride 250 mls @ 15 mls/hr 10/15/25 00:20 IV .[id number] PRN Additional IVPB Infusion Remdesivir 100 mg/ Sodium 250 mls @ 250 mls/hr 10/15/25 22:00 10/16/25 22:11 Chloride IV 10/18/25 22:59 Infused 2200 KASH Infusion Protocol Heparin Sodium/Dextrose 25,000 units in 250 mls @ 10.95 mls/hr 10/15/25 07:35 10/17/25 09:05 CONT INF 0 unit/kg/hr .[id number] KASH 0 mls/hr Protocol Titration 15 UNIT/KG/HR Norepinephrine Bitartrate 8 mg 250 mls @ 9.375 mls/hr 10/15/25 08:00 10/16/25 18:00 / Sodium Chloride CONT INF 0 mcg/min .[id number] KASH 0 mls/hr Protocol Titration 5 MCG/MIN Piperacillin Sod/Tazobactam 50 mls @ 12.5 mls/hr 10/16/25 22:00 10/17/25 02:19 Sod 3.375 gm/ Sodium Chloride IV Infused Q12 KASH Infusion Levetiracetam 500 mg 10/15/25 10:00 10/16/25 20:58 Levetiracetam 500 Mg Tablet PO 500 mg BID KASH Administration Methylprednisolone Sodium Succinate 40 mg 10/16/25 14:00 10/17/25 05:03 Methylprednisolone Sod Succ 40 Mg/Ml Vial IV 40 mg Q8 KASH Administration Ondansetron HCl 4 mg 10/14/25 22:36 Ondansetron 4 Mg/2 Ml Vial IV Q8H PRN PRN NAUSEA/VOMITING Sodium Chloride 10 - 40 ml 10/15/25 00:20 10/17/25 08:17 0.9% Saline Lock 10 Ml Syringe IV 40 ml UD PRN Administration SALINE FLUSH Lab / Micro Data 10/17/25 04:58 10/17/25 04:58 Labs: Laboratory Results - last 24 hr 10/16/25 11:10: APTT 91.8 H* 10/16/25 18:04: APTT 77.4 H 10/17/25 00:05: APTT Cancelled 10/17/25 01:25: APTT 90.7 H* 10/17/25 04:58: WBC 15.9 H, RBC 2.65 L, Hgb 8.8 L, Hct 25.3 L, MCV 95.5, MCH 33.2 H, MCHC 34.8, RDW Std Deviation 47.1 H, RDW Coeff of Sanju 13.5, Plt Count 93 L, MPV 10.6, Immature Gran % (Auto) 3.500 H, Neut % (Auto) 87.1 H, Lymph % (Auto) 4.3 L, [place] % (Auto) 5.0, Eos % (Auto) 0.1, Baso % (Auto) 0.0, Absolute Neuts (auto) 13.8 H, Absolute Lymphs (auto) 0.68 L, Nucleated RBC % 0.1, Differential Comment SCANNED, Platelet Estimate MOD DEC, Sodium 134 L, Potassium 4.0, Chloride 107 H, Carbon Dioxide 15.1 L, Anion Gap 12, BUN 63 H, Creatinine 2.78 H, Estim Creat Clear Calc 18.71 L, Est GFR (MDRD) Non-Af 19 L, B UN/Creatinine Ratio 22.5 H, Glucose 115 H, Calcium 6.9 L, Total Bilirubin 0.42, AST 130 H, ALT 63 H, Alkaline Phosphatase 189 H, Total Protein 6.6, Albumin 2.8 L, Globulin 3.8, Albumin/Globulin Ratio 0.7 L 10/17/25 08:20: APTT 179.1 H* Micro: Microbiology 10/14/25 20:15 Blood Culture (Wb) - Venous Blood Culture - Final Haemophilus influenzae 10/14/25 21:29 Blood Culture (Wb) - Right Forearm Blood Culture - Preliminary Haemophilus influenzae 10/15/25 08:30 Urine Catheter - Catheter Urine Culture - Preliminary Culture exhibits no growth. Imaging Radiology Impression Renal Ultrasound 10/15/25 07:27 IMPRESSION: No hydronephrosis. Reading Location: [facility] Echocardiogram 10/15/25 07:36 Interpretation Summary Hyperdynamic LV function with ejection fraction estimated at greater than 75%. Mild concentric left ventricular hypertrophy. Diastolic function is indeterminate. Degenerative changes otherwise no significant valvular heart disease appreciated. Ordering Physician: Mason Loza Referring Physician: Geovani Mancia Performed By: Beatriz Herzog RDCS Venous Doppler Study 10/15/25 07:38 Interpretation Summary Deep veins of the bilateral lower extremities are patent and compressible segmentally. There is no evidence of bilateral lower extremity deep vein thrombosis. The bilateral great saphenous veins appear patent and compressible segmentally. Ordering Physician: Mason Loza Referring Physician: Geovani Mancia Performed By: Jef Parmar RVT Assessment and Plan . Assessment and plan: Critical Care Time: The entirety of this encounter was done via Telemedicine Subjective Subjective S: Pt seen and examined. On NIV overnight and on 2L NC. Low grade temp. ~275cc UOP overnight. Hep gtt PE: General: obese acute on chronically ill appearing female; +NIV HEENT: anicteric Sclera, nl nose; supple neck, no masses Cardiovascular: S1/S2; No rubs, gallops; no displaced PM Respiratory: diminished with scattered wheezes/rhonchi; no crackles Abdominal: Non-tender; Non distended; hypoBS x 4; No Hepatosplenomegaly Extremities: Warm, well perfused; No clubbing, cyanosis; capillary refill < 2 sec Skin: intact, no rashes Neurological: lethargic/fatigued; A&Ox3; no gross deficits motor appreciated A/P: #Acute on chronic hypoxemic hypercapnic respiratory failure #Septic shock #COVID19 PNA with ?secondary bacterial PNA #Elevated troponin/NSTEMI type II #Tobacco abuse #Seizure disorder #Anxiety/depression #Hx AVM #Iron-deficiency anemia -Cont NIV; can attempt breaks on HHFNC as tolerated; titrate FiO2 to keep sats ~90-92% --> improved; stable on 2L; can encourage NIV use qHS for now -SP sepsis fluids; cont NEPi to keep MAP > 65 --> off pressors this AM -Cont emp IV ABx- Zosyn; F/U Cx --> added vanc 10/16, WBCs now improving; Cx NGTD -Cont remdes; monitor renal function/LFTs -Cont methylpred; cont nebs -Cont emp hep gtt x48h; LE dopplers neg for DVT; unable to get CTA to exclude PE due to RICH --> PLTs dropping, low degree of suspicion for PE; will hold hep gtt & get VQ scan; if low probability then would leave off A/C and if intermed or high prob can restart emp A/C with renally dosed Eliquis vs LMWH pending continued improvement in renal function at which point can get CTA; low probabilty HIT -Cont home AEDs PO diet Hep gtt --> on hold Very guarded prognosis DNR/DNI Gianluca Barry MD CCT: 50 min Entirety of encounter done via telemedicine Vitals, labs, diagnostics reviewed in EMR. This patients illness acutely impairs one or more vital organ systems such that there is a high probability of imminent or life threatening deterioration in the patient?s condition. I have used high-complexity decision making to assess, manipulate, & support vital systems to treat single or multiple vital organ system failure &/or prevent further life threatening deterioration of the patient?s condition. Time of note does not reflect time of service.
--- NOTE | 2025-10-17 10:07 | NM_ITS ---
PROCEDURE: QUANT LUNG PERFUSION SCAN REASON FOR EXAM: EVAL FOR POSSIBLE PE COMPARISON: None TECHNIQUE: Procedure Code: NMLQPS Modality: NM Procedure: QUANT LUNG PERFUSION SCAN (without ventilation imaging) using 5.5 mCi Tc-99m MAA intravenously. Anterior, posterior, right and left lateral, S[place]OVAL, TAI[place], RPO, and LPO perfusion images. FINDINGS: Perfusion images: There are multiple segmental perfusion defects in both lungs consistent with a high probability of pulmonary embolus. NM/Quant Lung Perfusion Scan IMPRESSION: HIGH PROBABILITY OF ACUTE PULMONARY EMBOLISM. Reading Location: [id number]
[2025-10-17] MEDS: Pantoprazole Sodium 40 MG in 0.9% Normal Saline (100mL MB+) 100 ML 300 MG IV (10:10)
[2025-10-17] MEDS: Piperacil/Tazobactam 3.375 GM in 0.9% Normal Saline (50mL MB+) 50 ML IV ×2 (10:46→21:46)
--- NOTE | 2025-10-17 11:39 | CASEMGMT ---
Insurance Fiscal Accounting Clerk Pt has insurance RN CM through [facility] that wishes to be updated when pt discharges. MARY An CM [phone]. RN CN updated. Odalis Francis DC Planning Asst.
[2025-10-17] MEDS: dexMEDEtomidine 400 MCG in 0.9% Normal Saline (100mL Bag) 96 ML 9.1 MCG CONT INF (12:49)
[2025-10-17 15:11] LABS: Neutrophil-Band 10 % (0-5); Neutrophil-Segmented 61 % (47-70)
--- NOTE | 2025-10-17 15:33 | CASEMGMT ---
MARY ISAAC received phone call from [facility] Leatha ISAAC. Provided update.
--- NOTE | 2025-10-17 16:08 | NURSING ---
Pt's daughter called in and she was given an update regarding events of shift-- etoh w/d tx. Daughter Shonda verbalizes that she has had a drinking problem lately. Mentioned to her that the pt was not forthcoming with this information which made it harder for us to be proactive w/ tx but she is currently well sedated and her respiratory status has improved. She was thankful for the updates.
[2025-10-17] MEDS: dexMEDEtomidine 400 MCG in 0.9% Normal Saline (100mL Bag) 96 ML 14.6 MCG CONT INF ×2 (16:56→23:10)
[2025-10-17] MEDS: CHLORHEXIDINE GLUC 2% CLOTH 1 EACH TOWELETTE TOPICAL (20:30)
[2025-10-17] MEDS: Remdesivir 100 MG in 0.9% Normal Saline (250mL Bag) 230 ML 250 MG IV (20:39)
[2025-10-18] VITALS (30 sets, daily range): BP systolic 110–174; BP diastolic 55–88; PULSE 73–103; RESP 14–33; TEMP 36.7–38.1; O2SAT 92–100
[2025-10-18 04:03] LABS: Hematocrit 24.3 % (37-47); Hemoglobin 8.3 g/dL (12.0-15.0); Immature Granulocytes Count 0.150 X10^3/uL (0.0-0.0); Mean Corp Hgb Conc 34.2 g/dL (32-36); Mean Corpuscular Volume 95.3 fL (81-99); Mean Platelet Vol. 9.4 fl (6.2-12.0); NRBC Flagged by Analyzer 0.3 % (0-5); POSITIVE COUNT YES; Platelet Count 79 K/mm3 (150-450); RBC Distribution Width CV 14.0 % (11.6-14.6); RBC Distribution Width SD 48.3 fl (35.1-43.9); Red Blood Count 2.55 M/mm3 (4.2-5.4); White Blood Count 9.8 K/mm3 (4.4-11.0)
[2025-10-18 04:19] LABS: AST(SGOT) 69 U/L (<=31); Albumin, Serum 2.7 g/dL (3.4-4.8); Alkaline Phosphatase 116 U/L (35-104); BUN 55 mg/dL (4-19); BUN/Creat Ratio 31.9 RATIO (10-20); Calcium,Total 8.1 mg/dL (7.6-11.0); Carbon Dioxide 17.9 mmol/L (20.0-29.0); Chloride 114 mmol/L (96-106); Estimated Creatinine Clearance 30.25 ml/min (50-250); Globulin 3.8 g/dL (2.2-4.2); Glucose 113 mg/dL (70-99); Potassium 4.3 mmol/L (3.5-5.1)
[2025-10-18 04:29] LABS: Alanine Aminotransfer ALT/SGPT 54 U/L (<=34); Anion Gap 11 (7-18)
[2025-10-18] MEDS: dexMEDEtomidine 400 MCG in 0.9% Normal Saline (100mL Bag) 96 ML 14.6 MCG CONT INF ×2 (05:37→12:25)
[2025-10-18] MEDS: 0.9% Saline Lock 10 ML Syringe IV ×2 (05:38→08:27)
--- NOTE | 2025-10-18 06:51 | PCM.PN.HOSP ---
Reason for Visit Chief Complaint: Shortness of breath Subjective Subjective More alert, but remains confused. Weaned off BiPAP. Objective Data Objective Data Vital Signs: Vital Signs Temp Pulse Resp BP Pulse Ox O2 Del Method O2 Flow Rate 36.8 C 86 20 H 137/64 H 97 Bi-pap 4 10/18/25 06:00 10/18/25 06:00 10/18/25 06:00 10/18/25 06:00 10/18/25 06:00 10/18/25 06:00 10/17/25 22:00 FiO2 25 10/18/25 06:00 Oxygen Flow Rate (L/min) 4 Oxygen Delivery Method Bi-pap Weight: 73 kg Body Mass Index (BMI) 31.4 Intake & Output: Intake and Output for Last 24 Hours 10/16/25 10/17/25 10/18/25 23:59 23:59 23:59 Intake Total 2940.93 / 2940.93 801.90 / 814.07 149.77 / 149.77 Output Total 450 / 600 2550 / 2550 450 / 450 Balance 2490.93 / 2340.93 -1748.10 / -1735.93 -300.23 / -300.23 Lab / Micro Data 10/18/25 03:54 10/18/25 03:54 Labs: Laboratory Results - last 24 hr 10/16/25 06:00: Absolute Neuts (auto) 15.6 H, Absolute Lymphs (auto) 3.08, Neutrophils % (Manual) 61, Band Neutrophils % 10 H, Lymphocytes % (Manual) 14 L, Monocytes % (Manual) 12 H, Metamyelocytes % 3 H, Diff Path Review Reviewed 10/17/25 08:20: APTT 179.1 H* 10/18/25 03:54: WBC 9.8, RBC 2.55 L, Hgb 8.3 L, Hct 24.3 L, MCV 95.3, MCH 32.5 H, MCHC 34.2, RDW Std Deviation 48.3 H, RDW Coeff of Sanju 14.0, Plt Count 79 L, MPV 9.4, Immature Gran % (Auto) 1.500 H, Neut % (Auto) 82.8 H, Lymph % (Auto) 8.3 L, [place] % (Auto) 7.0, Eos % (Auto) 0.1, Baso % (Auto) 0.3, Absolute Neuts (auto) 8.1 H, Absolute Lymphs (auto) 0.82 L, Nucleated RBC % 0.3, Sodium 143, Potassium 4.3, Chloride 114 H, Carbon Dioxide 17.9 L, Anion Gap 11, BUN 55 H, Creatinine 1.72 H, Estim Creat Clear Calc 30.25 L, Est GFR (MDRD) Non-Af 33 L, BUN/Creatinine Ratio 31.9 H, Glucose 113 H, Calcium 8.1, Total Bilirubin 0.30, AST 69 H, ALT 54 H, Alkaline Phosphatase 116 H, Total Protein 6.4, Albumin 2.7 L, Globulin 3.8, Albumin/Globulin Ratio 0.7 L Micro: Microbiology 10/14/25 21:29 Blood Culture (Wb) - Right Forearm Blood Culture - Preliminary Haemophilus influenzae 10/14/25 20:15 Blood Culture (Wb) - Venous Blood Culture - Final Haemophilus influenzae 10/15/25 08:30 Urine Catheter - Catheter Urine Culture - Final Culture exhibits no growth. 10/15/25 04:33 Nasal Secretion MRSA (PCR) - Final 10/14/25 00:22 Urine Catheter - Valenzuela Legionella Antigen - Final 10/14/25 00:22 Urine Catheter - Valenzuela Streptococcus pneumoniae Antigen (M - Final 10/14/25 20:24 Mucosa - Nose SARS-CoV-2, Influenza & RSV (PCR) - Final SARS-CoV-2 (COVID 19 PCR) Radiography Diagnostic Testing: Radiology Impression Lung Scan-VQ NM 10/17/25 10:07 IMPRESSION: HIGH PROBABILITY OF ACUTE PULMONARY EMBOLISM. Reading Location: [id number] Physical Exam Const alert and no apparent distress HEENT head/scalp atraumatic and moist oral mucous membranes Resp normal respiratory effort, no retractions, no use of accessory muscles and clear to auscultation bilaterally Cardio regular rate, regular rhythm, S1 normal heart sound and S2 normal heart sound GI normal to inspection, nondistended, normoactive bowel sounds, soft to palpation and non-tender Neuro oriented x3 and CN's II-XII intact bilaterally Sensorium / Orientation: awake, alert, oriented to person and oriented to place; Negative for oriented to time Assessment & Plan Assessment/Plan (1) Acute on chronic hypoxic respiratory failure: (2) Sepsis: QUALIFIERS: Acute respiratory failure type: with hypoxia Sepsis acute organ dysfunction status: with acute organ dysfunction Sepsis type: sepsis due to unspecified organism Severe sepsis acute organ dysfunction type: acute respiratory failure Severe sepsis shock status: without septic shock Qualified Code(s): A41.9 - Sepsis, unspecified organism; R65.20 - Severe sepsis without septic shock; J96.01 - Acute respiratory failure with hypoxia (3) Community acquired pneumonia: QUALIFIERS: Laterality: left Lung location: lower lobe of lung Qualified Code(s): J18.9 - Pneumonia, unspecified organism (4) COVID-19: (5) Acidosis, lactic: PLAN: Plan Sepsis with shock. refer to H+P for criteria as patient has at least 2 organ dysfunction (RICH and hypotension) due to infection which is pneumonia. Has not required pressor yet responded to 2 L normal saline given in ED so we cannot call it septic shock despite the lactate of 9. Limited fluid resuscitation because of potential risk of worsening respiratory status and she is a DO NOT INTUBATE. worsening hypotension. CCM following. Norepinephrine weaned off. Avoid aggressive IVF as may worsen respiratory status. Pneumonia Complicated by COVID-19 abx w pip/tazo (cefalosporin allergy) MRSA negative, strep and legionella antigens negative. BCx pending. SCx yet to be collected. likely H flu given positive blood cultures. Bacteremia H. flu continue pip/tazo. dc vanc Acute hypoxic respiratory failure 2/2 pneumonia and COVID and PE. Elevated D-dimer (3.3). Cannot rule VTE. RICH limits use of contrast, VQ ordered showing high probability of PE. Changed to therapeutic enoxaparin. Duplex LE negative. Metabolic acidosis will give an amp of NaHCO3 and recheck ABG showed improvement. Will hold off on additional ABGs unless condition changes. RICH Creatinine from 09/08/2025 was 0.59, down to 1.72 (from peak of 3.16) US showed no hydronephrosis FEUrea 22.25% consistent with prerenal azotemia. Patient received 500cc IVF infusion 10/16. COVID 19, acute, severe on remdesivir. started dexamethasone (switched to methylpred by [facility]) Elevated troponins likely demand ischemia from shock Echo shows an EF of 75%. Left wrist fracture sustained on the and splint placed on the (separate ED visit) xray showed minimally comminuted impacted fracture of the distal radius extending to the radiocarpal joint. DOMI MENDIETA. Follow up with orthopaedics as outpt. encephalopathy became more confused on 10/17, placed back on BiPAP. Patient was hallucinating (see a small child) started on dexmedetomidine gtt. concern for alcohol withdrawal as patient has reported h/o alcohol abuse. improved, still confused. anemia: trending down during hospitalization check iron studies, B12, folate, TSH, hemoccult Chronic conditions: HTN: furosemide, lisinopril, spironolactone held given RICH and shock. Amlodipine held given shock. 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 VTE prophylaxis: not indicated while on anticoagulation Charges/Coding Visit Charges Inpatient E&M: 08523 Subs Hosp L3
--- NOTE | 2025-10-18 07:04 | CPS ---
Patient just finished with nebulizer treatment that was running at 8LPM of Oxygen when ABG was drawn.
[2025-10-18 07:21] LABS: Allen Test Positive; Base Excess -8 mmol/L (-2 to +2); FI02 3.0; PO2 98 mmHG (75-100); SITE R Radial; SO2 97 % (94-98)
[2025-10-18] MEDS: Metoprolol(XL)Succ 25 MG Tablet PO (08:19)
[2025-10-18] MEDS: Sodium Bicarbonate 8.4% 50 ML Syringe 50 MEQ IV (08:27)
[2025-10-18] MEDS: Thiamine Hydrochloride 100 MG in 0.9% Normal Saline (50mL Bag) 50 ML 200 MG IV (09:10)
[2025-10-18] MEDS: Piperacil/Tazobactam 3.375 GM in 0.9% Normal Saline (50mL MB+) 50 ML IV ×3 (09:31→22:21)
--- NOTE | 2025-10-18 10:34 | PN.CC_ITS ---
Objective Data Objective Data Vital Signs: Vital Signs Last response 3 Temperature 37.0 C 10/18/25 09:00 Temperature Source Core 10/18/25 09:00 Pulse Rate 98 10/18/25 09:00 Pulse Strength Normal (2+) 10/18/25 08:58 Respiratory Rate 23 H 10/18/25 09:00 Respiratory Effort Short of Breath, Labored 10/18/25 08:00 Respiratory Depth Deep 10/18/25 08:00 Respiratory Pattern Tachypnea 10/18/25 08:00 Blood Pressure 158/72 H 10/18/25 09:00 Blood Pressure Mean 100 10/18/25 09:00 Blood Pressure Source Monitor 10/18/25 09:00 Blood Pressure Position Semi-Fowlers 10/18/25 09:00 Blood Pressure Location Left Arm 10/18/25 09:00 Pulse Ox 95 10/18/25 09:00 Oxygen Delivery Method Nasal Cannula 10/18/25 09:00 Oxygen Flow Rate (L/min) 3 10/18/25 09:00 Fraction of Inspired Oxygen (FIO2) 10/18/25 06:00 I&O: I&O Last 24 Hours 3 10/17/25 10/17/25 10/18/25 11:59 23:59 11:59 Intake Total 227.22 / 814.07 574.68 / 814.07 244.57 / 244.57 Output Total 1225 / 2550 1325 / 2550 450 / 450 Balance -997.78 / -1735.93 -750.32 / -1735.93 -205.43 / -205.43 I&O: Total Stay 3 10/14/25 20:06 thru 10/18/25 09:38 Intake Total 7628.49 Output Total 3900 Balance 3728.49 Current Meds Ordered / Administered: Current meds ordered / Administered 3 Generic Name Dose Route Start Last Admin Trade Name Freq PRN Reason Stop Dose Admin Acetaminophen 650 mg 10/16/25 08:54 10/16/25 09:54 Acetaminophen 325 Mg Tablet PO 650 mg Q6H PRN PRN Administration Pain 1-10 or Fever Albuterol Sulfate 2.5 mg 10/15/25 04:17 Albuterol 2.5 Mg/3 Ml Vial.Neb. INHALATION Q2H PRN PRN SOB &/OR WHEEZING Albuterol/Ipratropium 3 ml 10/15/25 06:00 10/18/25 06:52 Ipratropium/Albuterol Sulfate 3 Ml Ampul.Neb INHALATION 3 ml Q6HWA.RT KASH Administration Alprazolam 1 mg 10/17/25 22:00 10/17/25 21:50 Alprazolam 0.5 Mg Tablet PO Not Given QHS KASH Amlodipine Besylate 10 mg 10/18/25 10:00 10/18/25 08:19 Amlodipine 10 Mg Tablet PO 10 mg DAILY KASH Administration Protocol Atorvastatin Calcium 80 mg 10/17/25 22:00 10/17/25 21:47 Atorvastatin Calcium 80 Mg Tablet PO 80 mg QHS KASH Administration Buspirone HCl 20 mg 10/15/25 06:00 10/18/25 05:39 Buspirone 5 Mg Tablet PO 20 mg TID KASH Administration Calamine/Phenol 1 applic 10/17/25 22:00 10/18/25 08:30 Menthol/Lanolin/Calamine/Znox 113 Gm Tube TOPICAL 1 applic BID KASH Administration Protocol Carbamazepine 400 mg 10/15/25 10:00 10/18/25 08:19 Carbamazepine 200 Mg Tablet PO 400 mg BID KASH Administration Chlorhexidine Gluconate 1 each 10/18/25 10:00 10/17/25 20:30 Chlorhexidine Gluc 2% Cloth 1 Each [place] TOPICAL 1 each DAILY KASH Administration Duloxetine HCl 60 mg 10/15/25 10:00 10/18/25 08:20 Duloxetine Hcl 60 Mg Capsule PO 60 mg DAILY KASH Administration Enoxaparin Sodium 70 mg 10/17/25 16:30 10/18/25 08:20 Enoxaparin 80 Mg/0.8 Ml Syringe SC 70 mg Q24 KASH Administration Sodium Chloride 250 mls @ 15 mls/hr 10/15/25 00:20 10/16/25 11:14 IV 0 mls/hr .[id number] PRN Infusion Saline Flush Sodium Chloride 250 mls @ 15 mls/hr 10/15/25 00:20 IV .[id number] PRN Additional IVPB Infusion Remdesivir 100 mg/ Sodium 250 mls @ 250 mls/hr 10/15/25 22:00 10/17/25 21:39 Chloride IV 10/18/25 22:59 Infused 2200 KASH Infusion Protocol Norepinephrine Bitartrate 8 mg 250 mls @ 9.375 mls/hr 10/15/25 08:00 10/17/25 13:31 / Sodium Chloride CONT INF Not Given .[id number] KASH Protocol 5 MCG/MIN Dexmedetomidine HCl 400 mcg/ 100 mls @ 9.125 mls/hr 10/17/25 12:30 10/18/25 09:00 Sodium Chloride CONT INF 0.8 mcg/kg/hr .[id number] KASH 14.6 mls/hr Protocol Titration 0.5 MCG/KG/HR Thiamine HCl 100 mg/ Sodium 51 mls @ 200 mls/hr 10/18/25 10:00 10/18/25 09:38 Chloride IV Infused DAILY KASH Infusion Piperacillin Sod/Tazobactam 50 mls @ 12.5 mls/hr 10/18/25 08:00 10/18/25 09:31 Sod 3.375 gm/ Sodium Chloride IV 12.5 mls/hr Q8 KASH Administration Levetiracetam 500 mg 10/15/25 10:00 10/18/25 08:20 Levetiracetam 500 Mg Tablet PO 500 mg BID KASH Administration Lorazepam 2 mg 10/17/25 13:24 Lorazepam 1 Mg Tablet PO Q2H PRN PRN CIWA score > 8 but <15 Protocol Lorazepam 2 mg 10/17/25 13:24 Lorazepam 2 Mg/Ml Syringe IV Q2H PRN PRN CIWA score > 8 but <15 Protocol Lorazepam 2 mg 10/17/25 13:24 10/17/25 13:35 Lorazepam 2 Mg/Ml Syringe IV 2 mg UD PRN Administration CIWA score >/=15. Protocol Lorazepam 2 mg 10/17/25 13:24 Lorazepam 1 Mg Tablet PO UD PRN CIWA score >/=15. Protocol Methylprednisolone Sodium Succinate 40 mg 10/16/25 14:00 10/18/25 05:38 Methylprednisolone Sod Succ 40 Mg/Ml Vial IV 40 mg Q8 KASH Administration Metoprolol Succinate 25 mg 10/17/25 11:00 10/18/25 08:19 Metoprolol(Xl)Succ 25 Mg Tablet PO 25 mg DAILY KASH Administration Protocol Multivitamins 1 tablet 10/18/25 10:00 10/18/25 08:20 Multivitamins,Therapeutic Tablet PO 1 tablet DAILY KASH Administration Ondansetron HCl 4 mg 10/14/25 22:36 Ondansetron 4 Mg/2 Ml Vial IV Q8H PRN PRN NAUSEA/VOMITING Pantoprazole Sodium 40 mg 10/17/25 22:00 10/18/25 08:20 Pantoprazole Sodium 40 Mg Tablet PO 40 mg BID KASH Administration Sodium Chloride 10 - 40 ml 10/15/25 00:20 10/18/25 08:27 0.9% Saline Lock 10 Ml Syringe IV 20 ml UD PRN Administration SALINE FLUSH Sucralfate 1 gm 10/17/25 16:00 10/18/25 05:38 Sucralfate 1 Gm Tablet PO 1 gm BIDAC KASH Administration Lab / Micro Data 10/18/25 03:54 10/18/25 03:54 Labs: Laboratory Results - last 24 hr 10/16/25 06:00: Absolute Neuts (auto) 15.6 H, Absolute Lymphs (auto) 3.08, Neutrophils % (Manual) 61, Band Neutrophils % 10 H, Lymphocytes % (Manual) 14 L, Monocytes % (Manual) 12 H, Metamyelocytes % 3 H, Diff Path Review Reviewed 10/18/25 03:54: WBC 9.8, RBC 2.55 L, Hgb 8.3 L, Hct 24.3 L, MCV 95.3, MCH 32.5 H , MCHC 34.2, RDW Std Deviation 48.3 H, RDW Coeff of Sanju 14.0, Plt Count 79 L, MPV 9.4, Immature Gran % (Auto) 1.500 H, Neut % (Auto) 82.8 H, Lymph % (Auto) 8.3 L, [place] % (Auto) 7.0, Eos % (Auto) 0.1, Baso % (Auto) 0.3, Absolute Neuts (auto) 8.1 H, Absolute Lymphs (auto) 0.82 L, Nucleated RBC % 0.3, Sodium 143, Potassium 4.3, Chloride 114 H, Carbon Dioxide 17.9 L, Anion Gap 11, BUN 55 H, C reatinine 1.72 H, Estim Creat Clear Calc 30.25 L, Est GFR (MDRD) Non-Af 33 L, B UN/Creatinine Ratio 31.9 H, Glucose 113 H, Calcium 8.1, Total Bilirubin 0.30, A ST 69 H, ALT 54 H, Alkaline Phosphatase 116 H, Total Protein 6.4, Albumin 2.7 L, Globulin 3.8, Albumin/Globulin Ratio 0.7 L Micro: Microbiology 10/14/25 21:29 Blood Culture (Wb) - Right Forearm Blood Culture - Preliminary Haemophilus influenzae 10/14/25 20:15 Blood Culture (Wb) - Venous Blood Culture - Final Haemophilus influenzae 10/15/25 08:30 Urine Catheter - Catheter Urine Culture - Final Culture exhibits no growth. ABG Data ABG results: ABG 10/18/25 07:18 Specimen Type ART Sample Site R Radial pH 7.28 L Bicarbonate Actual 18.7 L Total CO2 20 Base Excess -8 L O2 Saturation 97 O2 % 3.0 ABG pCO2 40.1 ABG pO2 98 Jose Test Positive O2 Delivery Device Cannula Vent Mode Not entered Imaging Radiology Impression Lung Scan-VQ NM 10/17/25 10:07 IMPRESSION: HIGH PROBABILITY OF ACUTE PULMONARY EMBOLISM. Reading Location: [id number] Assessment and Plan . Assessment and plan: Critical Care Time: The entirety of this encounter was done via Telemedicine Subjective Subjective S: Pt seen and examined. Developed ETOH withdrawal symptoms yesterday and was placed on Precedex. Doing well since then and currently on 3L NC without any complaints Precedex gtt PE: General: obese acute on chronically ill appearing female; +NC HEENT: anicteric Sclera, nl nose; supple neck, no masses Cardiovascular: S1/S2; No rubs, gallops; no displaced PM Respiratory: diminished with scattered wheezes/rhonchi; no crackles Abdominal: Non-tender; Non distended; hypoBS x 4; No Hepatosplenomegaly Extremities: Warm, well perfused; No clubbing, cyanosis; capillary refill < 2 sec Skin: intact, no rashes Neurological: awake; A&Ox3; no gross deficits motor appreciated A/P: #Acute on chronic hypoxemic hypercapnic respiratory failure #Septic shock #COVID19 PNA with ?secondary bacterial PNA #High probability PE based on VQ scan #Elevated troponin/NSTEMI type II #Tobacco abuse #Seizure disorder #Anxiety/depression #Hx AVM #Iron-deficiency anemia -Cont NIV; can attempt breaks on HHFNC as tolerated; titrate FiO2 to keep sats ~90-92% --> appears resolved; stable on 2-3L; encourage NIV use qHS for now -SP sepsis fluids; cont NEPi to keep MAP > 65 --> off pressors >48h -Cont emp IV ABx- Zosyn; F/U Cx --> added vanc 10/16, WBCs now improving; Cx NGTD -Cont remdes; monitor renal function/LFTs -Cont methylpred; cont nebs -Cont emp hep gtt x48h; LE dopplers neg for DVT; unable to get CTA to exclude PE due to RICH --> PLTs dropping, low degree of suspicion for PE; will hold hep gtt & get VQ scan; if low probability then would leave off A/C and if intermed or high prob can restart emp A/C with renally dosed Eliquis vs LMWH pending continued improvement in renal function at which point can get CTA; low probabilty HIT --> VQ high prob PE and given renally dosed LMWH yesterday afternoon; sCr improving so would target CTA chest when possible in next few days and ultimately transition to Eliquis -Monitor blood counts/PLTs -Cont home AEDs PO diet FD LMWH Very guarded prognosis DNR/DNI Gianluca Barry MD CCT: 50 min Entirety of encounter done via telemedicine Vitals, labs, diagnostics reviewed in EMR. This patients illness acutely impairs one or more vital organ systems such that there is a high probability of imminent or life threatening deterioration in the patient?s condition. I have used high-complexity decision making to assess, manipulate, & support vital systems to treat single or multiple vital organ system failure &/or prevent further life threatening deterioration of the patient?s condition. Time of note does not reflect time of service.
[2025-10-18 12:26] LABS: Base Excess -5 mmol/L (-2 to +2); FI02 3.0; PO2 69 mmHG (75-100); SITE R Radial; SO2 93 % (94-98)
[2025-10-18 15:02] LABS: Iron 63 ug/dL (50-170); Iron Binding Capacity,Unsat 119 ug/dL (228-428)
[2025-10-18 15:03] LABS: FOLATES,SERUM (FOLIC ACID) 13.30 ng/mL (4.60-34.80)
[2025-10-18] MEDS: dexMEDEtomidine 400 MCG in 0.9% Normal Saline (100mL Bag) 96 ML 27.4 MCG CONT INF ×2 (17:00→20:45)
[2025-10-18 18:04] LABS: Vitamin B12 > 2000 pg/mL (180-914)
[2025-10-18 18:05] LABS: Iron Binding Capacity,Total 182 ug/dL (250-450)
[2025-10-18] MEDS: CHLORHEXIDINE GLUC 2% CLOTH 1 EACH TOWELETTE TOPICAL (20:05)
[2025-10-18] MEDS: Remdesivir 100 MG in 0.9% Normal Saline (250mL Bag) 230 ML 250 MG IV (21:17)
[2025-10-19] VITALS (28 sets, daily range): BP systolic 123–174; BP diastolic 56–98; PULSE 60–86; RESP 16–25; TEMP 36.2–37.5; O2SAT 87–100
[2025-10-19] MEDS: dexMEDEtomidine 1,000 MCG in 0.9% Normal Saline (250mL Bag) 240 ML 27.4 MCG CONT INF ×3 (00:28→18:37)
[2025-10-19] MEDS: Piperacil/Tazobactam 3.375 GM in 0.9% Normal Saline (50mL MB+) 50 ML IV ×3 (05:13→21:16)
[2025-10-19 05:18] LABS: Hematocrit 25.2 % (37-47); Hemoglobin 8.5 g/dL (12.0-15.0); Immature Granulocytes Count 0.140 X10^3/uL (0.0-0.0); Mean Corp Hgb Conc 33.7 g/dL (32-36); Mean Corpuscular Volume 97.3 fL (81-99); Mean Platelet Vol. 10.3 fl (6.2-12.0); NRBC Flagged by Analyzer 0.4 % (0-5); POSITIVE COUNT YES; POSITIVE MORPHOLOGY YES; Platelet Count 95 K/mm3 (150-450); RBC Distribution Width CV 14.6 % (11.6-14.6); RBC Distribution Width SD 51.8 fl (35.1-43.9); Red Blood Count 2.59 M/mm3 (4.2-5.4); White Blood Count 7.4 K/mm3 (4.4-11.0)
[2025-10-19 05:19] LABS: Differential Indicated SCAN CRITERIA MET
[2025-10-19 05:46] LABS: Anion Gap 9 (7-18); BUN 37 mg/dL (4-19); BUN/Creat Ratio 36.2 RATIO (10-20); Calcium,Total 8.6 mg/dL (7.6-11.0); Carbon Dioxide 21.3 mmol/L (20.0-29.0); Chloride 117 mmol/L (96-106); Estimated Creatinine Clearance 51.51 ml/min (50-250); Glucose 113 mg/dL (70-99); Potassium 3.8 mmol/L (3.5-5.1)
[2025-10-19 06:24] LABS: Differential Comment SCANNED; Reactive Lymphocyte RARE
--- NOTE | 2025-10-19 07:29 | PN.HOSP_ITS ---
Reason for Visit Chief Complaint: Shortness of breath Subjective Subjective Still confused. Objective Data Objective Data Vital Signs: Vital Signs Temp Pulse Resp BP Pulse Ox O2 Del Method O2 Flow Rate 37.1 C 71 20 H 156/73 H 99 Nasal Cannula 3 10/19/25 06:00 10/19/25 06:00 10/19/25 06:00 10/19/25 06:00 10/19/25 06:00 10/19/25 06:00 10/19/25 06:00 FiO2 25 10/19/25 00:00 Oxygen Flow Rate (L/min) 3 Oxygen Delivery Method Nasal Cannula Weight: 73 kg Body Mass Index (BMI) 31.4 Intake & Output: Intake and Output for Last 24 Hours 10/17/25 10/18/25 10/19/25 23:59 23:59 23:59 Intake Total 801.90 / 814.07 906.10 / 933.50 212.56 / 212.56 Output Total 2550 / 2550 1400 / 2000 1350 / 1350 Balance -1748.10 / -1735.93 -493.90 / -1066.50 -1137.44 / -1137.44 Lab / Micro Data 10/19/25 05:08 10/19/25 05:08 Labs: Laboratory Results - last 24 hr 10/18/25 14:05: Iron 63, TIBC 182 L, Iron Saturation 34.7, Unsaturated IBC 119 L , Vitamin B12 > 2000 H, Serum Folate 13.30, TSH 1.940 10/19/25 05:08: WBC 7.4, RBC 2.59 L, Hgb 8.5 L, Hct 25.2 L, MCV 97.3, MCH 32.8 H , MCHC 33.7, RDW Std Deviation 51.8 H, RDW Coeff of Sanju 14.6, Plt Count 95 L, MPV 10.3, Immature Gran % (Auto) 1.900 H, Neut % (Auto) 69.6, Lymph % (Auto) 20.5, [place] % (Auto) 7.3, Eos % (Auto) 0.3, Baso % (Auto) 0.4, Absolute Neuts (auto) 5.2, Absolute Lymphs (auto) 1.52, Nucleated RBC % 0.4, Differential Comment SCANNED, Reactive Lymphocytes RARE, Sodium 148 H, Potassium 3.8, C hloride 117 H, Carbon Dioxide 21.3, Anion Gap 9, BUN 37 H, Creatinine 1.01, Estim Creat Clear Calc 51.51, Est GFR (MDRD) Non-Af 63, BUN/Creatinine Ratio 36.2 H, Glucose 113 H, Calcium 8.6 Micro: Microbiology 10/14/25 21:29 Blood Culture (Wb) - Right Forearm Blood Culture - Preliminary Haemophilus influenzae 10/14/25 20:15 Blood Culture (Wb) - Venous Blood Culture - Final Haemophilus influenzae 10/15/25 08:30 Urine Catheter - Catheter Urine Culture - Final Culture exhibits no growth. 10/15/25 04:33 Nasal Secretion MRSA (PCR) - Final 10/14/25 00:22 Urine Catheter - Valenzuela Legionella Antigen - Final 10/14/25 00:22 Urine Catheter - Valenzuela Streptococcus pneumoniae Antigen (M - Final 10/14/25 20:24 Mucosa - Nose SARS-CoV-2, Influenza & RSV (PCR) - Final SARS-CoV-2 (COVID 19 PCR) ABG Data ABG results: ABG 10/18/25 12:23 Specimen Type ART Sample Site R Radial pH 7.36 Bicarbonate Actual 20.3 L Total CO2 21 Base Excess -5 L O2 Saturation 93 L O2 % 3.0 ABG pCO2 35.8 ABG pO2 69 L O2 Delivery Device Cannula Vent Mode Not entered Physical Exam Const alert and no apparent distress Constitutional Narrative: difficulty managing her pills. Orientation / Consciousness: confused Resp normal respiratory effort and no retractions Cardio regular rate, regular rhythm, S1 normal heart sound and S2 normal heart sound GI normal to inspection, nondistended, normoactive bowel sounds, soft to palpation, non-tender and non-distended Neuro Sensorium / Orientation: awake and oriented to person; Negative for oriented to time Assessment & Plan Assessment/Plan (1) Acute on chronic hypoxic respiratory failure: (2) Sepsis: QUALIFIERS: Acute respiratory failure type: with hypoxia Sepsis acute organ dysfunction status: with acute organ dysfunction Sepsis type: s epsis due to unspecified organism Severe sepsis acute organ dysfunction type: a cute respiratory failure Severe sepsis shock status: without septic shock Q ualified Code(s): A41.9 - Sepsis, unspecified organism; R65.20 - Severe sepsis without septic shock; J96.01 - Acute respiratory failure with hypoxia (3) Community acquired pneumonia: QUALIFIERS: Laterality: left Lung location: lower lobe of lung Q ualified Code(s): J18.9 - Pneumonia, unspecified organism (4) COVID-19: (5) Acidosis, lactic: PLAN: Plan Sepsis with shock. * POA * refer to H+P for criteria * as patient has at least 2 organ dysfunction (RICH and hypotension) due to infection which is pneumonia. * Has not required pressor yet responded to 2 L normal saline given in ED so we cannot call it septic shock despite the lactate of 9. Limited fluid resuscitation because of potential risk of worsening respiratory status and she is a DO NOT INTUBATE. * worsening hypotension. * CCM following. Norepinephrine weaned off. Pneumonia * Complicated by COVID-19 * abx w pip/tazo (cefalosporin allergy) * MRSA negative, strep and legionella antigens negative. BCx pending. SCx yet to be collected. * likely H flu given positive blood cultures. Bacteremia * H. flu * continue pip/tazo. dc vanc * consult ID for length of abx. Acute PE * high probability on VQ (CTA was unable to be performed given RICH {since resolved}) * on therapeutic enoxaparin. Will change to apixaban. Acute hypoxic respiratory failure * improved * 2/2 pneumonia and COVID and PE. Elevated D-dimer (3.3). Cannot rule VTE. RICH limits use of contrast, * VQ ordered showing high probability of PE. * Changed to therapeutic enoxaparin. * Duplex LE negative. encephalopathy * became more confused on 10/17, placed back on BiPAP. Patient was hallucinating (see a small child) * started on dexmedetomidine gtt. concern for alcohol withdrawal as patient has reported h/o alcohol abuse. * improved, still confused. * started on phenobarbital * check head CT given ongoing confusion. anemia: * trending down during hospitalization * check iron, folate and TSH WNL. B12 elevated. * hemoccult pending * currently stable. Unless ongoing drops, would defer GI evaluation to outpatient. * continue anticoagulation for now. Thrombocytopenia * began shortly after admission dropping from 258 to 180, has since dropped nadiring at 79. This clinically not due to HIT, but more likely septic shock and VTE * continue to monitor Resolved/stable issues: * Metabolic acidosis: resolved. Patient received an amp of NaHCO3 and recheck ABG showed improvement. Will hold off on additional ABGs unless condition changes. * RICH: Creatinine from 09/08/2025 was 0.59, down to 1.01 (from peak of 3.16). US showed no hydronephrosis. FEUrea 22.25% consistent with prerenal azotemia. Patient received 500cc IVF infusion 10/16. * COVID 19, acute, severe. completed remdesevir. Started on dexamethasone, then CCM changed to methylprednisolone. * Elevated troponins: likely demand ischemia from shock. Echo shows an EF of 75%. * Left wrist fracture: sustained on the and splint placed on the (separate ED visit). xray showed minimally comminuted impacted fracture of the distal radius extending to the radiocarpal joint. DOMI MENDIETA. Patient had splint placed in ED on the , but when she presented for this admission (on the ), it was not on. DW bryan Mcqueen for velcro splint and follow up as outpt. Chronic conditions: * HTN: furosemide, lisinopril, spironolactone held given RICH and shock. Amlodipine held given shock. 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 VTE prophylaxis: not indicated while on anticoagulation Charges/Coding Visit Charges Inpatient E&M: 98172 Subs Hosp L3
[2025-10-19] MEDS: Metoprolol(XL)Succ 25 MG Tablet PO (07:55)
[2025-10-19] MEDS: APIXABAN 5 MG TABLET 10 MG PO (08:13)
--- NOTE | 2025-10-19 09:11 | PN.CC_ITS ---
Objective Data Objective Data Vital Signs: Vital Signs Last response 3 Temperature 37.1 C 10/19/25 06:00 Temperature Source Core 10/19/25 06:00 Pulse Rate 71 10/19/25 06:00 Pulse Strength Normal (2+) 10/18/25 19:31 Respiratory Rate 20 H 10/19/25 06:00 Respiratory Effort Short of Breath 10/19/25 04:00 Respiratory Depth Normal 10/19/25 04:00 Respiratory Pattern Normal 10/19/25 04:00 Blood Pressure 156/73 H 10/19/25 06:00 Blood Pressure Mean 100 10/19/25 06:00 Blood Pressure Source Monitor 10/19/25 06:00 Blood Pressure Position Semi-Fowlers 10/19/25 06:00 Blood Pressure Location Left Arm 10/19/25 06:00 Pulse Ox 99 10/19/25 06:00 Oxygen Delivery Method Nasal Cannula 10/19/25 06:00 Oxygen Flow Rate (L/min) 3 10/19/25 06:00 Fraction of Inspired Oxygen (FIO2) 25 10/19/25 00:00 I&O: I&O Last 24 Hours 3 10/18/25 10/18/25 10/19/25 11:59 23:59 11:59 Intake Total 273.77 / 933.50 632.33 / 933.50 212.56 / 212.56 Output Total 450 / 2000 950 / 2000 1350 / 1350 Balance -176.23 / -1066.50 -317.67 / -1066.50 -1137.44 / -1137.44 I&O: Total Stay 3 10/14/25 20:06 thru 10/19/25 05:11 Intake Total 8502.58 Output Total 6200 Balance 2302.58 Current Meds Ordered / Administered: Current meds ordered / Administered 3 Generic Name Dose Route Start Last Admin Trade Name Freq PRN Reason Stop Dose Admin Acetaminophen 650 mg 10/16/25 08:54 10/16/25 09:54 Acetaminophen 325 Mg Tablet PO 650 mg Q6H PRN PRN Administration Pain 1-10 or Fever Albuterol Sulfate 2.5 mg 10/15/25 04:17 Albuterol 2.5 Mg/3 Ml Vial.Neb. INHALATION Q2H PRN PRN SOB &/OR WHEEZING Albuterol/Ipratropium 3 ml 10/15/25 06:00 10/19/25 07:31 Ipratropium/Albuterol Sulfate 3 Ml Ampul.Neb INHALATION 3 ml Q6HWA.RT KASH Administration Alprazolam 1 mg 10/17/25 22:00 10/18/25 22:06 Alprazolam 0.5 Mg Tablet PO Not Given QHS KASH Amlodipine Besylate 10 mg 10/18/25 10:00 10/19/25 08:13 Amlodipine 10 Mg Tablet PO 10 mg DAILY KASH Administration Protocol Apixaban 10 mg 10/19/25 10:00 10/19/25 08:13 Apixaban 5 Mg Tablet PO 10/26/25 10:01 10 mg BID KASH Administration Atorvastatin Calcium 80 mg 10/17/25 22:00 10/18/25 21:17 Atorvastatin Calcium 80 Mg Tablet PO 80 mg QHS KASH Administration Buspirone HCl 20 mg 10/15/25 06:00 10/19/25 05:12 Buspirone 5 Mg Tablet PO 20 mg TID KASH Administration Calamine/Phenol 1 applic 10/17/25 22:00 10/19/25 08:13 Menthol/Lanolin/Calamine/Znox 113 Gm Tube TOPICAL 1 applic BID KASH Administration Protocol Carbamazepine 400 mg 10/15/25 10:00 10/19/25 08:12 Carbamazepine 200 Mg Tablet PO 400 mg BID KASH Administration Chlorhexidine Gluconate 1 each 10/18/25 10:00 10/18/25 20:05 Chlorhexidine Gluc 2% Cloth 1 Each Towelette TOPICAL 1 each DAILY KASH Administration Dicyclomine HCl 20 mg 10/18/25 12:39 Dicyclomine 10 Mg Capsule PO Q6H PRN PRN abdominal discomfort Duloxetine HCl 60 mg 10/15/25 10:00 10/19/25 08:13 Duloxetine Hcl 60 Mg Capsule PO 60 mg DAILY KASH Administration Folic Acid 1 mg 10/19/25 08:00 10/19/25 08:13 Folic Acid 1 Mg Tablet PO 1 mg DAILY@0800 KASH Administration Sodium Chloride 250 mls @ 15 mls/hr 10/15/25 00:20 10/16/25 11:14 IV 0 mls/hr .[id number] PRN Infusion Saline Flush Sodium Chloride 250 mls @ 15 mls/hr 10/15/25 00:20 IV .[id number] PRN Additional IVPB Infusion Norepinephrine Bitartrate 8 mg 250 mls @ 9.375 mls/hr 10/15/25 08:00 10/18/25 14:55 / Sodium Chloride CONT INF Not Given .[id number] KASH Protocol 5 MCG/MIN Thiamine HCl 100 mg/ Sodium 51 mls @ 200 mls/hr 10/18/25 10:00 10/18/25 09:38 Chloride IV Infused DAILY KASH Infusion Piperacillin Sod/Tazobactam 50 mls @ 12.5 mls/hr 10/18/25 08:00 10/19/25 05:13 Sod 3.375 gm/ Sodium Chloride IV 12.5 mls/hr Q8 KASH Administration Dexmedetomidine HCl 1,000 mcg/ 250 mls @ 9.125 mls/hr 10/18/25 22:30 10/19/25 05:00 Sodium Chloride CONT INF 1.5 mcg/kg/hr .[id number] KASH 27.4 mls/hr Protocol Titration 0.5 MCG/KG/HR Levetiracetam 500 mg 10/15/25 10:00 10/19/25 08:12 Levetiracetam 500 Mg Tablet PO 500 mg BID KASH Administration Loperamide HCl 2 mg 10/18/25 12:39 Loperamide 2 Mg Capsule PO Q4H PRN PRN DIARRHEA/LOOSE STOOLS Lorazepam 2 mg 10/17/25 13:24 10/17/25 13:35 Lorazepam 2 Mg/Ml Syringe IV 2 mg UD PRN Administration CIWA score >/=15. Protocol Methylprednisolone Sodium Succinate 40 mg 10/16/25 14:00 10/19/25 05:12 Methylprednisolone Sod Succ 40 Mg/Ml Vial IV 40 mg Q8 KASH Administration Metoprolol Succinate 25 mg 10/17/25 11:00 10/18/25 08:19 Metoprolol(Xl)Succ 25 Mg Tablet PO 25 mg DAILY KASH Administration Protocol Multivitamins 1 tablet 10/18/25 10:00 10/19/25 08:13 Multivitamins,Therapeutic Tablet PO 1 tablet DAILY KASH Administration Ondansetron HCl 4 mg 10/14/25 22:36 Ondansetron 4 Mg/2 Ml Vial IV Q8H PRN PRN NAUSEA/VOMITING Ondansetron HCl 8 mg 10/18/25 12:39 Ondansetron 8 Mg Tablet PO Q8H PRN PRN NAUSEA Pantoprazole Sodium 40 mg 10/17/25 22:00 10/19/25 08:12 Pantoprazole Sodium 40 Mg Tablet PO 40 mg BID KASH Administration Phenobarbital 97.2 mg 10/18/25 13:00 10/19/25 08:12 Phenobarbital 32.4 Mg Tablet PO 10/22/25 20:59 97.2 mg Q4H KASH Administration Taper Sodium Chloride 10 - 40 ml 10/15/25 00:20 10/18/25 08:27 0.9% Saline Lock 10 Ml Syringe IV 20 ml UD PRN Administration SALINE FLUSH Sucralfate 1 gm 10/17/25 16:00 10/19/25 08:12 Sucralfate 1 Gm Tablet PO 1 gm BIDAC KASH Administration Trazodone HCl 100 mg 10/18/25 12:39 Trazodone 100 Mg Tablet PO QHS PRN INSOMNIA Lab / Micro Data 10/19/25 05:08 10/19/25 05:08 Labs: Laboratory Results - last 24 hr 10/18/25 14:05: Iron 63, TIBC 182 L, Iron Saturation 34.7, Unsaturated IBC 119 L , Vitamin B12 > 2000 H, Serum Folate 13.30, TSH 1.940 10/19/25 05:08: WBC 7.4, RBC 2.59 L, Hgb 8.5 L, Hct 25.2 L, MCV 97.3, MCH 32.8 H , MCHC 33.7, RDW Std Deviation 51.8 H, RDW Coeff of Sanju 14.6, Plt Count 95 L, MPV 10.3, Immature Gran % (Auto) 1.900 H, Neut % (Auto) 69.6, Lymph % (Auto) 20.5, [place] % (Auto) 7.3, Eos % (Auto) 0.3, Baso % (Auto) 0.4, Absolute Neuts (auto) 5.2, Absolute Lymphs (auto) 1.52, Nucleated RBC % 0.4, Differential Comment SCANNED, Reactive Lymphocytes RARE, Sodium 148 H, Potassium 3.8, C hloride 117 H, Carbon Dioxide 21.3, Anion Gap 9, BUN 37 H, Creatinine 1.01, Estim Creat Clear Calc 51.51, Est GFR (MDRD) Non-Af 63, BUN/Creatinine Ratio 36.2 H, Glucose 113 H, Calcium 8.6 Micro: Microbiology 10/14/25 21:29 Blood Culture (Wb) - Right Forearm Blood Culture - Preliminary Haemophilus influenzae 10/14/25 20:15 Blood Culture (Wb) - Venous Blood Culture - Final Haemophilus influenzae ABG Data ABG results: ABG 10/18/25 12:23 Specimen Type ART Sample Site R Radial pH 7.36 Bicarbonate Actual 20.3 L Total CO2 21 Base Excess -5 L O2 Saturation 93 L O2 % 3.0 ABG pCO2 35.8 ABG pO2 69 L O2 Delivery Device Cannula Vent Mode Not entered Imaging Radiology Impression Lung Scan-VQ NM 10/17/25 10:07 IMPRESSION: HIGH PROBABILITY OF ACUTE PULMONARY EMBOLISM. Reading Location: [id number] Assessment and Plan . Assessment and plan: Critical Care Time: The entirety of this encounter was done via Telemedicine Subjective Subjective S: Pt seen and examined. No acute events. Currently on 3L NC. Precedex @ 1.5 PE: General: obese acute on chronically ill appearing female; +NC HEENT: anicteric Sclera, nl nose; supple neck, no masses Cardiovascular: S1/S2; No rubs, gallops; no displaced PM Respiratory: diminished with scattered wheezes/rhonchi; no crackles Abdominal: Non-tender; Non distended; hypoBS x 4; No Hepatosplenomegaly Extremities: Warm, well perfused; No clubbing, cyanosis; capillary refill < 2 sec Skin: intact, no rashes Neurological: awake but fatigued/lightly sedated; A&Ox3; no gross deficits motor appreciated A/P: #Acute on chronic hypoxemic hypercapnic respiratory failure #Septic shock #COVID19 PNA with ?secondary bacterial PNA #High probability PE based on VQ scan #Elevated troponin/NSTEMI type II #Tobacco abuse #Seizure disorder #Anxiety/depression #Hx AVM #Iron-deficiency anemia -Cont NIV; can attempt breaks on HHFNC as tolerated; titrate FiO2 to keep sats ~90-92% --> appears resolved; stable on 2-3L; encourage NIV use qHS for now -SP sepsis fluids; cont NEPi to keep MAP > 65 --> off pressors >48h -Cont emp IV ABx- Zosyn; F/U Cx --> added vanc 10/16, WBCs now improving; Cx NGTD -Cont remdes; monitor renal function/LFTs -Cont methylpred; cont nebs -Cont emp hep gtt x48h; LE dopplers neg for DVT; unable to get CTA to exclude PE due to RICH --> PLTs dropping, low degree of suspicion for PE; will hold hep gtt & get VQ scan; if low probability then would leave off A/C and if intermed or high prob can restart emp A/C with renally dosed Eliquis vs LMWH pending continued improvement in renal function at which point can get CTA; low probabilty HIT --> VQ high prob PE and given renally dosed LMWH yesterday afternoon; sCr improving so would target CTA chest when possible in next few days and ultimately transition to Eliquis --> sCr normalized; transitioned to Eliquis; can check CTA in 1-2d to allow RICH to be fully resolved -Monitor blood counts/PLTs --> PLTs now improving -Cont home AEDs PO diet Eliquis Very guarded prognosis DNR/DNI Gianluca Barry MD CCT: 50 min Entirety of encounter done via telemedicine Vitals, labs, diagnostics reviewed in EMR. This patients illness acutely impairs one or more vital organ systems such that there is a high probability of imminent or life threatening deterioration in the patient?s condition. I have used high-complexity decision making to assess, manipulate, & support vital systems to treat single or multiple vital organ system failure &/or prevent further life threatening deterioration of the patient?s condition. Time of note does not reflect time of service.
[2025-10-19] MEDS: Thiamine Hydrochloride 100 MG in 0.9% Normal Saline (50mL Bag) 50 ML 200 MG IV (09:27)
--- NOTE | 2025-10-19 12:31 | CT_ITS ---
PROCEDURE: BRAIN/HEAD WITHOUT CONTRAST 10/19/2025 REASON FOR EXAM: Clinical history of confusion TECHNIQUE: Procedure Code: CTBR Modality: CT Procedure: BRAIN/HEAD WITHOUT CONTRAST Coronal and Sagittal reconstruction series were provided. One or more dose reduction techniques were used (e.g., Automated exposure control, adjustment of the mA and/or kV according to patient size, use of iterative reconstruction technique. RADIATION DOSE SUMMARY: DLP: 745.49 mGycm COMPARISON: CT head 03/23/2024 FINDINGS: There is asymmetric sulcal hyperdensity in the right frontal lobe compatible with trace acute subarachnoid hemorrhage (axial series 2, image 22 and sagittal series image 19). No acute infarct. Redemonstrated punctate calcifications in the cerebrum likely reflect prior infection. No significant mass effect or brain herniation. The ventricular system and sulci/fissures are within normal limits of size and configuration for the patient's stated age. The basal cisterns are patent. The mastoid air cells are clear. The paranasal sinuses are predominantly clear. Bilateral ocular lens replacements. The calvarium appears intact. Atherosclerotic calcification of the carotid siphons. CT/Brain/Head without Contrast IMPRESSION: Trace acute subarachnoid hemorrhage in the right frontal lobe. Communication notice: The impression above was communicated by Dr. Violet Salas by telephone to Dr. Lia Loza on 10/19/2025 at 3:00 pm with readback verification. Reading Location: [facility]
--- NOTE | 2025-10-19 16:30 | CT_ITS ---
PROCEDURE: CTA CHEST W/WO CONTRAST 10/19/2025 REASON FOR EXAM: PE TECHNIQUE: Procedure Code: [id number] Modality: CT Procedure: CTA CHEST W/WO CONTRAST Multiplanar Sagittal and Coronal images were obtained. One or more dose reduction techniques were used (e.g., Automated exposure control, adjustment of the mA and/or kV according to patient size, use of iterative reconstruction technique). RADIATION DOSE SUMMARY: DLP: 484.16 mGycm FINDINGS: The lower neck is unremarkable. Heart: The heart size is unremarkable. There is coronary artery atherosclerosis. Pulmonary Vessels: No pulmonary embolism. Hardware: No orthopedic hardware. Lymph nodes: No mediastinal lymphadenopathy. Lungs and Airways: There are diffuse emphysematous changes. There are mild ground-glass infiltrates in the left upper lobe and right lower lobe, which may be secondary to multifocal or atypical pneumonia. There are no consolidations. There is left basilar atelectasis, likely postobstructive. Pleura: No pleural effusions or pneumothoraces. Upper Abdomen: The liver contour is nodular. Bones: Degenerative changes of the thoracic spine. CT/CTA Chest W/WO Contrast IMPRESSION: Mild ground-glass infiltrates in the left upper lobe and right lower lobe, sugg estive of multifocal or atypical pneumonia. Left basilar atelectasis, likely postobstructive. Debris in the bronchi supply ing the left lower lobe. No pulmonary embolism. Reading Location: [id number]
--- NOTE | 2025-10-19 18:38 | DS.PCM_ITS ---
Providers Date of Admission: 10/14/25 Primary Care Physician: Dr. Geovani Mancia MD Consultations 10/15/25 07:20 Consult: Mathematics Academic Chair / Pulmonary Medicine Routine Consulting Provider: Intensivists/Pulmonary Med Reason for Consult: sepsis EMERGENT Consult: No MD Notified: Yes Date Notified: 10/15/25 Time Notified: 07:20 Method of Notification: Verbal Reason For Visit: ACUTE RESPIRATORY FAILURE & SHOCK Diagnosis Discharge Diagnosis (1) Acute on chronic hypoxic respiratory failure: Status: Chronic Code(s): J96.21 - Acute and chronic respiratory failure with hypoxia (2) Sepsis: Status: Acute Code(s): A41.9 - Sepsis, unspecified organism Qualifiers: Sepsis type: sepsis due to unspecified organism Sepsis acute organ dysfunction status: with acute organ dysfunction Severe sepsis acute organ dysfunction type: acute respiratory failure Acute respiratory failure type: w ith hypoxia Severe sepsis shock status: without septic shock Qualified Code(s): A41.9 - Sepsis, unspecified organism; R65.20 - Severe sepsis without septic shock; J96.01 - Acute respiratory failure with hypoxia (3) Community acquired pneumonia: Status: Acute Code(s): J18.9 - Pneumonia, unspecified organism Qualifiers: Laterality: left Lung location: lower lobe of lung Qualified Code(s): J18.9 - Pneumonia, unspecified organism (4) COVID-19: Status: Acute Code(s): U07.1 - COVID-19 (5) Acidosis, lactic: Status: Acute Code(s): E87.20 - Acidosis, unspecified Plan Subarachnoid hemorrhage * unclear mechanism * anticoagulation dc'd * pt's case [facility]. Transfer pending. Sepsis with shock. * POA * refer to H+P for criteria * as patient has at least 2 organ dysfunction (RICH and hypotension) due to infection which is pneumonia. * Has not required pressor yet responded to 2 L normal saline given in ED so we cannot call it septic shock despite the lactate of 9. Limited fluid resuscitation because of potential risk of worsening respiratory status and she is a DO NOT INTUBATE. * worsening hypotension. * CCM following. Norepinephrine weaned off. Pneumonia * Complicated by COVID-19 * abx w pip/tazo (cefalosporin allergy) * MRSA negative, strep and legionella antigens negative. BCx pending. SCx yet to be collected. * likely H flu given positive blood cultures. Bacteremia * H. flu * continue pip/tazo. dc vanc * consult ID for length of abx. Acute PE * ruled out high probability on VQ. CTA chest negative for PE. * anticoagulation dc'd given SAH. Acute hypoxic respiratory failure * improved * 2/2 pneumonia and COVID and PE. Elevated D-dimer (3.3). Cannot rule VTE. RICH limits use of contrast, * VQ ordered showing high probability of PE. * Changed to therapeutic enoxaparin. * Duplex LE negative. encephalopathy * became more confused on 10/17, placed back on BiPAP. Patient was hallucinating (see a small child) * started on dexmedetomidine gtt. concern for alcohol withdrawal as patient has reported h/o alcohol abuse. * improved, still confused. * started on phenobarbital * check head CT given ongoing confusion. anemia: * trending down during hospitalization * check iron, folate and TSH WNL. B12 elevated. * hemoccult pending * currently stable. Unless ongoing drops, would defer GI evaluation to outpatient. * continue anticoagulation for now. Thrombocytopenia * began shortly after admission dropping from 258 to 180, has since dropped nadiring at 79. This clinically not due to HIT, but more likely septic shock and VTE * continue to monitor Resolved/stable issues: * Metabolic acidosis: resolved. Patient received an amp of NaHCO3 and recheck ABG showed improvement. Will hold off on additional ABGs unless condition changes. * RICH: Creatinine from 09/08/2025 was 0.59, down to 1.01 (from peak of 3.16). US showed no hydronephrosis. FEUrea 22.25% consistent with prerenal azotemia. Patient received 500cc IVF infusion 10/16. * COVID 19, acute, severe. completed remdesevir. Started on dexamethasone, then CCM changed to methylprednisolone. * Elevated troponins: likely demand ischemia from shock. Echo shows an EF of 75%. * Left wrist fracture: sustained on the and splint placed on the (separate ED visit). xray showed minimally comminuted impacted fracture of the distal radius extending to the radiocarpal joint. DOMI MENDIETA. Patient had splint placed in ED on the , but when she presented for this admission (on the ), it was not on. bryan Velazquez Dr. for velcro splint and follow up as outpt. Chronic conditions: * HTN: furosemide, lisinopril, spironolactone held given RICH and shock. Amlodipine held given shock. 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 VTE prophylaxis: not indicated while on anticoagulation Medications at Discharge Home Medications alprazolam 1 mg tablet (Xanax) 1 mg PO QHS anxiety 07/30/20 amlodipine 10 mg tablet 10 mg PO DAILY blood pressure 07/30/20 atorvastatin 80 mg tablet 80 mg PO QHS cholesterol 07/30/20 albuterol sulfate 90 mcg/actuation aerosol inhaler (Proventil HFA) 2 puff inhalation Q6H PRN COPD 06/17/21 carbamazepine 200 mg tablet,extended release,12 hr 400 mg PO BID 03/23/24 ondansetron HCl 4 mg tablet 4 mg PO BID PRN nausea/vomiting 03/23/24 multivitamin (Daily Multi-Vitamin tablet) 1 tab PO DAILY #30 tabs 03/26/24 spironolactone 25 mg tablet 25 mg PO DAILY 04/18/24 buspirone 10 mg tablet 20 mg PO TID anxiety 03/20/25 duloxetine 60 mg capsule,delayed release 60 mg PO BID 03/20/25 ergocalciferol (vitamin D2) 1,250 mcg (50,000 unit) capsule 1,250 mcg PO QWEEK 03/20/25 perphenazine 4 mg tablet 4 mg PO DAILY 03/20/25 umeclidinium 62.5 mcg/actuation blister powder for inhalation (Incruse Ellipta) 1 inh inhalation DAILY 03/20/25 budesonide-formoterol HFA 160 mcg-4.5 mcg/actuation aerosol inhaler (Symbicort) 1 inh inhalation BID #10.2 grams 03/25/25 furosemide 20 mg tablet 20 mg PO BID #120 tabs 03/25/25 potassium chloride 20 mEq tablet,extended release(part/cryst) 20 meq PO DAILY #60 tabs 03/25/25 sucralfate 1 gram tablet (Carafate) 1 g PO BID 8 weeks #112 tabs 03/25/25 metoprolol succinate 25 mg tablet,extended release 24 hr 25 mg PO QDAY 07/07/25 omeprazole 40 mg capsule,delayed release 40 mg PO BID 07/07/25 thiamine HCl (vitamin B1) 50 mg tablet 50 mg PO QDAY 07/07/25 calcium 600 mg (as carbonate)-vitamin D3 5 mcg (200 unit) tablet (Calcium 600 + D(3)) 1 tab PO DAILY 07/21/25 cyanocobalamin (vitamin B-12) 100 mcg tablet (Vitamin B-12) 100 mcg PO DAILY 07/21/25 ipratropium 0.5 mg-albuterol 3 mg (2.5 mg base)/3 mL nebulization soln 3 ml continuous nebulization 4X/DAY PRN PRN wheezing/sob 07/21/25 lisinopril 20 mg tablet 20 mg PO BID 07/21/25 tramadol 50 mg tablet 50 mg PO BID PRN severe pain 7-10 07/21/25 hydrocodone-acetaminophen 5-325mg 5mg-325mg 1 tab PO Q4H PRN PRN Pain 2 days #10 TABLETS 10/13/25 levetiracetam 500 mg tablet 1,000 mg PO BID 10/14/25 OXYGEN - Supplemental ([facility] INFORMATIONAL USE ONLY) Pulmonary Information 10/15/25 Hospital Course Operations None Procedures 2-D Echocardiogram Summary of Care Provided Hospital Course: Greater than 40 minutes spent on discharge. This is a 60 year old female that presented with septic shock and respiratory failure. She required BiPAP and norepinephrine. Also, had RICH. She was found to have COVID-19 and started on remdesivir and steroids. She was on antibiotics with pip/tazo and vancomycin, vancomycin eventually dropped when it was found that she had H. flu bacteremia, presumably from the pneumonia. She underwent a VQ scan that showed high-probability of PE and was started on anticoagulation, initially with heparin, then apixaban. She remained confused during admission and there were concerns for alcohol withdrawal and she was started on a dexmedetomidine gtt and phenobarbital. I ordered a head CT today as one had not been during her admission and also with an ED visit on the , where it was found that she had a left radial fracture. The head CT showed a trace acute subaranoid hemorrhage. The anticoagulation was promptly held and I reached out to [facility] for transfer. I spoke with ICU transfer team who accepted and recommended a CTA chest as kidney function had improved. A CTA chest was performed and it did not show a PE and showed mild GG infiltrate CYNDEE and RLL. Patient would be transferred in stable condition. Weight / BMI Weight Weight: 73 kg Body Mass Index (BMI) 31.4 ABG / Lab / Microbiology Data 10/19/25 05:08 10/19/25 05:08 Laboratory: Laboratory Results - last 24 hr 10/19/25 05:08: WBC 7.4, RBC 2.59 L, Hgb 8.5 L, Hct 25.2 L, MCV 97.3, MCH 32.8 H , MCHC 33.7, RDW Std Deviation 51.8 H, RDW Coeff of Sanju 14.6, Plt Count 95 L, MPV 10.3, Immature Gran % (Auto) 1.900 H, Neut % (Auto) 69.6, Lymph % (Auto) 20.5, Letcher % (Auto) 7.3, Eos % (Auto) 0.3, Baso % (Auto) 0.4, Absolute Neuts (auto) 5.2, Absolute Lymphs (auto) 1.52, Nucleated RBC % 0.4, Differential Comment SCANNED, Reactive Lymphocytes RARE, Sodium 148 H, Potassium 3.8, C hloride 117 H, Carbon Dioxide 21.3, Anion Gap 9, BUN 37 H, Creatinine 1.01, Estim Creat Clear Calc 51.51, Est GFR (MDRD) Non-Af 63, BUN/Creatinine Ratio 36.2 H, Glucose 113 H, Calcium 8.6 Microbiology: Microbiology 10/14/25 21:29 Blood Culture (Wb) - Right Forearm Blood Culture - Final Haemophilus influenzae 10/14/25 20:15 Blood Culture (Wb) - Venous Blood Culture - Final Haemophilus influenzae 10/15/25 08:30 Urine Catheter - Catheter Urine Culture - Final Culture exhibits no growth. 10/15/25 04:33 Nasal Secretion MRSA (PCR) - Final 10/14/25 00:22 Urine Catheter - Valenzuela Legionella Antigen - Final 10/14/25 00:22 Urine Catheter - Valenzuela Streptococcus pneumoniae Antigen (M - Final 10/14/25 20:24 Mucosa - Nose SARS-CoV-2, Influenza & RSV (PCR) - Final SARS-CoV-2 (COVID 19 PCR) Radiography Diagnostic Testing: Radiology Impression Brain CT 10/19/25 12:31 IMPRESSION: Trace acute subarachnoid hemorrhage in the right frontal lobe. Communication notice: The impression above was communicated by Dr. Violet Salas by telephone to Dr. Mason Loza on 10/19/2025 at 3:00 pm with readback verification. Reading Location: [id number] Chest CTA 10/19/25 16:30 IMPRESSION: Mild ground-glass infiltrates in the left upper lobe and right lower lobe, suggestive of multifocal or atypical pneumonia. Left basilar atelectasis, likely postobstructive. Debris in the bronchi supplying the left lower lobe. No pulmonary embolism. Reading Location: [facility] D/C Instructions DC O2, CPAP, BIPAP Needs Home O2 Discharge instructions: Yes Type of respiratory needs?: Oxygen Oxygen frequency: Continuous Continuous oxygen liters per minute: 3 DC home with Oxygen: No Meaningful Use Info Meaningful Use Meaningful Use Diagnoses (Choose all that apply): None applicable Discharge Plan Admission Admit Date/Time: 10/14/25 22:28 Primary Reason for Your Visit: subarachnoid hemorrhage Attending Provider: Mason Loza Primary Care Provider: Geovani Mancia Consulting Providers: Mercedes Marquez; Jass Eugene; Manuel Barnes; Jalen Bass; Daniel Wilson; Mo Sanchez; Troy Wolf; Evelin Banuelos; Trino Cotter; Dede Sanchez; Kody Coronado; Denia Hurtado; Abhijeet Doran; Khurram Dumont; Mamta Stephenson; Freddy Benitez; Russell Michael; Wilfredo Donahue; Jana Garcia; Mariana Cardoso; Alisha Vital; Denae Rodas; Jimmy Lujan; Clark San; Jed Mancini; Elis Nelson; Niyah Bourne; Lennie Pretty; Jed Hannah; Jose Charles; Klaus Lanier; Brian Romero; Eric Tavares; Gianluca Barry; Praneeth Sellers; Dimitris Motley; Shilpa Snyder; Nataly Adam; Zen Quinn; Jose Ritter; Anjum,Silver; Jack Luong; Jalen Clay; Mark Bone Discharge Orders/Prescriptions Prescriptions: No Action albuterol sulfate [Proventil HFA] 90 mcg/actuation HFA aerosol inhaler 2 puff inhalation Q6H PRN (Reason: COPD) thiamine HCl (vitamin B1) 50 mg tablet 50 mg PO QDAY metoprolol succinate 25 mg tablet extended release 24 hr 25 mg PO QDAY omeprazole 40 mg capsule,delayed release(DR/EC) 40 mg PO BID atorvastatin 80 mg tablet 80 mg PO QHS amlodipine 10 MG tablet 10 mg PO DAILY alprazolam [Xanax] 1 MG tablet 1 mg PO QHS ondansetron HCl 4 mg tablet 4 mg PO BID PRN (Reason: nausea/vomiting) carbamazepine 200 mg tablet extended release 12 hr 400 mg PO BID multivitamin [Daily Multi-Vitamin] Tablet 1 tab PO DAILY Qty: 30 0RF spironolactone 25 mg tablet 25 mg PO DAILY lisinopril 20 mg tablet 20 mg PO BID tramadol 50 mg tablet 50 mg PO BID PRN (Reason: severe pain 7-10) calcium carbonate-vitamin D3 [Calcium 600 + D(3)] 600 mg-5 mcg (200 unit) tablet 1 tab PO DAILY ipratropium-albuterol 0.5 mg-3 mg(2.5 mg base)/3 mL solution for nebulization 3 ml continuous nebulization 4X/DAY PRN PRN (Reason: wheezing/sob) cyanocobalamin (vitamin B-12) [Vitamin B-12] 100 mcg tablet 100 mcg PO DAILY levetiracetam 500 mg tablet 1,000 mg PO BID OXYGEN - Supplemental ([facility] INFORMATIONAL USE ONLY) Patient Comments: per pt, wears 2.5L NC continuously. DME: [employer] buspirone 10 mg tablet 20 mg PO TID Patient Comments: pt states only takes bid duloxetine 60 mg capsule,delayed release(DR/EC) 60 mg PO BID ergocalciferol (vitamin D2) 1,250 mcg (50,000 unit) capsule 1,250 mcg PO QWEEK perphenazine 4 mg tablet 4 mg PO DAILY Incruse Ellipta 62.5 mcg/actuation blister with device 1 inh inhalation DAILY potassium chloride 20 mEq Tablet,Er Particles/Crystals 20 meq PO DAILY Qty: 60 0RF furosemide 20 mg tablet 20 mg PO BID Qty: 120 0RF sucralfate [Carafate] 1 gram tablet 1 g PO BID 56 Days Qty: 112 0RF budesonide-formoterol [Symbicort] 160-4.5 mcg/actuation HFA aerosol inhaler 1 inh inhalation BID Qty: 10.2 0RF hydrocodone-acetaminophen 5-325 mg tablet 1 tab PO Q4H PRN PRN (Reason: Pain) 2 Days Qty: 10 0RF Referrals / Follow Up: Geovani Mancia MD [Primary Care Provider, Family Practice] Jose Gallegos DO [Med Staff - Active Staff, [facility]] - Within 2 Weeks Referral Note: left wrist fracture Disposition Disposition (needs filled in before D/C Order can be placed): Acute Care Hospital Charges/Coding Visit Charges Inpatient E&M: 01202 Disch Hosp >30min
--- NOTE | 2025-10-19 20:34 | NURSING ---
[facility] Transport Team called notifying that the unit that was in route to transport patient needed to be diverted and they would call back with a new ETA for another unit.
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
[2025-10-20] VITALS: BP 148/54; PULSE 60; PULSE 62; RESP 19; TEMP 37.5; O2SAT 94
[2025-10-20 00:39] VITALS: BP 148/54; PULSE 60; RESP 19; TEMP 37.5; O2SAT 94
--- NOTE | 2025-10-20 00:42 | NURSING ---
Pt orders to transfer to [facility]. Call received around 1929 that pt has bed on CV[facility] unit, bed 3233 and transport would arrive in 45 minutes to transport pt. Call was then received that transport was diverted for more critically ill pts. ICU team tried calling multiple transport options and re-spoke with [facility] transport team about the urgency to transport pt. pt is currently still in ICU with no estimated time of departure to new facility.
[2025-10-20 01:00] VITALS: BP 165/62; PULSE 69; RESP 20; TEMP 37.5; O2SAT 95
[2025-10-20] MEDS: dexMEDEtomidine 1,000 MCG in 0.9% Normal Saline (250mL Bag) 240 ML 27.4 MCG CONT INF (01:45)
[2025-10-20 02:00] VITALS: BP 164/74; PULSE 63; RESP 20; TEMP 37.6; O2SAT 93
--- NOTE | 2025-10-20 02:16 | NURSING ---
provider contacted about pt having high systolic BP. medication placed in MAR to be given. Orders also placed for Q2 neuro checks until pt is transferred out of [facility] ICU to new facility. Delayed transfer- see previous nursing note. Current ETA of transport is 0330 per [facility] transport team.
--- NOTE | 2025-10-20 02:57 | NURSING ---
[facility] transport team arrived to floor at this time.
--- NOTE | 2025-10-20 03:23 | NURSING ---
Transport team arrived on unit at 0257. Vital signs stable, belongings reviewed with pt and secured with transport team. discharge paperwork completed. pt left unit at 0314.
== END 2025-10-20 03:14 | disposition short-term general hospital (02) | DRG 720 ==
LOC: ED 21:56 → ICU 23:07
PROVIDERS: Admitting Provider Internal Medicine; Emergency Provider Emergency Medicine; PCP Family Medicine
DX: A41.9 Sepsis, unspecified organism (principal); I60.9 Nontraumatic subarachnoid hemorrhage, unspecified; J96.22 Acute and chronic respiratory failure with hypercapnia; R65.21 Severe sepsis with septic shock; J96.21 Acute and chronic respiratory failure with hypoxia; J12.82 Pneumonia due to coronavirus disease 2019; G93.40 Encephalopathy, unspecified; J44.0 Chronic obstructive pulmonary disease with (acute) lower respiratory infection; G40.909 Epilepsy, unspecified, not intractable, without status epilepticus; I10 Essential (primary) hypertension; F32.A Depression, unspecified; D50.9 Iron deficiency anemia, unspecified; F10.10 Alcohol abuse, uncomplicated; E66.811 Obesity, class 1; E87.20 Acidosis, unspecified; N17.9 Acute kidney failure, unspecified; M79.7 Fibromyalgia; J13 Pneumonia due to Streptococcus pneumoniae; J44.1 Chronic obstructive pulmonary disease with (acute) exacerbation; F41.9 Anxiety disorder, unspecified; S82.832A Other fracture of upper and lower end of left fibula, initial encounter for closed fracture; W19.XXXA Unspecified fall, initial encounter; U07.1 COVID-19; Z66 Do not resuscitate; Z79.51 Long term (current) use of inhaled steroids; Z79.899 Other long term (current) drug therapy; Z68.31 Body mass index [BMI] 31.0-31.9, adult
CPT/HCPCS: 36569; 36600; 70450; 71045; 71275; 73110; 76770; 78597; 80048; 80053; 80076; 81001; 82140; 82570; 82607; 82746; 82803; 83540; 83550; 83605; 83735; 83880; 84100; 84145; 84300; 84443; 84484; 84540; 85025; 85379; 85610; 85730; 87040; 87077; 87086; 87449; 87631; 87641; 93005; 93306; 93970; 94002; 94003; 94640; 94762; 96374; 96375; 97162; 97166; 99252; 99285; 99406; A9540; Q9957; Q9967; A4216; G0463; J0248; J2405